=== PATIENT | female | born 1965 | race Caucasian/White ===

== ENCOUNTER 2019-06-16 12:48 | Emergency (ER) | payer OTHER ==
[2019-06-16 13:01] VITALS: BP 128/85; PULSE 94; RESP 18; TEMP 97.7
[2019-06-16] MEDS ORDERED: LIDOCAINE 5% PATCH TOPICAL STA (14:04)
[2019-06-16] MEDS ORDERED: CYCLOBENZAPRINE 10 MG TAB PO STA (14:05)
[2019-06-16] MEDS ORDERED: KETOROLAC 30 MG/ML 1 ML VIAL IM STA (14:05)
--- NOTE | 2019-06-16 14:07 | ED ---
Back Pain HPI - General Chief Complaint: Back Pain/Injury Stated Complaint: Back pain, neck pain Time Seen by Provider: 06/16/19 13:28 Source: patient Limitations: no limitations - History of Present Illness Initial Comments: Patient is a 53-year-old female with history of neck pain presenting to the emergency department with a chief complaint of back pain. Patient reports rec ently sleeping on the floor and is not complaining of left lower back pain that radiates along the posterior aspect of the left lower extremity to the foot. Patient reports pain is exacerbated with ambulation alleviated whenever she is laying on her right side. Patient denies urinary or bowel incontinence. Denies saddle anesthesia. No red flags. Denies taking any medication to alleviate his symptoms. The symptoms of initial been going on for about a week, on and off. Denies trauma to the region. Denied chest pain, shortness of breath, abdominal pain, extremity weakness or paresthesias. - Related Data Previous Rx's Medication Instructions Recorded Albuterol Inhaler [Ventolin Hfa 1 puff INHALATION RT-TID PRN #200 12/22/13 Inhaler] dose Citalopram Hydrobromide [CeleXA] 10 mg PO DAILY #15 tab 12/22/13 Sulfamethox-Tmp 800-160Mg [Bactrim 1 each PO BID #8 tab 12/22/13 DS 800-160 mg] carBAMazepine [Carbatrol] 100 mg PO BID #30 cpmp.12hr 12/22/13 chlordiazePOXIDE HCl [Librium] 5 mg PO BID #6 cap 12/22/13 Cyclobenzaprine [Flexeril] 5 mg PO TID PRN #15 tablet 06/16/19 Allergies Allergy/AdvReac Type Severity Reaction Status Date / Time Penicillins Allergy Rash/Hives Verified 06/16/19 12:57 sertraline HCl [From Zoloft] Allergy Rash/Hives Verified 06/16/19 12:57 Review of Systems ROS Statement: Those systems with pertinent positive or pertinent negative responses have been documented in the HPI. ROS Other: All systems not noted in ROS Statement are negative. Past Medical History Past Medical History: Asthma, Hypertension, Seizure Disorder History of Any Multi-Drug Resistant Organisms: None Reported Past Surgical History: Section, Tubal Ligation Additional Past Surgical History / Comment(s): ankle, exploratory lap Past Psychological History: Anxiety, Depression Smoking Status: Current every day smoker Past Alcohol Use History: Daily, Heavy Past Drug Use History: Marijuana General Exam Limitations: no limitations General appearance: alert, in no apparent distress Head exam: Present: atraumatic, normocephalic, normal inspection Eye exam: Present: normal appearance, PERRL, EOMI Pupils: Present: normal accommodation ENT exam: Present: normal exam, mucous membranes moist Neck exam: Present: normal inspection, full ROM Respiratory exam: Present: normal lung sounds bilaterally Cardiovascular Exam: Present: regular rate, normal rhythm, normal heart sounds GI/Abdominal exam: Present: soft. Absent: distended, tenderness, guarding Extremities exam: Present: normal inspection, full ROM Back exam: Present: normal inspection, full ROM, paraspinal tenderness (Left paraspinal tenderness). Absent: CVA tenderness (R), CVA tenderness (L), vertebral tenderness Neurological exam: Present: alert, oriented X3 Psychiatric exam: Present: normal affect, normal mood Skin exam: Present: warm, dry, intact, normal color Course Vital Signs 06/16/19 12:58 Temperature 97.7 F Pulse Rate 94 Respiratory 18 Rate Blood Pressure 128/85 O2 Sat by Pulse 97 Oximetry Medical Decision Making - Medical Decision Making Patient is a 53-year-old female with history of back pain presenting to the emergency department with chief complaint of back pain. On exam patient does have tenderness in the left lumbosacral region that appears to be radiating to the heel along the posterior aspect. Patient has a positive leg raise test left side. Suspect the patient to have sciatica type symptoms. This was a gradual onset. Patient given Tylenol, Lidoderm patch and Flexeril. Reevaluation mariluz ent reports improvement in her symptoms that she is able to ambulate to a certain extent. Patient will be discharged with low back exercises advised to follow-up with orthopedics if symptoms not improved. Patient also be given prescription of Flexeril. She was advised not to drive or operate heavy machinery when taking medication. Strict return parameters were thoroughly discussed with patient was understanding and agreeable. Patient advised to follow-up with orthopedics if symptoms not improved. Case discussed with physician. Disposition Clinical Impression: Mechanical back pain Disposition: HOME SELF-CARE Condition: Stable Instructions (If sedation given, give patient instructions): Acute Low Back Pain (ED), Lower Back Exercises (ED), Core Strengthening Exercises (ED) Additional Instructions: Please take prescribed medication as directed. Please follow up with orthopedics. Please return to emergency department if symptoms worsen. Prescriptions: Cyclobenzaprine [Flexeril] 5 mg PO TID PRN #15 tablet PRN Reason: Muscle Spasm Is patient prescribed a controlled substance at d/c from ED?: No Referrals: Theodore Arceo MD [Primary Care Provider] - 1-2 days Braydon Moreno MD [STAFF PHYSICIAN] - 1-2 days Time of Disposition: 14:06
== END 2019-06-16 16:10 | disposition home or self-care (01) ==
LOC: EC 12:48
DX: M54.5 Low back pain (principal); M79.672 Pain in left foot; M79.605 Pain in left leg; F17.200 Nicotine dependence, unspecified, uncomplicated; Z88.0 Allergy status to penicillin; Z88.8 Allergy status to other drugs, medicaments and biological substances
CPT/HCPCS: 99283; 96372; J1885

== ENCOUNTER 2019-07-28 13:29 | Inpatient (IN) | payer OTHER ==
[2019-07-28] MEDS ORDERED: SODIUM CHLORIDE 0.9% 1,000 ML IV STA (14:05)
[2019-07-28] MEDS ORDERED: MORPHINE SULFATE 2 MG/ML SYRINGE IVP STA (14:06)
[2019-07-28] MEDS ORDERED: KETOROLAC 30 MG/ML 1 ML VIAL IVP STA (14:16)
--- NOTE | 2019-07-28 14:19 | ED ---
Seizure HPI - General Chief Complaint: Seizure Stated Complaint: Seizure Time Seen by Provider: 07/28/19 13:59 Source: patient Mode of arrival: EMS Limitations: no limitations - History of Present Illness Initial Comments: 53-year-old female patient with past medical history significant for seizures and coronary artery disease presents to the emergency department today for evaluation after having a seizure. Family member who is present states that the seizure lasted for about a minute. States that she had generalized body shaking and was not responding to his questions. Patient was very tired after the episode. She did not lose bowel or bladder control. Patient states she did bite her tongue. Patient states that she hasn't had her medications in the last 6 months. States that she used to take Lamictal and saw Dr. Garnica for neurology. Patient is currently reporting headache. States that she usually gets a severe headache after having her seizures. Patient does admit to drinking alcohol today. States she drinks alcohol on a daily basis. Patient denies any recent rash, fever, chills, shortness breath, chest pain, abdominal pain, nausea, vomiting, diarrhea, constipation, back pain, numbness, tingling, dizziness, weakness, hematuria, dysuria, urinary urgency, urinary frequency, visual changes, or any other complaints. - Related Data Home Medications Medication Instructions Recorded Confirmed No Known Home Medications 07/28/19 07/28/19 Allergies Allergy/AdvReac Type Severity Reaction Status Date / Time Penicillins Allergy Rash/Hives/ Verified 07/28/19 17:37 Swelling sertraline HCl [From Zoloft] Allergy Rash/Hives/ Verified 07/28/19 17:37 Swelling Review of Systems ROS Statement: Those systems with pertinent positive or pertinent negative responses have been documented in the HPI. ROS Other: All systems not noted in ROS Statement are negative. Past Medical History Past Medical History: Asthma, Hypertension, Seizure Disorder History of Any Multi-Drug Resistant Organisms: None Reported Past Surgical History: Section, Tubal Ligation Additional Past Surgical History / Comment(s): ankle, exploratory lap Past Psychological History: Anxiety, Depression Smoking Status: Current every day smoker Past Alcohol Use History: Daily, Heavy Past Drug Use History: Marijuana General Exam Limitations: no limitations General appearance: alert, in no apparent distress, other (This is a well- developed, well-nourished, nontoxic-appearing adult female patient in no acute distress. Vital signs upon presentation are temperature 97.9F, pulse 85, respirations 16, blood pressure 160/102, pulse ox 97% on room air.) Eye exam: Present: normal appearance, PERRL, EOMI. Absent: scleral icterus, conjunctival injection, periorbital swelling ENT exam: Present: normal exam, normal oropharynx, mucous membranes moist Respiratory exam: Present: normal lung sounds bilaterally. Absent: respiratory distress, wheezes, rales, rhonchi, stridor Cardiovascular Exam: Present: regular rate, normal rhythm, normal heart sounds. Absent: systolic murmur, diastolic murmur, rubs, gallop, clicks GI/Abdominal exam: Present: soft, normal bowel sounds. Absent: distended, tende rness, guarding, rebound, rigid Neurological exam: Present: alert, oriented X3, CN II-XII intact, other (Strength in all 4 extremities is 5/5.) Psychiatric exam: Present: normal affect, normal mood Skin exam: Present: warm, dry, intact, normal color. Absent: rash Course Vital Signs 07/28/19 07/28/19 07/28/19 13:31 15:30 17:50 Temperature 97.9 F Pulse Rate 85 76 76 Respiratory 16 16 16 Rate Blood Pressure 160/102 187/89 128/84 O2 Sat by Pulse 97 99 100 Oximetry Medical Decision Making - Medical Decision Making 53-year-old female patient presented to the emergency department today for evaluation after having a seizure. Physical examination was unremarkable. She is neurologically intact with no focal deficits. Patient did smell strongly of alcohol, does admit to drinking alcohol today. Labs reviewed and did reveal decreased sodium, elevated liver enzymes, and elevated alcohol level. Case was discussed with neurology who recommended starting Vimpat 100 mg twice daily. She'll be admitted for further evaluation and monitoring. Alcohol withdrawal protocol has been initiated. - Lab Data Result diagrams: 07/28/19 14:07/28/19: Lab Results 07/28/19 07/28/19 07/28/19 Range/Units :: 14: WBC 6.2 (3.8-10.6) k/uL RBC 4.73 (3.80-5.40) m/uL Hgb 15.8 (11.4-16.0) gm/dL Hct 47.4 H (34.0-46.0) % MCV 100.4 H (80.0-100.0) fL MCH 33.5 (25.0-35.0) pg MCHC 33.4 (31.0-37.0) g/dL RDW 13.1 (11.5-15.5) % Plt Count 181 (150-450) k/uL Neutrophils % (Manual) 50 % Band Neutrophils % 4 % Lymphocytes % (Manual) 31 % Monocytes % (Manual) 13 % Eosinophils % (Manual) 2 % Metamyelocytes % 1 % Neutrophils # (Manual) 3.30 (1.3-7.7) k/uL Lymphocytes # (Manual) 1.92 (1.0-4.8) k/uL Monocytes # (Manual) 0.81 (0-1.0) k/uL Eosinophils # (Manual) 0.12 (0-0.7) k/uL Metamyelocytes # (Man) 0.06 H (0) k/uL Nucleated RBCs 0 (0-0) /100 WBC Manual Slide Review Performed Sodium 130 L (137-145) mmol/L Potassium 4.2 (3.5-5.1) mmol/L Chloride 92 L (98-107) mmol/L Carbon Dioxide 20 L (22-30) mmol/L Anion Gap 18 mmol/L BUN 4 L (7-17) mg/dL Creatinine 0.29 L (0.52-1.04) mg/dL Est GFR (CKD-EPI)AfAm >90 (>60 ml/min/1.73 sqM) Est GFR (CKD-EPI)NonAf >90 (>60 ml/min/1.73 sqM) Glucose 118 H (74-99) mg/dL Calcium 9.3 (8.4-10.2) mg/dL Total Bilirubin 0.8 (0.2-1.3) mg/dL AST 408 H (14-36) U/L ALT 341 H (4-34) U/L Alkaline Phosphatase 72 (38-126) U/L Total Protein 8.4 H (6.3-8.2) g/dL Albumin 5.4 H (3.5-5.0) g/dL Urine Color Light Yellow Urine Appearance Clear (Clear) Urine pH 6.0 (5.0-8.0) Ur Specific [place] 1.005 (1.001-1.035) Urine Protein Negative (Negative) Urine Glucose (UA) Negative (Negative) Urine Ketones Negative (Negative) Urine Blood Negative (Negative) Urine Nitrite Negative (Negative) Urine Bilirubin Negative (Negative) Urine Urobilinogen <2.0 (<2.0) mg/dL Ur Leukocyte Esterase Negative (Negative) Serum Alcohol 344 H* mg/dL Disposition Clinical Impression: Seizure Disposition: ADMITTED IP TO THIS HOSP Condition: Serious Referrals: Theodore Arceo MD [Primary Care Provider] - 1-2 days Decision to Admit Reason: Admit from EC Decision Date: 07/28/19 Decision Time: 17:57
[2019-07-28 15:08] LABS: Appearance,Urine Clear (Clear); Bilirubin,Urine Negative (Negative); Blood,Urine Negative (Negative); Color,Urine Light Yellow; Glucose,Urine (UA) Negative (Negative); Ketones,Urine Negative (Negative); Leukocyte Esterase,Urine Negative (Negative); Nitrite,Urine Negative (Negative); Protein,Urine Negative (Negative); Specific Gravity,Urine 1.005 (1.001-1.035); Urobilinogen,Urine <2.0 mg/dL (<2.0)
[2019-07-28 15:15] LABS: ALT 341 U/L (4-34); AST 408 U/L (14-36); African American GFR (CKD) >90 (>60 ml/min/1.73 sqM); Albumin 5.4 g/dL (3.5-5.0); Alkaline Phosphatase 72 U/L (38-126); Anion Gap 18 mmol/L; Blood Urea Nitrogen 4 mg/dL (7-17); Calcium 9.3 mg/dL (8.4-10.2); Carbon Dioxide 20 mmol/L (22-30); Chloride 92 mmol/L (98-107); Glucose 118 mg/dL (74-99); Non-African American GFR(CKD) >90 (>60 ml/min/1.73 sqM); Potassium 4.2 mmol/L (3.5-5.1); Sodium 130 mmol/L (137-145); Total Bilirubin 0.8 mg/dL (0.2-1.3); Total Protein 8.4 g/dL (6.3-8.2)
[2019-07-28 15:16] LABS: HCT 47.4 % (34.0-46.0); HGB 15.8 gm/dL (11.4-16.0); MCH 33.5 pg (25.0-35.0); MCHC 33.4 g/dL (31.0-37.0); MCV 100.4 fL (80.0-100.0); Mean Platelet Volume 7.8; Platelet Count 181 k/uL (150-450); RBC 4.73 m/uL (3.80-5.40); RDW 13.1 % (11.5-15.5); WBC 6.2 k/uL (3.8-10.6)
[2019-07-28 15:25] LABS: Alcohol 344 mg/dL
[2019-07-28 16:07] LABS: Band Neutrophils % 4 %; Eosinophils # (M) 0.12 k/uL (0-0.7); Lymphocytes # (M) 1.92 k/uL (1.0-4.8); Metamyelocytes # (M) 0.06 k/uL (0); Metamyelocytes % 1 %; Monocytes # (M) 0.81 k/uL (0-1.0); Neutrophils % (M) 50 %; Nucleated Red Blood Cells 0 /100 WBC (0-0); Total Cells Counted 200
[2019-07-28] MEDS ORDERED: ACETAMINOPHEN TAB 500 MG TAB PO STA (17:31)
[2019-07-28] MEDS ORDERED: NALOXONE 0.4 MG/ML 1 ML VIAL IV PRN (17:52)
[2019-07-28] MEDS ORDERED: ONDANSETRON 4 MG/2 ML VIAL IVP PRN (17:52)
[2019-07-28] MEDS ORDERED: SODIUM CHLORIDE 0.9% 1,000 ML with MVI, ADULT NO.4 WITH VIT K 10 ML, THIAMINE 100 MG, F... IV ONE ×4 (17:55)
[2019-07-28] MEDS ORDERED: THIAMINE 100 MG/ML 2 ML VIAL IM STA (17:55)
[2019-07-28] MEDS ORDERED: LORazepam 2 MG/ML INJ IV PRN ×2 (17:55)
[2019-07-28] MEDS ORDERED: LACOSAMIDE 50 MG TABLET PO STA (17:55)
[2019-07-28] MEDS: IBUPROFEN 800 MG TAB PO PRN (18:56)
--- NOTE | 2019-07-28 19:47 | P.CNNES ---
History of Present Illness Consult date: 07/28/19 Requesting physician: Master Davies Reason for Consult: Seizure disorder, alcoholism History of Present Illness: Patient is a 53-year-old female, who states that she has history of seizure disorder since 2006. Patient has been on Keppra 500 mg twice a day. Patient has not been getting refills of her Keppra for the past 3 months. Patient also has history of alcoholism since 89. Patient states that she drinks 3 beers a day. Patient came to the hospital because she was at home, sitting, tried to get up and woke up in the hospital. Patient probably had a seizure. Patient is edentulous, therefore did not bite her tongue. EKG showed normal sinus rhythm. Patient denies headache or any focal symptoms. Patient's blood test shows normal CBC with elevated MCV 100.4. Sodium 130 potassium 4.2, normal renal f unctions. AST is elevated 408, ALT 341. Her blood alcohol level is 344. Patient does use marijuana, but denies any cocaine and crack. Review of Systems Denies headache problem with the vision, sore throat or dysphagia. Denies any numbness tingling focal weakness. Past Medical History Past Medical History: Asthma, Hypertension, Seizure Disorder History of Any Multi-Drug Resistant Organisms: None Reported Past Surgical History: Section, Tubal Ligation Additional Past Surgical History / Comment(s): ankle, exploratory lap Past Psychological History: Anxiety, Depression Smoking Status: Current every day smoker Past Alcohol Use History: Daily, Heavy Past Drug Use History: Marijuana Medications and Allergies Home Medications Medication Instructions Recorded Confirmed Type No Known Home Medications 07/28/19 07/28/19 History Allergies Allergy/AdvReac Type Severity Reaction Status Date / Time Penicillins Allergy Rash/Hives/ Verified 07/28/19 17:37 Swelling sertraline HCl [From Zoloft] Allergy Rash/Hives/ Verified 07/28/19 17:37 Swelling Physical Examination - Vital Signs Vital Signs: Vital Signs Temp Pulse Pulse Resp BP BP Pulse Ox 07/28/19 18:58 97 F L 70 16 126/82 96 07/28/19 18:36 86 16 128/73 99 07/28/19 17:50 76 16 128/84 100 07/28/19 15:30 76 16 187/89 99 07/28/19 13:31 97.9 F 85 16 160/102 97 Intake and Output 07/28/19 07/28/19 07/28/19 06:59 14:59 22:59 Other: Weight 45.359 kg On examination patient is a middle aged female, who appears older than her stated age. Patient is alert and awake oriented times his and person. Speech and language functions are normal. Recent and remote memory normal attention and concentration fund of knowledge is adequate. On cranial nerves admission pupils are round and reactive to light, visual lund are full. Extraocular muscles are intact. Face is symmetric, tongue protrudes the midline. Palatal elevation and sensation normal. On muscle strength testing there is no pronator drift and the strength is normal in arms and legs reflexes are 1+ and plantars downgoing. Sensory to touch is equal. No ataxia for finger to nose testing. Tone and bulk of muscles normal. No carotid bruit or murmur. Peripheral pulses present. Results - Laboratory Findings CBC and BMP: 07/28/19 14:20 07/28/19 14:20 Abnormal Lab Findings: Abnormal Labs 07/28/19 07/28/19 14:20 14:20 Hct 47.4 H MCV 100.4 H Metamyelocytes # (Man) 0.06 H Sodium 130 L Chloride 92 L Carbon Dioxide 20 L BUN 4 L Creatinine 0.29 L Glucose 118 H AST 408 H ALT 341 H Total Protein 8.4 H Albumin 5.4 H Serum Alcohol 344 H* Assessment and Plan Assessment: * 53-year-old female with long-standing history of alcoholism since age 18 also has seizure disorder since 2006, came with breakthrough seizure. Patient has ran out of her seizure medication for the last 3 months. Patient was also intoxicated with alcohol level of 344. Plan: * Resume Keppra 500 mg twice a day. * Thiamine, folate, multivitamins. * Watch for alcohol withdrawal. * Patient was informed of [place] state law of no driving unless seizure free for 6 months, operating dangerous machinery, climbing ladders or unsupervised swimming.
[2019-07-28] MEDS: levETIRAcetam 500 MG TAB PO SCH (21:10)
--- NOTE | 2019-07-28 22:44 | P.HPIM ---
History of Present Illness H&P Date: 07/28/19 Chief Complaint: Seizures This is a 53-year-old female with history of seizure disorder patient has been on Keppra in the past, patient came into the hospital intoxicated on: Level was very high she consume multiple beers, her labs are significant for elevated liver enzymes, she is arousable and no obvious distress present, her Kwell level is 344 Review of Systems All systems: negative Past Medical History Past Medical History: Asthma, Hypertension, Seizure Disorder History of Any Multi-Drug Resistant Organisms: None Reported Past Surgical History: Section, Tubal Ligation Additional Past Surgical History / Comment(s): ankle, exploratory lap Past Psychological History: Anxiety, Depression Smoking Status: Current every day smoker Past Alcohol Use History: Daily, Heavy Past Drug Use History: Marijuana Medications and Allergies Home Medications Medication Instructions Recorded Confirmed Type No Known Home Medications 07/28/19 07/28/19 History Allergies Allergy/AdvReac Type Severity Reaction Status Date / Time Penicillins Allergy Rash/Hives/ Verified 07/28/19 21:21 Swelling sertraline HCl [From Zoloft] Allergy Rash/Hives/ Verified 07/28/19 21:22 Swelling Physical Exam Vitals: Vital Signs Temp Pulse Pulse Resp BP BP Pulse Ox 07/28/19 19:44 97.9 F 79 18 119/60 97 07/28/19 18:58 97 F L 70 16 126/82 96 07/28/19 18:36 86 16 128/73 99 07/28/19 17:50 76 16 128/84 100 07/28/19 15:30 76 16 187/89 99 07/28/19 13:31 97.9 F 85 16 160/102 97 Intake and Output 07/28/19 07/28/19 07/28/19 06:59 14:59 22:59 Other: Weight 45.359 kg - Constitutional General appearance: average body habitus, cooperative, disheveled, no acute distress - EENT Eyes: EOMI, PERRLA ENT: normal oropharynx Ears: bilateral: normal - Neck Neck: normal ROM Carotids: bilateral: upstroke normal Thyroid: bilateral: normal size - Respiratory Respiratory: bilateral: CTA - Cardiovascular Rhythm: regular Heart sounds: normal: S1, S2 - Gastrointestinal General gastrointestinal: normal bowel sounds, soft - Neurologic Neurologic: CNII-XII intact - Musculoskeletal Musculoskeletal: gait normal, generalized weakness - Psychiatric Psychiatric: A&O x's 3, appropriate affect, intact judgment & insight Results CBC & Chem 7: 07/28/19 14:20 07/28/19 14:20 Labs: Abnormal Lab Results - Last 24 Hours (Table) 07/28/19 07/28/19 Range/Units 14:20 14:20 Hct 47.4 H (34.0-46.0) % MCV 100.4 H (80.0-100.0) fL Metamyelocytes # (Man) 0.06 H (0) k/uL Sodium 130 L (137-145) mmol/L Chloride 92 L (98-107) mmol/L Carbon Dioxide 20 L (22-30) mmol/L BUN 4 L (7-17) mg/dL Creatinine 0.29 L (0.52-1.04) mg/dL Glucose 118 H (74-99) mg/dL AST 408 H (14-36) U/L ALT 341 H (4-34) U/L Total Protein 8.4 H (6.3-8.2) g/dL Albumin 5.4 H (3.5-5.0) g/dL Serum Alcohol 344 H* mg/dL Assessment and Plan Assessment: Acute seizure with baseline history of seizure disorder Alcohol intoxication Alcohol-induced liver injury/hepatitis Hyponatremia Plan: MVI and thiamine and folic acid Continue gentle hydration Repeat labs in the morning Resume Keppra for seizures Seizure precautions Monitor observe for alcohol withdrawal Further evaluation and recommendations pending plan of care as per clinical response of the patient Time with Patient: Greater than 30
[2019-07-29] MEDS: THIAMINE 100 MG TAB PO SCH ×3 (01:17→16:18)
[2019-07-29 06:35] LABS: Basophils % (A) 1 %; Eosinophils # (A) 0.1 k/uL (0-0.7); Eosinophils % (A) 2 %; HCT 41.5 % (34.0-46.0); HGB 14.2 gm/dL (11.4-16.0); Lymphocytes # (A) 1.3 k/uL (1.0-4.8); Lymphocytes % (A) 31 %; MCH 34.9 pg (25.0-35.0); MCHC 34.3 g/dL (31.0-37.0); MCV 101.7 fL (80.0-100.0); Macrocytosis Slight; Mean Platelet Volume 7.1; Monocytes # (A) 0.5 k/uL (0-1.0); Monocytes % (A) 11 %; Neutrophils # (A) 2.1 k/uL (1.3-7.7); Neutrophils % (A) 51 %; Platelet Count 166 k/uL (150-450); RBC 4.08 m/uL (3.80-5.40); RDW 13.2 % (11.5-15.5)
[2019-07-29 06:44] LABS: ALT 259 U/L (4-34); AST 296 U/L (14-36); African American GFR (CKD) >90 (>60 ml/min/1.73 sqM); Alkaline Phosphatase 53 U/L (38-126); Anion Gap 8 mmol/L; Blood Urea Nitrogen 5 mg/dL (7-17); Carbon Dioxide 24 mmol/L (22-30); Chloride 103 mmol/L (98-107); Glucose 81 mg/dL (74-99); Magnesium 1.9 mg/dL (1.6-2.3); Non-African American GFR(CKD) >90 (>60 ml/min/1.73 sqM); Sodium 135 mmol/L (137-145); Total Bilirubin 1.3 mg/dL (0.2-1.3); Total Protein 6.3 g/dL (6.3-8.2)
[2019-07-29] MEDS ORDERED: LACOSAMIDE 50 MG TABLET PO SCH (09:00)
[2019-07-29 09:21] VITALS: RESP 18
[2019-07-29] MEDS: levETIRAcetam 500 MG TAB PO SCH ×2 (09:27→19:53)
[2019-07-29] MEDS: IBUPROFEN 800 MG TAB PO PRN ×2 (09:27→16:18)
[2019-07-29] MEDS: LORazepam 2 MG/ML INJ IV PRN ×6 (09:29→22:50)
[2019-07-29 10:23] VITALS: BMI 19.8
--- NOTE | 2019-07-29 10:44 | P.PN ---
Subjective Progress Note Date: 07/29/19 Principal diagnosis: Acute seizure with baseline history of seizure disorder Alcohol intoxication Alcohol-induced liver injury/hepatitis Hyponatremia 07/29/2019, patient is awake and alert but slightly tremulous, denies any chest pain is feeling slightly anxious, patient has been placed on Cipro protocol, labs reviewed medications reviewed, hyponatremia as well as liver function continued to improve This is a 53-year-old female with history of seizure disorder patient has been on Keppra in the past, patient came into the hospital intoxicated on: Level was very high she consume multiple beers, her labs are significant for elevated liver enzymes, she is arousable and no obvious distress present, her Kwell level is 344 Objective - Vital Signs Vital signs: Vital Signs Temp 98.3 F 07/29/19 08:00 Pulse 79 07/29/19 08:00 Resp 18 07/29/19 08:00 BP 119/75 07/29/19 08:00 Pulse Ox 95 07/29/19 08:00 Intake & Output 07/28/19 07/29/19 07/29/19 18:59 06:59 18:59 Intake Total 240 Output Total 340 Balance -340 240 Weight 45.359 kg 46.2 kg 46.2 kg Intake: Oral 240 Output: Urine 340 Other: Voiding Method Toilet Toilet # Voids 1 - Exam - Constitutional General appearance: average body habitus, cooperative, disheveled, no acute distress - EENT Eyes: EOMI, PERRLA ENT: normal oropharynx Ears: bilateral: normal - Neck Neck: normal ROM Carotids: bilateral: upstroke normal Thyroid: bilateral: normal size - Respiratory Respiratory: bilateral: CTA - Cardiovascular Rhythm: regular Heart sounds: normal: S1, S2 - Gastrointestinal General gastrointestinal: normal bowel sounds, soft - Neurologic Neurologic: CNII-XII intact - Musculoskeletal Musculoskeletal: gait normal, generalized weakness - Psychiatric Psychiatric: A&O x's 3, appropriate affect, intact judgment & insight - Labs CBC & Chem 7: 07/29/19 06:18 07/29/19 06:18 Labs: Abnormal Lab Results - Last 24 Hours (Table) 07/28/19 07/28/19 07/29/19 Range/Units 14:20 14: 06:18 Hct 47.4 H (34.0-46.0) % MCV 100.4 H (80.0-100.0) fL Metamyelocytes # (Man) 0.06 H (0) k/uL Sodium 130 L 135 L (137-145) mmol/L Chloride 92 L (98-107) mmol/L Carbon Dioxide 20 L (22-30) mmol/L BUN 4 L 5 L (7-17) mg/dL Creatinine 0.29 L 0.39 L (0.52-1.04) mg/dL Glucose 118 H (74-99) mg/dL AST 408 H 296 H (14-36) U/L ALT 341 H 259 H (4-34) U/L Total Protein 8.4 H (6.3-8.2) g/dL Albumin 5.4 H (3.5-5.0) g/dL Serum Alcohol 344 H* mg/dL 07/29/19 Range/Units 06:18 Hct (34.0-46.0) % MCV 101.7 H (80.0-100.0) fL Metamyelocytes # (Man) (0) k/uL Sodium (137-145) mmol/L Chloride (98-107) mmol/L Carbon Dioxide (22-30) mmol/L BUN (7-17) mg/dL Creatinine (0.52-1.04) mg/dL Glucose (74-99) mg/dL AST (14-36) U/L ALT (4-34) U/L Total Protein (6.3-8.2) g/dL Albumin (3.5-5.0) g/dL Serum Alcohol mg/dL Assessment and Plan Assessment: Acute seizure with baseline history of seizure disorder Alcohol intoxication Alcohol-induced liver injury/hepatitis Hyponatremia Plan: MVI and thiamine and folic acid Continue gentle hydration Repeat labs in the morning Resume Keppra for seizures Seizure precautions Monitor observe for alcohol withdrawal Further evaluation and recommendations pending plan of care as per clinical response of the patient Time with Patient: Greater than 30
[2019-07-29] MEDS: NICOTINE 21MG/24HR PATCH TRANSDERM SCH (16:25)
[2019-07-30] MEDS: LORazepam 2 MG/ML INJ IV PRN ×4 (02:38→15:06)
[2019-07-30] MEDS: THIAMINE 100 MG TAB PO SCH ×2 (06:23→15:05)
[2019-07-30] MEDS: levETIRAcetam 500 MG TAB PO SCH (09:50)
[2019-07-30] MEDS: NICOTINE 21MG/24HR PATCH TRANSDERM SCH (09:50)
[2019-07-30 13:09] VITALS: BP 135/91; PULSE 83; TEMP 98.1
== END 2019-07-30 16:50 | disposition left against medical advice (07) | DRG 101 ==
LOC: EC 13:29 → 3SCARD 18:01
PROVIDERS: ADMIT Internal Medicine Sleep Medicine; ATTEND Internal Medicine Sleep Medicine
DX: G40.909 Epilepsy, unspecified, not intractable, without status epilepticus (principal); E87.1 Hypo-osmolality and hyponatremia; K70.10 Alcoholic hepatitis without ascites; F10.229 Alcohol dependence with intoxication, unspecified; F17.200 Nicotine dependence, unspecified, uncomplicated; F32.9 Major depressive disorder, single episode, unspecified; F41.9 Anxiety disorder, unspecified; I10 Essential (primary) hypertension; I25.10 Atherosclerotic heart disease of native coronary artery without angina pectoris; J45.909 Unspecified asthma, uncomplicated; Z79.899 Other long term (current) drug therapy; Z98.51 Tubal ligation status; Z88.0 Allergy status to penicillin; Z88.8 Allergy status to other drugs, medicaments and biological substances; Y90.8 Blood alcohol level of 240 mg/100 ml or more
CPT/HCPCS: 36415; 80053; 80320; 81003; 82140; 83735; 84100; 85025; 93005; 96361; 96374; 96375; 99285

== ENCOUNTER 2019-08-01 22:42 | Emergency (ER) | payer OTHER ==
[2019-08-01 23:00] VITALS: RESP 16
--- NOTE | 2019-08-01 23:14 | ED ---
General Adult HPI - General Chief complaint: Headache Stated complaint: SOB Dizzy/Numbness in arms Time Seen by Provider: 08/01/19 22:44 Source: patient, EMS Mode of arrival: EMS Limitations: no limitations - History of Present Illness Initial comments: This patient is a 53-year-old woman who presents with complaint of having severe headache. Patient had been admitted here last week after she had a seizure and had elevated alcohol level to prevent DTs. The patient states that she signed out AGAINST MEDICAL ADVICE. The patient states she was feeling worse today so she called EMS who brought her back here. Patient denies having any further seizures, though she does admit she is out of her Keppra and has not been taking this. She also does admit to daily drinking. -: days(s) Location: head Quality: aching Consistency: constant Improves with: none Worsens with: none Associated Symptoms: denies other symptoms Treatments Prior to Arrival: none - Related Data Previous Rx's Medication Instructions Recorded levETIRAcetam [Keppra] 500 mg PO Q12HR #30 tab 08/02/19 Allergies Allergy/AdvReac Type Severity Reaction Status Date / Time Penicillins Allergy Rash/Hives/ Verified 07/28/19 21:21 Swelling sertraline HCl [From Zoloft] Allergy Rash/Hives/ Verified 07/28/19 21:22 Swelling Review of Systems ROS Statement: Those systems with pertinent positive or pertinent negative responses have been documented in the HPI. ROS Other: All systems not noted in ROS Statement are negative. Constitutional: Denies: fever, chills, weakness Eyes: Denies: vision change ENT: Denies: ear pain, hearing loss, congestion Respiratory: Denies: cough, dyspnea Cardiovascular: Denies: chest pain, palpitations Gastrointestinal: Denies: abdominal pain, nausea, vomiting Genitourinary: Denies: dysuria Skin: Denies: rash Neurological: Reports: as per HPI, headache, paresthesias. Denies: weakness, numbness, confusion, abnormal gait Past Medical History Past Medical History: Asthma, Hypertension, Seizure Disorder History of Any Multi-Drug Resistant Organisms: None Reported Past Surgical History: Section, Tubal Ligation Additional Past Surgical History / Comment(s): ankle, exploratory lap Past Anesthesia/Blood Transfusion Reactions: No Reported Reaction Past Psychological History: Anxiety, Depression Smoking Status: Current every day smoker Past Alcohol Use History: Daily, Heavy Past Drug Use History: Marijuana - Past Family History Mother Family Medical History: Liver Disease Father Family Medical History: Cancer General Exam Limitations: no limitations General appearance: alert, appears intoxicated Head exam: Present: atraumatic, normocephalic Eye exam: Present: normal appearance, PERRL, EOMI, nystagmus. Absent: scleral icterus, conjunctival injection ENT exam: Present: mucous membranes dry Neck exam: Present: normal inspection, full ROM. Absent: tenderness, meningismus Respiratory exam: Present: normal lung sounds bilaterally. Absent: respiratory distress, wheezes, rales, rhonchi, stridor Cardiovascular Exam: Present: regular rate, normal rhythm, normal heart sounds. Absent: systolic murmur, diastolic murmur, rubs, gallop GI/Abdominal exam: Present: soft. Absent: distended, tenderness, guarding, rebound Extremities exam: Present: normal inspection, normal capillary refill. Absent: pedal edema, calf tenderness Back exam: Present: normal inspection Neurological exam: Present: alert, oriented X3, CN II-XII intact. Absent: motor sensory deficit Skin exam: Present: warm, dry, intact, normal color. Absent: rash Course Vital Signs 08/01/19 22:55 Temperature 97.9 F Pulse Rate 91 Respiratory 16 Rate Blood Pressure 120/68 O2 Sat by Pulse 98 Oximetry EKG Findings - EKG Comments: EKG Findings:: Possible incomplete right bundle branch block. - EKG Results: EKG: interpreted by ERMD, sinus rhythm, normal axis, normal ST/T Medical Decision Making - Lab Data Result diagrams: 08/01/19 23:55 08/01/19 23:55 Lab Results 08/01/19 08/01/19 Range/Units 23:55 23:55 WBC 7.6 (3.8-10.6) k/uL RBC 4.08 (3.80-5.40) m/uL Hgb 13.6 (11.4-16.0) gm/dL Hct 41.5 (34.0-46.0) % MCV 101.8 H (80.0-100.0) fL MCH 33.4 (25.0-35.0) pg MCHC 32.9 (31.0-37.0) g/dL RDW 13.0 (11.5-15.5) % Plt Count 215 (150-450) k/uL Neutrophils % 52 % Lymphocytes % 33 % Monocytes % 10 % Eosinophils % 1 % Basophils % 1 % Neutrophils # 4.0 (1.3-7.7) k/uL Lymphocytes # 2.5 (1.0-4.8) k/uL Monocytes # 0.8 (0-1.0) k/uL Eosinophils # 0.1 (0-0.7) k/uL Basophils # 0.0 (0-0.2) k/uL Macrocytosis Slight Sodium 138 (137-145) mmol/L Potassium 4.0 (3.5-5.1) mmol/L Chloride 103 (98-107) mmol/L Carbon Dioxide 22 (22-30) mmol/L Anion Gap 13 mmol/L BUN 7 (7-17) mg/dL Creatinine 0.37 L (0.52-1.04) mg/dL Est GFR (CKD-EPI)AfAm >90 (>60 ml/min/1.73 sqM) Est GFR (CKD-EPI)NonAf >90 (>60 ml/min/1.73 sqM) Glucose 95 (74-99) mg/dL Calcium 9.6 (8.4-10.2) mg/dL Magnesium 1.9 (1.6-2.3) mg/dL Total Bilirubin 0.3 (0.2-1.3) mg/dL AST 100 H (14-36) U/L ALT 143 H (4-34) U/L Alkaline Phosphatase 75 (38-126) U/L Total Protein 7.0 (6.3-8.2) g/dL Albumin 4.6 (3.5-5.0) g/dL Serum Alcohol 210 H* mg/dL Disposition Clinical Impression: Headache Disposition: HOME SELF-CARE Condition: Fair Instructions (If sedation given, give patient instructions): Acute Headache (ED) Prescriptions: levETIRAcetam [Keppra] 500 mg PO Q12HR #30 tab Is patient prescribed a controlled substance at d/c from ED?: No Referrals: Theodore Arceo MD [Primary Care Provider] - 1-2 days
[2019-08-01] MEDS ORDERED: SODIUM CHLORIDE 0.9% 1,000 ML IV ONE (23:40)
[2019-08-01] MEDS: METOCLOPRAMIDE 5 MG/ML 2 ML VIAL IVP STA (23:53)
[2019-08-02] MEDS: METOCLOPRAMIDE 5 MG/ML 2 ML VIAL IVP STA (00:01)
[2019-08-02] MEDS ORDERED: METOCLOPRAMIDE 5 MG/ML 2 ML VIAL IVP STA (00:03)
[2019-08-02 00:22] LABS: Basophils % (A) 1 %; Eosinophils # (A) 0.1 k/uL (0-0.7); Eosinophils % (A) 1 %; HCT 41.5 % (34.0-46.0); HGB 13.6 gm/dL (11.4-16.0); Lymphocytes # (A) 2.5 k/uL (1.0-4.8); Lymphocytes % (A) 33 %; MCH 33.4 pg (25.0-35.0); MCHC 32.9 g/dL (31.0-37.0); MCV 101.8 fL (80.0-100.0); Macrocytosis Slight; Mean Platelet Volume 7.3; Monocytes # (A) 0.8 k/uL (0-1.0); Monocytes % (A) 10 %; Neutrophils % (A) 52 %; Platelet Count 215 k/uL (150-450); RBC 4.08 m/uL (3.80-5.40); WBC 7.6 k/uL (3.8-10.6)
--- NOTE | 2019-08-02 00:40 | CT ---
EXAMINATION TYPE: CT brain wo con DATE OF EXAM: 08/02/2019 COMPARISON: 11/17/2014 HISTORY: SOB Dizzy CT DLP: 1084.4 mGycm Automated exposure control for dose reduction was used. Multiple axial sections were obtained of the brain without contrast. Ventricles have normal size. There is no mass effect nor midline shift. There is no sign of intracran ial hemorrhage. Calvarium is intact. There is no evidence of cerebral edema. IMPRESSION: No acute intracranial abnormality. No change.
[2019-08-02 00:55] LABS: ALT 143 U/L (4-34); AST 100 U/L (14-36); African American GFR (CKD) >90 (>60 ml/min/1.73 sqM); Albumin 4.6 g/dL (3.5-5.0); Alkaline Phosphatase 75 U/L (38-126); Anion Gap 13 mmol/L; Blood Urea Nitrogen 7 mg/dL (7-17); Calcium 9.6 mg/dL (8.4-10.2); Carbon Dioxide 22 mmol/L (22-30); Chloride 103 mmol/L (98-107); Glucose 95 mg/dL (74-99); Magnesium 1.9 mg/dL (1.6-2.3); Non-African American GFR(CKD) >90 (>60 ml/min/1.73 sqM); Sodium 138 mmol/L (137-145); Total Bilirubin 0.3 mg/dL (0.2-1.3)
[2019-08-02] MEDS ORDERED: KETOROLAC 30 MG/ML 1 ML VIAL IVP STA (01:01)
[2019-08-02] MEDS ORDERED: diphenhydrAMINE 50 MG/ML 1 ML VIAL IVP STA (01:01)
[2019-08-02 01:08] LABS: Alcohol 210 mg/dL
[2019-08-02] MEDS ORDERED: levETIRAcetam 500 MG TAB PO ONE (02:00)
[2019-08-02] MEDS ORDERED: THIAMINE 100 MG/ML 2 ML VIAL IM STA (02:52)
[2019-08-02 03:17] VITALS: BP 151/65; PULSE 80; TEMP 98.2
[2019-08-02] MEDS ORDERED: ACETAMINOPHEN TAB 325 MG TAB PO STA (03:27)
[2019-08-02 03:32] LABS: Amphetamine Screen,Urine Not Detected (NotDetected); Barbiturate Screen,Urine Not Detected (NotDetected); Benzodiazepines Screen,Urine Detected (NotDetected); Cocaine Screen,Urine Not Detected (NotDetected); Methadone Screen, Urine Not Detected (NotDetected); Opiate Screen,Urine Not Detected (NotDetected); Oxycodone Screen, Urine Not Detected (NotDetected); Phencyclidine Screen,Urine Not Detected (NotDetected); Tricyclic Antidepressant,Urine Not Detected (NotDetected); Urn Cannabinoid Scrn Detected (NotDetected)
[2019-08-02 03:34] LABS: Appearance,Urine Clear (Clear); Color,Urine Yellow; Protein,Urine Negative (Negative)
[2019-08-02 03:35] LABS: Bilirubin,Urine Negative (Negative); Blood,Urine Negative (Negative); Glucose,Urine (UA) Negative (Negative); Ketones,Urine Negative (Negative); Leukocyte Esterase,Urine Negative (Negative); Nitrite,Urine Negative (Negative); Urobilinogen,Urine <2.0 mg/dL (<2.0)
== END 2019-08-02 03:31 | disposition home or self-care (01) ==
LOC: EC 22:42
DX: R51 Headache (principal); R06.02 Shortness of breath; R42 Dizziness and giddiness; R20.0 Anesthesia of skin; I10 Essential (primary) hypertension; F17.200 Nicotine dependence, unspecified, uncomplicated; Z88.0 Allergy status to penicillin; Z88.8 Allergy status to other drugs, medicaments and biological substances
CPT/HCPCS: 36415; 93005; 80053; 83735; 85025; 81003; 80306; 70450; 99284; 96374; 96375 ×2; 96361 ×2; 96372; G0480; J1200; J2765; J3411; J1885; 80320

== ENCOUNTER 2019-08-26 11:41 | Emergency (ER) | payer OTHER ==
[2019-08-26 12:12] VITALS: BP 136/94; PULSE 80; RESP 18; TEMP 97.5
[2019-08-26] MEDS ORDERED: HYDROcodone/APAP 5-325MG 1 EACH TAB PO STA (12:23)
--- NOTE | 2019-08-26 12:26 | ED ---
Upper Extremity HPI - General Chief Complaint: Extremity Injury, Upper Stated Complaint: Left Hand Injury Time Seen by Provider: 08/26/19 12:13 Source: patient, RN notes reviewed, old records reviewed Mode of arrival: ambulatory Limitations: no limitations - History of Present Illness Initial Comments: Patient is a 33-year-old female presents emergency department today with left hand pain. Patient reports that she hurt her hand against a machine last night while at work. 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 Patient reports that throughout the night she's had increased swelling over the dorsum of her left hand. Patient is right-handed. Patient denies any other complaints. - Related Data Previous Rx's Medication Instructions Recorded levETIRAcetam [Keppra] 500 mg PO Q12HR #30 tab 08/02/19 Ibuprofen [Motrin] 600 mg PO Q8HR PRN #30 tab 08/26/19 Allergies Allergy/AdvReac Type Severity Reaction Status Date / Time Penicillins Allergy Rash/Hives/ Verified 08/26/19 12:13 Swelling sertraline HCl [From Zoloft] Allergy Rash/Hives/ Verified 08/26/19 12:13 Swelling Review of Systems ROS Statement: Those systems with pertinent positive or pertinent negative responses have been documented in the HPI. ROS Other: All systems not noted in ROS Statement are negative. Past Medical History Past Medical History: Asthma, Hypertension, Seizure Disorder History of Any Multi-Drug Resistant Organisms: None Reported Past Surgical History: Section, Tubal Ligation Additional Past Surgical History / Comment(s): ankle, exploratory lap Past Anesthesia/Blood Transfusion Reactions: No Reported Reaction Past Psychological History: Anxiety, Depression Smoking Status: Current every day smoker Past Alcohol Use History: Daily, Heavy Past Drug Use History: Marijuana - Past Family History Mother Family Medical History: Liver Disease Father Family Medical History: Cancer General Exam - General Exam Comments Initial Comments: Pleasant 53-year-old female. No distress. Limitations: no limitations General appearance: alert, in no apparent distress Head exam: Present: atraumatic, normocephalic, normal inspection Eye exam: Present: normal appearance, PERRL, EOMI. Absent: scleral icterus, conjunctival injection, periorbital swelling ENT exam: Present: normal exam, mucous membranes moist Neck exam: Present: normal inspection. Absent: tenderness, meningismus, lymphadenopathy Respiratory exam: Present: normal lung sounds bilaterally. Absent: respiratory distress, wheezes, rales, rhonchi, stridor Cardiovascular Exam: Present: regular rate, normal rhythm, normal heart sounds. Absent: systolic murmur, diastolic murmur, rubs, gallop, clicks GI/Abdominal exam: Present: soft, normal bowel sounds. Absent: distended, tenderness, guarding, rebound, rigid Extremities exam: Present: normal inspection, full ROM, normal capillary refill. Absent: tenderness, pedal edema, joint swelling, calf tenderness Left Elbow exam: Present: normal inspection, full ROM Forearm Wrist exam: Present: normal inspection, full ROM Hand Wrist exam: Present: normal inspection, tenderness, swelling (over dorsum of hand). Absent: full ROM (limited) Neuro motor exam: Present: wrist extension intact, thumb opposition intact, thumb IP flexion intact, thumb adduction intact, fingers 2-5 abduction intact Vascular: Present: normal capillary refill Back exam: Present: normal inspection Neurological exam: Present: alert, oriented X3, CN II-XII intact Psychiatric exam: Present: normal affect, normal mood Skin exam: Present: warm, dry, intact, normal color. 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 Patient reports that she was at work, and hit her dorsum aspect of her hand on a metal part while trying to pull apart and another piece of equipment. Patient reports that she noticed minor swelling left side but is significantly worsened through the past day. She reports pain with range of motion. She is neurovascularly intact. Patient's x-ray shows no evidence of fracture. Patient was placed in Cassius wrap and splint to help support the wrist and hand and minimize swelling. Discussed treatment with a temperature medication and ice. - Radiology Data Radiology results: report reviewed No acute fracture dislocation and left hand. Mild arthropathy and distribution loss or arthritis. Minimal dorsal soft tissue swelling. No foreign body. Disposition Clinical Impression: Hand contusion, Arthritis of hand Disposition: HOME SELF-CARE Condition: Good Instructions (If sedation given, give patient instructions): Contusion in Adults (ED), Hand Sprain (ED) Additional Instructions: Please use medication as discussed. Please follow up with family doctor if symptoms have not improved over the next two days. Please return to the emergency room if your symptoms increase or worsen or for any other concerns. Prescriptions: Ibuprofen [Motrin] 600 mg PO Q8HR PRN #30 tab PRN Reason: Pain Is patient prescribed a controlled substance at d/c from ED?: No Referrals: Theodore Arceo MD [Primary Care Provider] - 1-2 days Wagner Fatima PAC [PHYSICIAN SALES COUNSELOR] - 1-2 days Time of Disposition: 12:56
--- NOTE | 2019-08-26 12:50 | XR ---
EXAMINATION TYPE: XR hand complete LT DATE OF EXAM: 08/26/2019 CLINICAL HISTORY: Left hand machine injury. Left hand pain. TECHNIQUE: Frontal, lateral and oblique images of the left hand are obtained. COMPARISON: None. FINDINGS: There is no acute fracture/dislocation evident in the left hand. The joint spaces in the l eft hand appear aligned. Minimal degenerative changes are seen of the distal interphalangeal joints a nd first metacarpal phalangeal joint with osseous proliferative change and joint space narrowing The overlying soft tissues demonstrate minimal dorsal soft tissue swelling over the metacarpals on the la teral view with no radiopaque foreign body seen. Very mild negative ulnar variance incidentally noted . IMPRESSION: There is no acute fracture or dislocation in the left hand. Mild arthropathy in the dist ribution of osteoarthritis. Minimal dorsal soft tissue swelling. No radio opaque foreign body.
[2019-08-26] MEDS ORDERED: ACET/COD 300 MG/30 MG STARTER PACK 6 TAB BTL PO STA (13:06)
== END 2019-08-26 13:20 | disposition home or self-care (01) ==
LOC: EC 11:41
DX: M19.042 Primary osteoarthritis, left hand (principal); S60.222A Contusion of left hand, initial encounter; I10 Essential (primary) hypertension; F17.200 Nicotine dependence, unspecified, uncomplicated; Z88.0 Allergy status to penicillin; Z88.8 Allergy status to other drugs, medicaments and biological substances; W22.8XXA Striking against or struck by other objects, initial encounter; Y92.69 Other specified industrial and construction area as the place of occurrence of the external cause; Y99.0 Civilian activity done for income or pay
CPT/HCPCS: 29125; 99284

== ENCOUNTER 2020-04-10 17:08 | Inpatient (IN) | payer OTHER ==
[2020-04-10] MEDS ORDERED: LORazepam 2 MG/ML INJ IV STA ×2 (17:49→18:46)
[2020-04-10] MEDS ORDERED: SODIUM CHLORIDE 0.9% 1,000 ML with MVI, ADULT NO.4 WITH VIT K 10 ML, THIAMINE 100 MG, F... IV ONE ×4 (17:49)
--- NOTE | 2020-04-10 18:01 | ED ---
Psych HPI - General Chief Complaint: Psychiatric Symptoms Stated Complaint: Mental Health Time Seen by Provider: 04/10/20 17:24 Source: patient Mode of arrival: ambulatory - History of Present Illness Initial Comments: this a 54-year-old female history of alcohol abuse and depression who is here today for evaluation she states she just tired of drinking and smoking she feels very depressed she feels her angry like she might want to hurt someone.. She states her last drink was just before coming in today. She denies any fevers or chills she does have some shakes she has had alcohol withdrawal problems before. He states she's chilled especially bad last 3 days. She also states she's had some diarrhea she does feel like she is losing control of everything. She is tearful during the evaluation MD Complaint: feels depressed, other - Related Data Previous Rx's Medication Instructions Recorded levETIRAcetam [Keppra] 500 mg PO Q12HR #30 tab 08/02/19 Ibuprofen [Motrin] 600 mg PO Q8HR PRN #30 tab 08/26/19 Allergies Allergy/AdvReac Type Severity Reaction Status Date / Time Penicillins Allergy Rash/Hives/ Verified 04/10/20 17:30 Swelling sertraline HCl [From Zoloft] Allergy Rash/Hives/ Verified 04/10/20 17:30 Swelling Review of Systems ROS Statement: Those systems with pertinent positive or pertinent negative responses have been documented in the HPI. ROS Other: All systems not noted in ROS Statement are negative. Past Medical History Past Medical History: Asthma, Hypertension, Seizure Disorder History of Any Multi-Drug Resistant Organisms: None Reported Past Surgical History: Section, Tubal Ligation Additional Past Surgical History / Comment(s): ankle, exploratory lap Past Anesthesia/Blood Transfusion Reactions: No Reported Reaction Past Psychological History: Anxiety, Depression Smoking Status: Current every day smoker Past Alcohol Use History: Daily, Heavy Past Drug Use History: Marijuana - Past Family History Mother Family Medical History: Liver Disease Father Family Medical History: Cancer General Exam - General Exam Comments Initial Comments: his is a well-developed asthenic appearing female who is awake alert oriented 3patient is tearful during the evaluation Limitations: no limitations General appearance: alert, anxious, in distress Head exam: Present: atraumatic, normocephalic, normal inspection Eye exam: Present: normal appearance, PERRL, EOMI. Absent: scleral icterus, conjunctival injection, periorbital swelling ENT exam: Present: normal exam, mucous membranes moist Neck exam: Present: normal inspection. Absent: tenderness, meningismus, lymphadenopathy Respiratory exam: Present: normal lung sounds bilaterally. Absent: respiratory distress, wheezes, rales, rhonchi, stridor Cardiovascular Exam: Present: regular rate, normal rhythm, normal heart sounds. Absent: systolic murmur, diastolic murmur, rubs, gallop, clicks GI/Abdominal exam: Present: soft, normal bowel sounds. Absent: distended, tenderness, guarding, rebound, rigid Extremities exam: Present: normal inspection, full ROM, normal capillary refill. Absent: tenderness, pedal edema, joint swelling, calf tenderness Back exam: Present: normal inspection Neurological exam: Present: alert, oriented X3, CN II-XII intact Psychiatric exam: Present: normal affect, normal mood Skin exam: Present: warm, dry, intact, normal color. Absent: rash Course Vital Signs 04/10/20 04/10/20 17:30 19:04 Temperature 98.0 F 98.0 F Pulse Rate 95 84 Respiratory 18 14 Rate Blood Pressure 105/89 131/81 O2 Sat by Pulse 97 97 Oximetry Medical Decision Making - Medical Decision Making I did discuss findings with the patient as well as with Dr. Dao. Patient be admitted for impending DTs alcohol withdrawal - Lab Data Result diagrams: 04/10/20 17:57 04/10/20 17:57 Lab Results 04/10/20 04/10/20 04/10/20 Range/Units 17:57 17:57 17:57 WBC 6.1 (3.8-10.6) k/uL RBC 4.90 (3.80-5.40) m/uL Hgb 17.0 H (11.4-16.0) gm/dL Hct 51.4 H (34.0-46.0) % MCV 104.9 H (80.0-100.0) fL MCH 34.8 (25.0-35.0) pg MCHC 33.2 (31.0-37.0) g/dL RDW 13.2 (11.5-15.5) % Plt Count 207 (150-450) k/uL Neutrophils % 44 % Lymphocytes % 42 % Monocytes % 8 % Eosinophils % 1 % Basophils % 1 % Neutrophils # 2.7 (1.3-7.7) k/uL Lymphocytes # 2.6 (1.0-4.8) k/uL Monocytes # 0.5 (0-1.0) k/uL Eosinophils # 0.1 (0-0.7) k/uL Basophils # 0.1 (0-0.2) k/uL Macrocytosis Slight Sodium 139 (137-145) mmol/L Potassium 4.2 (3.5-5.1) mmol/L Chloride 103 (98-107) mmol/L Carbon Dioxide 25 (22-30) mmol/L Anion Gap 11 mmol/L BUN 4 L (7-17) mg/dL Creatinine 0.45 L (0.52-1.04) mg/dL Est GFR (CKD-EPI)AfAm >90 (>60 ml/min/1.73 sqM) Est GFR (CKD-EPI)NonAf >90 (>60 ml/min/1.73 sqM) Glucose 91 (74-99) mg/dL Calcium 9.4 (8.4-10.2) mg/dL Magnesium 1.9 (1.6-2.3) mg/dL Total Bilirubin 0.5 (0.2-1.3) mg/dL AST 91 H (14-36) U/L ALT 33 (4-34) U/L Alkaline Phosphatase 100 (38-126) U/L Creatine Kinase 110 (30-135) U/L Total Protein 8.0 (6.3-8.2) g/dL Albumin 4.9 (3.5-5.0) g/dL Lipase 268 (23-300) U/L Urine Opiates Screen Not Detected (NotDetected) Ur Oxycodone Screen Not Detected (NotDetected) Urine Methadone Screen Not Detected (NotDetected) Ur Propoxyphene Screen Not Detected (NotDetected) Ur Barbiturates Screen Not Detected (NotDetected) U Tricyclic Antidepress Not Detected (NotDetected) Ur Phencyclidine Scrn Not Detected (NotDetected) Ur Amphetamines Screen Not Detected (NotDetected) U Methamphetamines Scrn Not Detected (NotDetected) U Benzodiazepines Scrn Not Detected (NotDetected) Urine Cocaine Screen Not Detected (NotDetected) U Marijuana (THC) Screen Detected H (NotDetected) Serum Alcohol 344 H* mg/dL Disposition Clinical Impression: Alcohol intoxication, Alcohol withdrawal, Depression Disposition: ADMITTED IP TO THIS [facility] Condition: Fair Referrals: None,Stated [Primary Care Provider] - 1-2 days
[2020-04-10 18:13] LABS: Basophils # (A) 0.1 k/uL (0-0.2); Basophils % (A) 1 %; Eosinophils # (A) 0.1 k/uL (0-0.7); Eosinophils % (A) 1 %; HCT 51.4 % (34.0-46.0); Lymphocytes # (A) 2.6 k/uL (1.0-4.8); Lymphocytes % (A) 42 %; MCH 34.8 pg (25.0-35.0); MCHC 33.2 g/dL (31.0-37.0); MCV 104.9 fL (80.0-100.0); Macrocytosis Slight; Mean Platelet Volume 6.5; Monocytes # (A) 0.5 k/uL (0-1.0); Monocytes % (A) 8 %; Neutrophils # (A) 2.7 k/uL (1.3-7.7); Neutrophils % (A) 44 %; Platelet Count 207 k/uL (150-450); RDW 13.2 % (11.5-15.5); WBC 6.1 k/uL (3.8-10.6)
[2020-04-10 18:26] LABS: Amphetamine Screen,Urine Not Detected (NotDetected); Barbiturate Screen,Urine Not Detected (NotDetected); Benzodiazepines Screen,Urine Not Detected (NotDetected); Cocaine Screen,Urine Not Detected (NotDetected); Methadone Screen, Urine Not Detected (NotDetected); Opiate Screen,Urine Not Detected (NotDetected); Oxycodone Screen, Urine Not Detected (NotDetected); Phencyclidine Screen,Urine Not Detected (NotDetected); Tricyclic Antidepressant,Urine Not Detected (NotDetected); Urn Cannabinoid Scrn Detected (NotDetected)
[2020-04-10 18:31] LABS: ALT 33 U/L (4-34); AST 91 U/L (14-36); African American GFR (CKD) >90 (>60 ml/min/1.73 sqM); Albumin 4.9 g/dL (3.5-5.0); Alkaline Phosphatase 100 U/L (38-126); Anion Gap 11 mmol/L; Blood Urea Nitrogen 4 mg/dL (7-17); Calcium 9.4 mg/dL (8.4-10.2); Carbon Dioxide 25 mmol/L (22-30); Chloride 103 mmol/L (98-107); Creatine Kinase 110 U/L (30-135); Glucose 91 mg/dL (74-99); Lipase 268 U/L (23-300); Magnesium 1.9 mg/dL (1.6-2.3); Non-African American GFR(CKD) >90 (>60 ml/min/1.73 sqM); Potassium 4.2 mmol/L (3.5-5.1); Sodium 139 mmol/L (137-145); Total Bilirubin 0.5 mg/dL (0.2-1.3)
[2020-04-10 18:39] LABS: Alcohol 344 mg/dL
[2020-04-10] MEDS ORDERED: NALOXONE 0.4 MG/ML 1 ML VIAL IV PRN (19:25)
[2020-04-10] MEDS ORDERED: LORazepam 2 MG/ML INJ IV PRN (19:26)
[2020-04-10] MEDS ORDERED: NICOTINE 21MG/24HR PATCH TRANSDERM STA (19:26)
[2020-04-10] MEDS ORDERED: THIAMINE 100 MG/ML 2 ML VIAL IM STA (19:26)
[2020-04-10] MEDS ORDERED: SODIUM CHLORIDE 0.9% 1,000 ML IV SCH (19:30)
[2020-04-10] MEDS: IBUPROFEN 400 MG TAB PO PRN (19:35)
[2020-04-10] MEDS: LORazepam 2 MG/ML INJ IV PRN (19:36)
--- NOTE | 2020-04-10 23:15 | P.HPIM ---
History of Present Illness H&P Date: 04/10/20 The patient is a 54-year-old female with a PMH of alcohol abuse, asthma, hypertension, and seizure disorder who presented to the emergency room with alcohol intoxication along with depression and suicidal ideation. The patient reports that she is simply "tired of life" as she recently became homeless and has been living in a friend's trailer. The patient notes that she continues to drink alcohol, 6-12 large beers daily and that she has been struggling with trying to quit. Notes that she has been drinking for the past 3-4 decades. She also smokes 1 pack of cigarettes per day. She reports that her last drink was earlier today. She has been feeling down about her life and had planned to cut her wrists and "jump in the river". She denies chest pain, shortness of breath, fever, chills. Also denied nausea, vomiting, cough, abdominal pain, or diarrhea. Notes that her last seizure was several months ago and that she is not currently taking any medications. In the emergency room laboratory evaluation revealed an AST of 91, hemoglobin 17, MCV 104, with serum alcohol 344. Review of Systems Pertinent positives and negatives as discussed in HPI, a complete review of systems was performed and all other systems are negative. Past Medical History Past Medical History: Asthma, Hypertension, Seizure Disorder History of Any Multi-Drug Resistant Organisms: None Reported Past Surgical History: Section, Tubal Ligation Additional Past Surgical History / Comment(s): ankle, exploratory lap Past Anesthesia/Blood Transfusion Reactions: No Reported Reaction Past Psychological History: Anxiety, Depression Smoking Status: Current every day smoker Past Alcohol Use History: Daily, Heavy Past Drug Use History: Marijuana - Past Family History Mother Family Medical History: Liver Disease Father Family Medical History: Cancer Medications and Allergies Home Medications Medication Instructions Recorded Confirmed Type No Known Home Medications 04/10/20 04/10/20 History Allergies Allergy/AdvReac Type Severity Reaction Status Date / Time Penicillins Allergy Rash/Hives/ Verified 04/10/20 19:34 Swelling sertraline HCl [From Zoloft] AdvReac suicidal Verified 04/10/20 19:34 Physical Exam Vitals: Vital Signs Temp Pulse Resp BP Pulse Ox 04/10/20 19:04 98.0 F 84 14 131/81 97 04/10/20 17:30 98.0 F 95 18 105/89 97 Intake and Output 04/10/20 04/10/20 04/10/20 06:59 14:59 22:59 Other: Weight 40.823 kg General: Disheveled chronically ill female, no distress, appears older than stated age, normal weight Derm: no unusual rashes/lesions no unusual ecchymoses, warm, dry Head: atraumatic, normocephalic, symmetric Eyes: EOMI, no lid lag, anicteric sclera, pupils equal round reactive to light ENT: Nose and ears atraumatic, oral thrush noted, no pharyngeal erythema Neck: No thyromegaly, no cervical lymphadenopathy, trachea midline, supple Mouth: no lip lesion, mucus membranes dry Cardiovascular: S1S2 reg, no murmur, positive posterior tibial pulse bilateral, no edema, capillary refill less than 2 seconds Lungs: CTA bilateral, no rhonchi, no rales , no accessory muscle use Abdominal: soft, nontender to palpation, no guarding, no appreciable organomegaly, normal bowel sounds Ext: no gross muscle atrophy, muscle strength 5 out of 5 in all 4 extremities grossly, no contractures, mild outstretched hand tremor Neuro: CN II-XI grossly intact, light touch intact all 4 extremities, finger to nose within normal limits, Psych: Alert, oriented, appropriate affect Results CBC & Chem 7: 04/10/20 17:57 04/10/20 17:57 Labs: Abnormal Lab Results - Last 24 Hours (Table) 04/10/20 04/10/20 04/10/20 Range/Units 17:57 17:57 17:57 Hgb 17.0 H (11.4-16.0) gm/dL Hct 51.4 H (34.0-46.0) % MCV 104.9 H (80.0-100.0) fL BUN 4 L (7-17) mg/dL Creatinine 0.45 L (0.52-1.04) mg/dL AST 91 H (14-36) U/L U Marijuana (THC) Screen Detected H (NotDetected) Serum Alcohol 344 H* mg/dL Assessment and Plan Plan: Alcohol intoxication, impending withdrawal -[facility] protocol -Thiamine, folate, multivitamins -IV fluids -Monitor electrolytes daily and replace as needed -Aspiration, seizure, fall precautions Depression with suicidal ideation -Suicide precautions -Psychiatry consult Thrush -Nystatin solution Homeless -bench worker hollow handle 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 Monitor for now DVT prophylaxis -Heparin subq The patient is admitted with an anticipated greater than 2 midnight stay for evaluation of EtOH abuse CODE STATUS: Full Code Discussed with: Patient Anticipated discharge date: 2-[address]: [facility]f A total of 40 minutes was spent on the care of this complex patient more than 5 0% of the time was spent in counseling and care coordination.
[2020-04-10] MEDS ORDERED: IPRATROPIUM-ALBUTEROL 3 ML NEB INHALATION PRN (23:24)
[2020-04-11] MEDS: HEPARIN SODIUM,PORCINE 5,000 UNIT/ML 1 ML VIAL SQ SCH ×2 (00:25→07:55)
[2020-04-11] MEDS: LORazepam 2 MG/ML INJ IV PRN ×4 (01:29→12:25)
[2020-04-11] MEDS: NYSTATIN 100,000 UNIT/ML SUSP 500,000 UNIT/5 ML CUP PO SCH ×3 (01:35→15:17)
[2020-04-11] MEDS: IBUPROFEN 400 MG TAB PO PRN ×2 (01:53→12:40)
[2020-04-11] MEDS ORDERED: THIAMINE 100 MG TAB PO SCH (07:30)
[2020-04-11] MEDS ORDERED: PANTOPRAZOLE 40 MG/10 ML VIAL IV SCH (09:00)
[2020-04-11] MEDS ORDERED: FOLIC ACID 1 MG TAB PO SCH (09:00)
[2020-04-11] MEDS: chlordiazePOXIDE 25 MG CAP PO SCH ×2 (11:24→15:17)
[2020-04-11 11:53] VITALS: BP 185/99; PULSE 76; RESP 18; TEMP 97.7
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
[2020-04-11 13:35] VITALS: BMI 17.6
--- NOTE | 2020-04-11 15:48 | P.DS ---
Providers Date of admission: 04/10/20 19:27 Expected date of discharge: 04/11/20 Attending physician: Dylan Dao MD Consults: 04/10/20 23:14 Consult Physician Urgent Consulting Provider: Rajeev Cazares Consult Reason/Comments: Depression Do you want consulting provider notified?: Yes, Notify in am Primary care physician: Stated None Hospital Course: The patient is a 54-year-old female with a PMH of alcohol abuse, asthma, hypertension, and seizure disorder who presented to the emergency room with alcohol intoxication along with depression and suicidal ideation. The patient reports that she is simply "tired of life" as she recently became homeless and has been living in a friend's trailer. The patient notes that she continues to drink alcohol, 6-12 large beers daily and that she has been struggling with trying to quit. Notes that she has been drinking for the past 3-4 decades. She also smokes 1 pack of cigarettes per day. She reports that her last drink was earlier today. She has been feeling down about her life and had planned to cut her wrists and "jump in the river". She denies chest pain, shortness of breath, fever, chills. Also denied nausea, vomiting, cough, abdominal pain, or diarrhea. Notes that her last seizure was several months ago and that she is not currently taking any medications. In the emergency room laboratory evaluation revealed an AST of 91, hemoglobin 17, MCV 104, with serum alcohol 344. Patient was started on CIWA protocol and given Ativan as needed. She was started on Librium. She was given thiamine, folic acid and multivitamin. She was placed on aspiration, seizure and fall precautions. Patient was initially placed on one-to-one sitter for depression and suicidal ideation. Psychiatry evaluated the patient and discontinued this sitter, cleared the patient for discharge to follow-up with psychiatry in the outpatient setting. Patient was seen and examined. No acute events overnight. Patient has no co mplaints this afternoon. States that she was upset and intoxicated when she made suicidal comments. She denies any suicidal or homicidal ideation, visual or auditory hallucinations. States that she plans on continuing to drink and will wean herself off slowly. States that she is a place to go today after discharge. She denies any chest pain, shortness breath or palpitations. No nausea or vomiting. No fever or chills. General: [non toxic], [no distress], [appears at stated age] Derm: [warm], [dry] Head: [atraumatic], [normocephalic], [symmetric] Eyes: [EOMI], [no lid lag], [anicteric sclera] Mouth: [no lip lesion], [mucus membranes moist] Cardiovascular: [S1S2 reg], [no murmur], [positive posterior tibial pulse bilateral], Lungs: [CTA bilateral], [no rhonchi, no rales] , [no accessory muscle use] Abdominal: [soft], [ nontender to palpation], [no guarding], [no appreciable organomegaly] Ext: [no gross muscle atrophy], [no edema], [no contractures] Neuro: [no focal neuro deficits] Psych: [Alert], [oriented], [appropriate affect] Alcohol intoxication, impending withdrawal -[facility] protocol -Thiamine, folate, multivitamins -No Librium or Ativan on discharge as patient plans to continue drinking -Monitor electrolytes daily and replace as needed -Aspiration, seizure, fall precautions Depression with suicidal ideation -DC one-to-one sitter as per psychiatry recommendations -Psychiatry consult - recommends Effexor, prazosin and outpatient follow-up Thrush -Nystatin solution Homeless -harness worker 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 Monitor for now DVT prophylaxis -Heparin subq [Patient is alert and oriented 3. Appears sober. Denies any suicidal or homicidal ideations. Cleared by psychiatry for discharge. Plans on continued drinking. Plans on DC home today.] Patient Condition at Discharge: Stable Plan - Discharge Summary New Discharge Prescriptions: New Venlafaxine HCl ER [Effexor XR] 75 mg PO DAILY #30 cap.er.24h Folic Acid 1 mg PO DAILY tab Prazosin [Minipress] 2 mg PO HS #60 cap Ibuprofen [Motrin] 400 mg PO Q6HR PRN tab PRN Reason: Mild Pain Or Fever > 100.5 Thiamine [Vitamin B-1] 100 mg PO BID-W/MEALS #0 tab Discharge Medication List Folic Acid 1 mg PO DAILY tab 04/11/20 [Rx] Ibuprofen [Motrin] 400 mg PO Q6HR PRN tab 04/11/20 [Rx] Prazosin [Minipress] 2 mg PO HS #60 cap 04/11/20 [Rx] Thiamine [Vitamin B-1] 100 mg PO BID-W/MEALS #0 tab 04/11/20 [Rx] Venlafaxine HCl ER [Effexor XR] 75 mg PO DAILY #30 cap.er.24h 04/11/20 [Rx] Follow up Appointment(s)/Referral(s): [facility] [Outside] - As Needed (CALL FOR FOLLOW UP APPOINTMENT) [facility] [Outside] - 1 Week Bandar Omer MD [STAFF PHYSICIAN] - 04/15/20 2:45 pm Patient Instructions/Handouts: Prazosin (By mouth), Venlafaxine (By mouth), Abuse of Alcohol (DC), Alcohol Withdrawal (DC) Activity/Diet/Wound Care/Special Instructions: Diet: Regular Follow-up PCP within 3 days of discharge. Follow-up with psychiatry within 1 week of discharge. Take all medications as advised. Refrain from drinking alcohol. Discharge Disposition: HOME SELF-CARE
[2020-04-11] MEDS ORDERED: PRAZOSIN 1 MG CAP PO SCH (21:00)
[2020-04-12] MEDS ORDERED: PANTOPRAZOLE 40 MG TABLET PO SCH (07:30)
[2020-04-12] MEDS ORDERED: VENLAFAXINE HCL ER 75 MG CAP PO SCH (09:00)
== END 2020-04-11 16:10 | disposition home or self-care (01) | DRG 897 ==
LOC: EC 17:08 → 6NMEDSUR 19:27
PROVIDERS: ADMIT Family Medicine; ATTEND Family Medicine
DX: F10.229 Alcohol dependence with intoxication, unspecified (principal); B37.0 Candidal stomatitis; R45.851 Suicidal ideations; F10.239 Alcohol dependence with withdrawal, unspecified; Y90.8 Blood alcohol level of 240 mg/100 ml or more; F12.10 Cannabis abuse, uncomplicated; F17.210 Nicotine dependence, cigarettes, uncomplicated; F43.23 Adjustment disorder with mixed anxiety and depressed mood; G40.909 Epilepsy, unspecified, not intractable, without status epilepticus; I10 Essential (primary) hypertension; J44.9 Chronic obstructive pulmonary disease, unspecified; Z59.0 Homelessness; Z98.51 Tubal ligation status; Z88.0 Allergy status to penicillin; Z88.8 Allergy status to other drugs, medicaments and biological substances
CPT/HCPCS: 36415; 80053; 80306; 80320; 82075; 82550; 83690; 83735; 85025; 96374; 96376; 99285

== ENCOUNTER 2020-12-17 17:12 | Inpatient (IN) | payer OTHER ==
[2020-12-17] MEDS ORDERED: HYDROmorphone 1 MG/ML 1 ML SYRINGE IM STA (17:55)
[2020-12-17] MEDS ORDERED: DEXAMETHASONE SOD PHOSPHATE 10 MG/ML 1 ML VIAL IM STA (17:55)
[2020-12-17] MEDS ORDERED: ONDANSETRON 4 MG/2 ML VIAL IVP STA (18:13)
--- NOTE | 2020-12-17 18:53 | CT ---
EXAMINATION TYPE: CT lumbar spine wo con DATE OF EXAM: 12/17/2020 COMPARISON: None HISTORY: back pain, no injury CT DLP: 508.9 mGycm Automated exposure control for dose reduction was used. Lumbar vertebra have normal alignment. Posterior elements are intact. Disc spaces are normal. There i s no compression fracture. Posterior elements are intact. Facet joints are intact. There is no lumbar paraspinal mass. Sacroiliac joints are intact. There is a moderate posterior central and left side d isc herniation at L4-5 impinging on the neural foramen and lateral recess. There is also significant lateral component. IMPRESSION: Moderate-sized lateral disc herniation at L4-5 on the left side. No fracture seen.
[2020-12-17] MEDS ORDERED: HYDROmorphone 1 MG/ML 1 ML SYRINGE IVP STA (18:54)
[2020-12-17] MEDS ORDERED: KETOROLAC 15 MG/ML 1 ML VIAL IVP STA (19:10)
[2020-12-17] MEDS ORDERED: LIDOCAINE 5% PATCH TOPICAL STA (19:10)
--- NOTE | 2020-12-17 19:12 | ED ---
Back Pain HPI - General Chief Complaint: Back Pain/Injury Stated Complaint: Back Injury Time Seen by Provider: 12/17/20 17:36 Source: patient, EMS - History of Present Illness Initial Comments: 54-year-old female with history of chronic back pain presents to the emergency department with a chief complaint of back pain. Patient brought to the ED via EMS. Patient reports she was lifting something for her neighbor when she felt sudden onset of left-sided lumbosacral pain with radiation along the posterior aspect of the left lower extremity. Patient reports pain is worse with ambulation. She is not able to ambulate. She denies any saddle anesthesia, urinary retention with overflow bowel incontinence. Pain is better at rest and exacerbated with any movement. - Related Data Home Medications Medication Instructions Recorded Confirmed FLUoxetine HCL [PROzac] 20 mg PO DAILY 10/23/20 10/23/20 levETIRAcetam [Keppra] 500 mg PO BID 10/23/20 10/23/20 Allergies Allergy/AdvReac Type Severity Reaction Status Date / Time Penicillins Allergy Rash/Hives/ Verified 10/23/20 14:29 Swelling sertraline HCl [From Zoloft] AdvReac suicidal Verified 10/23/20 14:29 Review of Systems ROS Statement: Those systems with pertinent positive or pertinent negative responses have been documented in the HPI. ROS Other: All systems not noted in ROS Statement are negative. Past Medical History Past Medical History: Asthma, Hypertension, Seizure Disorder History of Any Multi-Drug Resistant Organisms: None Reported Past Surgical History: Section, Tubal Ligation Additional Past Surgical History / Comment(s): ankle, exploratory lap Past Anesthesia/Blood Transfusion Reactions: No Reported Reaction Past Psychological History: Anxiety, Depression Smoking Status: Current every day smoker Past Alcohol Use History: Daily, Heavy Additional Past Alcohol Use History / Comment(s): pt. states she drinks four beers daily Past Drug Use History: Marijuana Additional Drug Use History / Comment(s): pt reports mj use approx once a month. Pt reports that she recently used took some pain medication - Past Family History Mother Family Medical History: Liver Disease Father Family Medical History: Cancer General Exam Limitations: no limitations General appearance: alert, in no apparent distress Head exam: Present: atraumatic, normocephalic, normal inspection Eye exam: Present: normal appearance, PERRL, EOMI Pupils: Present: normal accommodation ENT exam: Present: normal exam, normal oropharynx, mucous membranes moist Neck exam: Present: normal inspection, full ROM. Absent: tenderness, lymphadenopathy Respiratory exam: Present: normal lung sounds bilaterally. Absent: respiratory distress Cardiovascular Exam: Present: regular rate, normal rhythm, normal heart sounds. Absent: systolic murmur GI/Abdominal exam: Present: soft. Absent: distended, tenderness, guarding, rebound Extremities exam: Present: normal inspection, full ROM, normal capillary refill, other (Palpable DP and PT bilaterally) Back exam: Present: normal inspection, full ROM, tenderness, paraspinal tenderness (Left paraspinal tenderness in the sacral region.), vertebral tenderness Neurological exam: Present: alert, oriented X3 Psychiatric exam: Present: normal affect, normal mood Skin exam: Present: warm, dry, intact, normal color Course Vital Signs 12/17/20 12/17/20 17:15 20:11 Temperature 98.2 F 98.7 F Pulse Rate 85 86 Respiratory 19 17 Rate Blood Pressure 169/106 161/121 O2 Sat by Pulse 98 97 Oximetry Medical Decision Making - Medical Decision Making 54-year-old female with history of chronic back pain presents to the emergency department with a chief complaint of back pain. On physical examination, left- sided lower lumbar, paraspinal tenderness. Lumbar radiculopathy to the left. No concern for cauda equina. No red flags. CT of the lumbar spine reveals a disc herniation L4-L5 to the left. Patient was given 2 mg of Dilaudid, Toradol, Decadron, Lidoderm patch. Patient did improve while only laying in bed. She still not able to ambulate whatsoever. I plan to keep the patient for observation with an orthopedic consult. Case discussed with who will admit. Case discussed with Dr. [facility] on consult. Disposition Clinical Impression: Intractable back pain Disposition: ADMITTED IP TO THIS [facility] Condition: Fair Instructions (If sedation given, give patient instructions): Acute Low Back Pain (ED) Additional Instructions: P Is patient prescribed a controlled substance at d/c from ED?: No Referrals: None,Stated [Primary Care Provider] - 1-2 days Time of Disposition: 20:29
[2020-12-17] MEDS ORDERED: NALOXONE 0.4 MG/ML 1 ML VIAL IV PRN (21:51)
[2020-12-17] MEDS ORDERED: LORazepam 2 MG/ML INJ IV PRN (21:51)
[2020-12-17] MEDS ORDERED: IBUPROFEN 400 MG TAB PO PRN (21:51)
[2020-12-17] MEDS ORDERED: KETOROLAC 15 MG/ML 1 ML VIAL IVP PRN (21:51)
[2020-12-17] MEDS ORDERED: ACETAMINOPHEN TAB 325 MG TAB PO PRN (21:51)
[2020-12-17] MEDS: MORPHINE SULFATE 4 MG/ML SYRINGE IV PRN (22:15)
[2020-12-17] MEDS: HYDROmorphone 0.5 MG/0.5 ML SYRINGE IVP PRN (23:55)
[2020-12-17] MEDS: SODIUM CHLORIDE 0.9% 1,000 ML IV SCH (23:55)
[2020-12-18] MEDS: levETIRAcetam 500 MG TAB PO SCH ×2 (00:46→08:47)
[2020-12-18] MEDS ORDERED: LORazepam 2 MG/ML INJ IV PRN ×2 (00:46)
--- NOTE | 2020-12-18 00:50 | P.HPIM ---
History of Present Illness H&P Date: 12/17/20 Chief Complaint: Back pain 54-year-old female with seizures and asthma Patient comes in with complaints of lower back pain started started suddenly after helping her neighbor moving some furniture she felt sharp pain left lower back radiating all the way down her left lower extremity due to the big toe it was getting worse with ambulation for which she decided to come to the hospital for pain control she denies any urinary retention or loss of bowel or bladder control she denies any saddle numbness or paresthesia. She denies any trauma to her back denies any fevers or chills denies any nausea vomiting or abdominal pain chest pain or trouble breathing In the ED imaging of the back showed L4 5 lateral disc herniation no acute fractures patient admitted for pain control she wasn't able to ambulate even after pain medications in the ED and for evaluation by orthopedics In the ED she was also found to have elevated blood pressure which is thought to be combination of poor pain control and possible early signs and symptoms of alcohol withdrawal patient admits to drinking 4 cans of large beers every day. And she only had one today Review of Systems Pertinent positives as noted in HPI. All other systems were reviewed and are n egative Past Medical History Past Medical History: Asthma, Hypertension, Seizure Disorder History of Any Multi-Drug Resistant Organisms: None Reported Past Surgical History: Section, Tubal Ligation Additional Past Surgical History / Comment(s): ankle, exploratory lap Past Anesthesia/Blood Transfusion Reactions: No Reported Reaction Past Psychological History: Anxiety, Depression Smoking Status: Former smoker Past Alcohol Use History: Daily, Heavy Additional Past Alcohol Use History / Comment(s): pt. states she drinks four beers daily Past Drug Use History: Marijuana Additional Drug Use History / Comment(s): pt reports mj use daily. Pt reports that she recently used took some pain medication - Past Family History Mother Family Medical History: Liver Disease Father Family Medical History: Cancer Medications and Allergies Home Medications Medication Instructions Recorded Confirmed Type levETIRAcetam [Keppra] 500 mg PO BID 10/23/20 12/17/20 History Allergies Allergy/AdvReac Type Severity Reaction Status Date / Time Penicillins Allergy Rash/Hives/ Verified 12/17/20 20:53 Swelling sertraline HCl [From Zoloft] AdvReac suicidal Verified 07/06/21 20:53 Physical Exam Vitals: Vital Signs Temp Pulse Resp BP Pulse Ox 12/17/20 22:45 73 17 166/95 98 12/17/20 20:11 98.7 F 86 17 161/121 97 12/17/20 17:15 98.2 F 85 19 169/106 98 Intake and Output 12/17/20 12/17/20 12/18/20 14:59 22:59 06:59 Other: # Voids 1 Weight 43.091 kg 43.091 kg Constitutional: No acute distress, conversant, pleasant Eyes: Anicteric sclerae, moist conjunctiva, Pupils equal round reactive to light ENMT: NC/AT Oropharynx clear, no erythema, or exudates Neck: Supple, FROM, no masses, or JVD No carotid bruits No thyromegaly Lungs: Clear to auscultation Clear to percussion Normal respiratory effort, no accessory muscle use Cardiovascular: Heart regular in rate and rhythm, No murmurs, gallops, or rubs No peripheral edema Abdominal: Tenderness to palpation of the left paraspinal muscles Soft Nontender, no guarding, rebound or rigidity Abdomen moving with respiration Normoactive bowel sounds No hepatomegaly, No splenomegaly No palpable mass No abdominal wall hernia noted Skin: Normal temperature, tone, texture, turgor No induration No subcutaneous nodules No rash, lesions No ulcers Extremities: No digital cyanosis No clubbing Pedal pulses intact and symmetrical Radial pulses intact and symmetrical No calf tenderness Psychiatric: Alert and oriented to person, place and time Appropriate affect fair judgement Neuro straight leg rising test positive on the left side Muscles Strength 4/5 in all 4 extremities with limitations over the left side due to pain Sensation to light touch grossly present throughout Cranial nerves II-XII grossly intact No focal sensory deficits Lymphatics: no palpable cervical or supraclavicular , or inguinal lymph nodes Thrombosis Risk Factor Assmnt - Choose All That Apply Any of the Below Risk Factors Present?: Yes Each Factor Represents 1 point: Age 41-60 years Other Risk Factors: No Other congenital or acquired thrombophilia - If yes, enter type in comment: No Thrombosis Risk Factor Assessment Total Risk Factor Score: 1 Thrombosis Risk Factor Assessment Level: Low Risk Assessment and Plan Assessment: Herniated lumbar disc with radiculopathy Pain control Orthopedic evaluation Computed tomography scan showed disc herniation L4L5 level No acute fractures Pain control with opiates and NSAIDs Hypertensive urgency Clonidine when necessary for systolic above 180 Resume home meds History of seizure disorder Resume Keppra Tobacco smoking Dictating replacement therapy Alcohol dependence Monitor for early signs of alcohol withdrawal syndrome Benzodiazepines per CIWA scale Thiamine by mouth Gentle IV fluid hydration Check blood work CBC and CMP DVT prophylaxis mechanical Anticipated length of stay less than 2 midnights Anticipated discharge to home
[2020-12-18] MEDS ORDERED: cloNIDine HCL 0.2 MG TAB PO PRN (01:00)
[2020-12-18] MEDS: NICOTINE 21MG/24HR PATCH TRANSDERM SCH ×2 (01:38→08:47)
[2020-12-18 02:26] VITALS: RESP 16
[2020-12-18 04:59] LABS: Basophils % (A) 0 %; Eosinophils % (A) 1 %; HCT 43.2 % (34.0-46.0); Lymphocytes # (A) 0.4 k/uL (1.0-4.8); Lymphocytes % (A) 10 %; MCH 34.8 pg (25.0-35.0); MCHC 34.7 g/dL (31.0-37.0); MCV 100.4 fL (80.0-100.0); Mean Platelet Volume 6.8; Monocytes # (A) 0.1 k/uL (0-1.0); Monocytes % (A) 3 %; Neutrophils # (A) 3.2 k/uL (1.3-7.7); Neutrophils % (A) 86 %; Platelet Count 180 k/uL (150-450); WBC 3.7 k/uL (3.8-10.6)
[2020-12-18 05:11] LABS: ALT 34 U/L (4-34); AST 65 U/L (14-36); African American GFR (CKD) >90 (>60 ml/min/1.73 sqM); Albumin 4.1 g/dL (3.5-5.0); Albumin/Globulin Ratio 1.8; Alkaline Phosphatase 93 U/L (38-126); Anion Gap 8 mmol/L; Blood Urea Nitrogen 5 mg/dL (7-17); Calcium 8.7 mg/dL (8.4-10.2); Carbon Dioxide 23 mmol/L (22-30); Chloride 98 mmol/L (98-107); Globulin 2.3 g/dL; Glucose 304 mg/dL (74-99); Non-African American GFR(CKD) >90 (>60 ml/min/1.73 sqM); Potassium 4.1 mmol/L (3.5-5.1); Sodium 129 mmol/L (137-145); Total Bilirubin 0.6 mg/dL (0.2-1.3); Total Protein 6.4 g/dL (6.3-8.2)
[2020-12-18] MEDS: HYDROmorphone 0.5 MG/0.5 ML SYRINGE IVP PRN ×2 (06:17→11:29)
[2020-12-18] MEDS ORDERED: DEXAMETHASONE SOD PHOSPHATE 4 MG/ML 1 ML VIAL IV PRN (07:26)
[2020-12-18] MEDS ORDERED: CYCLOBENZAPRINE 10 MG TAB PO PRN (07:27)
[2020-12-18] MEDS: IPRATROPIUM-ALBUTEROL 3 ML NEB INHALATION PRN ×2 (08:38→11:50)
[2020-12-18] MEDS: LORazepam 2 MG/ML INJ IV PRN ×2 (08:58→14:19)
[2020-12-18] MEDS: SODIUM CHLORIDE 0.9% 1,000 ML IV SCH (08:59)
--- NOTE | 2020-12-18 11:18 | P.CNOR ---
History of Present Illness - [facility] Consult date: 12/18/20 Consult reason: low back pain History of present illness: Patient is a 54-year-old female who presented to [facility] yesterday with regards to severe low back pain. Patient was apparently helping her neighbor lifts something when she felt the pain started in her low back that radiated down the left leg in the posterior aspect. She is brought to the hospital by EMS. Upon arrival to the hospital, imaging and lab tests were done. Her pain was inadequately controlled during her emergency room stay, she was then admitted under internal medicine and orthopedic team was consulted. Patient was evaluated today at bedside, she is resting in her hospital bed. She is quite anxious on exam. She is a chronic drinker, she normally drinks 3-412 beers a day. She is also a chronic smoker, both marijuana and tobacco. She has had a history of low back pain for many years. She's never been evaluated by an orthopedic surgeon. She's never had an MRI, she did have x-rays many years ago. She's never had injections or surgery. He states that the pain is normally is located in the center of the lower back with minimal radiation into the left leg. She has had this type of pain before but not severe. Patient denies any loss of bowel or bladder function. She denies any numbness or tingling of the bilateral lower extremities. She denies any perianal or genital numbness or tingling. She denies any pain, numbness or tingling, or ankit weakness of the bilateral upper extremities. He denies any headaches, lightheadedness, chest pain or shortness of breath. Patient does not use any assistive devices with ambulation. She does not drive, she has a history of seizures. He is unemployed. She does not have a primary care doctor at this time. Past Medical History Past Medical History: Asthma, Hypertension, Seizure Disorder History of Any Multi-Drug Resistant Organisms: None Reported Past Surgical History: Section, Tubal Ligation Additional Past Surgical History / Comment(s): ankle, exploratory lap Past Anesthesia/Blood Transfusion Reactions: No Reported Reaction Past Psychological History: Anxiety, Depression Smoking Status: Former smoker Past Alcohol Use History: Daily, Heavy Additional Past Alcohol Use History / Comment(s): pt. states she drinks four beers daily Past Drug Use History: Marijuana Additional Drug Use History / Comment(s): pt reports mj use daily. Pt reports that she recently used took some pain medication - Past Family History Mother Family Medical History: Liver Disease Father Family Medical History: Cancer Medications and Allergies Home Medications Medication Instructions Recorded Confirmed Type levETIRAcetam [Keppra] 500 mg PO BID 10/23/20 12/17/20 History Allergies Allergy/AdvReac Type Severity Reaction Status Date / Time Penicillins Allergy Rash/Hives/ Verified 12/17/20 20:53 Swelling sertraline HCl [From Zoloft] AdvReac suicidal Verified 12/17/20 20:53 Physical Examination Gen: AOx3, NAD VSS stable at this time Integument: No obvious open lesions or sores are present throughout the cervical, thoracic or lumbar spine. No obvious areas of erythema or soft tissue swelling present Palpation: Patient is nontender with palpation in the midline or paraspinal region of the cervical or thoracic spine. She is tender to palpation over the midline and paraspinal regions the lower lumbar spine ROM: Range of motion is intact in all major muscle groups of the bilateral upper extremities Range of motion is intact in all major muscle groups of the bilateral lower extremities, difficulty with straight leg raise on the left lower extremity Logroll maneuver reproduces no pain in the groin bilaterally Plantar flexion, dorsiflexion, EHL, FHL are intact bilaterally Sensory Exam: Senory exam to light touch is intact C5-T1 Senosry exam to light touch is intact L2-S1 Motor: 5 out of 5 strength is appreciated in the bilateral upper extremities with shoulder abduction, forward elevation, elbow flexion, elbow extension, wrist e xtension, wrist flexion 4/5 strength is appreciated in the left lower extremity with hip flexion, knee flexion, plantar flexion, FHL. 5/5 strength is appreciated in the left lower extremity with knee extension, dorsiflexion, EHL. 5 out of 5 strength is appreciated in the right lower extremity with hip flexion, knee flexion, knee extension, dorsiflexion, plantar flexion, EHL, FHL Special tests: Negative Latricia's bilaterally Negative Babinski bilaterally Negative clonus bilaterally Results - Labs Labs: Abnormal Lab Results - Last 24 Hours (Table) 12/18/20 12/18/20 Range/Units 04:26 04:26 WBC 3.7 L (3.8-10.6) k/uL MCV 100.4 H (80.0-100.0) fL Lymphocytes # 0.4 L (1.0-4.8) k/uL Sodium 129 L (137-145) mmol/L BUN 5 L (7-17) mg/dL Creatinine 0.33 L (0.52-1.04) mg/dL Glucose 304 H (74-99) mg/dL AST 65 H (14-36) U/L H & H 12/18/20 Range/Units 04:26 Hgb 15.0 (11.4-16.0) gm/dL Hct 43.2 (34.0-46.0) % Result Diagrams: 12/18/20 04:26 12/18/20 04:26 - Diagnostic results CT scan - lumbar myelogram: image reviewed Assessment and Plan Assessment: Low back pain Multilevel lumbar spine spondylosis Likely disc herniation L4-L5 Alcohol abuse Other medical comorbidities Plan: I was able to discuss the case, including with physical exam findings and imaging studies my attending Dr. White. An MRI of the lumbar spine will be ordered for further evaluation. Pain control, patient was started on Decadron 4 mg every 6 hours along with Flexeril 10 mg twice a day. Continue use of the Toradol as needed try to avoid narcotics at this time DVT prophylaxis per primary medical service Weight-bear as tolerated with walker We'll reassess and discuss further treatment after lumbar imaging We'll be available for any further questions regarding the patient Time with Patient: Less than 30
[2020-12-18 11:22] VITALS: BMI 19.6
--- NOTE | 2020-12-18 13:18 | P.PN ---
Subjective Progress Note Date: 12/18/20 Pt reports some improvement in pain, but still significant discomfort. Also with left LE weakness. Objective - Vital Signs Vital signs: Vital Signs Temp 97.6 F 12/18/20 07:00 Pulse 98 12/18/20 12:00 Resp 16 12/18/20 07:26 BP 175/95 12/18/20 07:00 Pulse Ox 95 12/18/20 07:00 Intake & Output 12/17/20 12/18/20 12/18/20 18:59 06:59 18:59 Weight 43.091 kg 43.091 kg 45.677 kg Other: Voiding Method Toilet Toilet # Voids 3 3 - Exam Gen: awake, alert HEENT: normocephalic, atraumatic, good hearing acuity, moist mucous membranes Resp: good air exchange, breathing comfortably with no accessory muscle use CVS: good distal perfusion x 4, GI: soft, NTTP, ND : no SPT, no CVAT, orellana catheter not present MSK: no pitting edema, no clubbing Neuro: non-focal, moving all extremities Psych: cooperative, euthymic mood - Labs CBC & Chem 7: 12/18/20 04:26 12/18/20 04:26 Labs: Abnormal Lab Results - Last 24 Hours (Table) 12/18/20 12/18/20 Range/Units 04:26 04:26 WBC 3.7 L (3.8-10.6) k/uL MCV 100.4 H (80.0-100.0) fL Lymphocytes # 0.4 L (1.0-4.8) k/uL Sodium 129 L (137-145) mmol/L BUN 5 L (7-17) mg/dL Creatinine 0.33 L (0.52-1.04) mg/dL Glucose 304 H (74-99) mg/dL AST 65 H (14-36) U/L Assessment and Plan Assessment: Herniated lumbar disc with radiculopathy Pain control Orthopedic evaluation Computed tomography scan showed disc herniation L4L5 level MRI L-spine, pending No acute fractures Pain control with opiates and NSAIDs Hypertensive urgency Clonidine when necessary for systolic above 180 Resume home meds History of seizure disorder Resume Keppra Tobacco smoking Dictating replacement therapy Alcohol dependence Monitor for early signs of alcohol withdrawal syndrome Benzodiazepines per CIWA scale Thiamine by mouth Gentle IV fluid hydration DVT prophylaxis mechanical Anticipated length of stay less than 2 midnights Anticipated discharge to home
[2020-12-18 14:57] VITALS: BP 173/91; PULSE 75; TEMP 98.2
[2020-12-18] MEDS ORDERED: DEXAMETHASONE SOD PHOSPHATE 4 MG/ML 1 ML VIAL IV SCH (15:00)
--- NOTE | 2020-12-18 15:09 | MR ---
EXAMINATION TYPE: MR lumbar spine wo con DATE OF EXAM: 12/18/2020 COMPARISON: None HISTORY: LBP, BLE weakness. TECHNIQUE: Multiplanar, multisequence images of the lumbar spine were acquired. L1-L2: Normal disc appearance without desiccation. No herniation, protrusion or disc bulging. No ca nal stenosis is present. Foramina are patent bilaterally. L2-L3: Normal disc appearance without desiccation. No herniation, protrusion or disc bulging. No ca nal stenosis is present. Foramina are patent bilaterally. L3-L4: Normal disc appearance without desiccation. No herniation, protrusion or disc bulging. No ca nal stenosis is present. Foramina are patent bilaterally. L4-L5: Mild decreased signal and loss of height compatible with degenerative disc disease. Left parac entral disc herniation resulting in left lateral recess stenosis and left foraminal encroachment. No evidence for central stenosis. L5-S1: Mild degenerative disc disease. Mild posterior disc bulge. No evidence for herniation protrusi on or central stenosis. Foramina are patent. Lumbar segments are intact. No paraspinal masses are identified. Conus medullaris has a normal appe arance. IMPRESSION: 1. Subligamentous disc herniation L4-5 left paracentral component and left lateral recess stenosis an d foraminal encroachment.
[2020-12-18] MEDS: MORPHINE SULFATE 4 MG/ML SYRINGE IV PRN (16:10)
[2020-12-18] MEDS ORDERED: THIAMINE 100 MG TAB PO SCH (17:30)
--- NOTE | 2020-12-19 09:53 | P.DS ---
Providers Date of admission: 12/18/20 14:12 Expected date of discharge: 12/18/20 Attending physician: Kelsey Segura MD Consults: 12/17/20 21:51 Consult Physician Routine Consulting Provider: Grzegorz White Consult Reason/Comments: Intractable back pain Do you want consulting provider notified?: Yes Primary care physician: Stated None Hospital Course: Patient left AMA overnight before my shift. Plan - Discharge Summary Discharge Rx Participant: No New Discharge Prescriptions: No Action levETIRAcetam [Keppra] 500 mg PO BID Discharge Medication List levETIRAcetam [Keppra] 500 mg PO BID 10/23/20 [History] Follow up Appointment(s)/Referral(s): None,Stated [Primary Care Provider] - 1-2 days Patient Instructions/Handouts: Acute Low Back Pain (ED) Activity/Diet/Wound Care/Special Instructions: P Discharge Disposition: Left Against Medical Advice
== END 2020-12-18 16:55 | disposition left against medical advice (07) | DRG 552 ==
LOC: EC 17:12 → 6NMEDSUR 20:11 → OBSVTOIN 12-18 14:12
PROVIDERS: ADMIT Internal Medicine; ATTEND Internal Medicine
DX: M51.16 Intervertebral disc disorders with radiculopathy, lumbar region (principal); G89.29 Other chronic pain; Z79.899 Other long term (current) drug therapy; M47.26 Other spondylosis with radiculopathy, lumbar region; J45.40 Moderate persistent asthma, uncomplicated; F17.200 Nicotine dependence, unspecified, uncomplicated; F12.90 Cannabis use, unspecified, uncomplicated; F10.20 Alcohol dependence, uncomplicated; F32.9 Major depressive disorder, single episode, unspecified; F41.9 Anxiety disorder, unspecified; G40.909 Epilepsy, unspecified, not intractable, without status epilepticus; I10 Essential (primary) hypertension; I16.0 Hypertensive urgency
CPT/HCPCS: 72131; 72148; 80053; 85025; 94640; 96372; 96374; 96375; 99285

== ENCOUNTER 2020-12-19 15:01 | Observation (INO) | payer OTHER ==
[2020-12-19] MEDS ORDERED: MORPHINE SULFATE 4 MG/ML SYRINGE IVP STA (15:20)
[2020-12-19] MEDS ORDERED: DIAZEPAM 5 MG/ML 2 ML INJ IVP STA (15:20)
[2020-12-19] MEDS ORDERED: KETOROLAC 15 MG/ML 1 ML VIAL IVP STA (15:22)
--- NOTE | 2020-12-19 15:30 | ED ---
General Adult HPI - General Chief complaint: Back Pain/Injury Stated complaint: back pain Time Seen by Provider: 12/19/20 15:12 Source: patient, RN notes reviewed, old records reviewed Mode of arrival: ambulatory Limitations: no limitations - History of Present Illness Initial comments: 54-year-old female presents for reevaluation of back pain. Patient was admitted to this institution, left yesterday prior to discharge. She states she had a in the family and needed to leave urgently. She stated that she would return for completion of her treatment. She's had low back pain. On the left side with shooting pain into the left leg. She has had some weakness in that leg. She had an MRI completed on her prior admission. She had no fever. No chest pain or abdominal pain. No bowel or bladder incontinence. - Related Data Home Medications Medication Instructions Recorded Confirmed levETIRAcetam [Keppra] 500 mg PO BID 10/23/20 12/17/20 Allergies Allergy/AdvReac Type Severity Reaction Status Date / Time Penicillins Allergy Rash/Hives/ Verified 12/19/20 16:42 Swelling sertraline HCl [From Zoloft] AdvReac Suicidal/Ag Verified 12/19/20 16:42 ression Review of Systems ROS Statement: Those systems with pertinent positive or pertinent negative responses have been documented in the HPI. ROS Other: All systems not noted in ROS Statement are negative. Past Medical History Past Medical History: Asthma, Hypertension, Seizure Disorder History of Any Multi-Drug Resistant Organisms: None Reported Past Surgical History: Section, Tubal Ligation Additional Past Surgical History / Comment(s): ankle, exploratory lap Past Anesthesia/Blood Transfusion Reactions: No Reported Reaction Past Psychological History: Anxiety, Depression Smoking Status: Current every day smoker Past Alcohol Use History: Daily, Heavy Past Drug Use History: Marijuana - Past Family History Mother Family Medical History: Liver Disease Father Family Medical History: Cancer General Exam Limitations: no limitations General appearance: alert, in no apparent distress Head exam: Present: atraumatic, normocephalic Eye exam: Present: normal appearance, PERRL ENT exam: Present: normal exam Neck exam: Present: normal inspection. Absent: tenderness, meningismus Respiratory exam: Present: normal lung sounds bilaterally. Absent: respiratory distress, wheezes Cardiovascular Exam: Present: regular rate, normal rhythm GI/Abdominal exam: Present: soft. Absent: distended, tenderness, guarding Extremities exam: Present: normal inspection, normal capillary refill Back exam: Present: normal inspection, paraspinal tenderness (Lumbar). Absent: vertebral tenderness Neurological exam: Present: alert, oriented X3, motor sensory deficit (5 out of 5 strength in upper extremities, 4/5 strength in the left lower extremity, 5 out of 5 right lower extremity.) Psychiatric exam: Present: normal affect, normal mood Skin exam: Present: warm, dry, intact. Absent: cyanosis, diaphoretic Course Vital Signs 12/19/20 15:08 Temperature 98.5 F Pulse Rate 85 Respiratory 16 Rate Blood Pressure 142/99 O2 Sat by Pulse 99 Oximetry Medical Decision Making - Medical Decision Making 54-year-old female presenting for reevaluation of low back pain. Patient states she had the AGAINST MEDICAL ADVICE secondary to a in the family. She has returned to complete her treatment course. I did discuss case both with the admitting physician Dr. Woodard and with Bentley mcgovern for advanced orthopedics. - Lab Data Result diagrams: 12/19/20 15:36 12/19/20 15:36 Lab Results 12/19/20 12/19/20 12/19/20 Range/Units 15:36 15:36 15:36 WBC 6.6 (3.8-10.6) k/uL RBC 4.25 (3.80-5.40) m/uL Hgb 15.2 (11.4-16.0) gm/dL Hct 42.2 (34.0-46.0) % MCV 99.1 (80.0-100.0) fL MCH 35.7 H (25.0-35.0) pg MCHC 36.1 (31.0-37.0) g/dL RDW 12.9 (11.5-15.5) % Plt Count 198 (150-450) k/uL MPV 7.1 Neutrophils % 66 % Lymphocytes % 19 % Monocytes % 12 % Eosinophils % 1 % Basophils % 0 % Neutrophils # 4.4 (1.3-7.7) k/uL Lymphocytes # 1.3 (1.0-4.8) k/uL Monocytes # 0.8 (0-1.0) k/uL Eosinophils # 0.1 (0-0.7) k/uL Basophils # 0.0 (0-0.2) k/uL PT 9.5 (9.0-12.0) sec INR 0.9 (<1.2) APTT 22.7 (22.0-30.0) sec Sodium 138 (137-145) mmol/L Potassium 3.2 L (3.5-5.1) mmol/L Chloride 100 (98-107) mmol/L Carbon Dioxide 25 (22-30) mmol/L Anion Gap 13 mmol/L BUN <2 L (7-17) mg/dL Creatinine 0.39 L (0.52-1.04) mg/dL Est GFR (CKD-EPI)AfAm >90 (>60 ml/min/1.73 sqM) Est GFR (CKD-EPI)NonAf >90 (>60 ml/min/1.73 sqM) Glucose 101 H (74-99) mg/dL Calcium 9.7 (8.4-10.2) mg/dL Total Bilirubin 0.5 (0.2-1.3) mg/dL AST 79 H (14-36) U/L ALT 36 H (4-34) U/L Alkaline Phosphatase 69 (38-126) U/L Total Protein 7.3 (6.3-8.2) g/dL Albumin 4.9 (3.5-5.0) g/dL Disposition Clinical Impression: Intractable back pain Disposition: ADMITTED IP TO THIS [facility] Condition: Stable Is patient prescribed a controlled substance at d/c from ED?: No Referrals: None,Stated [Primary Care Provider] - 1-2 days Decision to Admit Reason: Admit from EC Decision Date: 12/19/20 Decision Time: 16:46
[2020-12-19 15:42] LABS: Basophils % (A) 0 %; Eosinophils # (A) 0.1 k/uL (0-0.7); Eosinophils % (A) 1 %; HCT 42.2 % (34.0-46.0); HGB 15.2 gm/dL (11.4-16.0); Lymphocytes # (A) 1.3 k/uL (1.0-4.8); Lymphocytes % (A) 19 %; MCH 35.7 pg (25.0-35.0); MCHC 36.1 g/dL (31.0-37.0); MCV 99.1 fL (80.0-100.0); Mean Platelet Volume 7.1; Monocytes # (A) 0.8 k/uL (0-1.0); Monocytes % (A) 12 %; Neutrophils # (A) 4.4 k/uL (1.3-7.7); Neutrophils % (A) 66 %; Platelet Count 198 k/uL (150-450); RBC 4.25 m/uL (3.80-5.40); RDW 12.9 % (11.5-15.5); WBC 6.6 k/uL (3.8-10.6)
[2020-12-19 15:51] LABS: INR 0.9 (<1.2); Partial Thromboplastin Time 22.7 sec (22.0-30.0); Prothrombin Time 9.5 sec (9.0-12.0)
[2020-12-19 16:01] LABS: ALT 36 U/L (4-34); AST 79 U/L (14-36); African American GFR (CKD) >90 (>60 ml/min/1.73 sqM); Albumin 4.9 g/dL (3.5-5.0); Alkaline Phosphatase 69 U/L (38-126); Anion Gap 13 mmol/L; Blood Urea Nitrogen <2 mg/dL (7-17); Calcium 9.7 mg/dL (8.4-10.2); Carbon Dioxide 25 mmol/L (22-30); Chloride 100 mmol/L (98-107); Glucose 101 mg/dL (74-99); Non-African American GFR(CKD) >90 (>60 ml/min/1.73 sqM); Potassium 3.2 mmol/L (3.5-5.1); Sodium 138 mmol/L (137-145); Total Bilirubin 0.5 mg/dL (0.2-1.3); Total Protein 7.3 g/dL (6.3-8.2)
[2020-12-19] MEDS ORDERED: ACETAMINOPHEN TAB 325 MG TAB PO PRN (16:42)
[2020-12-19] MEDS ORDERED: NALOXONE 0.4 MG/ML 1 ML VIAL IV PRN ×2 (16:42→16:50)
[2020-12-19] MEDS ORDERED: SODIUM CHLORIDE 0.9% 1,000 ML IV SCH (16:45)
[2020-12-19] MEDS ORDERED: ALBUTEROL NEBULIZED 2.5 MG/3 ML INHALATION PRN (16:49)
[2020-12-19] MEDS ORDERED: DOCUSATE 100 MG CAP PO PRN (16:50)
[2020-12-19] MEDS ORDERED: bisacodyL 5 MG TABLET.DR PO PRN (16:50)
[2020-12-19] MEDS ORDERED: LORazepam 2 MG/ML INJ IV PRN ×3 (16:52)
[2020-12-19] MEDS ORDERED: THIAMINE 100 MG/ML 2 ML VIAL IM STA (16:52)
[2020-12-19] MEDS ORDERED: hydrALAZINE HCL 25 MG TAB PO PRN (17:23)
--- NOTE | 2020-12-19 17:26 | P.HPIM ---
History of Present Illness H&P Date: 12/19/20 Chief Complaint: Back pain 54 year old woman with history of seizures and asthma with suspected ETOH abuse disorder presented for back pain and falls. Patient was admitted from 12/17-12/18, but left AMA overnight due to concerns over a passed family member. Upon returning home, she had intended to go to [place] for the services, but couldn't tolerate the pain from her back and also had a couple falls due to left leg weakness resulting in her leg giving out. Because of this, she realized she was better served completing treatment for her back pain issues. On previous admis chava, she was seen by ortho surgery, who had ordered an MRI of the L-spine. Results of the imaging demonstrated subligamentous disc herniation from L4-5 of the left paracentral component and left lateral recess stenosis with foraminal encroachment. Pt denied f/c, n/v/c/d, abd pain, cp, palps, flushing, syncope, numbness of extremities. Reports LLE weakness. Review of Systems All Systems reviewed and pertinent positives and negatives noted in HPI, all other symptoms are negative Past Medical History Past Medical History: Asthma, Hypertension, Seizure Disorder History of Any Multi-Drug Resistant Organisms: None Reported Past Surgical History: Section, Tubal Ligation Additional Past Surgical History / Comment(s): ankle, exploratory lap Past Anesthesia/Blood Transfusion Reactions: No Reported Reaction Past Psychological History: Anxiety, Depression Smoking Status: Current every day smoker Past Alcohol Use History: Daily, Heavy Past Drug Use History: Marijuana - Past Family History Mother Family Medical History: Liver Disease Father Family Medical History: Cancer Medications and Allergies Home Medications Medication Instructions Recorded Confirmed Type levETIRAcetam [Keppra] 500 mg PO BID 10/23/20 12/19/20 History Albuterol Sulfate [Proair Hfa] 2 puff INHALATION RT-Q4H PRN 12/19/20 12/19/20 History Allergies Allergy/AdvReac Type Severity Reaction Status Date / Time Penicillins Allergy Rash/Hives/ Verified 12/19/20 16:42 Swelling sertraline HCl [From Zoloft] AdvReac Suicidal/Ag Verified 12/19/20 16:42 ression Physical Exam Osteopathic Statement: *. No significant issues noted on an osteopathic structural exam other than those noted in the History and Physical/Consult. Vitals: Vital Signs Temp Pulse Resp BP Pulse Ox 12/19/20 15:08 98.5 F 85 16 142/99 99 Intake and Output 12/19/20 12/19/20 12/19/20 06:59 14:59 22:59 Other: Weight 45.359 kg Gen: awake, alert HEENT: normocephalic, atraumatic, good hearing acuity, moist mucous membranes Resp: good air exchange, breathing comfortably with no accessory muscle use CVS: good distal perfusion x 4, GI: soft, NTTP, ND : no SPT, no CVAT, orellana catheter not present MSK: no pitting edema, no clubbing Neuro:, Mild left lower extremity weakness Psych: cooperative, euthymic mood Results CBC & Chem 7: 12/19/20 15:36 12/19/20 15:36 Labs: Abnormal Lab Results - Last 24 Hours (Table) 12/19/20 12/19/20 Range/Units 15:36 15:36 MCH 35.7 H (25.0-35.0) pg Potassium 3.2 L (3.5-5.1) mmol/L BUN <2 L (7-17) mg/dL Creatinine 0.39 L (0.52-1.04) mg/dL Glucose 101 H (74-99) mg/dL AST 79 H (14-36) U/L ALT 36 H (4-34) U/L Assessment and Plan Assessment: Herniated lumbar disc with radiculopathy Orthopedic evaluation Computed tomography scan showed disc herniation L4L5 level MRI L-spine, subligamentous disc herniation from L4-5 of the left paracentral component and left lateral recess stenosis with foraminal encroachment Pain control with opiates and NSAIDs; dexamethasone 4mg q6h + valium 5mg q8h PT/OT Hypertensive urgency Hydralazine when necessary for systolic above 160 or DBP > 100 Resume home meds History of seizure disorder Resume Keppra Tobacco smoking Dictating replacement therapy Alcohol dependence Monitor for early signs of alcohol withdrawal syndrome Valium TID as above for back pain and to reduce withdrawal symptoms Ativan PRN per CIWA for breakthrough Thiamine, folic acid, MVI by mouth DVT prophylaxis with enoxaparin Anticipated length of stay less than 2 midnights Anticipated discharge to home
[2020-12-19 18:08] LABS: Glucose,Whole Blood 200 mg/dL (75-99)
[2020-12-19] MEDS: MORPHINE SULFATE 4 MG/ML SYRINGE IV PRN ×2 (18:10→22:01)
[2020-12-19] MEDS: INSULIN ASPART (NovoLOG) 100 UNIT/ML VIAL SQ SCH (18:11)
[2020-12-19] MEDS: DEXAMETHASONE SOD PHOSPHATE 4 MG/ML 1 ML VIAL IV SCH ×2 (18:11→23:12)
[2020-12-19] MEDS: diazePAM 5 MG TAB PO SCH (18:11)
[2020-12-19] MEDS: levETIRAcetam 500 MG TAB PO SCH (20:17)
[2020-12-19] MEDS: HYDROcodone/APAP 5-325MG 1 EACH TAB PO PRN (20:17)
[2020-12-19] MEDS: KETOROLAC 15 MG/ML 1 ML VIAL IVP PRN (21:01)
[2020-12-20] MEDS: MORPHINE SULFATE 4 MG/ML SYRINGE IV PRN ×3 (03:18→11:59)
[2020-12-20] MEDS: diazePAM 5 MG TAB PO SCH ×2 (03:22→08:17)
[2020-12-20 05:04] LABS: Basophils % (A) 0 %; Eosinophils % (A) 1 %; HCT 40.9 % (34.0-46.0); HGB 14.2 gm/dL (11.4-16.0); Lymphocytes # (A) 0.3 k/uL (1.0-4.8); Lymphocytes % (A) 12 %; MCH 34.9 pg (25.0-35.0); MCHC 34.8 g/dL (31.0-37.0); MCV 100.5 fL (80.0-100.0); Mean Platelet Volume 6.9; Monocytes # (A) 0.2 k/uL (0-1.0); Monocytes % (A) 7 %; Neutrophils % (A) 79 %; Platelet Count 180 k/uL (150-450); RBC 4.07 m/uL (3.80-5.40); RDW 13.1 % (11.5-15.5); WBC 2.6 k/uL (3.8-10.6)
[2020-12-20] MEDS: DEXAMETHASONE SOD PHOSPHATE 4 MG/ML 1 ML VIAL IV SCH ×2 (05:49→11:53)
[2020-12-20] MEDS: KETOROLAC 15 MG/ML 1 ML VIAL IVP PRN (05:53)
[2020-12-20 07:58] LABS: Glucose,Whole Blood 143 mg/dL (75-99)
[2020-12-20] MEDS: INSULIN ASPART (NovoLOG) 100 UNIT/ML VIAL SQ SCH ×2 (08:17→11:49)
[2020-12-20] MEDS: levETIRAcetam 500 MG TAB PO SCH (08:17)
[2020-12-20] MEDS ORDERED: FOLIC ACID 1 MG TAB PO SCH (09:00)
[2020-12-20] MEDS ORDERED: THIAMINE 100 MG TAB PO SCH (09:00)
[2020-12-20] MEDS ORDERED: ENOXAPARIN 40 MG/0.4 ML SYRINGE SQ SCH (09:00)
[2020-12-20] MEDS ORDERED: MULTIVITAMINS, THERA 1 EACH TAB PO SCH (09:00)
[2020-12-20 10:56] LABS: African American GFR (CKD) 137.8 (60.0-200.0); Anion Gap 9.6 mmol/L (4.00-12.00); Calcium 8.8 mg/dL (8.7-10.3); Carbon Dioxide 22.4 mmol/L (21.6-31.8); Magnesium 1.8 mg/dL (1.5-2.4); Non-African American GFR(CKD) 118.9 (60.0-200.0); Potassium 3.7 mmol/L (3.5-5.5)
[2020-12-20] MEDS: HYDROcodone/APAP 5-325MG 1 EACH TAB PO PRN ×2 (11:02→15:09)
[2020-12-20 11:28] LABS: Glucose,Whole Blood 110 mg/dL (75-99)
[2020-12-20 13:03] VITALS: BP 169/95; PULSE 62; RESP 18; TEMP 97.6
--- NOTE | 2020-12-20 13:48 | P.PAINCN ---
History of Present Illness - Reason for Consult Consult date: 12/20/20 - History of Present Illness This is a 54-year-old patient referred by orthopedics team with primary co mplaint of low back and left leg pain. She was Helping her neighbor lift something when she felt pain in her low back and radiated to the posterior and anterior aspect of her left leg. She reports pain in the low back as well as left lower extremity described as numb and tingling. Of note she is a chronic drinker and drinks several beers a day as well as a chronic smoker smoking both marijuana and tobacco. Has had a history of low back pain for many years but has never been evaluated. Does not have an MRI until this hospital visit. Has never had any injections or surgery. Orthopedic team did evaluate her and thought that she would be a good candidate for injections, however she was given enoxaparin this morning. In addition to above, 13-point review of systems is also negative for chest pain, shortness of breath, changes in vision, changes in hearing, new onset weakness, abdominal pain, diarrhea, extreme fatigue, malaise, fever, skin changes, homicidal or suicidal ideation, or bowel or bladder incontinence. Physical exam: Vital Signs: Reviewed in EMR GENERAL: Well appearing, in no acute distress PSYCH: Mood and affect is appropriate. Awake, alert, and oriented SKIN: Skin color, texture, turgor normal, no rashes or lesions HEENT: Normocephalic, atraumatic. EOM intact CV: No pedal edema RESP: Respirations are unlabored, no audible wheezing GI: Abdomen non-distended MUSCULOSKELETAL: Bilateral upper and lower extremity strength is normal and symmetric. No atrophy or tone abnormalities are noted. Neck: No pain to palpation over the cervical paraspinous muscles. Spurling negative, Axial Loading Test negative, Chanel's sign negative. No pain with neck flexion, extension, or lateral flexion. No obvious deformity or signs of trauma. Normal cervical lordotic curve and normal cervical spine range of motion Lumbar spine: Straight leg raising in the sitting position is positive for pain on the left side. No pain to palpation over the lumbar spine and paraspinous muscles. Negative for pain with facet loading and back extension/rotation. Normal range of motion without pain reproduction Buttocks: No pain to palpation over the PSIS, Shanell test is negative Extremities: Peripheral joint ROM is full and pain free except in left lower extremity, difficulty with hip flexion.. No edema or skin discolorations noted. Gait: Gait is limited due to pain NEUR: Bilateral upper and lower extremity coordination and muscle stretch reflexes are physiologic and symmetric. Negative clonus. No loss of sensation is noted. Cranial nerves are grossly intact. Imaging: Lumbar MRI shows a left paracentral disc herniation at L4-L5 with lateral recess stenosis and left foraminal encroachment. Assessment: 1. Lumbar disc herniation Plan: - I do think this patient would be a good candidate for epidural steroid injection, specifically interlaminar at L4-L5. However given that she was given Lovenox this morning, according to the [place] [employer] we must wait at least 12 hours prior to doing an injection. Unfortunately at 8 pm or later there will be no one available to do any injections. She can schedule this with us as an outpatient - In the meantime can change her medications to tylenol 1000 mg Q12H scheduled (due to her alcohol history), toradol 15 mg IV Q6H scheduled, and gabapentin 300 mg TID for her neuropathic pain. I spent 50 minutes on patient care today. The time was used to review medical records including relevant urine studies and prescription history (MAPs), review of the available imaging, evaluation and examination the patient, coordination of care at the medical staff and if applicable referring physicians, as well as creation of the medical record. Past Medical History Past Medical History: Asthma, Hypertension, Seizure Disorder History of Any Multi-Drug Resistant Organisms: None Reported Past Surgical History: Section, Tubal Ligation Additional Past Surgical History / Comment(s): ankle, exploratory lap Past Anesthesia/Blood Transfusion Reactions: No Reported Reaction Past Psychological History: Anxiety, Depression Smoking Status: Current every day smoker Past Alcohol Use History: Daily, Heavy Additional Past Alcohol Use History / Comment(s): pt. states she drinks four beers daily Past Drug Use History: Marijuana Additional Drug Use History / Comment(s): pt reports mj use daily. Pt reports that she recently used took some pain medication - Past Family History Mother Family Medical History: Liver Disease Additional Family Medical History / Comment(s): Alcohol related Father Family Medical History: Cancer Additional Family Medical History / Comment(s): Lung Medications and Allergies Home Medications Medication Instructions Recorded Confirmed Type levETIRAcetam [Keppra] 500 mg PO BID 10/23/20 12/19/20 History Albuterol Sulfate [Proair Hfa] 2 puff INHALATION RT-Q4H PRN 12/19/20 12/19/20 History Allergies Allergy/AdvReac Type Severity Reaction Status Date / Time Penicillins Allergy Rash/Hives/ Verified 12/19/20 16:42 Swelling sertraline HCl [From Zoloft] AdvReac Suicidal/Ag Verified 12/19/20 16:42 ression Physical Exam Vitals: Vital Signs Temp Pulse Pulse Resp BP BP Pulse Ox 12/20/20 13:02 97.6 F 62 18 169/95 98 12/20/20 11:41 74 12/20/20 11:29 68 12/20/20 04:55 98.5 F 54 L 16 173/98 98 12/19/20 20:30 97.4 F L 78 16 156/83 99 12/19/20 18:15 86 16 139/82 100 12/19/20 15:08 98.5 F 85 16 142/99 99 Intake and Output 12/19/20 12/20/20 12/20/20 22:59 06:59 14:59 Intake Total 600 Balance 600 Intake: Intake, IV Titration 200 Amount Sodium Chloride 0.9% 1, 200 000 ml @ 20 mls/hr IV . Q24H [facility] Rx#:[id number] Oral 400 Other: Voiding Method Bedside Commode Bedside Commode # Voids 4 Weight 45.359 kg Results CBC & Chem 7: 12/20/20 04:42 12/20/20 04:42 Labs: Abnormal Lab Results - Last 24 Hours (Table) 12/19/20 12/19/20 12/19/20 Range/Units 15:36 15:36 18:01 WBC (3.8-10.6) k/uL MCV (80.0-100.0) fL MCH 35.7 H (25.0-35.0) pg Lymphocytes # (1.0-4.8) k/uL Potassium 3.2 L (3.5-5.1) mmol/L BUN <2 L (7-17) mg/dL Creatinine 0.39 L (0.52-1.04) mg/dL Glucose 101 H (74-99) mg/dL POC Glucose (mg/dL) 200 H (75-99) mg/dL AST 79 H (14-36) U/L ALT 36 H (4-34) U/L 12/20/20 12/20/20 12/20/20 Range/Units 04:42 04:42 07:56 WBC 2.6 L (3.8-10.6) k/uL MCV 100.5 H (80.0-100.0) fL MCH (25.0-35.0) pg Lymphocytes # 0.3 L (1.0-4.8) k/uL Potassium (3.5-5.1) mmol/L BUN 6.0 L (7-17) mg/dL Creatinine 0.4 L (0.52-1.04) mg/dL Glucose 146 H (74-99) mg/dL POC Glucose (mg/dL) 143 H (75-99) mg/dL AST (14-36) U/L ALT (4-34) U/L 12/20/20 Range/Units 11:27 WBC (3.8-10.6) k/uL MCV (80.0-100.0) fL MCH (25.0-35.0) pg Lymphocytes # (1.0-4.8) k/uL Potassium (3.5-5.1) mmol/L BUN (7-17) mg/dL Creatinine (0.52-1.04) mg/dL Glucose (74-99) mg/dL POC Glucose (mg/dL) 110 H (75-99) mg/dL AST (14-36) U/L ALT (4-34) U/L PQRS Measure Charge Sheet PQRS Narrative: Smoking Status Current every day smoker Blood Pressure [Right Arm] 169/95 Blood Pressure 139/82 Pain Intensity [Lower Back] 8 Pain Intensity 8 Pain Scale Used Numeric (1 - 10) Scale Used Numeric (1 - 10) Home Medications: Ambulatory Orders levETIRAcetam [Keppra] 500 mg PO BID 10/23/20 Albuterol Sulfate [Proair Hfa] 2 puff INHALATION RT-Q4H PRN 12/19/20
--- NOTE | 2020-12-20 14:13 | P.CNOR ---
History of Present Illness - [facility] Consult date: 12/20/20 Consult reason: low back pain History of present illness: Patient is a 54-year-old female who was initially evaluated on 12/18/2020 with regards to low back pain with radicular symptoms in her left lower extremity. Patient initially had a CAT scan while she was here, an MRI was also ordered with high suspicion of her herniated disc. The MRI was done while the patient was in the hospital, shortly after the patient did leave [place]. We were unable to discuss the findings with the patient at bedside prior to her leaving the hospital. Patient reported back to the hospital on 12/19/2020 with regards to the same symptoms with no improvement. She states that there was a in her family which caused her to leave [place]. Patient was started on a muscle relaxer along with IV steroids, she received only a few doses of those. She states that the symptoms are about the same. She notes discomfort in the lower lumbar region more on the left-hand side, this does trend down the back or leg past her knee down to her foot. She denies any symptoms of the right lower extremity, this to include numbness and tingling or pain. She denies any pain/numbness or tingling/weakness in the bilateral upper extremities. She denies any loss of bowel and bladder function, she denies any perianal or general numbness or tingling. Patient is a chronic drinker, she also has a chronic tobacco user and occasional marijuana user. Review of Systems Constitutional: Reports as per [facility] Past Medical History Past Medical History: Asthma, Hypertension, Seizure Disorder History of Any Multi-Drug Resistant Organisms: None Reported Past Surgical History: Section, Tubal Ligation Additional Past Surgical History / Comment(s): ankle, exploratory lap Past Anesthesia/Blood Transfusion Reactions: No Reported Reaction Past Psychological History: Anxiety, Depression Smoking Status: Current every day smoker Past Alcohol Use History: Daily, Heavy Additional Past Alcohol Use History / Comment(s): pt. states she drinks four beers daily Past Drug Use History: Marijuana Additional Drug Use History / Comment(s): pt reports mj use daily. Pt reports that she recently used took some pain medication - Past Family History Mother Family Medical History: Liver Disease Additional Family Medical History / Comment(s): Alcohol related Father Family Medical History: Cancer Additional Family Medical History / Comment(s): Lung Medications and Allergies Home Medications Medication Instructions Recorded Confirmed Type levETIRAcetam [Keppra] 500 mg PO BID 10/23/20 12/19/20 History Albuterol Sulfate [Proair Hfa] 2 puff INHALATION RT-Q4H PRN 12/19/20 12/19/20 History Allergies Allergy/AdvReac Type Severity Reaction Status Date / Time Penicillins Allergy Rash/Hives/ Verified 12/19/20 16:42 Swelling sertraline HCl [From Zoloft] AdvReac Suicidal/Ag Verified 12/19/20 16:42 ression Physical Examination Gen: AOx3, NAD VSS stable at this time Integument: No obvious open lesions or sores are present throughout the cervical, thoracic or lumbar spine. No obvious areas of erythema or soft tissue swelling present Palpation: Patient is nontender with palpation in the midline or paraspinal region of the cervical or thoracic spine. She is tender to palpation over the midline and paraspinal regions the lower lumbar spine ROM: Range of motion is intact in all major muscle groups of the bilateral upper extremities Range of motion is intact in all major muscle groups of the bilateral lower extremities, difficulty with straight leg raise on the left lower extremity Logroll maneuver reproduces no pain in the groin bilaterally Plantar flexion, dorsiflexion, EHL, FHL are intact bilaterally Sensory Exam: Senory exam to light touch is intact C5-T1 Senosry exam to light touch is intact L2-S1 Motor: 5 out of 5 strength is appreciated in the bilateral upper extremities with shoulder abduction, forward elevation, elbow flexion, elbow extension, wrist extension, wrist flexion 4/5 strength is appreciated in the left lower extremity with hip flexion, knee flexion, plantar flexion, FHL. 5/5 strength is appreciated in the left lower extremity with knee extension, dorsiflexion, EHL. 5 out of 5 strength is appreciated in the right lower extremity with hip flexion, knee flexion, knee extension, dorsiflexion, plantar flexion, EHL, FHL Special tests: Negative Latricia's bilaterally Negative Babinski bilaterally Negative clonus bilaterally Results - Labs Labs: Abnormal Lab Results - Last 24 Hours (Table) 12/19/20 12/19/20 12/19/20 Range/Units 15:36 15:36 18:01 WBC (3.8-10.6) k/uL MCV (80.0-100.0) fL MCH 35.7 H (25.0-35.0) pg Lymphocytes # (1.0-4.8) k/uL Potassium 3.2 L (3.5-5.1) mmol/L BUN <2 L (7-17) mg/dL Creatinine 0.39 L (0.52-1.04) mg/dL Glucose 101 H (74-99) mg/dL POC Glucose (mg/dL) 200 H (75-99) mg/dL AST 79 H (14-36) U/L ALT 36 H (4-34) U/L 12/20/20 12/20/20 12/20/20 Range/Units 04:42 04:42 07:56 WBC 2.6 L (3.8-10.6) k/uL MCV 100.5 H (80.0-100.0) fL MCH (25.0-35.0) pg Lymphocytes # 0.3 L (1.0-4.8) k/uL Potassium (3.5-5.1) mmol/L BUN 6.0 L (7-17) mg/dL Creatinine 0.4 L (0.52-1.04) mg/dL Glucose 146 H (74-99) mg/dL POC Glucose (mg/dL) 143 H (75-99) mg/dL AST (14-36) U/L ALT (4-34) U/L 12/20/20 Range/Units 11:27 WBC (3.8-10.6) k/uL MCV (80.0-100.0) fL MCH (25.0-35.0) pg Lymphocytes # (1.0-4.8) k/uL Potassium (3.5-5.1) mmol/L BUN (7-17) mg/dL Creatinine (0.52-1.04) mg/dL Glucose (74-99) mg/dL POC Glucose (mg/dL) 110 H (75-99) mg/dL AST (14-36) U/L ALT (4-34) U/L H & H 12/19/20 12/20/20 Range/Units 15:36 04:42 Hgb 15.2 14.2 (11.4-16.0) gm/dL Hct 42.2 40.9 (34.0-46.0) % Coagulation 12/19/20 Range/Units 15:36 INR 0.9 (<1.2) Result Diagrams: 12/20/20 04:42 12/20/20 04:42 Assessment and Plan Assessment: Low back pain with left lower extremity radicular symptoms L4-L5 HNP Alcohol abuse Other medical comorbidities Plan: I was able to discuss the case, including with physical exam findings and imaging studies my attending Dr. White. No emergent orthopedic spine surgery recommended at this time. We'll restart the Decadron 4 mg IV every 6 hours, we'll also begin Flexeril 10 mg twice a day Pain management has evaluated the patient, she is a good candidate for a epidural steroid injection. Patient did receive Lovenox early this morning, and they recommended 12 hours prior to any injection. Anesthesia services will not be available for injection this weekend, they are recommending follow-up in the outpatient setting. They did begin her on Tylenol 1000 mg every 12 hours, IV Toradol and gabapentin for pain control. Other medical specialty recommendations Weight-bear as tolerated, recommend use of walker Discharge planning: An orthopedic standpoint patient is stable for discharge and follow-up in the outpatient setting after epidural steroid injection Time with Patient: Less than 30
[2020-12-20] MEDS ORDERED: CYCLOBENZAPRINE 10 MG TAB PO PRN (14:19)
[2020-12-20 14:39] VITALS: BMI 19.5
[2020-12-20] MEDS ORDERED: GABAPENTIN 300 MG CAP PO SCH (16:00)
--- NOTE | 2020-12-20 16:15 | P.DS ---
Providers Date of admission: 12/19/20 16:53 Expected date of discharge: 12/20/20 Attending physician: Carlotta Woodard MD Consults: 12/19/20 16:44 Consult Physician Routine Consulting Provider: Grzegorz White Consult Reason/Comments: Herniated disc, intractable back pain Do you want consulting provider notified?: Already Contacted 12/19/20 16:57 Consult Physician Routine Consulting Provider: Mattie Choi Consult Reason/Comments: Lumbar disk herniation, possible lumbar JED Do you want consulting provider notified?: Yes Primary care physician: Stated None Hospital Course: 54 year old woman with history of seizures and asthma with suspected ETOH abuse disorder presented for back pain and falls. Patient was admitted from 12/17-12/18, but left AMA overnight due to concerns over a passed family member. Upon returning home, she had intended to go to [place] for the services, but couldn't tolerate the pain from her back and also had a couple falls due to left leg weakness resulting in her leg giving out. Because of this, she realized she was better served completing treatment for her back pain issues. On previous admission, she was seen by ortho surgery, who had ordered an MRI of the L-spine. Results of the imaging demonstrated subligamentous disc herniation from L4-5 of the left paracentral component and left lateral recess stenosis with foraminal encroachment. Pt denied f/c, n/v/c/d, abd pain, cp, palps, flushing, syncope, numbness of extremities. Reports LLE weakness. Herniated lumbar disc with radiculopathy Patient seen and evaluated by ortho, who recommended MRI. The results of the imaging demonstrated subligamentous disc herniation from L4-5 of the left paracentral component and left lateral recess stenosis with foraminal encroachment. No surgical intervention was warranted, however, pain management was consulted for pain control. They recommended outpatient steroid injection. Also started KRISTEN, tylenol, norco, valium PRN. Patient had been receiving dexamethasone for pain control while in house, which was d/c'd as outpatient. Pt to f/u in pain clinic and with ortho/spine surgery. Hypertensive urgency Hydralazine when necessary for systolic above 160 or DBP > 100 On discharge, she was started on amlodipine 10mg daily. History of seizure disorder Resumed Keppra Tobacco smoking NRT while in house, smoking cessation counseling given. Alcohol dependence Thiamine, folic acid, MVI by mouth given for 14 days on discharge. Assessment: Gen: awake, alert HEENT: normocephalic, atraumatic, good hearing acuity, moist mucous membranes Resp: good air exchange, breathing comfortably with no accessory muscle use CVS: good distal perfusion x 4, GI: soft, NTTP, ND : no SPT, no CVAT, orellana catheter not present MSK: no pitting edema, no clubbing Neuro:, Mild left lower extremity weakness Psych: cooperative, euthymic mood Patient Condition at Discharge: Good Plan - Discharge Summary New Discharge Prescriptions: New Folic Acid 1 mg PO DAILY #14 tab Multivitamins, Thera [Multivitamin (formulary)] 1 each PO DAILY #14 tab Gabapentin [Neurontin] 300 mg PO TID #9 cap Sennosides/Docusate Sodium [Senna Plus 8.6-50 mg Tablet] 1 each PO BID #28 tablet Thiamine [Vitamin B-1] 100 mg PO DAILY #14 tab HYDROcodone/APAP 5-325MG [[place] 5-325] 1 each PO Q4HR PRN #18 tab PRN Reason: Moderate Pain diazePAM [Valium] 5 mg PO Q8H PRN #9 tab PRN Reason: Pain Continue levETIRAcetam [Keppra] 500 mg PO BID Albuterol Sulfate [Proair Hfa] 2 puff INHALATION RT-Q4H PRN PRN Reason: Shortness Of Breath Discharge Medication List levETIRAcetam [Keppra] 500 mg PO BID 10/23/20 [History] Albuterol Sulfate [Proair Hfa] 2 puff INHALATION RT-Q4H PRN 12/19/20 [History] Folic Acid 1 mg PO DAILY #14 tab 12/20/20 [Rx] Gabapentin [Neurontin] 300 mg PO TID #9 cap 12/20/20 [Rx] HYDROcodone/APAP 5-325MG [[place] 5-325] 1 each PO Q4HR PRN #18 tab 12/20/20 [Rx] Multivitamins, Thera [Multivitamin (formulary)] 1 each PO DAILY #14 tab 12/20/20 [Rx] Sennosides/Docusate Sodium [Senna Plus 8.6-50 mg Tablet] 1 each PO BID #28 tablet 12/20/20 [Rx] Thiamine [Vitamin B-1] 100 mg PO DAILY #14 tab 12/20/20 [Rx] diazePAM [Valium] 5 mg PO Q8H PRN #9 tab 12/20/20 [Rx] Follow up Appointment(s)/Referral(s): [facility]-STA[facility]] - 1 Week (Pain clinic will contact patient with appointment date and time once they recieve physician order and authorization from patient's insurance company.) None,Stated [Primary Care Provider] - 1-2 days Grzegorz White DO [Doctor of Osteopathic Medicine] - 2 Weeks (Patient is to call [facility] and schedule appointment with Dr. White when she has the date for her last epidural injection.) Patient Instructions/Handouts: Low Back Strain (DC), Lumbar Radiculopathy (GEN) Discharge Disposition: HOME WITH HOME HEALTH SERVICES
[2020-12-20] MEDS ORDERED: KETOROLAC 15 MG/ML 1 ML VIAL IVP SCH (18:00)
[2020-12-20] MEDS ORDERED: ACETAMINOPHEN TAB 325 MG TAB PO SCH (21:00)
== END 2020-12-20 16:29 | disposition home health service (06) ==
LOC: EC 15:01 → 5NMEDONC 16:53
PROVIDERS: ADMIT Internal Medicine; ATTEND Internal Medicine
DX: M51.16 Intervertebral disc disorders with radiculopathy, lumbar region (principal); M48.061 Spinal stenosis, lumbar region without neurogenic claudication; I16.0 Hypertensive urgency; F10.20 Alcohol dependence, uncomplicated; G40.909 Epilepsy, unspecified, not intractable, without status epilepticus; I10 Essential (primary) hypertension; J45.909 Unspecified asthma, uncomplicated; F32.9 Major depressive disorder, single episode, unspecified; F41.9 Anxiety disorder, unspecified; F17.200 Nicotine dependence, unspecified, uncomplicated; R29.6 Repeated falls; Z79.899 Other long term (current) drug therapy; Z88.0 Allergy status to penicillin; Z88.8 Allergy status to other drugs, medicaments and biological substances; Z91.81 History of falling; Z83.79 Family history of other diseases of the digestive system; Z80.1 Family history of malignant neoplasm of trachea, bronchus and lung
CPT/HCPCS: 96376 ×3; 96372 ×2; 96375 ×2; 96374; 99284; 36415; 94640; 97162; 80053; 80048; 83735; 85025 ×2; 85610; 85730; G0378 ×2; J2060; J2270 ×2; J1100 ×2; J3411; J3360; J1650; J1885 ×2

== ENCOUNTER 2021-01-06 19:38 | Emergency (ER) | payer OTHER ==
--- NOTE | 2021-01-06 20:14 | ED ---
General Adult HPI - General Source: police, RN notes reviewed Mode of arrival: wheelchair Limitations: no limitations <Tray Alfred - Last Filed: 01/06/21 20:12> <Mateo Stewart - Last Filed: 01/07/21 06:49> - General Chief complaint: Psychiatric Symptoms Stated complaint: ETOH Time Seen by Provider: 01/06/21 20:03 - History of Present Illness Initial comments: Patient is a pleasant 55-year-old female presenting to the emergency department with depression and suicidal thoughts. Patient does drink alcohol and was drinking today. Patient has been upset lately. Patient does have thoughts of self-harm. No specific plan. Patient was brought in by police. Patient has chronic lower back problem that is part of the reason she has depression. No acute worsening of symptoms of back problems (Tray Alfred) - Related Data Home Medications Medication Instructions Recorded Confirmed levETIRAcetam [Keppra] 500 mg PO BID 10/23/20 01/06/21 Albuterol Sulfate [Proair Hfa] 2 puff INHALATION RT-Q4H PRN 12/19/20 01/06/21 Multivitamins, Thera [Multivitamin 1 tab PO DAILY 01/06/21 01/06/21 (formulary)] Sennosides/Docusate Sodium [Senna 1 tab PO BID 01/06/21 01/06/21 Plus 8.6-50 mg Tablet] Previous Rx's Medication Instructions Recorded Folic Acid 1 mg PO DAILY #14 tab 12/20/20 Thiamine [Vitamin B-1] 100 mg PO DAILY #14 tab 12/20/20 amLODIPine [Norvasc] 10 mg PO DAILY #30 tablet 12/20/20 Allergies Allergy/AdvReac Type Severity Reaction Status Date / Time Penicillins Allergy Rash/Hives/ Verified 01/06/21 21:55 Swelling sertraline HCl [From Zoloft] AdvReac Suicidal/Ag Verified 01/06/21 21:55 ression Review of Systems ROS Other: All systems not noted in ROS Statement are negative. Constitutional: Denies: fever Eyes: Denies: eye pain ENT: Denies: ear pain Respiratory: Denies: cough Cardiovascular: Denies: chest pain Endocrine: Denies: fatigue Gastrointestinal: Denies: abdominal pain Genitourinary: Denies: dysuria Musculoskeletal: Reports: as per HPI Skin: Denies: rash Psychiatric: Reports: anxiety, depression <Tray Alfred - Last Filed: 01/06/21 20:12> ROS Other: All systems not noted in ROS Statement are negative. <Mateo Stewart - Last Filed: 01/07/21 06:49> ROS Statement: Those systems with pertinent positive or pertinent negative responses have been documented in the HPI. Past Medical History Past Medical History: Asthma, Hypertension, Seizure Disorder History of Any Multi-Drug Resistant Organisms: None Reported Past Surgical History: Section, Tubal Ligation Additional Past Surgical History / Comment(s): ankle, exploratory lap Past Anesthesia/Blood Transfusion Reactions: No Reported Reaction Past Psychological History: Anxiety, Depression Smoking Status: Current every day smoker Past Alcohol Use History: Daily, Heavy Past Drug Use History: Marijuana - Past Family History Mother Family Medical History: Liver Disease Additional Family Medical History / Comment(s): Alcohol related Father Family Medical History: Cancer Additional Family Medical History / Comment(s): Lung <Tray Alfred - Last Filed: 01/06/21 20:12> General Exam Limitations: no limitations General appearance: alert, appears intoxicated Head exam: Present: normocephalic Eye exam: Present: normal appearance Neck exam: Present: normal inspection Respiratory exam: Present: normal lung sounds bilaterally Cardiovascular Exam: Present: regular rate, normal rhythm GI/Abdominal exam: Present: soft. Absent: tenderness Extremities exam: Present: normal inspection Neurological exam: Present: alert Psychiatric exam: Present: depressed, anxious Skin exam: Present: normal color <Tray Alfred - Last Filed: 01/06/21 20:12> Course <Mateo Stewart - Last Filed: 01/07/21 06:49> Vital Signs 01/06/21 01/06/21 19:40 21:00 Temperature 98.8 F Pulse Rate 102 H 123 H Respiratory 18 18 Rate Blood Pressure 179/104 118/85 O2 Sat by Pulse 98 98 Oximetry - Reevaluation(s) Reevaluation #1: 01/07/21 06:48 Medical record is reviewed (Mateo Stewart) Reevaluation #2: 01/07/21 06:48 Medical clear for psychiatric evaluation (Mateo Stewart) Medical Decision Making <Mateo Stewart - Last Filed: 01/07/21 06:49> - Medical Decision Making 55 female to the ER for evaluation patient seen in however psychiatry, no longer intoxicated not homicidal or suicidal patient can be discharged home (Mateo Stewart) - Lab Data Lab Results 01/06/21 Range/Units 20:18 Urine Opiates Screen Not Detected (NotDetected) Ur Oxycodone Screen Not Detected (NotDetected) Urine Methadone Screen Not Detected (NotDetected) Ur Propoxyphene Screen Not Detected (NotDetected) Ur Barbiturates Screen Not Detected (NotDetected) U Tricyclic Antidepress Not Detected (NotDetected) Ur Phencyclidine Scrn Not Detected (NotDetected) Ur Amphetamines Screen Not Detected (NotDetected) U Methamphetamines Scrn Not Detected (NotDetected) U Benzodiazepines Scrn Detected H (NotDetected) Urine Cocaine Screen Not Detected (NotDetected) U Marijuana (THC) Screen Detected H (NotDetected) Disposition <Tray Alfred - Last Filed: 01/06/21 20:12> Is patient prescribed a controlled substance at d/c from ED?: No <Mateo Stewart - Last Filed: 01/07/21 06:49> Clinical Impression: Alcohol intoxication, Depression Disposition: HOME SELF-CARE Condition: Fair Instructions (If sedation given, give patient instructions): Abuse of Alcohol (ED) Referrals: None,Stated [Primary Care Provider] - 1-2 days
[2021-01-06] MEDS ORDERED: LORazepam 1 MG TAB PO STA (20:40)
[2021-01-06 20:57] LABS: Amphetamine Screen,Urine Not Detected (NotDetected); Barbiturate Screen,Urine Not Detected (NotDetected); Benzodiazepines Screen,Urine Detected (NotDetected); Cocaine Screen,Urine Not Detected (NotDetected); Methadone Screen, Urine Not Detected (NotDetected); Opiate Screen,Urine Not Detected (NotDetected); Oxycodone Screen, Urine Not Detected (NotDetected); Phencyclidine Screen,Urine Not Detected (NotDetected); Tricyclic Antidepressant,Urine Not Detected (NotDetected); Urn Cannabinoid Scrn Detected (NotDetected)
[2021-01-06] MEDS: levETIRAcetam 500 MG TAB PO SCH (22:01)
[2021-01-07] MEDS ORDERED: HYDROcodone/APAP 5-325MG 1 EACH TAB PO STA (02:19)
[2021-01-07] MEDS ORDERED: LORazepam 1 MG TAB PO STA ×2 (02:19→08:06)
[2021-01-07] MEDS: levETIRAcetam 500 MG TAB PO SCH (08:10)
[2021-01-07 08:12] VITALS: BP 139/78; PULSE 109; RESP 16; TEMP 98
== END 2021-01-07 08:13 | disposition home or self-care (01) ==
LOC: EC 19:38
DX: F10.129 Alcohol abuse with intoxication, unspecified (principal); F32.9 Major depressive disorder, single episode, unspecified; R45.851 Suicidal ideations; J45.909 Unspecified asthma, uncomplicated; I10 Essential (primary) hypertension; G40.909 Epilepsy, unspecified, not intractable, without status epilepticus; F41.9 Anxiety disorder, unspecified; F12.90 Cannabis use, unspecified, uncomplicated; F17.200 Nicotine dependence, unspecified, uncomplicated; Z79.51 Long term (current) use of inhaled steroids; Z88.0 Allergy status to penicillin; Y90.9 Presence of alcohol in blood, level not specified
CPT/HCPCS: 80306; 82075; 99285

== ENCOUNTER 2021-01-21 08:01 | Day surgery (SDC) | payer OTHER ==
[2021-01-17 15:05] VITALS: BMI 19.5
[2021-01-21 08:45] VITALS: TEMP 98
[2021-01-21] MEDS ORDERED: LACTATED RINGERS 1,000 ML IV ONE (08:52)
[2021-01-21] MEDS ORDERED: fentaNYL (PF) 50 MCG/ML 2 ML AMP ONE (09:00)
[2021-01-21] MEDS ORDERED: methylPREDNISolone ACETATE 40 MG/ML 1 ML VIAL ONE (09:00)
[2021-01-21] MEDS ORDERED: MIDAZOLAM 2 MG/2 ML VIAL ONE (09:00)
[2021-01-21] MEDS ORDERED: IOPAMIDOL M200 10 ML VIAL ONE (09:00)
--- NOTE | 2021-01-21 09:09 | P.PCN ---
Date of Procedure: 01/21/21 Procedure(s) Performed: PREOPERATIVE DIAGNOSIS: 1- Lumbar herniated Disc Diseases POSTOPERATIVE DIAGNOSIS: Same as preop diagnosis. PROCEDURE 1. Lumbar epidural steroid injection under fluoroscopic guidance at the L4-5 level. (Fluoroscopy imaging was available in radiology department) 2. Lumbar epidurogram. ANESTHESIA: Local with 1% lidocaine 3 ml and , moderate sedation with intravenous Versed 2 mg ,and fentanyle 100 Mcg EBL: Minimal PROCEDURE INDICATION: The patient with low back pain and radiculitis symptoms unresponsive to conservative treatment. Fluoroscopy was used to optimize visualization of the needle placement and to maximize safety. PROCEDURE DESCRIPTION / TECHNIQUE: The patient was seen and identified in the preoperative area. Risks, benefits, complications including but not limited to infections ,bleeding ,allergic reaction to the medications ,nerve damage and not complete pain releife , and alternatives were discussed with the patient. The patient agreed to proceed with the procedure and signed the consent. IV was started, and vital signs were stable. Patient was taken to the OR and time out was completed. The patient was placed in the prone position on procedure table and a pillow was placed under the abdomen to reduce lumbar lordosis. The lumbosacral area was prepped and draped in the usual sterile fashion.ere closely monitored during the procedure. Conscious sedation was used during the procedure to decrease patients anxiety. Vital signs was monitered during the entire procedure. Using anterior-posterior fluoroscopy, the L4-5interlaminar space was identified and the skin over this site was marked and then infiltrated with 1% lidocaine subcutaneously. Subsequently, a 20-gauge Tuohy epidural needle was inserted and advanced toward the epidural space using the ``Loss of resistance technique and guided by AP and lateral fluoroscopy. The correct needle position in the epidural space was verified with the injection of 2 mL of the water soluble contrast dye Isovue 200 contrast and observing an excellent epidurogram with the epidural spread of the dye, after negative aspiration for blood and CSF and in the absence of paresthesias. Again after negative aspiration, a 6 ml mixture containing 80 mg of Depo-medrol , and 2 ml of preservative free Normal Saline, and 2 ml of preservative free lidocaine 1% solution was injected and a washout of epidurogram was seen. Needle was withdrawn intact, skin was cleansed, and bandages were applied. COMPLICATIONS: None DISPOSITION / PLANS: The patient was placed in a supine position and transferred to the recovery area in a stable condition for observation. There was no evidence of lower extremity motor or sensory deficit after the procedure. Patient was discharged from the recovery room after meeting discharge criteria. Home discharge instructions were given to the patient by the staff. The patient was reexamined prior to discharge. The patient will schedule a follow up in the clinic in 2-4 weeks.
--- NOTE | 2021-01-21 09:16 | FL ---
EXAMINATION TYPE: FL guided pain mgmt statistic DATE OF EXAM: 01/21/2021 HISTORY: Fluoroscopy time 1 seconds of fluoroscopy provided. IMPRESSION: 1. Fluoroscopy time.
[2021-01-21 09:17] VITALS: RESP 16
[2021-01-21 09:31] VITALS: BP 155/92; PULSE 69
[2021-01-21] MEDS ORDERED: IV FLUID CONTINUATION 1,000 ML IV ONE (09:31)
== END 2021-01-21 09:48 | disposition home or self-care (01) ==
LOC: ORPAIN 08:01
PROVIDERS: ATTEND Specialist
DX: M51.26 Other intervertebral disc displacement, lumbar region (principal)
CPT/HCPCS: 62323; J2250; J1030; J3010; Q9966

== ENCOUNTER 2021-04-08 06:54 | Day surgery (SDC) | payer OTHER ==
[2021-04-04 16:20] VITALS: BMI 18.5
[~2021-04-08 06:54] MED LIST: LIDOCAINE 1% (10MG/ML) FOR IV START INTRADERMA PRN
[2021-04-08 07:34] VITALS: TEMP 97.6
[2021-04-08] MEDS: LACTATED RINGERS 1,000 ML IV SCH ×2 (07:48→08:01)
[2021-04-08] MEDS ORDERED: methylPREDNISolone ACETATE 40 MG/ML 1 ML VIAL ONE (08:02)
[2021-04-08] MEDS ORDERED: IOPAMIDOL M200 10 ML VIAL ONE (08:02)
[2021-04-08] MEDS ORDERED: fentaNYL (PF) 50 MCG/ML 2 ML AMP ONE (08:02)
[2021-04-08] MEDS ORDERED: MIDAZOLAM 2 MG/2 ML VIAL ONE (08:02)
--- NOTE | 2021-04-08 08:18 | P.PCN ---
Date of Procedure: 04/08/21 Procedure(s) Performed: PREOPERATIVE DIAGNOSIS: 1- Lumbar herniated Disc Diseases. POSTOPERATIVE DIAGNOSIS: Same as preop diagnosis. PROCEDURE 1. Lumbar epidural steroid injection under fluoroscopic guidance at the L4-5 level. (Fluoroscopy imaging was available in radiology department) 2. Lumbar epidurogram. ANESTHESIA: Local with 1% lidocaine 3 ml and , moderate sedation with intravenous Versed 2 mg ,and fentanyle 100 Mcg EBL: Minimal PROCEDURE INDICATION: The patient with low back pain and radiculitis symptoms unresponsive to conservative treatment. Fluoroscopy was used to optimize visualization of the needle placement and to maximize safety. PROCEDURE DESCRIPTION / TECHNIQUE: The patient was seen and identified in the preoperative area. Risks, benefits, complications including but not limited to infections ,bleeding ,allergic reaction to the medications ,nerve damage and not complete pain releife , and alternatives were discussed with the patient. The patient agreed to proceed with the procedure and signed the consent. IV was started, and vital signs were stable. Patient was taken to the OR and time out was completed. The patient was placed in the prone position on procedure table and a pillow was placed under the abdomen to reduce lumbar lordosis. The lumbosacral area was prepped and draped in the usual sterile fashion.ere closely monitored during the procedure. Conscious sedation was used during the procedure to decrease patients anxiety. Vital signs was monitered during the entire procedure. Using anterior-posterior fluoroscopy, the L4-5interlaminar space was identified and the skin over this site was marked and then infiltrated with 1% lidocaine subcutaneously. Subsequently, a 20-gauge Tuohy epidural needle was inserted and advanced toward the epidural space using the ``Loss of resistance technique and guided by AP and lateral fluoroscopy. The correct needle position in the epidural space was verified with the injection of 2 mL of the water soluble contrast dye Isovue 200 contrast and observing an excellent epidurogram with the epidural spread of the dye, after negative aspiration for blood and CSF and in the absence of paresthesias. Again after negative aspiration, a 6 ml mixture containing 80 mg of Depo-medrol , and 2 ml of preservative free Normal Saline, and 2 ml of preservative free lidocaine 1% solution was injected and a washout of epidurogram was seen. Needle was withdrawn intact, skin was cleansed, and bandages were applied. COMPLICATIONS: None DISPOSITION / PLANS: The patient was placed in a supine position and transferred to the recovery area in a stable condition for observation. There was no evidence of lower extremity motor or sensory deficit after the procedure. Patient was discharged from the recovery room after meeting discharge criteria. Home discharge instructions were given to the patient by the staff. The patient was reexamined prior to discharge. The patient will schedule a follow up in the clinic in 2-4 weeks.
[2021-04-08] MEDS ORDERED: IV FLUID CONTINUATION 1,000 ML IV ONE ×2 (08:20)
[2021-04-08 08:26] VITALS: RESP 18
[2021-04-08 09:00] VITALS: BP 162/92; PULSE 81
--- NOTE | 2021-04-08 09:00 | FL ---
EXAMINATION TYPE: FL guided pain mgmt statistic DATE OF EXAM: 04/08/2021 CLINICAL HISTORY: Low back pain. TECHNIQUE: Fluoroscopy. COMPARISON: None. FINDINGS: Fluoroscopic guidance was provided during pain relief procedure performed by Dr. Choi . A total of 12 seconds of fluoroscopic time was utilized during the procedure and 1 spot images are acquired. Single image acquired shows needle localization with contrast injection at roughly L5 lev el. IMPRESSION: As Above.
== END 2021-04-08 09:02 | disposition home or self-care (01) ==
LOC: ORPAIN 06:54
PROVIDERS: ATTEND Specialist
DX: M51.26 Other intervertebral disc displacement, lumbar region (principal)
CPT/HCPCS: 62323; J2250; J1030; J3010; Q9966; 99152

== ENCOUNTER → 2021-05-26 | Outpatient (CLI) | payer OTHER ==
--- NOTE | 2021-05-26 11:56 | P.PAINPG ---
Subjective Progress Note Date: 05/26/21 Principal diagnosis: Lumbar back pain is a 55-year-old pleasant female came to the [facility] pain clinic for postprocedure evaluation. Patient had L4-L5 lumbar epidural steroid injection 2 with minimal pain relief.. Patient has ongoing pain for many years. Patient is actively participating physical exercises at home with minimal pain relief. Patient describes pain is aching, throbbing, constant type of pain. Pain is radiating to left lower extremity sometimes causing numbness and tingling sensation. Patient rated pain levels are 8 out of 10 in severity. With the help of medications pain levels are 6 out of 10 in severity. Activities making pain worse. Medications, resting, physical therapy exercises helping in relieving patient's pain. Patient pain some days better than others. Overall activities decreased secondary to pain. Because of the pain sometimes patient is feeling lack of sleep, interest, and energy. Denied any side effects with the medications. Denied any bowel or bladder problems at this time. Patient is using walker for walking support. Patient denies any suicidal or homicidal ideations intent or plan. Patient denies any auditory or visual hallucinations. Patient denied any red flag symptoms related to pain. 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 Sensation grossly intact Lower extremity: Normal strength, and decreased range of motion secondary to pain Lumbar spine: Paravertebral tenderness: positive Lumbar facet load test : positive Sacroiliac joint tenderness: Positive Thigh thrust test: Positive SI joint compression test: Positive Fabere test: Positive Multiple trigger points positive lower lumbar area - Constitutional Constitutional Comment(s): 13 point review of symptoms negative except as mentioned in the history of present illness Assessment and Plan Assessment: Lumbar spondylosis without myelopathy Lumbar radiculopathy Myofascial pain syndrome, and chronic pain syndrome Secondary to joint dysfunction Plan: #1 Diagnoses, prognosis, and multiple treatment options including but not limited to physical therapy, interventional therapy, adjunct medication therapy, narcotic medication, and surgical options were discussed with the patient. And all questions were answered to the patient's satisfaction. #2 treatment plan agreement : Patient was thoroughly discussed regarding the treatment options, alternatives, and importance of exercises as tolerated. Patient clearly understood. #3 Patient was counseled on importance of regular exercise. Including rina chi, aerobic exercises as tolerated. Which helps for chronic pain, and overall well- being. Patient also counseled regarding importance of weight control rolling chronic pain, and overall other health issues. By altering diet habits, minimizing sugar intake, and processed foods helps in minimizing Inflammation. Also discussed with the patient regarding intermittent fasting. Patient counseled regarding smoking associated with chronic pain, worsening inflammation, and smoking effects on liver, and medication metabolism. And encouraged to stop smoking. #4 investigations: MAPS- reviewed , urine drug test- reviewed #5 diagnostic tests: None #6 consultation : None # 7 interventional procedures: Bilateral lumbar L4-L5, and L5-S1 medial branch block #1 . Procedure, complications, alternatives discussed with the patient. #8 medications #1 Tylenol 500 mg by mouth every 8 hours as needed total dose not more than 5 mg Medication side effects, complications, long-term consequences discussed with the patient. Patient recommended to contact the pain clinic if noticed any issues with given medications. #9 morphine milligrams equivalents dose ( MME) per day: 0 from the pain clinic. # 10 TENS unit's, and percussion massage device #11 disposition: scheduled to follow up with pain clinic in 4 weeks duration. Time with Patient: Less than 30 PQRS Measure Charge Sheet Measure #130: Documentation of Current Meds in Medical Chart: Patient's medications documented in chart Measure #226: Tobacco Use: Screen & Cessation Intervention: Pt screened for tob acco use AND intervention given Measure #111: Pneumonia Vaccination: Pneumococcal vaccine NOT administered or previously given Measure #47: Advance Care Plan: Advance care planning discussed & documented, pt chose/unable to give Measure #412: Opioid Treatment Agreement: No documentation of signed opioid treatment agreement Measure #408: Opioid Therapy Follow-up Evaluation: Patient had NO f/u eval minimum every 3 months during opioid therapy Measure #317: Preventitive Care & Scrn High Bld Press & F/U: Pre-hypertensive or hypertensive BP documented, pt will f/u with PCP Measure #128: Body Mass Index (BMI) Screening & Follow-up: BMI documented within normal parameters Measure #131: Pain Assessment & Follow-up: Pain positive & plan documented Measure #431: Unhealthy Alcohol Use Preventative Care & Scrn: Patient not identified as an unhealthy alcohol user PQRS Narrative: Smoking Status Current every day smoker Pain Intensity [Lower Back] 8 Scale Used Numeric (1 - 10) Hx Alcohol Use (MH) Yes Home Medications: Ambulatory Orders levETIRAcetam [Keppra] 500 mg PO BID 10/23/20 Albuterol Sulfate [Proair Hfa] 2 puff INHALATION Q6H PRN 12/19/20 Prazosin [Minipress] 1 mg PO HS 05/22/21 Controlled Substance Measures - Controlled Substance Measures Is patient prescribed a controlled substance at discharge?: No
[2021-05-26 12:00] VITALS: BP 171/106; PULSE 91; RESP 18; TEMP 98.8
== END ==
LOC: PNWHC3 11:21
DX: M47.26 Other spondylosis with radiculopathy, lumbar region (principal); M79.18 Myalgia, other site; G89.4 Chronic pain syndrome; F17.200 Nicotine dependence, unspecified, uncomplicated; Z88.0 Allergy status to penicillin; Z88.6 Allergy status to analgesic agent; Z88.8 Allergy status to other drugs, medicaments and biological substances
CPT/HCPCS: 99211

== ENCOUNTER 2021-08-08 18:26 | Emergency (ER) | payer OTHER ==
--- NOTE | 2021-08-08 19:48 | ED ---
General Adult HPI - General Chief complaint: Skin/Abscess/Foreign Body Stated complaint: tick on hip Time Seen by Provider: 08/08/21 19:40 Source: patient, EMS, RN notes reviewed, old records reviewed Mode of arrival: ambulatory - History of Present Illness Initial comments: 55-year-old female presents to the emergency room with complaints of chronic left leg pain. She is scheduled to have another spinal injection for this pain on August 12. She states that she also has a bump on her left thigh which she thought could be a tick bite. She has seen her doctor who told her to use warm compresses to site but no antibiotics prescribed. Patient is a pack-a-day smoker. She drinks 3 beers daily and did drink today. -: year(s) Location: left, lower extremity (leg) Severity scale (1-10): 8 Consistency: constant Associated Symptoms: other (possible insect bite left thigh) Treatments Prior to Arrival: none - Related Data Home Medications Medication Instructions Recorded Confirmed levETIRAcetam [Keppra] 500 mg PO BID 10/23/20 07/22/21 Albuterol Sulfate [Proair Hfa] 2 puff INHALATION Q6H PRN 12/19/20 07/22/21 Prazosin [Minipress] 1 mg PO HS 05/22/21 07/22/21 Previous Rx's Medication Instructions Recorded Clindamycin HCl 300 mg PO Q6HR 5 Days #20 cap 08/08/21 Allergies Allergy/AdvReac Type Severity Reaction Status Date / Time Penicillins Allergy Rash/Hives/ Verified 07/22/21 15:38 Swelling NSAIDS (Non-Steroidal AdvReac Unknown upset Verified 07/22/21 15:38 Anti-Inflamma stomach sertraline HCl [From Zoloft] AdvReac Suicidal/Ag Verified 07/22/21 15:38 ression Review of Systems ROS Statement: Those systems with pertinent positive or pertinent negative responses have been documented in the HPI. ROS Other: All systems not noted in ROS Statement are negative. Past Medical History Past Medical History: Asthma, Cancer, COPD, Hypertension, Seizure Disorder Additional Past Medical History / Comment(s): LAST SEIZURE - JANUARY 2021, "broken heart syndrome"., elevated liver enzymes, "dislocated disks", hx cervical cancer, "eating disorder"-not sure what History of Any Multi-Drug Resistant Organisms: None Reported Past Surgical History: Section, Heart Catheterization, Tubal Ligation Additional Past Surgical History / Comment(s): ORIF rt ankle/hardware later removed, exploratory lap, PAIN CLINIC PROCEDURE, BILAT CATARACTS REMOVED WITH LENS IMPLANTS, procedure to open a vein in left leg, partial amputation rt hand middle finger, "procedure to remove cervical cancer" Past Anesthesia/Blood Transfusion Reactions: No Reported Reaction Past Psychological History: Anxiety, Bipolar, Depression, PTSD Smoking Status: Current every day smoker Past Alcohol Use History: Abuse Past Drug Use History: Marijuana - Past Family History Father Family Medical History: Cancer, Prostate Disorder, Pulmonary Embolus Additional Family Medical History / Comment(s): Lung Sister(s) Family Medical History: Cancer Brother(s) Family Medical History: Cancer General Exam Limitations: no limitations General appearance: alert, in no apparent distress Respiratory exam: Present: normal lung sounds bilaterally. Absent: chest wall tenderness, accessory muscle use, decreased breath sounds Cardiovascular Exam: Present: regular rate Neurological exam: Present: alert, oriented X3 Psychiatric exam: Present: normal affect, normal mood Skin exam: Present: warm, dry, intact, normal color, other (Left hip 0.5 cm area of induration no erythema or fluctuance). Absent: cyanosis, diaphoretic Course Vital Signs 08/08/21 08/08/21 18:33 20:33 Temperature 98.3 F 98.0 F Pulse Rate 71 70 Respiratory 18 16 Rate Blood Pressure 147/88 140/80 O2 Sat by Pulse 98 97 Oximetry Medical Decision Making - Medical Decision Making Patient presents with 1 week of a possible tick bite to her left hip. States that she seen her doctor who told her that did not appear to be infectious. She has no erythema no drainage. There is no evidence of an insect. There is a 0.5 cm area of induration with minimal erythema from patient picking at it. Patient will be treated with clindamycin for an abscess. She also complains of left leg pain stemming from low back pain and was given [place]. She is scheduled for an injection in her back on August 12. Patient states that she has had these injections in the past for similar pain. Patient instructed to follow-up with the primary care doctor next week and return to the emergency room if any new or concerning symptoms. Case discussed with Dr. Clifton Disposition Clinical Impression: Abscess, Leg pain, left Disposition: HOME SELF-CARE Condition: Good Instructions (If sedation given, give patient instructions): Abscess (ED), Leg Pain (ED) Additional Instructions: Take antibiotics as prescribed and use warm moist compresses to the site of pain and swelling. Keep your appointment on August 12 for your scheduled injection for chronic pain. Prescriptions: Clindamycin HCl 300 mg PO Q6HR 5 Days #20 cap Is patient prescribed a controlled substance at d/c from ED?: No Referrals: [facility] [Primary Care Provider] - 1-2 days Time of Disposition: 20:10
[2021-08-08] MEDS ORDERED: HYDROcodone/APAP 5-325MG 1 EACH TAB PO STA (20:09)
[2021-08-08 20:33] VITALS: BP 140/80; PULSE 70; RESP 16; TEMP 98
== END 2021-08-08 20:33 | disposition home or self-care (01) ==
LOC: EC 18:26
DX: L02.91 Cutaneous abscess, unspecified (principal); M79.605 Pain in left leg; J44.9 Chronic obstructive pulmonary disease, unspecified; I10 Essential (primary) hypertension; G40.909 Epilepsy, unspecified, not intractable, without status epilepticus; F41.9 Anxiety disorder, unspecified; F31.9 Bipolar disorder, unspecified; F43.10 Post-traumatic stress disorder, unspecified; F17.200 Nicotine dependence, unspecified, uncomplicated; F12.90 Cannabis use, unspecified, uncomplicated
CPT/HCPCS: 99283

== ENCOUNTER → 2021-09-05 | Outpatient (CLI) | payer OTHER ==
[2021-09-05 14:38] LABS: Basophils # (A) 0.11 X 10*3/uL (0.00-0.10); Basophils % (A) 1.5 %; Eosinophils # (A) 0.06 X 10*3/uL (0.04-0.35); Eosinophils % (A) 0.8 %; HCT 43.8 % (37.2-46.3); HGB 14.7 g/dL (12.0-15.0); Immature Grans, Automated 0.4 %; Lymphocytes # (A) 1.69 X 10*3/uL (0.90-5.00); Lymphocytes % (A) 22.7 %; MCH 34.3 pg (27.0-32.0); MCHC 33.6 g/dL (32.0-37.0); MCV 102.1 fL (80.0-97.0); Mean Platelet Volume 9.8 fL (9.5-12.2); Monocytes # (A) 0.92 X 10*3/uL (0.20-1.00); Monocytes % (A) 12.4 %; NRBC Per 100 WBC 0 /100 WBCS (0.0-0.0); Neutrophils # (A) 4.62 X 10*3/uL (1.80-7.70); Neutrophils % (A) 62.2 %; Platelet Count 544 X 10*3/uL (140-440); RBC 4.29 X 10*6/uL (4.10-5.20); RDW 13.7 % (11.5-14.5); WBC 7.43 X 10*3/uL (4.50-10.00)
[2021-09-05 14:43] LABS: ALT 19 U/L (8-44); AST 29 U/L (13-35); African American GFR (CKD) 128.3 (60.0-200.0); Albumin 4.8 g/dL (3.8-4.9); Albumin/Globulin Ratio 1.88 (1.60-3.17); Alkaline Phosphatase 90 U/L (41-126); BUN/Creat Ratio 12.16 Ratio (12.00-20.00); Blood Urea Nitrogen 5.9 mg/dL (9.0-27.0); Calcium 10.1 mg/dL (8.7-10.3); Carbon Dioxide 24.8 mmol/L (20.0-27.5); Chloride 104 mmol/L (96-109); Globulin 2.5 g/dL (1.6-3.3); Glucose 71 mg/dL (70-110); Non-African American GFR(CKD) 110.7 (60.0-200.0); Potassium 4.6 mmol/L (3.5-5.5); Sodium 141 mmol/L (135-145); Total Protein 7.3 g/dL (6.2-8.2)
== END | disposition home or self-care (01) ==
LOC: LABWHC1 10:17
PROVIDERS: ATTEND Nurse Practitioner Family
DX: M25.552 Pain in left hip (principal); L02.91 Cutaneous abscess, unspecified; F10.10 Alcohol abuse, uncomplicated
CPT/HCPCS: 36415; 80053; 84443; 85025

== ENCOUNTER 2021-09-26 12:33 | Day surgery (SDC) | payer OTHER ==
[2021-09-03 11:44] VITALS: BMI 19.8
[~2021-09-26 12:33] MED LIST changes: +LACTATED RINGERS 1,000 ML IV SCH; -LIDOCAINE 1% (10MG/ML) FOR IV START INTRADERMA PRN
[2021-09-26 12:56] VITALS: RESP 16; TEMP 98.7
[2021-09-26] MEDS ORDERED: LACTATED RINGERS 1,000 ML IV ONE (13:05)
[2021-09-26] MEDS ORDERED: LIDOCAINE 1% (10MG/ML) FOR IV START INTRADERMA ONE (13:05)
[2021-09-26] MEDS ORDERED: fentaNYL (PF) 50 MCG/ML 2 ML AMP ONE (13:51)
[2021-09-26] MEDS ORDERED: MIDAZOLAM 2 MG/2 ML VIAL ONE (13:51)
[2021-09-26] MEDS ORDERED: ROPIVACAINE 5MG/ML 20ML VIAL ONE (13:51)
[2021-09-26] MEDS ORDERED: methylPREDNISolone ACETATE 40 MG/ML 1 ML VIAL ONE (13:51)
--- NOTE | 2021-09-26 14:08 | P.PCN ---
Date of Procedure: 09/26/21 Procedure(s) Performed: PREOPERATIVE DIAGNOSIS : 1- Lumbar spondylosis with Facet Arthropathy without myelopathy . 2- Lumber degenerative disc disease POSTOPERATIVE DIAGNOSIS: 1- Lumbar spondylosis with Facet Arthropathy without myelopathy . 2- Lumber degenerative disc disease PROCEDURE: Diagnostic bilateral L3 , L4 , and L5 medial branch block under fluoroscopy guidance(fluoroscopy images available in the radiology Department ) ( To target the facet joint between Bilateral L4-5 , and L5-S1 )# 1 St ANESTHESIA:, Monitored anesthesia care as per anesthesia department. EBL: Minimal COMPLICATION: None PROCEDURE INDICATION: Chronic low back pain secondary to Facet arthropathy unresponsive to conservative treatment. PROCEDURE DESCRIPTION: the patient was seen and identified in the preop holding area , risks and benefits and possible complications of the procedure and alternative were discussed with the patient, and the patient agreed to proceed with the procedure and signed the consent and vital signs monitored during the procedure and fluoroscopy was used to maximize the benefit and accuracy of the needle placement, and sedation was given to decrease patient a nxiety, patient was taken to the procedure room and placed in prone position vital signs monitored in the back prepped with chlorhexidine X3 then under strict sterile technique using a right oblique fluoroscopy ,the junction of the transverse process and the superior articulating process of the right L3 , L4 , and L5 vertebra which corresponding to the fluoroscopy image of the eye of the [place] dog on the block side for the medial branches and subsequently , after local infiltration of skin and subcu tissuies with Ropivacaine 0.5 % , one mL at each level ,then 25-gauge Quincke-type needles , 3 needle was used , each one of them placed at the junction of the base of the transverse process and the superior articular process at the appropriate level, and the needle was advanced until the periosteum contacted, needle placement confirmed with AP oblique and lateral view and after appropriate needle placement confirmed, and after negative aspiration for heme and CSF and there was no paresthesia 1-1/2 mL of Ropivacaine 0.5% mixed with 20 mg Depo-Medrol , then half mL injected at each level after negative aspiration the needle subsequently removed and the same procedure repeated for the left side at left side at L3 , L4 and L5 levels. At the end of the procedure and the needles removed and a bandage applied after the skin was cleaned the cleaning solution patient taken to recovery room in stable condition and monitors in the recovery room for 20-30 minutes and discharged home in stable condition after discharge criteria met and patient will follow up with the pain clinic in 2-4 weeks
[2021-09-26] MEDS ORDERED: IV FLUID CONTINUATION 600 ML IV ONE (14:13)
--- NOTE | 2021-09-26 14:24 | FL ---
EXAMINATION TYPE: FL guided pain mgmt statistic DATE OF EXAM: 09/26/2021 CLINICAL HISTORY: Low back pain. TECHNIQUE: Fluoroscopy. COMPARISON: None. FINDINGS: Fluoroscopic guidance was provided during pain relief procedure performed by Dr. Choi . A total of 10 seconds of fluoroscopic time was utilized during the procedure and 4 spot images are acquired. Images acquired shows needle localization at several levels in the lower lumbar spine. IMPRESSION: As Above.
[2021-09-26 14:27] VITALS: BP 125/79; PULSE 69
== END 2021-09-26 14:42 | disposition home or self-care (01) ==
LOC: ORPAIN 12:33
PROVIDERS: ATTEND Specialist
DX: M47.816 Spondylosis without myelopathy or radiculopathy, lumbar region (principal); M51.36 Other intervertebral disc degeneration, lumbar region
CPT/HCPCS: 64493; 64494; J2250; J1030; J3010; J2795

== ENCOUNTER 2021-10-25 21:01 | Observation (INO) | payer OTHER ==
[~2021-10-25 21:01] MED LIST changes: -LACTATED RINGERS 1,000 ML IV SCH; +THIAMINE 100 MG TAB PO SCH
--- NOTE | 2021-10-25 21:30 | ED ---
Chest Pain HPI - General Chief Complaint: Chest Pain Stated Complaint: SOB, Chest Pain Time Seen by Provider: 10/25/21 21:17 Source: patient, EMS Mode of arrival: EMS - History of Present Illness Initial Comments: This patient is a 55-year-old woman who presents to have evaluation of chest pain that is been going on for approximately 3 days now. She states that initially it was intermittent and over the past 24 hours it is been more or less constant and that is why she comes to have evaluation. MD Complaint: chest pain Onset/Timin -: days(s) Onset: during rest Pain Location: substernal Pain Radiation: back Severity: severe Quality: aching Consistency: constant Improves With: nothing Worsens With: nothing Anginal Symptoms: dyspnea Other Symptoms: cough (Chronic) Treatments Prior to Arrival: none - Related Data Home Medications Medication Instructions Recorded Confirmed levETIRAcetam [Keppra] 500 mg PO BID 10/23/20 10/25/21 Prazosin [Minipress] 1 mg PO HS 05/22/21 10/25/21 cloNIDine HCL 0.1 mg PO BID 09/03/21 10/25/21 Ergocalciferol [Vitamin D2 (1250 1,250 mcg PO TU 10/25/21 10/25/21 Mcg = 10322 Iu)] Previous Rx's Medication Instructions Recorded Aspirin 81 mg PO DAILY #30 tab 10/26/21 Atorvastatin [Lipitor] 20 mg PO HS #30 tab 10/26/21 Allergies Allergy/AdvReac Type Severity Reaction Status Date / Time Penicillins Allergy Rash/Hives/ Verified 10/25/21 22:10 Swelling NSAIDS (Non-Steroidal AdvReac Unknown upset Verified 10/25/21 22:10 Anti-Inflamma stomach sertraline HCl [From Zoloft] AdvReac Suicidal/Ag Verified 10/25/21 22:10 ression Review of Systems ROS Statement: Those systems with pertinent positive or pertinent negative responses have been documented in the HPI. ROS Other: All systems not noted in ROS Statement are negative. Constitutional: Denies: fever, chills Respiratory: Reports: cough (Chronic), dyspnea. Denies: hemoptysis Cardiovascular: Reports: chest pain. Denies: palpitations, orthopnea, edema, syncope Gastrointestinal: Denies: abdominal pain, nausea, vomiting, melena, hematochezia Genitourinary: Denies: dysuria, hematuria Musculoskeletal: Denies: back pain Skin: Denies: rash Neurological: Denies: headache, weakness, numbness EKG Findings - EKG Results: EKG: interpreted by SUZY TSE, sinus rhythm (Rate 75 bpm), normal axis, normal QRS, normal ST/T Past Medical History Past Medical History: COPD, Liver Disease, [place] Infarction ([place]), Seizure Disorder Additional Past Medical History / Comment(s): LAST SEIZURE - JANUARY 2021, "broken heart syndrome"., elevated liver enzymes, "dislocated disks", hx cervical cancer, "eating disorder"-not sure what History of Any Multi-Drug Resistant Organisms: None Reported Past Surgical History: Section, Heart Catheterization, Tubal Ligation Additional Past Surgical History / Comment(s): ORIF rt ankle/hardware later removed, exploratory lap, PAIN CLINIC PROCEDURE, BILAT CATARACTS REMOVED WITH LENS IMPLANTS, procedure to open a vein in left leg, partial amputation rt hand middle finger, "procedure to remove cervical cancer" Past Anesthesia/Blood Transfusion Reactions: No Reported Reaction Past Psychological History: Anxiety, Bipolar, Depression, PTSD Smoking Status: Current every day smoker Past Alcohol Use History: Abuse, Heavy Past Drug Use History: None Reported - Past Family History Mother Additional Family Medical History / Comment(s): Alcohol related Father Family Medical History: Cancer, Prostate Disorder, Pulmonary Embolus Additional Family Medical History / Comment(s): Lung cancer. Sister(s) Family Medical History: Cancer Brother(s) Family Medical History: Cancer General Exam General appearance: alert, in no apparent distress Head exam: Present: atraumatic, normocephalic Eye exam: Present: normal appearance. Absent: scleral icterus, conjunctival injection ENT exam: Present: normal oropharynx Neck exam: Present: normal inspection Respiratory exam: Present: wheezes. Absent: respiratory distress, rales, rhon chi, stridor, chest wall tenderness, accessory muscle use, decreased breath sounds Cardiovascular Exam: Present: regular rate, normal rhythm, normal heart sounds. Absent: systolic murmur, diastolic murmur, rubs, gallop GI/Abdominal exam: Present: soft. Absent: distended, tenderness, guarding, rebound, rigid, mass Extremities exam: Present: normal inspection, normal capillary refill. Absent: pedal edema, calf tenderness Back exam: Present: normal inspection. Absent: CVA tenderness (R), CVA te nderness (L) Neurological exam: Present: alert Skin exam: Present: warm, dry, intact, normal color. Absent: rash Course Vital Signs 10/25/21 10/25/21 10/25/21 21:10 22:53 23:53 Temperature 98.2 F 97.8 F Pulse Rate 79 65 61 Respiratory 16 16 16 Rate Blood Pressure 112/78 110/74 111/68 O2 Sat by Pulse 94 L 96 97 Oximetry Disposition Clinical Impression: Chest pain Disposition: ADMITTED IP TO THIS HOSP Condition: Good Is patient prescribed a controlled substance at d/c from ED?: No
--- NOTE | 2021-10-25 21:31 | XR ---
EXAMINATION TYPE: XR chest 2V DATE OF EXAM: 10/25/2021 COMPARISON: NONE HISTORY: Chest pain TECHNIQUE: FINDINGS: Heart and mediastinum are normal. Lungs are clear. Diaphragm is normal. The thorax appears normal. There are chest leads. IMPRESSION: Normal chest.
[2021-10-25 21:57] LABS: Basophils # (A) 0.1 k/uL (0-0.2); Basophils % (A) 1 %; Eosinophils # (A) 0.1 k/uL (0-0.7); Eosinophils % (A) 2 %; HCT 42.2 % (34.0-46.0); HGB 14.3 gm/dL (11.4-16.0); Lymphocytes # (A) 3.2 k/uL (1.0-4.8); Lymphocytes % (A) 51 %; MCH 34.6 pg (25.0-35.0); MCHC 33.8 g/dL (31.0-37.0); MCV 102.4 fL (80.0-100.0); Macrocytosis Slight; Mean Platelet Volume 7.1; Monocytes # (A) 0.6 k/uL (0-1.0); Monocytes % (A) 9 %; Neutrophils # (A) 2.1 k/uL (1.3-7.7); Neutrophils % (A) 34 %; Platelet Count 141 k/uL (150-450); RBC 4.12 m/uL (3.80-5.40); RDW 13.3 % (11.5-15.5); WBC 6.3 k/uL (3.8-10.6)
[2021-10-25 22:11] LABS: Partial Thromboplastin Time 27.4 sec (22.0-30.0); Prothrombin Time 10.5 sec (9.0-12.0)
[2021-10-25] MEDS ORDERED: MORPHINE SULFATE 4 MG/ML SYRINGE IV STA (22:15)
[2021-10-25] MEDS ORDERED: NITROGLYCERIN SL TABS 0.4 MG TAB SUBLINGUAL STA (22:15)
[2021-10-25 22:16] LABS: ALT 25 U/L (4-34); AST 67 U/L (14-36); African American GFR (CKD) >90 (>60 ml/min/1.73 sqM); Albumin 4.6 g/dL (3.5-5.0); Alkaline Phosphatase 78 U/L (38-126); Anion Gap 15 mmol/L; Blood Urea Nitrogen <2 mg/dL (7-17); Calcium 8.7 mg/dL (8.4-10.2); Carbon Dioxide 19 mmol/L (22-30); Chloride 94 mmol/L (98-107); Glucose 95 mg/dL (74-99); Magnesium 1.6 mg/dL (1.6-2.3); Non-African American GFR(CKD) >90 (>60 ml/min/1.73 sqM); Potassium 3.4 mmol/L (3.5-5.1); Sodium 128 mmol/L (137-145); Total Bilirubin 0.6 mg/dL (0.2-1.3)
[2021-10-25] MEDS ORDERED: ASPIRIN 81 MG PO STA (22:16)
[2021-10-25] MEDS ORDERED: NITROGLYCERIN SL TABS 0.4 MG TAB SUBLINGUAL PRN (23:06)
[2021-10-25] MEDS ORDERED: LORazepam 2 MG/ML INJ IV PRN ×3 (23:21)
[2021-10-26] MEDS ORDERED: POTASSIUM CHLORIDE ER 20 MEQ TAB.ER PO STA
[2021-10-26] MEDS: THIAMINE 100 MG TAB PO SCH ×2 (00:24→08:37)
[2021-10-26] MEDS: MORPHINE SULFATE 4 MG/ML SYRINGE IVP STA ×2 (02:30→03:07)
--- NOTE | 2021-10-26 02:47 | P.HPIM ---
History of Present Illness H&P Date: 10/26/21 Chief Complaint: chest pain 55 year old female with alcohol dependance, h/o CAD patient comes in with complaint of chest pain , left sided 8/10 in severity radiating to the left shoulder and back , worse with activity, intermittent for the past 2-3 days, associated with SOB, and profuse sweating, feeling nausea , and has vomited couple times today, she admits to smoking and daily alcohol consumption , and reports similar episode inthe past where she was told that she has "broken heart syndrome" denies any fever , chills, injury , fall, cough, or other URI symptoms , denies any GI bleeding bowel or urinary habit changes. initial workup inthe ED, trops negative , EKG NSR , no acute ST changes, CXR no acute pathology blood work showed hyponatremia Review of Systems Pertinent positives as noted in HPI. All other systems were reviewed and are negative Past Medical History Past Medical History: COPD, Liver Disease, [place]ocardial Infarction ([place]), Seizure Disorder Additional Past Medical History / Comment(s): LAST SEIZURE - JANUARY 2021, "broken heart syndrome"., elevated liver enzymes, "dislocated disks", hx cervical cancer, "eating disorder"-not sure what Last Myocardial Infarction Date:: 2019 History of Any Multi-Drug Resistant Organisms: None Reported Past Surgical History: Section, Heart Catheterization, Tubal Ligation Additional Past Surgical History / Comment(s): ORIF rt ankle/hardware later removed, exploratory lap, PAIN CLINIC PROCEDURE, BILAT CATARACTS REMOVED WITH LENS IMPLANTS, procedure to open a vein in left leg, partial amputation rt hand middle finger, "procedure to remove cervical cancer" Past Anesthesia/Blood Transfusion Reactions: No Reported Reaction Past Psychological History: Anxiety, Bipolar, Depression, PTSD Smoking Status: Current every day smoker Past Alcohol Use History: Abuse, Heavy Additional Past Alcohol Use History / Comment(s): SMOKES 1 1/2 PPD SINCE AGE 16. pt. states she drinks four beers daily Past Drug Use History: Marijuana Additional Drug Use History / Comment(s): pt reports marijuana use occasional; - Past Family History Mother Additional Family Medical History / Comment(s): Alcohol related Father Family Medical History: Cancer, Prostate Disorder, Pulmonary Embolus Additional Family Medical History / Comment(s): Lung cancer. Sister(s) Family Medical History: Cancer Brother(s) Family Medical History: Cancer Medications and Allergies Home Medications Medication Instructions Recorded Confirmed Type levETIRAcetam [Keppra] 500 mg PO BID 10/23/20 10/25/21 History Prazosin [Minipress] 1 mg PO HS 05/22/21 10/25/21 History cloNIDine HCL 0.1 mg PO BID 09/03/21 10/25/21 History Ergocalciferol [Vitamin D2 (1250 1,250 mcg PO TU 10/25/21 10/25/21 History Mcg = 59329 Iu)] Allergies Allergy/AdvReac Type Severity Reaction Status Date / Time Penicillins Allergy Rash/Hives/ Verified 10/25/21 22:10 Swelling NSAIDS (Non-Steroidal AdvReac Unknown upset Verified 10/25/21 22:10 Anti-Inflamma stomach sertraline HCl [From Zoloft] AdvReac Suicidal/Ag Verified 10/25/21 22:10 ression Physical Exam Vitals: Vital Signs Temp Pulse Pulse Resp BP BP Pulse Ox 10/26/21 00:54 97.6 F 55 L 16 114/71 97 10/25/21 23:53 97.8 F 61 16 111/68 97 10/25/21 22:53 65 16 110/74 96 10/25/21 21:10 98.2 F 79 16 112/78 94 L Intake and Output 10/25/21 10/25/21 10/26/21 14:59 22:59 06:59 Other: Weight 43.998 kg 43.998 kg Constitutional: No acute distress, conversant, pleasant Eyes: Anicteric sclerae, moist conjunctiva, Pupils equal round reactive to light ENMT: NC/AT Oropharynx clear, no erythema, or exudates Neck: Supple, FROM, no masses, or JVD No carotid bruits No thyromegaly Lungs: Clear to auscultation Clear to percussion Normal respiratory effort, no accessory muscle use Cardiovascular: Heart regular in rate and rhythm, No murmurs, gallops, or rubs No peripheral edema Abdominal: Soft Nontender, no guarding, rebound or rigidity Abdomen moving with respiration Normoactive bowel sounds No hepatomegaly, No splenomegaly No palpable mass No abdominal wall hernia noted Skin: Normal temperature, tone, texture, turgor No induration No subcutaneous nodules No rash, lesions No ulcers Extremities: No digital cyanosis No clubbing Pedal pulses intact and symmetrical Radial pulses intact and symmetrical No calf tenderness Psychiatric: Alert and oriented to person, place and time Appropriate affect fair judgement Neuro Muscles Strength 5/5 in all 4 extremities Sensation to light touch grossly present throughout Cranial nerves II-XII grossly intact No focal sensory deficits Lymphatics: no palpable cervical or supraclavicular , or inguinal lymph nodes Results CBC & Chem 7: 10/25/21 21:21 10/25/21 21:21 Labs: Abnormal Lab Results - Last 24 Hours (Table) 10/25/21 10/25/21 Range/Units 21:21 21:21 MCV 102.4 H (80.0-100.0) fL Plt Count 141 L (150-450) k/uL Sodium 128 L (137-145) mmol/L Potassium 3.4 L (3.5-5.1) mmol/L Chloride 94 L (98-107) mmol/L Carbon Dioxide 19 L (22-30) mmol/L BUN <2 L (7-17) mg/dL Creatinine 0.42 L (0.52-1.04) mg/dL AST 67 H (14-36) U/L Thrombosis Risk Factor Assmnt - Choose All That Apply Each Factor Represents 1 point: Abnormal pulmonary function (COPD), Age 41-60 years Thrombosis Risk Factor Assessment Total Risk Factor Score: 2 Thrombosis Risk Factor Assessment Level: Low Risk Assessment and Plan Assessment: chest pain , atypical rule out ACS ASA statin cardiology consult classroom monitor trend trops monitor vital signs pain control nitro, opiates alcohol dependence monitor for alcohol withdrawal benzo per CIWA thiamine daily hyponatremia gentle IVF hydration follow up Na level full code DVT PPX heparin sc tid anticipated length of stay < 2 midnights
[2021-10-26] MEDS ORDERED: SODIUM CHLORIDE 0.9% 1,000 ML IV SCH (03:00)
[2021-10-26] MEDS ORDERED: MORPHINE SULFATE 4 MG/ML SYRINGE IVP ONE (03:38)
[2021-10-26] MEDS ORDERED: HEPARIN SODIUM,PORCINE/PF 5,000 UNIT/0.5 ML SYRINGE SQ SCH (08:00)
[2021-10-26 08:50] VITALS: BP 126/76; PULSE 87; RESP 18; TEMP 97.7
[2021-10-26] MEDS ORDERED: cloNIDine HCL 0.1 MG TAB PO SCH (09:00)
[2021-10-26] MEDS ORDERED: levETIRAcetam 500 MG TAB PO SCH (09:00)
[2021-10-26] MEDS ORDERED: ATORVASTATIN 20 MG TAB PO SCH (09:00)
[2021-10-26] MEDS ORDERED: ASPIRIN 325 MG TAB PO SCH (09:00)
[2021-10-26 09:12] LABS: Chol/HDL Ratio 1.67 Ratio; LDL Cholesterol,Calculated 83.7 mg/dL (0.0-131.0)
[2021-10-26] MEDS ORDERED: ACETAMINOPHEN TAB 325 MG TAB PO PRN (10:14)
--- NOTE | 2021-10-26 11:20 | P.CRDCN ---
History of Present Illness History of present illness: HISTORY OF PRESENTING ILLNESS TThis pleasant 55-year-old female with history of "Broken heart syndrome" 2001, tobacco abuse, alcohol abuse with previous DT's, hypertension, anxiety who prese nts secondary episode of chest pain. She states she is not doing anything in particular and started feeling chest pain and associated shortness breath, nausea and mild diaphoresis. She believes it felt similar to her prior "broken heart syndrome" in 2001 and therefore came to the emergency department. She also felt like she was having palpitations like her heart was beating very fast and hard. She was noted to be normal sinus on EKG and was given Ativan with improvement in most of her symptoms. Troponins normal 3, EKG normal sinus without significant ST or T wave abnormalities. ProBNP noted to be normal. She smokes every day, drinks every day approximately 8 beers and smokes marijuana. She does undergo DTs. At this point she is not interested in stopping drinking. She was noted to be hyponatremic which appears to be related to beer photomania with poor appetite. REVIEW OF SYSTEMS At the time of my exam: CONSTITUTIONAL: Denies fever or chills. CARDIOVASCULAR: +chest pain, +shortness of breath, no orthopnea, PND or palpitations. RESPIRATORY: Denies cough. GASTROINTESTINAL: Denies abdominal pain, diarrhea, constipation, +nausea no vomiting. MUSCULOSKELETAL: Denies myalgias. NEUROLOGIC: Denies numbness, tingling or weakness. ENDOCRINE: Denies fatigue, weight change, polydipsia or polyurina. GENITOURINARY: Denies burning, hematuria or urgency with micturation. HEMATOLOGIC: Denies history of anemia or bleeding. PHYSICAL EXAMINATION Vital signs reviewed. CONSTITUTIONAL: No apparent distress, appears older than stated age HEENT: Head is normocephalic. Pupils are equal, round. Sclerae anicteric. Mucous membranes of the mouth are moist. No JVD. No carotid bruit. CHEST EXAMINATION: +mild wheeze HEART EXAMINATION: Regular rate and rhythm. S1, S2 heard. No murmurs, gallops or rub. ABDOMEN: Soft, nontender. Positive bowel sounds. EXTREMITIES: 2+ peripheral pulses, no lower extremity edema and no calf tenderness. NEUROLOGIC EXAMINATION: Patient is awake, alert and oriented x3. ASSESSMENT 1. Chest pain associated shortness breath, nausea, mild diaphoresis. Troponin 3 and acute coronary syndrome ruled out. May be related to anxiety. 2. Prior history of Takotsubo's cardiomyopathy 2001 with reportedly normal heart cath 3. Tobacco abuse 4. Heavy alcohol abuse with DTs 5. Hyponatremia related to beer pot remaining 6. Hypertension PLAN Patient's chest pain does have some typical features however workup unrevealing with normal EKG, no significant arrhythmias, normal troponins 3. We discussed given concern of patient undergoing DTs patient may have workup as an outpatient. Patient is not interested in stopping drinking. Some of symptoms may be related to anxiety. ProBNP normal and no heart failure symptoms, do not suspect Takotsubo's cardiomyopathy currently. She is stable for discharge home on baby aspirin with outpatient follow-up. May consider event monitor if has more palpitation episodes. Past Medical History Past Medical History: COPD, Liver Disease, [place]ction ([place]), Seizure Disorder Additional Past Medical History / Comment(s): LAST SEIZURE - JANUARY 2021, "broken heart syndrome"., elevated liver enzymes, "dislocated disks", hx cervical cancer, "eating disorder"-not sure what Last Myocardial Infarction Date:: 2019 History of Any Multi-Drug Resistant Organisms: None Reported Past Surgical History: Section, Heart Catheterization, Tubal Ligation Additional Past Surgical History / Comment(s): ORIF rt ankle/hardware later removed, exploratory lap, PAIN CLINIC PROCEDURE, BILAT CATARACTS REMOVED WITH LENS IMPLANTS, procedure to open a vein in left leg, partial amputation rt hand middle finger, "procedure to remove cervical cancer" Past Anesthesia/Blood Transfusion Reactions: No Reported Reaction Past Psychological History: Anxiety, Bipolar, Depression, PTSD Smoking Status: Current every day smoker Past Alcohol Use History: Abuse, Heavy Additional Past Alcohol Use History / Comment(s): SMOKES 1 1/2 PPD SINCE AGE 16. pt. states she drinks four beers daily Past Drug Use History: Marijuana Additional Drug Use History / Comment(s): pt reports marijuana use occasional; - Past Family History Mother Additional Family Medical History / Comment(s): Alcohol related Father Family Medical History: Cancer, Prostate Disorder, Pulmonary Embolus Additional Family Medical History / Comment(s): Lung cancer. Sister(s) Family Medical History: Cancer Brother(s) Family Medical History: Cancer Medications and Allergies Home Medications Medication Instructions Recorded Confirmed Type levETIRAcetam [Keppra] 500 mg PO BID 10/23/20 10/25/21 History Prazosin [Minipress] 1 mg PO HS 05/22/21 10/25/21 History cloNIDine HCL 0.1 mg PO BID 09/03/21 10/25/21 History Ergocalciferol [Vitamin D2 (1250 1,250 mcg PO TU 10/25/21 10/25/21 History Mcg = 06784 Iu)] Allergies Allergy/AdvReac Type Severity Reaction Status Date / Time Penicillins Allergy Rash/Hives/ Verified 10/25/21 22:10 Swelling NSAIDS (Non-Steroidal AdvReac Unknown upset Verified 10/25/21 22:10 Anti-Inflamma stomach sertraline HCl [From Zoloft] AdvReac Suicidal/Ag Verified 10/25/21 22:10 ression Physical Exam Vitals: Vital Signs Temp Pulse Pulse Resp BP BP Pulse Ox 10/26/21 07:00 97.7 F 87 18 126/76 98 10/26/21 00:54 97.6 F 55 L 16 114/71 97 10/25/21 23:53 97.8 F 61 16 111/68 97 10/25/21 22:53 65 16 110/74 96 10/25/21 21:10 98.2 F 79 16 112/78 94 L Intake and Output 10/25/21 10/26/21 10/26/21 22:59 06:59 14:59 Other: # Voids 2 Weight 43.998 kg 43.998 kg Results 10/25/21 21:21 10/25/21 21:21 Cardiac Enzymes 10/25/21 10/25/21 10/25/21 Range/Units 21:21 21:21 23:31 AST 67 H (14-36) U/L Troponin I <0.012 <0.012 (0.000-0.034) ng/mL 10/26/21 Range/Units 02:54 AST (14-36) U/L Troponin I <0.012 (0.000-0.034) ng/mL Coagulation 10/25/21 Range/Units 21:21 PT 10.5 (9.0-12.0) sec APTT 27.4 (22.0-30.0) sec Lipids 10/26/21 Range/Units 02:54 Triglycerides 66.50 (0.00-149.00) mg/dL Cholesterol 241.00 H (0.00-200.00) mg/dL HDL Cholesterol 144.00 H (40.00-60.00) mg/dL Cholesterol/HDL Ratio 1.67 Ratio CBC 10/25/21 Range/Units 21:21 WBC 6.3 (3.8-10.6) k/uL RBC 4.12 (3.80-5.40) m/uL Hgb 14.3 (11.4-16.0) gm/dL Hct 42.2 (34.0-46.0) % Plt Count 141 L (150-450) k/uL Comprehensive Metabolic Panel 10/25/21 Range/Units 21:21 Sodium 128 L (137-145) mmol/L Potassium 3.4 L (3.5-5.1) mmol/L Chloride 94 L (98-107) mmol/L Carbon Dioxide 19 L (22-30) mmol/L BUN <2 L (7-17) mg/dL Creatinine 0.42 L (0.52-1.04) mg/dL Glucose 95 (74-99) mg/dL Calcium 8.7 (8.4-10.2) mg/dL AST 67 H (14-36) U/L ALT 25 (4-34) U/L Alkaline Phosphatase 78 (38-126) U/L Total Protein 7.0 (6.3-8.2) g/dL Albumin 4.6 (3.5-5.0) g/dL Current Medications Generic Name Dose Route Start Last Admin Trade Name Freq PRN Reason Stop Dose Admin Acetaminophen 650 mg 10/26/21 10:14 10/26/21 11:05 Acetaminophen Tab 325 Mg Tab PO 650 mg Q4HR PRN Administration Fever and/ or Pain Aspirin 325 mg 10/26/21 09:00 10/26/21 08:37 Aspirin 325 Mg Tab PO 325 mg DAILY EDGARDO Administration Atorvastatin Calcium 20 mg 10/26/21 09:00 10/26/21 08:37 Atorvastatin 20 Mg Tab PO 20 mg DAILY EDGARDO Administration Clonidine 0.1 mg 10/26/21 09:00 10/26/21 08:37 Clonidine Hcl 0.1 Mg Tab PO 0.1 mg BID EDGARDO Administration Heparin Sodium (Porcine) 5,000 unit 10/26/21 08:00 10/26/21 08:37 Heparin Sodium,Porcine/Pf 5,000 Unit/0.5 Ml Syringe SQ 5,000 unit Q8HR EDGARDO Administration Sodium Chloride 1,000 mls @ 75 mls/hr 10/26/21 03:00 10/26/21 06:25 Saline 0.9% IV 75 mls/hr .[id number] EDGARDO Administration Levetiracetam 500 mg 10/26/21 09:00 10/26/21 08:37 Levetiracetam 500 Mg Tab PO 500 mg BID EDGARDO Administration Lorazepam 1 mg 10/25/21 23:21 Lorazepam 2 Mg/Ml Inj IV Q2HR PRN CIWA 8 or 9 Lorazepam 1 mg 10/25/21 23:21 Lorazepam 2 Mg/Ml Inj IV Q1HR PRN CIWA 10 to 15 Lorazepam 2 mg 10/25/21 23:21 Lorazepam 2 Mg/Ml Inj IV 10/27/21 23:21 Q10M PRN CIWA 16 or higher Nitroglycerin 0.4 mg 10/25/21 23:06 Nitroglycerin Sl Tabs 0.4 Mg Tab SUBLINGUAL Q5M PRN Chest Pain Prazosin HCl 1 mg 10/26/21 21:00 Prazosin 1 Mg Cap PO HS EDGARDO Thiamine HCl 100 mg 10/26/21 00:00 10/26/21 08:37 Thiamine 100 Mg Tab PO 100 mg BID-W/MEALS EDGARDO Administration Intake and Output 10/25/21 10/26/21 10/26/21 22:59 06:59 14:59 Other: # Voids 2 Weight 43.998 kg 43.998 kg 10/25/21 21:21 10/25/21 21:21
--- NOTE | 2021-10-26 14:10 | P.DS ---
Providers Date of admission: 10/25/21 23:06 Expected date of discharge: 10/26/21 Attending physician: Kelsey Segura MD Consults: 10/25/21 23:06 Consult Physician Routine Consulting Provider: Yandel Falk Consult Reason/Comments: chest pain Do you want consulting provider notified?: Yes Primary care physician: [facility] Course: Chest Pain, atypical ETOH dependence Hyponatremia 55 year old female with alcohol dependance, h/o CAD presented with complaint of chest pain , left sided 8/10 in severity radiating to the left shoulder and back , worse with activity, intermittent for the past 2-3 days, associated with SOB, and profuse sweating, feeling nausea. Initial workup inthe ED, trops negative , EKG NSR , no acute ST changes, CXR no acute pathology. Blood work showed hyponatremia. Pt seen and evaluated by cardiology who cleared the patient for discharge with routine f/u. Gen: awake, alert HEENT: normocephalic, atraumatic, good hearing acuity, moist mucous membranes Resp: good air exchange, breathing comfortably with no accessory muscle use CVS: good distal perfusion x 4, GI: soft, NTTP, ND : no SPT, no CVAT, orellana catheter not present MSK: no pitting edema, no clubbing Neuro: non-focal, moving all extremities Psych: cooperative, euthymic mood Patient Condition at Discharge: Good Plan - Discharge Summary New Discharge Prescriptions: New Aspirin 81 mg PO DAILY #30 tab Atorvastatin [Lipitor] 20 mg PO HS #30 tab Continue levETIRAcetam [Keppra] 500 mg PO BID Prazosin [Minipress] 1 mg PO HS cloNIDine HCL 0.1 mg PO BID Ergocalciferol [Vitamin D2 (1250 Mcg = 21480 Iu)] 1,250 mcg PO TU Discharge Medication List levETIRAcetam [Keppra] 500 mg PO BID 10/23/20 [History] Prazosin [Minipress] 1 mg PO HS 05/22/21 [History] cloNIDine HCL 0.1 mg PO BID 09/03/21 [History] Ergocalciferol [Vitamin D2 (1250 Mcg = 97761 Iu)] 1,250 mcg PO TU 10/25/21 [History] Aspirin 81 mg PO DAILY #30 tab 10/26/21 [Rx] Atorvastatin [Lipitor] 20 mg PO HS #30 tab 10/26/21 [Rx] Follow up Appointment(s)/Referral(s): Henny Angel MD [Primary Care Provider] - 1-2 days Discharge Disposition: HOME SELF-CARE
[2021-10-26] MEDS ORDERED: PRAZOSIN 1 MG CAP PO SCH (21:00)
== END 2021-10-26 14:32 | disposition home or self-care (01) ==
LOC: EC 21:01 → 6NMEDSUR 23:06
PROVIDERS: ADMIT Internal Medicine; ATTEND Internal Medicine
DX: R07.2 Precordial pain (principal); F17.210 Nicotine dependence, cigarettes, uncomplicated; E87.1 Hypo-osmolality and hyponatremia; F10.20 Alcohol dependence, uncomplicated; Z71.41 Alcohol abuse counseling and surveillance of alcoholic; F12.90 Cannabis use, unspecified, uncomplicated; I10 Essential (primary) hypertension; I25.10 Atherosclerotic heart disease of native coronary artery without angina pectoris; I25.2 Old myocardial infarction; J44.9 Chronic obstructive pulmonary disease, unspecified; K76.9 Liver disease, unspecified; R11.2 Nausea with vomiting, unspecified; R61 Generalized hyperhidrosis; G40.909 Epilepsy, unspecified, not intractable, without status epilepticus; F31.9 Bipolar disorder, unspecified; F43.10 Post-traumatic stress disorder, unspecified; Z79.82 Long term (current) use of aspirin; Z88.6 Allergy status to analgesic agent; Z88.0 Allergy status to penicillin; Z88.8 Allergy status to other drugs, medicaments and biological substances; Z98.41 Cataract extraction status, right eye; Z79.899 Other long term (current) drug therapy; Z98.42 Cataract extraction status, left eye; Z85.41 Personal history of malignant neoplasm of cervix uteri; Z98.891 History of uterine scar from previous surgery; Z86.59 Personal history of other mental and behavioral disorders; Z96.1 Presence of intraocular lens; Z80.1 Family history of malignant neoplasm of trachea, bronchus and lung; Z82.49 Family history of ischemic heart disease and other diseases of the circulatory system; Z80.9 Family history of malignant neoplasm, unspecified
CPT/HCPCS: 99285; 96372; 96374; 36415; 93005; 85379; 83880; 80061; 80053; 83735; 84484 ×2; 85025; 85610; 85730; 71046; G0378 ×2; J2270; J1644

== ENCOUNTER → 2022-01-19 | Outpatient (CLI) | payer OTHER ==
[2022-01-19 14:39] VITALS: BP 126/69; PULSE 95; RESP 16; TEMP 98
--- NOTE | 2022-01-19 15:07 | P.PAINPG ---
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 Pt states she experienced 30% pain relief x 2 weeks s/p procedure. Pain level is currently at 9/10 in intensity, constant, localized in the lower aspect of the lumbar spine w radiation of sharp pain & spasms towards the BLEs and feet. Pain is provoked by weight bearing activity. Pain is alleviated with home stretching regimen, pillow between the knees at bedtime, walker for ambulation, repositioning and rest. Pt admitted to daily ETOH consumption. Interventional pain procedures completed include BL MBB L4-L5, L5-S1 x 1 Patient denies any side effects of the medication(s), denies excessive drowsiness or sleepiness, denies suicidal ideation and reports that the current pain medication is helping to control the pain and improve activities of daily living. Patient denies any motor or sensory deficits. Patient denies any fever or night sweats, denies any change in the bowel movements or urination. Physical Examination: -Constitutional: Cooperative. Not in acute distress . - Neurologic: Cranial nerve II to XII intact. No focal neurological deficits. - Psychatric: Alert & oriented x 3. Matching mood & appropriate affect. Judgment and insight intact. - Musculoskeletal: Cervical spine: Muscle bulk/ tone/ strength in the bilateral upper extremities normal Vertebral body tenderness to palpation over Spurling test positive Distraction test positive Facet loading test positive Thoracic spine Muscle bulk / tone/ strength in the bilateral paraspinal muscles normal Vertebral body tender to palpation over Facet loading test positive Lumbar spine: Motor bulk/ tone/ strength lower extremities , thigh and legs : 5/5 Deep tendon reflexes : Normal Knee Jerk. Normal Ankle Jerk . Vertebral body tenderness to palpation over L4 Lumbar Facet Loading Test positive Straight Leg Raise: positive at 30 degrees right side/ left side Gaenslen's Test positive Sacral spine : Severe tenderness over the Sacroiliac joint: right side / left side Range of motion: Flexion of the lumbar spine <60 degrees Range of motion: Extension of the lumbar spine <20 degrees Gaenslen's Test positive Burt's Test positive Shanell test: positive right side / left side Thigh Thrust Test Sacral Thrust Test Assessment and plan: Chronic low back pain secondary to lumbar degenerative disc disease , lumbar spondylosis with facet arthropathy without myelopathy All patient questions answered MAPS reviewed and it was appropriate. Prescription for Zanaflex 4mg #90 w 1 refill. Use, side effects and adverse reaction discussed add pt verbalized understanding. I have spent less than 30 minutes on patient care today. Dr Choi was available by phone for the evaluation of this patient. The time was used to review the medical records including relevant urine studies and Prescription history (MAPs), review of the available imaging, evaluation and examination of the patient, coordination of care with the medical staff and if applicable referring physicians, as well as creation of the medical record PQRS Narrative: Smoking Status Current every day smoker Hx Alcohol Use (MH) Yes Home Medications: Ambulatory Orders levETIRAcetam [Keppra] 500 mg PO BID 10/23/20 Prazosin [Minipress] 1 mg PO HS 05/22/21 cloNIDine HCL 0.1 mg PO BID 09/03/21 Ergocalciferol [Vitamin D2 (1250 Mcg = 49975 Iu)] 1,250 mcg PO TU 10/25/21 Aspirin 81 mg PO DAILY #30 tab 10/26/21 Atorvastatin [Lipitor] 20 mg PO HS #30 tab 10/26/21 tiZANidine HCL [Zanaflex] 4 mg PO Q8H PRN 30 Days #90 capsule 01/19/22 Controlled Substance Measures - Controlled Substance Measures Is patient prescribed a controlled substance at discharge?: No
== END ==
LOC: PNWHC3 14:11
PROVIDERS: ATTEND Specialist
DX: M51.36 Other intervertebral disc degeneration, lumbar region (principal); M47.816 Spondylosis without myelopathy or radiculopathy, lumbar region; G89.29 Other chronic pain; F17.200 Nicotine dependence, unspecified, uncomplicated; Z88.0 Allergy status to penicillin; Z88.6 Allergy status to analgesic agent
CPT/HCPCS: 99211

== ENCOUNTER 2022-03-28 15:29 | Observation (INO) | payer OTHER ==
[2022-03-28] MEDS ORDERED: ONDANSETRON 4 MG/2 ML VIAL IVP STA (16:20)
[2022-03-28] MEDS ORDERED: SODIUM CHLORIDE 0.9% 1,000 ML IV STA (16:20)
[2022-03-28] MEDS ORDERED: BUTALB/APAP/CAFF 50-325-40MG TAB PO STA (16:21)
[2022-03-28 16:51] LABS: INR 0.9 (<1.2); Partial Thromboplastin Time 22.7 sec (22.0-30.0); Prothrombin Time 9.9 sec (9.0-12.0)
[2022-03-28 16:54] LABS: ALT 30 U/L (4-34); AST 93 U/L (14-36); African American GFR (CKD) >90 (>60 ml/min/1.73 sqM); Albumin 4.6 g/dL (3.5-5.0); Alkaline Phosphatase 82 U/L (38-126); Anion Gap 15 mmol/L; Blood Urea Nitrogen <2 mg/dL (7-17); Calcium 8.8 mg/dL (8.4-10.2); Carbon Dioxide 22 mmol/L (22-30); Chloride 99 mmol/L (98-107); Glucose 62 mg/dL (74-99); Magnesium 1.6 mg/dL (1.6-2.3); Non-African American GFR(CKD) >90 (>60 ml/min/1.73 sqM); Potassium 3.8 mmol/L (3.5-5.1); Sodium 136 mmol/L (137-145); Total Bilirubin 0.8 mg/dL (0.2-1.3); Total Protein 6.9 g/dL (6.3-8.2)
[2022-03-28 16:57] LABS: Appearance,Urine Clear (Clear); Bilirubin,Urine Negative (Negative); Blood,Urine Negative (Negative); Color,Urine Colorless; Glucose,Urine (UA) Negative (Negative); Ketones,Urine Negative (Negative); Leukocyte Esterase,Urine Negative (Negative); Nitrite,Urine Negative (Negative); Protein,Urine Negative (Negative); Specific Gravity,Urine 1.002 (1.001-1.035); Urobilinogen,Urine <2.0 mg/dL (<2.0)
--- NOTE | 2022-03-28 17:06 | CT ---
EXAMINATION TYPE: CT brain wo con CT DLP: 1092.4 mGycm, Automated exposure control for dose reduction was used. DATE OF EXAM: 03/28/2022 4:38 PM COMPARISON: CT brain 08/02/2019. CLINICAL INDICATION:Female, 56 years old with history of weakness, Pt had a fall TECHNIQUE: Brain: Axial CT images of the brain were obtained with coronal and sagittal reformats created and rev iewed. Contrast used: None. Oral contrast used: None. FINDINGS: Due to patient positioning axial portions of the skull base and vertex were not visualized. Brain: Extra-axial spaces: No abnormal extra-axial fluid collections. Ventricular system: Within normal limits Cerebral parenchyma: No acute intraparenchymal hemorrhage or mass effect. The ladd-white junction is well differentiated. Cerebellum: Unremarkable. Mass effect: No evidence of midline shift. Intracranial vasculature: unremarkable Soft tissues: Normal. Calvarium/osseous structures: No depressed skull fracture. Paranasal sinuses and mastoid air cells: Suboptimally assessed due to patient angulation. Visualized orbits: Orbital contents are intact. IMPRESSION: No acute intracranial process as visualized.
[2022-03-28 17:24] LABS: Basophils # (A) 0.1 k/uL (0-0.2); Basophils % (A) 1 %; Eosinophils # (A) 0.1 k/uL (0-0.7); Eosinophils % (A) 1 %; HCT 46.4 % (34.0-46.0); HGB 16.4 gm/dL (11.4-16.0); Lymphocytes # (A) 3.4 k/uL (1.0-4.8); Lymphocytes % (A) 55 %; MCH 36.3 pg (25.0-35.0); MCHC 35.4 g/dL (31.0-37.0); MCV 102.7 fL (80.0-100.0); Macrocytosis Slight; Monocytes # (A) 0.6 k/uL (0-1.0); Monocytes % (A) 10 %; Neutrophils # (A) 1.8 k/uL (1.3-7.7); Neutrophils % (A) 30 %; Platelet Count 206 k/uL (150-450); RBC 4.51 m/uL (3.80-5.40); RDW 13.7 % (11.5-15.5); WBC 6.1 k/uL (3.8-10.6)
--- NOTE | 2022-03-28 17:53 | XR ---
EXAMINATION TYPE: XR chest 2V DATE OF EXAM: 03/28/2022 5:20 PM COMPARISON: Chest x-ray 10/25/2021 TECHNIQUE: XR chest 2V . CLINICAL INDICATION:Female, 56 years old with history of Weakness; FINDINGS: Lungs/Pleura: There is no evidence of pleural effusion, focal consolidation, or pneumothorax. Pulmonary vascularity: Unremarkable. Heart/mediastinum: Cardiomediastinal silhouette is unremarkable. Musculoskeletal: No acute osseous pathology. IMPRESSION: No acute cardiopulmonary disease/process.
[2022-03-28] MEDS ORDERED: DEXTROSE 50% SYRINGE 50 ML IVP STA (18:25)
[2022-03-28] MEDS ORDERED: ALBUTEROL NEBULIZED 2.5 MG/3 ML INHALATION STA (18:26)
[2022-03-28] MEDS ORDERED: methylPREDNISolone SOD SUCCI 125 MG/2 ML VIAL IV STA (18:26)
--- NOTE | 2022-03-28 19:59 | ED ---
General Adult HPI - General Chief complaint: Dizziness Stated complaint: dizziness Time Seen by Provider: 03/28/22 15:50 Source: patient, EMS Mode of arrival: EMS Limitations: no limitations - History of Present Illness Initial comments: 56-year-old female with past history of seizure disorder, COPD, alcohol abuse presents to the emergency department with several complaints. Patient reports to feeling lightheadedness as if she is going to pass out. States that she has been sleeping more over the past 2 days. Got up from a nap today and ambulated t o go speak with her . She felt like she was going to pass out. She has had a decreased appetite with vomiting. Significant weight loss. Patient also reporting to substernal chest pain without radiation. Has associated shortness of breath especially with exertion. Admits to history of "broken heart syndrome". States she had a cardiac cath with normal coronaries. She has not been following with a physician as of recently. Patient admits to daily alcohol use. Smokes a pack a day. Patient also reporting to a headache that has been constant. Denies any head trauma. No fevers. Admits to chronic neck pain which is not worse than what it normally is. No sick contacts. No other alleviating, precipitating or modifying factors - Related Data Home Medications Medication Instructions Recorded Confirmed levETIRAcetam [Keppra] 500 mg PO BID 10/23/20 03/28/22 Prazosin [Minipress] 1 mg PO HS 05/22/21 03/28/22 cloNIDine HCL 0.1 mg PO BID 09/03/21 03/28/22 Ergocalciferol [Vitamin D2 (1250 1,250 mcg PO WE 10/25/21 03/28/22 Mcg = 17257 Iu)] Albuterol Sulfate [Proair Hfa] 2 puff INHALATION RT-Q6H PRN 03/28/22 03/28/22 Lidocaine 5% Oint [Xylocaine 5% 1 applic TOPICAL TID PRN 03/28/22 03/28/22 Oint] Previous Rx's Medication Instructions Recorded Aspirin 81 mg PO DAILY #30 tab 10/26/21 Atorvastatin [Lipitor] 20 mg PO HS #30 tab 10/26/21 tiZANidine HCL [Zanaflex] 4 mg PO Q8H PRN 30 Days #90 capsule 01/19/22 Thiamine [Vitamin B-1] 100 mg PO DAILY #30 tab 03/29/22 Allergies Allergy/AdvReac Type Severity Reaction Status Date / Time Penicillins Allergy Rash/Hives/ Verified 03/28/22 19:46 Swelling NSAIDS (Non-Steroidal AdvReac Unknown upset Verified 03/28/22 19:46 Anti-Inflamma stomach sertraline HCl [From Zoloft] AdvReac Suicidal/Ag Verified 03/28/22 19:46 ression Review of Systems ROS Statement: Those systems with pertinent positive or pertinent negative responses have been documented in the HPI. ROS Other: All systems not noted in ROS Statement are negative. Past Medical History Past Medical History: COPD, Liver Disease, Myocardial Infarction ([place]), Seizure Disorder Additional Past Medical History / Comment(s): LAST SEIZURE - JANUARY 2021, "broken heart syndrome"., elevated liver enzymes, "dislocated disks", hx cervical cancer, "eating disorder"-not sure what, Last Myocardial Infarction Date:: 2019 History of Any Multi-Drug Resistant Organisms: None Reported Past Surgical History: Section, Heart Catheterization, Tubal Ligation Additional Past Surgical History / Comment(s): ORIF rt ankle/hardware later removed, exploratory lap, PAIN CLINIC PROCEDURE, BILAT CATARACTS REMOVED WITH LENS IMPLANTS, procedure to open a vein in left leg, partial amputation rt hand middle finger, "procedure to remove cervical cancer" Past Anesthesia/Blood Transfusion Reactions: No Reported Reaction Past Psychological History: Anxiety, Bipolar, Depression, PTSD Smoking Status: Current every day smoker Past Alcohol Use History: Abuse, Heavy Past Drug Use History: None Reported - Past Family History Father Family Medical History: Cancer, Prostate Disorder, Pulmonary Embolus Additional Family Medical History / Comment(s): Lung cancer. Sister(s) Family Medical History: Cancer Brother(s) Family Medical History: Cancer General Exam Limitations: no limitations General appearance: alert, in no apparent distress, cachectic Head exam: Present: atraumatic, normocephalic, normal inspection Eye exam: Present: normal appearance, PERRL, EOMI. Absent: scleral icterus, conjunctival injection, periorbital swelling ENT exam: Present: normal exam, mucous membranes moist Neck exam: Present: normal inspection. Absent: tenderness, meningismus, lymphadenopathy Respiratory exam: Present: normal lung sounds bilaterally. Absent: respiratory distress, wheezes, rales, rhonchi, stridor Cardiovascular Exam: Present: normal rhythm, tachycardia, normal heart sounds. Absent: systolic murmur, diastolic murmur, rubs, gallop, clicks GI/Abdominal exam: Present: soft, tenderness (Generalized), normal bowel sounds. Absent: distended, guarding, rebound, rigid Extremities exam: Present: normal inspection, full ROM, normal capillary refill. Absent: tenderness, pedal edema, joint swelling, calf tenderness Back exam: Present: normal inspection Neurological exam: Present: alert, oriented X3, CN II-XII intact Psychiatric exam: Present: normal affect, normal mood Skin exam: Present: warm, dry, intact, normal color. Absent: rash Course Vital Signs 03/28/22 03/28/22 03/28/22 15:33 16:45 18:56 Temperature 98.2 F Pulse Rate 105 H 111 H 88 Pulse Rate [ Pulse Oximetery ] Respiratory 18 18 18 Rate Blood Pressure 141/102 150/95 136/88 Blood Pressure [Left Arm] O2 Sat by Pulse 98 92 L 95 Oximetry 03/28/22 03/28/22 03/29/22 19:10 19:20 00:51 Temperature 98.4 F Pulse Rate 80 82 Pulse Rate [ 84 Pulse Oximetery ] Respiratory 16 Rate Blood Pressure Blood Pressure 145/73 [Left Arm] O2 Sat by Pulse 93 L Oximetry 03/29/22 03/29/22 03/29/22 03:34 04:59 07:47 Temperature 97.7 F Pulse Rate 98 Pulse Rate [ 81 75 Pulse Oximetery ] Respiratory 16 16 16 Rate Blood Pressure 167/105 Blood Pressure 146/83 146/83 [Left Arm] O2 Sat by Pulse 98 96 98 Oximetry 03/29/22 12:33 Temperature Pulse Rate 72 Pulse Rate [ Pulse Oximetery ] Respiratory 16 Rate Blood Pressure 146/92 Blood Pressure [Left Arm] O2 Sat by Pulse 100 Oximetry EKG Findings - EKG Comments: EKG Findings:: EKG demonstrates sinus rhythm with a rate of 74. OH interval 161. QRS 100. QTC of 441. No acute ST segment elevations or depressions. Some baseline artifact in leads 1 and 2 Medical Decision Making - Medical Decision Making Upon arrival patient was placed into room 22. A thorough history and physical exam was performed. IV access is established. Fioricet is ordered. Laboratory studies are conducted and reviewed. Patient does have a glucose of 62. She was given an amp of dextrose as she does not eat much by mouth. Laboratory studies are reviewed and demonstrates a lactic of 2.7. Troponin 0.014. Chest x-ray demonstrates no acute process. CT of the brain is performed which demonstrates no evidence for acute ischemia or abnormal postcontrast enhancement. Mild increase in ventricular dilation compared to exam from July 2019. CT the abdomen and pelvis is performed due to the hypoglycemia with weight loss. This demonstrates no evidence for acute intra-abdominal or intrapelvic process. I did recommend admission for the hypoglycemia in chest pain. Spoke with Dr. Segura who agreed to admit the patient. - Lab Data Result diagrams: 03/29/22 04:15 03/29/22 04:15 Lab Results 03/28/22 03/28/22 03/28/22 Range/Units 16:23 16:23 16:23 WBC 6.1 (3.8-10.6) k/uL RBC 4.51 (3.80-5.40) m/uL Hgb 16.4 H (11.4-16.0) gm/dL Hct 46.4 H (34.0-46.0) % MCV 102.7 H (80.0-100.0) fL MCH 36.3 H (25.0-35.0) pg MCHC 35.4 (31.0-37.0) g/dL RDW 13.7 (11.5-15.5) % Plt Count 206 (150-450) k/uL MPV 9.0 Neutrophils % 30 % Lymphocytes % 55 % Monocytes % 10 % Eosinophils % 1 % Basophils % 1 % Neutrophils # 1.8 (1.3-7.7) k/uL Lymphocytes # 3.4 (1.0-4.8) k/uL Monocytes # 0.6 (0-1.0) k/uL Eosinophils # 0.1 (0-0.7) k/uL Basophils # 0.1 (0-0.2) k/uL Macrocytosis Slight PT 9.9 (9.0-12.0) sec INR 0.9 (<1.2) APTT 22.7 (22.0-30.0) sec Sodium 136 L (137-145) mmol/L Potassium 3.8 (3.5-5.1) mmol/L Chloride 99 (98-107) mmol/L Carbon Dioxide 22 (22-30) mmol/L Anion Gap 15 mmol/L BUN <2 L (7-17) mg/dL Creatinine 0.34 L (0.52-1.04) mg/dL Est GFR (CKD-EPI)AfAm >90 (>60 ml/min/1.73 sqM) Est GFR (CKD-EPI)NonAf >90 (>60 ml/min/1.73 sqM) Glucose 62 L (74-99) mg/dL Lactic Ac Sepsis Rflx Plasma Lactic Acid Anthony (0.7-2.0) mmol/L Calcium 8.8 (8.4-10.2) mg/dL Magnesium 1.6 (1.6-2.3) mg/dL Total Bilirubin 0.8 (0.2-1.3) mg/dL AST 93 H (14-36) U/L ALT 30 (4-34) U/L Alkaline Phosphatase 82 (38-126) U/L Troponin I (0.000-0.034) ng/mL Total Protein 6.9 (6.3-8.2) g/dL Albumin 4.6 (3.5-5.0) g/dL Urine Color Urine Appearance (Clear) Urine pH (5.0-8.0) Ur Specific [place] (1.001-1.035) Urine Protein (Negative) Urine Glucose (UA) (Negative) Urine Ketones (Negative) Urine Blood (Negative) Urine Nitrite (Negative) Urine Bilirubin (Negative) Urine Urobilinogen (<2.0) mg/dL Ur Leukocyte Esterase (Negative) Coronavirus (PCR) (Not Detectd) Influenza Type A RNA (Not Detectd) Influenza Type B (PCR) (Not Detectd) 03/28/22 03/28/22 03/28/22 Range/Units 16:23 16:34 16:34 WBC (3.8-10.6) k/uL RBC (3.80-5.40) m/uL Hgb (11.4-16.0) gm/dL Hct (34.0-46.0) % MCV (80.0-100.0) fL MCH (25.0-35.0) pg MCHC (31.0-37.0) g/dL RDW (11.5-15.5) % Plt Count (150-450) k/uL MPV Neutrophils % % Lymphocytes % % Monocytes % % Eosinophils % % Basophils % % Neutrophils # (1.3-7.7) k/uL Lymphocytes # (1.0-4.8) k/uL Monocytes # (0-1.0) k/uL Eosinophils # (0-0.7) k/uL Basophils # (0-0.2) k/uL Macrocytosis PT (9.0-12.0) sec INR (<1.2) APTT (22.0-30.0) sec Sodium (137-145) mmol/L Potassium (3.5-5.1) mmol/L Chloride (98-107) mmol/L Carbon Dioxide (22-30) mmol/L Anion Gap mmol/L BUN (7-17) mg/dL Creatinine (0.52-1.04) mg/dL Est GFR (CKD-EPI)AfAm (>60 ml/min/1.73 sqM) Est GFR (CKD-EPI)NonAf (>60 ml/min/1.73 sqM) Glucose (74-99) mg/dL Lactic Ac Sepsis Rflx Plasma Lactic Acid Anthony 2.7 H* (0.7-2.0) mmol/L Calcium (8.4-10.2) mg/dL Magnesium (1.6-2.3) mg/dL Total Bilirubin (0.2-1.3) mg/dL AST (14-36) U/L ALT (4-34) U/L Alkaline Phosphatase (38-126) U/L Troponin I 0.014 (0.000-0.034) ng/mL Total Protein (6.3-8.2) g/dL Albumin (3.5-5.0) g/dL Urine Color Urine Appearance (Clear) Urine pH (5.0-8.0) Ur Specific [place] (1.001-1.035) Urine Protein (Negative) Urine Glucose (UA) (Negative) Urine Ketones (Negative) Urine Blood (Negative) Urine Nitrite (Negative) Urine Bilirubin (Negative) Urine Urobilinogen (<2.0) mg/dL Ur Leukocyte Esterase (Negative) Coronavirus (PCR) Not Detected (Not Detectd) Influenza Type A RNA (Not Detectd) Influenza Type B (PCR) (Not Detectd) 10/15/22 10/15/22 10/15/22 Range/Units 16:34 16:43 17:02 WBC (3.8-10.6) k/uL RBC (3.80-5.40) m/uL Hgb (11.4-16.0) gm/dL Hct (34.0-46.0) % MCV (80.0-100.0) fL MCH (25.0-35.0) pg MCHC (31.0-37.0) g/dL RDW (11.5-15.5) % Plt Count (150-450) k/uL MPV Neutrophils % % Lymphocytes % % Monocytes % % Eosinophils % % Basophils % % Neutrophils # (1.3-7.7) k/uL Lymphocytes # (1.0-4.8) k/uL Monocytes # (0-1.0) k/uL Eosinophils # (0-0.7) k/uL Basophils # (0-0.2) k/uL Macrocytosis PT (9.0-12.0) sec INR (<1.2) APTT (22.0-30.0) sec Sodium (137-145) mmol/L Potassium (3.5-5.1) mmol/L Chloride (98-107) mmol/L Carbon Dioxide (22-30) mmol/L Anion Gap mmol/L BUN (7-17) mg/dL Creatinine (0.52-1.04) mg/dL Est GFR (CKD-EPI)AfAm (>60 ml/min/1.73 sqM) Est GFR (CKD-EPI)NonAf (>60 ml/min/1.73 sqM) Glucose (74-99) mg/dL Lactic Ac Sepsis Rflx Y Plasma Lactic Acid Anthony (0.7-2.0) mmol/L Calcium (8.4-10.2) mg/dL Magnesium (1.6-2.3) mg/dL Total Bilirubin (0.2-1.3) mg/dL AST (14-36) U/L ALT (4-34) U/L Alkaline Phosphatase (38-126) U/L Troponin I (0.000-0.034) ng/mL Total Protein (6.3-8.2) g/dL Albumin (3.5-5.0) g/dL Urine Color Colorless Urine Appearance Clear (Clear) Urine pH 6.0 (5.0-8.0) Ur Specific [place] 1.002 (1.001-1.035) Urine Protein Negative (Negative) Urine Glucose (UA) Negative (Negative) Urine Ketones Negative (Negative) Urine Blood Negative (Negative) Urine Nitrite Negative (Negative) Urine Bilirubin Negative (Negative) Urine Urobilinogen <2.0 (<2.0) mg/dL Ur Leukocyte Esterase Negative (Negative) Coronavirus (PCR) (Not Detectd) Influenza Type A RNA Not Detected (Not Detectd) Influenza Type B (PCR) Not Detected (Not Detectd) Disposition Clinical Impression: Chest pain, Hypoglycemia Disposition: ADMITTED IP TO THIS HOSP Condition: Stable Is patient prescribed a controlled substance at d/c from ED?: No Time of Disposition: 20:18 Decision to Admit Reason: Admit from EC Decision Date: 03/28/22 Decision Time: 20:18
[2022-03-28] MEDS ORDERED: METOCLOPRAMIDE 5 MG/ML 2 ML VIAL IVP STA (20:14)
[2022-03-28] MEDS ORDERED: diphenhydrAMINE 50 MG/ML 1 ML VIAL IVP STA (20:14)
[2022-03-28] MEDS ORDERED: MAGNESIUM SULFATE-D5W PMX 1 GM in DEXTROSE/WATER 1 100ML.BAG IVPB ONE (20:14)
[2022-03-28] MEDS ORDERED: NALOXONE 0.4 MG/ML 1 ML VIAL IV PRN (20:18)
--- NOTE | 2022-03-28 20:59 | CT ---
EXAMINATION TYPE: CT brain w con CT DLP: 1142.4 mGycm, Automated exposure control for dose reduction was used. DATE OF EXAM: 03/28/2022 8:41 PM COMPARISON: CT brain 08/02/20192019. CLINICAL INDICATION:Female, 56 years old with history of Headache; PHH, headache TECHNIQUE: Axial CT images of the brain were obtained with coronal and sagittal reformats created and reviewed. Contrast used:100 mL of Isovue 300 with IV Contrast, Oral contrast used: none. FINDINGS: Extra-axial spaces: No abnormal extra-axial fluid collections. Ventricular system: Mildly increased dilatation of the posterior horn the lateral ventricles when com pared to prior CT examination dated 08/02/2019. Additionally, the fourth ventricle is also intervally increased when compared to prior (series 222, image 13) Cerebral parenchyma: No acute intraparenchymal hemorrhage or mass effect. The ladd-white junction is well differentiated. No abnormal enhancement is seen after the administration of intravenous contras t. Cerebellum: Unremarkable. Mass effect: No evidence of midline shift. Intracranial vasculature: Atherosclerotic calcifications of the intracranial vessels. Soft tissues: Normal. Calvarium/osseous structures: No depressed skull fracture. Paranasal sinuses and mastoid air cells: Clear. Visualized orbits: Bilateral aphakia IMPRESSION: 1. No evidence for acute ischemia or abnormal post-contrast enhancement. 2. Mild increase in ventricular dilatation of uncertain clinical significance when compared to prior exam from 08/02/2019. Consider non-emergent evaluation with an MRI.
--- NOTE | 2022-03-28 21:04 | CT ---
EXAMINATION TYPE: CT abdomen pelvis w con CT DLP: 464 mGycm, Automated exposure control for dose reduction was used. DATE OF EXAM: 03/28/2022 8:27 PM COMPARISON: CT lumbar spine 12/17/2020. CLINICAL INDICATION:Female, 56 years old with history of abd pain; c/o abdominal pain and nausea TECHNIQUE: Axial CT of the abdomen and pelvis. Sagittal and coronal reformats were created on a [employer] workstation. Contrast used:100 mL of Isovue 300 with IV Contrast, Oral contrast used: without Oral Contrast FINDINGS: LOWER CHEST: Unremarkable ABDOMEN LIVER: Diffusely hypoattenuating parenchyma. GALLBLADDER AND BILE DUCTS: Unremarkable. PANCREAS: Unremarkable. SPLEEN: Unremarkable. ADRENAL GLANDS: Unremarkable. KIDNEYS AND URETERS: No evidence of hydronephrosis or renal calculus. The ureters are unremarkable. PELVIS BLADDER: Unremarkable REPRODUCTIVE: Unremarkable. ABDOMEN & PELVIS STOMACH AND BOWEL: Stomach is unremarkable. Small duodenal diverticulum. No evidence of bowel obstruc tion. PERITONEUM: No evidence of pneumoperitoneum or free fluid. VASCULATURE: Mild atherosclerotic calcifications are present throughout the abdominal aorta and its b ranches. No evidence of aortic aneurysm. MUSCULOSKELETAL: No acute osseous abnormalities LYMPH NODES: No gross evidence for lymphadenopathy. SOFT TISSUE/ABDOMINAL WALL: Surgical clips are seen in the right inguinal region. Soft tissues are ot herwise within normal limits. IMPRESSION: 1. No CT evidence for acute intra-abdominal or intrapelvic process. 2. Hepatic steatosis. Additional incidental findings as detailed above.
[2022-03-28 21:17] LABS: Glucose,Whole Blood 177 mg/dL (70-110)
[2022-03-28] MEDS: SODIUM CHLORIDE 0.9% 1,000 ML IV SCH (21:50)
[2022-03-28] MEDS ORDERED: HYDROmorphone 1 MG/ML 1 ML SYRINGE IVP STA (22:44)
[2022-03-28] MEDS ORDERED: tiZANidine 4 MG TAB PO PRN (22:55)
[2022-03-28] MEDS ORDERED: ALBUTEROL NEBULIZED 2.5 MG/3 ML INHALATION PRN (22:55)
[2022-03-28] MEDS ORDERED: SODIUM CHLORIDE 0.9% 1,000 ML IV ONE (22:56)
[2022-03-28] MEDS ORDERED: PRAZOSIN 1 MG CAP PO SCH (23:00)
[2022-03-28] MEDS ORDERED: ATORVASTATIN 20 MG TAB PO SCH (23:00)
[2022-03-28] MEDS ORDERED: THIAMINE 100 MG/ML 2 ML VIAL IM STA (23:09)
[2022-03-28] MEDS ORDERED: LORazepam 1 MG TAB PO PRN ×3 (23:09)
[2022-03-28] MEDS ORDERED: LORazepam 0.5 MG TAB PO PRN (23:09)
[2022-03-28] MEDS: cloNIDine HCL 0.1 MG TAB PO SCH (23:21)
[2022-03-28] MEDS: levETIRAcetam 500 MG TAB PO SCH (23:21)
[2022-03-29 00:53] VITALS: RESP 16
[2022-03-29] MEDS ORDERED: SODIUM CHLORIDE 0.9% 1,000 ML IV ONE (02:21)
[2022-03-29 03:35] VITALS: TEMP 97.7
--- NOTE | 2022-03-29 03:46 | P.HPIM ---
History of Present Illness H&P Date: 03/28/22 Chief Complaint: presycope, chest pain 56 year old female with alcohol dependance , h/o takatsubo She comes in complaining of sudden onset substernal chest pain 8/10 in severity described as painful discomfort. this happened after 2 days of palpitations, she reports palpitations worse with movement associated with feeling nauseated, profused sweating, and SOB. she starts feeling dizzy and about to pass out. she denies any LOC, denies any URI symptoms , fever, chills, abd pain , or changes in bowel or urinary habits. she also reports headache, starts in the frontal area and radiates to the occipital region. no associated focal neuro deficits. she had a similar presentation earlier this year, she was evaluated by cardiology , who recommended OP follow , she has history of Takatsubo syndrome with clean cath at that time. she follow up with cardiology in the summer of this year, and she had a site monitor for some time , but did not show any arrhythmias. workup in the ED showed lactic acidosis CT abd pelvis no acute pathology CT head no acute pathology trops negative , EKG NSR during my interview, patient started having palpitations, and site monitor showed sinus tachycardia around 115-120 denies any changes in her meds, admits to cig smoking, and heavy alcohol consumption, denies illicit drugs, last alcoholic drink this morning Review of Systems Pertinent positives as noted in HPI. All other systems were reviewed and are negative Past Medical History Past Medical History: COPD, Liver Disease, Myocardial Infarction ([place]), Seizure Disorder Additional Past Medical History / Comment(s): LAST SEIZURE - JANUARY 2021, "broken heart syndrome"., elevated liver enzymes, "dislocated disks", hx cervical cancer, "eating disorder"-not sure what, Last Myocardial Infarction Date:: 2019 History of Any Multi-Drug Resistant Organisms: None Reported Past Surgical History: Section, Heart Catheterization, Tubal Ligation Additional Past Surgical History / Comment(s): ORIF rt ankle/hardware later removed, exploratory lap, PAIN CLINIC PROCEDURE, BILAT CATARACTS REMOVED WITH LENS IMPLANTS, procedure to open a vein in left leg, partial amputation rt hand middle finger, "procedure to remove cervical cancer" Past Anesthesia/Blood Transfusion Reactions: No Reported Reaction Past Psychological History: Anxiety, Bipolar, Depression, PTSD Smoking Status: Current every day smoker Past Alcohol Use History: Abuse, Heavy Past Drug Use History: None Reported - Past Family History Father Family Medical History: Cancer, Prostate Disorder, Pulmonary Embolus Additional Family Medical History / Comment(s): Lung cancer. Sister(s) Family Medical History: Cancer Brother(s) Family Medical History: Cancer Medications and Allergies Home Medications Medication Instructions Recorded Confirmed Type levETIRAcetam [Keppra] 500 mg PO BID 10/23/20 03/28/22 History Prazosin [Minipress] 1 mg PO HS 05/22/21 03/28/22 History cloNIDine HCL 0.1 mg PO BID 09/03/21 03/28/22 History Ergocalciferol [Vitamin D2 (1250 1,250 mcg PO WE 10/25/21 03/28/22 History Mcg = 32249 Iu)] Aspirin 81 mg PO DAILY #30 tab 10/26/21 03/28/22 Rx Atorvastatin [Lipitor] 20 mg PO HS #30 tab 10/26/21 03/28/22 Rx tiZANidine HCL [Zanaflex] 4 mg PO Q8H PRN 30 Days #90 capsule 01/19/22 03/28/22 Rx Albuterol Sulfate [Proair Hfa] 2 puff INHALATION RT-Q6H PRN 03/28/22 03/28/22 History Lidocaine 5% Oint [Xylocaine 5% 1 applic TOPICAL TID PRN 03/28/22 03/28/22 History Oint] Allergies Allergy/AdvReac Type Severity Reaction Status Date / Time Penicillins Allergy Rash/Hives/ Verified 03/28/22 19:46 Swelling NSAIDS (Non-Steroidal AdvReac Unknown upset Verified 03/28/22 19:46 Anti-Inflamma stomach sertraline HCl [From Zoloft] AdvReac Suicidal/Ag Verified 03/28/22 19:46 ression Physical Exam Vitals: Vital Signs Temp Pulse Resp BP Pulse Ox 03/28/22 19:20 82 03/28/22 19:10 80 03/28/22 18:56 88 18 136/88 95 03/28/22 16:45 111 H 18 150/95 92 L 03/28/22 15:33 98.2 F 105 H 18 141/102 98 Intake and Output 10/15/22 10/15/22 10/15/22 06:59 14:59 22:59 Other: Weight 40.823 kg Constitutional: No acute distress, conversant, pleasant Eyes: Anicteric sclerae, moist conjunctiva, Pupils equal round reactive to light ENMT: NC/AT Oropharynx clear, no erythema, or exudates Neck: Supple, no masses, or JVD No carotid bruits No thyromegaly Lungs: Clear to auscultation Clear to percussion Normal respiratory effort, no accessory muscle use Cardiovascular: Heart regular in rate and rhythm, No murmurs, gallops, or rubs No peripheral edema Abdominal: Soft Nontender, no guarding, rebound or rigidity Abdomen moving with respiration Normoactive bowel sounds No hepatomegaly, No splenomegaly No palpable mass No abdominal wall hernia noted Skin: Normal temperature, tone, texture, turgor No induration No subcutaneous nodules No rash, lesions No ulcers Extremities: No digital cyanosis No clubbing Pedal pulses intact and symmetrical Radial pulses intact and symmetrical No calf tenderness Psychiatric: Alert and oriented to person, place and time Appropriate affect fair judgement Neuro Muscles Strength 5/5 in all 4 extremities Sensation to light touch grossly present throughout Cranial nerves II-XII grossly intact No focal sensory deficits Lymphatics: no palpable cervical or supraclavicular , or inguinal lymph nodes Results CBC & Chem 7: 03/28/22 16:23 03/28/22 16:23 Labs: Abnormal Lab Results - Last 24 Hours (Table) 03/28/22 03/28/22 03/28/22 Range/Units 16:23 16:23 16:34 Hgb 16.4 H (11.4-16.0) gm/dL Hct 46.4 H (34.0-46.0) % MCV 102.7 H (80.0-100.0) fL MCH 36.3 H (25.0-35.0) pg Sodium 136 L (137-145) mmol/L BUN <2 L (7-17) mg/dL Creatinine 0.34 L (0.52-1.04) mg/dL Glucose 62 L (74-99) mg/dL Plasma Lactic Acid Anthony 2.7 H* (0.7-2.0) mmol/L AST 93 H (14-36) U/L Assessment and Plan Assessment: atypical chest pain rule out ACS EKG no acute changes CXR no acute pathology trops negative X2 site monitor monitor vital signs ASA, statin cardiology consult lipid panel , TSH pain control sinus tachycardia presyncope lactic acidosis site monitor trend lactic acid IVF hydration with normal saline Brain CT no acute pathology CT abd/pelvis no acute pathology alcohol dependance counseled to quit alcohol monitor for alcohol withdrawal syndrome Benzo per ANGEL full code DVT PPX heparin sc tid
[2022-03-29] MEDS ORDERED: ACETAMINOPHEN TAB 325 MG TAB PO PRN (03:47)
[2022-03-29] MEDS ORDERED: HEPARIN SODIUM,PORCINE/PF 5,000 UNIT/0.5 ML SYRINGE SQ SCH (08:00)
[2022-03-29] MEDS: cloNIDine HCL 0.1 MG TAB PO SCH (08:25)
[2022-03-29] MEDS: levETIRAcetam 500 MG TAB PO SCH (08:25)
[2022-03-29] MEDS: SODIUM CHLORIDE 0.9% 1,000 ML IV SCH (08:58)
[2022-03-29 08:59] LABS: Basophils # (A) 0.01 X 10*3/uL (0.00-0.10); Basophils % (A) 0.3 %; Eosinophils # (A) 0 X 10*3/uL (0.04-0.35); Eosinophils % (A) 0 %; HCT 36.3 % (37.2-46.3); HGB 12.7 g/dL (12.0-15.0); Immature Grans, Automated 0.3 %; Lymphocytes # (A) 0.36 X 10*3/uL (0.90-5.00); Lymphocytes % (A) 9.5 %; MCH 36.1 pg (27.0-32.0); MCV 103.1 fL (80.0-97.0); Mean Platelet Volume 9.6 fL (9.5-12.2); Monocytes # (A) 0.08 X 10*3/uL (0.20-1.00); Monocytes % (A) 2.1 %; NRBC Per 100 WBC 0 /100 WBCS (0.0-0.0); Neutrophils # (A) 3.34 X 10*3/uL (1.80-7.70); Neutrophils % (A) 87.8 %; Platelet Count 162 X 10*3/uL (140-440); RBC 3.52 X 10*6/uL (4.10-5.20); RDW 13.5 % (11.5-14.5)
[2022-03-29] MEDS ORDERED: ASPIRIN 81 MG PO SCH (09:00)
[2022-03-29] MEDS ORDERED: THIAMINE 100 MG TAB PO SCH (09:00)
[2022-03-29] MEDS ORDERED: KETOROLAC 15 MG/ML 1 ML VIAL IVP STA (09:28)
[2022-03-29 09:37] LABS: Chol/HDL Ratio 1.57 Ratio; LDL Cholesterol,Calculated 94.2 mg/dL (0.0-131.0)
[2022-03-29 09:40] LABS: African American GFR (CKD) 144.6 (60.0-200.0); Blood Urea Nitrogen <1.4 mg/dL (9.0-27.0); Calcium 7.5 mg/dL (8.7-10.3); Carbon Dioxide 19.7 mmol/L (20.0-27.5); Chloride 103 mmol/L (96-109); Glucose 137 mg/dL (70-110); Non-African American GFR(CKD) 124.8 (60.0-200.0); Potassium 3.8 mmol/L (3.5-5.5); Sodium 137 mmol/L (135-145)
--- NOTE | 2022-03-29 11:59 | P.DS ---
Providers Date of admission: 03/28/22 20:18 Expected date of discharge: 03/29/22 Attending physician: Hiren Banerjee MD Consults: 03/28/22 20:18 Consult Physician Urgent Consulting Provider: [facility] Consult Reason/Comments: acute chest pain Do you want consulting provider notified?: Yes Primary care physician: [facility] Course: Discharge Diagnosis: Atypical chest pain Sinus tachycardia Presyncope Lactic acidosis Alcohol dependence Headache Hospital Course: 56-year-old female with history of alcohol dependence and takatsubo presented with sudden onset chest pain, and presyncope. She was also complaining of on and off palpitations for the last 2 days. Patient was hemodynamically stable. EKG showed normal sinus rhythm, troponins were negative. Patient was evaluated by cardiology, no further workup required for chest pain. Unlikely to be ACS. Lab workup also showed lactic acidosis, which improved with IV fluids. Patient has a significant history of alcohol use, was monitor for alcohol withdrawal and received one-time oral Ativan. Patient seen and examined at bedside. Vital signs reviewed and stable. General: nontoxic, no distress, appears at stated age Derm: warm, dry Head: atraumatic, normocephalic, symmetric Eyes: EOMI, no lid lag, anicteric sclera Mouth: no lip lesion, mucus membranes moist Cardiovascular: S1S2 reg, no murmur Lungs: CTA bilateral, no rhonchi, no rales , no accessory muscle use Abdominal: soft, nontender to palpation, no guarding, no appreciable organomegaly Ext: no gross muscle atrophy, no edema, no contractures Neuro: CN II-XI grossly intact, no focal neuro deficits Psych: Alert, oriented, appropriate affect A total of 36 minutes of time were spent preparing this complex discharge summary. Patient was discharged on 03/29/22 at 11:50. Patient Condition at Discharge: Stable Plan - Discharge Summary New Discharge Prescriptions: New Thiamine [Vitamin B-1] 100 mg PO DAILY #30 tab Continue levETIRAcetam [Keppra] 500 mg PO BID Aspirin 81 mg PO DAILY #30 tab Atorvastatin [Lipitor] 20 mg PO HS #30 tab tiZANidine HCL [Zanaflex] 4 mg PO Q8H PRN 30 Days #90 capsule PRN Reason: Muscle Spasm Prazosin [Minipress] 1 mg PO HS cloNIDine HCL 0.1 mg PO BID Ergocalciferol [Vitamin D2 (1250 Mcg = 39654 Iu)] 1,250 mcg PO WE Lidocaine 5% Oint [Xylocaine 5% Oint] 1 applic TOPICAL TID PRN PRN Reason: hip pain Albuterol Sulfate [Proair Hfa] 2 puff INHALATION RT-Q6H PRN PRN Reason: Shortness Of Breath Discharge Medication List levETIRAcetam [Keppra] 500 mg PO BID 10/23/20 [History] Prazosin [Minipress] 1 mg PO HS 05/22/21 [History] cloNIDine HCL 0.1 mg PO BID 09/03/21 [History] Ergocalciferol [Vitamin D2 (1250 Mcg = 10994 Iu)] 1,250 mcg PO WE 10/25/21 [History] Aspirin 81 mg PO DAILY #30 tab 10/26/21 [Rx] Atorvastatin [Lipitor] 20 mg PO HS #30 tab 10/26/21 [Rx] tiZANidine HCL [Zanaflex] 4 mg PO Q8H PRN 30 Days #90 capsule 01/19/22 [Rx] Albuterol Sulfate [Proair Hfa] 2 puff INHALATION RT-Q6H PRN 03/28/22 [History] Lidocaine 5% Oint [Xylocaine 5% Oint] 1 applic TOPICAL TID PRN 03/28/22 [History] Thiamine [Vitamin B-1] 100 mg PO DAILY #30 tab 03/29/22 [Rx] Follow up Appointment(s)/Referral(s): Henny Angel MD [Primary Care Provider] - 1-2 days Patient Instructions/Handouts: Alcohol Dependence (DC), Chest Pain (DC) Activity/Diet/Wound Care/Special Instructions: Please see PCP in 1-2 days Discharge Disposition: HOME SELF-CARE
[2022-03-29 12:34] VITALS: BP 146/92; PULSE 72
--- NOTE | 2022-03-29 13:25 | P.CRDCN ---
History of Present Illness Consult date: 03/29/22 Consult reason: chest pain History of present illness: The patient is a 56-year-old female with past medical history of EtOH and drug abuse. She presented to the emergency room with chest discomfort and palpitations. She states this has gotten worse over the last 2 days, but it is not worsened by exertion or activity. She also reports having chronic nausea and headache. ACS workup has been unremarkable. DIAGNOSTICS: EKG shows sinus rhythm without ST or T-wave abnormalities Chest x-ray shows no acute cardiopulmonary disease CT of the brain shows no evidence for acute ischemia, however there was mild increase in ventricular dilation of unclear significance CT of the abdomen and pelvis shows no acute intra-abdominal or intrapelvic pro cess. Hepatics steatosis noted. WBC 3.8, hemoglobin 12.7, hematocrit 36.3, platelet 162, sodium 137, potassium 3.8, BUN less than 1.4, creatinine 0.3, troponins negative 3, triglycerides 38, LDL 113, HDL 180, TSH 0.4 PAST MEDICAL HISTORY: Stress cardiomyopathy with normal coronary angiogram, EtOH abuse, drug abuse REVIEW OF SYSTEMS: No fever or chills. No cough or expectoration. No diaphoresi s. Patient denies headache, dizziness, blurred vision, double vision. Patient denies any stomach discomfort. No nausea, vomiting. No hematochezia. No hematemesis. Denies any black stools or blood in his stools. Denies dysuria or hematuria. No muscle weakness or numbness. PHYSICAL EXAMINATION: This is a 56-year-old female in no apparent distress at the time of my examination. HEENT: Mucous membranes of the mouth are moist. Neck is supple. There is no jugular venous distention. No carotid bruit is heard. CHEST EXAMINATION: Lungs are diminished to auscultation. No chest wall tenderness is noted on palpation or with deep breathing. HEART EXAMINATION: Heart regular rate and rhythm. S1, S2 heard. No murmurs, gallops or rub. ABDOMEN: Soft, nontender. Bowel sounds are heard. No organomegaly noted. EXTREMITIES: 2+ peripheral pulses with no evidence of peripheral edema and no calf tenderness noted. NEUROLOGIC EXAMINATION: Patient is awake, alert and oriented x3. FINAL ASSESSMENT AND PLAN: Chest discomfort, not indicative acute coronary syndrome History of stress cardiomyopathy with reported normal heart cath Malnourished History of COPD History of alcohol abuse History of drug abuse History of tobacco use PLAN: Recommend resuming home medication regimen Patient may be discharged from the cardiac standpoint I am dictating on behalf of Dr Dimitrios Ford's history/physical and ass essment/plan. Past Medical History Past Medical History: COPD, Liver Disease, Myocardial Infarction ([place]), Seizure Disorder Additional Past Medical History / Comment(s): LAST SEIZURE - JANUARY 2021, "broken heart syndrome"., elevated liver enzymes, "dislocated disks", hx cervical cancer, "eating disorder"-not sure what, Last Myocardial Infarction Date:: 2019 History of Any Multi-Drug Resistant Organisms: None Reported Past Surgical History: Section, Heart Catheterization, Tubal Ligation Additional Past Surgical History / Comment(s): ORIF rt ankle/hardware later removed, exploratory lap, PAIN CLINIC PROCEDURE, BILAT CATARACTS REMOVED WITH LENS IMPLANTS, procedure to open a vein in left leg, partial amputation rt hand middle finger, "procedure to remove cervical cancer" Past Anesthesia/Blood Transfusion Reactions: No Reported Reaction Past Psychological History: Anxiety, Bipolar, Depression, PTSD Smoking Status: Current every day smoker Past Alcohol Use History: Abuse, Heavy Past Drug Use History: None Reported - Past Family History Father Family Medical History: Cancer, Prostate Disorder, Pulmonary Embolus Additional Family Medical History / Comment(s): Lung cancer. Sister(s) Family Medical History: Cancer Brother(s) Family Medical History: Cancer Medications and Allergies Home Medications Medication Instructions Recorded Confirmed Type levETIRAcetam [Keppra] 500 mg PO BID 10/23/20 03/28/22 History Prazosin [Minipress] 1 mg PO HS 05/22/21 03/28/22 History cloNIDine HCL 0.1 mg PO BID 09/03/21 03/28/22 History Ergocalciferol [Vitamin D2 (1250 1,250 mcg PO WE 10/25/21 03/28/22 History Mcg = 05946 Iu)] Aspirin 81 mg PO DAILY #30 tab 10/26/21 03/28/22 Rx Atorvastatin [Lipitor] 20 mg PO HS #30 tab 10/26/21 03/28/22 Rx tiZANidine HCL [Zanaflex] 4 mg PO Q8H PRN 30 Days #90 capsule 01/19/22 03/28/22 Rx Albuterol Sulfate [Proair Hfa] 2 puff INHALATION RT-Q6H PRN 03/28/22 03/28/22 History Lidocaine 5% Oint [Xylocaine 5% 1 applic TOPICAL TID PRN 03/28/22 03/28/22 History Oint] Thiamine [Vitamin B-1] 100 mg PO DAILY #30 tab 03/29/22 Rx Allergies Allergy/AdvReac Type Severity Reaction Status Date / Time Penicillins Allergy Rash/Hives/ Verified 03/28/22 19:46 Swelling NSAIDS (Non-Steroidal AdvReac Unknown upset Verified 03/28/22 19:46 Anti-Inflamma stomach sertraline HCl [From Zoloft] AdvReac Suicidal/Ag Verified 03/28/22 19:46 ression Physical Exam Vitals: Vital Signs Temp Pulse Pulse Resp BP BP Pulse Ox 03/29/22 07:47 98 16 167/105 98 03/29/22 04:59 75 16 146/83 96 03/29/22 03:34 97.7 F 81 16 146/83 98 03/29/22 00:51 98.4 F 84 16 145/73 93 L 03/28/22 19:20 82 03/28/22 19:10 80 03/28/22 18:56 88 18 136/88 95 03/28/22 16:45 111 H 18 150/95 92 L 03/28/22 15:33 98.2 F 105 H 18 141/102 98 Intake and Output 03/28/22 03/29/22 03/29/22 22:59 06:59 14:59 Intake Total 1999 2700 Balance 19990 Intake: Intake, IV Titration 1250 2700 Amount Magnesium Sulfate-D5w Pmx 100 100 1 gm In Dextrose/Water 1 100ml.bag @ 100 mls/hr IVPB ONCE ONE Rx#: [id number] Sodium Chloride 0.9% 1, 150 600 000 ml @ 75 mls/hr IV . [id number] EDGARDO Rx#:[id number] Sodium Chloride 0.9% 1, 1000 000 ml @ 999 mls/hr IV . Q1H1M ONE Rx#:[id number] Sodium Chloride 0.9% 1, 1000 1000 000 ml @ 999 mls/hr IV . Q1H1M STA Rx#:[id number] Oral 750 Other: # Voids 5 6 # Bowel Movements 3 Weight 40.823 kg Results 03/29/22 04:15 03/29/22 04:15 Cardiac Enzymes 03/28/22 03/28/22 03/28/22 Range/Units 16:23 16:23 21:51 AST 93 H (14-36) U/L Troponin I 0.014 0.013 (0.000-0.034) ng/mL 03/29/22 Range/Units 00:49 AST (14-36) U/L Troponin I 0.017 (0.000-0.034) ng/mL Coagulation 03/28/22 Range/Units 16:23 PT 9.9 (9.0-12.0) sec APTT 22.7 (22.0-30.0) sec CBC 03/28/22 03/29/22 Range/Units 16:23 04:15 WBC 6.1 3.80 L (3.8-10.6) k/uL RBC 4.51 3.52 L (3.80-5.40) m/uL Hgb 16.4 H 12.7 (11.4-16.0) gm/dL Hct 46.4 H 36.3 L (34.0-46.0) % Plt Count 206 162 (150-450) k/uL Comprehensive Metabolic Panel 03/28/22 Range/Units 16:23 Sodium 136 L (137-145) mmol/L Potassium 3.8 (3.5-5.1) mmol/L Chloride 99 (98-107) mmol/L Carbon Dioxide 22 (22-30) mmol/L BUN <2 L (7-17) mg/dL Creatinine 0.34 L (0.52-1.04) mg/dL Glucose 62 L (74-99) mg/dL Calcium 8.8 (8.4-10.2) mg/dL AST 93 H (14-36) U/L ALT 30 (4-34) U/L Alkaline Phosphatase 82 (38-126) U/L Total Protein 6.9 (6.3-8.2) g/dL Albumin 4.6 (3.5-5.0) g/dL Current Medications Generic Name Dose Route Start Last Admin Trade Name Freq PRN Reason Stop Dose Admin Acetaminophen 650 mg 03/29/22 03:47 Acetaminophen Tab 325 Mg Tab PO Q4HR PRN Fever and/ or Pain Albuterol Sulfate 2.5 mg 03/28/22 22:55 Albuterol Nebulized 2.5 Mg/3 Ml INHALATION RT-Q6H PRN Shortness Of Breath Aspirin 81 mg 03/29/22 09:00 03/29/22 08:25 Aspirin 81 Mg PO 81 mg DAILY EDGARDO Administration Atorvastatin Calcium 20 mg 03/28/22 23:00 03/28/22 23:21 Atorvastatin 20 Mg Tab PO 20 mg HS EDGARDO Administration Clonidine 0.1 mg 03/28/22 23:00 03/29/22 08:25 Clonidine Hcl 0.1 Mg Tab PO 0.1 mg BID EDGARDO Administration Heparin Sodium (Porcine) 5,000 unit 03/29/22 08:00 03/29/22 08:25 Heparin Sodium,Porcine/Pf 5,000 Unit/0.5 Ml Syringe SQ 5,000 unit Q8HR EDGARDO Administration Sodium Chloride 1,000 mls @ 75 mls/hr 03/28/22 20:30 03/29/22 08:58 Saline 0.9% IV 75 mls/hr .[id number] EDGARDO Administration Levetiracetam 500 mg 03/28/22 23:00 03/29/22 08:25 Levetiracetam 500 Mg Tab PO 500 mg BID EDGARDO Administration Lorazepam 0.5 mg 03/28/22 23:09 Lorazepam 0.5 Mg Tab PO Q4HR PRN Ciwa 4 To 5 Lorazepam 1 mg 03/28/22 23:09 03/29/22 08:48 Lorazepam 1 Mg Tab PO 1 mg Q4HR PRN Administration Ci[place] 6 To 7 Lorazepam 2 mg 03/28/22 23:09 Lorazepam 1 Mg Tab PO Q2HR PRN [place] 10 or greater Lorazepam 2 mg 03/28/22 23:09 Lorazepam 1 Mg Tab PO Q3HR PRN Ci[place] 8 To 9 Naloxone HCl 0.2 mg 03/28/22 20:18 Naloxone 0.4 Mg/Ml 1 Ml Vial IV Q2M PRN Opioid Reversal Prazosin HCl 1 mg 03/28/22 23:00 03/28/22 23:21 Prazosin 1 Mg Cap PO 1 mg HS EDGARDO Administration Thiamine HCl 100 mg 03/29/22 09:00 03/29/22 08:25 Thiamine 100 Mg Tab PO 100 mg DAILY EDGARDO Administration Tizanidine HCl 4 mg 03/28/22 22:55 Tizanidine 4 Mg Tab PO Q8H PRN Muscle Spasm Intake and Output 03/28/22 03/29/22 03/29/22 22:59 06:59 14:59 Intake Total 1999 2700 Balance 19990 Intake: Intake, IV Titration 1249 2700 Amount Magnesium Sulfate-D5w Pmx 100 100 1 gm In Dextrose/Water 1 100ml.bag @ 100 mls/hr IVPB ONCE ONE Rx#: [id number] Sodium Chloride 0.9% 1, 150 600 000 ml @ 75 mls/hr IV . [id number] EDGARDO Rx#:[id number] Sodium Chloride 0.9% 1, 1000 000 ml @ 999 mls/hr IV . Q1H1M ONE Rx#:[id number] Sodium Chloride 0.9% 1, 1000 1000 000 ml @ 999 mls/hr IV . Q1H1M STA Rx#:[id number] Oral 750 Other: # Voids 5 6 # Bowel Movements 3 Weight 40.823 kg 03/29/22 04:15 03/28/22 16:23
== END 2022-03-29 12:36 | disposition home or self-care (01) ==
LOC: EC 15:29 → 6NMEDSUR 20:18
PROVIDERS: ADMIT Student in an Organized Health Care Education/Training Program; ATTEND Student in an Organized Health Care Education/Training Program
DX: R07.89 Other chest pain (principal); E87.20 Acidosis, unspecified; F10.20 Alcohol dependence, uncomplicated; E46 Unspecified protein-calorie malnutrition; R55 Syncope and collapse; E16.2 Hypoglycemia, unspecified; J44.9 Chronic obstructive pulmonary disease, unspecified; G40.909 Epilepsy, unspecified, not intractable, without status epilepticus; K76.0 Fatty (change of) liver, not elsewhere classified; R63.4 Abnormal weight loss; Z68.1 Body mass index [BMI] 19.9 or less, adult; F17.210 Nicotine dependence, cigarettes, uncomplicated; G89.29 Other chronic pain; M54.2 Cervicalgia; I25.2 Old myocardial infarction; F41.9 Anxiety disorder, unspecified; F31.9 Bipolar disorder, unspecified; F43.10 Post-traumatic stress disorder, unspecified; Z20.822 Contact with and (suspected) exposure to COVID-19; Z71.41 Alcohol abuse counseling and surveillance of alcoholic; Z79.82 Long term (current) use of aspirin; Z79.899 Other long term (current) drug therapy; Z88.0 Allergy status to penicillin; Z88.6 Allergy status to analgesic agent; Z88.8 Allergy status to other drugs, medicaments and biological substances; Z85.41 Personal history of malignant neoplasm of cervix uteri; Z86.59 Personal history of other mental and behavioral disorders; Z87.898 Personal history of other specified conditions; Z86.79 Personal history of other diseases of the circulatory system; Z98.51 Tubal ligation status; Z98.891 History of uterine scar from previous surgery; Z98.42 Cataract extraction status, left eye; Z98.41 Cataract extraction status, right eye; Z96.1 Presence of intraocular lens; Z89.021 Acquired absence of right finger(s); Z98.890 Other specified postprocedural states; Z80.1 Family history of malignant neoplasm of trachea, bronchus and lung; Z82.49 Family history of ischemic heart disease and other diseases of the circulatory system
CPT/HCPCS: 96361; 96365; 96372 ×2; 96375 ×2; 99285; 36415; 94640; 93005; 80061; 80053; 80048; 84443; 83605 ×2; 83735; 84484 ×2; 85025 ×2; 85610; 85730; 81003; 83721; 87502; 87635; 71046; 70460; 74177; G0378 ×2; J1200; J2765; J2930; J3411; J2405; J1170; J3475; J1885; Q9967; J1644; 70450

== ENCOUNTER 2022-06-17 04:08 | Emergency (ER) | payer OTHER ==
[2022-06-17 04:13] VITALS: BP 160/110; PULSE 90; RESP 16; TEMP 97.9
--- NOTE | 2022-06-17 04:17 | ED ---
Alcohol HPI - General Chief Complaint: Fall Stated Complaint: Fall, ETOH Time Seen by Provider: 06/17/22 04:11 Source: patient, EMS, RN notes reviewed, old records reviewed, Caregiver Mode of arrival: EMS Limitations: no limitations - History of Present Illness Initial Comments: This is a 56-year-old female to the emergency department for evaluation. P srini presents today for evaluation regards to fall today. Patient does admit to drinking alcohol today., Unsure of events surrounding fall. Patient had EMS called by friend who was present at the time. 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) Previous Visits for Alcohol Intoxication?: Yes Recent Trauma: Yes Associated Symptoms: denies other symptoms Treatments Prior to Arrival: none Chronic Alcohol Use: Yes - Related Data Home Medications Medication Instructions Recorded Confirmed levETIRAcetam [Keppra] 500 mg PO BID 10/23/20 03/28/22 Prazosin [Minipress] 1 mg PO HS 05/22/21 03/28/22 cloNIDine HCL 0.1 mg PO BID 09/03/21 03/28/22 Ergocalciferol [Vitamin D2 (1250 1,250 mcg PO WE 10/25/21 03/28/22 Mcg = [id number] Iu)] Albuterol Sulfate [Proair Hfa] 2 puff INHALATION RT-Q6H PRN 03/28/22 03/28/22 Lidocaine 5% Oint [Xylocaine 5% 1 applic TOPICAL TID PRN 03/28/22 03/28/22 Oint] Previous Rx's Medication Instructions Recorded Aspirin 81 mg PO DAILY #30 tab 10/26/21 Atorvastatin [Lipitor] 20 mg PO HS #30 tab 10/26/21 tiZANidine HCL [Zanaflex] 4 mg PO Q8H PRN 30 Days #90 capsule 01/19/22 Thiamine [Vitamin B-1] 100 mg PO DAILY #30 tab 03/29/22 Allergies Allergy/AdvReac Type Severity Reaction Status Date / Time Penicillins Allergy Rash/Hives/ Verified 03/28/22 19:46 Swelling NSAIDS (Non-Steroidal AdvReac Unknown upset Verified 03/28/22 19:46 Anti-Inflamma stomach sertraline HCl [From Zoloft] AdvReac Suicidal/Ag Verified 03/28/22 19:46 ression Review of Systems ROS Statement: Those systems with pertinent positive or pertinent negative responses have been documented in the HPI. ROS Other: All systems not noted in ROS Statement are negative. Past Medical History Past Medical History: COPD, Liver Disease, Myocardial Infarction (CT), Seizure Disorder Additional Past Medical History / Comment(s): LAST SEIZURE - JANUARY 2021, "broken heart syndrome"., elevated liver enzymes, "dislocated disks", hx cervical cancer, "eating disorder"-not sure what, Last Myocardial Infarction Date:: 2019 History of Any Multi-Drug Resistant Organisms: None Reported Past Surgical History: Section, Heart Catheterization, Tubal Ligation Additional Past Surgical History / Comment(s): ORIF rt ankle/hardware later removed, exploratory lap, PAIN CLINIC PROCEDURE, BILAT CATARACTS REMOVED WITH LENS IMPLANTS, procedure to open a vein in left leg, partial amputation rt hand middle finger, "procedure to remove cervical cancer" Past Anesthesia/Blood Transfusion Reactions: No Reported Reaction Past Psychological History: Anxiety, Bipolar, Depression, PTSD Smoking Status: Current every day smoker Past Alcohol Use History: Abuse, Heavy Past Drug Use History: None Reported - Past Family History Father Family Medical History: Cancer, Prostate Disorder, Pulmonary Embolus Additional Family Medical History / Comment(s): Lung cancer. Sister(s) Family Medical History: Cancer Brother(s) Family Medical History: Cancer General Exam Limitations: no limitations General appearance: alert, in no apparent distress Head exam: Present: atraumatic, normocephalic, normal inspection Eye exam: Present: normal appearance, PERRL, EOMI. Absent: scleral icterus, conjunctival injection, periorbital swelling ENT exam: Present: normal exam, mucous membranes moist Neck exam: Present: normal inspection. Absent: tenderness, meningismus, lymphadenopathy Respiratory exam: Present: normal lung sounds bilaterally. Absent: respiratory distress, wheezes, rales, rhonchi, stridor Cardiovascular Exam: Present: regular rate, normal rhythm, normal heart sounds. Absent: systolic murmur, diastolic murmur, rubs, gallop, clicks GI/Abdominal exam: Present: soft, normal bowel sounds. Absent: distended, tenderness, guarding, rebound, rigid Extremities exam: Present: normal inspection, full ROM, normal capillary refill. Absent: tenderness, pedal edema, joint swelling, calf tenderness Back exam: Present: normal inspection Neurological exam: Present: alert, oriented X3, CN II-XII intact Psychiatric exam: Present: normal affect, normal mood Skin exam: Present: warm, dry, intact, normal color. Absent: rash Course Vital Signs 06/17/22 04:08 Temperature 97.9 F Pulse Rate 90 Respiratory 16 Rate Blood Pressure 160/110 O2 Sat by Pulse 98 Oximetry - Reevaluation(s) Reevaluation #1: 06/17/22 04:39 medical records reviewed Reevaluation #2: 06/17/22 04:40 Patient informed results and questions answered Reevaluation #3: 06/17/22 04:40 Patient has no change in symptoms Reevaluation #4: 06/17/22 04:40 Differential Altered Mental Status: Hypoglycemia, DKA, hypercapnia, ETOH, overdose, CO poisoning, trauma, myxedema coma, HTN encephalopathy, infection, encephalitis, psychosis, intercranial hemorrhage, hepatic encephalopathy, meningitis, CVA, this is not meant to be an all-inclusive list Reevaluation #5: 06/17/22 04:40 Was pt. sent in by a medical professional or institution? @ -no Did you speak to anyone other than the patient for history? @ -ems Did you review nursing and triage notes? @ -agree Were old charts reviewed? @ -no Differential Diagnosis? @ -no EKG interpreted by me (3pts min.)? @ -[none] X-rays interpreted by me (1pt min.)? @ -yes CT interpreted by me (1pt min.)? @ -[none] U/S interpreted by me (1pt. min.)? @ -[none] What testing was considered but not performed? (CT, X-rays, U/S, labs)? Why? @ no What meds were considered but not given? Why? @ -[none] Did you discuss the management of the patient with other professionals? @ -no Did you reconcile home meds? @ -[none] Was smoking cessation discussed for >3mins.? @ -[none] Was critical care preformed (if so, how long)? @ -[none] Were there social determinants of health that impacted care today? How? (Yun elessness, low income, unemployed, alcoholism, drug addiction, transportation, low edu. Level, literacy, decrease access to med. care, correction, rehab)? @ -etoh Was there de-escalation of care discussed even if they declined? (Discuss DNR or withdrawal of care, Hospice)? @ -no What co-morbidities impacted this encounter? (DM, HTN, Smoking, COPD, CAD, Cancer, CVA, Hep., AIDS, mental health diagnosis, sleep apnea, morbid obesity)? @ -no Was patient admitted / discharged? @ -dc Undiagnosed new problem with uncertain prognosis? @ -[none] Drug Therapy requiring intensive monitoring for toxicity (Heparin, Nitro, Insulin, Cardizem)? @ -[none] Were any procedures done? @ -[none] Diagnosis/symptom? @ -fall,etoh Acute, or Chronic, or Acute on Chronic? @ -acute Uncomplicated (without systemic symptoms) or Complicated (systemic symptoms)? @ -uncomplicated Side effects of treatment? @ -[none] Exacerbation, Progression, or Severe Exacerbation] @ -[no] Poses a threat to life or bodily function? @ -[no] 06/17/22 04:41 Medical Decision Making - Medical Decision Making 56 female to the emergency department status post fall positive EtOH no dramatic injuries noted. Patient can be discharged home Disposition Clinical Impression: Fall, Alcohol intoxication Disposition: HOME SELF-CARE Condition: Fair Instructions (If sedation given, give patient instructions): Fall Prevention for Older Adults (ED) Is patient prescribed a controlled substance at d/c from ED?: No Referrals: Henny Angel MD [Primary Care Provider] - 1-2 days Time of Disposition: 05:00
--- NOTE | 2022-06-17 04:42 | XR ---
EXAMINATION TYPE: XR pelvis AP view DATE OF EXAM: 06/17/2022 COMPARISON: NONE HISTORY: Fall. Pain TECHNIQUE: Single view FINDINGS: Pelvic ring is intact. Proximal femurs and hip joints appear normal. Sacroiliac joints are normal. There are clips over the right inguinal region. IMPRESSION: Negative pelvis xray exam. No fracture.
--- NOTE | 2022-06-17 04:44 | XR ---
EXAMINATION TYPE: XR chest 1V DATE OF EXAM: 06/17/2022 COMPARISON: NONE HISTORY: Fall. Pain TECHNIQUE: FINDINGS: Heart is normal. Lungs are clear. Diaphragm is normal. Bony thorax is intact. No pleural ef fusion or pneumothorax. Pulmonary vascularity is normal. IMPRESSION: Normal chest. No change.
--- NOTE | 2022-06-17 04:49 | CT ---
EXAMINATION TYPE: CT brain [place] wo con DATE OF EXAM: 06/17/2022 COMPARISON: CT brain 03/28/2022 HISTORY: FALL, ETOH CT DLP: 1256.3 mGycm Automated exposure control for dose reduction was used. Images of the brain and cervical spine obtained with no contrast. There is cerebral cortical atrophy. There is no mass effect or midline shift. No sign of intracranial hemorrhage. The calvarium is intact. The cervical vertebra have fairly normal alignment. There is minimal subluxation at C4-5. There is mi ld disc space narrowing at C5-6 and C6-7 with spurring of the endplates. The facet joints are intact. There is mild multilevel cervical facet arthropathy. There is normal aeration of the mastoid sinuses . Occipital bone is intact. IMPRESSION: Cerebral atrophy. No acute intracranial abnormality. No adverse change. Minor degenerative hypertrophic disc changes in the cervical spine. No fracture.
[2022-06-17] MEDS ORDERED: ACETAMINOPHEN TAB 500 MG TAB PO STA (04:57)
== END 2022-06-17 05:17 | disposition home or self-care (01) ==
LOC: EC 04:08
DX: F10.129 Alcohol abuse with intoxication, unspecified (principal); J44.9 Chronic obstructive pulmonary disease, unspecified; I25.2 Old myocardial infarction; G40.909 Epilepsy, unspecified, not intractable, without status epilepticus; F41.9 Anxiety disorder, unspecified; F31.9 Bipolar disorder, unspecified; F17.200 Nicotine dependence, unspecified, uncomplicated; Z88.0 Allergy status to penicillin; Z88.2 Allergy status to sulfonamides; Z88.6 Allergy status to analgesic agent; Z79.899 Other long term (current) drug therapy; W19.XXXA Unspecified fall, initial encounter; Y90.9 Presence of alcohol in blood, level not specified
CPT/HCPCS: 70450; 71045; 72125; 72170; 99285

== ENCOUNTER → 2022-09-01 | Outpatient (CLI) | payer OTHER ==
--- NOTE | 2022-09-01 14:46 | US ---
EXAMINATION TYPE: US venous doppler duplex LE DATE OF EXAM: 09/01/2022 2:27 PM COMPARISON: NONE CLINICAL HISTORY: M79.89. Leg swelling SIDE PERFORMED: Bilateral TECHNIQUE: The lower extremity deep venous system is examined utilizing real time linear array sonog dimas with graded compression, doppler sonography and color-flow sonography. VESSELS IMAGED: Common Femoral Vein Deep Femoral Vein Greater Saphenous Vein * Femoral Vein Popliteal Vein Small Saphenous Vein * Proximal Calf Veins (* superficial vessels) Right Leg: Negative for DVT Left Leg: Negative for DVT results called to Dr. Inman at time of exam IMPRESSION: 1. Bilateral lower extremity ultrasound negative for deep venous thrombosis.
== END | disposition home or self-care (01) ==
LOC: RADUSWWP 13:29
PROVIDERS: ATTEND Family Medicine
DX: M79.89 Other specified soft tissue disorders (principal)
CPT/HCPCS: 93970

== ENCOUNTER 2022-10-28 14:43 | Emergency (ER) | payer OTHER ==
[2022-10-28 14:51] VITALS: PULSE 77; RESP 18; TEMP 97.4
--- NOTE | 2022-10-28 15:35 | ED ---
General Adult HPI - General Chief complaint: Seizure Stated complaint: Seizure Time Seen by Provider: 10/28/22 15:05 Source: patient, EMS Mode of arrival: EMS Limitations: no limitations - History of Present Illness Initial comments: Dictation was produced using [employer] dictation software. please excuse any grammatical, word or spelling errors. Chief Complaint: 56-year-old female with past medical history of seizure disorder presents to the ER after seizure History of Present Illness: 56-year-old female she resides history of present illness she is at her friend's house when allegedly she had a seizure. Patient has history of seizure disorder. She is a daily alcohol consumer. Denies any alcohol withdrawal symptoms. Has not had alcohol withdrawal seizures in the past. Patient is prescribed seizure medications that she is not taking like she is supposed to. Patient denies any complaints at the bedside. The ROS documented in this emergency department record has been reviewed and confirmed by me. Those systems with pertinent positive or negative responses have been documented in the HPI. All other systems are other negative and/or noncontributory. - Related Data Home Medications Medication Instructions Recorded Confirmed levETIRAcetam [Keppra] 500 mg PO BID 10/23/20 10/28/22 cloNIDine HCL 0.1 mg PO BID 09/03/21 10/28/22 Fluorometholone 0.1% Ophth Sharmin 1 drops BOTH EYES BID 10/28/22 10/28/22 [Fml] Allergies Allergy/AdvReac Type Severity Reaction Status Date / Time Penicillins Allergy Rash/Hives/ Verified 10/28/22 16:41 Swelling NSAIDS (Non-Steroidal AdvReac Unknown upset Verified 10/28/22 16:41 Anti-Inflamma stomach sertraline HCl [From Zoloft] AdvReac Suicidal/Ag Verified 10/28/22 16:41 ression Review of Systems ROS Statement: Those systems with pertinent positive or pertinent negative responses have been documented in the HPI. ROS Other: All systems not noted in ROS Statement are negative. Past Medical History Past Medical History: COPD, Liver Disease, Myocardial Infarction (CO), Seizure Disorder Additional Past Medical History / Comment(s): LAST SEIZURE - JANUARY 2021, "broken heart syndrome"., elevated liver enzymes, "dislocated disks", hx cervical cancer, "eating disorder"-not sure what, Last Myocardial Infarction Date:: 2019 History of Any Multi-Drug Resistant Organisms: None Reported Past Surgical History: Section, Heart Catheterization, Tubal Ligation Additional Past Surgical History / Comment(s): ORIF rt ankle/hardware later removed, exploratory lap, PAIN CLINIC PROCEDURE, BILAT CATARACTS REMOVED WITH LENS IMPLANTS, procedure to open a vein in left leg, partial amputation rt hand middle finger, "procedure to remove cervical cancer" Past Anesthesia/Blood Transfusion Reactions: No Reported Reaction Past Psychological History: Anxiety, Bipolar, Depression, PTSD Smoking Status: Current every day smoker Past Alcohol Use History: Abuse, Heavy Past Drug Use History: Marijuana - Past Family History Father Family Medical History: Cancer, Prostate Disorder, Pulmonary Embolus Additional Family Medical History / Comment(s): Lung cancer. Sister(s) Family Medical History: Cancer Brother(s) Family Medical History: Cancer General Exam - General Exam Comments Initial Comments: PHYSICAL EXAM: General Impression: Alert and oriented x3, not in acute distress HEENT: Normocephalic atraumatic, extra-ocular movements intact, pupils equal and reactive to light bilaterally, mucous membranes moist. Cardiovascular: Heart regular rate and rhythm Chest: Able to complete full sentences, no retractions, no tachypnea Abdomen: abdomen soft, non-tender, non-distended, no organomegaly Musculoskeletal: Pulses present and equal in all extremities, no peripheral edema Motor: no focal deficits noted Neurological: CN II-XII grossly intact, no focal motor or sensory deficits noted Skin: Intact with no visualized rashes Psych: Normal affect and mood Limitations: no limitations Course Vital Signs 10/28/22 14:46 Temperature 97.4 F L Pulse Rate 77 Respiratory 18 Rate Blood Pressure 155/107 O2 Sat by Pulse 98 Oximetry Medical Decision Making - Medical Decision Making Was pt. sent in by a medical professional or institution (, PA, SCIENTIFIC RESEARCH ASSOCIATE, urgent care, hospital, or assisted...) When possible be specific @ -No Did you speak to anyone other than the patient for history (EMS, parent, family, police, friend...)? What history was obtained from this source @ -EMS states patient had seizure Did you review nursing and triage notes (agree or disagree)? Why? @ -I reviewed and agree with nursing and triage notes Were old charts reviewed (outside hosp., previous admission, EMS record, old EKG, old radiological studies, urgent care reports/EKG's, assisted records)? Report findings @ -No old charts were reviewed Differential Diagnosis (chest pain, altered mental status, abdominal pain women, abdominal pain men, vaginal bleeding, musculoskeletal, weakness, fever, dyspnea, syncope, headache, dizziness, GI bleed, back pain, seizure, CVA, palpatations, mental health)? @ -Differential Seizure: Recurrent seizure disorder, febrile seizure, alcohol withdrawal, stimulants, meningitis, encephalitis, intercranial hemorrhage, intracranial tumor, stroke, eclampsia, thyrotoxicosis, hypocalcemia, hyponatremia, hypernatremia, hypomagnesemia, psychogenic, this is not meant to be an all-inclusive list. EKG interpreted by me (3pts min.). @ -My EKG interpretation: Ventricular rate 71, sinus rhythm,. 179, QRS 87, QTc 437. No DE prolongation, no QTC prolongation, no ST or T-wave changes noted. Overall, this EKG is unremarkable X-rays interpreted by me (1pt min.). @ -None done CT interpreted by me (1pt min.). @ -None done U/S interpreted by me (1pt. min.). @ -None done What testing was considered but not performed or refused? (CT, X-rays, U/S, labs)? Why? @ -None What meds were considered but not given or refused? Why? @ -None Did you discuss the management of the patient with other professionals (professionals i.e. , PA, SCIENTIFIC RESEARCH ASSOCIATE, lab, RT, psych nurse, social media marketer, scheduler maintenance, teacher, chief financial officer, case sealer)? Give summary @ -No Was smoking cessation discussed for >3mins.? @ -No Was critical care preformed (if so, how long)? @ -No Were there social determinants of health that impacted care today? How? (Homelessness, low income, unemployed, alcoholism, drug addiction, transportation, low edu. Level, literacy, decrease access to med. care, alf, rehab)? @ -History of seizure disorder noncompliant with seizure medications Was there de-escalation of care discussed even if they declined (Discuss DNR or withdrawal of care, Hospice)? DNR status @ -No What co-morbidities impacted this encounter? (DM, HTN, Smoking, COPD, CAD, Cancer, CVA, ARF, Chemo, Hep., AIDS, mental health diagnosis, sleep apnea, morbid obesity)? @ -None Was patient admitted / discharged? Hospital course, mention meds given and route, prescriptions, significant lab abnormalities, going to OR and other pertinent info. @ -56-year-old female had seizure prior to arrival. Patient does not have any obvious clinical exam signs that she did have a seizure. She did not have any incontinence. She does not have any lateral tongue avulsion. Patient reports having a history of seizure disorder she takes Keppra. She noncompliant with her medications. Vital signs stable. Physical examination is benign. No lab abnormalities. Patient observed in emergency department for 2 hours and 10 minutes. No further seizures. Patient discharged. She is strongly urged to take medications as prescribed. Patient given keppra Loading dose prior to discharge. Undiagnosed new problem with uncertain prognosis? @ -No Drug Therapy requiring intensive monitoring for toxicity (Heparin, Nitro, Insulin, Cardizem)? @ -No Were any procedures done? @ -No Diagnosis/symptom? Acute, or Chronic, or Acute on Chronic? Uncomplicated (without systemic symptoms) or Complicated (systemic symptoms)? @ -Seizure Side effects of treatment? @ -No Exacerbation, Progression, or Severe Exacerbation? @ -No Poses a threat to life or bodily function? How? (Chest pain, [place], CO, pneumonia, PE, COPD, DKA, ARF, appy, cholecystitis, CVA, Diverticulitis, Homicidal, Suicidal, threat to staff... and all critical care pts) @ -Yes - Lab Data Result diagrams: 10/28/22 16:10 10/28/22 16:10 Lab Results 10/28/22 10/28/22 Range/Units 16:10 16:10 WBC 3.9 (3.8-10.6) k/uL RBC 4.13 (3.80-5.40) m/uL Hgb 14.7 (11.4-16.0) gm/dL Hct 42.1 (34.0-46.0) % MCV 102.0 H (80.0-100.0) fL MCH 35.5 H (25.0-35.0) pg MCHC 34.8 (31.0-37.0) g/dL RDW 13.1 (11.5-15.5) % Plt Count 218 (150-450) k/uL MPV 6.9 Neutrophils % 46 % Lymphocytes % 40 % Monocytes % 9 % Eosinophils % 1 % Basophils % 1 % Neutrophils # 1.8 (1.3-7.7) k/uL Lymphocytes # 1.5 (1.0-4.8) k/uL Monocytes # 0.4 (0-1.0) k/uL Eosinophils # 0.0 (0-0.7) k/uL Basophils # 0.0 (0-0.2) k/uL Macrocytosis Slight Sodium 133 L (137-145) mmol/L Potassium 4.1 (3.5-5.1) mmol/L Chloride 97 L (98-107) mmol/L Carbon Dioxide 23 (22-30) mmol/L Anion Gap 13 mmol/L BUN <2 L (7-17) mg/dL Creatinine 0.32 L (0.52-1.04) mg/dL Est GFR (CKD-EPI)AfAm >90 (>60 ml/min/1.73 sqM) Est GFR (CKD-EPI)NonAf >90 (>60 ml/min/1.73 sqM) Glucose 78 (74-99) mg/dL Calcium 8.8 (8.4-10.2) mg/dL Magnesium 1.9 (1.6-2.3) mg/dL Disposition Clinical Impression: Seizure Disposition: HOME SELF-CARE Condition: Good Instructions (If sedation given, give patient instructions): Recurrent Seizures in Adults (ED) Is patient prescribed a controlled substance at d/c from ED?: No Referrals: None,Stated [REFERRING] - 1-2 days Time of Disposition: 16:55
[2022-10-28 16:31] LABS: Basophils % (A) 1 %; Eosinophils % (A) 1 %; HCT 42.1 % (34.0-46.0); HGB 14.7 gm/dL (11.4-16.0); Lymphocytes # (A) 1.5 k/uL (1.0-4.8); Lymphocytes % (A) 40 %; MCH 35.5 pg (25.0-35.0); MCHC 34.8 g/dL (31.0-37.0); Macrocytosis Slight; Mean Platelet Volume 6.9; Monocytes # (A) 0.4 k/uL (0-1.0); Monocytes % (A) 9 %; Neutrophils # (A) 1.8 k/uL (1.3-7.7); Neutrophils % (A) 46 %; Platelet Count 218 k/uL (150-450); RBC 4.13 m/uL (3.80-5.40); RDW 13.1 % (11.5-15.5); WBC 3.9 k/uL (3.8-10.6)
[2022-10-28 16:44] LABS: African American GFR (CKD) >90 (>60 ml/min/1.73 sqM); Anion Gap 13 mmol/L; Blood Urea Nitrogen <2 mg/dL (7-17); Calcium 8.8 mg/dL (8.4-10.2); Carbon Dioxide 23 mmol/L (22-30); Chloride 97 mmol/L (98-107); Glucose 78 mg/dL (74-99); Magnesium 1.9 mg/dL (1.6-2.3); Non-African American GFR(CKD) >90 (>60 ml/min/1.73 sqM); Potassium 4.1 mmol/L (3.5-5.1); Sodium 133 mmol/L (137-145)
[2022-10-28] MEDS ORDERED: levETIRAcetam IV 500 MG/5 ML VIAL IVP STA (16:54)
[2022-10-28 17:29] VITALS: BP 135/84
== END 2022-10-28 17:28 | disposition home or self-care (01) ==
LOC: EC 14:43
DX: R56.9 Unspecified convulsions (principal); J44.9 Chronic obstructive pulmonary disease, unspecified; I25.2 Old myocardial infarction; F41.9 Anxiety disorder, unspecified; F31.9 Bipolar disorder, unspecified; F17.200 Nicotine dependence, unspecified, uncomplicated; F12.90 Cannabis use, unspecified, uncomplicated; Z88.0 Allergy status to penicillin; Z88.6 Allergy status to analgesic agent; Z88.8 Allergy status to other drugs, medicaments and biological substances; Z79.899 Other long term (current) drug therapy
CPT/HCPCS: 36415; 93005; 80048; 83735; 85025; 99284; 96374; J1953

== ENCOUNTER 2022-11-07 06:05 | Emergency (ER) | payer OTHER ==
[2022-11-07 06:12] VITALS: TEMP 97.8
[2022-11-07] MEDS ORDERED: SODIUM CHLORIDE 0.9% 1,000 ML IV STA (06:44)
[2022-11-07] MEDS ORDERED: ONDANSETRON 4 MG/2 ML VIAL IVP STA (06:44)
[2022-11-07] MEDS ORDERED: MORPHINE SULFATE 4 MG/ML SYRINGE IV STA (06:44)
[2022-11-07] MEDS ORDERED: PANTOPRAZOLE 40 MG/10 ML VIAL IVP STA (06:46)
--- NOTE | 2022-11-07 06:53 | ED ---
General Adult HPI - General Chief complaint: Nausea/Vomiting/Diarrhea Stated complaint: Fall Time Seen by Provider: 11/07/22 06:33 Source: patient, EMS, RN notes reviewed, old records reviewed Mode of arrival: EMS - History of Present Illness Initial comments: 56-year-old female presents to the emergency room with complaints of black coffee ground emesis multiple times over the past 2 days and black tarry stools. States that she has had increasing weakness and fell 3 times yesterday due to weakness. Is complaining of bilateral knee and hip pain. Patient states she has never had this happen before. She does have a history of HTN and seizure disorder takes Keppra. Did have a exploratory lap surgery when she was 18 years old but does not remember why. No other abdominal surgeries. She is a pack-a-day smoker. She does drink 4 beers a day. Denies any drug abuse. -: days(s) (2) Location: left, right, lower extremity (hips and knees) Radiation: non-radiation Severity scale (1-10): 9 Quality: aching Consistency: constant Improves with: none Associated Symptoms: nausea/vomiting, weakness (fall x3 since yesterday), other (Coffee ground Emesis, Black Stools) - Related Data Home Medications Medication Instructions Recorded Confirmed levETIRAcetam [Keppra] 500 mg PO BID 10/23/20 10/28/22 cloNIDine HCL 0.1 mg PO BID 09/03/21 10/28/22 Fluorometholone 0.1% Ophth Sharmin 1 drops BOTH EYES BID 10/28/22 10/28/22 [Fml] Allergies Allergy/AdvReac Type Severity Reaction Status Date / Time Penicillins Allergy Rash/Hives/ Verified 10/28/22 16:41 Swelling NSAIDS (Non-Steroidal AdvReac Unknown upset Verified 10/28/22 16:41 Anti-Inflamma stomach sertraline HCl [From Zoloft] AdvReac Suicidal/Ag Verified 10/28/22 16:41 ression Review of Systems ROS Statement: Those systems with pertinent positive or pertinent negative responses have been documented in the HPI. ROS Other: All systems not noted in ROS Statement are negative. Past Medical History Past Medical History: COPD, Liver Disease, Myocardial Infarction ([place]), Seizure Disorder Additional Past Medical History / Comment(s): LAST SEIZURE - JANUARY 2021, "broken heart syndrome"., elevated liver enzymes, "dislocated disks", hx cervical cancer, "eating disorder"-not sure what, Last Myocardial Infarction Date:: 2019 History of Any Multi-Drug Resistant Organisms: None Reported Past Surgical History: Section, Heart Catheterization, Tubal Ligation Additional Past Surgical History / Comment(s): ORIF rt ankle/hardware later removed, exploratory lap, PAIN CLINIC PROCEDURE, BILAT CATARACTS REMOVED WITH LENS IMPLANTS, procedure to open a vein in left leg, partial amputation rt hand middle finger, "procedure to remove cervical cancer" Past Anesthesia/Blood Transfusion Reactions: No Reported Reaction Past Psychological History: Anxiety, Bipolar, Depression, PTSD Smoking Status: Current every day smoker Past Alcohol Use History: Abuse, Heavy Past Drug Use History: Marijuana - Past Family History Father Family Medical History: Cancer, Prostate Disorder, Pulmonary Embolus Additional Family Medical History / Comment(s): Lung cancer. Sister(s) Family Medical History: Cancer Brother(s) Family Medical History: Cancer General Exam General appearance: alert, in no apparent distress Head exam: Present: atraumatic Eye exam: Present: normal appearance. Absent: scleral icterus, conjunctival injection, periorbital swelling ENT exam: Present: mucous membranes moist Neck exam: Present: full ROM. Absent: tenderness, meningismus Respiratory exam: Present: normal lung sounds bilaterally. Absent: respiratory distress, accessory muscle use Cardiovascular Exam: Present: regular rate GI/Abdominal exam: Present: soft. Absent: distended, tenderness, guarding, rebound, rigid Extremities exam: Present: full ROM, tenderness (Bilateral knees, hips), normal capillary refill. Absent: pedal edema, joint swelling, calf tenderness Left Knee exam: Present: full ROM, tenderness, abrasion, full knee extension. Absent: swelling, ecchymosis, deformity, erythema, effusion, pain w/ pronation/supination, pain/laxity with valgus, pain/laxity with varus Lower Leg exam: Present: full ROM. Absent: tenderness, swelling Neurovascular tendon exam: Present: no vascular compromise. Absent: abnormal cap refill, extremity cold to touch, pallor, foot drop Right Knee exam: Present: full ROM, tenderness, full knee extension. Absent: swelling, abrasion, laceration, ecchymosis, deformity, erythema, effusion, pain/laxity with valgus, pain/laxity with varus Lower Leg exam: Present: full ROM. Absent: tenderness Ankle exam: Present: full ROM. Absent: tenderness Foot/Toe exam: Present: full ROM. Absent: tenderness Neurovascular tendon exam: Present: no vascular compromise. Absent: abnormal cap refill, extremity cold to touch, pallor, foot drop Back exam: Present: full ROM. Absent: tenderness, CVA tenderness (R), CVA tenderness (L), paraspinal tenderness, vertebral tenderness, rash noted Neurological exam: Present: alert, oriented X3 Psychiatric exam: Present: normal affect, normal mood Skin exam: Present: warm, dry, normal color. Absent: cyanosis, diaphoretic, petechiae, pallor Course Vital Signs 11/07/22 11/07/22 06:07 08:00 Temperature 97.8 F Pulse Rate 113 H 94 Respiratory 24 20 Rate Blood Pressure 96/86 114/93 O2 Sat by Pulse 100 99 Oximetry EKG Findings - EKG Results: EKG: interpreted by DEDRICK, sinus rhythm (EKG interpreted by me shows sinus rhythm with a ventricular rate of 89, ID interval 0.172, QRS 0.73, QTC 0.457. ST depression in aVF with ST elevation in V1 and V2. EKG reviewed with Dr Davies) Medical Decision Making - Medical Decision Making Was pt. sent in by a medical professional or institution (, PA, DOCUMENT PREPARATION SPECIALIST, urgent care, hospital, or alf...) When possible be specific @ -[No] Did you speak to anyone other than the patient for history (EMS, parent, family, police, friend...)? What history was obtained from this source @ -[No] Did you review nursing and triage notes (agree or disagree)? Why? @ -[I reviewed and agree with nursing and triage notes] Were old charts reviewed (outside hosp., previous admission, EMS record, old EKG, old radiological studies, urgent care reports/EKG's, alf records)? Report findings @ -Previous labs and EKG. Differential Diagnosis (chest pain, altered mental status, abdominal pain women, abdominal pain men, vaginal bleeding, weakness, fever, dyspnea, syncope, headache, dizziness, GI bleed, back pain, seizure, CVA, palpatations, mental health, musculoskeletal)? @ -Differential GI Bleed: Esophageal varices, aortoenteric fistula, [place], gastritis, peptic ulcer disease, diverticulosis, inflammatory bowel disease, hemorrhoids, fissure, colitis, malignancy, Meckels diverticulum, this is not meant to be an all- inclusive list. EKG interpreted by me (3pts min.). @ -yes as above, EKG interpreted by me shows sinus rhythm with a ventricular rate of 89, ID interval 0.172, QRS 0.73, QTC 0.457. ST depression in aVF with ST elevation in V1 and V2. EKG reviewed with Dr Davies X-rays interpreted by me (1pt min.). @ -Chest x-ray interpreted by me shows no evidence of focal consolidation, cardiac silhouette within normal size, trachea is midline. CT interpreted by me (1pt min.). @ -[None done] U/S interpreted by me (1pt. min.). @ -[None done] What testing was considered but not performed or refused? (CT, X-rays, U/S, labs)? Why? @ -[None] What meds were considered but not given or refused? Why? @ -Heparin was considered but held due to occult blood positive,GI bleed Did you discuss the management of the patient with other professionals (professionals i.e. , PA, DOCUMENT PREPARATION SPECIALIST, lab, RT, psych nurse, social service assistant, fire investigation manager, teacher, code enforcement officer, behavioral health case manager)? Give summary @ -[No] Was smoking cessation discussed for >3mins.? @ -[No] Was critical care preformed (if so, how long)? @ -[No] Were there social determinants of health that impacted care today? How? (Homelessness, low income, unemployed, alcoholism, drug addiction, transportation, low edu. Level, literacy, decrease access to med. care, [facility], rehab)? @ -[No] Was there de-escalation of care discussed even if they declined (Discuss DNR or withdrawal of care, Hospice)? DNR status @ -[No] What co-morbidities impacted this encounter? (DM, HTN, Smoking, COPD, CAD, Cancer, CVA, ARF, Chemo, Hep., AIDS, mental health diagnosis, sleep apnea, morbid obesity)? @ -COPD, liver disease, seizure disorder, depression, EtOH, smoker, [place] Was patient admitted / discharged? Hospital course, mention meds given and route, prescriptions, significant lab abnormalities, going to OR and other pertinent info. @ -Admitted transfer to [facility] accepted by Dr Stanford. 56-year-old female presents with complaints of black coffee ground emesis multiple times over the past 2 days and black tarry stools. States that she has had increasing weakness and fell 3 times yesterday due to weakness. No previous GIB. States has a history of liver disease and is a daily drinker 4 beers a day. Also pack-a-day smoker. Patient was given pain medication for her bilateral knee pain and abdominal pain along with Protonix. Zofran and reglan for nausea. The patient is guaiac positive. Patient's labs show a hemoglobin of 11 and hematocrit of 32. Potassium is 2.4 she was given supplementation. Sodium 123 with lactic acid 3.3. Patient was given IV fluids. Total bili 1.7, AST 54, ALT 44, most recent comparison 03/28/22 T bili 0.8, AST 93, ALT 30. Patient does have a known history of liver disease. Troponin is positive at 0.052 consistent with a NSTEMI. This case and EKG was discussed with Dr. Davies who recomm ended oral aspirin, due to the GI bleed we will hold heparin. EKG interpreted by me shows sinus rhythm with a ventricular rate of 89, ID interval 0.172, QRS 0.73, QTC 0.457. ST depression in aVF with ST elevation in V1 and V2. EKG reviewed with Dr Davies Patient denies any chest pain or shortness of breath. Hemodynamically stable. Chest x-ray interpreted by me shows no evidence of focal consolidation, cardiac silhouette within normal size, trachea is midline. Radiologist interpretation no acute pulmonary process. No significant change compared to 06/17/2022. Patient was notified of the results. Will be transferred as we do not have GI coverage for her GI bleed. Undiagnosed new problem with uncertain prognosis? @ -[No] Drug Therapy requiring intensive monitoring for toxicity (Heparin, Nitro, Insulin, Cardizem)? @ -[No] Were any procedures done? @ -[No] Diagnosis/symptom? @ -GI bleed, and STEMI, hyponatremia, hypokalemia, weakness, lactic acidosis, multiple falls Acute, or Chronic, or Acute on Chronic? @ -Acute Uncomplicated (without systemic symptoms) or Complicated (systemic symptoms)? @ -Complicated Side effects of treatment? @ -[No] Exacerbation, Progression, or Severe Exacerbation? @ -[No] Poses a threat to life or bodily function? How? (Chest pain, [place], [place], pneumonia, PE, COPD, DKA, ARF, appy, cholecystitis, CVA, Diverticulitis, Homicidal, [place]ison icidal, threat to staff... and all critical care pts) @ -Yes NSTEMI with GI bleed and multiple electrolyte abnormalities - Lab Data Result diagrams: 11/07/22 06:48 11/07/22 06:48 Lab Results 11/07/22 11/07/22 11/07/22 Range/Units 06:48 06:48 06:48 WBC 12.1 H (3.8-10.6) k/uL RBC 3.30 L (3.80-5.40) m/uL Hgb 11.9 (11.4-16.0) gm/dL Hct 32.3 L (34.0-46.0) % MCV 98.1 (80.0-100.0) fL MCH 36.2 H (25.0-35.0) pg MCHC 36.9 (31.0-37.0) g/dL RDW 12.6 (11.5-15.5) % Plt Count 175 (150-450) k/uL MPV 7.6 Neutrophils % 77 % Lymphocytes % 8 % Monocytes % 12 % Eosinophils % 1 % Basophils % 0 % Neutrophils # 9.4 H (1.3-7.7) k/uL Lymphocytes # 1.0 (1.0-4.8) k/uL Monocytes # 1.5 H (0-1.0) k/uL Eosinophils # 0.1 (0-0.7) k/uL Basophils # 0.0 (0-0.2) k/uL Hyperchromasia Slight PT 10.6 (9.0-12.0) sec INR 1.0 (<1.2) APTT 22.0 (22.0-30.0) sec Sodium 123 L (137-145) mmol/L Potassium 2.4 L* (3.5-5.1) mmol/L Chloride 80 L (98-107) mmol/L Carbon Dioxide 22 (22-30) mmol/L Anion Gap 21 mmol/L BUN 20 H (7-17) mg/dL Creatinine 0.48 L (0.52-1.04) mg/dL Est GFR (CKD-EPI)AfAm >90 (>60 ml/min/1.73 sqM) Est GFR (CKD-EPI)NonAf >90 (>60 ml/min/1.73 sqM) Glucose 177 H (74-99) mg/dL Plasma Lactic Acid Anthony (0.7-2.0) mmol/L Calcium 9.3 (8.4-10.2) mg/dL Phosphorus 2.5 (2.5-4.5) mg/dL Magnesium 1.9 (1.6-2.3) mg/dL Total Bilirubin 1.7 H (0.2-1.3) mg/dL AST 57 H (14-36) U/L ALT 44 H (4-34) U/L Alkaline Phosphatase 57 (38-126) U/L Troponin I (0.000-0.034) ng/mL Total Protein 6.3 (6.3-8.2) g/dL Albumin 4.3 (3.5-5.0) g/dL Stool Occult Blood (Negative) 11/07/22 11/07/22 11/07/22 Range/Units 06:48 07:08 07:55 WBC (3.8-10.6) k/uL RBC (3.80-5.40) m/uL Hgb (11.4-16.0) gm/dL Hct (34.0-46.0) % MCV (80.0-100.0) fL MCH (25.0-35.0) pg MCHC (31.0-37.0) g/dL RDW (11.5-15.5) % Plt Count (150-450) k/uL MPV Neutrophils % % Lymphocytes % % Monocytes % % Eosinophils % % Basophils % % Neutrophils # (1.3-7.7) k/uL Lymphocytes # (1.0-4.8) k/uL Monocytes # (0-1.0) k/uL Eosinophils # (0-0.7) k/uL Basophils # (0-0.2) k/uL Hyperchromasia PT (9.0-12.0) sec INR (<1.2) APTT (22.0-30.0) sec Sodium (137-145) mmol/L Potassium (3.5-5.1) mmol/L Chloride (98-107) mmol/L Carbon Dioxide (22-30) mmol/L Anion Gap mmol/L BUN (7-17) mg/dL Creatinine (0.52-1.04) mg/dL Est GFR (CKD-EPI)AfAm (>60 ml/min/1.73 sqM) Est GFR (CKD-EPI)NonAf (>60 ml/min/1.73 sqM) Glucose (74-99) mg/dL Plasma Lactic Acid Nathony 3.3 H* (0.7-2.0) mmol/L Calcium (8.4-10.2) mg/dL Phosphorus (2.5-4.5) mg/dL Magnesium (1.6-2.3) mg/dL Total Bilirubin (0.2-1.3) mg/dL AST (14-36) U/L ALT (4-34) U/L Alkaline Phosphatase (38-126) U/L Troponin I 0.052 H* (0.000-0.034) ng/mL Total Protein (6.3-8.2) g/dL Albumin (3.5-5.0) g/dL Stool Occult Blood Positive H (Negative) Disposition Clinical Impression: GIB (gastrointestinal bleeding), NSTEMI (non-ST elevated myocardial infarctio n), Hypokalemia, Hyponatremia, Lactic acidosis, Weakness, Multiple falls Disposition: OTHER INSTITUTION NOT DEFINED Condition: Good Referrals: Henny Anegl MD [Primary Care Provider] - 1-2 days Decision Date: 11/07/22 Decision Time: 08:33 - Out of Hospital Transfer - Req. Specs Out of Hospital Transfer - Requested Specifics: Other Emergency Center ([facility])
[2022-11-07 06:55] LABS: Basophils % (A) 0 %; Eosinophils # (A) 0.1 k/uL (0-0.7); Eosinophils % (A) 1 %; HCT 32.3 % (34.0-46.0); HGB 11.9 gm/dL (11.4-16.0); Hyperchromasia Slight; Lymphocytes % (A) 8 %; MCH 36.2 pg (25.0-35.0); MCHC 36.9 g/dL (31.0-37.0); MCV 98.1 fL (80.0-100.0); Mean Platelet Volume 7.6; Monocytes # (A) 1.5 k/uL (0-1.0); Monocytes % (A) 12 %; Neutrophils # (A) 9.4 k/uL (1.3-7.7); Neutrophils % (A) 77 %; Platelet Count 175 k/uL (150-450); RDW 12.6 % (11.5-15.5); WBC 12.1 k/uL (3.8-10.6)
[2022-11-07 07:13] LABS: ALT 44 U/L (4-34); AST 57 U/L (14-36); African American GFR (CKD) >90 (>60 ml/min/1.73 sqM); Albumin 4.3 g/dL (3.5-5.0); Alkaline Phosphatase 57 U/L (38-126); Anion Gap 21 mmol/L; Blood Urea Nitrogen 20 mg/dL (7-17); Calcium 9.3 mg/dL (8.4-10.2); Carbon Dioxide 22 mmol/L (22-30); Chloride 80 mmol/L (98-107); Glucose 177 mg/dL (74-99); Magnesium 1.9 mg/dL (1.6-2.3); Non-African American GFR(CKD) >90 (>60 ml/min/1.73 sqM); Phosphorus 2.5 mg/dL (2.5-4.5); Sodium 123 mmol/L (137-145); Total Bilirubin 1.7 mg/dL (0.2-1.3); Total Protein 6.3 g/dL (6.3-8.2)
[2022-11-07 07:16] LABS: Prothrombin Time 10.6 sec (9.0-12.0)
[2022-11-07 07:36] LABS: Potassium 2.4 mmol/L (3.5-5.1)
[2022-11-07] MEDS ORDERED: Potassium Replacement Protocol 1 EACH MISC MISCELLANE PRN (07:38)
--- NOTE | 2022-11-07 07:38 | XR ---
EXAMINATION TYPE: XR chest 2V DATE OF EXAM: 11/07/2022 COMPARISON: Chest x-ray June 17, 2022 HISTORY: Cough and weakness. TECHNIQUE: Frontal and lateral views of the chest are obtained. FINDINGS: There is no suspicious new focal air space opacity, pleural effusion, or pneumothorax seen . The cardiac silhouette size is stable and within normal limits. The osseous structures are intac t. IMPRESSION: No acute pulmonary process. No significant change from prior.
[2022-11-07] MEDS: POTASSIUM CHLORIDE ER 20 MEQ TAB.ER PO ONE ×2 (07:43→07:46)
[2022-11-07] MEDS ORDERED: POTASSIUM BICARBONATE/CIT AC 20 MEQ TABLET.EFF PO ONE (07:47)
[2022-11-07] MEDS ORDERED: ASPIRIN 81 MG PO STA (07:51)
[2022-11-07] MEDS ORDERED: SODIUM CHLORIDE 0.9% 500 ML 500 ML IV ONE (07:59)
[2022-11-07] MEDS: POTASSIUM CHLORIDE 10 MEQ in WATER FOR INJECTION 1 100ML.BAG IVPB SCH ×2 (08:08→09:16)
[2022-11-07] MEDS ORDERED: METOCLOPRAMIDE 5 MG/ML 2 ML VIAL IVP STA (08:17)
[2022-11-07] MEDS ORDERED: fentaNYL (PF) 50 MCG/ML 2 ML AMP IVP STA (08:17)
[2022-11-07] MEDS ORDERED: SODIUM CHLORIDE 0.9% 1,000 ML IV SCH (08:30)
[2022-11-07 09:21] VITALS: BP 142/92; PULSE 97; RESP 16
== END 2022-11-07 09:47 | disposition other institution (70) ==
LOC: EC 06:05
DX: S81.012A Laceration without foreign body, left knee, initial encounter (principal); S81.011A Laceration without foreign body, right knee, initial encounter; K92.2 Gastrointestinal hemorrhage, unspecified; I21.4 Non-ST elevation (NSTEMI) myocardial infarction; E87.6 Hypokalemia; E87.1 Hypo-osmolality and hyponatremia; J44.9 Chronic obstructive pulmonary disease, unspecified; I25.2 Old myocardial infarction; F41.9 Anxiety disorder, unspecified; F31.9 Bipolar disorder, unspecified; F12.90 Cannabis use, unspecified, uncomplicated; F17.200 Nicotine dependence, unspecified, uncomplicated; Z79.899 Other long term (current) drug therapy; Z88.0 Allergy status to penicillin; Z88.8 Allergy status to other drugs, medicaments and biological substances
CPT/HCPCS: 36415; 93005; 80053; 83605; 83735; 84100; 84484; 85025; 85610; 85730; 82272; 71046; 99285; 96365; 96375 ×5; 96361 ×3; J2270; J2765; J2405; J3010; J3480; C9113

== ENCOUNTER 2022-11-16 21:47 | Emergency (ER) | payer OTHER ==
[2022-11-16 22:00] VITALS: TEMP 97.7
[2022-11-16] MEDS ORDERED: KETOROLAC 15 MG/ML 1 ML VIAL IVP STA (22:13)
--- NOTE | 2022-11-16 22:27 | ED ---
General Adult HPI - General Chief complaint: Extremity Problem,Nontraumatic Stated complaint: ETOH Time Seen by Provider: 11/16/22 21:54 Source: patient, EMS, RN notes reviewed, old records reviewed Mode of arrival: EMS - History of Present Illness Initial comments: Patient is a 56-year-old female with past medical history remarkable for chronic alcohol abuse, liver disease, history of COPD who presents emergency Department with multiple complaints. States she has acutely intoxicated with alcohol. States she has chronic chest pain but currently has no chest pain. Has not had chest pain for a few days. Does have a history of peptic ulcer disease. She is concerned today of her alcohol intoxication as well as her lower extremities being swollen. States her feet are swollen. States "I could stick a needle and popped them." Denies any shortness breath or chest pain. Denies any abdominal pain. Denies any other acute complaints at this time. Denies any history of blood clots or congestive heart failure. Denies any coughing. Presents for further evaluation. States the leg swelling started suddenly today.Denies injury. Denies significant pain. Denies trauma. - Related Data Home Medications Medication Instructions Recorded Confirmed levETIRAcetam [Keppra] 500 mg PO BID 10/23/20 10/28/22 cloNIDine HCL 0.1 mg PO BID 09/03/21 10/28/22 Fluorometholone 0.1% Ophth Sharmin 1 drops BOTH EYES BID 10/28/22 10/28/22 [Fml] Allergies Allergy/AdvReac Type Severity Reaction Status Date / Time Penicillins Allergy Rash/Hives/ Verified 10/28/22 16:41 Swelling NSAIDS (Non-Steroidal AdvReac Unknown upset Verified 10/28/22 16:41 Anti-Inflamma stomach sertraline HCl [From Zoloft] AdvReac Suicidal/Ag Verified 10/28/22 16:41 ression Review of Systems ROS Statement: Those systems with pertinent positive or pertinent negative responses have been documented in the HPI. Review of Systems: CONST: Denies fever EYES: Denies blurry vision ENT: Denies nasal congestion C/V: Denies Chest pain RESP: Denies shortness of breath GI: Denies abdominal pain : Denies dysuria SKIN: Denies rash. MSK: Endorses leg swelling NEURO: Denies headache ROS Other: All systems not noted in ROS Statement are negative. Past Medical History Past Medical History: COPD, Liver Disease, Myocardial Infarction (MS), Seizure Disorder Additional Past Medical History / Comment(s): LAST SEIZURE - JANUARY 2021, "broken heart syndrome"., elevated liver enzymes, "dislocated disks", hx cervical cancer, "eating disorder"-not sure what, Last Myocardial Infarction Date:: 2019 History of Any Multi-Drug Resistant Organisms: None Reported Past Surgical History: Section, Heart Catheterization, Tubal Ligation Additional Past Surgical History / Comment(s): ORIF rt ankle/hardware later removed, exploratory lap, PAIN CLINIC PROCEDURE, BILAT CATARACTS REMOVED WITH LENS IMPLANTS, procedure to open a vein in left leg, partial amputation rt hand middle finger, "procedure to remove cervical cancer" Past Anesthesia/Blood Transfusion Reactions: No Reported Reaction Past Psychological History: Anxiety, Bipolar, Depression, PTSD Smoking Status: Current every day smoker Past Alcohol Use History: Abuse, Heavy Past Drug Use History: Marijuana - Past Family History Father Family Medical History: Cancer, Prostate Disorder, Pulmonary Embolus Additional Family Medical History / Comment(s): Lung cancer. Sister(s) Family Medical History: Cancer Brother(s) Family Medical History: Cancer General Exam - General Exam Comments Initial Comments: General: Appears acutely intoxicated with alcohol. HEAD: Normal with no signs of head trauma. EYES: PERRLA, EOMI, conjunctiva normal, no discharge. ENT: Hearing grossly intact, normal oropharynx. RESPIRATORY: Clear breath sounds bilaterally. No wheezes, rales, or rhonchi. C/V: Regular rate and rhythm. S1 and S2 auscultated, no significant pitting e swathi., peripheral pulses 2+ and intact throughout. Edema of the bilateral lower extremities is isolated to the feet alone and is extremely mild. Overall unimpressive. ABD: Abd is soft, nontender, nondistended EXT: Normal range of motion, no obvious deformity SKIN: No rashes or lesions observed on exposed skin. NEURO: Alert and oriented 4. Course Vital Signs 11/16/22 11/16/22 11/16/22 21:54 22:00 22:30 Temperature 97.7 F Pulse Rate 65 Respiratory 17 Rate Blood Pressure 120/82 104/74 107/77 O2 Sat by Pulse 100 100 99 Oximetry 11/16/22 11/17/22 11/17/22 23:00 00:30 03:57 Temperature Pulse Rate 70 73 73 Respiratory 17 16 18 Rate Blood Pressure 115/86 95/66 110/67 O2 Sat by Pulse 100 97 96 Oximetry Medical Decision Making - Medical Decision Making Was pt. sent in by a medical professional or institution (, PA, HYDROGEN PLANT OPERATOR, urgent care, hospital, or [facility]...) When possible be specific @ -No Did you speak to anyone other than the patient for history (EMS, parent, family, police, friend...)? What history was obtained from this source @ -No Did you review nursing and triage notes (agree or disagree)? Why? @ -I reviewed and agree with nursing and triage notes, except patient has not had any recent chest pain. Is a chronic history of chest pain but states she has not had any today. She is not here for chest pain. Were old charts reviewed (outside hosp., previous admission, EMS record, old EKG, old radiological studies, urgent care reports/EKG's, [facility] records)? Report findings @ -Old chart reviewed from October 2022 when she was transferred for GI bleed. Differential Diagnosis (chest pain, altered mental status, abdominal pain women, abdominal pain men, vaginal bleeding, weakness, fever, dyspnea, syncope, headache, dizziness, GI bleed, back pain, seizure, CVA, palpatations, mental health, musculoskeletal)? @ -Differential Musculoskeletal Muscular strain, contusion, ligament sprain, fracture, arthritis, septic arthritis, bursitis, cellulitis, muscle spasm, nerve compression, DVT, arterial occlusion, herpes zoster, electrolyte abnormality, tumor.... This is not meant to be in all inclusive list EKG interpreted by me (3pts min.). @ -As above X-rays interpreted by me (1pt min.). @ -Chest x-ray reveals no evidence of obvious acute cardio pulmonary process. CT interpreted by me (1pt min.). @ -None done U/S interpreted by me (1pt. min.). @ -Venous duplex ultrasound negative for any evidence of DVT per radiology. What testing was considered but not performed or refused? (CT, X-rays, U/S, labs)? Why? @ -None What meds were considered but not given or refused? Why? @ -None Did you discuss the management of the patient with other professionals (vandana pandya i.eRenetta Dill, PA, HY[employer]OG[employer] PLANT OPERATOR, lab, RT, psych nurse, social worker aide, rounder hand, teacher, search and rescue officer, disease case manager)? Give summary @ -No Was smoking cessation discussed for >3mins.? @ -No Was critical care preformed (if so, how long)? @ -No Were there social determinants of health that impacted care today? How? (Homelessness, low income, unemployed, alcoholism, drug addiction, transportati on, low edu. Level, literacy, decrease access to med. care, retirement, rehab)? @ -No Was there de-escalation of care discussed even if they declined (Discuss DNR or withdrawal of care, Hospice)? DNR status @ -No What co-morbidities impacted this encounter? (DM, HTN, Smoking, COPD, CAD, Cancer, CVA, ARF, Chemo, Hep., AIDS, mental health diagnosis, sleep apnea, morbid obesity)? @ -None Was patient admitted / discharged? Hospital course, mention meds given and route, prescriptions, significant lab abnormalities, going to OR and other pertinent info. @ -Based on the patient's presentation and physical exam, I'm concerned for alcohol intoxication. The patient. Patient has very mild if any bilateral foot edema which is symmetrical and unremarkable. We'll obtain screening BMP, EKG as well as venous duplexes at the patient's request. She will be symptomatically t reated with IV Toradol. Vital signs within acceptable limits. Patient at minimum requires observation until clinically sober. She was in agreement with the plan. Labs are remarkable for chronic anemia with hemoglobin 9.3, alcohol intoxication at 252. BNP within normal limits. On reevaluation, patient is still intoxicated. We discussed her workup. She is ambulatory however still unsteady on her feet. We'll observe until clinically sober. She was in agreement with this plan. After a period of observation, patient would like to leave. She is ambulatory without issue. She is not a danger to herself or others. She is clinically sober at this time. She'll be discharged home at this time strict return precautions. I instructed the patient to follow up with their PCP in the next 1-3 days. I explained that the patient should return to the emergency department if they experience any worsening symptoms. Strict return precautions were discussed with the patient. The patient expressed understanding of these instructions. I answered all questions that the patient had. The patient was discharged home in good condition with their prescriptions and follow up information. Undiagnosed new problem with uncertain prognosis? @ -No Drug Therapy requiring intensive monitoring for toxicity (Heparin, Nitro, Insulin, Cardizem)? @ -No Were any procedures done? @ -No Diagnosis/symptom? @ -Alcohol intoxication Acute, or Chronic, or Acute on Chronic? @ -Acute on chronic Uncomplicated (without systemic symptoms) or Complicated (systemic symptoms)? @ -Complicated Side effects of treatment? @ -none Exacerbation, Progression, or Severe Exacerbation] @ -no Poses a threat to life or bodily function? @ -no - Lab Data Result diagrams: 11/16/22 22:26 11/16/22 22: Lab Results 11/16/22 11/16/22 11/16/22 Range/Units 22:26 22: 22: WBC 6.0 (3.8-10.6) k/uL RBC 2.34 L (3.80-5.40) m/uL Hgb 9.3 L D (11.4-16.0) gm/dL Hct 24.3 L (34.0-46.0) % MCV 103.8 H D (80.0-100.0) fL MCH 39.5 H (25.0-35.0) pg MCHC 38.1 H (31.0-37.0) g/dL RDW 14.0 (11.5-15.5) % Plt Count 532 H D (150-450) k/uL MPV 7.0 Neutrophils % 54 % Lymphocytes % 33 % Monocytes % 10 % Eosinophils % 1 % Basophils % 0 % Neutrophils # 3.2 (1.3-7.7) k/uL Lymphocytes # 2.0 (1.0-4.8) k/uL Monocytes # 0.6 (0-1.0) k/uL Eosinophils # 0.1 (0-0.7) k/uL Basophils # 0.0 (0-0.2) k/uL Poikilocytosis Slight Macrocytosis Slight Sodium 137 (137-145) mmol/L Potassium 3.9 (3.5-5.1) mmol/L Chloride 106 (98-107) mmol/L Carbon Dioxide 19 L (22-30) mmol/L Anion Gap 12 mmol/L BUN 5 L (7-17) mg/dL Creatinine 0.46 L (0.52-1.04) mg/dL Est GFR (CKD-EPI)AfAm >90 (>60 ml/min/1.73 sqM) Est GFR (CKD-EPI)NonAf >90 (>60 ml/min/1.73 sqM) Glucose 82 (74-99) mg/dL Calcium 8.2 L (8.4-10.2) mg/dL Total Bilirubin 0.1 L (0.2-1.3) mg/dL AST 31 (14-36) U/L ALT 20 (4-34) U/L Alkaline Phosphatase 65 (38-126) U/L NT-Pro-B Natriuret Pep 331 pg/mL Total Protein 5.0 L (6.3-8.2) g/dL Albumin 3.0 L (3.5-5.0) g/dL Serum Alcohol 252 H* mg/dL - EKG Data -: EKG Interpreted by Me EKG Comments: 12-lead Electrocardiogram Interpretation Note EKG was reviewed and interpreted by myself. 12-lead ECG performed at 2241 is interpreted by me as revealing normal sinus rhythm at a rate of 60 beats per minute. [place] is normal. [place] interval is 185 ms, QRS duration is 82 ms, QTc is 427 ms.. There were no ST or T wave abnormalities to suggest myocardial ischemia or injury. R wave progression across the precordium was satisfactory. By my interpretation this EKG is non-diagnostic for acute ischemia. Disposition Clinical Impression: Alcohol intoxication Disposition: HOME SELF-CARE Condition: Stable Instructions (If sedation given, give patient instructions): Alcohol Intoxication (ED) Is patient prescribed a controlled substance at d/c from ED?: No Referrals: Henny Angel MD [Primary Care Provider] - 1-2 days Time of Disposition: 03:52
[2022-11-16 22:50] LABS: Basophils % (A) 0 %; Eosinophils # (A) 0.1 k/uL (0-0.7); Eosinophils % (A) 1 %; HCT 24.3 % (34.0-46.0); Lymphocytes % (A) 33 %; MCH 39.5 pg (25.0-35.0); Macrocytosis Slight; Monocytes # (A) 0.6 k/uL (0-1.0); Monocytes % (A) 10 %; Neutrophils # (A) 3.2 k/uL (1.3-7.7); Neutrophils % (A) 54 %; Poikilocytosis Slight; RBC 2.34 m/uL (3.80-5.40)
[2022-11-16 22:52] LABS: ALT 20 U/L (4-34); AST 31 U/L (14-36); African American GFR (CKD) >90 (>60 ml/min/1.73 sqM); Alkaline Phosphatase 65 U/L (38-126); Anion Gap 12 mmol/L; Blood Urea Nitrogen 5 mg/dL (7-17); Calcium 8.2 mg/dL (8.4-10.2); Carbon Dioxide 19 mmol/L (22-30); Chloride 106 mmol/L (98-107); Glucose 82 mg/dL (74-99); Non-African American GFR(CKD) >90 (>60 ml/min/1.73 sqM); Potassium 3.9 mmol/L (3.5-5.1); Sodium 137 mmol/L (137-145); Total Bilirubin 0.1 mg/dL (0.2-1.3)
[2022-11-16 22:59] LABS: Alcohol 252 mg/dL; MCHC 38.1 g/dL (31.0-37.0)
[2022-11-16 23:02] LABS: HGB 9.3 gm/dL (11.4-16.0); MCV 103.8 fL (80.0-100.0)
[2022-11-16 23:03] LABS: Platelet Count 532 k/uL (150-450)
--- NOTE | 2022-11-16 23:08 | XR ---
EXAMINATION TYPE: XR chest 2V DATE OF EXAM: 11/16/2022 10:57 PM COMPARISON: Chest radiographs from 12/08/2022 TECHNIQUE: XR chest 2V Frontal and lateral views of the chest. CLINICAL INDICATION:Female, 56 years old with history of abdominal pain; FINDINGS: Lungs/Pleura: There is no evidence of pleural effusion, focal consolidation, or pneumothorax. Pulmonary vascularity: Unremarkable. Heart/mediastinum: Cardiomediastinal silhouette is unremarkable. Musculoskeletal: No acute osseous pathology. IMPRESSION: No acute cardiopulmonary disease/process.
--- NOTE | 2022-11-16 23:57 | US ---
EXAMINATION TYPE: US venous doppler duplex LE DATE OF EXAM: 11/16/2022 10:15 PM COMPARISON: 09/01/22 CLINICAL INDICATION: Female, 56 years old with history of BL feet swelling; Bilateral leg swelling SIDE PERFORMED: Bilateral TECHNIQUE: The lower extremity deep venous system is examined utilizing real time linear array sonog dimas with graded compression, doppler sonography and color-flow sonography. VESSELS IMAGED: Common Femoral Vein Deep Femoral Vein Greater Saphenous Vein * Femoral Vein Popliteal Vein Small Saphenous Vein * Proximal Calf Veins (* superficial vessels) Right Leg: Negative for DVT Left Leg: Negative for DVT IMPRESSION: Grayscale, color doppler, spectral doppler imaging performed of the deep veins of the lo wer extremities. There is normal flow, compressibility, vascular waveforms.
[2022-11-17 01:05] VITALS: PULSE 73
[2022-11-17 03:58] VITALS: BP 110/67; RESP 18
== END 2022-11-17 04:01 | disposition home or self-care (01) ==
LOC: EC 21:47
DX: F10.129 Alcohol abuse with intoxication, unspecified (principal); J44.9 Chronic obstructive pulmonary disease, unspecified; I25.2 Old myocardial infarction; F41.9 Anxiety disorder, unspecified; F31.9 Bipolar disorder, unspecified; F17.200 Nicotine dependence, unspecified, uncomplicated; Z79.899 Other long term (current) drug therapy; Z88.0 Allergy status to penicillin; Z88.6 Allergy status to analgesic agent; Z20.822 Contact with and (suspected) exposure to COVID-19; Y90.8 Blood alcohol level of 240 mg/100 ml or more
CPT/HCPCS: 36415; 93005; 83880; 80053; 85025; 71046; 93970; 99285; 96374; G0480; J1885; 80320

== ENCOUNTER 2022-12-27 17:51 | Emergency (ER) | payer OTHER ==
[2022-12-27] MEDS ORDERED: SODIUM CHLORIDE 0.9% 1,000 ML IV STA (18:28)
[2022-12-27] MEDS ORDERED: MECLIZINE 12.5 MG TAB PO STA (18:28)
--- NOTE | 2022-12-27 18:34 | ED ---
Dizziness HPI - General Chief Complaint: Dizziness Stated Complaint: Dizziness Time Seen by Provider: 12/27/22 18:20 Source: patient, EMS Mode of arrival: EMS Limitations: no limitations - History of Present Illness Initial Comments: 56-year-old female presenting with chief complaint of dizziness. She states that the symptoms started yesterday. Symptoms are worse with head movement. Patient suffers from alcoholism, she has 4 tallboy today, the last records 4 hours ago. She tells me that 2 days ago she slipped and fell out of bed, she denies head injury. She admits to diffuse abdominal discomfort. She has history of gastric ulcer and states that she has not had a bowel movement in several days. No chest pain or difficulty breathing. No nausea or vomiting. No headache. - Related Data Home Medications Medication Instructions Recorded Confirmed levETIRAcetam [Keppra] 500 mg PO BID 10/23/20 10/28/22 cloNIDine HCL 0.1 mg PO BID 09/03/21 10/28/22 Fluorometholone 0.1% Ophth Sharmin 1 drops BOTH EYES BID 10/28/22 10/28/22 [Fml] Allergies Allergy/AdvReac Type Severity Reaction Status Date / Time Penicillins Allergy Rash/Hives/ Verified 10/28/22 16:41 Swelling NSAIDS (Non-Steroidal AdvReac Unknown upset Verified 10/28/22 16:41 Anti-Inflamma stomach sertraline HCl [From Zoloft] AdvReac Suicidal/Ag Verified 10/28/22 16:41 ression Review of Systems ROS Statement: Those systems with pertinent positive or pertinent negative responses have been documented in the HPI. ROS Other: All systems not noted in ROS Statement are negative. Past Medical History Past Medical History: COPD, Liver Disease, Myocardial Infarction ([place]), Seizure Disorder Additional Past Medical History / Comment(s): LAST SEIZURE - JANUARY 2021, "broken heart syndrome"., elevated liver enzymes, "dislocated disks", hx cervical cancer, "eating disorder"-not sure what, Last Myocardial Infarction Date:: 2019 History of Any Multi-Drug Resistant Organisms: None Reported Past Surgical History: Section, Heart Catheterization, Tubal Ligation Additional Past Surgical History / Comment(s): ORIF rt ankle/hardware later removed, exploratory lap, PAIN CLINIC PROCEDURE, BILAT CATARACTS REMOVED WITH LENS IMPLANTS, procedure to open a vein in left leg, partial amputation rt hand middle finger, "procedure to remove cervical cancer" Past Anesthesia/Blood Transfusion Reactions: No Reported Reaction Past Psychological History: Anxiety, Bipolar, Depression, PTSD Smoking Status: Current every day smoker Past Alcohol Use History: Abuse, Heavy Past Drug Use History: Marijuana - Past Family History Father Family Medical History: Cancer, Prostate Disorder, Pulmonary Embolus Additional Family Medical History / Comment(s): Lung cancer. Sister(s) Family Medical History: Cancer Brother(s) Family Medical History: Cancer General Exam Limitations: no limitations General appearance: alert, in no apparent distress Head exam: Present: atraumatic, normocephalic, normal inspection Eye exam: Present: normal appearance, PERRL, EOMI. Absent: scleral icterus, conjunctival injection, periorbital swelling Pupils: Present: normal accommodation Neck exam: Present: normal inspection, full ROM Respiratory exam: Present: normal lung sounds bilaterally. Absent: respiratory distress, wheezes, rales, rhonchi, stridor Cardiovascular Exam: Present: regular rate, normal rhythm, normal heart sounds. Absent: systolic murmur, diastolic murmur, rubs, gallop, clicks GI/Abdominal exam: Present: soft, tenderness. Absent: distended, guarding, rebound, rigid Extremities exam: Present: normal inspection, full ROM Neurological exam: Present: alert, oriented X3, CN II-XII intact Expanded Speech: Present: fluid speech Cranial nerves: EOM's Intact: Normal, Nystagmus: Abnormal Left Cerebellar function: Finger to Nose: Abnormal Right, Abnormal Left Motor strength exam: RUE: 5, LUE: 5, RLE: 5, LLE: 5 Eye Response: (4) open spontaneously Motor Response: (6) obeys commands Verbal Response: (5) oriented Donald Total: 15 Psychiatric exam: Present: normal affect, normal mood Skin exam: Present: warm, dry, intact, normal color. 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 sent in by a medical professional or institution (, PA, JAVA DEVELOPER ANALYST, urgent care, hospital, or [facility]...) When possible be specific @ -No Did you speak to anyone other than the patient for history (EMS, parent, family, police, friend...)? What history was obtained from this source @ -No Did you review nursing and triage notes (agree or disagree)? Why? @ -I reviewed and agree with nursing and triage notes Were old charts reviewed (outside hosp., previous admission, EMS record, old EKG, old radiological studies, urgent care reports/EKG's, [facility] records)? Report findings @ -No old charts were reviewed Differential Diagnosis (chest pain, altered mental status, abdominal pain women, abdominal pain men, vaginal bleeding, weakness, fever, dyspnea, syncope, headache, dizziness, GI bleed, back pain, seizure, CVA, palpatations, mental health, musculoskeletal)? @ -MDM Differential Dizziness: Benign paroxysmal positional Vertigo, Menieres disease, otitis media, acoustic neuroma, vertebrobasilar insufficiency, cerebellar stroke, encephalitis, hypovolemic, arrhythmia, coronary artery syndrome, anemia this is not meant to be an all-inclusive list EKG interpreted by me (3pts min.). @ -Sinus rhythm ventricular rate 72. DC interval 186. QRS 84. QTC 410. QTC 435. No ischemic changes. X-rays interpreted by me (1pt min.). @ -X-ray shows no acute process. KUB x-ray shows gaseous dilation of the small bowel otherwise no acute process CT interpreted by me (1pt min.). @ -Negative CT of the brain U/S interpreted by me (1pt. min.). @ -None done What testing was considered but not performed or refused? (CT, X-rays, U/S, labs)? Why? @ -None What meds were considered but not given or refused? Why? @ -None Did you discuss the management of the patient with other professionals (professionals i.e. , PA, JAVA DEVELOPER ANALYST, lab, RT, psych nurse, social group worker, cook pie, teacher, chief digital officer, community case manager)? Give summary @ -No Was smoking cessation discussed for >3mins.? @ -No Was critical care preformed (if so, how long)? @ -No Were there social determinants of health that impacted care today? How? (Homelessness, low income, unemployed, alcoholism, drug addiction, transportation, low edu. Level, literacy, decrease access to med. care, fci, rehab)? @ -No Was there de-escalation of care discussed even if they declined (Discuss DNR or withdrawal of care, Hospice)? DNR status @ -No What co-morbidities impacted this encounter? (DM, HTN, Smoking, COPD, CAD, Cancer, CVA, ARF, Chemo, Hep., AIDS, mental health diagnosis, sleep apnea, morbid obesity)? @ -None Was patient admitted / discharged? Hospital course, mention meds given and route, prescriptions, significant lab abnormalities, going to OR and other pertinent info. @ -54-year-old female with history of alcoholism presents with chief complaint of dizziness. It is worse with head movement. Physical examination is unremarkable. Lab work shows no leukocytosis or anemia. Sodium 136. Negative troponin. EKG shows no acute findings. Negative urine. Serum alcohol is 201, her last drink was [address] of the brain and chest x-ray. Negative orthostatics. Patient was offered admission, however she declined stating she would rather go home and come back if symptoms worsen. She has a ride home with her boyfriend. Follow-up with PCP. Report back to ER with any new or worsening symptoms. Discussed return parameters and answered all questions. Patient conveyed verbal understanding and agreed to the plan. I discussed this case in detail with my attending Dr. Hoffmann Undiagnosed new problem with uncertain prognosis? @ -No Drug Therapy requiring intensive monitoring for toxicity (Heparin, Nitro, Insulin, Cardizem)? @ -No Were any procedures done? @ -No Diagnosis/symptom? @ -Dizziness Acute, or Chronic, or Acute on Chronic? @ -Acute Uncomplicated (without systemic symptoms) or Complicated (systemic symptoms)? @ -Uncomplicated Side effects of treatment? @ -No Exacerbation, Progression, or Severe Exacerbation? @ -No Poses a threat to life or bodily function? How? (Chest pain, [place], [place], pneumonia, PE, COPD, DKA, ARF, appy, cholecystitis, CVA, Diverticulitis, Homicidal, Suicidal, threat to staff... and all critical care pts) @ -Low likelihood - Lab Data Result diagrams: 12/27/22 18:45 12/27/22 18:45 Lab Results 12/27/22 12/27/22 12/27/22 Range/Units 18:44 18:45 18:45 WBC 4.9 (3.8-10.6) k/uL RBC 4.08 (3.80-5.40) m/uL Hgb 13.7 D (11.4-16.0) gm/dL Hct 40.8 (34.0-46.0) % MCV 100.0 (80.0-100.0) fL MCH 33.7 (25.0-35.0) pg MCHC 33.7 (31.0-37.0) g/dL RDW 14.1 (11.5-15.5) % Plt Count 221 (150-450) k/uL MPV 7.5 Neutrophils % 45 % Lymphocytes % 37 % Monocytes % 12 % Eosinophils % 2 % Basophils % 1 % Neutrophils # 2.2 (1.3-7.7) k/uL Lymphocytes # 1.8 (1.0-4.8) k/uL Monocytes # 0.6 (0-1.0) k/uL Eosinophils # 0.1 (0-0.7) k/uL Basophils # 0.0 (0-0.2) k/uL PT (9.0-12.0) sec INR (<1.2) Sodium 136 L (137-145) mmol/L Potassium 3.7 (3.5-5.1) mmol/L Chloride 105 (98-107) mmol/L Carbon Dioxide 20 L (22-30) mmol/L Anion Gap 11 mmol/L BUN 4 L (7-17) mg/dL Creatinine 0.34 L (0.52-1.04) mg/dL Est GFR (CKD-EPI)AfAm >90 (>60 ml/min/1.73 sqM) Est GFR (CKD-EPI)NonAf >90 (>60 ml/min/1.73 sqM) Glucose 76 (74-99) mg/dL Plasma Lactic Acid Anthony (0.7-2.0) mmol/L Calcium 9.0 (8.4-10.2) mg/dL Total Bilirubin 0.3 (0.2-1.3) mg/dL AST 39 H (14-36) U/L ALT 14 (4-34) U/L Alkaline Phosphatase 77 (38-126) U/L Troponin I (0.000-0.034) ng/mL Total Protein 6.8 (6.3-8.2) g/dL Albumin 4.1 (3.5-5.0) g/dL Urine Color Colorless Urine Appearance Clear (Clear) Urine pH 5.5 (5.0-8.0) Ur Specific Temple 1.001 (1.001-1.035) Urine Protein Negative (Negative) Urine Glucose (UA) Negative (Negative) Urine Ketones Negative (Negative) Urine Blood Negative (Negative) Urine Nitrite Negative (Negative) Urine Bilirubin Negative (Negative) Urine Urobilinogen <2.0 (<2.0) mg/dL Ur Leukocyte Esterase Negative (Negative) Urine Opiates Screen Not Detected (NotDetected) Ur Oxycodone Screen Not Detected (NotDetected) Urine Methadone Screen Not Detected (NotDetected) Ur Propoxyphene Screen Not Detected (NotDetected) Ur Barbiturates Screen Not Detected (NotDetected) U Tricyclic Antidepress Not Detected (NotDetected) Ur Phencyclidine Scrn Not Detected (NotDetected) Ur Amphetamines Screen Not Detected (NotDetected) U Methamphetamines Scrn Not Detected (NotDetected) U Benzodiazepines Scrn Not Detected (NotDetected) Urine Cocaine Screen Not Detected (NotDetected) U Marijuana (THC) Screen Detected H (NotDetected) Serum Alcohol 201 H* mg/dL 12/27/22 12/27/22 12/27/22 Range/Units 18:45 18:45 18:45 WBC (3.8-10.6) k/uL RBC (3.80-5.40) m/uL Hgb (11.4-16.0) gm/dL Hct (34.0-46.0) % MCV (80.0-100.0) fL MCH (25.0-35.0) pg MCHC (31.0-37.0) g/dL RDW (11.5-15.5) % Plt Count (150-450) k/uL MPV Neutrophils % % Lymphocytes % % Monocytes % % Eosinophils % % Basophils % % Neutrophils # (1.3-7.7) k/uL Lymphocytes # (1.0-4.8) k/uL Monocytes # (0-1.0) k/uL Eosinophils # (0-0.7) k/uL Basophils # (0-0.2) k/uL PT 9.5 (9.0-12.0) sec INR 0.9 (<1.2) Sodium (137-145) mmol/L Potassium (3.5-5.1) mmol/L Chloride (98-107) mmol/L Carbon Dioxide (22-30) mmol/L Anion Gap mmol/L BUN (7-17) mg/dL Creatinine (0.52-1.04) mg/dL Est GFR (CKD-EPI)AfAm (>60 ml/min/1.73 sqM) Est GFR (CKD-EPI)NonAf (>60 ml/min/1.73 sqM) Glucose (74-99) mg/dL Plasma Lactic Acid Anthony 1.9 (0.7-2.0) mmol/L Calcium (8.4-10.2) mg/dL Total Bilirubin (0.2-1.3) mg/dL AST (14-36) U/L ALT (4-34) U/L Alkaline Phosphatase (38-126) U/L Troponin I <0.012 (0.000-0.034) ng/mL Total Protein (6.3-8.2) g/dL Albumin (3.5-5.0) g/dL Urine Color Urine Appearance (Clear) Urine pH (5.0-8.0) Ur Specific Temple (1.001-1.035) Urine Protein (Negative) Urine Glucose (UA) (Negative) Urine Ketones (Negative) Urine Blood (Negative) Urine Nitrite (Negative) Urine Bilirubin (Negative) Urine Urobilinogen (<2.0) mg/dL Ur Leukocyte Esterase (Negative) Urine Opiates Screen (NotDetected) Ur Oxycodone Screen (NotDetected) Urine Methadone Screen (NotDetected) Ur Propoxyphene Screen (NotDetected) Ur Barbiturates Screen (NotDetected) U Tricyclic Antidepress (NotDetected) Ur Phencyclidine Scrn (NotDetected) Ur Amphetamines Screen (NotDetected) U Methamphetamines Scrn (NotDetected) U Benzodiazepines Scrn (NotDetected) Urine Cocaine Screen (NotDetected) U Marijuana (THC) Screen (NotDetected) Serum Alcohol mg/dL Disposition Clinical Impression: Vertigo, Alcohol intoxication Disposition: HOME SELF-CARE Condition: Fair Instructions (If sedation given, give patient instructions): Dizziness (ED) Additional Instructions: Follow-up with PCP. Report back to ER with any new or worsening symptoms. Is patient prescribed a controlled substance at d/c from ED?: No Referrals: Henny Angel MD [Primary Care Provider] - 1-2 days Time of Disposition: 20:53
[2022-12-27 18:52] LABS: Appearance,Urine Clear (Clear); Bilirubin,Urine Negative (Negative); Blood,Urine Negative (Negative); Color,Urine Colorless; Glucose,Urine (UA) Negative (Negative); Ketones,Urine Negative (Negative); Leukocyte Esterase,Urine Negative (Negative); Nitrite,Urine Negative (Negative); PH, Urine 5.5 (5.0-8.0); Protein,Urine Negative (Negative); Specific Gravity,Urine 1.001 (1.001-1.035); Urobilinogen,Urine <2.0 mg/dL (<2.0)
[2022-12-27 19:12] LABS: Amphetamine Screen,Urine Not Detected (NotDetected); Barbiturate Screen,Urine Not Detected (NotDetected); Benzodiazepines Screen,Urine Not Detected (NotDetected); Cocaine Screen,Urine Not Detected (NotDetected); Methadone Screen, Urine Not Detected (NotDetected); Opiate Screen,Urine Not Detected (NotDetected); Oxycodone Screen, Urine Not Detected (NotDetected); Phencyclidine Screen,Urine Not Detected (NotDetected); Tricyclic Antidepressant,Urine Not Detected (NotDetected); Urn Cannabinoid Scrn Detected (NotDetected)
[2022-12-27 19:16] LABS: ALT 14 U/L (4-34); AST 39 U/L (14-36); African American GFR (CKD) >90 (>60 ml/min/1.73 sqM); Albumin 4.1 g/dL (3.5-5.0); Alkaline Phosphatase 77 U/L (38-126); Anion Gap 11 mmol/L; Blood Urea Nitrogen 4 mg/dL (7-17); Carbon Dioxide 20 mmol/L (22-30); Chloride 105 mmol/L (98-107); Glucose 76 mg/dL (74-99); Non-African American GFR(CKD) >90 (>60 ml/min/1.73 sqM); Potassium 3.7 mmol/L (3.5-5.1); Sodium 136 mmol/L (137-145); Total Bilirubin 0.3 mg/dL (0.2-1.3); Total Protein 6.8 g/dL (6.3-8.2)
--- NOTE | 2022-12-27 19:23 | XR ---
EXAMINATION TYPE: XR chest 2V DATE OF EXAM: 12/27/2022 7:09 PM COMPARISON: Chest radiographs from 11/16/2022 TECHNIQUE: XR chest 2V Frontal and lateral views of the chest. CLINICAL INDICATION:Female, 56 years old with history of dizziness; FINDINGS: Lungs/Pleura: There is no evidence of pleural effusion, focal consolidation, or pneumothorax. Pulmonary vascularity: Unremarkable. Heart/mediastinum: Cardiomediastinal silhouette is unremarkable. Musculoskeletal: No acute osseous pathology. IMPRESSION: No acute cardiopulmonary disease/process.
[2022-12-27 19:24] LABS: Alcohol 201 mg/dL
[2022-12-27 19:31] LABS: INR 0.9 (<1.2); Prothrombin Time 9.5 sec (9.0-12.0)
[2022-12-27 19:41] LABS: Basophils % (A) 1 %; Eosinophils # (A) 0.1 k/uL (0-0.7); Eosinophils % (A) 2 %; HCT 40.8 % (34.0-46.0); Lymphocytes # (A) 1.8 k/uL (1.0-4.8); Lymphocytes % (A) 37 %; MCH 33.7 pg (25.0-35.0); MCHC 33.7 g/dL (31.0-37.0); Mean Platelet Volume 7.5; Monocytes # (A) 0.6 k/uL (0-1.0); Monocytes % (A) 12 %; Neutrophils # (A) 2.2 k/uL (1.3-7.7); Neutrophils % (A) 45 %; Platelet Count 221 k/uL (150-450); RBC 4.08 m/uL (3.80-5.40); RDW 14.1 % (11.5-15.5); WBC 4.9 k/uL (3.8-10.6)
--- NOTE | 2022-12-27 19:50 | XR ---
EXAMINATION TYPE: XR KUB DATE OF EXAM: 12/27/2022 7:11 PM INDICATION: Patient age:Female; 56 years old; Reason for study: constipation; COMPARISON: None. TECHNIQUE: One radiographic view of the abdomen was obtained. FINDINGS: Gaseous small bowel dilation up to 3.2 cm. The bowel gas pattern is nonspecific without dil ated loops of small or large bowel. There is no evidence for organomegaly or pneumoperitoneum. The o sseous structures are intact. No abnormal calcifications are present. Fecal material and gas are dem onstrated throughout the colon and rectum. Surgical clips project over the right hip. Mild degeneration changes present bilaterally of the hips. IMPRESSION: Gaseous dilation of small bowel. Otherwise Nonspecific bowel gas pattern without radiographic evidenc e for acute process.
--- NOTE | 2022-12-27 19:52 | CT ---
EXAMINATION TYPE: CT brain wo con CT DLP: 1088.4 mGycm, Automated exposure control for dose reduction was used. DATE OF EXAM: 12/27/2022 7:17 PM COMPARISON: 06/17/2022. CLINICAL INDICATION:Female, 56 years old with history of dizziness, weakness TECHNIQUE: Brain: Axial CT images of the brain were obtained with coronal and sagittal reformats created and rev iewed. Contrast used: None. Oral contrast used: None. FINDINGS: Brain: Extra-axial spaces: No abnormal extra-axial fluid collections. Ventricular system: Dilatation in proportion to cerebral atrophy. Cerebral parenchyma: Cerebral atrophy. No acute intraparenchymal hemorrhage or mass effect. The ladd -white junction is well differentiated. Scattered hypoattenuating areas are seen within the white mat ter. Cerebellum: Unremarkable. Mass effect: No evidence of midline shift. Intracranial vasculature: unremarkable Soft tissues: Normal. Calvarium/osseous structures: No depressed skull fracture. Paranasal sinuses and mastoid air cells: Mild scattered paranasal sinus disease. Visualized orbits: Orbital contents are intact. IMPRESSION: 1. No acute intracranial process. 2. Nonspecific white matter changes, likely secondary to chronic small vessel ischemic disease.
[2022-12-27 19:59] LABS: HGB 13.7 gm/dL (11.4-16.0)
[2022-12-27] MEDS ORDERED: KETOROLAC 15 MG/ML 1 ML VIAL IVP STA ×2 (20:09→20:20)
[2022-12-27] MEDS ORDERED: FAMOTIDINE 20 MG/2 ML VIAL IV STA (20:20)
[2022-12-27 20:31] VITALS: RESP 18
[2022-12-27 20:36] VITALS: BP 165/96; PULSE 75
[2022-12-27 21:28] VITALS: TEMP 97.6
== END 2022-12-27 21:09 | disposition home or self-care (01) ==
LOC: EC 17:51
DX: F10.129 Alcohol abuse with intoxication, unspecified (principal); R42 Dizziness and giddiness; J44.9 Chronic obstructive pulmonary disease, unspecified; I25.2 Old myocardial infarction; F17.200 Nicotine dependence, unspecified, uncomplicated; F12.90 Cannabis use, unspecified, uncomplicated; Z79.899 Other long term (current) drug therapy; Z88.0 Allergy status to penicillin; Z88.6 Allergy status to analgesic agent; Z88.2 Allergy status to sulfonamides
CPT/HCPCS: 36415; 93005; 80053; 83605; 84484; 85025; 85610; 81003; 80306; 71046; 74018; 70450; 99285; 96374; 96375; 96361; G0480; J1885; 80320

== ENCOUNTER 2023-02-09 13:34 | Emergency (ER) | payer OTHER ==
[2023-02-09 13:41] VITALS: RESP 18; TEMP 98.1
[2023-02-09] MEDS ORDERED: SODIUM CHLORIDE 0.9% 1,000 ML IV STA (14:11)
[2023-02-09] MEDS ORDERED: ONDANSETRON 4 MG/2 ML VIAL IVP STA (14:11)
[2023-02-09] MEDS ORDERED: MORPHINE SULFATE 4 MG/ML SYRINGE IVP STA ×2 (14:11→15:48)
--- NOTE | 2023-02-09 14:21 | ED ---
Abdominal Pain HPI - General Chief Complaint: Abdominal Pain Stated Complaint: Abd Pain Time Seen by Provider: 02/09/23 13:46 Source: patient, EMS, RN notes reviewed, old records reviewed Mode of arrival: EMS Limitations: no limitations - History of Present Illness Initial Comments: This 57-year-old female to the emergency department for evaluation today. Patient presents today for evaluation of severe abdominal pain. Positive nausea no vomiting of travel show sick contacts no fevers. Patient has no travel history no sick contacts. Patient symptoms are persistent. MD Complaint: abdominal pain -: days(s) Location: periumbilical, epigastric, suprapubic Radiation: epigastric, suprapubic Migration to: epigastric, suprapubic Severity: moderate Severity scale (1-10): 7 Consistency: constant Improves With: nothing Worsens With: nothing Associated Symptoms: nausea Treatments Prior to Arrival: other (0) - Related Data Home Medications Medication Instructions Recorded Confirmed levETIRAcetam [Keppra] 500 mg PO BID 10/23/20 02/11/23 cloNIDine HCL 0.1 mg PO BID 09/03/21 02/11/23 Fluorometholone 0.1% Ophth Sharmin 1 drops BOTH EYES BID 10/28/22 02/12/23 [Fml] Allergies Allergy/AdvReac Type Severity Reaction Status Date / Time Penicillins Allergy Rash/Hives/ Verified 02/12/23 12:57 Swelling NSAIDS (Non-Steroidal AdvReac Unknown upset Verified 02/12/23 12:57 Anti-Inflamma stomach sertraline HCl [From Zoloft] AdvReac Suicidal/Ag Verified 02/12/23 12:57 ression Review of Systems ROS Statement: Those systems with pertinent positive or pertinent negative responses have been documented in the HPI. ROS Other: All systems not noted in ROS Statement are negative. Past Medical History Past Medical History: COPD, Liver Disease, Myocardial Infarction ([place]), Seizure Disorder Additional Past Medical History / Comment(s): LAST SEIZURE - JANUARY 2021, "broken heart syndrome"., elevated liver enzymes, "dislocated disks", hx cervical cancer, "eating disorder"-not sure what, Last Myocardial Infarction Date:: 2019 History of Any Multi-Drug Resistant Organisms: None Reported Past Surgical History: Section, Heart Catheterization, Tubal Ligation Additional Past Surgical History / Comment(s): ORIF rt ankle/hardware later removed, exploratory lap, PAIN CLINIC PROCEDURE, BILAT CATARACTS REMOVED WITH LENS IMPLANTS, procedure to open a vein in left leg, partial amputation rt hand middle finger, "procedure to remove cervical cancer" Past Anesthesia/Blood Transfusion Reactions: No Reported Reaction Past Psychological History: Anxiety, Bipolar, Depression, PTSD Smoking Status: Current every day smoker Past Alcohol Use History: Abuse, Heavy Past Drug Use History: Marijuana - Past Family History Father Family Medical History: Cancer, Prostate Disorder, Pulmonary Embolus Additional Family Medical History / Comment(s): Lung cancer. Sister(s) Family Medical History: Cancer Brother(s) Family Medical History: Cancer General Exam General appearance: alert, in no apparent distress Head exam: Present: atraumatic, normocephalic, normal inspection Eye exam: Present: normal appearance, PERRL, EOMI. Absent: scleral icterus, conjunctival injection, periorbital swelling ENT exam: Present: normal exam, mucous membranes moist Neck exam: Present: normal inspection. Absent: tenderness, meningismus, lymphad enopathy Respiratory exam: Present: normal lung sounds bilaterally. Absent: respiratory distress, wheezes, rales, rhonchi, stridor Cardiovascular Exam: Present: regular rate, normal rhythm, normal heart sounds. Absent: systolic murmur, diastolic murmur, rubs, gallop, clicks GI/Abdominal exam: Present: soft, tenderness, guarding, normal bowel sounds. Absent: distended, rebound, rigid Extremities exam: Present: normal inspection, full ROM, normal capillary refill. Absent: tenderness, pedal edema, joint swelling, calf tenderness Back exam: Present: normal inspection Neurological exam: Present: alert, oriented X3, CN II-XII intact Psychiatric exam: Present: normal affect, normal mood Skin exam: Present: warm, dry, intact, normal color. Absent: rash Course Vital Signs 02/09/23 02/09/23 13:39 16:45 Temperature 98.1 F 98.1 F Pulse Rate 83 80 Respiratory 18 18 Rate Blood Pressure 167/103 150/98 O2 Sat by Pulse 99 99 Oximetry - Reevaluation(s) Reevaluation #1: 02/09/23 15:22 Medical record is reviewed Reevaluation #2: 02/09/23 15:22 Patient symptoms are improved Reevaluation #3: 02/09/23 15:22 Patient informed results questions answered Reevaluation #4: 02/09/23 15:23 Was pt. sent in by a medical professional or institution (BENI Dill, HOTEL DIRECTOR, urgent care, hospital, or [facility]...) When possible be specific @ -no Did you speak to anyone other than the patient for history (EMS, parent, family, police, friend...)? What history was obtained from this source @ -no Did you review nursing and triage notes (agree or disagree)? Why? @ -agree Are old charts reviewed (outside hosp., previous admission, EMS record, old EKG, old radiological studies, urgent care reports/EKG's, [facility] records)? Report findings @ -yes Differential Diagnosis (chest pain, altered mental status, abdominal pain women, abdominal pain men, vaginal bleeding, weakness, fever, dyspnea, syncope, headache, dizziness, GI bleed, back pain, seizure, CVA, palpatations, mental health, musculoskeletal)? @ -prior EKG interpreted by me (3pts min.). @ -no X-rays interpreted by me (1pt min.). @ -no CT interpreted by me (1pt min.). @ -yes U/S interpreted by me (1pt. min.). @ -no What testing was considered but not performed or refused? (CT, X-rays, U/S, labs)? Why? @ -none What meds were considered but not given or refused? Why? @ -none Did you discuss the management of the patient with other professionals (professionals i.e. BENI Dill, HOTEL DIRECTOR, lab, RT, psych nurse, oncology social work, black top machine operator, teacher, court security officer, case investigator)? Give summary @ -no Was smoking cessation discussed for >3mins.? @ -no Was critical care preformed (if so, how long)? @ -no Were there social determinants of health that impacted care today? How? (Homelessness, low income, unemployed, alcoholism, drug addiction, transportation, low edu. Level, literacy, decrease access to med. care, longterm, rehab)? @ -none Was there de-escalation of care discussed even if they declined (Discuss DNR or withdrawal of care, Hospice)? DNR status @ -no What co-morbidities impacted this encounter? (DM, HTN, Smoking, COPD, CAD, Cancer, CVA, ARF, Chemo, Hep., AIDS, mental health diagnosis, sleep apnea, morbid obesity)? @ -none Was patient admitted / discharged? Hospital course, mention meds given and route, prescriptions, significant lab abnormalities, going to OR and other pertinent info. @ - 57 female to the emergency department for evaluation of abdominal pain, no acute cause for abdominal pain found here in the ER patient can be discharged home follow-up with GI as instructed Discharged Undiagnosed new problem with uncertain prognosis? @ -no Drug Therapy requiring intensive monitoring for toxicity (Heparin, Nitro, Insulin, Cardizem)? @ -no Were any procedures done? @ -no Diagnosis/symptom? @ -Abdominal pain NOS Acute, or Chronic, or Acute on Chronic? @ -Acute Uncomplicated (without systemic symptoms) or Complicated (systemic symptoms)? @ -Complicated Side effects of treatment? @ -no Exacerbation, Progression, or Severe Exacerbation? @ -exacerbation Poses a threat to life or bodily function? How? (Chest pain, USA, ME, pneumonia, PE, COPD, DKA, ARF, appy, cholecystitis, CVA, Diverticulitis, Homicidal, Suicidal, threat to staff... and all critical care pts) @ -no Reevaluation #5: 02/09/23 15:23 Differential Abdominal Pain Women: Appendicitis, Cholecystitis, diverticulosis, ischemic bowel, pancreatitis, hepatitis, UTI, gastroenteritis, AAA, incarcerated hernia, bowel obstruction, constipation, inflammatory bowel, hepatitis, peptic ulcer disease, splenic infarction, perforated viscus, vulvitis, ovarian torsion, PID, kidney stone, placenta abruption, this is not meant to be an all-inclusive list Medical Decision Making - Medical Decision Making 57 female to the emergency department for evaluation of abdominal pain, no acute cause for abdominal pain found here in the ER patient can be discharged home follow-up with GI as instructed - Lab Data Result diagrams: 02/09/23 14:33 02/09/23 14:33 Lab Results 02/09/23 02/09/23 02/09/23 Range/Units 14:33 14:33 14:33 WBC 9.3 (3.8-10.6) k/uL RBC 4.55 (3.80-5.40) m/uL Hgb 15.1 (11.4-16.0) gm/dL Hct 45.5 (34.0-46.0) % MCV 100.0 (80.0-100.0) fL MCH 33.1 (25.0-35.0) pg MCHC 33.1 (31.0-37.0) g/dL RDW 14.2 (11.5-15.5) % Plt Count 250 (150-450) k/uL MPV 7.7 Neutrophils % 58 % Lymphocytes % 28 % Monocytes % 10 % Eosinophils % 1 % Basophils % 0 % Neutrophils # 5.4 (1.3-7.7) k/uL Lymphocytes # 2.6 (1.0-4.8) k/uL Monocytes # 1.0 (0-1.0) k/uL Eosinophils # 0.1 (0-0.7) k/uL Basophils # 0.0 (0-0.2) k/uL Macrocytosis Slight Sodium 138 (137-145) mmol/L Potassium 4.1 (3.5-5.1) mmol/L Chloride 108 H (98-107) mmol/L Carbon Dioxide 18 L (22-30) mmol/L Anion Gap 12 mmol/L BUN 4 L (7-17) mg/dL Creatinine 0.33 L (0.52-1.04) mg/dL Est GFR (CKD-EPI)AfAm >90 (>60 ml/min/1.73 sqM) Est GFR (CKD-EPI)NonAf >90 (>60 ml/min/1.73 sqM) Glucose 89 (74-99) mg/dL Calcium 9.1 (8.4-10.2) mg/dL Phosphorus 4.2 (2.5-4.5) mg/dL Magnesium 1.9 (1.6-2.3) mg/dL Total Bilirubin 0.4 (0.2-1.3) mg/dL AST 29 (14-36) U/L ALT 11 (4-34) U/L Alkaline Phosphatase 85 (38-126) U/L Total Protein 7.2 (6.3-8.2) g/dL Albumin 4.3 (3.5-5.0) g/dL Amylase 59 (30-110) U/L Lipase 126 (23-300) U/L Urine Color Colorless Urine Appearance Clear (Clear) Urine pH 5.5 (5.0-8.0) Ur Specific [place] 1.001 (1.001-1.035) Urine Protein Negative (Negative) Urine Glucose (UA) Negative (Negative) Urine Ketones Negative (Negative) Urine Blood Negative (Negative) Urine Nitrite Negative (Negative) Urine Bilirubin Negative (Negative) Urine Urobilinogen <2.0 (<2.0) mg/dL Ur Leukocyte Esterase Negative (Negative) - Radiology Data Radiology results: report reviewed (CT of the abdomen and pelvis negative for acute disease), image reviewed Disposition Clinical Impression: Intractable back pain, Abdominal pain Disposition: HOME SELF-CARE Condition: Good Instructions (If sedation given, give patient instructions): Abdominal Pain (ED) Is patient prescribed a controlled substance at d/c from ED?: No Referrals: Henny Angel MD [Primary Care Provider] - 1-2 days Time of Disposition: 15:50
[2023-02-09 14:42] LABS: Appearance,Urine Clear (Clear); Basophils % (A) 0 %; Bilirubin,Urine Negative (Negative); Blood,Urine Negative (Negative); Color,Urine Colorless; Eosinophils # (A) 0.1 k/uL (0-0.7); Eosinophils % (A) 1 %; Glucose,Urine (UA) Negative (Negative); HCT 45.5 % (34.0-46.0); HGB 15.1 gm/dL (11.4-16.0); Ketones,Urine Negative (Negative); Leukocyte Esterase,Urine Negative (Negative); Lymphocytes # (A) 2.6 k/uL (1.0-4.8); Lymphocytes % (A) 28 %; MCH 33.1 pg (25.0-35.0); MCHC 33.1 g/dL (31.0-37.0); Macrocytosis Slight; Mean Platelet Volume 7.7; Monocytes % (A) 10 %; Neutrophils # (A) 5.4 k/uL (1.3-7.7); Neutrophils % (A) 58 %; Nitrite,Urine Negative (Negative); PH, Urine 5.5 (5.0-8.0); Platelet Count 250 k/uL (150-450); Protein,Urine Negative (Negative); RBC 4.55 m/uL (3.80-5.40); RDW 14.2 % (11.5-15.5); Specific Gravity,Urine 1.001 (1.001-1.035); Urobilinogen,Urine <2.0 mg/dL (<2.0); WBC 9.3 k/uL (3.8-10.6)
[2023-02-09 14:57] LABS: ALT 11 U/L (4-34); AST 29 U/L (14-36); African American GFR (CKD) >90 (>60 ml/min/1.73 sqM); Albumin 4.3 g/dL (3.5-5.0); Alkaline Phosphatase 85 U/L (38-126); Amylase 59 U/L (30-110); Anion Gap 12 mmol/L; Blood Urea Nitrogen 4 mg/dL (7-17); Calcium 9.1 mg/dL (8.4-10.2); Carbon Dioxide 18 mmol/L (22-30); Chloride 108 mmol/L (98-107); Glucose 89 mg/dL (74-99); Lipase 126 U/L (23-300); Magnesium 1.9 mg/dL (1.6-2.3); Non-African American GFR(CKD) >90 (>60 ml/min/1.73 sqM); Phosphorus 4.2 mg/dL (2.5-4.5); Sodium 138 mmol/L (137-145); Total Bilirubin 0.4 mg/dL (0.2-1.3); Total Protein 7.2 g/dL (6.3-8.2)
[2023-02-09 15:19] LABS: Potassium 4.1 mmol/L (3.5-5.1)
--- NOTE | 2023-02-09 15:41 | CT ---
EXAMINATION TYPE: CT abdomen pelvis wo con CT DLP: 313.4 mGycm, Automated exposure control for dose reduction was used. DATE OF EXAM: 02/09/2023 3:19 PM COMPARISON: CT abdomen pelvis most recent from 03/28/2022 . CLINICAL INDICATION:Female, 57 years old with history of abdominal pain; abdominal pain, possible ulc er TECHNIQUE: Standard CT of the abdomen and pelvis without IV or oral contrast. Lack of IV or oral co ntrast limits evaluation of solid and hollow organ viscera. Coronal and sagittal reformats were perfo rmed. FINDINGS: LOWER CHEST: Unremarkable ABDOMEN LIVER: Unremarkable noncontrast appearance GALLBLADDER AND BILE DUCTS: Unremarkable noncontrast appearance PANCREAS: Unremarkable noncontrast appearance SPLEEN: Unremarkable noncontrast appearance ADRENAL GLANDS: Unremarkable noncontrast appearance. KIDNEYS AND URETERS: No evidence of hydronephrosis or renal calculus. The ureters are unremarkable. PELVIS BLADDER: Incompletely distended but grossly unremarkable. REPRODUCTIVE: Unremarkable noncontrast appearance ABDOMEN & PELVIS STOMACH AND BOWEL: Stomach is unremarkable. Small periampullary duodenal diverticulum. No evidence of bowel obstruction. PERITONEUM: No evidence of pneumoperitoneum or free fluid. VASCULATURE: Mild atherosclerotic calcifications are present throughout the abdominal aorta and its b ranches. No evidence of aortic aneurysm. Few pelvic phleboliths. MUSCULOSKELETAL: No acute osseous abnormalities LYMPH NODES: No gross evidence for lymphadenopathy. SOFT TISSUE/ABDOMINAL WALL: Surgical clips in the right inguinal region. IMPRESSION: No acute abdominal/pelvic process within limitations of a noncontrast exam.
[2023-02-09 16:47] VITALS: BP 150/98; PULSE 80
== END 2023-02-09 16:47 | disposition home or self-care (01) ==
LOC: EC 13:34
DX: R10.13 Epigastric pain (principal); M54.9 Dorsalgia, unspecified; J44.9 Chronic obstructive pulmonary disease, unspecified; I25.2 Old myocardial infarction; F41.9 Anxiety disorder, unspecified; F32.A Depression, unspecified; F17.200 Nicotine dependence, unspecified, uncomplicated; F12.90 Cannabis use, unspecified, uncomplicated; Z88.0 Allergy status to penicillin; Z88.6 Allergy status to analgesic agent; Z88.8 Allergy status to other drugs, medicaments and biological substances; Z79.899 Other long term (current) drug therapy
CPT/HCPCS: 36415; 80053; 82150; 83690; 83735; 84100; 85025; 81003; 74176; 99285; 96374; 96376; 96375; 96361; J2270; J2405

== ENCOUNTER 2023-02-12 12:32 | Day surgery (SDC) | payer OTHER ==
[2023-02-11 11:06] VITALS: BMI 18.5
[~2023-02-12 12:32] MED LIST changes: +LACTATED RINGERS 1,000 ML IV SCH; +LIDOCAINE 1% (10MG/ML) FOR IV START INTRADERMA PRN; +ONDANSETRON 4 MG/2 ML VIAL IVP PRN; -THIAMINE 100 MG TAB PO SCH
[2023-02-12 13:04] VITALS: TEMP 97.1
[2023-02-12] MEDS ORDERED: PROPOFOL 10 MG/ML 20 ML VIAL IV ONE (14:47)
--- NOTE | 2023-02-12 15:03 | P.PCN ---
Date of Procedure: 02/12/23 Procedure(s) Performed: BRIEF HISTORY: Patient is a 57-year-old pleasant white female scheduled for an elective colonoscopy as a part of screening for colon cancer/progressive weight loss PROCEDURE PERFORMED: Colonoscopy. PREOPERATIVE DIAGNOSIS: Screening for colon cancer/progressive weight loss. IV sedation per Anesthesia. PROCEDURE: After informed consent was obtained, the patient, was brought into the endoscopy unit. IV sedation was administered by Anesthesia under continuous monitoring. Digital rectal examination was normal. Initially the Olympus CF-160 flexible video colonoscope was then inserted in the rectum, gradually advanced into the cecum without any difficulty. Careful examination was performed as the scope was gradually being withdrawn. Ileocecal valve and the appendiceal orifice were visualized and appeared normal. Prep was excellent. Mucosa of the cecum, ascending colon, transverse colon, descending colon, sigmoid colon, and rectum appeared normal. Retroflexion was performed in the rectum and no lesions were seen. The patient tolerated the procedure well. IMPRESSION: Normal-appearing colon from rectum to cecum with no evidence of colorectal neoplasia. RECOMMENDATIONS: Findings of this examination were discussed with the patient as well as her family.. She was advised to have a repeat screening colonoscopy in 10 years.
[2023-02-12 15:49] VITALS: BP 138/88; PULSE 65; RESP 20
== END 2023-02-12 15:57 ==
LOC: ORWHC2ENDO 12:32
PROVIDERS: ATTEND Internal Medicine Gastroenterology
DX: Z12.11 Encounter for screening for malignant neoplasm of colon (principal); R63.4 Abnormal weight loss; Z79.1 Long term (current) use of non-steroidal anti-inflammatories (NSAID); Z88.0 Allergy status to penicillin; G40.89 Other seizures; F17.210 Nicotine dependence, cigarettes, uncomplicated; Z79.899 Other long term (current) drug therapy
CPT/HCPCS: 45378; J2704; G0121

== ENCOUNTER 2023-02-27 10:29 | Emergency (ER) | payer OTHER ==
[2023-02-27 10:48] VITALS: BP 146/92; PULSE 82; RESP 20; TEMP 98.2
[2023-02-27] MEDS ORDERED: HYDROcodone/APAP 7.5-325MG 1 EACH TAB PO ONE (11:14)
[2023-02-27] MEDS ORDERED: CIPROFLOXACIN-DEXAMETH 0.3-0.1% DROPS 7.5 ML BTL BOTH EARS STA (11:14)
[2023-02-27] MEDS ORDERED: LIDOCAINE 5% PATCH TOPICAL SCH (11:15)
--- NOTE | 2023-02-27 11:57 | XR ---
EXAMINATION TYPE: XR ribs RT w pa chest xray DATE OF EXAM: 02/27/2023 COMPARISON: NONE HISTORY: Pain TECHNIQUE: Single view of the chest 2 views of the ribs are submitted. FINDINGS: The lungs are clear. No Evidence for pneumothorax. No evidence for focal contusion. Medi astinal structures are midline. Evaluation of the ribs fails to demonstrate evidence for displaced r ib fracture or secondary sign of rib fracture. IMPRESSION: Negative study
--- NOTE | 2023-02-27 11:57 | XR ---
EXAMINATION TYPE: XR thoracic spine complete DATE OF EXAM: 02/27/2023 CLINICAL HISTORY: pain TECHNIQUE: Frontal, lateral, and swimmer's view of thoracic spine are obtained. COMPARISON: None. FINDINGS: Thoracic spine show satisfactory alignment without evidence of acute fracture or dislocatio n. Vertebral body heights are preserved. Mild degenerative disc space narrowing. Visualized ribs a re unremarkable. IMPRESSION: No acute fracture or dislocation is seen in the thoracic spine. ICD 10 NO FRACTURE, INIT IAL EVALUATION
--- NOTE | 2023-02-27 12:13 | ED ---
ENT HPI - General Chief complaint: ENT Stated complaint: Rib pain-Ear pain Time Seen by Provider: 02/27/23 11:00 Source: patient, RN notes reviewed Mode of arrival: ambulatory Limitations: no limitations - History of Present Illness Initial comments: This is a 57-year-old female who presents to the emergency department for ear pain and right-sided rib pain. States that over the last 2 days she's developed increasing pain to both ears, however the pain is much worse on the left. Denies any difficulty hearing. She's not had any drainage from the ears. Also denies any fevers or upper respiratory symptoms. Additionally, states that she had a seizure a few days ago and fell, landing on her right side. Currently having pain over the right rib cage. She does have a history of seizures and is on medication for this. Denies hitting her head or sustaining any other injuries. She is taking Tylenol with no relief in symptoms. Denies any fevers, chills, sore throat, cough, dyspnea, palpitations, abdominal pain, nausea, vomiting, diarrhea, or headaches. - Related Data Home Medications Medication Instructions Recorded Confirmed levETIRAcetam [Keppra] 500 mg PO BID 10/23/20 02/11/23 cloNIDine HCL 0.1 mg PO BID 09/03/21 02/11/23 Fluorometholone 0.1% Ophth Sharmin 1 drops BOTH EYES BID 10/28/22 02/12/23 [Fml] Previous Rx's Medication Instructions Recorded Cefdinir 300 mg PO Q12HR 7 Days #14 cap 02/27/23 HYDROcodone/APAP 5-325MG [G[place] 1 tab PO Q6HR PRN 3 Days #12 tab 02/27/23 5-325] Allergies Allergy/AdvReac Type Severity Reaction Status Date / Time Penicillins Allergy Rash/Hives/ Verified 02/12/23 12:57 Swelling NSAIDS (Non-Steroidal AdvReac Unknown upset Verified 02/12/23 12:57 Anti-Inflamma stomach sertraline HCl [From Zoloft] AdvReac Suicidal/Ag Verified 02/12/23 12:57 ression Review of Systems ROS Statement: Those systems with pertinent positive or pertinent negative responses have been documented in the HPI. ROS Other: All systems not noted in ROS Statement are negative. Past Medical History Past Medical History: COPD, Liver Disease, Myocardial Infarction ([place]), Seizure Disorder, Vascular Disorder Additional Past Medical History / Comment(s): constpation, last bowel movement 4 days ago, feeling bloated,feeling of fullness, and abdominal pain, feels hungry then over eats then vomits to feel better, LAST SEIZURE - JANUARY 2021, "broken heart syndrome"., elevated liver enzymes, "dislocated disks", hx cervical cancer Last Myocardial Infarction Date:: 2019 History of Any Multi-Drug Resistant Organisms: None Reported Past Surgical History: Section, Heart Catheterization, Tubal Ligation Additional Past Surgical History / Comment(s): ORIF rt ankle/hardware later removed, exploratory lap, PAIN CLINIC PROCEDURE, BILAT CATARACTS REMOVED WITH LENS IMPLANTS, procedure to open a vein in left leg-couldn't confirm which leg, partial amputation rt hand middle finger, "procedure to remove cervical cancer" Past Anesthesia/Blood Transfusion Reactions: No Reported Reaction Past Psychological History: Anxiety, Bipolar, Depression, PTSD Smoking Status: Current every day smoker Past Alcohol Use History: Abuse, Heavy Past Drug Use History: Marijuana - Past Family History Father Family Medical History: Cancer, Prostate Disorder, Pulmonary Embolus Sister(s) Family Medical History: Cancer Brother(s) Family Medical History: Cancer Additional Family Medical History / Comment(s): colon and bladder General Exam Limitations: no limitations General appearance: alert, in no apparent distress Head exam: Present: atraumatic, normocephalic, normal inspection ENT exam: Present: other (Erythema to the left TM and canal. Tenderness to palpation of the tragus. Minor erythema in the right canal without right TM erythema.) Respiratory exam: Present: normal lung sounds bilaterally. Absent: respiratory distress, wheezes, rales, rhonchi, stridor Cardiovascular Exam: Present: regular rate, normal rhythm, normal heart sounds. Absent: systolic murmur, diastolic murmur, rubs, gallop, clicks GI/Abdominal exam: Present: other (Ecchymosis and tenderness over the right rib cage) Neurological exam: Present: alert, oriented X3, CN II-XII intact Psychiatric exam: Present: normal affect, normal mood Course Vital Signs 02/27/23 10:46 Temperature 98.2 F Pulse Rate 82 Respiratory 20 Rate Blood Pressure 146/92 O2 Sat by Pulse 94 L Oximetry Medical Decision Making - Medical Decision Making This is a 57-year-old female who presents to the emergency department for ear pain and pain over the right rib cage. Was pt. sent in by a medical professional or institution? @ -No Did you speak to anyone other than the patient for history? @ -No Did you review nursing and triage notes? @ -Yes, and I agree, it is accurate with regards to the patient's symptoms. Were old charts reviewed? @ -No Differential Diagnosis? @ -Differential Ear Pain: Otitis media, otitis externa, eustachian tube dysfunction, allergic rhinitis, barotrauma, bullous myringitis, this is not meant to be an all-inclusive list. EKG interpreted by me (3pts min.)? @ -Not obtained X-rays interpreted by me (1pt min.)? @ -X-ray of the right rib cage, chest, and thoracic spine obtained. My interpretation identifies no acute fractures. CT interpreted by me (1pt min.)? @ -Not obtained U/S interpreted by me (1pt. min.)? @ -Not obtained What testing was considered but not performed? (CT, X-rays, U/S, labs)? Why? @ -None What meds were considered but not given? Why? @ -None Did you discuss the management of the patient with other professionals? @ -No Did you reconcile home meds? @ -No Was smoking cessation discussed for >3mins.? @ -No Was critical care preformed (if so, how long)? @ -No Were there social determinants of health that impacted care today? How? (Homelessness, low income, unemployed, alcoholism, drug addiction, transportation, low edu. Level, literacy, decrease access to med. care, custodial, rehab)? @ -No Was there de-escalation of care discussed even if they declined? (Discuss DNR or withdrawal of care, Hospice)? @ -No What co-morbidities impacted this encounter? (DM, HTN, Smoking, COPD, CAD, Cancer, CVA, Hep., AIDS, mental health diagnosis, sleep apnea, morbid obesity)? @ -Seizure disorder Was patient admitted / discharged? @ -Discharged. X-ray of the right rib cage, chest, and thoracic spine obtained revealing no acute process. Physical exam does reveal a bilateral otitis externa and left otitis media. Her pain was controlled in the emergency department and she was given a bottle of Ciprodex drops. Advised that she likely sustained a contusion over the right rib cage, however a hairline fracture cannot necessarily be ruled out. She is advised that she needs to take several deep breaths an hour to reduce the risk of developing a secondary pneumonia. Given that she cannot take NSAIDs, I gave her a prescription for a 3 day supply of [place]. She is advised to take this sparingly and to otherwise take Tylenol. Also discussed [id number] lidocaine cream/patches. Pre scription for Cefdinir provided with dosing instructions reviewed for the otitis media. She is also advised to continue using the Ciprodex drops provided as 4 drops to both ears twice daily for 7 days. Otherwise advised follow-up with her primary care provider. Undiagnosed new problem with uncertain prognosis? @ -None Drug Therapy requiring intensive monitoring for toxicity (Heparin, Nitro, Insulin, Cardizem)? @ -None Were any procedures done? @ -None Diagnosis/symptom? @ -Otitis media, otitis externa, right rib cage contusion Acute, or Chronic, or Acute on Chronic? @ -Acute Uncomplicated (without systemic symptoms) or Complicated (systemic symptoms)? @ -Uncomplicated Side effects of treatment? @ -None Exacerbation, Progression, or Severe Exacerbation] @ -Not applicable Poses a threat to life or bodily function? @ -No Return precautions reviewed in depth, the patient is instructed to return to the emergency department with any new, worsening, or concerning symptoms. Patient verbalized understanding. This case was discussed in detail with the attending ED physician, Dr. Ibrahim. Presentation, findings, and treatment plan discussed in detail as well. - Radiology Data Radiology results: report reviewed, image reviewed Disposition Clinical Impression: Otitis externa, Otitis media, Contusion of rib on right side Disposition: HOME SELF-CARE Instructions (If sedation given, give patient instructions): Swimmer's Ear (ED), Ear Infection (ED), Rib Contusion (ED) Additional Instructions: Return to the emergency department with any new, worsening, or concerning symptoms. Take the antibiotic as prescribed for 7 days. Use the eardrops provided as 4 drops to both ears twice daily for 7 days. Take the [place] sparingly when your pain is the most severe. You can also use over the counter lidocaine cream or patches. Follow up with your primary care provider in 1-2 days. Prescriptions: Cefdinir 300 mg PO Q12HR 7 Days #14 cap HYDROcodone/APAP 5-325MG [[place] 5-325] 1 tab PO Q6HR PRN 3 Days #12 tab PRN Reason: Pain Is patient prescribed a controlled substance at d/c from ED?: Yes When asked, does pt state using other controlled substances?: No If prescribed controlled substance>3 days was MAPS reviewed?: Prescribed <3 Days Referrals: Henny Angel MD [Primary Care Provider] - 1-2 days
== END 2023-02-27 12:21 | disposition home or self-care (01) ==
LOC: EC 10:29
DX: S20.211A Contusion of right front wall of thorax, initial encounter (principal); H66.92 Otitis media, unspecified, left ear; H60.92 Unspecified otitis externa, left ear; J44.9 Chronic obstructive pulmonary disease, unspecified; I25.2 Old myocardial infarction; F41.9 Anxiety disorder, unspecified; F31.9 Bipolar disorder, unspecified; F17.200 Nicotine dependence, unspecified, uncomplicated; F12.90 Cannabis use, unspecified, uncomplicated; Z88.0 Allergy status to penicillin; Z88.6 Allergy status to analgesic agent; Z79.899 Other long term (current) drug therapy; W18.30XA Fall on same level, unspecified, initial encounter
CPT/HCPCS: 72072; 99283

== ENCOUNTER 2023-05-18 21:38 | Observation (INO) | payer OTHER ==
--- NOTE | 2023-05-18 22:03 | XR ---
EXAMINATION TYPE: XR chest 1V portable DATE OF EXAM: 05/18/2023 9:57 PM CLINICAL INDICATION:Female, 57 years old with history of chest pain; COMPARISON: Chest radiographs from 02/27/2023. TECHNIQUE: XR chest 1V portable Frontal view of the chest. FINDINGS: Lungs/Pleura: There is no evidence of pleural effusion, focal consolidation, or pneumothorax. Pulmonary vascularity: Unremarkable. Heart/mediastinum: Cardiomediastinal silhouette is unremarkable. Musculoskeletal: No acute osseous pathology. IMPRESSION: No acute cardiopulmonary disease/process.
[2023-05-18] MEDS ORDERED: MORPHINE SULFATE 4 MG/ML SYRINGE IVP STA (22:05)
[2023-05-18] MEDS ORDERED: SODIUM CHLORIDE 0.9% 1,000 ML IV STA (22:05)
--- NOTE | 2023-05-18 22:06 | ED ---
Weakness HPI - General Chief complaint: Chest Pain Stated complaint: Chest pain Time Seen by Provider: 05/18/23 21:41 Source: patient, RN notes reviewed, old records reviewed Mode of arrival: EMS Limitations: no limitations - History of Present Illness Initial comments: This is a 57-year-old female to the emergency department for evaluation of chest pain chest pain back pain shortness of breath weakness nausea or vomiting. Increasing weakness. states she has seizure a few days ago and she states his symptoms have worsened she had a seizure. Patient has history of seizures. Currently having chest pain and generalized body aches. MD Complaint: generalized weakness -: days(s) Location: generalized Severity: severe Severity scale (1-10): 9 Consistency: constant Improves with: none Worsens with: none Context: recent illness, history of similar Associated Symptoms: chest pain, loss of appetite, nausea/vomiting, shortness of breath - Related Data Home Medications Medication Instructions Recorded Confirmed levETIRAcetam [Keppra] 500 mg PO BID 10/23/20 05/19/23 cloNIDine HCL 0.1 mg PO BID 09/03/21 05/19/23 Previous Rx's Medication Instructions Recorded Pantoprazole [Protonix] 40 mg PO DAILY #30 tab 05/20/23 chlordiazePOXIDE HCl [Librium] 20 mg PO TID #6 cap 05/20/23 HYDROcodone/APAP 5-325MG [[place] 1 tab PO Q4HR PRN 3 Days #18 tab 05/23/23 5-325] Allergies Allergy/AdvReac Type Severity Reaction Status Date / Time Penicillins Allergy Rash/Hives/Swelling Verified 05/23/23 02:18 all over body NSAIDS (Non-Steroidal AdvReac Unknown upset Verified 05/23/23 02:18 Anti-Inflamma stomach sertraline HCl [From Zoloft] AdvReac Suicidal/Ag Verified 05/23/23 02:18 ression Review of Systems ROS Statement: Those systems with pertinent positive or pertinent negative responses have been documented in the HPI. ROS Other: All systems not noted in ROS Statement are negative. Past Medical History Past Medical History: COPD, Liver Disease, Myocardial Infarction ([place]), Seizure Disorder, Vascular Disorder Additional Past Medical History / Comment(s): constpation, last bowel movement 4 days ago, feeling bloated,feeling of fullness, and abdominal pain, feels hungry then over eats then vomits to feel better, LAST SEIZURE - JANUARY 2021, "broken heart syndrome"., elevated liver enzymes, "dislocated disks", hx cervical cancer Last Myocardial Infarction Date:: 2019 History of Any Multi-Drug Resistant Organisms: None Reported Past Surgical History: Section, Heart Catheterization, Tubal Ligation Additional Past Surgical History / Comment(s): ORIF rt ankle/hardware later removed, exploratory lap, PAIN CLINIC PROCEDURE, BILAT CATARACTS REMOVED WITH LENS IMPLANTS, procedure to open a vein in left leg-couldn't confirm which leg, partial amputation rt hand middle finger, "procedure to remove cervical cancer" Past Anesthesia/Blood Transfusion Reactions: No Reported Reaction Past Psychological History: Anxiety, Bipolar, Depression, PTSD Smoking Status: Current every day smoker Past Alcohol Use History: Abuse, Heavy Past Drug Use History: Marijuana - Past Family History Father Family Medical History: Cancer, Prostate Disorder, Pulmonary Embolus Sister(s) Family Medical History: Cancer Brother(s) Family Medical History: Cancer Additional Family Medical History / Comment(s): colon and bladder General Exam Limitations: no limitations General appearance: alert, in no apparent distress, anxious Head exam: Present: atraumatic, normocephalic, normal inspection Eye exam: Present: normal appearance, PERRL, EOMI. Absent: scleral icterus, conjunctival injection, periorbital swelling ENT exam: Present: normal exam, mucous membranes moist Neck exam: Present: normal inspection. Absent: tenderness, meningismus, lymphadenopathy Respiratory exam: Present: normal lung sounds bilaterally. Absent: respiratory distress, wheezes, rales, rhonchi, stridor Cardiovascular Exam: Present: regular rate, normal rhythm, normal heart sounds. Absent: systolic murmur, diastolic murmur, rubs, gallop, clicks GI/Abdominal exam: Present: soft, normal bowel sounds. Absent: distended, tenderness, guarding, rebound, rigid Extremities exam: Present: normal inspection, full ROM, normal capillary refill. Absent: tenderness, pedal edema, joint swelling, calf tenderness Back exam: Present: normal inspection Neurological exam: Present: alert, oriented X3, CN II-XII intact Psychiatric exam: Present: normal affect, normal mood Skin exam: Present: warm, dry, intact, normal color. Absent: rash Course Vital Signs 1205/18/23 05/18/23 21:39 22:30 23:30 Temperature 97.8 F 98.2 F Pulse Rate 94 64 62 Respiratory 18 16 18 Rate Blood Pressure 128/91 115/85 122/79 O2 Sat by Pulse 98 94 L 95 Oximetry 05/19/23 05/19/23 05/19/23 00:30 01:09 01:18 Temperature 97.9 F Pulse Rate 71 73 77 Respiratory 22 Rate Blood Pressure 136/96 O2 Sat by Pulse 94 L Oximetry 05/19/23 05/19/23 05/19/23 01:41 03:00 03:58 Temperature Pulse Rate 68 68 67 Respiratory 18 18 18 Rate Blood Pressure 138/91 115/64 127/75 O2 Sat by Pulse 95 95 95 Oximetry 05/19/23 05/19/23 05/19/23 05:00 06:13 08:00 Temperature 98.2 F 97.7 F Pulse Rate 67 78 115 H Respiratory 18 18 20 Rate Blood Pressure 129/80 129/80 156/86 O2 Sat by Pulse 96 97 96 Oximetry 05/19/23 05/19/23 05/19/23 08:15 10:58 11:29 Temperature Pulse Rate 86 84 114 H Respiratory 18 Rate Blood Pressure 172/112 O2 Sat by Pulse 96 98 Oximetry 05/19/23 13:00 Temperature Pulse Rate 85 Respiratory 18 Rate Blood Pressure 147/93 O2 Sat by Pulse Oximetry - Reevaluation(s) Reevaluation #1: 05/18/23 23:00 Medical records reviewed Reevaluation #2: 05/19/23 01:55 Patient has no improvement in symptoms here in the ER Reevaluation #3: 05/19/23 01:55 Patient informed results and questions answered Reevaluation #4: 05/18/23 22:07 Was pt. sent in by a medical professional or institution (, PA, RUBBER GOODS REPAIRER, urgent care, hospital, or half-way...) When possible be specific @ -no Did you speak to anyone other than the patient for history (EMS, parent, family, police, friend...)? What history was obtained from this source @ -no Did you review nursing and triage notes (agree or disagree)? Why? @ -agree Are old charts reviewed (outside hosp., previous admission, EMS record, old EKG, old radiological studies, urgent care reports/EKG's, half-way records)? Report findings @ -yes Differential Diagnosis (chest pain, altered mental status, abdominal pain women, abdominal pain men, vaginal bleeding, weakness, fever, dyspnea, syncope, headache, dizziness, GI bleed, back pain, seizure, CVA, palpatations, mental health, musculoskeletal)? @ -prior EKG interpreted by me (3pts min.). @ -yes X-rays interpreted by me (1pt min.). @ -yes CT interpreted by me (1pt min.). @ -no U/S interpreted by me (1pt. min.). @ -no What testing was considered but not performed or refused? (CT, X-rays, U/S, labs)? Why? @ -none What meds were considered but not given or refused? Why? @ -none Did you discuss the management of the patient with other professionals (professionals i.e. , PA, RU[employer]ER GOODS REPAIRER, lab, RT, psych nurse, nephrology social worker, kitchenwhere maker, teacher, disbursing officer, immigration case worker)? Give summary @ -no Was smoking cessation discussed for >3mins.? @ -no Was critical care preformed (if so, how long)? @ -no Were there social determinants of health that impacted care today? How? (Homelessness, low income, unemployed, alcoholism, drug addiction, transportation, low edu. Level, literacy, decrease access to med. care, detention, rehab)? @ -none Was there de-escalation of care discussed even if they declined (Discuss DNR or withdrawal of care, Hospice)? DNR status @ -no What co-morbidities impacted this encounter? (DM, HTN, Smoking, COPD, CAD, Cancer, CVA, ARF, Chemo, Hep., AIDS, mental health diagnosis, sleep apnea, morbid obesity)? @ -none Was patient admitted / discharged? Hospital course, mention meds given and route, prescriptions, significant lab abnormalities, going to OR and other pertinent info. @ - 57 female to the emergency department for evaluation severe and significant weakness back pain chest pain not feeling well nausea vomiting. Patient will be admitted for chest pain back pain and weakness Admitted Undiagnosed new problem with uncertain prognosis? @ -no Drug Therapy requiring intensive monitoring for toxicity (Heparin, Nitro, Insulin, Cardizem)? @ -no Were any procedures done? @ -no Diagnosis/symptom? @ -Chest pain, back pain, weakness Acute, or Chronic, or Acute on Chronic? @ -Acute Uncomplicated (without systemic symptoms) or Complicated (systemic symptoms)? @ -Complicated Side effects of treatment? @ -no Exacerbation, Progression, or Severe Exacerbation? @ -exacerbation Poses a threat to life or bodily function? How? (Chest pain, [place], [place], pneumonia, PE, COPD, DKA, ARF, appy, cholecystitis, CVA, Diverticulitis, Homicidal, Suicidal, threat to staff... and all critical care pts) @ -yes with persistent chest pain possible ACS Reevaluation #5: 05/18/23 22:07 Differential Chest Pain: Stable Angina, Unstable Angina, STEMI, NSTEMI Aortic Dissection, Pneumothorax, Musculoskeletal, Esophageal Spasm GERD, Cholecystitis, Pancreatitis, Zoster, this is not meant to be an all-inclusive list. Differential Weakness: Hypoglycemia, shock, sepsis, hyponatremia, anemia, infection, [place], ETOH, adverse medicine reaction, overdose, stroke, this is not meant to be an all-inclusive list. - Consultations Consultation #1: Spoke with [facility] were agrees to admit the patient EKG Findings - EKG Comments: EKG Findings:: EKG is sinus 70. The ER 159 QRS 85 QTc 416 Medical Decision Making - Medical Decision Making 57 female to the emergency department for evaluation severe and significant weakness back pain chest pain not feeling well nausea vomiting. Patient will be admitted for chest pain back pain and weakness - Lab Data Result diagrams: 05/20/23 06:05 05/20/23 06:05 Lab Results 05/18/23 05/18/23 05/18/23 Range/Units 21:43 21:43 21:43 WBC 5.6 (3.8-10.6) k/uL RBC 4.33 (3.80-5.40) m/uL Hgb 15.2 (11.4-16.0) gm/dL Hct 43.4 (34.0-46.0) % MCV 100.3 H (80.0-100.0) fL MCH 35.1 H (25.0-35.0) pg MCHC 35.0 (31.0-37.0) g/dL RDW 13.4 (11.5-15.5) % Plt Count 171 (150-450) k/uL MPV 7.3 Neutrophils % 31 % Lymphocytes % 52 % Monocytes % 11 % Eosinophils % 1 % Basophils % 1 % Neutrophils # 1.7 (1.3-7.7) k/uL Lymphocytes # 2.9 (1.0-4.8) k/uL Monocytes # 0.6 (0-1.0) k/uL Eosinophils # 0.1 (0-0.7) k/uL Basophils # 0.1 (0-0.2) k/uL PT 10.3 (10.0-12.5) sec INR 0.9 (<1.2) APTT 27.2 (22.0-30.0) sec D-Dimer 0.51 (<0.60) mg/L FEU Sodium 137 (137-145) mmol/L Potassium 4.8 (3.5-5.1) mmol/L Chloride 103 (98-107) mmol/L Carbon Dioxide 19 L (22-30) mmol/L Anion Gap 15 mmol/L BUN 2 L (7-17) mg/dL Creatinine 0.31 L (0.52-1.04) mg/dL Est GFR (CKD-EPI)AfAm >90 (>60 ml/min/1.73 sqM) Est GFR (CKD-EPI)NonAf >90 (>60 ml/min/1.73 sqM) Glucose 88 (74-99) mg/dL Calcium 9.0 (8.4-10.2) mg/dL Magnesium 1.8 (1.6-2.3) mg/dL Total Bilirubin 0.7 (0.2-1.3) mg/dL AST 85 H (14-36) U/L ALT 34 (4-34) U/L Alkaline Phosphatase 76 (38-126) U/L Troponin I (0.000-0.034) ng/mL NT-Pro-B Natriuret Pep 28 pg/mL Total Protein 7.4 (6.3-8.2) g/dL Albumin 4.8 (3.5-5.0) g/dL Lipase 167 (23-300) U/L 05/18/23 Range/Units 21:43 WBC (3.8-10.6) k/uL RBC (3.80-5.40) m/uL Hgb (11.4-16.0) gm/dL Hct (34.0-46.0) % MCV (80.0-100.0) fL MCH (25.0-35.0) pg MCHC (31.0-37.0) g/dL RDW (11.5-15.5) % Plt Count (150-450) k/uL MPV Neutrophils % % Lymphocytes % % Monocytes % % Eosinophils % % Basophils % % Neutrophils # (1.3-7.7) k/uL Lymphocytes # (1.0-4.8) k/uL Monocytes # (0-1.0) k/uL Eosinophils # (0-0.7) k/uL Basophils # (0-0.2) k/uL PT (10.0-12.5) sec INR (<1.2) APTT (22.0-30.0) sec D-Dimer (<0.60) mg/L FEU Sodium (137-145) mmol/L Potassium (3.5-5.1) mmol/L Chloride (98-107) mmol/L Carbon Dioxide (22-30) mmol/L Anion Gap mmol/L BUN (7-17) mg/dL Creatinine (0.52-1.04) mg/dL Est GFR (CKD-EPI)AfAm (>60 ml/min/1.73 sqM) Est GFR (CKD-EPI)NonAf (>60 ml/min/1.73 sqM) Glucose (74-99) mg/dL Calcium (8.4-10.2) mg/dL Magnesium (1.6-2.3) mg/dL Total Bilirubin (0.2-1.3) mg/dL AST (14-36) U/L ALT (4-34) U/L Alkaline Phosphatase (38-126) U/L Troponin I 0.021 (0.000-0.034) ng/mL NT-Pro-B Natriuret Pep pg/mL Total Protein (6.3-8.2) g/dL Albumin (3.5-5.0) g/dL Lipase (23-300) U/L - Radiology Data Radiology results: report reviewed (Chest x-rays negative for acute disease CT head and pelvis), image reviewed Disposition Clinical Impression: Atypical chest pain, Chest pain, Intractable back pain, Weakness Disposition: ADMITTED IP TO THIS [facility] Condition: Fair Is patient prescribed a controlled substance at d/c from ED?: No Time of Disposition: 02:00
[2023-05-18 22:30] LABS: Basophils # (A) 0.1 k/uL (0-0.2); Basophils % (A) 1 %; Eosinophils # (A) 0.1 k/uL (0-0.7); Eosinophils % (A) 1 %; HCT 43.4 % (34.0-46.0); HGB 15.2 gm/dL (11.4-16.0); Lymphocytes # (A) 2.9 k/uL (1.0-4.8); Lymphocytes % (A) 52 %; MCH 35.1 pg (25.0-35.0); MCV 100.3 fL (80.0-100.0); Mean Platelet Volume 7.3; Monocytes # (A) 0.6 k/uL (0-1.0); Monocytes % (A) 11 %; Neutrophils # (A) 1.7 k/uL (1.3-7.7); Neutrophils % (A) 31 %; Platelet Count 171 k/uL (150-450); RBC 4.33 m/uL (3.80-5.40); RDW 13.4 % (11.5-15.5); WBC 5.6 k/uL (3.8-10.6)
[2023-05-18 22:43] LABS: ALT 34 U/L (4-34); AST 85 U/L (14-36); African American GFR (CKD) >90 (>60 ml/min/1.73 sqM); Albumin 4.8 g/dL (3.5-5.0); Alkaline Phosphatase 76 U/L (38-126); Anion Gap 15 mmol/L; Blood Urea Nitrogen 2 mg/dL (7-17); Carbon Dioxide 19 mmol/L (22-30); Chloride 103 mmol/L (98-107); Glucose 88 mg/dL (74-99); Lipase 167 U/L (23-300); Magnesium 1.8 mg/dL (1.6-2.3); Non-African American GFR(CKD) >90 (>60 ml/min/1.73 sqM); Sodium 137 mmol/L (137-145); Total Bilirubin 0.7 mg/dL (0.2-1.3); Total Protein 7.4 g/dL (6.3-8.2)
[2023-05-18 22:46] LABS: Potassium 4.8 mmol/L (3.5-5.1)
[2023-05-18 22:51] LABS: NT-Pro-B-Type Natriuretic Pept 28 pg/mL
[2023-05-18 22:59] LABS: INR 0.9 (<1.2); Partial Thromboplastin Time 27.2 sec (22.0-30.0); Prothrombin Time 10.3 sec (10.0-12.5)
[2023-05-18] MEDS ORDERED: HYDROmorphone 0.5 MG/0.5 ML SYRINGE IVP STA (23:42)
[2023-05-19] MEDS ORDERED: ONDANSETRON 4 MG/2 ML VIAL IVP STA (00:19)
[2023-05-19] MEDS ORDERED: IPRATROPIUM-ALBUTEROL 3 ML NEB INHALATION STA (00:28)
[2023-05-19] MEDS ORDERED: ACETAMINOPHEN TAB 325 MG TAB PO STA (00:28)
[2023-05-19] MEDS ORDERED: NALOXONE 0.4 MG/ML 1 ML VIAL IV PRN (01:53)
[2023-05-19] MEDS: HYDROmorphone 0.5 MG/0.5 ML SYRINGE IVP PRN ×7 (03:05→22:27)
--- NOTE | 2023-05-19 05:10 | CT ---
EXAM: CT Abdomen and Pelvis With Intravenous Contrast CLINICAL HISTORY: ITS.REASON CT Reason: pain TECHNIQUE: Axial computed tomography images of the abdomen and pelvis with intravenous contrast. CTDI is 12.1 mGy and DLP is 481.3 mGy-cm. This CT exam was performed using one or more of the following dose reduction techniques: automated exposure control, adjustment of the mA and/or kV according to patient size, and/or use of iterative reconstruction technique. COMPARISON: CT Abdomen Pelvis dated february 09 2023 FINDINGS: Lung bases: Unremarkable. No mass. No consolidation. Mediastinum: Small esophageal hiatal hernia. ABDOMEN: Liver: Decreased hepatic attenuation index. Findings can be seen with hepatic steatosis. Gallbladder and bile ducts: Dilated common duct measuring up to 1.1 cm, enlarged for the patient's age. This is similar compared to prior study February 09, 2023. Consider MRCP if there is further concern. No calcified stones. Pancreas: Unremarkable. No mass. No ductal dilation. Spleen: Unremarkable. No splenomegaly. Adrenals: Unremarkable. No mass. Kidneys and ureters: Unremarkable. No solid mass. No hydronephrosis. Stomach and bowel: Unremarkable. No obstruction. No mucosal thickening. PELVIS: Appendix: No findings to suggest acute appendicitis. Bladder: Unremarkable. No mass. Reproductive: Unremarkable as visualized. ABDOMEN and PELVIS: Intraperitoneal space: Unremarkable. No free air. No significant fluid collection. Bones/joints: Chronic right rib fractures. Degenerative changes in the spine. No dislocation. Soft tissues: Right inguinal surgical clips. Umbilical hernia containing fat. Vasculature: Atherosclerotic disease. No abdominal aortic aneurysm. Lymph nodes: Unremarkable. No enlarged lymph nodes. IMPRESSION: 1. Dilated common duct measuring up to 1.1 cm, enlarged for the patient's age. This is similar compared to prior study February 09, 2023. Consider MRCP if there is further concern. 2. No other acute findings. 3. Incidental findings as described.
[2023-05-19] MEDS: ONDANSETRON 4 MG/2 ML VIAL IVP PRN ×2 (08:13→15:38)
[2023-05-19] MEDS: PANTOPRAZOLE 40 MG/10 ML VIAL IV SCH (08:14)
[2023-05-19] MEDS ORDERED: DOBUTamine DRIP for NUC MED 500 MG in DEXTROSE/WATER 1 250ML.BAG IV PRN (09:08)
--- NOTE | 2023-05-19 10:54 | P.CRDCN ---
History of Present Illness History of present illness: HISTORY OF PRESENT ILLNESS: This is a 57-year-old female with a past medical history significant for Takotsubo cardiomyopathy with normal coronary arteries per cardiac catheterization in 2017, nicotine dependence, alcohol abuse, hypertension, and anxiety. Patient follows in the office with Dr. Olivas. We have been asked to see the patient in consultation for chest pain. Patient examined at the bedside in the emergency room. Patient states yesterday she felt this chest pain. She states she was at home watching TV when she began to have sharp pain in the mid dle of her chest that radiated down her left arm. She also reports feeling dizzy when standing. At the time of examination, she denies chest pain or pressure. She denies shortness of breath. She is a current cigarette smoker and states she smokes 1 pack per day. Vital signs are stable. * EKG reveals sinus mechanism with no signs of acute ischemia * Chest xray negative for acute process * Laboratory data: Troponin negative 2 * Current home cardiac medications include clonidine 0.1 mg twice a day * Patient underwent nuclear stress test in November 2021 which was negative for inducible ischemia with an ejection fraction of 60% REVIEW OF SYSTEMS: At the time of my exam: CONSTITUTIONAL: Denies fever or chills. HEENT: Denies blurred vision, vision changes, or eye pain. Denies hemoptysis CARDIOVASCULAR: Denies chest pain. Denies orthopnea. Denies PND. Denies pal pitations RESPIRATORY: Denies shortness of breath. GASTROINTESTINAL: Denies abdominal pain. Denies nausea or vomiting. HEMATOLOGIC: Denies bleeding disorders. GENITOURINARY: Denies any blood in urine. SKIN: Denies pruitis. Denies rash. PHYSICAL EXAM: VITAL SIGNS: Reviewed. GENERAL: Well-developed in no acute distress. HEENT: Head is normocephalic. Pupils are equal, round. Sclerae anicteric. Mucous membranes of the mouth are moist. Neck supple. No JVD or thyromegaly LUNGS: Respirations even and unlabored. Lungs essentially clear to auscultation bilaterally. HEART: Regular rate and rhythm. S1 and S2 heard. ABDOMEN: Soft. Nondistended. Nontender. EXTREMITIES: Normal range of motion. No clubbing or cyanosis. Peripheral pulses intact. No lower extremity edema NEUROLOGIC: Awake and alert. Oriented x 3. ASSESSMENT: Chest pain, troponins negative 2 History of Takotsubo cardiomyopathy Normal coronary arteries, per cardiac catheterization in 2017 History of alcohol abuse Hypertension Nicotine dependence Anxiety PLAN: An acute coronary event has been ruled out Resume home cardiac medications Smoking cessation recommended Patient will undergo dobutamine stress test today If negative, the patient may be discharged home from a cardiac standpoint Nurse practitioner note has been reviewed by physician. Signing provider agrees with the documented findings, assessment, and plan of care. Past Medical History Past Medical History: COPD, Liver Disease, Myocardial Infarction ([place]), Seizure Disorder, Vascular Disorder Additional Past Medical History / Comment(s): constpation, last bowel movement 4 days ago, feeling bloated,feeling of fullness, and abdominal pain, feels hungry then over eats then vomits to feel better, LAST SEIZURE - JANUARY 2021, "broken heart syndrome"., elevated liver enzymes, "dislocated disks", hx cervical cancer Last Myocardial Infarction Date:: 2019 History of Any Multi-Drug Resistant Organisms: None Reported Past Surgical History: Section, Heart Catheterization, Tubal Ligation Additional Past Surgical History / Comment(s): ORIF rt ankle/hardware later removed, exploratory lap, PAIN CLINIC PROCEDURE, BILAT CATARACTS REMOVED WITH LENS IMPLANTS, procedure to open a vein in left leg-couldn't confirm which leg, partial amputation rt hand middle finger, "procedure to remove cervical cancer" Past Anesthesia/Blood Transfusion Reactions: No Reported Reaction Past Psychological History: Anxiety, Bipolar, Depression, PTSD Smoking Status: Current every day smoker Past Alcohol Use History: Abuse, Heavy Past Drug Use History: Marijuana - Past Family History Father Family Medical History: Cancer, Prostate Disorder, Pulmonary Embolus Sister(s) Family Medical History: Cancer Brother(s) Family Medical History: Cancer Additional Family Medical History / Comment(s): colon and bladder Medications and Allergies Home Medications Medication Instructions Recorded Confirmed Type levETIRAcetam [Keppra] 500 mg PO BID 10/23/20 05/19/23 History cloNIDine HCL 0.1 mg PO BID 09/03/21 05/19/23 History Allergies Allergy/AdvReac Type Severity Reaction Status Date / Time Penicillins Allergy Rash/Hives/Swelling Verified 05/19/23 07:17 all over body NSAIDS (Non-Steroidal AdvReac Unknown upset Verified 05/19/23 07:17 Anti-Inflamma stomach sertraline HCl [From Zoloft] AdvReac Suicidal/Ag Verified 05/19/23 07:17 ression Physical Exam Vitals: Vital Signs Temp Pulse Resp BP Pulse Ox 05/19/23 08:15 86 05/19/23 08:00 97.7 F 115 H 20 156/86 96 05/19/23 06:13 98.2 F 78 18 129/80 97 05/19/23 05:00 67 18 129/80 96 05/19/23 03:58 67 18 127/75 95 05/19/23 03:00 68 18 115/64 95 05/19/23 01:41 68 18 138/91 95 05/19/23 01:18 77 05/19/23 01:09 73 05/19/23 00:30 97.9 F 71 22 136/96 94 L 05/18/23 23:30 98.2 F 62 18 122/79 95 05/18/23 22:30 64 16 115/85 94 L 05/18/23 21:39 97.8 F 94 18 128/91 98 Intake and Output 05/18/23 05/19/23 05/19/23 22:59 06:59 14:59 Other: Weight 40.823 kg Results 05/18/23 21:43 05/18/23 21:43 Cardiac Enzymes 05/18/23 05/18/23 05/19/23 Range/Units 21:43 21:43 05:27 AST 85 H (14-36) U/L Troponin I 0.021 <0.012 (0.000-0.034) ng/mL Coagulation 05/18/23 Range/Units 21:43 PT 10.3 (10.0-12.5) sec APTT 27.2 (22.0-30.0) sec CBC 05/18/23 Range/Units 21:43 WBC 5.6 (3.8-10.6) k/uL RBC 4.33 (3.80-5.40) m/uL Hgb 15.2 (11.4-16.0) gm/dL Hct 43.4 (34.0-46.0) % Plt Count 171 (150-450) k/uL Comprehensive Metabolic Panel 05/18/23 Range/Units 21:43 Sodium 137 (137-145) mmol/L Potassium 4.8 (3.5-5.1) mmol/L Chloride 103 (98-107) mmol/L Carbon Dioxide 19 L (22-30) mmol/L BUN 2 L (7-17) mg/dL Creatinine 0.31 L (0.52-1.04) mg/dL Glucose 88 (74-99) mg/dL Calcium 9.0 (8.4-10.2) mg/dL AST 85 H (14-36) U/L ALT 34 (4-34) U/L Alkaline Phosphatase 76 (38-126) U/L Total Protein 7.4 (6.3-8.2) g/dL Albumin 4.8 (3.5-5.0) g/dL Current Medications Generic Name Dose Route Start Last Admin Trade Name Freq PRN Reason Stop Dose Admin Hydromorphone HCl 0.5 mg 05/19/23 01:53 05/19/23 09:19 Hydromorphone 0.5 Mg/0.5 Ml Syringe IVP 0.5 mg Q3HR PRN Administration Moderate Pain (Scale 4 to 6) Dobutamine HCl/Dextrose 500 mg 250 mls @ 12.247 mls/hr 05/19/23 09:08 / IV Solution IV 05/19/23 13:08 .[id number] PRN Per Protocol Protocol 10 MCG/KG/MIN Naloxone HCl 0.2 mg 05/19/23 01:53 Naloxone 0.4 Mg/Ml 1 Ml Vial IV Q2M PRN Opioid Reversal Ondansetron HCl 4 mg 05/19/23 01:53 05/19/23 08:13 Ondansetron 4 Mg/2 Ml Vial IVP 4 mg Q8HR PRN Administration Nausea And Vomiting Pantoprazole Sodium 40 mg 05/19/23 09:00 05/19/23 08:14 Pantoprazole 40 Mg/10 Ml Vial IV 40 mg DAILY EDGARDO Administration Intake and Output 05/18/23 05/19/23 05/19/23 22:59 06:59 14:59 Other: Weight 40.823 kg 05/18/23 21:43 05/18/23 21:43
[2023-05-19] MEDS: cloNIDine HCL 0.1 MG TAB PO SCH ×2 (11:28→21:08)
[2023-05-19] MEDS: levETIRAcetam 500 MG TAB PO SCH ×2 (11:28→21:08)
[2023-05-19] MEDS ORDERED: LORazepam 0.5 MG TAB PO PRN (12:24)
[2023-05-19] MEDS ORDERED: LORazepam 2 MG/ML INJ IV PRN ×3 (12:24)
[2023-05-19] MEDS ORDERED: cloNIDine HCL 0.1 MG TAB PO PRN (12:31)
[2023-05-19 13:06] LABS: Basophils % (A) 0 %; Eosinophils % (A) 0 %; HCT 38.6 % (34.0-46.0); HGB 13.5 gm/dL (11.4-16.0); Lymphocytes # (A) 0.9 k/uL (1.0-4.8); Lymphocytes % (A) 11 %; MCH 35.2 pg (25.0-35.0); MCHC 35.1 g/dL (31.0-37.0); MCV 100.4 fL (80.0-100.0); Mean Platelet Volume 7.1; Monocytes # (A) 0.6 k/uL (0-1.0); Monocytes % (A) 8 %; Neutrophils # (A) 6.2 k/uL (1.3-7.7); Neutrophils % (A) 79 %; Platelet Count 159 k/uL (150-450); RBC 3.84 m/uL (3.80-5.40); RDW 13.6 % (11.5-15.5); WBC 7.8 k/uL (3.8-10.6)
[2023-05-19 13:11] LABS: ALT 28 U/L (4-34); AST 51 U/L (14-36); African American GFR (CKD) >90 (>60 ml/min/1.73 sqM); Albumin 3.9 g/dL (3.5-5.0); Albumin/Globulin Ratio 1.7; Alcohol <10 mg/dL; Alkaline Phosphatase 78 U/L (38-126); Amylase 46 U/L (30-110); Anion Gap 10 mmol/L; Blood Urea Nitrogen <2 mg/dL (7-17); Calcium 8.8 mg/dL (8.4-10.2); Carbon Dioxide 22 mmol/L (22-30); Chloride 101 mmol/L (98-107); Globulin 2.3 g/dL; Glucose 92 mg/dL (74-99); Lipase 78 U/L (23-300); Non-African American GFR(CKD) >90 (>60 ml/min/1.73 sqM); Potassium 3.4 mmol/L (3.5-5.1); Sodium 133 mmol/L (137-145); Total Protein 6.2 g/dL (6.3-8.2)
--- NOTE | 2023-05-19 13:14 | HP ---
HISTORY AND PHYSICAL CHIEF COMPLAINT: Lower chest and upper abdominal pain. HISTORY OF PRESENT ILLNESS: This is a 57-year-old woman with a past medical history of hypertension, was admitted with abdominal and chest pain. The patient apparently was also drinking up to 4 beers. The patient also had withdrawal symptoms. CT scan of the abdomen pelvis showed dilated CBD 1.1 cm. Cardiology evaluation in progress. There is no history of any fever, rigors, or chills. PAST MEDICAL HISTORY: Hypertension, rest of the history and rest of chart is also reviewed, COPD, liver disease, seizure disorder. HOME MEDICATIONS: Reviewed include Keppra, dose and rest of medications reviewed. ALLERGIES: Penicillin, rest of allergies reviewed. FAMILY HISTORY: History of prostate disorder, pulmonary embolism. SOCIAL HISTORY: History of alcohol abuse, nicotine dependence. REVIEW OF SYSTEMS: A 14-point review is negative except as mentioned. PHYSICAL EXAMINATION: VITAL SIGNS: Pulse is 114, blood pressure 172/112, respirations 18. CHEST: Few scattered rhonchi. No crackles. CARDIOVASCULAR: S1, S2. ABDOMEN: Soft, mild diffuse discomfort in the epigastrium present. LEGS: No edema, no swelling. NERVOUS SYSTEM: No focal deficit. SKIN: No ulcer, rash, bleeding. JOINTS: No active deforming arthropathy. LABORATORY DATA: Reviewed. ASSESSMENT: 1. Chest pain, possible unstable angina. 2. Upper abdominal pain, rule out gallstones and CBD dilatation in the CT scan, 1.1 cm. 3. ETOH and acute delirium tremens. 4. History of COPD. 5. History of seizure disorder. 6. History of chronic liver disorder. 7. History of anxiety, bipolar, depression, PTSD. RECOMMENDATIONS AND DISCUSSION: This 57-year-old woman presented with multiple complex medical issues, we will monitor the patient closely. CIWA protocol. Symptomatic treatment. Cardiology consultation. I would also recommend GI evaluation also for the liver problems and associated CBD dilatation to consider the possibility of choledocholithiasis. Otherwise, continue to monitor, clonidine has been initiated. Guarded prognosis. Further recommendations to follow. MMODL / IJN: [id number] /
--- NOTE | 2023-05-19 16:13 | P.CONS ---
History of Present Illness - Reason for Consult Consult date: 05/19/23 Dilated CBD Requesting physician: Mary Mejia - Chief Complaint Shortness of breath, chest pain, cough - History of Present Illness This is a pleasant 57-year-old female with a past medical history significant for alcohol abuse, COPD, liver disease, seizure disorder, current every day smoker, history of marijuana use, and vascular disorder who presented to the emergency department for complaints of shortness of breath, chest pain and cough. Patient underwent chest x-ray showed no acute cardiopulmonary disease/process. She had a mildly elevated AST. CT abdomen and pelvis was ordered with IV contrast and reported dilated common bile duct measuring up to 1.1 cm, enlarged for the patient's age. Similar compared to prior study 02/09/2023. Consider MRCP if further concern. No other acute findings. Gastroenterology was consulted for dilated CBD. Patient states she has no abdominal pain, she has no nausea or vomiting. Patient is going through. Withdrawal and is very shaky. States she feels very anxious. She was going to undergo a dobutamine stress test today however patient was coughing significantly to the point that it was making her gag and cough clear phlegm, so testing was deferred. Patient was tested for influenza and cCOVID-19 which were negative. Patient states that she drinks at least 4 beers daily for many years. States last drink was right before she came into the emergency department yesterday. Labs WBC 7.8, hemoglobin 13.5 hematocrit 38 platelet count 159,000 INR 0.9 sodium 133 potassium 3.4 BUN 1.0 AST 51 ALT 28 alkaline phosphatase 78 lipase 78 Review of Systems REVIEW OF SYSTEMS: CARDIOPULMONARY: Patient reports chest pain, shortness of breath and productive cough. Gastrointestinal: No abdominal pain. No nausea or vomiting. No hematemesis, coffee-ground emesis. No rectal bleeding, or melena. GENITOURINARY: No dysuria or hematuria. MUSCULOSKELETAL: Reports normal range of motion., Joint pain. SKIN: No rashes. No jaundice. ENDOCRINE: No chills, fevers. No excessive weight gain or loss. No polydipsia or polyuria. PSYCHIATRIC: Unremarkable. NEUROLOGY: No change in mental status. Denies dizziness, headache. ENT: Vision unremarkable. CONSTITUTIONAL: No recent weight loss. No fever, chills, night sweats. Past Medical History Past Medical History: COPD, Liver Disease, Myocardial Infarction (SD), Seizure Disorder, Vascular Disorder Additional Past Medical History / Comment(s): constpation, last bowel movement 4 days ago, feeling bloated,feeling of fullness, and abdominal pain, feels hungry then over eats then vomits to feel better, LAST SEIZURE - JANUARY 2021, "broken heart syndrome"., elevated liver enzymes, "dislocated disks", hx cervical cancer Last Myocardial Infarction Date:: 2019 History of Any Multi-Drug Resistant Organisms: None Reported Past Surgical History: Section, Heart Catheterization, Tubal Ligation Additional Past Surgical History / Comment(s): ORIF rt ankle/hardware later r emoved, exploratory lap, PAIN CLINIC PROCEDURE, BILAT CATARACTS REMOVED WITH LENS IMPLANTS, procedure to open a vein in left leg-couldn't confirm which leg, partial amputation rt hand middle finger, "procedure to remove cervical cancer" Past Anesthesia/Blood Transfusion Reactions: No Reported Reaction Past Psychological History: Anxiety, Bipolar, Depression, PTSD Smoking Status: Current every day smoker Past Alcohol Use History: Abuse, Heavy Past Drug Use History: Marijuana - Past Family History Father Family Medical History: Cancer, Prostate Disorder, Pulmonary Embolus Sister(s) Family Medical History: Cancer Brother(s) Family Medical History: Cancer Additional Family Medical History / Comment(s): colon and bladder Medications and Allergies Home Medications Medication Instructions Recorded Confirmed Type levETIRAcetam [Keppra] 500 mg PO BID 10/23/20 05/19/23 History cloNIDine HCL 0.1 mg PO BID 09/03/21 05/19/23 History Allergies Allergy/AdvReac Type Severity Reaction Status Date / Time Penicillins Allergy Rash/Hives/Swelling Verified 05/19/23 07:17 all over body NSAIDS (Non-Steroidal AdvReac Unknown upset Verified 05/19/23 07:17 Anti-Inflamma stomach sertraline HCl [From Zoloft] AdvReac Suicidal/Ag Verified 05/19/23 07:17 ression Physical Exam Vitals: Vital Signs Temp Pulse Resp BP BP Pulse Ox 05/19/23 14:30 97.8 F 17 165/91 99 05/19/23 13:00 85 18 147/93 05/19/23 11:29 114 H 18 172/112 98 05/19/23 10:58 84 96 05/19/23 08:15 86 05/19/23 08:00 97.7 F 115 H 20 156/86 96 05/19/23 06:13 98.2 F 78 18 129/80 97 05/19/23 05:00 67 18 129/80 96 05/19/23 03:58 67 18 127/75 95 05/19/23 03:00 68 18 115/64 95 05/19/23 01:41 68 18 138/91 95 05/19/23 01:18 77 05/19/23 01:09 73 05/19/23 00:30 97.9 F 71 22 136/96 94 L 05/18/23 23:30 98.2 F 62 18 122/79 95 05/18/23 22:30 64 16 115/85 94 L 05/18/23 21:39 97.8 F 94 18 128/91 98 General appearance: The patient is alert, oriented, appears in no acute distress. HET: Head is normocephalic and atraumatic. Conjunctiva pink. Sclera anicteric. Neck: Supple without lymphadenopathy. Trachea midline. Heart: Regular. Lungs: Equal expansion, normal respiratory effort. Abdomen: Soft, nontender, nondistended with bowel sounds. No guarding or rigidity. Skin: No rashes. No jaundice. Extremities: Normal skin color and turgor. No pedal edema. Neurological: No focal deficits. Alert and oriented x3. Patient is very shaky and jittery. Appears anxious Results CBC & Chem 7: 05/19/23 12:48 05/19/23 12:48 Labs: Abnormal Lab Results - Last 24 Hours (Table) 05/18/23 05/18/23 05/19/23 Range/Units 21:43 21:43 12:48 MCV 100.3 H 100.4 H (80.0-100.0) fL MCH 35.1 H 35.2 H (25.0-35.0) pg Lymphocytes # 0.9 L (1.0-4.8) k/uL Sodium (137-145) mmol/L Potassium (3.5-5.1) mmol/L Carbon Dioxide 19 L (22-30) mmol/L BUN 2 L (7-17) mg/dL Creatinine 0.31 L (0.52-1.04) mg/dL AST 85 H (14-36) U/L Total Protein (6.3-8.2) g/dL 05/19/23 Range/Units 12:48 MCV (80.0-100.0) fL MCH (25.0-35.0) pg Lymphocytes # (1.0-4.8) k/uL Sodium 133 L (137-145) mmol/L Potassium 3.4 L (3.5-5.1) mmol/L Carbon Dioxide (22-30) mmol/L BUN <2 L (7-17) mg/dL Creatinine 0.31 L (0.52-1.04) mg/dL AST 51 H (14-36) U/L Total Protein 6.2 L (6.3-8.2) g/dL Assessment and Plan (1) Common bile duct dilation Narrative/Plan: 27-year-old female who presented to the emergency department with complaints of shortness of breath cough and chest pain. Patient had mildly elevated AST and underwent CT of the abdomen and pelvis with contrast that reported dilated common bile duct measuring 1.1 cm which is enlarged for patient's age however also reports that prior CT in January of this year also showed dilated common bile duct. Patient denies any abdominal pain, no nausea or vomiting. Patient's AST is elevated consistent with alcoholic liver disease. No elevation in total bilirubin or alkaline phosphatase. Unclear etiology of the common bile duct dilation however no concerns at this time for biliary stricture. No further w orkup indicated at this time. Discussed with patient importance of alcohol abstinence. Continue with medical management. Current Visit: Yes Status: Acute Code(s): K83.8 - OTHER SPECIFIED DISEASES OF BILIARY TRACT SNOMED Code(s): 802771969 (2) Alcohol abuse Current Visit: Yes Status: Acute Code(s): F10.10 - ALCOHOL ABUSE, UNCOMPLICATED SNOMED Code(s): 21220568 (3) Shortness of breath Current Visit: Yes Status: Acute Code(s): R06.02 - SHORTNESS OF BREATH SNOMED Code(s): 476486835 (4) Cough Current Visit: Yes Status: Acute Code(s): R05.9 - COUGH, UNSPECIFIED SNOMED Code(s): 79052813 (5) Chest pain Current Visit: Yes Status: Acute Code(s): R07.9 - CHEST PAIN, UNSPECIFIED SNOMED Code(s): 66559200 (6) Alcohol withdrawal Current Visit: No Status: Acute Code(s): F10.239 - ALCOHOL DEPENDENCE WITH WITHDRAWAL, UNSPECIFIED SNOMED Code(s): 303014538 Plan: 1. Continue symptomatic and supportive care 2. Recommend alcohol abstinence 3. Monitor for alcohol withdrawals, CIWA protocol 4. CT abdomen and pelvis report reviewed, prior dilation on previous report patient without any symptoms of CBD obstruction or biliary stricture. No furthe r workup indicated. Thank you for this consultation, we will sign off at this time. Dr. Mary Varela I agree with the dictator's note, documented as a scribe by Halley Villegas.
[2023-05-19 20:41] LABS: Hepatitis A Antibody IgM Nonreactive; Hepatitis B Core IgM Nonreactive; Hepatitis B Surface Antigen Nonreactive; Hepatitis C IgG Antibody Nonreactive
[2023-05-19] MEDS ORDERED: CALAMINE/ZINC OXIDE LOTION 177 ML BTL TOPICAL PRN (22:45)
[2023-05-20] MEDS: HYDROmorphone 0.5 MG/0.5 ML SYRINGE IVP PRN ×3 (01:50→13:08)
--- NOTE | 2023-05-20 07:57 | XR ---
EXAMINATION TYPE: XR chest 1V DATE OF EXAM: 05/20/2023 HISTORY: Shortness of breath. COMPARISON: 05/18/2023 TECHNIQUE: Single view of the chest is submitted. FINDINGS: Demonstrated are scattered senescent parenchymal change. There is no evidence for focal infiltrate. The heart is stable. Hilar and mediastinal structures are within normal limits. Degenerative changes are seen of the dorsal spine. IMPRESSION: 1. Chronic changes without evidence for acute pulmonary disease.
[2023-05-20] MEDS ORDERED: DOBUTamine DRIP for NUC MED 500 MG in DEXTROSE/WATER 1 250ML.BAG IV PRN (08:23)
[2023-05-20] MEDS: PANTOPRAZOLE 40 MG/10 ML VIAL IV SCH (08:46)
[2023-05-20] MEDS: cloNIDine HCL 0.1 MG TAB PO SCH (08:46)
[2023-05-20] MEDS: levETIRAcetam 500 MG TAB PO SCH (08:46)
[2023-05-20 09:00] LABS: ALT 24 U/L (8-44); AST 38 U/L (13-35); Albumin 4.1 g/dL (3.8-4.9); Albumin/Globulin Ratio 2.16 Ratio (1.60-3.17); Alkaline Phosphatase 79 U/L (41-126); BUN/Creat Ratio <8.75 Ratio (12.00-20.00); Blood Urea Nitrogen <3.5 mg/dL (9.0-27.0); Calcium 9.8 mg/dL (8.7-10.3); Carbon Dioxide 23.7 mmol/L (21.6-31.8); Chloride 92 mmol/L (96-109); Globulin 1.9 g/dL (1.6-3.3); Glucose 67 mg/dL (70-110); Lipase 29 U/L (14-63); Magnesium 1.5 mg/dL (1.5-2.4); Phosphorus 3.3 mg/dL (2.4-5.1); Potassium 3.7 mmol/L (3.5-5.5); Sodium 131 mmol/L (135-145)
[2023-05-20 09:10] LABS: Basophils # (A) 0.04 X 10*3/uL (0.00-0.10); Basophils % (A) 0.7 %; Eosinophils # (A) 0.04 X 10*3/uL (0.04-0.35); Eosinophils % (A) 0.7 %; HCT 35.7 % (37.2-46.3); HGB 12.8 g/dL (12.0-15.0); Lymphocytes # (A) 1.31 X 10*3/uL (0.90-5.00); Lymphocytes % (A) 22.9 %; MCH 34.4 pg (27.0-32.0); MCHC 35.9 g/dL (32.0-37.0); Mean Platelet Volume 9.7 FL (9.5-12.2); Monocytes # (A) 0.92 X 10*3/uL (0.20-1.00); Monocytes % (A) 16.1 %; NRBC Per 100 WBC 0 X 10*3/uL (0.00-0.01); Neutrophils # (A) 3.39 X 10*3/uL (1.80-7.70); Neutrophils % (A) 59.1 %; Platelet Count 143 X 10*3/uL (140-440); RBC 3.72 X 10*6/uL (4.10-5.20); RDW 13.2 % (11.5-14.5); WBC 5.73 X 10*3/uL (4.50-10.00)
--- NOTE | 2023-05-20 09:27 | CA ---
Transthoracic Echo Report Name: Zuri Santo Age: 57 Gender: F : 1965 Exam Date: 05/19/2023 14:03 Exam Location: [facility] Ht (in): 60 Wt (lb): 90 Ordering Physician: Anna Henning Attending/Referring Phys: [id number], Milady Accounting Manager Assistant Controller Aamir Swift Procedure CPT: Indications: LV function, CP Cardiac Hx: Technical Quality: Fair Contrast 1: Total Dose (mL): Contrast 2: Total Dose (mL): MEASUREMENTS (Male / Female) Normal Values 2D ECHO LV Diastolic Diameter PLAX 3.9 cm 4.2 - 5.9 / 3.9 - 5.3 cm LV Systolic Diameter PLAX 2.3 cm IVS Diastolic Thickness 0.9 cm 0.6 - 1.0 / 0.6 - 0.9 cm LVPW Diastolic Thickness 0.8 cm 0.6 - 1.0 / 0.6 - 0.9 cm LV Relative Wall Thickness 0.4 RV Internal Dim ED PLAX 2.1 cm LVOT Diameter 2.2 cm Aortic Root Diameter 2.7 cm LA Systolic Diameter LX 2.0 cm 3.0 - 4.0 / 2.7 - 3.8 cm LV Diastolic Volume MOD BP 31.8 cm??? 67 - 155 / 56 - 104 cm??? LV Systolic Volume MOD BP 9.8 cm??? 22 - 58 / 19 - 49 cm??? LV Ejection Fraction MOD BP 69.2 % >= 55 % LV Cardiac Index MOD BP 1312.5 cm???/min???m??? LV Diastolic Volume MOD 4C 40.8 cm??? LV Systolic Volume MOD 4C 9.8 cm??? LV Ejection Fraction MOD 4C 76.0 % LV Cardiac Index MOD 4C 1849.4 cm???/min???m??? LV Diastolic Length 4C 7.3 cm LV Systolic Length 4C 6.2 cm LV Diastolic Volume MOD 2C 23.1 cm??? LV Systolic Volume MOD 2C 9.8 cm??? LV Ejection Fraction MOD 2C 57.8 % LV Cardiac Index MOD 2C 797.9 cm???/min???m??? LV Diastolic Length 2C 6.8 cm LV Systolic Length 2C 6.3 cm LA Volume 30.7 cm??? 18 - 58 / 22 - 52 cm??? LA Volume Index 23.5 cm???/m??? 16 - 28 cm???/m??? DOPPLER AV Peak Velocity 155.6 cm/s AV Peak Gradient 9.7 mmHg LVOT Peak Velocity 124.4 cm/s LVOT Peak Gradient 6.2 mmHg LVOT Velocity Time Integral 25.2 cm LVOT Stroke Volume 92.1 cm??? LVOT Stroke Volume Index 69.3 ml/m??? LVOT Cardiac Index 5492.6 cm???/min???m??? AV Area Cont Eq pk 2.9 cm??? MV Peak Velocity 95.0 cm/s MV Peak Gradient 3.6 mmHg MV Mean Velocity 46.9 cm/s MV Mean Gradient 1.1 mmHg MV Velocity Time Integral 25.2 cm Mitral E Point Velocity 95.8 cm/s Mitral A Point Velocity 60.5 cm/s Mitral E to A Ratio 1.6 MV Deceleration Time 151.9 ms MV E' Velocity 9.9 cm/s Mitral E to MV E' Ratio 9.7 TR Peak Velocity 136.1 cm/s TR Peak Gradient 7.4 mmHg Right Ventricular Systolic Press 12.7 mmHg PV Peak Velocity 85.3 cm/s PV Peak Gradient 2.9 mmHg FINDINGS Left Ventricle Normal LV size and wall thickness. Left ventricular ejection fraction is estimated at 55-60 %. Right Ventricle Normal right ventricular size. Right Atrium Normal right atrial size. Left Atrium Normal left atrial size. Mitral Valve Structurally normal mitral valve. Aortic Valve Aortic valve not well visualized. No aortic regurgitation. No aortic stenosis. Tricuspid Valve Tricuspid valve not well visualized. Trace TR. Pulmonic Valve Pulmonic valve not well visualized. Trace PI. Pericardium Normal pericardium. Aorta Normal size aortic root . CONCLUSIONS Technically difficult study for interpretation was poor acoustic windows Normal LV systolic function Previewed by: Dr. Yandel Falk MD (Electronically Signed) Final Date: 20 May 2023 09:27
--- NOTE | 2023-05-20 11:08 | P.PN ---
Subjective HISTORY OF PRESENT ILLNESS: This is a 57-year-old female with a past medical history significant for Takotsubo cardiomyopathy with normal coronary arteries per cardiac catheterization in 2017, nicotine dependence, alcohol abuse, hypertension, and anxiety. Patient follows in the office with Dr. Olivas. We have been asked to see the patient in consultation for chest pain. Patient examined at the bedside in the emergency room. Patient states yesterday she felt this chest pain. She states she was at home watching TV when she began to have sharp pain in the middle of her chest that radiated down her left arm. She also reports feeling dizzy when standing. At the time of examination, she denies chest pain or pressure. She denies shortness of breath. She is a current cigarette smoker and states she smokes 1 pack per day. Vital signs are stable. * EKG reveals sinus mechanism with no signs of acute ischemia * Chest xray negative for acute process * Laboratory data: Troponin negative 2 * Current home cardiac medications include clonidine 0.1 mg twice a day * Patient underwent nuclear stress test in November 2021 which was negative for inducible ischemia with an ejection fraction of 60% Addendum entered and electronically signed by Anna Henning NP-C 05/19/23 10:54: Patient was brought up to stress testing area for dobutamine stress test. Upon arrival to the unit, patient was nauseated with a bucket in her lap. She states she has been nauseous and vomiting for the past 2 days. She also reports a hacking cough and feels congested. The patient states that she was exposed to Covid within the last week as her friends spouse is covid positive. Dobutamine stress test was canceled and the patient was sent back to the emergency room wearing a mask. We'll test patient for covid, flu, and RSV. 05/20/2023 Patient examined this morning at the bedside. Patient currently denies chest pain or pressure. She denies shortness of breath. Echocardiogram completed revealing ejection fraction 55-60%, and trace TR. Patient was tested for Covid, RSV, and flu yesterday which were all negative. She reports improvement in her nausea. Vital signs are stable. PHYSICAL EXAM: VITAL SIGNS: Reviewed. GENERAL: Well-developed in no acute distress. HEENT: Head is normocephalic. Pupils are equal, round. Sclerae anicteric. Mucous membranes of the mouth are moist. Neck supple. No JVD or thyromegaly LUNGS: Respirations even and unlabored. Lungs essentially clear to auscultation bilaterally. HEART: Regular rate and rhythm. S1 and S2 heard. ABDOMEN: Soft. Nondistended. Nontender. EXTREMITIES: Normal range of motion. No clubbing or cyanosis. Peripheral pulses intact. No lower extremity edema NEUROLOGIC: Awake and alert. Oriented x 3. ASSESSMENT: Chest pain, troponins negative 2 History of Takotsubo cardiomyopathy Normal coronary arteries, per cardiac catheterization in 2017 History of alcohol abuse Hypertension Nicotine dependence Anxiety PLAN: An acute coronary event has been ruled out Resume home cardiac medications Smoking cessation recommended Patient will undergo dobutamine stress test today If negative, the patient may be discharged home from a cardiac standpoint Nurse practitioner note has been reviewed by physician. Signing provider agrees with the documented findings, assessment, and plan of care. Objective - Vital Signs Vital signs: Vital Signs Temp 97.8 F 05/20/23 07:00 Pulse 66 05/20/23 08:00 Resp 16 05/20/23 08:00 BP 147/79 05/20/23 07:00 Pulse Ox 99 05/20/23 07:00 FiO2 Intake & Output 05/19/23 05/20/23 05/20/23 18:59 06:59 18:59 Weight 40.823 kg Other: Voiding Method Bedside Commode Bedside Commode # Voids 1 - Labs CBC & Chem 7: 05/20/23 06:05 05/20/23 06:05 Labs: Abnormal Lab Results - Last 24 Hours (Table) 05/19/23 05/19/23 05/20/23 Range/Units 12:48 12:48 06:05 RBC 3.72 L (4.10-5.20) X 10*6/uL Hct 35.7 L (37.2-46.3) % MCV 100.4 H (80.0-100.0) fL MCH 35.2 H 34.4 H (25.0-35.0) pg Lymphocytes # 0.9 L (1.0-4.8) k/uL Sodium 133 L (137-145) mmol/L Potassium 3.4 L (3.5-5.1) mmol/L Chloride (96-109) mmol/L Anion Gap (4.00-12.00) mmol/L BUN <2 L (7-17) mg/dL Creatinine 0.31 L (0.52-1.04) mg/dL BUN/Creatinine Ratio (12.00-20.00) Ratio Glucose (70-110) mg/dL AST 51 H (14-36) U/L Total Protein 6.2 L (6.3-8.2) g/dL 05/20/23 Range/Units 06:05 RBC (4.10-5.20) X 10*6/uL Hct (37.2-46.3) % MCV (80.0-100.0) fL MCH (25.0-35.0) pg Lymphocytes # (1.0-4.8) k/uL Sodium 131 L (137-145) mmol/L Potassium (3.5-5.1) mmol/L Chloride 92 L (96-109) mmol/L Anion Gap 15.30 H (4.00-12.00) mmol/L BUN <3.5 L (7-17) mg/dL Creatinine 0.4 L (0.52-1.04) mg/dL BUN/Creatinine Ratio <8.75 L (12.00-20.00) Ratio Glucose 67 L (70-110) mg/dL AST 38 H (14-36) U/L Total Protein 6.0 L (6.3-8.2) g/dL
[2023-05-20 11:27] VITALS: BMI 17.6
--- NOTE | 2023-05-20 12:47 | CA ---
Dobutamine Stress Echocardiogram Report Zuri Santo Age: 57 Gender: F : 1965 Exam Date: 05/20/2023 12:00 Exam Location: [facility] Ordering Physician: Anna Henning Referring Physician: [id number] Paediatric Surgeon: Ashley Tripp RDCS Technologist: Ht (in): 60 Wt (lb): 90 Procedure CPT: Indication: CP ICD-9 Codes: Rhythm: Patient History: CP, PALP, HTN, TOB, NE, CATH , ASTHMA Cardiac Medications: SEE CHART Medications in past 24 hours: Contrast: Total Dose (mL): Stress Results Protocol: Dobutamine Peak Dose (???g/kg/min): Duration (min:sec): Atropine:(mg) Target HR: 139 Double Product: [id number] Resting HR: 56 Resting BP: 138 / 99 Peak HR: 146 Peak BP: 152 / 76 Max Predicted HR: 164 89 % Max Predicted HR Stress Summary: BP Response: Reason for Termination: MAX HR ACHIEVED Cardiac Symptoms: ASYMPTOMATIC ECG Analysis Resting EKG: Stress EKG: Arrhythmia: Echo Analysis Base Echo Analysis: Low Echo Anaylsis: Peak Echo Analysis: Recovery Echo: MEASUREMENTS (Male/Female) Normal Values CONCLUSIONS Normal electrocardiogram and echocardiogram in response to dobutamine Dr. Yandel Falk MD (Electronically Signed) Final Date: 20 May 2023 12:46
[2023-05-20 13:02] VITALS: BP 120/87; PULSE 62; RESP 15; TEMP 97.6
--- NOTE | 2023-05-24 06:08 | P.DS ---
Providers Date of admission: 05/19/23 01:55 Expected date of discharge: 05/20/23 Attending physician: Mary Mejia Consults: 05/19/23 11:00 Consult Physician Urgent Consulting Provider: Bekah Varela Consult Reason/Comments: dilated cbd Do you want consulting provider notified?: Yes Primary care physician: Henny Angel [facility] Course: Final diagnosis Chest pain, possible unstable angina Upper abdominal pain ruled out gallstones, CBD dilation on the CT 1.1 cm EtOH and early acute delirium tremens [place] history of COPD, not an exacerbation neck line history of seizure disorder and history of chronic liver disorder [place] history of anxiety, bipolar depression PTSD Mild protein calorie malnutrition with a BMI of 17.6 Continued ongoing nicotine dependence GI prophylaxis DVT prophylaxis Full code Discharge disposition Patient is being discharged in a stable condition with guarded prognosis to home. Patient will follow-up with Dr. Clay Mejia in the outpatient setting upon discharge. Patient is to continue with Librium taper on discharge. Patient to follow-up with cardiology outpatient as scheduled. Total time taken is greater than 35 minutes. Hospital course This is a 57-year-old female who was recently admitted with chest pain being closely monitored. Patient also is a daily drinker and will be placed on CIWA protocol. Patient initially attempted stress test although became nauseous and vomiting and was canceled and scheduled for next day. Patient underwent stress testing today which was negative and has been cleared by cardiology. Patient seen and evaluated by GI for dilated CBD which appears to be chronic with no plans for intervention at this time. Complete alcohol cessation along with tobacco use and exposure was extensively counseled. Patient continued on Librium taper and will continue short course on discharge. Please refer to other consultation notes for further HPI. Patient reports to feeling better and asking when she can go home. Currently no reports of chest pain, shortness of breath, or palpitations. Patient is afebrile. No reports of nausea or vomiting and patient is tolerating diet. Patient will be discharged home with guarded prognosis today. High risk for readmissions given patient's continued alcohol use. Physical exam: Gen: This is a 57 old female who is awake, alert and oriented 3, appears older than stated age, well-developed HEENT: Head is atraumatic, normocephalic. Pupils equal, round. Sclerae is anicteric. NECK: Supple. No JVD. No lymphadenopathy. No thyromegaly. LUNGS: Clear to auscultation. No wheezes or rhonchi. No intercostal retractions. HEART: Regular rate and rhythm. No murmur. ABDOMEN: Soft. Bowel sounds are present. No masses. No tenderness. EXTREMITIES: No pedal edema. No calf tenderness. NEUROLOGICAL: Patient is awake, alert and oriented x3. Cranial nerves 2 through 12 are grossly intact. Please refer to medication reconciliation sheet for a list of medications. The impression and plan of care has been dictated by Haleigh Vergara, Nurse Practitioner as directed. Dr. Samir MD I have performed a history and examination and MDM of this patient, discussed the same with the dictator, and agree with the dictator's assessment and plan as written ,documented as a scribe. Based on total visit time, I have performed more than 50% of the visit. Patient Condition at Discharge: Fair Plan - Discharge Summary Discharge Rx Participant: Yes New Discharge Prescriptions: New Pantoprazole [Protonix] 40 mg PO DAILY #30 tab chlordiazePOXIDE HCl [Librium] 20 mg PO TID #6 cap Continue levETIRAcetam [Keppra] 500 mg PO BID cloNIDine HCL 0.1 mg PO BID No Action HYDROcodone/APAP 5-325MG [[place] 5-325] 1 tab PO Q4HR PRN 3 Days #18 tab PRN Reason: Pain Discharge Medication List levETIRAcetam [Keppra] 500 mg PO BID 10/23/20 [History] cloNIDine HCL 0.1 mg PO BID 09/03/21 [History] Pantoprazole [Protonix] 40 mg PO DAILY #30 tab 05/20/23 [Rx] chlordiazePOXIDE HCl [Librium] 20 mg PO TID #6 cap 05/20/23 [Rx] HYDROcodone/APAP 5-325MG [[place] 5-325] 1 tab PO Q4HR PRN 3 Days #18 tab 05/23/23 [Rx] Follow up Appointment(s)/Referral(s): Adam Olivas DO [STAFF PHYSICIAN] - 05/28/23 3:00 pm Henny Angel MD [Primary Care Provider] - 1-2 days Patient Instructions/Handouts: Chest Pain (GEN), Weakness (GEN) Activity/Diet/Wound Care/Special Instructions: Activity Limited until follow-up Follow-up with primary care provider on discharge Follow-up cardiology outpatient Follow-up GI outpatient as needed Recommend complete alcohol and tobacco cessation Continue taking medications as prescribed Discharge Disposition: HOME SELF-CARE
== END 2023-05-20 16:41 | disposition home or self-care (01) ==
LOC: EC 21:38 → 6NMEDSUR 05-19 01:55
PROVIDERS: ADMIT Hospitalist; ATTEND Hospitalist
DX: R07.89 Other chest pain (principal); F10.139 Alcohol abuse with withdrawal, unspecified; J44.9 Chronic obstructive pulmonary disease, unspecified; K83.8 Other specified diseases of biliary tract; G40.909 Epilepsy, unspecified, not intractable, without status epilepticus; I10 Essential (primary) hypertension; E44.1 Mild protein-calorie malnutrition; Z68.1 Body mass index [BMI] 19.9 or less, adult; I51.81 Takotsubo syndrome; K76.9 Liver disease, unspecified; I25.2 Old myocardial infarction; R53.1 Weakness; R42 Dizziness and giddiness; M54.9 Dorsalgia, unspecified; F41.9 Anxiety disorder, unspecified; F43.10 Post-traumatic stress disorder, unspecified; F31.9 Bipolar disorder, unspecified; F17.210 Nicotine dependence, cigarettes, uncomplicated; Z20.822 Contact with and (suspected) exposure to COVID-19; Z79.899 Other long term (current) drug therapy; Z88.0 Allergy status to penicillin; Z88.6 Allergy status to analgesic agent; Z88.8 Allergy status to other drugs, medicaments and biological substances; Z71.41 Alcohol abuse counseling and surveillance of alcoholic; Z86.79 Personal history of other diseases of the circulatory system; Z85.41 Personal history of malignant neoplasm of cervix uteri; Z98.51 Tubal ligation status; Z98.891 History of uterine scar from previous surgery; Z98.42 Cataract extraction status, left eye; Z71.6 Tobacco abuse counseling; Z98.41 Cataract extraction status, right eye; Z96.1 Presence of intraocular lens; Z89.021 Acquired absence of right finger(s); Z82.49 Family history of ischemic heart disease and other diseases of the circulatory system; Z80.0 Family history of malignant neoplasm of digestive organs; Z80.52 Family history of malignant neoplasm of bladder; Z84.2 Family history of other diseases of the genitourinary system
CPT/HCPCS: 96376 ×3; 96361 ×2; 96374; 96375 ×2; 99285; 36415; 94640; 93005 ×2; 93306; 93351; 85379; 83880; 80053 ×3; 80074; 82150; 83690 ×3; 83735 ×2; 84100; 84484 ×2; 85025 ×3; 85610; 85730; 87636; 71045 ×2; 74177; G0378 ×2; G0480; J2270; J2405; C9113 ×2; J1170 ×3; Q9967; 80320

== ENCOUNTER 2023-05-23 02:10 | Emergency (ER) | payer OTHER ==
[2023-05-23 04:28] LABS: Basophils % (A) 1 %; Eosinophils # (A) 0.1 k/uL (0-0.7); Eosinophils % (A) 1 %; HCT 41.5 % (34.0-46.0); HGB 14.2 gm/dL (11.4-16.0); Lymphocytes # (A) 1.9 k/uL (1.0-4.8); Lymphocytes % (A) 28 %; MCH 34.3 pg (25.0-35.0); MCHC 34.1 g/dL (31.0-37.0); MCV 100.4 fL (80.0-100.0); Mean Platelet Volume 7.5; Monocytes # (A) 0.7 k/uL (0-1.0); Monocytes % (A) 10 %; Neutrophils # (A) 3.8 k/uL (1.3-7.7); Neutrophils % (A) 57 %; Platelet Count 174 k/uL (150-450); RBC 4.13 m/uL (3.80-5.40); RDW 13.4 % (11.5-15.5); WBC 6.6 k/uL (3.8-10.6)
[2023-05-23] MEDS ORDERED: IBUPROFEN 400 MG TAB PO STA (04:36)
[2023-05-23] MEDS ORDERED: HYDROcodone/APAP 5-325MG 1 EACH TAB PO STA (04:36)
[2023-05-23 04:41] LABS: ALT 30 U/L (4-34); AST 66 U/L (14-36); African American GFR (CKD) >90 (>60 ml/min/1.73 sqM); Albumin 4.9 g/dL (3.5-5.0); Alkaline Phosphatase 72 U/L (38-126); Anion Gap 15 mmol/L; Blood Urea Nitrogen 4 mg/dL (7-17); Carbon Dioxide 20 mmol/L (22-30); Chloride 105 mmol/L (98-107); Glucose 95 mg/dL (74-99); Non-African American GFR(CKD) >90 (>60 ml/min/1.73 sqM); Sodium 140 mmol/L (137-145); Total Protein 7.8 g/dL (6.3-8.2)
[2023-05-23 04:46] LABS: Appearance,Urine Clear (Clear); Bilirubin,Urine Negative (Negative); Blood,Urine Negative (Negative); Color,Urine Yellow; Glucose,Urine (UA) Negative (Negative); Ketones,Urine Negative (Negative); Leukocyte Esterase,Urine Negative (Negative); Nitrite,Urine Negative (Negative); Protein,Urine Negative (Negative); Specific Gravity,Urine 1.005 (1.001-1.035); Urobilinogen,Urine <2.0 mg/dL (<2.0)
[2023-05-23 05:17] LABS: INR 0.9 (<1.2); Partial Thromboplastin Time 23.6 sec (22.0-30.0); Prothrombin Time 10.2 sec (10.0-12.5)
[2023-05-23 06:13] VITALS: TEMP 98.2
--- NOTE | 2023-05-23 06:44 | XR ---
EXAM: XR Right Ribs and AP Chest, 3 or More Views CLINICAL HISTORY: ITS.REASON XR Reason: rib pain TECHNIQUE: Frontal and oblique views of the right ribs and frontal view of the chest. COMPARISON: Correlation is made with CT abdomen and pelvis dated 05/23/2023. FINDINGS: Lungs: Unremarkable. No consolidation. Pleural space: Unremarkable. No pneumothorax. Heart: Unremarkable. No cardiomegaly. Mediastinum: Unremarkable. Normal mediastinal contour. Bones/joints: Minimally displaced right lateral seventh and eighth rib fractures. No acute fracture. IMPRESSION: Minimally displaced right lateral seventh and eighth rib fractures. No pneumothorax.
--- NOTE | 2023-05-23 06:45 | XR ---
EXAM: XR Chest, 2 Views CLINICAL HISTORY: ITS.REASON XR Reason: rib pain TECHNIQUE: Frontal and lateral views of the chest. COMPARISON: CT abdomen and pelvis dated 05/23/2023, right rib series dated 05/23/2023 FINDINGS: Lungs: Unremarkable. No consolidation. Pleural space: Unremarkable. No pneumothorax. Heart: Unremarkable. No cardiomegaly. Mediastinum: Unremarkable. Normal mediastinal contour. Bones/joints: Minimally displaced right lateral seventh and eighth rib fractures. IMPRESSION: 1. Minimally displaced right lateral seventh and eighth rib fractures are better visualized on CT abdomen and pelvis performed on same date. 2. No acute pulmonary process.
--- NOTE | 2023-05-23 06:50 | CT ---
EXAM: CT Abdomen and Pelvis With Intravenous Contrast CLINICAL HISTORY: ITS.REASON CT Reason: trauma, RUQ tenderness TECHNIQUE: Axial computed tomography images of the abdomen and pelvis with intravenous contrast. CTDI is 10.5 mGy and DLP is 482.3 mGy-cm. This CT exam was performed using one or more of the following dose reduction techniques: automated exposure control, adjustment of the mA and/or kV according to patient size, and/or use of iterative reconstruction technique. COMPARISON: 05/19/2023. FINDINGS: Lung bases: Minimally displaced right lateral seventh rib fractures. Subacute healing right lateral ninth and 10th rib fractures, unchanged from 05/19/2023. No mass. No consolidation. ABDOMEN: Liver: Unremarkable. No mass. Gallbladder and bile ducts: Unremarkable. No calcified stones. No ductal dilation. Pancreas: Unremarkable. No mass. No ductal dilation. Spleen: Unremarkable. No splenomegaly. Adrenals: Unremarkable. No mass. Kidneys and ureters: Unremarkable. No solid mass. No hydronephrosis. Stomach and bowel: Unremarkable. No obstruction. No mucosal thickening. PELVIS: Appendix: No findings to suggest acute appendicitis. Bladder: Unremarkable. No mass. Reproductive: Unremarkable as visualized. ABDOMEN and PELVIS: Intraperitoneal space: Unremarkable. No free air. No significant fluid collection. Bones/joints: No acute fracture. No dislocation. Soft tissues: Surgical clips in the right groin consistent with prior lymph node resection.. Vasculature: Unremarkable. No abdominal aortic aneurysm. Lymph nodes: Unremarkable. No enlarged lymph nodes. IMPRESSION: Acute minimally displaced right lateral seventh rib fractures. No pneumothorax.
--- NOTE | 2023-05-23 07:15 | ED ---
Fall HPI - General Chief Complaint: Fall Stated Complaint: Fall Time Seen by Provider: 05/23/23 03:15 Source: EMS Mode of arrival: EMS - History of Present Illness Initial Comments: This patient is a 57-year-old woman who presents 7 evaluation for left sided chest wall pain that developed after she had fallen. The patient states that she had been drinking tonight and was dancing. She states she tripped and fell to the side landing on a chair. She states that when the pain continued she felt she should be seen here. She denies head, neck, back or abdomen pain. No extremity injury. The patient states the pain is moderate but becomes severe when she takes a deep breath or touches her side. She denies dyspnea. No hemoptysis. 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 Fall Witnessed: yes, by family Place Fall Occurred: other Loss of Consciousness: none Prolonged Down Time?: no Symptoms Prior to Fall: none Location: chest Severity: moderate Quality: sharp Context: tripped/slipped, alcohol use Associated Symptoms: chest paint - Related Data Home Medications Medication Instructions Recorded Confirmed levETIRAcetam [Keppra] 500 mg PO BID 10/23/20 05/19/23 cloNIDine HCL 0.1 mg PO BID 09/03/21 05/19/23 Previous Rx's Medication Instructions Recorded Pantoprazole [Protonix] 40 mg PO DAILY #30 tab 05/20/23 chlordiazePOXIDE HCl [Librium] 20 mg PO TID #6 cap 05/20/23 HYDROcodone/APAP 5-325MG [[place] 1 tab PO Q4HR PRN 3 Days #18 tab 05/23/23 5-325] Allergies Allergy/AdvReac Type Severity Reaction Status Date / Time Penicillins Allergy Rash/Hives/Swelling Verified 05/23/23 02:18 all over body NSAIDS (Non-Steroidal AdvReac Unknown upset Verified 05/23/23 02:18 Anti-Inflamma stomach sertraline HCl [From Zoloft] AdvReac Suicidal/Ag Verified 05/23/23 02:18 ression Review of Systems ROS Statement: Those systems with pertinent positive or pertinent negative responses have been documented in the HPI. ROS Other: All systems not noted in ROS Statement are negative. Constitutional: Denies: fever, weakness Respiratory: Denies: cough, dyspnea, hemoptysis Cardiovascular: Reports: chest pain. Denies: palpitations, syncope Gastrointestinal: Denies: abdominal pain, vomiting, hematemesis Genitourinary: Denies: dysuria Musculoskeletal: Denies: back pain, arthralgia Skin: Denies: rash Neurological: Denies: headache, weakness Hematological/Lymphatic: Denies: easy bleeding Past Medical History Past Medical History: COPD, Liver Disease, Myocardial Infarction ([place]), Seizure Disorder, Vascular Disorder Additional Past Medical History / Comment(s): constpation, last bowel movement 4 days ago, feeling bloated,feeling of fullness, and abdominal pain, feels hungry then over eats then vomits to feel better, LAST SEIZURE - JANUARY 2021, "broken heart syndrome"., elevated liver enzymes, "dislocated disks", hx cervical cancer Last Myocardial Infarction Date:: 2019 History of Any Multi-Drug Resistant Organisms: None Reported Past Surgical History: Section, Heart Catheterization, Tubal Ligation Additional Past Surgical History / Comment(s): ORIF rt ankle/hardware later removed, exploratory lap, PAIN CLINIC PROCEDURE, BILAT CATARACTS REMOVED WITH LENS IMPLANTS, procedure to open a vein in left leg-couldn't confirm which leg, partial amputation rt hand middle finger, "procedure to remove cervical cancer" Past Anesthesia/Blood Transfusion Reactions: No Reported Reaction Past Psychological History: Anxiety, Bipolar, Depression, PTSD Smoking Status: Current every day smoker Past Alcohol Use History: Abuse, Heavy Past Drug Use History: Marijuana - Past Family History Father Family Medical History: Cancer, Prostate Disorder, Pulmonary Embolus Sister(s) Family Medical History: Cancer Brother(s) Family Medical History: Cancer Additional Family Medical History / Comment(s): colon and bladder General Exam Limitations: no limitations General appearance: alert, in no apparent distress, appears intoxicated Head exam: Present: atraumatic, normocephalic Eye exam: Present: normal appearance. Absent: scleral icterus, conjunctival injection Neck exam: Present: normal inspection, full ROM. Absent: tenderness Respiratory exam: Present: normal lung sounds bilaterally, chest wall tenderness. Absent: respiratory distress, wheezes, rales, rhonchi, stridor, accessory muscle use, decreased breath sounds Cardiovascular Exam: Present: regular rate, normal rhythm, normal heart sounds. Absent: systolic murmur, diastolic murmur, rubs, gallop GI/Abdominal exam: Present: soft, tenderness (There is moderate left upper abdominal tenderness, no rebound or guarding). Absent: distended, guarding, rebound, rigid, organomegaly, mass, pulsatile mass, hernia Extremities exam: Present: normal inspection, normal capillary refill. Absent: pedal edema, calf tenderness Back exam: Present: normal inspection. Absent: CVA tenderness (R), CVA tenderness (L), paraspinal tenderness, vertebral tenderness Neurological exam: Present: alert, oriented X3. Absent: motor sensory deficit Skin exam: Present: warm, dry, intact, normal color. Absent: rash Course Vital Signs 05/23/23 05/23/23 05/23/23 02:16 02:17 05:47 Temperature 98 F 98.4 F 98.2 F Pulse Rate 80 82 107 H Respiratory 18 18 22 Rate Blood Pressure 135/91 135/91 117/68 O2 Sat by Pulse 98 97 98 Oximetry 05/23/23 05/23/23 07:39 08:38 Temperature 98.2 F Pulse Rate 77 82 Respiratory 16 18 Rate Blood Pressure 97/55 90/58 O2 Sat by Pulse 99 98 Oximetry Medical Decision Making - Medical Decision Making The patient had chest and rib x-rays which do appear to show a nondisplaced rib fracture on the left side. The patient had moderate left upper abdominal tenderness and had CT of the abdomen to rule out splenic injury. I interpreted this as not showing liver or spleen injury. No hemoperitoneum. Was pt. sent in by a medical professional or institution (, PA, PICKING TECH, urgent care, hospital, or penitentiary...) When possible be specific @ -[No] Did you speak to anyone other than the patient for history (EMS, parent, family, police, friend...)? What history was obtained from this source @ -[No] Did you review nursing and triage notes (agree or disagree)? Why? @ -[I reviewed and agree with nursing and triage notes] Were old charts reviewed (outside hosp., previous admission, EMS record, old EKG, old radiological studies, urgent care reports/EKG's, penitentiary records)? Report findings @ -[No old charts were reviewed] Differential Diagnosis (chest pain, altered mental status, abdominal pain women, abdominal pain men, vaginal bleeding, weakness, fever, dyspnea, syncope, headache, dizziness, GI bleed, back pain, seizure, CVA, palpatations, mental health, musculoskeletal)? @ -[Differential Musculoskeletal Muscular strain, contusion, ligament sprain, fracture, arthritis, septic arthritis, bursitis, cellulitis, muscle spasm, nerve compression, DVT, arterial occlusion, herpes zoster, electrolyte abnormality, tumor.... This is not meant to be in all inclusive list EKG interpreted by me (3pts min.). @ -[As above] X-rays interpreted by me (1pt min.). @ -[I interpreted as above CT interpreted by me (1pt min.). @ -[I interpreted as above U/S interpreted by me (1pt. min.). @ -[None done] What testing was considered but not performed or refused? (CT, X-rays, U/S, labs)? Why? @ -[None] What meds were considered but not given or refused? Why? @ -[None] Did you discuss the management of the patient with other professionals (professionals i.e. , PA, PICKING TECH, lab, RT, psych nurse, psychosocial rehabilitation counselor, reconditioner, teacher, uniform patrol police officer, window caser)? Give summary @ -[No] Was smoking cessation discussed for >3mins.? @ -[No] Was critical care preformed (if so, how long)? @ -[No] Were there social determinants of health that impacted care today? How? (Homelessness, low income, unemployed, alcoholism, drug addiction, transportation, low edu. Level, literacy, decrease access to med. care, prison, rehab)? @ -[No] Was there de-escalation of care discussed even if they declined (Discuss DNR or withdrawal of care, Hospice)? DNR status @ -[No] What co-morbidities impacted this encounter? (DM, HTN, Smoking, COPD, CAD, Cancer, CVA, ARF, Chemo, Hep., AIDS, mental health diagnosis, sleep apnea, morbid obesity)? @ -[None] Was patient admitted / discharged? Hospital course, mention meds given and route, prescriptions, significant lab abnormalities, going to OR and other pertinent info. @ -[Patient is a 57-year-old woman who had fall with rib fracture. The patient at this point appears stable for outpatient treatment. She is counseled about rib fracture and possibility of developing pneumonia. She does have incentive spirometer from previous rib injury. We reviewed the use. Discussed further care and follow-up as well as return parameters. Undiagnosed new problem with uncertain prognosis? @ -[No] Drug Therapy requiring intensive monitoring for toxicity (Heparin, Nitro, Insulin, Cardizem)? @ -[No] Were any procedures done? @ -[No] Diagnosis/symptom? @ -[Acute rib fracture Acute, or Chronic, or Acute on Chronic? @ -[Acute Uncomplicated (without systemic symptoms) or Complicated (systemic symptoms)? @ -[Uncomplicated Side effects of treatment? @ -[No] Exacerbation, Progression, or Severe Exacerbation? @ -[No] Poses a threat to life or bodily function? How? (Chest pain, [place], [place], pneumonia, PE, COPD, DKA, ARF, appy, cholecystitis, CVA, Diverticulitis, Homicidal, Suicidal, threat to staff... and all critical care pts) @ -[No] - Lab Data Result diagrams: 05/23/23 04:10 05/23/23 04:10 Lab Results 05/23/23 05/23/23 05/23/23 Range/Units 04:10 04:10 04:10 WBC 6.6 (3.8-10.6) k/uL RBC 4.13 (3.80-5.40) m/uL Hgb 14.2 (11.4-16.0) gm/dL Hct 41.5 (34.0-46.0) % MCV 100.4 H (80.0-100.0) fL MCH 34.3 (25.0-35.0) pg MCHC 34.1 (31.0-37.0) g/dL RDW 13.4 (11.5-15.5) % Plt Count 174 (150-450) k/uL MPV 7.5 Neutrophils % 57 % Lymphocytes % 28 % Monocytes % 10 % Eosinophils % 1 % Basophils % 1 % Neutrophils # 3.8 (1.3-7.7) k/uL Lymphocytes # 1.9 (1.0-4.8) k/uL Monocytes # 0.7 (0-1.0) k/uL Eosinophils # 0.1 (0-0.7) k/uL Basophils # 0.0 (0-0.2) k/uL PT (10.0-12.5) sec INR (<1.2) APTT (22.0-30.0) sec Sodium 140 (137-145) mmol/L Potassium 6.0 H (3.5-5.1) mmol/L Chloride 105 (98-107) mmol/L Carbon Dioxide 20 L (22-30) mmol/L Anion Gap 15 mmol/L BUN 4 L (7-17) mg/dL Creatinine 0.33 L (0.52-1.04) mg/dL Est GFR (CKD-EPI)AfAm >90 (>60 ml/min/1.73 sqM) Est GFR (CKD-EPI)NonAf >90 (>60 ml/min/1.73 sqM) Glucose 95 (74-99) mg/dL Calcium 9.0 (8.4-10.2) mg/dL Total Bilirubin 1.0 (0.2-1.3) mg/dL AST 66 H (14-36) U/L ALT 30 (4-34) U/L Alkaline Phosphatase 72 (38-126) U/L Total Protein 7.8 (6.3-8.2) g/dL Albumin 4.9 (3.5-5.0) g/dL Urine Color Yellow Urine Appearance Clear (Clear) Urine pH 6.0 (5.0-8.0) Ur Specific [place] 1.005 (1.001-1.035) Urine Protein Negative (Negative) Urine Glucose (UA) Negative (Negative) Urine Ketones Negative (Negative) Urine Blood Negative (Negative) Urine Nitrite Negative (Negative) Urine Bilirubin Negative (Negative) Urine Urobilinogen <2.0 (<2.0) mg/dL Ur Leukocyte Esterase Negative (Negative) 05/23/23 Range/Units 04:45 WBC (3.8-10.6) k/uL RBC (3.80-5.40) m/uL Hgb (11.4-16.0) gm/dL Hct (34.0-46.0) % MCV (80.0-100.0) fL MCH (25.0-35.0) pg MCHC (31.0-37.0) g/dL RDW (11.5-15.5) % Plt Count (150-450) k/uL MPV Neutrophils % % Lymphocytes % % Monocytes % % Eosinophils % % Basophils % % Neutrophils # (1.3-7.7) k/uL Lymphocytes # (1.0-4.8) k/uL Monocytes # (0-1.0) k/uL Eosinophils # (0-0.7) k/uL Basophils # (0-0.2) k/uL PT 10.2 (10.0-12.5) sec INR 0.9 (<1.2) APTT 23.6 (22.0-30.0) sec Sodium (137-145) mmol/L Potassium (3.5-5.1) mmol/L Chloride (98-107) mmol/L Carbon Dioxide (22-30) mmol/L Anion Gap mmol/L BUN (7-17) mg/dL Creatinine (0.52-1.04) mg/dL Est GFR (CKD-EPI)AfAm (>60 ml/min/1.73 sqM) Est GFR (CKD-EPI)NonAf (>60 ml/min/1.73 sqM) Glucose (74-99) mg/dL Calcium (8.4-10.2) mg/dL Total Bilirubin (0.2-1.3) mg/dL AST (14-36) U/L ALT (4-34) U/L Alkaline Phosphatase (38-126) U/L Total Protein (6.3-8.2) g/dL Albumin (3.5-5.0) g/dL Urine Color Urine Appearance (Clear) Urine pH (5.0-8.0) Ur Specific [place] (1.001-1.035) Urine Protein (Negative) Urine Glucose (UA) (Negative) Urine Ketones (Negative) Urine Blood (Negative) Urine Nitrite (Negative) Urine Bilirubin (Negative) Urine Urobilinogen (<2.0) mg/dL Ur Leukocyte Esterase (Negative) Disposition Clinical Impression: Fall, Ribs, multiple fractures Disposition: HOME SELF-CARE Condition: Good Instructions (If sedation given, give patient instructions): Rib Fracture (ED), Fall Prevention for Older Adults (ED) Prescriptions: HYDROcodone/APAP 5-325MG [[place] 5-325] 1 tab PO Q4HR PRN 3 Days #18 tab PRN Reason: Pain Is patient prescribed a controlled substance at d/c from ED?: Yes When asked, does pt state using other controlled substances?: No If prescribed controlled substance>3 days was MAPS reviewed?: Prescribed <3 Days If opioid is for acute pain is fill amount 7 days or less?: Yes If Rx opioid, was Start Talking consent form obtained?: Yes Referrals: Henny Angel MD [Primary Care Provider] - 1-2 days
[2023-05-23] MEDS ORDERED: MORPHINE SULFATE 4 MG/ML SYRINGE IV STA (08:00)
[2023-05-23 09:00] VITALS: BP 90/58; PULSE 82; RESP 18
== END 2023-05-23 08:39 | disposition home or self-care (01) ==
LOC: EC 02:10
DX: S22.41XA Multiple fractures of ribs, right side, initial encounter for closed fracture (principal); J44.9 Chronic obstructive pulmonary disease, unspecified; I25.2 Old myocardial infarction; G40.909 Epilepsy, unspecified, not intractable, without status epilepticus; F17.200 Nicotine dependence, unspecified, uncomplicated; F12.90 Cannabis use, unspecified, uncomplicated; Z79.899 Other long term (current) drug therapy; Z88.0 Allergy status to penicillin; Z88.6 Allergy status to analgesic agent; Z88.8 Allergy status to other drugs, medicaments and biological substances; W01.0XXA Fall on same level from slipping, tripping and stumbling without subsequent striking against object, initial encounter; Y93.41 Activity, dancing; Y92.89 Other specified places as the place of occurrence of the external cause
CPT/HCPCS: 36415; 80053; 85025; 85610; 85730; 81003; 71100; 71046; 74177; 99285; 96374; J2270; Q9967

== ENCOUNTER 2023-06-21 21:56 | Emergency (ER) | payer OTHER ==
[2023-06-21 22:08] VITALS: BP 135/94; PULSE 53; RESP 20; TEMP 97.4
--- NOTE | 2023-06-21 22:37 | XR ---
EXAM: XR Chest, 2 Views CLINICAL HISTORY: ITS.REASON XR Reason: shortness of breath TECHNIQUE: Frontal and lateral views of the chest. COMPARISON: 05/23/2023 FINDINGS: Lungs: No consolidation. No overt edema. Pleural space: No pleural effusion. No pneumothorax. Heart: Unremarkable. No cardiomegaly. Bones/joints: Unremarkable. No fracture or malalignment. IMPRESSION: No acute cardiopulmonary abnormality.
[2023-06-21] MEDS: HYDROcodone/APAP 5-325MG 1 EACH TAB PO STA (23:35)
--- NOTE | 2023-08-09 08:46 | ED ---
General Adult HPI - General Chief complaint: Shortness of Breath Stated complaint: SOB Time Seen by Provider: 06/21/23 22:55 Source: patient Mode of arrival: EMS Limitations: no limitations - History of Present Illness Initial comments: This patient is a 57-year-old woman who presents to have evaluation for shortness of breath and for chest pain that has been going on for couple of weeks. The patient states she had fallen while dancing and had broken ribs. She does take Tenstrike but did not have any more that medication. Patient denies fever or chills. No purulent sputum or change in cough. -: week(s) Location: chest Radiation: non-radiation Quality: sharp Consistency: intermittent Improves with: immobilization Worsens with: movement Associated Symptoms: denies other symptoms Treatments Prior to Arrival: none - Related Data Home Medications Medication Instructions Recorded Confirmed levETIRAcetam [Keppra] 500 mg PO BID 10/23/20 08/02/23 cloNIDine HCL 0.1 mg PO BID 09/03/21 08/02/23 Diclofenac Sodium [Solaraze 3% Gel] 1 applic TOPICAL DAILY 08/02/23 08/02/23 Fluorometholone 0.1% Ophth Sharmin 1 drops BOTH EYES BID 08/02/23 08/02/23 [Fml] Loteprednol Etabonate [Alrex] 1 drop BOTH EYES BID 08/02/23 08/02/23 Multivitamins, Thera [Multivitamin 1 tab PO DAILY 08/02/23 08/02/23 (formulary)] Previous Rx's Medication Instructions Recorded Thiamine [Vitamin B-1] 100 mg PO DAILY #30 tablet 07/12/23 Enoxaparin [Lovenox] 40 mg SQ DAILY each 08/05/23 HYDROcodone/APAP 5-325MG [Tenstrike 0.5 each PO Q6HR PRN #4 tab 08/05/23 5-325] Magnesium Oxide [Mag-Ox] 400 mg PO DAILY #30 tablet 08/05/23 Nicotine 14Mg/24Hr Patch [Habitrol] 1 patch TRANSDERM DAILY patch 08/05/23 Potassium Chloride ER [K-Dur 20] 20 meq PO DAILY #30 tab 08/05/23 Allergies Allergy/AdvReac Type Severity Reaction Status Date / Time Penicillins Allergy Rash/Hives/Swelling Verified 02/19/24 17:20 all over body NSAIDS (Non-Steroidal AdvReac Unknown upset Verified 08/02/23 17:20 Anti-Inflamma stomach sertraline HCl [From Zoloft] AdvReac Suicidal/Ag Verified 08/02/23 17:20 ression Review of Systems ROS Statement: Those systems with pertinent positive or pertinent negative responses have been documented in the HPI. ROS Other: All systems not noted in ROS Statement are negative. Constitutional: Denies: fever, chills, weakness Respiratory: Reports: dyspnea. Denies: cough, wheezes, hemoptysis Cardiovascular: Reports: chest pain. Denies: palpitations, orthopnea, edema, syncope Gastrointestinal: Denies: abdominal pain, vomiting, diarrhea Genitourinary: Denies: dysuria, hematuria Musculoskeletal: Denies: back pain Skin: Denies: rash Neurological: Denies: headache, weakness, numbness Past Medical History Past Medical History: COPD, Liver Disease, [place]ocardial Infarction ([place]), Seizure Disorder, Vascular Disorder Additional Past Medical History / Comment(s): constpation, last bowel movement 4 days ago, feeling bloated,feeling of fullness, and abdominal pain, feels hungry then over eats then vomits to feel better, LAST SEIZURE - JANUARY 2021, "broken heart syndrome"., elevated liver enzymes, "dislocated disks", hx cervical cancer Last Myocardial Infarction Date:: 2019 History of Any Multi-Drug Resistant Organisms: None Reported Past Surgical History: Section, Heart Catheterization, Tubal Ligation Additional Past Surgical History / Comment(s): ORIF rt ankle/hardware later removed, exploratory lap, PAIN CLINIC PROCEDURE, BILAT CATARACTS REMOVED WITH LENS IMPLANTS, procedure to open a vein in left leg-couldn't confirm which leg, partial amputation rt hand middle finger, "procedure to remove cervical cancer" Past Anesthesia/Blood Transfusion Reactions: No Reported Reaction Past Psychological History: Anxiety, Bipolar, Depression, PTSD Smoking Status: Current every day smoker Past Alcohol Use History: Abuse, Heavy Past Drug Use History: Marijuana - Past Family History Father Family Medical History: Cancer, Prostate Disorder, Pulmonary Embolus Sister(s) Family Medical History: Cancer Brother(s) Family Medical History: Cancer Additional Family Medical History / Comment(s): colon and bladder General Exam Limitations: no limitations General appearance: alert, in no apparent distress Head exam: Present: atraumatic, normocephalic Eye exam: Present: normal appearance. Absent: scleral icterus, conjunctival injection Neck exam: Present: normal inspection, full ROM. Absent: tenderness Respiratory exam: Present: normal lung sounds bilaterally, chest wall tenderness. Absent: respiratory distress, wheezes, rales, rhonchi, stridor, accessory muscle use Cardiovascular Exam: Present: normal rhythm, bradycardia, normal heart sounds. Absent: systolic murmur, diastolic murmur, rubs, gallop GI/Abdominal exam: Present: soft. Absent: distended, tenderness, guarding, rebound, rigid, mass Extremities exam: Present: normal inspection, normal capillary refill. Absent: pedal edema, calf tenderness Back exam: Present: normal inspection. Absent: CVA tenderness (R), CVA tenderness (L), vertebral tenderness Neurological exam: Present: alert Skin exam: Present: warm, dry, intact, normal color. Absent: rash Course Vital Signs 06/21/23 21:58 Temperature 97.4 F L Pulse Rate 53 L Respiratory 20 Rate Blood Pressure 135/94 O2 Sat by Pulse 99 Oximetry Medical Decision Making - Medical Decision Making The patient had chest x-ray which I interpreted as negative for acute infiltrate, pneumothorax, congestive heart failure. Was pt. sent in by a medical professional or institution (, PA, HEBREW PROFESSOR, urgent care, hospital, or snf...) When possible be specific @ -[No] Did you speak to anyone other than the patient for history (EMS, parent, family, police, friend...)? What history was obtained from this source @ -[No] Did you review nursing and triage notes (agree or disagree)? Why? @ -[I reviewed and agree with nursing and triage notes] Were old charts reviewed (outside hosp., previous admission, EMS record, old EKG, old radiological studies, urgent care reports/EKG's, snf records)? Report findings @ -[No old charts were reviewed] Differential Diagnosis (chest pain, altered mental status, abdominal pain women, abdominal pain men, vaginal bleeding, weakness, fever, dyspnea, syncope, headache, dizziness, GI bleed, back pain, seizure, CVA, palpatations, mental health, musculoskeletal)? @ -[Differential Chest Pain: Stable Angina, Unstable Angina, STEMI, NSTEMI Aortic Dissection, Pneumothorax, Musculoskeletal, Esophageal Spasm GERD, Cholecystitis, Pancreatitis, Zoster, this is not meant to be an all-inclusive list. EKG interpreted by me (3pts min.). @ -[ X-rays interpreted by me (1pt min.). @ -[I interpreted as above CT interpreted by me (1pt min.). @ -[None done] U/S interpreted by me (1pt. min.). @ -[None done] What testing was considered but not performed or refused? (CT, X-rays, U/S, labs)? Why? @ -[None] What meds were considered but not given or refused? Why? @ -[None] Did you discuss the management of the patient with other professionals (professionals i.e. , PA, HEBREW PROFESSOR, lab, RT, psych nurse, social research assistant, director of religious activities, teacher, tactical intelligence officer, case finisher)? Give summary @ -[No] Was smoking cessation discussed for >3mins.? @ -[No] Was critical care preformed (if so, how long)? @ -[No] Were there social determinants of health that impacted care today? How? (Homelessness, low income, unemployed, alcoholism, drug addiction, transportation, low edu. Level, literacy, decrease access to med. care, nursing home, rehab)? @ -[No] Was there de-escalation of care discussed even if they declined (Discuss DNR or withdrawal of care, Hospice)? DNR status @ -[No] What co-morbidities impacted this encounter? (DM, HTN, Smoking, COPD, CAD, Cancer, CVA, ARF, Chemo, Hep., AIDS, mental health diagnosis, sleep apnea, morbid obesity)? @ -[None] Was patient admitted / discharged? Hospital course, mention meds given and route, prescriptions, significant lab abnormalities, going to OR and other pertinent info. @ -[Patient is a 57-year-old woman to have reevaluation following suspected rib fracture. The patient did receive Tenstrike. She is requesting injection pain medication but no current indication. Undiagnosed new problem with uncertain prognosis? @ -[No] Drug Therapy requiring intensive monitoring for toxicity (Heparin, Nitro, Insulin, Cardizem)? @ -[No] Were any procedures done? @ -[No] Diagnosis/symptom? @ -[Acute chest wall pain Acute, or Chronic, or Acute on Chronic? @ -[Acute Uncomplicated (without systemic symptoms) or Complicated (systemic symptoms)? @ -[Uncomplicated Side effects of treatment? @ -[No] Exacerbation, Progression, or Severe Exacerbation? @ -[No] Poses a threat to life or bodily function? How? (Chest pain, [place], [place], pneumonia, PE, COPD, DKA, ARF, appy, cholecystitis, CVA, Diverticulitis, Homicidal, Suicidal, threat to staff... and all critical care pts) @ -[No] Disposition Clinical Impression: Chest wall pain Disposition: LEFT AGAINST MEDICAL ADVICE Condition: Fair Is patient prescribed a controlled substance at d/c from ED?: No Referrals: Henny Angel MD [Primary Care Provider] - 1-2 days
== END 2023-06-21 23:46 | disposition left against medical advice (07) ==
LOC: EC 21:56
DX: R07.89 Other chest pain (principal); J44.9 Chronic obstructive pulmonary disease, unspecified; I25.2 Old myocardial infarction; F12.90 Cannabis use, unspecified, uncomplicated; F17.200 Nicotine dependence, unspecified, uncomplicated; Z86.59 Personal history of other mental and behavioral disorders; Z88.0 Allergy status to penicillin; Z88.8 Allergy status to other drugs, medicaments and biological substances; Z88.6 Allergy status to analgesic agent; Z53.29 Procedure and treatment not carried out because of patient's decision for other reasons
CPT/HCPCS: 71046; 99285

== ENCOUNTER 2023-07-11 23:44 | Emergency (ER) | payer OTHER ==
[2023-07-12 00:40] VITALS: RESP 18
--- NOTE | 2023-07-12 05:32 | ED ---
General Adult HPI - General Chief complaint: Recheck/Abnormal Lab/Rx Stated complaint: Numbness tingling Time Seen by Provider: 07/12/23 04:58 Source: EMS Mode of arrival: EMS Limitations: no limitations - History of Present Illness Initial comments: Zuri is a 57-year-old female with history of chronic alcohol abuse she had a fall in May resulting in some rib fractures. Patient states that since that time she's developed what she describes as numbness is started in her legs that now she feels like she is numb from her chest down. Patient cannot describe what she means by numbness she states that if she is not rubbing her skin she can't feel it but she can feel it if she rubs her scan or touches it. She has continued pain in her ribs from the fractures and needs pain medications. She states that she is ALLERGIC to NSAIDs she can't swallow pills well and then [email or web address] did not work for her - Related Data Home Medications Medication Instructions Recorded Confirmed levETIRAcetam [Keppra] 500 mg PO BID 10/23/20 05/19/23 cloNIDine HCL 0.1 mg PO BID 09/03/21 05/19/23 Previous Rx's Medication Instructions Recorded Pantoprazole [Protonix] 40 mg PO DAILY #30 tab 05/20/23 chlordiazePOXIDE HCl [Librium] 20 mg PO TID #6 cap 05/20/23 HYDROcodone/APAP 5-325MG [[place] 1 tab PO Q4HR PRN 3 Days #18 tab 05/23/23 5-325] Lidocaine 5% Patch [Lidoderm] 1 each TP DAILY #15 patch 07/12/23 Multivitamin [Multivitamins Adult 1 each PO DAILY #30 tablet 07/12/23 Gummies] Thiamine [Vitamin B-1] 100 mg PO DAILY #30 tablet 07/12/23 Allergies Allergy/AdvReac Type Severity Reaction Status Date / Time Penicillins Allergy Rash/Hives/Swelling Verified 07/12/23 00:34 all over body NSAIDS (Non-Steroidal AdvReac Unknown upset Verified 07/12/23 00:34 Anti-Inflamma stomach sertraline HCl [From Zoloft] AdvReac Suicidal/Ag Verified 07/12/23 00:34 ression Review of Systems ROS Statement: Those systems with pertinent positive or pertinent negative responses have been documented in the HPI. ROS Other: All systems not noted in ROS Statement are negative. Past Medical History Past Medical History: COPD, Liver Disease, Myocardial Infarction ([place]), Seizure Disorder, Vascular Disorder Additional Past Medical History / Comment(s): constpation, last bowel movement 4 days ago, feeling bloated,feeling of fullness, and abdominal pain, feels hungry then over eats then vomits to feel better, LAST SEIZURE - JANUARY 2021, "broken heart syndrome"., elevated liver enzymes, "dislocated disks", hx cervical cancer Last Myocardial Infarction Date:: 2019 History of Any Multi-Drug Resistant Organisms: None Reported Past Surgical History: Section, Heart Catheterization, Tubal Ligation Additional Past Surgical History / Comment(s): ORIF rt ankle/hardware later removed, exploratory lap, PAIN CLINIC PROCEDURE, BILAT CATARACTS REMOVED WITH LENS IMPLANTS, procedure to open a vein in left leg-couldn't confirm which leg, partial amputation rt hand middle finger, "procedure to remove cervical cancer" Past Anesthesia/Blood Transfusion Reactions: No Reported Reaction Past Psychological History: Anxiety, Bipolar, Depression, PTSD Smoking Status: Current every day smoker Past Alcohol Use History: Abuse, Heavy Past Drug Use History: Marijuana - Past Family History Father Family Medical History: Cancer, Prostate Disorder, Pulmonary Embolus Sister(s) Family Medical History: Cancer Brother(s) Family Medical History: Cancer Additional Family Medical History / Comment(s): colon and bladder General Exam Limitations: no limitations General appearance: alert, other (chronically ill appearing, underweight) Head exam: Present: atraumatic Eye exam: Present: PERRL ENT exam: Present: normal exam Respiratory exam: Present: normal lung sounds bilaterally, chest wall tenderness Cardiovascular Exam: Present: regular rate GI/Abdominal exam: Present: soft. Absent: distended Rectal exam: Present: deferred Neurological exam: Present: alert, oriented X3 Skin exam: Present: warm, dry Course Vital Signs 07/12/23 07/12/23 07/12/23 00:32 06:13 07:29 Temperature 97.9 F 98.2 F 98.4 F Pulse Rate 94 74 89 Respiratory 18 18 18 Rate Blood Pressure 165/102 151/96 141/91 O2 Sat by Pulse 98 98 98 Oximetry Medical Decision Making - Medical Decision Making Was pt. sent in by a medical professional or institution (Dr., PA, MINING ANALYST, urgent care, hospital, or care home...) When possible be specific @ -No Did you speak to anyone other than the patient for history (EMS, parent, family, police, friend...)? What history was obtained from this source @ -No Did you review nursing and triage notes (agree or disagree)? Why? @ -I reviewed and agree with nursing and triage notes Were old charts reviewed (outside hosp., previous admission, EMS record, old EKG, old radiological studies, urgent care reports/EKG's, care home records)? Report findings @ -Previous ER visits and hospitalizations were reviewed and Differential Diagnosis (chest pain, altered mental status, abdominal pain women, abdominal pain men, vaginal bleeding, weakness, fever, dyspnea, syncope, headache, dizziness, GI bleed, back pain, seizure, CVA, palpatations, mental health)? @ -Differential includes neuropathy, vitamin deficiency, spinal cord injury EKG interpreted by me (3pts min.). @ -As above X-rays interpreted by me (1pt min.). @ -None done CT interpreted by me (1pt min.). @ -None done U/S interpreted by me (1pt. min.). @ -None done What testing was considered but not performed or refused? (CT, X-rays, U/S, labs)? Why? @ -None What meds were considered but not given or refused? Why? @ -None Did you discuss the management of the patient with other professionals (professionals i.e. BENI Dill, MINING ANALYST, lab, RT, psych nurse, high school social studies tutor, hand profiler, teacher, antisubmarine weapons officer, case operator)? Give summary @ -No Was smoking cessation discussed for >3mins.? @ -No Was critical care preformed (if so, how long)? @ -No Were there social determinants of health that impacted care today? How? (Homelessness, low income, unemployed, alcoholism, drug addiction, transportation, low edu. Level, literacy, decrease access to med. care, prison, rehab)? @ -Alcoholism Was there de-escalation of care discussed even if they declined (Discuss DNR or withdrawal of care, Hospice)? DNR status @ -No What co-morbidities impacted this encounter? (DM, HTN, Smoking, COPD, CAD, Cancer, CVA, ARF, Chemo, Hep., AIDS, mental health diagnosis, sleep apnea, morbid obesity)? @ -None Was patient admitted / discharged? Hospital course, mention meds given and route, prescriptions, significant lab abnormalities, going to OR and other pertinent info. @ -Discharged The patient was seen and evaluated. Patient reports numbness from her chest down though she reports normal sensation when she is touch just numbness when she is not being touched. Patient appears chronically ill and malnourished, she is underweight, she has normal sensation to touch. I did discuss with the patient the possibility of vitamin deficiency resulting in a her numbness. I recommended supplementing thiamine and follow-up with her primary care for reevaluation of blood work with macrocytosis. These instructions are provided upon discharge Undiagnosed new problem with uncertain prognosis? @ -No Drug Therapy requiring intensive monitoring for toxicity (Heparin, Nitro, Insulin, Cardizem)? @ -No Were any procedures done? @ -No Diagnosis/symptom? @ Macrocytosis without anemia Acute, or Chronic, or Acute on Chronic? @ -default Uncomplicated (without systemic symptoms) or Complicated (systemic symptoms)? @ -default Side effects of treatment? @ -No Exacerbation, Progression, or Severe Exacerbation? @ -No Poses a threat to life or bodily function? How? (Chest pain, [place], [place], pneumonia, PE, COPD, DKA, ARF, appy, cholecystitis, CVA, Diverticulitis, Homicidal, Suicidal, threat to staff... and all critical care pts) @ -No Diagnosis/symptom? @ Alcoholism Acute, or Chronic, or Acute on Chronic? @ Chronic Uncomplicated (without systemic symptoms) or Complicated (systemic symptoms)? @ Complicated Side effects of treatment? @ -none Exacerbation, Progression, or Severe Exacerbation] @ -no Poses a threat to life or bodily function? @ Is associated with higher mortality - Lab Data Result diagrams: 07/12/23 05:55 07/12/23 05:55 Lab Results 07/12/23 07/12/23 Range/Units 05:55 05:55 WBC 4.8 (3.8-10.6) k/uL RBC 4.30 (3.80-5.40) m/uL Hgb 15.6 (11.4-16.0) gm/dL Hct 44.0 (34.0-46.0) % MCV 102.3 H (80.0-100.0) fL MCH 36.2 H (25.0-35.0) pg MCHC 35.4 (31.0-37.0) g/dL RDW 13.5 (11.5-15.5) % Plt Count 205 (150-450) k/uL MPV 7.0 Neutrophils % 45 % Lymphocytes % 36 % Monocytes % 14 % Eosinophils % 1 % Basophils % 1 % Neutrophils # 2.2 (1.3-7.7) k/uL Lymphocytes # 1.8 (1.0-4.8) k/uL Monocytes # 0.7 (0-1.0) k/uL Eosinophils # 0.0 (0-0.7) k/uL Basophils # 0.0 (0-0.2) k/uL Macrocytosis Slight Sodium 138 (137-145) mmol/L Potassium 3.5 (3.5-5.1) mmol/L Chloride 104 (98-107) mmol/L Carbon Dioxide 22 (22-30) mmol/L Anion Gap 12 mmol/L BUN 3 L (7-17) mg/dL Creatinine 0.31 L (0.52-1.04) mg/dL Est GFR (CKD-EPI)AfAm >90 (>60 ml/min/1.73 sqM) Est GFR (CKD-EPI)NonAf >90 (>60 ml/min/1.73 sqM) Glucose 94 (74-99) mg/dL Calcium 8.6 (8.4-10.2) mg/dL Total Bilirubin 0.4 (0.2-1.3) mg/dL AST 50 H (14-36) U/L ALT 26 (4-34) U/L Alkaline Phosphatase 80 (38-126) U/L Total Protein 6.6 (6.3-8.2) g/dL Albumin 4.0 (3.5-5.0) g/dL Disposition Clinical Impression: Alcohol abuse, Macrocytosis without anemia Disposition: HOME SELF-CARE Condition: Stable Additional Instructions: I suspect your numbness is due to vitamin B1 deficiency, I recommend supplementation and decreasing alcohol intake Follow up with your regular doctor after taking supplement for 1 month to have repeat bloodwork and assess if macrocytosis is improving Prescriptions: Lidocaine 5% Patch [Lidoderm] 1 each TP DAILY #15 patch Multivitamin [Multivitamins Adult Gummies] 1 each PO DAILY #30 tablet Thiamine [Vitamin B-1] 100 mg PO DAILY #30 tablet Is patient prescribed a controlled substance at d/c from ED?: No Referrals: Henny Angel MD [Primary Care Provider] - 1-2 days
[2023-07-12] MEDS ORDERED: KETOROLAC 15 MG/ML 1 ML VIAL IVP STA (05:35)
[2023-07-12] MEDS ORDERED: ACETAMINOPHEN IV (For NPO) 600 MG in EMPTY BAG 1 BAG IVPB STA (05:36)
[2023-07-12 06:19] LABS: Basophils % (A) 1 %; Eosinophils % (A) 1 %; HGB 15.6 gm/dL (11.4-16.0); Lymphocytes # (A) 1.8 k/uL (1.0-4.8); Lymphocytes % (A) 36 %; MCH 36.2 pg (25.0-35.0); MCHC 35.4 g/dL (31.0-37.0); MCV 102.3 fL (80.0-100.0); Macrocytosis Slight; Monocytes # (A) 0.7 k/uL (0-1.0); Monocytes % (A) 14 %; Neutrophils # (A) 2.2 k/uL (1.3-7.7); Neutrophils % (A) 45 %; Platelet Count 205 k/uL (150-450); RDW 13.5 % (11.5-15.5); WBC 4.8 k/uL (3.8-10.6)
[2023-07-12 06:30] LABS: Potassium 3.5 mmol/L (3.5-5.1)
[2023-07-12 06:31] LABS: ALT 26 U/L (4-34); AST 50 U/L (14-36); African American GFR (CKD) >90 (>60 ml/min/1.73 sqM); Alkaline Phosphatase 80 U/L (38-126); Anion Gap 12 mmol/L; Blood Urea Nitrogen 3 mg/dL (7-17); Calcium 8.6 mg/dL (8.4-10.2); Carbon Dioxide 22 mmol/L (22-30); Chloride 104 mmol/L (98-107); Glucose 94 mg/dL (74-99); Non-African American GFR(CKD) >90 (>60 ml/min/1.73 sqM); Sodium 138 mmol/L (137-145); Total Bilirubin 0.4 mg/dL (0.2-1.3); Total Protein 6.6 g/dL (6.3-8.2)
[2023-07-12] MEDS ORDERED: THIAMINE 100 MG/ML 2 ML VIAL IM STA (06:37)
[2023-07-12 07:45] VITALS: BP 141/91; PULSE 89; TEMP 98.4
== END 2023-07-12 07:30 | disposition home or self-care (01) ==
LOC: EC 23:44
DX: F10.10 Alcohol abuse, uncomplicated (principal); D75.89 Other specified diseases of blood and blood-forming organs; J44.9 Chronic obstructive pulmonary disease, unspecified; I25.2 Old myocardial infarction; F17.200 Nicotine dependence, unspecified, uncomplicated; F12.90 Cannabis use, unspecified, uncomplicated; Z86.59 Personal history of other mental and behavioral disorders; Z88.0 Allergy status to penicillin; Z88.6 Allergy status to analgesic agent; Z88.8 Allergy status to other drugs, medicaments and biological substances; Y90.0 Blood alcohol level of less than 20 mg/100 ml
CPT/HCPCS: 36415; 80053; 85025; 99284; 96374; 96375; 96372; J3411; J0131; J1885

== ENCOUNTER 2023-08-02 13:39 | Inpatient (IN) | payer OTHER ==
--- NOTE | 2023-08-02 13:58 | ED ---
Fall HPI - General Source: patient, RN notes reviewed Mode of arrival: EMS Limitations: no limitations - History of Present Illness MD Complaint: fall <Nereyda Black - Last Filed: 08/02/23 15:36> <Qing Salmon - Last Filed: 08/02/23 18:26> - General Chief Complaint: Fall Stated Complaint: FALL Time Seen by Provider: 08/02/23 13:43 - History of Present Illness Initial Comments: This is a 57-year-old female who presents to the emergency department for a fall. Patient's friend is at bedside, and states that his apartment is next to hers. He heard a thud and went to check on her. He found her face down on the ground after a fall. Believes that she may have had a temporary loss of consciousness as she was slow to respond afterwards. Patient is not taking any blood thinners. She is unsure what may have triggered the fall. States that she may have had a seizure, which she has a history of. Currently taking Keppra for management of the seizures, which she states she is compliant with. She does admit to drinking 4 beers today, which is what she typically drinks daily. Currently complaining of pain to the left shoulder and left side of the neck. Also states that her body from the chest down feels "numb". (Nereyda Black) - Related Data Home Medications Medication Instructions Recorded Confirmed levETIRAcetam [Keppra] 500 mg PO BID 10/23/20 08/02/23 cloNIDine HCL 0.1 mg PO BID 09/03/21 08/02/23 Diclofenac Sodium [Solaraze 3% Gel] 1 applic TOPICAL DAILY 08/02/23 08/02/23 Fluorometholone 0.1% Ophth Sharmin 1 drops BOTH EYES BID 08/02/23 08/02/23 [Fml] Loteprednol Etabonate [Alrex] 1 drop BOTH EYES BID 08/02/23 08/02/23 Multivitamins, Thera [Multivitamin 1 tab PO DAILY 08/02/23 08/02/23 (formulary)] Previous Rx's Medication Instructions Recorded Thiamine [Vitamin B-1] 100 mg PO DAILY #30 tablet 07/12/23 Allergies Allergy/AdvReac Type Severity Reaction Status Date / Time Penicillins Allergy Rash/Hives/Swelling Verified 08/02/23 17:20 all over body NSAIDS (Non-Steroidal AdvReac Unknown upset Verified 08/02/23 17:20 Anti-Inflamma stomach sertraline HCl [From Zoloft] AdvReac Suicidal/Ag Verified 08/02/23 17:20 ression Review of Systems ROS Other: All systems not noted in ROS Statement are negative. <Nereyda Black - Last Filed: 08/02/23 15:36> ROS Other: All systems not noted in ROS Statement are negative. <Qing Salmon - Last Filed: 08/02/23 18:26> ROS Statement: Those systems with pertinent positive or pertinent negative responses have been documented in the HPI. Past Medical History Past Medical History: COPD, Liver Disease, Myocardial Infarction ([place]), Seizure Disorder, Vascular Disorder Additional Past Medical History / Comment(s): constpation, last bowel movement 4 days ago, feeling bloated,feeling of fullness, and abdominal pain, feels hungry then over eats then vomits to feel better, LAST SEIZURE - JANUARY 2021, "broken heart syndrome"., elevated liver enzymes, "dislocated disks", hx cervical cancer Last Myocardial Infarction Date:: 2019 History of Any Multi-Drug Resistant Organisms: None Reported Past Surgical History: Section, Heart Catheterization, Tubal Ligation Additional Past Surgical History / Comment(s): ORIF rt ankle/hardware later removed, exploratory lap, PAIN CLINIC PROCEDURE, BILAT CATARACTS REMOVED WITH LENS IMPLANTS, procedure to open a vein in left leg-couldn't confirm which leg, partial amputation rt hand middle finger, "procedure to remove cervical cancer" Past Anesthesia/Blood Transfusion Reactions: No Reported Reaction Past Psychological History: Anxiety, Bipolar, Depression, PTSD Smoking Status: Current every day smoker Past Alcohol Use History: Abuse, Daily, Heavy Past Drug Use History: Marijuana - Past Family History Father Family Medical History: Cancer, Prostate Disorder, Pulmonary Embolus Sister(s) Family Medical History: Cancer Brother(s) Family Medical History: Cancer Additional Family Medical History / Comment(s): colon and bladder <Nereyda Black - Last Filed: 08/02/23 15:36> General Exam Limitations: no limitations General appearance: alert, appears intoxicated Head exam: Present: atraumatic, normocephalic, normal inspection Respiratory exam: Present: normal lung sounds bilaterally. Absent: respiratory distress, wheezes, rales, rhonchi, stridor Cardiovascular Exam: Present: regular rate, normal rhythm, normal heart sounds. Absent: systolic murmur, diastolic murmur, rubs, gallop, clicks GI/Abdominal exam: Present: soft, normal bowel sounds. Absent: distended, tenderness, guarding, rebound, rigid Extremities exam: Present: other (Tenderness to palpation over the left shoulder with deformity. ROM limited by pain. 2+ radial pulses.) Neurological exam: Present: alert, oriented X3, CN II-XII intact Psychiatric exam: Present: normal affect, normal mood Skin exam: Present: warm, dry, intact, normal color. Absent: rash <Nereyda Black - Last Filed: 08/02/23 15:36> Course Vital Signs 08/02/23 13:42 Temperature 98.0 F Pulse Rate 83 Respiratory 18 Rate Blood Pressure 171/87 O2 Sat by Pulse 98 Oximetry Medical Decision Making - Lab Data Result diagrams: 08/02/23 13:58 08/02/23 13:58 - Radiology Data Radiology results: report reviewed, image reviewed <Nereyda Black - Last Filed: 08/02/23 15:36> - Lab Data Result diagrams: 08/02/23 13:58 08/02/23 13:58 <Qing Salmon - Last Filed: 08/02/23 18:26> - Medical Decision Making This is a 57-year-old female who presents to the emergency department for a fall. Was pt. sent in by a medical professional or institution? @ -No Did you speak to anyone other than the patient for history? @ -EMS and friend at bedside provide the majority of the history. Did you review nursing and triage notes? @ -Yes, and I agree, it is accurate with regards to the patient's symptoms. Were old charts reviewed? @ -No Differential Diagnosis? @ -Differential Musculoskeletal: Muscular strain, contusion, ligament sprain, fracture, arthritis, septic arthritis, bursitis, cellulitis, muscle spasm, nerve compression, DVT, arterial occlusion, herpes zoster, electrolyte abnormality, tumor.... This is not meant to be in all inclusive list EKG interpreted by me (3pts min.)? @ -EKG interpreted by me demonstrating the following: Sinus rhythm. Ventricular rate 82 BPM, TN interval 146 ms, QRS duration 85 ms, QTc 434 ms. X-rays interpreted by me (1pt min.)? @ -Pending at case sign out CT interpreted by me (1pt min.)? @ -Pending at case sign out U/S interpreted by me (1pt. min.)? @ -Not obtained What testing was considered but not performed? (CT, X-rays, U/S, labs)? Why? @ -None What meds were considered but not given? Why? @ -None Did you discuss the management of the patient with other professionals? @ -No Did you reconcile home meds? @ -No Was smoking cessation discussed for >3mins.? @ -No Was critical care preformed (if so, how long)? @ -No Were there social determinants of health that impacted care today? How? (Homelessness, low income, unemployed, alcoholism, drug addiction, transportation, low edu. Level, literacy, decrease access to med. care, usp, rehab)? @ -Alcoholism, contributing to the patient's frequent falls. Was there de-escalation of care discussed even if they declined? (Discuss DNR or withdrawal of care, Hospice)? @ -No What co-morbidities impacted this encounter? (DM, HTN, Smoking, COPD, CAD, Cancer, CVA, Hep., AIDS, mental health diagnosis, sleep apnea, morbid obesity)? @ -Seizure disorder, alcohol abuse Was patient admitted / discharged? @ -Admitted. Alcohol level critically elevated at 474. UDS positive for marij uana. CT scan of the brain and c-spine and x-ray of the left shoulder ordered. Case signed out to Qing Salmon PA-C at shift completion pending imaging results. Undiagnosed new problem with uncertain prognosis? @ -None Drug Therapy requiring intensive monitoring for toxicity (Heparin, Nitro, Insulin, Cardizem)? @ -None Were any procedures done? @ -None (Nereyda Black) Case was signed out to me at shift change. Alcohol elevated at 474. Patient is a daily drinker. She does have history of DTs. CT brain and C-spine show no acute intracranial hemorrhage, mass effect or C-spine fracture. X-ray of the left shoulder and chest x-ray showed no acute fractures or cardiopulmonary process. Patient will be admitted for significant alcohol intoxication. Case discussed with [facility] who is accepting of the admission. CIWA scale implemented. (Qing Salmon) - Lab Data Lab Results 08/02/23 08/02/23 08/02/23 Range/Units 13:58 13:58 13:58 WBC 4.6 (3.8-10.6) k/uL RBC 4.54 (3.80-5.40) m/uL Hgb 16.1 H (11.4-16.0) gm/dL Hct 47.7 H (34.0-46.0) % MCV 105.2 H (80.0-100.0) fL MCH 35.5 H (25.0-35.0) pg MCHC 33.7 (31.0-37.0) g/dL RDW 13.2 (11.5-15.5) % Plt Count 132 L (150-450) k/uL MPV 7.5 Neutrophils % 30 % Lymphocytes % 54 % Monocytes % 10 % Eosinophils % 1 % Basophils % 1 % Neutrophils # 1.4 (1.3-7.7) k/uL Lymphocytes # 2.5 (1.0-4.8) k/uL Monocytes # 0.5 (0-1.0) k/uL Eosinophils # 0.1 (0-0.7) k/uL Basophils # 0.0 (0-0.2) k/uL Macrocytosis Slight Sodium 140 (137-145) mmol/L Potassium 3.9 (3.5-5.1) mmol/L Chloride 109 H (98-107) mmol/L Carbon Dioxide 20 L (22-30) mmol/L Anion Gap 11 mmol/L BUN 2 L (7-17) mg/dL Creatinine 0.32 L (0.52-1.04) mg/dL Est GFR (CKD-EPI)AfAm >90 (>60 ml/min/1.73 sqM) Est GFR (CKD-EPI)NonAf >90 (>60 ml/min/1.73 sqM) Glucose 109 H (74-99) mg/dL Plasma Lactic Acid Anthony (0.7-2.0) mmol/L Calcium 8.6 (8.4-10.2) mg/dL Magnesium 1.7 (1.6-2.3) mg/dL Total Bilirubin 0.5 (0.2-1.3) mg/dL AST 94 H (14-36) U/L ALT 37 H (4-34) U/L Alkaline Phosphatase 90 (38-126) U/L Troponin I (0.000-0.034) ng/mL Total Protein 6.8 (6.3-8.2) g/dL Albumin 4.1 (3.5-5.0) g/dL Urine Color Urine Appearance (Clear) Urine pH (5.0-8.0) Ur Specific [place] (1.001-1.035) Urine Protein (Negative) Urine Glucose (UA) (Negative) Urine Ketones (Negative) Urine Blood (Negative) Urine Nitrite (Negative) Urine Bilirubin (Negative) Urine Urobilinogen (<2.0) mg/dL Ur Leukocyte Esterase (Negative) Urine Opiates Screen Not Detected (NotDetected) Ur Oxycodone Screen Not Detected (NotDetected) Urine Methadone Screen Not Detected (NotDetected) Ur Barbiturates Screen Not Detected (NotDetected) U Tricyclic Antidepress Not Detected (NotDetected) Ur Phencyclidine Scrn Not Detected (NotDetected) Ur Amphetamines Screen Not Detected (NotDetected) U Methamphetamines Scrn Not Detected (NotDetected) U Benzodiazepines Scrn Not Detected (NotDetected) Urine Cocaine Screen Not Detected (NotDetected) U Marijuana (THC) Screen Detected H (NotDetected) Serum Alcohol 474 H* mg/dL 08/02/23 08/02/23 08/02/23 Range/Units 13:58 13:58 13:58 WBC (3.8-10.6) k/uL RBC (3.80-5.40) m/uL Hgb (11.4-16.0) gm/dL Hct (34.0-46.0) % MCV (80.0-100.0) fL MCH (25.0-35.0) pg MCHC (31.0-37.0) g/dL RDW (11.5-15.5) % Plt Count (150-450) k/uL MPV Neutrophils % % Lymphocytes % % Monocytes % % Eosinophils % % Basophils % % Neutrophils # (1.3-7.7) k/uL Lymphocytes # (1.0-4.8) k/uL Monocytes # (0-1.0) k/uL Eosinophils # (0-0.7) k/uL Basophils # (0-0.2) k/uL Macrocytosis Sodium (137-145) mmol/L Potassium (3.5-5.1) mmol/L Chloride (98-107) mmol/L Carbon Dioxide (22-30) mmol/L Anion Gap mmol/L BUN (7-17) mg/dL Creatinine (0.52-1.04) mg/dL Est GFR (CKD-EPI)AfAm (>60 ml/min/1.73 sqM) Est GFR (CKD-EPI)NonAf (>60 ml/min/1.73 sqM) Glucose (74-99) mg/dL Plasma Lactic Acid Anthony 2.0 (0.7-2.0) mmol/L Calcium (8.4-10.2) mg/dL Magnesium (1.6-2.3) mg/dL Total Bilirubin (0.2-1.3) mg/dL AST (14-36) U/L ALT (4-34) U/L Alkaline Phosphatase (38-126) U/L Troponin I 0.017 (0.000-0.034) ng/mL Total Protein (6.3-8.2) g/dL Albumin (3.5-5.0) g/dL Urine Color Colorless Urine Appearance Clear (Clear) Urine pH 5.5 (5.0-8.0) Ur Specific [place] 1.004 (1.001-1.035) Urine Protein Negative (Negative) Urine Glucose (UA) Negative (Negative) Urine Ketones Negative (Negative) Urine Blood Negative (Negative) Urine Nitrite Negative (Negative) Urine Bilirubin Negative (Negative) Urine Urobilinogen <2.0 (<2.0) mg/dL Ur Leukocyte Esterase Negative (Negative) Urine Opiates Screen (NotDetected) Ur Oxycodone Screen (NotDetected) Urine Methadone Screen (NotDetected) Ur Barbiturates Screen (NotDetected) U Tricyclic Antidepress (NotDetected) Ur Phencyclidine Scrn (NotDetected) Ur Amphetamines Screen (NotDetected) U Methamphetamines Scrn (NotDetected) U Benzodiazepines Scrn (NotDetected) Urine Cocaine Screen (NotDetected) U Marijuana (THC) Screen (NotDetected) Serum Alcohol mg/dL Disposition <Nereyda Black - Last Filed: 08/02/23 15:36> Is patient prescribed a controlled substance at d/c from ED?: No <Qing Salmon - Last Filed: 08/02/23 18:26> Clinical Impression: Fall, Alcohol intoxication, Alcohol abuse Disposition: ADMITTED IP TO THIS HOSP Condition: Stable Referrals: Henny Angel MD [Primary Care Provider] - 1-2 days
[2023-08-02 14:04] LABS: Basophils % (A) 1 %; Eosinophils # (A) 0.1 k/uL (0-0.7); Eosinophils % (A) 1 %; HCT 47.7 % (34.0-46.0); HGB 16.1 gm/dL (11.4-16.0); Lymphocytes # (A) 2.5 k/uL (1.0-4.8); Lymphocytes % (A) 54 %; MCH 35.5 pg (25.0-35.0); MCHC 33.7 g/dL (31.0-37.0); MCV 105.2 fL (80.0-100.0); Macrocytosis Slight; Mean Platelet Volume 7.5; Monocytes # (A) 0.5 k/uL (0-1.0); Monocytes % (A) 10 %; Neutrophils # (A) 1.4 k/uL (1.3-7.7); Neutrophils % (A) 30 %; Platelet Count 132 k/uL (150-450); RBC 4.54 m/uL (3.80-5.40); RDW 13.2 % (11.5-15.5); WBC 4.6 k/uL (3.8-10.6)
[2023-08-02] MEDS: SODIUM CHLORIDE 0.9% 1,000 ML IV STA (14:07)
[2023-08-02] MEDS: KETOROLAC 15 MG/ML 1 ML VIAL IVP STA ×2 (14:08→17:00)
[2023-08-02] MEDS: ACETAMINOPHEN TAB 500 MG TAB PO STA (14:11)
[2023-08-02] MEDS: PANTOPRAZOLE 40 MG/10 ML VIAL IVP STA (14:11)
[2023-08-02 14:21] LABS: ALT 37 U/L (4-34); AST 94 U/L (14-36); African American GFR (CKD) >90 (>60 ml/min/1.73 sqM); Albumin 4.1 g/dL (3.5-5.0); Alkaline Phosphatase 90 U/L (38-126); Anion Gap 11 mmol/L; Blood Urea Nitrogen 2 mg/dL (7-17); Calcium 8.6 mg/dL (8.4-10.2); Carbon Dioxide 20 mmol/L (22-30); Chloride 109 mmol/L (98-107); Glucose 109 mg/dL (74-99); Magnesium 1.7 mg/dL (1.6-2.3); Non-African American GFR(CKD) >90 (>60 ml/min/1.73 sqM); Potassium 3.9 mmol/L (3.5-5.1); Sodium 140 mmol/L (137-145); Total Bilirubin 0.5 mg/dL (0.2-1.3); Total Protein 6.8 g/dL (6.3-8.2)
[2023-08-02 14:35] LABS: Alcohol 474 mg/dL
[2023-08-02 14:59] LABS: Appearance,Urine Clear (Clear); Bilirubin,Urine Negative (Negative); Blood,Urine Negative (Negative); Color,Urine Colorless; Glucose,Urine (UA) Negative (Negative); Ketones,Urine Negative (Negative); Leukocyte Esterase,Urine Negative (Negative); Nitrite,Urine Negative (Negative); PH, Urine 5.5 (5.0-8.0); Protein,Urine Negative (Negative); Specific Gravity,Urine 1.004 (1.001-1.035); Urobilinogen,Urine <2.0 mg/dL (<2.0)
[2023-08-02 15:07] LABS: Amphetamine Screen,Urine Not Detected (NotDetected); Barbiturate Screen,Urine Not Detected (NotDetected); Benzodiazepines Screen,Urine Not Detected (NotDetected); Cocaine Screen,Urine Not Detected (NotDetected); Methadone Screen, Urine Not Detected (NotDetected); Opiate Screen,Urine Not Detected (NotDetected); Oxycodone Screen, Urine Not Detected (NotDetected); Phencyclidine Screen,Urine Not Detected (NotDetected); Tricyclic Antidepressant,Urine Not Detected (NotDetected); Urn Cannabinoid Scrn Detected (NotDetected)
--- NOTE | 2023-08-02 15:42 | CT ---
EXAMINATION TYPE: CT brain [place] wo con DATE OF EXAM: 08/02/2023 COMPARISON: 06/17/2022 HISTORY: fall, h/o seizures CT DLP: 1353.2 mGycm Automated exposure control for dose reduction was used. TECHNIQUE: CT scan of the head and cervical spine are performed without contrast. Findings: Head CT: Ventricles, basal cisterns and sulci over convexities are mildly dilated consistent with mild general ized atrophy. There is no mass, mass effect or shift of midline structures. No abnormal density is seen throughout the brain parenchyma and there is no acute intra or extra-axia l hemorrhage. Posterior fossa including the brainstem, fourth ventricle and cerebellar pontine angles are grossly n ormal. The intraorbital contents appear normal and symmetric. Visualized paranasal sinuses are well aerated. CT cervical spine: Craniovertebral junction relationships and prevertebral soft tissues are normal. The cervical vertebral segments are normal in height. There is a slight 2 mm anterolisthesis of C4 on C5. There is moderate degenerative disease at C5-6 and C6-7 where there is moderate disc space narrowing and spondylosis.. There is moderate facet arthropathy from C2-3 through C6-7 on the right. There is mild degeneration o f the uncovertebral joints at C4-5 on the right and at C5-6 and C6-7 bilaterally. There is no signifi cant bony neural foraminal encroachment. The bony cervical canal is widely patent and there is no bony encroachment of the spinal canal. The paraspinal soft tissues unremarkable. IMPRESSION: 1. Head CT: No acute bleed or mass effect. 2. CT cervical spine: No acute trauma. Degenerative changes as described above.
--- NOTE | 2023-08-02 16:53 | XR ---
EXAMINATION: XR chest 2V: 08/02/2023 4:34 PM CLINICAL INDICATION: Pain after fall TECHNIQUE: Departmental protocol COMPARISON: 06/21/2023 FINDINGS/IMPRESSION: There is no displaced rib fracture. No pneumothorax or pleural effusion. The lungs are clear. The cardiac silhouette is not enlarged. The remainder of the mediastinal silhouette is unremarkable. The soft tissues are negative for acute findings.
--- NOTE | 2023-08-02 16:54 | XR ---
PROCEDURE: XR shoulder complete LT - 3V DATE AND TIME: 08/02/2023 4:34 PM CLINICAL INDICATION: PHH; Pain after fall TECHNIQUE: Department protocol COMPARISON: None FINDINGS: There is no fracture or malalignment. The soft tissues are unremarkable. IMPRESSION: NO ACUTE PROCESS.
[2023-08-02] MEDS ORDERED: LORazepam 1 MG TAB PO PRN ×2 (17:30)
[2023-08-02] MEDS ORDERED: NALOXONE 0.4 MG/ML 1 ML VIAL IV PRN (18:23)
[2023-08-02] MEDS: NICOTINE 14MG/24HR PATCH TRANSDERM STA (18:33)
[2023-08-02] MEDS: THIAMINE 100 MG/ML 2 ML VIAL IM STA (18:33)
[2023-08-02] MEDS: KETOROLAC 15 MG/ML 1 ML VIAL IVP PRN (18:34)
[2023-08-02] MEDS: LORazepam 1 MG TAB PO PRN (22:16)
[2023-08-03 11:07] VITALS: BMI 17.6
[2023-08-03] MEDS: PANTOPRAZOLE 40 MG/10 ML VIAL IV SCH (11:15)
[2023-08-03] MEDS: THIAMINE 100 MG TAB PO SCH (11:15)
--- NOTE | 2023-08-03 12:29 | P.HPIM ---
History of Present Illness Patient is 57-year-old female found at home, had a fall found to have hide elevated alcohol levels patient does drink alcohol on daily basis patient initially does not want to quit alcohol but wanted me to help with her alcohol withdrawals. Patient is quite weak and unstable patient is on Keppra for seizures unsure whether patient had alcohol withdrawal seizure or had seizure history in the past patient admits to drinking multiple beers a day, was complaining of left shoulder pain because of which shoulder x-ray chest x-ray an d CT scan of the cervical spine) were ordered all of which were negative for any fractures. REVIEW OF SYSTEMS: CONSTITUTIONAL: No fever, no malaise, no fatigue. HEENT: No recent visual problems or hearing problems. Denied any sore throat. CARDIOVASCULAR: No chest pain, orthopnea, PND, no palpitations, no syncope. PULMONARY: No shortness of breath, no cough, no hemoptysis. GASTROINTESTINAL: No diarrhea, no nausea, no vomiting, no abdominal pain. NEUROLOGICAL: No headaches, no weakness, no numbness. HEMATOLOGICAL: Denies any bleeding or petechiae. GENITOURINARY: Denies any burning micturition, frequency, or urgency. MUSCULOSKELETAL/RHEUMATOLOGICAL: Denies any joint pain, swelling, or any muscle pain. ENDOCRINE: Denies any polyuria or polydipsia. The rest of the 14-point review of systems is negative. PHYSICAL EXAMINATION: GENERAL: The patient is alert and oriented x3, not in any acute distress. Well developed, well nourished. Has tremors HEENT: Pupils are round and equally reacting to light. EOMI. No scleral icterus. No conjunctival pallor. Normocephalic, atraumatic. No pharyngeal erythema. No thyromegaly. CARDIOVASCULAR: S1 and S2 present. No murmurs, rubs, or gallops. PULMONARY: Chest is clear to auscultation, no wheezing or crackles. ABDOMEN: Soft, nontender, nondistended, normoactive bowel sounds. No palpable organomegaly. MUSCULOSKELETAL: No joint swelling or deformity. EXTREMITIES: No cyanosis, clubbing, or pedal edema. NEUROLOGICAL: Gross neurological examination did not reveal any focal deficits. SKIN: No rashes. Assessment and plan -Alcohol withdrawal: Patient was started on Librium and as needed Ativan. -Alcohol intoxication Alcohol dependence: Counseling was provided after extensive counseling patient is willing to quit alcohol -History of seizures in the past unknown whether patient has primary use disorder or had alcohol withdrawal seizures with conservative resuming her Keppra -Elevated blood pressure secondary to alcohol withdrawal DVT prophylaxis: Lovenox GI prophylaxis: Pepcid Protonix transfer note Past Medical History Past Medical History: COPD, Liver Disease, Myocardial Infarction ([place]), Seizure Disorder, Vascular Disorder Additional Past Medical History / Comment(s): constpation, last bowel movement 4 days ago, feeling bloated,feeling of fullness, and abdominal pain, feels hungry then over eats then vomits to feel better, LAST SEIZURE - JANUARY 2021, "broken heart syndrome"., elevated liver enzymes, "dislocated disks", hx cervical cancer Last Myocardial Infarction Date:: 2019 History of Any Multi-Drug Resistant Organisms: None Reported Past Surgical History: Section, Heart Catheterization, Tubal Ligation Additional Past Surgical History / Comment(s): ORIF rt ankle/hardware later removed, exploratory lap, PAIN CLINIC PROCEDURE, BILAT CATARACTS REMOVED WITH LENS IMPLANTS, procedure to open a vein in left leg-couldn't confirm which leg, partial amputation rt hand middle finger, "procedure to remove cervical cancer" Past Anesthesia/Blood Transfusion Reactions: No Reported Reaction Past Psychological History: Anxiety, Bipolar, Depression, PTSD Smoking Status: Current every day smoker Past Alcohol Use History: Abuse, Daily, Heavy Additional Past Alcohol Use History / Comment(s): SMOKES 1 1/2 PPD SINCE AGE 16. pt. states she drinks four beers daily Past Drug Use History: Marijuana Additional Drug Use History / Comment(s): pt reports marijuana use occasional- once a month; - Past Family History Father Family Medical History: Cancer, Prostate Disorder, Pulmonary Embolus Sister(s) Family Medical History: Cancer Brother(s) Family Medical History: Cancer Additional Family Medical History / Comment(s): colon and bladder Medications and Allergies Home Medications Medication Instructions Recorded Confirmed Type levETIRAcetam [Keppra] 500 mg PO BID 10/23/20 08/02/23 History cloNIDine HCL 0.1 mg PO BID 09/03/21 08/02/23 History Thiamine [Vitamin B-1] 100 mg PO DAILY #30 tablet 07/12/23 08/02/23 Rx Diclofenac Sodium [Solaraze 3% Gel] 1 applic TOPICAL DAILY 08/02/23 08/02/23 History Fluorometholone 0.1% Ophth Sharmin 1 drops BOTH EYES BID 08/02/23 08/02/23 History [Fml] Loteprednol Etabonate [Alrex] 1 drop BOTH EYES BID 08/02/23 08/02/23 History Multivitamins, Thera [Multivitamin 1 tab PO DAILY 08/02/23 08/02/23 History (formulary)] Allergies Allergy/AdvReac Type Severity Reaction Status Date / Time Penicillins Allergy Rash/Hives/Swelling Verified 08/02/23 17:20 all over body NSAIDS (Non-Steroidal AdvReac Unknown upset Verified 08/02/23 17:20 Anti-Inflamma stomach sertraline HCl [From Zoloft] AdvReac Suicidal/Ag Verified 08/02/23 17:20 ression Physical Exam Vitals: Vital Signs Temp Pulse Pulse Resp BP BP Pulse Ox 08/03/23 08:00 98.2 F 94 18 180/105 97 08/03/23 02:00 98.7 F 83 16 130/76 98 08/02/23 22:02 16 08/02/23 21:57 98.5 F 80 16 147/83 96 08/02/23 21:25 80 17 154/100 95 08/02/23 18:46 97.8 F 82 18 121/86 95 08/02/23 18:29 83 18 121/86 96 08/02/23 17:00 81 18 158/104 97 08/02/23 16:00 81 18 140/88 96 08/02/23 13:42 98.0 F 83 18 171/87 98 Intake and Output 08/02/23 08/03/23 08/03/23 22:59 06:59 14:59 Intake Total 240 Balance 240 Intake: Oral 240 Other: Voiding Method Toilet # Voids 2 2 Weight 40.823 kg 40.823 kg Results CBC & Chem 7: 08/02/23 13:58 08/02/23 13:58 Labs: Abnormal Lab Results - Last 24 Hours (Table) 08/02/23 08/02/23 08/02/23 Range/Units 13:58 13:58 13:58 Hgb 16.1 H (11.4-16.0) gm/dL Hct 47.7 H (34.0-46.0) % MCV 105.2 H (80.0-100.0) fL MCH 35.5 H (25.0-35.0) pg Plt Count 132 L (150-450) k/uL Chloride 109 H (98-107) mmol/L Carbon Dioxide 20 L (22-30) mmol/L BUN 2 L (7-17) mg/dL Creatinine 0.32 L (0.52-1.04) mg/dL Glucose 109 H (74-99) mg/dL AST 94 H (14-36) U/L ALT 37 H (4-34) U/L U Marijuana (THC) Screen Detected H (NotDetected) Serum Alcohol 474 H* mg/dL Thrombosis Risk Factor Assmnt - Choose All That Apply Any of the Below Risk Factors Present?: Yes Each Factor Represents 1 point: Age 41-60 years Other Risk Factors: No Other congenital or acquired thrombophilia - If yes, enter type in comment: No Thrombosis Risk Factor Assessment Total Risk Factor Score: 1 Thrombosis Risk Factor Assessment Level: Low Risk
[2023-08-03] MEDS: ENOXAPARIN 40 MG/0.4 ML SYRINGE SQ SCH (12:37)
[2023-08-03] MEDS: levETIRAcetam 500 MG TAB PO SCH (12:37)
[2023-08-03] MEDS: cloNIDine HCL 0.1 MG TAB PO SCH (12:43)
[2023-08-03] MEDS: NICOTINE 14MG/24HR PATCH TRANSDERM SCH (17:41)
[2023-08-03] MEDS: HYDROcodone/APAP 5-325MG 1 EACH TAB PO PRN (17:41)
[2023-08-03] MEDS: LORazepam 0.5 MG TAB PO PRN (20:11)
[2023-08-03] MEDS: chlordiazePOXIDE 25 MG CAP PO SCH (20:11)
[2023-08-03] MEDS: FLUOROMETHOLONE 0.1% OPHTH DROPS 5 ML BTL BOTH EYES SCH (20:35)
[2023-08-03] MEDS ORDERED: cloNIDine HCL 0.1 MG TAB PO SCH (21:00)
[2023-08-04] MEDS: LORazepam 1 MG TAB PO PRN (06:45)
[2023-08-04] MEDS: MULTIVITAMINS, THERA 1 EACH TAB PO SCH (09:22)
--- NOTE | 2023-08-04 10:33 | CDI ---
Documentation Clarification Form Date: 08/04/2023 10:12:11 AM From: Brittni Estrella RN CCDS Phone: [phone] Admit Date: 08/02/2023 05:38:00 PM Patient Name: Zuri Santo Visit Number: [id number] Discharge Date: ATTENTION: The Clinical Documentation Specialists (CDI) and [facility] Coding Staff appreciate your assistance in clarifying documentation. Please respond to the clarification below the line at the bottom and electronically sign. The CDI & [facility] Coding staff will review the response and follow-up if needed. Please note: Queries are made part of the Legal Health Record. If you have any questions, please contact the author of this message via ITS. Dr. Ana Rai The Registered Dietitian assessment on 08/03 indicates this patient has had weight loss of 11.3kg unspecified length of time HP, 08/03. Based on this information and the findings below, is there an additional diagnosis that is clinically appropriate for this patient? History/Risk Factors: 57-year-old male presents to the ED after a fall with alcohol intoxication. Medical History: Alcohol use, abuse, daily heavy. Current every day smoker 1.5 PPD since age 16 and marijuana use, COPD, Liver disease, HI and seizure disorder. 08/03,H&P. Clinical Indicators: RD Consult Assessment: Current BMI: 17.6kg; Hgt 5ft; Wgt 11.3kg; Wgt 40.823 kg; 11.3kg Weight change unspecified length of time. Estimated Nutritional Needs: Kcals: Energy needs 1400kcals Protein range: 1.2g/kg related to liver disease Protein needs: 55grams/day Fluid needs: Fluid formula 1ml/Kcal, Fluid needs 1400mls/day Nutritional diagnostic statement: Related to: diminished appetite w/ alcoholism. Evidenced by: Patient report of one small meal daily, 11.3kg 20% weight loss. Patient wears dentures. UBW is 125# noticed decreasing weight. Unsure when last weighed 125#. Patient consumes one meal daily, doesnt feel hungry. Consumes 4-5 12oz beers daily. Nutritional Goals: Increased knowledge related to diet and disease state. Increased PO intake from 50% - 75% Treatment: General healthful diet, Texture modified diet. Regular diet, RD added soft mechanical diet modification. Regular diet with protein focused foods at each meal. Monitor PO intake. Supplements: Ensure compact ordered BID., Monitor supplement intake. Is there an additional diagnosis that is clinically appropriate for this patient? [ x ] Moderate Protein-Calorie Malnutrition [ ] Severe Protein-Calorie Malnutrition [ ] No additional diagnosis/Not clinically significant [ ] Other condition, please specify [ ] Unable to Determine (Template Last Revised: December 2022) MTDD
[2023-08-04] MEDS ORDERED: Magnesium Replacement Protocol 1 EACH MISC MISCELLANE PRN (13:19)
[2023-08-04] MEDS: MAGNESIUM SULFATE-D5W PMX 1 GM in DEXTROSE/WATER 1 100ML.BAG IVPB SCH (13:45)
--- NOTE | 2023-08-05 06:42 | P.PN ---
Subjective Progress Note Date: 08/04/23 Patient is 57-year-old female found at home, had a fall found to have hide elevated alcohol levels patient does drink alcohol on daily basis patient initially does not want to quit alcohol but wanted me to help with her alcohol withdrawals. Patient is quite weak and unstable patient is on Keppra for seizu res unsure whether patient had alcohol withdrawal seizure or had seizure history in the past patient admits to drinking multiple beers a day, was complaining of left shoulder pain because of which shoulder x-ray chest x-ray and CT scan of the cervical spine) were ordered all of which were negative for any fractures. 08/05/2023 Patient is evaluated today sitting in bed. She continues to report pain to the left shoulder with limited range of motion. Xrays of the left shoulder did not show any acute abnormalities. Requiring IV ativan. Review of Systems Constitutional: Denied any fatigue denied any fever. Cardio vascular: denied any chest pain, palpitations Gastrointestinal: denied any nausea, vomiting, diarrhea Pulmonary: Denied any shortness of breath cough Neurologic denied any new focal deficits All inpatient medications were reviewed and appropriate changes in these medications as dictated in the interval history and assessment and plan. PHYSICAL EXAMINATION: GENERAL: The patient is alert and oriented x3, not in any acute distress. Well developed, well nourished. Has tremors HEENT: Pupils are round and equally reacting to light. EOMI. No scleral icterus. No conjunctival pallor. Normocephalic, atraumatic. No pharyngeal erythema. No thyromegaly. CARDIOVASCULAR: S1 and S2 present. No murmurs, rubs, or gallops. PULMONARY: Chest is clear to auscultation, no wheezing or crackles. ABDOMEN: Soft, nontender, nondistended, normoactive bowel sounds. No palpable organomegaly. MUSCULOSKELETAL: No joint swelling or deformity. EXTREMITIES: No cyanosis, clubbing, or pedal edema. NEUROLOGICAL: Gross neurological examination did not reveal any focal deficits. SKIN: No rashes. Assessment and plan -Alcohol withdrawal: Patient was started on Librium and as needed Ativan. Continue with [facility] protocol -Alcohol intoxication -Alcohol dependence: Counseling was provided after extensive counseling patient is willing to quit alcohol -History of seizures in the past unknown whether patient has primary use disorder or had alcohol withdrawal seizures with conservative resuming her Keppra -Elevated blood pressure secondary to alcohol withdrawal, improving -Generalized weakness due to alcoholism and patient will require subacute rehab on discharge, PT has evaluated the patient social work on board for discharge planning -Hypomagnesemia supplemented and will repeat labs in the AM DVT prophylaxis: Lovenox GI prophylaxis: Protonix Full Code The impression and plan of care has been dictated by Morena Mcdonald Nurse Practitioner as directed. Dr. Cecelia MD I have performed a history and physical examination and medical decision making of this patient, discussed the same with the dictator, and agree with the dictators assessment and plan as written, documented as a scribe. Based on total visit time, I have performed more than 50% of this visit. Objective - Vital Signs Vital signs: Vital Signs Temp 97.7 F 08/04/23 19:35 Pulse 52 L 08/04/23 19:35 Resp 16 08/04/23 19:35 BP 136/85 08/04/23 19:35 Pulse Ox 97 08/04/23 19:35 FiO2 Intake & Output 08/04/23 08/04/23 08/05/23 06:59 18:59 06:59 Other: Voiding Method Toilet Toilet # Voids 1 1 # Bowel Movements 1 - Labs CBC & Chem 7: 08/02/23 13:58 08/02/23 13:58 Labs: Abnormal Lab Results - Last 24 Hours (Table) 08/04/23 Range/Units 07:03 Magnesium 1.4 L (1.5-2.4) mg/dL Assessment and Plan Time with Patient: Less than 30
[2023-08-05 12:31] LABS: BUN/Creat Ratio <8.75 Ratio (12.00-20.00); Blood Urea Nitrogen <3.5 mg/dL (9.0-27.0); Calcium 9.2 mg/dL (8.7-10.3); Carbon Dioxide 25.2 mmol/L (21.6-31.8); Chloride 95 mmol/L (96-109); Glucose 129 mg/dL (70-110); Magnesium 1.9 mg/dL (1.5-2.4); Potassium 3.1 mmol/L (3.5-5.5); Sodium 134 mmol/L (135-145)
[2023-08-05 13:15] VITALS: RESP 16
[2023-08-05] MEDS: POTASSIUM CHLORIDE ER 20 MEQ TAB.ER PO SCH (13:55)
--- NOTE | 2023-08-05 22:14 | P.PN ---
Subjective Progress Note Date: 08/05/23 Patient is 57-year-old female found at home, had a fall found to have hide elevated alcohol levels patient does drink alcohol on daily basis patient initially does not want to quit alcohol but wanted me to help with her alcohol withdrawals. Patient is quite weak and unstable patient is on Keppra for seizu res unsure whether patient had alcohol withdrawal seizure or had seizure history in the past patient admits to drinking multiple beers a day, was complaining of left shoulder pain because of which shoulder x-ray chest x-ray and CT scan of the cervical spine) were ordered all of which were negative for any fractures. 08/04/2023 Patient is evaluated today sitting in bed. She continues to report pain to the left shoulder with limited range of motion. Xrays of the left shoulder did not show any acute abnormalities. Requiring IV ativan. 08/05/2023 Patient is evaluated today resting in bed. Left shoulder mobility has improved. Patient is required decreased amount of IV Ativan last given around 1:00 this morning. Patient is pending authorization for discharge to rehab. Her mentation is improved today. Sodium improved. Potassium 3.1 today. Review of Systems Constitutional: Denied any fatigue denied any fever. Cardio vascular: denied any chest pain, palpitations Gastrointestinal: denied any nausea, vomiting, diarrhea Pulmonary: Denied any shortness of breath cough Neurologic denied any new focal deficits All inpatient medications were reviewed and appropriate changes in these me dications as dictated in the interval history and assessment and plan. PHYSICAL EXAMINATION: GENERAL: The patient is alert and oriented x3, not in any acute distress. Well developed, well nourished. Has tremors HEENT: Pupils are round and equally reacting to light. EOMI. No scleral icterus. No conjunctival pallor. Normocephalic, atraumatic. No pharyngeal erythema. No thyromegaly. CARDIOVASCULAR: S1 and S2 present. No murmurs, rubs, or gallops. PULMONARY: Chest is clear to auscultation, no wheezing or crackles. ABDOMEN: Soft, nontender, nondistended, normoactive bowel sounds. No palpable organomegaly. MUSCULOSKELETAL: No joint swelling or deformity. EXTREMITIES: No cyanosis, clubbing, or pedal edema. NEUROLOGICAL: Gross neurological examination did not reveal any focal deficits. SKIN: No rashes. Assessment and plan -Alcohol withdrawal: Patient was started on Librium and as needed Ativan. Continue with [facility] protocol -Alcohol intoxication -Alcohol dependence: Counseling was provided after extensive counseling patient is willing to quit alcohol -History of seizures in the past unknown whether patient has primary use disorder or had alcohol withdrawal seizures with conservative resuming her Keppra -Elevated blood pressure secondary to alcohol withdrawal, improving -Generalized weakness due to alcoholism and patient will require subacute rehab on discharge, PT has evaluated the patient social work on board for discharge planning. pending insurance authorization for DC to subacute rehab. -Hypomagnesemia supplemented and will repeat labs in the AM DVT prophylaxis: Lovenox GI prophylaxis: Protonix Full Code The impression and plan of care has been dictated by Morena Mcdonald, Nurse Practitioner as directed. Dr. Cecelia MD I have performed a history and physical examination and medical decision making of this patient, discussed the same with the dictator, and agree with the dictators assessment and plan as written, documented as a scribe. Based on total visit time, I have performed more than 50% of this visit. Objective - Vital Signs Vital signs: Vital Signs Temp 97.8 F 08/05/23 13:01 Pulse 65 08/05/23 21:23 Resp 16 08/05/23 13:01 BP 114/77 08/05/23 21:23 Pulse Ox 100 08/05/23 13:01 FiO2 Intake & Output 08/05/23 08/05/23 08/06/23 06:59 18:59 06:59 Intake Total 1080 Balance 1080 Weight 40.823 kg Intake: Oral 1080 Other: Voiding Method Toilet Toilet # Voids 1 3 - Labs CBC & Chem 7: 08/02/23 13:58 08/05/23 06:25 Labs: Abnormal Lab Results - Last 24 Hours (Table) 08/05/23 Range/Units 06:25 Sodium 134 L (135-145) mmol/L Potassium 3.1 L (3.5-5.5) mmol/L Chloride 95 L (96-109) mmol/L Anion Gap 13.80 H (4.00-12.00) mmol/L BUN <3.5 L (9.0-27.0) mg/dL Creatinine 0.4 L (0.6-1.5) mg/dL BUN/Creatinine Ratio <8.75 L (12.00-20.00) Ratio Glucose 129 H (70-110) mg/dL Assessment and Plan Time with Patient: Less than 30
[2023-08-06 11:56] LABS: BUN/Creat Ratio <8.75 Ratio (12.00-20.00); Blood Urea Nitrogen <3.5 mg/dL (9.0-27.0); Calcium 9.6 mg/dL (8.7-10.3); Carbon Dioxide 20.4 mmol/L (21.6-31.8); Chloride 98 mmol/L (96-109); Glucose 103 mg/dL (70-110); Potassium 4.4 mmol/L (3.5-5.5); Sodium 132 mmol/L (135-145)
[2023-08-06] MEDS: traMADol 50 MG TAB PO SCH (12:45)
--- NOTE | 2023-08-06 14:37 | P.DS ---
Providers Date of admission: 08/02/23 17:38 Attending physician: Mary Mejia Consults: 08/06/23 10:18 Consult Physician Routine Consulting Provider: Grzegorz White Consult Reason/Comments: left shoulder pain s/p fall limited ROM Do you want consulting provider notified?: Yes Primary care physician: [facility] Course: Final Diagnosis -Alcohol withdrawal treated with ativan and librium -Left shoulder pain after fall xray showing no acute fractures follow up with orthopedics in the office. Continue with NSAIDs. -Alcohol intoxication -Alcohol dependence: Counseling was provided after extensive counseling patient is willing to quit alcohol -History of seizures in the past continue on keppra. -Elevated blood pressure secondary to alcohol withdrawal, improving -Generalized weakness due to alcoholism and patient will require subacute rehab on discharge -Hypomagnesemia supplemented and will repeat labs in the AM Discharge Disposition Patient is stable for discharge to subacute rehab. Patient will continue with NSAID therapy and diclofenac gel to the left shoulder for pain and discomfort. Recommend to follow-up with orthopedics outpatient if pain continues. X-ray showing no acute fracture. Patient recommended to quit alcohol and quit smoking. We will continue with the nicotine patch on discharge. Continue on oral potassium and oral magnesium daily. Repeat labs in 2 to 3 days. Hospital course Patient is 57-year-old female found at home, had a fall found to have elevated alcohol levels. Patient reports daily alcohol use, does want to quit alcohol. Patient also smokes about 1/2 pack of cigarettes per day. She comes in with elevated alcohol level of 474. Patient wants to stay for alcohol withdrawal. Patient is quite weak and unstable. Patient is on Keppra for seizures unsure whether patient had alcohol withdrawal seizure or had seizure history in the past patient admits to drinking multiple beers a day, was complaining of left shoulder pain because of which shoulder x-ray chest x-ray and CT scan of the cervical spine were ordered all of which were negative for any fractures. Patient was monitored for acute alcohol withdrawal, treated with CIWA scale and Librium. Clinically she improved she is more awake alert and oriented. She is receiving Marble for pain management to the left shoulder. She does have limited range of motion x-rays were negative for any acute fracture and we are recommending that she follow-up with orthopedics outpatient. Will repeat x-rays prior to discharge. Her renal function has remained stable. A sodium of 134, magnesium 1.9. Urinalysis was negative. Hemodynamically she is stable. She is not having any chest pain or shortness of breath no nausea vomiting or diarrhea. Physical therapy did see the patient and recommended subacute rehab. Discharged with above mentioned recommendations and recommending total alcohol cessation. Please see medication reconciliation for a list of current medications. Thank jc hunter for allowing us to participate in the care of this patient. The impression and plan of care has been dictated by Morena Mcdonald, Nurse Practitioner as directed. Dr. Cecelia MD I have performed a history and physical examination and medical decision making of this patient, discussed the same with the dictator, and agree with the dictators assessment and plan as written, documented as a scribe. Based on total visit time, I have performed more than 50% of this visit. Patient Condition at Discharge: Fair Plan - Discharge Summary Discharge Rx Participant: No New Discharge Prescriptions: New Nicotine 14Mg/24Hr Patch [Habitrol] 1 patch TRANSDERM DAILY patch Enoxaparin [Lovenox] 40 mg SQ DAILY each Potassium Chloride ER [K-Dur 20] 20 meq PO DAILY #30 tab HYDROcodone/APAP 5-325MG [Marble 5-325] 0.5 each PO Q6HR PRN #4 tab PRN Reason: Pain Magnesium Oxide [Mag-Ox] 400 mg PO DAILY #30 tablet Continue levETIRAcetam [Keppra] 500 mg PO BID Thiamine [Vitamin B-1] 100 mg PO DAILY #30 tablet Loteprednol Etabonate [Alrex] 1 drop BOTH EYES BID cloNIDine HCL 0.1 mg PO BID Multivitamins, Thera [Multivitamin (formulary)] 1 tab PO DAILY Fluorometholone 0.1% Ophth Sharmin [Fml] 1 drops BOTH EYES BID Diclofenac Sodium [Solaraze 3% Gel] 1 applic TOPICAL DAILY Discharge Medication List levETIRAcetam [Keppra] 500 mg PO BID 10/23/20 [History] cloNIDine HCL 0.1 mg PO BID 09/03/21 [History] Thiamine [Vitamin B-1] 100 mg PO DAILY #30 tablet 07/12/23 [Rx] Diclofenac Sodium [Solaraze 3% Gel] 1 applic TOPICAL DAILY 08/02/23 [History] Fluorometholone 0.1% Ophth Sharmin [Fml] 1 drops BOTH EYES BID 08/02/23 [History] Loteprednol Etabonate [Alrex] 1 drop BOTH EYES BID 08/02/23 [History] Multivitamins, Thera [Multivitamin (formulary)] 1 tab PO DAILY 08/02/23 [History] Enoxaparin [Lovenox] 40 mg SQ DAILY each 08/05/23 [Rx] HYDROcodone/APAP 5-325MG [Marble 5-325] 0.5 each PO Q6HR PRN #4 tab 08/05/23 [Rx] Magnesium Oxide [Mag-Ox] 400 mg PO DAILY #30 tablet 08/05/23 [Rx] Nicotine 14Mg/24Hr Patch [Habitrol] 1 patch TRANSDERM DAILY patch 08/05/23 [Rx] Potassium Chloride ER [K-Dur 20] 20 meq PO DAILY #30 tab 08/05/23 [Rx] Follow up Appointment(s)/Referral(s): Henny Angel MD [Primary Care Provider] - 1-2 days Ambulatory/Diagnostic Orders: Basic Metabolic Panel [LAB.AMB] Time Frame: 3 Days, Location: None Selected Discharge/Stand Alone Forms: AA Meetings [place], Outpatient Counseling, In Substance Abuse Facilities Discharge Disposition: TRANSFER TO SNF/ECF
[2023-08-06 15:14] VITALS: BP 89/57; PULSE 54; TEMP 98
--- NOTE | 2023-08-06 16:54 | XR ---
EXAMINATION TYPE: XR shoulder complete LT DATE OF EXAM: 08/06/2023 4:02 PM CLINICAL INDICATION:Female, 57 years old with history of Continued Pain and limited ROM.; [facility] COMPARISON: 08/02/2023 TECHNIQUE: XR shoulder complete LT; examined in AP, internally rotated and scapular Y projections. FINDINGS: No evidence of acute osseous pathology, joint dislocation, or soft tissue swelling. The remaining po rtions of the visualized chest are unremarkable. IMPRESSION: No acute osseous pathology.
--- NOTE | 2023-08-06 17:32 | P.CNOR ---
History of Present Illness - [facility] Consult date: 08/06/23 Requesting physician: Morena Mcdonald Consult reason: other (left shoulder pain s/p fall limited ROM) History of present illness: Patient is a 57-year-old female who presents to the emergency department on 08/02/2023 status post fall. Patient says she was in her room at home she went to get in bed she tripped and fell. Patient is unsure/cannot recollect what caused the fall and if she hit her head/loss consciousness. Patient does have past medical history significant for seizures. Patient is unsure if she has seizure. Patient did have elevated alcohol levels she came to the ER. Orthopedics was consulted earlier today due to patient having a fall last night. Orthopedics consulted due to loss of range of motion in the left shoulder and pain in the left shoulder. Patient was seen at bedside this afternoon in her room and states that she has been having pain to the left shoulder and loss in range of motion. Patient says there is some rotation of pain in the left arm but this is minimal. Patient says medication has helped minimally with pain. Patient says she has been walking around the room using walker since she was admitted to the hospital, however, patient says she has felt a bit unsteady when she is up and about and she thinks as well as to her fall. Patient denies any previous shoulder surgery. Patient denies chest pain, fever, chest breath, nausea, vomiting, change in vision, loss of bowel/bladder control. Past Medical History Past Medical History: COPD, Liver Disease, Myocardial Infarction ([place]), Seizure Disorder, Vascular Disorder Additional Past Medical History / Comment(s): constpation, last bowel movement 4 days ago, feeling bloated,feeling of fullness, and abdominal pain, feels hungry then over eats then vomits to feel better, LAST SEIZURE - JANUARY 2021, "broken heart syndrome"., elevated liver enzymes, "dislocated disks", hx cervical cancer Last Myocardial Infarction Date:: 2019 History of Any Multi-Drug Resistant Organisms: None Reported Past Surgical History: Section, Heart Catheterization, Tubal Ligation Additional Past Surgical History / Comment(s): ORIF rt ankle/hardware later removed, exploratory lap, PAIN CLINIC PROCEDURE, BILAT CATARACTS REMOVED WITH LENS IMPLANTS, procedure to open a vein in left leg-couldn't confirm which leg, partial amputation rt hand middle finger, "procedure to remove cervical cancer" Past Anesthesia/Blood Transfusion Reactions: No Reported Reaction Past Psychological History: Anxiety, Bipolar, Depression, PTSD Smoking Status: Current every day smoker Past Alcohol Use History: Abuse, Daily, Heavy Additional Past Alcohol Use History / Comment(s): SMOKES 1 1/2 PPD SINCE AGE 16. pt. states she drinks four beers daily Past Drug Use History: Marijuana Additional Drug Use History / Comment(s): pt reports marijuana use occasional- once a month; - Past Family History Father Family Medical History: Cancer, Prostate Disorder, Pulmonary Embolus Sister(s) Family Medical History: Cancer Brother(s) Family Medical History: Cancer Additional Family Medical History / Comment(s): colon and bladder Medications and Allergies Home Medications Medication Instructions Recorded Confirmed Type levETIRAcetam [Keppra] 500 mg PO BID 10/23/20 08/02/23 History cloNIDine HCL 0.1 mg PO BID 09/03/21 08/02/23 History Thiamine [Vitamin B-1] 100 mg PO DAILY #30 tablet 07/12/23 08/02/23 Rx Diclofenac Sodium [Solaraze 3% Gel] 1 applic TOPICAL DAILY 08/02/23 08/02/23 History Fluorometholone 0.1% Ophth Sharmin 1 drops BOTH EYES BID 08/02/23 08/02/23 History [Fml] Loteprednol Etabonate [Alrex] 1 drop BOTH EYES BID 08/02/23 08/02/23 History Multivitamins, Thera [Multivitamin 1 tab PO DAILY 08/02/23 08/02/23 History (formulary)] Enoxaparin [Lovenox] 40 mg SQ DAILY each 08/05/23 Rx HYDROcodone/APAP 5-325MG [Hensel 0.5 each PO Q6HR PRN #4 tab 08/05/23 Rx 5-325] Magnesium Oxide [Mag-Ox] 400 mg PO DAILY #30 tablet 08/05/23 Rx Nicotine 14Mg/24Hr Patch [Habitrol] 1 patch TRANSDERM DAILY patch 08/05/23 Rx Potassium Chloride ER [K-Dur 20] 20 meq PO DAILY #30 tab 08/05/23 Rx Allergies Allergy/AdvReac Type Severity Reaction Status Date / Time Penicillins Allergy Rash/Hives/Swelling Verified 08/02/23 17:20 all over body NSAIDS (Non-Steroidal AdvReac Unknown upset Verified 08/02/23 17:20 Anti-Inflamma stomach sertraline HCl [From Zoloft] AdvReac Suicidal/Ag Verified 08/02/23 17:20 ression Physical Examination Inspection: Positive for significant ecchymosis diffusely throughout the left shoulder. Negative for any open fractures, significant wound/erythema. Sensation: Equal, symmetric, bilaterally intact breath the upper and lower extremities. Palpation: Moderatesignificant tenderness to palpation diffusely throughout the left shoulder. There is some moderate tenderness of the patient along the clavicle on the left and in the scapula on the left. Some minimal tenderness patient diffusely surrounding the left elbow. Nontender to palpation throughout rest exam. Range of motion: Limited range of motion throughout the shoulder in forward elevation, external/internal rotation secondary to stiffness and pain in the le ft shoulder. Patient is able to flex the left elbow to about 105. Patient lacks about 15 full extension of the left elbow secondary to pain. Full range of motion throughout right upper extremity and bilateral lower extremities on exam. Motor: 3+/5 throughout left upper extremity exam. 4/5 in all major motor groups in bilateral lower extremities and right upper extremity. Special tests: Negative Homans bilaterally. Positive drop arm test. Positive cross body adduction test. Results - Labs Labs: Abnormal Lab Results - Last 24 Hours (Table) 08/06/23 Range/Units 07:30 Sodium 132 L (135-145) mmol/L Carbon Dioxide 20.4 L (21.6-31.8) mmol/L Anion Gap 13.60 H (4.00-12.00) mmol/L BUN <3.5 L (9.0-27.0) mg/dL Creatinine 0.4 L (0.6-1.5) mg/dL BUN/Creatinine Ratio <8.75 L (12.00-20.00) Ratio H & H 08/02/23 Range/Units 13:58 Hgb 16.1 H (11.4-16.0) gm/dL Hct 47.7 H (34.0-46.0) % Result Diagrams: 08/02/23 13:58 08/06/23 07:30 - Diagnostic results Shoulder x-ray: report reviewed, image reviewed (Shoulder x-rays negative for any fractures. There is some loss in the glenohumeral joint space. No evidence of shoulder dislocation.) Assessment and Plan Assessment: 1. Left shoulder pain; rotator cuff tendinitis Plan: 1. Left shoulder pain; rotator cuff tendinitis - left shoulder x-rays negative for any fractures. Negative for dislocation. Negative for swelling. There is some loss of the glenohumeral joint space. Patient likely has rotator cuff tendinitis due to the fall. I did discuss the findings of the imaging/exam with my attending, Dr. Lee. At this time we're not recommending any emergent or urgent orthopedic surgical intervention we are recommending conservative measures with use of ice, rest and pain medication as well as a sling to the left upper extremity. Patient may return to gentle range of motion exercises as tolerated. Patient is stable from an orthopedic standpoint for discharge. At this time orthopedics is signing off. Please do not hesitate to contact us for any further questions. 2. Appreciate medical management 3. Pain management - Hensel; tramadol 4. DVT prophylaxis - Lovenox 5. GI prophylaxis - Protonix 6. PT/OT - nonweightbearing left upper extremity. Maintain left upper extremity in sling 7. Encourage incentive spirometer use 8. Appreciate consult Time with Patient: Less than 30
== END 2023-08-06 18:21 | DRG 775 ==
LOC: EC 13:39 → 5NMEDONC 17:38
PROVIDERS: ADMIT Hospitalist; ATTEND Hospitalist
PROC: HZ2ZZZZ Detoxification Services for Substance Abuse Treatment (ICD-10-PCS; principal; 2023-08-02)
DX: F10.231 Alcohol dependence with withdrawal delirium (principal); F10.229 Alcohol dependence with intoxication, unspecified; G40.909 Epilepsy, unspecified, not intractable, without status epilepticus; J44.9 Chronic obstructive pulmonary disease, unspecified; I25.2 Old myocardial infarction; K76.9 Liver disease, unspecified; F31.9 Bipolar disorder, unspecified; F43.10 Post-traumatic stress disorder, unspecified; E44.0 Moderate protein-calorie malnutrition; Z68.1 Body mass index [BMI] 19.9 or less, adult; Z88.0 Allergy status to penicillin; Z88.6 Allergy status to analgesic agent; Y90.8 Blood alcohol level of 240 mg/100 ml or more; E83.42 Hypomagnesemia; Z71.41 Alcohol abuse counseling and surveillance of alcoholic; M75.102 Unspecified rotator cuff tear or rupture of left shoulder, not specified as traumatic; M19.90 Unspecified osteoarthritis, unspecified site; R29.6 Repeated falls; Z79.899 Other long term (current) drug therapy; Z85.41 Personal history of malignant neoplasm of cervix uteri; Z96.1 Presence of intraocular lens; Z98.42 Cataract extraction status, left eye; Z98.41 Cataract extraction status, right eye; Z98.1 Arthrodesis status; Z89.111 Acquired absence of right hand; W01.0XXA Fall on same level from slipping, tripping and stumbling without subsequent striking against object, initial encounter; Z59.00 Homelessness unspecified
CPT/HCPCS: 36415; 70450; 71046; 72125; 80048; 80053; 80306; 80320; 81003; 83605; 83735; 84484; 85025; 93005; 96361; 96372; 96374; 96375; 96376; 99285

== ENCOUNTER 2023-08-15 11:21 | Emergency (ER) | payer OTHER ==
[2023-08-15 11:37] VITALS: RESP 20
--- NOTE | 2023-08-15 11:42 | ED ---
General Adult HPI - General Chief complaint: Alcohol Stated complaint: etoh Time Seen by Provider: 08/15/23 11:22 Source: patient, EMS, RN notes reviewed, old records reviewed Mode of arrival: EMS Limitations: no limitations - History of Present Illness Initial comments: Patient is a pleasant 57-year-old female presenting to the emergency department by EMS. Patient is not quite clear why she is here. Patient does admit to drinking alcohol this morning however states she always does that. Patient states she was a little bit dizzy this morning however this was chronic as well. Patient states there is some swelling of her legs. Patient denies dyspnea. - Related Data Home Medications Medication Instructions Recorded Confirmed levETIRAcetam [Keppra] 500 mg PO BID 10/23/20 08/02/23 cloNIDine HCL 0.1 mg PO BID 09/03/21 08/02/23 Diclofenac Sodium [Solaraze 3% Gel] 1 applic TOPICAL DAILY 08/02/23 08/02/23 Fluorometholone 0.1% Ophth Sharmin 1 drops BOTH EYES BID 08/02/23 08/02/23 [Fml] Loteprednol Etabonate [Alrex] 1 drop BOTH EYES BID 08/02/23 08/02/23 Multivitamins, Thera [Multivitamin 1 tab PO DAILY 08/02/23 08/02/23 (formulary)] Previous Rx's Medication Instructions Recorded Thiamine [Vitamin B-1] 100 mg PO DAILY #30 tablet 07/12/23 Enoxaparin [Lovenox] 40 mg SQ DAILY each 08/05/23 HYDROcodone/APAP 5-325MG [[place] 0.5 each PO Q6HR PRN #4 tab 08/05/23 5-325] Magnesium Oxide [Mag-Ox] 400 mg PO DAILY #30 tablet 08/05/23 Nicotine 14Mg/24Hr Patch [Habitrol] 1 patch TRANSDERM DAILY patch 08/05/23 Potassium Chloride ER [K-Dur 20] 20 meq PO DAILY #30 tab 08/05/23 Allergies Allergy/AdvReac Type Severity Reaction Status Date / Time Penicillins Allergy Rash/Hives/Swelling Verified 08/15/23 11:37 all over body NSAIDS (Non-Steroidal AdvReac Unknown upset Verified 08/15/23 11:37 Anti-Inflamma stomach sertraline HCl [From Zoloft] AdvReac Suicidal/Ag Verified 08/15/23 11:37 ression Review of Systems ROS Statement: Those systems with pertinent positive or pertinent negative responses have been documented in the HPI. ROS Other: All systems not noted in ROS Statement are negative. Constitutional: Denies: fever Eyes: Denies: eye pain ENT: Denies: ear pain Respiratory: Denies: cough, dyspnea Cardiovascular: Denies: chest pain Past Medical History Past Medical History: COPD, Liver Disease, Myocardial Infarction ([place]), Seizure Disorder, Vascular Disorder Additional Past Medical History / Comment(s): constpation, last bowel movement 4 days ago, feeling bloated,feeling of fullness, and abdominal pain, feels hungry then over eats then vomits to feel better, LAST SEIZURE - JANUARY 2021, "broken heart syndrome"., elevated liver enzymes, "dislocated disks", hx cervical cancer Last Myocardial Infarction Date:: 2019 History of Any Multi-Drug Resistant Organisms: None Reported Past Surgical History: Section, Heart Catheterization, Tubal Ligation Additional Past Surgical History / Comment(s): ORIF rt ankle/hardware later removed, exploratory lap, PAIN CLINIC PROCEDURE, BILAT CATARACTS REMOVED WITH LENS IMPLANTS, procedure to open a vein in left leg-couldn't confirm which leg, partial amputation rt hand middle finger, "procedure to remove cervical cancer" Past Anesthesia/Blood Transfusion Reactions: No Reported Reaction Past Psychological History: Anxiety, Bipolar, Depression, PTSD Past Alcohol Use History: Abuse, Daily, Heavy - Past Family History Father Family Medical History: Cancer, Prostate Disorder, Pulmonary Embolus Sister(s) Family Medical History: Cancer Brother(s) Family Medical History: Cancer Additional Family Medical History / Comment(s): colon and bladder General Exam Limitations: no limitations General appearance: alert, in no apparent distress, appears intoxicated Head exam: Present: atraumatic, normocephalic Eye exam: Present: normal appearance, PERRL, EOMI, nystagmus ENT exam: Present: normal oropharynx Neck exam: Present: normal inspection. Absent: tenderness Respiratory exam: Present: normal lung sounds bilaterally Cardiovascular Exam: Present: tachycardia GI/Abdominal exam: Present: soft. Absent: tenderness Extremities exam: Present: pedal edema (Trace bilateral). Absent: calf tenderness Neurological exam: Present: alert, CN II-XII intact. Absent: motor sensory deficit Expanded Neurological exam: Present: protecting the airway Cranial nerves: EOM's Intact: Normal Motor strength exam: RUE: 5, LUE: 5, RLE: 5, LLE: 5 Eye Response: (4) open spontaneously Motor Response: (6) obeys commands Verbal Response: (5) oriented Psychiatric exam: Present: normal affect, normal mood Skin exam: Present: normal color Course Vital Signs 08/15/23 11:32 Temperature 97.1 F L Pulse Rate 109 H Respiratory 20 Rate Blood Pressure 126/80 O2 Sat by Pulse 97 Oximetry EKG Findings - EKG Results: EKG: interpreted by ERMD (Right axis. Septal Q waves.), sinus rhythm, normal ST/T Medical Decision Making - Medical Decision Making Was pt. sent in by a medical professional or institution (, PA, COLLECTIONS AND ARCHIVES DIRECTOR, urgent care, hospital, or residential...) When possible be specific @ -No Did you speak to anyone other than the patient for history (EMS, parent, family, police, friend...)? What history was obtained from this source @ -No Did you review nursing and triage notes (agree or disagree)? Why? @ -I reviewed and agree with nursing and triage notes Were old charts reviewed (outside hosp., previous admission, EMS record, old EKG, old radiological studies, urgent care reports/EKG's, residential records)? Report findings @ -Previous labs reviewed Differential Diagnosis (chest pain, altered mental status, abdominal pain women, abdominal pain men, vaginal bleeding, weakness, fever, dyspnea, syncope, headache, dizziness, GI bleed, back pain, seizure, CVA, palpatations, mental health, musculoskeletal)? @ -Differential Mental Health Depression, anxiety, bipolar, psychosis, schizophrenia, borderline personality, situational depression, adjustment disorder, behavioral disorder, brain tumor, malingering, substance abuse, encephalopathy, medication reaction, dementia, hypothyroidism, degenerative neurologic disorder, lupus.... This is not meant to be all-inclusive list EKG interpreted by me (3pts min.). @ -As above X-rays interpreted by me (1pt min.). @ -Chest x-ray shows no acute process CT interpreted by me (1pt min.). @ -None done U/S interpreted by me (1pt. min.). @ -None done What testing was considered but not performed or refused? (CT, X-rays, U/S, labs)? Why? @ -None What meds were considered but not given or refused? Why? @ -None Did you discuss the management of the patient with other professionals (professionals i.e. , PA, COLLECTIONS AND ARCHIVES DIRECTOR, lab, RT, psych nurse, addiction social worker, medical translator, teacher, deportation officer, onsite case manager)? Give summary @ -No Was smoking cessation discussed for >3mins.? @ -No Was critical care preformed (if so, how long)? @ -No Were there social determinants of health that impacted care today? How? (Homelessness, low income, unemployed, alcoholism, drug addiction, transportation, low edu. Level, literacy, decrease access to med. care, longterm, rehab)? @ -No Was there de-escalation of care discussed even if they declined (Discuss DNR or withdrawal of care, Hospice)? DNR status @ -No What co-morbidities impacted this encounter? (DM, HTN, Smoking, COPD, CAD, Cancer, CVA, ARF, Chemo, Hep., AIDS, mental health diagnosis, sleep apnea, morbid obesity)? @ -None Was patient admitted / discharged? Hospital course, mention meds given and route, prescriptions, significant lab abnormalities, going to OR and other pertinent info. @ -Patient reevaluated and feeling much better. Patient is requesting discharge home. Patient states she does have a ride here. Patient is updated on results and need for follow-up. Undiagnosed new problem with uncertain prognosis? @ -No Drug Therapy requiring intensive monitoring for toxicity (Heparin, Nitro, Insulin, Cardizem)? @ -No Were any procedures done? @ -No Diagnosis/symptom? @ -Alcohol intoxication Acute, or Chronic, or Acute on Chronic? @ -Acute Uncomplicated (without systemic symptoms) or Complicated (systemic symptoms)? @ -Default Side effects of treatment? @ -No Exacerbation, Progression, or Severe Exacerbation? @ -No Poses a threat to life or bodily function? How? (Chest pain, [place], [place], pneumonia, PE, COPD, DKA, ARF, appy, cholecystitis, CVA, Diverticulitis, Homicidal, Suicidal, threat to staff... and all critical care pts) @ -No - Lab Data Result diagrams: 08/15/23 13:14 08/15/23 13:14 Lab Results 08/15/23 08/15/23 Range/Units 13:14 13:14 WBC 5.3 (3.8-10.6) k/uL RBC 3.82 (3.80-5.40) m/uL Hgb 13.4 (11.4-16.0) gm/dL Hct 40.3 (34.0-46.0) % MCV 105.4 H (80.0-100.0) fL MCH 35.1 H (25.0-35.0) pg MCHC 33.3 (31.0-37.0) g/dL RDW 13.3 (11.5-15.5) % Plt Count 400 D (150-450) k/uL MPV 7.3 Neutrophils % 62 % Lymphocytes % 27 % Monocytes % 7 % Eosinophils % 1 % Basophils % 1 % Neutrophils # 3.3 (1.3-7.7) k/uL Lymphocytes # 1.4 (1.0-4.8) k/uL Monocytes # 0.4 (0-1.0) k/uL Eosinophils # 0.0 (0-0.7) k/uL Basophils # 0.0 (0-0.2) k/uL Macrocytosis Slight Sodium 142 (137-145) mmol/L Potassium 4.0 (3.5-5.1) mmol/L Chloride 109 H (98-107) mmol/L Carbon Dioxide 23 (22-30) mmol/L Anion Gap 10 mmol/L BUN 6 L (7-17) mg/dL Creatinine 0.37 L (0.52-1.04) mg/dL Est GFR (CKD-EPI)AfAm >90 (>60 ml/min/1.73 sqM) Est GFR (CKD-EPI)NonAf >90 (>60 ml/min/1.73 sqM) Glucose 88 (74-99) mg/dL Calcium 8.7 (8.4-10.2) mg/dL Magnesium 1.7 (1.6-2.3) mg/dL Total Bilirubin 0.2 (0.2-1.3) mg/dL AST 49 H (14-36) U/L ALT 25 (4-34) U/L Alkaline Phosphatase 85 (38-126) U/L Total Protein 6.0 L (6.3-8.2) g/dL Albumin 3.6 (3.5-5.0) g/dL Serum Alcohol 192 mg/dL Disposition Clinical Impression: Alcohol intoxication Disposition: HOME SELF-CARE Condition: Stable Instructions (If sedation given, give patient instructions): Alcohol Intoxication (ED) Additional Instructions: Gradually discontinue alcohol use. Return for dizziness or difficulty walking, swelling or difficulty breathing, worsening symptoms or other concerns. Is patient prescribed a controlled substance at d/c from ED?: No Referrals: Henny Angel MD [Primary Care Provider] - 1-2 days Time of Disposition: 14:26
[2023-08-15 13:29] LABS: Basophils % (A) 1 %; Eosinophils % (A) 1 %; HCT 40.3 % (34.0-46.0); HGB 13.4 gm/dL (11.4-16.0); Lymphocytes # (A) 1.4 k/uL (1.0-4.8); Lymphocytes % (A) 27 %; MCH 35.1 pg (25.0-35.0); MCHC 33.3 g/dL (31.0-37.0); MCV 105.4 fL (80.0-100.0); Macrocytosis Slight; Mean Platelet Volume 7.3; Monocytes # (A) 0.4 k/uL (0-1.0); Monocytes % (A) 7 %; Neutrophils # (A) 3.3 k/uL (1.3-7.7); Neutrophils % (A) 62 %; RBC 3.82 m/uL (3.80-5.40); RDW 13.3 % (11.5-15.5); WBC 5.3 k/uL (3.8-10.6)
--- NOTE | 2023-08-15 13:29 | XR ---
EXAMINATION TYPE: XR chest 2V DATE OF EXAM: 08/15/2023 1:19 PM CLINICAL INDICATION:Female, 57 years old with history of edema; [facility] COMPARISON: Chest radiographs from 08/02/2023 TECHNIQUE: XR chest 2V Frontal and lateral views of the chest. FINDINGS: Lungs/Pleura: There is flattening of the diaphragm with increased lucency of the lungs. No evidence o f pneumothorax, pleural effusion or focal consolidation. Pulmonary vascularity: Unremarkable. Heart/mediastinum: Cardiomediastinal silhouette is unremarkable. Musculoskeletal: No acute osseous pathology. IMPRESSION: 1. No acute cardiopulmonary disease process. 2. COPD changes.
[2023-08-15] MEDS: THIAMINE 100 MG/ML 2 ML VIAL IM STA (13:30)
[2023-08-15 13:43] LABS: ALT 25 U/L (4-34); AST 49 U/L (14-36); African American GFR (CKD) >90 (>60 ml/min/1.73 sqM); Albumin 3.6 g/dL (3.5-5.0); Alkaline Phosphatase 85 U/L (38-126); Anion Gap 10 mmol/L; Blood Urea Nitrogen 6 mg/dL (7-17); Calcium 8.7 mg/dL (8.4-10.2); Carbon Dioxide 23 mmol/L (22-30); Chloride 109 mmol/L (98-107); Glucose 88 mg/dL (74-99); Magnesium 1.7 mg/dL (1.6-2.3); Non-African American GFR(CKD) >90 (>60 ml/min/1.73 sqM); Sodium 142 mmol/L (137-145); Total Bilirubin 0.2 mg/dL (0.2-1.3)
[2023-08-15 13:45] LABS: Alcohol 192 mg/dL
[2023-08-15 13:48] LABS: Platelet Count 400 k/uL (150-450)
[2023-08-15 14:47] VITALS: BP 131/88; PULSE 97; TEMP 98.4
== END 2023-08-15 14:37 | disposition home or self-care (01) ==
LOC: EC 11:21
DX: F10.129 Alcohol abuse with intoxication, unspecified (principal); J44.9 Chronic obstructive pulmonary disease, unspecified; I25.2 Old myocardial infarction; Z86.59 Personal history of other mental and behavioral disorders; Y90.6 Blood alcohol level of 120-199 mg/100 ml; Z88.0 Allergy status to penicillin; Z88.1 Allergy status to other antibiotic agents; Z88.8 Allergy status to other drugs, medicaments and biological substances
CPT/HCPCS: 36415; 93005; 80053; 83735; 85025; 71046; 99285; 96372; G0480; J3411; 80320

== ENCOUNTER 2023-08-17 19:21 | Emergency (ER) | payer OTHER ==
--- NOTE | 2023-08-17 19:36 | ED ---
Psych HPI - General Source: patient, EMS, RN notes reviewed, old records reviewed Mode of arrival: EMS - History of Present Illness MD Complaint: suicidal ideation, feels depressed -: days(s) Associated Psychiatric Symptoms: depression, suicidal ideation History of same: Yes Quality: constant Improves With: none Worsens With: none Associated Symptoms: denies other symptoms If Self Harm: admits thoughts of self harm <Mateo Stewart - Last Filed: 08/17/23 20:15> <Nehemias Clifton - Last Filed: 08/18/23 09:26> - General Chief Complaint: Psychiatric Symptoms Stated Complaint: ETOH Time Seen by Provider: 08/17/23 19:32 - History of Present Illness Initial Comments: This is a 57-year-old female to the ER for evaluation of psychiatric illness severely intoxicated which makes history totally difficult. Patient is psychiatric and suicidal (Mateo Stewart) - Related Data Home Medications Medication Instructions Recorded Confirmed levETIRAcetam [Keppra] 500 mg PO BID 10/23/20 08/02/23 cloNIDine HCL 0.1 mg PO BID 09/03/21 08/02/23 Diclofenac Sodium [Solaraze 3% Gel] 1 applic TOPICAL DAILY 08/02/23 08/02/23 Fluorometholone 0.1% Ophth Sharmin 1 drops BOTH EYES BID 08/02/23 08/02/23 [Fml] Loteprednol Etabonate [Alrex] 1 drop BOTH EYES BID 08/02/23 08/02/23 Multivitamins, Thera [Multivitamin 1 tab PO DAILY 08/02/23 08/02/23 (formulary)] Previous Rx's Medication Instructions Recorded Thiamine [Vitamin B-1] 100 mg PO DAILY #30 tablet 07/12/23 Enoxaparin [Lovenox] 40 mg SQ DAILY each 08/05/23 HYDROcodone/APAP 5-325MG [[place] 0.5 each PO Q6HR PRN #4 tab 08/05/23 5-325] Magnesium Oxide [Mag-Ox] 400 mg PO DAILY #30 tablet 08/05/23 Nicotine 14Mg/24Hr Patch [Habitrol] 1 patch TRANSDERM DAILY patch 08/05/23 Potassium Chloride ER [K-Dur 20] 20 meq PO DAILY #30 tab 08/05/23 Allergies Allergy/AdvReac Type Severity Reaction Status Date / Time Penicillins Allergy Rash/Hives/Swelling Verified 08/15/23 11:37 all over body NSAIDS (Non-Steroidal AdvReac Unknown upset Verified 08/15/23 11:37 Anti-Inflamma stomach sertraline HCl [From Zoloft] AdvReac Suicidal/Ag Verified 08/15/23 11:37 ression Review of Systems ROS Other: All systems not noted in ROS Statement are negative. <Mateo Stewart - Last Filed: 08/17/23 20:15> ROS Other: All systems not noted in ROS Statement are negative. <RikkiNehemias whitney - Last Filed: 08/18/23 09:26> ROS Statement: Those systems with pertinent positive or pertinent negative responses have been documented in the HPI. Past Medical History Past Medical History: COPD, Liver Disease, Myocardial Infarction ([place]), Seizure Disorder, Vascular Disorder Additional Past Medical History / Comment(s): constpation, last bowel movement 4 days ago, feeling bloated,feeling of fullness, and abdominal pain, feels hungry then over eats then vomits to feel better, LAST SEIZURE - JANUARY 2021, "broken heart syndrome"., elevated liver enzymes, "dislocated disks", hx cervical cancer Last Myocardial Infarction Date:: 2019 History of Any Multi-Drug Resistant Organisms: None Reported Past Surgical History: Section, Heart Catheterization, Tubal Ligation Additional Past Surgical History / Comment(s): ORIF rt ankle/hardware later removed, exploratory lap, PAIN CLINIC PROCEDURE, BILAT CATARACTS REMOVED WITH LENS IMPLANTS, procedure to open a vein in left leg-couldn't confirm which leg, partial amputation rt hand middle finger, "procedure to remove cervical cancer" Past Anesthesia/Blood Transfusion Reactions: No Reported Reaction Past Psychological History: Anxiety, Bipolar, Depression, PTSD Smoking Status: Current every day smoker Past Alcohol Use History: Abuse, Daily, Heavy Past Drug Use History: Marijuana - Past Family History Father Family Medical History: Cancer, Prostate Disorder, Pulmonary Embolus Sister(s) Family Medical History: Cancer Brother(s) Family Medical History: Cancer Additional Family Medical History / Comment(s): colon and bladder <Mateo Stewart - Last Filed: 08/17/23 20:15> General Exam Limitations: altered mental status General appearance: alert, in no apparent distress Head exam: Present: atraumatic, normocephalic, normal inspection Eye exam: Present: normal appearance, PERRL, EOMI. Absent: scleral icterus, conjunctival injection, periorbital swelling ENT exam: Present: normal exam, mucous membranes moist Neck exam: Present: normal inspection. Absent: tenderness, meningismus, lymphadenopathy Respiratory exam: Present: normal lung sounds bilaterally. Absent: respiratory distress, wheezes, rales, rhonchi, stridor Cardiovascular Exam: Present: regular rate, normal rhythm, normal heart sounds. Absent: systolic murmur, diastolic murmur, rubs, gallop, clicks GI/Abdominal exam: Present: soft, normal bowel sounds. Absent: distended, tenderness, guarding, rebound, rigid Extremities exam: Present: normal inspection, full ROM, normal capillary refill. Absent: tenderness, pedal edema, joint swelling, calf tenderness Back exam: Present: normal inspection Neurological exam: Present: alert, oriented X3, CN II-XII intact Psychiatric exam: Present: normal affect, normal mood Skin exam: Present: warm, dry, intact, normal color. Absent: rash <Mateo Stewart - Last Filed: 08/17/23 20:15> Course <Mateo Stewart - Last Filed: 08/17/23 20:15> Vital Signs 08/17/23 08/18/23 08/18/23 19:23 09:14 09:18 Temperature 97.7 F 98.6 F Pulse Rate 82 81 Respiratory 18 18 Rate Blood Pressure 145/99 188/114 172/103 O2 Sat by Pulse 98 98 Oximetry - Reevaluation(s) Reevaluation #1: 08/17/23 20:15 Medical record is reviewed (Mateo Stewart) Medical Decision Making <Nehemias Clifton - Last Filed: 08/18/23 09:26> - Medical Decision Making Was pt. sent in by a medical professional or institution (, PA, RECORDS ANALYST, urgent care, hospital, or prison...) When possible be specific @ -No Did you speak to anyone other than the patient for history (EMS, parent, family, police, friend...)? What history was obtained from this source @ -No Did you review nursing and triage notes (agree or disagree)? Why? @ -I reviewed and agree with nursing and triage notes Were old charts reviewed (outside hosp., previous admission, EMS record, old EKG, old radiological studies, urgent care reports/EKG's, prison records)? Report findings @ -No old charts were reviewed Differential Diagnosis (chest pain, altered mental status, abdominal pain women, abdominal pain men, vaginal bleeding, weakness, fever, dyspnea, syncope, headache, dizziness, GI bleed, back pain, seizure, CVA, palpatations, mental health, musculoskeletal)? @Differential Mental Health Depression, anxiety, bipolar, psychosis, schizophrenia, borderline personality, situational depression, adjustment disorder, behavioral disorder, brain tumor, malingering, substance abuse, encephalopathy, medication reaction, dementia, hypothyroidism, degenerative neurologic disorder, lupus.... This is not meant to be all-inclusive list EKG interpreted by me (3pts min.). @ -As above X-rays interpreted by me (1pt min.). @ -None done CT interpreted by me (1pt min.). @ -None done U/S interpreted by me (1pt. min.). @ -None done What testing was considered but not performed or refused? (CT, X-rays, U/S, labs)? Why? @ -None What meds were considered but not given or refused? Why? @ -None Did you discuss the management of the patient with other professionals (professionals i.e. , PA, RECORDS ANALYST, lab, RT, psych nurse, health and social care teacher, taxi driver supervisor, teacher, ship's electronic warfare officer, upper caser)? Give summary @ -No Was smoking cessation discussed for >3mins.? @ -No Was critical care preformed (if so, how long)? @ -No Were there social determinants of health that impacted care today? How? (Homelessness, low income, unemployed, alcoholism, drug addiction, transportation, low edu. Level, literacy, decrease access to med. care, senior living, rehab)? @ -No Was there de-escalation of care discussed even if they declined (Discuss DNR or withdrawal of care, Hospice)? DNR status @ -No What co-morbidities impacted this encounter? (DM, HTN, Smoking, COPD, CAD, Cancer, CVA, ARF, Chemo, Hep., AIDS, mental health diagnosis, sleep apnea, morbid obesity)? @ -[ Was patient admitted / discharged? Hospital course, mention meds given and route, prescriptions, significant lab abnormalities, going to OR and other pertinent info. @ -Patient was medically cleared by previous physician and evaluated by EPS. EPS was able to safety plan with the patient and recommending discharge with outpatient follow-up at this time. Undiagnosed new problem with uncertain prognosis? @ -No Drug Therapy requiring intensive monitoring for toxicity (Heparin, Nitro, Insulin, Cardizem)? @ -No Were any procedures done? @ -No Diagnosis/symptom? @ -Alcohol intoxication, depression Acute, or Chronic, or Acute on Chronic? @ -[Acute Uncomplicated (without systemic symptoms) or Complicated (systemic symptoms)? @ -Default Side effects of treatment? @ -No Exacerbation, Progression, or Severe Exacerbation? @ -No Poses a threat to life or bodily function? How? (Chest pain, [place], [place], pneumonia, PE, COPD, DKA, ARF, appy, cholecystitis, CVA, Diverticulitis, Homicidal, Addison icidal, threat to staff... and all critical care pts) @ -[Low risk at this time (Nehemias Clifton) - Lab Data Lab Results 08/17/23 Range/Units 20:06 Urine Opiates Screen Not Detected (NotDetected) Ur Oxycodone Screen Not Detected (NotDetected) Urine Methadone Screen Not Detected (NotDetected) Ur Barbiturates Screen Not Detected (NotDetected) U Tricyclic Antidepress Not Detected (NotDetected) Ur Phencyclidine Scrn Not Detected (NotDetected) Ur Amphetamines Screen Not Detected (NotDetected) U Methamphetamines Scrn Not Detected (NotDetected) U Benzodiazepines Scrn Detected H (NotDetected) Urine Cocaine Screen Not Detected (NotDetected) U Marijuana (THC) Screen Detected H (NotDetected) Disposition <Mateo Stewart - Last Filed: 08/17/23 20:15> Is patient prescribed a controlled substance at d/c from ED?: No Time of Disposition: 09:26 <Nehemias Clifton - Last Filed: 08/18/23 09:26> Clinical Impression: Alcohol intoxication, Depression Disposition: HOME SELF-CARE Condition: Fair Instructions (If sedation given, give patient instructions): Alcohol Intoxication (ED), Depression (ED) Referrals: Henny Angel MD [Primary Care Provider] - 1-2 days
[2023-08-17 19:37] VITALS: RESP 18
[2023-08-17 20:31] LABS: Amphetamine Screen,Urine Not Detected (NotDetected); Barbiturate Screen,Urine Not Detected (NotDetected); Benzodiazepines Screen,Urine Detected (NotDetected); Cocaine Screen,Urine Not Detected (NotDetected); Methadone Screen, Urine Not Detected (NotDetected); Opiate Screen,Urine Not Detected (NotDetected); Oxycodone Screen, Urine Not Detected (NotDetected); Phencyclidine Screen,Urine Not Detected (NotDetected); Tricyclic Antidepressant,Urine Not Detected (NotDetected); Urn Cannabinoid Scrn Detected (NotDetected)
[2023-08-18 09:18] VITALS: BP 172/103; PULSE 81; TEMP 98.6
== END 2023-08-18 09:44 | disposition home or self-care (01) ==
LOC: EC 19:21
DX: F32.A Depression, unspecified (principal); F10.129 Alcohol abuse with intoxication, unspecified; J44.9 Chronic obstructive pulmonary disease, unspecified; I25.2 Old myocardial infarction; G40.909 Epilepsy, unspecified, not intractable, without status epilepticus; F17.200 Nicotine dependence, unspecified, uncomplicated; F12.90 Cannabis use, unspecified, uncomplicated; Z79.899 Other long term (current) drug therapy; Z88.0 Allergy status to penicillin; Z88.6 Allergy status to analgesic agent; Z88.8 Allergy status to other drugs, medicaments and biological substances
CPT/HCPCS: 80306; 82075; 99285

== ENCOUNTER 2023-08-22 22:34 | Observation (INO) | payer OTHER ==
--- NOTE | 2023-08-22 23:13 | ED ---
General Adult HPI - General Chief complaint: Chest Pain Stated complaint: Chest pain Time Seen by Provider: 08/22/23 22:37 Source: EMS Mode of arrival: EMS - History of Present Illness Initial comments: Dictation was produced using [employer] dictation software. please excuse any gramma tical, word or spelling errors. Chief Complaint: 57-year-old alcoholic female presents to the emergency department for complaints History of Present Illness: Patient is a 57-year-old female presents emergency department for multiple complaints. She was brought in from home by EMS. Patient allegedly has a history of alcohol dependence. According to EMS she was brought here for chest pressure. She has a history of myocardial infarction states that her chest pain feels like previous heart attacks. Upon my initial evaluation she states she is here for swollen feet, headache and generalized weakness. Denies any fever, chills or night sweats. The ROS documented in this emergency department record has been reviewed and confirmed by me. Those systems with pertinent positive or negative responses have been documented in the HPI. All other systems are other negative and/or noncontributory. - Related Data Home Medications Medication Instructions Recorded Confirmed levETIRAcetam [Keppra] 500 mg PO BID 10/23/20 08/02/23 cloNIDine HCL 0.1 mg PO BID 09/03/21 08/02/23 Diclofenac Sodium [Solaraze 3% Gel] 1 applic TOPICAL DAILY 08/02/23 08/02/23 Fluorometholone 0.1% Ophth Sharmin 1 drops BOTH EYES BID 08/02/23 08/02/23 [Fml] Loteprednol Etabonate [Alrex] 1 drop BOTH EYES BID 08/02/23 08/02/23 Multivitamins, Thera [Multivitamin 1 tab PO DAILY 08/02/23 08/02/23 (formulary)] Previous Rx's Medication Instructions Recorded Thiamine [Vitamin B-1] 100 mg PO DAILY #30 tablet 07/12/23 Enoxaparin [Lovenox] 40 mg SQ DAILY each 08/05/23 HYDROcodone/APAP 5-325MG [[place] 0.5 each PO Q6HR PRN #4 tab 08/05/23 5-325] Magnesium Oxide [Mag-Ox] 400 mg PO DAILY #30 tablet 08/05/23 Nicotine 14Mg/24Hr Patch [Habitrol] 1 patch TRANSDERM DAILY patch 08/05/23 Potassium Chloride ER [K-Dur 20] 20 meq PO DAILY #30 tab 08/05/23 Allergies Allergy/AdvReac Type Severity Reaction Status Date / Time Penicillins Allergy Rash/Hives/Swelling Verified 08/22/23 22:41 all over body NSAIDS (Non-Steroidal AdvReac Unknown upset Verified 08/22/23 22:41 Anti-Inflamma stomach sertraline HCl [From Zoloft] AdvReac Suicidal/Ag Verified 08/22/23 22:41 ression Review of Systems ROS Statement: Those systems with pertinent positive or pertinent negative responses have been documented in the HPI. ROS Other: All systems not noted in ROS Statement are negative. Past Medical History Past Medical History: COPD, Liver Disease, Myocardial Infarction ([place]), Seizure Disorder, Vascular Disorder Additional Past Medical History / Comment(s): constpation, last bowel movement 4 days ago, feeling bloated,feeling of fullness, and abdominal pain, feels hungry then over eats then vomits to feel better, LAST SEIZURE - JANUARY 2021, "broken heart syndrome"., elevated liver enzymes, "dislocated disks", hx cervical cancer Last Myocardial Infarction Date:: 2019 History of Any Multi-Drug Resistant Organisms: None Reported Past Surgical History: Section, Heart Catheterization, Tubal Ligation Additional Past Surgical History / Comment(s): ORIF rt ankle/hardware later removed, exploratory lap, PAIN CLINIC PROCEDURE, BILAT CATARACTS REMOVED WITH LENS IMPLANTS, procedure to open a vein in left leg-couldn't confirm which leg, partial amputation rt hand middle finger, "procedure to remove cervical cancer" Past Anesthesia/Blood Transfusion Reactions: No Reported Reaction Past Psychological History: Anxiety, Bipolar, Depression, PTSD Smoking Status: Current every day smoker Past Alcohol Use History: Abuse, Daily, Heavy Past Drug Use History: Marijuana - Past Family History Father Family Medical History: Cancer, Prostate Disorder, Pulmonary Embolus Sister(s) Family Medical History: Cancer Brother(s) Family Medical History: Cancer Additional Family Medical History / Comment(s): colon and bladder General Exam - General Exam Comments Initial Comments: PHYSICAL EXAM: General Impression: Alert and oriented x3, not in acute distress HEENT: Normocephalic atraumatic, extra-ocular movements intact, pupils equal and reactive to light bilaterally, mucous membranes moist. Cardiovascular: Heart regular rate and rhythm Chest: Able to complete full sentences, no retractions, no tachypnea Abdomen: abdomen soft, non-tender, non-distended, no organomegaly Musculoskeletal: Pulses present and equal in all extremities, n 1+ pedal edema, no tibial edema Motor: no focal deficits noted Neurological: CN II-XII grossly intact, no focal motor or sensory deficits noted Skin: Intact with no visualized rashes Psych: Normal affect and mood Course Vital Signs 08/22/23 22:35 Temperature 97.9 F Pulse Rate 80 Respiratory 18 Rate Blood Pressure 159/111 O2 Sat by Pulse 99 Oximetry EKG Findings - EKG Comments: EKG Findings:: My EKG interpretation: Ventricular rate 81, sinus rhythm,. 175, QRS 89, QTc 443. No MI prolongation, no QTC prolongation, no ST or T-wave changes noted. Overall, this EKG is unremarkable Medical Decision Making - Medical Decision Making Was pt. sent in by a medical professional or institution (, PA, SENIOR SQL SERVER DBA, urgent care, hospital, or prison...) When possible be specific @ -No Did you speak to anyone other than the patient for history (EMS, parent, family, police, friend...)? What history was obtained from this source @ -No Did you review nursing and triage notes (agree or disagree)? Why? @ -I reviewed and agree with nursing and triage notes Were old charts reviewed (outside hosp., previous admission, EMS record, old EKG, old radiological studies, urgent care reports/EKG's, prison records)? Report findings @ -No old charts were reviewed Differential Diagnosis (chest pain, altered mental status, abdominal pain women, abdominal pain men, vaginal bleeding, musculoskeletal, weakness, fever, dyspnea, syncope, headache, dizziness, GI bleed, back pain, seizure, CVA, palpatations, mental health)? @ -Differential Chest Pain: Stable Angina, Unstable Angina, STEMI, NSTEMI Aortic Dissection, Pneumothorax, Musculoskeletal, Esophageal Spasm GERD, Cholecystitis, Pancreatitis, Zoster, this is not meant to be an all-inclusive list. EKG interpreted by me (3pts min.). @ -See above X-rays interpreted by me (1pt min.). @ -Chest x-ray is nonacute CT interpreted by me (1pt min.). @ -None done U/S interpreted by me (1pt. min.). @ -None done What testing was considered but not performed or refused? (CT, X-rays, U/S, labs)? Why? @ -None What meds were considered but not given or refused? Why? @ -None Did you discuss the management of the patient with other professionals (professionals i.e. DrRenetta, PA, SENIOR SQL SERVER DBA, lab, RT, psych nurse, rn social services, generating plant superintendent, teacher, employee service officer, corrections caseworker)? Give summary @ -Case discussed with hospitalist for admission Was smoking cessation discussed for >3mins.? @ -No Was critical care preformed (if so, how long)? @ -No Were there social determinants of health that impacted care today? How? (Yun elessness, low income, unemployed, alcoholism, drug addiction, transportation, low edu. Level, literacy, decrease access to med. care, residential, rehab)? @ -No Was there de-escalation of care discussed even if they declined (Discuss DNR or withdrawal of care, Hospice)? DNR status @ -No What co-morbidities impacted this encounter? (DM, HTN, Smoking, COPD, CAD, Cancer, CVA, ARF, Chemo, Hep., AIDS, mental health diagnosis, sleep apnea, morbid obesity)? @ -None Was patient admitted / discharged? Hospital course, mention meds given and route, prescriptions, significant lab abnormalities, going to OR and other pertinent info. @ -57-year-old alcoholic female presents to the ER for atypical chest pain typical features. She does have a history of myocardial infarction she does state that her symptoms feel like a previous heart attack she was diagnosed with. Vital signs are stable. Initial EKG is unremarkable. Patient did report relief of her symptoms with nitro given to her by prehospital providers along with aspirin. Laboratory evaluation is obtained. Troponin is negative. Serum alcohol is 327. Patient will be admitted to observation with for cardiac monitoring, serial troponins and cardiology consultation. Undiagnosed new problem with uncertain prognosis? @ -No Drug Therapy requiring intensive monitoring for toxicity (Heparin, Nitro, Insulin, Cardizem)? @ -No Were any procedures done? @ -No Diagnosis/symptom? Acute, or Chronic, or Acute on Chronic? Uncomplicated (without systemic symptoms) or Complicated (systemic symptoms)? @ -Chest pain Side effects of treatment? @ -No Exacerbation, Progression, or Severe Exacerbation? @ -No Poses a threat to life or bodily function? How? (Chest pain, [place], ID, pneumonia, PE, COPD, DKA, ARF, appy, cholecystitis, CVA, Diverticulitis, Homicidal, Suicidal, threat to staff... and all critical care pts) @ -Yes - Lab Data Result diagrams: 08/22/23 22:50 08/22/23 22:50 Lab Results 08/22/23 08/22/23 08/22/23 Range/Units 22:50 22:50 22:50 WBC 6.5 (3.8-10.6) k/uL RBC 3.88 (3.80-5.40) m/uL Hgb 13.8 (11.4-16.0) gm/dL Hct 39.2 (34.0-46.0) % MCV 101.2 H (80.0-100.0) fL MCH 35.5 H (25.0-35.0) pg MCHC 35.1 (31.0-37.0) g/dL RDW 13.6 (11.5-15.5) % Plt Count 334 (150-450) k/uL MPV 7.5 Neutrophils % 51 % Lymphocytes % 36 % Monocytes % 9 % Eosinophils % 1 % Basophils % 1 % Neutrophils # 3.3 (1.3-7.7) k/uL Lymphocytes # 2.4 (1.0-4.8) k/uL Monocytes # 0.6 (0-1.0) k/uL Eosinophils # 0.1 (0-0.7) k/uL Basophils # 0.1 (0-0.2) k/uL Macrocytosis Slight PT 9.9 L (10.0-12.5) sec INR 0.9 (<1.2) APTT 25.5 (22.0-30.0) sec Sodium 140 (137-145) mmol/L Potassium 3.6 (3.5-5.1) mmol/L Chloride 107 (98-107) mmol/L Carbon Dioxide 25 (22-30) mmol/L Anion Gap 8 mmol/L BUN 8 (7-17) mg/dL Creatinine 0.34 L (0.52-1.04) mg/dL Est GFR (CKD-EPI)AfAm >90 (>60 ml/min/1.73 sqM) Est GFR (CKD-EPI)NonAf >90 (>60 ml/min/1.73 sqM) Glucose 88 (74-99) mg/dL Calcium 8.6 (8.4-10.2) mg/dL Magnesium 2.1 (1.6-2.3) mg/dL Total Bilirubin 0.4 (0.2-1.3) mg/dL AST 57 H (14-36) U/L ALT 23 (4-34) U/L Alkaline Phosphatase 100 (38-126) U/L Troponin I (0.000-0.034) ng/mL Total Protein 6.6 (6.3-8.2) g/dL Albumin 3.9 (3.5-5.0) g/dL Serum Alcohol 327 H* mg/dL 08/22/23 Range/Units 22:50 WBC (3.8-10.6) k/uL RBC (3.80-5.40) m/uL Hgb (11.4-16.0) gm/dL Hct (34.0-46.0) % MCV (80.0-100.0) fL MCH (25.0-35.0) pg MCHC (31.0-37.0) g/dL RDW (11.5-15.5) % Plt Count (150-450) k/uL MPV Neutrophils % % Lymphocytes % % Monocytes % % Eosinophils % % Basophils % % Neutrophils # (1.3-7.7) k/uL Lymphocytes # (1.0-4.8) k/uL Monocytes # (0-1.0) k/uL Eosinophils # (0-0.7) k/uL Basophils # (0-0.2) k/uL Macrocytosis PT (10.0-12.5) sec INR (<1.2) APTT (22.0-30.0) sec Sodium (137-145) mmol/L Potassium (3.5-5.1) mmol/L Chloride (98-107) mmol/L Carbon Dioxide (22-30) mmol/L Anion Gap mmol/L BUN (7-17) mg/dL Creatinine (0.52-1.04) mg/dL Est GFR (CKD-EPI)AfAm (>60 ml/min/1.73 sqM) Est GFR (CKD-EPI)NonAf (>60 ml/min/1.73 sqM) Glucose (74-99) mg/dL Calcium (8.4-10.2) mg/dL Magnesium (1.6-2.3) mg/dL Total Bilirubin (0.2-1.3) mg/dL AST (14-36) U/L ALT (4-34) U/L Alkaline Phosphatase (38-126) U/L Troponin I <0.012 (0.000-0.034) ng/mL Total Protein (6.3-8.2) g/dL Albumin (3.5-5.0) g/dL Serum Alcohol mg/dL Disposition Clinical Impression: Chest pain Disposition: ADMITTED IP TO THIS HOSP Condition: Fair Referrals: Henny Angel MD [Primary Care Provider] - 1-2 days Decision Time: 01:18
[2023-08-22 23:32] LABS: Basophils # (A) 0.1 k/uL (0-0.2); Basophils % (A) 1 %; Eosinophils # (A) 0.1 k/uL (0-0.7); Eosinophils % (A) 1 %; HCT 39.2 % (34.0-46.0); HGB 13.8 gm/dL (11.4-16.0); Lymphocytes # (A) 2.4 k/uL (1.0-4.8); Lymphocytes % (A) 36 %; MCH 35.5 pg (25.0-35.0); MCHC 35.1 g/dL (31.0-37.0); MCV 101.2 fL (80.0-100.0); Macrocytosis Slight; Mean Platelet Volume 7.5; Monocytes # (A) 0.6 k/uL (0-1.0); Monocytes % (A) 9 %; Neutrophils # (A) 3.3 k/uL (1.3-7.7); Neutrophils % (A) 51 %; Platelet Count 334 k/uL (150-450); RBC 3.88 m/uL (3.80-5.40); RDW 13.6 % (11.5-15.5); WBC 6.5 k/uL (3.8-10.6)
[2023-08-22 23:44] LABS: INR 0.9 (<1.2); Partial Thromboplastin Time 25.5 sec (22.0-30.0); Prothrombin Time 9.9 sec (10.0-12.5)
[2023-08-22 23:55] LABS: ALT 23 U/L (4-34); AST 57 U/L (14-36); African American GFR (CKD) >90 (>60 ml/min/1.73 sqM); Albumin 3.9 g/dL (3.5-5.0); Alkaline Phosphatase 100 U/L (38-126); Anion Gap 8 mmol/L; Blood Urea Nitrogen 8 mg/dL (7-17); Calcium 8.6 mg/dL (8.4-10.2); Carbon Dioxide 25 mmol/L (22-30); Chloride 107 mmol/L (98-107); Glucose 88 mg/dL (74-99); Magnesium 2.1 mg/dL (1.6-2.3); Non-African American GFR(CKD) >90 (>60 ml/min/1.73 sqM); Potassium 3.6 mmol/L (3.5-5.1); Sodium 140 mmol/L (137-145); Total Bilirubin 0.4 mg/dL (0.2-1.3); Total Protein 6.6 g/dL (6.3-8.2)
[2023-08-23 00:05] LABS: Alcohol 327 mg/dL
--- NOTE | 2023-08-23 00:43 | XR ---
EXAM: XR Chest, 2 Views CLINICAL HISTORY: ITS.REASON XR Reason: Chest Pain TECHNIQUE: Frontal and lateral views of the chest. COMPARISON: 08/15/2023. FINDINGS: Lungs: Unremarkable. No consolidative changes. Pleural space: Unremarkable. No pneumothorax. No pleural effusions. Heart: Unremarkable. No cardiomegaly. Mediastinum: Cardiomediastinal silhouette unremarkable. Bones/joints: The osseous structures and soft tissues are unremarkable. No acute fracture. IMPRESSION: No active disease, unchanged.
[2023-08-23] MEDS ORDERED: NITROGLYCERIN SL TABS 0.4 MG TAB SUBLINGUAL PRN (01:14)
[2023-08-23] MEDS ORDERED: LORazepam 2 MG/ML INJ IV PRN (01:18)
[2023-08-23] MEDS: THIAMINE 100 MG/ML 2 ML VIAL IM STA (01:25)
[2023-08-23] MEDS: MORPHINE SULFATE 4 MG/ML SYRINGE IVP STA (01:26)
[2023-08-23] MEDS: LORazepam 2 MG/ML INJ IV PRN ×2 (03:39→06:52)
--- NOTE | 2023-08-23 09:39 | P.CRDCN ---
History of Present Illness Consult date: 08/23/23 Chief complaint: Chest pain History of present illness: This is a 57-year-old female patient who is known to our service from before with a past medical history significant for history of stress-induced cardiomyopathy as well as excessive alcohol use and hypertension and dyslipidemia and smoking. The patient somewhat is a poor historian and she presented to the emergency department with multiple complaints including chest discomfort. She described the discomfort as a dull feeling in the middle of the chest with no radiation into the arms or neck or shoulders or back and no associated symptoms of any shortness of breath or dizziness or lightheadedness or any feeling of heart racing or fluttering or any presyncope or syncope. Further investigation performed including an EKG and that showed sinus mechanism with no ischemic ST or T wave abnormalities. Troponin came in to be unremarkable. Please note that alcohol level was severely elevated and the patient admitted that she continues to drink alcohol excessively with at least 4 beers every day and also she continues to smoke. Her pressure has been elevated and consistent with hypertension crisis and likely secondary to alcohol withdrawal. She stated that she has been compliant with her medications including the current dose of losartan. The physical examination showed regular rhythm with a systolic murmur at the right upper sternal border with clear breathing sounds bilaterally and no carotid bruit and no lower extremities edema noted Assessment Alcohol withdrawal Hypertension secondary likely to be alcohol withdrawal Chest discomfort, atypical, could be related to hypertension History of smoking and the patient continues to smoke History of stress-induced cardiomyopathy Plan Acute coronary event was ruled out Restart the patient on her home medication including losartan/hydrochlorothiazide Continue monitoring the patient and adjust the blood pressure medications Obtain an echocardiogram with Doppler Follow-up with the patient Past Medical History Past Medical History: COPD, Liver Disease, Myocardial Infarction ([place]), Seizure Disorder, Vascular Disorder Additional Past Medical History / Comment(s): constpation, last bowel movement 4 days ago, feeling bloated,feeling of fullness, and abdominal pain, feels hungry then over eats then vomits to feel better, LAST SEIZURE - JANUARY 2021, "broken heart syndrome"., elevated liver enzymes, "dislocated disks", hx cervical cancer Last Myocardial Infarction Date:: 2019 History of Any Multi-Drug Resistant Organisms: None Reported Past Surgical History: Section, Heart Catheterization, Tubal Ligation Additional Past Surgical History / Comment(s): ORIF rt ankle/hardware later removed, exploratory lap, PAIN CLINIC PROCEDURE, BILAT CATARACTS REMOVED WITH LENS IMPLANTS, procedure to open a vein in left leg-couldn't confirm which leg, partial amputation rt hand middle finger, "procedure to remove cervical cancer" Past Anesthesia/Blood Transfusion Reactions: No Reported Reaction Past Psychological History: Anxiety, Bipolar, Depression, PTSD Smoking Status: Current every day smoker Past Alcohol Use History: Abuse, Daily, Heavy Past Drug Use History: Marijuana - Past Family History Father Family Medical History: Cancer, Prostate Disorder, Pulmonary Embolus Sister(s) Family Medical History: Cancer Brother(s) Family Medical History: Cancer Additional Family Medical History / Comment(s): colon and bladder Medications and Allergies Home Medications Medication Instructions Recorded Confirmed Type levETIRAcetam [Keppra] 500 mg PO BID 10/23/20 08/23/23 History cloNIDine HCL 0.1 mg PO BID 09/03/21 08/23/23 History Fluorometholone 0.1% Ophth Sharmin 1 drops BOTH EYES BID 08/02/23 08/23/23 History [Fml] Loteprednol Etabonate [Alrex] 1 drop BOTH EYES BID 08/02/23 08/23/23 History Ketorolac [Toradol] 10 mg PO DIRECTED PRN 08/23/23 08/23/23 History Losartan-Hctz 50-12.5 mg [Hyzaar 1 tab PO DIRECTED 08/23/23 08/23/23 History 50-12.5] Allergies Allergy/AdvReac Type Severity Reaction Status Date / Time Penicillins Allergy Rash/Hives/Swelling Verified 08/23/23 07:00 all over body NSAIDS (Non-Steroidal AdvReac Unknown upset Verified 08/23/23 07:00 Anti-Inflamma stomach sertraline HCl [From Zoloft] AdvReac Suicidal/Ag Verified 08/23/23 07:00 ression Physical Exam Vitals: Vital Signs Temp Pulse Resp BP Pulse Ox 08/23/23 06:35 84 18 172/92 98 08/23/23 04:30 78 18 140/85 99 08/23/23 01:15 81 18 153/83 98 08/22/23 23:30 80 18 143/95 98 08/22/23 22:35 97.9 F 80 18 159/111 99 Intake and Output 08/22/23 08/23/23 08/23/23 22:59 06:59 14:59 Other: Weight 43.545 kg Results 08/22/23 22:50 08/22/23 22:50 Cardiac Enzymes 08/22/23 08/22/23 08/23/23 Range/Units 22:50 22:50 01:53 AST 57 H (14-36) U/L Troponin I <0.012 <0.012 (0.000-0.034) ng/mL 08/23/23 Range/Units 06:50 AST (14-36) U/L Troponin I <0.012 (0.000-0.034) ng/mL Coagulation 08/22/23 Range/Units 22:50 PT 9.9 L (10.0-12.5) sec APTT 25.5 (22.0-30.0) sec CBC 08/22/23 Range/Units 22:50 WBC 6.5 (3.8-10.6) k/uL RBC 3.88 (3.80-5.40) m/uL Hgb 13.8 (11.4-16.0) gm/dL Hct 39.2 (34.0-46.0) % Plt Count 334 (150-450) k/uL Comprehensive Metabolic Panel 08/22/23 Range/Units 22:50 Sodium 140 (137-145) mmol/L Potassium 3.6 (3.5-5.1) mmol/L Chloride 107 (98-107) mmol/L Carbon Dioxide 25 (22-30) mmol/L BUN 8 (7-17) mg/dL Creatinine 0.34 L (0.52-1.04) mg/dL Glucose 88 (74-99) mg/dL Calcium 8.6 (8.4-10.2) mg/dL AST 57 H (14-36) U/L ALT 23 (4-34) U/L Alkaline Phosphatase 100 (38-126) U/L Total Protein 6.6 (6.3-8.2) g/dL Albumin 3.9 (3.5-5.0) g/dL Current Medications Generic Name Dose Route Start Last Admin Trade Name Freq PRN Reason Stop Dose Admin Aspirin 325 mg 08/24/23 09:00 Aspirin 325 Mg Tab PO DAILY EDGARDO Clonidine 0.1 mg 08/23/23 09:30 Clonidine Hcl 0.1 Mg Tab PO BID EDGARDO HCTZ/Losartan Potassium 1 each 08/23/23 09:30 Losartan-Hctz 50-12.5 Mg 1 Each Tab PO DIRECTED EDGARDO Lorazepam 1 mg 08/23/23 01:18 08/23/23 06:52 Lorazepam 2 Mg/Ml Inj IV 1 mg Q1HR PRN Administration CIWA 10 to 15 Lorazepam 1 mg 08/23/23 01:18 08/23/23 03:39 Lorazepam 2 Mg/Ml Inj IV 1 mg Q2HR PRN Administration CIWA 8 or 9 Lorazepam 2 mg 08/23/23 01:18 Lorazepam 2 Mg/Ml Inj IV 08/25/23 01:18 Q10M PRN CIWA 16 or higher Nitroglycerin 0.4 mg 08/23/23 01:14 Nitroglycerin Sl Tabs 0.4 Mg Tab SUBLINGUAL Q5M PRN Chest Pain Thiamine HCl 100 mg 08/24/23 09:00 Thiamine 100 Mg Tab PO DAILY EDGARDO Intake and Output 08/22/23 08/23/23 08/23/23 22:59 06:59 14:59 Other: Weight 43.545 kg 08/22/23 22:50 08/22/23 22:50
[2023-08-23] MEDS: levETIRAcetam 500 MG TAB PO SCH (09:44)
[2023-08-23] MEDS: cloNIDine HCL 0.1 MG TAB PO SCH (09:44)
[2023-08-23] MEDS: LOSARTAN-HCTZ 50-12.5 MG 1 EACH TAB PO SCH (09:50)
[2023-08-23 10:01] VITALS: RESP 16
[2023-08-23] MEDS: HEPARIN SODIUM,PORCINE 5,000 UNIT/ML 1 ML VIAL SQ SCH (17:12)
[2023-08-23] MEDS: HYDROcodone/APAP 5-325MG 1 EACH TAB PO PRN (17:13)
[2023-08-23] MEDS: FLUOROMETHOLONE 0.1% OPHTH DROPS 5 ML BTL BOTH EYES SCH (20:37)
[2023-08-23] MEDS: LOTEPREDNOL ETABONATE BOTH EYES SCH (20:41)
[2023-08-23] MEDS ORDERED: IPRATROPIUM-ALBUTEROL 3 ML NEB INHALATION PRN (23:17)
--- NOTE | 2023-08-23 23:18 | P.HPIM ---
History of Present Illness H&P Date: 08/23/23 Chief Complaint: Chest pain Patient is a 57-year-old female with a past medical history of COPD, daily alcohol use, marijuana use and smoking and history of cervical cancer status postsurgery, history of Takotsubo and prior history of cardiac catheterization with no PCI presents to ER with complaints of chest pain. Patient states that she has been having left upper retrosternal chest pain. She has been having pain for the past few days dull aching worsens with movement. Patient states that she fell on her left side and thought to have a rib fracture. Otherwise denies any complaints of dizziness or lightheadedness. No nausea or vomiting. No history of shortness of breath. No leg swelling. Denies any palpitations. On admission chest x-ray showed no active disease. EKG showed sinus rhythm. Blood pressure was elevated with SBP in the 170s this morning. Currently on room air. Laboratory data showed WBC 6.5 hemoglobin 13.8 and platelets 334 Sodium 140 potassium 3.6 and chloride 107 bicarb is 25 BUN 18 creatinine 0.34 AST 57 ALT 23 and alk phos 100 and troponin x 3 negative Serum alcohol level is 327 on admission Review of Systems Constitutional: Patient denies any fever or chills . No generalized weakness or weight loss. Abdomen: Patient denied nausea vomiting and diarrhea and abdominal pain. Cardiovascular: Patient complains of chest pain. No short of breath no palpitations. No leg swelling. Respiratory: patient denied any cough is from production. No shortness of breath Neurologic: Patient denied any numbness or tingling headache. Musculoskeletal: Patient denies any complaints of joint swelling or deformity. Skin: Negative Psychiatric: Negative Endocrine: No heat or cold intolerance. No recent weight gain. Genitourinary: No dysuria or hematuria. All other 14 point ROS negative except the above Past Medical History Past Medical History: COPD, Liver Disease, Myocardial Infarction ([place]), Seizure Disorder, Vascular Disorder Additional Past Medical History / Comment(s): constpation, last bowel movement 4 days ago, feeling bloated,feeling of fullness, and abdominal pain, feels hungry then over eats then vomits to feel better, LAST SEIZURE - JANUARY 2021, "broken heart syndrome"., elevated liver enzymes, "dislocated disks", hx cervical cancer Last Myocardial Infarction Date:: 2019 History of Any Multi-Drug Resistant Organisms: None Reported Past Surgical History: Section, Heart Catheterization, Tubal Ligation Additional Past Surgical History / Comment(s): ORIF rt ankle/hardware later removed, exploratory lap, PAIN CLINIC PROCEDURE, BILAT CATARACTS REMOVED WITH LENS IMPLANTS, procedure to open a vein in left leg-couldn't confirm which leg, partial amputation rt hand middle finger, "procedure to remove cervical cancer" Past Anesthesia/Blood Transfusion Reactions: No Reported Reaction Past Psychological History: Anxiety, Bipolar, Depression, PTSD Smoking Status: Current every day smoker Past Alcohol Use History: Abuse, Daily, Heavy Past Drug Use History: Marijuana - Past Family History Father Family Medical History: Cancer, Prostate Disorder, Pulmonary Embolus Sister(s) Family Medical History: Cancer Brother(s) Family Medical History: Cancer Additional Family Medical History / Comment(s): colon and bladder Medications and Allergies Home Medications Medication Instructions Recorded Confirmed Type levETIRAcetam [Keppra] 500 mg PO BID 10/23/20 08/23/23 History cloNIDine HCL 0.1 mg PO BID 09/03/21 08/23/23 History Fluorometholone 0.1% Ophth Sharmin 1 drops BOTH EYES BID 08/02/23 08/23/23 History [Fml] Loteprednol Etabonate [Alrex] 1 drop BOTH EYES BID 08/02/23 08/23/23 History Ketorolac [Toradol] 10 mg PO DIRECTED PRN 08/23/23 08/23/23 History Losartan-Hctz 50-12.5 mg [Hyzaar 1 tab PO DIRECTED 08/23/23 08/23/23 History 50-12.5] Allergies Allergy/AdvReac Type Severity Reaction Status Date / Time Penicillins Allergy Rash/Hives/Swelling Verified 08/23/23 07:00 all over body NSAIDS (Non-Steroidal AdvReac Unknown upset Verified 08/23/23 07:00 Anti-Inflamma stomach sertraline HCl [From Zoloft] AdvReac Suicidal/Ag Verified 08/23/23 07:00 ression Physical Exam Vitals: Vital Signs Temp Pulse Resp BP Pulse Ox 08/23/23 06:35 84 18 172/92 98 08/23/23 04:30 78 18 140/85 99 08/23/23 01:15 81 18 153/83 98 08/22/23 23:30 80 18 143/95 98 08/22/23 22:35 97.9 F 80 18 159/111 99 Intake and Output 08/22/23 08/23/23 08/23/23 22:59 06:59 14:59 Other: Weight 43.545 kg PHYSICAL EXAMINATION: Patient is lying in the bed comfortably, no acute distress, awake alert and oriented.. HEENT: Normocephalic. Neck is supple. Pupils reactive. Nostrils clear. Oral cavity is moist. Neck reveals no JVD, carotid bruits, or thyromegaly. CHEST EXAMINATION: Trachea is central. Symmetrical expansion. Left upper lobe chest wall tenderness. Lung lund clear to auscultation and percussion. CARDIAC: Normal S1, S2 with no gallops. No murmurs. ABDOMEN: Soft. Bowel sounds normal. No organomegaly. No abdominal bruits. Extremities: reveal no edema. No clubbing or cyanosis Neurologically awake, alert, oriented x3 with well-coordinated movements. No focal deficits noted Skin: No rash or skin lesions. Psychiatric: Coperative. Nonsuicidal Musculoskeletal: No joint swelling or deformity. Normal range of motion. Results CBC & Chem 7: 08/22/23 22:50 08/22/23 22:50 Labs: Abnormal Lab Results - Last 24 Hours (Table) 08/22/23 08/22/23 08/22/23 Range/Units 22:50 22:50 22:50 MCV 101.2 H (80.0-100.0) fL MCH 35.5 H (25.0-35.0) pg PT 9.9 L (10.0-12.5) sec Creatinine 0.34 L (0.52-1.04) mg/dL AST 57 H (14-36) U/L Serum Alcohol 327 H* mg/dL Thrombosis Risk Factor Assmnt - DVT/VTE Prophylaxis DVT/VTE Prophylaxis: Pharmacologic Prophylaxis ordered Assessment and Plan Assessment: Chest pain likely musculoskeletal. Ruled out ACS. Acute alcohol intoxication on admission Uncontrolled hypertension likely due to alcohol withdrawals Ongoing nicotine addiction and marijuana use Prior history of stress-induced cardiomyopathy and cardiac catheterization no PCI Alcohol use disorder COPD not in exacerbation DVT prophylaxis with heparin subcu Plan: Patient will be continued on telemetry. EKG x 3 negative. 2D echocardiogram was ordered to assess left ventricular systolic function. Cardiology is on board. Continued pain management with Agra 5 as needed every 6 hourly. Patient was started back on home blood pressure medications. Continue to monitor for alcohol withdrawal symptoms Continue thiamine and multivitamins. Follow-up lipid panel and continue with aspirin. Patient has been counseled extensively for smoking cessation and alcohol abstinence as well as marijuana use. Time with Patient: Greater than 30
--- NOTE | 2023-08-24 07:18 | P.PN ---
Subjective Progress Note Date: 08/24/23 Principal diagnosis: cp This is a 57-year-old female patient who is known to our service from before with a past medical history significant for history of stress-induced cardiomy opathy as well as excessive alcohol use and hypertension and dyslipidemia and smoking. The patient somewhat is a poor historian and she presented to the emergency department with multiple complaints including chest discomfort. She described the discomfort as a dull feeling in the middle of the chest with no radiation into the arms or neck or shoulders or back and no associated symptoms of any shortness of breath or dizziness or lightheadedness or any feeling of heart racing or fluttering or any presyncope or syncope. Further investigation performed including an EKG and that showed sinus mechanism with no ischemic ST or T wave abnormalities. Troponin came in to be unremarkable. Please note that alcohol level was severely elevated and the patient admitted that she continues to drink alcohol excessively with at least 4 beers every day and also she continues to smoke. Her pressure has been elevated and consistent with hypertension crisis and likely secondary to alcohol withdrawal. She stated that she has been compliant with her medications including the current dose of losartan. The physical examination showed regular rhythm with a systolic murmur at the right upper sternal border with clear breathing sounds bilaterally and no carotid bruit and no lower extremities edema noted August 24, 2023 The patient was seen and evaluated this morning. Currently she is chest pain-free. She has no shortness of breath. The blood pressure has been under excellent control on the current medical regimen. The echo is still pending. The physical examination reveals a regular rhythm with a systolic murmur at the right upper sternal border with clear breathing sounds bilaterally and no carotid bruit and no edema was noted Assessment Alcohol withdrawal Hypertension secondary likely to be alcohol withdrawal Chest discomfort, atypical, could be related to hypertension History of smoking and the patient continues to smoke History of stress-induced cardiomyopathy Plan Acute coronary event was ruled out Follow-up on the echocardiogram Follow-up with the patient Objective - Vital Signs Vital signs: Vital Signs Temp 98.5 F 08/24/23 02:14 Pulse 79 08/24/23 02:14 Resp 16 08/24/23 02:14 BP 133/79 08/24/23 02:14 Pulse Ox 98 08/24/23 02:14 FiO2 Intake & Output 08/23/23 08/24/23 08/24/23 18:59 06:59 18:59 Other: # Voids 2 - Labs CBC & Chem 7: 08/22/23 22:50 08/22/23 22:50
[2023-08-24 08:40] LABS: Basophils # (A) 0.04 X 10*3/uL (0.00-0.10); Basophils % (A) 0.9 %; Eosinophils # (A) 0.05 X 10*3/uL (0.04-0.35); Eosinophils % (A) 1.1 %; HCT 35.9 % (37.2-46.3); HGB 12.7 g/dL (12.0-15.0); Lymphocytes # (A) 1.39 X 10*3/uL (0.90-5.00); Lymphocytes % (A) 30.5 %; MCH 35.2 pg (27.0-32.0); MCHC 35.4 g/dL (32.0-37.0); MCV 99.4 FL (80.0-97.0); Mean Platelet Volume 9.8 FL (9.5-12.2); Monocytes # (A) 0.51 X 10*3/uL (0.20-1.00); Monocytes % (A) 11.2 %; NRBC Per 100 WBC 0 X 10*3/uL (0.00-0.01); Neutrophils # (A) 2.55 X 10*3/uL (1.80-7.70); Neutrophils % (A) 55.9 %; Platelet Count 283 X 10*3/uL (140-440); RBC 3.61 X 10*6/uL (4.10-5.20); WBC 4.56 X 10*3/uL (4.50-10.00)
[2023-08-24 08:42] LABS: ALT 16 U/L (8-44); AST 32 U/L (13-35); Albumin 3.7 g/dL (3.8-4.9); Albumin/Globulin Ratio 1.95 Ratio (1.60-3.17); Alkaline Phosphatase 93 U/L (41-126); BUN/Creat Ratio 11.67 Ratio (12.00-20.00); Blood Urea Nitrogen 3.5 mg/dL (9.0-27.0); Calcium 9.5 mg/dL (8.7-10.3); Chloride 104 mmol/L (96-109); Chol/HDL Ratio 3.21 Ratio; Globulin 1.9 g/dL (1.6-3.3); Glucose 84 mg/dL (70-110); LDL Cholesterol,Calculated 134.9 mg/dL (0.0-131.0); Potassium 3.6 mmol/L (3.5-5.5); Sodium 139 mmol/L (135-145); Total Bilirubin 0.6 mg/dL (0.3-1.2); Total Protein 5.6 g/dL (6.2-8.2)
[2023-08-24 08:46] VITALS: BP 150/90; PULSE 65; TEMP 98.4
[2023-08-24] MEDS: LORazepam 1 MG TAB PO STA (08:47)
[2023-08-24] MEDS: ASPIRIN 325 MG TAB PO SCH (08:47)
[2023-08-24] MEDS: THIAMINE 100 MG TAB PO SCH (08:47)
--- NOTE | 2023-08-24 10:01 | CA ---
Transthoracic Echo Report Name: Zuri Santo Age: 57 Gender: F : 1965 Exam Date: 08/23/2023 15:17 Exam Location: [facility] Ht (in): 60 Wt (lb): 96 Ordering Physician: Yandel Falk MD ([id number]) Attending/Referring Phys: Lipstick Molder Deanne Gross RCS Procedure CPT: Indications: CP Cardiac Hx: Technical Quality: Poor Contrast 1: Total Dose (mL): Contrast 2: Total Dose (mL): MEASUREMENTS (Male / Female) Normal Values 2D ECHO LV Diastolic Diameter PLAX 3.9 cm 4.2 - 5.9 / 3.9 - 5.3 cm LV Systolic Diameter PLAX 2.9 cm IVS Diastolic Thickness 1.0 cm 0.6 - 1.0 / 0.6 - 0.9 cm LVPW Diastolic Thickness 0.7 cm 0.6 - 1.0 / 0.6 - 0.9 cm LV Relative Wall Thickness 0.4 LVOT Diameter 1.9 cm LA Volume 25.3 cm??? 18 - 58 / 22 - 52 cm??? LA Volume Index 18.7 cm???/m??? 16 - 28 cm???/m??? DOPPLER AV Peak Velocity 144.8 cm/s AV Peak Gradient 8.4 mmHg AV Mean Velocity 93.9 cm/s AV Mean Gradient 3.9 mmHg AV Velocity Time Integral 29.0 cm LVOT Peak Velocity 98.6 cm/s LVOT Peak Gradient 3.9 mmHg LVOT Velocity Time Integral 19.8 cm LVOT Stroke Volume 55.2 cm??? LVOT Stroke Volume Index 40.4 ml/m??? LVOT Cardiac Index 2731.0 cm???/min???m??? AV Area Cont Eq vti 1.9 cm??? AV Area Cont Eq pk 1.9 cm??? Mitral E Point Velocity 72.5 cm/s Mitral A Point Velocity 50.2 cm/s Mitral E to A Ratio 1.4 MV Deceleration Time 168.4 ms MV E' Velocity 5.9 cm/s Mitral E to MV E' Ratio 12.3 FINDINGS Left Ventricle Left ventricular ejection fraction is estimated at 55-60 %. Left ventricular cavity size normal. Left ventricular wall thickness normal. No obvious regional wall motion abnormalities. Right Ventricle Normal right ventricular size and function. Unable to estimate right ventricular systolic pressure. Right Atrium Normal right atrial size. Left Atrium Normal left atrial size. Mitral Valve Structurally normal mitral valve. No evidence for mitral valve prolapse. No mitral stenosis. Trace mitral regurgitation. Aortic Valve Trileaflet aortic valve. No aortic stenosis. No aortic regurgitation. Tricuspid Valve Structurally normal tricuspid valve. No tricuspid stenosis. No tricuspid regurgitation. Pulmonic Valve Pulmonic valve not well visualized. No pulmonic stenosis. No pulmonic regurgitation. Pericardium No pericardial effusion. Aorta Aortic annulus normal. Ascending aorta not well visualized. CONCLUSIONS Technically difficult study for interpretation Normal LV systolic function Previewed by: Dr. Yandel Falk MD (Electronically Signed) Final Date: 24 August 2023 10:00
== END 2023-08-24 12:04 | disposition home or self-care (01) ==
LOC: EC 22:34 → 6NMEDSUR 08-23 01:16
PROVIDERS: ADMIT Hospitalist; ATTEND Hospitalist
DX: R07.89 Other chest pain (principal); F10.239 Alcohol dependence with withdrawal, unspecified; F10.229 Alcohol dependence with intoxication, unspecified; J44.9 Chronic obstructive pulmonary disease, unspecified; F31.9 Bipolar disorder, unspecified; F43.10 Post-traumatic stress disorder, unspecified; I10 Essential (primary) hypertension; E78.5 Hyperlipidemia, unspecified; I25.2 Old myocardial infarction; I51.81 Takotsubo syndrome; F12.90 Cannabis use, unspecified, uncomplicated; F17.200 Nicotine dependence, unspecified, uncomplicated; Z85.41 Personal history of malignant neoplasm of cervix uteri; Z79.899 Other long term (current) drug therapy; Z88.0 Allergy status to penicillin; Z88.6 Allergy status to analgesic agent; Y90.8 Blood alcohol level of 240 mg/100 ml or more
CPT/HCPCS: 96376 ×2; 96372 ×3; 96374; 96375; 99285; 36415; 93005; 93306; 80061; 80053 ×2; 83735; 84484 ×2; 85025 ×2; 85610; 85730; 71046; G0378 ×2; G0480; J2060; J2270; J1644 ×2; J3411; 80320

== ENCOUNTER 2023-08-25 23:58 | Emergency (ER) | payer OTHER ==
[2023-08-26 00:16] VITALS: RESP 16; TEMP 97.5
--- NOTE | 2023-08-26 01:12 | ED ---
General Adult HPI - General Chief complaint: Recheck/Abnormal Lab/Rx Stated complaint: ETOH Time Seen by Provider: 08/26/23 00:05 Source: patient, EMS Mode of arrival: EMS Limitations: no limitations - History of Present Illness Initial comments: Dictation was produced using [employer] dictation software. please excuse any grammatical, word or spelling errors. Chief Complaint: 57-year-old female presents with hypertension History of Present Illness: 57-year-old alcoholic female presents to the emergency department hypertension. EMS was called by patient's significant other. Patient was recently admitted to the hospital for 3 days. Denies any pain. She does report a history of hypertension. She drinks daily. She states that she had some alcohol intake today. The ROS documented in this emergency department record has been reviewed and confirmed by me. Those systems with pertinent positive or negative responses have been documented in the HPI. All other systems are other negative and/or noncontributory. - Related Data Home Medications Medication Instructions Recorded Confirmed levETIRAcetam [Keppra] 500 mg PO BID 10/23/20 08/23/23 cloNIDine HCL 0.1 mg PO BID 09/03/21 08/23/23 Fluorometholone 0.1% Ophth Sharmin 1 drops BOTH EYES BID 08/02/23 08/23/23 [Fml] Loteprednol Etabonate [Alrex] 1 drop BOTH EYES BID 08/02/23 08/23/23 Ketorolac [Toradol] 10 mg PO DIRECTED PRN 08/23/23 08/23/23 Losartan-Hctz 50-12.5 mg [Hyzaar 1 tab PO DIRECTED 08/23/23 08/23/23 50-12.5] Previous Rx's Medication Instructions Recorded Aspirin 81 mg PO DAILY #30 tab 08/24/23 Nitroglycerin Sl Tabs [Nitrostat] 0.4 mg SUBLINGUAL Q5M PRN #15 tab 08/24/23 Thiamine [Vitamin B-1] 100 mg PO DAILY #30 tab 08/24/23 Allergies Allergy/AdvReac Type Severity Reaction Status Date / Time Penicillins Allergy Rash/Hives/Swelling Verified 08/23/23 07:00 all over body NSAIDS (Non-Steroidal AdvReac Unknown upset Verified 08/23/23 07:00 Anti-Inflamma stomach sertraline HCl [From Zoloft] AdvReac Suicidal/Ag Verified 08/23/23 07:00 ression Review of Systems ROS Statement: Those systems with pertinent positive or pertinent negative responses have been documented in the HPI. ROS Other: All systems not noted in ROS Statement are negative. Past Medical History Past Medical History: COPD, Liver Disease, Myocardial Infarction ([place]), Seizure Disorder, Vascular Disorder Additional Past Medical History / Comment(s): constpation, last bowel movement 4 days ago, feeling bloated,feeling of fullness, and abdominal pain, feels hungry then over eats then vomits to feel better, LAST SEIZURE - JANUARY 2021, "broken heart syndrome"., elevated liver enzymes, "dislocated disks", hx cervical cancer Last Myocardial Infarction Date:: 2019 History of Any Multi-Drug Resistant Organisms: None Reported Past Surgical History: Section, Heart Catheterization, Tubal Ligation Additional Past Surgical History / Comment(s): ORIF rt ankle/hardware later removed, exploratory lap, PAIN CLINIC PROCEDURE, BILAT CATARACTS REMOVED WITH LENS IMPLANTS, procedure to open a vein in left leg-couldn't confirm which leg, partial amputation rt hand middle finger, "procedure to remove cervical cancer" Past Anesthesia/Blood Transfusion Reactions: No Reported Reaction Past Psychological History: Anxiety, Bipolar, Depression, PTSD Smoking Status: Current every day smoker Past Alcohol Use History: Abuse, Daily, Heavy Past Drug Use History: Marijuana - Past Family History Father Family Medical History: Cancer, Prostate Disorder, Pulmonary Embolus Sister(s) Family Medical History: Cancer Brother(s) Family Medical History: Cancer Additional Family Medical History / Comment(s): colon and bladder General Exam - General Exam Comments Initial Comments: PHYSICAL EXAM: General Impression: Alert and oriented x3, not in acute distress HEENT: Normocephalic atraumatic, extra-ocular movements intact, pupils equal and reactive to light bilaterally, mucous membranes moist. Cardiovascular: Heart regular rate and rhythm Chest: Able to complete full sentences, no retractions, no tachypnea Abdomen: abdomen soft, non-tender, non-distended, no organomegaly Musculoskeletal: Pulses present and equal in all extremities, no peripheral edema Motor: no focal deficits noted Neurological: CN II-XII grossly intact, no focal motor or sensory deficits noted Skin: Intact with no visualized rashes Psych: Normal affect and mood Limitations: no limitations Course Vital Signs 08/26/23 08/26/23 08/26/23 00:00 00:55 03:09 Temperature 97.5 F L Pulse Rate 88 88 75 Respiratory 16 16 16 Rate Blood Pressure 149/92 133/85 106/77 O2 Sat by Pulse 100 98 97 Oximetry EKG Findings - EKG Comments: EKG Findings:: My EKG interpretation: Ventricular rate 83, sinus rhythm,. 170, QRS 84, QTc 420. No ND prolongation, no QTC prolongation, no ST or T-wave changes noted. . Overall, this EKG is unremarkable Medical Decision Making - Medical Decision Making Was pt. sent in by a medical professional or institution (, [facility], [facility], urgent care, hospital, or snf...) When possible be specific @ -No Did you speak to anyone other than the patient for history (EMS, parent, family, police, friend...)? What history was obtained from this source @ -Some history obtained from EMS as described above Did you review nursing and triage notes (agree or disagree)? Why? @ -I reviewed and agree with nursing and triage notes Were old charts reviewed (outside hosp., previous admission, EMS record, old EKG, old radiological studies, urgent care reports/EKG's, snf records)? Report findings @ -No old charts were reviewed Differential Diagnosis (chest pain, altered mental status, abdominal pain women, abdominal pain men, vaginal bleeding, musculoskeletal, weakness, fever, dyspnea, syncope, headache, dizziness, GI bleed, back pain, seizure, CVA, palpatations, mental health)? @ -Not applicable EKG interpreted by me (3pts min.). @ -None done X-rays interpreted by me (1pt min.). @ -None done CT interpreted by me (1pt min.). @ -None done U/S interpreted by me (1pt. min.). @ -None done What testing was considered but not performed or refused? (CT, X-rays, U/S, labs)? Why? @ -None What meds were considered but not given or refused? Why? @ -None Did you discuss the management of the patient with other professionals (professionals i.e. , [facility], [facility], lab, RT, psych nurse, licensed clinical social worker, breast surgeon, teacher, property and supply officer, watch caser)? Give summary @ -No Was smoking cessation discussed for >3mins.? @ -No Was critical care preformed (if so, how long)? @ -No Were there social determinants of health that impacted care today? How? (Homelessness, low income, unemployed, alcoholism, drug addiction, transportation, low edu. Level, literacy, decrease access to med. care, retirement, rehab)? @ -No Was there de-escalation of care discussed even if they declined (Discuss DNR or withdrawal of care, Hospice)? DNR status @ -No What co-morbidities impacted this encounter? (DM, HTN, Smoking, COPD, CAD, Cancer, CVA, ARF, Chemo, Hep., AIDS, mental health diagnosis, sleep apnea, morbid obesity)? @ -Alcoholism Was patient admitted / discharged? Hospital course, mention meds given and route, prescriptions, significant lab abnormalities, going to OR and other pertinent info. @ -57-year-old female well-known to emergency department for multiple visitations for alcohol. She is brought in from home by EMS for concerns of hypertension. Vital signs are stable. Blood pressure is 149/92. Patient denies any symptoms of hypertensive emergency. EKG labs are unremarkable. Patient did however have an alcohol level of 381. Patient is an alcoholic. She expresses no desire to try to quit. Patient clinically coherent and functional. at the bedside will take patient home. Undiagnosed new problem with uncertain prognosis? @ -No Drug Therapy requiring intensive monitoring for toxicity (Heparin, Nitro, Insulin, Cardizem)? @ -No Were any procedures done? @ -No Diagnosis/symptom? Acute, or Chronic, or Acute on Chronic? Uncomplicated (without systemic symptoms) or Complicated (systemic symptoms)? @ -Asymptomatic hypertension, alcohol intoxication Side effects of treatment? @ -No Exacerbation, Progression, or Severe Exacerbation? @ -No Poses a threat to life or bodily function? How? (Chest pain, USA, CT, pneumonia, PE, COPD, DKA, ARF, appy, cholecystitis, CVA, Diverticulitis, Homicidal, Suicidal, threat to staff... and all critical care pts) @ -No - Lab Data Result diagrams: 08/26/23 00:40 08/26/23 00:40 Lab Results 08/26/23 08/26/23 Range/Units 00:40 00:40 WBC 7.0 (3.8-10.6) k/uL RBC 4.09 (3.80-5.40) m/uL Hgb 14.3 (11.4-16.0) gm/dL Hct 42.4 (34.0-46.0) % MCV 103.5 H (80.0-100.0) fL MCH 34.9 (25.0-35.0) pg MCHC 33.8 (31.0-37.0) g/dL RDW 13.2 (11.5-15.5) % Plt Count 305 (150-450) k/uL MPV 7.3 Neutrophils % 52 % Lymphocytes % 36 % Monocytes % 8 % Eosinophils % 1 % Basophils % 1 % Neutrophils # 3.6 (1.3-7.7) k/uL Lymphocytes # 2.5 (1.0-4.8) k/uL Monocytes # 0.6 (0-1.0) k/uL Eosinophils # 0.1 (0-0.7) k/uL Basophils # 0.1 (0-0.2) k/uL Macrocytosis Slight Sodium 141 (137-145) mmol/L Potassium 3.9 (3.5-5.1) mmol/L Chloride 109 H (98-107) mmol/L Carbon Dioxide 21 L (22-30) mmol/L Anion Gap 11 mmol/L BUN 5 L (7-17) mg/dL Creatinine 0.41 L (0.52-1.04) mg/dL Est GFR (CKD-EPI)AfAm >90 (>60 ml/min/1.73 sqM) Est GFR (CKD-EPI)NonAf >90 (>60 ml/min/1.73 sqM) Glucose 80 (74-99) mg/dL Calcium 8.7 (8.4-10.2) mg/dL Total Bilirubin 0.3 (0.2-1.3) mg/dL AST 43 H (14-36) U/L ALT 17 (4-34) U/L Alkaline Phosphatase 114 (38-126) U/L Total Protein 6.9 (6.3-8.2) g/dL Albumin 4.1 (3.5-5.0) g/dL Serum Alcohol 381 H* mg/dL Disposition Clinical Impression: Hypertension Disposition: HOME SELF-CARE Condition: Good Instructions (If sedation given, give patient instructions): Alcohol Intoxication (ED) Is patient prescribed a controlled substance at d/c from ED?: No Referrals: Henny Angel MD [Primary Care Provider] - 1-2 days Time of Disposition: 03:53
[2023-08-26 01:13] LABS: Basophils # (A) 0.1 k/uL (0-0.2); Basophils % (A) 1 %; Eosinophils # (A) 0.1 k/uL (0-0.7); Eosinophils % (A) 1 %; HCT 42.4 % (34.0-46.0); HGB 14.3 gm/dL (11.4-16.0); Lymphocytes # (A) 2.5 k/uL (1.0-4.8); Lymphocytes % (A) 36 %; MCH 34.9 pg (25.0-35.0); MCHC 33.8 g/dL (31.0-37.0); MCV 103.5 fL (80.0-100.0); Macrocytosis Slight; Mean Platelet Volume 7.3; Monocytes # (A) 0.6 k/uL (0-1.0); Monocytes % (A) 8 %; Neutrophils # (A) 3.6 k/uL (1.3-7.7); Neutrophils % (A) 52 %; Platelet Count 305 k/uL (150-450); RBC 4.09 m/uL (3.80-5.40); RDW 13.2 % (11.5-15.5)
[2023-08-26 01:36] LABS: ALT 17 U/L (4-34); AST 43 U/L (14-36); African American GFR (CKD) >90 (>60 ml/min/1.73 sqM); Albumin 4.1 g/dL (3.5-5.0); Alkaline Phosphatase 114 U/L (38-126); Anion Gap 11 mmol/L; Blood Urea Nitrogen 5 mg/dL (7-17); Calcium 8.7 mg/dL (8.4-10.2); Carbon Dioxide 21 mmol/L (22-30); Chloride 109 mmol/L (98-107); Glucose 80 mg/dL (74-99); Non-African American GFR(CKD) >90 (>60 ml/min/1.73 sqM); Potassium 3.9 mmol/L (3.5-5.1); Sodium 141 mmol/L (137-145); Total Bilirubin 0.3 mg/dL (0.2-1.3); Total Protein 6.9 g/dL (6.3-8.2)
[2023-08-26 01:50] LABS: Alcohol 381 mg/dL
[2023-08-26] MEDS: MORPHINE SULFATE 4 MG/ML SYRINGE IV STA (01:57)
[2023-08-26 03:14] VITALS: BP 106/77; PULSE 75
== END 2023-08-26 04:11 | disposition home or self-care (01) ==
LOC: EC 23:58
DX: I10 Essential (primary) hypertension (principal); I45.9 Conduction disorder, unspecified; J44.9 Chronic obstructive pulmonary disease, unspecified; I25.2 Old myocardial infarction; F41.9 Anxiety disorder, unspecified; F31.9 Bipolar disorder, unspecified; F17.200 Nicotine dependence, unspecified, uncomplicated; F12.90 Cannabis use, unspecified, uncomplicated; Z88.0 Allergy status to penicillin; Z88.6 Allergy status to analgesic agent; Z88.8 Allergy status to other drugs, medicaments and biological substances; Z79.899 Other long term (current) drug therapy
CPT/HCPCS: 36415; 93005; 80053; 85025; 99284; 96374; G0480; J2270; 80320

== ENCOUNTER 2023-09-05 19:13 | Observation (INO) | payer OTHER ==
--- NOTE | 2023-09-05 19:52 | ED ---
Extremity Problem HPI - General Source: EMS Mode of arrival: EMS Limitations: no limitations <Gabino Nichole - Last Filed: 09/05/23 19:52> - General Source: EMS, RN notes reviewed, old records reviewed Mode of arrival: EMS Limitations: no limitations - History of Present Illness MD Complaint: extremity pain, extremity swelling -: days(s) Location: left, right, upper extremity History of Same: Yes Radiation: proximal Severity scale (1-10): 7 Quality: sharp Consistency: constant Improves with: nothing Worsens with: nothing Associated Symptoms: chest pain, shortness of breath, myalgias <Mateo Stewart - Last Filed: 09/14/23 22:41> - General Chief complaint: Extremity Problem,Nontraumatic Stated complaint: left arm pain chest pain SOB Time Seen by Provider: 09/05/23 19:51 - History of Present Illness Initial comments: 57-year-old female presenting to the ED with a chief complaint of paresthesias. Patient states has had some ongoing paresthesias of her left arm and bilateral lower extremities. Denies any chest pain. (Gbaino Nichole) This is a 57-year-old female to the ER for evaluation of paresthesias lightheadedness dizziness weakness shaking chest pain shortness of breath. Patient has worsening shortness of breath and chest pain is improved. Patient has persistent shaking and nausea vomiting which is intractable. Patient with alcohol use history of alcohol abuse history of COPD and smoking (Mateo Stewart) - Related Data Home Medications Medication Instructions Recorded Confirmed levETIRAcetam [Keppra] 500 mg PO BID 10/23/20 09/06/23 cloNIDine HCL 0.1 mg PO BID 09/03/21 09/06/23 Fluorometholone 0.1% Ophth Sharmin 1 drops BOTH EYES BID 08/02/23 09/06/23 [Fml] Loteprednol Etabonate [Alrex] 1 drop BOTH EYES BID 08/02/23 09/06/23 Ketorolac [Toradol] 10 mg PO Q6H PRN 08/23/23 09/06/23 Losartan-Hctz 50-12.5 mg [Hyzaar 1 tab PO DAILY 08/23/23 09/06/23 50-12.5] Atorvastatin [Lipitor] 20 mg PO HS 09/06/23 09/06/23 Mirtazapine [Remeron] 15 mg PO HS 09/06/23 09/06/23 Previous Rx's Medication Instructions Recorded Aspirin 81 mg PO DAILY #30 tab 08/24/23 Nitroglycerin Sl Tabs [Nitrostat] 0.4 mg SUBLINGUAL Q5M PRN #15 tab 08/24/23 Thiamine [Vitamin B-1] 100 mg PO DAILY #30 tab 08/24/23 Acetaminophen Tab [Tylenol] 650 mg PO Q6HR PRN tab 09/07/23 Albuterol Inhaler [Ventolin Hfa 2 puff INHALATION Q6H PRN #1 each 09/07/23 Inhaler] Budesonide-Formot 160-4.5 Mcg 2 puff INHALATION BID #10.2 gm 09/07/23 [Symbicort 160-4.5 Mcg Inhaler] Potassium Chloride 20 meq PO DAILY #60 cap 09/07/23 chlordiazePOXIDE HCl [Librium] 20 mg PO TID #6 cap 09/07/23 predniSONE 10 mg PO DIRECTED #30 tab 09/07/23 Allergies Allergy/AdvReac Type Severity Reaction Status Date / Time Penicillins Allergy Rash/Hives/Swelling Verified 09/06/23 07:10 all over body NSAIDS (Non-Steroidal AdvReac Unknown upset Verified 09/06/23 07:10 Anti-Inflamma stomach sertraline HCl [From Zoloft] AdvReac Suicidal/Ag Verified 09/06/23 07:10 ression Review of Systems ROS Other: All systems not noted in ROS Statement are negative. <Gabino Nichole - Last Filed: 09/05/23 19:52> ROS Other: All systems not noted in ROS Statement are negative. <Mateo Stewart - Last Filed: 09/14/23 22:41> ROS Statement: Those systems with pertinent positive or pertinent negative responses have been documented in the HPI. Past Medical History Past Medical History: COPD, Liver Disease, Myocardial Infarction ([place]), Seizure Disorder, Vascular Disorder Additional Past Medical History / Comment(s): constpation, last bowel movement 4 days ago, feeling bloated,feeling of fullness, and abdominal pain, feels hungry then over eats then vomits to feel better, LAST SEIZURE - JANUARY 2021, "broken heart syndrome"., elevated liver enzymes, "dislocated disks", hx cervical cancer Last Myocardial Infarction Date:: 2019 History of Any Multi-Drug Resistant Organisms: None Reported Past Surgical History: Section, Heart Catheterization, Tubal Ligation Additional Past Surgical History / Comment(s): ORIF rt ankle/hardware later removed, exploratory lap, PAIN CLINIC PROCEDURE, BILAT CATARACTS REMOVED WITH LENS IMPLANTS, procedure to open a vein in left leg-couldn't confirm which leg, partial amputation rt hand middle finger, "procedure to remove cervical cancer" Past Anesthesia/Blood Transfusion Reactions: No Reported Reaction Past Psychological History: Anxiety, Bipolar, Depression, PTSD Smoking Status: Current every day smoker Past Alcohol Use History: Abuse, Daily, Heavy Past Drug Use History: Marijuana - Past Family History Father Family Medical History: Cancer, Prostate Disorder, Pulmonary Embolus Sister(s) Family Medical History: Cancer Brother(s) Family Medical History: Cancer Additional Family Medical History / Comment(s): colon and bladder <Gabino Nichole - Last Filed: 09/05/23 19:52> General Exam Limitations: no limitations <Gabino Nichole - Last Filed: 09/05/23 19:52> Limitations: no limitations General appearance: alert, in no apparent distress, anxious, in distress Head exam: Present: atraumatic, normocephalic, normal inspection Eye exam: Present: normal appearance, PERRL, EOMI. Absent: scleral icterus, conjunctival injection, periorbital swelling ENT exam: Present: normal exam, mucous membranes moist Neck exam: Present: normal inspection. Absent: tenderness, meningismus, lymphadenopathy Respiratory exam: Present: normal lung sounds bilaterally. Absent: respiratory distress, wheezes, rales, rhonchi, stridor Cardiovascular Exam: Present: regular rate, normal rhythm, normal heart sounds. Absent: systolic murmur, diastolic murmur, rubs, gallop, clicks GI/Abdominal exam: Present: soft, normal bowel sounds. Absent: distended, tenderness, guarding, rebound, rigid Extremities exam: Present: normal inspection, full ROM, normal capillary refill. Absent: tenderness, pedal edema, joint swelling, calf tenderness Back exam: Present: normal inspection Neurological exam: Present: alert, oriented X3, CN II-XII intact Psychiatric exam: Present: normal affect, normal mood Skin exam: Present: warm, dry, intact, normal color. Absent: rash <Mateo Stewart - Last Filed: 09/14/23 22:41> - General Exam Comments Initial Comments: Visual Physical Exam Vital signs reviewed General: Well-appearing, nontoxic, no acute distress. Head: Normocephalic, atraumatic Eyes: PERRLA, EOMI ENT: Airway patent Chest: Nonlabored breathing Skin: No visual rash, normal skin tone Neuro: Alert and oriented 3 Musculoskeletal: No gross abnormalities (Gabino Nichole) Course <Mateo Stewart - Last Filed: 09/14/23 22:41> Vital Signs 09/05/23 09/05/23 09/05/23 19:20 22:40 23:22 Temperature 98.2 F Pulse Rate 85 93 75 Pulse Rate [ Pulse Oximetery ] Respiratory 16 14 24 Rate Blood Pressure 146/97 132/108 132/108 Blood Pressure [Left Arm] O2 Sat by Pulse 98 95 97 Oximetry 09/06/23 09/06/23 09/06/23 00:11 00:24 00:46 Temperature Pulse Rate 97 76 94 Pulse Rate [ Pulse Oximetery ] Respiratory 20 Rate Blood Pressure 175/89 Blood Pressure [Left Arm] O2 Sat by Pulse 98 Oximetry 09/06/23 09/06/23 09/06/23 01:15 03:45 06:13 Temperature 97.9 F 98.4 F Pulse Rate 85 106 H 100 Pulse Rate [ Pulse Oximetery ] Respiratory 19 22 20 Rate Blood Pressure 119/67 141/88 156/103 Blood Pressure [Left Arm] O2 Sat by Pulse 96 96 96 Oximetry 09/06/23 09/06/23 09/06/23 07:00 08:00 09:13 Temperature 97.8 F 98.5 F Pulse Rate 97 105 H Pulse Rate [ 101 H Pulse Oximetery ] Respiratory 18 18 18 Rate Blood Pressure 186/112 165/96 Blood Pressure 127/81 [Left Arm] O2 Sat by Pulse 96 97 96 Oximetry - Reevaluation(s) Reevaluation #1: 09/06/23 00:38 Medical records reviewed (Mateo Stewart) Reevaluation #2: 09/06/23 00:38 Patient has persistent vomiting here in the ER Patient symptoms are tough to control (Mateo Stewart) Reevaluation #3: 09/06/23 00:38 Patient informed of results and questions answered (Mateo Stewart) Reevaluation #4: Was pt. sent in by a medical professional or institution (BENI Dill, BLOW MOLDING MACHINE OPERATOR, urgent care, hospital, or jail...) When possible be specific @ -no Did you speak to anyone other than the patient for history (EMS, parent, family, police, friend...)? What history was obtained from this source @ -no Did you review nursing and triage notes (agree or disagree)? Why? @ -agree Are old charts reviewed (outside hosp., previous admission, EMS record, old EKG, old radiological studies, urgent care reports/EKG's, jail records)? Rep ort findings @ -yes Differential Diagnosis (chest pain, altered mental status, abdominal pain women, abdominal pain men, vaginal bleeding, weakness, fever, dyspnea, syncope, headache, dizziness, GI bleed, back pain, seizure, CVA, palpatations, mental health, musculoskeletal)? @ -prior EKG interpreted by me (3pts min.). @ -yes X-rays interpreted by me (1pt min.). @ -yes negative for acute disease CT interpreted by me (1pt min.). @ -no U/S interpreted by me (1pt. min.). @ -no What testing was considered but not performed or refused? (CT, X-rays, U/S, labs)? Why? @ -none What meds were considered but not given or refused? Why? @ -none Did you discuss the management of the patient with other professionals (professionals i.e. BENI Dill, BLOW MOLDING MACHINE OPERATOR, lab, RT, psych nurse, mental health social worker, senior financial consultant, t eacher, ammunition officer, housing case manager)? Give summary @ -no Was smoking cessation discussed for >3mins.? @ -no Was critical care preformed (if so, how long)? @ -no Were there social determinants of health that impacted care today? How? (Homelessness, low income, unemployed, alcoholism, drug addiction, transportation, low edu. Level, literacy, decrease access to med. care, custodial, rehab)? @ -none Was there de-escalation of care discussed even if they declined (Discuss DNR or withdrawal of care, Hospice)? DNR status @ -no What co-morbidities impacted this encounter? (DM, HTN, Smoking, COPD, CAD, Cancer, CVA, ARF, Chemo, Hep., AIDS, mental health diagnosis, sleep apnea, morbid obesity)? @ -none Was patient admitted / discharged? Hospital course, mention meds given and route, prescriptions, significant lab abnormalities, going to OR and other pertinent info. @ - 57 female here for evaluation of shortness of breath persistent nausea vomiting diarrhea weakness and tremors. Patient will be admitted for supportive care Admitted Undiagnosed new problem with uncertain prognosis? @ -no Drug Therapy requiring intensive monitoring for toxicity (Heparin, Nitro, Insulin, Cardizem)? @ -no Were any procedures done? @ -no Diagnosis/symptom? @ -Shortness of breath, weakness, nausea vomiting diarrhea Acute, or Chronic, or Acute on Chronic? @ -Acute Uncomplicated (without systemic symptoms) or Complicated (systemic symptoms)? @ -Complicated Side effects of treatment? @ -no Exacerbation, Progression, or Severe Exacerbation? @ -exacerbation Poses a threat to life or bodily function? How? (Chest pain, [place], [place], pneumonia, PE, COPD, DKA, ARF, appy, cholecystitis, CVA, Diverticulitis, Homicidal, Suicidal, threat to staff... and all critical care pts) @ -yes weakness (Mateo Stewart) Reevaluation #5: Differential Dyspnea: Coronary syndrome, arrhythmia, tamponade, asthma, COPD, pulmonary embolism, pneumonia, pneumothorax, pulmonary effusion, anaphylaxis, diabetic ketoacidosis, flailed chest, pulmonary contusion, diaphragmatic rupture, anemia, neuromuscular, this is not meant to be an all-inclusive list. Differential Chest Pain: Stable Angina, Unstable Angina, STEMI, NSTEMI Aortic Dissection, Pneumothorax, Musculoskeletal, Esophageal Spasm GERD, Cholecystitis, Pancreatitis, Zoster, this is not meant to be an all-inclusive list. (Mateo Stewart) Medical Decision Making <Gabino Nichole - Last Filed: 09/05/23 19:52> - Lab Data Result diagrams: 09/07/23 07:42 09/07/23 07:42 - EKG Data -: EKG Interpreted by Me (EKG is sinus 78 LA 174 QRS 86 QTc 429) - Radiology Data Radiology results: report reviewed (Chest x-ray is negative for acute disease), image reviewed <Mateo Stewart - Last Filed: 09/14/23 22:41> - Medical Decision Making Quicknote portion performed. Signed Gabino Nichole PA-C (Gabino Nichole) 57 female here for evaluation of shortness of breath persistent nausea vomiting diarrhea weakness and tremors. Patient will be admitted for supportive care (Mateo Stewart) - Lab Data Lab Results 09/05/23 09/05/23 09/05/23 Range/Units 21:11 21:11 21:11 WBC 5.2 (3.8-10.6) k/uL RBC 4.23 (3.80-5.40) m/uL Hgb 14.7 (11.4-16.0) gm/dL Hct 43.3 (34.0-46.0) % MCV 102.3 H (80.0-100.0) fL MCH 34.8 (25.0-35.0) pg MCHC 34.0 (31.0-37.0) g/dL RDW 13.2 (11.5-15.5) % Plt Count 200 (150-450) k/uL MPV 7.0 Neutrophils % 57 % Lymphocytes % 31 % Monocytes % 9 % Eosinophils % 1 % Basophils % 1 % Neutrophils # 3.0 (1.3-7.7) k/uL Lymphocytes # 1.6 (1.0-4.8) k/uL Monocytes # 0.5 (0-1.0) k/uL Eosinophils # 0.0 (0-0.7) k/uL Basophils # 0.1 (0-0.2) k/uL Macrocytosis Slight PT 9.8 L (10.0-12.5) sec INR 0.9 (<1.2) APTT 24.9 (22.0-30.0) sec Sodium 139 (137-145) mmol/L Potassium 4.1 (3.5-5.1) mmol/L Chloride 107 (98-107) mmol/L Carbon Dioxide 20 L (22-30) mmol/L Anion Gap 12 mmol/L BUN 7 (7-17) mg/dL Creatinine 0.34 L (0.52-1.04) mg/dL Est GFR (CKD-EPI)AfAm >90 (>60 ml/min/1.73 sqM) Est GFR (CKD-EPI)NonAf >90 (>60 ml/min/1.73 sqM) Glucose 97 (74-99) mg/dL Calcium 8.8 (8.4-10.2) mg/dL Magnesium 1.8 (1.6-2.3) mg/dL Total Bilirubin 0.5 (0.2-1.3) mg/dL AST 84 H (14-36) U/L ALT 19 (4-34) U/L Alkaline Phosphatase 109 (38-126) U/L Troponin I (0.000-0.034) ng/mL Total Protein 7.4 (6.3-8.2) g/dL Albumin 4.4 (3.5-5.0) g/dL Lipase (23-300) U/L Urine Color Urine Appearance (Clear) Urine pH (5.0-8.0) Ur Specific [place] (1.001-1.035) Urine Protein (Negative) Urine Glucose (UA) (Negative) Urine Ketones (Negative) Urine Blood (Negative) Urine Nitrite (Negative) Urine Bilirubin (Negative) Urine Urobilinogen (<2.0) mg/dL Ur Leukocyte Esterase (Negative) 09/05/23 09/05/23 09/05/23 Range/Units 21:11 22:10 22:28 WBC (3.8-10.6) k/uL RBC (3.80-5.40) m/uL Hgb (11.4-16.0) gm/dL Hct (34.0-46.0) % MCV (80.0-100.0) fL MCH (25.0-35.0) pg MCHC (31.0-37.0) g/dL RDW (11.5-15.5) % Plt Count (150-450) k/uL MPV Neutrophils % % Lymphocytes % % Monocytes % % Eosinophils % % Basophils % % Neutrophils # (1.3-7.7) k/uL Lymphocytes # (1.0-4.8) k/uL Monocytes # (0-1.0) k/uL Eosinophils # (0-0.7) k/uL Basophils # (0-0.2) k/uL Macrocytosis PT (10.0-12.5) sec INR (<1.2) APTT (22.0-30.0) sec Sodium (137-145) mmol/L Potassium (3.5-5.1) mmol/L Chloride (98-107) mmol/L Carbon Dioxide (22-30) mmol/L Anion Gap mmol/L BUN (7-17) mg/dL Creatinine (0.52-1.04) mg/dL Est GFR (CKD-EPI)AfAm (>60 ml/min/1.73 sqM) Est GFR (CKD-EPI)NonAf (>60 ml/min/1.73 sqM) Glucose (74-99) mg/dL Calcium (8.4-10.2) mg/dL Magnesium (1.6-2.3) mg/dL Total Bilirubin (0.2-1.3) mg/dL AST (14-36) U/L ALT (4-34) U/L Alkaline Phosphatase (38-126) U/L Troponin I <0.012 (0.000-0.034) ng/mL Total Protein (6.3-8.2) g/dL Albumin (3.5-5.0) g/dL Lipase 170 (23-300) U/L Urine Color Light Yellow Urine Appearance Clear (Clear) Urine pH 5.5 (5.0-8.0) Ur Specific [place] 1.013 (1.001-1.035) Urine Protein Negative (Negative) Urine Glucose (UA) Negative (Negative) Urine Ketones Negative (Negative) Urine Blood Negative (Negative) Urine Nitrite Negative (Negative) Urine Bilirubin Negative (Negative) Urine Urobilinogen <2.0 (<2.0) mg/dL Ur Leukocyte Esterase Negative (Negative) Disposition <Gabino Nichole - Last Filed: 09/05/23 19:52> Is patient prescribed a controlled substance at d/c from ED?: No Time of Disposition: 00:05 <Mateo Stewart - Last Filed: 09/14/23 22:41> Clinical Impression: Chest pain, Shortness of breath, Cough, Alcohol withdrawal, Weakness, Atypical chest pain Disposition: ADMITTED IP TO THIS HOSP Condition: Fair
[2023-09-05 21:36] LABS: ALT 19 U/L (4-34); AST 84 U/L (14-36); African American GFR (CKD) >90 (>60 ml/min/1.73 sqM); Albumin 4.4 g/dL (3.5-5.0); Alkaline Phosphatase 109 U/L (38-126); Anion Gap 12 mmol/L; Blood Urea Nitrogen 7 mg/dL (7-17); Calcium 8.8 mg/dL (8.4-10.2); Carbon Dioxide 20 mmol/L (22-30); Chloride 107 mmol/L (98-107); Glucose 97 mg/dL (74-99); Magnesium 1.8 mg/dL (1.6-2.3); Non-African American GFR(CKD) >90 (>60 ml/min/1.73 sqM); Potassium 4.1 mmol/L (3.5-5.1); Sodium 139 mmol/L (137-145); Total Bilirubin 0.5 mg/dL (0.2-1.3); Total Protein 7.4 g/dL (6.3-8.2)
[2023-09-05 21:43] LABS: INR 0.9 (<1.2); Partial Thromboplastin Time 24.9 sec (22.0-30.0); Prothrombin Time 9.8 sec (10.0-12.5)
[2023-09-05 21:47] LABS: Basophils # (A) 0.1 k/uL (0-0.2); Basophils % (A) 1 %; Eosinophils % (A) 1 %; HCT 43.3 % (34.0-46.0); HGB 14.7 gm/dL (11.4-16.0); Lymphocytes # (A) 1.6 k/uL (1.0-4.8); Lymphocytes % (A) 31 %; MCH 34.8 pg (25.0-35.0); MCV 102.3 fL (80.0-100.0); Macrocytosis Slight; Monocytes # (A) 0.5 k/uL (0-1.0); Monocytes % (A) 9 %; Neutrophils % (A) 57 %; Platelet Count 200 k/uL (150-450); RBC 4.23 m/uL (3.80-5.40); RDW 13.2 % (11.5-15.5); WBC 5.2 k/uL (3.8-10.6)
[2023-09-05 22:30] LABS: Appearance,Urine Clear (Clear); Bilirubin,Urine Negative (Negative); Blood,Urine Negative (Negative); Color,Urine Light Yellow; Glucose,Urine (UA) Negative (Negative); Ketones,Urine Negative (Negative); Leukocyte Esterase,Urine Negative (Negative); Nitrite,Urine Negative (Negative); PH, Urine 5.5 (5.0-8.0); Protein,Urine Negative (Negative); Specific Gravity,Urine 1.013 (1.001-1.035); Urobilinogen,Urine <2.0 mg/dL (<2.0)
--- NOTE | 2023-09-05 23:38 | XR ---
EXAMINATION TYPE: XR chest 2V DATE OF EXAM: 09/05/2023 8:03 PM CLINICAL INDICATION:Female, 57 years old with history of Chest Pain; [facility] COMPARISON: 08/22/2023 TECHNIQUE: XR chest 2V. Frontal and lateral views of the chest.. FINDINGS: Lines/Tubes/Devices: No indwelling lines are seen. EKG electrodes over the bilateral chest superiorly. Heart/mediastinum: Heart size is normal. Mediastinum appears normal. Pulmonary vascularity: Not increased, Lungs/Pleura: Lungs appear stable. There is no evidence of pleural effusion, focal consolidation, or pneumothorax. Musculoskeletal: No acute osseous abnormality demonstrated in the limits of the exam. Other findings: None. IMPRESSION: No acute cardiopulmonary abnormality.
[2023-09-05] MEDS: methylPREDNISolone SOD SUCCI 125 MG/2 ML VIAL IV STA (23:57)
[2023-09-05] MEDS: PROCHLORPERAZINE INJ 10 MG/2 ML VIAL IVP STA (23:57)
[2023-09-05] MEDS: SODIUM CHLORIDE 0.9% 1,000 ML IV STA ×2 (23:58→23:59)
[2023-09-05] MEDS: LORazepam 2 MG/ML INJ IV STA (23:58)
[2023-09-05] MEDS: HYDROmorphone 1 MG/ML 1 ML SYRINGE IVP STA (23:58)
[2023-09-05] MEDS: SODIUM CHLORIDE 0.9% 500 ML 500 ML IV STA (23:59)
[2023-09-06] MEDS: IPRATROPIUM-ALBUTEROL 3 ML NEB INHALATION STA (00:23)
[2023-09-06] MEDS ORDERED: NALOXONE 0.4 MG/ML 1 ML VIAL IV PRN (00:35)
[2023-09-06] MEDS ORDERED: ONDANSETRON 4 MG/2 ML VIAL IVP PRN (00:35)
[2023-09-06] MEDS ORDERED: LORazepam 2 MG/ML INJ IV PRN ×2 (00:39)
[2023-09-06] MEDS ORDERED: LORazepam 1 MG TAB PO PRN ×3 (00:39)
[2023-09-06] MEDS ORDERED: LORazepam 0.5 MG TAB PO PRN (00:39)
[2023-09-06] MEDS: THIAMINE 100 MG/ML 2 ML VIAL IM STA (00:51)
[2023-09-06] MEDS: HYDROmorphone 1 MG/ML 1 ML SYRINGE IVP PRN (03:49)
[2023-09-06] MEDS: LORazepam 2 MG/ML INJ IV PRN (03:50)
[2023-09-06] MEDS: methylPREDNISolone SOD SUCCI 125 MG/2 ML VIAL IV SCH (06:16)
[2023-09-06] MEDS: cloNIDine HCL 0.1 MG TAB PO SCH (08:26)
[2023-09-06] MEDS ORDERED: NITROGLYCERIN SL TABS 0.4 MG TAB SUBLINGUAL PRN (08:26)
[2023-09-06] MEDS: LOSARTAN-HCTZ 50-12.5 MG 1 EACH TAB PO SCH (08:36)
[2023-09-06] MEDS: LORazepam 1 MG TAB PO PRN (08:36)
[2023-09-06] MEDS: levETIRAcetam 500 MG TAB PO SCH (09:16)
[2023-09-06] MEDS: HEPARIN SODIUM,PORCINE 5,000 UNIT/ML 1 ML VIAL SQ SCH (09:16)
[2023-09-06] MEDS: FAMOTIDINE 20 MG/2 ML VIAL IV SCH (09:16)
[2023-09-06] MEDS: ASPIRIN 81 MG PO SCH (09:16)
[2023-09-06] MEDS ORDERED: IPRATROPIUM-ALBUTEROL 3 ML NEB INHALATION PRN (09:58)
[2023-09-06] MEDS: FLUOROMETHOLONE 0.1% OPHTH DROPS 5 ML BTL BOTH EYES SCH (10:04)
[2023-09-06] MEDS: prednisoLONE ACETATE 1% OPHTH DROPS 5 ML BTL BOTH EYES SCH (10:05)
[2023-09-06] MEDS ORDERED: ETODOLAC 400 MG TAB PO PRN (11:07)
[2023-09-06] MEDS: IPRATROPIUM-ALBUTEROL 3 ML NEB INHALATION SCH (12:00)
--- NOTE | 2023-09-06 12:12 | P.CRDCN ---
History of Present Illness History of present illness: HISTORY OF PRESENT ILLNESS: This is a 57-year-old female with a past medical history significant for Takotsubo cardiomyopathy with normal coronary arteries per cardiac catheterization in 2017, nicotine dependence, alcohol abuse, hypertension, and anxiety. Patient follows in the office with Dr. Olivas. We have been asked to see the patient in consultation for chest pain. Patient examined at the bedside. Patient presented to the hospital with a chief complaint of left arm pain. Haim gold was also having nausea and vomiting. The patient does report having some right-sided chest pain as well. The patient states her discomfort is worse with deep inspiration. She also reports increased movement of her pain with her left arm. She also has pain with palpation of her left chest wall and arm. She is a current cigarette smoker and smokes 1 pack/day. She also reports daily alcohol use and drinks at least 4 beers daily. DIAGNOSTICS: - EKG reveals sinus mechanism with no signs of acute ischemia. - Chest xray negative for acute process. - Laboratory data: WBC 5.2. Hemoglobin 14.7. Platelet count 200. Sodium 139. Potassium 4.1. BUN 7. Creatinine 0.37. Troponin negative x 1. - Current home cardiac medications include Lipitor 20 mg at night, clonidine 0.1 mg twice a day, losartanhydrochlorothiazide 50-12.5 mg daily, and aspirin 81 mg daily. - Most recent echocardiogram obtained on 08/23/2023 revealed ejection fraction 55 to 60%, trace MR - Patient underwent dobutamine stress test in May 2023 which was negative for ischemia REVIEW OF SYSTEMS: At the time of my exam: CONSTITUTIONAL: Denies fever or chills. HEENT: Denies blurred vision, vision changes, or eye pain. Denies hemoptysis CARDIOVASCULAR: Denies chest pain. Denies orthopnea. Denies PND. Denies palpitations RESPIRATORY: Denies shortness of breath. GASTROINTESTINAL: Denies abdominal pain. Denies nausea or vomiting. HEMATOLOGIC: Denies bleeding disorders. GENITOURINARY: Denies any blood in urine. SKIN: Denies pruitis. Denies rash. PHYSICAL EXAM: VITAL SIGNS: Reviewed. GENERAL: Well-developed in no acute distress. HEENT: Head is normocephalic. Pupils are equal, round. Sclerae anicteric. Mucous membranes of the mouth are moist. Neck supple. No JVD or thyromegaly LUNGS: Respirations even and unlabored. Lungs with decreased air exchange in the right lower lobe HEART: Regular rate and rhythm. S1 and S2 heard. ABDOMEN: Soft. Nondistended. Nontender. EXTREMITIES: Normal range of motion. No clubbing or cyanosis. Peripheral pulses intact. No lower extremity edema NEUROLOGIC: Awake and alert. Oriented x 3. ASSESSMENT: Left arm pain/chest pain, noncardiac Nausea and vomiting History of Takotsubo cardiomyopathy Normal coronary arteries, per cardiac catheterization 2017 History of alcohol abuse Hypertension Hyperlipidemia Nicotine dependence Anxiety History of seizures PLAN: An acute coronary and has been ruled out. Patient's pain appears to be musculoskeletal in nature, noncardiac No need to repeat echocardiogram as this was performed on 08/23/2023 Continue current cardiac medications Smoking cessation recommended Abstinence from alcohol encouraged No further inpatient recommendations from a cardiac standpoint We will sign off. Please reconsult if needed. Nurse practitioner note has been reviewed by physician. Signing provider agrees with the documented findings, assessment, and plan of care documented by OUT OF [employer]OWN COLLECTION CLERK as a scribe. Past Medical History Past Medical History: COPD, Liver Disease, Myocardial Infarction ([place]), Seizure Disorder, Vascular Disorder Additional Past Medical History / Comment(s): constpation, last bowel movement 4 days ago, feeling bloated,feeling of fullness, and abdominal pain, feels hungry then over eats then vomits to feel better, LAST SEIZURE - JANUARY 2021, "broken heart syndrome"., elevated liver enzymes, "dislocated disks", hx cervical cancer Last Myocardial Infarction Date:: 2019 History of Any Multi-Drug Resistant Organisms: None Reported Past Surgical History: Section, Heart Catheterization, Tubal Ligation Additional Past Surgical History / Comment(s): ORIF rt ankle/hardware later removed, exploratory lap, PAIN CLINIC PROCEDURE, BILAT CATARACTS REMOVED WITH LENS IMPLANTS, procedure to open a vein in left leg-couldn't confirm which leg, partial amputation rt hand middle finger, "procedure to remove cervical cancer" Past Anesthesia/Blood Transfusion Reactions: No Reported Reaction Past Psychological History: Anxiety, Bipolar, Depression, PTSD Smoking Status: Current every day smoker Past Alcohol Use History: Abuse, Daily, Heavy Additional Past Alcohol Use History / Comment(s): SMOKES 1 1/2 PPD SINCE AGE 16. pt. states she drinks four beers daily Past Drug Use History: Marijuana Additional Drug Use History / Comment(s): pt reports marijuana use occasional- once a month; - Past Family History Father Family Medical History: Cancer, Prostate Disorder, Pulmonary Embolus Sister(s) Family Medical History: Cancer Brother(s) Family Medical History: Cancer Additional Family Medical History / Comment(s): colon and bladder Medications and Allergies Home Medications Medication Instructions Recorded Confirmed Type levETIRAcetam [Keppra] 500 mg PO BID 10/23/20 09/06/23 History cloNIDine HCL 0.1 mg PO BID 09/03/21 09/06/23 History Fluorometholone 0.1% Ophth Sharmin 1 drops BOTH EYES BID 08/02/23 09/06/23 History [Fml] Loteprednol Etabonate [Alrex] 1 drop BOTH EYES BID 08/02/23 09/06/23 History Ketorolac [Toradol] 10 mg PO Q6H PRN 08/23/23 09/06/23 History Losartan-Hctz 50-12.5 mg [Hyzaar 1 tab PO DAILY 08/23/23 09/06/23 History 50-12.5] Aspirin 81 mg PO DAILY #30 tab 08/24/23 09/06/23 Rx Nitroglycerin Sl Tabs [Nitrostat] 0.4 mg SUBLINGUAL Q5M PRN #15 tab 08/24/23 09/06/23 Rx Thiamine [Vitamin B-1] 100 mg PO DAILY #30 tab 08/24/23 09/06/23 Rx Atorvastatin [Lipitor] 20 mg PO HS 09/06/23 09/06/23 History Mirtazapine [Remeron] 15 mg PO HS 09/06/23 09/06/23 History Allergies Allergy/AdvReac Type Severity Reaction Status Date / Time Penicillins Allergy Rash/Hives/Swelling Verified 09/06/23 07:10 all over body NSAIDS (Non-Steroidal AdvReac Unknown upset Verified 09/06/23 07:10 Anti-Inflamma stomach sertraline HCl [From Zoloft] AdvReac Suicidal/Ag Verified 09/06/23 07:10 ression Physical Exam Vitals: Vital Signs Temp Pulse Pulse Resp BP BP Pulse Ox 09/06/23 09:13 105 H 18 165/96 96 09/06/23 08:00 98.5 F 97 18 186/112 97 09/06/23 07:00 97.8 F 101 H 18 127/81 96 09/06/23 06:13 98.4 F 100 20 156/103 96 09/06/23 03:45 97.9 F 106 H 22 141/88 96 09/06/23 01:15 85 19 119/67 96 09/06/23 00:46 94 09/06/23 00:24 76 09/06/23 00:11 97 20 175/89 98 09/05/23 23:22 75 24 132/108 97 09/05/23 22:40 93 14 132/108 95 09/05/23 19:20 98.2 F 85 16 146/97 98 Intake and Output 09/05/23 09/06/23 09/06/23 22:59 06:59 14:59 Other: Weight 43.545 kg 43.545 kg Results 09/05/23 21:11 09/05/23 21:11 Cardiac Enzymes 09/05/23 09/05/23 Range/Units 21:11 21:11 AST 84 H (14-36) U/L Troponin I <0.012 (0.000-0.034) ng/mL Coagulation 09/05/23 Range/Units 21:11 PT 9.8 L (10.0-12.5) sec APTT 24.9 (22.0-30.0) sec CBC 09/05/23 Range/Units 21:11 WBC 5.2 (3.8-10.6) k/uL RBC 4.23 (3.80-5.40) m/uL Hgb 14.7 (11.4-16.0) gm/dL Hct 43.3 (34.0-46.0) % Plt Count 200 (150-450) k/uL Comprehensive Metabolic Panel 09/05/23 Range/Units 21:11 Sodium 139 (137-145) mmol/L Potassium 4.1 (3.5-5.1) mmol/L Chloride 107 (98-107) mmol/L Carbon Dioxide 20 L (22-30) mmol/L BUN 7 (7-17) mg/dL Creatinine 0.34 L (0.52-1.04) mg/dL Glucose 97 (74-99) mg/dL Calcium 8.8 (8.4-10.2) mg/dL AST 84 H (14-36) U/L ALT 19 (4-34) U/L Alkaline Phosphatase 109 (38-126) U/L Total Protein 7.4 (6.3-8.2) g/dL Albumin 4.4 (3.5-5.0) g/dL Current Medications Generic Name Dose Route Start Last Admin Trade Name Freq PRN Reason Stop Dose Admin Acetaminophen 650 mg 09/06/23 00:35 Acetaminophen Tab 325 Mg Tab PO Q6HR PRN Mild Pain or Fever > 100.5 Hydrocodone Bitart/Acetaminophen 1 each 09/06/23 11:07 Hydrocodone/Apap 5-325mg 1 Each Tab PO Q6HR PRN Pain Albuterol/Ipratropium 3 ml 09/06/23 09:59 Ipratropium-Albuterol 3 Ml Neb INHALATION RT-TID EDGARDO Albuterol/Ipratropium 3 ml 09/06/23 09:58 Ipratropium-Albuterol 3 Ml Neb INHALATION RT-TID PRN Shortness Of Breath Or Wheezing Aspirin 81 mg 09/06/23 09:00 09/06/23 09:16 Aspirin 81 Mg PO 81 mg DAILY EDGARDO Administration Atorvastatin Calcium 20 mg 09/06/23 21:00 Atorvastatin 20 Mg Tab PO HS EDGARDO Clonidine 0.1 mg 09/06/23 09:00 09/06/23 08:26 Clonidine Hcl 0.1 Mg Tab PO 09/13/23 09:01 0.1 mg BID EDGARDO Administration Etodolac 400 mg 09/06/23 11:07 Etodolac 400 Mg Tab PO TID PRN Pain Famotidine 20 mg 09/06/23 21:00 Famotidine 20 Mg Tab PO BID EDGARDO Fluorometholone 1 drops 09/06/23 09:00 09/06/23 10:04 Fluorometholone 0.1% Ophth Drops 5 Ml Btl BOTH EYES Not Given BID EDGARDO HCTZ/Losartan Potassium 1 each 09/06/23 09:00 09/06/23 08:36 Losartan-Hctz 50-12.5 Mg 1 Each Tab PO 1 each DAILY EDGARDO Administration Heparin Sodium (Porcine) 5,000 unit 09/06/23 09:00 09/06/23 09:16 Heparin Sodium,Porcine 5,000 Unit/Ml 1 Ml Vial SQ 5,000 unit Q12HR EDGARDO Administration Hydromorphone HCl 1 mg 09/05/23 23:39 09/06/23 10:00 Hydromorphone 1 Mg/Ml 1 Ml Syringe IVP 1 mg Q4HR PRN Administration Pain Sodium Chloride 1,000 mls @ 75 mls/hr 09/05/23 23:39 09/05/23 23:59 Saline 0.9% IV 09/06/23 12:58 75 mls/hr .[id number] STA Administration Levetiracetam 500 mg 09/06/23 09:00 09/06/23 09:16 Levetiracetam 500 Mg Tab PO 500 mg BID EDGARDO Administration Lorazepam 2 mg 09/06/23 00:39 Lorazepam 1 Mg Tab PO Q3HR PRN Ciwa 8 To 9 Lorazepam 2 mg 09/06/23 00:39 Lorazepam 1 Mg Tab PO Q2HR PRN Ciwa 10 or greater Lorazepam 1 mg 09/06/23 00:39 09/06/23 08:36 Lorazepam 1 Mg Tab PO 1 mg Q4HR PRN Administration Ciwa 6 To 7 Lorazepam 0.5 mg 09/06/23 00:39 Lorazepam 0.5 Mg Tab PO Q4HR PRN Ciwa 4 To 5 Lorazepam 2 mg 09/06/23 00:39 Lorazepam 2 Mg/Ml Inj IV 09/08/23 00:40 Q10M PRN CIWA 16 or higher Lorazepam 1 mg 09/06/23 00:39 09/06/23 03:50 Lorazepam 2 Mg/Ml Inj IV 1 mg Q2HR PRN Administration CIWA 8 or 9 Lorazepam 1 mg 09/06/23 00:39 Lorazepam 2 Mg/Ml Inj IV Q1HR PRN CIWA 10 to 15 Lorazepam 1 mg 09/06/23 00:39 Lorazepam 1 Mg Tab PO Q1HR PRN Alcohol Withdrawal Methylprednisolone Sodium Succinate 60 mg 09/06/23 06:00 09/06/23 06:16 Methylprednisolone Sod Succi 125 Mg/2 Ml Vial IV 60 mg Q6HR EDGARDO Administration Mirtazapine 15 mg 09/06/23 21:00 Mirtazapine 15 Mg Tab PO HS EDGARDO Naloxone HCl 0.2 mg 09/06/23 00:35 Naloxone 0.4 Mg/Ml 1 Ml Vial IV Q2M PRN Opioid Reversal Nitroglycerin 0.4 mg 09/06/23 08:26 Nitroglycerin Sl Tabs 0.4 Mg Tab SUBLINGUAL Q5M PRN Chest Pain Ondansetron HCl 4 mg 09/06/23 00:35 Ondansetron 4 Mg/2 Ml Vial IVP Q8HR PRN Nausea And Vomiting Prednisolone Acetate 1 drops 09/06/23 09:00 09/06/23 10:05 Prednisolone Acetate 1% Ophth Drops 5 Ml Btl BOTH EYES Not Given BID EDGARDO Thiamine HCl 100 mg 09/07/23 09:00 Thiamine 100 Mg Tab PO DAILY EDGARDO Intake and Output 09/05/23 09/06/23 09/06/23 22:59 06:59 14:59 Other: Weight 43.545 kg 43.545 kg Patient Weight 09/07/23 06:59 Weight 43.545 kg 09/05/23 21:11 09/05/23 21:11
[2023-09-06] MEDS: HYDROcodone/APAP 5-325MG 1 EACH TAB PO PRN (12:32)
--- NOTE | 2023-09-06 12:33 | HP ---
HISTORY AND PHYSICAL CHIEF COMPLAINTS: Chest pain, shortness of breath, alcohol withdrawal. HISTORY OF PRESENT ILLNESS: This is a 57-year-old woman with a past medical history of multiple medical problems including alcoholism, chronic liver disease, was admitted to [facility] with complaints of chest pain, shortness of breath as well as alcohol withdrawal. The patient apparently WAS drinking and the patient has diffuse tremors and alcohol withdrawal syndrome also. There is no history of any fever, rigors, chills. The patient had _ disease before. PAST MEDICAL HISTORY: Reviewed includes seizure disorder, liver disease, chronic alcoholism, anxiety, bipolar, depression. Rest of the history and chart is also reviewed. HOME MEDICATIONS: Reviewed the rest of the medications reviewed. ALLERGIES: Penicillin, rest of the allergies reviewed. FAMILY HISTORY: History of cancer, prostate disorder, pulmonary embolism. SOCIAL HISTORY: History of alcohol abuse, smoking, THC. REVIEW OF SYSTEMS: Fourteen-point review is negative except as mentioned PHYSICAL EXAMINATION: VITAL SIGNS: Pulse 105, blood pressure 160/90, respirations 18. HEENT: Conjunctivae normal. NECK: No JVD. CARDIOVASCULAR: S1, S2. No murmur. RESPIRATIONS: Breath sounds diminished at the bases. Few scattered rhonchi and crackles. ABDOMEN: Soft, nontender. LEGS: No edema. No swelling. NERVOUS SYSTEM: No focal deficit. JOINTS: No active deforming arthropathy. LABORATORY DATA: Reviewed. Troponins are negative. ASSESSMENT: 1. Acute alcohol withdrawal and delirium tremens. 2. Chest pain, possible unstable angina. 3. Chronic obstructive pulmonary disease. 4. History of chronic liver disease. 5. History of chronic alcoholism. 6. History of anxiety, bipolar, depression, posttraumatic stress disorder. 7. Multiple complex medical issues. RECOMMENDATIONS AND DISCUSSION: Recommend to continue current management and CIWA protocol, bronchodilators. Cardiology consultation for evaluation of chest pain and possible workup. Otherwise prognosis guarded because of multiple complex medical issues and further recommendations to follow. The EKG shows some UAs pattern. MMODL / IJN: [id number] / MTDD
[2023-09-06 15:10] VITALS: RESP 16
[2023-09-06 17:58] VITALS: BMI 18.7
[2023-09-06] MEDS: FAMOTIDINE 20 MG TAB PO SCH (20:06)
[2023-09-06] MEDS: MIRTAZAPINE 15 MG TAB PO SCH (20:06)
[2023-09-06] MEDS: ATORVASTATIN 20 MG TAB PO SCH (20:06)
[2023-09-07] MEDS: THIAMINE 100 MG TAB PO SCH (08:13)
[2023-09-07 09:23] VITALS: BP 170/89; PULSE 59; TEMP 97.9
[2023-09-07] MEDS: ACETAMINOPHEN TAB 325 MG TAB PO PRN (11:45)
[2023-09-07 11:48] LABS: Magnesium 1.7 mg/dL (1.5-2.4); Phosphorus 2.4 mg/dL (2.4-5.1)
[2023-09-07 12:05] LABS: ALT 14 U/L (8-44); AST 32 U/L (13-35); Albumin 4.2 g/dL (3.8-4.9); Albumin/Globulin Ratio 1.91 Ratio (1.60-3.17); Alkaline Phosphatase 101 U/L (41-126); BUN/Creat Ratio 13.67 Ratio (12.00-20.00); Blood Urea Nitrogen 4.1 mg/dL (9.0-27.0); Calcium 9.5 mg/dL (8.7-10.3); Carbon Dioxide 29.1 mmol/L (21.6-31.8); Chloride 98 mmol/L (96-109); Globulin 2.2 g/dL (1.6-3.3); Glucose 130 mg/dL (70-110); Potassium 2.8 mmol/L (3.5-5.5); Sodium 141 mmol/L (135-145); Total Bilirubin 0.9 mg/dL (0.3-1.2); Total Protein 6.4 g/dL (6.2-8.2)
[2023-09-07 12:17] LABS: Basophils # (A) 0 X 10*3/uL (0.00-0.10); Basophils % (A) 0 %; Eosinophils # (A) 0 X 10*3/uL (0.04-0.35); Eosinophils % (A) 0 %; HCT 36.5 % (37.2-46.3); HGB 13.1 g/dL (12.0-15.0); Lymphocytes # (A) 0.36 X 10*3/uL (0.90-5.00); Lymphocytes % (A) 6.4 %; MCH 34.7 pg (27.0-32.0); MCHC 35.9 g/dL (32.0-37.0); MCV 96.8 FL (80.0-97.0); Mean Platelet Volume 9.7 FL (9.5-12.2); Monocytes # (A) 0.58 X 10*3/uL (0.20-1.00); Monocytes % (A) 10.3 %; NRBC Per 100 WBC 0 X 10*3/uL (0.00-0.01); Neutrophils # (A) 4.63 X 10*3/uL (1.80-7.70); Neutrophils % (A) 82.6 %; Platelet Count 166 X 10*3/uL (140-440); RBC 3.77 X 10*6/uL (4.10-5.20); RDW 13.1 % (11.5-14.5); WBC 5.61 X 10*3/uL (4.50-10.00)
--- NOTE | 2023-09-08 15:03 | P.DS ---
Providers Date of admission: 09/06/23 00:36 Expected date of discharge: 09/08/23 Attending physician: Mary Mejia Primary care physician: Henny Angel Hospital Course: Final diagnosis Acute alcohol withdrawal and delirium tremens Chest pain, possible unstable angina, ACS ruled out Chronic obstructive pulmonary disease, acute exacerbation History of chronic liver disease History of chronic alcoholism History of anxiety/bipolar depression/PTSD History of previous myocardial infarction History of seizure disorder Continued ongoing nicotine dependence Moderate protein calorie malnutrition with a BMI of 18.7 GI prophylaxis DVT prophylaxis Full code Discharge disposition Patient is being discharged in a stable condition with guarded prognosis to home. Patient will follow-up with Dr. Clay Mejia in the outpatient setting upon discharge. Patient is to continue with complete alcohol abstinence and close outpatient follow-up with cardiology as scheduled. Repeat labs to monitor kidney functions and electrolytes in 2 to 3 days. Total time taken is greater than 35 minutes. Hospital course This is a 57-year-old female who was recently admitted with reports of chest pain, shortness of breath and concerns of alcohol withdrawal. Patient was started on CIWA protocol and also breathing treatments and evaluated by cardiology. Patient underwent an extensive cardiology workup recently and has been cleared by cardiology for continued outpatient follow-up and medication as prescribed. Patient with electrolyte abnormalities including low magnesium and potassium which she reports is chronic and discussed with the patient about oral intake along with supplements and repeat labs in the next few days. Patient extensively counseled on alcohol use and recommend complete alcohol abstinence. Discussed with patient about inpatient rehab for continued alcohol use although patient reports has been there before and can quit on her own. Patient will be continued on a Librium taper on discharge and instructed to follow-up with primary care provider as well as cardiology. Please refer to cardiology notes for further HPI. Currently no reports of chest pain, shortness of breath, or palpitations. Patient is afebrile. No reports of nausea or vomiting and patient is tolerating diet. Patient will be discharged home today. Guarded prognosis given patient's significant comorbidities and continued noncompliance to alcohol and tobacco use. Physical exam: Gen: This is a 57-year-old female who is awake, alert and oriented x 3, thin built, elderly appearing, cachectic HEENT: Head is atraumatic, normocephalic. Pupils equal, round. Sclerae is anicteric. NECK: Supple. No JVD. No lymphadenopathy. No thyromegaly. LUNGS: Diminished breath sounds bilaterally with some scattered rhonchi. No intercostal retractions. HEART: S1, S2 are muffled ABDOMEN: Soft. Thin bowel sounds are present. No masses. No tenderness. EXTREMITIES: No pedal edema. No calf tenderness. NEUROLOGICAL: Patient is awake, alert and oriented x3. Cranial nerves 2 through 12 are grossly intact. Please refer to medication reconciliation sheet for a list of medications. The impression and plan of care has been dictated by Haleigh Vergara, Nurse Practitioner as directed. Dr. Roberto MD I have performed a history and examination and MDM of this patient, discussed the same with the dictator, and agree with the dictator's assessment and plan as written ,documented as a scribe. Based on total visit time, I have performed more than 50% of the visit. Patient Condition at Discharge: Fair Plan - Discharge Summary Discharge Rx Participant: Yes New Discharge Prescriptions: New predniSONE 10 mg PO DIRECTED #30 tab Potassium Chloride 20 meq PO DAILY #60 cap chlordiazePOXIDE HCl [Librium] 20 mg PO TID #6 cap Budesonide-Formot 160-4.5 Mcg [Symbicort 160-4.5 Mcg Inhaler] 2 puff INHALATION BID #10.2 gm Acetaminophen Tab [Tylenol] 650 mg PO Q6HR PRN tab PRN Reason: Mild Pain Or Fever > 100.5 Albuterol Inhaler [Ventolin Hfa Inhaler] 2 puff INHALATION Q6H PRN #1 each PRN Reason: Cough Continue levETIRAcetam [Keppra] 500 mg PO BID Loteprednol Etabonate [Alrex] 1 drop BOTH EYES BID Losartan-Hctz 50-12.5 mg [Hyzaar 50-12.5] 1 tab PO DAILY Ketorolac [Toradol] 10 mg PO Q6H PRN PRN Reason: Pain Nitroglycerin Sl Tabs [Nitrostat] 0.4 mg SUBLINGUAL Q5M PRN #15 tab PRN Reason: Chest Pain Mirtazapine [Remeron] 15 mg PO HS Atorvastatin [Lipitor] 20 mg PO HS cloNIDine HCL 0.1 mg PO BID Fluorometholone 0.1% Ophth Sharmin [Fml] 1 drops BOTH EYES BID Aspirin 81 mg PO DAILY #30 tab Thiamine [Vitamin B-1] 100 mg PO DAILY #30 tab Discharge Medication List levETIRAcetam [Keppra] 500 mg PO BID 10/23/20 [History] cloNIDine HCL 0.1 mg PO BID 09/03/21 [History] Fluorometholone 0.1% Ophth Sharmin [Fml] 1 drops BOTH EYES BID 08/02/23 [History] Loteprednol Etabonate [Alrex] 1 drop BOTH EYES BID 08/02/23 [History] Ketorolac [Toradol] 10 mg PO Q6H PRN 08/23/23 [History] Losartan-Hctz 50-12.5 mg [Hyzaar 50-12.5] 1 tab PO DAILY 08/23/23 [History] Aspirin 81 mg PO DAILY #30 tab 08/24/23 [Rx] Nitroglycerin Sl Tabs [Nitrostat] 0.4 mg SUBLINGUAL Q5M PRN #15 tab 08/24/23 [Rx] Thiamine [Vitamin B-1] 100 mg PO DAILY #30 tab 08/24/23 [Rx] Atorvastatin [Lipitor] 20 mg PO HS 09/06/23 [History] Mirtazapine [Remeron] 15 mg PO HS 09/06/23 [History] Acetaminophen Tab [Tylenol] 650 mg PO Q6HR PRN tab 09/07/23 [Rx] Albuterol Inhaler [Ventolin Hfa Inhaler] 2 puff INHALATION Q6H PRN #1 each 09/07/23 [Rx] Budesonide-Formot 160-4.5 Mcg [Symbicort 160-4.5 Mcg Inhaler] 2 puff INHALATION BID #10.2 gm 09/07/23 [Rx] Potassium Chloride 20 meq PO DAILY #60 cap 09/07/23 [Rx] chlordiazePOXIDE HCl [Librium] 20 mg PO TID #6 cap 09/07/23 [Rx] predniSONE 10 mg PO DIRECTED #30 tab 09/07/23 [Rx] Follow up Appointment(s)/Referral(s): Yandel Falk MD [STAFF PHYSICIAN] - 09/14/23 1:30 pm Henny Angel MD [Primary Care Provider] - 1-2 days Ambulatory/Diagnostic Orders: Basic Metabolic Panel [LAB.AMB] Time Frame: 3 Days, Location: None Selected Activity/Diet/Wound Care/Special Instructions: Activity limited until follow-up Follow-up with primary care provider on discharge Follow-up cardiology outpatient Continue with prednisone taper until finished Continue with inhalers Continue Librium taper and avoid all alcohol with this medication Avoid all alcohol use and exposure Continue taking potassium supplement and follow-up with repeat labs Discharge Disposition: HOME SELF-CARE
== END 2023-09-07 12:40 | disposition home or self-care (01) ==
LOC: EC 19:13 → 6NMEDSUR 09-06 00:35 → INTOOBSV 09-06 00:36 → OBSVTOIN 09-06 00:36 → 6NMEDSUR 09-06 05:49 → UNDODISIN 09-07 12:40
PROVIDERS: ADMIT Hospitalist; ATTEND Hospitalist
DX: F10.231 Alcohol dependence with withdrawal delirium (principal); F17.200 Nicotine dependence, unspecified, uncomplicated; F41.9 Anxiety disorder, unspecified; F31.9 Bipolar disorder, unspecified; F43.10 Post-traumatic stress disorder, unspecified; I25.2 Old myocardial infarction; J44.1 Chronic obstructive pulmonary disease with (acute) exacerbation; K76.9 Liver disease, unspecified; G40.909 Epilepsy, unspecified, not intractable, without status epilepticus; E44.0 Moderate protein-calorie malnutrition; Z79.899 Other long term (current) drug therapy; Z79.82 Long term (current) use of aspirin; Z80.0 Family history of malignant neoplasm of digestive organs; Z68.1 Body mass index [BMI] 19.9 or less, adult; Z91.199 Patient's noncompliance with other medical treatment and regimen due to unspecified reason; Z79.51 Long term (current) use of inhaled steroids
CPT/HCPCS: 96365; 96366; 96375 ×2; 96372 ×2; 99285; 36415; 94640 ×3; 94760; 93005; 80053 ×2; 83690; 83735 ×2; 84100; 84484; 85025 ×2; 85610; 85730; 81003; 71046; G0378 ×2; J2060 ×2; J0780; J1644 ×2; J2930 ×3; J3490; J1170 ×2

== ENCOUNTER 2023-11-17 21:43 | Inpatient (IN) | payer OTHER ==
[2023-11-17] MEDS: SODIUM CHLORIDE 0.9% 1,000 ML BAG IV STA (22:55)
--- NOTE | 2023-11-17 23:10 | ED ---
General Adult HPI - General Chief complaint: Psychiatric Symptoms Stated complaint: AMS Time Seen by Provider: 11/17/23 21:48 Source: patient, police Mode of arrival: wheelchair Limitations: no limitations - History of Present Illness Initial comments: Patient is a 57yo F with history of seziure disorder who is brought to the ER today for a well check. Family is concerned that the patient has not been eating, drinking or taking home medications. Upon arrival patient admits that she has not been eating or drinking well, she doesnt know what medications she is on or if she has been taking them. - Related Data Home Medications Medication Instructions Recorded Confirmed levETIRAcetam [Keppra] 500 mg PO BID 10/23/20 09/06/23 cloNIDine HCL 0.1 mg PO BID 09/03/21 09/06/23 Fluorometholone 0.1% Ophth Sharmin 1 drops BOTH EYES BID 08/02/23 09/06/23 [Fml] Loteprednol Etabonate [Alrex] 1 drop BOTH EYES BID 08/02/23 09/06/23 Ketorolac [Toradol] 10 mg PO Q6H PRN 08/23/23 09/06/23 Losartan-Hctz 50-12.5 mg [Hyzaar 1 tab PO DAILY 08/23/23 09/06/23 50-12.5] Atorvastatin [Lipitor] 20 mg PO HS 09/06/23 09/06/23 Mirtazapine [Remeron] 15 mg PO HS 09/06/23 09/06/23 Previous Rx's Medication Instructions Recorded Aspirin 81 mg PO DAILY #30 tab 08/24/23 Nitroglycerin Sl Tabs [Nitrostat] 0.4 mg SUBLINGUAL Q5M PRN #15 tab 08/24/23 Thiamine [Vitamin B-1] 100 mg PO DAILY #30 tab 08/24/23 Acetaminophen Tab [Tylenol] 650 mg PO Q6HR PRN tab 09/07/23 Albuterol Inhaler [Ventolin Hfa 2 puff INHALATION Q6H PRN #1 each 09/07/23 Inhaler] Budesonide-Formot 160-4.5 Mcg 2 puff INHALATION BID #10.2 gm 09/07/23 [Symbicort 160-4.5 Mcg Inhaler] Potassium Chloride 20 meq PO DAILY #60 cap 09/07/23 chlordiazePOXIDE HCl [Librium] 20 mg PO TID #6 cap 09/07/23 predniSONE 10 mg PO DIRECTED #30 tab 09/07/23 Allergies Allergy/AdvReac Type Severity Reaction Status Date / Time Penicillins Allergy Rash/Hives/Swelling Verified 09/06/23 07:10 all over body NSAIDS (Non-Steroidal AdvReac Unknown upset Verified 09/06/23 07:10 Anti-Inflamma stomach sertraline HCl [From Zoloft] AdvReac Suicidal/Ag Verified 09/06/23 07:10 ression Review of Systems ROS Statement: Those systems with pertinent positive or pertinent negative responses have been documented in the HPI. ROS Other: All systems not noted in ROS Statement are negative. Past Medical History Past Medical History: COPD, Liver Disease, Myocardial Infarction ([place]), Seizure Disorder, Vascular Disorder Additional Past Medical History / Comment(s): constpation, last bowel movement 4 days ago, feeling bloated,feeling of fullness, and abdominal pain, feels hungry then over eats then vomits to feel better, LAST SEIZURE - JANUARY 2021, "broken heart syndrome"., elevated liver enzymes, "dislocated disks", hx cervical cancer Last Myocardial Infarction Date:: 2019 History of Any Multi-Drug Resistant Organisms: None Reported Past Surgical History: Section, Heart Catheterization, Tubal Ligation Additional Past Surgical History / Comment(s): ORIF rt ankle/hardware later removed, exploratory lap, PAIN CLINIC PROCEDURE, BILAT CATARACTS REMOVED WITH LENS IMPLANTS, procedure to open a vein in left leg-couldn't confirm which leg, partial amputation rt hand middle finger, "procedure to remove cervical cancer" Past Anesthesia/Blood Transfusion Reactions: No Reported Reaction Past Psychological History: Anxiety, Bipolar, Depression, PTSD Smoking Status: Current every day smoker Past Alcohol Use History: Abuse, Daily, Heavy Past Drug Use History: Marijuana - Past Family History Father Family Medical History: Cancer, Prostate Disorder, Pulmonary Embolus Sister(s) Family Medical History: Cancer Brother(s) Family Medical History: Cancer Additional Family Medical History / Comment(s): colon and bladder General Exam - General Exam Comments Initial Comments: Physical Exam GENERAL: Dehydrated Chronically ill appearing, appears older than stated age HENT: Normocephalic, Atraumatic EYES: PERRL, EOMI PULMONARY: Unlabored respirations CARDIOVASCULAR: RRR Warm and well perfused extremities ABDOMEN: Non-distended SKIN: No rashes or bruising : Deferred NEUROLOGIC: Alert and oriented to self, able to identify she is in a hospital in 2023, otherwise poor historian Normal speech MUSCULOSKELETAL: Moving all extremities with no apparent injury PSYCHIATRIC: No SI/HI Limitations: no limitations Course Vital Signs 11/17/23 11/17/23 11/18/23 21:44 22:47 02:23 Temperature 98.3 F Pulse Rate 104 H 83 85 Respiratory 18 16 18 Rate Blood Pressure 181/109 156/93 156/89 O2 Sat by Pulse 100 96 99 Oximetry Medical Decision Making - Medical Decision Making Was pt. sent in by a medical professional or institution (, [facility], ELECTRONICS TEACHER, urgent care, hospital, or skilled nursing...) When possible be specific @ -No Did you speak to anyone other than the patient for history (EMS, parent, family, police, friend...)? What history was obtained from this source @ -No Did you review nursing and triage notes (agree or disagree)? Why? @ -I reviewed and agree with nursing and triage notes Were old charts reviewed (outside hosp., previous admission, EMS record, old EKG, old radiological studies, urgent care reports/EKG's, skilled nursing records)? Report findings @ -Previous labs were reviewed patient does not have a history of hyponatremia Differential Diagnosis (chest pain, altered mental status, abdominal pain women, abdominal pain men, vaginal bleeding, weakness, fever, dyspnea, syncope, headache, dizziness, GI bleed, back pain, seizure, CVA, palpatations, mental health)? @ -Differential includes underlying mental health disorder, memory impairment due to seizure disorder, early onset dementia EKG interpreted by me (3pts min.). @ -As above X-rays interpreted by me (1pt min.). @ -None done CT interpreted by me (1pt min.). @ -None done U/S interpreted by me (1pt. min.). @ -None done What testing was considered but not performed or refused? (CT, X-rays, U/S, labs)? Why? @ -None What meds were considered but not given or refused? Why? @ -None Did you discuss the management of the patient with other professionals (professionals i.e. , PA, ELECTRONICS TEACHER, lab, RT, psych nurse, social service technician, wellness manager, teacher, adult parole officer, field nurse case manager)? Give summary @ -Discussed with admitting team Was smoking cessation discussed for >3mins.? @ -No Was critical care preformed (if so, how long)? @ -No Were there social determinants of health that impacted care today? How? (Homelessness, low income, unemployed, alcoholism, drug addiction, transportation, low edu. Level, literacy, decrease access to med. care, intermediate, rehab)? @ -No Was there de-escalation of care discussed even if they declined (Discuss DNR or withdrawal of care, Hospice)? DNR status @ -No What co-morbidities impacted this encounter? (DM, HTN, Smoking, COPD, CAD, Cancer, CVA, ARF, Chemo, Hep., AIDS, mental health diagnosis, sleep apnea, morb id obesity)? @ -Smoking, seizure disorder, memory impairment Was patient admitted / discharged? Hospital course, mention meds given and route, prescriptions, significant lab abnormalities, going to OR and other pertinent info. @ -Admitted The patient was seen and evaluated history was obtained from the patient. Patient has memory loss believes she has not been eating or drinking does not know if she has been taking her medications does not know what medication she takes. Patient appears dehydrated labs were obtained and patient is hyponatremic. Patient was treated with IV fluids she was also given a dose of IV Keppra as she has a record of being on Keppra and is uncertain if she has be en taking it. At this time I do not feel it is safe to discharge the patient I do feel the patient requires admission the hospital for treatment of her hyponatremia and dehydration in addition to consult to social work to ensure the patient has a safe living condition and access to her medications. Undiagnosed new problem with uncertain prognosis? @ -No Drug Therapy requiring intensive monitoring for toxicity (Heparin, Nitro, Insulin, Cardizem)? @ -No Were any procedures done? @ -No Diagnosis/symptom? @ -Acute hyponatremia Acute, or Chronic, or Acute on Chronic? @ -Acute Uncomplicated (without systemic symptoms) or Complicated (systemic symptoms)? @ -Default Side effects of treatment? @ -No Exacerbation, Progression, or Severe Exacerbation? @ -No Poses a threat to life or bodily function? How? (Chest pain, [place], [place], pneumonia, PE, COPD, DKA, ARF, appy, cholecystitis, CVA, Diverticulitis, Homicidal, Suicidal, threat to staff... and all critical care pts) @ -Potentially - Lab Data Result diagrams: 11/17/23 22:59 11/17/23 22:59 Lab Results 11/17/23 11/17/23 11/18/23 Range/Units 22:59 22:59 00:05 WBC 8.2 (3.8-10.6) k/uL RBC 3.81 (3.80-5.40) m/uL Hgb 13.3 (11.4-16.0) gm/dL Hct 38.4 (34.0-46.0) % MCV 100.7 H (80.0-100.0) fL MCH 34.9 (25.0-35.0) pg MCHC 34.7 (31.0-37.0) g/dL RDW 13.6 (11.5-15.5) % Plt Count 263 (150-450) k/uL MPV 8.0 Neutrophils % 71 % Lymphocytes % 14 % Monocytes % 12 % Eosinophils % 0 % Basophils % 1 % Neutrophils # 5.8 (1.3-7.7) k/uL Lymphocytes # 1.2 (1.0-4.8) k/uL Monocytes # 0.9 (0-1.0) k/uL Eosinophils # 0.0 (0-0.7) k/uL Basophils # 0.1 (0-0.2) k/uL Macrocytosis Slight Sodium 129 L (137-145) mmol/L Potassium 3.7 (3.5-5.1) mmol/L Chloride 102 (98-107) mmol/L Carbon Dioxide 16 L (22-30) mmol/L Anion Gap 11 mmol/L BUN 8 (7-17) mg/dL Creatinine 0.39 L (0.52-1.04) mg/dL Est GFR (CKD-EPI)AfAm >90 (>60 ml/min/1.73 sqM) Est GFR (CKD-EPI)NonAf >90 (>60 ml/min/1.73 sqM) Glucose 95 (74-99) mg/dL Calcium 9.4 (8.4-10.2) mg/dL Total Bilirubin 1.2 (0.2-1.3) mg/dL AST 91 H (14-36) U/L ALT 86 H (4-34) U/L Alkaline Phosphatase 104 (38-126) U/L Total Protein 6.2 L (6.3-8.2) g/dL Albumin 4.0 (3.5-5.0) g/dL TSH 1.730 (0.465-4.680) mIU/L Urine Color Yellow Urine Appearance Cloudy H (Clear) Urine pH 7.0 (5.0-8.0) Ur Specific [place] 1.012 (1.001-1.035) Urine Protein Negative (Negative) Urine Glucose (UA) Negative (Negative) Urine Ketones Negative (Negative) Urine Blood Negative (Negative) Urine Nitrite Negative (Negative) Urine Bilirubin Negative (Negative) Urine Urobilinogen 4.0 (<2.0) mg/dL Ur Leukocyte Esterase Trace H (Negative) Urine RBC 1 (0-5) /hpf Urine WBC 1 (0-5) /hpf Ur Squamous Epith Cells 9 H (0-4) /hpf Urine Bacteria Rare H (None) /hpf Urine Mucus Occasional H (None) /hpf Salicylates <1.0 mg/dL Urine Opiates Screen Not Detected (NotDetected) Ur Oxycodone Screen Not Detected (NotDetected) Urine Methadone Screen Not Detected (NotDetected) Acetaminophen <10.0 ug/mL Ur Barbiturates Screen Not Detected (NotDetected) U Tricyclic Antidepress Not Detected (NotDetected) Ur Phencyclidine Scrn Not Detected (NotDetected) Ur Amphetamines Screen Not Detected (NotDetected) U Methamphetamines Scrn Not Detected (NotDetected) U Benzodiazepines Scrn Not Detected (NotDetected) Urine Cocaine Screen Not Detected (NotDetected) U Marijuana (THC) Screen Detected H (NotDetected) Serum Alcohol <10 mg/dL Disposition Clinical Impression: Hyponatremia, Medication noncompliance due to cognitive impairment, Dehydration Disposition: ADMITTED IP TO THIS [facility] Condition: Serious Is patient prescribed a controlled substance at d/c from ED?: No
[2023-11-17 23:22] LABS: Basophils # (A) 0.1 k/uL (0-0.2); Basophils % (A) 1 %; Eosinophils % (A) 0 %; HCT 38.4 % (34.0-46.0); HGB 13.3 gm/dL (11.4-16.0); Lymphocytes # (A) 1.2 k/uL (1.0-4.8); Lymphocytes % (A) 14 %; MCH 34.9 pg (25.0-35.0); MCHC 34.7 g/dL (31.0-37.0); MCV 100.7 fL (80.0-100.0); Macrocytosis Slight; Monocytes # (A) 0.9 k/uL (0-1.0); Monocytes % (A) 12 %; Neutrophils # (A) 5.8 k/uL (1.3-7.7); Neutrophils % (A) 71 %; Platelet Count 263 k/uL (150-450); RBC 3.81 m/uL (3.80-5.40); RDW 13.6 % (11.5-15.5); WBC 8.2 k/uL (3.8-10.6)
[2023-11-17 23:56] LABS: ALT 86 U/L (4-34); AST 91 U/L (14-36); Acetaminophen <10.0 ug/mL; African American GFR (CKD) >90 (>60 ml/min/1.73 sqM); Alcohol <10 mg/dL; Alkaline Phosphatase 104 U/L (38-126); Anion Gap 11 mmol/L; Blood Urea Nitrogen 8 mg/dL (7-17); Calcium 9.4 mg/dL (8.4-10.2); Carbon Dioxide 16 mmol/L (22-30); Chloride 102 mmol/L (98-107); Glucose 95 mg/dL (74-99); Non-African American GFR(CKD) >90 (>60 ml/min/1.73 sqM); Potassium 3.7 mmol/L (3.5-5.1); Salicylate <1.0 mg/dL; Sodium 129 mmol/L (137-145); Total Bilirubin 1.2 mg/dL (0.2-1.3); Total Protein 6.2 g/dL (6.3-8.2)
[2023-11-18 00:15] LABS: Appearance,Urine Cloudy (Clear); Bacteria,Urine Rare /hpf; Bilirubin,Urine Negative (Negative); Blood,Urine Negative (Negative); Color,Urine Yellow; Glucose,Urine (UA) Negative (Negative); Ketones,Urine Negative (Negative); Leukocyte Esterase,Urine Trace (Negative); Mucus,Urine Occasional /hpf; Nitrite,Urine Negative (Negative); Protein,Urine Negative (Negative); RBC,Urine 1 /hpf (0-5); Specific Gravity,Urine 1.012 (1.001-1.035); Squamous Epithelial Cell,Urine 9 /hpf (0-4); WBC,Urine 1 /hpf (0-5)
[2023-11-18 00:25] LABS: Amphetamine Screen,Urine Not Detected (NotDetected); Barbiturate Screen,Urine Not Detected (NotDetected); Benzodiazepines Screen,Urine Not Detected (NotDetected); Cocaine Screen,Urine Not Detected (NotDetected); Methadone Screen, Urine Not Detected (NotDetected); Opiate Screen,Urine Not Detected (NotDetected); Oxycodone Screen, Urine Not Detected (NotDetected); Phencyclidine Screen,Urine Not Detected (NotDetected); Tricyclic Antidepressant,Urine Not Detected (NotDetected); Urn Cannabinoid Scrn Detected (NotDetected)
[2023-11-18] MEDS: NICOTINE 21MG/24HR PATCH TRANSDERM STA (02:14)
[2023-11-18] MEDS: levETIRAcetam IV 2,000 MG in SODIUM CHLORIDE 0.9% 250 ML IVPB ONE (02:16)
[2023-11-18] MEDS: SODIUM CHLORIDE 0.9% 1,000 ML IV SCH (02:16)
[2023-11-18] MEDS ORDERED: NITROGLYCERIN SL TABS 0.4 MG TAB SUBLINGUAL PRN (12:45)
[2023-11-18] MEDS ORDERED: ALBUTEROL NEBULIZED 2.5 MG/3 ML INHALATION PRN (12:45)
[2023-11-18] MEDS ORDERED: ETODOLAC 400 MG TAB PO PRN (12:45)
[2023-11-18 13:09] VITALS: BMI 23.0
[2023-11-18 13:55] LABS: ALT 57 U/L (4-34); AST 63 U/L (14-36); African American GFR (CKD) >90 (>60 ml/min/1.73 sqM); Albumin 3.2 g/dL (3.5-5.0); Albumin/Globulin Ratio 1.5; Alkaline Phosphatase 95 U/L (38-126); Anion Gap 8 mmol/L; Blood Urea Nitrogen 4 mg/dL (7-17); Calcium 8.3 mg/dL (8.4-10.2); Carbon Dioxide 18 mmol/L (22-30); Chloride 104 mmol/L (98-107); Globulin 2.1 g/dL; Glucose 146 mg/dL (74-99); Magnesium 1.4 mg/dL (1.6-2.3); Non-African American GFR(CKD) >90 (>60 ml/min/1.73 sqM); Sodium 130 mmol/L (137-145); Total Bilirubin 0.9 mg/dL (0.2-1.3); Total Protein 5.3 g/dL (6.3-8.2)
[2023-11-18 14:01] LABS: Potassium 2.7 mmol/L (3.5-5.1)
[2023-11-18] MEDS: MULTIVITAMINS, THERA 1 EACH TAB PO SCH (14:16)
[2023-11-18] MEDS: chlordiazePOXIDE 25 MG CAP PO SCH (14:16)
[2023-11-18] MEDS: ALREX BOTH EYES SCH (14:16)
[2023-11-18] MEDS: THIAMINE 100 MG TAB PO SCH (14:16)
[2023-11-18] MEDS ORDERED: Magnesium Replacement Protocol 1 EACH MISC MISCELLANE PRN (15:09)
[2023-11-18] MEDS ORDERED: Potassium Replacement Protocol 1 EACH MISC MISCELLANE PRN (15:09)
[2023-11-18] MEDS: POTASSIUM CHLORIDE ER 20 MEQ TAB.ER PO SCH (15:29)
[2023-11-18] MEDS: MAGNESIUM SULFATE-D5W PMX 1 GM in DEXTROSE/WATER 1 100ML.BAG IVPB SCH (15:29)
[2023-11-18] MEDS: 0.9% NACL WITH KCL 20 MEQ/L 1,000 ML IV SCH (20:50)
[2023-11-18] MEDS: levETIRAcetam 500 MG TAB PO SCH (20:50)
[2023-11-18] MEDS: MIRTAZAPINE 15 MG TAB PO SCH (20:51)
[2023-11-18] MEDS: ATORVASTATIN 20 MG TAB PO SCH (20:51)
[2023-11-18] MEDS: FLUOROMETHOLONE 0.1% OPHTH DROPS 5 ML BTL BOTH EYES SCH (22:01)
[2023-11-18] MEDS: SODIUM CHLORIDE 0.9% 1,000 ML with POTASSIUM CHLORIDE 20 MEQ IV SCH (22:31)
--- NOTE | 2023-11-19 05:44 | P.HPIM ---
History of Present Illness H&P Date: 11/18/23 This is a very pleasant 57-year-old female who presented to the emergency department with increased weakness and lethargy and family reports patient has not been eating or drinking very well. Patient was found to be hyponatremic with a sodium of 129 with electrolyte abnormalities with significant history of alcohol use with concerns of acute withdrawal. Family was concerned patient has not been eating or drinking very well over the last 2 days and has been more lethargic. Patient has a significant past medical history of daily alcohol use at least 4 large beers daily, continued nicotine and marijuana use along with COPD, liver disease, seizure history, previous myocardial infarction, vascular disorder. Patient is on seizure medications and reports she has been compliant with taking her medications, unsure how reliable. Patient was admitted for hyponatremia with dehydration. Follow-up labs revealed mildly improved sodium of 130 after hydration also noted to have low potassium of 2.7 and magnesium was low. Will replace per protocol will be aggressive and also initiate Librium taper as well as as needed Ativan with concerns of possible acute withdrawal. Initially patient reported she is not able to quit drinking she has tried many times and has been unsuccessful. Patient does not want to go to alcohol rehab but reports she does want to try to quit as she has family and needs to continue supporting them. REVIEW OF SYSTEMS: CONSTITUTIONAL: No fever, no malaise, no fatigue. HEENT: No recent visual problems or hearing problems. Denied any sore throat. CARDIOVASCULAR: No chest pain, orthopnea, PND, no palpitations, no syncope. PULMONARY: No shortness of breath, no cough, no hemoptysis. GASTROINTESTINAL: No diarrhea, no nausea, no vomiting, no abdominal pain. Reports not much of an appetite and has not been eating very much NEUROLOGICAL: No headaches, no weakness, no numbness. HEMATOLOGICAL: Denies any bleeding or petechiae. GENITOURINARY: Denies any burning micturition, frequency, or urgency. MUSCULOSKELETAL/RHEUMATOLOGICAL: Denies any joint pain, swelling, or any muscle pain. ENDOCRINE: Denies any polyuria or polydipsia. The rest of the 14-point review of systems is negative. PHYSICAL EXAMINATION: GENERAL: The patient is alert and oriented x3, not in any acute distress. Well developed, thin built, elderly appearing HEENT: Pupils are round and equally reacting to light. EOMI. No scleral icterus. No conjunctival pallor. Normocephalic, atraumatic. No pharyngeal erythema. No thyromegaly. CARDIOVASCULAR: S1 and S2 present. No murmurs, rubs, or gallops. PULMONARY: Chest is clear to auscultation, no wheezing or crackles. ABDOMEN: Soft, thin, scaphoid nontender, nondistended, normoactive bowel sounds. No palpable organomegaly. MUSCULOSKELETAL: No joint swelling or deformity. EXTREMITIES: No cyanosis, clubbing, or pedal edema. NEUROLOGICAL: Gross neurological examination did not reveal any focal deficits. SKIN: No rashes. Assessment: Hyponatremia, sodium 129 likely secondary to beer Potomania as well as poor oral intake Daily alcohol use with concerns of acute alcohol withdrawal Hypomagnesemia Hypokalemia Mild calorie malnutrition with a BMI of 23 History of seizures COPD history, not in exacerbation Continued ongoing tobacco use THC use Previous history of myocardial infarction's History of vascular disorder GI prophylaxis DVT prophylaxis Full code Plan: Patient will be continued on gentle IV hydration and repeat sodium slightly improved at 130 although noted to have significant drop in potassium as well as magnesium. Potassium 2.7 and will replace per protocol with aggressive replacement as well as magnesium being 1.4. Encouraged oral intake and will use antinausea medications as needed Encouraged to increase activity as tolerated with possible PT/OT therapy Will initiate Librium and as needed Ativan with concerns of possible acute early alcohol withdrawal Counseled extensively on alcohol and tobacco and THC cessation patient initially reported she is unable to quit as she has tried multiple times and unsuccessful. Patient reports she does want to quit as she wants to continue to live as she h as family that she supports. Will monitor overnight for any acute alcohol withdrawal and provide resources for AA meetings and outpatient community health resources. Patient reports she does not want to go to alcohol rehab Follow-up on repeat labs Possible discharge planning in the next 24 hours The impression and plan of care has been dictated by Haleigh Vergara, Nurse Practitioner as directed. Dr. Cecelia MD I have performed a history and examination and MDM of this patient, discussed the same with the dictator, and agree with the dictator's assessment and plan as written ,documented as a scribe. Based on total visit time, I have performed more than 50% of the visit. Past Medical History Past Medical History: COPD, Liver Disease, Myocardial Infarction ([place]), Seizure Disorder, Vascular Disorder Additional Past Medical History / Comment(s): constpation, last bowel movement 4 days ago, feeling bloated,feeling of fullness, and abdominal pain, feels hungry then over eats then vomits to feel better, LAST SEIZURE - JANUARY 2021, "broken heart syndrome"., elevated liver enzymes, "dislocated disks", hx cervical cancer Last Myocardial Infarction Date:: 2019 History of Any Multi-Drug Resistant Organisms: None Reported Past Surgical History: Section, Heart Catheterization, Tubal Ligation Additional Past Surgical History / Comment(s): ORIF rt ankle/hardware later removed, exploratory lap, PAIN CLINIC PROCEDURE, BILAT CATARACTS REMOVED WITH LENS IMPLANTS, procedure to open a vein in left leg-couldn't confirm which leg, partial amputation rt hand middle finger, "procedure to remove cervical cancer" Past Anesthesia/Blood Transfusion Reactions: No Reported Reaction Past Psychological History: Anxiety, Bipolar, Depression, PTSD Smoking Status: Current every day smoker Past Alcohol Use History: Abuse, Daily, Heavy Past Drug Use History: Marijuana - Past Family History Father Family Medical History: Cancer, Prostate Disorder, Pulmonary Embolus Sister(s) Family Medical History: Cancer Brother(s) Family Medical History: Cancer Additional Family Medical History / Comment(s): colon and bladder Medications and Allergies Home Medications Medication Instructions Recorded Confirmed Type levETIRAcetam [Keppra] 500 mg PO BID 10/23/20 11/18/23 History cloNIDine HCL 0.1 mg PO BID 09/03/21 11/18/23 History Fluorometholone 0.1% Ophth Sharmin 1 drops BOTH EYES BID 08/02/23 11/18/23 History [Fml] Loteprednol Etabonate [Alrex] 1 drop BOTH EYES BID 08/02/23 11/18/23 History Ketorolac [Toradol] 10 mg PO Q6H PRN 08/23/23 11/18/23 History Losartan-Hctz 50-12.5 mg [Hyzaar 1 tab PO DAILY 08/23/23 11/18/23 History 50-12.5] Atorvastatin [Lipitor] 20 mg PO HS 09/06/23 11/18/23 History Mirtazapine [Remeron] 15 mg PO HS 09/06/23 11/18/23 History Potassium Chloride 20 meq PO DAILY #60 cap 09/07/23 11/18/23 Rx Albuterol Inhaler [Ventolin Hfa 2 puff INHALATION RT-Q6H PRN 11/18/23 11/18/23 History Inhaler] Multivitamins, Thera [Multivitamin 1 tab PO DAILY 11/18/23 11/18/23 History (formulary)] Nitroglycerin Sl Tabs [Nitrostat] 0.4 mg SL Q5M PRN 11/18/23 11/18/23 History Allergies Allergy/AdvReac Type Severity Reaction Status Date / Time Penicillins Allergy Rash/Hives/Swelling Verified 11/18/23 10:05 all over body NSAIDS (Non-Steroidal AdvReac Unknown upset Verified 11/18/23 10:05 Anti-Inflamma stomach sertraline HCl [From Zoloft] AdvReac Suicidal/Ag Verified 11/18/23 10:05 ression Physical Exam Vitals: Vital Signs Temp Pulse Pulse Resp BP BP Pulse Ox 11/18/23 07:13 97.9 F 67 18 119/72 99 11/18/23 04:04 98.1 F 84 18 151/95 100 11/18/23 03:00 98.1 F 84 18 151/95 100 11/18/23 02:23 85 18 156/89 99 11/17/23 22:47 83 16 156/93 96 11/17/23 21:44 98.3 F 104 H 18 181/109 100 Intake and Output 11/17/23 11/18/23 11/18/23 22:59 06:59 14:59 Other: # Voids 2 Weight 53.524 kg 53.524 kg Results CBC & Chem 7: 11/17/23 22:59 11/18/23 13:18 Labs: Abnormal Lab Results - Last 24 Hours (Table) 11/17/23 11/17/23 11/18/23 Range/Units 22:59 22:59 00:05 MCV 100.7 H (80.0-100.0) fL Sodium 129 L (137-145) mmol/L Carbon Dioxide 16 L (22-30) mmol/L Creatinine 0.39 L (0.52-1.04) mg/dL AST 91 H (14-36) U/L ALT 86 H (4-34) U/L Total Protein 6.2 L (6.3-8.2) g/dL Urine Appearance Cloudy H (Clear) Ur Leukocyte Esterase Trace H (Negative) Ur Squamous Epith Cells 9 H (0-4) /hpf Urine Bacteria Rare H (None) /hpf Urine Mucus Occasional H (None) /hpf U Marijuana (THC) Screen Detected H (NotDetected) Thrombosis Risk Factor Assmnt - Choose All That Apply Any of the Below Risk Factors Present?: Yes Each Factor Represents 1 point: Age 41-60 years Thrombosis Risk Factor Assessment Total Risk Factor Score: 1 Thrombosis Risk Factor Assessment Level: Low Risk
[2023-11-19] MEDS: NALOXONE 0.4 MG/ML 1 ML VIAL IV PRN (08:48)
[2023-11-19 08:55] LABS: Glucose,Whole Blood 124 mg/dL (70-110)
[2023-11-19] MEDS: levETIRAcetam IV 500 MG/5 ML VIAL IVP STA (11:28)
[2023-11-19 11:36] LABS: ALT 55 U/L (8-44); AST 51 U/L (13-35); Albumin 3.4 g/dL (3.8-4.9); Albumin/Globulin Ratio 2.27 Ratio (1.60-3.17); Alkaline Phosphatase 79 U/L (41-126); BUN/Creat Ratio <8.75 Ratio (12.00-20.00); Blood Urea Nitrogen <3.5 mg/dL (9.0-27.0); Calcium 8.3 mg/dL (8.7-10.3); Carbon Dioxide 18.8 mmol/L (21.6-31.8); Chloride 109 mmol/L (96-109); Globulin 1.5 g/dL (1.6-3.3); Glucose 83 mg/dL (70-110); Magnesium 2.2 mg/dL (1.5-2.4); Phosphorus 3.5 mg/dL (2.4-5.1); Potassium 3.9 mmol/L (3.5-5.5); Sodium 140 mmol/L (135-145); Total Bilirubin 0.5 mg/dL (0.3-1.2); Total Protein 4.9 g/dL (6.2-8.2)
[2023-11-19 12:22] LABS: Amphetamine Screen,Urine Not Detected (NotDetected); Barbiturate Screen,Urine Not Detected (NotDetected); Benzodiazepines Screen,Urine Detected (NotDetected); Cocaine Screen,Urine Not Detected (NotDetected); Methadone Screen, Urine Not Detected (NotDetected); Opiate Screen,Urine Not Detected (NotDetected); Oxycodone Screen, Urine Not Detected (NotDetected); Phencyclidine Screen,Urine Not Detected (NotDetected); Tricyclic Antidepressant,Urine Not Detected (NotDetected); Urn Cannabinoid Scrn Detected (NotDetected)
[2023-11-19] MEDS: NICOTINE 21MG/24HR PATCH TRANSDERM SCH (14:19)
--- NOTE | 2023-11-19 16:00 | P.CNNES ---
History of Present Illness Consult date: 11/19/23 Requesting physician: Lizzette Mcmahon Reason for Consult: ams History of Present Illness: This is a 57-year-old woman with history of seizure, alcohol use, tobacco use, medication noncompliance presented emergency department for a well check. It seems that the family was concerned since the patient was not eating drinking or taking her home medication. Neurology is consulted for altered mental status. Per the patient nurse it seems that the patient was having full consideration of mentation. Patient states that she has a history of seizure and she supposed to be on Keppra 500 mg twice daily and has not been taking the medication for the last 2 days. She follows up with Dr. Griffith as outpatient for her neurological care stated that she saw her neurologist last about 6-month ago but she stated she had a seizure about 3 months ago in which basically she does not response and blacks out. But she stated that during that time also she was not compliant taking her medication. She had a history of seizures since at least 2008. She states that she is drinks about 4-5 beers daily and she stated that she is an alcoholic and her own words. She smokes about a pack a day. Currently she feels back to baseline. In ED the patient was given IV Keppra 2 g. Some of the workup during this hospital visit consisted of: MCV of 100.7 Potassium is 2.7 Sodium is 129 and the most recent 1 is 140 Calcium is 9.4 on presentation AST is 91 and ALT is 86 on presentation is trending down TSH is 1.730 Proctoring is positive for marijuana Otherwise the rest is nondetected. Then repeated 1 was positive for benzos and marijuana. Review of Systems The positive and negative as per HPI. Past Medical History Past Medical History: COPD, Liver Disease, Myocardial Infarction ([place]), Seizure Disorder, Vascular Disorder Additional Past Medical History / Comment(s): constpation, last bowel movement 4 days ago, feeling bloated,feeling of fullness, and abdominal pain, feels hungry then over eats then vomits to feel better, LAST SEIZURE - JANUARY 2021, "broken heart syndrome"., elevated liver enzymes, "dislocated disks", hx cervical cancer Last Myocardial Infarction Date:: 2019 History of Any Multi-Drug Resistant Organisms: None Reported Past Surgical History: Section, Heart Catheterization, Tubal Ligation Additional Past Surgical History / Comment(s): ORIF rt ankle/hardware later removed, exploratory lap, PAIN CLINIC PROCEDURE, BILAT CATARACTS REMOVED WITH LENS IMPLANTS, procedure to open a vein in left leg-couldn't confirm which leg, partial amputation rt hand middle finger, "procedure to remove cervical cancer" Past Anesthesia/Blood Transfusion Reactions: No Reported Reaction Past Psychological History: Anxiety, Bipolar, Depression, PTSD Smoking Status: Current every day smoker Past Alcohol Use History: Abuse, Daily, Heavy Past Drug Use History: Marijuana - Past Family History Father Family Medical History: Cancer, Prostate Disorder, Pulmonary Embolus Sister(s) Family Medical History: Cancer Brother(s) Family Medical History: Cancer Additional Family Medical History / Comment(s): colon and bladder Medications and Allergies Home Medications Medication Instructions Recorded Confirmed Type levETIRAcetam [Keppra] 500 mg PO BID 10/23/20 11/18/23 History cloNIDine HCL 0.1 mg PO BID 09/03/21 11/18/23 History Fluorometholone 0.1% Ophth Sharmin 1 drops BOTH EYES BID 08/02/23 11/18/23 History [Fml] Loteprednol Etabonate [Alrex] 1 drop BOTH EYES BID 08/02/23 11/18/23 History Ketorolac [Toradol] 10 mg PO Q6H PRN 08/23/23 11/18/23 History Losartan-Hctz 50-12.5 mg [Hyzaar 1 tab PO DAILY 08/23/23 11/18/23 History 50-12.5] Atorvastatin [Lipitor] 20 mg PO HS 09/06/23 11/18/23 History Mirtazapine [Remeron] 15 mg PO HS 09/06/23 11/18/23 History Potassium Chloride 20 meq PO DAILY #60 cap 09/07/23 11/18/23 Rx Albuterol Inhaler [Ventolin Hfa 2 puff INHALATION RT-Q6H PRN 11/18/23 11/18/23 History Inhaler] Multivitamins, Thera [Multivitamin 1 tab PO DAILY 11/18/23 11/18/23 History (formulary)] Nitroglycerin Sl Tabs [Nitrostat] 0.4 mg SL Q5M PRN 11/18/23 11/18/23 History Allergies Allergy/AdvReac Type Severity Reaction Status Date / Time Penicillins Allergy Rash/Hives/Swelling Verified 11/18/23 10:05 all over body NSAIDS (Non-Steroidal AdvReac Unknown upset Verified 11/18/23 10:05 Anti-Inflamma stomach sertraline HCl [From Zoloft] AdvReac Suicidal/Ag Verified 11/18/23 10:05 ression Physical Examination - Vital Signs Vital Signs: Vital Signs Temp Pulse Resp BP Pulse Ox 11/19/23 08:48 12 11/19/23 07:13 69 16 138/88 98 11/19/23 01:57 98.0 F 87 16 116/76 100 11/18/23 20:00 98.1 F 70 16 117/82 100 Intake and Output 11/19/23 11/19/23 11/19/23 06:59 14:59 22:59 Intake Total 590 Balance 590 Intake: Oral 590 Other: # Voids 1 GENERAL: The patient is lying in bed and is not in acute distress. NEUROLOGICAL: Higher mental function: The patient is awake, alert, oriented to self, place and time. Patient is following commands. No aphasia and no neglect. Cranial nerves: The pupils are round, equal and reactive to light and accommodation. Visual lund are full to confrontation throughout. Extraocular movement is intact no nystagmus is noted. Facial sensation is normal to touch throughout. The facial strength is normal throughout. Hearing is normal bilaterally to hand rub. Tongue is midline and moved [id number] without any difficulty. No dysarthria is noted. Shoulder shrug is normal bilaterally. Motor: The strength is 5 over 5 throughout. Normal tone and bulk. Cerebellum: Normal finger to nose bilaterally. Has tremors with extending her arms out. Sensation: Sensation is normal to touch throughout. Reflexes (right/left): 2+ throughout. Plantars are downgoing bilaterally. Results - Laboratory Findings CBC and BMP: 11/17/23 22:59 11/19/23 06:31 Abnormal Lab Findings: Abnormal Labs 11/17/23 11/17/23 11/18/23 22:59 22:59 00:05 MCV 100.7 H Sodium 129 L Potassium Carbon Dioxide 16 L Anion Gap BUN Creatinine 0.39 L BUN/Creatinine Ratio Glucose POC Glucose (mg/dL) Calcium Magnesium AST 91 H ALT 86 H Total Protein 6.2 L Albumin Globulin Urine Appearance Cloudy H Ur Leukocyte Esterase Trace H Ur Squamous Epith Cells 9 H Urine Bacteria Rare H Urine Mucus Occasional H U Benzodiazepines Scrn U Marijuana (THC) Screen Detected H 11/18/23 11/19/23 11/19/23 13:18 06:31 08:54 MCV Sodium 130 L Potassium 2.7 L* Carbon Dioxide 18 L 18.8 L Anion Gap 12.20 H BUN 4 L <3.5 L Creatinine 0.32 L 0.4 L BUN/Creatinine Ratio <8.75 L Glucose 146 H POC Glucose (mg/dL) 124 H Calcium 8.3 L 8.3 L Magnesium 1.4 L AST 63 H 51 H ALT 57 H 55 H Total Protein 5.3 L 4.9 L Albumin 3.2 L 3.4 L Globulin 1.5 L Urine Appearance Ur Leukocyte Esterase Ur Squamous Epith Cells Urine Bacteria Urine Mucus U Benzodiazepines Scrn U Marijuana (THC) Screen 11/19/23 10:58 MCV Sodium Potassium Carbon Dioxide Anion Gap BUN Creatinine BUN/Creatinine Ratio Glucose POC Glucose (mg/dL) Calcium Magnesium AST ALT Total Protein Albumin Globulin Urine Appearance Ur Leukocyte Esterase Ur Squamous Epith Cells Urine Bacteria Urine Mucus U Benzodiazepines Scrn Detected H U Marijuana (THC) Screen Detected H Assessment and Plan Assessment: This is a 57-year-old woman with history of seizure since at least 2008, alcohol use, tobacco use, medication noncompliance who presents to the emergency department for a well check. Family is concerned that the patient is not eating drinking and taking her medication. Today the patient had repeat episode of confusion in which she was not responding but no jerking per the nurse. She is currently back to baseline. Patient states that she has not been taking her seizure medication for the past couple days and the past she also misses medication. Drinks about 4-5 beers daily. Episode of unresponsiveness with confusion earlier today is likely due to breakthrough seizure due to her medication noncompliance as well as provoked due to metabolic derangement. Possible the patient is going through alcohol withdrawal (alcohol level <10). Mild hyponatremia ---resolved Mildly transaminitis ---that is trending down Macrocytosis probable due to alcohol use Alcohol use and patient states she is an alcoholic History of seizure since 2008 and she is supposed to be on Keppra 500 mg twice daily but has not the medication for at least 2 days and has missed her medication in the past Medication noncompliance Tobacco use Plan: CT of the head is ordered and is pending I gave the patient Valium 5 mg once and loaded the patient with Keppra 1 g once. She was given 2 g yesterday in the ED. I increased her home dose of Keppra from 500mg to 1000 mg twice daily. Seizure precautions seizure pads Keppra level is ordered by the primary team is pending but if the level is norm al it is due to her Keppra loading during this hospital visit. Per the [place] DMV because of the seizure, to avoid driving for 6 months, avoid heights, avoid swimming unassisted or using heavy machinery and this was notified to the patient. I ordered vitamin B12 and folate level. Continue thiamine 100 mg daily I will defer use of CIWA protocol to primary team. She is on Librium Patient was counseled on tobacco cessation and alcohol cessation. Patient states she does not need any help for the alcohol cessation but does acknowledge that she is an alcoholic. Will defer the rest of the medical management to primary and other specialist Upon discharge the patient needs to follow-up with her neurologist Dr. Griffith as an outpatient within 1 to 2 weeks I discussed with the patient and her nurses at bedside Thank for the consultation. Dr. Medley will resume neurology service tomorrow A.M. Time with Patient: Greater than 30
--- NOTE | 2023-11-19 18:29 | CT ---
EXAMINATION TYPE: CT brain wo con DATE OF EXAM: 11/19/2023 COMPARISON: 08/02/2023 HISTORY: 57-year-old female confusion, altered mental status TECHNIQUE: Examination was done in axial plane without intravenous contrast. Coronal and sagittal r econstructions performed. CT DLP: 1095.4 mGycm Automated exposure control for dose reduction was used. FINDINGS: There is extra-axial hyperdensity superior right parasagittal frontoparietal convexity measuring 2 to 3 mm thick. No associated mass effect. No midline shift or other acute intracranial hemorrhage seen. The patient is brought back to be rescanned in the event that this corresponds to motion artifact. On the rescan images, the finding does not persist. Findings compatible with calvarial motion artifact. There is no evidence for acute intracranial hemorrhage, acute ischemic changes, or mass. There is no effacement of cerebral sulci or basal subarachnoid cisterns. Mild ventriculomegaly is unchanged, Sy's ratio calculated at 0.33. Mild patchy white matter hypoden sities in both cerebral hemispheres. Paranasal sinuses and mastoid air cells well pneumatized. Orbits and globes are intact. IMPRESSION: 1. Initial scan showed possible extra-axial abnormality superior right parasagittal frontoparietal co nvexity. Repeat scan shows this to be motion artifact of the skull. No acute intracranial abnormality seen. 2. Stable mild ventriculomegaly probably due to central cerebral atrophy. Mild patchy burden of chron ic small vessel ischemic disease.
[2023-11-19] MEDS: levETIRAcetam 500 MG TAB PO SCH (20:25)
[2023-11-20] MEDS: LORazepam 1 MG TAB PO PRN (03:20)
--- NOTE | 2023-11-20 06:48 | P.PN ---
Subjective Progress Note Date: 11/19/23 This is a very pleasant 57-year-old female who presented to the emergency department with increased weakness and lethargy and family reports patient has not been eating or drinking very well. Patient was found to be hyponatremic with a sodium of 129 with electrolyte abnormalities with significant history of alcohol use with concerns of acute withdrawal. Family was concerned patient has not been eating or drinking very well over the last 2 days and has been more lethargic. Patient has a significant past medical history of daily alcohol use at least 4 large beers daily, continued nicotine and marijuana use along with COPD, liver disease, seizure history, previous myocardial infarction, vascular disorder. Patient is on seizure medications and reports she has been compliant with taking her medications, unsure how reliable. Patient was admitted for hyponatremia with dehydration. Follow-up labs revealed mildly improved sodium of 130 after hydration also noted to have low potassium of 2.7 and magnesium was low. Will replace per protocol will be aggressive and also initiate Librium taper as well as as needed Ativan with concerns of possible acute withdrawal. Initially patient reported she is not able to quit drinking she has tried many times and has been unsuccessful. Patient does not want to go to alcohol rehab but reports she does want to try to quit as she has family and needs to continue supporting them. 11/19/2023 Patient is seen and evaluated in follow-up this morning currently awake, alert and oriented x 3 at her baseline. Apparently per nursing staff and a team was oswald franco as patient was found to be unresponsive and not talking. Patient's boyfriend had recently been there with concerns of possible ingestion of some form of medication or drug. Patient refused taking any medications and reports he chronically takes pain medications but has to go to his doctors daily and they administer his medications. Patient admits to smoking marijuana, drinking beer, and continued tobacco use otherwise denies any other illicit drug use. Will repeat a drug screen. Patient has been taking Librium since admission. Initial drug screen was positive for marijuana. Patient is currently afebrile with no reports of chest pain or shortness of breath. Potassium and magnesium were replaced and improved and patient is eating and drinking with no reported nausea or vomiting. Patient is asking when she can go home on exam. Patient also requesting to go outside to smoke 1 cigarette. Neurology was consulted and pending along with CT of the brain. Review of systems: Constitutional: No reports of fatigue, fever, or chills Cardiovascular: No reports of chest pain or palpitations Respiratory: No reports of shortness of breath or cough GI: No reports of nausea, vomiting, or diarrhea : No reports of dysuria or retention Neurovascular: reports of generalized weakness All medications have been reviewed The rest of the 14-point review of systems is negative. PHYSICAL EXAMINATION: GENERAL: The patient is alert and oriented x3, not in any acute distress. Well developed, thin built, elderly appearing HEENT: Pupils are round and equally reacting to light. EOMI. No scleral icterus. No conjunctival pallor. Normocephalic, atraumatic. No pharyngeal erythema. No th yromegaly. CARDIOVASCULAR: S1 and S2 present. No murmurs, rubs, or gallops. PULMONARY: Chest is clear to auscultation, no wheezing or crackles. Coarse rhonchi noted ABDOMEN: Soft, thin, scaphoid nontender, nondistended, normoactive bowel sounds. No palpable organomegaly. MUSCULOSKELETAL: No joint swelling or deformity. EXTREMITIES: No cyanosis, clubbing, or pedal edema. NEUROLOGICAL: Gross neurological examination did not reveal any focal deficits. SKIN: No rashes. Assessment: Hyponatremia, sodium 129 likely secondary to beer potomania as well as poor oral intake Daily alcohol use with concerns of acute alcohol withdrawal Episode of unresponsiveness with confusion, likely a breakthrough seizure as patient reports has been noncompliant and has not been taking her medications for at least 2 days. Neurology consulted and will undergo EEG, CT brain. Keppra level was ordered and pending as well Hypomagnesemia, replaced and improved Hypokalemia, replaced and improved Mild calorie malnutrition with a BMI of 23 History of seizures, noncompliant with medications COPD history, not in exacerbation Continued ongoing tobacco use THC use Previous history of myocardial infarction's History of vascular disorder GI prophylaxis DVT prophylaxis Full code Plan: Patient will be continued on gentle IV hydration and repeat sodium improved. Potassium and magnesium have been replaced and within normal limits Encouraged oral intake and will use antinausea medications as needed Patient had an episode this morning of unresponsiveness and boyfriend was visiting with concerns of possible drug ingestion. Boyfriend and patient deny taking any medications. Patient reports her boyfriend does take medications which is controlled and has to go to his doctors daily and they administer it. Patient does admit to smoking marijuana, drinking alcohol, and continued cigarette smoking. Patient denies any other illicit drug use. Repeat UDS is positive for marijuana which was initially and benzos although patient has taken a couple of Librium during this hospitalization Neurology was consulted and EEG along with CT brain being done. CT brain was negative for acute findings is the initial CT with concerns of possible hemorrhage. Repeat imaging confirms this was artifact. Mentation is back to baseline and patient is alert and oriented x 3. Patient is forgetful and somewhat of a poor historian although this is baseline. Encouraged to increase activity as tolerated with possible reevaluation with PT/OT therapy as patient had an episode of unresponsiveness and appears generally weak Will continue Librium and as needed Ativan with concerns of possible acute early alcohol withdrawal. Patient reports she drinks 4-5 beers daily Counseled extensively on alcohol and tobacco and THC cessation patient initially reported she is unable to quit as she has tried multiple times and unsuccessful. Patient reports she does want to quit as she wants to continue to live as she has family that she supports. Will monitor overnight for any acute alcohol withdrawal and provide resources for AA meetings and outpatient community health resources. Patient reports she does not want to go to alcohol rehab Follow-up on repeat labs Monitor overnight and complete the neurological workup. Patient was reinitiated on Keppra and Keppra level ordered and pending. Neurology increasing dosing as patient likely had breakthrough seizure. Patient reports she has been noncompliant with her medications and follows with Dr. Nahun jack in the outpatient setting. Patient will need follow-up on discharge Patient is asking when she can go home. Consider possible discharge in the next 24 hours once cleared by neurology The impression and plan of care has been dictated by Haleigh Vergara, Nurse Practitioner as directed. Dr. Cecelia MD I have performed a history and examination and MDM of this patient, discussed the same with the dictator, and agree with the dictator's assessment and plan as written ,documented as a scribe. Based on total visit time, I have performed more than 50% of the visit. Objective - Vital Signs Vital signs: Vital Signs Temp 98.0 F 11/19/23 01:57 Pulse 69 11/19/23 07:13 Resp 12 11/19/23 08:48 BP 138/88 11/19/23 07:13 Pulse Ox 98 11/19/23 07:13 FiO2 Intake & Output 11/18/23 11/19/23 11/19/23 18:59 06:59 18:59 Intake Total 1250 590 Balance 1250 590 Weight 53.524 kg Intake: Intake, IV Titration 700 Amount Magnesium Sulfate-D5w Pmx 200 1 gm In Dextrose/Water 1 100ml.bag @ 100 mls/hr IVPB Q1H [facility] Rx#: [id number] Sodium Chloride 0.9% 1, 500 000 ml @ 75 mls/hr IV . [id number] [facility] Rx#:[id number] Oral 550 590 Other: Voiding Method Toilet # Voids 1 - Labs CBC & Chem 7: 11/17/23 22:59 11/19/23 06:31 Labs: Abnormal Lab Results - Last 24 Hours (Table) 11/18/23 11/19/23 11/19/23 Range/Units 13:18 06:31 08:54 Sodium 130 L (137-145) mmol/L Potassium 2.7 L* (3.5-5.1) mmol/L Carbon Dioxide 18 L 18.8 L (22-30) mmol/L Anion Gap 12.20 H (4.00-12.00) mmol/L BUN 4 L <3.5 L (7-17) mg/dL Creatinine 0.32 L 0.4 L (0.52-1.04) mg/dL BUN/Creatinine Ratio <8.75 L (12.00-20.00) Ratio Glucose 146 H (74-99) mg/dL POC Glucose (mg/dL) 124 H (70-110) mg/dL Calcium 8.3 L 8.3 L (8.4-10.2) mg/dL Magnesium 1.4 L (1.6-2.3) mg/dL AST 63 H 51 H (14-36) U/L ALT 57 H 55 H (4-34) U/L Total Protein 5.3 L 4.9 L (6.3-8.2) g/dL Albumin 3.2 L 3.4 L (3.5-5.0) g/dL Globulin 1.5 L (1.6-3.3) g/dL U Benzodiazepines Scrn (NotDetected) U Marijuana (THC) Screen (NotDetected) 11/19/23 Range/Units 10:58 Sodium (137-145) mmol/L Potassium (3.5-5.1) mmol/L Carbon Dioxide (22-30) mmol/L Anion Gap (4.00-12.00) mmol/L BUN (7-17) mg/dL Creatinine (0.52-1.04) mg/dL BUN/Creatinine Ratio (12.00-20.00) Ratio Glucose (74-99) mg/dL POC Glucose (mg/dL) (70-110) mg/dL Calcium (8.4-10.2) mg/dL Magnesium (1.6-2.3) mg/dL AST (14-36) U/L ALT (4-34) U/L Total Protein (6.3-8.2) g/dL Albumin (3.5-5.0) g/dL Globulin (1.6-3.3) g/dL U Benzodiazepines Scrn Detected H (NotDetected) U Marijuana (THC) Screen Detected H (NotDetected)
[2023-11-20 07:41] VITALS: BP 128/83; PULSE 76; RESP 17; TEMP 98.2
[2023-11-20 07:51] LABS: African American GFR (CKD) >90 (>60 ml/min/1.73 sqM); Anion Gap 4 mmol/L; Blood Urea Nitrogen 4 mg/dL (7-17); Calcium 8.4 mg/dL (8.4-10.2); Carbon Dioxide 21 mmol/L (22-30); Chloride 111 mmol/L (98-107); Glucose 113 mg/dL (74-99); Magnesium 1.6 mg/dL (1.6-2.3); Non-African American GFR(CKD) >90 (>60 ml/min/1.73 sqM); Potassium 3.7 mmol/L (3.5-5.1); Sodium 136 mmol/L (137-145)
[2023-11-20] MEDS: MAGNESIUM SULFATE-D5W PMX 1 GM in DEXTROSE/WATER 1 100ML.BAG IVPB SCH (11:27)
--- NOTE | 2023-11-23 08:46 | P.DS ---
Providers Date of admission: 11/18/23 01:37 Attending physician: Mary Mejia Consults: 11/19/23 08:59 Consult Physician Urgent Consulting Provider: Jona Deal Consult Reason/Comments: AMS Do you want consulting provider notified?: Yes Primary care physician: Henny Angel Hospital Course: Final Diagnosis Hyponatremia, sodium 129 likely secondary to beer potomania as well as poor oral intake Daily alcohol use with concerns of acute alcohol withdrawal Episode of unresponsiveness with confusion, likely a breakthrough seizure as patient reports has been noncompliant and has not been taking her medications for at least 2 days. Hypomagnesemia, replaced and improved Hypokalemia, replaced and improved Mild calorie malnutrition with a BMI of 23 History of seizures, noncompliant with medications COPD history, not in exacerbation Continued ongoing tobacco use THC use Previous history of myocardial infarction's History of vascular disorder Discharge Disposition Patient is stable for discharge home with overall guarded prognosis. Patient advised to quit alcohol. Keppra dose has been increased. Patient is given a short librium taper. Per the [facility] because of the seizure, to avoid driving for 6 months, avoid heights, avoid swimming unassisted or using heavy machinery and this was notified to the patient. Patient to see her neurologist Dr. Garnica in 1 week and to see her PCP Dr Angel in 1 to 2 days. Repeat blood work 2 to 3 days. Hospital Course This is a very pleasant 57-year-old female who presented to the emergency department with increased weakness and lethargy and family reports patient has not been eating or drinking very well. Patient was found to be hyponatremic with a sodium of 129 with electrolyte abnormalities with significant history of alcohol use with concerns of acute withdrawal. Family was concerned patient has not been eating or drinking very well over the last 2 days and has been more lethargic. Patient has a significant past medical history of daily alcohol use at least 4 large beers daily, continued nicotine and marijuana use along with COPD, liver disease, seizure history, previous myocardial infarction, vascular disorder. Patient is on seizure medications and reports she has been compliant with taking her medications, unsure how reliable. Patient was admitted for hyponatremia with dehydration. Follow-up labs revealed mildly improved sodium of 130 after hydration also noted to have low potassium of 2.7 and magnesium was low. Will replace per protocol will be aggressive and also initiate Librium taper as well as as needed Ativan with concerns of possible acute withdrawal. Initially patient reported she is not able to quit drinking she has tried many times and has been unsuccessful. Patient does not want to go to alcohol rehab but reports she does want to try to quit as she has family and needs to continue supporting them. 11/19/2023 Patient is seen and evaluated in follow-up this morning currently awake, alert and oriented x 3 at her baseline. Apparently per nursing staff and a team was called as patient was found to be unresponsive and not talking. Patient's boyfriend had recently been there with concerns of possible ingestion of some form of medication or drug. Patient refused taking any medications and reports he chronically takes pain medications but has to go to his doctors daily and they administer his medications. Patient admits to smoking marijuana, drinking beer, and continued tobacco use otherwise denies any other illicit drug use. Will repeat a drug screen. Patient has been taking Librium since admission. Initial drug screen was positive for marijuana. Patient is currently afebrile with no reports of chest pain or shortness of breath. Potassium and magnesium were replaced and improved and patient is eating and drinking with no reported nausea or vomiting. Patient is asking when she can go home on exam. Patient also requesting to go outside to smoke 1 cigarette. Neurology was consulted and pending along with CT of the brain. 11/20/2023 Patient is evaluated in follow up today. Sitting up on the edge of bed. Neurology has evaluated the patient and felt the altered mentation and possible seizure like activity was due to patient not taking her medications. Patient had a brain CT done which reveals no acute intracranial abnormality. There is stable mild ventriculomegaly probably due to central cerebral atrophy, mild patchy burden of chronic small vessel ischemic disease. Patient was also given a loading dose of IV keppra and is recommended to discharge on an increased dose of keppra up to 1000 mg BID. Patient does not appear to be going through alcohol withdrawal at this time. Her most recent blood work reveals a sodium level of 136, BUN 4, creatinine 0.36. She is not having any chest pain, shortness of breath, no dizziness or lightheadedness. She is alert x 3. She would like to return home. PT evaluation recommends home with homecare. Patient is counseled on alcohol cessation. Please see medication reconciliation for a list of current medications. Thank you for allowing us to participate in the care of this patient. The impression and plan of care has been dictated by Morena Mcdonald, Nurse Practitioner as directed. Dr. Cecelia MD I have performed a history and physical examination and medical decision making of this patient, discussed the same with the dictator, and agree with the dictators assessment and plan as written, documented as a scribe. Based on total visit time, I have performed more than 50% of this visit. Patient Condition at Discharge: Fair Plan - Discharge Summary New Discharge Prescriptions: New chlordiazePOXIDE HCl [Librium] 25 mg PO DIRECTED 4 Days #6 cap Thiamine [Vitamin B-1] 100 mg PO DAILY@1200 #30 tab levETIRAcetam [Keppra] 1,000 mg PO BID #60 tab Continue Loteprednol Etabonate [Alrex] 1 drop BOTH EYES BID Ketorolac [Toradol] 10 mg PO Q6H PRN PRN Reason: Pain Mirtazapine [Remeron] 15 mg PO HS Atorvastatin [Lipitor] 20 mg PO HS Potassium Chloride 20 meq PO DAILY #60 cap Multivitamins, Thera [Multivitamin (formulary)] 1 tab PO DAILY Fluorometholone 0.1% Ophth Sharmin [Fml] 1 drops BOTH EYES BID Albuterol Inhaler [Ventolin Hfa Inhaler] 2 puff INHALATION RT-Q6H PRN PRN Reason: Cough Nitroglycerin Sl Tabs [Nitrostat] 0.4 mg SL Q5M PRN PRN Reason: Chest Pain Discontinued levETIRAcetam [Keppra] 500 mg PO BID Losartan-Hctz 50-12.5 mg [Hyzaar 50-12.5] 1 tab PO DAILY cloNIDine HCL 0.1 mg PO BID Discharge Medication List Fluorometholone 0.1% Ophth Sharmin [Fml] 1 drops BOTH EYES BID 08/02/23 [History] Loteprednol Etabonate [Alrex] 1 drop BOTH EYES BID 08/02/23 [History] Ketorolac [Toradol] 10 mg PO Q6H PRN 08/23/23 [History] Atorvastatin [Lipitor] 20 mg PO HS 09/06/23 [History] Mirtazapine [Remeron] 15 mg PO HS 09/06/23 [History] Potassium Chloride 20 meq PO DAILY #60 cap 09/07/23 [Rx] Albuterol Inhaler [Ventolin Hfa Inhaler] 2 puff INHALATION RT-Q6H PRN 11/18/23 [History] Multivitamins, Thera [Multivitamin (formulary)] 1 tab PO DAILY 11/18/23 [History] Nitroglycerin Sl Tabs [Nitrostat] 0.4 mg SL Q5M PRN 11/18/23 [History] Thiamine [Vitamin B-1] 100 mg PO DAILY@1200 #30 tab 11/20/23 [Rx] chlordiazePOXIDE HCl [Librium] 25 mg PO DIRECTED 4 Days #6 cap 11/20/23 [Rx] levETIRAcetam [Keppra] 1,000 mg PO BID #60 tab 11/20/23 [Rx] Follow up Appointment(s)/Referral(s): [facility], [NON-STAFF] - 1-2 Days Henny Angel MD [Primary Care Provider] - 1-2 days Javy Garnica MD [REFERRING] - 1 Week Ambulatory/Diagnostic Orders: Basic Metabolic Panel [LAB.AMB] Time Frame: 3 Days, Location: None Selected Patient Instructions/Handouts: Seizure/Epilepsy Discharge Instructions & Follow-Up Activity/Diet/Wound Care/Special Instructions: Take librium 25 mg twice a day for 2 days, than 25 mg daily for 2 days than stop. Do not drink alcohol while taking this medication. This medication is intended to help with alcohol withdrawal symptoms. Recommend to avoid all alcohol. Per the [place] DMV because of the seizure, to avoid driving for 6 months, avoid heights, avoid swimming unassisted or using heavy machinery and this was notified to the patient. Discharge/Stand Alone Forms: AA Meetings [facility], Outpatient Counseling, Who Do I Call?, Help In The Home Discharge Disposition: HOME WITH HOME HEALTH SERVICES
== END 2023-11-20 14:45 | disposition home health service (06) | DRG 426 ==
LOC: EC 21:43 → 4SSUR 11-18 01:37
PROVIDERS: ADMIT Hospitalist; ATTEND Hospitalist
DX: E87.1 Hypo-osmolality and hyponatremia (principal); E44.1 Mild protein-calorie malnutrition; G40.89 Other seizures; J44.9 Chronic obstructive pulmonary disease, unspecified; F10.239 Alcohol dependence with withdrawal, unspecified; E83.42 Hypomagnesemia; E87.6 Hypokalemia; E86.0 Dehydration; R41.3 Other amnesia; D75.89 Other specified diseases of blood and blood-forming organs; T42.6X6A Underdosing of other antiepileptic and sedative-hypnotic drugs, initial encounter; I99.9 Unspecified disorder of circulatory system; F17.210 Nicotine dependence, cigarettes, uncomplicated; R74.01 Elevation of levels of liver transaminase levels; R40.4 Transient alteration of awareness; Y90.0 Blood alcohol level of less than 20 mg/100 ml; Z91.148 Patient's other noncompliance with medication regimen for other reason; Z68.23 Body mass index [BMI] 23.0-23.9, adult; I25.2 Old myocardial infarction; Z85.41 Personal history of malignant neoplasm of cervix uteri; Z89.021 Acquired absence of right finger(s); Z79.82 Long term (current) use of aspirin; Z79.51 Long term (current) use of inhaled steroids; Z79.899 Other long term (current) drug therapy; Z88.0 Allergy status to penicillin; Z88.6 Allergy status to analgesic agent; Z88.8 Allergy status to other drugs, medicaments and biological substances
CPT/HCPCS: 36415; 70450; 80048; 80053; 80143; 80177; 80179; 80306; 80320; 81001; 82607; 82746; 83735; 84100; 84443; 85025; 96361; 96365; 99285

== ENCOUNTER 2023-11-30 06:25 | Emergency (ER) | payer OTHER ==
[2023-11-30 06:32] VITALS: BP 156/107; PULSE 95; TEMP 98
--- NOTE | 2023-11-30 07:03 | ED ---
General Adult HPI - General Chief complaint: Shortness of Breath Stated complaint: Swelling Time Seen by Provider: 11/30/23 06:32 Source: patient, RN notes reviewed Mode of arrival: EMS Limitations: no limitations - History of Present Illness Initial comments: 57-year-old female presents emergency department via EMS for complaint of shortness of breath, leg swelling. Patient states she had swelling in her feet. She states it was there a few days ago went away but came back. She does admit that she is a very heavy smoker, history of COPD denies any prior CHF. Patient denies fevers or chills. Patient has no prior DVT she states she has been rece ntly admitted for hyponatremia. - Related Data Home Medications Medication Instructions Recorded Confirmed Fluorometholone 0.1% Ophth Sharmin 1 drops BOTH EYES BID 08/02/23 11/18/23 [Fml] Loteprednol Etabonate [Alrex] 1 drop BOTH EYES BID 08/02/23 11/18/23 Ketorolac [Toradol] 10 mg PO Q6H PRN 08/23/23 11/18/23 Atorvastatin [Lipitor] 20 mg PO HS 09/06/23 11/18/23 Mirtazapine [Remeron] 15 mg PO HS 09/06/23 11/18/23 Albuterol Inhaler [Ventolin Hfa 2 puff INHALATION RT-Q6H PRN 11/18/23 11/18/23 Inhaler] Multivitamins, Thera [Multivitamin 1 tab PO DAILY 11/18/23 11/18/23 (formulary)] Nitroglycerin Sl Tabs [Nitrostat] 0.4 mg SL Q5M PRN 11/18/23 11/18/23 Previous Rx's Medication Instructions Recorded Potassium Chloride 20 meq PO DAILY #60 cap 09/07/23 Thiamine [Vitamin B-1] 100 mg PO DAILY@1200 #30 tab 11/20/23 chlordiazePOXIDE HCl [Librium] 25 mg PO DIRECTED 4 Days #6 cap 11/20/23 levETIRAcetam [Keppra] 1,000 mg PO BID #60 tab 11/20/23 Allergies Allergy/AdvReac Type Severity Reaction Status Date / Time Penicillins Allergy Rash/Hives/Swelling Verified 11/30/23 06:32 all over body NSAIDS (Non-Steroidal AdvReac Unknown upset Verified 11/30/23 06:32 Anti-Inflamma stomach sertraline HCl [From Zoloft] AdvReac Suicidal/Ag Verified 11/30/23 06:32 ression Review of Systems ROS Statement: Those systems with pertinent positive or pertinent negative responses have been documented in the HPI. ROS Other: All systems not noted in ROS Statement are negative. Past Medical History Past Medical History: COPD, Liver Disease, Myocardial Infarction ([place]), Seizure Disorder, Vascular Disorder Additional Past Medical History / Comment(s): constpation, last bowel movement 4 days ago, feeling bloated,feeling of fullness, and abdominal pain, feels hungry then over eats then vomits to feel better, LAST SEIZURE - JANUARY 2021, "broken heart syndrome"., elevated liver enzymes, "dislocated disks", hx cervical cancer Last Myocardial Infarction Date:: 2019 History of Any Multi-Drug Resistant Organisms: None Reported Past Surgical History: Section, Heart Catheterization, Tubal Ligation Additional Past Surgical History / Comment(s): ORIF rt ankle/hardware later removed, exploratory lap, PAIN CLINIC PROCEDURE, BILAT CATARACTS REMOVED WITH LENS IMPLANTS, procedure to open a vein in left leg-couldn't confirm which leg, partial amputation rt hand middle finger, "procedure to remove cervical cancer" Past Anesthesia/Blood Transfusion Reactions: No Reported Reaction Past Psychological History: Anxiety, Bipolar, Depression, PTSD Smoking Status: Current every day smoker Past Alcohol Use History: Abuse, Daily, Heavy Past Drug Use History: Marijuana - Past Family History Father Family Medical History: Cancer, Prostate Disorder, Pulmonary Embolus Sister(s) Family Medical History: Cancer Brother(s) Family Medical History: Cancer Additional Family Medical History / Comment(s): colon and bladder General Exam Limitations: no limitations General appearance: alert, in no apparent distress Head exam: Present: atraumatic, normocephalic, normal inspection Neck exam: Present: normal inspection. Absent: tenderness, meningismus, lymphadenopathy Respiratory exam: Present: wheezes. Absent: normal lung sounds bilaterally, respiratory distress, rales, rhonchi, stridor Cardiovascular Exam: Present: regular rate, normal rhythm, normal heart sounds. Absent: systolic murmur, diastolic murmur, rubs, gallop, clicks GI/Abdominal exam: Present: soft, normal bowel sounds. Absent: distended, tenderness, guarding, rebound, rigid Extremities exam: Present: pedal edema Neurological exam: Present: alert, oriented X3 Course Vital Signs 11/30/23 06:29 Temperature 98 F Pulse Rate 95 Respiratory 24 Rate Blood Pressure 156/107 O2 Sat by Pulse 99 Oximetry Medical Decision Making - Medical Decision Making Was pt. sent in by a medical professional or institution (, PA, MOLDER MACHINE TENDER, urgent care, hospital, or skilled nursing...) When possible be specific @ -No Did you speak to anyone other than the patient for history (EMS, parent, family, police, friend...)? What history was obtained from this source @ -No Did you review nursing and triage notes (agree or disagree)? Why? @ -I reviewed and agree with nursing and triage notes Were old charts reviewed (outside hosp., previous admission, EMS record, old EKG, old radiological studies, urgent care reports/EKG's, skilled nursing records)? Report findings @ -No old charts were reviewed Differential Diagnosis (chest pain, altered mental status, abdominal pain women, abdominal pain men, vaginal bleeding, weakness, fever, dyspnea, syncope, headache, dizziness, GI bleed, back pain, seizure, CVA, palpatations, mental health, musculoskeletal)? @ -Differential Dyspnea: Coronary syndrome, arrhythmia, tamponade, asthma, COPD, pulmonary embolism, pneumonia, pneumothorax, pulmonary effusion, anaphylaxis, diabetic ketoacidosis, flailed chest, pulmonary contusion, diaphragmatic rupture, anemia, neuromuscular, this is not meant to be an all-inclusive list. EKG interpreted by me (3pts min.). @ -As above X-rays interpreted by me (1pt min.). @ -[Chest ray shows COPD changes CT interpreted by me (1pt min.). @ -None done U/S interpreted by me (1pt. min.). @ -None done What testing was considered but not performed or refused? (CT, X-rays, U/S, labs)? Why? @ -None What meds were considered but not given or refused? Why? @ -None Did you discuss the management of the patient with other professionals (professionals i.e. , PA, MOLDER MACHINE TENDER, lab, RT, psych nurse, director social, florist, teacher, privacy officer, correctional casework specialist)? Give summary @ -No Was smoking cessation discussed for >3mins.? @ -I discussed smoking cessation for greater than 3 minutes. The risk of smoking were discussed with the patient including but not limited to risks of ca ncer, stroke, coronary artery disease and COPD. Also discussed with patient were multiple methods of quitting smoking. Lastly we discussed the financial cost of smoking. Was critical care preformed (if so, how long)? @ -No Were there social determinants of health that impacted care today? How? (Ho melessness, low income, unemployed, alcoholism, drug addiction, transportation, low edu. Level, literacy, decrease access to med. care, penitentiary, rehab)? @ -No Was there de-escalation of care discussed even if they declined (Discuss DNR or withdrawal of care, Hospice)? DNR status @ -No What co-morbidities impacted this encounter? (DM, HTN, Smoking, COPD, CAD, Cancer, CVA, ARF, Chemo, Hep., AIDS, mental health diagnosis, sleep apnea, morbid obesity)? @ -COPD, alcohol abuse, liver disease Was patient admitted / discharged? Hospital course, mention meds given and route, prescriptions, significant lab abnormalities, going to OR and other pertinent info. @ -Discharge patient presented for bilateral foot swelling. Patient's BNP is less than 300, chest x-ray shows no acute changes other than chronic COPD changes. This more likely related to her COPD, liver disease. Patient will follow-up with PCP as laboratory studies are unremarkable and she has no signs distress. Undiagnosed new problem with uncertain prognosis? @ -No Drug Therapy requiring intensive monitoring for toxicity (Heparin, Nitro, Insulin, Cardizem)? @ -No Were any procedures done? @ -No Diagnosis/symptom? @ -Foot edema Acute, or Chronic, or Acute on Chronic? @ -Acute Uncomplicated (without systemic symptoms) or Complicated (systemic symptoms)? @ -Uncomplicated Side effects of treatment? @ -No Exacerbation, Progression, or Severe Exacerbation? @ -No Poses a threat to life or bodily function? How? (Chest pain, [place], [place], pneumonia, PE, COPD, DKA, ARF, appy, cholecystitis, CVA, Diverticulitis, Homicidal, Suicidal, threat to staff... and all critical care pts) @ -No - Lab Data Result diagrams: 11/30/23 06:42 11/30/23 06:42 Lab Results 11/30/23 11/30/23 11/30/23 Range/Units 06:42 06:42 06:42 WBC 8.0 (3.8-10.6) k/uL RBC 3.44 L (3.80-5.40) m/uL Hgb 11.8 (11.4-16.0) gm/dL Hct 36.1 (34.0-46.0) % MCV 104.8 H (80.0-100.0) fL MCH 34.4 (25.0-35.0) pg MCHC 32.8 (31.0-37.0) g/dL RDW 14.8 (11.5-15.5) % Plt Count 381 (150-450) k/uL MPV 8.7 Neutrophils % 66 % Lymphocytes % 22 % Monocytes % 8 % Eosinophils % 1 % Basophils % 0 % Neutrophils # 5.3 (1.3-7.7) k/uL Lymphocytes # 1.7 (1.0-4.8) k/uL Monocytes # 0.7 (0-1.0) k/uL Eosinophils # 0.1 (0-0.7) k/uL Basophils # 0.0 (0-0.2) k/uL Macrocytosis Moderate PT 9.3 L (10.0-12.5) sec INR 0.8 (<1.2) APTT 23.3 (22.0-30.0) sec Sodium 139 (137-145) mmol/L Potassium 4.2 (3.5-5.1) mmol/L Chloride 110 H (98-107) mmol/L Carbon Dioxide 23 (22-30) mmol/L Anion Gap 6 mmol/L BUN 7 (7-17) mg/dL Creatinine 0.36 L (0.52-1.04) mg/dL Est GFR (CKD-EPI)AfAm >90 (>60 ml/min/1.73 sqM) Est GFR (CKD-EPI)NonAf >90 (>60 ml/min/1.73 sqM) Glucose 94 (74-99) mg/dL Calcium 9.5 (8.4-10.2) mg/dL Magnesium 1.7 (1.6-2.3) mg/dL Total Bilirubin 0.3 (0.2-1.3) mg/dL AST 39 H (14-36) U/L ALT 25 (4-34) U/L Alkaline Phosphatase 90 (38-126) U/L Troponin I (0.000-0.034) ng/mL NT-Pro-B Natriuret Pep 259 pg/mL Total Protein 6.5 (6.3-8.2) g/dL Albumin 4.0 (3.5-5.0) g/dL 11/30/23 Range/Units 06:42 WBC (3.8-10.6) k/uL RBC (3.80-5.40) m/uL Hgb (11.4-16.0) gm/dL Hct (34.0-46.0) % MCV (80.0-100.0) fL MCH (25.0-35.0) pg MCHC (31.0-37.0) g/dL RDW (11.5-15.5) % Plt Count (150-450) k/uL MPV Neutrophils % % Lymphocytes % % Monocytes % % Eosinophils % % Basophils % % Neutrophils # (1.3-7.7) k/uL Lymphocytes # (1.0-4.8) k/uL Monocytes # (0-1.0) k/uL Eosinophils # (0-0.7) k/uL Basophils # (0-0.2) k/uL Macrocytosis PT (10.0-12.5) sec INR (<1.2) APTT (22.0-30.0) sec Sodium (137-145) mmol/L Potassium (3.5-5.1) mmol/L Chloride (98-107) mmol/L Carbon Dioxide (22-30) mmol/L Anion Gap mmol/L BUN (7-17) mg/dL Creatinine (0.52-1.04) mg/dL Est GFR (CKD-EPI)AfAm (>60 ml/min/1.73 sqM) Est GFR (CKD-EPI)NonAf (>60 ml/min/1.73 sqM) Glucose (74-99) mg/dL Calcium (8.4-10.2) mg/dL Magnesium (1.6-2.3) mg/dL Total Bilirubin (0.2-1.3) mg/dL AST (14-36) U/L ALT (4-34) U/L Alkaline Phosphatase (38-126) U/L Troponin I <0.012 (0.000-0.034) ng/mL NT-Pro-B Natriuret Pep pg/mL Total Protein (6.3-8.2) g/dL Albumin (3.5-5.0) g/dL Disposition Clinical Impression: Edema of foot, COPD (chronic obstructive pulmonary disease) Disposition: HOME SELF-CARE Condition: Stable Instructions (If sedation given, give patient instructions): Edema (ED) Additional Instructions: Please return to the Emergency Department if symptoms worsen or any other concerns. Is patient prescribed a controlled substance at d/c from ED?: No Referrals: Henny Angel MD [Primary Care Provider] - 1-2 days
[2023-11-30 07:32] LABS: ALT 25 U/L (4-34); AST 39 U/L (14-36); African American GFR (CKD) >90 (>60 ml/min/1.73 sqM); Alkaline Phosphatase 90 U/L (38-126); Anion Gap 6 mmol/L; Basophils % (A) 0 %; Blood Urea Nitrogen 7 mg/dL (7-17); Calcium 9.5 mg/dL (8.4-10.2); Carbon Dioxide 23 mmol/L (22-30); Chloride 110 mmol/L (98-107); Eosinophils # (A) 0.1 k/uL (0-0.7); Eosinophils % (A) 1 %; Glucose 94 mg/dL (74-99); HCT 36.1 % (34.0-46.0); HGB 11.8 gm/dL (11.4-16.0); Lymphocytes # (A) 1.7 k/uL (1.0-4.8); Lymphocytes % (A) 22 %; MCH 34.4 pg (25.0-35.0); MCHC 32.8 g/dL (31.0-37.0); MCV 104.8 fL (80.0-100.0); Macrocytosis Moderate; Magnesium 1.7 mg/dL (1.6-2.3); Mean Platelet Volume 8.7; Monocytes # (A) 0.7 k/uL (0-1.0); Monocytes % (A) 8 %; Neutrophils # (A) 5.3 k/uL (1.3-7.7); Neutrophils % (A) 66 %; Non-African American GFR(CKD) >90 (>60 ml/min/1.73 sqM); Platelet Count 381 k/uL (150-450); Potassium 4.2 mmol/L (3.5-5.1); RBC 3.44 m/uL (3.80-5.40); RDW 14.8 % (11.5-15.5); Sodium 139 mmol/L (137-145); Total Bilirubin 0.3 mg/dL (0.2-1.3); Total Protein 6.5 g/dL (6.3-8.2)
[2023-11-30 07:36] LABS: INR 0.8 (<1.2); Partial Thromboplastin Time 23.3 sec (22.0-30.0); Prothrombin Time 9.3 sec (10.0-12.5)
[2023-11-30 07:40] LABS: NT-Pro-B-Type Natriuretic Pept 259 pg/mL
[2023-11-30 08:33] VITALS: RESP 20
--- NOTE | 2023-11-30 08:33 | XR ---
EXAMINATION TYPE: XR chest 2V DATE OF EXAM: 11/30/2023 COMPARISON: 09/05/2023 INDICATION: Chest pain TECHNIQUE: Frontal and lateral views of the chest are obtained. FINDINGS: The heart size is normal. The pulmonary vasculature is normal. The lungs are clear. IMPRESSION: 1. No acute pulmonary process.
== END 2023-11-30 08:35 | disposition home or self-care (01) ==
LOC: EC 06:25
DX: R60.0 Localized edema (principal); J44.9 Chronic obstructive pulmonary disease, unspecified; K76.9 Liver disease, unspecified; F10.10 Alcohol abuse, uncomplicated; F17.200 Nicotine dependence, unspecified, uncomplicated; Z79.899 Other long term (current) drug therapy; Z88.0 Allergy status to penicillin; Z88.6 Allergy status to analgesic agent; Z88.8 Allergy status to other drugs, medicaments and biological substances
CPT/HCPCS: 36415; 71046; 80053; 83735; 83880; 84484; 85025; 85610; 85730; 93005; 99285

== ENCOUNTER 2023-12-01 22:42 | Emergency (ER) | payer OTHER ==
[2023-12-01 23:30] VITALS: RESP 16; TEMP 97.8
[2023-12-02 00:20] LABS: Basophils # (A) 0.1 k/uL (0-0.2); Basophils % (A) 1 %; Eosinophils # (A) 0.1 k/uL (0-0.7); Eosinophils % (A) 1 %; HGB 11.7 gm/dL (11.4-16.0); Lymphocytes # (A) 1.8 k/uL (1.0-4.8); Lymphocytes % (A) 23 %; MCH 35.9 pg (25.0-35.0); MCHC 33.4 g/dL (31.0-37.0); MCV 107.4 fL (80.0-100.0); Macrocytosis Moderate; Monocytes # (A) 0.6 k/uL (0-1.0); Monocytes % (A) 8 %; Neutrophils # (A) 4.9 k/uL (1.3-7.7); Neutrophils % (A) 65 %; Platelet Count 371 k/uL (150-450); RBC 3.25 m/uL (3.80-5.40); RDW 14.8 % (11.5-15.5); WBC 7.7 k/uL (3.8-10.6)
[2023-12-02 00:35] LABS: INR 0.8 (<1.2); Partial Thromboplastin Time 22.2 sec (22.0-30.0); Prothrombin Time 9.5 sec (10.0-12.5)
--- NOTE | 2023-12-02 00:36 | ED ---
General Adult HPI - General Chief complaint: Extremity Problem,Nontraumatic Stated complaint: Leg swelling Time Seen by Provider: 12/01/23 23:58 Source: patient, EMS Mode of arrival: EMS Limitations: no limitations - History of Present Illness Initial comments: Dictation was produced using [employer] dictation software. please excuse any grammatical, word or spelling errors. Chief Complaint: 57-year-old homeless female presents to the ER for chest pain, abdominal pain History of Present Illness: Patient is a 57-year-old female presents to the emergency department from snf. Patient complaining of bilateral lower extremity edema. Patient was here for this recently. States that she was hospitalized for several days. Patient also complaining of some sharp chest pain that feels like a pinching sensation to her lower chest. She also complains of abdominal pain. Denies any nausea vomiting. She is tolerating oral intake. The ROS documented in this emergency department record has been reviewed and confirmed by me. Those systems with pertinent positive or negative responses have been documented in the HPI. All other systems are other negative and/or noncontributory. - Related Data Home Medications Medication Instructions Recorded Confirmed Fluorometholone 0.1% Ophth Sharmin 1 drops BOTH EYES BID 08/02/23 11/18/23 [Fml] Loteprednol Etabonate [Alrex] 1 drop BOTH EYES BID 08/02/23 11/18/23 Ketorolac [Toradol] 10 mg PO Q6H PRN 08/23/23 11/18/23 Atorvastatin [Lipitor] 20 mg PO HS 09/06/23 11/18/23 Mirtazapine [Remeron] 15 mg PO HS 09/06/23 11/18/23 Albuterol Inhaler [Ventolin Hfa 2 puff INHALATION RT-Q6H PRN 11/18/23 11/18/23 Inhaler] Multivitamins, Thera [Multivitamin 1 tab PO DAILY 11/18/23 11/18/23 (formulary)] Nitroglycerin Sl Tabs [Nitrostat] 0.4 mg SL Q5M PRN 11/18/23 11/18/23 Previous Rx's Medication Instructions Recorded Potassium Chloride 20 meq PO DAILY #60 cap 09/07/23 Thiamine [Vitamin B-1] 100 mg PO DAILY@1200 #30 tab 11/20/23 chlordiazePOXIDE HCl [Librium] 25 mg PO DIRECTED 4 Days #6 cap 11/20/23 levETIRAcetam [Keppra] 1,000 mg PO BID #60 tab 11/20/23 Allergies Allergy/AdvReac Type Severity Reaction Status Date / Time Penicillins Allergy Rash/Hives/Swelling Verified 12/01/23 23:27 all over body NSAIDS (Non-Steroidal AdvReac Unknown upset Verified 12/01/23 23:27 Anti-Inflamma stomach sertraline HCl [From Zoloft] AdvReac Suicidal/Ag Verified 12/01/23 23:27 ression Review of Systems ROS Statement: Those systems with pertinent positive or pertinent negative responses have been documented in the HPI. ROS Other: All systems not noted in ROS Statement are negative. Past Medical History Past Medical History: COPD, Liver Disease, Myocardial Infarction (LA), Seizure Disorder, Vascular Disorder Additional Past Medical History / Comment(s): constpation, last bowel movement 4 days ago, feeling bloated,feeling of fullness, and abdominal pain, feels hungry then over eats then vomits to feel better, LAST SEIZURE - JANUARY 2021, "broken heart syndrome"., elevated liver enzymes, "dislocated disks", hx cervical cancer Last Myocardial Infarction Date:: 2019 History of Any Multi-Drug Resistant Organisms: None Reported Past Surgical History: Section, Heart Catheterization, Tubal Ligation Additional Past Surgical History / Comment(s): ORIF rt ankle/hardware later removed, exploratory lap, PAIN CLINIC PROCEDURE, BILAT CATARACTS REMOVED WITH LENS IMPLANTS, procedure to open a vein in left leg-couldn't confirm which leg, partial amputation rt hand middle finger, "procedure to remove cervical cancer" Past Anesthesia/Blood Transfusion Reactions: No Reported Reaction Past Psychological History: Anxiety, Bipolar, Depression, PTSD Smoking Status: Current every day smoker Past Alcohol Use History: Abuse, Daily, Heavy Past Drug Use History: Marijuana - Past Family History Father Family Medical History: Cancer, Prostate Disorder, Pulmonary Embolus Sister(s) Family Medical History: Cancer Brother(s) Family Medical History: Cancer Additional Family Medical History / Comment(s): colon and bladder General Exam - General Exam Comments Initial Comments: PHYSICAL EXAM: General Impression: Alert and oriented x3, not in acute distress HEENT: Normocephalic atraumatic, extra-ocular movements intact, pupils equal and reactive to light bilaterally, mucous membranes moist. Cardiovascular: Heart regular rate and rhythm Chest: Able to complete full sentences, no retractions, no tachypnea Abdomen: abdomen soft, non-tender, non-distended, no organomegaly Musculoskeletal: Pulses present and equal in all extremities, no peripheral edema Motor: no focal deficits noted Neurological: CN II-XII grossly intact, no focal motor or sensory deficits noted Skin: Intact with no visualized rashes Psych: Normal affect and mood Limitations: no limitations Course Vital Signs 12/01/23 12/02/23 12/02/23 23:27 00:00 01:00 Temperature 97.8 F Pulse Rate 86 98 90 Respiratory 16 16 16 Rate Blood Pressure 131/79 112/80 100/64 O2 Sat by Pulse 98 98 98 Oximetry EKG Findings - EKG Comments: EKG Findings:: My EKG interpretation: Ventricular rate 85, sinus rhythm,. 179, cures 77, QTc 420. No WA prolongation, no QTC prolongation, no ST or T-wave changes noted. Overall, this EKG is unremarkable Medical Decision Making - Medical Decision Making Was pt. sent in by a medical professional or institution (, PA, ROOM SERVICE SUPERVISOR, urgent care, hospital, or prison...) When possible be specific @ -No Did you speak to anyone other than the patient for history (EMS, parent, family, police, friend...)? What history was obtained from this source @ -No Did you review nursing and triage notes (agree or disagree)? Why? @ -I reviewed and agree with nursing and triage notes Were old charts reviewed (outside hosp., previous admission, EMS record, old EKG, old radiological studies, urgent care reports/EKG's, prison records)? Report findings @ -No old charts were reviewed Differential Diagnosis (chest pain, altered mental status, abdominal pain women, abdominal pain men, vaginal bleeding, musculoskeletal, weakness, fever, dyspnea, syncope, headache, dizziness, GI bleed, back pain, seizure, CVA, palpatations, mental health)? @ -Differential Dyspnea: Coronary syndrome, arrhythmia, tamponade, asthma, COPD, pulmonary embolism, pneumonia, pneumothorax, pulmonary effusion, anaphylaxis, diabetic ketoacidosis, flailed chest, pulmonary contusion, diaphragmatic rupture, anemia, neuromuscular, this is not meant to be an all-inclusive list. EKG interpreted by me (3pts min.). @ -As above X-rays interpreted by me (1pt min.). @ -Chest x-ray shows no acute processes CT interpreted by me (1pt min.). @ -None done U/S interpreted by me (1pt. min.). @ -None done What testing was considered but not performed or refused? (CT, X-rays, U/S, labs)? Why? @ -None What meds were considered but not given or refused? Why? @ -None Did you discuss the management of the patient with other professionals (professionals i.e. DrRenetta, PA, ROOM SERVICE SUPERVISOR, lab, RT, psych nurse, social media editor, fabrication lead, teacher, fare enforcement officer, bilingual case manager)? Give summary @ -No Was smoking cessation discussed for >3mins.? @ -No Was critical care preformed (if so, how long)? @ -No Were there social determinants of health that impacted care today? How? (Homelessness, low income, unemployed, alcoholism, drug addiction, transportation, low edu. Level, literacy, decrease access to med. care, fdc, rehab)? @ -No Was there de-escalation of care discussed even if they declined (Discuss DNR or withdrawal of care, Hospice)? DNR status @ -No What co-morbidities impacted this encounter? (DM, HTN, Smoking, COPD, CAD, Cancer, CVA, ARF, Chemo, Hep., AIDS, mental health diagnosis, sleep apnea, morbid obesity)? @ -None Was patient admitted / discharged? Hospital course, mention meds given and route, prescriptions, significant lab abnormalities, going to OR and other pertinent info. @ -57-year-old homeless female presents to the ER for leg edema, chest pain shortness of breath. Her chest pain is atypical. She is well-appearing with stable vital signs. Patient has pitting edema. Labs are unremarkable. BNP and troponin are negative. Patient discharged. Undiagnosed new problem with uncertain prognosis? @ -No Drug Therapy requiring intensive monitoring for toxicity (Heparin, Nitro, Insulin, Cardizem)? @ -No Were any procedures done? @ -No Diagnosis/symptom? Acute, or Chronic, or Acute on Chronic? Uncomplicated (without systemic symptoms) or Complicated (systemic symptoms)? @ -Leg edema Side effects of treatment? @ -No Exacerbation, Progression, or Severe Exacerbation? @ -No Poses a threat to life or bodily function? How? (Chest pain, USA, LA, pneumonia, PE, COPD, DKA, ARF, appy, cholecystitis, CVA, Diverticulitis, Homicidal, Suicidal, threat to staff... and all critical care pts) @ -No - Lab Data Result diagrams: 12/02/23 00:11 12/02/23 00:11 Lab Results 12/02/23 12/02/23 12/02/23 Range/Units 00:11 00:11 00:11 WBC 7.7 (3.8-10.6) k/uL RBC 3.25 L (3.80-5.40) m/uL Hgb 11.7 (11.4-16.0) gm/dL Hct 35.0 (34.0-46.0) % MCV 107.4 H (80.0-100.0) fL MCH 35.9 H (25.0-35.0) pg MCHC 33.4 (31.0-37.0) g/dL RDW 14.8 (11.5-15.5) % Plt Count 371 (150-450) k/uL MPV 8.0 Neutrophils % 65 % Lymphocytes % 23 % Monocytes % 8 % Eosinophils % 1 % Basophils % 1 % Neutrophils # 4.9 (1.3-7.7) k/uL Lymphocytes # 1.8 (1.0-4.8) k/uL Monocytes # 0.6 (0-1.0) k/uL Eosinophils # 0.1 (0-0.7) k/uL Basophils # 0.1 (0-0.2) k/uL Macrocytosis Moderate PT 9.5 L (10.0-12.5) sec INR 0.8 (<1.2) APTT 22.2 (22.0-30.0) sec Sodium 138 (137-145) mmol/L Potassium 3.6 (3.5-5.1) mmol/L Chloride 109 H (98-107) mmol/L Carbon Dioxide 20 L (22-30) mmol/L Anion Gap 9 mmol/L BUN 8 (7-17) mg/dL Creatinine 0.38 L (0.52-1.04) mg/dL Est GFR (CKD-EPI)AfAm >90 (>60 ml/min/1.73 sqM) Est GFR (CKD-EPI)NonAf >90 (>60 ml/min/1.73 sqM) Glucose 79 (74-99) mg/dL Calcium 8.7 (8.4-10.2) mg/dL Magnesium 1.9 (1.6-2.3) mg/dL Total Bilirubin 0.3 (0.2-1.3) mg/dL AST 32 (14-36) U/L ALT 22 (4-34) U/L Alkaline Phosphatase 88 (38-126) U/L Troponin I (0.000-0.034) ng/mL NT-Pro-B Natriuret Pep 425 pg/mL Total Protein 6.3 (6.3-8.2) g/dL Albumin 3.9 (3.5-5.0) g/dL 12/02/23 Range/Units 00:11 WBC (3.8-10.6) k/uL RBC (3.80-5.40) m/uL Hgb (11.4-16.0) gm/dL Hct (34.0-46.0) % MCV (80.0-100.0) fL MCH (25.0-35.0) pg MCHC (31.0-37.0) g/dL RDW (11.5-15.5) % Plt Count (150-450) k/uL MPV Neutrophils % % Lymphocytes % % Monocytes % % Eosinophils % % Basophils % % Neutrophils # (1.3-7.7) k/uL Lymphocytes # (1.0-4.8) k/uL Monocytes # (0-1.0) k/uL Eosinophils # (0-0.7) k/uL Basophils # (0-0.2) k/uL Macrocytosis PT (10.0-12.5) sec INR (<1.2) APTT (22.0-30.0) sec Sodium (137-145) mmol/L Potassium (3.5-5.1) mmol/L Chloride (98-107) mmol/L Carbon Dioxide (22-30) mmol/L Anion Gap mmol/L BUN (7-17) mg/dL Creatinine (0.52-1.04) mg/dL Est GFR (CKD-EPI)AfAm (>60 ml/min/1.73 sqM) Est GFR (CKD-EPI)NonAf (>60 ml/min/1.73 sqM) Glucose (74-99) mg/dL Calcium (8.4-10.2) mg/dL Magnesium (1.6-2.3) mg/dL Total Bilirubin (0.2-1.3) mg/dL AST (14-36) U/L ALT (4-34) U/L Alkaline Phosphatase (38-126) U/L Troponin I <0.012 (0.000-0.034) ng/mL NT-Pro-B Natriuret Pep pg/mL Total Protein (6.3-8.2) g/dL Albumin (3.5-5.0) g/dL Disposition Clinical Impression: Leg edema Disposition: HOME SELF-CARE Condition: Good Instructions (If sedation given, give patient instructions): Leg Edema (ED) Is patient prescribed a controlled substance at d/c from ED?: No Referrals: Henny Angel MD [Primary Care Provider] - 1-2 days Time of Disposition: 02:51
[2023-12-02 00:49] LABS: ALT 22 U/L (4-34); AST 32 U/L (14-36); African American GFR (CKD) >90 (>60 ml/min/1.73 sqM); Albumin 3.9 g/dL (3.5-5.0); Alkaline Phosphatase 88 U/L (38-126); Anion Gap 9 mmol/L; Blood Urea Nitrogen 8 mg/dL (7-17); Calcium 8.7 mg/dL (8.4-10.2); Carbon Dioxide 20 mmol/L (22-30); Chloride 109 mmol/L (98-107); Glucose 79 mg/dL (74-99); Magnesium 1.9 mg/dL (1.6-2.3); Non-African American GFR(CKD) >90 (>60 ml/min/1.73 sqM); Potassium 3.6 mmol/L (3.5-5.1); Sodium 138 mmol/L (137-145); Total Bilirubin 0.3 mg/dL (0.2-1.3); Total Protein 6.3 g/dL (6.3-8.2)
[2023-12-02 00:56] LABS: NT-Pro-B-Type Natriuretic Pept 425 pg/mL
[2023-12-02 02:30] VITALS: BP 100/64; PULSE 90
--- NOTE | 2023-12-02 02:47 | XR ---
EXAM: XR Chest, 2 Views CLINICAL HISTORY: ITS.REASON XR Reason: Chest Pain TECHNIQUE: Frontal and lateral views of the chest. COMPARISON: No relevant prior studies available. FINDINGS: Lungs: Unremarkable. No consolidation. Pleural space: Unremarkable. No pneumothorax. Heart: Unremarkable. No cardiomegaly. Mediastinum: Unremarkable. Normal mediastinal contour. Bones/joints: Unremarkable. No acute fracture. IMPRESSION: No consolidation.
== END 2023-12-02 03:02 | disposition home or self-care (01) ==
LOC: EC 22:42 → SUPCPDRO 22:42 → EC 12-02 03:02
DX: R60.0 Localized edema (principal); F17.200 Nicotine dependence, unspecified, uncomplicated; F12.90 Cannabis use, unspecified, uncomplicated; Z88.0 Allergy status to penicillin; Z88.6 Allergy status to analgesic agent; Z88.8 Allergy status to other drugs, medicaments and biological substances
CPT/HCPCS: 36415; 71046; 80053; 83735; 83880; 84484; 85025; 85610; 85730; 93005; 99284

== ENCOUNTER 2023-12-03 22:51 | Inpatient (IN) | payer OTHER ==
--- NOTE | 2023-12-03 23:04 | ED ---
SOB HPI - General Chief Complaint: Shortness of Breath Stated Complaint: SOB Time Seen by Provider: 12/03/23 23:02 Source: patient, EMS, RN notes reviewed, old records reviewed Mode of arrival: EMS Limitations: no limitations - History of Present Illness Initial Comments: This is a 57-year-old female to the ER today. This patient presents today for evaluation of a not feeling well. No significant current chest pain but had persistent and episodic chest pain here in the ER. No fevers no travel history no sick contacts also mainly complaining of left lower extremity pain swelling edema and redness of the left lower extremity which is worse than baseline. Patient states she is generally not feeling well MD Complaint: shortness of breath, cough, chest pain, anxiety -: days(s) Severity: moderate Severity scale (1-10): 6 Quality: sharp Consistency: constant Improves With: nothing Worsens With: nothing Known History Of: COPD, congestive heart failure Context: recent URI, anxiety, recent illness Associated Symptoms: denies other symptoms - Related Data Home Medications Medication Instructions Recorded Confirmed Fluorometholone 0.1% Ophth Sharmin 1 drops BOTH EYES BID 08/02/23 12/04/23 [Fml] Loteprednol Etabonate [Alrex] 1 drop BOTH EYES BID 08/02/23 12/04/23 Ketorolac [Toradol] 10 mg PO Q6H PRN 08/23/23 12/04/23 Atorvastatin [Lipitor] 20 mg PO HS 09/06/23 12/04/23 Mirtazapine [Remeron] 15 mg PO HS 09/06/23 12/04/23 Albuterol Inhaler [Ventolin Hfa 2 puff INHALATION RT-Q6H PRN 11/18/23 12/04/23 Inhaler] Multivitamins, Thera [Multivitamin 1 tab PO DAILY 11/18/23 12/04/23 (formulary)] Nitroglycerin Sl Tabs [Nitrostat] 0.4 mg SL Q5M PRN 11/18/23 12/04/23 Previous Rx's Medication Instructions Recorded Potassium Chloride 20 meq PO DAILY #60 cap 09/07/23 Thiamine [Vitamin B-1] 100 mg PO DAILY@1200 #30 tab 11/20/23 levETIRAcetam [Keppra] 1,000 mg PO BID #60 tab 11/20/23 Allergies Allergy/AdvReac Type Severity Reaction Status Date / Time Penicillins Allergy Rash/Hives/Swelling Verified 12/04/23 12:27 all over body NSAIDS (Non-Steroidal AdvReac Unknown upset Verified 12/04/23 12:27 Anti-Inflamma stomach sertraline HCl [From Zoloft] AdvReac Suicidal/Ag Verified 12/04/23 12:27 ression Review of Systems ROS Statement: Those systems with pertinent positive or pertinent negative responses have been documented in the HPI. ROS Other: All systems not noted in ROS Statement are negative. Past Medical History Past Medical History: COPD, Liver Disease, Myocardial Infarction ([place]), Seizure Disorder, Vascular Disorder Additional Past Medical History / Comment(s): constpation, last bowel movement 4 days ago, feeling bloated,feeling of fullness, and abdominal pain, feels hungry then over eats then vomits to feel better, LAST SEIZURE - JANUARY 2021, "broken heart syndrome"., elevated liver enzymes, "dislocated disks", hx cervical cancer Last Myocardial Infarction Date:: 2019 History of Any Multi-Drug Resistant Organisms: None Reported Past Surgical History: Section, Heart Catheterization, Tubal Ligation Additional Past Surgical History / Comment(s): ORIF rt ankle/hardware later removed, exploratory lap, PAIN CLINIC PROCEDURE, BILAT CATARACTS REMOVED WITH LENS IMPLANTS, procedure to open a vein in left leg-couldn't confirm which leg, partial amputation rt hand middle finger, "procedure to remove cervical cancer" Past Anesthesia/Blood Transfusion Reactions: No Reported Reaction Past Psychological History: Anxiety, Bipolar, Depression, PTSD Smoking Status: Current every day smoker Past Alcohol Use History: Abuse, Daily, Heavy Past Drug Use History: Marijuana - Past Family History Father Family Medical History: Cancer, Prostate Disorder, Pulmonary Embolus Sister(s) Family Medical History: Cancer Brother(s) Family Medical History: Cancer Additional Family Medical History / Comment(s): colon and bladder General Exam General appearance: alert, in no apparent distress Head exam: Present: atraumatic, normocephalic, normal inspection Eye exam: Present: normal appearance, PERRL, EOMI. Absent: scleral icterus, conjunctival injection, periorbital swelling ENT exam: Present: normal exam, mucous membranes moist Neck exam: Present: normal inspection. Absent: tenderness, meningismus, lymphadenopathy Respiratory exam: Present: normal lung sounds bilaterally. Absent: respiratory distress, wheezes, rales, rhonchi, stridor Cardiovascular Exam: Present: regular rate, normal rhythm, normal heart sounds. Absent: systolic murmur, diastolic murmur, rubs, gallop, clicks GI/Abdominal exam: Present: soft, normal bowel sounds. Absent: distended, tenderness, guarding, rebound, rigid Extremities exam: Present: normal inspection, full ROM, normal capillary refill. Absent: tenderness, pedal edema, joint swelling, calf tenderness Back exam: Present: normal inspection Neurological exam: Present: alert, oriented X3, CN II-XII intact Psychiatric exam: Present: normal affect, normal mood Skin exam: Present: warm, dry, intact, normal color. Absent: rash Course Vital Signs 12/03/23 12/03/23 12/03/23 22:53 23:30 23:49 Temperature 98.3 F Pulse Rate 99 87 85 Pulse Rate [ Pulse Oximetery ] Respiratory 18 18 Rate Blood Pressure 106/75 Blood Pressure [Left Arm] Blood Pressure [Right Arm] O2 Sat by Pulse 97 Oximetry 12/04/23 12/04/23 12/04/23 00:08 01:00 03:23 Temperature Pulse Rate 112 H 108 H 104 H Pulse Rate [ Pulse Oximetery ] Respiratory 19 18 Rate Blood Pressure 130/85 110/69 Blood Pressure [Left Arm] Blood Pressure [Right Arm] O2 Sat by Pulse 96 95 Oximetry 12/04/23 12/04/23 12/04/23 03:33 04:14 06:00 Temperature Pulse Rate 105 H 105 H 94 Pulse Rate [ Pulse Oximetery ] Respiratory 18 17 Rate Blood Pressure 129/77 117/69 Blood Pressure [Left Arm] Blood Pressure [Right Arm] O2 Sat by Pulse 96 97 Oximetry 12/04/23 12/04/23 12/04/23 07:40 07:56 08:02 Temperature Pulse Rate 89 90 Pulse Rate [ Pulse Oximetery ] Respiratory 18 Rate Blood Pressure 126/80 Blood Pressure [Left Arm] Blood Pressure [Right Arm] O2 Sat by Pulse 96 97 Oximetry 12/04/23 12/04/23 12/04/23 08:07 08:26 10:40 Temperature Pulse Rate 89 104 H 89 Pulse Rate [ Pulse Oximetery ] Respiratory 18 20 Rate Blood Pressure 149/95 157/102 Blood Pressure [Left Arm] Blood Pressure [Right Arm] O2 Sat by Pulse 97 98 Oximetry 12/04/23 12/04/23 12/04/23 11:50 13:37 15:12 Temperature Pulse Rate 81 74 96 Pulse Rate [ Pulse Oximetery ] Respiratory 18 16 20 Rate Blood Pressure 154/106 160/90 Blood Pressure [Left Arm] Blood Pressure [Right Arm] O2 Sat by Pulse 98 97 Oximetry 12/04/23 12/04/23 12/05/23 19:54 21:44 00:06 Temperature Pulse Rate 85 88 95 Pulse Rate [ Pulse Oximetery ] Respiratory 18 18 18 Rate Blood Pressure 162/103 144/90 144/90 Blood Pressure [Left Arm] Blood Pressure [Right Arm] O2 Sat by Pulse 98 98 96 Oximetry 12/05/23 12/05/23 12/05/23 03:44 06:46 11:09 Temperature Pulse Rate 88 78 84 Pulse Rate [ Pulse Oximetery ] Respiratory 18 20 18 Rate Blood Pressure 131/84 158/90 130/101 Blood Pressure [Left Arm] Blood Pressure [Right Arm] O2 Sat by Pulse 97 98 97 Oximetry 12/05/23 12/05/23 12/05/23 15:10 16:43 20:46 Temperature Pulse Rate 68 84 86 Pulse Rate [ Pulse Oximetery ] Respiratory 16 18 18 Rate Blood Pressure 146/100 138/99 Blood Pressure [Left Arm] Blood Pressure [Right Arm] O2 Sat by Pulse 99 98 Oximetry 12/05/23 12/06/23 12/06/23 22:01 04:15 07:35 Temperature 98.7 F Pulse Rate 78 73 77 Pulse Rate [ Pulse Oximetery ] Respiratory 18 17 16 Rate Blood Pressure 145/95 131/94 143/92 Blood Pressure [Left Arm] Blood Pressure [Right Arm] O2 Sat by Pulse 95 97 97 Oximetry 12/06/23 12/06/23 12/06/23 10:25 12:16 19:00 Temperature 97.6 F Pulse Rate 77 68 98 Pulse Rate [ Pulse Oximetery ] Respiratory 16 16 16 Rate Blood Pressure 146/79 104/62 121/77 Blood Pressure [Left Arm] Blood Pressure [Right Arm] O2 Sat by Pulse 98 97 100 Oximetry 12/06/23 12/06/23 12/06/23 22:22 22:50 23:31 Temperature 97.4 F L Pulse Rate 74 Pulse Rate [ 84 84 Pulse Oximetery ] Respiratory 18 18 18 Rate Blood Pressure 121/77 Blood Pressure [Left Arm] Blood Pressure 138/88 [Right Arm] O2 Sat by Pulse 98 100 Oximetry 12/07/23 12/07/23 12/07/23 01:54 02:49 08:00 Temperature Pulse Rate Pulse Rate [ 84 73 81 Pulse Oximetery ] Respiratory 18 18 Rate Blood Pressure Blood Pressure [Left Arm] Blood Pressure 115/72 [Right Arm] O2 Sat by Pulse Oximetry 12/07/23 12/07/23 12/07/23 08:43 14:00 14:58 Temperature 97.3 F L 98.4 F Pulse Rate Pulse Rate [ 81 80 80 Pulse Oximetery ] Respiratory 18 15 15 Rate Blood Pressure Blood Pressure [Left Arm] Blood Pressure 143/91 122/72 [Right Arm] O2 Sat by Pulse 97 95 Oximetry 12/07/23 12/07/23 12/08/23 19:00 19:30 00:32 Temperature 98.3 F 97.5 F L Pulse Rate Pulse Rate [ 87 87 86 Pulse Oximetery ] Respiratory 18 18 18 Rate Blood Pressure Blood Pressure [Left Arm] Blood Pressure 149/97 130/80 [Right Arm] O2 Sat by Pulse 100 98 Oximetry 12/08/23 12/08/23 12/08/23 02:00 12:43 19:06 Temperature 97.0 F L 98.8 F Pulse Rate Pulse Rate [ 86 86 87 Pulse Oximetery ] Respiratory 18 19 16 Rate Blood Pressure Blood Pressure [Left Arm] Blood Pressure 127/84 125/81 [Right Arm] O2 Sat by Pulse 99 100 Oximetry 12/09/23 12/09/23 12/09/23 02:58 07:55 13:45 Temperature 96.9 F L 97.3 F L 98.6 F Pulse Rate Pulse Rate [ 74 90 81 Pulse Oximetery ] Respiratory 20 18 18 Rate Blood Pressure Blood Pressure 158/80 129/86 [Left Arm] Blood Pressure 126/71 [Right Arm] O2 Sat by Pulse 97 98 99 Oximetry 12/09/23 12/10/23 12/10/23 19:15 00:26 07:17 Temperature 97.8 F 98.2 F 97.5 F L Pulse Rate Pulse Rate [ 80 78 65 Pulse Oximetery ] Respiratory 16 16 16 Rate Blood Pressure Blood Pressure 166/90 127/79 126/78 [Left Arm] Blood Pressure [Right Arm] O2 Sat by Pulse 96 97 99 Oximetry 12/10/23 12/10/23 12/11/23 14:07 20:46 02:30 Temperature 98.2 F 98.2 F 98.5 F Pulse Rate Pulse Rate [ 84 85 83 Pulse Oximetery ] Respiratory 16 18 16 Rate Blood Pressure Blood Pressure 99/65 115/78 113/72 [Left Arm] Blood Pressure [Right Arm] O2 Sat by Pulse 97 98 96 Oximetry - Reevaluation(s) Reevaluation #1: 12/04/23 01:02 Records reviewed Reevaluation #2: 12/04/23 01:02 Patient symptoms mildly improved here in the ER Reevaluation #3: 12/04/23 01:02 Patient informed of results and questions answered Reevaluation #4: Was pt. sent in by a medical professional or institution (, PA, [employer], urgent care, hospital, or fpc...) When possible be specific @ -no Did you speak to anyone other than the patient for history (EMS, parent, family, police, friend...)? What history was obtained from this source @ -no Did you review nursing and triage notes (agree or disagree)? Why? @ -agree Are old charts reviewed (outside hosp., previous admission, EMS record, old EKG, old radiological studies, urgent care reports/EKG's, fpc records)? Report findings @ -yes Differential Diagnosis (chest pain, altered mental status, abdominal pain women, abdominal pain men, vaginal bleeding, weakness, fever, dyspnea, syncope, headache, dizziness, GI bleed, back pain, seizure, CVA, palpatations, mental health, musculoskeletal)? @ -prior EKG interpreted by me (3pts min.). @ -yes X-rays interpreted by me (1pt min.). @ -yes negative for acute disease CT interpreted by me (1pt min.). @ -no U/S interpreted by me (1pt. min.). @ -no What testing was considered but not performed or refused? (CT, X-rays, U/S, labs)? Why? @ -none What meds were considered but not given or refused? Why? @ -none Did you discuss the management of the patient with other professionals (professionals i.e. , PA, [employer], lab, RT, psych nurse, social worker clinical, frankfurter inspector, teacher, parking control officer, skilled nursing case manager)? Give summary @ -no Was smoking cessation discussed for >3mins.? @ -no Was critical care preformed (if so, how long)? @ -no Were there social determinants of health that impacted care today? How? (Homelessness, low income, unemployed, alcoholism, drug addiction, transportation, low edu. Level, literacy, decrease access to med. care, [facility], rehab)? @ -none Was there de-escalation of care discussed even if they declined (Discuss DNR or withdrawal of care, Hospice)? DNR status @ -no What co-morbidities impacted this encounter? (DM, HTN, Smoking, COPD, CAD, Cancer, CVA, ARF, Chemo, Hep., AIDS, mental health diagnosis, sleep apnea, morbid obesity)? @ -none Was patient admitted / discharged? Hospital course, mention meds given and route, prescriptions, significant lab abnormalities, going to OR and other pert inent info. @ - 57 female known to this emergency department for chest pain shortness of breath lower extremity edema left lower extremity cellulitis. Patient admitted for IV antibiotics Admitted Undiagnosed new problem with uncertain prognosis? @ -no Drug Therapy requiring intensive monitoring for toxicity (Heparin, Nitro, Insulin, Cardizem)? @ -no Were any procedures done? @ -no Diagnosis/symptom? @ -Left leg cellulitis chest pain or shortness of breath Acute, or Chronic, or Acute on Chronic? @ -Acute Uncomplicated (without systemic symptoms) or Complicated (systemic symptoms)? @ -Complicated Side effects of treatment? @ -no Exacerbation, Progression, or Severe Exacerbation? @ -exacerbation Poses a threat to life or bodily function? How? (Chest pain, [place], [place], pneumonia, PE, COPD, DKA, ARF, appy, cholecystitis, CVA, Diverticulitis, Homicidal, Suicidal, threat to staff... and all critical care pts) @ -yes yes with significant infection Reevaluation #5: Differential Dyspnea: Coronary syndrome, arrhythmia, tamponade, asthma, COPD, pulmonary embolism, pneumonia, pneumothorax, pulmonary effusion, anaphylaxis, diabetic ketoacidosis, flailed chest, pulmonary contusion, diaphragmatic rupture, anemia, neuromuscular, this is not meant to be an all-inclusive list. - Consultations Consultation #1: With [facility] who agreed to admit this patient Medical Decision Making - Medical Decision Making 57 female known to this emergency department for chest pain shortness of breath lower extremity edema left lower extremity cellulitis. Patient admitted for IV antibiotics - Lab Data Result diagrams: 12/11/23 09:40 12/11/23 09:40 Lab Results 12/03/23 12/03/23 12/03/23 Range/Units 23:21 23:21 23:21 WBC 7.8 (3.8-10.6) k/uL RBC 3.46 L (3.80-5.40) m/uL Hgb 11.9 (11.4-16.0) gm/dL Hct 36.7 (34.0-46.0) % MCV 105.9 H (80.0-100.0) fL MCH 34.4 (25.0-35.0) pg MCHC 32.5 (31.0-37.0) g/dL RDW 14.8 (11.5-15.5) % Plt Count 376 (150-450) k/uL MPV 7.8 Neutrophils % 66 % Lymphocytes % 23 % Monocytes % 7 % Eosinophils % 1 % Basophils % 1 % Neutrophils # 5.1 (1.3-7.7) k/uL Lymphocytes # 1.8 (1.0-4.8) k/uL Monocytes # 0.5 (0-1.0) k/uL Eosinophils # 0.1 (0-0.7) k/uL Basophils # 0.1 (0-0.2) k/uL Macrocytosis Moderate PT 10.1 (10.0-12.5) sec INR 0.9 (<1.2) APTT 23.4 (22.0-30.0) sec Sodium 137 (137-145) mmol/L Potassium 3.8 (3.5-5.1) mmol/L Chloride 109 H (98-107) mmol/L Carbon Dioxide 19 L (22-30) mmol/L Anion Gap 9 mmol/L BUN 7 (7-17) mg/dL Creatinine 0.46 L (0.52-1.04) mg/dL Est GFR (CKD-EPI)AfAm >90 (>60 ml/min/1.73 sqM) Est GFR (CKD-EPI)NonAf >90 (>60 ml/min/1.73 sqM) Glucose 115 H (74-99) mg/dL Calcium 8.9 (8.4-10.2) mg/dL Magnesium 1.8 (1.6-2.3) mg/dL Total Bilirubin 0.5 (0.2-1.3) mg/dL AST 36 (14-36) U/L ALT 20 (4-34) U/L Alkaline Phosphatase 85 (38-126) U/L Troponin I (0.000-0.034) ng/mL NT-Pro-B Natriuret Pep 545 pg/mL Total Protein 6.0 L (6.3-8.2) g/dL Albumin 3.7 (3.5-5.0) g/dL 12/03/23 Range/Units 23:21 WBC (3.8-10.6) k/uL RBC (3.80-5.40) m/uL Hgb (11.4-16.0) gm/dL Hct (34.0-46.0) % MCV (80.0-100.0) fL MCH (25.0-35.0) pg MCHC (31.0-37.0) g/dL RDW (11.5-15.5) % Plt Count (150-450) k/uL MPV Neutrophils % % Lymphocytes % % Monocytes % % Eosinophils % % Basophils % % Neutrophils # (1.3-7.7) k/uL Lymphocytes # (1.0-4.8) k/uL Monocytes # (0-1.0) k/uL Eosinophils # (0-0.7) k/uL Basophils # (0-0.2) k/uL Macrocytosis PT (10.0-12.5) sec INR (<1.2) APTT (22.0-30.0) sec Sodium (137-145) mmol/L Potassium (3.5-5.1) mmol/L Chloride (98-107) mmol/L Carbon Dioxide (22-30) mmol/L Anion Gap mmol/L BUN (7-17) mg/dL Creatinine (0.52-1.04) mg/dL Est GFR (CKD-EPI)AfAm (>60 ml/min/1.73 sqM) Est GFR (CKD-EPI)NonAf (>60 ml/min/1.73 sqM) Glucose (74-99) mg/dL Calcium (8.4-10.2) mg/dL Magnesium (1.6-2.3) mg/dL Total Bilirubin (0.2-1.3) mg/dL AST (14-36) U/L ALT (4-34) U/L Alkaline Phosphatase (38-126) U/L Troponin I <0.012 (0.000-0.034) ng/mL NT-Pro-B Natriuret Pep pg/mL Total Protein (6.3-8.2) g/dL Albumin (3.5-5.0) g/dL - EKG Data -: EKG Interpreted by Me (EKG is sinus 93 OK 155 QRS 94 QTc 423) - Radiology Data Radiology results: report reviewed (Chest x-ray is negative for acute disease), image reviewed Disposition Clinical Impression: Weakness, Alcohol abuse, Hyponatremia, Shortness of breath, COPD (chronic obstructive pulmonary disease), Dehydration, Acute exacerbation of chronic obstructive pulmonary disease, Left leg cellulitis Disposition: ADMITTED IP TO THIS HOSP Condition: Fair Is patient prescribed a controlled substance at d/c from ED?: No Time of Disposition: 01:00
[2023-12-03 23:29] LABS: Basophils # (A) 0.1 k/uL (0-0.2); Basophils % (A) 1 %; Eosinophils # (A) 0.1 k/uL (0-0.7); Eosinophils % (A) 1 %; HCT 36.7 % (34.0-46.0); HGB 11.9 gm/dL (11.4-16.0); Lymphocytes # (A) 1.8 k/uL (1.0-4.8); Lymphocytes % (A) 23 %; MCH 34.4 pg (25.0-35.0); MCHC 32.5 g/dL (31.0-37.0); MCV 105.9 fL (80.0-100.0); Macrocytosis Moderate; Mean Platelet Volume 7.8; Monocytes # (A) 0.5 k/uL (0-1.0); Monocytes % (A) 7 %; Neutrophils # (A) 5.1 k/uL (1.3-7.7); Neutrophils % (A) 66 %; Platelet Count 376 k/uL (150-450); RBC 3.46 m/uL (3.80-5.40); RDW 14.8 % (11.5-15.5); WBC 7.8 k/uL (3.8-10.6)
[2023-12-03] MEDS: IPRATROPIUM-ALBUTEROL 3 ML NEB INHALATION STA (23:30)
[2023-12-03 23:38] LABS: INR 0.9 (<1.2); Partial Thromboplastin Time 23.4 sec (22.0-30.0); Prothrombin Time 10.1 sec (10.0-12.5)
[2023-12-04] MEDS: methylPREDNISolone SOD SUCCI 125 MG/2 ML VIAL IV STA (00:03)
[2023-12-04] MEDS: MORPHINE SULFATE 2 MG/ML SYRINGE IVP STA (00:09)
[2023-12-04 00:14] LABS: ALT 20 U/L (4-34); AST 36 U/L (14-36); African American GFR (CKD) >90 (>60 ml/min/1.73 sqM); Albumin 3.7 g/dL (3.5-5.0); Alkaline Phosphatase 85 U/L (38-126); Anion Gap 9 mmol/L; Blood Urea Nitrogen 7 mg/dL (7-17); Calcium 8.9 mg/dL (8.4-10.2); Carbon Dioxide 19 mmol/L (22-30); Chloride 109 mmol/L (98-107); Glucose 115 mg/dL (74-99); Magnesium 1.8 mg/dL (1.6-2.3); Non-African American GFR(CKD) >90 (>60 ml/min/1.73 sqM); Potassium 3.8 mmol/L (3.5-5.1); Sodium 137 mmol/L (137-145); Total Bilirubin 0.5 mg/dL (0.2-1.3)
[2023-12-04 00:22] LABS: NT-Pro-B-Type Natriuretic Pept 545 pg/mL
--- NOTE | 2023-12-04 00:46 | XR ---
EXAM: XR Chest, 1 View CLINICAL HISTORY: ITS.REASON XR Reason: sob TECHNIQUE: Frontal view of the chest. COMPARISON: 12/02/2023. FINDINGS: Lungs: Unremarkable. No consolidative changes. Pleural space: Unremarkable. No pneumothorax. No pleural effusions. Heart: Heart is normal in size. No cardiomegaly. Mediastinum: Unremarkable. Normal mediastinal contour. Bones/joints: Osseous structures and soft tissues are unremarkable. No acute fracture. Vasculature: Atherosclerotic disease of the aortic knob. IMPRESSION: 1. Atherosclerotic disease. 2. No consolidative changes. 3. No pleural effusions.
[2023-12-04] MEDS ORDERED: NALOXONE 0.4 MG/ML 1 ML VIAL IVP PRN (00:57)
[2023-12-04] MEDS ORDERED: ONDANSETRON 4 MG/2 ML VIAL IVP PRN (00:57)
[2023-12-04] MEDS ORDERED: NALOXONE 0.4 MG/ML 1 ML VIAL IV PRN (00:57)
[2023-12-04] MEDS: SODIUM CHLORIDE 0.9% 1,000 ML IV SCH (01:18)
[2023-12-04] MEDS: IPRATROPIUM-ALBUTEROL 3 ML NEB INHALATION STA (03:23)
[2023-12-04] MEDS: MORPHINE SULFATE 4 MG/ML SYRINGE IV PRN (04:14)
[2023-12-04] MEDS: LORazepam 2 MG/ML INJ IV PRN ×3 (04:18→19:49)
[2023-12-04] MEDS: methylPREDNISolone SOD SUCCI 125 MG/2 ML VIAL IV SCH (06:03)
[2023-12-04] MEDS: ALBUTEROL NEBULIZED 2.5 MG/3 ML INHALATION PRN (07:56)
--- NOTE | 2023-12-04 10:24 | US ---
EXAMINATION TYPE: US venous doppler duplex LE DATE OF EXAM: 12/04/2023 10:11 AM COMPARISON: NONE CLINICAL INDICATION: Female, 57 years old with history of swelling, elevated d-dimer; elevated D-Dime r SIDE PERFORMED: Bilateral TECHNIQUE: The lower extremity deep venous system is examined utilizing real time linear array sonog dimas with graded compression, doppler sonography and color-flow sonography. VESSELS IMAGED: Common Femoral Vein Deep Femoral Vein Greater Saphenous Vein * Femoral Vein Popliteal Vein Small Saphenous Vein * Proximal Calf Veins (* superficial vessels) Right Leg: No evidence of DVT as visualized Left Leg: No evidence of DVT as visualized IMPRESSION: 1. Bilateral lower extremity ultrasound negative for deep venous thrombosis.
--- NOTE | 2023-12-04 10:32 | P.HPIM ---
History of Present Illness H&P Date: 12/04/23 History of present illness; patient 57-year-old lady with past medical history significant for hyperlipidemia, alcohol abuse, seizure disorder, COPD presented to ER for complaint of not feeling well for the last few days. Patient has history of heavy alcohol abuse. Patient stated that for the last few days she has not been feeling well. Patient has been complaining of left lower extremity swelling and pain. Patient stated that the left lower extremity felt very warm. Patient also complains of shortness of breath on exertion. When patient went to the ER she started complaining of intermittent chest pain. There was no complaint of palpitation. There was no clear orthopnea or PND. Initial lab work done in the ER showed WBC 7.8, hemoglobin 11.9, platelet count 376, sodium 137, potassium 3.8, BUN 7, creatinine 0.46, glucose 115, troponin 0.012 EKG done in the ER showed heart rate of 93, no ST segment elevation or depression seen, no T-wave inversions seen. Chest x-ray done in the ER no consolidations, no pleural effusions. Patient admitted to internal medicine service REVIEW OF SYSTEMS: CONSTITUTIONAL: No fever, no malaise, no fatigue. HEENT: No recent visual problems or hearing problems. Denied any sore throat. CARDIOVASCULAR: As mentioned above PULMONARY: As mentioned above GASTROINTESTINAL: No diarrhea, no nausea, no vomiting, no abdominal pain. NEUROLOGICAL: No headaches, no weakness, no numbness. HEMATOLOGICAL: Denies any bleeding or petechiae. GENITOURINARY: Denies any burning micturition, frequency, or urgency. MUSCULOSKELETAL/RHEUMATOLOGICAL: As mentioned above ENDOCRINE: Denies any polyuria or polydipsia. The rest of the 14-point review of systems is negative. PHYSICAL EXAMINATION: GENERAL: The patient is alert, chronically ill looking HEENT: Pupils are round and equally reacting to light. EOMI. No scleral icterus. No conjunctival pallor. Normocephalic, atraumatic. No pharyngeal erythema. No thyromegaly. CARDIOVASCULAR: S1 and S2 present. No murmurs, rubs, or gallops. PULMONARY: Chest is clear to auscultation, no wheezing or crackles. ABDOMEN: Soft, nontender, nondistended, normoactive bowel sounds. No palpable organomegaly. MUSCULOSKELETAL: No joint swelling or deformity. EXTREMITIES: No cyanosis, . 2+ pitting edema lower extremity left. Left lower extremity erythema seen the calf area NEUROLOGICAL: Gross neurological examination did not reveal any focal deficits. SKIN: No rashes. Assessment and plan Left lower extremity swelling Alcohol abuse Chest pain Hyperlipidemia History of COPD History of seizures Monitor vital signs Monitor CBC Monitor CMP Continue telemetry monitoring Trend troponins. Ordered ultrasound left lower extremity Continue IV Rocephin Continue CIWA protocol Continue high-dose thiamine and folic acid Consult cardiology Consult ID Labs and medication were reviewed.. Continue same treatment. Continue with symptomatic treatment. Resume home medication. Monitor labs and vitals. DVT and GI prophylaxis. Further recommendations as per clinical course of the patient Dictation was produced using [employer] dictation software. please excuse any grammatical, word or spelling errors. Past Medical History Past Medical History: COPD, Liver Disease, Myocardial Infarction ([place]), Seizure Disorder, Vascular Disorder Additional Past Medical History / Comment(s): constpation, last bowel movement 4 days ago, feeling bloated,feeling of fullness, and abdominal pain, feels hungry then over eats then vomits to feel better, LAST SEIZURE - JANUARY 2021, "broken heart syndrome"., elevated liver enzymes, "dislocated disks", hx cervical cancer Last Myocardial Infarction Date:: 2019 History of Any Multi-Drug Resistant Organisms: None Reported Past Surgical History: Section, Heart Catheterization, Tubal Ligation Additional Past Surgical History / Comment(s): ORIF rt ankle/hardware later removed, exploratory lap, PAIN CLINIC PROCEDURE, BILAT CATARACTS REMOVED WITH LENS IMPLANTS, procedure to open a vein in left leg-couldn't confirm which leg, partial amputation rt hand middle finger, "procedure to remove cervical cancer" Past Anesthesia/Blood Transfusion Reactions: No Reported Reaction Past Psychological History: Anxiety, Bipolar, Depression, PTSD Smoking Status: Current every day smoker Past Alcohol Use History: Abuse, Daily, Heavy Past Drug Use History: Marijuana - Past Family History Father Family Medical History: Cancer, Prostate Disorder, Pulmonary Embolus Sister(s) Family Medical History: Cancer Brother(s) Family Medical History: Cancer Additional Family Medical History / Comment(s): colon and bladder Medications and Allergies Home Medications Medication Instructions Recorded Confirmed Type Fluorometholone 0.1% Ophth Sharmin 1 drops BOTH EYES BID 08/02/23 11/18/23 History [Fml] Loteprednol Etabonate [Alrex] 1 drop BOTH EYES BID 08/02/23 11/18/23 History Ketorolac [Toradol] 10 mg PO Q6H PRN 08/23/23 11/18/23 History Atorvastatin [Lipitor] 20 mg PO HS 09/06/23 11/18/23 History Mirtazapine [Remeron] 15 mg PO HS 09/06/23 11/18/23 History Potassium Chloride 20 meq PO DAILY #60 cap 09/07/23 11/18/23 Rx Albuterol Inhaler [Ventolin Hfa 2 puff INHALATION RT-Q6H PRN 11/18/23 11/18/23 History Inhaler] Multivitamins, Thera [Multivitamin 1 tab PO DAILY 11/18/23 11/18/23 History (formulary)] Nitroglycerin Sl Tabs [Nitrostat] 0.4 mg SL Q5M PRN 11/18/23 11/18/23 History Thiamine [Vitamin B-1] 100 mg PO DAILY@1200 #30 tab 11/20/23 Rx chlordiazePOXIDE HCl [Librium] 25 mg PO DIRECTED 4 Days #6 cap 11/20/23 Rx levETIRAcetam [Keppra] 1,000 mg PO BID #60 tab 11/20/23 Rx Allergies Allergy/AdvReac Type Severity Reaction Status Date / Time Penicillins Allergy Rash/Hives/Swelling Verified 12/01/23 23:27 all over body NSAIDS (Non-Steroidal AdvReac Unknown upset Verified 12/01/23 23:27 Anti-Inflamma stomach sertraline HCl [From Zoloft] AdvReac Suicidal/Ag Verified 12/01/23 23:27 ression Physical Exam Vitals: Vital Signs Temp Pulse Resp BP Pulse Ox 12/04/23 08:26 104 H 18 149/95 97 12/04/23 08:07 89 12/04/23 08:02 97 12/04/23 07:56 90 12/04/23 07:40 89 18 126/80 96 12/04/23 06:00 94 17 117/69 97 12/04/23 04:14 105 H 18 129/77 96 12/04/23 03:33 105 H 12/04/23 03:23 104 H 12/04/23 01:00 108 H 18 110/69 95 12/04/23 00:08 112 H 19 130/85 96 12/03/23 23:49 85 12/03/23 23:30 87 18 12/03/23 22:53 98.3 F 99 18 106/75 97 Intake and Output 12/03/23 12/04/23 12/04/23 22:59 06:59 14:59 Other: Weight 52.163 kg Results CBC & Chem 7: 12/03/23 23:21 12/03/23 23:21 Labs: Abnormal Lab Results - Last 24 Hours (Table) 12/03/23 12/03/23 Range/Units 23:21 23:21 RBC 3.46 L (3.80-5.40) m/uL MCV 105.9 H (80.0-100.0) fL Chloride 109 H (98-107) mmol/L Carbon Dioxide 19 L (22-30) mmol/L Creatinine 0.46 L (0.52-1.04) mg/dL Glucose 115 H (74-99) mg/dL Total Protein 6.0 L (6.3-8.2) g/dL
[2023-12-04] MEDS: PANTOPRAZOLE 40 MG/10 ML VIAL IV SCH (10:39)
--- NOTE | 2023-12-04 13:58 | P.CRDCN ---
History of Present Illness Consult date: 12/04/23 History of present illness: History of Present Illness: The patient is a 57-year-old female with known history of chronic alcoholism, prior Takotsubo cardiomyopathy with normal coronary angiography in 2016, chronic tobacco use who has been followed by Dr. Olivas. She came into the emergency room not feeling well, anxious and complaining of edema and chest discomfort. At the time of my evaluation she is confused having symptoms of withdrawal. She is in sinus mechanism. Her troponin is normal. She was in the hospital in August of this year with chest discomfort that was noncardiac. Her low ventricle systolic function in the past was normal and she had a dobutamine stress test in May 2023 that showed no evidence of inducible ischemia. She has a history of hypertension and hyperlipidemia, she is nondiabetic. No accurate history could be obtained from the patient. Medications: As an outpatient she is on thiamine, Lipitor 20 mg daily, Ventolin, Remeron, Toradol Review of Systems: Could not be obtained, patient awake but confused having withdrawal symptoms Physical Examination: 57-year-old female alert but confused agitated,Blood pressure 154/106, Heart rate 81 Head: Normocephalic. Eyes: Sclerae nonicteric. Neck: Good carotid upstroke, no bruit, no jugular venous distention. Lungs: Clear to auscultation. Heart: Regular rate and rhythm, S1-S2, no S3, no rub. Systolic ejection murmur. Abdomen: Soft nontender, positive bowel sounds no organomegaly. Extremities: Trace edema, intact distal pulses. Labs: Hemoglobin 11.9, BUN 7, creatinine 0.46, potassium 3.8. Troponin less than 0.012. NT proBNP 545. Duplex scan of lower extremities with no evidence of DVT. Chest x-ray with no acute infiltrate EKG: Sinus mechanism with no acute changes Impression: 1. Chronic alcohol abuse with associated agitation 2. Noncardiac chest pain 3. History of Takotsubo syndrome in the past, stable with normal LV systolic function in August 4. History of hyperlipidemia Plan: 1. Treatment of alcoholism 2. No indication for any further cardiac workup at this time 3. Will see her on as-needed basis, please feel free to call us for any question 4. Thank you for this consult Past Medical History Past Medical History: COPD, Liver Disease, Myocardial Infarction ([place]), Seizure Disorder, Vascular Disorder Additional Past Medical History / Comment(s): constpation, last bowel movement 4 days ago, feeling bloated,feeling of fullness, and abdominal pain, feels hungry then over eats then vomits to feel better, LAST SEIZURE - JANUARY 2021, "broken heart syndrome"., elevated liver enzymes, "dislocated disks", hx cervical cancer Last Myocardial Infarction Date:: 2019 History of Any Multi-Drug Resistant Organisms: None Reported Past Surgical History: Section, Heart Catheterization, Tubal Ligation Additional Past Surgical History / Comment(s): ORIF rt ankle/hardware later removed, exploratory lap, PAIN CLINIC PROCEDURE, BILAT CATARACTS REMOVED WITH LENS IMPLANTS, procedure to open a vein in left leg-couldn't confirm which leg, partial amputation rt hand middle finger, "procedure to remove cervical cancer" Past Anesthesia/Blood Transfusion Reactions: No Reported Reaction Past Psychological History: Anxiety, Bipolar, Depression, PTSD Smoking Status: Current every day smoker Past Alcohol Use History: Abuse, Daily, Heavy Past Drug Use History: Marijuana - Past Family History Father Family Medical History: Cancer, Prostate Disorder, Pulmonary Embolus Sister(s) Family Medical History: Cancer Brother(s) Family Medical History: Cancer Additional Family Medical History / Comment(s): colon and bladder Medications and Allergies Home Medications Medication Instructions Recorded Confirmed Type Fluorometholone 0.1% Ophth Sharmin 1 drops BOTH EYES BID 08/02/23 12/04/23 History [Fml] Loteprednol Etabonate [Alrex] 1 drop BOTH EYES BID 08/02/23 12/04/23 History Ketorolac [Toradol] 10 mg PO Q6H PRN 08/23/23 12/04/23 History Atorvastatin [Lipitor] 20 mg PO HS 09/06/23 12/04/23 History Mirtazapine [Remeron] 15 mg PO HS 09/06/23 12/04/23 History Potassium Chloride 20 meq PO DAILY #60 cap 09/07/23 12/04/23 Rx Albuterol Inhaler [Ventolin Hfa 2 puff INHALATION RT-Q6H PRN 11/18/23 12/04/23 History Inhaler] Multivitamins, Thera [Multivitamin 1 tab PO DAILY 11/18/23 12/04/23 History (formulary)] Nitroglycerin Sl Tabs [Nitrostat] 0.4 mg SL Q5M PRN 11/18/23 12/04/23 History Thiamine [Vitamin B-1] 100 mg PO DAILY@1200 #30 tab 11/20/23 12/04/23 Rx levETIRAcetam [Keppra] 1,000 mg PO BID #60 tab 11/20/23 12/04/23 Rx Allergies Allergy/AdvReac Type Severity Reaction Status Date / Time Penicillins Allergy Rash/Hives/Swelling Verified 12/04/23 12:27 all over body NSAIDS (Non-Steroidal AdvReac Unknown upset Verified 12/04/23 12:27 Anti-Inflamma stomach sertraline HCl [From Zoloft] AdvReac Suicidal/Ag Verified 12/04/23 12:27 ression Physical Exam Vitals: Vital Signs Temp Pulse Resp BP Pulse Ox 12/04/23 13:37 74 16 12/04/23 11:50 81 18 154/106 98 12/04/23 10:40 89 20 157/102 98 12/04/23 08:26 104 H 18 149/95 97 12/04/23 08:07 89 12/04/23 08:02 97 12/04/23 07:56 90 12/04/23 07:40 89 18 126/80 96 12/04/23 06:00 94 17 117/69 97 12/04/23 04:14 105 H 18 129/77 96 12/04/23 03:33 105 H 12/04/23 03:23 104 H 12/04/23 01:00 108 H 18 110/69 95 12/04/23 00:08 112 H 19 130/85 96 12/03/23 23:49 85 12/03/23 23:30 87 18 12/03/23 22:53 98.3 F 99 18 106/75 97 Intake and Output 12/03/23 12/04/23 12/04/23 22:59 06:59 14:59 Other: Weight 52.163 kg Results 12/03/23 23:21 12/03/23 23:21 Cardiac Enzymes 12/03/23 12/03/23 12/04/23 Range/Units 23:21 23:21 04:38 AST 36 (14-36) U/L Troponin I <0.012 <0.012 (0.000-0.034) ng/mL 12/04/23 Range/Units 07:56 AST (14-36) U/L Troponin I <0.012 (0.000-0.034) ng/mL Coagulation 12/03/23 Range/Units 23:21 PT 10.1 (10.0-12.5) sec APTT 23.4 (22.0-30.0) sec CBC 12/03/23 Range/Units 23:21 WBC 7.8 (3.8-10.6) k/uL RBC 3.46 L (3.80-5.40) m/uL Hgb 11.9 (11.4-16.0) gm/dL Hct 36.7 (34.0-46.0) % Plt Count 376 (150-450) k/uL Comprehensive Metabolic Panel 12/03/23 Range/Units 23:21 Sodium 137 (137-145) mmol/L Potassium 3.8 (3.5-5.1) mmol/L Chloride 109 H (98-107) mmol/L Carbon Dioxide 19 L (22-30) mmol/L BUN 7 (7-17) mg/dL Creatinine 0.46 L (0.52-1.04) mg/dL Glucose 115 H (74-99) mg/dL Calcium 8.9 (8.4-10.2) mg/dL AST 36 (14-36) U/L ALT 20 (4-34) U/L Alkaline Phosphatase 85 (38-126) U/L Total Protein 6.0 L (6.3-8.2) g/dL Albumin 3.7 (3.5-5.0) g/dL Current Medications Generic Name Dose Route Start Last Admin Trade Name Freq PRN Reason Stop Dose Admin Albuterol Sulfate 2.5 mg 12/04/23 01:00 12/04/23 07:56 Albuterol Nebulized 2.5 Mg/3 Ml INHALATION 2.5 mg RT-QID PRN Administration Shortness Of Breath Or Wheezing Sodium Chloride 1,000 mls @ 75 mls/hr 12/04/23 01:00 12/04/23 13:52 Saline 0.9% IV 75 mls/hr .[id number] EDGARDO Administration Ceftriaxone Sodium 2 gm/ 50 mls @ 100 mls/hr 06/22/24 23:00 Sodium Chloride IVPB Q24H EDGARDO Protocol Lorazepam 2 mg 12/04/23 00:57 Lorazepam 1 Mg Tab PO Q3HR PRN Ciwa 8 To 9 Lorazepam 2 mg 12/04/23 00:57 Lorazepam 1 Mg Tab PO Q2HR PRN Ciwa 10 or greater Lorazepam 1 mg 12/04/23 00:57 Lorazepam 1 Mg Tab PO Q4HR PRN Ciwa 6 To 7 Lorazepam 0.5 mg 12/04/23 00:57 Lorazepam 0.5 Mg Tab PO Q4HR PRN Ciwa 4 To 5 Lorazepam 2 mg 12/04/23 00:57 Lorazepam 2 Mg/Ml Inj IV 12/06/23 00:59 Q10M PRN CIWA 16 or higher Lorazepam 1 mg 12/04/23 00:57 12/04/23 08:29 Lorazepam 2 Mg/Ml Inj IV 1 mg Q2HR PRN Administration CIWA 8 or 9 Lorazepam 1 mg 12/04/23 00:57 12/04/23 11:56 Lorazepam 2 Mg/Ml Inj IV 1 mg Q1HR PRN Administration CIWA 10 to 15 Morphine Sulfate 2 mg 12/03/23 23:46 Morphine Sulfate 2 Mg/Ml Syringe IVP Q4HR PRN Pain/Discomfort Morphine Sulfate 4 mg 12/04/23 00:57 12/04/23 04:14 Morphine Sulfate 4 Mg/Ml Syringe IV 4 mg Q4HR PRN Administration Severe Pain (Scale 7 to 10) Naloxone HCl 0.2 mg 12/04/23 00:57 Naloxone 0.4 Mg/Ml 1 Ml Vial IV Q2M PRN Opioid Reversal Naloxone HCl 0.2 mg 12/04/23 00:57 Naloxone 0.4 Mg/Ml 1 Ml Vial IVP Q2M PRN Opioid Reversal Ondansetron HCl 4 mg 12/04/23 00:57 Ondansetron 4 Mg/2 Ml Vial IVP Q8HR PRN Nausea And Vomiting Pantoprazole Sodium 40 mg 12/04/23 09:00 12/04/23 10:39 Pantoprazole 40 Mg/10 Ml Vial IV 40 mg DAILY EDGARDO Administration Intake and Output 12/03/23 12/04/23 12/04/23 22:59 06:59 14:59 Other: Weight 52.163 kg 12/03/23 23:21 12/03/23 23:21
[2023-12-04] MEDS: NICOTINE 21MG/24HR PATCH TRANSDERM STA (23:59)
[2023-12-05] MEDS: chlordiazePOXIDE 25 MG CAP PO SCH (00:31)
[2023-12-05 06:37] LABS: ALT 21 U/L (4-34); AST 37 U/L (14-36); African American GFR (CKD) >90 (>60 ml/min/1.73 sqM); Albumin 3.9 g/dL (3.5-5.0); Albumin/Globulin Ratio 1.6; Alkaline Phosphatase 92 U/L (38-126); Anion Gap 9 mmol/L; Basophils # (A) 0.1 k/uL (0-0.2); Basophils % (A) 1 %; Blood Urea Nitrogen 5 mg/dL (7-17); Calcium 9.3 mg/dL (8.4-10.2); Carbon Dioxide 18 mmol/L (22-30); Chloride 113 mmol/L (98-107); Eosinophils # (A) 0.1 k/uL (0-0.7); Eosinophils % (A) 1 %; Globulin 2.5 g/dL; Glucose 78 mg/dL (74-99); HCT 38.6 % (34.0-46.0); HGB 12.3 gm/dL (11.4-16.0); Lymphocytes # (A) 1.9 k/uL (1.0-4.8); Lymphocytes % (A) 12 %; MCH 33.8 pg (25.0-35.0); MCHC 31.9 g/dL (31.0-37.0); MCV 106.1 fL (80.0-100.0); Macrocytosis Moderate; Magnesium 1.8 mg/dL (1.6-2.3); Mean Platelet Volume 8.9; Monocytes # (A) 1.1 k/uL (0-1.0); Monocytes % (A) 7 %; Neutrophils # (A) 12.2 k/uL (1.3-7.7); Neutrophils % (A) 78 %; Non-African American GFR(CKD) >90 (>60 ml/min/1.73 sqM); Phosphorus 3.2 mg/dL (2.5-4.5); Platelet Count 414 k/uL (150-450); RBC 3.64 m/uL (3.80-5.40); Sodium 140 mmol/L (137-145); Total Bilirubin 0.5 mg/dL (0.2-1.3); Total Protein 6.4 g/dL (6.3-8.2); WBC 15.5 k/uL (3.8-10.6)
--- NOTE | 2023-12-05 10:24 | P.CONS ---
History of Present Illness - Reason for Consult Consult date: 12/04/23 Cellulitis Requesting physician: Temo Storey - Chief Complaint Not feeling well left leg pain x few days - History of Present Illness Patient is 57-year-old female past medical history significant for COPD seizure disorder [place] cervical cancer, anxiety bipolar depression current everyday smoker and alcoholism, patient was brought into the hospital for evaluation of not feeling well has been complaining of left lower extremity pain and swelling edema and redness with the patient reported to the ER physician to be more than baseline with concern for cellulitis patient was started on ceftriaxone infectious disease was consulted for further management of antibiot ic therapy, patient presented to the hospital was afebrile and no fever has been recorded subsequently patient not tachycardic hypotensive or hypoxic did have a white count of 7.8 creatinine 0.46 liver enzymes are normal patient did have a chest x-ray that was no consolidation or effusion patient did have a lower extremity Doppler no evidence of DVT patient at time my evaluation is pleasantly confused and is unable to provide any history but specifically denies any headache or chest pain no vomiting or diarrhea was reported by the nursing staff Review of Systems Positive points has been mentioned in HPI complete review could not be obtained because of his underlying mental status Past Medical History Past Medical History: COPD, Liver Disease, Myocardial Infarction ([place]), Seizure Disorder, Vascular Disorder Additional Past Medical History / Comment(s): constpation, last bowel movement 4 days ago, feeling bloated,feeling of fullness, and abdominal pain, feels hungry then over eats then vomits to feel better, LAST SEIZURE - JANUARY 2021, "broken heart syndrome"., elevated liver enzymes, "dislocated disks", hx cervical cancer Last Myocardial Infarction Date:: 2019 History of Any Multi-Drug Resistant Organisms: None Reported Past Surgical History: Section, Heart Catheterization, Tubal Ligation Additional Past Surgical History / Comment(s): ORIF rt ankle/hardware later removed, exploratory lap, PAIN CLINIC PROCEDURE, BILAT CATARACTS REMOVED WITH LENS IMPLANTS, procedure to open a vein in left leg-couldn't confirm which leg, partial amputation rt hand middle finger, "procedure to remove cervical cancer" Past Anesthesia/Blood Transfusion Reactions: No Reported Reaction Past Psychological History: Anxiety, Bipolar, Depression, PTSD Smoking Status: Current every day smoker Past Alcohol Use History: Abuse, Daily, Heavy Past Drug Use History: Marijuana - Past Family History Father Family Medical History: Cancer, Prostate Disorder, Pulmonary Embolus Sister(s) Family Medical History: Cancer Brother(s) Family Medical History: Cancer Additional Family Medical History / Comment(s): colon and bladder Medications and Allergies Home Medications Medication Instructions Recorded Confirmed Type Fluorometholone 0.1% Ophth Sharmin 1 drops BOTH EYES BID 08/02/23 12/04/23 History [Fml] Loteprednol Etabonate [Alrex] 1 drop BOTH EYES BID 08/02/23 12/04/23 History Ketorolac [Toradol] 10 mg PO Q6H PRN 08/23/23 12/04/23 History Atorvastatin [Lipitor] 20 mg PO HS 09/06/23 12/04/23 History Mirtazapine [Remeron] 15 mg PO HS 09/06/23 12/04/23 History Potassium Chloride 20 meq PO DAILY #60 cap 09/07/23 12/04/23 Rx Albuterol Inhaler [Ventolin Hfa 2 puff INHALATION RT-Q6H PRN 11/18/23 12/04/23 History Inhaler] Multivitamins, Thera [Multivitamin 1 tab PO DAILY 11/18/23 12/04/23 History (formulary)] Nitroglycerin Sl Tabs [Nitrostat] 0.4 mg SL Q5M PRN 11/18/23 12/04/23 History Thiamine [Vitamin B-1] 100 mg PO DAILY@1200 #30 tab 11/20/23 12/04/23 Rx levETIRAcetam [Keppra] 1,000 mg PO BID #60 tab 11/20/23 12/04/23 Rx Allergies Allergy/AdvReac Type Severity Reaction Status Date / Time Penicillins Allergy Rash/Hives/Swelling Verified 12/04/23 12:27 all over body NSAIDS (Non-Steroidal AdvReac Unknown upset Verified 12/04/23 12:27 Anti-Inflamma stomach sertraline HCl [From Zoloft] AdvReac Suicidal/Ag Verified 12/04/23 12:27 ression Physical Exam Vitals: Vital Signs Temp Pulse Resp BP Pulse Ox 12/04/23 11:50 81 18 154/106 98 12/04/23 10:40 89 20 157/102 98 12/04/23 08:26 104 H 18 149/95 97 12/04/23 08:07 89 12/04/23 08:02 97 12/04/23 07:56 90 12/04/23 07:40 89 18 126/80 96 12/04/23 06:00 94 17 117/69 97 12/04/23 04:14 105 H 18 129/77 96 12/04/23 03:33 105 H 12/04/23 03:23 104 H 12/04/23 01:00 108 H 18 110/69 95 12/04/23 00:08 112 H 19 130/85 96 12/03/23 23:49 85 12/03/23 23:30 87 18 12/03/23 22:53 98.3 F 99 18 106/75 97 Intake and Output 12/03/23 12/04/23 12/04/23 22:59 06:59 14:59 Other: Weight 52.163 kg GENERAL DESCRIPTION: Middle-aged female lying in bed, no distress. No tachypnea or accessory muscle of respiration use. HEENT: Shows Pallor , no scleral icterus. Oral mucous membrane is dry. No pharyngeal erythema or thrush NECK: Trachea central, no thyromegaly. LUNGS: Unlabored breathing. Clear to auscultation anteriorly. No wheeze or crackle. HEART: S1, S2, regular rate and rhythm. No loud murmur ABDOMEN: Soft, no tenderness , guarding or rigidity, no organomegaly EXTREMITIES: Left leg with minimal swelling and very minimal redness no open wound or any drainage SKIN: No rash, no masses palpable. NEUROLOGICAL: The patient is pleasantly confused orientation could not be determined Results CBC & Chem 7: 12/05/23 05:56 12/05/23 05:56 Labs: Abnormal Lab Results - Last 24 Hours (Table) 12/03/23 12/03/23 Range/Units 23:21 23:21 RBC 3.46 L (3.80-5.40) m/uL MCV 105.9 H (80.0-100.0) fL Chloride 109 H (98-107) mmol/L Carbon Dioxide 19 L (22-30) mmol/L Creatinine 0.46 L (0.52-1.04) mg/dL Glucose 115 H (74-99) mg/dL Total Protein 6.0 L (6.3-8.2) g/dL Assessment and Plan (1) Penicillin allergy Current Visit: Yes Status: Acute Code(s): Z88.0 - ALLERGY STATUS TO PENICILLIN SNOMED Code(s): 05050261 (2) Left leg cellulitis Current Visit: Yes Status: Acute Code(s): L03.116 - CELLULITIS OF LEFT LOWER LIMB SNOMED Code(s): 11920543105129303 Plan: 1patient with multiple comorbidities presenting to the hospital concerning for not feeling well also complaining of some left lower extremity swelling with concern for possible cellulitis Doppler ultrasound was negative for any DVT possibly mild cellulitis likely from gram-positive skin jael 2-penicillin allergy 3-Rocephin 2 g daily to continue We will follow on clinical condition and cultures to further adjust medication if needed Thank you for this consultation we will follow the patient along with you Dictation was produced using [employer] dictation software. please excuse any grammatical, word or spelling errors. Time with Patient: Greater than 30
[2023-12-05] MEDS: NICOTINE 21MG/24HR PATCH TRANSDERM SCH (11:54)
[2023-12-05] MEDS: LORazepam 0.5 MG TAB PO PRN (12:35)
--- NOTE | 2023-12-05 13:47 | P.PN ---
Subjective Progress Note Date: 12/05/23 patient 57-year-old lady with past medical history significant for hyperlipidemia, alcohol abuse, seizure disorder, COPD presented to ER for complaint of not feeling well for the last few days. Patient has history of heavy alcohol abuse. Patient stated that for the last few days she has not been feeling well. Patient has been complaining of left lower extremity swelling and pain. Patient stated that the left lower extremity felt very warm. Patient also complains of shortness of breath on exertion. When patient went to the ER she started complaining of intermittent chest pain. There was no complaint of palpitation. There was no clear orthopnea or PND. Initial lab work done in the ER showed WBC 7.8, hemoglobin 11.9, platelet count 376, sodium 137, potassium 3.8, BUN 7, creatinine 0.46, glucose 115, troponin 0.012 EKG done in the ER showed heart rate of 93, no ST segment elevation or dep ression seen, no T-wave inversions seen. Chest x-ray done in the ER no consolidations, no pleural effusions. Patient admitted to internal medicine service 12/04. Patient seen and examined. Blood work done this morning showed WBC 15.5, hemoglobin 12.3, sodium 140, potassium 4, BUN 5, creatinine 0.40 CIWA scale was 13. continues to be agitated and confused. REVIEW OF SYSTEMS: CONSTITUTIONAL: No fever, no malaise,. CARDIOVASCULAR: No chest pain, no palpitations, no syncope. PULMONARY: No shortness of breath, no cough, GASTROINTESTINAL: No diarrhea, no nausea, no vomiting, no abdominal pain. NEUROLOGICAL: No headaches, no weakness, PHYSICAL EXAMINATION: GENERAL: The patient is confused, agitated HEENT: Pupils are round and equally reacting to light. EOMI. No scleral icterus. No conjunctival pallor. Normocephalic, atraumatic. No pharyngeal erythema. No thyromegaly. CARDIOVASCULAR: S1 and S2 present. No murmurs, rubs, or gallops. PULMONARY: Chest is clear to auscultation, no wheezing or crackles. ABDOMEN: Soft, nontender, nondistended, normoactive bowel sounds. No palpable organomegaly. MUSCULOSKELETAL: No joint swelling or deformity. EXTREMITIES: No cyanosis, clubbing, or pedal edema. NEUROLOGICAL: Gross neurological examination did not reveal any focal deficits. SKIN: No rashes. Assessment and plan Left lower extremity swelling Alcohol abuse impending alcohol detox Acute metabolic encephalopathy Chest pain Hyperlipidemia History of COPD History of seizures Monitor vital signs Monitor CBC Monitor CMP Continue telemetry monitoring Trend troponins. Duplex ultrasound bilateral negative for DVT Continue IV Rocephin Continue CIWA protocol Continue high-dose thiamine and folic acid Cardiology evaluated, recommended no ischemic workup ID following Labs and medication were reviewed.. Continue same treatment. Continue with symptomatic treatment. Resume home medication. Monitor labs and vitals. DVT and GI prophylaxis. Further recommendations as per clinical course of the patient Dictation was produced using [employer] dictation software. please excuse any grammatical, word or spelling errors. Objective - Vital Signs Vital signs: Vital Signs Temp 98.3 F 12/03/23 22:53 Pulse 78 12/05/23 06:46 Resp 20 12/05/23 06:46 BP 158/90 12/05/23 06:46 Pulse Ox 98 12/05/23 06:46 FiO2 - Labs CBC & Chem 7: 12/05/23 05:56 12/05/23 05:56 Labs: Abnormal Lab Results - Last 24 Hours (Table) 12/05/23 12/05/23 Range/Units 05:56 05:56 WBC 15.5 H (3.8-10.6) k/uL RBC 3.64 L (3.80-5.40) m/uL MCV 106.1 H (80.0-100.0) fL Neutrophils # 12.2 H (1.3-7.7) k/uL Monocytes # 1.1 H (0-1.0) k/uL Chloride 113 H (98-107) mmol/L Carbon Dioxide 18 L (22-30) mmol/L BUN 5 L (7-17) mg/dL Creatinine 0.40 L (0.52-1.04) mg/dL AST 37 H (14-36) U/L
[2023-12-05] MEDS: LORazepam 1 MG TAB PO PRN ×2 (16:43→21:57)
[2023-12-06] MEDS ORDERED: ALBUTEROL NEBULIZED 2.5 MG/3 ML INHALATION PRN (08:54)
--- NOTE | 2023-12-06 08:56 | P.PN ---
Subjective patient 57-year-old lady with past medical history significant for hyperlipidemia, alcohol abuse, seizure disorder, COPD presented to ER for compla int of not feeling well for the last few days. Patient has history of heavy alcohol abuse. Patient stated that for the last few days she has not been feeling well. Patient has been complaining of left lower extremity swelling and pain. Patient stated that the left lower extremity felt very warm. Patient also complains of shortness of breath on exertion. When patient went to the ER she started complaining of intermittent chest pain. There was no complaint of palpitation. There was no clear orthopnea or PND. Initial lab work done in the ER showed WBC 7.8, hemoglobin 11.9, platelet count 376, sodium 137, potassium 3.8, BUN 7, creatinine 0.46, glucose 115, troponin 0.012 EKG done in the ER showed heart rate of 93, no ST segment elevation or depression seen, no T-wave inversions seen. Chest x-ray done in the ER no consolidations, no pleural effusions. Patient admitted to internal medicine service 12/04. Patient seen and examined. Blood work done this morning showed WBC 15.5, hemoglobin 12.3, sodium 140, potassium 4, BUN 5, creatinine 0.40 CIWA scale was 13. continues to be agitated and confused. 12/06/23 I am resuming the care of the patient today. Patient seen and examined at bedside in the emergency room 8. Patient looks confused to time place and person, speech she could not tell she is in the hospital, the date or the name of the president. She does not look to have insight into her illness. She may follow simple commands. She complains from pain in her left knee however there is no deformity or discoloration. Also left thigh but no leg swelling or pain or tenderness. She denies chest pain or dyspnea. She denies headache or dizziness. Meningeal signs are absent. Abdomen looks soft also with no abdominal pain. Patient was confused and combative, sitter at bedside for safety. She still has high CIWA score about 8-12, slightly better since admission. She is currently on CIWA protocol as well as Librium 50 mg 4 times daily. Yesterday she developed significant leukocytosis 7.8 up to 15.5 Chest x-ray on admission was negative, we will going to repeat chest x-ray as she is confused and alcoholic should be at risk of aspiration. We will check urine analysis and urine culture since it was not sent Check pro- Calcitonin and CRP also will check VBG Her bicarb is chronically low at time and has been about 17-18 during this admission [employer] evaluated the patient for atypical chest pain and sign of Currently patient on ceftriaxone 2 g, she is getting CIWA and Librium also she is on normal saline 75 mL/h Objective - Vital Signs Vital signs: Vital Signs Temp 98.7 F 12/06/23 04:15 Pulse 77 12/06/23 07:35 Resp 16 12/06/23 07:35 BP 143/92 12/06/23 07:35 Pulse Ox 97 12/06/23 07:35 FiO2 - Exam -GENERAL: The patient is alert and oriented x0, not in any acute distress. Well developed, well nourished. HEENT: Pupils are round and equally reacting to light. EOMI. No scleral icterus. No conjunctival pallor. Normocephalic, atraumatic. No pharyngeal erythema. No thyromegaly. CARDIOVASCULAR: S1 and S2 present. No murmurs, rubs, or gallops. PULMONARY: Chest is clear to auscultation, no wheezing , no crackles. ABDOMEN: Soft, nontender, nondistended, normoactive bowel sounds. No palpable organomegaly. MUSCULOSKELETAL: No joint swelling or deformity. EXTREMITIES: No cyanosis, clubbing, or pedal edema. NEUROLOGICAL: Gross neurological examination did not reveal any focal deficits. SKIN: No rashes. no petechiae. - Labs CBC & Chem 7: 12/05/23 05:56 12/05/23 05:56 Labs: Microbiology - Last 24 Hours (Table) 12/04/23 01:27 Blood Culture - Preliminary Blood 12/04/23 01:12 Blood Culture - Preliminary Blood Assessment and Plan Assessment: Alcohol withdrawal with delirium tremens Metabolic/toxic encephalopathy secondary to above. Rule out intracranial lesion. Atypical chest pain, improved Left knee and thigh pain Alcohol use disorder Leukocytosis Hyperlipidemia History of COPD History of seizure, currently on seizure medication Keppra 1000 twice daily which is resumed Plan: Continue with CIWA protocol and thiamine Patient also on Librium Continue gentle hydration Patient is on a blood culture with leukocytosis, no going to repeat sepsis wo rkup Check CT of the brain Continue with sitter at bedside DVT prophylaxis, mechanical till CT of the brain is negative GI prophylaxis Pepcid Prognosis is guarded
[2023-12-06] MEDS ORDERED: levETIRAcetam IV 1,000 MG in SODIUM CHLORIDE 0.9% 250 ML IVPB SCH (09:00)
--- NOTE | 2023-12-06 09:07 | XR ---
EXAMINATION TYPE: XR knee limited LT DATE OF EXAM: 12/06/2023 CLINICAL HISTORY: pain TECHNIQUE: 2 views of the left knee are obtained. COMPARISON: None. FINDINGS: There is no acute fracture/dislocation. The tri-compartment joint spaces appear within no rmal limits. The overlying soft tissue appears unremarkable. IMPRESSION: There is no acute fracture or dislocation ICD 10 NO FRACTURE, INITIAL EVALUATION
--- NOTE | 2023-12-06 09:10 | XR ---
EXAMINATION TYPE: XR chest 1V DATE OF EXAM: 12/06/2023 HISTORY: Shortness of breath. COMPARISON: 12/03/2023 TECHNIQUE: Single view of the chest is submitted. FINDINGS: Demonstrated are scattered senescent parenchymal change. There is no evidence for focal infiltrate. The heart is stable. Hilar and mediastinal structures are within normal limits. Degenerative changes are seen of the dorsal spine. IMPRESSION: 1. Chronic changes without evidence for acute pulmonary disease.
[2023-12-06] MEDS: MULTIVITAMINS, THERA 1 EACH TAB PO SCH (09:12)
[2023-12-06] MEDS: levETIRAcetam IV 500 MG/5 ML VIAL IVP SCH (09:13)
--- NOTE | 2023-12-06 09:21 | XR ---
EXAMINATION TYPE: XR Hip Limited LT DATE OF EXAM: 12/06/2023 CLINICAL HISTORY: Pain TECHNIQUE: Single view left hip COMPARISON: None. FINDINGS: Limited single view reveals no evidence for displaced left hip fracture. Left hip joint spa ce is within normal limits. IMPRESSION: There is no acute fracture or dislocation in the left hip.
[2023-12-06] MEDS: LOTEPREDNOL ETABONATE BOTH EYES SCH (09:47)
[2023-12-06] MEDS: FLUOROMETHOLONE 0.1% OPHTH DROPS 5 ML BTL BOTH EYES SCH (10:20)
--- NOTE | 2023-12-06 10:20 | CT ---
EXAMINATION TYPE: CT brain wo con DATE OF EXAM: 12/06/2023 COMPARISON: 11/19/2023 HISTORY: 57-year-old female confusion, AMS TECHNIQUE: Examination was done in axial plane without intravenous contrast. Coronal and sagittal r econstructions performed. CT DLP: 1184.4 mGycm Automated exposure control for dose reduction was used. FINDINGS: Mild motion artifact at the skull base. There is no evidence of acute intracranial hemorrhage, acute ischemic changes, mass, mass-effect, or extra-axial fluid collection. There is no effacement of cerebral sulci or basal subarachnoid cister ns. There is no midline shift. Tierney-white matter distinction is preserved. Similar mild generalized volume loss. Mild ventriculomegaly is also similar, Desai ratio calculated a t 0.5. Moderate patchy white matter hypodensities in both cerebral hemispheres. Paranasal sinuses and mastoid air cells well pneumatized. Orbits and globes are intact. IMPRESSION: Mild ventriculomegaly likely due to central cerebral atrophy, unchanged from recent prior. No acute i ntracranial abnormality seen. Moderate patchy burden of chronic small vessel ischemic disease.
[2023-12-06 10:37] LABS: VBG PH 7.44 (7.31-7.41)
[2023-12-06 10:38] LABS: Basophils % (A) 0 %; Eosinophils # (A) 0.1 k/uL (0-0.7); Eosinophils % (A) 1 %; HCT 39.8 % (34.0-46.0); HGB 12.6 gm/dL (11.4-16.0); Lymphocytes # (A) 1.4 k/uL (1.0-4.8); Lymphocytes % (A) 15 %; MCH 33.9 pg (25.0-35.0); MCHC 31.6 g/dL (31.0-37.0); MCV 107.3 fL (80.0-100.0); Macrocytosis Moderate; Mean Platelet Volume 8.3; Monocytes # (A) 0.6 k/uL (0-1.0); Monocytes % (A) 7 %; Neutrophils # (A) 6.6 k/uL (1.3-7.7); Neutrophils % (A) 76 %; Platelet Count 442 k/uL (150-450); RBC 3.71 m/uL (3.80-5.40); RDW 14.5 % (11.5-15.5); WBC 8.7 k/uL (3.8-10.6)
[2023-12-06 11:00] LABS: Sodium 139 mmol/L (137-145)
[2023-12-06 11:04] LABS: African American GFR (CKD) >90 (>60 ml/min/1.73 sqM); Anion Gap 5 mmol/L; Blood Urea Nitrogen 7 mg/dL (7-17); C Reactive Protein 0.9 mg/dL (<1.0); Carbon Dioxide 25 mmol/L (22-30); Chloride 109 mmol/L (98-107); Glucose 96 mg/dL (74-99); Non-African American GFR(CKD) >90 (>60 ml/min/1.73 sqM); Potassium 3.6 mmol/L (3.5-5.1)
[2023-12-06 14:04] LABS: Appearance,Urine Clear (Clear); Bilirubin,Urine Negative (Negative); Blood,Urine Negative (Negative); Color,Urine Colorless; Glucose,Urine (UA) Negative (Negative); Ketones,Urine Negative (Negative); Leukocyte Esterase,Urine Negative (Negative); Nitrite,Urine Negative (Negative); PH, Urine 7.5 (5.0-8.0); Protein,Urine Negative (Negative); Urobilinogen,Urine <2.0 mg/dL (<2.0)
--- NOTE | 2023-12-06 18:17 | P.PN ---
Subjective Progress Note Date: 12/05/23 Principal diagnosis: Reason for follow-up is left lower extremity cellulitis and leukocytosis Patient is 57-year-old female past medical history significant for COPD seizure disorder [place] cervical cancer, anxiety bipolar depression current everyday smoker and alcoholism, patient was brought into the hospital for evaluation of not feeling well has been complaining of left lower extremity pain and swelling , There was concern for some cellulitis for the patient was started on ceftriaxone. On today's evaluation that is 12/05/2023, the patient continues to be afebrile, the patient is on room air and breathing comfortably, the Pt remains to be sleepy lethargic did not answer any question no vomiting or diarrhea reported by the nursing staff. Patient white count is slightly up to 15.5 today, creatinine 0.40 Objective - Vital Signs Vital signs: Vital Signs Temp 98.3 F 12/03/23 22:53 Pulse 84 12/05/23 11:09 Resp 18 12/05/23 11:09 BP 130/101 12/05/23 11:09 Pulse Ox 97 12/05/23 11:09 FiO2 - Exam GENERAL DESCRIPTION: Middle-aged female lying in bed in no distress RESPIRATORY SYSTEM: Unlabored breathing , decreased breath sounds at bases HEART: S1 S2 regular rate and rhythm , ABDOMEN: Soft , no tenderness EXTREMITIES: Left lower extremity minimal swelling open wound no drainage - Labs CBC & Chem 7: 12/06/23 10:04 12/06/23 10:04 Labs: Abnormal Lab Results - Last 24 Hours (Table) 12/05/23 12/05/23 Range/Units 05:56 05:56 WBC 15.5 H (3.8-10.6) k/uL RBC 3.64 L (3.80-5.40) m/uL MCV 106.1 H (80.0-100.0) fL Neutrophils # 12.2 H (1.3-7.7) k/uL Monocytes # 1.1 H (0-1.0) k/uL Chloride 113 H (98-107) mmol/L Carbon Dioxide 18 L (22-30) mmol/L BUN 5 L (7-17) mg/dL Creatinine 0.40 L (0.52-1.04) mg/dL AST 37 H (14-36) U/L Assessment and Plan (1) Penicillin allergy Current Visit: Yes Status: Acute Code(s): Z88.0 - ALLERGY STATUS TO PENICILLIN SNOMED Code(s): 63580381 (2) Left leg cellulitis Current Visit: Yes Status: Acute Code(s): L03.116 - CELLULITIS OF LEFT LOWER LIMB SNOMED Code(s): 10162091454211083 (3) Leukocytosis Current Visit: Yes Status: Acute Code(s): D72.829 - ELEVATED WHITE BLOOD CELL COUNT, UNSPECIFIED SNOMED Code(s): 593950846 Plan: 1patient with multiple comorbidities presenting to the hospital concerning for not feeling well also complaining of some left lower extremity swelling with concern for possible cellulitis Doppler ultrasound was negative for any DVT possibly mild cellulitis likely from gram-positive skin jael 2-penicillin allergy 3-patient did have slight worsening of the white count and moderate close with for now continue with Rocephin 2 g daily Dictation was produced using [employer] dictation software. please excuse any grammatical, word or spelling errors. Time with Patient: Less than 30
--- NOTE | 2023-12-06 18:18 | P.PN ---
Subjective Progress Note Date: 12/06/23 Principal diagnosis: Reason for follow-up is left lower extremity cellulitis and leukocytosis Patient is 57-year-old female past medical history significant for COPD seizure disorder [place] cervical cancer, anxiety bipolar depression current everyday smoker and alcoholism, patient was brought into the hospital for evaluation of not feeling well has been complaining of left lower extremity pain and swelling , There was concern for some cellulitis for the patient was started on ceftriaxone. On today's evaluation that is 12/06/2023, Patient is afebrile patient is curre ntly on room air and in no distress the patient is pleasantly confused not a very good historian no vomiting diarrhea or any other changes reported by the nursing staff. Patient white normalized to 8.7, creatinine 0.44 UA negative blood culture so far negative Objective - Vital Signs Vital signs: Vital Signs Temp 97.6 F 12/06/23 10:25 Pulse 77 12/06/23 10:25 Resp 16 12/06/23 10:25 BP 146/79 12/06/23 10:25 Pulse Ox 98 12/06/23 10:25 FiO2 - Exam GENERAL DESCRIPTION: Middle-aged female lying in bed in no distress RESPIRATORY SYSTEM: Unlabored breathing , decreased breath sounds at bases HEART: S1 S2 regular rate and rhythm , ABDOMEN: Soft , no tenderness EXTREMITIES: Left lower extremity minimal swelling open wound no drainage - Labs CBC & Chem 7: 12/06/23 10:04 12/06/23 10:04 Labs: Abnormal Lab Results - Last 24 Hours (Table) 12/06/23 12/06/23 12/06/23 Range/Units 10:04 10:04 10:04 RBC 3.71 L (3.80-5.40) m/uL MCV 107.3 H (80.0-100.0) fL VBG pH 7.44 H (7.31-7.41) Chloride 109 H (98-107) mmol/L Creatinine 0.44 L (0.52-1.04) mg/dL Microbiology - Last 24 Hours (Table) 12/04/23 01:27 Blood Culture - Preliminary Blood 12/04/23 01:12 Blood Culture - Preliminary Blood Assessment and Plan (1) Penicillin allergy Current Visit: Yes Status: Acute Code(s): Z88.0 - ALLERGY STATUS TO PENICILLIN SNOMED Code(s): 60761508 (2) Left leg cellulitis Current Visit: Yes Status: Acute Code(s): L03.116 - CELLULITIS OF LEFT LOWER LIMB SNOMED Code(s): 00459750648194535 Plan: 1patient with multiple comorbidities presenting to the hospital concerning for not feeling well also complaining of some left lower extremity swelling with concern for possible cellulitis Doppler ultrasound was negative for any DVT possibly mild cellulitis likely from gram-positive skin jael 2-penicillin allergy 3-patient white count has normalized blood cultures were pending continue Rocephin and monitor clinical course closely Dictation was produced using [employer] dictation software. please excuse any grammatical, word or spelling errors. Time with Patient: Less than 30
[2023-12-06] MEDS: MIRTAZAPINE 15 MG TAB PO SCH (23:04)
[2023-12-06] MEDS: HEPARIN SODIUM,PORCINE 5,000 UNIT/ML 1 ML VIAL SQ SCH (23:04)
[2023-12-06] MEDS: ATORVASTATIN 20 MG TAB PO SCH (23:24)
[2023-12-07 08:29] LABS: Basophils # (A) 0.07 X 10*3/uL (0.00-0.10); Basophils % (A) 0.7 %; Eosinophils # (A) 0.09 X 10*3/uL (0.04-0.35); Eosinophils % (A) 0.9 %; HCT 33.5 % (37.2-46.3); HGB 11.1 g/dL (12.0-15.0); Lymphocytes # (A) 2.11 X 10*3/uL (0.90-5.00); Lymphocytes % (A) 21.1 %; MCH 34.6 pg (27.0-32.0); MCHC 33.1 g/dL (32.0-37.0); MCV 104.4 FL (80.0-97.0); Mean Platelet Volume 10.6 FL (9.5-12.2); Monocytes # (A) 0.94 X 10*3/uL (0.20-1.00); Monocytes % (A) 9.4 %; NRBC Per 100 WBC 0 X 10*3/uL (0.00-0.01); Neutrophils # (A) 6.62 X 10*3/uL (1.80-7.70); Neutrophils % (A) 66.1 %; Platelet Count 427 X 10*3/uL (140-440); RBC 3.21 X 10*6/uL (4.10-5.20); RDW 14.1 % (11.5-14.5); WBC 10.01 X 10*3/uL (4.50-10.00)
[2023-12-07 08:33] LABS: BUN/Creat Ratio 24.25 Ratio (12.00-20.00); Blood Urea Nitrogen 9.7 mg/dL (9.0-27.0); Carbon Dioxide 24.9 mmol/L (21.6-31.8); Chloride 109 mmol/L (96-109); Glucose 102 mg/dL (70-110); Potassium 3.3 mmol/L (3.5-5.5); Sodium 142 mmol/L (135-145)
--- NOTE | 2023-12-07 10:18 | CDI ---
Documentation Clarification Form Date: 12/07/2023 09:53:05 AM From: Brittni Estrella RN CCDS Phone: [phone] Admit Date: 12/04/2023 12:58:00 AM Patient Name: Zuri Santo Visit Number: [id number] Discharge Date: ATTENTION: The Clinical Documentation Specialists (CDI) and [facility] Coding Staff appreciate your assistance in clarifying documentation. Please respond to the clarification below the line at the bottom and electronically sign. The CDI & [facility] Coding staff will review the response and follow-up if needed. Please note: Queries are made part of the Legal Health Record. If you have any questions, please contact the author of this message via ITS. Dr. Rivera E Sheet The patients principal diagnosis the diagnosis that was chiefly responsible for the admission - has not been clearly identified and clarification is requested. The patient presented with the following not feeling well for a few days with shortness of breath on exertion and left leg pain. History/Risk factors: 57 year old female with a medical history of Alcohol abuse, HLD, COPD and Seizures. 12/03 Clinical Indicators: Lab findings, 12/02: Wbc 7.8, Hgb 11.9, Chl 109, Carbon dioxide 19, Bun 7, Cr 0.46, glucose 115, Total protein 6.0, BNP 545, Troponin <0.012 . 12/05 CRP 0.9 Bilateral lower extremity US, 12/03: Negative for DVT. Left knee XRAY & Left Hip Xray, 12/05: Negative for acute fracture or dislocation CXR, 12/03: Atherosclerotic disease, No consolidative changes, no pleural effusions Vital Signs, 12/02: B/P 106/75, HR 99, Temp 98.3 F Oral, RR 18, SpO2 97% ra ID note, 12/05: patient with multiple comorbidities presenting to the hospital concerning for not feeling well also complaining of some left lower extremity swelling with concern for possible cellulitis Doppler ultrasound was negative for any DVT possibly mild cellulitis likely from gram-positive skin jael. Treatment: 12/02 Duoneb Inhalation x 1; 12/02 Solumedrol iv x 1; 12/02 Valium iv x 1; 12/02 Morphine iv x 1; 12/03 Duoneb x 1 Inhalation; 12/03 Ativan iv prn ciwa protocol, 12/03 Ventolin Inhalation PRN, 12/03 0.9NS 75cc/hr; 12/03 Ceftriaxone IVPB x 1; 12/03 Ceftriaxone IVPB Q24H; 12/03 Solumedrol iv x1; 12/03 Valium IV x 1; 12/04 Librium po qid ad;12/05 Keppra ivp bid,12/05 Remeron po hs. Consults: ID consult note above In your professional opinion, can you please clarify which diagnosis, after study, was the reason chiefly responsible for the admission? [ x ] Left leg cellulitis [ ] Other, please specify [ ] Unable to determine (Template Last Revised: August 2020) MTDD
[2023-12-07] MEDS ORDERED: Magnesium Replacement Protocol 1 EACH MISC MISCELLANE PRN (11:49)
[2023-12-07] MEDS ORDERED: Potassium Replacement Protocol 1 EACH MISC MISCELLANE PRN (11:49)
--- NOTE | 2023-12-07 11:55 | P.PN ---
Subjective patient 57-year-old lady with past medical history significant for hyperlipidemia, alcohol abuse, seizure disorder, COPD presented to ER for compla int of not feeling well for the last few days. Patient has history of heavy alcohol abuse. Patient stated that for the last few days she has not been feeling well. Patient has been complaining of left lower extremity swelling and pain. Patient stated that the left lower extremity felt very warm. Patient also complains of shortness of breath on exertion. When patient went to the ER she started complaining of intermittent chest pain. There was no complaint of palpitation. There was no clear orthopnea or PND. Initial lab work done in the ER showed WBC 7.8, hemoglobin 11.9, platelet count 376, sodium 137, potassium 3.8, BUN 7, creatinine 0.46, glucose 115, troponin 0.012 EKG done in the ER showed heart rate of 93, no ST segment elevation or depression seen, no T-wave inversions seen. Chest x-ray done in the ER no consolidations, no pleural effusions. Patient admitted to internal medicine service 12/04. Patient seen and examined. Blood work done this morning showed WBC 15.5, hemoglobin 12.3, sodium 140, potassium 4, BUN 5, creatinine 0.40 CIWA scale was 13. continues to be agitated and confused. 12/06/23 I am resuming the care of the patient today. Patient seen and examined at bedside in the emergency room 8. Patient looks confused to time place and person, speech she could not tell she is in the hospital, the date or the name of the president. She does not look to have insight into her illness. She may follow simple commands. She complains from pain in her left knee however there is no deformity or discoloration. Also left thigh but no leg swelling or pain or tenderness. She denies chest pain or dyspnea. She denies headache or dizziness. Meningeal signs are absent. Abdomen looks soft also with no abdominal pain. Patient was confused and combative, sitter at bedside for safety. She still has high CIWA score about 8-12, slightly better since admission. She is currently on CIWA protocol as well as Librium 50 mg 4 times daily. Yesterday she developed significant leukocytosis 7.8 up to 15.5 Chest x-ray on admission was negative, we will going to repeat chest x-ray as she is confused and alcoholic should be at risk of aspiration. We will check urine analysis and urine culture since it was not sent Check pro- Calcitonin and CRP also will check VBG Her bicarb is chronically low at time and has been about 17-[address] Referee evaluated the patient for atypical chest pain and sign of Currently patient on ceftriaxone 2 g, she is getting CIWA and Librium also she is on normal saline 75 mL/h 12/07/2023 Patient admitted initially for left lower extremity cellulitis and alcohol withdrawal Her left lower extremity cellulitis is improving, however patient today is very confused and since yesterday when I saw her, today there is a sitter at bedside Patient herself was very sleepy hard to wake up however earlier as per staff she woke up in the morning and she took a shower and had breakfast but she was somewhat confused Patient is currently on Librium 50 mg 4 times daily which might be contributing to her drowsiness and confusion therefore we are going to lower the dose to 25 mg 3 times daily as her CIWA score is improving. Meningeal signs absent no headache no leukocytosis no hyponatremia. WBC is mildly elevated today but was normal yesterday. Patient is afebrile CT of the brain is negative for acute process, chest x-ray is negative for acute process, urine analysis is normal, procalcitonin and CRP are both within the reference range pH is slightly elevated 7.4 but pCO2 is normal Discussed with staff Objective - Vital Signs Vital signs: Vital Signs Temp 97.3 F L 12/07/23 08:43 Pulse 81 12/07/23 08:43 Resp 18 12/07/23 08:43 BP 143/91 12/07/23 08:43 Pulse Ox 97 12/07/23 08:43 FiO2 Intake & Output 12/06/23 12/07/23 12/07/23 18:59 06:59 18:59 Other: # Voids 1 # Bowel Movements 1 - Exam -GENERAL: The patient is alert and oriented x0, not in any acute distress. Well developed, well nourished. HEENT: Pupils are round and equally reacting to light. EOMI. No scleral icterus. No conjunctival pallor. Normocephalic, atraumatic. No pharyngeal erythema. No th yromegaly. CARDIOVASCULAR: S1 and S2 present. No murmurs, rubs, or gallops. PULMONARY: Chest is clear to auscultation, no wheezing , no crackles. ABDOMEN: Soft, nontender, nondistended, normoactive bowel sounds. No palpable organomegaly. MUSCULOSKELETAL: No joint swelling or deformity. EXTREMITIES: No cyanosis, clubbing, or pedal edema. NEUROLOGICAL: Gross neurological examination did not reveal any focal deficits. SKIN: No rashes. no petechiae. - Labs CBC & Chem 7: 12/07/23 05:06 12/07/23 05:06 Labs: Abnormal Lab Results - Last 24 Hours (Table) 12/07/23 12/07/23 Range/Units 05:06 05:06 WBC 10.01 H (4.50-10.00) X 10*3/uL RBC 3.21 L (4.10-5.20) X 10*6/uL Hgb 11.1 L (12.0-15.0) g/dL Hct 33.5 L (37.2-46.3) % MCV 104.4 H (80.0-97.0) FL MCH 34.6 H (27.0-32.0) pg Immature Gran # 0.18 H (0.00-0.04) X 10*3/uL Potassium 3.3 L (3.5-5.5) mmol/L Creatinine 0.4 L (0.6-1.5) mg/dL BUN/Creatinine Ratio 24.25 H (12.00-20.00) Ratio Calcium 8.0 L (8.7-10.3) mg/dL Microbiology - Last 24 Hours (Table) 12/04/23 01:12 Blood Culture - Preliminary Blood 12/04/23 01:27 Blood Culture - Preliminary Blood Assessment and Plan Assessment: Alcohol withdrawal with delirium tremens Metabolic/toxic encephalopathy secondary to above. Most likely secondary to medication effect, we lowered the Librium Left lower extremity cellulitis improving Atypical chest pain, improved Left knee and thigh pain Alcohol use disorder Leukocytosis Hyperlipidemia History of COPD History of seizure, currently on seizure medication Keppra 1000 twice daily which is resumed Plan: Continue with CIWA protocol and thiamine Patient also on Librium, start tapering off Continue gentle hydration Patient is on a blood culture with leukocytosis, improving with CRP and p rocalcitonin are negative ID team consult on the case Continue with sitter at bedside DVT prophylaxis, mechanical till CT of the brain is negative GI prophylaxis Pepcid Prognosis is guarded
--- NOTE | 2023-12-07 16:47 | P.PN ---
Subjective Progress Note Date: 12/07/23 Principal diagnosis: Reason for follow-up is left lower extremity cellulitis and leukocytosis Patient is 57-year-old female past medical history significant for COPD seizure disorder [place] cervical cancer, anxiety bipolar depression current everyday smoker and alcoholism, patient was brought into the hospital for evaluation of not feeling well has been complaining of left lower extremity pain and swelling , There was concern for some cellulitis for the patient was started on ceftriaxone. On today's evaluation that is 12/07/2023, patient has been afebrile, patient is breathing comfortably and is currently on room air, patient remains to be lethargic sleepy and did not provide any history no changes reported by the sitter at the bedside. Patient white count is 10.01, creatinine 0.4 Objective - Vital Signs Vital signs: Vital Signs Temp 98.4 F 12/07/23 14:58 Pulse 80 12/07/23 14:58 Resp 15 12/07/23 14:58 BP 122/72 12/07/23 14:58 Pulse Ox 95 12/07/23 14:58 FiO2 Intake & Output 12/06/23 12/07/23 12/07/23 18:59 06:59 18:59 Other: # Voids 1 2 # Bowel Movements 1 - Exam GENERAL DESCRIPTION: Middle-aged female lying in bed in no distress RESPIRATORY SYSTEM: Unlabored breathing , decreased breath sounds at bases HEART: S1 S2 regular rate and rhythm , ABDOMEN: Soft , no tenderness EXTREMITIES: Left lower extremity minimal swelling open wound no drainage - Labs CBC & Chem 7: 12/07/23 05:06 12/07/23 05:06 Labs: Abnormal Lab Results - Last 24 Hours (Table) 12/07/23 12/07/23 Range/Units 05:06 05:06 WBC 10.01 H (4.50-10.00) X 10*3/uL RBC 3.21 L (4.10-5.20) X 10*6/uL Hgb 11.1 L (12.0-15.0) g/dL Hct 33.5 L (37.2-46.3) % MCV 104.4 H (80.0-97.0) FL MCH 34.6 H (27.0-32.0) pg Immature Gran # 0.18 H (0.00-0.04) X 10*3/uL Potassium 3.3 L (3.5-5.5) mmol/L Creatinine 0.4 L (0.6-1.5) mg/dL BUN/Creatinine Ratio 24.25 H (12.00-20.00) Ratio Calcium 8.0 L (8.7-10.3) mg/dL Microbiology - Last 24 Hours (Table) 12/04/23 01:27 Blood Culture - Preliminary Blood 12/04/23 01:12 Blood Culture - Preliminary Blood Assessment and Plan (1) Penicillin allergy Current Visit: Yes Status: Acute Code(s): Z88.0 - ALLERGY STATUS TO PENICILLIN SNOMED Code(s): 75900758 (2) Left leg cellulitis Current Visit: Yes Status: Acute Code(s): L03.116 - CELLULITIS OF LEFT LOWER LIMB SNOMED Code(s): 32470732577993272 Plan: 1patient with multiple comorbidities presenting to the hospital concerning for not feeling well also complaining of some left lower extremity swelling with concern for possible cellulitis Doppler ultrasound was negative for any DVT possibly mild cellulitis likely from gram-positive skin jael 2-penicillin allergy 3-patient white count has normalized blood cultures has been negative so far mentation remains to be sure he may benefit from a neurology evaluation continue with Elliot Dictation was produced using [employer] dictation software. please excuse any grammatical, word or spelling errors. Time with Patient: Less than 30
[2023-12-07] MEDS: chlordiazePOXIDE 25 MG CAP PO SCH (17:06)
[2023-12-08] MEDS: OLANZapine 10 MG VIAL IM PRN
[2023-12-08] MEDS: HALOPERIDOL LACTATE 5 MG/ML 1 ML VIAL IM PRN (01:12)
--- NOTE | 2023-12-08 12:45 | P.PN ---
Subjective patient 57-year-old lady with past medical history significant for hyperlipidemia, alcohol abuse, seizure disorder, COPD presented to ER for compla int of not feeling well for the last few days. Patient has history of heavy alcohol abuse. Patient stated that for the last few days she has not been feeling well. Patient has been complaining of left lower extremity swelling and pain. Patient stated that the left lower extremity felt very warm. Patient also complains of shortness of breath on exertion. When patient went to the ER she started complaining of intermittent chest pain. There was no complaint of palpitation. There was no clear orthopnea or PND. Initial lab work done in the ER showed WBC 7.8, hemoglobin 11.9, platelet count 376, sodium 137, potassium 3.8, BUN 7, creatinine 0.46, glucose 115, troponin 0.012 EKG done in the ER showed heart rate of 93, no ST segment elevation or depression seen, no T-wave inversions seen. Chest x-ray done in the ER no consolidations, no pleural effusions. Patient admitted to internal medicine service 12/04. Patient seen and examined. Blood work done this morning showed WBC 15.5, hemoglobin 12.3, sodium 140, potassium 4, BUN 5, creatinine 0.40 CIWA scale was 13. continues to be agitated and confused. 12/06/23 I am resuming the care of the patient today. Patient seen and examined at bedside in the emergency room 8. Patient looks confused to time place and person, speech she could not tell she is in the hospital, the date or the name of the president. She does not look to have insight into her illness. She may follow simple commands. She complains from pain in her left knee however there is no deformity or discoloration. Also left thigh but no leg swelling or pain or tenderness. She denies chest pain or dyspnea. She denies headache or dizziness. Meningeal signs are absent. Abdomen looks soft also with no abdominal pain. Patient was confused and combative, sitter at bedside for safety. She still has high CIWA score about 8-12, slightly better since admission. She is currently on CIWA protocol as well as Librium 50 mg 4 times daily. Yesterday she developed significant leukocytosis 7.8 up to 15.5 Chest x-ray on admission was negative, we will going to repeat chest x-ray as she is confused and alcoholic should be at risk of aspiration. We will check urine analysis and urine culture since it was not sent Check pro- Calcitonin and CRP also will check VBG Her bicarb is chronically low at time and has been about 17-18 during this admission Piano Tuner evaluated the patient for atypical chest pain and sign of Currently patient on ceftriaxone 2 g, she is getting CIWA and Librium also she is on normal saline 75 mL/h 12/07/2023 Patient admitted initially for left lower extremity cellulitis and alcohol withdrawal Her left lower extremity cellulitis is improving, however patient today is very confused and since yesterday when I saw her, today there is a sitter at bedside Patient herself was very sleepy hard to wake up however earlier as per staff she woke up in the morning and she took a shower and had breakfast but she was somewhat confused Patient is currently on Librium 50 mg 4 times daily which might be contributing to her drowsiness and confusion therefore we are going to lower the dose to 25 mg 3 times daily as her CIWA score is improving. Meningeal signs absent no headache no leukocytosis no hyponatremia. WBC is mildly elevated today but was normal yesterday. Patient is afebrile CT of the brain is negative for acute process, chest x-ray is negative for acute process, urine analysis is normal, procalcitonin and CRP are both within the reference range pH is slightly elevated 7.4 but pCO2 is normal Discussed with staff Objective - Vital Signs Vital signs: Vital Signs Temp 97.5 F L 12/08/23 00:32 Pulse 86 12/08/23 02:00 Resp 18 12/08/23 02:00 BP 130/80 12/08/23 00:32 Pulse Ox 98 12/08/23 00:32 FiO2 Intake & Output 12/07/23 12/08/23 12/08/23 18:59 06:59 18:59 Other: Voiding Method Toilet Toilet # Voids 2 4 # Bowel Movements 1 - Exam -GENERAL: The patient is alert and oriented x0, not in any acute distress. Well developed, well nourished. HEENT: Pupils are round and equally reacting to light. EOMI. No scleral icterus. No conjunctival pallor. Normocephalic, atraumatic. No pharyngeal erythema. No thyromegaly. CARDIOVASCULAR: S1 and S2 present. No murmurs, rubs, or gallops. PULMONARY: Chest is clear to auscultation, no wheezing , no crackles. ABDOMEN: Soft, nontender, nondistended, normoactive bowel sounds. No palpable organomegaly. MUSCULOSKELETAL: No joint swelling or deformity. EXTREMITIES: No cyanosis, clubbing, or pedal edema. NEUROLOGICAL: Gross neurological examination did not reveal any focal deficits. SKIN: No rashes. no petechiae. - Labs CBC & Chem 7: 12/07/23 05:06 12/07/23 05:06 Labs: Microbiology - Last 24 Hours (Table) 12/04/23 01:27 Blood Culture - Preliminary Blood 12/04/23 01:12 Blood Culture - Preliminary Blood Assessment and Plan Assessment: Alcohol withdrawal with delirium tremens Metabolic/toxic encephalopathy secondary to above. Most likely secondary to medication effect, we lowered the Librium Left lower extremity cellulitis improving Atypical chest pain, improved Left knee and thigh pain Alcohol use disorder Leukocytosis Hyperlipidemia History of COPD History of seizure, currently on seizure medication Keppra 1000 twice daily which is resumed Plan: Continue with CIWA protocol and thiamine Patient also on Librium, at 25 mg tid Continue gentle hydration Patient is on a blood culture with leukocytosis, improving with CRP and procalcitonin are negative ID team consult on the case , on ceftriaxone Continue with sitter at bedside DVT prophylaxis, mechanical till CT of the brain is negative GI prophylaxis Pepcid Prognosis is guarded
--- NOTE | 2023-12-09 13:22 | P.PN ---
Subjective patient 57-year-old lady with past medical history significant for hyperlipidemia, alcohol abuse, seizure disorder, COPD presented to ER for compla int of not feeling well for the last few days. Patient has history of heavy alcohol abuse. Patient stated that for the last few days she has not been feeling well. Patient has been complaining of left lower extremity swelling and pain. Patient stated that the left lower extremity felt very warm. Patient also complains of shortness of breath on exertion. When patient went to the ER she started complaining of intermittent chest pain. There was no complaint of palpitation. There was no clear orthopnea or PND. Initial lab work done in the ER showed WBC 7.8, hemoglobin 11.9, platelet count 376, sodium 137, potassium 3.8, BUN 7, creatinine 0.46, glucose 115, troponin 0.012 EKG done in the ER showed heart rate of 93, no ST segment elevation or depression seen, no T-wave inversions seen. Chest x-ray done in the ER no consolidations, no pleural effusions. Patient admitted to internal medicine service 12/04. Patient seen and examined. Blood work done this morning showed WBC 15.5, hemoglobin 12.3, sodium 140, potassium 4, BUN 5, creatinine 0.40 CIWA scale was 13. continues to be agitated and confused. 12/06/23 I am resuming the care of the patient today. Patient seen and examined at bedside in the emergency room 8. Patient looks confused to time place and person, speech she could not tell she is in the hospital, the date or the name of the president. She does not look to have insight into her illness. She may follow simple commands. She complains from pain in her left knee however there is no deformity or discoloration. Also left thigh but no leg swelling or pain or tenderness. She denies chest pain or dyspnea. She denies headache or dizziness. Meningeal signs are absent. Abdomen looks soft also with no abdominal pain. Patient was confused and combative, sitter at bedside for safety. She still has high CIWA score about 8-12, slightly better since admission. She is currently on CIWA protocol as well as Librium 50 mg 4 times daily. Yesterday she developed significant leukocytosis 7.8 up to 15.5 Chest x-ray on admission was negative, we will going to repeat chest x-ray as she is confused and alcoholic should be at risk of aspiration. We will check urine analysis and urine culture since it was not sent Check pro- Calcitonin and CRP also will check VBG Her bicarb is chronically low at time and has been about 17-18 during this admission Property Economist evaluated the patient for atypical chest pain and sign of Currently patient on ceftriaxone 2 g, she is getting CIWA and Librium also she is on normal saline 75 mL/h 12/07/2023 Patient admitted initially for left lower extremity cellulitis and alcohol withdrawal Her left lower extremity cellulitis is improving, however patient today is very confused and since yesterday when I saw her, today there is a sitter at bedside Patient herself was very sleepy hard to wake up however earlier as per staff she woke up in the morning and she took a shower and had breakfast but she was somewhat confused Patient is currently on Librium 50 mg 4 times daily which might be contributing to her drowsiness and confusion therefore we are going to lower the dose to 25 mg 3 times daily as her CIWA score is improving. Meningeal signs absent no headache no leukocytosis no hyponatremia. WBC is mildly elevated today but was normal yesterday. Patient is afebrile CT of the brain is negative for acute process, chest x-ray is negative for acute process, urine analysis is normal, procalcitonin and CRP are both within the reference range pH is slightly elevated 7.4 but pCO2 is normal Discussed with staff 12/07/26 Patient started waking up today, she is sitting up in bed, awake eating her lunch by herself, still mildly confused, patient has poor dentition. She denies specific complaint We will lower her Librium 25 mg down to 20 mg 3 times daily. Vital stable Will check labs tomorrow Remains on cellulitis with ID team on the case Objective - Vital Signs Vital signs: Vital Signs Temp 97.3 F L 12/09/23 07:55 Pulse 90 12/09/23 07:55 Resp 18 12/09/23 07:55 BP 158/80 12/09/23 07:55 Pulse Ox 98 12/09/23 07:55 FiO2 Intake & Output 12/08/23 12/09/23 12/09/23 18:59 06:59 18:59 Intake Total 118 Balance 118 Intake: Oral 118 Other: Voiding Method Bedside Commode Bedside Commode Diaper Diaper # Voids 5 2 # Bowel Movements 1 - Exam -GENERAL: The patient is alert and oriented x0, not in any acute distress. Well developed, well nourished. HEENT: Pupils are round and equally reacting to light. EOMI. No scleral icterus. No conjunctival pallor. Normocephalic, atraumatic. No pharyngeal erythema. No thyromegaly. CARDIOVASCULAR: S1 and S2 present. No murmurs, rubs, or gallops. PULMONARY: Chest is clear to auscultation, no wheezing , no crackles. ABDOMEN: Soft, nontender, nondistended, normoactive bowel sounds. No palpable organomegaly. MUSCULOSKELETAL: No joint swelling or deformity. EXTREMITIES: No cyanosis, clubbing, or pedal edema. NEUROLOGICAL: Gross neurological examination did not reveal any focal deficits. SKIN: No rashes. no petechiae. - Labs CBC & Chem 7: 12/07/23 05:06 12/07/23 05:06 Labs: Microbiology - Last 24 Hours (Table) 12/04/23 01:27 Blood Culture - Final Blood 12/04/23 01:12 Blood Culture - Final Blood Assessment and Plan Assessment: Alcohol withdrawal with delirium tremens Metabolic/toxic encephalopathy secondary to above. Most likely secondary to medication effect, we lowered the Librium Left lower extremity cellulitis improving Atypical chest pain, improved Left knee and thigh pain Alcohol use disorder Leukocytosis Hyperlipidemia History of COPD History of seizure, currently on seizure medication Keppra 1000 twice daily which is resumed Plan: Continue with CIWA protocol and thiamine Patient also on Librium, at 25 mg tid Continue gentle hydration Patient is on a blood culture with leukocytosis, improving with CRP and procalc itonin are negative ID team consult on the case , on ceftriaxone Continue with sitter at bedside DVT prophylaxis, mechanical till CT of the brain is negative GI prophylaxis Pepcid Prognosis is guarded
--- NOTE | 2023-12-09 16:26 | P.PN ---
Subjective Progress Note Date: 12/08/23 Principal diagnosis: Reason for follow-up is left lower extremity cellulitis and leukocytosis Patient is 57-year-old female past medical history significant for COPD seizure disorder [place] cervical cancer, anxiety bipolar depression current everyday smoker and alcoholism, patient was brought into the hospital for evaluation of not feeling well has been complaining of left lower extremity pain and swelling , There was concern for some cellulitis for the patient was started on ceftriaxone. On today's evaluation that is 12/08/2023, Patient continues to be afebrile pat ient is breathing comfortably on room air and no agitation has been noticed as reported by sitter at the bedside no vomiting or diarrhea reported. No new lab has been repeated today blood culture negative Objective - Vital Signs Vital signs: Vital Signs Temp 97.5 F L 12/08/23 00:32 Pulse 86 12/08/23 02:00 Resp 18 12/08/23 02:00 BP 130/80 12/08/23 00:32 Pulse Ox 98 12/08/23 00:32 FiO2 Intake & Output 12/07/23 12/08/23 12/08/23 18:59 06:59 18:59 Other: Voiding Method Toilet Toilet # Voids 2 4 # Bowel Movements 1 - Exam GENERAL DESCRIPTION: Middle-aged female lying in bed in no distress RESPIRATORY SYSTEM: Unlabored breathing , decreased breath sounds at bases HEART: S1 S2 regular rate and rhythm , ABDOMEN: Soft , no tenderness EXTREMITIES: Left lower extremity minimal swelling open wound no drainage - Labs CBC & Chem 7: 12/07/23 05:06 12/07/23 05:06 Labs: Microbiology - Last 24 Hours (Table) 12/04/23 01:27 Blood Culture - Preliminary Blood 12/04/23 01:12 Blood Culture - Preliminary Blood Assessment and Plan (1) Penicillin allergy Current Visit: Yes Status: Acute Code(s): Z88.0 - ALLERGY STATUS TO PENICILLIN SNOMED Code(s): 87740049 (2) Left leg cellulitis Current Visit: Yes Status: Acute Code(s): L03.116 - CELLULITIS OF LEFT LOWER LIMB SNOMED Code(s): 74638953805719519 Plan: 1patient with multiple comorbidities presenting to the hospital concerning for not feeling well also complaining of some left lower extremity swelling with concern for possible cellulitis Doppler ultrasound was negative for any DVT possibly mild cellulitis likely from gram-positive skin jael 2-penicillin allergy 3-patient white count has normalized blood cultures has been negative patient is Covered with Rocephin for possible cellulitis to continue Dictation was produced using [employer] dictation software. please excuse any grammatical, word or spelling errors. Time with Patient: Less than 30
--- NOTE | 2023-12-09 16:27 | P.PN ---
Subjective Progress Note Date: 12/09/23 Principal diagnosis: Reason for follow-up is left lower extremity cellulitis and leukocytosis Patient is 57-year-old female past medical history significant for COPD seizure disorder [place] cervical cancer, anxiety bipolar depression current everyday smoker and alcoholism, patient was brought into the hospital for evaluation of not feeling well has been complaining of left lower extremity pain and swelling , There was concern for some cellulitis for the patient was started on ceftriaxone. On today's evaluation that is 12/09/2023,the patient remains to be afebrile, p atient is breathing comfortably on room air, the patient is slightly more awake today however remains to be pleasantly confused mentation has been noticed no vomiting or diarrhea. Noted to have has been repeated today Objective - Vital Signs Vital signs: Vital Signs Temp 98.6 F 12/09/23 13:45 Pulse 81 12/09/23 13:45 Resp 18 12/09/23 13:45 BP 129/86 12/09/23 13:45 Pulse Ox 99 12/09/23 13:45 FiO2 Intake & Output 12/08/23 12/09/23 12/09/23 18:59 06:59 18:59 Intake Total 236 Balance 236 Intake: Oral 236 Other: Voiding Method Bedside Commode Bedside Commode Diaper Diaper # Voids 5 2 2 # Bowel Movements 1 - Exam GENERAL DESCRIPTION: Middle-aged female lying in bed in no distress RESPIRATORY SYSTEM: Unlabored breathing , decreased breath sounds at bases HEART: S1 S2 regular rate and rhythm , ABDOMEN: Soft , no tenderness EXTREMITIES: Left lower extremity minimal swelling open wound no drainage - Labs CBC & Chem 7: 12/07/23 05:06 12/07/23 05:06 Labs: Microbiology - Last 24 Hours (Table) 12/04/23 01:27 Blood Culture - Final Blood 12/04/23 01:12 Blood Culture - Final Blood Assessment and Plan (1) Penicillin allergy Current Visit: Yes Status: Acute Code(s): Z88.0 - ALLERGY STATUS TO PENICILLIN SNOMED Code(s): 68698966 (2) Left leg cellulitis Current Visit: Yes Status: Acute Code(s): L03.116 - CELLULITIS OF LEFT LOWER LIMB SNOMED Code(s): 89715174150243690 Plan: 1patient with multiple comorbidities presenting to the hospital concerning for not feeling well also complaining of some left lower extremity swelling with concern for possible cellulitis Doppler ultrasound was negative for any DVT possibly mild cellulitis likely from gram-positive skin jael 2-penicillin allergy 3-patient white count has normalized blood cultures has been negative 3-patient did have some improvement in mentation to continue with Rocephin for possible cellulitis and monitor clinical course closely Dictation was produced using [email or web address] dictation software. please excuse any grammatical, word or spelling errors. Time with Patient: Less than 30
[2023-12-10 10:41] LABS: Blood Urea Nitrogen 5.8 mg/dL (9.0-27.0); Calcium 9.3 mg/dL (8.7-10.3); Carbon Dioxide 23.1 mmol/L (21.6-31.8); Chloride 109 mmol/L (96-109); Glucose 87 mg/dL (70-110); Magnesium 1.7 mg/dL (1.5-2.4); Potassium 3.8 mmol/L (3.5-5.5); Sodium 144 mmol/L (135-145)
[2023-12-10 13:57] VITALS: BMI 22.4
--- NOTE | 2023-12-10 16:25 | P.PN ---
Subjective Progress Note Date: 12/10/23 Principal diagnosis: Reason for follow-up is left lower extremity cellulitis and leukocytosis Patient is 57-year-old female past medical history significant for COPD seizure disorder [place] cervical cancer, anxiety bipolar depression current everyday smoker and alcoholism, patient was brought into the hospital for evaluation of not feeling well has been complaining of left lower extremity pain and swelling , There was concern for some cellulitis for the patient was started on ceftriaxone. On today's evaluation that is 12/10/2023,the patient remains to be afebrile, p atient is on room air not requiring supplemental oxygen patient has received sedation and currently sleepy did not provide any history no vomiting or diarrhea reported by the sitter at the bedside. Patient did have a creatinine 0.4 blood culture negative Objective - Vital Signs Vital signs: Vital Signs Temp 97.5 F L 12/10/23 07:17 Pulse 65 12/10/23 07:17 Resp 16 12/10/23 07:17 BP 126/78 12/10/23 07:17 Pulse Ox 99 12/10/23 07:17 FiO2 Intake & Output 12/09/23 12/10/23 12/10/23 18:59 06:59 18:59 Intake Total 986 Balance 986 Intake: Oral 986 Other: Voiding Method Bedside Commode Bedside Commode Diaper Diaper # Voids 2 3 # Bowel Movements 0 - Exam GENERAL DESCRIPTION: Middle-aged female lying in bed in no distress RESPIRATORY SYSTEM: Unlabored breathing , decreased breath sounds at bases HEART: S1 S2 regular rate and rhythm , ABDOMEN: Soft , no tenderness EXTREMITIES: Left lower extremity minimal swelling open wound no drainage - Labs CBC & Chem 7: 12/07/23 05:06 12/10/23 06:28 Labs: Abnormal Lab Results - Last 24 Hours (Table) 12/10/23 Range/Units 06:28 BUN 5.8 L (9.0-27.0) mg/dL Creatinine 0.4 L (0.6-1.5) mg/dL Microbiology - Last 24 Hours (Table) 12/04/23 01:27 Blood Culture - Final Blood 12/04/23 01:12 Blood Culture - Final Blood Assessment and Plan (1) Penicillin allergy Current Visit: Yes Status: Acute Code(s): Z88.0 - ALLERGY STATUS TO PENICILLIN SNOMED Code(s): 43561864 (2) Left leg cellulitis Current Visit: Yes Status: Acute Code(s): L03.116 - CELLULITIS OF LEFT LOWER LIMB SNOMED Code(s): 24749910528828417 Plan: 1patient with multiple comorbidities presenting to the hospital concerning for not feeling well also complaining of some left lower extremity swelling with concern for possible cellulitis Doppler ultrasound was negative for any DVT possibly mild cellulitis likely from gram-positive skin jael 2-penicillin allergy 3-patient white count has normalized blood cultures has been negative 3-patient did have persistent mental status changes may benefit from neurology evaluation currently on Rocephin to continue Dictation was produced using [employer] dictation software. please excuse any grammatical, word or spelling errors. Time with Patient: Less than 30
[2023-12-10] MEDS ORDERED: QUEtiapine 25 MG TAB PO PRN (17:58)
--- NOTE | 2023-12-10 18:03 | P.PN ---
Subjective patient 57-year-old lady with past medical history significant for hyperlipidemia, alcohol abuse, seizure disorder, COPD presented to ER for compla int of not feeling well for the last few days. Patient has history of heavy alcohol abuse. Patient stated that for the last few days she has not been feeling well. Patient has been complaining of left lower extremity swelling and pain. Patient stated that the left lower extremity felt very warm. Patient also complains of shortness of breath on exertion. When patient went to the ER she started complaining of intermittent chest pain. There was no complaint of palpitation. There was no clear orthopnea or PND. Initial lab work done in the ER showed WBC 7.8, hemoglobin 11.9, platelet count 376, sodium 137, potassium 3.8, BUN 7, creatinine 0.46, glucose 115, troponin 0.012 EKG done in the ER showed heart rate of 93, no ST segment elevation or depression seen, no T-wave inversions seen. Chest x-ray done in the ER no consolidations, no pleural effusions. Patient admitted to internal medicine service 12/04. Patient seen and examined. Blood work done this morning showed WBC 15.5, hemoglobin 12.3, sodium 140, potassium 4, BUN 5, creatinine 0.40 CIWA scale was 13. continues to be agitated and confused. 12/06/23 I am resuming the care of the patient today. Patient seen and examined at bedside in the emergency room 8. Patient looks confused to time place and person, speech she could not tell she is in the hospital, the date or the name of the president. She does not look to have insight into her illness. She may follow simple commands. She complains from pain in her left knee however there is no deformity or discoloration. Also left thigh but no leg swelling or pain or tenderness. She denies chest pain or dyspnea. She denies headache or dizziness. Meningeal signs are absent. Abdomen looks soft also with no abdominal pain. Patient was confused and combative, sitter at bedside for safety. She still has high CIWA score about 8-12, slightly better since admission. She is currently on CIWA protocol as well as Librium 50 mg 4 times daily. Yesterday she developed significant leukocytosis 7.8 up to 15.5 Chest x-ray on admission was negative, we will going to repeat chest x-ray as she is confused and alcoholic should be at risk of aspiration. We will check urine analysis and urine culture since it was not sent Check pro- Calcitonin and CRP also will check VBG Her bicarb is chronically low at time and has been about 17-18 during this admission Staffing Associate evaluated the patient for atypical chest pain and sign of Currently patient on ceftriaxone 2 g, she is getting CIWA and Librium also she is on normal saline 75 mL/h 12/07/2023 Patient admitted initially for left lower extremity cellulitis and alcohol withdrawal Her left lower extremity cellulitis is improving, however patient today is very confused and since yesterday when I saw her, today there is a sitter at bedside Patient herself was very sleepy hard to wake up however earlier as per staff she woke up in the morning and she took a shower and had breakfast but she was somewhat confused Patient is currently on Librium 50 mg 4 times daily which might be contributing to her drowsiness and confusion therefore we are going to lower the dose to 25 mg 3 times daily as her CIWA score is improving. Meningeal signs absent no headache no leukocytosis no hyponatremia. WBC is mildly elevated today but was normal yesterday. Patient is afebrile CT of the brain is negative for acute process, chest x-ray is negative for acute process, urine analysis is normal, procalcitonin and CRP are both within the reference range pH is slightly elevated 7.4 but pCO2 is normal Discussed with staff 12/07/26 Patient started waking up today, she is sitting up in bed, awake eating her lunch by herself, still mildly confused, patient has poor dentition. She denies specific complaint We will lower her Librium 25 mg down to 20 mg 3 times daily. 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 Earlier she was awake and able to eat She is still on Librium 20 mg 3 times daily we are going to lowered to twice daily as part of the taper At the same time we added Seroquel 25 mg nightly as and 25 mg twice daily as needed She is on ceftriaxone Objective - Vital Signs Vital signs: Vital Signs Temp 97.5 F L 12/10/23 07:17 Pulse 65 12/10/23 07:17 Resp 16 12/10/23 07:17 BP 126/78 12/10/23 07:17 Pulse Ox 99 12/10/23 07:17 FiO2 Intake & Output 12/09/23 12/10/23 12/10/23 18:59 06:59 18:59 Intake Total 986 Balance 986 Weight 52.163 kg Intake: Oral 986 Other: Voiding Method Bedside Commode Bedside Commode Diaper Diaper # Voids 2 3 # Bowel Movements 0 - Exam -GENERAL: The patient is alert and oriented x0, not in any acute distress. Well developed, well nourished. HEENT: Pupils are round and equally reacting to light. EOMI. No scleral icterus. No conjunctival pallor. Normocephalic, atraumatic. No pharyngeal erythema. No thyromegaly. CARDIOVASCULAR: S1 and S2 present. No murmurs, rubs, or gallops. PULMONARY: Chest is clear to auscultation, no wheezing , no crackles. ABDOMEN: Soft, nontender, nondistended, normoactive bowel sounds. No palpable organomegaly. MUSCULOSKELETAL: No joint swelling or deformity. EXTREMITIES: No cyanosis, clubbing, or pedal edema. NEUROLOGICAL: Gross neurological examination did not reveal any focal deficits. SKIN: No rashes. no petechiae. - Labs CBC & Chem 7: 12/07/23 05:06 12/10/23 06:28 Labs: Abnormal Lab Results - Last 24 Hours (Table) 12/10/23 Range/Units 06:28 BUN 5.8 L (9.0-27.0) mg/dL Creatinine 0.4 L (0.6-1.5) mg/dL Microbiology - Last 24 Hours (Table) 12/04/23 01:27 Blood Culture - Final Blood 12/04/23 01:12 Blood Culture - Final Blood Assessment and Plan Assessment: Alcohol withdrawal with delirium tremens Metabolic/toxic encephalopathy secondary to above. Most likely secondary to medication effect, we lowered the Librium Left lower extremity cellulitis improving Atypical chest pain, improved Left knee and thigh pain Alcohol use disorder Leukocytosis Hyperlipidemia History of COPD History of seizure, currently on seizure medication Keppra 1000 twice daily which is resumed Plan: Continue with CIWA protocol and thiamine Patient also on Librium, at 25 mg tid Continue gentle hydration Patient is on a blood culture with leukocytosis, improving with CRP and procalcitonin are negative ID team consult on the case , on ceftriaxone Continue with sitter at bedside DVT prophylaxis, mechanical till CT of the brain is negative GI prophylaxis Pepcid Prognosis is guarded
[2023-12-10] MEDS: QUEtiapine 25 MG TAB PO SCH (20:56)
[2023-12-11] MEDS: LORazepam 1 MG TAB PO PRN (03:12)
[2023-12-11] MEDS ORDERED: QUEtiapine 50 MG TAB PO PRN (12:24)
[2023-12-11 12:40] LABS: Basophils # (A) 0.04 X 10*3/uL (0.00-0.10); Basophils % (A) 0.5 %; Eosinophils # (A) 0.11 X 10*3/uL (0.04-0.35); Eosinophils % (A) 1.5 %; HCT 34.7 % (37.2-46.3); HGB 11.3 g/dL (12.0-15.0); Lymphocytes # (A) 1.69 X 10*3/uL (0.90-5.00); Lymphocytes % (A) 22.3 %; MCH 33.6 pg (27.0-32.0); MCHC 32.6 g/dL (32.0-37.0); MCV 103.3 FL (80.0-97.0); Mean Platelet Volume 10.5 FL (9.5-12.2); Monocytes # (A) 1.16 X 10*3/uL (0.20-1.00); Monocytes % (A) 15.3 %; NRBC Per 100 WBC 0 X 10*3/uL (0.00-0.01); Neutrophils # (A) 4.52 X 10*3/uL (1.80-7.70); Neutrophils % (A) 59.6 %; Platelet Count 403 X 10*3/uL (140-440); RBC 3.36 X 10*6/uL (4.10-5.20); RDW 13.9 % (11.5-14.5); WBC 7.58 X 10*3/uL (4.50-10.00)
[2023-12-11 12:48] LABS: ALT 15 U/L (8-44); AST 22 U/L (13-35); Albumin 3.4 g/dL (3.8-4.9); Albumin/Globulin Ratio 1.89 Ratio (1.60-3.17); Alkaline Phosphatase 78 U/L (41-126); BUN/Creat Ratio 12.25 Ratio (12.00-20.00); Bilirubin, Conjugated <0.20 mg/dL (0.20-0.40); Blood Urea Nitrogen 4.9 mg/dL (9.0-27.0); Calcium 9.2 mg/dL (8.7-10.3); Carbon Dioxide 24.1 mmol/L (21.6-31.8); Chloride 112 mmol/L (96-109); Globulin 1.8 g/dL (1.6-3.3); Glucose 91 mg/dL (70-110); Potassium 4.3 mmol/L (3.5-5.5); Sodium 146 mmol/L (135-145); Total Bilirubin <0.2 mg/dL (0.3-1.2); Total Protein 5.2 g/dL (6.2-8.2)
[2023-12-11] MEDS: QUEtiapine 25 MG TAB PO PRN (13:12)
[2023-12-11] MEDS: QUEtiapine 25 MG TAB PO STA (15:17)
--- NOTE | 2023-12-11 15:20 | P.PN ---
Subjective Progress Note Date: 12/11/23 Principal diagnosis: Reason for follow-up is left lower extremity cellulitis and leukocytosis Patient is 57-year-old female past medical history significant for COPD seizure disorder [place] cervical cancer, anxiety bipolar depression current everyday smoker and alcoholism, patient was brought into the hospital for evaluation of not feeling well has been complaining of left lower extremity pain and swelling , There was concern for some cellulitis for the patient was started on ceftriaxone. On today's evaluation that is 12/11/2023, the patient continues to be afebrile, the patient is on room air and breathing comfortably, the Pt seems to be slightly more awake alert and asking for a cigarette no vomiting or diarrhea reported by the sitter at the bedside. Patient white count 7.58, creatinine 0.4 culture has been negative Objective - Vital Signs Vital signs: Vital Signs Temp 98.5 F 12/11/23 02:30 Pulse 83 12/11/23 02:30 Resp 16 12/11/23 02:30 BP 113/72 12/11/23 02:30 Pulse Ox 96 12/11/23 02:30 FiO2 Intake & Output 12/10/23 12/11/23 12/11/23 18:59 06:59 18:59 Intake Total 960 Balance 960 Weight 52.163 kg Intake: Oral 960 Other: Voiding Method Bedside Commode Diaper # Voids 1 3 # Bowel Movements 1 - Exam GENERAL DESCRIPTION: Middle-aged female lying in bed in no distress RESPIRATORY SYSTEM: Unlabored breathing , decreased breath sounds at bases HEART: S1 S2 regular rate and rhythm , ABDOMEN: Soft , no tenderness EXTREMITIES: Left lower extremity minimal swelling open wound no drainage - Labs CBC & Chem 7: 12/11/23 09:40 12/11/23 09:40 Labs: Abnormal Lab Results - Last 24 Hours (Table) 12/11/23 12/11/23 Range/Units 09:40 09:40 RBC 3.36 L (4.10-5.20) X 10*6/uL Hgb 11.3 L (12.0-15.0) g/dL Hct 34.7 L (37.2-46.3) % MCV 103.3 H (80.0-97.0) FL MCH 33.6 H (27.0-32.0) pg Immature Gran # 0.06 H (0.00-0.04) X 10*3/uL Monocytes # 1.16 H (0.20-1.00) X 10*3/uL Sodium 146 H (135-145) mmol/L Chloride 112 H (96-109) mmol/L BUN 4.9 L (9.0-27.0) mg/dL Creatinine 0.4 L (0.6-1.5) mg/dL Total Bilirubin <0.2 L (0.3-1.2) mg/dL Total Protein 5.2 L (6.2-8.2) g/dL Albumin 3.4 L (3.8-4.9) g/dL Assessment and Plan (1) Penicillin allergy Current Visit: Yes Status: Acute Code(s): Z88.0 - ALLERGY STATUS TO PENICILLIN SNOMED Code(s): 55580461 (2) Left leg cellulitis Current Visit: Yes Status: Acute Code(s): L03.116 - CELLULITIS OF LEFT LOWER LIMB SNOMED Code(s): 13354568187550420 Plan: 1patient with multiple comorbidities presenting to the hospital concerning for not feeling well also complaining of some left lower extremity swelling with concern for possible cellulitis Doppler ultrasound was negative for any DVT possibly mild cellulitis likely from gram-positive skin jael 2-penicillin allergy 3-patient white count has normalized blood cultures has been negative 3-patient seem to have shown some improvement as far as mentation is concerned and continue with supportive care Dictation was produced using [employer] dictation software. please excuse any grammatical, word or spelling errors. Time with Patient: Less than 30
[2023-12-11] MEDS: ALPRAZolam 0.5 MG TAB PO STA (17:42)
[2023-12-11] MEDS: LORazepam 2 MG/ML INJ IV STA ×2 (17:46→19:33)
[2023-12-11] MEDS: QUEtiapine 50 MG TAB PO SCH (20:17)
--- NOTE | 2023-12-11 21:54 | P.PN ---
Subjective patient 57-year-old lady with past medical history significant for hyperlipidemia, alcohol abuse, seizure disorder, COPD presented to ER for compla int of not feeling well for the last few days. Patient has history of heavy alcohol abuse. Patient stated that for the last few days she has not been feeling well. Patient has been complaining of left lower extremity swelling and pain. Patient stated that the left lower extremity felt very warm. Patient also complains of shortness of breath on exertion. When patient went to the ER she started complaining of intermittent chest pain. There was no complaint of palpitation. There was no clear orthopnea or PND. Initial lab work done in the ER showed WBC 7.8, hemoglobin 11.9, platelet count 376, sodium 137, potassium 3.8, BUN 7, creatinine 0.46, glucose 115, troponin 0.012 EKG done in the ER showed heart rate of 93, no ST segment elevation or depression seen, no T-wave inversions seen. Chest x-ray done in the ER no consolidations, no pleural effusions. Patient admitted to internal medicine service 12/04. Patient seen and examined. Blood work done this morning showed WBC 15.5, hemoglobin 12.3, sodium 140, potassium 4, BUN 5, creatinine 0.40 CIWA scale was 13. continues to be agitated and confused. 12/06/23 I am resuming the care of the patient today. Patient seen and examined at bedside in the emergency room 8. Patient looks confused to time place and person, speech she could not tell she is in the hospital, the date or the name of the president. She does not look to have insight into her illness. She may follow simple commands. She complains from pain in her left knee however there is no deformity or discoloration. Also left thigh but no leg swelling or pain or tenderness. She denies chest pain or dyspnea. She denies headache or dizziness. Meningeal signs are absent. Abdomen looks soft also with no abdominal pain. Patient was confused and combative, sitter at bedside for safety. She still has high CIWA score about 8-12, slightly better since admission. She is currently on CIWA protocol as well as Librium 50 mg 4 times daily. Yesterday she developed significant leukocytosis 7.8 up to 15.5 Chest x-ray on admission was negative, we will going to repeat chest x-ray as she is confused and alcoholic should be at risk of aspiration. We will check urine analysis and urine culture since it was not sent Check pro- Calcitonin and CRP also will check VBG Her bicarb is chronically low at time and has been about 17-18 during this admission Lithographic Proofer evaluated the patient for atypical chest pain and sign of Currently patient on ceftriaxone 2 g, she is getting CIWA and Librium also she is on normal saline 75 mL/h 12/07/2023 Patient admitted initially for left lower extremity cellulitis and alcohol withdrawal Her left lower extremity cellulitis is improving, however patient today is very confused and since yesterday when I saw her, today there is a sitter at bedside Patient herself was very sleepy hard to wake up however earlier as per staff she woke up in the morning and she took a shower and had breakfast but she was somewhat confused Patient is currently on Librium 50 mg 4 times daily which might be contributing to her drowsiness and confusion therefore we are going to lower the dose to 25 mg 3 times daily as her CIWA score is improving. Meningeal signs absent no headache no leukocytosis no hyponatremia. WBC is mildly elevated today but was normal yesterday. Patient is afebrile CT of the brain is negative for acute process, chest x-ray is negative for acute process, urine analysis is normal, procalcitonin and CRP are both within the reference range pH is slightly elevated 7.4 but pCO2 is normal Discussed with staff 12/07/26 Patient started waking up today, she is sitting up in bed, awake eating her lunch by herself, still mildly confused, patient has poor dentition. She denies specific complaint We will lower her Librium 25 mg down to 20 mg 3 times daily. 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 Currently she is on Librium 20 mg 3 times a day taper down to twice daily. She was agitated despite Seroquel. We have to give her small dose of Ativan once or twice at the dose of 0.5 mg each time. We will check EKG for further monitoring Discussed with staff Objective - Vital Signs Vital signs: Vital Signs Temp 98.5 F 12/11/23 02:30 Pulse 83 12/11/23 02:30 Resp 16 12/11/23 02:30 BP 113/72 12/11/23 02:30 Pulse Ox 96 12/11/23 02:30 FiO2 Intake & Output 12/11/23 12/11/23 12/12/23 06:59 18:59 06:59 Intake Total 960 Balance 960 Intake: Oral 960 Other: # Voids 3 1 # Bowel Movements 1 1 - Exam -GENERAL: The patient is alert and oriented x0, not in any acute distress. Well developed, well nourished. HEENT: Pupils are round and equally reacting to light. EOMI. No scleral icterus. No conjunctival pallor. Normocephalic, atraumatic. No pharyngeal erythema. No thyromegaly. CARDIOVASCULAR: S1 and S2 present. No murmurs, rubs, or gallops. PULMONARY: Chest is clear to auscultation, no wheezing , no crackles. ABDOMEN: Soft, nontender, nondistended, normoactive bowel sounds. No palpable organomegaly. MUSCULOSKELETAL: No joint swelling or deformity. EXTREMITIES: No cyanosis, clubbing, or pedal edema. NEUROLOGICAL: Gross neurological examination did not reveal any focal deficits. SKIN: No rashes. no petechiae. - Labs CBC & Chem 7: 12/11/23 09:40 12/11/23 09:40 Labs: Abnormal Lab Results - Last 24 Hours (Table) 12/11/23 12/11/23 Range/Units 09:40 09:40 RBC 3.36 L (4.10-5.20) X 10*6/uL Hgb 11.3 L (12.0-15.0) g/dL Hct 34.7 L (37.2-46.3) % MCV 103.3 H (80.0-97.0) FL MCH 33.6 H (27.0-32.0) pg Immature Gran # 0.06 H (0.00-0.04) X 10*3/uL Monocytes # 1.16 H (0.20-1.00) X 10*3/uL Sodium 146 H (135-145) mmol/L Chloride 112 H (96-109) mmol/L BUN 4.9 L (9.0-27.0) mg/dL Creatinine 0.4 L (0.6-1.5) mg/dL Total Bilirubin <0.2 L (0.3-1.2) mg/dL Total Protein 5.2 L (6.2-8.2) g/dL Albumin 3.4 L (3.8-4.9) g/dL Assessment and Plan Assessment: Alcohol withdrawal with delirium tremens Metabolic/toxic encephalopathy secondary to above. Most likely secondary to medication effect, we lowered the Librium Left lower extremity cellulitis improving Atypical chest pain, improved Left knee and thigh pain Alcohol use disorder Leukocytosis Hyperlipidemia History of COPD History of seizure, currently on seizure medication Keppra 1000 twice daily which is resumed Plan: Continue with CIWA protocol and thiamine Patient also on Librium, at 20 mg BID Add Seroquel Patient is on a blood culture with leukocytosis, improving ID team consult on the case , on ceftriaxone Continue with sitter at bedside DVT prophylaxis, mechanical till CT of the brain is negative GI prophylaxis Pepcid Prognosis is guarded
[2023-12-11] MEDS: traZODone HCL 50 MG TAB PO SCH (22:23)
[2023-12-12 09:26] LABS: HCT 38.6 % (37.2-46.3); HGB 12.6 g/dL (12.0-15.0); MCH 34.3 pg (27.0-32.0); MCHC 32.6 g/dL (32.0-37.0); MCV 105.2 FL (80.0-97.0); Mean Platelet Volume 11.2 FL (9.5-12.2); NRBC Per 100 WBC 0 X 10*3/uL (0.00-0.01); Platelet Count 383 X 10*3/uL (140-440); RBC 3.67 X 10*6/uL (4.10-5.20); RDW 13.6 % (11.5-14.5); WBC 10.17 X 10*3/uL (4.50-10.00)
[2023-12-12 10:19] LABS: BUN/Creat Ratio 11.25 Ratio (12.00-20.00); Blood Urea Nitrogen 4.5 mg/dL (9.0-27.0); Calcium 9.9 mg/dL (8.7-10.3); Carbon Dioxide 20.6 mmol/L (21.6-31.8); Chloride 111 mmol/L (96-109); Glucose 97 mg/dL (70-110); Potassium 3.9 mmol/L (3.5-5.5); Sodium 148 mmol/L (135-145)
[2023-12-12 10:38] LABS: Basophils # (A) 0.06 X 10*3/uL (0.00-0.10); Basophils % (A) 0.6 %; Lymphocytes # (A) 2.18 X 10*3/uL (0.90-5.00); Lymphocytes % (A) 21.4 %; Monocytes # (A) 1.63 X 10*3/uL (0.20-1.00); Neutrophils # (A) 6.13 X 10*3/uL (1.80-7.70); Neutrophils % (A) 60.3 %; RBC Morphology Normal (Normal)
--- NOTE | 2023-12-12 16:13 | P.PN ---
Subjective Progress Note Date: 12/12/23 Principal diagnosis: Reason for follow-up is left lower extremity cellulitis and leukocytosis Patient is 57-year-old female past medical history significant for COPD seizure disorder [place] cervical cancer, anxiety bipolar depression current everyday smoker and alcoholism, patient was brought into the hospital for evaluation of not feeling well has been complaining of left lower extremity pain and swelling , There was concern for some cellulitis for the patient was started on ceftriaxone. On today's evaluation that is 12/12/2023, Patient is afebrile patient is curre ntly on room air and breathing comfortably patient has received Seroquel for agitation and is currently sleepy no vomiting diarrhea no change reported by nursing staff. Patient white count is 10.17, creatinine 0.4 cultures has been negative Objective - Vital Signs Vital signs: Vital Signs Temp 98.2 F 12/12/23 12:56 Pulse 72 12/12/23 12:56 Resp 16 12/12/23 12:56 BP 126/80 12/12/23 12:56 Pulse Ox 98 12/12/23 12:56 FiO2 Intake & Output 12/11/23 12/12/23 12/12/23 18:59 06:59 18:59 Other: # Voids 1 # Bowel Movements 1 - Exam GENERAL DESCRIPTION: Middle-aged female lying in bed in no distress RESPIRATORY SYSTEM: Unlabored breathing , decreased breath sounds at bases HEART: S1 S2 regular rate and rhythm , ABDOMEN: Soft , no tenderness EXTREMITIES: Left lower extremity minimal swelling open wound no drainage - Labs CBC & Chem 7: 12/12/23 04:21 12/12/23 04:21 Labs: Abnormal Lab Results - Last 24 Hours (Table) 12/12/23 12/12/23 Range/Units 04:21 04:21 WBC 10.17 H (4.50-10.00) X 10*3/uL RBC 3.67 L (4.10-5.20) X 10*6/uL MCV 105.2 H (80.0-97.0) FL MCH 34.3 H (27.0-32.0) pg Immature Gran # 0.07 H (0.00-0.04) X 10*3/uL Monocytes # 1.63 H (0.20-1.00) X 10*3/uL Sodium 148 H (135-145) mmol/L Chloride 111 H (96-109) mmol/L Carbon Dioxide 20.6 L (21.6-31.8) mmol/L Anion Gap 16.40 H (4.00-12.00) mmol/L BUN 4.5 L (9.0-27.0) mg/dL Creatinine 0.4 L (0.6-1.5) mg/dL BUN/Creatinine Ratio 11.25 L (12.00-20.00) Ratio Assessment and Plan (1) Penicillin allergy Current Visit: Yes Status: Acute Code(s): Z88.0 - ALLERGY STATUS TO PENICILLIN SNOMED Code(s): 57656053 (2) Left leg cellulitis Current Visit: Yes Status: Acute Code(s): L03.116 - CELLULITIS OF LEFT LOWER LIMB SNOMED Code(s): 60574445821625897 Plan: 1patient with multiple comorbidities presenting to the hospital concerning for not feeling well also complaining of some left lower extremity swelling with concern for possible cellulitis Doppler ultrasound was negative for any DVT possibly mild cellulitis likely from gram-positive skin jael 2-penicillin allergy 3-patient white count has normalized blood cultures has been negative 3-patient has received adequate antibiotic before left lower extremity cellulitis antibiotics has been completed we will monitor closely off antibiotics Dictation was produced using [employer] dictation software. please excuse any grammatical, word or spelling errors. Time with Patient: Less than 30
--- NOTE | 2023-12-12 20:23 | P.PN ---
Subjective patient 57-year-old lady with past medical history significant for hyperlipidemia, alcohol abuse, seizure disorder, COPD presented to ER for compla int of not feeling well for the last few days. Patient has history of heavy alcohol abuse. Patient stated that for the last few days she has not been feeling well. Patient has been complaining of left lower extremity swelling and pain. Patient stated that the left lower extremity felt very warm. Patient also complains of shortness of breath on exertion. When patient went to the ER she started complaining of intermittent chest pain. There was no complaint of palpitation. There was no clear orthopnea or PND. Initial lab work done in the ER showed WBC 7.8, hemoglobin 11.9, platelet count 376, sodium 137, potassium 3.8, BUN 7, creatinine 0.46, glucose 115, troponin 0.012 EKG done in the ER showed heart rate of 93, no ST segment elevation or depression seen, no T-wave inversions seen. Chest x-ray done in the ER no consolidations, no pleural effusions. Patient admitted to internal medicine service 12/04. Patient seen and examined. Blood work done this morning showed WBC 15.5, hemoglobin 12.3, sodium 140, potassium 4, BUN 5, creatinine 0.40 CIWA scale was 13. continues to be agitated and confused. 12/06/23 I am resuming the care of the patient today. Patient seen and examined at bedside in the emergency room 8. Patient looks confused to time place and person, speech she could not tell she is in the hospital, the date or the name of the president. She does not look to have insight into her illness. She may follow simple commands. She complains from pain in her left knee however there is no deformity or discoloration. Also left thigh but no leg swelling or pain or tenderness. She denies chest pain or dyspnea. She denies headache or dizziness. Meningeal signs are absent. Abdomen looks soft also with no abdominal pain. Patient was confused and combative, sitter at bedside for safety. She still has high CIWA score about 8-12, slightly better since admission. She is currently on CIWA protocol as well as Librium 50 mg 4 times daily. Yesterday she developed significant leukocytosis 7.8 up to 15.5 Chest x-ray on admission was negative, we will going to repeat chest x-ray as she is confused and alcoholic should be at risk of aspiration. We will check urine analysis and urine culture since it was not sent Check pro- Calcitonin and CRP also will check VBG Her bicarb is chronically low at time and has been about 17-18 during this admission Relations Specialist evaluated the patient for atypical chest pain and sign of Currently patient on ceftriaxone 2 g, she is getting CIWA and Librium also she is on normal saline 75 mL/h 12/07/2023 Patient admitted initially for left lower extremity cellulitis and alcohol withdrawal Her left lower extremity cellulitis is improving, however patient today is very confused and since yesterday when I saw her, today there is a sitter at bedside Patient herself was very sleepy hard to wake up however earlier as per staff she woke up in the morning and she took a shower and had breakfast but she was somewhat confused Patient is currently on Librium 50 mg 4 times daily which might be contributing to her drowsiness and confusion therefore we are going to lower the dose to 25 mg 3 times daily as her CIWA score is improving. Meningeal signs absent no headache no leukocytosis no hyponatremia. WBC is mildly elevated today but was normal yesterday. Patient is afebrile CT of the brain is negative for acute process, chest x-ray is negative for acute process, urine analysis is normal, procalcitonin and CRP are both within the reference range pH is slightly elevated 7.4 but pCO2 is normal Discussed with staff 12/07/26 Patient started waking up today, she is sitting up in bed, awake eating her lunch by herself, still mildly confused, patient has poor dentition. She denies specific complaint We will lower her Librium 25 mg down to 20 mg 3 times daily. 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 Currently she is on Librium 20 mg 3 times a day taper down to twice daily. She was agitated despite Seroquel. We have to give her small dose of Ativan once or twice at the dose of 0.5 mg each time. We will check EKG for further monitoring Discussed with staff 12/12/2023 Patient is sleeping the whole day, she did not get her Librium dose this morning so it was discontinued She is getting Seroquel 50 mg at bedtime plus trazodone 50 methadone 50 mg started yesterday. Sitter remains at bedside To taper her off benzodiazepine to improve her mentation On reviewing home medication she was not on benzodiazepine Objective - Vital Signs Vital signs: Vital Signs Temp 98.2 F 12/12/23 12:56 Pulse 72 12/12/23 12:56 Resp 16 12/12/23 12:56 BP 126/80 12/12/23 12:56 Pulse Ox 98 12/12/23 12:56 FiO2 Intake & Output 12/11/23 12/12/23 12/12/23 18:59 06:59 18:59 Other: # Voids 1 4 # Bowel Movements 1 1 - Exam -GENERAL: The patient is alert and oriented x0, not in any acute distress. Well developed, well nourished. HEENT: Pupils are round and equally reacting to light. EOMI. No scleral icterus. No conjunctival pallor. Normocephalic, atraumatic. No pharyngeal erythema. No thyromegaly. CARDIOVASCULAR: S1 and S2 present. No murmurs, rubs, or gallops. PULMONARY: Chest is clear to auscultation, no wheezing , no crackles. ABDOMEN: Soft, nontender, nondistended, normoactive bowel sounds. No palpable organomegaly. MUSCULOSKELETAL: No joint swelling or deformity. EXTREMITIES: No cyanosis, clubbing, or pedal edema. NEUROLOGICAL: Gross neurological examination did not reveal any focal deficits. SKIN: No rashes. no petechiae. - Labs CBC & Chem 7: 12/12/23 04:21 12/12/23 04:21 Labs: Abnormal Lab Results - Last 24 Hours (Table) 12/12/23 12/12/23 Range/Units 04:21 04:21 WBC 10.17 H (4.50-10.00) X 10*3/uL RBC 3.67 L (4.10-5.20) X 10*6/uL MCV 105.2 H (80.0-97.0) FL MCH 34.3 H (27.0-32.0) pg Immature Gran # 0.07 H (0.00-0.04) X 10*3/uL Monocytes # 1.63 H (0.20-1.00) X 10*3/uL Sodium 148 H (135-145) mmol/L Chloride 111 H (96-109) mmol/L Carbon Dioxide 20.6 L (21.6-31.8) mmol/L Anion Gap 16.40 H (4.00-12.00) mmol/L BUN 4.5 L (9.0-27.0) mg/dL Creatinine 0.4 L (0.6-1.5) mg/dL BUN/Creatinine Ratio 11.25 L (12.00-20.00) Ratio Assessment and Plan Assessment: Alcohol withdrawal with delirium tremens Metabolic/toxic encephalopathy secondary to above. Most likely secondary to medication effect, we lowered the Librium Left lower extremity cellulitis improving Atypical chest pain, improved Left knee and thigh pain Alcohol use disorder Leukocytosis Hyperlipidemia History of COPD History of seizure, currently on seizure medication Keppra 1000 twice daily which is resumed Plan: disContinue with CIWA protocol Continue with thiamine Discontinue Librium, at 20 mg BID Add Seroquel 25 mg at bedtime and trazodone 50 mg at bedtime Patient is on a blood culture with leukocytosis, improving ID team consult on the case , on ceftriaxone Continue with sitter at bedside DVT prophylaxis, mechanical till CT of the brain is negative GI prophylaxis Pepcid Prognosis is guarded
[2023-12-12] MEDS: QUEtiapine 25 MG TAB PO SCH (20:49)
[2023-12-13 16:31] LABS: Glucose,Whole Blood 109 mg/dL (70-110)
[2023-12-13] MEDS: LORazepam 2 MG/ML INJ IV STA (16:44)
--- NOTE | 2023-12-13 17:25 | CT ---
EXAMINATION TYPE: CT brain wo con DATE OF EXAM: 12/13/2023 COMPARISON: 12/06/2023 HISTORY: pt hit her head CT DLP: 1213.4 mGycm Automated exposure control for dose reduction was used. FINDINGS: The ventricles, basal cisterns and sulci of the convexities are within normal limits and there is no mass effect or shift of the midline structures. There is no acute intra or extra-axial hemorrhage. There is mild decreased density in the periventricular white matter consistent with mild chronic isch emic white matter demyelination. The posterior fossa is grossly unremarkable. The intraorbital contents appear normal and symmetrical. Visualized paranasal sinuses and mastoid air cells are well aerated. The calvarium is intact. IMPRESSION: 1. No acute bleed or mass effect. 2. No evidence of acute trauma. IMPRESSION:
[2023-12-13] MEDS: MORPHINE SULFATE 2 MG/ML SYRINGE IVP PRN (18:29)
--- NOTE | 2023-12-14 07:10 | P.PN ---
Subjective patient 57-year-old lady with past medical history significant for hyperlipidemia, alcohol abuse, seizure disorder, COPD presented to ER for compla int of not feeling well for the last few days. Patient has history of heavy alcohol abuse. Patient stated that for the last few days she has not been feeling well. Patient has been complaining of left lower extremity swelling and pain. Patient stated that the left lower extremity felt very warm. Patient also complains of shortness of breath on exertion. When patient went to the ER she started complaining of intermittent chest pain. There was no complaint of palpitation. There was no clear orthopnea or PND. Initial lab work done in the ER showed WBC 7.8, hemoglobin 11.9, platelet count 376, sodium 137, potassium 3.8, BUN 7, creatinine 0.46, glucose 115, troponin 0.012 EKG done in the ER showed heart rate of 93, no ST segment elevation or depression seen, no T-wave inversions seen. Chest x-ray done in the ER no consolidations, no pleural effusions. Patient admitted to internal medicine service 12/04. Patient seen and examined. Blood work done this morning showed WBC 15.5, hemoglobin 12.3, sodium 140, potassium 4, BUN 5, creatinine 0.40 CIWA scale was 13. continues to be agitated and confused. 12/06/23 I am resuming the care of the patient today. Patient seen and examined at bedside in the emergency room 8. Patient looks confused to time place and person, speech she could not tell she is in the hospital, the date or the name of the president. She does not look to have insight into her illness. She may follow simple commands. She complains from pain in her left knee however there is no deformity or discoloration. Also left thigh but no leg swelling or pain or tenderness. She denies chest pain or dyspnea. She denies headache or dizziness. Meningeal signs are absent. Abdomen looks soft also with no abdominal pain. Patient was confused and combative, sitter at bedside for safety. She still has high CIWA score about 8-12, slightly better since admission. She is currently on CIWA protocol as well as Librium 50 mg 4 times daily. Yesterday she developed significant leukocytosis 7.8 up to 15.5 Chest x-ray on admission was negative, we will going to repeat chest x-ray as she is confused and alcoholic should be at risk of aspiration. We will check urine analysis and urine culture since it was not sent Check pro- Calcitonin and CRP also will check VBG Her bicarb is chronically low at time and has been about 17-18 during this admission Filters Assembler evaluated the patient for atypical chest pain and sign of Currently patient on ceftriaxone 2 g, she is getting CIWA and Librium also she is on normal saline 75 mL/h 12/07/2023 Patient admitted initially for left lower extremity cellulitis and alcohol withdrawal Her left lower extremity cellulitis is improving, however patient today is very confused and since yesterday when I saw her, today there is a sitter at bedside Patient herself was very sleepy hard to wake up however earlier as per staff she woke up in the morning and she took a shower and had breakfast but she was somewhat confused Patient is currently on Librium 50 mg 4 times daily which might be contributing to her drowsiness and confusion therefore we are going to lower the dose to 25 mg 3 times daily as her CIWA score is improving. Meningeal signs absent no headache no leukocytosis no hyponatremia. WBC is mildly elevated today but was normal yesterday. Patient is afebrile CT of the brain is negative for acute process, chest x-ray is negative for acute process, urine analysis is normal, procalcitonin and CRP are both within the reference range pH is slightly elevated 7.4 but pCO2 is normal Discussed with staff 12/07/26 Patient started waking up today, she is sitting up in bed, awake eating her lunch by herself, still mildly confused, patient has poor dentition. She denies specific complaint We will lower her Librium 25 mg down to 20 mg 3 times daily. 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 Currently she is on Librium 20 mg 3 times a day taper down to twice daily. She was agitated despite Seroquel. We have to give her small dose of Ativan once or twice at the dose of 0.5 mg each time. We will check EKG for further monitoring Discussed with staff 12/12/2023 Patient is sleeping the whole day, she did not get her Librium dose this morning so it was discontinued She is getting Seroquel 50 mg at bedtime plus trazodone 50 methadone 50 mg started yesterday. Sitter remains at bedside To taper her off benzodiazepine to improve her mentation On reviewing home medication she was not on benzodiazepine 12/13/2023 pt was doing well in the morning, she was calm and bedside sitter was discontinued in preparation for discharge The afternoon patient become more agitated and violent with the staff and as per nurse patient was lying in bed after that for 4 minutes with her eyes rolled up which what looks like a seizure to the bedside nurse Also is there is some reports of hitting her head during this time. We obtained CT of the brain which was negative for acute process 1 mg of IV Ativan is given Patient is already on Keppra At nighttime she is getting Seroquel and trazodone Objective - Vital Signs Vital signs: Vital Signs Temp 98.1 F 12/13/23 13:41 Pulse 87 12/13/23 13:41 Resp 20 12/13/23 13:41 BP 117/76 12/13/23 13:41 Pulse Ox 98 12/13/23 13:41 FiO2 Intake & Output 12/12/23 12/13/23 12/13/23 18:59 06:59 18:59 Other: # Voids 4 1 # Bowel Movements 1 - Exam -GENERAL: The patient is alert and oriented x0, not in any acute distress. Well developed, well nourished. HEENT: Pupils are round and equally reacting to light. EOMI. No scleral icterus. No conjunctival pallor. Normocephalic, atraumatic. No pharyngeal erythema. No thyromegaly. CARDIOVASCULAR: S1 and S2 present. No murmurs, rubs, or gallops. PULMONARY: Chest is clear to auscultation, no wheezing , no crackles. ABDOMEN: Soft, nontender, nondistended, normoactive bowel sounds. No palpable organomegaly. MUSCULOSKELETAL: No joint swelling or deformity. EXTREMITIES: No cyanosis, clubbing, or pedal edema. NEUROLOGICAL: Gross neurological examination did not reveal any focal deficits. SKIN: No rashes. no petechiae. - Labs CBC & Chem 7: 12/12/23 04:21 12/12/23 04:21 Assessment and Plan Assessment: Alcohol withdrawal with delirium tremens Metabolic/toxic encephalopathy secondary to above. Most likely secondary to medication effect, we lowered the Librium Left lower extremity cellulitis improving Atypical chest pain, improved Left knee and thigh pain Alcohol use disorder Leukocytosis Hyperlipidemia History of COPD History of seizure, currently on seizure medication Keppra 1000 twice daily which is resumed Plan: pt got one dose of iv ativan ct of brain is negative consult neuro team for possible seizure , pt has h/o seizure disease on treatment , keppra Continue with thiamine on Seroquel 25 mg at bedtime and trazodone 50 mg at bedtime ID team consult on the case , on ceftriaxone Continue with sitter at bedside DVT prophylaxis, mechanical till CT of the brain is negative GI prophylaxis Pepcid Prognosis is guarded
[2023-12-14] MEDS: THIAMINE 100 MG TAB PO SCH (11:54)
--- NOTE | 2023-12-14 16:03 | P.PN ---
Subjective Progress Note Date: 12/13/23 Principal diagnosis: Reason for follow-up is left lower extremity cellulitis and leukocytosis Patient is 57-year-old female past medical history significant for COPD seizure disorder [place] cervical cancer, anxiety bipolar depression current everyday smoker and alcoholism, patient was brought into the hospital for evaluation of not feeling well has been complaining of left lower extremity pain and swelling , There was concern for some cellulitis for the patient was started on ceftriaxone. On today's evaluation that is 12/13/2023, patient has been afebrile, patient is breathing comfortably and is currently on room air, patient seemed more awake and alert today no agitation has been reported as been asking for a cigarette. No new lab has been repeated today Objective - Vital Signs Vital signs: Vital Signs Temp 98.1 F 12/13/23 13:41 Pulse 87 12/13/23 13:41 Resp 20 12/13/23 13:41 BP 117/76 12/13/23 13:41 Pulse Ox 98 12/13/23 13:41 FiO2 Intake & Output 12/12/23 12/13/23 12/13/23 18:59 06:59 18:59 Other: # Voids 4 1 3 # Bowel Movements 1 1 - Exam GENERAL DESCRIPTION: Middle-aged female lying in bed in no distress RESPIRATORY SYSTEM: Unlabored breathing , decreased breath sounds at bases HEART: S1 S2 regular rate and rhythm , ABDOMEN: Soft , no tenderness EXTREMITIES: Left lower extremity minimal swelling open wound no drainage - Labs CBC & Chem 7: 12/12/23 04:21 12/12/23 04:21 Assessment and Plan (1) Penicillin allergy Current Visit: Yes Status: Acute Code(s): Z88.0 - ALLERGY STATUS TO PENICILLIN SNOMED Code(s): 09173554 (2) Left leg cellulitis Current Visit: Yes Status: Acute Code(s): L03.116 - CELLULITIS OF LEFT LOWER LIMB SNOMED Code(s): 41090410815162854 Plan: 1patient with multiple comorbidities presenting to the hospital concerning for not feeling well also complaining of some left lower extremity swelling with concern for possible cellulitis Doppler ultrasound was negative for any DVT possibly mild cellulitis likely from gram-positive skin jael 2-penicillin allergy 3-patient white count has normalized blood cultures has been negative 3-patient has received adequate antibiotic therapy for the left lower extremity cellulitis currently being monitored closely off antibiotic Dictation was produced using [employer] dictation software. please excuse any grammatical, word or spelling errors. Time with Patient: Less than 30
--- NOTE | 2023-12-14 16:03 | P.PN ---
Subjective Progress Note Date: 12/14/23 Principal diagnosis: Reason for follow-up is left lower extremity cellulitis and leukocytosis Patient is 57-year-old female past medical history significant for COPD seizure disorder [place] cervical cancer, anxiety bipolar depression current everyday smoker and alcoholism, patient was brought into the hospital for evaluation of not feeling well has been complaining of left lower extremity pain and swelling , There was concern for some cellulitis for the patient was started on ceftriaxone. On today's evaluation that is 12/14/2023, Patient continues to be afebrile pat ient is more awake alert and is up in the chair she is breathing comfortably room air denies any chest pain no cough no vomiting or diarrhea has been reported. No new lab has been repeated today Objective - Vital Signs Vital signs: Vital Signs Temp 98.0 F 12/14/23 13:48 Pulse 102 H 12/14/23 13:48 Resp 17 12/14/23 13:48 BP 115/79 12/14/23 13:48 Pulse Ox 96 12/14/23 07:10 FiO2 Intake & Output 12/13/23 12/14/23 12/14/23 18:59 06:59 18:59 Other: # Voids 3 1 # Bowel Movements 1 - Exam GENERAL DESCRIPTION: Middle-aged female lying in bed in no distress RESPIRATORY SYSTEM: Unlabored breathing , decreased breath sounds at bases HEART: S1 S2 regular rate and rhythm , ABDOMEN: Soft , no tenderness EXTREMITIES: Left lower extremity minimal swelling open wound no drainage - Labs CBC & Chem 7: 12/12/23 04:21 12/12/23 04:21 Assessment and Plan (1) Penicillin allergy Current Visit: Yes Status: Acute Code(s): Z88.0 - ALLERGY STATUS TO PENICILLIN SNOMED Code(s): 87582743 (2) Left leg cellulitis Current Visit: Yes Status: Acute Code(s): L03.116 - CELLULITIS OF LEFT LOWER LIMB SNOMED Code(s): 45045636809559291 Plan: 1patient with multiple comorbidities presenting to the hospital concerning for not feeling well also complaining of some left lower extremity swelling with concern for possible cellulitis Doppler ultrasound was negative for any DVT possibly mild cellulitis likely from gram-positive skin jael 2-penicillin allergy 3-patient white count has normalized blood cultures has been negative 3-patient has received adequate antibiotic therapy for the left lower extremity cellulitis currently doing well off antibiotic therapy and be monitored closely family bedside questions answered Dictation was produced using [employer] dictation software. please excuse any grammatical, word or spelling errors. Time with Patient: Less than 30
--- NOTE | 2023-12-14 16:09 | P.CNNES ---
History of Present Illness Consult date: 12/14/23 Requesting physician: Miguel E Sheet Reason for Consult: possible seizure History of Present Illness: This is a 57-year-old woman with history of seizure, alcohol use, tobacco use,, COPD medication noncompliance presented emergency department on 12/04/2023 because of not feeling well and having lfet lower extremity swelling and pain. Which is consulted for possible seizure-like activity. I spoke with the patient's nurse who had her yesterday and it seems yesterday she was unresponsive and had gaze deviation upward into the right and then when the nurse sternal rub to her she immediately responded and was shouting at them. No jerking of any extremity or foaming around the mouth. I spoke with the patient and her who is at bedside. It seems that the patient is missing her medication and she continues to drink alcohol. Initially she states she does not miss her medication then after further questioning she did acknowledge that she misses her medication and she does continue to drink alcohol. She smokes a pack and a half a day daily. She has not followed up with a neurologist as an outpatient and neither does she follow-up with her primary care doctor. Her friend is at bedside and resides with her feels she is improving but is not back to baseline is close. Patient denies of any headache, focal weakness. Current the primary team she was on benzodiazepine during this admission for her alcohol withdrawal and she has been being tapered down and was eventually tapered down and stopped a couple days ago. In this hospital visit it seems that the patient has left leg cellulitis. Of note I personally saw the patient in the past and I have seen her on 11/19/2023 for breakthrough seizure. During the episode I increased her Keppra from 500 mg to 1000 mg twice a day. Refer to my note for further details. Some of the work-up during this hospital visit consisted of: Most recent sodium is 148 Serum glucose is 97 Calcium is 9.9 Last magnesium was 1.7 Ammonia is less than 9 CT head on 12/13/2023 is reported as no acute bleed or mass effect. No evidence of acute trauma. I personally reviewed the CT and I agree there is no acute or subacute ischemia or acute process appreciated. Review of Systems The positive and negative as per HPI. Past Medical History Past Medical History: COPD, Liver Disease, Myocardial Infarction (HI), Seizure Disorder, Vascular Disorder Additional Past Medical History / Comment(s): constpation, last bowel movement 4 days ago, feeling bloated,feeling of fullness, and abdominal pain, feels hungry then over eats then vomits to feel better, LAST SEIZURE - JANUARY 2021, "broken heart syndrome"., elevated liver enzymes, "dislocated disks", hx cervical cancer Last Myocardial Infarction Date:: 2019 History of Any Multi-Drug Resistant Organisms: None Reported Past Surgical History: Section, Heart Catheterization, Tubal Ligation Additional Past Surgical History / Comment(s): ORIF rt ankle/hardware later removed, exploratory lap, PAIN CLINIC PROCEDURE, BILAT CATARACTS REMOVED WITH LENS IMPLANTS, procedure to open a vein in left leg-couldn't confirm which leg, partial amputation rt hand middle finger, "procedure to remove cervical cancer" Past Anesthesia/Blood Transfusion Reactions: No Reported Reaction Past Psychological History: Anxiety, Bipolar, Depression, PTSD Smoking Status: Current every day smoker Past Alcohol Use History: Abuse, Daily, Heavy Past Drug Use History: Marijuana - Past Family History Father Family Medical History: Cancer, Prostate Disorder, Pulmonary Embolus Sister(s) Family Medical History: Cancer Brother(s) Family Medical History: Cancer Additional Family Medical History / Comment(s): colon and bladder Medications and Allergies Home Medications Medication Instructions Recorded Confirmed Type Fluorometholone 0.1% Ophth Sharmin 1 drops BOTH EYES BID 08/02/23 12/04/23 History [Fml] Loteprednol Etabonate [Alrex] 1 drop BOTH EYES BID 08/02/23 12/04/23 History Ketorolac [Toradol] 10 mg PO Q6H PRN 08/23/23 12/04/23 History Atorvastatin [Lipitor] 20 mg PO HS 09/06/23 12/04/23 History Mirtazapine [Remeron] 15 mg PO HS 09/06/23 12/04/23 History Potassium Chloride 20 meq PO DAILY #60 cap 09/07/23 12/04/23 Rx Albuterol Inhaler [Ventolin Hfa 2 puff INHALATION RT-Q6H PRN 11/18/23 12/04/23 History Inhaler] Multivitamins, Thera [Multivitamin 1 tab PO DAILY 11/18/23 12/04/23 History (formulary)] Nitroglycerin Sl Tabs [Nitrostat] 0.4 mg SL Q5M PRN 11/18/23 12/04/23 History Thiamine [Vitamin B-1] 100 mg PO DAILY@1200 #30 tab 11/20/23 12/04/23 Rx levETIRAcetam [Keppra] 1,000 mg PO BID #60 tab 11/20/23 12/04/23 Rx Allergies Allergy/AdvReac Type Severity Reaction Status Date / Time Penicillins Allergy Rash/Hives/Swelling Verified 12/04/23 12:27 all over body NSAIDS (Non-Steroidal AdvReac Unknown upset Verified 12/04/23 12:27 Anti-Inflamma stomach sertraline HCl [From Zoloft] AdvReac Suicidal/Ag Verified 12/04/23 12:27 ression Physical Examination - Vital Signs Vital Signs: Vital Signs Temp Pulse Resp BP Pulse Ox 12/14/23 13:48 98.0 F 102 H 17 115/79 12/14/23 08:58 97.7 F 83 16 139/81 12/14/23 07:10 74 18 123/78 96 12/13/23 19:43 98.1 F 84 17 144/99 100 12/13/23 16:28 86 168/100 98 Intake and Output 12/14/23 12/14/23 12/14/23 06:59 14:59 22:59 Other: # Voids 1 GENERAL: The patient is sitting in a recliner chair and is not in acute distr ess. NEUROLOGICAL: Higher mental function: The patient is midly drowsy but is awakeable to voice. I s oriented to self and place only. Is able to name his friend's name who is at bedside. Is following simple commands. No aphasia and no neglect. Cranial nerves: The pupils are round, equal and reactive to light. Visual lund are full to confrontation throughout. Extraocular movement is intact no nystagmus is noted. Facial sensation is normal to touch throughout. The facial strength is normal throughout. Hearing is normal bilaterally to hand rub. Tongue is midline and moved [id number] without any difficulty. No dysarthria is noted. Shoulder shrug is normal bilaterally. Motor: The strength is strength is 5/5 uppers and lowers lifting symmetrically above gravity. Normal tone and bulk. Cerebellum: Normal finger to nose bilaterally. Sensation: Sensation is normal to touch throughout. Reflexes (right/left): 2+ throughout and 1+ ankles. Plantars are mute bilaterally. Results - Laboratory Findings CBC and BMP: 12/12/23 04:21 12/12/23 04:21 Abnormal Lab Findings: Abnormal Labs 12/03/23 12/03/23 12/05/23 23:21 23:21 05:56 WBC 15.5 H RBC 3.46 L 3.64 L Hgb Hct MCV 105.9 H 106.1 H MCH Immature Gran # Neutrophils # 12.2 H Monocytes # 1.1 H VBG pH Sodium Potassium Chloride 109 H Carbon Dioxide 19 L Anion Gap BUN Creatinine 0.46 L BUN/Creatinine Ratio Glucose 115 H Calcium Total Bilirubin AST Total Protein 6.0 L Albumin 12/05/23 12/06/23 12/06/23 05:56 10:04 10:04 WBC RBC 3.71 L Hgb Hct MCV 107.3 H MCH Immature Gran # Neutrophils # Monocytes # VBG pH Sodium Potassium Chloride 113 H 109 H Carbon Dioxide 18 L Anion Gap BUN 5 L Creatinine 0.40 L 0.44 L BUN/Creatinine Ratio Glucose Calcium Total Bilirubin AST 37 H Total Protein Albumin 12/06/23 12/07/23 12/07/23 10:04 05:06 05:06 WBC 10.01 H RBC 3.21 L Hgb 11.1 L Hct 33.5 L MCV 104.4 H MCH 34.6 H Immature Gran # 0.18 H Neutrophils # Monocytes # VBG pH 7.44 H Sodium Potassium 3.3 L Chloride Carbon Dioxide Anion Gap BUN Creatinine 0.4 L BUN/Creatinine Ratio 24.25 H Glucose Calcium 8.0 L Total Bilirubin AST Total Protein Albumin 12/10/23 12/11/23 12/11/23 06:28 09:40 09:40 WBC RBC 3.36 L Hgb 11.3 L Hct 34.7 L MCV 103.3 H MCH 33.6 H Immature Gran # 0.06 H Neutrophils # Monocytes # 1.16 H VBG pH Sodium 146 H Potassium Chloride 112 H Carbon Dioxide Anion Gap BUN 5.8 L 4.9 L Creatinine 0.4 L 0.4 L BUN/Creatinine Ratio Glucose Calcium Total Bilirubin <0.2 L AST Total Protein 5.2 L Albumin 3.4 L 12/12/23 12/12/23 04:21 04:21 WBC 10.17 H RBC 3.67 L Hgb Hct MCV 105.2 H MCH 34.3 H Immature Gran # 0.07 H Neutrophils # Monocytes # 1.63 H VBG pH Sodium 148 H Potassium Chloride 111 H Carbon Dioxide 20.6 L Anion Gap 16.40 H BUN 4.5 L Creatinine 0.4 L BUN/Creatinine Ratio 11.25 L Glucose Calcium Total Bilirubin AST Total Protein Albumin Assessment and Plan Assessment: This is a 57-year-old woman with history of seizure, alcohol use, tobacco use, medication noncompliance who presents because of left lower extremity cellulitis on 12/03/2023. Yesterday in the late afternoon and a team was called since the patient was unresponsive and had gaze deviation upwards into the right but responded after sternal rub immediately concerning for ?seizure was on Ativan 1 mg. Benzodiazepine was weaned down eventually stopped stopped a couple days ago Questionable breakthrough seizure yesterday. Unsure if due to the cessation of benzo. Had repeat CT head and was negative for acute process. On examination has nystagmus looking to right and left of unknown etiology. History of seizure and patient does acknowledge she is noncompliant with medication and continues to use alcohol Left lower extremity cellulitis Hyponatremia Alcohol use daily Tobacco use (smokes 1.5 PPD) Medication noncompliance Plan: Ordered routine EEG Or I ordered MRI of the brain. Increased the patient Keppra from 1000 mg twice a day to 1500 mg twice a day Seizure precautions seizure pads Please avoid Will defer the rest of the medical management the primary team and other specialist Was counseled on medication compliance as well as cessation of alcohol and tobacco use Will discharge recommend the patient to follow-up with a neurologist as an outpatient within 1 to 2 weeks. Plan discussed with the patient her) was at bedside and her nurse as well as pr imary team. Thank for the consultation Time with Patient: Greater than 30
[2023-12-14] MEDS: HALOPERIDOL LACTATE 5 MG/ML 1 ML VIAL IM STA (18:13)
[2023-12-14] MEDS: levETIRAcetam IV 500 MG/5 ML VIAL IVP SCH (22:35)
--- NOTE | 2023-12-15 01:07 | P.PN ---
Subjective patient 57-year-old lady with past medical history significant for hyperlipidemia, alcohol abuse, seizure disorder, COPD presented to ER for compla int of not feeling well for the last few days. Patient has history of heavy alcohol abuse. Patient stated that for the last few days she has not been feeling well. Patient has been complaining of left lower extremity swelling and pain. Patient stated that the left lower extremity felt very warm. Patient also complains of shortness of breath on exertion. When patient went to the ER she started complaining of intermittent chest pain. There was no complaint of palpitation. There was no clear orthopnea or PND. Initial lab work done in the ER showed WBC 7.8, hemoglobin 11.9, platelet count 376, sodium 137, potassium 3.8, BUN 7, creatinine 0.46, glucose 115, troponin 0.012 EKG done in the ER showed heart rate of 93, no ST segment elevation or depression seen, no T-wave inversions seen. Chest x-ray done in the ER no consolidations, no pleural effusions. Patient admitted to internal medicine service 12/04. Patient seen and examined. Blood work done this morning showed WBC 15.5, hemoglobin 12.3, sodium 140, potassium 4, BUN 5, creatinine 0.40 CIWA scale was 13. continues to be agitated and confused. 12/06/23 I am resuming the care of the patient today. Patient seen and examined at bedside in the emergency room 8. Patient looks confused to time place and person, speech she could not tell she is in the hospital, the date or the name of the president. She does not look to have insight into her illness. She may follow simple commands. She complains from pain in her left knee however there is no deformity or discoloration. Also left thigh but no leg swelling or pain or tenderness. She denies chest pain or dyspnea. She denies headache or dizziness. Meningeal signs are absent. Abdomen looks soft also with no abdominal pain. Patient was confused and combative, sitter at bedside for safety. She still has high CIWA score about 8-12, slightly better since admission. She is currently on CIWA protocol as well as Librium 50 mg 4 times daily. Yesterday she developed significant leukocytosis 7.8 up to 15.5 Chest x-ray on admission was negative, we will going to repeat chest x-ray as she is confused and alcoholic should be at risk of aspiration. We will check urine analysis and urine culture since it was not sent Check pro- Calcitonin and CRP also will check VBG Her bicarb is chronically low at time and has been about 17-18 during this admission Card Reader evaluated the patient for atypical chest pain and sign of Currently patient on ceftriaxone 2 g, she is getting CIWA and Librium also she is on normal saline 75 mL/h 12/07/2023 Patient admitted initially for left lower extremity cellulitis and alcohol withdrawal Her left lower extremity cellulitis is improving, however patient today is very confused and since yesterday when I saw her, today there is a sitter at bedside Patient herself was very sleepy hard to wake up however earlier as per staff she woke up in the morning and she took a shower and had breakfast but she was somewhat confused Patient is currently on Librium 50 mg 4 times daily which might be contributing to her drowsiness and confusion therefore we are going to lower the dose to 25 mg 3 times daily as her CIWA score is improving. Meningeal signs absent no headache no leukocytosis no hyponatremia. WBC is mildly elevated today but was normal yesterday. Patient is afebrile CT of the brain is negative for acute process, chest x-ray is negative for acute process, urine analysis is normal, procalcitonin and CRP are both within the reference range pH is slightly elevated 7.4 but pCO2 is normal Discussed with staff 12/07/26 Patient started waking up today, she is sitting up in bed, awake eating her lunch by herself, still mildly confused, patient has poor dentition. She denies specific complaint We will lower her Librium 25 mg down to 20 mg 3 times daily. Vital stable Will check labs tomorrow Remains on cellulitis with ID team on the case 12/10/2023 Patient was agitated overnight She received Ativan acid maker and currently she is sleepy Earlier she was awake and able to eat She is still on Librium 20 mg 3 times daily we are going to lowered to twice daily as part of the taper At the same time we added Seroquel 25 mg nightly as and 25 mg twice daily as needed She is on ceftriaxone 12/10/2023 Will try to taper the patient off benzodiazepines. Currently she is on Librium 20 mg 3 times a day taper down to twice daily. She was agitated despite Seroquel. We have to give her small dose of Ativan once or twice at the dose of 0.5 mg each time. We will check EKG for further monitoring Discussed with staff 12/12/2023 Patient is sleeping the whole day, she did not get her Librium dose this morning so it was discontinued She is getting Seroquel 50 mg at bedtime plus trazodone 50 methadone 50 mg started yesterday. Sitter remains at bedside To taper her off benzodiazepine to improve her mentation On reviewing home medication she was not on benzodiazepine 12/13/2023 pt was doing well in the morning, she was calm and bedside sitter was discontinued in preparation for discharge The afternoon patient become more agitated and violent with the staff and as per nurse patient was lying in bed after that for 4 minutes with her eyes rolled up which what looks like a seizure to the bedside nurse Also is there is some reports of hitting her head during this time. We obtained CT of the brain which was negative for acute process 1 mg of IV Ativan is given Patient is already on Keppra At nighttime she is getting Seroquel and trazodone 12/14/2023 Patient awake and calm when I saw the patient this morning However she still getting periods of agitation especially in the afternoon after rounding. Yesterday the bedside nurse suspected patient had a seizure). She was unresponsive for about 4 minutes. As such neurology team was consulted and discussed the case with the neurologist, their input is appreciated, currently MRI of the brain and EEG are pending, also Keppra dose was increased to 1000 into 1500 twice daily. Also we will consult psychiatry team for further Evaluation and recommendations. Patient kept off antibiotics Objective - Vital Signs Vital signs: Vital Signs Temp 97.6 F 12/14/23 20:00 Pulse 86 12/14/23 20:00 Resp 16 12/14/23 20:00 BP 104/73 12/14/23 20:00 Pulse Ox 95 12/14/23 20:00 FiO2 Intake & Output 12/14/23 12/14/23 12/15/23 06:59 18:59 06:59 Other: # Voids 1 - Exam -GENERAL: The patient is alert and oriented x0, not in any acute distress. Well developed, well nourished. HEENT: Pupils are round and equally reacting to light. EOMI. No scleral icterus. No conjunctival pallor. Normocephalic, atraumatic. No pharyngeal erythema. No thyromegaly. CARDIOVASCULAR: S1 and S2 present. No murmurs, rubs, or gallops. PULMONARY: Chest is clear to auscultation, no wheezing , no crackles. ABDOMEN: Soft, nontender, nondistended, normoactive bowel sounds. No palpable organomegaly. MUSCULOSKELETAL: No joint swelling or deformity. EXTREMITIES: No cyanosis, clubbing, or pedal edema. NEUROLOGICAL: Gross neurological examination did not reveal any focal deficits. SKIN: No rashes. no petechiae. - Labs CBC & Chem 7: 12/12/23 04:21 12/12/23 04:21 Assessment and Plan Assessment: Alcohol withdrawal with delirium tremens Metabolic/toxic encephalopathy secondary to above. Most likely secondary to medication effect, we lowered the Librium Left lower extremity cellulitis improving Atypical chest pain, improved Left knee and thigh pain Alcohol use disorder Leukocytosis Hyperlipidemia History of COPD History of seizure, currently on seizure medication Keppra 1000 twice daily which is resumed Plan: Patient currently off benzodiazepines Neurology consult on the case MRI of brain and EEG are pending Keppra dose increased to 1500 mg Psychiatric team consult Continue with thiamine on Seroquel 25 mg at bedtime and trazodone 50 mg at bedtime ID team consult on the case , currently off antibiotic Continue with sitter at bedside DVT prophylaxis, mechanical till CT of the brain is negative GI prophylaxis Pepcid Prognosis is guarded
--- NOTE | 2023-12-15 02:10 | EEG ---
ELECTROENCEPHALOGRAM REPORT CLINICAL HISTORY: This is a 57-year-old woman with history of seizure, alcohol use, who had seizure-like activity on 12/13/2023. The video EEG is obtained to evaluate for seizure epileptiform activity. RELEVANT MEDICATIONS: 1. Keppra. 2. Ativan. EEG TYPE: A routine 21-channel EEG with video using the 10/20 electrode placement system. DESCRIPTION: Wakefulness and drowsiness are obtained. During awake state, the background consists of [id number] voltage of 8.5 hertz activity. There is no physiological stage 2 sleep architecture. There is no focal slowing. Interictal and ictal is, there appears to be rare to moderate amount of sharp and slow waves more on stemming over the right frontal and there seems to be a field effect over the left frontal as well. No seizures noted during the study. ACTIVATION PROCEDURE: Photic stimulation did not evoke a posterior driving response. There is no abnormality during the photic stimulation. Hyperventilation is not performed. CLINICAL INTERPRETATION: This is an abnormal routine EEG. There is epileptiform discharge stemming over the right frontal, which can increase risk for seizure. There are no seizures noted during the study. The background is normal and there is no focal slowing. Clinical correlation is recommended. MMODL / IJN: [id number] / MTDD
[2023-12-15 09:08] LABS: Blood Urea Nitrogen 8.6 mg/dL (9.0-27.0); Calcium 9.4 mg/dL (8.7-10.3); Carbon Dioxide 24.4 mmol/L (21.6-31.8); Chloride 109 mmol/L (96-109); Glucose 93 mg/dL (70-110); Potassium 4.2 mmol/L (3.5-5.5); Sodium 144 mmol/L (135-145)
[2023-12-15 09:10] LABS: Basophils # (A) 0.04 X 10*3/uL (0.00-0.10); Basophils % (A) 0.4 %; Eosinophils # (A) 0.06 X 10*3/uL (0.04-0.35); Eosinophils % (A) 0.7 %; HCT 34.2 % (37.2-46.3); HGB 11.2 g/dL (12.0-15.0); Lymphocytes # (A) 1.81 X 10*3/uL (0.90-5.00); Lymphocytes % (A) 19.9 %; MCH 33.8 pg (27.0-32.0); MCHC 32.7 g/dL (32.0-37.0); MCV 103.3 FL (80.0-97.0); Mean Platelet Volume 10.7 FL (9.5-12.2); Monocytes % (A) 14.3 %; NRBC Per 100 WBC 0 X 10*3/uL (0.00-0.01); Neutrophils # (A) 5.84 X 10*3/uL (1.80-7.70); Platelet Count 365 X 10*3/uL (140-440); RBC 3.31 X 10*6/uL (4.10-5.20); RDW 13.7 % (11.5-14.5); WBC 9.11 X 10*3/uL (4.50-10.00)
--- NOTE | 2023-12-15 16:36 | P.PN ---
Subjective Progress Note Date: 12/15/23 Principal diagnosis: Reason for follow-up is left lower extremity cellulitis and leukocytosis Patient is 57-year-old female past medical history significant for COPD seizure disorder [place] cervical cancer, anxiety bipolar depression current everyday smoker and alcoholism, patient was brought into the hospital for evaluation of not feeling well has been complaining of left lower extremity pain and swelling , There was concern for some cellulitis for the patient was started on ceftriaxone. On today's evaluation that is 12/15/2023,the patient is more awake and alert t miguel sitting up in the bed she is breathing comfortable room air denies any chest pain or cough no vomiting today reported by the sitter at the bedside. Patient white count is 9.11, creatinine 0.5 blood culture has been negative Objective - Vital Signs Vital signs: Vital Signs Temp 97.7 F 12/15/23 07:50 Pulse 77 12/15/23 07:50 Resp 17 12/15/23 07:50 BP 100/64 12/15/23 07:50 Pulse Ox 97 12/15/23 07:50 FiO2 Intake & Output 12/14/23 12/15/23 12/15/23 18:59 06:59 18:59 Other: # Voids 1 - Exam GENERAL DESCRIPTION: Middle-aged female lying in bed in no distress RESPIRATORY SYSTEM: Unlabored breathing , decreased breath sounds at bases HEART: S1 S2 regular rate and rhythm , ABDOMEN: Soft , no tenderness EXTREMITIES: Left lower extremity minimal swelling open wound no drainage - Labs CBC & Chem 7: 12/15/23 05:36 12/15/23 05:36 Labs: Abnormal Lab Results - Last 24 Hours (Table) 12/15/23 12/15/23 Range/Units 05:36 05:36 RBC 3.31 L (4.10-5.20) X 10*6/uL Hgb 11.2 L (12.0-15.0) g/dL Hct 34.2 L (37.2-46.3) % MCV 103.3 H (80.0-97.0) FL MCH 33.8 H (27.0-32.0) pg Immature Gran # 0.06 H (0.00-0.04) X 10*3/uL Monocytes # 1.30 H (0.20-1.00) X 10*3/uL BUN 8.6 L (9.0-27.0) mg/dL Creatinine 0.5 L (0.6-1.5) mg/dL Assessment and Plan (1) Penicillin allergy Current Visit: Yes Status: Acute Code(s): Z88.0 - ALLERGY STATUS TO PENICILLIN SNOMED Code(s): 30748508 (2) Left leg cellulitis Current Visit: Yes Status: Acute Code(s): L03.116 - CELLULITIS OF LEFT LOWER LIMB SNOMED Code(s): 15992191380319328 Plan: 1patient with multiple comorbidities presenting to the hospital concerning for not feeling well also complaining of some left lower extremity swelling with concern for possible cellulitis Doppler ultrasound was negative for any DVT possibly mild cellulitis likely from gram-positive skin jael 2-penicillin allergy 3-patient white count has normalized blood cultures has been negative, has received adequate antibiotic for the leg cellulitis will continue monitor closely off antibiotic therapy white count remains to be normal Dictation was produced using [employer] dictation software. please excuse any grammatical, word or spelling errors. Time with Patient: Less than 30
--- NOTE | 2023-12-15 17:20 | P.CN ---
Psychiatric Consult - . Consult date: 12/15/23 Consult:: 12/15/23 17:20 CONSULTATION Reason for consult: Behavioral changes Identifying Data: The patient is 58-year-old, , white female, who lives in [place], [place]. Reason for admission: Weakness, lower extremity pain, redness, and swelling. History of present illness: The patient was brought to the emergency department with weakness, left lower extremity pain, redness, and swelling. After initial examination and other work-up, the patient was transferred to medical floor for further management. During this evaluation, the patient reported unable to give any meaningful history. She was incoherent. Seeing a little girl on her bed. She was talking to her trying to pull her out of the sheet. She also saw a black man in the room. According to the sitter, the patient has been talking to herself and seeing thi ngs. She was oriented time one. The patient that she arrived here from [place] 2days ago but also stated that she here for three days. She was unaware of her surroundings. Her daughter Julia stated that her mother has called and sent her messages saying things which did not make any sense. She would call at odd hours of night and talk about her other relatives and believe that she is in [place]. She noted that this started about month and half ago. She indicated that first her mother became unsteady of feet and then after being discharged from the hospital, she started having the memory issues. She came to visit her mother last Wednesday and stayed here for 4-5 days. She noted that the patient was unable to hold meaningful conversation. She noted that in 1990 she was diagnosed with Bipolar illness. She stated that she never psychiatric help but was getting medications from her PCP. She was never hospitalized to psychiatric hospital. She has no h/o suicidal or homicidal ideations or behavior. She was never treated as an out-pt in a psychiatric setting. Her boyfriend, Steven, who has know patient for 10 years indicated that the patient does not take any psychiatric medications or sees any psychiatrist or therapist. Current psychiatric medications: Seroquel Out-pt follow-up: No psychiatric out-pt treatment, as per daughter and boyfriend. History of past psychiatric illness: No other than stated in HPI. No history of suicidal or homicidal ideations or behavior. Past medical history: Dyslipidemia, Seizure disorder, COPD, PR, Substance abuse history: Alcohol dependence. Family history of psychiatric disorder: Not known. MSE: Alert but inattentive. Orientation X1. Pleasant and cooperative. Psychomotor activity: Mildly increased. Speech: Normal tone, quality, and hyperverbal. Mood: Could not be assessed. Affect: Inappropriate SI or HI: None noted. Thought content: No delusion theme was noticed. Thought process: rambling and incoherent. Perceptual disturbance: seeing things, talking to people not there. Cognition: Significantly compromised. Judgement and Insight: Poor. Diagnosis: Delirium- multifactorial, H/O Bipolar Disorder, Alcohol dependence. Plan: Continue Seroquel. Continue rest of the treatment as per your direction. Continue medical safety director. Reevaluate patient again after delirium subsided and patient is able to participate in evaluation.
--- NOTE | 2023-12-15 19:01 | P.PN ---
Subjective Progress Note Date: 12/15/23 I am following-up with patient and no further seizure. Patient feels she is doing better. Still pending MRI Brain. Objective - Vital Signs Vital signs: Vital Signs Temp 98.2 F 12/15/23 14:00 Pulse 91 12/15/23 14:00 Resp 17 12/15/23 14:00 BP 113/76 12/15/23 14:00 Pulse Ox 98 12/15/23 14:00 FiO2 Intake & Output 12/14/23 12/15/23 12/15/23 18:59 06:59 18:59 Output Total 300 Balance -300 Weight 52.163 kg Output: Urine 300 Other: # Voids 1 - Exam GENERAL: The patient is lying in bed and is not in acute distress. NEUROLOGICAL: Higher mental function: The patient is awake, alert, oriented to self and place only. Is following simple commands. No aphasia and no neglect. Cranial nerves: The pupils are round, equal and reactive to light. Visual lund are full to confrontation throughout. Extraocular movement is rotatory nystagmus looking to right and left. Facial sensation is normal to touch throughout. The facial strength is normal throughout. Hearing is normal bilaterally to hand rub. Tongue is midline and moved [id number] without any difficulty. No dysarthria is noted. Shoulder shrug is normal bilaterally. Motor: The strength is strength is 5/5 uppers and lowers lifting symmetrically above gravity. Normal tone and bulk. Cerebellum: Normal finger to nose bilaterally. Sensation: Sensation is normal to touch throughout. Reflexes (right/left): 2+ throughout and 1+ ankles. Plantars are mute bilaterally. Some of the work-up during this hospital visit consisted of: Most recent sodium is 148 Serum glucose is 97 Calcium is 9.9 Last magnesium was 1.7 Keppra level is 40.7 (normal is 3-60). Ammonia is less than 9 CT head on 12/13/2023 is reported as no acute bleed or mass effect. No evidence of acute trauma. I personally reviewed the CT and I agree there is no acute or subacute ischemia or acute process appreciated. Routine EEG: Is abnormal study. The is epileptiform discharge over stemming over the right frontal which can increase risk for seizure. There is no seizure during this study. No focal slowing and background is normal. - Labs CBC & Chem 7: 12/15/23 05:36 12/15/23 05:36 Labs: Abnormal Lab Results - Last 24 Hours (Table) 12/15/23 12/15/23 Range/Units 05:36 05:36 RBC 3.31 L (4.10-5.20) X 10*6/uL Hgb 11.2 L (12.0-15.0) g/dL Hct 34.2 L (37.2-46.3) % MCV 103.3 H (80.0-97.0) FL MCH 33.8 H (27.0-32.0) pg Immature Gran # 0.06 H (0.00-0.04) X 10*3/uL Monocytes # 1.30 H (0.20-1.00) X 10*3/uL BUN 8.6 L (9.0-27.0) mg/dL Creatinine 0.5 L (0.6-1.5) mg/dL Assessment and Plan Assessment: This is a 57-year-old woman with history of seizure, alcohol use, tobacco use, medication noncompliance who presents because of left lower extremity cellulitis on 12/03/2023. Yesterday in the late afternoon and a team was called since the patient was unresponsive and had gaze deviation upwards into the right but responded after sternal rub immediately concerning for ?seizure was on Ativan 1 mg. Benzodiazepine was weaned down eventually stopped stopped a couple days ago Questionable breakthrough seizure on Had repeat CT head and was negative for acute process. EEG showed epileptiform discharge over the right frontal but no seizure. On examination has nystagmus looking to right and left of unknown etiology. History of seizure and patient does acknowledge she is noncompliant with medication and continues to use alcohol Left lower extremity cellulitis Hyponatremia Alcohol use daily Tobacco use (smokes 1.5 PPD) Medication noncompliance Plan: Pending MRI of the brain since patient has nystagmus to rule out any central process. Continue Keppra 1500 mg twice a day (I have increased it on 12/14/2023 from 1gm bid to 1.5mg because of breakthrough seizure). Seizure precautions seizure pads Please [place] DM[place] because of seizure, to avoid driving for 6 months until seizure free, avoid heights, swim unassisted or using heavy machinery. Will defer the rest of the medical management the primary team and other specialist Was counseled on medication compliance as well as cessation of alcohol and tobacco use Will discharge recommend the patient to follow-up with a neurologist as an outpatient within 1 to 2 weeks. Plan discussed with the patient as well as primary team. Time with Patient: Less than 30
--- NOTE | 2023-12-15 22:20 | P.PN ---
Subjective patient 57-year-old lady with past medical history significant for hyperlipidemia, alcohol abuse, seizure disorder, COPD presented to ER for compla int of not feeling well for the last few days. Patient has history of heavy alcohol abuse. Patient stated that for the last few days she has not been feeling well. Patient has been complaining of left lower extremity swelling and pain. Patient stated that the left lower extremity felt very warm. Patient also complains of shortness of breath on exertion. When patient went to the ER she started complaining of intermittent chest pain. There was no complaint of palpitation. There was no clear orthopnea or PND. Initial lab work done in the ER showed WBC 7.8, hemoglobin 11.9, platelet count 376, sodium 137, potassium 3.8, BUN 7, creatinine 0.46, glucose 115, troponin 0.012 EKG done in the ER showed heart rate of 93, no ST segment elevation or depression seen, no T-wave inversions seen. Chest x-ray done in the ER no consolidations, no pleural effusions. Patient admitted to internal medicine service 12/04. Patient seen and examined. Blood work done this morning showed WBC 15.5, hemoglobin 12.3, sodium 140, potassium 4, BUN 5, creatinine 0.40 CIWA scale was 13. continues to be agitated and confused. 12/06/23 I am resuming the care of the patient today. Patient seen and examined at bedside in the emergency room 8. Patient looks confused to time place and person, speech she could not tell she is in the hospital, the date or the name of the president. She does not look to have insight into her illness. She may follow simple commands. She complains from pain in her left knee however there is no deformity or discoloration. Also left thigh but no leg swelling or pain or tenderness. She denies chest pain or dyspnea. She denies headache or dizziness. Meningeal signs are absent. Abdomen looks soft also with no abdominal pain. Patient was confused and combative, sitter at bedside for safety. She still has high CIWA score about 8-12, slightly better since admission. She is currently on CIWA protocol as well as Librium 50 mg 4 times daily. Yesterday she developed significant leukocytosis 7.8 up to 15.5 Chest x-ray on admission was negative, we will going to repeat chest x-ray as she is confused and alcoholic should be at risk of aspiration. We will check urine analysis and urine culture since it was not sent Check pro- Calcitonin and CRP also will check VBG Her bicarb is chronically low at time and has been about 17-18 during this admission Flight Control Specialist evaluated the patient for atypical chest pain and sign of Currently patient on ceftriaxone 2 g, she is getting CIWA and Librium also she is on normal saline 75 mL/h 12/07/2023 Patient admitted initially for left lower extremity cellulitis and alcohol withdrawal Her left lower extremity cellulitis is improving, however patient today is very confused and since yesterday when I saw her, today there is a sitter at bedside Patient herself was very sleepy hard to wake up however earlier as per staff she woke up in the morning and she took a shower and had breakfast but she was somewhat confused Patient is currently on Librium 50 mg 4 times daily which might be contributing to her drowsiness and confusion therefore we are going to lower the dose to 25 mg 3 times daily as her CIWA score is improving. Meningeal signs absent no headache no leukocytosis no hyponatremia. WBC is mildly elevated today but was normal yesterday. Patient is afebrile CT of the brain is negative for acute process, chest x-ray is negative for acute process, urine analysis is normal, procalcitonin and CRP are both within the reference range pH is slightly elevated 7.4 but pCO2 is normal Discussed with staff 12/07/26 Patient started waking up today, she is sitting up in bed, awake eating her lunch by herself, still mildly confused, patient has poor dentition. She denies specific complaint We will lower her Librium 25 mg down to 20 mg 3 times daily. 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 Currently she is on Librium 20 mg 3 times a day taper down to twice daily. She was agitated despite Seroquel. We have to give her small dose of Ativan once or twice at the dose of 0.5 mg each time. We will check EKG for further monitoring Discussed with staff 12/12/2023 Patient is sleeping the whole day, she did not get her Librium dose this morning so it was discontinued She is getting Seroquel 50 mg at bedtime plus trazodone 50 methadone 50 mg started yesterday. Sitter remains at bedside To taper her off benzodiazepine to improve her mentation On reviewing home medication she was not on benzodiazepine 12/13/2023 pt was doing well in the morning, she was calm and bedside sitter was discontinued in preparation for discharge The afternoon patient become more agitated and violent with the staff and as per nurse patient was lying in bed after that for 4 minutes with her eyes rolled up which what looks like a seizure to the bedside nurse Also is there is some reports of hitting her head during this time. We obtained CT of the brain which was negative for acute process 1 mg of IV Ativan is given Patient is already on Keppra At nighttime she is getting Seroquel and trazodone 12/14/2023 Patient awake and calm when I saw the patient this morning However she still getting periods of agitation especially in the afternoon after rounding. Yesterday the bedside nurse suspected patient had a seizure). She was unresponsive for about 4 minutes. As such neurology team was consulted and discussed the case with the neurologist, their input is appreciated, currently MRI of the brain and EEG are pending, also Keppra dose was increased to 1000 into 1500 twice daily. Also we will consult psychiatry team for further Evaluation and recommendations. Patient kept off antibiotics 12/15/2023 Patient was agitated overnight requiring 1 dose of Haldol last evening This morning was very sleepy and could not answer questions sail repairer still at bedside no family at bedside Objective - Vital Signs Vital signs: Vital Signs Temp 97.7 F 12/15/23 07:50 Pulse 77 12/15/23 07:50 Resp 17 12/15/23 07:50 BP 100/64 12/15/23 07:50 Pulse Ox 97 12/15/23 07:50 FiO2 Intake & Output 12/14/23 12/15/23 12/15/23 18:59 06:59 18:59 Other: # Voids 1 - Exam -GENERAL: The patient is alert and oriented x0, not in any acute distress. Well developed, well nourished. HEENT: Pupils are round and equally reacting to light. EOMI. No scleral icterus. No conjunctival pallor. Normocephalic, atraumatic. No pharyngeal erythema. No thyromegaly. CARDIOVASCULAR: S1 and S2 present. No murmurs, rubs, or gallops. PULMONARY: Chest is clear to auscultation, no wheezing , no crackles. ABDOMEN: Soft, nontender, nondistended, normoactive bowel sounds. No palpable organomegaly. MUSCULOSKELETAL: No joint swelling or deformity. EXTREMITIES: No cyanosis, clubbing, or pedal edema. NEUROLOGICAL: Gross neurological examination did not reveal any focal deficits. SKIN: No rashes. no petechiae. - Labs CBC & Chem 7: 12/15/23 05:36 12/15/23 05:36 Labs: Abnormal Lab Results - Last 24 Hours (Table) 12/15/23 12/15/23 Range/Units 05:36 05:36 RBC 3.31 L (4.10-5.20) X 10*6/uL Hgb 11.2 L (12.0-15.0) g/dL Hct 34.2 L (37.2-46.3) % MCV 103.3 H (80.0-97.0) FL MCH 33.8 H (27.0-32.0) pg Immature Gran # 0.06 H (0.00-0.04) X 10*3/uL Monocytes # 1.30 H (0.20-1.00) X 10*3/uL BUN 8.6 L (9.0-27.0) mg/dL Creatinine 0.5 L (0.6-1.5) mg/dL Assessment and Plan Assessment: Alcohol withdrawal with delirium tremens Metabolic/toxic encephalopathy secondary to above. Most likely secondary to medication effect, we lowered the Librium Left lower extremity cellulitis improving Atypical chest pain, improved Left knee and thigh pain Alcohol use disorder Leukocytosis Hyperlipidemia History of COPD History of seizure, currently on seizure medication Keppra 1000 twice daily which is resumed Plan: Patient currently off benzodiazepines Neurology consult on the case MRI of brain and EEG are pending Keppra dose increased to 1500 mg Psychiatric team consult Continue with thiamine on Seroquel 25 mg at bedtime and trazodone 50 mg at bedtime ID team consult on the case , currently off antibiotic Continue with sitter at bedside DVT prophylaxis, mechanical till CT of the brain is negative GI prophylaxis Pepcid Prognosis is guarded
[2023-12-16 10:13] LABS: Urine Alcohol Negative (Negative); Urine Barbiturate Negative (Negative); Urine Cocaine Negative (Negative); Urine Methadone Negative (Negative); Urine Opiates Negative (Negative); Urine Phencyclidine Negative (Negative)
--- NOTE | 2023-12-16 16:22 | P.PN ---
Subjective Progress Note Date: 12/16/23 Principal diagnosis: Reason for follow-up is left lower extremity cellulitis and leukocytosis Patient is 57-year-old female past medical history significant for COPD seizure disorder [place] cervical cancer, anxiety bipolar depression current everyday smoker and alcoholism, patient was brought into the hospital for evaluation of not feeling well has been complaining of left lower extremity pain and swelling , There was concern for some cellulitis for the patient was started on ceftriaxone. On today's evaluation that is 12/16/2023,the patient remains to be afebrile, p atient is on room air not requiring supplemental oxygen patient is more awake and alert breathing comfortably no chest pain no abdominal pain no diarrhea has been reported. . Normal white count of 9.11 yesterday no CBC has been done today urine is positive for benzo blood culture negative Objective - Vital Signs Vital signs: Vital Signs Temp 98.5 F 12/16/23 13:01 Pulse 85 12/16/23 13:01 Resp 14 12/16/23 13:01 BP 128/82 12/16/23 13:01 Pulse Ox 98 12/16/23 13:01 FiO2 Intake & Output 12/15/23 12/16/23 12/16/23 18:59 06:59 18:59 Output Total 300 Balance -300 Weight 52.163 kg Output: Urine 300 Other: Voiding Method Toilet Bedside Commode # Voids 4 2 - Exam GENERAL DESCRIPTION: Middle-aged female lying in bed in no distress RESPIRATORY SYSTEM: Unlabored breathing , decreased breath sounds at bases HEART: S1 S2 regular rate and rhythm , ABDOMEN: Soft , no tenderness EXTREMITIES: Left lower extremity minimal swelling open wound no drainage - Labs CBC & Chem 7: 12/15/23 05:36 12/15/23 05:36 Labs: Abnormal Lab Results - Last 24 Hours (Table) 12/15/23 Range/Units 23:55 U Benzodiazepines Scrn Positive A (Negative) U Creatinine Drug Scrn 10.0 L (>=20.0) mg/dL Assessment and Plan (1) Penicillin allergy Current Visit: Yes Status: Acute Code(s): Z88.0 - ALLERGY STATUS TO PENICILLIN SNOMED Code(s): 34936236 (2) Left leg cellulitis Current Visit: Yes Status: Acute Code(s): L03.116 - CELLULITIS OF LEFT LOWER LIMB SNOMED Code(s): 07448085560415674 Plan: 1patient with multiple comorbidities presenting to the hospital concerning for not feeling well also complaining of some left lower extremity swelling with concern for possible cellulitis Doppler ultrasound was negative for any DVT possibly mild cellulitis likely from gram-positive skin jael 2-penicillin allergy 3-patient white count has normalized blood cultures has been negative, has received adequate antibiotic for the leg cellulitis currently being monitored cl osely off antibiotic therapy seems to be doing well off antibiotics Dictation was produced using [employer] dictation software. please excuse any grammatical, word or spelling errors. Time with Patient: Less than 30
[2023-12-16] MEDS: NITROGLYCERIN SL TABS 0.4 MG TAB SUBLINGUAL PRN (23:04)
[2023-12-16] MEDS: NITROGLYCERIN SL TABS 0.4 MG TAB SUBLINGUAL ONE (23:48)
--- NOTE | 2023-12-17 05:50 | P.PN ---
Subjective patient 57-year-old lady with past medical history significant for hyperlipidemia, alcohol abuse, seizure disorder, COPD presented to ER for compla int of not feeling well for the last few days. Patient has history of heavy alcohol abuse. Patient stated that for the last few days she has not been feeling well. Patient has been complaining of left lower extremity swelling and pain. Patient stated that the left lower extremity felt very warm. Patient also complains of shortness of breath on exertion. When patient went to the ER she started complaining of intermittent chest pain. There was no complaint of palpitation. There was no clear orthopnea or PND. Initial lab work done in the ER showed WBC 7.8, hemoglobin 11.9, platelet count 376, sodium 137, potassium 3.8, BUN 7, creatinine 0.46, glucose 115, troponin 0.012 EKG done in the ER showed heart rate of 93, no ST segment elevation or depression seen, no T-wave inversions seen. Chest x-ray done in the ER no consolidations, no pleural effusions. Patient admitted to internal medicine service 12/04. Patient seen and examined. Blood work done this morning showed WBC 15.5, hemoglobin 12.3, sodium 140, potassium 4, BUN 5, creatinine 0.40 CIWA scale was 13. continues to be agitated and confused. 12/06/23 I am resuming the care of the patient today. Patient seen and examined at bedside in the emergency room 8. Patient looks confused to time place and person, speech she could not tell she is in the hospital, the date or the name of the president. She does not look to have insight into her illness. She may follow simple commands. She complains from pain in her left knee however there is no deformity or discoloration. Also left thigh but no leg swelling or pain or tenderness. She denies chest pain or dyspnea. She denies headache or dizziness. Meningeal signs are absent. Abdomen looks soft also with no abdominal pain. Patient was confused and combative, sitter at bedside for safety. She still has high CIWA score about 8-12, slightly better since admission. She is currently on CIWA protocol as well as Librium 50 mg 4 times daily. Yesterday she developed significant leukocytosis 7.8 up to 15.5 Chest x-ray on admission was negative, we will going to repeat chest x-ray as she is confused and alcoholic should be at risk of aspiration. We will check urine analysis and urine culture since it was not sent Check pro- Calcitonin and CRP also will check VBG Her bicarb is chronically low at time and has been about 17-18 during this admission [employer] Specialist evaluated the patient for atypical chest pain and sign of Currently patient on ceftriaxone 2 g, she is getting CIWA and Librium also she is on normal saline 75 mL/h 12/07/2023 Patient admitted initially for left lower extremity cellulitis and alcohol withdrawal Her left lower extremity cellulitis is improving, however patient today is very confused and since yesterday when I saw her, today there is a sitter at bedside Patient herself was very sleepy hard to wake up however earlier as per staff she woke up in the morning and she took a shower and had breakfast but she was somewhat confused Patient is currently on Librium 50 mg 4 times daily which might be contributing to her drowsiness and confusion therefore we are going to lower the dose to 25 mg 3 times daily as her CIWA score is improving. Meningeal signs absent no headache no leukocytosis no hyponatremia. WBC is mildly elevated today but was normal yesterday. Patient is afebrile CT of the brain is negative for acute process, chest x-ray is negative for acute process, urine analysis is normal, procalcitonin and CRP are both within the reference range pH is slightly elevated 7.4 but pCO2 is normal Discussed with staff 12/07/26 Patient started waking up today, she is sitting up in bed, awake eating her lunch by herself, still mildly confused, patient has poor dentition. She denies specific complaint We will lower her Librium 25 mg down to 20 mg 3 times daily. Vital stable Will check labs tomorrow Remains on cellulitis with ID team on the case 12/10/2023 Patient was agitated overnight She received Ativan review nurse and currently she is sleepy Earlier she was awake and able to eat She is still on Librium 20 mg 3 times daily we are going to lowered to twice daily as part of the taper At the same time we added Seroquel 25 mg nightly as and 25 mg twice daily as needed She is on ceftriaxone 12/10/2023 Will try to taper the patient off benzodiazepines. Currently she is on Librium 20 mg 3 times a day taper down to twice daily. She was agitated despite Seroquel. We have to give her small dose of Ativan once or twice at the dose of 0.5 mg each time. We will check EKG for further monitoring Discussed with staff 12/12/2023 Patient is sleeping the whole day, she did not get her Librium dose this morning so it was discontinued She is getting Seroquel 50 mg at bedtime plus trazodone 50 methadone 50 mg started yesterday. Sitter remains at bedside To taper her off benzodiazepine to improve her mentation On reviewing home medication she was not on benzodiazepine 12/13/2023 pt was doing well in the morning, she was calm and bedside sitter was discontinued in preparation for discharge The afternoon patient become more agitated and violent with the staff and as per nurse patient was lying in bed after that for 4 minutes with her eyes rolled up which what looks like a seizure to the bedside nurse Also is there is some reports of hitting her head during this time. We obtained CT of the brain which was negative for acute process 1 mg of IV Ativan is given Patient is already on Keppra At nighttime she is getting Seroquel and trazodone 12/14/2023 Patient awake and calm when I saw the patient this morning However she still getting periods of agitation especially in the afternoon after rounding. Yesterday the bedside nurse suspected patient had a seizure). She was unresponsive for about 4 minutes. As such neurology team was consulted and discussed the case with the neurologist, their input is appreciated, currently MRI of the brain and EEG are pending, also Keppra dose was increased to 1000 into 1500 twice daily. Also we will consult psychiatry team for further Evaluation and recommendations. Patient kept off antibiotics 12/15/2023 Patient was agitated overnight requiring 1 dose of Haldol last evening This morning was very sleepy and could not answer questions day care director still at bedside no family at bedside 12/16/2023 pt is still sleepy during the days and can not participate in activity , she got agitated over night and ending up receiving sedatives earlier she was awake and ate her meal with no problems vitals are stable and labs obtained today which were basically unremarkable neurology and psychiatry consults were obtained for further evaluation and management Objective - Vital Signs Vital signs: Vital Signs Temp 98.2 F 12/16/23 06:52 Pulse 81 12/16/23 06:52 Resp 15 12/16/23 06:52 BP 117/76 12/16/23 06:52 Pulse Ox 97 12/16/23 06:52 FiO2 Intake & Output 12/15/23 12/16/23 12/16/23 18:59 06:59 18:59 Output Total 300 Balance -300 Weight 52.163 kg Output: Urine 300 Other: Voiding Method Toilet Bedside Commode # Voids 4 - Exam -GENERAL: The patient is alert and oriented x0, not in any acute distress. Well developed, well nourished. HEENT: Pupils are round and equally reacting to light. EOMI. No scleral icterus. No conjunctival pallor. Normocephalic, atraumatic. No pharyngeal erythema. No thyromegaly. CARDIOVASCULAR: S1 and S2 present. No murmurs, rubs, or gallops. PULMONARY: Chest is clear to auscultation, no wheezing , no crackles. ABDOMEN: Soft, nontender, nondistended, normoactive bowel sounds. No palpable organomegaly. MUSCULOSKELETAL: No joint swelling or deformity. EXTREMITIES: No cyanosis, clubbing, or pedal edema. NEUROLOGICAL: Gross neurological examination did not reveal any focal deficits. SKIN: No rashes. no petechiae. - Labs CBC & Chem 7: 12/15/23 05:36 12/15/23 05:36 Labs: Abnormal Lab Results - Last 24 Hours (Table) 12/15/23 Range/Units 23:55 U Benzodiazepines Scrn Positive A (Negative) U Creatinine Drug Scrn 10.0 L (>=20.0) mg/dL Assessment and Plan Assessment: Alcohol withdrawal with delirium tremens Metabolic/toxic encephalopathy secondary to above. Most likely secondary to medication effect, we lowered the Librium Left lower extremity cellulitis improving Atypical chest pain, improved Left knee and thigh pain Alcohol use disorder Leukocytosis Hyperlipidemia History of COPD History of seizure, currently on seizure medication Keppra 1000 twice daily which is resumed Plan: Patient currently off benzodiazepines Neurology consult on the case MRI of brain and EEG are pending Keppra dose increased to 1500 mg Psychiatric team consult Continue with thiamine on Seroquel 25 mg at bedtime and trazodone 50 mg at bedtime ID team consult on the case , currently off antibiotic Continue with sitter at bedside DVT prophylaxis, mechanical till CT of the brain is negative GI prophylaxis Pepcid Prognosis is guarded
--- NOTE | 2023-12-17 13:33 | P.PN ---
Subjective Progress Note Date: 12/17/23 I am following-up with patient and she feels is doing well. Still pending MRI Brain. Objective - Vital Signs Vital signs: Vital Signs Temp 97.8 F 12/17/23 07:46 Pulse 90 12/17/23 07:46 Resp 14 12/17/23 07:46 BP 128/83 12/17/23 07:46 Pulse Ox 97 12/17/23 07:46 FiO2 Intake & Output 12/16/23 12/17/23 12/17/23 18:59 06:59 18:59 Intake Total 200 Balance 200 Intake: Oral 200 Other: Voiding Method Toilet Bedside Commode # Voids 2 2 - Exam GENERAL: The patient is lying in bed and is not in acute distress. NEUROLOGICAL: Higher mental function: The patient is awake, alert, oriented to self. She states she was over cousin's house. She stated the year is 2001 then later 2003 and last 2007. Is following simple commands. No aphasia and no neglect. Cranial nerves: The pupils are round, equal and reactive to light. Visual fi elds are full to confrontation throughout. Extraocular movement is rotatory nystagmus looking to right and left. Facial sensation is normal to touch throughout. The facial strength is normal throughout. Hearing is normal bilaterally to hand rub. Tongue is midline and moved [id number] without any difficulty. No dysarthria is noted. Shoulder shrug is normal bilaterally. Motor: The strength is strength is 5/5 uppers and lowers lifting symmetrically above gravity. Normal tone and bulk. Cerebellum: Normal finger to nose bilaterally. Sensation: Sensation is normal to touch throughout. Reflexes (right/left): 2+ throughout and 1+ ankles. Plantars are mute bilaterally. Some of the work-up during this hospital visit consisted of: Most recent sodium is 148 Serum glucose is 97 Calcium is 9.9 Last magnesium was 1.7 Keppra level is 40.7 (normal is 3-60). Ammonia is less than 9 CT head on 12/13/2023 is reported as no acute bleed or mass effect. No evidence of acute trauma. I personally reviewed the CT and I agree there is no acute or subacute ischemia or acute process appreciated. Routine EEG: Is abnormal study. The is epileptiform discharge over stemming over the right frontal which can increase risk for seizure. There is no seizure during this study. No focal slowing and background is normal. - Labs CBC & Chem 7: 12/15/23 05:36 12/15/23 05:36 Assessment and Plan Assessment: This is a 57-year-old woman with history of seizure, alcohol use, tobacco use, medication noncompliance who presents because of left lower extremity cellulitis on 12/03/2023. Yesterday in the late afternoon and a team was called since the patient was unresponsive and had gaze deviation upwards into the right but responded after sternal rub immediately concerning for ?seizure was on Ativan 1 mg. Benzodiazepine was weaned down eventually stopped stopped a couple days ago Questionable breakthrough seizure on Had repeat CT head and was negative for acute process. EEG showed epileptiform discharge over the right frontal but no seizure. On examination has nystagmus looking to right and left of unknown etiology. History of seizure and patient does acknowledge she is noncompliant with medicat ion and continues to use alcohol Left lower extremity cellulitis Hyponatremia Alcohol use daily Tobacco use (smokes 1.5 PPD) Medication noncompliance Plan: Pending MRI of the brain since patient has nystagmus to rule out any central process. Continue Keppra 1500 mg twice a day (I have increased it on 12/14/2023 from 1gm bid to 1.5mg because of breakthrough seizure). Seizure precautions seizure pads Please [place] DM[place] because of seizure, to avoid driving for 6 months until seizure free, avoid heights, swim unassisted or using heavy machinery. Will defer the rest of the medical management the primary team and other specialist Was counseled on medication compliance as well as cessation of alcohol and tobacco use Will discharge recommend the patient to follow-up with a neurologist as an outpatient within 1 to 2 weeks. Time with Patient: Less than 30
--- NOTE | 2023-12-17 14:57 | P.PN ---
Subjective Progress Note Date: 12/17/23 Principal diagnosis: Reason for follow-up is left lower extremity cellulitis and leukocytosis Patient is 57-year-old female past medical history significant for COPD seizure disorder [place] cervical cancer, anxiety bipolar depression current everyday smoker and alcoholism, patient was brought into the hospital for evaluation of not feeling well has been complaining of left lower extremity pain and swelling , There was concern for some cellulitis for the patient was started on ceftriaxone. On today's evaluation that is 12/17/2023, the patient continues to be afebrile, the patient is on room air and breathing comfortably, the Pt seen tomorrow awake alert denies any chest pain or cough no abdominal pain no diarrhea reported. Patient white count is 9.11 as of 12/15/2023 no new lab has been repeated today Objective - Vital Signs Vital signs: Vital Signs Temp 97.8 F 12/17/23 07:46 Pulse 90 12/17/23 07:46 Resp 14 12/17/23 07:46 BP 128/83 12/17/23 07:46 Pulse Ox 97 12/17/23 07:46 FiO2 Intake & Output 12/16/23 12/17/23 12/17/23 18:59 06:59 18:59 Intake Total 200 Balance 200 Intake: Oral 200 Other: Voiding Method Toilet Bedside Commode # Voids 2 2 - Exam GENERAL DESCRIPTION: Middle-aged female lying in bed in no distress RESPIRATORY SYSTEM: Unlabored breathing , decreased breath sounds at bases HEART: S1 S2 regular rate and rhythm , ABDOMEN: Soft , no tenderness EXTREMITIES: Left lower extremity minimal swelling open wound no drainage - Labs CBC & Chem 7: 12/15/23 05:36 12/15/23 05:36 Assessment and Plan (1) Penicillin allergy Current Visit: Yes Status: Acute Code(s): Z88.0 - ALLERGY STATUS TO PENICILLIN SNOMED Code(s): 04082799 (2) Left leg cellulitis Current Visit: Yes Status: Acute Code(s): L03.116 - CELLULITIS OF LEFT LOWER LIMB SNOMED Code(s): 88235431624867977 Plan: 1patient with multiple comorbidities presenting to the hospital concerning for not feeling well also complaining of some left lower extremity swelling with concern for possible cellulitis Doppler ultrasound was negative for any DVT possibly mild cellulitis likely from gram-positive skin jael 2-penicillin allergy 3-patient white count has normalized blood cultures has been negative, 4the patient has received adequate antibiotic for the leg cellulitis currently being monitored closely off antibiotic therapy Dictation was produced using [employer] dictation software. please excuse any grammatical, word or spelling errors. Time with Patient: Less than 30
--- NOTE | 2023-12-17 20:40 | P.PN ---
Subjective patient 57-year-old lady with past medical history significant for hyperlipidemia, alcohol abuse, seizure disorder, COPD presented to ER for compla int of not feeling well for the last few days. Patient has history of heavy alcohol abuse. Patient stated that for the last few days she has not been feeling well. Patient has been complaining of left lower extremity swelling and pain. Patient stated that the left lower extremity felt very warm. Patient also complains of shortness of breath on exertion. When patient went to the ER she started complaining of intermittent chest pain. There was no complaint of palpitation. There was no clear orthopnea or PND. Initial lab work done in the ER showed WBC 7.8, hemoglobin 11.9, platelet count 376, sodium 137, potassium 3.8, BUN 7, creatinine 0.46, glucose 115, troponin 0.012 EKG done in the ER showed heart rate of 93, no ST segment elevation or depression seen, no T-wave inversions seen. Chest x-ray done in the ER no consolidations, no pleural effusions. Patient admitted to internal medicine service 12/04. Patient seen and examined. Blood work done this morning showed WBC 15.5, hemoglobin 12.3, sodium 140, potassium 4, BUN 5, creatinine 0.40 CIWA scale was 13. continues to be agitated and confused. 12/06/23 I am resuming the care of the patient today. Patient seen and examined at bedside in the emergency room 8. Patient looks confused to time place and person, speech she could not tell she is in the hospital, the date or the name of the president. She does not look to have insight into her illness. She may follow simple commands. She complains from pain in her left knee however there is no deformity or discoloration. Also left thigh but no leg swelling or pain or tenderness. She denies chest pain or dyspnea. She denies headache or dizziness. Meningeal signs are absent. Abdomen looks soft also with no abdominal pain. Patient was confused and combative, sitter at bedside for safety. She still has high CIWA score about 8-12, slightly better since admission. She is currently on CIWA protocol as well as Librium 50 mg 4 times daily. Yesterday she developed significant leukocytosis 7.8 up to 15.5 Chest x-ray on admission was negative, we will going to repeat chest x-ray as she is confused and alcoholic should be at risk of aspiration. We will check urine analysis and urine culture since it was not sent Check pro- Calcitonin and CRP also will check VBG Her bicarb is chronically low at time and has been about 17-18 during this admission Hand Hardener evaluated the patient for atypical chest pain and sign of Currently patient on ceftriaxone 2 g, she is getting CIWA and Librium also she is on normal saline 75 mL/h 12/07/2023 Patient admitted initially for left lower extremity cellulitis and alcohol withdrawal Her left lower extremity cellulitis is improving, however patient today is very confused and since yesterday when I saw her, today there is a sitter at bedside Patient herself was very sleepy hard to wake up however earlier as per staff she woke up in the morning and she took a shower and had breakfast but she was somewhat confused Patient is currently on Librium 50 mg 4 times daily which might be contributing to her drowsiness and confusion therefore we are going to lower the dose to 25 mg 3 times daily as her CIWA score is improving. Meningeal signs absent no headache no leukocytosis no hyponatremia. WBC is mildly elevated today but was normal yesterday. Patient is afebrile CT of the brain is negative for acute process, chest x-ray is negative for acute process, urine analysis is normal, procalcitonin and CRP are both within the reference range pH is slightly elevated 7.4 but pCO2 is normal Discussed with staff 12/07/26 Patient started waking up today, she is sitting up in bed, awake eating her lunch by herself, still mildly confused, patient has poor dentition. She denies specific complaint We will lower her Librium 25 mg down to 20 mg 3 times daily. Vital stable Will check labs tomorrow Remains on cellulitis with ID team on the case 12/10/2023 Patient was agitated overnight She received Ativan job coach and currently she is sleepy Earlier she was awake and able to eat She is still on Librium 20 mg 3 times daily we are going to lowered to twice daily as part of the taper At the same time we added Seroquel 25 mg nightly as and 25 mg twice daily as needed She is on ceftriaxone 12/10/2023 Will try to taper the patient off benzodiazepines. Currently she is on Librium 20 mg 3 times a day taper down to twice daily. She was agitated despite Seroquel. We have to give her small dose of Ativan once or twice at the dose of 0.5 mg each time. We will check EKG for further monitoring Discussed with staff 12/12/2023 Patient is sleeping the whole day, she did not get her Librium dose this morning so it was discontinued She is getting Seroquel 50 mg at bedtime plus trazodone 50 methadone 50 mg started yesterday. Sitter remains at bedside To taper her off benzodiazepine to improve her mentation On reviewing home medication she was not on benzodiazepine 12/13/2023 pt was doing well in the morning, she was calm and bedside sitter was discontinued in preparation for discharge The afternoon patient become more agitated and violent with the staff and as per nurse patient was lying in bed after that for 4 minutes with her eyes rolled up which what looks like a seizure to the bedside nurse Also is there is some reports of hitting her head during this time. We obtained CT of the brain which was negative for acute process 1 mg of IV Ativan is given Patient is already on Keppra At nighttime she is getting Seroquel and trazodone 12/14/2023 Patient awake and calm when I saw the patient this morning However she still getting periods of agitation especially in the afternoon after rounding. Yesterday the bedside nurse suspected patient had a seizure). She was unresponsive for about 4 minutes. As such neurology team was consulted and discussed the case with the neurologist, their input is appreciated, currently MRI of the brain and EEG are pending, also Keppra dose was increased to 1000 into 1500 twice daily. Also we will consult psychiatry team for further Evaluation and recommendations. Patient kept off antibiotics 12/15/2023 Patient was agitated overnight requiring 1 dose of Haldol last evening This morning was very sleepy and could not answer questions in home baby sitter still at bedside no family at bedside 12/16/2023 pt is still sleepy during the days and can not participate in activity , she got agitated over night and ending up receiving sedatives earlier she was awake and ate her meal with no problems vitals are stable and labs obtained today which were basically unremarkable neurology and psychiatry consults were obtained for further evaluation and management 12/17/2023 pt is awake and relaxed , family at bed side no chest pain , no dyspnea pt still gets agitated at times , still has sitter at bed side pt is been workup and follow up by neurology and psychiatry service pt will benefits from rehab upon discharge Objective - Vital Signs Vital signs: Vital Signs Temp 97.3 F L 12/17/23 14:09 Pulse 106 H 12/17/23 14:09 Resp 16 12/17/23 14:09 BP 120/79 12/17/23 14:09 Pulse Ox 98 12/17/23 14:09 FiO2 Intake & Output 12/17/23 12/17/23 12/18/23 06:59 18:59 06:59 Intake Total 200 Balance 200 Intake: Oral 200 Other: Voiding Method Toilet Bedside Commode # Voids 2 2 - Exam -GENERAL: The patient is alert and oriented x0, not in any acute distress. Well developed, well nourished. HEENT: Pupils are round and equally reacting to light. EOMI. No scleral icterus. No conjunctival pallor. Normocephalic, atraumatic. No pharyngeal erythema. No thyromegaly. CARDIOVASCULAR: S1 and S2 present. No murmurs, rubs, or gallops. PULMONARY: Chest is clear to auscultation, no wheezing , no crackles. ABDOMEN: Soft, nontender, nondistended, normoactive bowel sounds. No palpable organomegaly. MUSCULOSKELETAL: No joint swelling or deformity. EXTREMITIES: No cyanosis, clubbing, or pedal edema. NEUROLOGICAL: Gross neurological examination did not reveal any focal deficits. SKIN: No rashes. no petechiae. - Labs CBC & Chem 7: 12/15/23 05:36 12/15/23 05:36 Assessment and Plan Assessment: Alcohol withdrawal with delirium tremens Metabolic/toxic encephalopathy secondary to above. Most likely secondary to medication effect, we lowered the Librium Left lower extremity cellulitis improving Atypical chest pain, improved Left knee and thigh pain Alcohol use disorder Leukocytosis Hyperlipidemia History of COPD History of seizure, currently on seizure medication Keppra 1000 twice daily which is resumed Plan: Patient currently off benzodiazepines Neurology consult on the case MRI of brain pending and EEG is reviewed Keppra dose increased to 1500 mg Psychiatric team consult Continue with thiamine on Seroquel 25 mg at bedtime and trazodone 50 mg at bedtime ID team consult on the case , currently off antibiotic Continue with sitter at bedside DVT prophylaxis, mechanical till CT of the brain is negative GI prophylaxis Pepcid Prognosis is guarded
--- NOTE | 2023-12-18 12:26 | P.PN ---
Subjective patient 57-year-old lady with past medical history significant for hyperlipidemia, alcohol abuse, seizure disorder, COPD presented to ER for compla int of not feeling well for the last few days. Patient has history of heavy alcohol abuse. Patient stated that for the last few days she has not been feeling well. Patient has been complaining of left lower extremity swelling and pain. Patient stated that the left lower extremity felt very warm. Patient also complains of shortness of breath on exertion. When patient went to the ER she started complaining of intermittent chest pain. There was no complaint of palpitation. There was no clear orthopnea or PND. Initial lab work done in the ER showed WBC 7.8, hemoglobin 11.9, platelet count 376, sodium 137, potassium 3.8, BUN 7, creatinine 0.46, glucose 115, troponin 0.012 EKG done in the ER showed heart rate of 93, no ST segment elevation or depression seen, no T-wave inversions seen. Chest x-ray done in the ER no consolidations, no pleural effusions. Patient admitted to internal medicine service 12/04. Patient seen and examined. Blood work done this morning showed WBC 15.5, hemoglobin 12.3, sodium 140, potassium 4, BUN 5, creatinine 0.40 CIWA scale was 13. continues to be agitated and confused. 12/06/23 I am resuming the care of the patient today. Patient seen and examined at bedside in the emergency room 8. Patient looks confused to time place and person, speech she could not tell she is in the hospital, the date or the name of the president. She does not look to have insight into her illness. She may follow simple commands. She complains from pain in her left knee however there is no deformity or discoloration. Also left thigh but no leg swelling or pain or tenderness. She denies chest pain or dyspnea. She denies headache or dizziness. Meningeal signs are absent. Abdomen looks soft also with no abdominal pain. Patient was confused and combative, sitter at bedside for safety. She still has high CIWA score about 8-12, slightly better since admission. She is currently on CIWA protocol as well as Librium 50 mg 4 times daily. Yesterday she developed significant leukocytosis 7.8 up to 15.5 Chest x-ray on admission was negative, we will going to repeat chest x-ray as she is confused and alcoholic should be at risk of aspiration. We will check urine analysis and urine culture since it was not sent Check pro- Calcitonin and CRP also will check VBG Her bicarb is chronically low at time and has been about 17-18 during this admission [employer] evaluated the patient for atypical chest pain and sign of Currently patient on ceftriaxone 2 g, she is getting CIWA and Librium also she is on normal saline 75 mL/h 12/07/2023 Patient admitted initially for left lower extremity cellulitis and alcohol withdrawal Her left lower extremity cellulitis is improving, however patient today is very confused and since yesterday when I saw her, today there is a sitter at bedside Patient herself was very sleepy hard to wake up however earlier as per staff she woke up in the morning and she took a shower and had breakfast but she was somewhat confused Patient is currently on Librium 50 mg 4 times daily which might be contributing to her drowsiness and confusion therefore we are going to lower the dose to 25 mg 3 times daily as her CIWA score is improving. Meningeal signs absent no headache no leukocytosis no hyponatremia. WBC is mildly elevated today but was normal yesterday. Patient is afebrile CT of the brain is negative for acute process, chest x-ray is negative for acute process, urine analysis is normal, procalcitonin and CRP are both within the reference range pH is slightly elevated 7.4 but pCO2 is normal Discussed with staff 12/07/26 Patient started waking up today, she is sitting up in bed, awake eating her lunch by herself, still mildly confused, patient has poor dentition. She denies specific complaint We will lower her Librium 25 mg down to 20 mg 3 times daily. Vital stable Will check labs tomorrow Remains on cellulitis with ID team on the case 12/10/2023 Patient was agitated overnight She received Ativan motor coach driver and currently she is sleepy Earlier she was awake and able to eat She is still on Librium 20 mg 3 times daily we are going to lowered to twice daily as part of the taper At the same time we added Seroquel 25 mg nightly as and 25 mg twice daily as needed She is on ceftriaxone 12/10/2023 Will try to taper the patient off benzodiazepines. Currently she is on Librium 20 mg 3 times a day taper down to twice daily. She was agitated despite Seroquel. We have to give her small dose of Ativan once or twice at the dose of 0.5 mg each time. We will check EKG for further monitoring Discussed with staff 12/12/2023 Patient is sleeping the whole day, she did not get her Librium dose this morning so it was discontinued She is getting Seroquel 50 mg at bedtime plus trazodone 50 methadone 50 mg started yesterday. Sitter remains at bedside To taper her off benzodiazepine to improve her mentation On reviewing home medication she was not on benzodiazepine 12/13/2023 pt was doing well in the morning, she was calm and bedside sitter was discontinued in preparation for discharge The afternoon patient become more agitated and violent with the staff and as per nurse patient was lying in bed after that for 4 minutes with her eyes rolled up which what looks like a seizure to the bedside nurse Also is there is some reports of hitting her head during this time. We obtained CT of the brain which was negative for acute process 1 mg of IV Ativan is given Patient is already on Keppra At nighttime she is getting Seroquel and trazodone 12/14/2023 Patient awake and calm when I saw the patient this morning However she still getting periods of agitation especially in the afternoon after rounding. Yesterday the bedside nurse suspected patient had a seizure). She was unresponsive for about 4 minutes. As such neurology team was consulted and discussed the case with the neurologist, their input is appreciated, currently MRI of the brain and EEG are pending, also Keppra dose was increased to 1000 into 1500 twice daily. Also we will consult psychiatry team for further Evaluation and recommendations. Patient kept off antibiotics 12/15/2023 Patient was agitated overnight requiring 1 dose of Haldol last evening This morning was very sleepy and could not answer questions dowel pin worker still at bedside no family at bedside 12/16/2023 pt is still sleepy during the days and can not participate in activity , she got agitated over night and ending up receiving sedatives earlier she was awake and ate her meal with no problems vitals are stable and labs obtained today which were basically unremarkable neurology and psychiatry consults were obtained for further evaluation and management 12/17/2023 pt is awake and relaxed , family at bed side no chest pain , no dyspnea pt still gets agitated at times , still has sitter at bed side pt is been workup and follow up by neurology and psychiatry service pt will benefits from rehab upon discharge 12/18/23 Patient has been calm. She feels better. This improvement was noticed gradually after Keppra dose was increased to 1500 mg twice daily MRI of the brain still pending I discussed with bedside nurse to discontinue sitter if patient remains calm la ter on in the afternoon or evening Patient hemodynamically stable Labs and images were reviewed Patient is not getting any benzodiazepine now she is on Seroquel 25 mg and trazodone 50 mg If patient remains calm by Wednesday she may be considered for discharge to rehab if medically stable Objective - Vital Signs Vital signs: Vital Signs Temp 98.0 F 12/18/23 07:03 Pulse 85 12/18/23 07:03 Resp 16 12/18/23 07:03 BP 144/92 12/18/23 07:03 Pulse Ox 99 12/18/23 07:03 FiO2 Intake & Output 12/17/23 12/18/23 12/18/23 18:59 06:59 18:59 Other: Voiding Method Bedside Commode # Voids 2 - Exam -GENERAL: The patient is alert and oriented x0, not in any acute distress. Well developed, well nourished. HEENT: Pupils are round and equally reacting to light. EOMI. No scleral icterus. No conjunctival pallor. Normocephalic, atraumatic. No pharyngeal erythema. No thyromegaly. CARDIOVASCULAR: S1 and S2 present. No murmurs, rubs, or gallops. PULMONARY: Chest is clear to auscultation, no wheezing , no crackles. ABDOMEN: Soft, nontender, nondistended, normoactive bowel sounds. No palpable organomegaly. MUSCULOSKELETAL: No joint swelling or deformity. EXTREMITIES: No cyanosis, clubbing, or pedal edema. NEUROLOGICAL: Gross neurological examination did not reveal any focal deficits. SKIN: No rashes. no petechiae. - Labs CBC & Chem 7: 12/15/23 05:36 12/15/23 05:36 Assessment and Plan Assessment: Alcohol withdrawal with delirium tremens Metabolic/toxic encephalopathy secondary to above. Most likely secondary to medication effect, we lowered the Librium Left lower extremity cellulitis improving Atypical chest pain, improved Left knee and thigh pain Alcohol use disorder Leukocytosis Hyperlipidemia History of COPD History of seizure, currently on seizure medication Keppra 1000 twice daily which is resumed Plan: Patient currently on Keppra 1500 mg per neurologist Consider discontinuing the sitter with close monitoring Patient currently off benzodiazepines Neurology consult on the case MRI of brain pending Results for EEG is reviewed Keppra dose increased to 1500 mg Psychiatric team consult Continue with thiamine on Seroquel 25 mg at bedtime and trazodone 50 mg at bedtime ID team consult on the case , currently off antibiotic Continue with sitter at bedside DVT prophylaxis, mechanical till CT of the brain is negative GI prophylaxis Pepcid Prognosis is guarded
--- NOTE | 2023-12-18 15:23 | P.PN ---
Subjective Progress Note Date: 12/18/23 I am following-up with patient and she states is doing better. Per the primary team, feels she is doing better after increase of Keppra. still pending MRI Brain. Objective - Vital Signs Vital signs: Vital Signs Temp 98.2 F 12/18/23 14:31 Pulse 101 H 12/18/23 14:31 Resp 16 12/18/23 14:31 BP 133/81 12/18/23 14:31 Pulse Ox 99 12/18/23 14:31 FiO2 Intake & Output 12/17/23 12/18/23 12/18/23 18:59 06:59 18:59 Other: Voiding Method Bedside Commode # Voids 2 - Exam GENERAL: The patient is not in acute distress. NEUROLOGICAL: Higher mental function: The patient is awake, alert, oriented to self. She states she was over cousin's house. She stated the year is 2001 then later 2003 and last 2007. Is following simple commands. No aphasia and no neglect. Cranial nerves: The pupils are round, equal and reactive to light. Visual lund are full to confrontation throughout. Extraocular movement is rotatory nystagmus looking to right and left. Facial sensation is normal to touch throughout. The facial strength is normal throughout. Hearing is normal bilaterally to hand rub. Tongue is midline and moved [id number] without any difficulty. No dysarthria is noted. Shoulder shrug is normal bilaterally. Motor: Using a walker from bathroom to bed without any issues. The strength is strength is 5/5 uppers and lowers lifting symmetrically above gravity. Normal tone and bulk. Cerebellum: Normal finger to nose bilaterally. Sensation: Sensation is normal to touch throughout. Some of the work-up during this hospital visit consisted of: Most recent sodium is 148 Serum glucose is 97 Calcium is 9.9 Last magnesium was 1.7 Keppra level is 40.7 (normal is 3-60). Ammonia is less than 9 CT head on 12/13/2023 is reported as no acute bleed or mass effect. No evidence of acute trauma. I personally reviewed the CT and I agree there is no acute or subacute ischemia or acute process appreciated. Routine EEG: Is abnormal study. The is epileptiform discharge over stemming over the right frontal which can increase risk for seizure. There is no seizure during this study. No focal slowing and background is normal. - Labs CBC & Chem 7: 12/15/23 05:36 12/15/23 05:36 Assessment and Plan Assessment: This is a 57-year-old woman with history of seizure, alcohol use, tobacco use, medication noncompliance who presents because of left lower extremity cellulitis on 12/03/2023. Yesterday in the late afternoon and a team was called since the patient was unresponsive and had gaze deviation upwards into the right but responded after sternal rub immediately concerning for ?seizure was on Ativan 1 mg. Benzodiazepine was weaned down eventually stopped stopped a couple days ago Questionable breakthrough seizure on Had repeat CT head and was nega tive for acute process. EEG showed epileptiform discharge over the right frontal but no seizure. On examination has nystagmus looking to right and left of unknown etiology. History of seizure and patient does acknowledge she is noncompliant with medication and continues to use alcohol Left lower extremity cellulitis Hyponatremia Alcohol use daily Tobacco use (smokes 1.5 PPD) Medication noncompliance Plan: Pending MRI of the brain since patient has nystagmus to rule out any central process. Continue Keppra 1500 mg twice a day (I have increased it on 12/14/2023 from 1gm bid to 1.5mg because of breakthrough seizure). Seizure precautions seizure pads Please [place] DMV because of seizure, to avoid driving for 6 months until seizure free, avoid heights, swim unassisted or using heavy machinery. Will defer the rest of the medical management the primary team and other spe cialist Was counseled on medication compliance as well as cessation of alcohol and tobacco use Will discharge recommend the patient to follow-up with a neurologist as an outpatient within 1 to 2 weeks. The plan is discussed with patient and primary attending. Dr. Medley will resume neurology service on 12/20/2023 A.M. Time with Patient: Less than 30
[2023-12-18] MEDS: QUEtiapine 25 MG TAB PO STA (17:46)
[2023-12-19 20:11] VITALS: RESP 19
[2023-12-20 03:06] VITALS: BP 104/68; PULSE 78; TEMP 97.8
--- NOTE | 2023-12-20 03:54 | P.PN ---
Subjective patient 57-year-old lady with past medical history significant for hyperlipidemia, alcohol abuse, seizure disorder, COPD presented to ER for compla int of not feeling well for the last few days. Patient has history of heavy alcohol abuse. Patient stated that for the last few days she has not been feeling well. Patient has been complaining of left lower extremity swelling and pain. Patient stated that the left lower extremity felt very warm. Patient also complains of shortness of breath on exertion. When patient went to the ER she started complaining of intermittent chest pain. There was no complaint of palpitation. There was no clear orthopnea or PND. Initial lab work done in the ER showed WBC 7.8, hemoglobin 11.9, platelet count 376, sodium 137, potassium 3.8, BUN 7, creatinine 0.46, glucose 115, troponin 0.012 EKG done in the ER showed heart rate of 93, no ST segment elevation or depression seen, no T-wave inversions seen. Chest x-ray done in the ER no consolidations, no pleural effusions. Patient admitted to internal medicine service 12/04. Patient seen and examined. Blood work done this morning showed WBC 15.5, hemoglobin 12.3, sodium 140, potassium 4, BUN 5, creatinine 0.40 CIWA scale was 13. continues to be agitated and confused. 12/06/23 I am resuming the care of the patient today. Patient seen and examined at bedside in the emergency room 8. Patient looks confused to time place and person, speech she could not tell she is in the hospital, the date or the name of the president. She does not look to have insight into her illness. She may follow simple commands. She complains from pain in her left knee however there is no deformity or discoloration. Also left thigh but no leg swelling or pain or tenderness. She denies chest pain or dyspnea. She denies headache or dizziness. Meningeal signs are absent. Abdomen looks soft also with no abdominal pain. Patient was confused and combative, sitter at bedside for safety. She still has high CIWA score about 8-12, slightly better since admission. She is currently on CIWA protocol as well as Librium 50 mg 4 times daily. Yesterday she developed significant leukocytosis 7.8 up to 15.5 Chest x-ray on admission was negative, we will going to repeat chest x-ray as she is confused and alcoholic should be at risk of aspiration. We will check urine analysis and urine culture since it was not sent Check pro- Calcitonin and CRP also will check VBG Her bicarb is chronically low at time and has been about 17-18 during this admission Move Coordinator evaluated the patient for atypical chest pain and sign of Currently patient on ceftriaxone 2 g, she is getting CIWA and Librium also she is on normal saline 75 mL/h 12/07/2023 Patient admitted initially for left lower extremity cellulitis and alcohol withdrawal Her left lower extremity cellulitis is improving, however patient today is very confused and since yesterday when I saw her, today there is a sitter at bedside Patient herself was very sleepy hard to wake up however earlier as per staff she woke up in the morning and she took a shower and had breakfast but she was somewhat confused Patient is currently on Librium 50 mg 4 times daily which might be contributing to her drowsiness and confusion therefore we are going to lower the dose to 25 mg 3 times daily as her CIWA score is improving. Meningeal signs absent no headache no leukocytosis no hyponatremia. WBC is mildly elevated today but was normal yesterday. Patient is afebrile CT of the brain is negative for acute process, chest x-ray is negative for acute process, urine analysis is normal, procalcitonin and CRP are both within the reference range pH is slightly elevated 7.4 but pCO2 is normal Discussed with staff 12/07/26 Patient started waking up today, she is sitting up in bed, awake eating her lunch by herself, still mildly confused, patient has poor dentition. She denies specific complaint We will lower her Librium 25 mg down to 20 mg 3 times daily. 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 Currently she is on Librium 20 mg 3 times a day taper down to twice daily. She was agitated despite Seroquel. We have to give her small dose of Ativan once or twice at the dose of 0.5 mg each time. We will check EKG for further monitoring Discussed with staff 12/12/2023 Patient is sleeping the whole day, she did not get her Librium dose this morning so it was discontinued She is getting Seroquel 50 mg at bedtime plus trazodone 50 methadone 50 mg started yesterday. Sitter remains at bedside To taper her off benzodiazepine to improve her mentation On reviewing home medication she was not on benzodiazepine 12/13/2023 pt was doing well in the morning, she was calm and bedside sitter was discontinued in preparation for discharge The afternoon patient become more agitated and violent with the staff and as per nurse patient was lying in bed after that for 4 minutes with her eyes rolled up which what looks like a seizure to the bedside nurse Also is there is some reports of hitting her head during this time. We obtained CT of the brain which was negative for acute process 1 mg of IV Ativan is given Patient is already on Keppra At nighttime she is getting Seroquel and trazodone 12/14/2023 Patient awake and calm when I saw the patient this morning However she still getting periods of agitation especially in the afternoon after rounding. Yesterday the bedside nurse suspected patient had a seizure). She was unresponsive for about 4 minutes. As such neurology team was consulted and discussed the case with the neurologist, their input is appreciated, currently MRI of the brain and EEG are pending, also Keppra dose was increased to 1000 into 1500 twice daily. Also we will consult psychiatry team for further Evaluation and recommendations. 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 no family at bedside 12/16/2023 pt is still sleepy during the days and can not participate in activity , she got agitated over night and ending up receiving sedatives earlier she was awake and ate her meal with no problems vitals are stable and labs obtained today which were basically unremarkable neurology and psychiatry consults were obtained for further evaluation and management 12/17/2023 pt is awake and relaxed , family at bed side no chest pain , no dyspnea pt still gets agitated at times , still has sitter at bed side pt is been workup and follow up by neurology and psychiatry service pt will benefits from rehab upon discharge 12/18/23 Patient has been calm. She feels better. This improvement was noticed gradually after Keppra dose was increased to 1500 mg twice daily MRI of the brain still pending I discussed with bedside nurse to discontinue sitter if patient remains calm la ter on in the afternoon or evening Patient hemodynamically stable Labs and images were reviewed Patient is not getting any benzodiazepine now she is on Seroquel 25 mg and trazodone 50 mg If patient remains calm by Wednesday she may be considered for discharge to rehab if medically stable 12/19/23 Patient still declined education at times especially in the afternoon or early evening where she becomes combative, difficult with the staff, difficult to reorient. Yesterday we gave her 1 dose of Seroquel 25 mg in the afternoon and this helped her calm down therefore we are going to increase the dose of Seroquel from 25 mg at bedtime to twice daily starting tomorrow. With close monitoring of QTc. Will order EKG in the morning to check QTc. Previously was not prolonged. Neurology service already on the case and Keppra increased to 1500 mg. Patient pending MRI of the brain Psychiatric team is consulted as well but Patient was sleeping when they evaluated the patient. She is also on trazodone 50 mg at bedtime this can be considered to be increased to 100 mg tomorrow Seroquel twice daily was not enough Once we controlling her agitation, we can discontinue the sitter so patient can be discharged to rehab Objective - Vital Signs Vital signs: Vital Signs Temp 97.8 F 12/19/23 13:54 Pulse 94 12/19/23 13:54 Resp 16 12/19/23 13:54 BP 131/85 12/19/23 13:54 Pulse Ox 97 12/19/23 13:54 FiO2 Intake & Output 12/18/23 12/19/23 12/19/23 18:59 06:59 18:59 Other: Voiding Method Bedside Commode Bedside Commode # Voids 3 2 - Exam -GENERAL: The patient is alert and oriented x0, not in any acute distress. Well developed, well nourished. HEENT: Pupils are round and equally reacting to light. EOMI. No scleral icterus. No conjunctival pallor. Normocephalic, atraumatic. No pharyngeal erythema. No thyromegaly. CARDIOVASCULAR: S1 and S2 present. No murmurs, rubs, or gallops. PULMONARY: Chest is clear to auscultation, no wheezing , no crackles. ABDOMEN: Soft, nontender, nondistended, normoactive bowel sounds. No palpable organomegaly. MUSCULOSKELETAL: No joint swelling or deformity. EXTREMITIES: No cyanosis, clubbing, or pedal edema. NEUROLOGICAL: Gross neurological examination did not reveal any focal deficits. SKIN: No rashes. no petechiae. - Labs CBC & Chem 7: 12/15/23 05:36 12/15/23 05:36 Assessment and Plan Assessment: Alcohol withdrawal with delirium tremens Metabolic/toxic encephalopathy secondary to above. Most likely secondary to med ication effect, we lowered the Librium Left lower extremity cellulitis improving Atypical chest pain, improved Left knee and thigh pain Alcohol use disorder Leukocytosis Hyperlipidemia History of COPD History of seizure, currently on seizure medication Keppra 1000 twice daily which is resumed Plan: Patient currently on Keppra 1500 mg per neurologist Consider discontinuing the sitter with close monitoring Patient currently off benzodiazepines Neurology consult on the case MRI of brain pending Results for EEG is reviewed Keppra dose increased to 1500 mg Psychiatric team consult Continue with thiamine on Seroquel 25 mg at bedtime increased to twice daily and trazodone 50 mg at bedtime ID team consult on the case , currently off antibiotic Continue with sitter at bedside DVT prophylaxis, mechanical till CT of the brain is negative GI prophylaxis Pepcid Prognosis is guarded
[2023-12-20] MEDS: QUEtiapine 25 MG TAB PO SCH (08:18)
[2023-12-20 08:35] LABS: Basophils # (A) 0.05 X 10*3/uL (0.00-0.10); Basophils % (A) 0.6 %; Eosinophils % (A) 1.2 %; HCT 38.4 % (37.2-46.3); HGB 12.6 g/dL (12.0-15.0); Lymphocytes % (A) 27.1 %; MCH 33.5 pg (27.0-32.0); MCHC 32.8 g/dL (32.0-37.0); MCV 102.1 FL (80.0-97.0); Mean Platelet Volume 10.7 FL (9.5-12.2); Monocytes # (A) 1.02 X 10*3/uL (0.20-1.00); Monocytes % (A) 12.5 %; NRBC Per 100 WBC 0 X 10*3/uL (0.00-0.01); Neutrophils # (A) 4.71 X 10*3/uL (1.80-7.70); Platelet Count 349 X 10*3/uL (140-440); RBC 3.76 X 10*6/uL (4.10-5.20); RDW 13.4 % (11.5-14.5); WBC 8.13 X 10*3/uL (4.50-10.00)
[2023-12-20 08:45] LABS: BUN/Creat Ratio 18.33 Ratio (12.00-20.00); Carbon Dioxide 27.2 mmol/L (21.6-31.8); Chloride 106 mmol/L (96-109); Glucose 83 mg/dL (70-110); Potassium 4.2 mmol/L (3.5-5.5); Sodium 144 mmol/L (135-145)
== END 2023-12-20 15:25 | disposition home health service (06) | DRG 383 ==
LOC: EC 22:51 → 6NMEDSUR 12-04 00:57 → OBSVTOIN 12-04 00:58 → 6NMEDSUR 12-04 14:30 → 4SSUR 12-05 05:50
PROVIDERS: ADMIT Hospitalist; ATTEND Hospitalist
DX: L03.116 Cellulitis of left lower limb (principal); E86.0 Dehydration; E87.1 Hypo-osmolality and hyponatremia; G92.8 Other toxic encephalopathy; E78.5 Hyperlipidemia, unspecified; F10.231 Alcohol dependence with withdrawal delirium; F17.210 Nicotine dependence, cigarettes, uncomplicated; F43.10 Post-traumatic stress disorder, unspecified; F41.9 Anxiety disorder, unspecified; R45.1 Restlessness and agitation; D72.829 Elevated white blood cell count, unspecified; R07.9 Chest pain, unspecified; G40.909 Epilepsy, unspecified, not intractable, without status epilepticus; K59.00 Constipation, unspecified; H55.00 Unspecified nystagmus; I11.0 Hypertensive heart disease with heart failure; I50.9 Heart failure, unspecified; I25.2 Old myocardial infarction; J44.1 Chronic obstructive pulmonary disease with (acute) exacerbation; Z79.899 Other long term (current) drug therapy; Z88.0 Allergy status to penicillin; Z91.148 Patient's other noncompliance with medication regimen for other reason; Z89.021 Acquired absence of right finger(s); Z28.310 Unvaccinated for COVID-19; Z71.41 Alcohol abuse counseling and surveillance of alcoholic; Z88.6 Allergy status to analgesic agent; Z88.8 Allergy status to other drugs, medicaments and biological substances
CPT/HCPCS: 36415; 70450; 71045; 73501; 80048; 80053; 80076; 80177; 80306; 81003; 82140; 82803; 83735; 83880; 84100; 84145; 84484; 85025; 85610; 85730; 86140; 87040; 93005; 93970; 94640; 94760; 95819; 96374; 96375; 96376; 99285

== ENCOUNTER 2024-01-01 09:56 | Emergency (ER) | payer OTHER ==
--- NOTE | 2024-01-01 10:40 | ED ---
General Adult HPI - General Chief complaint: Back Pain/Injury Stated complaint: Back pain Time Seen by Provider: 01/01/24 09:57 Source: patient, EMS, RN notes reviewed, old records reviewed Mode of arrival: EMS Limitations: no limitations - History of Present Illness Initial comments: 58-year-old female presenting with variety of complaints. Patient complains of chronic back pain which is unchanged. No recent fall. She states that she had some mild dyspnea this morning and left shoulder pain which was again atraumatic. Patient states that she has a previous history of Takotsubo's. She denies current chest pain. Denies current dyspnea. Patient also admits to alcohol consumption. - Related Data Home Medications Medication Instructions Recorded Confirmed Fluorometholone 0.1% Ophth Sharmin 1 drops BOTH EYES BID 08/02/23 12/04/23 [Fml] Loteprednol Etabonate [Alrex] 1 drop BOTH EYES BID 08/02/23 12/04/23 Ketorolac [Toradol] 10 mg PO Q6H PRN 08/23/23 12/04/23 Atorvastatin [Lipitor] 20 mg PO HS 09/06/23 12/04/23 Mirtazapine [Remeron] 15 mg PO HS 09/06/23 12/04/23 Albuterol Inhaler [Ventolin Hfa 2 puff INHALATION RT-Q6H PRN 11/18/23 12/04/23 Inhaler] Multivitamins, Thera [Multivitamin 1 tab PO DAILY 11/18/23 12/04/23 (formulary)] Nitroglycerin Sl Tabs [Nitrostat] 0.4 mg SL Q5M PRN 11/18/23 12/04/23 Previous Rx's Medication Instructions Recorded Potassium Chloride 20 meq PO DAILY #60 cap 09/07/23 Thiamine [Vitamin B-1] 100 mg PO DAILY@1200 #30 tab 11/20/23 Nicotine 21Mg/24Hr Patch [Habitrol] 1 patch TRANSDERM DAILY patch 12/20/23 QUEtiapine [SEROquel] 25 mg PO BID #60 tab 12/20/23 QUEtiapine [SEROquel] 25 mg PO BID PRN tab 12/20/23 levETIRAcetam [Keppra] 1,500 mg PO BID 30 Days #180 tab 12/20/23 traZODone HCL [Desyrel] 50 mg PO HS #30 tab 12/20/23 Allergies Allergy/AdvReac Type Severity Reaction Status Date / Time Penicillins Allergy Rash/Hives/Swelling Verified 01/01/24 10:03 all over body NSAIDS (Non-Steroidal AdvReac Unknown upset Verified 01/01/24 10:03 Anti-Inflamma stomach sertraline HCl [From Zoloft] AdvReac Suicidal/Ag Verified 01/01/24 10:03 ression Review of Systems ROS Statement: Those systems with pertinent positive or pertinent negative responses have been documented in the HPI. ROS Other: All systems not noted in ROS Statement are negative. Past Medical History Past Medical History: COPD, Liver Disease, Myocardial Infarction ([place]), Seizure Disorder, Vascular Disorder Additional Past Medical History / Comment(s): constpation, last bowel movement 4 days ago, feeling bloated,feeling of fullness, and abdominal pain, feels hungry then over eats then vomits to feel better, LAST SEIZURE - JANUARY 2021, "broken heart syndrome"., elevated liver enzymes, "dislocated disks", hx cervical cancer Last Myocardial Infarction Date:: 2019 History of Any Multi-Drug Resistant Organisms: None Reported Past Surgical History: Section, Heart Catheterization, Tubal Ligation Additional Past Surgical History / Comment(s): ORIF rt ankle/hardware later removed, exploratory lap, PAIN CLINIC PROCEDURE, BILAT CATARACTS REMOVED WITH LENS IMPLANTS, procedure to open a vein in left leg-couldn't confirm which leg, partial amputation rt hand middle finger, "procedure to remove cervical cancer" Past Anesthesia/Blood Transfusion Reactions: No Reported Reaction Past Psychological History: Anxiety, Bipolar, Depression, PTSD Smoking Status: Current every day smoker Past Alcohol Use History: Abuse, Daily, Heavy Past Drug Use History: Marijuana - Past Family History Father Family Medical History: Cancer, Prostate Disorder, Pulmonary Embolus Sister(s) Family Medical History: Cancer Brother(s) Family Medical History: Cancer Additional Family Medical History / Comment(s): colon and bladder General Exam Limitations: no limitations General appearance: alert, in no apparent distress Head exam: Present: atraumatic, normocephalic Eye exam: Present: normal appearance, PERRL ENT exam: Present: normal exam Neck exam: Present: normal inspection. Absent: tenderness, meningismus Respiratory exam: Present: normal lung sounds bilaterally. Absent: respiratory distress, wheezes Cardiovascular Exam: Present: regular rate, normal rhythm GI/Abdominal exam: Present: soft. Absent: distended, tenderness, guarding Extremities exam: Present: pedal edema Neurological exam: Present: alert, oriented X3 Psychiatric exam: Present: normal affect, normal mood Skin exam: Present: warm, intact Course Vital Signs 01/01/24 01/01/24 10:00 11:37 Temperature 97.9 F Pulse Rate 78 Respiratory 20 16 Rate Blood Pressure 156/92 154/99 O2 Sat by Pulse 99 Oximetry Medical Decision Making - Medical Decision Making Was pt. sent in by a medical professional or institution (, PA, [employer], urgent care, hospital, or residential...) When possible be specific @ -No Did you speak to anyone other than the patient for history (EMS, parent, family, police, friend...)? What history was obtained from this source @ -No Did you review nursing and triage notes (agree or disagree)? Why? @ -I reviewed and agree with nursing and triage notes Were old charts reviewed (outside hosp., previous admission, EMS record, old EKG, old radiological studies, urgent care reports/EKG's, residential records)? Report findings @ -No old charts were reviewed Differential Dyspnea: Coronary syndrome, arrhythmia, tamponade, asthma, COPD, pulmonary embolism, pneumonia, pneumothorax, pulmonary effusion, anaphylaxis, diabetic ketoacidosis, flailed chest, pulmonary contusion, diaphragmatic rupture, anemia, neuromusc ular, this is not meant to be an all-inclusive list. EKG interpreted by me (3pts min.). @ -EKG: Sinus rhythm rate of 77, VT interval 175, QRS duration 77, QTc [address] segment elevation. Artifact limiting assessment. X-rays interpreted by me (1pt min.). @Chest x-ray negative for acute cardiopulmonary disease. CT interpreted by me (1pt min.). @ -None done U/S interpreted by me (1pt. min.). @ -None done What testing was considered but not performed or refused? (CT, X-rays, U/S, labs)? Why? @ -None What meds were considered but not given or refused? Why? @ -None Did you discuss the management of the patient with other professionals (professionals i.e. , PA, [employer], lab, RT, psych nurse, psychologist social, steam flattener, teacher, amphibious operations officer, foster care case manager)? Give summary @ -No Was smoking cessation discussed for >3mins.? @ -No Was critical care preformed (if so, how long)? @ -No Were there social determinants of health that impacted care today? How? (Homelessness, low income, unemployed, alcoholism, drug addiction, transportation, low edu. Level, literacy, decrease access to med. care, custodial, rehab)? @ -No Was there de-escalation of care discussed even if they declined (Discuss DNR or withdrawal of care, Hospice)? DNR status @ -No What co-morbidities impacted this encounter? (DM, HTN, Smoking, COPD, CAD, Cancer, CVA, ARF, Chemo, Hep., AIDS, mental health diagnosis, sleep apnea, morbid obesity)? @COPD, chronic pain. Was patient admitted / discharged? Hospital course, mention meds given and route, prescriptions, significant lab abnormalities, going to OR and other pertinent info. @ -58-year-old female with multiple complaints, chronic back pain, dyspnea and left arm pain. Patient denies substernal chest pain. EKG is negative for ST segment changes. Chest x-ray is unremarkable. Patient has normal CBC, normal CMP, negative troponin. I do feel this patient is stable for discharge at this time. She should follow-up with her primary care provider. Undiagnosed new problem with uncertain prognosis? @ -No Drug Therapy requiring intensive monitoring for toxicity (Heparin, Nitro, Insulin, Cardizem)? @ -No Were any procedures done? @ -No Diagnosis/symptom? @ -Pain Acute, or Chronic, or Acute on Chronic? @Chronic Uncomplicated (without systemic symptoms) or Complicated (systemic symptoms)? @ -Default Side effects of treatment? @ -No Exacerbation, Progression, or Severe Exacerbation? @ -No Poses a threat to life or bodily function? How? (Chest pain, [place], [place], pneumonia, PE, COPD, DKA, ARF, appy, cholecystitis, CVA, Diverticulitis, Homicidal, Suicidal, threat to staff... and all critical care pts) @ -No - Lab Data Result diagrams: 01/01/24 10:39 01/01/24 11:50 Lab Results 07/01/01/24 01/01/24 Range/Units 10:39 10:39 11:50 WBC 10.2 (3.8-10.6) k/uL RBC 4.03 (3.80-5.40) m/uL Hgb 13.3 (11.4-16.0) gm/dL Hct 40.3 (34.0-46.0) % MCV 99.9 D (80.0-100.0) fL MCH 33.0 (25.0-35.0) pg MCHC 33.0 (31.0-37.0) g/dL RDW 13.8 (11.5-15.5) % Plt Count 376 (150-450) k/uL MPV 8.6 Neutrophils % 61 % Lymphocytes % 27 % Monocytes % 7 % Eosinophils % 2 % Basophils % 0 % Neutrophils # 6.3 (1.3-7.7) k/uL Lymphocytes # 2.8 (1.0-4.8) k/uL Monocytes # 0.7 (0-1.0) k/uL Eosinophils # 0.2 (0-0.7) k/uL Basophils # 0.0 (0-0.2) k/uL Sodium 139 (137-145) mmol/L Potassium 4.2 (3.5-5.1) mmol/L Chloride 111 H (98-107) mmol/L Carbon Dioxide 23 (22-30) mmol/L Anion Gap 5 mmol/L BUN 15 (7-17) mg/dL Creatinine 0.41 L (0.52-1.04) mg/dL Est GFR (CKD-EPI)AfAm >90 (>60 ml/min/1.73 sqM) Est GFR (CKD-EPI)NonAf >90 (>60 ml/min/1.73 sqM) Glucose 86 (74-99) mg/dL Calcium 9.4 (8.4-10.2) mg/dL Total Bilirubin 0.5 (0.2-1.3) mg/dL AST 25 (14-36) U/L ALT 10 (4-34) U/L Alkaline Phosphatase 72 (38-126) U/L Troponin I <0.012 (0.000-0.034) ng/mL Total Protein 6.1 L (6.3-8.2) g/dL Albumin 3.6 (3.5-5.0) g/dL Serum Alcohol <10 mg/dL Disposition Clinical Impression: Chronic low back pain Disposition: HOME SELF-CARE Condition: Fair Instructions (If sedation given, give patient instructions): Acute Low Back Pain (ED) Is patient prescribed a controlled substance at d/c from ED?: No Referrals: Henny Angel MD [Primary Care Provider] - 1-2 days Time of Disposition: 13:06
[2024-01-01 10:54] LABS: Basophils % (A) 0 %; Eosinophils # (A) 0.2 k/uL (0-0.7); Eosinophils % (A) 2 %; HCT 40.3 % (34.0-46.0); HGB 13.3 gm/dL (11.4-16.0); Lymphocytes # (A) 2.8 k/uL (1.0-4.8); Lymphocytes % (A) 27 %; Mean Platelet Volume 8.6; Monocytes # (A) 0.7 k/uL (0-1.0); Monocytes % (A) 7 %; Neutrophils # (A) 6.3 k/uL (1.3-7.7); Neutrophils % (A) 61 %; Platelet Count 376 k/uL (150-450); RBC 4.03 m/uL (3.80-5.40); RDW 13.8 % (11.5-15.5); WBC 10.2 k/uL (3.8-10.6)
[2024-01-01 11:19] LABS: MCV 99.9 fL (80.0-100.0)
--- NOTE | 2024-01-01 11:36 | XR ---
EXAMINATION TYPE: XR chest 2V DATE OF EXAM: 01/01/2024 10:55 AM CLINICAL INDICATION:Female, 58 years old with history of Chest Pain; [facility] COMPARISON: Chest radiographs from 12/06/2023 TECHNIQUE: XR chest 2V Frontal view of the chest. FINDINGS: Lungs/Pleura: There is no evidence of pleural effusion, focal consolidation, or pneumothorax. Pulmonary vascularity: Unremarkable. Heart/mediastinum: Cardiomediastinal silhouette is unremarkable. Musculoskeletal: No acute osseous pathology. IMPRESSION: No acute cardiopulmonary disease/process.
[2024-01-01 11:38] VITALS: RESP 16
[2024-01-01] MEDS: HYDROmorphone 0.5 MG/0.5 ML SYRINGE IVP STA (11:38)
[2024-01-01 12:22] LABS: ALT 10 U/L (4-34); AST 25 U/L (14-36); African American GFR (CKD) >90 (>60 ml/min/1.73 sqM); Albumin 3.6 g/dL (3.5-5.0); Alcohol <10 mg/dL; Alkaline Phosphatase 72 U/L (38-126); Anion Gap 5 mmol/L; Blood Urea Nitrogen 15 mg/dL (7-17); Calcium 9.4 mg/dL (8.4-10.2); Carbon Dioxide 23 mmol/L (22-30); Chloride 111 mmol/L (98-107); Glucose 86 mg/dL (74-99); Non-African American GFR(CKD) >90 (>60 ml/min/1.73 sqM); Potassium 4.2 mmol/L (3.5-5.1); Sodium 139 mmol/L (137-145); Total Bilirubin 0.5 mg/dL (0.2-1.3); Total Protein 6.1 g/dL (6.3-8.2)
[2024-01-01] MEDS: diphenhydrAMINE 25 MG CAP PO STA (13:15)
[2024-01-01 13:21] LABS: Magnesium 1.6 mg/dL (1.6-2.3)
[2024-01-01 13:28] VITALS: BP 126/98; PULSE 75; TEMP 98
== END 2024-01-01 13:40 | disposition home or self-care (01) ==
LOC: EC 09:56
DX: G89.29 Other chronic pain (principal); M54.50 Low back pain, unspecified; F17.200 Nicotine dependence, unspecified, uncomplicated; F12.90 Cannabis use, unspecified, uncomplicated; Z88.0 Allergy status to penicillin; Z88.6 Allergy status to analgesic agent; Z88.8 Allergy status to other drugs, medicaments and biological substances
CPT/HCPCS: 36415; 93005; 80053; 83735; 84484; 85025; 71046; 99284; 96374; G0480; J1170; 80320

== ENCOUNTER 2024-01-18 19:43 | Emergency (ER) | payer OTHER | END 2024-01-18 23:15 | disposition home or self-care (01) | LOC: EC 19:43 | CPT/HCPCS: 99283 ==

== ENCOUNTER 2024-02-15 16:09 | Emergency (ER) | payer OTHER ==
[2024-02-15 16:15] VITALS: RESP 18; TEMP 97.9
--- NOTE | 2024-02-15 16:40 | ED ---
General Adult HPI - General Chief complaint: Chest Pain Stated complaint: chest pain Time Seen by Provider: 02/15/24 16:10 Source: patient, EMS Mode of arrival: EMS Limitations: altered mental status - History of Present Illness Initial comments: Dictation was produced using itembase dictation software. please excuse any grammatical, word or spelling errors. Chief Complaint: 58-year-old female presents with chest pain History of Present Illness: Patient is a 58-year-old female she is a poor historian. She has multiple comorbidities states that she is here for chest pain. States that she was at her friend's house when all of a sudden she started to have some chest pain states that it sharp and its painful left that it causes some symptoms in her left arm. Patient is a daily drinker. Denies any associated nausea or diaphoresis. Patient does report history of cardiac disease. The ROS documented in this emergency department record has been reviewed and confirmed by me. Those systems with pertinent positive or negative responses have been documented in the HPI. All other systems are other negative and/or noncontributory. - Related Data Home Medications Medication Instructions Recorded Confirmed Atorvastatin [Lipitor] 20 mg PO HS 09/06/23 02/15/24 Mirtazapine [Remeron] 15 mg PO HS 09/06/23 02/15/24 Albuterol Inhaler [Ventolin Hfa 2 puff INHALATION RT-Q6H PRN 11/18/23 02/15/24 Inhaler] levETIRAcetam [Keppra] 500 mg PO BID 02/15/24 02/15/24 Previous Rx's Medication Instructions Recorded Thiamine [Vitamin B-1] 100 mg PO DAILY@1200 #30 tab 11/20/23 QUEtiapine [SEROquel] 25 mg PO BID #60 tab 12/20/23 traZODone HCL [Desyrel] 50 mg PO HS #30 tab 12/20/23 Allergies Allergy/AdvReac Type Severity Reaction Status Date / Time Penicillins Allergy Rash/Hives/Swelling Verified 02/15/24 18:20 all over body NSAIDS (Non-Steroidal AdvReac Unknown upset Verified 02/15/24 18:20 Anti-Inflamma stomach sertraline HCl [From Zoloft] AdvReac Suicidal/Ag Verified 02/15/24 18:20 ression Review of Systems ROS Statement: Those systems with pertinent positive or pertinent negative responses have been documented in the HPI. ROS Other: All systems not noted in ROS Statement are negative. Past Medical History Past Medical History: COPD, Liver Disease, Myocardial Infarction ([place]), Seizure Disorder, Vascular Disorder Additional Past Medical History / Comment(s): constpation, last bowel movement 4 days ago, feeling bloated,feeling of fullness, and abdominal pain, feels hungry then over eats then vomits to feel better, LAST SEIZURE - JANUARY 2021, "broken heart syndrome"., elevated liver enzymes, "dislocated disks", hx cervical cancer Last Myocardial Infarction Date:: 2019 History of Any Multi-Drug Resistant Organisms: None Reported Past Surgical History: Section, Heart Catheterization, Tubal Ligation Additional Past Surgical History / Comment(s): ORIF rt ankle/hardware later removed, exploratory lap, PAIN CLINIC PROCEDURE, BILAT CATARACTS REMOVED WITH LENS IMPLANTS, procedure to open a vein in left leg-couldn't confirm which leg, partial amputation rt hand middle finger, "procedure to remove cervical cancer" Past Anesthesia/Blood Transfusion Reactions: No Reported Reaction Past Psychological History: Anxiety, Bipolar, Depression, PTSD Smoking Status: Current every day smoker Past Alcohol Use History: Abuse, Daily, Heavy Past Drug Use History: Marijuana - Past Family History Father Family Medical History: Cancer, Prostate Disorder, Pulmonary Embolus Sister(s) Family Medical History: Cancer Brother(s) Family Medical History: Cancer Additional Family Medical History / Comment(s): colon and bladder General Exam - General Exam Comments Initial Comments: PHYSICAL EXAM: General Impression: Alert and oriented x3, not in acute distress HEENT: Normocephalic atraumatic, extra-ocular movements intact, pupils equal and reactive to light bilaterally, mucous membranes moist. Cardiovascular: Heart regular rate and rhythm Chest: Able to complete full sentences, no retractions, no tachypnea Abdomen: abdomen soft, non-tender, non-distended, no organomegaly Musculoskeletal: Pulses present and equal in all extremities, no peripheral edema Motor: no focal deficits noted Neurological: CN II-XII grossly intact, no focal motor or sensory deficits noted Skin: Intact with no visualized rashes Psych: Normal affect and mood Limitations: altered mental status Course Vital Signs 02/15/24 02/15/24 16:10 18:03 Temperature 97.9 F Pulse Rate 86 74 Respiratory 18 18 Rate Blood Pressure 160/123 135/86 O2 Sat by Pulse 98 95 Oximetry EKG Findings - EKG Comments: EKG Findings:: My EKG interpretation: Ventricular rate 75, sinus rhythm,. 165, QRS 90, QTc 420. No AR prolongation, no QTC prolongation, no ST or T-wave changes noted. Overall, this EKG is unremarkable Medical Decision Making - Medical Decision Making Was pt. sent in by a medical professional or institution (, PA, WOOD CARVER HAND, urgent care, hospital, or residential...) When possible be specific @ -No Did you speak to anyone other than the patient for history (EMS, parent, family, police, friend...)? What history was obtained from this source @ -EMS Did you review nursing and triage notes (agree or disagree)? Why? @ -I reviewed and agree with nursing and triage notes Were old charts reviewed (outside hosp., previous admission, EMS record, old EKG, old radiological studies, urgent care reports/EKG's, residential records)? Report findings @ -Cardiology note dated 16 November 2019 first 2023 shows that patient has history of Takotsubo cardiomyopathy and normal coronary angiogram 2017 Differential Diagnosis (chest pain, altered mental status, abdominal pain women, abdominal pain men, vaginal bleeding, musculoskeletal, weakness, fever, dyspnea, syncope, headache, dizziness, GI bleed, back pain, seizure, CVA, palpatations, mental health)? @ -Differential Chest Pain: Stable Angina, Unstable Angina, STEMI, NSTEMI Aortic Dissection, Pneumothorax, Musculoskeletal, Esophageal Spasm GERD, Cholecystitis, Pancreatitis, Zoster, this is not meant to be an all-inclusive list. EKG interpreted by me (3pts min.). @ -See above X-rays interpreted by me (1pt min.). @ -Chest x-ray is nonacute CT interpreted by me (1pt min.). @ -None done U/S interpreted by me (1pt. min.). @ -None done What testing was considered but not performed or refused? (CT, X-rays, U/S, labs)? Why? @ -None What meds were considered but not given or refused? Why? @ -None Was smoking cessation discussed for >3mins.? @ -No Were there social determinants of health that impacted care today? How? (Homelessness, low income, unemployed, alcoholism, drug addiction, transportation, low edu. Level, literacy, decrease access to med. care, correction, rehab)? @ -Alcoholism Was there de-escalation of care discussed even if they declined (Discuss DNR or withdrawal of care, Hospice)? DNR status @ -No What co-morbidities impacted this encounter? (DM, HTN, Smoking, COPD, CAD, Cancer, CVA, ARF, Chemo, Hep., AIDS, mental health diagnosis, sleep apnea, morbid obesity)? @ -None Was patient admitted / discharged? Hospital course, mention meds given and route, prescriptions, significant lab abnormalities, going to OR and other pertinent info. @ -58-year-old female presents emergency department with atypical chest pain typical features. Vital signs upon arrival are within acceptable limits. EKG is unremarkable. Laboratory evaluation obtained is negative. Patient has 2 negative troponins by 3 hours. Patient observed in the emergency department for approximately 3 hours and 47 minutes. Reevaluated bedside 8:00 PM found to be stable medical condition. Patient with aspirin discharged advised follow-up with primary care doctor. Did you discuss the management of the patient with other professionals (professionals i.e. , PA, WOOD CARVER HAND, lab, RT, psych nurse, vp digital marketing social media and crm, equipment application specialist, teacher, home school liaison officer, case management social worker)? Give summary @ -No Was critical care preformed (if so, how long)? @ -No Undiagnosed new problem with uncertain prognosis? @ -No Drug Therapy requiring intensive monitoring for toxicity (Heparin, Nitro, Insulin, Cardizem)? @ -No Were any procedures done? @ -No Diagnosis/symptom? Acute, or Chronic, or Acute on Chronic? Uncomplicated (without systemic symptoms) or Complicated (systemic symptoms)? @ -Atypical chest pain typical features, acute alcohol intoxication Side effects of treatment? @ -No Exacerbation, Progression, or Severe Exacerbation? @ -No Poses a threat to life or bodily function? How? (Chest pain, [place], [place], pneumonia, PE, COPD, DKA, ARF, appy, cholecystitis, CVA, Diverticulitis, Homicidal, Suicidal, threat to staff... and all critical care pts) @ -yes - Lab Data Result diagrams: 02/15/24 16:30 02/15/24 16:30 Lab Results 09/09/0402/15/24 02/15/24 Range/Units 16:30 16:30 16:30 WBC 9.8 (3.8-10.6) k/uL RBC 4.60 (3.80-5.40) m/uL Hgb 14.7 (11.4-16.0) gm/dL Hct 44.1 (34.0-46.0) % MCV 95.8 (80.0-100.0) fL MCH 31.9 (25.0-35.0) pg MCHC 33.3 (31.0-37.0) g/dL RDW 13.4 (11.5-15.5) % Plt Count 315 (150-450) k/uL MPV 7.5 Neutrophils % 56 % Lymphocytes % 33 % Monocytes % 8 % Eosinophils % 1 % Basophils % 1 % Neutrophils # 5.5 (1.3-7.7) k/uL Lymphocytes # 3.2 (1.0-4.8) k/uL Monocytes # 0.7 (0-1.0) k/uL Eosinophils # 0.1 (0-0.7) k/uL Basophils # 0.1 (0-0.2) k/uL PT 10.3 (10.0-12.5) sec INR 0.9 (<1.2) APTT 25.0 (22.0-30.0) sec Sodium 138 (137-145) mmol/L Potassium 4.9 (3.5-5.1) mmol/L Chloride 105 (98-107) mmol/L Carbon Dioxide 23 (22-30) mmol/L Anion Gap 10 mmol/L BUN 7 (7-17) mg/dL Creatinine 0.44 L (0.52-1.04) mg/dL Est GFR (CKD-EPI)AfAm >90 (>60 ml/min/1.73 sqM) Est GFR (CKD-EPI)NonAf >90 (>60 ml/min/1.73 sqM) Glucose 97 (74-99) mg/dL Calcium 10.1 (8.4-10.2) mg/dL Magnesium 1.6 (1.6-2.3) mg/dL Total Bilirubin 0.8 (0.2-1.3) mg/dL AST 36 (14-36) U/L ALT 11 (4-34) U/L Alkaline Phosphatase 99 (38-126) U/L Troponin I (0.000-0.034) ng/mL Total Protein 8.3 H (6.3-8.2) g/dL Albumin 5.3 H (3.5-5.0) g/dL Serum Alcohol mg/dL 02/15/24 02/15/24 02/15/24 Range/Units 16:30 18:03 19:11 WBC (3.8-10.6) k/uL RBC (3.80-5.40) m/uL Hgb (11.4-16.0) gm/dL Hct (34.0-46.0) % MCV (80.0-100.0) fL MCH (25.0-35.0) pg MCHC (31.0-37.0) g/dL RDW (11.5-15.5) % Plt Count (150-450) k/uL MPV Neutrophils % % Lymphocytes % % Monocytes % % Eosinophils % % Basophils % % Neutrophils # (1.3-7.7) k/uL Lymphocytes # (1.0-4.8) k/uL Monocytes # (0-1.0) k/uL Eosinophils # (0-0.7) k/uL Basophils # (0-0.2) k/uL PT (10.0-12.5) sec INR (<1.2) APTT (22.0-30.0) sec Sodium (137-145) mmol/L Potassium (3.5-5.1) mmol/L Chloride (98-107) mmol/L Carbon Dioxide (22-30) mmol/L Anion Gap mmol/L BUN (7-17) mg/dL Creatinine (0.52-1.04) mg/dL Est GFR (CKD-EPI)AfAm (>60 ml/min/1.73 sqM) Est GFR (CKD-EPI)NonAf (>60 ml/min/1.73 sqM) Glucose (74-99) mg/dL Calcium (8.4-10.2) mg/dL Magnesium (1.6-2.3) mg/dL Total Bilirubin (0.2-1.3) mg/dL AST (14-36) U/L ALT (4-34) U/L Alkaline Phosphatase (38-126) U/L Troponin I <0.012 <0.012 (0.000-0.034) ng/mL Total Protein (6.3-8.2) g/dL Albumin (3.5-5.0) g/dL Serum Alcohol 127 mg/dL Disposition Clinical Impression: Chest pain Disposition: HOME SELF-CARE Condition: Good Instructions (If sedation given, give patient instructions): Chest Pain (ED), Alcohol Intoxication (ED) Is patient prescribed a controlled substance at d/c from ED?: No Referrals: None,Stated [Primary Care Provider] - 1-2 days Time of Disposition: 19:58
[2024-02-15 16:42] LABS: Basophils # (A) 0.1 k/uL (0-0.2); Basophils % (A) 1 %; Eosinophils # (A) 0.1 k/uL (0-0.7); Eosinophils % (A) 1 %; HCT 44.1 % (34.0-46.0); HGB 14.7 gm/dL (11.4-16.0); Lymphocytes # (A) 3.2 k/uL (1.0-4.8); Lymphocytes % (A) 33 %; MCH 31.9 pg (25.0-35.0); MCHC 33.3 g/dL (31.0-37.0); MCV 95.8 fL (80.0-100.0); Mean Platelet Volume 7.5; Monocytes # (A) 0.7 k/uL (0-1.0); Monocytes % (A) 8 %; Neutrophils # (A) 5.5 k/uL (1.3-7.7); Neutrophils % (A) 56 %; Platelet Count 315 k/uL (150-450); RDW 13.4 % (11.5-15.5); WBC 9.8 k/uL (3.8-10.6)
[2024-02-15 16:49] LABS: INR 0.9 (<1.2); Prothrombin Time 10.3 sec (10.0-12.5)
[2024-02-15 17:02] LABS: ALT 11 U/L (4-34); African American GFR (CKD) >90 (>60 ml/min/1.73 sqM); Albumin 5.3 g/dL (3.5-5.0); Anion Gap 10 mmol/L; Blood Urea Nitrogen 7 mg/dL (7-17); Calcium 10.1 mg/dL (8.4-10.2); Carbon Dioxide 23 mmol/L (22-30); Chloride 105 mmol/L (98-107); Glucose 97 mg/dL (74-99); Magnesium 1.6 mg/dL (1.6-2.3); Non-African American GFR(CKD) >90 (>60 ml/min/1.73 sqM); Sodium 138 mmol/L (137-145); Total Bilirubin 0.8 mg/dL (0.2-1.3)
[2024-02-15 17:09] LABS: AST 36 U/L (14-36); Alkaline Phosphatase 99 U/L (38-126); Potassium 4.9 mmol/L (3.5-5.1); Total Protein 8.3 g/dL (6.3-8.2)
--- NOTE | 2024-02-15 18:03 | XR ---
EXAMINATION TYPE: XR chest 2V DATE OF EXAM: 02/15/2024 5:40 PM CLINICAL INDICATION: Female, 58 years old with history of chest pain; [facility] COMPARISON: 01/01/2024. TECHNIQUE: XR chest 2V Frontal view of the chest. FINDINGS: Lungs/Pleura: There is no evidence of pleural effusion, focal consolidation, or pneumothorax. Pulmonary vascularity: Unremarkable. Heart/mediastinum: Cardiomediastinal silhouette is unremarkable. Musculoskeletal: No acute osseous pathology. IMPRESSION: No acute cardiopulmonary disease/process.
[2024-02-15] MEDS: ASPIRIN 81 MG PO STA (20:02)
[2024-02-15 20:08] VITALS: BP 143/97; PULSE 69
== END 2024-02-15 20:22 | disposition home or self-care (01) ==
LOC: EC 16:09
DX: R07.9 Chest pain, unspecified
CPT/HCPCS: 36415; 71046; 80053; 80320; 83735; 84484; 85025; 85610; 85730; 93005; 99285

== ENCOUNTER 2024-02-26 00:14 | Emergency (ER) | payer OTHER ==
[2024-02-26 00:23] VITALS: TEMP 96.8
[2024-02-26 01:18] LABS: Appearance,Urine Clear (Clear); Bilirubin,Urine Negative (Negative); Blood,Urine Negative (Negative); Color,Urine Colorless; Glucose,Urine (UA) Negative (Negative); Ketones,Urine Negative (Negative); Leukocyte Esterase,Urine Negative (Negative); Nitrite,Urine Negative (Negative); PH, Urine 5.5 (5.0-8.0); Protein,Urine Negative (Negative); Specific Gravity,Urine 1.002 (1.001-1.035); Urobilinogen,Urine <2.0 mg/dL (<2.0)
[2024-02-26 01:29] LABS: Amphetamine Screen,Urine Not Detected (NotDetected); Barbiturate Screen,Urine Not Detected (NotDetected); Benzodiazepines Screen,Urine Not Detected (NotDetected); Cocaine Screen,Urine Not Detected (NotDetected); Methadone Screen, Urine Not Detected (NotDetected); Opiate Screen,Urine Not Detected (NotDetected); Oxycodone Screen, Urine Not Detected (NotDetected); Phencyclidine Screen,Urine Not Detected (NotDetected); Tricyclic Antidepressant,Urine Not Detected (NotDetected); Urn Cannabinoid Scrn Detected (NotDetected)
[2024-02-26] MEDS: ACETAMINOPHEN TAB 325 MG TAB PO STA ×2 (01:42→10:33)
[2024-02-26] MEDS: LORazepam 1 MG TAB PO STA (01:42)
--- NOTE | 2024-02-26 03:06 | ED ---
Psych HPI <Raciel Maldonado - Last Filed: 02/26/24 13:29> - General Source: EMS Mode of arrival: EMS <Sarah Vega - Last Filed: 03/08/24 22:52> - General Chief Complaint: Psychiatric Symptoms Stated Complaint: mental health Time Seen by Provider: 02/26/24 00:32 - History of Present Illness Initial Comments: 58-year-old female who presents to the emergency department reporting that she sees people inside her house. Patient admits that she had been drinking tonight. She thought that 2 people were inside her house that truly were not there. She is concerned that they are going to kill her. She reports that she sees ghosts as well and hears voices. Denies suicidal or homicidal ideations. Patient is complaining of back pain but states this is chronic for her. Denies any saddle anesthesia. No bowel or bladder incontinence. (Sarah Vega) - Related Data Home Medications Medication Instructions Recorded Confirmed Atorvastatin [Lipitor] 20 mg PO HS 09/06/23 02/15/24 Mirtazapine [Remeron] 15 mg PO HS 09/06/23 02/15/24 Albuterol Inhaler [Ventolin Hfa 2 puff INHALATION RT-Q6H PRN 11/18/23 02/15/24 Inhaler] levETIRAcetam [Keppra] 500 mg PO BID 02/15/24 02/15/24 Previous Rx's Medication Instructions Recorded Thiamine [Vitamin B-1] 100 mg PO DAILY@1200 #30 tab 11/20/23 QUEtiapine [SEROquel] 25 mg PO BID #60 tab 12/20/23 traZODone HCL [Desyrel] 50 mg PO HS #30 tab 12/20/23 Allergies Allergy/AdvReac Type Severity Reaction Status Date / Time Penicillins Allergy Rash/Hives/Swelling Verified 02/15/24 18:20 all over body NSAIDS (Non-Steroidal AdvReac Unknown upset Verified 02/15/24 18:20 Anti-Inflamma stomach sertraline HCl [From Zoloft] AdvReac Suicidal/Ag Verified 02/15/24 18:20 ression Review of Systems ROS Other: All systems not noted in ROS Statement are negative. <Raciel Maldonado - Last Filed: 02/26/24 13:29> ROS Other: All systems not noted in ROS Statement are negative. <Sarah Vega - Last Filed: 03/08/24 22:52> ROS Statement: Those systems with pertinent positive or pertinent negative responses have been documented in the HPI. Past Medical History Past Medical History: COPD, Liver Disease, Myocardial Infarction ([place]), Seizure Disorder, Vascular Disorder Additional Past Medical History / Comment(s): constpation, last bowel movement 4 days ago, feeling bloated,feeling of fullness, and abdominal pain, feels hungry then over eats then vomits to feel better, LAST SEIZURE - JANUARY 2021, "broken heart syndrome"., elevated liver enzymes, "dislocated disks", hx cervical cancer Last Myocardial Infarction Date:: 2019 History of Any Multi-Drug Resistant Organisms: None Reported Past Surgical History: Section, Heart Catheterization, Tubal Ligation Additional Past Surgical History / Comment(s): ORIF rt ankle/hardware later removed, exploratory lap, PAIN CLINIC PROCEDURE, BILAT CATARACTS REMOVED WITH LENS IMPLANTS, procedure to open a vein in left leg-couldn't confirm which leg, partial amputation rt hand middle finger, "procedure to remove cervical cancer" Past Anesthesia/Blood Transfusion Reactions: No Reported Reaction Past Psychological History: Anxiety, Bipolar, Depression, PTSD Smoking Status: Current every day smoker Past Alcohol Use History: Abuse, Daily, Heavy Past Drug Use History: Marijuana - Past Family History Father Family Medical History: Cancer, Prostate Disorder, Pulmonary Embolus Sister(s) Family Medical History: Cancer Brother(s) Family Medical History: Cancer Additional Family Medical History / Comment(s): colon and bladder <Sarah Vega - Last Filed: 03/08/24 22:52> General Exam General appearance: alert, appears intoxicated, anxious Head exam: Present: atraumatic, normocephalic, normal inspection Eye exam: Present: normal appearance, PERRL, EOMI. Absent: scleral icterus, conjunctival injection, periorbital swelling ENT exam: Present: normal exam, mucous membranes moist Neck exam: Present: normal inspection. Absent: tenderness, meningismus, lymphadenopathy Respiratory exam: Present: normal lung sounds bilaterally. Absent: respiratory distress, wheezes, rales, rhonchi, stridor Cardiovascular Exam: Present: regular rate, normal rhythm, normal heart sounds. Absent: systolic murmur, diastolic murmur, rubs, gallop, clicks GI/Abdominal exam: Present: soft, normal bowel sounds. Absent: distended, tenderness, guarding, rebound, rigid Extremities exam: Present: normal inspection, full ROM, normal capillary refill. Absent: tenderness, pedal edema, joint swelling, calf tenderness Back exam: Present: normal inspection Neurological exam: Present: alert, oriented X3, CN II-XII intact Psychiatric exam: Present: agitated, anxious, manic Skin exam: Present: warm, dry, intact, normal color. Absent: rash <Sarah Vega - Last Filed: 03/08/24 22:52> Course Vital Signs 02/26/24 02/26/24 02/26/24 00:16 07:25 08:32 Temperature 96.8 F L Pulse Rate 79 84 84 Respiratory 18 16 16 Rate Blood Pressure 160/116 104/69 125/90 O2 Sat by Pulse 97 96 97 Oximetry 02/26/24 13:44 Temperature Pulse Rate Respiratory 18 Rate Blood Pressure O2 Sat by Pulse Oximetry Medical Decision Making <Raciel Maldonado - Last Filed: 02/26/24 13:29> <Sarah Vega - Last Filed: 03/08/24 22:52> - Medical Decision Making Briefly, patient was medically cleared by the previous provider. Presents acutely intoxicated with alcohol with hallucinations. Was pending EPS evaluation after being medically cleared by the previous provider. EPS Verenice evaluated the patient determined after discussion with psychiatry that she does not meet inpatient criteria. Patient given resources and will be discharged home at this time. Diagnosis/symptom? @ -Encounter for psychiatric evaluation, alcohol intoxication Acute, or Chronic, or Acute on Chronic? @ -Acute Uncomplicated (without systemic symptoms) or Complicated (systemic symptoms)? @ -Uncomplicated Side effects of treatment? @ -None Exacerbation, Progression, or Severe Exacerbation] @ -No Poses a threat to life or bodily function? @ -Unlikely (Raciel Maldonado) Was pt. sent in by a medical professional or institution (, PA, APPRENTICE PATTERN MAKER, urgent care, hospital, or half-way...) When possible be specific @ -No Did you speak to anyone other than the patient for history (EMS, parent, family, police, friend...)? What history was obtained from this source @ -Spoke with EMS and boyfriend for history Did you review nursing and triage notes (agree or disagree)? Why? @ -I reviewed and agree with nursing and triage notes Were old charts reviewed (outside hosp., previous admission, EMS record, old EKG, old radiological studies, urgent care reports/EKG's, half-way records)? Report findings @ -No old charts were reviewed Differential Diagnosis (chest pain, altered mental status, abdominal pain women, abdominal pain men, vaginal bleeding, weakness, fever, dyspnea, syncope, headache, dizziness, GI bleed, back pain, seizure, CVA, palpatations, mental health, musculoskeletal)? @ -Differential Mental Health Depression, anxiety, bipolar, psychosis, schizophrenia, borderline personality, situational depression, adjustment disorder, behavioral disorder, brain tumor, malingering, substance abuse, encephalopathy, medication reaction, dementia, hypothyroidism, degenerative neurologic disorder, lupus.... This is not meant to be all-inclusive list EKG interpreted by me (3pts min.). @ -Not done X-rays interpreted by me (1pt min.). @ -None done CT interpreted by me (1pt min.). @ -None done U/S interpreted by me (1pt. min.). @ -None done What testing was considered but not performed or refused? (CT, X-rays, U/S, labs)? Why? @ -None What meds were considered but not given or refused? Why? @ -None Did you discuss the management of the patient with other professionals (professionals i.e. , PA, APPRENTICE PATTERN MAKER, lab, RT, psych nurse, social problems specialist, department helper, teacher, financial services officer, catalytic case operator)? Give summary @ -Spoke with the EPS who asked to evaluate the patient Was smoking cessation discussed for >3mins.? @ -No Was critical care preformed (if so, how long)? @ -No Were there social determinants of health that impacted care today? How? (Homelessness, low income, unemployed, alcoholism, drug addiction, transportation, low edu. Level, literacy, decrease access to med. care, skilled nursing, rehab)? @ -No Was there de-escalation of care discussed even if they declined (Discuss DNR or withdrawal of care, Hospice)? DNR status @ -No What co-morbidities impacted this encounter? (DM, HTN, Smoking, COPD, CAD, Cancer, CVA, ARF, Chemo, Hep., AIDS, mental health diagnosis, sleep apnea, morbid obesity)? @ -None Was patient admitted / discharged? Hospital course, mention meds given and route, prescriptions, significant lab abnormalities, going to OR and other pertinent info. @ -Upon arrival patient seen and evaluated in room 9. Thorough history and physical exam was performed. Patient is acutely intoxicated. She is awaiting sobriety to see EPS. Patient will be signed out to Dr. Maldonado (Sarah Vega) - Lab Data Lab Results 02/26/24 Range/Units 01:12 Urine Color Colorless Urine Appearance Clear (Clear) Urine pH 5.5 (5.0-8.0) Ur Specific Fred 1.002 (1.001-1.035) Urine Protein Negative (Negative) Urine Glucose (UA) Negative (Negative) Urine Ketones Negative (Negative) Urine Blood Negative (Negative) Urine Nitrite Negative (Negative) Urine Bilirubin Negative (Negative) Urine Urobilinogen <2.0 (<2.0) mg/dL Ur Leukocyte Esterase Negative (Negative) Urine Opiates Screen Not Detected (NotDetected) Ur Oxycodone Screen Not Detected (NotDetected) Urine Methadone Screen Not Detected (NotDetected) Ur Barbiturates Screen Not Detected (NotDetected) U Tricyclic Antidepress Not Detected (NotDetected) Ur Phencyclidine Scrn Not Detected (NotDetected) Ur Amphetamines Screen Not Detected (NotDetected) U Methamphetamines Scrn Not Detected (NotDetected) U Benzodiazepines Scrn Not Detected (NotDetected) Urine Cocaine Screen Not Detected (NotDetected) U Marijuana (THC) Screen Detected H (NotDetected) Disposition Is patient prescribed a controlled substance at d/c from ED?: No Time of Disposition: 13:20 <Raciel Maldonado - Last Filed: 02/26/24 13:29> <Sarah Vega - Last Filed: 03/08/24 22:52> Clinical Impression: Encounter for psychiatric assessment, Alcohol intoxication Disposition: HOME SELF-CARE Condition: Good Instructions (If sedation given, give patient instructions): Alcohol Intoxication (ED) Additional Instructions: follow resources Referrals: None,Stated [Primary Care Provider] - 1-2 days
[2024-02-26 07:26] VITALS: PULSE 84
[2024-02-26 08:32] VITALS: BP 125/90
[2024-02-26 13:45] VITALS: RESP 18
== END 2024-02-26 13:45 | disposition home or self-care (01) ==
LOC: EC 00:14
DX: F99 Mental disorder, not otherwise specified
CPT/HCPCS: 80306; 81003; 82075; 99284

== ENCOUNTER 2024-03-21 22:11 | Observation (INO) | payer OTHER ==
[2024-03-21 22:33] LABS: Basophils # (A) 0.1 k/uL (0-0.2); Basophils % (A) 1 %; Eosinophils # (A) 0.1 k/uL (0-0.7); Eosinophils % (A) 1 %; HCT 46.9 % (34.0-46.0); HGB 15.3 gm/dL (11.4-16.0); Lymphocytes # (A) 4.3 k/uL (1.0-4.8); Lymphocytes % (A) 53 %; MCH 30.4 pg (25.0-35.0); MCHC 32.5 g/dL (31.0-37.0); MCV 93.3 fL (80.0-100.0); Mean Platelet Volume 6.7; Monocytes # (A) 0.6 k/uL (0-1.0); Monocytes % (A) 8 %; Neutrophils # (A) 2.7 k/uL (1.3-7.7); Neutrophils % (A) 33 %; Platelet Count 271 k/uL (150-450); RBC 5.02 m/uL (3.80-5.40); RDW 14.1 % (11.5-15.5)
--- NOTE | 2024-03-21 22:37 | ED ---
General Adult HPI - General Chief complaint: Alcohol Stated complaint: ETOH, Altered Mental Time Seen by Provider: 03/21/24 22:12 Source: patient, EMS Mode of arrival: EMS Limitations: no limitations - History of Present Illness Initial comments: Dictation was produced using [employer] dictation software. please excuse any grammatical, word or spelling errors. Chief Complaint: 58-year-old female presents with alcohol intoxication History of Present Illness: Patient 58-year-old female she is a daily alcohol user. She is here today for alcohol intoxication. She is brought in by EMS. EMS was called by patient's boyfriend. Patient allegedly had a episode of altered mentation. There is concern that perhaps maybe he may have had a seizure. Patient had large amounts of alcohol today. She states that she drinks a lot because of chronic back pain. The ROS documented in this emergency department record has been reviewed and confirmed by me. Those systems with pertinent positive or negative responses have been documented in the HPI. All other systems are other negative and/or noncontributory. - Related Data Home Medications Medication Instructions Recorded Confirmed Atorvastatin [Lipitor] 20 mg PO HS 09/06/23 02/15/24 Mirtazapine [Remeron] 15 mg PO HS 09/06/23 02/15/24 Albuterol Inhaler [Ventolin Hfa 2 puff INHALATION RT-Q6H PRN 11/18/23 02/15/24 Inhaler] levETIRAcetam [Keppra] 500 mg PO BID 02/15/24 02/15/24 Previous Rx's Medication Instructions Recorded Thiamine [Vitamin B-1] 100 mg PO DAILY@1200 #30 tab 11/20/23 QUEtiapine [SEROquel] 25 mg PO BID #60 tab 12/20/23 traZODone HCL [Desyrel] 50 mg PO HS #30 tab 12/20/23 Allergies Allergy/AdvReac Type Severity Reaction Status Date / Time Penicillins Allergy Rash/Hives/Swelling Verified 03/21/24 22:17 all over body NSAIDS (Non-Steroidal AdvReac Unknown upset Verified 03/21/24 22:17 Anti-Inflamma stomach sertraline HCl [From Zoloft] AdvReac Suicidal/Ag Verified 03/21/24 22:17 ression Review of Systems ROS Statement: Those systems with pertinent positive or pertinent negative responses have been documented in the HPI. ROS Other: All systems not noted in ROS Statement are negative. Past Medical History Past Medical History: COPD, Liver Disease, Myocardial Infarction ([place]), Seizure Disorder, Vascular Disorder Additional Past Medical History / Comment(s): constpation, last bowel movement 4 days ago, feeling bloated,feeling of fullness, and abdominal pain, feels hungry then over eats then vomits to feel better, LAST SEIZURE - JANUARY 2021, "broken heart syndrome"., elevated liver enzymes, "dislocated disks", hx cervical cancer Last Myocardial Infarction Date:: 2019 History of Any Multi-Drug Resistant Organisms: None Reported Past Surgical History: Section, Heart Catheterization, Tubal Ligation Additional Past Surgical History / Comment(s): ORIF rt ankle/hardware later removed, exploratory lap, PAIN CLINIC PROCEDURE, BILAT CATARACTS REMOVED WITH LENS IMPLANTS, procedure to open a vein in left leg-couldn't confirm which leg, partial amputation rt hand middle finger, "procedure to remove cervical cancer" Past Anesthesia/Blood Transfusion Reactions: No Reported Reaction Past Psychological History: Anxiety, Bipolar, Depression, PTSD Smoking Status: Current every day smoker Past Alcohol Use History: Abuse, Daily, Heavy Past Drug Use History: Marijuana - Past Family History Father Family Medical History: Cancer, Prostate Disorder, Pulmonary Embolus Sister(s) Family Medical History: Cancer Brother(s) Family Medical History: Cancer Additional Family Medical History / Comment(s): colon and bladder General Exam - General Exam Comments Initial Comments: PHYSICAL EXAM: General Impression: Alert and oriented x3, not in acute distress, inebriated, smells of EtOH HEENT: Normocephalic atraumatic, extra-ocular movements intact, pupils equal and reactive to light bilaterally, mucous membranes moist. Cardiovascular: Heart regular rate and rhythm Chest: Able to complete full sentences, no retractions, no tachypnea Abdomen: abdomen soft, non-tender, non-distended, no organomegaly Musculoskeletal: Pulses present and equal in all extremities, no peripheral edema Motor: no focal deficits noted Neurological: CN II-XII grossly intact, no focal motor or sensory deficits noted Skin: Intact with no visualized rashes Psych: Normal affect and mood Limitations: no limitations Course Vital Signs 03/21/24 03/21/24 22:12 23:25 Temperature 97.3 F L Pulse Rate 85 68 Respiratory 16 18 Rate Blood Pressure 152/93 113/71 O2 Sat by Pulse 99 98 Oximetry EKG Findings - EKG Comments: EKG Findings:: My EKG interpretation: Ventricular rate 76, sinus rhythm, DC 173, QRS 96, QTc 428. No DC prolongation, no QTC prolongation, no ST or T-wave changes noted. Overall, this EKG is unremarkable Medical Decision Making - Medical Decision Making Was pt. sent in by a medical professional or institution (, PA, SHEARING MACHINE FEEDER, urgent care, hospital, or residential...) When possible be specific @ -No Did you speak to anyone other than the patient for history (EMS, parent, family, police, friend...)? What history was obtained from this source @ -EMS as described above Did you review nursing and triage notes (agree or disagree)? Why? @ -I reviewed and agree with nursing and triage notes Were old charts reviewed (outside hosp., previous admission, EMS record, old EKG, old radiological studies, urgent care reports/EKG's, residential records)? Report findings @ -No old charts were reviewed Differential Diagnosis (chest pain, altered mental status, abdominal pain women, abdominal pain men, vaginal bleeding, musculoskeletal, weakness, fever, dyspnea, syncope, headache, dizziness, GI bleed, back pain, seizure, CVA, palpatations, mental health)? @ -Differential Altered Mental Status: Hypoglycemia, DKA, hypercapnia, ETOH, overdose, CO poisoning, trauma, myxedema coma, HTN encephalopathy, infection, encephalitis, psychosis, intercranial hemorrhage, hepatic encephalopathy, meningitis, CVA, this is not meant to be an all-inclusive list EKG interpreted by me (3pts min.). @ -See above X-rays interpreted by me (1pt min.). @ -None done CT interpreted by me (1pt min.). @ -CT scan of the head and C-spine shows no acute processes U/S interpreted by me (1pt. min.). @ -None done What testing was considered but not performed or refused? (CT, X-rays, U/S, labs)? Why? @ -None What meds were considered but not given or refused? Why? @ -None Was smoking cessation discussed for >3mins.? @ -No Were there social determinants of health that impacted care today? How? (Homelessness, low income, unemployed, alcoholism, drug addiction, transportation, low edu. Level, literacy, decrease access to med. care, group home, r ehab)? @ -Alcoholism, chronic back pain Was there de-escalation of care discussed even if they declined (Discuss DNR or withdrawal of care, Hospice)? DNR status @ -No What co-morbidities impacted this encounter? (DM, HTN, Smoking, COPD, CAD, Cancer, CVA, ARF, Chemo, Hep., AIDS, mental health diagnosis, sleep apnea, morbid obesity)? @ -None Was patient admitted / discharged? Hospital course, mention meds given and route, prescriptions, significant lab abnormalities, going to OR and other perti nent info. @ -58-year-old alcohol intoxicated female presents emergency department allegedly after of unresponsiveness. Vital signs upon arrival are within acceptable limits. Unclear if there was any tonic-clonic activity or postictal state. Patient complaining of back pain. She has no other complaints. She drinks daily. Laboratory evaluation obtained. Labs unremarkable. Serum alcohol is 288. CT brain is negative. Patient admitted for alcohol intoxication Did you discuss the management of the patient with other professionals (professionals i.e. , PA, SHEARING MACHINE FEEDER, lab, RT, psych nurse, social media editor, chemical treatment plant technician, teacher, toxics program officer, caseworker)? Give summary @ -Case discussed with hospitalist for admission Was critical care preformed (if so, how long)? @ -No Undiagnosed new problem with uncertain prognosis? @ -No Drug Therapy requiring intensive monitoring for toxicity (Heparin, Nitro, Insulin, Cardizem)? @ -No Were any procedures done? @ -No Diagnosis/symptom? Acute, or Chronic, or Acute on Chronic? Uncomplicated (without systemic symptoms) or Complicated (systemic symptoms)? @ -Alcohol intoxication Side effects of treatment? @ -No Exacerbation, Progression, or Severe Exacerbation? @ -No Poses a threat to life or bodily function? How? (Chest pain, [place], [place], pneumonia, PE, COPD, DKA, ARF, appy, cholecystitis, CVA, Diverticulitis, Homicidal, Suicidal, threat to staff... and all critical care pts) @ -yes - Lab Data Result diagrams: 03/21/24 22:25 03/21/24 22:25 Lab Results 03/21/24 03/21/24 Range/Units 22:25 22:25 WBC 8.0 (3.8-10.6) k/uL RBC 5.02 (3.80-5.40) m/uL Hgb 15.3 (11.4-16.0) gm/dL Hct 46.9 H (34.0-46.0) % MCV 93.3 (80.0-100.0) fL MCH 30.4 (25.0-35.0) pg MCHC 32.5 (31.0-37.0) g/dL RDW 14.1 (11.5-15.5) % Plt Count 271 (150-450) k/uL MPV 6.7 Neutrophils % 33 % Lymphocytes % 53 % Monocytes % 8 % Eosinophils % 1 % Basophils % 1 % Neutrophils # 2.7 (1.3-7.7) k/uL Lymphocytes # 4.3 (1.0-4.8) k/uL Monocytes # 0.6 (0-1.0) k/uL Eosinophils # 0.1 (0-0.7) k/uL Basophils # 0.1 (0-0.2) k/uL Sodium 139 (137-145) mmol/L Potassium 5.1 (3.5-5.1) mmol/L Chloride 107 (98-107) mmol/L Carbon Dioxide 21 L (22-30) mmol/L Anion Gap 11 mmol/L BUN 4 L (7-17) mg/dL Creatinine 0.36 L (0.52-1.04) mg/dL Est GFR (CKD-EPI)AfAm >90 (>60 ml/min/1.73 sqM) Est GFR (CKD-EPI)NonAf >90 (>60 ml/min/1.73 sqM) Glucose 90 (74-99) mg/dL Calcium 9.5 (8.4-10.2) mg/dL Magnesium 1.8 (1.6-2.3) mg/dL Total Bilirubin 0.7 (0.2-1.3) mg/dL AST 37 H (14-36) U/L ALT 13 (4-34) U/L Alkaline Phosphatase 114 (38-126) U/L Total Protein 7.8 (6.3-8.2) g/dL Albumin 5.0 (3.5-5.0) g/dL Serum Alcohol 288 H* mg/dL Disposition Clinical Impression: Alcohol intoxication Disposition: ADMITTED IP TO THIS HOSP Condition: Fair Referrals: None,Stated [Primary Care Provider] - 1-2 days Decision Time: 00:12
[2024-03-21 22:44] LABS: ALT 13 U/L (4-34); AST 37 U/L (14-36); African American GFR (CKD) >90 (>60 ml/min/1.73 sqM); Alkaline Phosphatase 114 U/L (38-126); Anion Gap 11 mmol/L; Blood Urea Nitrogen 4 mg/dL (7-17); Calcium 9.5 mg/dL (8.4-10.2); Carbon Dioxide 21 mmol/L (22-30); Chloride 107 mmol/L (98-107); Glucose 90 mg/dL (74-99); Magnesium 1.8 mg/dL (1.6-2.3); Non-African American GFR(CKD) >90 (>60 ml/min/1.73 sqM); Potassium 5.1 mmol/L (3.5-5.1); Sodium 139 mmol/L (137-145); Total Bilirubin 0.7 mg/dL (0.2-1.3); Total Protein 7.8 g/dL (6.3-8.2)
[2024-03-21 22:49] LABS: Alcohol 288 mg/dL
--- NOTE | 2024-03-21 23:12 | CT ---
EXAMINATION TYPE: CT brain cspine wo con DATE OF EXAM: 03/21/2024 COMPARISON: CT brain December 13, 2023 HISTORY: ams CT DLP: 1233.4 mGycm. Automated Exposure Control for Dose Reduction was Utilized. TECHNIQUE: CT scan of the head and cervical spine are performed without contrast. FINDINGS: There is no acute intracranial hemorrhage or midline shift identified. Mild to moderate v entricular and sulcal prominence is redemonstrated. Mild low attenuation the periventricular white m atter is redemonstrated. Bilateral aphakia. The visualized sinuses are clear. Calvarium is intact. Cervical spine is visualized in its entirety from C1 through upper thoracic levels and demonstrates m ultilevel spondylolisthesis without evidence of acute fracture or dislocation. Prevertebral soft tis anne-marie appears within normal limits. The C1-C2 articulation is within normal limits on the coronal imag es. Slight scoliotic curvature is present. Vertebral body heights are maintained. Mild to moderate d isc space narrowing and spurring at C5-C6 and C6-C7 levels is present. Upper lungs are clear without pneumothorax. IMPRESSION: 1. There is no acute fracture or dislocation evident in the cervical spine. 2. No acute intracranial hemorrhage or midline shift is seen. [facility], , 03/21/2024 11:10 PM
[2024-03-21] MEDS ORDERED: LORazepam 2 MG/ML INJ IV PRN ×3 (23:33)
[2024-03-22] MEDS ORDERED: NALOXONE 0.4 MG/ML 1 ML VIAL IV PRN (00:07)
[2024-03-22] MEDS: HYDROcodone/APAP 5-325MG 1 EACH TAB PO STA ×2 (00:08→04:07)
[2024-03-22] MEDS: SODIUM CHLORIDE 0.9% 1,000 ML IV SCH (00:39)
[2024-03-22 06:27] VITALS: TEMP 97.6
[2024-03-22] MEDS ORDERED: ALBUTEROL NEBULIZED 2.5 MG/3 ML INHALATION PRN (10:11)
[2024-03-22] MEDS: levETIRAcetam 500 MG TAB PO SCH (11:27)
[2024-03-22] MEDS: ACETAMINOPHEN TAB 325 MG TAB PO PRN (11:31)
[2024-03-22] MEDS: cloNIDine HCL 0.2 MG TAB PO STA (11:44)
[2024-03-22 11:48] VITALS: BP 165/90; PULSE 69; RESP 20
[2024-03-22] MEDS ORDERED: THIAMINE 100 MG TAB PO SCH (12:00)
--- NOTE | 2024-03-22 16:03 | P.HPIM ---
History of Present Illness History of present illness; 58-year-old female with a past medical history of hyperlipidemia, asthma, seizure disorder, and depression presents with EtOH intoxication. Patient was brought in by EMS who were called by the patient's boyfriend. Patient's boyfriend reports he got up from bed last night and noticed the light was still on, when he went to the living room he found the patient laying on the couch, he tried to arouse her but found her not responding to any of his stimuli. At this point the boyfriend was concerned and called 911. Patient reports she normally drinks 4 24 ounce beers per day. Patient reports she is trying to cut back, but is not ready to completely quit drinking yet. Patient's boyfriend is insistent that she stops drinking, but to no avail. Patient admits to back pain and mild nausea but denies all other symptoms. Initial lab work from the ER was significant for WBC 8.2, hemoglobin 15.3, MCV 93.3, sodium 139, potassium 5.1, AST 37, ALT 13, total bili 0.7, alkaline phosphatase 114, glucose 90, and serum alcohol 288. EKG done in the ER showed heart rate of 76 bpm, no ST segment elevation or depression seen, no T-wave inversions seen. Sinus rhythm ER CT Head: No acute intracranial process or midline shift, and no acute fracture or dislocation in the cervical spine Patient admitted to internal medicine service PHYSICAL EXAMINATION: GENERAL: The patient is alert and oriented x3, not in any acute distress. Well developed, well nourished. HEENT: Pupils are round and equally reacting to light. EOMI. No scleral icterus. No conjunctival pallor. Normocephalic, atraumatic. No pharyngeal erythema. No thyromegaly. CARDIOVASCULAR: S1 and S2 present. No murmurs, rubs, or gallops. PULMONARY: Chest is clear to auscultation b/l, no wheezing or crackles. ABDOMEN: Soft, nontender, nondistended, normoactive bowel sounds. No palpable organomegaly. MUSCULOSKELETAL: No joint swelling or deformity. EXTREMITIES: No cyanosis, clubbing, or pedal edema. NEUROLOGICAL: Gross neurological examination did not reveal any focal deficits. SKIN: No rashes. Assessment:[] Plan: #EtOH intoxication: Continue CIWA scale every 4 hours, if patient has CIWA greater than 20 or receives greater than 20 mg of Ativan over 6 hours admit to ICU Patient can be discharged once last drink is greater than 4 days ago or CIWA less than 6. Lorazepam 1 mg and 2 mg IV as needed for CIWA protocol Continue NS 20 cc/h #Hypertension: Patient does not normally take blood pressure medication at home, found to have systolic 196 Gave 1 dose clonidine 0.2 mg p.o. Continue to monitor #Seizure disorder Continue home medication #Hyperlipidemia Continue home medication F: NS 20 cc/h E: None N: Heart healthy diet A: Normally ambulates at home unassisted CODE STATUS: Full code Dispo: Pending clinical course Pedro Lisa MD PGY-1 FM Attestation I have seen and examined this patient with my resident , discussed the same with the resident/ÓSCAR, and agree with the dictator's assessment and plan as written Dr. Temo cuevas Dictation was produced using [employer] dictation software. please excuse any grammatical, word or spelling errors. Past Medical History Past Medical History: COPD, Liver Disease, Myocardial Infarction ([place]), Seizure Disorder, Vascular Disorder Additional Past Medical History / Comment(s): constpation, last bowel movement 4 days ago, feeling bloated,feeling of fullness, and abdominal pain, feels hungry then over eats then vomits to feel better, LAST SEIZURE - JANUARY 2021, "broken heart syndrome"., elevated liver enzymes, "dislocated disks", hx cervical cancer Last Myocardial Infarction Date:: 2019 History of Any Multi-Drug Resistant Organisms: None Reported Past Surgical History: Section, Heart Catheterization, Tubal Ligation Additional Past Surgical History / Comment(s): ORIF rt ankle/hardware later removed, exploratory lap, PAIN CLINIC PROCEDURE, BILAT CATARACTS REMOVED WITH LENS IMPLANTS, procedure to open a vein in left leg-couldn't confirm which leg, partial amputation rt hand middle finger, "procedure to remove cervical cancer" Past Anesthesia/Blood Transfusion Reactions: No Reported Reaction Past Psychological History: Anxiety, Bipolar, Depression, PTSD Smoking Status: Current every day smoker Past Alcohol Use History: Abuse, Daily, Heavy Past Drug Use History: Marijuana - Past Family History Father Family Medical History: Cancer, Prostate Disorder, Pulmonary Embolus Sister(s) Family Medical History: Cancer Brother(s) Family Medical History: Cancer Additional Family Medical History / Comment(s): colon and bladder Medications and Allergies Home Medications Medication Instructions Recorded Confirmed Type Atorvastatin [Lipitor] 20 mg PO HS 09/06/23 03/22/24 History Mirtazapine [Remeron] 15 mg PO HS 09/06/23 03/22/24 History Albuterol Inhaler [Ventolin Hfa 2 puff INHALATION RT-Q6H PRN 11/18/23 03/22/24 History Inhaler] Thiamine [Vitamin B-1] 100 mg PO DAILY@1200 #30 tab 11/20/23 03/22/24 Rx QUEtiapine [SEROquel] 25 mg PO BID #60 tab 12/20/23 03/22/24 Rx traZODone HCL [Desyrel] 50 mg PO HS #30 tab 12/20/23 03/22/24 Rx levETIRAcetam [Keppra] 500 mg PO BID 02/15/24 03/22/24 History Allergies Allergy/AdvReac Type Severity Reaction Status Date / Time Penicillins Allergy Rash/Hives/Swelling Verified 03/22/24 08:08 all over body NSAIDS (Non-Steroidal AdvReac Unknown upset Verified 03/22/24 08:08 Anti-Inflamma stomach sertraline HCl [From Zoloft] AdvReac Suicidal/Ag Verified 03/22/24 08:08 ression Physical Exam Vitals: Vital Signs Temp Pulse Resp BP Pulse Ox 03/22/24 08:02 73 20 196/97 97 03/22/24 07:17 68 18 94 L 03/22/24 06:26 97.6 F 71 16 130/71 96 03/22/24 03:46 97.7 F 74 16 112/89 95 03/21/24 23:25 68 18 113/71 98 03/21/24 22:12 97.3 F L 85 16 152/93 99 Intake and Output 03/21/24 03/22/24 03/22/24 22:59 06:59 14:59 Other: Weight 47.627 kg Results CBC & Chem 7: 03/21/24 22:25 03/21/24 22:25 Labs: Abnormal Lab Results - Last 24 Hours (Table) 03/21/24 03/21/24 Range/Units 22:25 22:25 Hct 46.9 H (34.0-46.0) % Carbon Dioxide 21 L (22-30) mmol/L BUN 4 L (7-17) mg/dL Creatinine 0.36 L (0.52-1.04) mg/dL AST 37 H (14-36) U/L Serum Alcohol 288 H* mg/dL
[2024-03-22] MEDS ORDERED: MIRTAZAPINE 15 MG TAB PO SCH (21:00)
[2024-03-22] MEDS ORDERED: ATORVASTATIN 20 MG TAB PO SCH (21:00)
[2024-03-22] MEDS ORDERED: QUEtiapine 25 MG TAB PO SCH (21:00)
[2024-03-22] MEDS ORDERED: traZODone HCL 50 MG TAB PO SCH (21:00)
--- NOTE | 2024-04-02 13:09 | P.DS ---
Providers Date of admission: 03/22/24 00:08 Expected date of discharge: 03/22/24 Attending physician: Mary Mejia Primary care physician: Stated None Hospital Course: Discharge diagnoses; EtOH intoxication: #Hypertension: #Seizure disorder #Hyperlipidemia Hospital course; 58-year-old female with a past medical history of hyperlipidemia, asthma, seizure disorder, and depression presents with EtOH intoxication. Patient was brought in by EMS who were called by the patient's boyfriend. Patient's boyfriend reports he got up from bed last night and noticed the light was still on, when he went to the living room he found the patient laying on the couch, he tried to arouse her but found her not responding to any of his stimuli. At this point the boyfriend was concerned and called 911. Patient reports she normally drinks 4 24 ounce beers per day. Patient reports she is trying to cut back, but is not ready to completely quit drinking yet. Patient's boyfriend is insistent that she stops drinking, but to no avail. Patient admits to back pain and mild nausea but denies all other symptoms. Initial lab work from the ER was significant for WBC 8.2, hemoglobin 15.3, MCV 93.3, sodium 139, potassium 5.1, AST 37, ALT 13, total bili 0.7, alkaline phosphatase 114, glucose 90, and serum alcohol 288. EKG done in the ER showed heart rate of 76 bpm, no ST segment elevation or depression seen, no T-wave inversions seen. Sinus rhythm ER CT Head: No acute intracranial process or midline shift, and no acute fracture or dislocation in the cervical spine Patient admitted to internal medicine service under [facility] protocol. While in the hospital, patient stated that she does not want to stay in the hospital or participate in alcohol detox, patient left AGAINST MEDICAL ADVICE Dictation was produced using [employer] dictation software. please excuse any grammatical, word or spelling errors. Patient Condition at Discharge: Undetermined Plan - Discharge Summary New Discharge Prescriptions: No Action Mirtazapine [Remeron] 15 mg PO HS Atorvastatin [Lipitor] 20 mg PO HS Thiamine [Vitamin B-1] 100 mg PO DAILY@1200 #30 tab QUEtiapine [SEROquel] 25 mg PO BID #60 tab levETIRAcetam [Keppra] 500 mg PO BID Albuterol Inhaler [Ventolin Hfa Inhaler] 2 puff INHALATION RT-Q6H PRN PRN Reason: Cough traZODone HCL [Desyrel] 50 mg PO HS #30 tab Discharge Medication List Atorvastatin [Lipitor] 20 mg PO HS 09/06/23 [History] Mirtazapine [Remeron] 15 mg PO HS 09/06/23 [History] Albuterol Inhaler [Ventolin Hfa Inhaler] 2 puff INHALATION RT-Q6H PRN 11/18/23 [History] Thiamine [Vitamin B-1] 100 mg PO DAILY@1200 #30 tab 11/20/23 [Rx] QUEtiapine [SEROquel] 25 mg PO BID #60 tab 12/20/23 [Rx] traZODone HCL [Desyrel] 50 mg PO HS #30 tab 12/20/23 [Rx] levETIRAcetam [Keppra] 500 mg PO BID 02/15/24 [History] Follow up Appointment(s)/Referral(s): None,Stated [Primary Care Provider] - 1-2 days Discharge/Stand Alone Forms: Area PCPs Discharge Disposition: LEFT AGAINST MEDICAL ADVICE
== END 2024-03-22 11:55 | disposition left against medical advice (07) ==
LOC: EC 22:11 → 6NMEDSUR 03-22 00:08
PROVIDERS: ADMIT Hospitalist; ATTEND Hospitalist
DX: F10.129 Alcohol abuse with intoxication, unspecified (principal); M54.9 Dorsalgia, unspecified; E78.5 Hyperlipidemia, unspecified; F17.200 Nicotine dependence, unspecified, uncomplicated; F31.9 Bipolar disorder, unspecified; F41.9 Anxiety disorder, unspecified; F43.10 Post-traumatic stress disorder, unspecified; G40.909 Epilepsy, unspecified, not intractable, without status epilepticus; G89.29 Other chronic pain; I10 Essential (primary) hypertension; I25.2 Old myocardial infarction; J44.89 Other specified chronic obstructive pulmonary disease; Z79.899 Other long term (current) drug therapy; Z85.41 Personal history of malignant neoplasm of cervix uteri; Z96.1 Presence of intraocular lens; Z53.29 Procedure and treatment not carried out because of patient's decision for other reasons
CPT/HCPCS: 99285; 36415; 93005; 80053; 83735; 85025; 72125; 70450; G0378; G0480; 80320

== ENCOUNTER 2024-03-29 00:59 | Emergency (ER) | payer OTHER ==
--- NOTE | 2024-03-29 01:09 | ED ---
General Adult HPI - General Stated complaint: Seizure Time Seen by Provider: 03/29/24 01:02 Source: patient, RN notes reviewed, old records reviewed - History of Present Illness Initial comments: 58 yo female enters with an unresponsive episode. Patient admits to alcohol consumption. She is alert but clinically intoxicated upon arrival. Paramedics had a hard time waking the patient up uncertain if she had seizure activity. She does report history of seizure activity. Patient has no complaints at time my evaluation and wishes to be discharged. - Related Data Home Medications Medication Instructions Recorded Confirmed Atorvastatin [Lipitor] 20 mg PO HS 09/06/23 03/22/24 Mirtazapine [Remeron] 15 mg PO HS 09/06/23 03/22/24 Albuterol Inhaler [Ventolin Hfa 2 puff INHALATION RT-Q6H PRN 11/18/23 03/22/24 Inhaler] levETIRAcetam [Keppra] 500 mg PO BID 02/15/24 03/22/24 Previous Rx's Medication Instructions Recorded Thiamine [Vitamin B-1] 100 mg PO DAILY@1200 #30 tab 11/20/23 QUEtiapine [SEROquel] 25 mg PO BID #60 tab 12/20/23 traZODone HCL [Desyrel] 50 mg PO HS #30 tab 12/20/23 Allergies Allergy/AdvReac Type Severity Reaction Status Date / Time Penicillins Allergy Rash/Hives/Swelling Verified 03/29/24 01:29 all over body NSAIDS (Non-Steroidal AdvReac Unknown upset Verified 03/29/24 01:29 Anti-Inflamma stomach sertraline HCl [From Zoloft] AdvReac Suicidal/Ag Verified 03/29/24 01:29 ression Review of Systems ROS Statement: Those systems with pertinent positive or pertinent negative responses have been documented in the HPI. ROS Other: All systems not noted in ROS Statement are negative. Past Medical History Past Medical History: COPD, Liver Disease, Myocardial Infarction ([place]), Seizure Disorder, Vascular Disorder Additional Past Medical History / Comment(s): constpation, last bowel movement 4 days ago, feeling bloated,feeling of fullness, and abdominal pain, feels hungry then over eats then vomits to feel better, LAST SEIZURE - JANUARY 2021, "broken heart syndrome"., elevated liver enzymes, "dislocated disks", hx cervical cancer Last Myocardial Infarction Date:: 2019 History of Any Multi-Drug Resistant Organisms: None Reported Past Surgical History: Section, Heart Catheterization, Tubal Ligation Additional Past Surgical History / Comment(s): ORIF rt ankle/hardware later removed, exploratory lap, PAIN CLINIC PROCEDURE, BILAT CATARACTS REMOVED WITH LENS IMPLANTS, procedure to open a vein in left leg-couldn't confirm which leg, partial amputation rt hand middle finger, "procedure to remove cervical cancer" Past Anesthesia/Blood Transfusion Reactions: No Reported Reaction Past Psychological History: Anxiety, Bipolar, Depression, PTSD Smoking Status: Current every day smoker Past Alcohol Use History: Abuse, Daily, Heavy Past Drug Use History: Marijuana - Past Family History Father Family Medical History: Cancer, Prostate Disorder, Pulmonary Embolus Sister(s) Family Medical History: Cancer Brother(s) Family Medical History: Cancer Additional Family Medical History / Comment(s): colon and bladder General Exam General appearance: appears intoxicated, lethargic Head exam: Present: atraumatic, normocephalic Eye exam: Present: normal appearance, PERRL Neck exam: Present: normal inspection Respiratory exam: Present: normal lung sounds bilaterally. Absent: respiratory distress, wheezes Cardiovascular Exam: Present: regular rate, normal rhythm GI/Abdominal exam: Present: soft. Absent: distended, tenderness, guarding Extremities exam: Present: normal inspection, normal capillary refill Neurological exam: Present: alert, oriented X3. Absent: motor sensory deficit Skin exam: Present: warm, dry, intact. Absent: cyanosis, diaphoretic Course Vital Signs 03/29/24 01:30 Temperature 97.3 F L Pulse Rate 64 Respiratory 14 Rate Blood Pressure 159/111 O2 Sat by Pulse 96 Oximetry - Reevaluation(s) Reevaluation #1: 03/29/24 01:54 Patient awake and alert, clinically intoxicated. She is eager for discharge and does have a ride home. Medical Decision Making - Medical Decision Making Was pt. sent in by a medical professional or institution (, PA, ELECTRO MECHANICAL SOLAR TECHNICIAN, urgent care, hospital, or assisted...) When possible be specific @ -No Did you speak to anyone other than the patient for history (EMS, parent, family, police, friend...)? What history was obtained from this source @ -No Did you review nursing and triage notes (agree or disagree)? Why? @ -I reviewed and agree with nursing and triage notes Were old charts reviewed (outside hosp., previous admission, EMS record, old EKG, old radiological studies, urgent care reports/EKG's, assisted records)? Report findings @ -No old charts were reviewed Differential Altered Mental Status: Hypoglycemia, DKA, hypercapnia, ETOH, overdose, CO poisoning, trauma, myxedema coma, HTN encephalopathy, infection, encephalitis, psychosis, intercranial he morrhage, hepatic encephalopathy, meningitis, CVA, this is not meant to be an all-inclusive list EKG interpreted by me (3pts min.). @ -Sinus rhythm rate of 77, GA interval 180, QRS duration 103, QTc [address] segment elevation. X-rays interpreted by me (1pt min.). @ -None done CT interpreted by me (1pt min.). @ -None done U/S interpreted by me (1pt. min.). @ -None done What testing was considered but not performed or refused? (CT, X-rays, U/S, labs)? Why? @ -None What meds were considered but not given or refused? Why? @ -None Did you discuss the management of the patient with other professionals (professionals i.e. , PA, ELECTRO MECHANICAL SOLAR TECHNICIAN, lab, RT, psych nurse, clinical social work aide, resident care manager, teacher, branch officer, case hardener)? Give summary @ -No Was smoking cessation discussed for >3mins.? @ -No Was critical care preformed (if so, how long)? @ -No Were there social determinants of health that impacted care today? How? (Homelessness, low income, unemployed, alcoholism, drug addiction, transp ortation, low edu. Level, literacy, decrease access to med. care, prison, rehab)? @ -No Was there de-escalation of care discussed even if they declined (Discuss DNR or withdrawal of care, Hospice)? DNR status @ -No What co-morbidities impacted this encounter? (DM, HTN, Smoking, COPD, CAD, Cancer, CVA, ARF, Chemo, Hep., AIDS, mental health diagnosis, sleep apnea, morbid obesity)? @ -Alcohol Was patient admitted / discharged? Hospital course, mention meds given and route, prescriptions, significant lab abnormalities, going to OR and other pertinent info. @ -58-year-old female presenting with alcohol intoxication, reduced level of consciousness patient transported by paramedics. Upon arrival she is intoxicated but able to answer questions. Vital signs are stable. Breath alcohol is 225. Patient is observed in the emergency department without need for respiratory support or supplemental oxygen. She is awake, clinically intoxicated. She is able to be discharged home with family. Undiagnosed new problem with uncertain prognosis? @ -No Drug Therapy requiring intensive monitoring for toxicity (Heparin, Nitro, Insulin, Cardizem)? @ -No Were any procedures done? @ -No Diagnosis/symptom? @Alcohol intoxication Acute, or Chronic, or Acute on Chronic? @ -Acute on chronic Uncomplicated (without systemic symptoms) or Complicated (systemic symptoms)? @ -Default Side effects of treatment? @ -No Exacerbation, Progression, or Severe Exacerbation? @ -No Poses a threat to life or bodily function? How? (Chest pain, [place], [place], pneumonia, PE, COPD, DKA, ARF, appy, cholecystitis, CVA, Diverticulitis, Homicidal, Suicidal, threat to staff... and all critical care pts) @ -Moderate risk, daily alcohol abuse - Lab Data Result diagrams: 03/29/24 01:20 Lab Results 03/29/24 03/29/24 03/29/24 Range/Units 01:20 01:20 01:38 WBC 6.7 (3.8-10.6) k/uL RBC 4.53 (3.80-5.40) m/uL Hgb 14.3 (11.4-16.0) gm/dL Hct 41.5 (34.0-46.0) % MCV 91.7 (80.0-100.0) fL MCH 31.5 (25.0-35.0) pg MCHC 34.3 (31.0-37.0) g/dL RDW 15.0 (11.5-15.5) % Plt Count 218 (150-450) k/uL MPV 7.0 PT 10.4 (10.0-12.5) sec INR 0.9 (<1.2) APTT 25.0 (22.0-30.0) sec Urine Color Colorless Urine Appearance Clear (Clear) Urine pH 5.0 (5.0-8.0) Ur Specific [place] 1.003 (1.001-1.035) Urine Protein Negative (Negative) Urine Glucose (UA) Negative (Negative) Urine Ketones Negative (Negative) Urine Blood Negative (Negative) Urine Nitrite Negative (Negative) Urine Bilirubin Negative (Negative) Urine Urobilinogen <2.0 (<2.0) mg/dL Ur Leukocyte Esterase Negative (Negative) Disposition Clinical Impression: Alcohol intoxication Disposition: HOME SELF-CARE Condition: Fair Instructions (If sedation given, give patient instructions): Alcohol Intoxicati on (ED) Is patient prescribed a controlled substance at d/c from ED?: No Referrals: None,Stated [Primary Care Provider] - 1-2 days Time of Disposition: 01:56
[2024-03-29 01:42] LABS: ALT 11 U/L (4-34); AST 28 U/L (14-36); African American GFR (CKD) >90 (>60 ml/min/1.73 sqM); Albumin 4.4 g/dL (3.5-5.0); Alkaline Phosphatase 104 U/L (38-126); Anion Gap 11 mmol/L; Blood Urea Nitrogen 8 mg/dL (7-17); Calcium 8.6 mg/dL (8.4-10.2); Carbon Dioxide 22 mmol/L (22-30); Chloride 110 mmol/L (98-107); Glucose 86 mg/dL (74-99); INR 0.9 (<1.2); Non-African American GFR(CKD) >90 (>60 ml/min/1.73 sqM); Potassium 3.8 mmol/L (3.5-5.1); Prothrombin Time 10.4 sec (10.0-12.5); Sodium 143 mmol/L (137-145); Total Bilirubin 0.3 mg/dL (0.2-1.3); Total Protein 6.9 g/dL (6.3-8.2)
[2024-03-29 01:43] LABS: HCT 41.5 % (34.0-46.0); HGB 14.3 gm/dL (11.4-16.0); MCH 31.5 pg (25.0-35.0); MCHC 34.3 g/dL (31.0-37.0); MCV 91.7 fL (80.0-100.0); Platelet Count 218 k/uL (150-450); RBC 4.53 m/uL (3.80-5.40); WBC 6.7 k/uL (3.8-10.6)
[2024-03-29 01:49] LABS: Appearance,Urine Clear (Clear); Bilirubin,Urine Negative (Negative); Blood,Urine Negative (Negative); Color,Urine Colorless; Glucose,Urine (UA) Negative (Negative); Ketones,Urine Negative (Negative); Leukocyte Esterase,Urine Negative (Negative); Nitrite,Urine Negative (Negative); Protein,Urine Negative (Negative); Specific Gravity,Urine 1.003 (1.001-1.035); Urobilinogen,Urine <2.0 mg/dL (<2.0)
[2024-03-29 01:55] LABS: Alcohol 317 mg/dL
[2024-03-29 02:03] LABS: Amphetamine Screen,Urine Not Detected (NotDetected); Barbiturate Screen,Urine Not Detected (NotDetected); Benzodiazepines Screen,Urine Not Detected (NotDetected); Cocaine Screen,Urine Not Detected (NotDetected); Methadone Screen, Urine Not Detected (NotDetected); Opiate Screen,Urine Not Detected (NotDetected); Oxycodone Screen, Urine Not Detected (NotDetected); Phencyclidine Screen,Urine Not Detected (NotDetected); Tricyclic Antidepressant,Urine Not Detected (NotDetected); Urn Cannabinoid Scrn Detected (NotDetected)
[2024-03-29 02:07] VITALS: BP 149/101; PULSE 65; RESP 16; TEMP 97.6
[2024-03-29 02:36] LABS: Band Neutrophils % 1 %; Lymphocytes # (M) 4.29 k/uL (1.0-4.8); Neutrophils % (M) 26 %; Nucleated Red Blood Cells 0 /100 WBC (0-0); Total Cells Counted 100
[2024-03-29 02:38] LABS: RBC Morphology Normal
== END 2024-03-29 02:17 | disposition home or self-care (01) ==
LOC: EC 00:59
CPT/HCPCS: 36415; 80053; 80306; 80320; 81003; 85025; 85610; 85730; 93005; 99284

== ENCOUNTER 2024-04-03 17:43 | Emergency (ER) | payer OTHER ==
[2024-04-03 17:58] VITALS: RESP 16; TEMP 98.7
[2024-04-03 18:52] LABS: Basophils % (A) 1 %; Eosinophils # (A) 0.1 k/uL (0-0.7); Eosinophils % (A) 1 %; HCT 42.5 % (34.0-46.0); Lymphocytes # (A) 2.8 k/uL (1.0-4.8); Lymphocytes % (A) 43 %; MCH 30.9 pg (25.0-35.0); MCV 93.6 fL (80.0-100.0); Mean Platelet Volume 7.1; Monocytes # (A) 0.6 k/uL (0-1.0); Monocytes % (A) 10 %; Neutrophils # (A) 2.8 k/uL (1.3-7.7); Neutrophils % (A) 44 %; Platelet Count 253 k/uL (150-450); RBC 4.54 m/uL (3.80-5.40); RDW 14.5 % (11.5-15.5); WBC 6.5 k/uL (3.8-10.6)
[2024-04-03 19:11] LABS: ALT 11 U/L (4-34); African American GFR (CKD) >90 (>60 ml/min/1.73 sqM); Albumin 4.7 g/dL (3.5-5.0); Anion Gap 9 mmol/L; Blood Urea Nitrogen 8 mg/dL (7-17); Calcium 8.9 mg/dL (8.4-10.2); Carbon Dioxide 19 mmol/L (22-30); Chloride 108 mmol/L (98-107); Glucose 86 mg/dL (74-99); Non-African American GFR(CKD) >90 (>60 ml/min/1.73 sqM); Sodium 136 mmol/L (137-145); Total Bilirubin 0.6 mg/dL (0.2-1.3); Total Protein 7.1 g/dL (6.3-8.2)
[2024-04-03 19:21] LABS: AST 31 U/L (14-36); Alcohol 244 mg/dL; Alkaline Phosphatase 89 U/L (38-126); Magnesium 1.7 mg/dL (1.6-2.3); Potassium 4.3 mmol/L (3.5-5.1)
[2024-04-03 19:23] LABS: Appearance,Urine Clear (Clear); Bilirubin,Urine Negative (Negative); Blood,Urine Negative (Negative); Color,Urine Colorless; Glucose,Urine (UA) Negative (Negative); Ketones,Urine Negative (Negative); Leukocyte Esterase,Urine Negative (Negative); Nitrite,Urine Negative (Negative); PH, Urine 5.5 (5.0-8.0); Protein,Urine Negative (Negative); Specific Gravity,Urine 1.002 (1.001-1.035); Urobilinogen,Urine <2.0 mg/dL (<2.0)
[2024-04-03 19:36] LABS: Amphetamine Screen,Urine Not Detected (NotDetected); Barbiturate Screen,Urine Not Detected (NotDetected); Benzodiazepines Screen,Urine Not Detected (NotDetected); Cocaine Screen,Urine Not Detected (NotDetected); Methadone Screen, Urine Not Detected (NotDetected); Opiate Screen,Urine Not Detected (NotDetected); Oxycodone Screen, Urine Not Detected (NotDetected); Phencyclidine Screen,Urine Not Detected (NotDetected); Tricyclic Antidepressant,Urine Not Detected (NotDetected); Urn Cannabinoid Scrn Detected (NotDetected)
--- NOTE | 2024-04-03 21:10 | ED ---
Seizure HPI - General Chief Complaint: Seizure Stated Complaint: Seizure Time Seen by Provider: 04/03/24 18:10 Source: patient Mode of arrival: EMS Limitations: altered mental status - History of Present Illness Initial Comments: 58-year-old female with past medical history of seizure disorder and alcoholism who presents to the emergency department after a seizure. Seizure was reported by her significant other. He reports that she had 2 of them this morning. He is unsure if she is taking her medications however in the emergency department the patient is alert and oriented and capable of stating that she is taking her medications. She has never followed with a neurologist. She was started on Keppra and never followed up to adjust this medication. She has had multiple breakthrough seizures. No trauma reported patient denies any headache or visual changes. No fevers. She does not take blood thinners. She denies any neck or back pain. No other alleviating, precipitating or modifying factors - Related Data Home Medications Medication Instructions Recorded Confirmed Atorvastatin [Lipitor] 20 mg PO HS 09/06/23 04/03/24 Mirtazapine [Remeron] 15 mg PO HS 09/06/23 04/03/24 Albuterol Inhaler [Ventolin Hfa 2 puff INHALATION RT-Q6H PRN 11/18/23 04/03/24 Inhaler] levETIRAcetam [Keppra] 500 mg PO BID 02/15/24 04/03/24 Previous Rx's Medication Instructions Recorded Thiamine [Vitamin B-1] 100 mg PO DAILY@1200 #30 tab 11/20/23 QUEtiapine [SEROquel] 25 mg PO BID #60 tab 12/20/23 traZODone HCL [Desyrel] 50 mg PO HS #30 tab 12/20/23 Allergies Allergy/AdvReac Type Severity Reaction Status Date / Time Penicillins Allergy Rash/Hives/Swelling Verified 04/03/24 19:50 all over body NSAIDS (Non-Steroidal AdvReac Unknown upset Verified 04/03/24 19:50 Anti-Inflamma stomach sertraline HCl [From Zoloft] AdvReac Suicidal/Ag Verified 04/03/24 19:50 ression Review of Systems ROS Statement: Those systems with pertinent positive or pertinent negative responses have been documented in the HPI. ROS Other: All systems not noted in ROS Statement are negative. Past Medical History Past Medical History: COPD, Liver Disease, Myocardial Infarction (NH), Seizure Disorder, Vascular Disorder Additional Past Medical History / Comment(s): constpation, last bowel movement 4 days ago, feeling bloated,feeling of fullness, and abdominal pain, feels hungry then over eats then vomits to feel better, LAST SEIZURE - JANUARY 2021, "broken heart syndrome"., elevated liver enzymes, "dislocated disks", hx cervical cancer Last Myocardial Infarction Date:: 2019 History of Any Multi-Drug Resistant Organisms: None Reported Past Surgical History: Section, Heart Catheterization, Tubal Ligation Additional Past Surgical History / Comment(s): ORIF rt ankle/hardware later re moved, exploratory lap, PAIN CLINIC PROCEDURE, BILAT CATARACTS REMOVED WITH LENS IMPLANTS, procedure to open a vein in left leg-couldn't confirm which leg, partial amputation rt hand middle finger, "procedure to remove cervical cancer" Past Anesthesia/Blood Transfusion Reactions: No Reported Reaction Past Psychological History: Anxiety, Bipolar, Depression, PTSD Smoking Status: Current every day smoker Past Alcohol Use History: Abuse, Daily, Heavy Past Drug Use History: Marijuana - Past Family History Father Family Medical History: Cancer, Prostate Disorder, Pulmonary Embolus Sister(s) Family Medical History: Cancer Brother(s) Family Medical History: Cancer Additional Family Medical History / Comment(s): colon and bladder General Exam General appearance: alert, in no apparent distress, appears intoxicated Head exam: Present: atraumatic, normocephalic, normal inspection Eye exam: Present: normal appearance, PERRL, EOMI. Absent: scleral icterus, conjunctival injection, periorbital swelling ENT exam: Present: normal exam, mucous membranes moist Neck exam: Present: normal inspection. Absent: tenderness, meningismus, lymphadenopathy Respiratory exam: Present: normal lung sounds bilaterally. Absent: respiratory distress, wheezes, rales, rhonchi, stridor Cardiovascular Exam: Present: regular rate, normal rhythm, normal heart sounds. Absent: systolic murmur, diastolic murmur, rubs, gallop, clicks GI/Abdominal exam: Present: soft, normal bowel sounds. Absent: distended, tenderness, guarding, rebound, rigid Extremities exam: Present: normal inspection, full ROM, normal capillary refill. Absent: tenderness, pedal edema, joint swelling, calf tenderness Back exam: Present: normal inspection Neurological exam: Present: alert, oriented X3, CN II-XII intact Psychiatric exam: Present: normal affect, normal mood Skin exam: Present: warm, dry, intact, normal color. Absent: rash Course Vital Signs 04/03/24 04/03/24 17:50 21:12 Temperature 98.7 F 98.7 F Pulse Rate 80 74 Respiratory 16 16 Rate Blood Pressure 156/95 148/96 O2 Sat by Pulse 97 98 Oximetry Medical Decision Making - Medical Decision Making Was pt. sent in by a medical professional or institution (, PA, INTEGRATION ARCHITECT, urgent care, hospital, or correction...) When possible be specific @ -No Did you speak to anyone other than the patient for history (EMS, parent, family, police, friend...)? What history was obtained from this source @ -Spoke with EMS and significant other for history Did you review nursing and triage notes (agree or disagree)? Why? @ -I reviewed and agree with nursing and triage notes Were old charts reviewed (outside hosp., previous admission, EMS record, old EK G, old radiological studies, urgent care reports/EKG's, correction records)? Report findings @ -I reviewed previous ED visits as patient was recently in the ED for same complaint Differential Diagnosis (chest pain, altered mental status, abdominal pain women, abdominal pain men, vaginal bleeding, weakness, fever, dyspnea, syncope, headache, dizziness, GI bleed, back pain, seizure, CVA, palpatations, mental health, musculoskeletal)? @ -Differential Seizure: Recurrent seizure disorder, febrile seizure, alcohol withdrawal, stimulants, meningitis, encephalitis, intercranial hemorrhage, intracranial tumor, stroke, eclampsia, thyrotoxicosis, hypocalcemia, hyponatremia, hypernatremia, hypomag nesemia, psychogenic, this is not meant to be an all-inclusive list. EKG interpreted by me (3pts min.). @ -Yes and demonstrates sinus rhythm with rate of 73. IA interval 178. QRS 96. QTc of 425. No acute ST segment elevations or depressions X-rays interpreted by me (1pt min.). @ -Not done CT interpreted by me (1pt min.). @ -None done U/S interpreted by me (1pt. min.). @ -None done What testing was considered but not performed or refused? (CT, X-rays, U/S, labs)? Why? @ -EEG however patient does want to be hospitalized What meds were considered but not given or refused? Why? @ -Increased dose of Keppra however patient does not want to be increased Did you discuss the management of the patient with other professionals (professionals i.e. , PA, INTEGRATION ARCHITECT, lab, RT, psych nurse, social services coordinator, mottle lay up operator, teacher, real estate utilization officer, pillowcase turner)? Give summary @ -No Was smoking cessation discussed for >3mins.? @ -No Was critical care preformed (if so, how long)? @ -No Were there social determinants of health that impacted care today? How? (Homelessness, low income, unemployed, alcoholism, drug addiction, transportation, low edu. Level, literacy, decrease access to med. care, [place] [facility], [facility] ehab)? @ -No Was there de-escalation of care discussed even if they declined (Discuss DNR or withdrawal of care, Hospice)? DNR status @ -No What co-morbidities impacted this encounter? (DM, HTN, Smoking, COPD, CAD, Cancer, CVA, ARF, Chemo, Hep., AIDS, mental health diagnosis, sleep apnea, morbid obesity)? @ -Alcoholism, seizure disorder Was patient admitted / discharged? Hospital course, mention meds given and route, prescriptions, significant lab abnormalities, going to OR and other pertinent info. @ -Upon arrival patient seen and evaluated in hallway 10. Thorough history and physical exam was performed. She does smell of alcohol however is alert and oriented x 3 and able to answer questions appropriately. She was agreeable to laboratory studies. Upon return I did discuss results with the patient. Due to breakthrough seizures I did recommend increasing the patient's Keppra however she wants to follow-up with her primary care doctor to have this adjustment made. I did request to keep the patient in the hospital to see neurology however she refused. Her significant other is at bedside. States that breakthrough seizures are frequent for her and he was okay taking her home. I strongly suggested that the patient follow-up with neurology as she may need medication adjustments. I also informed her that alcohol lowers her threshold and I recommend that she quit drinking. Patient understood this. Discharged in stable condition Undiagnosed new problem with uncertain prognosis? @ -No Drug Therapy requiring intensive monitoring for toxicity (Heparin, Nitro, Insulin, Cardizem)? @ -No Were any procedures done? @ -No Diagnosis/symptom? @ -Acute seizure, history of seizure disorder, chronic alcohol abuse, alcohol intoxication Acute, or Chronic, or Acute on Chronic? @ -[Acute on chronic Uncomplicated (without systemic symptoms) or Complicated (systemic symptoms)? @ -Complicated Side effects of treatment? @ -No Exacerbation, Progression, or Severe Exacerbation? @ -No Poses a threat to life or bodily function? How? (Chest pain, [place], NH, pneumonia, PE, COPD, DKA, ARF, appy, cholecystitis, CVA, Diverticulitis, Homicidal, Suicidal, threat to staff... and all critical care pts) @ -No - Lab Data Result diagrams: 04/03/24 18:39 04/03/24 18:39 Lab Results 04/03/24 04/03/24 04/03/24 Range/Units 18:39 18:39 18:46 WBC 6.5 (3.8-10.6) k/uL RBC 4.54 (3.80-5.40) m/uL Hgb 14.0 (11.4-16.0) gm/dL Hct 42.5 (34.0-46.0) % MCV 93.6 (80.0-100.0) fL MCH 30.9 (25.0-35.0) pg MCHC 33.0 (31.0-37.0) g/dL RDW 14.5 (11.5-15.5) % Plt Count 253 (150-450) k/uL MPV 7.1 Neutrophils % 44 % Lymphocytes % 43 % Monocytes % 10 % Eosinophils % 1 % Basophils % 1 % Neutrophils # 2.8 (1.3-7.7) k/uL Lymphocytes # 2.8 (1.0-4.8) k/uL Monocytes # 0.6 (0-1.0) k/uL Eosinophils # 0.1 (0-0.7) k/uL Basophils # 0.0 (0-0.2) k/uL Sodium 136 L (137-145) mmol/L Potassium 4.3 (3.5-5.1) mmol/L Chloride 108 H (98-107) mmol/L Carbon Dioxide 19 L (22-30) mmol/L Anion Gap 9 mmol/L BUN 8 (7-17) mg/dL Creatinine 0.44 L (0.52-1.04) mg/dL Est GFR (CKD-EPI)AfAm >90 (>60 ml/min/1.73 sqM) Est GFR (CKD-EPI)NonAf >90 (>60 ml/min/1.73 sqM) Glucose 86 (74-99) mg/dL Plasma Lactic Acid Anthony 1.5 (0.7-2.0) mmol/L Calcium 8.9 (8.4-10.2) mg/dL Magnesium 1.7 (1.6-2.3) mg/dL Total Bilirubin 0.6 (0.2-1.3) mg/dL AST 31 (14-36) U/L ALT 11 (4-34) U/L Alkaline Phosphatase 89 (38-126) U/L Total Protein 7.1 (6.3-8.2) g/dL Albumin 4.7 (3.5-5.0) g/dL Urine Color Urine Appearance (Clear) Urine pH (5.0-8.0) Ur Specific [place] (1.001-1.035) Urine Protein (Negative) Urine Glucose (UA) (Negative) Urine Ketones (Negative) Urine Blood (Negative) Urine Nitrite (Negative) Urine Bilirubin (Negative) Urine Urobilinogen (<2.0) mg/dL Ur Leukocyte Esterase (Negative) Urine Opiates Screen (NotDetected) Ur Oxycodone Screen (NotDetected) Urine Methadone Screen (NotDetected) Ur Barbiturates Screen (NotDetected) U Tricyclic Antidepress (NotDetected) Ur Phencyclidine Scrn (NotDetected) Ur Amphetamines Screen (NotDetected) U Methamphetamines Scrn (NotDetected) U Benzodiazepines Scrn (NotDetected) Urine Cocaine Screen (NotDetected) U Marijuana (THC) Screen (NotDetected) Serum Alcohol 244 H* mg/dL 04/03/24 Range/Units 19:03 WBC (3.8-10.6) k/uL RBC (3.80-5.40) m/uL Hgb (11.4-16.0) gm/dL Hct (34.0-46.0) % MCV (80.0-100.0) fL MCH (25.0-35.0) pg MCHC (31.0-37.0) g/dL RDW (11.5-15.5) % Plt Count (150-450) k/uL MPV Neutrophils % % Lymphocytes % % Monocytes % % Eosinophils % % Basophils % % Neutrophils # (1.3-7.7) k/uL Lymphocytes # (1.0-4.8) k/uL Monocytes # (0-1.0) k/uL Eosinophils # (0-0.7) k/uL Basophils # (0-0.2) k/uL Sodium (137-145) mmol/L Potassium (3.5-5.1) mmol/L Chloride (98-107) mmol/L Carbon Dioxide (22-30) mmol/L Anion Gap mmol/L BUN (7-17) mg/dL Creatinine (0.52-1.04) mg/dL Est GFR (CKD-EPI)AfAm (>60 ml/min/1.73 sqM) Est GFR (CKD-EPI)NonAf (>60 ml/min/1.73 sqM) Glucose (74-99) mg/dL Plasma Lactic Acid Anthony (0.7-2.0) mmol/L Calcium (8.4-10.2) mg/dL Magnesium (1.6-2.3) mg/dL Total Bilirubin (0.2-1.3) mg/dL AST (14-36) U/L ALT (4-34) U/L Alkaline Phosphatase (38-126) U/L Total Protein (6.3-8.2) g/dL Albumin (3.5-5.0) g/dL Urine Color Colorless Urine Appearance Clear (Clear) Urine pH 5.5 (5.0-8.0) Ur Specific [place] 1.002 (1.001-1.035) Urine Protein Negative (Negative) Urine Glucose (UA) Negative (Negative) Urine Ketones Negative (Negative) Urine Blood Negative (Negative) Urine Nitrite Negative (Negative) Urine Bilirubin Negative (Negative) Urine Urobilinogen <2.0 (<2.0) mg/dL Ur Leukocyte Esterase Negative (Negative) Urine Opiates Screen Not Detected (NotDetected) Ur Oxycodone Screen Not Detected (NotDetected) Urine Methadone Screen Not Detected (NotDetected) Ur Barbiturates Screen Not Detected (NotDetected) U Tricyclic Antidepress Not Detected (NotDetected) Ur Phencyclidine Scrn Not Detected (NotDetected) Ur Amphetamines Screen Not Detected (NotDetected) U Methamphetamines Scrn Not Detected (NotDetected) U Benzodiazepines Scrn Not Detected (NotDetected) Urine Cocaine Screen Not Detected (NotDetected) U Marijuana (THC) Screen Detected H (NotDetected) Serum Alcohol mg/dL Disposition Clinical Impression: Alcohol abuse, Breakthrough seizure Disposition: HOME SELF-CARE Condition: Stable Instructions (If sedation given, give patient instructions): Seizure/Epilepsy Discharge Instructions & Follow-Up Additional Instructions: Please follow-up with your primary care doctor in regards to your breakthrough seizures. Continue taking your Keppra as it is prescribed. I recommend that you quit drinking. Return for any new or worsening symptoms Is patient prescribed a controlled substance at d/c from ED?: No Referrals: None,Stated [Primary Care Provider] - 1-2 days Time of Disposition: 21:10
[2024-04-03 21:12] VITALS: BP 148/96; PULSE 74
== END 2024-04-03 21:16 | disposition home or self-care (01) ==
LOC: EC 17:43
CPT/HCPCS: 36415; 80053; 80306; 80320; 81003; 83605; 83735; 85025; 93005; 99285

== ENCOUNTER 2024-04-06 17:12 | Emergency (ER) | payer OTHER ==
[2024-04-06 17:20] VITALS: RESP 18
--- NOTE | 2024-04-06 17:33 | ED ---
Altered Mental Status HPI - General Chief Complaint: Altered Mental Status Stated Complaint: unresponsive Time Seen by Provider: 04/06/24 17:17 Source: EMS, RN notes reviewed, old records reviewed Mode of arrival: EMS Limitations: no limitations - History of Present Illness Initial Comments: This is a 58-year-old female to the ER for evaluation patient presents today for evaluation in regards to altered mental status with known history of seizures and alcohol abuse, patient unable to give history currently MD Complaint: altered mental status, confusion, decreased responsiveness, intoxication -: unknown Severity: severe Consistency of Symptoms: getting worse Context: alcohol abuse, seizure disorder Associated Symptoms: denies other symptoms Treatments Prior to Arrival: IV fluid, oxygen - Related Data Home Medications Medication Instructions Recorded Confirmed Atorvastatin [Lipitor] 20 mg PO HS 09/06/23 04/11/24 Mirtazapine [Remeron] 15 mg PO HS 09/06/23 04/11/24 Albuterol Inhaler [Ventolin Hfa 2 puff INHALATION RT-Q6H PRN 11/18/23 04/11/24 Inhaler] levETIRAcetam [Keppra] 500 mg PO BID 02/15/24 04/11/24 Previous Rx's Medication Instructions Recorded Thiamine [Vitamin B-1] 100 mg PO DAILY@1200 #30 tab 11/20/23 QUEtiapine [SEROquel] 25 mg PO BID #60 tab 12/20/23 traZODone HCL [Desyrel] 50 mg PO HS #30 tab 12/20/23 Ondansetron Odt [Zofran Odt] 4 mg PO Q8HR PRN #10 tab 04/12/24 Allergies Allergy/AdvReac Type Severity Reaction Status Date / Time Penicillins Allergy Rash/Hives/Swelling Verified 04/11/24 08:40 all over body NSAIDS (Non-Steroidal AdvReac Unknown upset Verified 04/11/24 08:40 Anti-Inflamma stomach sertraline HCl [From Zoloft] AdvReac Suicidal/Ag Verified 04/11/24 08:40 ression Review of Systems ROS Statement: Those systems with pertinent positive or pertinent negative responses have been documented in the HPI. ROS Other: All systems not noted in ROS Statement are negative. Past Medical History Past Medical History: COPD, Liver Disease, Myocardial Infarction ([place]), Seizure Disorder, Vascular Disorder Additional Past Medical History / Comment(s): constpation, last bowel movement 4 days ago, feeling bloated,feeling of fullness, and abdominal pain, feels hungry then over eats then vomits to feel better, LAST SEIZURE - JANUARY 2021, "broken heart syndrome"., elevated liver enzymes, "dislocated disks", hx cervical cancer Last Myocardial Infarction Date:: 2019 History of Any Multi-Drug Resistant Organisms: None Reported Past Surgical History: Section, Heart Catheterization, Tubal Ligation Additional Past Surgical History / Comment(s): ORIF rt ankle/hardware later removed, exploratory lap, PAIN CLINIC PROCEDURE, BILAT CATARACTS REMOVED WITH LENS IMPLANTS, procedure to open a vein in left leg-couldn't confirm which leg, partial amputation rt hand middle finger, "procedure to remove cervical cancer" Past Anesthesia/Blood Transfusion Reactions: No Reported Reaction Past Psychological History: Anxiety, Bipolar, Depression, PTSD Smoking Status: Current every day smoker Past Alcohol Use History: Abuse, Daily, Heavy Past Drug Use History: Marijuana - Past Family History Father Family Medical History: Cancer, Prostate Disorder, Pulmonary Embolus Sister(s) Family Medical History: Cancer Brother(s) Family Medical History: Cancer Additional Family Medical History / Comment(s): colon and bladder General Exam Limitations: no limitations, altered mental status, physical limitation General appearance: alert, lethargic, in distress Head exam: Present: atraumatic, normocephalic, normal inspection Eye exam: Present: normal appearance, PERRL, EOMI. Absent: scleral icterus, conjunctival injection, periorbital swelling ENT exam: Present: normal exam, mucous membranes moist Neck exam: Present: normal inspection. Absent: tenderness, meningismus, lymphadenopathy Respiratory exam: Present: normal lung sounds bilaterally. Absent: respiratory distress, wheezes, rales, rhonchi, stridor Cardiovascular Exam: Present: regular rate, normal rhythm, normal heart sounds. Absent: systolic murmur, diastolic murmur, rubs, gallop, clicks GI/Abdominal exam: Present: soft, normal bowel sounds. Absent: distended, tenderness, guarding, rebound, rigid Extremities exam: Present: normal inspection, full ROM, normal capillary refill. Absent: tenderness, pedal edema, joint swelling, calf tenderness Back exam: Present: normal inspection Neurological exam: Present: alert, oriented X3, CN II-XII intact Psychiatric exam: Present: normal affect, normal mood Skin exam: Present: warm, dry, intact, normal color. Absent: rash Course Vital Signs 04/06/24 04/06/24 17:15 19:22 Temperature 98.7 F 98.2 F Pulse Rate 70 79 Respiratory 18 18 Rate Blood Pressure 164/109 122/77 O2 Sat by Pulse 99 97 Oximetry - Reevaluation(s) Reevaluation #1: 04/06/24 17:32 Medical records reviewed Reevaluation #2: 04/06/24 18:58 Patient waking up alert and awake feels good wants discharge Reevaluation #3: 04/06/24 18:58 Patient informed of results and questions answered Reevaluation #4: Was pt. sent in by a medical professional or institution (BENI Dill, [employer] GENERATOR, urgent care, hospital, or halfway...) When possible be specific @ -no Did you speak to anyone other than the patient for history (EMS, parent, family, police, friend...)? What history was obtained from this source @ -no Did you review nursing and triage notes (agree or disagree)? Why? @ -agree Are old charts reviewed (outside hosp., previous admission, EMS record, old EKG, old radiological studies, urgent care reports/EKG's, halfway records)? Report findings @ -yes Differential Diagnosis (chest pain, altered mental status, abdominal pain women, abdominal pain men, vaginal bleeding, weakness, fever, dyspnea, syncope, headache, dizziness, GI bleed, back pain, seizure, CVA, palpatations, mental health, musculoskeletal)? @ -prior EKG interpreted by me (3pts min.). @ -no X-rays interpreted by me (1pt min.). @ -no CT interpreted by me (1pt min.). @ -no U/S interpreted by me (1pt. min.). @ -no What testing was considered but not performed or refused? (CT, X-rays, U/S, labs)? Why? @ -none What meds were considered but not given or refused? Why? @ -none Did you discuss the management of the patient with other professionals (professionals i.e. BENI Dill, [employer]AR GENERATOR, lab, RT, psych nurse, drug abuse social worker, family lawyer, teacher, stream control officer, upper caser)? Give summary @ -no Was smoking cessation discussed for >3mins.? @ -no Was critical care preformed (if so, how long)? @ -no Were there social determinants of health that impacted care today? How? (Homelessness, low income, unemployed, alcoholism, drug addiction, transportation, low edu. Level, literacy, decrease access to med. care, assisted, rehab)? @ -none Was there de-escalation of care discussed even if they declined (Discuss DNR or withdrawal of care, Hospice)? DNR status @ -no What co-morbidities impacted this encounter? (DM, HTN, Smoking, COPD, CAD, Cancer, CVA, ARF, Chemo, Hep., AIDS, mental health diagnosis, sleep apnea, morbid obesity)? @ -none Was patient admitted / discharged? Hospital course, mention meds given and route, prescriptions, significant lab abnormalities, going to OR and other pertinent info. @ - 58 female to the ER for evaluation of alcohol intoxication and unresponsiveness. No evidence of seizure activity, patient can be discharged home to care of Discharge Undiagnosed new problem with uncertain prognosis? @ -no Drug Therapy requiring intensive monitoring for toxicity (Heparin, Nitro, Insulin, Cardizem)? @ -no Were any procedures done? @ -no Diagnosis/symptom? @ -Alcohol intoxication withdrawal Acute, or Chronic, or Acute on Chronic? @ -Acute Uncomplicated (without systemic symptoms) or Complicated (systemic symptoms)? @ -Complicated Side effects of treatment? @ -no Exacerbation, Progression, or Severe Exacerbation? @ -exacerbation Poses a threat to life or bodily function? How? (Chest pain, [place], [place], pneumonia, PE, COPD, DKA, ARF, appy, cholecystitis, CVA, Diverticulitis, Homicidal, Suicidal, threat to staff... and all critical care pts) @ -yes Reevaluation #5: Differential Altered Mental Status: Hypoglycemia, DKA, hypercapnia, ETOH, overdose, CO poisoning, trauma, myxedema coma, HTN encephalopathy, infection, encephalitis, psychosis, intercranial hemorrhage, hepatic encephalopathy, meningitis, CVA, this is not meant to be an all-inclusive list Medical Decision Making - Medical Decision Making 58 female to the ER for evaluation of alcohol intoxication and unresponsiveness. No evidence of seizure activity, patient can be discharged home to care of - Lab Data Result diagrams: 04/06/24 17:24 04/06/24 17:24 Lab Results 04/06/24 04/06/24 04/06/24 Range/Units 17:24 17:24 17:24 WBC 6.8 (3.8-10.6) k/uL RBC 4.84 (3.80-5.40) m/uL Hgb 15.4 (11.4-16.0) gm/dL Hct 45.1 (34.0-46.0) % MCV 93.1 (80.0-100.0) fL MCH 31.8 (25.0-35.0) pg MCHC 34.1 (31.0-37.0) g/dL RDW 15.3 (11.5-15.5) % Plt Count 268 (150-450) k/uL MPV 7.3 Neutrophils % 32 % Lymphocytes % 55 % Monocytes % 9 % Eosinophils % 1 % Basophils % 1 % Neutrophils # 2.2 (1.3-7.7) k/uL Lymphocytes # 3.7 (1.0-4.8) k/uL Monocytes # 0.6 (0-1.0) k/uL Eosinophils # 0.1 (0-0.7) k/uL Basophils # 0.0 (0-0.2) k/uL Sodium 140 (137-145) mmol/L Potassium 4.8 (3.5-5.1) mmol/L Chloride 111 H (98-107) mmol/L Carbon Dioxide 19 L (22-30) mmol/L Anion Gap 10 mmol/L BUN 5 L (7-17) mg/dL Creatinine 0.39 L (0.52-1.04) mg/dL Est GFR (CKD-EPI)AfAm >90 (>60 ml/min/1.73 sqM) Est GFR (CKD-EPI)NonAf >90 (>60 ml/min/1.73 sqM) Glucose 86 (74-99) mg/dL Calcium 9.2 (8.4-10.2) mg/dL Phosphorus 4.4 (2.5-4.5) mg/dL Magnesium 1.8 (1.6-2.3) mg/dL Total Bilirubin 0.9 (0.2-1.3) mg/dL AST 39 H (14-36) U/L ALT 13 (4-34) U/L Alkaline Phosphatase 98 (38-126) U/L Total Protein 8.0 (6.3-8.2) g/dL Albumin 5.0 (3.5-5.0) g/dL Lipase 128 (23-300) U/L Urine Color Colorless Urine Appearance Clear (Clear) Urine pH 5.0 (5.0-8.0) Ur Specific [place] 1.003 (1.001-1.035) Urine Protein Negative (Negative) Urine Glucose (UA) Negative (Negative) Urine Ketones Negative (Negative) Urine Blood Negative (Negative) Urine Nitrite Negative (Negative) Urine Bilirubin Negative (Negative) Urine Urobilinogen <2.0 (<2.0) mg/dL Ur Leukocyte Esterase Negative (Negative) Salicylates <1.0 mg/dL Urine Opiates Screen Not Detected (NotDetected) Ur Oxycodone Screen Not Detected (NotDetected) Urine Methadone Screen Not Detected (NotDetected) Acetaminophen <10.0 ug/mL Ur Barbiturates Screen Not Detected (NotDetected) U Tricyclic Antidepress Not Detected (NotDetected) Ur Phencyclidine Scrn Not Detected (NotDetected) Ur Amphetamines Screen Not Detected (NotDetected) U Methamphetamines Scrn Not Detected (NotDetected) U Benzodiazepines Scrn Not Detected (NotDetected) Urine Cocaine Screen Not Detected (NotDetected) U Marijuana (THC) Screen Detected H (NotDetected) Serum Alcohol 275 H* mg/dL Disposition Clinical Impression: Alcohol intoxication Disposition: HOME SELF-CARE Condition: Fair Instructions (If sedation given, give patient instructions): Alcohol Intoxic ation (ED) Is patient prescribed a controlled substance at d/c from ED?: No Referrals: [facility] [NON-STAFF] - 1-2 days [facility] [NON-STAFF] - 1-2 days None,Stated [Primary Care Provider] - 1-2 days Forms: AA Meetings Dist 22 [address] 24 - [facility], Outpatient Counseling, Inp Substance Abu se Facilities, Area PCPs Time of Disposition: 19:00
[2024-04-06] MEDS: SODIUM CHLORIDE 0.9% 1,000 ML IV STA ×2 (17:40→17:56)
[2024-04-06 17:57] LABS: Basophils % (A) 1 %; Eosinophils # (A) 0.1 k/uL (0-0.7); Eosinophils % (A) 1 %; HCT 45.1 % (34.0-46.0); HGB 15.4 gm/dL (11.4-16.0); Lymphocytes # (A) 3.7 k/uL (1.0-4.8); Lymphocytes % (A) 55 %; MCH 31.8 pg (25.0-35.0); MCHC 34.1 g/dL (31.0-37.0); MCV 93.1 fL (80.0-100.0); Mean Platelet Volume 7.3; Monocytes # (A) 0.6 k/uL (0-1.0); Monocytes % (A) 9 %; Neutrophils # (A) 2.2 k/uL (1.3-7.7); Neutrophils % (A) 32 %; Platelet Count 268 k/uL (150-450); RBC 4.84 m/uL (3.80-5.40); RDW 15.3 % (11.5-15.5); WBC 6.8 k/uL (3.8-10.6)
[2024-04-06 18:20] LABS: ALT 13 U/L (4-34); Acetaminophen <10.0 ug/mL; African American GFR (CKD) >90 (>60 ml/min/1.73 sqM); Anion Gap 10 mmol/L; Blood Urea Nitrogen 5 mg/dL (7-17); Calcium 9.2 mg/dL (8.4-10.2); Carbon Dioxide 19 mmol/L (22-30); Chloride 111 mmol/L (98-107); Glucose 86 mg/dL (74-99); Lipase 128 U/L (23-300); Non-African American GFR(CKD) >90 (>60 ml/min/1.73 sqM); Salicylate <1.0 mg/dL; Sodium 140 mmol/L (137-145); Total Bilirubin 0.9 mg/dL (0.2-1.3)
[2024-04-06 18:25] LABS: Alcohol 275 mg/dL
[2024-04-06 18:27] LABS: Potassium 4.8 mmol/L (3.5-5.1)
[2024-04-06 18:28] LABS: AST 39 U/L (14-36); Alkaline Phosphatase 98 U/L (38-126); Magnesium 1.8 mg/dL (1.6-2.3); Phosphorus 4.4 mg/dL (2.5-4.5)
[2024-04-06] MEDS: SODIUM CHLORIDE 0.9% 500 ML 500 ML IV STA (19:21)
[2024-04-06 19:24] VITALS: BP 122/77; PULSE 79; TEMP 98.2
[2024-04-06 19:27] LABS: Appearance,Urine Clear (Clear); Bilirubin,Urine Negative (Negative); Blood,Urine Negative (Negative); Color,Urine Colorless; Glucose,Urine (UA) Negative (Negative); Ketones,Urine Negative (Negative); Leukocyte Esterase,Urine Negative (Negative); Nitrite,Urine Negative (Negative); Protein,Urine Negative (Negative); Specific Gravity,Urine 1.003 (1.001-1.035); Urobilinogen,Urine <2.0 mg/dL (<2.0)
[2024-04-06 19:41] LABS: Amphetamine Screen,Urine Not Detected (NotDetected); Barbiturate Screen,Urine Not Detected (NotDetected); Benzodiazepines Screen,Urine Not Detected (NotDetected); Cocaine Screen,Urine Not Detected (NotDetected); Methadone Screen, Urine Not Detected (NotDetected); Opiate Screen,Urine Not Detected (NotDetected); Oxycodone Screen, Urine Not Detected (NotDetected); Phencyclidine Screen,Urine Not Detected (NotDetected); Tricyclic Antidepressant,Urine Not Detected (NotDetected); Urn Cannabinoid Scrn Detected (NotDetected)
== END 2024-04-06 19:24 | disposition home or self-care (01) ==
LOC: EC 17:12
DX: F10.129 Alcohol abuse with intoxication, unspecified (principal); F17.200 Nicotine dependence, unspecified, uncomplicated; Z88.8 Allergy status to other drugs, medicaments and biological substances; Z88.0 Allergy status to penicillin; Z88.6 Allergy status to analgesic agent; Y90.8 Blood alcohol level of 240 mg/100 ml or more
CPT/HCPCS: 36415; 80053; 83690; 83735; 84100; 85025; 81003; 80306; 80143; 80179; 99285; 96360; 96361; G0480; 80320

== ENCOUNTER 2024-04-10 22:17 | Observation (INO) | payer OTHER ==
--- NOTE | 2024-04-10 22:30 | ED ---
Altered Mental Status HPI - General Stated Complaint: Overdose Time Seen by Provider: 04/10/24 22:19 Source: EMS Mode of arrival: EMS Limitations: altered mental status - History of Present Illness Initial Comments: Patient is 58-year-old woman known to frequently drink, brought by EMS to have evaluation for altered mental status. Patient's roommate reportedly called EMS after she was not able to be awakened. No reported history of trauma. Patient not able to give any history. MD Complaint: altered mental status -: unknown Associated Symptoms: denies other symptoms - Related Data Home Medications Medication Instructions Recorded Confirmed levETIRAcetam [Keppra] 500 mg PO BID 02/15/24 04/24/24 Allergies Allergy/AdvReac Type Severity Reaction Status Date / Time Penicillins Allergy Rash/Hives/Swelling Verified 04/24/24 10:28 all over body NSAIDS (Non-Steroidal AdvReac Unknown upset Verified 04/24/24 10:28 Anti-Inflamma stomach sertraline HCl [From Zoloft] AdvReac Suicidal/Ag Verified 04/24/24 10:28 ression Review of Systems ROS Statement: Those systems with pertinent positive or pertinent negative responses have been documented in the HPI. ROS Other: All systems not noted in ROS Statement are negative. Limitations: ROS unobtainable due to patients medical condition Past Medical History Past Medical History: COPD, Liver Disease, Myocardial Infarction ([place]), Seizure Disorder, Vascular Disorder Additional Past Medical History / Comment(s): constpation, last bowel movement 4 days ago, feeling bloated,feeling of fullness, and abdominal pain, feels hungry then over eats then vomits to feel better, LAST SEIZURE - JANUARY 2021, "broken heart syndrome"., elevated liver enzymes, "dislocated disks", hx cervical cancer Last Myocardial Infarction Date:: 2019 History of Any Multi-Drug Resistant Organisms: None Reported Past Surgical History: Section, Heart Catheterization, Tubal Ligation Additional Past Surgical History / Comment(s): ORIF rt ankle/hardware later removed, exploratory lap, PAIN CLINIC PROCEDURE, BILAT CATARACTS REMOVED WITH LENS IMPLANTS, procedure to open a vein in left leg-couldn't confirm which leg, partial amputation rt hand middle finger, "procedure to remove cervical cancer" Past Anesthesia/Blood Transfusion Reactions: No Reported Reaction Past Psychological History: Anxiety, Bipolar, Depression, PTSD Smoking Status: Current every day smoker Past Alcohol Use History: Abuse, Daily, Heavy Past Drug Use History: Marijuana - Past Family History Father Family Medical History: Cancer, Prostate Disorder, Pulmonary Embolus Sister(s) Family Medical History: Cancer Brother(s) Family Medical History: Cancer Additional Family Medical History / Comment(s): colon and bladder General Exam General appearance: appears intoxicated Head exam: Present: atraumatic, normocephalic Eye exam: Present: nystagmus. Absent: scleral icterus, conjunctival injection Pupils: Present: miosis ENT exam: Present: mucous membranes dry Neck exam: Present: normal inspection. Absent: tenderness Respiratory exam: Present: normal lung sounds bilaterally. Absent: respiratory distress, wheezes, rales, rhonchi, stridor, chest wall tenderness, accessory muscle use, decreased breath sounds, prolonged expiratory Cardiovascular Exam: Present: regular rate, normal rhythm, normal heart sounds. Absent: systolic murmur, diastolic murmur, rubs, gallop GI/Abdominal exam: Present: soft. Absent: distended, tenderness, guarding, rebound, rigid, mass Extremities exam: Present: normal inspection, normal capillary refill. Absent: pedal edema, calf tenderness Back exam: Present: normal inspection. Absent: tenderness, CVA tenderness (R), CVA tenderness (L), vertebral tenderness Neurological exam: Present: altered, CN II-XII intact, reflexes normal Expanded Eye Response: (2) open to pain Motor Response: (5) localizes to pain Verbal Response: incomprehensible sounds Donald Total: 9 Skin exam: Present: warm, dry, intact, normal color. Absent: rash Course Vital Signs 04/10/24 04/11/24 04/11/24 22:18 02:00 03:24 Temperature 97.7 F Pulse Rate 70 84 79 Respiratory 12 18 18 Rate Blood Pressure 150/91 97/64 O2 Sat by Pulse 98 96 97 Oximetry 04/11/24 04/11/24 04/11/24 04:29 07:47 08:57 Temperature 98.6 F Pulse Rate 59 L 76 Respiratory 16 17 Rate Blood Pressure 124/75 139/86 O2 Sat by Pulse 94 L 94 L Oximetry 04/11/24 11:25 Temperature Pulse Rate 90 Respiratory 18 Rate Blood Pressure 146/96 O2 Sat by Pulse 96 Oximetry Medical Decision Making - Medical Decision Making Patient is a 58-year-old woman brought to have evaluation for altered mental status. Patient does arouse to tactile stimulus. She is not able to cooperate with the neurologic exam but does move all 4 extremities. As GCS is only 9, patient sent for CT scan. The patient had CT scan of the brain that I interpreted as negative for acute bony injury, negative for acute intracranial hemorrhage or mass effect. The patient had chest x-ray that I interpreted as negative for acute infiltrate, pneumothorax, congestive heart failure. Was pt. sent in by a medical professional or institution (, PA, SALES RESEARCH ANALYST, urgent care, hospital, or shelter...) When possible be specific @ -[No] Did you speak to anyone other than the patient for history (EMS, parent, family, police, friend...)? What history was obtained from this source @ -[EMS gave most of the initial history Did you review nursing and triage notes (agree or disagree)? Why? @ -[I reviewed and agree with nursing and triage notes] Were old charts reviewed (outside hosp., previous admission, EMS record, old EKG, old radiological studies, urgent care reports/EKG's, shelter records)? Report findings @ -[Yes, old charts were reviewed] Differential Diagnosis (chest pain, altered mental status, abdominal pain women, abdominal pain men, vaginal bleeding, weakness, fever, dyspnea, syncope, headache, dizziness, GI bleed, back pain, seizure, CVA, palpatations, mental health, musculoskeletal)? @ -[Differential Altered Mental Status: Hypoglycemia, DKA, hypercapnia, ETOH, overdose, CO poisoning, trauma, myxedema coma, HTN encephalopathy, infection, encephalitis, psychosis, intercranial hemorrhage, hepatic encephalopathy, meningitis, CVA, this is not meant to be an all-inclusive list EKG interpreted by me (3pts min.). @ -[Interpreted as above] X-rays interpreted by me (1pt min.). @ -[I interpreted as above CT interpreted by me (1pt min.). @ -[I interpreted as above U/S interpreted by me (1pt. min.). @ -[None done] What testing was considered but not performed or refused? (CT, X-rays, U/S, labs)? Why? @ -[None] What meds were considered but not given or refused? Why? @ -[None] Did you discuss the management of the patient with other professionals (professionals i.e. , PA, SALES RESEARCH ANALYST, lab, RT, psych nurse, social services analyst, safety and skill based pay manager, teacher, bomb squad officer, case briefer)? Give summary @ -[Was discussed with admitting physician and treatment recommendations are incorporated Was smoking cessation discussed for >3mins.? @ -[No] Was critical care preformed (if so, how long)? @ -[No] Were there social determinants of health that impacted care today? How? (Homelessness, low income, unemployed, alcoholism, drug addiction, transportation, low edu. Level, literacy, decrease access to med. care, longterm, rehab)? @ -[No] Was there de-escalation of care discussed even if they declined (Discuss DNR or withdrawal of care, Hospice)? DNR status @ -[No] What co-morbidities impacted this encounter? (DM, HTN, Smoking, COPD, CAD, Cancer, CVA, ARF, Chemo, Hep., AIDS, mental health diagnosis, sleep apnea, morbid obesity)? @ -[None] Was patient admitted / discharged? Hospital course, mention meds given and route, prescriptions, significant lab abnormalities, going to OR and other pertinent info. @ -[The patient is a 58-year-old woman brought for altered mental status and found to be intoxicated with high alcohol level. The patient is at risk for development of DTs. Therefore patient will be admitted to have further evaluation and treatment. Undiagnosed new problem with uncertain prognosis? @ -[No] Drug Therapy requiring intensive monitoring for toxicity (Heparin, Nitro, Insulin, Cardizem)? @ -[No] Were any procedures done? @ -[No] Diagnosis/symptom? @ -[Acute alcohol intoxication Acute altered mental status Acute, or Chronic, or Acute on Chronic? @ -[Acute Uncomplicated (without systemic symptoms) or Complicated (systemic symptoms)? @ -[Uncomplicated Side effects of treatment? @ -[No] Exacerbation, Progression, or Severe Exacerbation? @ -[No] Poses a threat to life or bodily function? How? (Chest pain, [place], [place], pneumonia, PE, COPD, DKA, ARF, appy, cholecystitis, CVA, Diverticulitis, Homicidal, Suicidal, threat to staff... and all critical care pts) @ -[Yes there is significant risk of morbidity and mortality associated with DTs - Lab Data Result diagrams: 04/10/24 22:24 04/12/24 04:27 Lab Results 04/10/24 04/10/24 04/10/24 Range/Units 22:24 22:24 22:24 WBC 8.0 (3.8-10.6) k/uL RBC 4.79 (3.80-5.40) m/uL Hgb 15.0 (11.4-16.0) gm/dL Hct 45.2 (34.0-46.0) % MCV 94.3 (80.0-100.0) fL MCH 31.2 (25.0-35.0) pg MCHC 33.1 (31.0-37.0) g/dL RDW 15.3 (11.5-15.5) % Plt Count 258 (150-450) k/uL MPV 6.6 Neutrophils % 31 % Lymphocytes % 57 % Monocytes % 8 % Eosinophils % 1 % Basophils % 1 % Neutrophils # 2.5 (1.3-7.7) k/uL Lymphocytes # 4.5 (1.0-4.8) k/uL Monocytes # 0.7 (0-1.0) k/uL Eosinophils # 0.1 (0-0.7) k/uL Basophils # 0.1 (0-0.2) k/uL PT 10.4 (10.0-12.5) sec INR 0.9 (<1.2) APTT 26.0 (22.0-30.0) sec Sodium (137-145) mmol/L Potassium (3.5-5.1) mmol/L Chloride (98-107) mmol/L Carbon Dioxide (22-30) mmol/L Anion Gap mmol/L BUN (7-17) mg/dL Creatinine (0.52-1.04) mg/dL Est GFR (CKD-EPI)AfAm (>60 ml/min/1.73 sqM) Est GFR (CKD-EPI)NonAf (>60 ml/min/1.73 sqM) Glucose (74-99) mg/dL POC Glucose (mg/dL) (70-110) mg/dL POC Glu [employer] ID Calcium (8.4-10.2) mg/dL Total Bilirubin (0.2-1.3) mg/dL AST (14-36) U/L ALT (4-34) U/L Alkaline Phosphatase (38-126) U/L Ammonia (<30) umol/L Troponin I (0.000-0.034) ng/mL Total Protein (6.3-8.2) g/dL Albumin (3.5-5.0) g/dL Urine Color Colorless Urine Appearance Clear (Clear) Urine pH 5.5 (5.0-8.0) Ur Specific [place] 1.002 (1.001-1.035) Urine Protein Negative (Negative) Urine Glucose (UA) Negative (Negative) Urine Ketones Negative (Negative) Urine Blood Negative (Negative) Urine Nitrite Negative (Negative) Urine Bilirubin Negative (Negative) Urine Urobilinogen <2.0 (<2.0) mg/dL Ur Leukocyte Esterase Negative (Negative) Urine Opiates Screen Not Detected (NotDetected) Ur Oxycodone Screen Not Detected (NotDetected) Urine Methadone Screen Not Detected (NotDetected) Ur Barbiturates Screen Not Detected (NotDetected) U Tricyclic Antidepress Not Detected (NotDetected) Ur Phencyclidine Scrn Not Detected (NotDetected) Ur Amphetamines Screen Not Detected (NotDetected) U Methamphetamines Scrn Not Detected (NotDetected) U Benzodiazepines Scrn Not Detected (NotDetected) Urine Cocaine Screen Not Detected (NotDetected) U Marijuana (THC) Screen Detected H (NotDetected) Serum Alcohol mg/dL 04/10/24 04/10/24 04/10/24 Range/Units 22:24 22:24 22:24 WBC (3.8-10.6) k/uL RBC (3.80-5.40) m/uL Hgb (11.4-16.0) gm/dL Hct (34.0-46.0) % MCV (80.0-100.0) fL MCH (25.0-35.0) pg MCHC (31.0-37.0) g/dL RDW (11.5-15.5) % Plt Count (150-450) k/uL MPV Neutrophils % % Lymphocytes % % Monocytes % % Eosinophils % % Basophils % % Neutrophils # (1.3-7.7) k/uL Lymphocytes # (1.0-4.8) k/uL Monocytes # (0-1.0) k/uL Eosinophils # (0-0.7) k/uL Basophils # (0-0.2) k/uL PT (10.0-12.5) sec INR (<1.2) APTT (22.0-30.0) sec Sodium 139 (137-145) mmol/L Potassium 3.9 (3.5-5.1) mmol/L Chloride 105 (98-107) mmol/L Carbon Dioxide 21 L (22-30) mmol/L Anion Gap 13 mmol/L BUN 4 L (7-17) mg/dL Creatinine 0.46 L (0.52-1.04) mg/dL Est GFR (CKD-EPI)AfAm >90 (>60 ml/min/1.73 sqM) Est GFR (CKD-EPI)NonAf >90 (>60 ml/min/1.73 sqM) Glucose 89 (74-99) mg/dL POC Glucose (mg/dL) (70-110) mg/dL POC Glu [employer] ID Calcium 8.9 (8.4-10.2) mg/dL Total Bilirubin 0.3 (0.2-1.3) mg/dL AST 30 (14-36) U/L ALT 12 (4-34) U/L Alkaline Phosphatase 92 (38-126) U/L Ammonia <9 (<30) umol/L Troponin I <0.012 (0.000-0.034) ng/mL Total Protein 7.4 (6.3-8.2) g/dL Albumin 4.7 (3.5-5.0) g/dL Urine Color Urine Appearance (Clear) Urine pH (5.0-8.0) Ur Specific [place] (1.001-1.035) Urine Protein (Negative) Urine Glucose (UA) (Negative) Urine Ketones (Negative) Urine Blood (Negative) Urine Nitrite (Negative) Urine Bilirubin (Negative) Urine Urobilinogen (<2.0) mg/dL Ur Leukocyte Esterase (Negative) Urine Opiates Screen (NotDetected) Ur Oxycodone Screen (NotDetected) Urine Methadone Screen (NotDetected) Ur Barbiturates Screen (NotDetected) U Tricyclic Antidepress (NotDetected) Ur Phencyclidine Scrn (NotDetected) Ur Amphetamines Screen (NotDetected) U Methamphetamines Scrn (NotDetected) U Benzodiazepines Scrn (NotDetected) Urine Cocaine Screen (NotDetected) U Marijuana (THC) Screen (NotDetected) Serum Alcohol 298 H* mg/dL 04/10/24 Range/Units 22:29 WBC (3.8-10.6) k/uL RBC (3.80-5.40) m/uL Hgb (11.4-16.0) gm/dL Hct (34.0-46.0) % MCV (80.0-100.0) fL MCH (25.0-35.0) pg MCHC (31.0-37.0) g/dL RDW (11.5-15.5) % Plt Count (150-450) k/uL MPV Neutrophils % % Lymphocytes % % Monocytes % % Eosinophils % % Basophils % % Neutrophils # (1.3-7.7) k/uL Lymphocytes # (1.0-4.8) k/uL Monocytes # (0-1.0) k/uL Eosinophils # (0-0.7) k/uL Basophils # (0-0.2) k/uL PT (10.0-12.5) sec INR (<1.2) APTT (22.0-30.0) sec Sodium (137-145) mmol/L Potassium (3.5-5.1) mmol/L Chloride (98-107) mmol/L Carbon Dioxide (22-30) mmol/L Anion Gap mmol/L BUN (7-17) mg/dL Creatinine (0.52-1.04) mg/dL Est GFR (CKD-EPI)AfAm (>60 ml/min/1.73 sqM) Est GFR (CKD-EPI)NonAf (>60 ml/min/1.73 sqM) Glucose (74-99) mg/dL POC Glucose (mg/dL) 98 (70-110) mg/dL POC Glu [employer] ID Shea Brown Calcium (8.4-10.2) mg/dL Total Bilirubin (0.2-1.3) mg/dL AST (14-36) U/L ALT (4-34) U/L Alkaline Phosphatase (38-126) U/L Ammonia (<30) umol/L Troponin I (0.000-0.034) ng/mL Total Protein (6.3-8.2) g/dL Albumin (3.5-5.0) g/dL Urine Color Urine Appearance (Clear) Urine pH (5.0-8.0) Ur Specific [place] (1.001-1.035) Urine Protein (Negative) Urine Glucose (UA) (Negative) Urine Ketones (Negative) Urine Blood (Negative) Urine Nitrite (Negative) Urine Bilirubin (Negative) Urine Urobilinogen (<2.0) mg/dL Ur Leukocyte Esterase (Negative) Urine Opiates Screen (NotDetected) Ur Oxycodone Screen (NotDetected) Urine Methadone Screen (NotDetected) Ur Barbiturates Screen (NotDetected) U Tricyclic Antidepress (NotDetected) Ur Phencyclidine Scrn (NotDetected) Ur Amphetamines Screen (NotDetected) U Methamphetamines Scrn (NotDetected) U Benzodiazepines Scrn (NotDetected) Urine Cocaine Screen (NotDetected) U Marijuana (THC) Screen (NotDetected) Serum Alcohol mg/dL - EKG Data -: EKG Interpreted by Me EKG shows normal: sinus rhythm, axis (Indeterminate axis), intervals (Normal), QRS complexes (Normal), ST-T waves (Normal) Rate: normal (Rate 68 bpm) Disposition Clinical Impression: Alcohol intoxication, Altered mental status Disposition: ADMITTED IP TO THIS [facility] Condition: Fair Is patient prescribed a controlled substance at d/c from ED?: No
[2024-04-10 22:32] LABS: Glucose,Whole Blood 98 mg/dL (70-110)
[2024-04-10 22:43] LABS: Basophils # (A) 0.1 k/uL (0-0.2); Basophils % (A) 1 %; Eosinophils # (A) 0.1 k/uL (0-0.7); Eosinophils % (A) 1 %; HCT 45.2 % (34.0-46.0); Lymphocytes # (A) 4.5 k/uL (1.0-4.8); Lymphocytes % (A) 57 %; MCH 31.2 pg (25.0-35.0); MCHC 33.1 g/dL (31.0-37.0); MCV 94.3 fL (80.0-100.0); Mean Platelet Volume 6.6; Monocytes # (A) 0.7 k/uL (0-1.0); Monocytes % (A) 8 %; Neutrophils # (A) 2.5 k/uL (1.3-7.7); Neutrophils % (A) 31 %; Platelet Count 258 k/uL (150-450); RBC 4.79 m/uL (3.80-5.40); RDW 15.3 % (11.5-15.5)
[2024-04-10 22:50] LABS: ALT 12 U/L (4-34); AST 30 U/L (14-36); African American GFR (CKD) >90 (>60 ml/min/1.73 sqM); Albumin 4.7 g/dL (3.5-5.0); Alkaline Phosphatase 92 U/L (38-126); Anion Gap 13 mmol/L; Blood Urea Nitrogen 4 mg/dL (7-17); Calcium 8.9 mg/dL (8.4-10.2); Carbon Dioxide 21 mmol/L (22-30); Chloride 105 mmol/L (98-107); Glucose 89 mg/dL (74-99); Non-African American GFR(CKD) >90 (>60 ml/min/1.73 sqM); Potassium 3.9 mmol/L (3.5-5.1); Sodium 139 mmol/L (137-145); Total Bilirubin 0.3 mg/dL (0.2-1.3); Total Protein 7.4 g/dL (6.3-8.2)
[2024-04-10 22:53] LABS: Alcohol 298 mg/dL; INR 0.9 (<1.2); Prothrombin Time 10.4 sec (10.0-12.5)
[2024-04-10] MEDS: SODIUM CHLORIDE 0.9% 500 ML 500 ML IV ONE (22:59)
[2024-04-10 23:18] LABS: Appearance,Urine Clear (Clear); Bilirubin,Urine Negative (Negative); Blood,Urine Negative (Negative); Color,Urine Colorless; Glucose,Urine (UA) Negative (Negative); Ketones,Urine Negative (Negative); Leukocyte Esterase,Urine Negative (Negative); Nitrite,Urine Negative (Negative); PH, Urine 5.5 (5.0-8.0); Protein,Urine Negative (Negative); Specific Gravity,Urine 1.002 (1.001-1.035); Urobilinogen,Urine <2.0 mg/dL (<2.0)
[2024-04-10 23:44] LABS: Amphetamine Screen,Urine Not Detected (NotDetected); Barbiturate Screen,Urine Not Detected (NotDetected); Benzodiazepines Screen,Urine Not Detected (NotDetected); Cocaine Screen,Urine Not Detected (NotDetected); Methadone Screen, Urine Not Detected (NotDetected); Opiate Screen,Urine Not Detected (NotDetected); Oxycodone Screen, Urine Not Detected (NotDetected); Phencyclidine Screen,Urine Not Detected (NotDetected); Tricyclic Antidepressant,Urine Not Detected (NotDetected); Urn Cannabinoid Scrn Detected (NotDetected)
--- NOTE | 2024-04-10 23:46 | XR ---
EXAM: XR Chest, 1 View CLINICAL HISTORY: ITS.REASON XR Reason: altered mental status TECHNIQUE: Frontal view of the chest. COMPARISON: No relevant prior studies available. FINDINGS: Lungs: Unremarkable. No consolidation. Pleural space: Unremarkable. No pneumothorax. Heart: Unremarkable. No cardiomegaly. Mediastinum: Unremarkable. Normal mediastinal contour. Bones/joints: Unremarkable. No acute fracture. IMPRESSION: No consolidation.
--- NOTE | 2024-04-10 23:46 | CT ---
EXAM: CT Head Without Intravenous Contrast CLINICAL HISTORY: ITS.REASON CT Reason: Altered mental status TECHNIQUE: Axial computed tomography images of the head/brain without intravenous contrast. This CT exam was performed using one or more of the following dose reduction techniques: automated exposure control, adjustment of the mA and/or kV according to patient size, and/or use of iterative reconstruction technique. COMPARISON: No relevant prior studies available. FINDINGS: Brain: The [place] ladd-white matter differentiation is maintained throughout. No acute intracranial hemorrhage. No midline shift or mass effect. Ventricles: The ventricles and sulci are commensurate with age. Bones/joints: Unremarkable. No acute fracture. Soft tissues: Unremarkable. Sinuses: Unremarkable as visualized. No acute sinusitis. Mastoid air cells: Unremarkable as visualized. No mastoid effusion. IMPRESSION: No acute intracranial hemorrhage. No midline shift or mass effect.
[2024-04-11] MEDS ORDERED: NALOXONE 0.4 MG/ML 1 ML VIAL IV PRN (04:51)
[2024-04-11] MEDS ORDERED: LORazepam 2 MG/ML INJ IV PRN ×3 (04:52)
[2024-04-11] MEDS: SODIUM CHLORIDE 0.9% 1,000 ML IV SCH (08:40)
--- NOTE | 2024-04-11 09:26 | P.HPIM ---
History of Present Illness 58-year-old female is admitted for alcohol intoxication patient is lethargic unable to answer much of questions with that she believes she had a seizure cannot get any further information. Patient is on Keppra at home. Patient alcohol levels was 298 on admission. Last drink was yesterday patient says he only drinks 4 beers a day she does not know when she was last sober. Patient is oriented x 3 but does lethargic unable to answer questions REVIEW OF SYSTEMS: All other systems are negative except those mentioned in the HPI PHYSICAL EXAMINATION: GENERAL: The patient is alert and oriented x3, not in any acute distress. Well developed, well nourished. Patient is lethargic HEENT: Pupils are round and equally reacting to light. EOMI. No scleral icterus. No conjunctival pallor. Normocephalic, atraumatic. No pharyngeal erythema. No thyromegaly. CARDIOVASCULAR: S1 and S2 present. No murmurs, rubs, or gallops. PULMONARY: Chest is clear to auscultation, no wheezing or crackles. ABDOMEN: Soft, nontender, nondistended, normoactive bowel sounds. No palpable organomegaly. MUSCULOSKELETAL: No joint swelling or deformity. EXTREMITIES: No cyanosis, clubbing, or pedal edema. NEUROLOGICAL: Gross neurological examination did not reveal any focal deficits. SKIN: No rashes. Assessment and plan -Alcohol intoxication counseling was provided patient is willing to quit again social work will be consulted -Alcohol withdrawal patient will be on Ativan CIWA protocol and thiamine multivitamin supplementation, IV fluids will be continued -seizure history with a breakthrough seizure patient is on Keppra will obtain Keppra levels patient will be started back on Keppra -Anxiety/depression/bipolar disorder patient resumed on home medications for this -Nicotine use and COPD history counseling was provided regarding this DVT prophylaxis: Lovenox Past Medical History Past Medical History: COPD, Liver Disease, Myocardial Infarction ([place]), Seizure Disorder, Vascular Disorder Additional Past Medical History / Comment(s): constpation, last bowel movement 4 days ago, feeling bloated,feeling of fullness, and abdominal pain, feels hungry then over eats then vomits to feel better, LAST SEIZURE - JANUARY 2021, "broken heart syndrome"., elevated liver enzymes, "dislocated disks", hx cervical cancer Last Myocardial Infarction Date:: 2019 History of Any Multi-Drug Resistant Organisms: None Reported Past Surgical History: Section, Heart Catheterization, Tubal Ligation Additional Past Surgical History / Comment(s): ORIF rt ankle/hardware later removed, exploratory lap, PAIN CLINIC PROCEDURE, BILAT CATARACTS REMOVED WITH LENS IMPLANTS, procedure to open a vein in left leg-couldn't confirm which leg, partial amputation rt hand middle finger, "procedure to remove cervical cancer" Past Anesthesia/Blood Transfusion Reactions: No Reported Reaction Past Psychological History: Anxiety, Bipolar, Depression, PTSD Smoking Status: Current every day smoker Past Alcohol Use History: Abuse, Daily, Heavy Past Drug Use History: Marijuana - Past Family History Father Family Medical History: Cancer, Prostate Disorder, Pulmonary Embolus Sister(s) Family Medical History: Cancer Brother(s) Family Medical History: Cancer Additional Family Medical History / Comment(s): colon and bladder Medications and Allergies Home Medications Medication Instructions Recorded Confirmed Type Atorvastatin [Lipitor] 20 mg PO HS 09/06/23 04/11/24 History Mirtazapine [Remeron] 15 mg PO HS 09/06/23 04/11/24 History Albuterol Inhaler [Ventolin Hfa 2 puff INHALATION RT-Q6H PRN 11/18/23 04/11/24 History Inhaler] Thiamine [Vitamin B-1] 100 mg PO DAILY@1200 #30 tab 11/20/23 04/11/24 Rx QUEtiapine [SEROquel] 25 mg PO BID #60 tab 12/20/23 04/11/24 Rx traZODone HCL [Desyrel] 50 mg PO HS #30 tab 12/20/23 04/11/24 Rx levETIRAcetam [Keppra] 500 mg PO BID 02/15/24 04/11/24 History Allergies Allergy/AdvReac Type Severity Reaction Status Date / Time Penicillins Allergy Rash/Hives/Swelling Verified 04/11/24 08:40 all over body NSAIDS (Non-Steroidal AdvReac Unknown upset Verified 04/11/24 08:40 Anti-Inflamma stomach sertraline HCl [From Zoloft] AdvReac Suicidal/Ag Verified 04/11/24 08:40 ression Physical Exam Vitals: Vital Signs Temp Pulse Resp BP Pulse Ox 04/11/24 08:57 98.6 F 04/11/24 07:47 76 17 139/86 94 L 04/11/24 04:29 59 L 16 124/75 94 L 04/11/24 03:24 79 18 97 04/11/24 02:00 84 18 97/64 96 04/10/24 22:18 97.7 F 70 12 150/91 98 Intake and Output 04/10/24 04/11/24 04/11/24 22:59 06:59 14:59 Other: Weight 68.039 kg Results CBC & Chem 7: 04/10/24 22:24 04/10/24 22:24 Labs: Abnormal Lab Results - Last 24 Hours (Table) 04/10/24 04/10/24 Range/Units 22:24 22:24 Carbon Dioxide 21 L (22-30) mmol/L BUN 4 L (7-17) mg/dL Creatinine 0.46 L (0.52-1.04) mg/dL U Marijuana (THC) Screen Detected H (NotDetected) Serum Alcohol 298 H* mg/dL
[2024-04-11] MEDS: levETIRAcetam 500 MG TAB PO SCH (10:27)
[2024-04-11] MEDS: KETOROLAC 15 MG/ML 1 ML VIAL IVP PRN (14:51)
[2024-04-11] MEDS: FAMOTIDINE 20 MG TAB PO SCH (14:51)
[2024-04-11] MEDS: chlordiazePOXIDE 25 MG CAP PO PRN (17:03)
[2024-04-11] MEDS: ALBUTEROL NEBULIZED 2.5 MG/3 ML INHALATION PRN (18:23)
[2024-04-11] MEDS: ATORVASTATIN 20 MG TAB PO SCH (20:49)
[2024-04-11] MEDS: MIRTAZAPINE 15 MG TAB PO SCH (20:49)
[2024-04-11] MEDS: QUEtiapine 25 MG TAB PO SCH (20:49)
[2024-04-12] MEDS: ONDANSETRON 4 MG/2 ML VIAL IVP PRN (01:19)
[2024-04-12 08:28] LABS: Blood Urea Nitrogen 6.4 mg/dL (9.0-27.0); Calcium 8.7 mg/dL (8.7-10.3); Carbon Dioxide 22.1 mmol/L (21.6-31.8); Chloride 110 mmol/L (96-109); Glucose 92 mg/dL (70-110); Potassium 3.5 mmol/L (3.5-5.5); Sodium 143 mmol/L (135-145)
[2024-04-12] MEDS: ENOXAPARIN 40 MG/0.4 ML SYRINGE SQ SCH (08:55)
[2024-04-12] MEDS: THIAMINE 100 MG TAB PO SCH (08:56)
[2024-04-12 11:41] VITALS: BP 107/71; PULSE 80; RESP 17; TEMP 98.3
--- NOTE | 2024-04-15 08:13 | P.DS ---
Providers Date of admission: 04/11/24 04:52 Expected date of discharge: 04/12/24 Attending physician: Mary Mejia Primary care physician: Stated None Hospital Course: Final diagnosis -Alcohol intoxication counseling was provided -Alcohol withdrawal patient will be on Ativan CIWA protocol -seizure history with a breakthrough seizure -Anxiety/depression/bipolar disorder patient resumed on home medications for this -Nicotine use and COPD history counseling was provided regarding this -GI prophylaxis -DVT prophylaxis: Lovenox -Full code Discharge disposition Patient is being discharged in a stable condition with guarded prognosis to home. Patient will follow-up with Dr. Clay Mejia in the outpatient setting upon discharge. Patient was provided with multiple resources regarding establishing a primary care provider. Patient is extremely noncompliant to follow-up and medication use. Patient continues to drink alcohol, smoke cigarettes, use marijuana and reports has no interest in quitting or going to rehab at this time Total time taken is greater than 35 minutes. Hospital course This is a 58-year-old female who was recently admitted with alcohol intoxication with concerns of alcohol withdrawal. Patient maintained on CIWA protocol although not requiring much Ativan. Patient with generalized weakness and also breakthrough seizures reports she had breakthrough seizures because of all the stress she is going through on moving and packing. Patient is extremely noncompliant with care, medical treatment, continued ongoing alcohol and nicotine and THC abuse, and noncompliance with follow-up. Patient reports she is not interested in going to rehab for physical therapy or alcohol rehab and would like to go home. Patient reports to feeling tired other than that does not feel like she is actively withdrawing. Patient will be discharged home. Instructed to follow-up with primary care provider and reestablish as patient has most likely been discharged from multiple practices due to noncompliance and no call no-shows. Currently no reports of chest pain, shortness of breath, or palpitations. Patient is afebrile. No reports of nausea or vomiting and patient is tolerating diet. Patient will be discharged home today. Again high risk for readmissions as patient has had multiple ER visits and hospitalizations regarding continued alcohol abuse and noncompliance. Patient reports she has no interest in going to alcohol rehab or physical therapy rehab at this time. Physical exam: Gen: This is a 58-year-old female who is awake, alert and oriented x 2-3, baseline, elderly appearing, ill-appearing, unkempt HEENT: Head is atraumatic, normocephalic. Pupils equal, round. Sclerae is anicteric. NECK: Supple. No JVD. No lymphadenopathy. No thyromegaly. LUNGS: Diminished breath sounds bilaterally otherwise clear to auscultation. No wheezes, a few scattered rhonchi. No intercostal retractions. HEART: S1, S2 are muffled ABDOMEN: Soft. Thin. Bowel sounds are present. No masses. No tenderness. EXTREMITIES: No pedal edema. No calf tenderness. NEUROLOGICAL: Patient is awake, alert and oriented x 2-3. Cranial nerves 2 through 12 are grossly intact. Diffusely weak Please refer to medication reconciliation sheet for a list of medications. The impression and plan of care has been dictated by Haleigh Vergara, Nurse Practitioner as directed. Dr. Cecelia MD I have performed a history and examination and MDM of this patient, discussed the same with the dictator, and agree with the dictator's assessment and plan as written ,documented as a scribe. Based on total visit time, I have performed more than 50% of the visit. Patient Condition at Discharge: Fair Plan - Discharge Summary Discharge Rx Participant: No New Discharge Prescriptions: New Ondansetron Odt [Zofran Odt] 4 mg PO Q8HR PRN #10 tab PRN Reason: Nausea Continue Mirtazapine [Remeron] 15 mg PO HS Atorvastatin [Lipitor] 20 mg PO HS Thiamine [Vitamin B-1] 100 mg PO DAILY@1200 #30 tab QUEtiapine [SEROquel] 25 mg PO BID #60 tab levETIRAcetam [Keppra] 500 mg PO BID Albuterol Inhaler [Ventolin Hfa Inhaler] 2 puff INHALATION RT-Q6H PRN PRN Reason: Cough traZODone HCL [Desyrel] 50 mg PO HS #30 tab Discharge Medication List Atorvastatin [Lipitor] 20 mg PO HS 09/06/23 [History] Mirtazapine [Remeron] 15 mg PO HS 09/06/23 [History] Albuterol Inhaler [Ventolin Hfa Inhaler] 2 puff INHALATION RT-Q6H PRN 11/18/23 [History] Thiamine [Vitamin B-1] 100 mg PO DAILY@1200 #30 tab 11/20/23 [Rx] QUEtiapine [SEROquel] 25 mg PO BID #60 tab 12/20/23 [Rx] traZODone HCL [Desyrel] 50 mg PO HS #30 tab 12/20/23 [Rx] levETIRAcetam [Keppra] 500 mg PO BID 02/15/24 [History] Ondansetron Odt [Zofran Odt] 4 mg PO Q8HR PRN #10 tab 04/12/24 [Rx] Follow up Appointment(s)/Referral(s): Henny Angel MD [STAFF PHYSICIAN] - 1 Week Alejandro Schneider MD [Medical Doctor] - 1 Week Activity/Diet/Wound Care/Special Instructions: Activity limited until follow-up Follow-up with primary care provider Continue taking medications as prescribed Follow-up with your primary neurologist outpatient Avoid alcohol use and exposure Discharge/Stand Alone Forms: AA Meetings [facility] 24 - [facility], AA Meetings [place], Who Do I Call?, Community Resources, Outpatient Counseling, Inp Substance Abuse Facilities, Area PCPs Discharge Disposition: HOME SELF-CARE
== END 2024-04-12 14:17 | disposition home or self-care (01) ==
LOC: EC 22:17 → 6NMEDSUR 04-11 04:52
PROVIDERS: ADMIT Hospitalist; ATTEND Hospitalist
DX: F10.129 Alcohol abuse with intoxication, unspecified (principal); F10.139 Alcohol abuse with withdrawal, unspecified; J44.9 Chronic obstructive pulmonary disease, unspecified; F31.9 Bipolar disorder, unspecified; F41.9 Anxiety disorder, unspecified; G40.909 Epilepsy, unspecified, not intractable, without status epilepticus; F17.200 Nicotine dependence, unspecified, uncomplicated; I25.2 Old myocardial infarction; Y90.8 Blood alcohol level of 240 mg/100 ml or more; Z79.899 Other long term (current) drug therapy; Z88.0 Allergy status to penicillin; Z88.6 Allergy status to analgesic agent
CPT/HCPCS: 96376 ×2; 96372; 96374; 96375; 99285; 36415; 94640 ×2; 93005; 97166; 80053; 80048; 80177; 82140; 83735; 84484; 85025; 85610; 85730; 81003; 80306; 71045; 70450; G0378 ×2; G0480; J2405; J1650; J1885 ×2; 80320

== ENCOUNTER 2024-04-23 14:58 | Emergency (ER) | payer OTHER ==
[2024-04-23 15:03] VITALS: TEMP 98
[2024-04-23 15:26] LABS: Glucose,Whole Blood 85 mg/dL (70-110)
[2024-04-23] MEDS ORDERED: NALOXONE 0.4 MG/ML 1 ML VIAL IVP STA (15:26)
[2024-04-23] MEDS ORDERED: levETIRAcetam IV 1,000 MG in SODIUM CHLORIDE 0.9% 250 ML IVPB ONE (15:26)
--- NOTE | 2024-04-23 15:26 | ED ---
General Adult HPI - General Chief complaint: Seizure Stated complaint: Seizure Time Seen by Provider: 04/23/24 15:11 Source: EMS Mode of arrival: EMS Limitations: no limitations - History of Present Illness Initial comments: Dictation was produced using [employer] dictation software. please excuse any grammatical, word or spelling errors. Chief Complaint: 58-year-old alcoholic female with history of seizures found down at home History of Present Illness: 58-year-old known alcoholic presents to the emergency department after she was found by the neighbor. Is unclear how long patient was on the ground for. Is a poor historian. Patient unable to provide history of present illness. Patient allegedly had her usual amounts of alcohol intake. She is alcohol dependent. Unable to obtain ROS secondary to mental status - Related Data Home Medications Medication Instructions Recorded Confirmed Atorvastatin [Lipitor] 20 mg PO HS 09/06/23 04/11/24 Mirtazapine [Remeron] 15 mg PO HS 09/06/23 04/11/24 Albuterol Inhaler [Ventolin Hfa 2 puff INHALATION RT-Q6H PRN 11/18/23 04/11/24 Inhaler] levETIRAcetam [Keppra] 500 mg PO BID 02/15/24 04/11/24 Previous Rx's Medication Instructions Recorded Thiamine [Vitamin B-1] 100 mg PO DAILY@1200 #30 tab 11/20/23 QUEtiapine [SEROquel] 25 mg PO BID #60 tab 12/20/23 traZODone HCL [Desyrel] 50 mg PO HS #30 tab 12/20/23 Ondansetron Odt [Zofran Odt] 4 mg PO Q8HR PRN #10 tab 04/12/24 Allergies Allergy/AdvReac Type Severity Reaction Status Date / Time Penicillins Allergy Rash/Hives/Swelling Verified 04/23/24 15:03 all over body NSAIDS (Non-Steroidal AdvReac Unknown upset Verified 04/23/24 15:03 Anti-Inflamma stomach sertraline HCl [From Zoloft] AdvReac Suicidal/Ag Verified 04/23/24 15:03 ression Review of Systems ROS Statement: Those systems with pertinent positive or pertinent negative responses have been documented in the HPI. ROS Other: All systems not noted in ROS Statement are negative. Past Medical History Past Medical History: COPD, Liver Disease, Myocardial Infarction (SD), Seizure Disorder, Vascular Disorder Additional Past Medical History / Comment(s): constpation, last bowel movement 4 days ago, feeling bloated,feeling of fullness, and abdominal pain, feels hungry then over eats then vomits to feel better, LAST SEIZURE - JANUARY 2021, "broken heart syndrome"., elevated liver enzymes, "dislocated disks", hx cervical cancer Last Myocardial Infarction Date:: 2019 History of Any Multi-Drug Resistant Organisms: None Reported Past Surgical History: Section, Heart Catheterization, Tubal Ligation Additional Past Surgical History / Comment(s): ORIF rt ankle/hardware later removed, exploratory lap, PAIN CLINIC PROCEDURE, BILAT CATARACTS REMOVED WITH LENS IMPLANTS, procedure to open a vein in left leg-couldn't confirm which leg, partial amputation rt hand middle finger, "procedure to remove cervical cancer" Past Anesthesia/Blood Transfusion Reactions: No Reported Reaction Past Psychological History: Anxiety, Bipolar, Depression, PTSD Smoking Status: Current every day smoker Past Alcohol Use History: Abuse, Daily, Heavy Past Drug Use History: Marijuana - Past Family History Father Family Medical History: Cancer, Prostate Disorder, Pulmonary Embolus Sister(s) Family Medical History: Cancer Brother(s) Family Medical History: Cancer Additional Family Medical History / Comment(s): colon and bladder General Exam - General Exam Comments Initial Comments: E PHYSICAL EXAM: General Impression: Lethargic, arousable HEENT: Normocephalic atraumatic, extra-ocular movements intact, pupils equal and reactive to light bilaterally, mucous membranes moist. Cardiovascular: Heart regular rate and rhythm Chest: Able to complete full sentences, no retractions, no tachypnea Abdomen: abdomen soft, non-tender, non-distended, no organomegaly Musculoskeletal: Pulses present and equal in all extremities, no peripheral edema Motor: no focal deficits noted Neurological: CN II-XII grossly intact, no focal motor or sensory deficits noted Skin: Intact with no visualized rashes Limitations: no limitations Course Vital Signs 04/23/24 04/23/24 04/23/24 15:00 15:03 16:41 Temperature 98 F Pulse Rate 76 71 65 Respiratory 20 20 20 Rate Blood Pressure 136/88 136/88 157/93 O2 Sat by Pulse 96 98 98 Oximetry Medical Decision Making - Medical Decision Making Was pt. sent in by a medical professional or institution (, PA, GLOBAL POSITION SYSTEM TECHNICIAN, urgent care, hospital, or assisted...) When possible be specific @ -No Did you speak to anyone other than the patient for history (EMS, parent, family, police, friend...)? What history was obtained from this source @ -No Did you review nursing and triage notes (agree or disagree)? Why? @ -I reviewed and agree with nursing and triage notes Were old charts reviewed (outside hosp., previous admission, EMS record, old EKG, old radiological studies, urgent care reports/EKG's, assisted records)? Report findings @ -No old charts were reviewed Differential Diagnosis (chest pain, altered mental status, abdominal pain women, abdominal pain men, vaginal bleeding, musculoskeletal, weakness, fever, dyspnea, syncope, headache, dizziness, GI bleed, back pain, seizure, CVA, palpatations, mental health)? @ -Differential Altered Mental Status: Hypoglycemia, DKA, hypercapnia, ETOH, overdose, CO poisoning, trauma, myxedema coma, HTN encephalopathy, infection, encephalitis, psychosis, intercranial hemorrhage, hepatic encephalopathy, meningitis, CVA, this is not meant to be an all-inclusive list EKG interpreted by me (3pts min.). @ -As above X-rays interpreted by me (1pt min.). @ -Chest x-ray pelvis x-ray shows no acute processes CT interpreted by me (1pt min.). @ -CT scan the head and C-spine shows no acute processes U/S interpreted by me (1pt. min.). @ -None done What testing was considered but not performed or refused? (CT, X-rays, U/S, labs)? Why? @ -None What meds were considered but not given or refused? Why? @ -None Was smoking cessation discussed for >3mins.? @ -No Were there social determinants of health that impacted care today? How? (Homelessness, low income, unemployed, alcoholism, drug addiction, transportation, low edu. Level, literacy, decrease access to med. care, half-way, rehab)? @ -No Was there de-escalation of care discussed even if they declined (Discuss DNR or withdrawal of care, Hospice)? DNR status @ -No What co-morbidities impacted this encounter? (DM, HTN, Smoking, COPD, CAD, Cancer, CVA, ARF, Chemo, Hep., AIDS, mental health diagnosis, sleep apnea, morbid obesity)? @ -Alcoholism Was patient admitted / discharged? Hospital course, mention meds given and route, prescriptions, significant lab abnormalities, going to OR and other pertinent info. @ -58-year-old female presents to the emergency department after being found altered. Patient is a known alcoholic. Vital signs are stable. Patient inebriated at the bedside. Laboratory evaluation obtained. CBC is unremarkable. Hemoglobin stable. Metabolic panel within acceptable limits. No gap acidosis. Alcohol is 227. Imaging studies are negative. Clinical presentation consistent with alcohol intoxication. Patient will be monitored in the emergency department for sobriety and will be reevaluated and discharged. Evaluated at 6:11 PM and appears to be clinically sober. She is ambulatory and tolerating oral intake. Patient of sound mind and judgment. Patient will be discharged. Did you discuss the management of the patient with other professionals (professionals i.e. , PA, GLOBAL POSITION SYSTEM TECHNICIAN, lab, RT, psych nurse, social insurance adviser, trencher driver, teacher, ground nuclear weapons assembly officer, embedded case manager)? Give summary @ -No Was critical care preformed (if so, how long)? @ -No Undiagnosed new problem with uncertain prognosis? @ -No Drug Therapy requiring intensive monitoring for toxicity (Heparin, Nitro, Insulin, Cardizem)? @ -No Were any procedures done? @ -No Diagnosis/symptom? Acute, or Chronic, or Acute on Chronic? Uncomplicated (without systemic symptoms) or Complicated (systemic symptoms)? @ -Alcohol intoxication Side effects of treatment? @ -No Exacerbation, Progression, or Severe Exacerbation? @ -No Poses a threat to life or bodily function? How? (Chest pain, USA, SD, pneumonia, PE, COPD, DKA, ARF, appy, cholecystitis, CVA, Diverticulitis, Homicidal, Suicidal, threat to staff... and all critical care pts) @ -yes - Lab Data Result diagrams: 04/23/24 15:22 04/23/24 15:22 Lab Results 04/23/24 04/23/24 04/23/24 Range/Units 15:22 15:22 15:23 WBC 8.3 (3.8-10.6) k/uL RBC 4.72 (3.80-5.40) m/uL Hgb 14.7 (11.4-16.0) gm/dL Hct 44.8 (34.0-46.0) % MCV 95.0 (80.0-100.0) fL MCH 31.2 (25.0-35.0) pg MCHC 32.9 (31.0-37.0) g/dL RDW 15.6 H (11.5-15.5) % Plt Count 305 (150-450) k/uL MPV 6.9 Neutrophils % 55 % Lymphocytes % 34 % Monocytes % 8 % Eosinophils % 1 % Basophils % 1 % Neutrophils # 4.5 (1.3-7.7) k/uL Lymphocytes # 2.8 (1.0-4.8) k/uL Monocytes # 0.7 (0-1.0) k/uL Eosinophils # 0.1 (0-0.7) k/uL Basophils # 0.1 (0-0.2) k/uL Sodium 140 (137-145) mmol/L Potassium 3.6 (3.5-5.1) mmol/L Chloride 109 H (98-107) mmol/L Carbon Dioxide 21 L (22-30) mmol/L Anion Gap 10 mmol/L BUN 6 L (7-17) mg/dL Creatinine 0.44 L (0.52-1.04) mg/dL Est GFR (CKD-EPI)AfAm >90 (>60 ml/min/1.73 sqM) Est GFR (CKD-EPI)NonAf >90 (>60 ml/min/1.73 sqM) Glucose 85 (74-99) mg/dL POC Glucose (mg/dL) (70-110) mg/dL POC Glu Food Trades Assistants ID Lactic Ac Sepsis Rflx Plasma Lactic Acid Anthony 2.3 H* (0.7-2.0) mmol/L Calcium 9.2 (8.4-10.2) mg/dL Magnesium 1.9 (1.6-2.3) mg/dL Total Bilirubin 0.4 (0.2-1.3) mg/dL AST 22 (14-36) U/L ALT 11 (4-34) U/L Alkaline Phosphatase 86 (38-126) U/L Creatine Kinase 70 (30-135) U/L Total Protein 7.2 (6.3-8.2) g/dL Albumin 4.6 (3.5-5.0) g/dL Serum Alcohol 227 H* mg/dL 04/23/24 04/23/24 Range/Units 15:24 15:57 WBC (3.8-10.6) k/uL RBC (3.80-5.40) m/uL Hgb (11.4-16.0) gm/dL Hct (34.0-46.0) % MCV (80.0-100.0) fL MCH (25.0-35.0) pg MCHC (31.0-37.0) g/dL RDW (11.5-15.5) % Plt Count (150-450) k/uL MPV Neutrophils % % Lymphocytes % % Monocytes % % Eosinophils % % Basophils % % Neutrophils # (1.3-7.7) k/uL Lymphocytes # (1.0-4.8) k/uL Monocytes # (0-1.0) k/uL Eosinophils # (0-0.7) k/uL Basophils # (0-0.2) k/uL Sodium (137-145) mmol/L Potassium (3.5-5.1) mmol/L Chloride (98-107) mmol/L Carbon Dioxide (22-30) mmol/L Anion Gap mmol/L BUN (7-17) mg/dL Creatinine (0.52-1.04) mg/dL Est GFR (CKD-EPI)AfAm (>60 ml/min/1.73 sqM) Est GFR (CKD-EPI)NonAf (>60 ml/min/1.73 sqM) Glucose (74-99) mg/dL POC Glucose (mg/dL) 85 (70-110) mg/dL POC Glu Food Trades Assistants ID Filiberto Portillo Lactic Ac Sepsis Rflx Y Plasma Lactic Acid Anthony (0.7-2.0) mmol/L Calcium (8.4-10.2) mg/dL Magnesium (1.6-2.3) mg/dL Total Bilirubin (0.2-1.3) mg/dL AST (14-36) U/L ALT (4-34) U/L Alkaline Phosphatase (38-126) U/L Creatine Kinase (30-135) U/L Total Protein (6.3-8.2) g/dL Albumin (3.5-5.0) g/dL Serum Alcohol mg/dL Disposition Clinical Impression: Alcohol intoxication Disposition: HOME SELF-CARE Condition: Fair Instructions (If sedation given, give patient instructions): Abuse of Alcohol (ED) Is patient prescribed a controlled substance at d/c from ED?: No Referrals: None,Stated [Primary Care Provider] - 1-2 days Time of Disposition: 16:51
[2024-04-23] MEDS: SODIUM CHLORIDE 0.9% 1,000 ML IV STA (15:34)
[2024-04-23] MEDS: levETIRAcetam IV 500 MG/5 ML VIAL IV STA (15:36)
[2024-04-23 15:42] LABS: Basophils # (A) 0.1 k/uL (0-0.2); Basophils % (A) 1 %; Eosinophils # (A) 0.1 k/uL (0-0.7); Eosinophils % (A) 1 %; HCT 44.8 % (34.0-46.0); HGB 14.7 gm/dL (11.4-16.0); Lymphocytes # (A) 2.8 k/uL (1.0-4.8); Lymphocytes % (A) 34 %; MCH 31.2 pg (25.0-35.0); MCHC 32.9 g/dL (31.0-37.0); Mean Platelet Volume 6.9; Monocytes # (A) 0.7 k/uL (0-1.0); Monocytes % (A) 8 %; Neutrophils # (A) 4.5 k/uL (1.3-7.7); Neutrophils % (A) 55 %; Platelet Count 305 k/uL (150-450); RBC 4.72 m/uL (3.80-5.40); RDW 15.6 % (11.5-15.5); WBC 8.3 k/uL (3.8-10.6)
[2024-04-23 15:53] LABS: ALT 11 U/L (4-34); AST 22 U/L (14-36); African American GFR (CKD) >90 (>60 ml/min/1.73 sqM); Albumin 4.6 g/dL (3.5-5.0); Alkaline Phosphatase 86 U/L (38-126); Anion Gap 10 mmol/L; Blood Urea Nitrogen 6 mg/dL (7-17); Calcium 9.2 mg/dL (8.4-10.2); Carbon Dioxide 21 mmol/L (22-30); Chloride 109 mmol/L (98-107); Glucose 85 mg/dL (74-99); Magnesium 1.9 mg/dL (1.6-2.3); Non-African American GFR(CKD) >90 (>60 ml/min/1.73 sqM); Potassium 3.6 mmol/L (3.5-5.1); Sodium 140 mmol/L (137-145); Total Bilirubin 0.4 mg/dL (0.2-1.3); Total Protein 7.2 g/dL (6.3-8.2)
[2024-04-23 15:58] LABS: Alcohol 227 mg/dL
[2024-04-23 16:05] LABS: Creatine Kinase 70 U/L (30-135)
[2024-04-23] MEDS: HYDROcodone/APAP 5-325MG 1 EACH TAB PO STA (16:07)
--- NOTE | 2024-04-23 16:20 | XR ---
EXAMINATION TYPE: XR pelvis AP view DATE OF EXAM: 04/23/2024 4:03 PM COMPARISON: None CLINICAL INDICATION: Female, 58 years old with history of found down, ams; , pain TECHNIQUE: XR pelvis AP view, examined in a single projection. FINDINGS: There is no evidence of fracture or dislocation. There is no soft tissue abnormality. Pelv ic phleboliths are present. Surgical clips project in the right femoral head. The spine appears intac t. The hips appear intact. No significant degeneration. IMPRESSION: No acute osseous pathology. [facility], , 04/23/2024 4:17 PM
--- NOTE | 2024-04-23 16:22 | XR ---
EXAMINATION TYPE: XR chest 1V portable DATE OF EXAM: 04/23/2024 4:02 PM COMPARISON: Chest radiographs from 04/02/2024 CLINICAL INDICATION: Female, 58 years old with history of found down, ams; [facility] TECHNIQUE: XR chest 1V portable Frontal view of the chest. FINDINGS: Lungs/Pleura: There is no evidence of pleural effusion, focal consolidation, or pneumothorax. Pulmonary vascularity: Unremarkable. Heart/mediastinum: Cardiomediastinal silhouette is unremarkable. Musculoskeletal: No acute osseous pathology. Other findings: None IMPRESSION: No acute cardiopulmonary disease/process. [facility], , 04/23/2024 4:20 PM
--- NOTE | 2024-04-23 16:33 | CT ---
EXAMINATION TYPE: CT brain cspine wo con DATE OF EXAM: 04/23/2024 4:18 PM COMPARISON: 04/02/2024. CLINICAL INDICATION: Female, 58 years old with history of found down, ams; seizure, AMS TECHNIQUE: Brain: Multiple axial CT images of the brain were obtained without IV contrast. Cspine: Axial CT images from the skull base to the inferior aspect of T2 we obtained without intraven ous contrast. Coronal and sagittal reformatted images were also reviewed. . CT DLP: 1270.7 mGycm, Automated exposure control for dose reduction was used. FINDINGS: Brain: Extra-axial spaces: No abnormal extra-axial fluid collections. Ventricular system: Within normal limits Cerebral parenchyma: No acute intraparenchymal hemorrhage or mass effect. The ladd-white junction is well differentiated. Cerebellum: Unremarkable. Mass effect: No evidence of midline shift. Intracranial vasculature: Atherosclerotic calcifications of the intracranial vessels. Soft tissues: Normal. Calvarium/osseous structures: No depressed skull fracture. Paranasal sinuses and mastoid air cells: Mild scattered mucosal thickening and or secretions. Visualized orbits: Orbital contents are intact. Cervical spine: Fracture: None. Osseous structures: Minimal osteophyte formation and facet and uncovertebral joint arthropathy worse at C5-C6 and C7. Vertebral alignment: Within normal limits. Spinal canal/Neural Foramina: No evidence of significant spinal canal narrowing. No evidence for sign ificant neural foraminal stenosis. Neck soft tissues: Prevertebral soft tissues are within normal limits. Other: The airway is patent. Mild paraseptal emphysema changes in the lungs. IMPRESSION: 1. No acute intracranial process. 2. No evidence of cervical spine fracture. 3. Mild multilevel degenerative disc disease. [facility], Workstation: [id number], 04/23/2024 4:31 PM
[2024-04-23 16:42] VITALS: PULSE 65
[2024-04-23] MEDS: ZIPRASIDONE 20 MG VIAL IM STA (18:05)
[2024-04-23 18:18] VITALS: BP 130/68; RESP 16
== END 2024-04-23 18:18 | disposition home or self-care (01) ==
LOC: EC 14:58
DX: F10.129 Alcohol abuse with intoxication, unspecified (principal); F17.200 Nicotine dependence, unspecified, uncomplicated; Z88.0 Allergy status to penicillin; Z88.6 Allergy status to analgesic agent; Y90.7 Blood alcohol level of 200-239 mg/100 ml
CPT/HCPCS: 36415; 93005; 80053; 82550; 83605; 83735; 85025; 72170; 71045; 72125; 70450; 99285; 96374; 96361; G0480; J1953; 80320

== ENCOUNTER 2024-04-24 08:36 | Inpatient (IN) | payer OTHER ==
[2024-04-24] MEDS: MORPHINE SULFATE 4 MG/ML SYRINGE IVP STA (10:07)
[2024-04-24 10:28] LABS: Basophils % (A) 0 %; Eosinophils % (A) 0 %; HCT 44.1 % (34.0-46.0); HGB 14.6 gm/dL (11.4-16.0); Lymphocytes # (A) 1.9 k/uL (1.0-4.8); Lymphocytes % (A) 20 %; MCH 31.5 pg (25.0-35.0); MCHC 33.2 g/dL (31.0-37.0); MCV 94.7 fL (80.0-100.0); Mean Platelet Volume 7.8; Monocytes # (A) 0.7 k/uL (0-1.0); Monocytes % (A) 7 %; Neutrophils % (A) 71 %; Platelet Count 279 k/uL (150-450); RBC 4.65 m/uL (3.80-5.40); RDW 15.5 % (11.5-15.5); WBC 9.8 k/uL (3.8-10.6)
--- NOTE | 2024-04-24 10:30 | XR ---
EXAMINATION TYPE: XR chest 2V DATE OF EXAM: 04/24/2024 10:21 AM COMPARISON: 04/23/2024 CLINICAL INDICATION: Female, 58 years old with history of Chest Pain, TECHNIQUE: XR chest 2V view(s) obtained. FINDINGS: The heart size is normal. The pulmonary vasculature is normal. The lungs are clear. IMPRESSION: 1. No acute pulmonary process. [facility], , 04/24/2024 10:27 AM
[2024-04-24 10:42] LABS: ALT 12 U/L (4-34); African American GFR (CKD) >90 (>60 ml/min/1.73 sqM); Albumin 5.1 g/dL (3.5-5.0); Alcohol <10 mg/dL; Anion Gap 13 mmol/L; Blood Urea Nitrogen 5 mg/dL (7-17); Calcium 9.9 mg/dL (8.4-10.2); Carbon Dioxide 17 mmol/L (22-30); Chloride 108 mmol/L (98-107); Glucose 116 mg/dL (74-99); Lipase 128 U/L (23-300); Non-African American GFR(CKD) >90 (>60 ml/min/1.73 sqM); Sodium 138 mmol/L (137-145); Total Bilirubin 0.8 mg/dL (0.2-1.3)
[2024-04-24 10:56] LABS: AST 30 U/L (14-36); Alkaline Phosphatase 97 U/L (38-126); Magnesium 1.5 mg/dL (1.6-2.3); Potassium 4.6 mmol/L (3.5-5.1)
--- NOTE | 2024-04-24 10:57 | ED ---
Chest Pain HPI - General Chief Complaint: Chest Pain Stated Complaint: chest pain Time Seen by Provider: 04/24/24 08:49 Source: patient, RN/MD Mode of arrival: EMS Limitations: no limitations - History of Present Illness Initial Comments: 58-year-old female with past medical history of alcohol abuse, Takotsubo syndrome who presents emergency department reporting chest pain. Patient states that she started having chest pain. She describes it as a sharp shooting sensation which radiates across to her chest. She does have a history of Tako tsubo syndrome. Denies a history of coronary disease. Has not had any type of cardiac workup in some time. Patient admits to being an alcoholic. Reports that she is supposed to be on Keppra for her seizures however according to her pharmacy list, the patient has not filled any prescriptions in the past several months. Patient denies being under the care of any doctor. Unsure if her seizures are related to alcohol withdrawal. States that she has not had anything to drink today. She has had multiple seizures over the past couple of weeks. She denies any fevers, headache, or neck pain. Does admit to chronic back pain. No nausea or vomiting. No lateralizing weakness or tingling. No other alleviating, precipitating modifying factors - Related Data Home Medications Medication Instructions Recorded Confirmed levETIRAcetam [Keppra] 500 mg PO BID 02/15/24 04/24/24 Allergies Allergy/AdvReac Type Severity Reaction Status Date / Time Penicillins Allergy Rash/Hives/Swelling Verified 04/24/24 10:28 all over body NSAIDS (Non-Steroidal AdvReac Unknown upset Verified 04/24/24 10:28 Anti-Inflamma stomach sertraline HCl [From Zoloft] AdvReac Suicidal/Ag Verified 04/24/24 10:28 ression Review of Systems ROS Statement: Those systems with pertinent positive or pertinent negative responses have been documented in the HPI. ROS Other: All systems not noted in ROS Statement are negative. Past Medical History Past Medical History: COPD, Liver Disease, Myocardial Infarction ([place]), Seizure Disorder, Vascular Disorder Additional Past Medical History / Comment(s): constpation, last bowel movement 4 days ago, feeling bloated,feeling of fullness, and abdominal pain, feels hungry then over eats then vomits to feel better, LAST SEIZURE - JANUARY 2021, "broken heart syndrome"., elevated liver enzymes, "dislocated disks", hx cervical cancer Last Myocardial Infarction Date:: 2019 History of Any Multi-Drug Resistant Organisms: None Reported Past Surgical History: Section, Heart Catheterization, Tubal Ligation Additional Past Surgical History / Comment(s): ORIF rt ankle/hardware later removed, exploratory lap, PAIN CLINIC PROCEDURE, BILAT CATARACTS REMOVED WITH LENS IMPLANTS, procedure to open a vein in left leg-couldn't confirm which leg, partial amputation rt hand middle finger, "procedure to remove cervical cancer" Past Anesthesia/Blood Transfusion Reactions: No Reported Reaction Past Psychological History: Anxiety, Bipolar, Depression, PTSD Smoking Status: Current every day smoker Past Alcohol Use History: Abuse, Daily, Heavy Past Drug Use History: Marijuana - Past Family History Father Family Medical History: Cancer, Prostate Disorder, Pulmonary Embolus Sister(s) Family Medical History: Cancer Brother(s) Family Medical History: Cancer Additional Family Medical History / Comment(s): colon and bladder General Exam Limitations: no limitations General appearance: alert, in no apparent distress Head exam: Present: atraumatic, normocephalic, normal inspection Eye exam: Present: normal appearance, PERRL, EOMI. Absent: scleral icterus, c onjunctival injection, periorbital swelling ENT exam: Present: normal exam, mucous membranes moist Neck exam: Present: normal inspection. Absent: tenderness, meningismus, lymphadenopathy Respiratory exam: Present: normal lung sounds bilaterally. Absent: respiratory distress, wheezes, rales, rhonchi, stridor Cardiovascular Exam: Present: regular rate, normal rhythm, normal heart sounds. Absent: systolic murmur, diastolic murmur, rubs, gallop, clicks GI/Abdominal exam: Present: soft, normal bowel sounds. Absent: distended, tenderness, guarding, rebound, rigid Extremities exam: Present: normal inspection, full ROM, normal capillary refill. Absent: tenderness, pedal edema, joint swelling, calf tenderness Back exam: Present: normal inspection Neurological exam: Present: alert, oriented X3, CN II-XII intact Psychiatric exam: Present: normal affect, normal mood Skin exam: Present: warm, dry, intact, normal color. Absent: rash Course Vital Signs 04/24/24 04/24/24 04/24/24 08:43 08:50 10:10 Temperature 98.2 F Pulse Rate 92 73 Respiratory 32 H 20 Rate Blood Pressure 155/102 164/104 O2 Sat by Pulse 97 95 Oximetry 04/24/24 12:19 Temperature Pulse Rate 84 Respiratory 16 Rate Blood Pressure 163/91 O2 Sat by Pulse 95 Oximetry Chest Pain MDM - MDM Was pt. sent in by a medical professional or institution (, [facility], [facility], urgent care, hospital, or fpc...) When possible be specific @ -[No] Did you speak to anyone other than the patient for history (EMS, parent, family, police, friend...)? What history was obtained from this source @ -[No] Did you review nursing and triage notes (agree or disagree)? Why? @ -[I reviewed and agree with nursing and triage notes] Were old charts reviewed (outside hosp., previous admission, EMS record, old EKG, old radiological studies, urgent care reports/EKG's, fpc records)? Report findings @ -[No old charts were reviewed] Differential Diagnosis (chest pain, altered mental status, abdominal pain women, abdominal pain men, vaginal bleeding, weakness, fever, dyspnea, syncope, headache, dizziness, GI bleed, back pain, seizure, CVA, palpatations, mental health, musculoskeletal)? @ -[not applicable] EKG interpreted by me (3pts min.). @ -Yes and demonstrates sinus rhythm with a rate of 81. IL interval 175. QRS 83. QTc of 407. No acute ST segment elevations or depressions X-rays interpreted by me (1pt min.). @ -[None done] CT interpreted by me (1pt min.). @ -[None done] U/S interpreted by me (1pt. min.). @ -[None done] What testing was considered but not performed or refused? (CT, X-rays, U/S, labs)? Why? @ -[None] What meds were considered but not given or refused? Why? @ -[None] Did you discuss the management of the patient with other professionals (professionals i.e. [facility] Dill, [employer], lab, RT, psych nurse, social insurance specialist, cuff turner machine operator, teacher, account officer, family independence case manager)? Give summary @ -[No] Was smoking cessation discussed for >3mins.? @ -[No] Was critical care preformed (if so, how long)? @ -[No] Were there social determinants of health that impacted care today? How? (Homelessness, low income, unemployed, alcoholism, drug addiction, transportation, low edu. Level, literacy, decrease access to med. care, snf, rehab)? @ -[No] Was there de-escalation of care discussed even if they declined (Discuss DNR or withdrawal of care, Hospice)? DNR status @ -[No] What co-morbidities impacted this encounter? (DM, HTN, Smoking, COPD, CAD, Cancer, CVA, ARF, Chemo, Hep., AIDS, mental health diagnosis, sleep apnea, morbid obesity)? @ -[None] Was patient admitted / discharged? Hospital course, mention meds given and route, prescriptions, significant lab abnormalities, going to OR and other pertinent info. @ -[hospital course] Undiagnosed new problem with uncertain prognosis? @ -[No] Drug Therapy requiring intensive monitoring for toxicity (Heparin, Nitro, Insulin, Cardizem)? @ -[No] Were any procedures done? @ -[No] Diagnosis/symptom? @ -[default] Acute, or Chronic, or Acute on Chronic? @ -[default] Uncomplicated (without systemic symptoms) or Complicated (systemic symptoms)? @ -[default] Side effects of treatment? @ -[No] Exacerbation, Progression, or Severe Exacerbation? @ -[No] Poses a threat to life or bodily function? How? (Chest pain, [place], [place], pneumonia, PE, COPD, DKA, ARF, appy, cholecystitis, CVA, Diverticulitis, Homicidal, Suicidal, threat to staff... and all critical care pts) @ -[No] Disposition Clinical Impression: Alcohol abuse, Atypical chest pain, Hypomagnesemia Disposition: ADMITTED IP TO THIS [facility] Condition: Stable Is patient prescribed a controlled substance at d/c from ED?: No Time of Disposition: 12:35 Decision to Admit Reason: Admit from EC Decision Date: 04/24/24 Decision Time: 12:35
[2024-04-24 11:11] LABS: INR 0.9 (<1.2); Prothrombin Time 10.2 sec (10.0-12.5)
[2024-04-24 11:13] LABS: Partial Thromboplastin Time 21.6 sec (22.0-30.0)
[2024-04-24] MEDS ORDERED: NALOXONE 0.4 MG/ML 1 ML VIAL IV PRN (12:35)
[2024-04-24] MEDS: MAGNESIUM SULFATE-D5W PMX 1 GM in DEXTROSE/WATER 1 100ML.BAG IVPB SCH (12:49)
[2024-04-24] MEDS: ASPIRIN 81 MG PO STA (12:50)
[2024-04-24] MEDS: HYDROcodone/APAP 5-325MG 1 EACH TAB PO PRN (12:50)
[2024-04-24] MEDS ORDERED: LORazepam 2 MG/ML INJ IV PRN (12:51)
--- NOTE | 2024-04-24 14:23 | P.CRDCN ---
History of Present Illness Consult date: 04/24/24 Consult reason: chest pain (History of Takotsubo) History of present illness: This is a 58-year-old female patient previously seen by Dr. Olivas last time in the office in November 2021 with history of Takotsubo cardiomyopathy with normal coronary arteries by cardiac catheterization in 2017, tobacco use, alcohol abuse with DTs, hypertension, anxiety. We have been asked to evaluate the patient for chest pain, history of Takotsubo. Patient complains of chest pain that was sharp and shooting sensation rating across her chest. She has also had multiple seizures over the past couple of weeks. Patient admits to drinking daily at least 3 beers on her last intake yesterday. She has had no cardiac stent placement. No chest pain at this time. Blood pressure 163/91, heart rate 84, pulse ox 95% on room air. Patient has been started on the CIWA protocol. She is requesting pain medications at this time which can be addressed by attending. Patient is seen today in the emergency center waiting for a bed on the observation unit. EKG: Sinus rhythm with no acute ST changes. Chest x-ray: No acute process Laboratory studies: CBC within normal limits. Sodium 138, potassium 4.6, creatinine 0.42. Troponin negative x 1. Serum alcohol less than 10. Will Home cardiac medications: None Echocardiogram performed 08/2023 revealed normal EF. Review Of Systems: At the time of my exam: CONSTITUTIONAL: Denies fever or chills. HEENT: Denies blurred vision, vision changes, or eye pain. Denies hemoptysis CARDIOVASCULAR: Denies chest pain. Denies orthopnea. Denies PND. Denies palpitations RESPIRATORY: Denies shortness of breath. GASTROINTESTINAL: Denies abdominal pain. Denies nausea or vomiting. HEMATOLOGIC: Denies bleeding disorders. GENITOURINARY: Denies any blood in urine. SKIN: Denies puritis. Denies rash. Physical examination: Gen: This is a thin cachectic 58-year-old female in no acute distress VS: reviewed HEENT: Head is atraumatic, normocephalic. Pupils equal, round. Sclerae is anicteric. NECK: Supple. No JVD. LUNGS: Clear to auscultation. No wheezes or rhonchi. No intercostal retractions. HEART: Regular rate and rhythm. No murmur. ABDOMEN: Soft No tenderness. EXTREMITIES: No pedal edema. No calf tenderness. NEUROLOGICAL: Patient is awake, alert and oriented x3. Assessment: Atypical chest pain, rule out ACS Hypertension History of Takotsubo cardiomyopathy in 2017 with normal coronary arteries on heart catheterization Tobacco use and dependence Alcohol abuse Noncompliance Plan: Start patient on Lopressor 25 mg twice daily Start patient on losartan 25 mg daily Obtain repeat troponins Obtain 2-D echocardiogram and Doppler study to assess cardiac structure and function Further recommendations to follow based upon clinical course Thank you kindly for this consultation. Nurse practitioner note has been reviewed, I agree with documented findings and plan of care. Patient was seen and examined. Past Medical History Past Medical History: COPD, Liver Disease, Myocardial Infarction ([place]), Seizure Disorder, Vascular Disorder Additional Past Medical History / Comment(s): constpation, last bowel movement 4 days ago, feeling bloated,feeling of fullness, and abdominal pain, feels hungry then over eats then vomits to feel better, LAST SEIZURE - JANUARY 2021, "broken heart syndrome"., elevated liver enzymes, "dislocated disks", hx cervical cancer Last Myocardial Infarction Date:: 2019 History of Any Multi-Drug Resistant Organisms: None Reported Past Surgical History: Section, Heart Catheterization, Tubal Ligation Additional Past Surgical History / Comment(s): ORIF rt ankle/hardware later removed, exploratory lap, PAIN CLINIC PROCEDURE, BILAT CATARACTS REMOVED WITH LENS IMPLANTS, procedure to open a vein in left leg-couldn't confirm which leg, partial amputation rt hand middle finger, "procedure to remove cervical cancer" Past Anesthesia/Blood Transfusion Reactions: No Reported Reaction Past Psychological History: Anxiety, Bipolar, Depression, PTSD Smoking Status: Current every day smoker Past Alcohol Use History: Abuse, Daily, Heavy Past Drug Use History: Marijuana - Past Family History Father Family Medical History: Cancer, Prostate Disorder, Pulmonary Embolus Sister(s) Family Medical History: Cancer Brother(s) Family Medical History: Cancer Additional Family Medical History / Comment(s): colon and bladder Medications and Allergies Home Medications Medication Instructions Recorded Confirmed Type levETIRAcetam [Keppra] 500 mg PO BID 02/15/24 04/24/24 History Allergies Allergy/AdvReac Type Severity Reaction Status Date / Time Penicillins Allergy Rash/Hives/Swelling Verified 04/24/24 10:28 all over body NSAIDS (Non-Steroidal AdvReac Unknown upset Verified 04/24/24 10:28 Anti-Inflamma stomach sertraline HCl [From Zoloft] AdvReac Suicidal/Ag Verified 04/24/24 10:28 ression Physical Exam Vitals: Vital Signs Temp Pulse Resp BP Pulse Ox 04/24/24 12:19 84 16 163/91 95 04/24/24 10:10 73 20 164/104 95 04/24/24 08:50 155/102 04/24/24 08:43 98.2 F 92 32 H 97 Intake and Output 04/23/24 04/24/24 04/24/24 22:59 06:59 14:59 Other: Weight 49.895 kg Results 04/24/24 10:10 04/24/24 10:10 Cardiac Enzymes 04/24/24 04/24/24 Range/Units 10:10 10:10 AST 30 (14-36) U/L Troponin I <0.012 (0.000-0.034) ng/mL Coagulation 04/24/24 Range/Units 10:10 PT 10.2 (10.0-12.5) sec APTT 21.6 L (22.0-30.0) sec CBC 04/24/24 Range/Units 10:10 WBC 9.8 (3.8-10.6) k/uL RBC 4.65 (3.80-5.40) m/uL Hgb 14.6 (11.4-16.0) gm/dL Hct 44.1 (34.0-46.0) % Plt Count 279 (150-450) k/uL Comprehensive Metabolic Panel 04/24/24 Range/Units 10:10 Sodium 138 (137-145) mmol/L Potassium 4.6 (3.5-5.1) mmol/L Chloride 108 H (98-107) mmol/L Carbon Dioxide 17 L (22-30) mmol/L BUN 5 L (7-17) mg/dL Creatinine 0.42 L (0.52-1.04) mg/dL Glucose 116 H (74-99) mg/dL Calcium 9.9 (8.4-10.2) mg/dL AST 30 (14-36) U/L ALT 12 (4-34) U/L Alkaline Phosphatase 97 (38-126) U/L Total Protein 8.0 (6.3-8.2) g/dL Albumin 5.1 H (3.5-5.0) g/dL Current Medications Generic Name Dose Route Start Last Admin Trade Name Freq PRN Reason Stop Dose Admin Hydrocodone Bitart/Acetaminophen 1 each 04/24/24 12:35 04/24/24 12:50 Hydrocodone/Apap 5-325mg 1 Each Tab PO 1 each Q4HR PRN Administration Moderate Pain (Scale 4 to 6) Magnesium Sulfate/Dextrose 1 100 mls @ 100 mls/hr 04/24/24 12:45 04/24/24 12:49 gm/ IV Solution IVPB 04/24/24 14:44 100 mls/hr Q1H EDGARDO Administration Lorazepam 1 mg 04/24/24 12:51 Lorazepam 2 Mg/Ml Inj IV Q1HR PRN CIWA 10 to 15 Lorazepam 2 mg 04/24/24 12:51 Lorazepam 2 Mg/Ml Inj IV 04/26/24 12:52 Q10M PRN CIWA 16 or higher Lorazepam 1 mg 04/24/24 12:51 Lorazepam 2 Mg/Ml Inj IV Q2HR PRN CIWA 8 or 9 Naloxone HCl 0.2 mg 04/24/24 12:35 Naloxone 0.4 Mg/Ml 1 Ml Vial IV Q2M PRN Opioid Reversal Intake and Output 04/23/24 04/24/24 04/24/24 22:59 06:59 14:59 Other: Weight 49.895 kg Patient Weight 04/25/24 06:59 Weight 49.895 kg 04/24/24 10:10 04/24/24 10:10
[2024-04-24] MEDS: METOPROLOL TARTRATE 25 MG TAB PO SCH (14:30)
[2024-04-24] MEDS: LOSARTAN 25 MG TAB PO SCH (14:33)
[2024-04-24] MEDS ORDERED: HYDROmorphone 0.5 MG/0.5 ML SYRINGE IVP PRN (15:43)
[2024-04-24] MEDS: LORazepam 2 MG/ML INJ IV PRN ×2 (16:19→22:14)
[2024-04-24] MEDS: THIAMINE 100 MG TAB PO SCH (18:19)
[2024-04-24] MEDS: levETIRAcetam 500 MG TAB PO SCH (22:14)
[2024-04-24] MEDS: HEPARIN SODIUM,PORCINE 5,000 UNIT/ML 1 ML VIAL SQ SCH (22:14)
--- NOTE | 2024-04-24 22:15 | HP ---
HISTORY AND PHYSICAL CHIEF COMPLAINT: Chest pain and back pain. HISTORY OF PRESENT ILLNESS: This is a 58-year-old woman with a past medical history of EtOH, Takotsubo syndrome, was complaining of chest pain which was felt in the anterior part of the chest. The patient is also complaining of low back pain. The patient is apparently scheduled for surgery. The initial troponins are negative. Cardiology evaluation in progress. The EKG showed no acute changes also. There is no history of any fever, rigors, or chills. PAST MEDICAL HISTORY: 1. History of EtOH. 2. History of takotsubo syndrome. 3. Hypertension. Rest of the history and rest of the chart is also reviewed. HOME MEDICATIONS: Reviewed include Keppra. ALLERGIES: Reviewed include penicillin. FAMILY HISTORY: History of pulmonary embolism and prostate disorder. SOCIAL HISTORY: History of alcohol, smoking. REVIEW OF SYSTEMS: A 14-point review of systems is negative except as mentioned earlier. PHYSICAL EXAMINATION: VITAL SIGNS: Pulse 73, blood pressure 160/104, respirations 20. HEENT: Conjunctivae normal. NECK: No JVD. CARDIOVASCULAR: S1, S2. RESPIRATIONS: Breath sounds diminished at the bases. A few scattered rhonchi. ABDOMEN: Soft. NERVOUS SYSTEM: Nonfocal. SKIN: No ulcer, rash, or bleeding. JOINTS: No active deforming arthropathy. LABORATORY DATA: Reviewed. ASSESSMENT: 1. Chest pain, possible unstable angina. 2. History of takotsubo syndrome. 3. History of low back pain and severe degenerative joint disease. 4. History of EtOH, rule out withdrawals. 5. Hypomagnesemia. 6. History of myocardial infarction. 7. History of liver disease. 8. Chronic obstructive pulmonary disease. 9. Multiple complex medical issues including anxiety, bipolar, depression. RECOMMENDATIONS AND DISCUSSION: This is a 58-year-old woman, who presented with multiple complex medical issues, we will monitor the patient closely. Continue the current management and continue symptomatic treatment. Resume the home medications and CIWA protocol. Cardiology consultation. Pain management. Guarded prognosis because of multiple complex medical issues and further recommendations to follow. See orders for further details. MMODL / IJN: [id number] /
[2024-04-25] MEDS: HALOPERIDOL LACTATE 5 MG/ML 1 ML VIAL IM STA (00:23)
--- NOTE | 2024-04-25 00:52 | P.MHFACE ---
Face to Face Restrain/Seclus - Evaluation Patient's Immediate Situation: Endangers self safety, Violent behavior Patient's Reaction to the Intervention: Anxious, Suspicious, Resistive to care Patient's Medical & Behavioral Condition: Awake, Alert, Confused, Anxious, Agit ated Need to Continue or Terminate Restraint or Seclusion: Continue Face to Face Eval of Restraint Date: 04/25/24 Face to Face Eval of Restraint Time: 00:45
[2024-04-25] MEDS: LOSARTAN 50 MG TAB PO SCH (08:57)
[2024-04-25] MEDS: PANTOPRAZOLE 40 MG TABLET PO SCH (08:57)
[2024-04-25 09:06] LABS: Blood Urea Nitrogen 5.2 mg/dL (9.0-27.0); Calcium 9.1 mg/dL (8.7-10.3); Carbon Dioxide 19.6 mmol/L (21.6-31.8); Chloride 105 mmol/L (96-109); Glucose 125 mg/dL (70-110); Potassium 3.8 mmol/L (3.5-5.5); Sodium 138 mmol/L (135-145)
[2024-04-25 09:26] LABS: Basophils # (A) 0.04 X 10*3/uL (0.00-0.10); Basophils % (A) 0.5 %; Eosinophils # (A) 0.05 X 10*3/uL (0.04-0.35); Eosinophils % (A) 0.6 %; HCT 38.3 % (37.2-46.3); Lymphocytes # (A) 1.84 X 10*3/uL (0.90-5.00); Lymphocytes % (A) 22.5 %; MCH 31.3 pg (27.0-32.0); MCHC 33.9 g/dL (32.0-37.0); MCV 92.1 FL (80.0-97.0); Mean Platelet Volume 9.8 FL (9.5-12.2); Monocytes % (A) 9.8 %; NRBC Per 100 WBC 0 X 10*3/uL (0.00-0.01); Neutrophils # (A) 5.35 X 10*3/uL (1.80-7.70); Neutrophils % (A) 65.6 %; Platelet Count 289 X 10*3/uL (140-440); RBC 4.16 X 10*6/uL (4.10-5.20); RDW 16.6 % (11.5-14.5); WBC 8.16 X 10*3/uL (4.50-10.00)
--- NOTE | 2024-04-25 10:54 | P.PN ---
Subjective Progress Note Date: 04/25/24 Consult reason: chest pain (History of Takotsubo) History of present illness: This is a 58-year-old female patient previously seen by Dr. Olivas last time in the office in November 2021 with history of Takotsubo cardiomyopathy with normal coronary arteries by cardiac catheterization in 2016, tobacco use, alcohol abuse with DTs, hypertension, anxiety. We have been asked to evaluate the patient for chest pain, history of Takotsubo. Patient complains of chest pain that was sharp and shooting sensation rating across her chest. She has also had multiple seizures over the past couple of weeks. Patient admits to drinking daily at least 3 beers on her last intake yesterday. She has had no cardiac stent placement. No chest pain at this time. Blood pressure 163/91, heart rate 84, pulse ox 95% on room air. Patient has been started on the CIWA protocol. She is requesting pain medications at this time which can be addressed by attending. Patient is seen today in the emergency center waiting for a bed on the observation unit. EKG: Sinus rhythm with no acute ST changes. Chest x-ray: No acute process Laboratory studies: CBC within normal limits. Sodium 138, potassium 4.6, creatinine 0.42. Troponin negative x 1. Serum alcohol less than 10. Will Home cardiac medications: None Echocardiogram performed 08/2023 revealed normal EF. 04/25/2024 Patient is seen and examined. Patient apparently became agitated during the night and required restraints for 2 hours. She now has a sitter at the bedside. Blood pressure elevated. Patient denies having any chest pain. No shortness of breath. Blood pressure 151/71, heart rate 62, pulse ox 98% on room air. Repeat blood work reveals hemoglobin 13. Sodium 138, potassium 3.8, BUN 5.2 creatinine 0.5. Troponin have been negative x 3. Echocardiogram pending. Physical examination: Gen: This is a thin cachectic 58-year-old female in no acute distress VS: reviewed HEENT: Head is atraumatic, normocephalic. Pupils equal, round. Sclerae is anicteric. NECK: Supple. No JVD. LUNGS: Clear to auscultation. No wheezes or rhonchi. No intercostal retractions. HEART: Regular rate and rhythm. No murmur. ABDOMEN: Soft No tenderness. EXTREMITIES: No pedal edema. No calf tenderness. NEUROLOGICAL: Patient is awake, alert and oriented x3. Assessment: Atypical chest pain, rule out ACS Hypertension History of Takotsubo cardiomyopathy in 2017 with normal coronary arteries on heart catheterization Tobacco use and dependence Alcohol abuse Noncompliance Plan: Continue patient on Lopressor 25 mg twice daily Continue patient on losartan and increase to 50 mg daily If echocardiogram is unremarkable, patient is cleared for discharge. Nurse practitioner note has been reviewed, I agree with documented findings and plan of care. Patient was seen and examined. Objective - Vital Signs Vital signs: Vital Signs Temp 97.7 F 04/25/24 06:55 Pulse 62 04/25/24 06:55 Resp 17 04/25/24 06:55 BP 151/71 04/25/24 06:55 Pulse Ox 98 04/25/24 06:55 FiO2 Intake & Output 04/24/24 04/25/24 04/25/24 18:59 06:59 18:59 Weight 49.895 kg Other: # Voids 2 - Labs CBC & Chem 7: 04/25/24 03:58 04/25/24 03:58 Labs: Abnormal Lab Results - Last 24 Hours (Table) 04/24/24 04/24/24 Range/Units 10:10 10:10 APTT 21.6 L (22.0-30.0) sec Chloride 108 H (98-107) mmol/L Carbon Dioxide 17 L (22-30) mmol/L BUN 5 L (7-17) mg/dL Creatinine 0.42 L (0.52-1.04) mg/dL Glucose 116 H (74-99) mg/dL Magnesium 1.5 L (1.6-2.3) mg/dL Albumin 5.1 H (3.5-5.0) g/dL
--- NOTE | 2024-04-25 12:33 | CA ---
Transthoracic Echo Report Name: Zuri Santo Age: 58 Gender: F : 1965 Exam Date: 04/25/2024 09:23 Exam Location: [facility] Ht (in): 65 Wt (lb): 110 Ordering Physician: Suzie Warner Attending/Referring Phys: [id number], Alana [employer] Operator Margarita Figueroa, SOILA Procedure CPT: Indications: LVF Cardiac Hx: Technical Quality: Good Contrast 1: Total Dose (mL): Contrast 2: Total Dose (mL): MEASUREMENTS (Male / Female) Normal Values 2D ECHO LV Diastolic Diameter PLAX 4.5 cm 4.2 - 5.9 / 3.9 - 5.3 cm LV Systolic Diameter PLAX 2.9 cm IVS Diastolic Thickness 1.1 cm 0.6 - 1.0 / 0.6 - 0.9 cm LVPW Diastolic Thickness 1.0 cm 0.6 - 1.0 / 0.6 - 0.9 cm LV Relative Wall Thickness 0.5 RV Internal Dim ED PLAX 2.9 cm LA Systolic Diameter LX 3.2 cm 3.0 - 4.0 / 2.7 - 3.8 cm LV Diastolic Volume MOD BP 66.0 cm??? 67 - 155 / 56 - 104 cm??? LV Systolic Volume MOD BP 17.5 cm??? 22 - 58 / 19 - 49 cm??? LV Ejection Fraction MOD BP 73.4 % >= 55 % LV Cardiac Index MOD BP 1995.6 cm???/min???m??? LV Diastolic Volume MOD 4C 56.8 cm??? LV Systolic Volume MOD 4C 16.7 cm??? LV Ejection Fraction MOD 4C 70.6 % LV Cardiac Index MOD 4C 1652.8 cm???/min???m??? LV Diastolic Length 4C 7.9 cm LV Systolic Length 4C 6.8 cm LV Diastolic Volume MOD 2C 76.1 cm??? LV Systolic Volume MOD 2C 18.7 cm??? LV Ejection Fraction MOD 2C 75.4 % LV Cardiac Index MOD 2C 2365.2 cm???/min???m??? LV Diastolic Length 2C 8.1 cm LV Systolic Length 2C 6.9 cm LA Volume 38.4 cm??? 18 - 58 / 22 - 52 cm??? LA Volume Index 25.6 cm???/m??? 16 - 28 cm???/m??? M-MODE Aortic Root Diameter MM 3.3 cm AV Cusp Separation MM 2.0 cm DOPPLER AV Peak Velocity 152.5 cm/s AV Peak Gradient 9.3 mmHg MV Area PHT 4.9 cm??? Mitral E Point Velocity 91.6 cm/s Mitral A Point Velocity 71.2 cm/s Mitral E to A Ratio 1.3 MV Deceleration Time 156.1 ms FINDINGS Left Ventricle Left ventricular ejection fraction is estimated at 60-65 %. Mildly increased septal wall thickness. Left ventricular cavity size normal. Normal left ventricular wall motion. Right Ventricle Normal right ventricular size and function. Unable to estimate the right ventricular systolic pressure. Right Atrium Normal right atrial size. No right atrial thrombus or mass seen. Left Atrium Normal left atrial size. No left atrial thrombus or mass present. Mitral Valve Structurally normal mitral valve. No mitral stenosis, regurgitation or prolapse. Aortic Valve Trileaflet aortic valve. No aortic valve stenosis or regurgitation. Tricuspid Valve Structurally normal tricuspid valve. No tricuspid stenosis, regurgitation or prolapse. Pulmonic Valve Structurally normal pulmonic valve. No pulmonic regurgitation. Pericardium No pericardial or pleural effusion. Aorta Normal size aortic root and proximal ascending aorta. CONCLUSIONS Normal biventricular systolic function Overall normal intracardiac valves No pericardial effusion Previewed by: Dr. Yandel Falk MD (Electronically Signed) Final Date: 25 April 2024 12:32
[2024-04-25] MEDS: FOLIC ACID 1 MG TAB PO SCH (13:36)
[2024-04-25] MEDS: MULTIVITAMINS, THERA 1 EACH TAB PO SCH (13:36)
[2024-04-25] MEDS ORDERED: LORazepam 1 MG TAB PO PRN (13:38)
[2024-04-25] MEDS: chlordiazePOXIDE 25 MG CAP PO SCH (13:42)
[2024-04-25 13:44] VITALS: BMI 18.3
[2024-04-26] MEDS: TEMAZEPAM 15 MG CAP PO PRN (00:50)
[2024-04-26 00:55] LABS: Amphetamine Screen,Urine Not Detected (NotDetected); Barbiturate Screen,Urine Not Detected (NotDetected); Benzodiazepines Screen,Urine Detected (NotDetected); Cocaine Screen,Urine Not Detected (NotDetected); Methadone Screen, Urine Not Detected (NotDetected); Opiate Screen,Urine Detected (NotDetected); Oxycodone Screen, Urine Not Detected (NotDetected); Phencyclidine Screen,Urine Not Detected (NotDetected); Tricyclic Antidepressant,Urine Not Detected (NotDetected); Urn Cannabinoid Scrn Detected (NotDetected)
--- NOTE | 2024-04-26 03:56 | PN ---
PROGRESS NOTE DATE OF SERVICE: 04/25/2024 SUBJECTIVE: This is a 58-year-old woman, who was admitted with chest pain and back pain, also had features of full-blown DTs at this time. The patient is to restrain. There is no history of any fever, rigors, or chills. The patient is unable to give a coherent history at this time. Multiple consultants are following the patient closely. A 2D echo with Doppler showed normal systolic function in the valves. PAST MEDICAL HISTORY: Reviewed. REVIEW OF SYSTEMS: Could not be taken. CURRENT MEDICATIONS: Reviewed. CIMI protocol. PHYSICAL EXAMINATION: VITAL SIGNS: Pulse is 62, blood pressure 151/70, respirations 17. HEENT: Conjunctivae normal. NECK: No JVD. CARDIOVASCULAR: S1, S2. RESPIRATIONS: Breath sounds diminished at the bases. ABDOMEN: Soft. LEGS: No edema. NERVOUS SYSTEM: Could not be examined completely. LABORATORY DATA: Reviewed. ASSESSMENT: 1. Acute delirium tremens. 2. Alcohol withdrawal. 3. Chest pain, possible unstable angina. 4. History of Takotsubo syndrome. 5. Low back pain, severe degenerative joint disease. 6. Hypomagnesemia. 7. History of myocardial infarction. 8. History of chronic liver disease. 9. Chronic obstructive pulmonary disease. 10.Multiple complex medical issues. RECOMMENDATIONS: Recommend to continue current management and continue symptomatic treatment. Otherwise, continue with CIWA protocol. Closely follow with Cardiology. Guarded prognosis because of multiple medical problems. This patient will require inpatient admission because of the above-mentioned multiple complex medical issues. MMODL / IJN: [id number] /
[2024-04-26 08:32] VITALS: BP 156/91; PULSE 62; RESP 16; TEMP 97.4
[2024-04-26 08:38] LABS: Basophils # (A) 0.03 X 10*3/uL (0.00-0.10); Basophils % (A) 0.4 %; Eosinophils # (A) 0.07 X 10*3/uL (0.04-0.35); HCT 38.8 % (37.2-46.3); HGB 13.1 g/dL (12.0-15.0); Lymphocytes # (A) 2.42 X 10*3/uL (0.90-5.00); MCH 31.2 pg (27.0-32.0); MCHC 33.8 g/dL (32.0-37.0); MCV 92.4 FL (80.0-97.0); Mean Platelet Volume 9.8 FL (9.5-12.2); Monocytes % (A) 12.7 %; NRBC Per 100 WBC 0 X 10*3/uL (0.00-0.01); Neutrophils # (A) 3.66 X 10*3/uL (1.80-7.70); Neutrophils % (A) 51.5 %; Platelet Count 318 X 10*3/uL (140-440); RDW 16.5 % (11.5-14.5); WBC 7.11 X 10*3/uL (4.50-10.00)
[2024-04-26 08:47] LABS: Blood Urea Nitrogen 10.5 mg/dL (9.0-27.0); Calcium 9.1 mg/dL (8.7-10.3); Carbon Dioxide 22.1 mmol/L (21.6-31.8); Chloride 106 mmol/L (96-109); Glucose 98 mg/dL (70-110); Potassium 4.2 mmol/L (3.5-5.5); Sodium 139 mmol/L (135-145)
--- NOTE | 2024-04-29 12:53 | P.DS ---
Providers Date of admission: 04/24/24 12:42 Expected date of discharge: 04/26/24 Attending physician: Mary Mejia Consults: 04/24/24 12:35 Consult Physician Urgent Consulting Provider: [facility] Consult Reason/Comments: acute chest pain, hx Takotsubo's Do you want consulting provider notified?: Yes Primary care physician: Stated None Hospital Course: Final diagnosis Acute delirium tremens with alcohol withdrawal Chest pain, possible unstable angina, ACS ruled out History of Takotsubo syndrome Low back pain, with severe degenerative joint disease Hypomagnesemia, replaced History of myocardial infarction History of chronic liver disease Chronic obstructive pulmonary disease no exacerbation Continued ongoing alcohol abuse THC use Nicotine dependence GI prophylaxis DVT prophylaxis Full code Discharge disposition Patient is being discharged in a stable condition with guarded prognosis to home. Patient will follow-up with in the outpatient setting upon discharge. Patient is to continue with medications including Keppra and outpatient follow-up with neurology as well as cardiology and her primary care provider as scheduled. Total time taken is greater than 35 minutes. Hospital course This is a 58-year-old female who was recently admitted with chest pain acute delirium tremens with alcohol withdrawal being closely monitored. Patient evaluated cardiology ACS ruled out recommending outpatient follow-up. Patient maintained on CIWA protocol along with Librium taper and monitored overnight showing improvements. Patient is awake and alert and oriented would like to go home. Currently no reports of chest pain, shortness of breath, or palpitations. Patient is afebrile. No reports of nausea or vomiting and patient is tolerating diet. Patient will be discharged home today. Guarded prognosis and high risk for readmissions given patient's extreme noncompliance, continued alcohol and THC use and noncompliance to follow-up. Physical exam: Gen: This is a 58-year-old female who is awake, alert and oriented x 3, well- developed, thin built, appears much older than stated age HEENT: Head is atraumatic, normocephalic. Pupils equal, round. Sclerae is anicteric. NECK: Supple. No JVD. No lymphadenopathy. No thyromegaly. LUNGS: Minich breath sounds bilaterally otherwise clear to auscultation. No wheezes or rhonchi. No intercostal retractions. HEART: Regular rate and rhythm. No murmur. ABDOMEN: Soft. Thin, bowel sounds are present. No masses. No tenderness. EXTREMITIES: No pedal edema. No calf tenderness. NEUROLOGICAL: Patient is awake, alert and oriented x3. Cranial nerves 2 through 12 are grossly intact. Please refer to medication reconciliation sheet for a list of medications. The impression and plan of care has been dictated by Haleigh Vergara, Nurse Practitioner as directed. Dr. Roberto MD I have performed a history and examination and MDM of this patient, discussed the same with the dictator, and agree with the dictator's assessment and plan as written ,documented as a scribe. Based on total visit time, I have performed more than 50% of the visit. Patient Condition at Discharge: Fair Plan - Discharge Summary New Discharge Prescriptions: Continue levETIRAcetam [Keppra] 500 mg PO BID Discharge Medication List levETIRAcetam [Keppra] 500 mg PO BID 02/15/24 [History] Follow up Appointment(s)/Referral(s): None,Stated [Primary Care Provider] - 1-2 days Discharge/Stand Alone Forms: AA Meetings [facility] - [facility], AA Meetings [facility], Who Do I Call?, Community Resources, Outpatient Counseling, Inp Substance Abuse Facilities, Area PCPs Discharge Disposition: HOME SELF-CARE
== END 2024-04-26 13:14 | disposition home or self-care (01) | DRG 775 ==
LOC: EC 08:36 → 6NMEDSUR 12:41 → OBSVTOIN 12:42 → 6NMEDSUR 14:12
PROVIDERS: ADMIT Hospitalist; ATTEND Hospitalist
DX: F10.231 Alcohol dependence with withdrawal delirium (principal); E83.42 Hypomagnesemia; F17.200 Nicotine dependence, unspecified, uncomplicated; F31.9 Bipolar disorder, unspecified; I51.81 Takotsubo syndrome; K76.9 Liver disease, unspecified; F41.9 Anxiety disorder, unspecified; R45.1 Restlessness and agitation; F43.10 Post-traumatic stress disorder, unspecified; G40.909 Epilepsy, unspecified, not intractable, without status epilepticus; G89.29 Other chronic pain; I10 Essential (primary) hypertension; I25.110 Atherosclerotic heart disease of native coronary artery with unstable angina pectoris; I25.2 Old myocardial infarction; J44.9 Chronic obstructive pulmonary disease, unspecified; M19.90 Unspecified osteoarthritis, unspecified site; Z79.899 Other long term (current) drug therapy; Z85.41 Personal history of malignant neoplasm of cervix uteri; Z91.199 Patient's noncompliance with other medical treatment and regimen due to unspecified reason; Z78.1 Physical restraint status; Z88.6 Allergy status to analgesic agent; Z88.0 Allergy status to penicillin
CPT/HCPCS: 36415; 71046; 80048; 80053; 80306; 80320; 83690; 83735; 84484; 85025; 85610; 85730; 93005; 93306; 96365; 96366; 96372; 96375; 96376; 99285

== ENCOUNTER 2024-04-27 19:05 | Emergency (ER) | payer OTHER ==
--- NOTE | 2024-04-27 19:59 | ED ---
General Adult HPI - General Chief complaint: Alcohol Stated complaint: ETOH Time Seen by Provider: 04/27/24 19:23 Source: EMS Mode of arrival: EMS - History of Present Illness Initial comments: Dictation was produced using [employer] dictation software. please excuse any grammatical, word or spelling errors. Chief Complaint: 58-year-old female presents to the ER for alcohol intoxication History of Present Illness: Patient is 58-year-old female well-known to emergency department for alcohol intoxication. Patient is brought in by EMS. Is unclear who called ambulance. Apparently she was minimally responsive on scene. Patient is an unreliable historian at this time due to inebriation Unable to obtain ROS secondary to mental status - Related Data Home Medications Medication Instructions Recorded Confirmed levETIRAcetam [Keppra] 500 mg PO BID 02/15/24 04/24/24 Allergies Allergy/AdvReac Type Severity Reaction Status Date / Time Penicillins Allergy Rash/Hives/Swelling Verified 04/24/24 10:28 all over body NSAIDS (Non-Steroidal AdvReac Unknown upset Verified 04/24/24 10:28 Anti-Inflamma stomach sertraline HCl [From Zoloft] AdvReac Suicidal/Ag Verified 04/24/24 10:28 ression Review of Systems ROS Statement: Those systems with pertinent positive or pertinent negative responses have been documented in the HPI. ROS Other: All systems not noted in ROS Statement are negative. Past Medical History Past Medical History: COPD, Liver Disease, Myocardial Infarction (MS), Seizure Disorder, Vascular Disorder Additional Past Medical History / Comment(s): constpation, last bowel movement 4 days ago, feeling bloated,feeling of fullness, and abdominal pain, feels hungry then over eats then vomits to feel better, LAST SEIZURE - JANUARY 2021, "broken heart syndrome"., elevated liver enzymes, "dislocated disks", hx cervical cancer Last Myocardial Infarction Date:: 2019 History of Any Multi-Drug Resistant Organisms: None Reported Past Surgical History: Section, Heart Catheterization, Tubal Ligation Additional Past Surgical History / Comment(s): ORIF rt ankle/hardware later removed, exploratory lap, PAIN CLINIC PROCEDURE, BILAT CATARACTS REMOVED WITH LENS IMPLANTS, procedure to open a vein in left leg-couldn't confirm which leg, partial amputation rt hand middle finger, "procedure to remove cervical cancer" Past Anesthesia/Blood Transfusion Reactions: No Reported Reaction Past Psychological History: Anxiety, Bipolar, Depression, PTSD Smoking Status: Current every day smoker Past Alcohol Use History: Abuse, Daily, Heavy Past Drug Use History: Marijuana - Past Family History Father Family Medical History: Cancer, Prostate Disorder, Pulmonary Embolus Sister(s) Family Medical History: Cancer Brother(s) Family Medical History: Cancer Additional Family Medical History / Comment(s): colon and bladder General Exam - General Exam Comments Initial Comments: PHYSICAL EXAM: General Impression: Inebriated, smells of EtOH HEENT: Normocephalic atraumatic, extra-ocular movements intact, pupils equal and reactive to light bilaterally, mucous membranes moist. Cardiovascular: Heart regular rate and rhythm Chest: Able to complete full sentences, no retractions, no tachypnea Abdomen: abdomen soft, non-tender, non-distended, no organomegaly Musculoskeletal: Pulses present and equal in all extremities, no peripheral edema Motor: no focal deficits noted Neurological: CN II-XII grossly intact, no focal motor or sensory deficits noted Skin: Intact with no visualized rashes Psych: Normal affect and mood EKG Findings - EKG Comments: EKG Findings:: My EKG interpretation: Ventricular rate 76, sinus rhythm,. 170, QRS 94, QTc 415. No CO prolongation, no QTC prolongation, no ST or T-wave changes noted. Overall, this EKG is unremarkable Medical Decision Making - Medical Decision Making Was pt. sent in by a medical professional or institution (, PA, HAT BRUSHER MACHINE, urgent care, hospital, or half-way...) When possible be specific @ -No Did you speak to anyone other than the patient for history (EMS, parent, family, police, friend...)? What history was obtained from this source @ -No Did you review nursing and triage notes (agree or disagree)? Why? @ -I reviewed and agree with nursing and triage notes Were old charts reviewed (outside hosp., previous admission, EMS record, old EKG, old radiological studies, urgent care reports/EKG's, half-way records)? Report findings @ -Previous charting reviewed showing that patient had been in the emergency department multiple occasions for alcohol intoxication Differential Diagnosis (chest pain, altered mental status, abdominal pain women, abdominal pain men, vaginal bleeding, musculoskeletal, weakness, fever, dyspnea, syncope, headache, dizziness, GI bleed, back pain, seizure, CVA, palpatations, mental health)? @ -Differential Altered Mental Status: Hypoglycemia, DKA, hypercapnia, ETOH, overdose, CO poisoning, trauma, myxedema coma, HTN encephalopathy, infection, encephalitis, psychosis, intercranial hemorrhage, hepatic encephalopathy, meningitis, CVA, this is not meant to be an all-inclusive list EKG interpreted by me (3pts min.). @ -None done X-rays interpreted by me (1pt min.). @ -None done CT interpreted by me (1pt min.). @ -None done U/S interpreted by me (1pt. min.). @ -None done What testing was considered but not performed or refused? (CT, X-rays, U/S, labs)? Why? @ -None What meds were considered but not given or refused? Why? @ -None Was smoking cessation discussed for >3mins.? @ -No Were there social determinants of health that impacted care today? How? (Homelessness, low income, unemployed, alcoholism, drug addiction, transportation, low edu. Level, literacy, decrease access to med. care, care home, rehab)? @ -EtOH dependence Was there de-escalation of care discussed even if they declined (Discuss DNR or withdrawal of care, Hospice)? DNR status @ -No What co-morbidities impacted this encounter? (DM, HTN, Smoking, COPD, CAD, Cancer, CVA, ARF, Chemo, Hep., AIDS, mental health diagnosis, sleep apnea, morbid obesity)? @ -None Was patient admitted / discharged? Hospital course, mention meds given and route, prescriptions, significant lab abnormalities, going to OR and other pertinent info. @ -58-year-old female presents yet again to the emergency department for acute alcohol intoxication. Vital signs stable. Evaluation obtained. CBC metabolic panel within acceptable limits. Serum alcohol is 202. Patient will be observed emergency department pending sobriety. She can be discharged when she sobered up. Reevaluated at 9:00 PM found to be clinically sober. She is tolerating oral intake drinking water and ambulatory with no complications. Patient will be discharged. Did you discuss the management of the patient with other professionals (professionals i.e. , PA, HAT BRUSHER MACHINE, lab, RT, psych nurse, social media content manager, security system installer, teacher, vice squad police officer, shelter case manager)? Give summary @ -No Was critical care preformed (if so, how long)? @ -No Undiagnosed new problem with uncertain prognosis? @ -No Drug Therapy requiring intensive monitoring for toxicity (Heparin, Nitro, Insulin, Cardizem)? @ -No Were any procedures done? @ -No Diagnosis/symptom? Acute, or Chronic, or Acute on Chronic? Uncomplicated (without systemic symptoms) or Complicated (systemic symptoms)? @ -Acute alcohol intoxication Side effects of treatment? @ -No Exacerbation, Progression, or Severe Exacerbation? @ -No Poses a threat to life or bodily function? How? (Chest pain, USA, MS, pneumonia, PE, COPD, DKA, ARF, appy, cholecystitis, CVA, Diverticulitis, Homicidal, Suicidal, threat to staff... and all critical care pts) @ -No - Lab Data Result diagrams: 04/27/24 19:38 04/27/24 19:38 Lab Results 04/27/24 04/27/24 Range/Units 19:38 19:38 WBC 8.1 (3.8-10.6) k/uL RBC 4.43 (3.80-5.40) m/uL Hgb 14.1 (11.4-16.0) gm/dL Hct 42.8 (34.0-46.0) % MCV 96.7 (80.0-100.0) fL MCH 31.9 (25.0-35.0) pg MCHC 33.0 (31.0-37.0) g/dL RDW 15.9 H (11.5-15.5) % Plt Count 310 (150-450) k/uL MPV 6.9 Neutrophils % 52 % Lymphocytes % 35 % Monocytes % 9 % Eosinophils % 1 % Basophils % 1 % Neutrophils # 4.2 (1.3-7.7) k/uL Lymphocytes # 2.9 (1.0-4.8) k/uL Monocytes # 0.7 (0-1.0) k/uL Eosinophils # 0.1 (0-0.7) k/uL Basophils # 0.0 (0-0.2) k/uL Sodium 142 (137-145) mmol/L Potassium 3.7 (3.5-5.1) mmol/L Chloride 110 H (98-107) mmol/L Carbon Dioxide 22 (22-30) mmol/L Anion Gap 10 mmol/L BUN 7 (7-17) mg/dL Creatinine 0.51 L (0.52-1.04) mg/dL Est GFR (CKD-EPI)AfAm >90 (>60 ml/min/1.73 sqM) Est GFR (CKD-EPI)NonAf >90 (>60 ml/min/1.73 sqM) Glucose 82 (74-99) mg/dL Calcium 9.2 (8.4-10.2) mg/dL Magnesium 1.8 (1.6-2.3) mg/dL Serum Alcohol 202 H* mg/dL Disposition Clinical Impression: Alcohol intoxication Disposition: HOME SELF-CARE Condition: Fair Instructions (If sedation given, give patient instructions): Alcohol Intoxication (ED) Is patient prescribed a controlled substance at d/c from ED?: No Referrals: None,Stated [Primary Care Provider] - 1-2 days Time of Disposition: 20:32
[2024-04-27 20:03] LABS: Basophils % (A) 1 %; Eosinophils # (A) 0.1 k/uL (0-0.7); Eosinophils % (A) 1 %; HCT 42.8 % (34.0-46.0); HGB 14.1 gm/dL (11.4-16.0); Lymphocytes # (A) 2.9 k/uL (1.0-4.8); Lymphocytes % (A) 35 %; MCH 31.9 pg (25.0-35.0); MCV 96.7 fL (80.0-100.0); Mean Platelet Volume 6.9; Monocytes # (A) 0.7 k/uL (0-1.0); Monocytes % (A) 9 %; Neutrophils # (A) 4.2 k/uL (1.3-7.7); Neutrophils % (A) 52 %; Platelet Count 310 k/uL (150-450); RBC 4.43 m/uL (3.80-5.40); RDW 15.9 % (11.5-15.5); WBC 8.1 k/uL (3.8-10.6)
[2024-04-27 20:15] LABS: African American GFR (CKD) >90 (>60 ml/min/1.73 sqM); Anion Gap 10 mmol/L; Blood Urea Nitrogen 7 mg/dL (7-17); Calcium 9.2 mg/dL (8.4-10.2); Carbon Dioxide 22 mmol/L (22-30); Chloride 110 mmol/L (98-107); Glucose 82 mg/dL (74-99); Magnesium 1.8 mg/dL (1.6-2.3); Non-African American GFR(CKD) >90 (>60 ml/min/1.73 sqM); Potassium 3.7 mmol/L (3.5-5.1); Sodium 142 mmol/L (137-145)
[2024-04-27 20:25] LABS: Alcohol 202 mg/dL
[2024-04-27 20:56] VITALS: BP 101/68; PULSE 83; RESP 18
== END 2024-04-27 21:08 | disposition home or self-care (01) ==
LOC: EC 19:05
DX: F10.129 Alcohol abuse with intoxication, unspecified (principal); F17.200 Nicotine dependence, unspecified, uncomplicated; Z88.0 Allergy status to penicillin; Z88.6 Allergy status to analgesic agent; Z88.8 Allergy status to other drugs, medicaments and biological substances; Y90.7 Blood alcohol level of 200-239 mg/100 ml
CPT/HCPCS: 36415; 93005; 80048; 83735; 85025; 99284; G0480; 80320

== ENCOUNTER 2024-05-06 11:57 | Emergency (ER) | payer OTHER ==
--- NOTE | 2024-05-06 12:54 | XR ---
EXAMINATION TYPE: XR chest 2V DATE OF EXAM: 05/06/2024 CLINICAL HISTORY: Chest pain TECHNIQUE: Frontal and lateral views of the chest are obtained. COMPARISON: 04/24/2024 FINDINGS: There is no focal air space opacity, pleural effusion, or pneumothorax seen. The cardiac silhouette size is within normal limits. The osseous structures are intact. IMPRESSION: No acute cardiopulmonary process. [facility], , 05/06/2024 12:51 PM
[2024-05-06] MEDS: KETOROLAC 15 MG/ML 1 ML VIAL IVP STA (13:08)
[2024-05-06] MEDS: SODIUM CHLORIDE 0.9% 1,000 ML IV STA (13:08)
[2024-05-06 13:22] LABS: Basophils % (A) 0 %; Eosinophils # (A) 0.1 k/uL (0-0.7); Eosinophils % (A) 2 %; HCT 45.3 % (34.0-46.0); Lymphocytes # (A) 2.2 k/uL (1.0-4.8); Lymphocytes % (A) 33 %; MCH 31.5 pg (25.0-35.0); MCHC 33.2 g/dL (31.0-37.0); Monocytes # (A) 0.6 k/uL (0-1.0); Monocytes % (A) 9 %; Neutrophils # (A) 3.7 k/uL (1.3-7.7); Neutrophils % (A) 54 %; Platelet Count 307 k/uL (150-450); RBC 4.77 m/uL (3.80-5.40); RDW 15.7 % (11.5-15.5); WBC 6.8 k/uL (3.8-10.6)
[2024-05-06 13:29] LABS: INR 0.9 (<1.2); Partial Thromboplastin Time 22.4 sec (22.0-30.0); Prothrombin Time 10.1 sec (10.0-12.5)
[2024-05-06 13:35] LABS: ALT 14 U/L (4-34); African American GFR (CKD) >90 (>60 ml/min/1.73 sqM); Albumin 4.9 g/dL (3.5-5.0); Anion Gap 10 mmol/L; Blood Urea Nitrogen 7 mg/dL (7-17); Calcium 9.8 mg/dL (8.4-10.2); Carbon Dioxide 17 mmol/L (22-30); Chloride 113 mmol/L (98-107); Glucose 90 mg/dL (74-99); Lipase 143 U/L (23-300); Non-African American GFR(CKD) >90 (>60 ml/min/1.73 sqM); Sodium 140 mmol/L (137-145); Total Bilirubin 0.6 mg/dL (0.2-1.3); Total Protein 8.1 g/dL (6.3-8.2)
[2024-05-06 14:12] LABS: AST 30 U/L (14-36); Alkaline Phosphatase 97 U/L (38-126); Magnesium 1.9 mg/dL (1.6-2.3); Potassium 4.7 mmol/L (3.5-5.1)
[2024-05-06 14:13] LABS: Alcohol 93 mg/dL
--- NOTE | 2024-05-06 15:22 | ED ---
Chest Pain HPI - General Chief Complaint: Chest Pain Stated Complaint: Chest Pain Time Seen by Provider: 05/06/24 12:03 Source: patient, EMS, RN notes reviewed, old records reviewed Mode of arrival: EMS Limitations: no limitations - History of Present Illness Initial Comments: 58-year-old female presents emerged from with multiple complaints. Patient is known alcoholic states she has been in the hospital recently. Patient states that she has been having intermittent chest discomfort for several days in which she was recently hospitalized for also. Patient states that restarted and states that has been constant for at least an hour. Patient denies any fever chills patient does have a cough. - Related Data Home Medications Medication Instructions Recorded Confirmed levETIRAcetam [Keppra] 500 mg PO BID 02/15/24 04/24/24 Allergies Allergy/AdvReac Type Severity Reaction Status Date / Time Penicillins Allergy Rash/Hives/Swelling Verified 05/06/24 12:08 all over body NSAIDS (Non-Steroidal AdvReac Unknown upset Verified 05/06/24 12:08 Anti-Inflamma stomach sertraline HCl [From Zoloft] AdvReac Suicidal/Ag Verified 05/06/24 12:08 ression Review of Systems ROS Statement: Those systems with pertinent positive or pertinent negative responses have been documented in the HPI. ROS Other: All systems not noted in ROS Statement are negative. EKG Findings - EKG Comments: EKG Findings:: EKG at 12: 09 sinus rhythm with a rate of 73 AK 152 QRS 90 QT/QTc 403/429 - EKG Results: EKG: interpreted by DEDRICK Past Medical History Past Medical History: COPD, Liver Disease, Myocardial Infarction ([place]), Seizure Disorder, Vascular Disorder Additional Past Medical History / Comment(s): constpation, last bowel movement 4 days ago, feeling bloated,feeling of fullness, and abdominal pain, feels hungry then over eats then vomits to feel better, LAST SEIZURE - JANUARY 2021, "broken heart syndrome"., elevated liver enzymes, "dislocated disks", hx cervical cancer Last Myocardial Infarction Date:: 2019 History of Any Multi-Drug Resistant Organisms: None Reported Past Surgical History: Section, Heart Catheterization, Tubal Ligation Additional Past Surgical History / Comment(s): ORIF rt ankle/hardware later removed, exploratory lap, PAIN CLINIC PROCEDURE, BILAT CATARACTS REMOVED WITH LENS IMPLANTS, procedure to open a vein in left leg-couldn't confirm which leg, partial amputation rt hand middle finger, "procedure to remove cervical cancer" Past Anesthesia/Blood Transfusion Reactions: No Reported Reaction Past Psychological History: Anxiety, Bipolar, Depression, PTSD Smoking Status: Current every day smoker Past Alcohol Use History: Abuse, Daily, Heavy Past Drug Use History: Marijuana - Past Family History Father Family Medical History: Cancer, Prostate Disorder, Pulmonary Embolus Sister(s) Family Medical History: Cancer Brother(s) Family Medical History: Cancer Additional Family Medical History / Comment(s): colon and bladder General Exam Limitations: no limitations General appearance: alert, in no apparent distress Head exam: Present: atraumatic, normocephalic, normal inspection Eye exam: Present: normal appearance, PERRL, EOMI. Absent: scleral icterus, conjunctival injection, periorbital swelling ENT exam: Present: normal exam, normal oropharynx, mucous membranes moist Neck exam: Present: normal inspection, full ROM. Absent: tenderness, meningismus, lymphadenopathy Respiratory exam: Present: normal lung sounds bilaterally. Absent: respiratory distress, wheezes, rales, rhonchi, stridor Cardiovascular Exam: Present: regular rate, normal rhythm, normal heart sounds. Absent: systolic murmur, diastolic murmur, rubs, gallop, clicks GI/Abdominal exam: Present: soft, normal bowel sounds. Absent: distended, tenderness, guarding, rebound, rigid Course Vital Signs 05/06/24 12:00 Temperature 97.7 F Pulse Rate 78 Respiratory 22 Rate Blood Pressure 180/101 O2 Sat by Pulse 97 Oximetry Chest Pain MDM - MDM Was pt. sent in by a medical professional or institution (, PA, SOLUTIONS ANALYST, urgent care, hospital, or long-term...) When possible be specific @ -No Did you speak to anyone other than the patient for history (EMS, parent, family, police, friend...)? What history was obtained from this source @ -No Did you review nursing and triage notes (agree or disagree)? Why? @ -I reviewed and agree with nursing and triage notes Were old charts reviewed (outside hosp., previous admission, EMS record, old EKG, old radiological studies, urgent care reports/EKG's, long-term records)? Report findings @ -No old charts were reviewed Differential Diagnosis (chest pain, altered mental status, abdominal pain women, abdominal pain men, vaginal bleeding, weakness, fever, dyspnea, syncope, headache, dizziness, GI bleed, back pain, seizure, CVA, palpatations, mental health, musculoskeletal)? @ -Differential Chest Pain: Stable Angina, Unstable Angina, STEMI, NSTEMI Aortic Dissection, Pneumothorax, Musculoskeletal, Esophageal Spasm GERD, Cholecystitis, Pancreatitis, Zoster, this is not meant to be an all-inclusive list. EKG interpreted by me (3pts min.). @ -As above X-rays interpreted by me (1pt min.). @ -Chest x-ray shows no acute cardiopulmonary process CT interpreted by me (1pt min.). @ -None done U/S interpreted by me (1pt. min.). @ -None done What testing was considered but not performed or refused? (CT, X-rays, U/S, labs)? Why? @ -None What meds were considered but not given or refused? Why? @ -None Did you discuss the management of the patient with other professionals (professionals i.e. , PA, SOLUTIONS ANALYST, lab, RT, psych nurse, manager social, snake charmer, teacher, youth corrections officer, casework specialist)? Give summary @ -No Was smoking cessation discussed for >3mins.? @ -No Was critical care preformed (if so, how long)? @ -No Were there social determinants of health that impacted care today? How? (Homelessness, low income, unemployed, alcoholism, drug addiction, transportation, low edu. Level, literacy, decrease access to med. care, intermediate, rehab)? @ -No Was there de-escalation of care discussed even if they declined (Discuss DNR or withdrawal of care, Hospice)? DNR status @ -No What co-morbidities impacted this encounter? (DM, HTN, Smoking, COPD, CAD, Cancer, CVA, ARF, Chemo, Hep., AIDS, mental health diagnosis, sleep apnea, morbid obesity)? @ -None Was patient admitted / discharged? Hospital course, mention meds given and route, prescriptions, significant lab abnormalities, going to OR and other pertinent info. @ -Discharged patient presented for atypical chest pain, alcohol use. Patient states she is asymptomatic patient's workup including labs EKG and chest x-ray unchanged. Patient has had multiple recent hospitalization but given respecters patient was offered admission patient declines patient discharged. Undiagnosed new problem with uncertain prognosis? @ -No Drug Therapy requiring intensive monitoring for toxicity (Heparin, Nitro, Insulin, Cardizem)? @ -No Were any procedures done? @ -No Diagnosis/symptom? @ -Atypical chest pain Acute, or Chronic, or Acute on Chronic? @ -acute Uncomplicated (without systemic symptoms) or Complicated (systemic symptoms)? @ -complicated Side effects of treatment? @ -No Exacerbation, Progression, or Severe Exacerbation? @ -No Poses a threat to life or bodily function? How? (Chest pain, [place], [place], pneumonia, PE, COPD, DKA, ARF, appy, cholecystitis, CVA, Diverticulitis, Homicidal, Suicidal, threat to staff... and all critical care pts) @ -No Disposition Clinical Impression: Alcohol intoxication, Atypical chest pain Disposition: HOME SELF-CARE Condition: Stable Instructions (If sedation given, give patient instructions): Chest Pain (ED) Additional Instructions: Please return to the Emergency Department if symptoms worsen or any other concerns. Is patient prescribed a controlled substance at d/c from ED?: No Referrals: None,Stated [Primary Care Provider] - 1-2 days Time of Disposition: 15:21
[2024-05-06 15:30] VITALS: BP 138/78; PULSE 76; RESP 18; TEMP 98.3
== END 2024-05-06 15:38 | disposition home or self-care (01) ==
LOC: EC 11:57
DX: F10.129 Alcohol abuse with intoxication, unspecified (principal); R07.89 Other chest pain; F17.200 Nicotine dependence, unspecified, uncomplicated; Z88.8 Allergy status to other drugs, medicaments and biological substances; Z88.6 Allergy status to analgesic agent; Z88.0 Allergy status to penicillin; Y90.4 Blood alcohol level of 80-99 mg/100 ml
CPT/HCPCS: 99285; 96374; 96361; 36415; 80053; 83690; 83735; 84484; 85025; 85610; 85730; 71046; G0480; J1885; 80320

== ENCOUNTER 2024-05-11 03:35 | Emergency (ER) | payer OTHER ==
[2024-05-11] MEDS: ALBUTEROL NEBULIZED 2.5 MG/3 ML INHALATION STA (03:44)
[2024-05-11 04:08] LABS: Basophils # (A) 0.1 k/uL (0-0.2); Basophils % (A) 1 %; Eosinophils # (A) 0.2 k/uL (0-0.7); Eosinophils % (A) 2 %; HCT 44.4 % (34.0-46.0); Lymphocytes # (A) 3.5 k/uL (1.0-4.8); Lymphocytes % (A) 42 %; MCH 32.7 pg (25.0-35.0); MCHC 33.8 g/dL (31.0-37.0); MCV 96.8 fL (80.0-100.0); Mean Platelet Volume 7.1; Monocytes # (A) 0.6 k/uL (0-1.0); Monocytes % (A) 7 %; Neutrophils # (A) 3.7 k/uL (1.3-7.7); Neutrophils % (A) 45 %; Platelet Count 330 k/uL (150-450); RBC 4.59 m/uL (3.80-5.40); WBC 8.2 k/uL (3.8-10.6)
[2024-05-11 04:18] LABS: ALT 15 U/L (4-34); AST 40 U/L (14-36); African American GFR (CKD) >90 (>60 ml/min/1.73 sqM); Albumin 5.1 g/dL (3.5-5.0); Alkaline Phosphatase 83 U/L (38-126); Anion Gap 12 mmol/L; Blood Urea Nitrogen 5 mg/dL (7-17); Carbon Dioxide 20 mmol/L (22-30); Chloride 110 mmol/L (98-107); Glucose 100 mg/dL (74-99); Non-African American GFR(CKD) >90 (>60 ml/min/1.73 sqM); Sodium 142 mmol/L (137-145); Total Bilirubin 0.9 mg/dL (0.2-1.3); Total Protein 8.5 g/dL (6.3-8.2)
[2024-05-11 04:19] LABS: INR 0.9 (<1.2); Partial Thromboplastin Time 24.6 sec (22.0-30.0); Prothrombin Time 10.4 sec (10.0-12.5)
[2024-05-11 04:26] LABS: NT-Pro-B-Type Natriuretic Pept <20 pg/mL
--- NOTE | 2024-05-11 04:34 | XR ---
EXAM: XR Chest, 2 Views CLINICAL HISTORY: ITS.REASON XR Reason: difficulty breathing TECHNIQUE: Frontal and lateral views of the chest. COMPARISON: May 06, 2024 FINDINGS: Lungs: Unremarkable. No consolidation. Pleural space: Unremarkable. No pneumothorax. Heart: Unremarkable. No cardiomegaly. Mediastinum: Unremarkable. Normal mediastinal contour. Bones/joints: Unremarkable. No acute fracture. IMPRESSION: Normal chest x-rays.
[2024-05-11 04:50] LABS: Potassium 5.1 mmol/L (3.5-5.1)
[2024-05-11] MEDS: Acetaminophen-Codeine 300-30mg TAB PO STA (05:16)
--- NOTE | 2024-05-11 05:20 | ED ---
SOB HPI - General Chief Complaint: Shortness of Breath Stated Complaint: Difficulty Breathing Time Seen by Provider: 05/11/24 03:41 Source: EMS Mode of arrival: EMS Limitations: no limitations - History of Present Illness Initial Comments: This patient is a 58-year-old woman with history of COPD and previous CHF who presents with complaint that she has worsening short of breath tonight. She also has a little bit of nonproductive cough. She states that she had been doing fairly well until this evening. The patient has not noted an associated fever. No change in her baseline cough. The patient denies change in urination. No leg pain or swelling. MD Complaint: shortness of breath, cough -: hour(s) Severity scale (1-10): 0 Consistency: constant Improves With: nothing Worsens With: nothing Known History Of: COPD, congestive heart failure Associated Symptoms: cough Treatments Prior to Arrival: none - Related Data Home Medications Medication Instructions Recorded Confirmed levETIRAcetam [Keppra] 500 mg PO BID 02/15/24 04/24/24 Previous Rx's Medication Instructions Recorded Albuterol Inhaler [Ventolin Hfa 2 puff INHALATION Q4HR PRN #8 gm 05/11/24 Inhaler] Allergies Allergy/AdvReac Type Severity Reaction Status Date / Time Penicillins Allergy Rash/Hives/Swelling Verified 05/23/24 16:12 all over body NSAIDS (Non-Steroidal AdvReac Unknown upset Verified 05/23/24 16:12 Anti-Inflamma stomach sertraline HCl [From Zoloft] AdvReac Suicidal/Ag Verified 05/23/24 16:12 ression Review of Systems ROS Statement: Those systems with pertinent positive or pertinent negative responses have been documented in the HPI. ROS Other: All systems not noted in ROS Statement are negative. Constitutional: Denies: fever, chills Respiratory: Reports: cough, dyspnea, wheezes. Denies: hemoptysis Cardiovascular: Denies: chest pain, palpitations, orthopnea, edema, syncope Gastrointestinal: Denies: abdominal pain, nausea, vomiting, diarrhea Genitourinary: Denies: dysuria, hematuria Musculoskeletal: Denies: back pain Skin: Denies: rash Neurological: Denies: headache, weakness, numbness Past Medical History Past Medical History: COPD, Liver Disease, Myocardial Infarction ([place]), Seizure Disorder, Vascular Disorder Additional Past Medical History / Comment(s): constpation, last bowel movement 4 days ago, feeling bloated,feeling of fullness, and abdominal pain, feels hungry then over eats then vomits to feel better, LAST SEIZURE - JANUARY 2021, "broken heart syndrome"., elevated liver enzymes, "dislocated disks", hx cervical cancer Last Myocardial Infarction Date:: 2019 History of Any Multi-Drug Resistant Organisms: None Reported Past Surgical History: Section, Heart Catheterization, Tubal Ligation Additional Past Surgical History / Comment(s): ORIF rt ankle/hardware later removed, exploratory lap, PAIN CLINIC PROCEDURE, BILAT CATARACTS REMOVED WITH LENS IMPLANTS, procedure to open a vein in left leg-couldn't confirm which leg, partial amputation rt hand middle finger, "procedure to remove cervical cancer" Past Anesthesia/Blood Transfusion Reactions: No Reported Reaction Past Psychological History: Anxiety, Bipolar, Depression, PTSD Smoking Status: Current every day smoker Past Alcohol Use History: Abuse, Daily, Heavy Past Drug Use History: Marijuana - Past Family History Father Family Medical History: Cancer, Prostate Disorder, Pulmonary Embolus Sister(s) Family Medical History: Cancer Brother(s) Family Medical History: Cancer Additional Family Medical History / Comment(s): colon and bladder General Exam Limitations: no limitations General appearance: alert, in no apparent distress Head exam: Present: atraumatic, normocephalic Eye exam: Present: normal appearance. Absent: scleral icterus, conjunctival injection Neck exam: Present: normal inspection Respiratory exam: Present: wheezes. Absent: respiratory distress, rales, rhonchi, stridor, accessory muscle use, decreased breath sounds, prolonged expiratory Cardiovascular Exam: Present: regular rate, normal rhythm, normal heart sounds. Absent: systolic murmur, diastolic murmur, rubs, gallop GI/Abdominal exam: Present: soft. Absent: distended, tenderness, guarding, rebound, rigid, mass Extremities exam: Present: normal inspection, normal capillary refill. Absent: pedal edema, calf tenderness Back exam: Present: normal inspection. Absent: CVA tenderness (R), CVA tenderness (L) Neurological exam: Present: alert Skin exam: Present: warm, dry, intact, normal color. Absent: rash Course Vital Signs 05/11/24 05/11/24 05/11/24 03:45 03:56 05:30 Temperature 98.6 F Pulse Rate 86 84 68 Respiratory 16 13 Rate Blood Pressure 137/79 128/71 O2 Sat by Pulse 100 100 Oximetry 05/11/24 07:01 Temperature 97.5 F L Pulse Rate 65 Respiratory 22 Rate Blood Pressure 126/74 O2 Sat by Pulse 97 Oximetry Procedures - [facility] Protocol (Time Out) Nurse: Saran Gallo Medical Decision Making - Medical Decision Making The patient had chest x-ray that I interpreted as negative for acute infiltrate, pneumothorax, congestive heart failure. Was pt. sent in by a medical professional or institution (, BENI, DATABASE ADMINISTRATOR, urgent care, hospital, or long term...) When possible be specific @ -[No] Did you speak to anyone other than the patient for history (EMS, parent, family, police, friend...)? What history was obtained from this source @ -[No] Did you review nursing and triage notes (agree or disagree)? Why? @ -[I reviewed and agree with nursing and triage notes] Were old charts reviewed (outside hosp., previous admission, EMS record, old EKG, old radiological studies, urgent care reports/EKG's, long term records)? Report findings @ -[No old charts were reviewed] Differential Diagnosis (chest pain, altered mental status, abdominal pain women, abdominal pain men, vaginal bleeding, weakness, fever, dyspnea, syncope, headache, dizziness, GI bleed, back pain, seizure, CVA, palpatations, mental health, musculoskeletal)? @ -[not applicable] EKG interpreted by me (3pts min.). @ -[As above] X-rays interpreted by me (1pt min.). @ -[I interpreted as above CT interpreted by me (1pt min.). @ -[None done] U/S interpreted by me (1pt. min.). @ -[None done] What testing was considered but not performed or refused? (CT, X-rays, U/S, labs)? Why? @ -[None] What meds were considered but not given or refused? Why? @ -[None] Did you discuss the management of the patient with other professionals (professionals i.e. , BENI, DATABASE ADMINISTRATOR, lab, RT, psych nurse, social media job titles, artillery meteorological man, teacher, community service patrol officer, transplant case manager)? Give summary @ -[No] Was smoking cessation discussed for >3mins.? @ -[Yes, smoking cessation discussed Was critical care preformed (if so, how long)? @ -[No] Were there social determinants of health that impacted care today? How? (Homelessness, low income, unemployed, alcoholism, drug addiction, transportation, low edu. Level, literacy, decrease access to med. care, correction, rehab)? @ -[No] Was there de-escalation of care discussed even if they declined (Discuss DNR or withdrawal of care, Hospice)? DNR status @ -[No] What co-morbidities impacted this encounter? (DM, HTN, Smoking, COPD, CAD, Cancer, CVA, ARF, Chemo, Hep., AIDS, mental health diagnosis, sleep apnea, morbid obesity)? @ -[COPD, CHF Was patient admitted / discharged? Hospital course, mention meds given and route, prescriptions, significant lab abnormalities, going to OR and other pertinent info. @ -[Patient is 58-year-old woman with underlying COPD who presents with history and physical consistent with exacerbation of COPD. The patient has had improvement with treatment here. She is feeling better and would like to go home. We discussed appropriate further care and follow-up as well as return parameters. Undiagnosed new problem with uncertain prognosis? @ -[No] Drug Therapy requiring intensive monitoring for toxicity (Heparin, Nitro, Insulin, Cardizem)? @ -[No] Were any procedures done? @ -[No] Diagnosis/symptom? @ -[Acute exacerbation of COPD Acute alcohol intoxication Acute, or Chronic, or Acute on Chronic? @ -[Acute on chronic Uncomplicated (without systemic symptoms) or Complicated (systemic symptoms)? @ -[Uncomplicated Side effects of treatment? @ -[No] Exacerbation, Progression, or Severe Exacerbation? @ -[Exacerbation Poses a threat to life or bodily function? How? (Chest pain, [place], [place], pneumonia, PE, COPD, DKA, ARF, appy, cholecystitis, CVA, Diverticulitis, Homicidal, Suicidal, threat to staff... and all critical care pts) @ -[No] - Lab Data Result diagrams: 05/11/24 03:40 05/11/24 03:40 Lab Results 05/11/24 05/11/24 05/11/24 Range/Units 03:40 03:40 03:40 WBC 8.2 (3.8-10.6) k/uL RBC 4.59 (3.80-5.40) m/uL Hgb 15.0 (11.4-16.0) gm/dL Hct 44.4 (34.0-46.0) % MCV 96.8 (80.0-100.0) fL MCH 32.7 (25.0-35.0) pg MCHC 33.8 (31.0-37.0) g/dL RDW 16.0 H (11.5-15.5) % Plt Count 330 (150-450) k/uL MPV 7.1 Neutrophils % 45 % Lymphocytes % 42 % Monocytes % 7 % Eosinophils % 2 % Basophils % 1 % Neutrophils # 3.7 (1.3-7.7) k/uL Lymphocytes # 3.5 (1.0-4.8) k/uL Monocytes # 0.6 (0-1.0) k/uL Eosinophils # 0.2 (0-0.7) k/uL Basophils # 0.1 (0-0.2) k/uL PT 10.4 (10.0-12.5) sec INR 0.9 (<1.2) APTT 24.6 (22.0-30.0) sec D-Dimer 0.20 (<0.60) mg/L FEU Sodium 142 (137-145) mmol/L Potassium 5.1 (3.5-5.1) mmol/L Chloride 110 H (98-107) mmol/L Carbon Dioxide 20 L (22-30) mmol/L Anion Gap 12 mmol/L BUN 5 L (7-17) mg/dL Creatinine 0.48 L (0.52-1.04) mg/dL Est GFR (CKD-EPI)AfAm >90 (>60 ml/min/1.73 sqM) Est GFR (CKD-EPI)NonAf >90 (>60 ml/min/1.73 sqM) Glucose 100 H (74-99) mg/dL Lactic Ac Sepsis Rflx Plasma Lactic Acid Anthony (0.7-2.0) mmol/L Calcium 9.0 (8.4-10.2) mg/dL Total Bilirubin 0.9 (0.2-1.3) mg/dL AST 40 H (14-36) U/L ALT 15 (4-34) U/L Alkaline Phosphatase 83 (38-126) U/L Troponin I (0.000-0.034) ng/mL NT-Pro-B Natriuret Pep <20 pg/mL Total Protein 8.5 H (6.3-8.2) g/dL Albumin 5.1 H (3.5-5.0) g/dL Serum Alcohol mg/dL Influenza Type A (PCR) (Not Detectd) Influenza Type B (PCR) (Not Detectd) RSV (PCR) (Not Detectd) SARS-CoV-2 (PCR) (Not Detectd) 05/11/24 05/11/24 05/11/24 Range/Units 03:40 03:40 03:40 WBC (3.8-10.6) k/uL RBC (3.80-5.40) m/uL Hgb (11.4-16.0) gm/dL Hct (34.0-46.0) % MCV (80.0-100.0) fL MCH (25.0-35.0) pg MCHC (31.0-37.0) g/dL RDW (11.5-15.5) % Plt Count (150-450) k/uL MPV Neutrophils % % Lymphocytes % % Monocytes % % Eosinophils % % Basophils % % Neutrophils # (1.3-7.7) k/uL Lymphocytes # (1.0-4.8) k/uL Monocytes # (0-1.0) k/uL Eosinophils # (0-0.7) k/uL Basophils # (0-0.2) k/uL PT (10.0-12.5) sec INR (<1.2) APTT (22.0-30.0) sec D-Dimer (<0.60) mg/L FEU Sodium (137-145) mmol/L Potassium (3.5-5.1) mmol/L Chloride (98-107) mmol/L Carbon Dioxide (22-30) mmol/L Anion Gap mmol/L BUN (7-17) mg/dL Creatinine (0.52-1.04) mg/dL Est GFR (CKD-EPI)AfAm (>60 ml/min/1.73 sqM) Est GFR (CKD-EPI)NonAf (>60 ml/min/1.73 sqM) Glucose (74-99) mg/dL Lactic Ac Sepsis Rflx Plasma Lactic Acid Atnhony 2.5 H* (0.7-2.0) mmol/L Calcium (8.4-10.2) mg/dL Total Bilirubin (0.2-1.3) mg/dL AST (14-36) U/L ALT (4-34) U/L Alkaline Phosphatase (38-126) U/L Troponin I 0.017 (0.000-0.034) ng/mL NT-Pro-B Natriuret Pep pg/mL Total Protein (6.3-8.2) g/dL Albumin (3.5-5.0) g/dL Serum Alcohol 132 mg/dL Influenza Type A (PCR) (Not Detectd) Influenza Type B (PCR) (Not Detectd) RSV (PCR) (Not Detectd) SARS-CoV-2 (PCR) (Not Detectd) 05/11/24 05/11/24 Range/Units 04:21 04:52 WBC (3.8-10.6) k/uL RBC (3.80-5.40) m/uL Hgb (11.4-16.0) gm/dL Hct (34.0-46.0) % MCV (80.0-100.0) fL MCH (25.0-35.0) pg MCHC (31.0-37.0) g/dL RDW (11.5-15.5) % Plt Count (150-450) k/uL MPV Neutrophils % % Lymphocytes % % Monocytes % % Eosinophils % % Basophils % % Neutrophils # (1.3-7.7) k/uL Lymphocytes # (1.0-4.8) k/uL Monocytes # (0-1.0) k/uL Eosinophils # (0-0.7) k/uL Basophils # (0-0.2) k/uL PT (10.0-12.5) sec INR (<1.2) APTT (22.0-30.0) sec D-Dimer (<0.60) mg/L FEU Sodium (137-145) mmol/L Potassium (3.5-5.1) mmol/L Chloride (98-107) mmol/L Carbon Dioxide (22-30) mmol/L Anion Gap mmol/L BUN (7-17) mg/dL Creatinine (0.52-1.04) mg/dL Est GFR (CKD-EPI)AfAm (>60 ml/min/1.73 sqM) Est GFR (CKD-EPI)NonAf (>60 ml/min/1.73 sqM) Glucose (74-99) mg/dL Lactic Ac Sepsis Rflx Y Plasma Lactic Acid Anthony (0.7-2.0) mmol/L Calcium (8.4-10.2) mg/dL Total Bilirubin (0.2-1.3) mg/dL AST (14-36) U/L ALT (4-34) U/L Alkaline Phosphatase (38-126) U/L Troponin I (0.000-0.034) ng/mL NT-Pro-B Natriuret Pep pg/mL Total Protein (6.3-8.2) g/dL Albumin (3.5-5.0) g/dL Serum Alcohol mg/dL Influenza Type A (PCR) Not Detected (Not Detectd) Influenza Type B (PCR) Not Detected (Not Detectd) RSV (PCR) Not Detected (Not Detectd) SARS-CoV-2 (PCR) Not Detected (Not Detectd) - EKG Data -: EKG Interpreted by Me EKG shows normal: sinus rhythm, axis (Normal), intervals (Normal), QRS complexes (Possible old septal infarct based on Q waves V1 tV2) Rate: normal (Rate 85 bpm) Disposition Clinical Impression: Alcohol abuse, Acute exacerbation of chronic obstructive pulmonary disease Disposition: HOME SELF-CARE Condition: Good Instructions (If sedation given, give patient instructions): COPD (Chronic Obstructive Pulmonary Disease) (ED) Prescriptions: Albuterol Inhaler [Ventolin Hfa Inhaler] 2 puff INHALATION Q4HR PRN #8 gm PRN Reason: Wheezing Is patient prescribed a controlled substance at d/c from ED?: No Referrals: None,Stated [Primary Care Provider] - 1-2 days
[2024-05-11 07:02] VITALS: BP 126/74; PULSE 65; RESP 22; TEMP 97.5
== END 2024-05-11 07:32 | disposition home or self-care (01) ==
LOC: EC 03:35
DX: J44.1 Chronic obstructive pulmonary disease with (acute) exacerbation (principal); F10.10 Alcohol abuse, uncomplicated; I50.9 Heart failure, unspecified; F17.200 Nicotine dependence, unspecified, uncomplicated; Z88.0 Allergy status to penicillin; Z88.6 Allergy status to analgesic agent; Z88.8 Allergy status to other drugs, medicaments and biological substances
CPT/HCPCS: 99285; 36415; 94640; 93005; 85379; 83880; 80053; 83605; 84484; 85025; 85610; 85730; 87636; 71046; 99406; G0480; 80320

== ENCOUNTER 2024-05-19 11:38 | Emergency (ER) | payer OTHER ==
[2024-05-19 11:54] VITALS: RESP 18
--- NOTE | 2024-05-19 12:23 | ED ---
Weakness HPI - General Source: patient, EMS, RN notes reviewed Mode of arrival: EMS Limitations: altered mental status <Louann Pryor - Last Filed: 05/19/24 12:21> - General Source: patient, EMS, RN notes reviewed Mode of arrival: EMS Limitations: no limitations <Kb Leal - Last Filed: 05/19/24 13:29> - General Chief complaint: Weakness Stated complaint: Weakness Time Seen by Provider: 05/19/24 11:50 - History of Present Illness Initial comments: Lee lerma is a 58-year-old female history of seizure disorder presenting to the emergency department via EMS for chief complaint of weakness. Patient states that her boyfriend is concerned that she was difficult to wake this morning. The patient states that she has a headache. Patient has a history of alcohol abuse and states shes has 2 beers this morning. (Louann Pryor) 58-year-old female presents emergency department via EMS chief complaint weakness, alcohol intoxication. Patient is well-known to the emergency department. She has no complaints at this time she is able to ambulate. Patient states that she had headache earlier but that has resolved she has no weakness denies chest pain or shortness of breath no nausea vomit diarrhea constipation. (Kb Leal) - Related Data Home Medications Medication Instructions Recorded Confirmed levETIRAcetam [Keppra] 500 mg PO BID 02/15/24 04/24/24 Previous Rx's Medication Instructions Recorded Albuterol Inhaler [Ventolin Hfa 2 puff INHALATION Q4HR PRN #8 gm 05/11/24 Inhaler] Allergies Allergy/AdvReac Type Severity Reaction Status Date / Time Penicillins Allergy Rash/Hives/Swelling Verified 05/19/24 11:50 all over body NSAIDS (Non-Steroidal AdvReac Unknown upset Verified 05/19/24 11:50 Anti-Inflamma stomach sertraline HCl [From Zoloft] AdvReac Suicidal/Ag Verified 05/19/24 11:50 ression Review of Systems ROS Other: All systems not noted in ROS Statement are negative. <Louann Pryor - Last Filed: 05/19/24 12:21> ROS Other: All systems not noted in ROS Statement are negative. <Kb Leal - Last Filed: 05/19/24 13:29> ROS Statement: Those systems with pertinent positive or pertinent negative responses have been documented in the HPI. Past Medical History Past Medical History: Cancer, COPD, Liver Disease, Myocardial Infarction ([place]), Seizure Disorder, Vascular Disorder Additional Past Medical History / Comment(s): constpation, last bowel movement 4 days ago, feeling bloated,feeling of fullness, and abdominal pain, feels hungry then over eats then vomits to feel better, LAST SEIZURE - JANUARY 2021, "broken heart syndrome"., elevated liver enzymes, "dislocated disks", hx cervical cancer Last Myocardial Infarction Date:: 2019 History of Any Multi-Drug Resistant Organisms: None Reported Past Surgical History: Section, Heart Catheterization, Tubal Ligation Additional Past Surgical History / Comment(s): ORIF rt ankle/hardware later removed, exploratory lap, PAIN CLINIC PROCEDURE, BILAT CATARACTS REMOVED WITH LENS IMPLANTS, procedure to open a vein in left leg-couldn't confirm which leg, partial amputation rt hand middle finger, "procedure to remove cervical cancer" Past Anesthesia/Blood Transfusion Reactions: No Reported Reaction Past Psychological History: Anxiety, Bipolar, Depression, PTSD Smoking Status: Current every day smoker Past Alcohol Use History: Abuse, Daily, Heavy Past Drug Use History: Marijuana - Past Family History Father Family Medical History: Cancer, Prostate Disorder, Pulmonary Embolus Sister(s) Family Medical History: Cancer Brother(s) Family Medical History: Cancer Additional Family Medical History / Comment(s): colon and bladder <Louann Pryor - Last Filed: 05/19/24 12:21> General Exam Limitations: altered mental status <Louann Pryor - Last Filed: 05/19/24 12:21> General appearance: alert, in no apparent distress Head exam: Present: atraumatic, normocephalic, normal inspection Eye exam: Present: normal appearance, PERRL, EOMI. Absent: scleral icterus, conjunctival injection, periorbital swelling ENT exam: Present: normal exam, normal oropharynx, mucous membranes moist Neck exam: Present: normal inspection, full ROM. Absent: tenderness, meningismus, lymphadenopathy Respiratory exam: Present: normal lung sounds bilaterally. Absent: respiratory distress, wheezes, rales, rhonchi, stridor Cardiovascular Exam: Present: regular rate, normal rhythm, normal heart sounds. Absent: systolic murmur, diastolic murmur, rubs, gallop, clicks <Kb Leal - Last Filed: 05/19/24 13:29> - General Exam Comments Initial Comments: Visual Physical Exam Vital signs reviewed General: Well-appearing, nontoxic, no acute distress. Head: Normocephalic, atraumatic Eyes: PERRLA, EOMI ENT: Airway patent Chest: Nonlabored breathing Skin: No visual rash, normal skin tone Neuro: Alert and oriented 3 Musculoskeletal: No gross abnormalities (Louann Pryor) Course Vital Signs 05/19/24 11:50 Temperature 98.5 F Pulse Rate 78 Respiratory 18 Rate Blood Pressure 131/82 O2 Sat by Pulse 93 L Oximetry Medical Decision Making <Louann Pryor - Last Filed: 05/19/24 12:21> - Lab Data Result diagrams: 05/19/24 12:43 05/19/24 12:43 <Kb Leal - Last Filed: 05/19/24 13:29> - Medical Decision Making I completed the quick note portion of this chart signed Louann Pryor PA-C (Louann Pryor) Was pt. sent in by a medical professional or institution ([facility] Dill, COMMUNITY DEVELOPMENT PLANNER, urgent care, hospital, or [place] health care facility...) When possible be specific @ -No Did you speak to anyone other than the patient for history (EMS, parent, family, police, friend...)? What history was obtained from this source @ -No Did you review nursing and triage notes (agree or disagree)? Why? @ -I reviewed and agree with nursing and triage notes Were old charts reviewed (outside hosp., previous admission, EMS record, old EKG , old radiological studies, urgent care reports/EKG's, [place] health [facility] facility records)? Report findings @ -No old charts were reviewed Differential Diagnosis (chest pain, altered mental status, abdominal pain women, abdominal pain men, vaginal bleeding, weakness, fever, dyspnea, syncope, headache, dizziness, GI bleed, back pain, seizure, CVA, palpatations, mental health, musculoskeletal)? @ -Differential Weakness: Hypoglycemia, shock, sepsis, hyponatremia, anemia, infection, [place], ETOH, adverse medicine reaction, overdose, stroke, this is not meant to be an all-inclusive list. EKG interpreted by me (3pts min.). @ -As above X-rays interpreted by me (1pt min.). @ -None done CT interpreted by me (1pt min.). @ -None done U/S interpreted by me (1pt. min.). @ -None done What testing was considered but not performed or refused? (CT, X-rays, U/S, labs)? Why? @ -None What meds were considered but not given or refused? Why? @ -None Did you discuss the management of the patient with other professionals (willian michael i.e. , PA, COMMUNITY DEVELOPMENT PLANNER, lab, RT, psych nurse, social science instructor, business services representative, teacher, dog license officer supervisor, keycase assembler)? Give summary @ -No Was smoking cessation discussed for >3mins.? @ -No Was critical care preformed (if so, how long)? @ -No Were there social determinants of health that impacted care today? How? (Homelessness, low income, unemployed, alcoholism, drug addiction, transportation, low edu. Level, literacy, decrease access to med. care, care home, rehab)? @ -No Was there de-escalation of care discussed even if they declined (Discuss DNR or withdrawal of care, Hospice)? DNR status @ -No What co-morbidities impacted this encounter? (DM, HTN, Smoking, COPD, CAD, Cancer, CVA, ARF, Chemo, Hep., AIDS, mental health diagnosis, sleep apnea, morbid obesity)? @ -Alcohol abuse Admitted / discharged? Hospital course, mention meds given and route, prescriptions, significant lab abnormalities, going to OR and other pertinent info. Discharged - Was found to be acutely intoxicated. Patient has no other complaints she is awake alert and orientated in no signs distress vitals are stable. She is requesting to be discharged. Patient be discharged in stable condition return transfer discussed. Undiagnosed new problem with uncertain prognosis? @ -No Drug Therapy requiring intensive monitoring for toxicity (Heparin, Nitro, Insulin, Cardizem)? @ -No Were any procedures done? @ -No Diagnosis/symptom? @ -Alcohol abuse Acute, or Chronic, or Acute on Chronic? @ -Acute Uncomplicated (without systemic symptoms) or Complicated (systemic symptoms)? @ -Uncomplicated Side effects of treatment? @ -No Exacerbation, Progression, or Severe Exacerbation? @ -No Poses a threat to life or bodily function? How? (Chest pain, [place], [place], pneumonia, PE, COPD, DKA, ARF, appy, cholecystitis, CVA, Diverticulitis, Homicidal, Suicidal, threat to staff... and all critical care pts) @ -No (MelKb) - Lab Data Lab Results 05/19/24 05/19/24 05/19/24 Range/Units 12:43 12:43 12:43 WBC 8.1 (3.8-10.6) k/uL RBC 4.63 (3.80-5.40) m/uL Hgb 14.9 (11.4-16.0) gm/dL Hct 44.4 (34.0-46.0) % MCV 95.9 (80.0-100.0) fL MCH 32.2 (25.0-35.0) pg MCHC 33.5 (31.0-37.0) g/dL RDW 15.4 (11.5-15.5) % Plt Count 258 (150-450) k/uL MPV 6.8 Neutrophils % 61 % Lymphocytes % 27 % Monocytes % 8 % Eosinophils % 1 % Basophils % 1 % Neutrophils # 5.0 (1.3-7.7) k/uL Lymphocytes # 2.2 (1.0-4.8) k/uL Monocytes # 0.7 (0-1.0) k/uL Eosinophils # 0.1 (0-0.7) k/uL Basophils # 0.1 (0-0.2) k/uL PT 10.6 (10.0-12.5) sec INR 1.0 (<1.2) APTT 26.3 (22.0-30.0) sec Sodium 137 (137-145) mmol/L Potassium 4.0 (3.5-5.1) mmol/L Chloride 105 (98-107) mmol/L Carbon Dioxide 20 L (22-30) mmol/L Anion Gap 12 mmol/L BUN 5 L (7-17) mg/dL Creatinine 0.47 L (0.52-1.04) mg/dL Est GFR (CKD-EPI)AfAm >90 (>60 ml/min/1.73 sqM) Est GFR (CKD-EPI)NonAf >90 (>60 ml/min/1.73 sqM) Glucose 90 (74-99) mg/dL Plasma Lactic Acid Anthony (0.7-2.0) mmol/L Calcium 9.5 (8.4-10.2) mg/dL Phosphorus 4.6 H (2.5-4.5) mg/dL Magnesium 1.8 (1.6-2.3) mg/dL Total Bilirubin 0.4 (0.2-1.3) mg/dL AST 26 (14-36) U/L ALT 12 (4-34) U/L Alkaline Phosphatase 108 (38-126) U/L Troponin I (0.000-0.034) ng/mL Total Protein 7.6 (6.3-8.2) g/dL Albumin 4.9 (3.5-5.0) g/dL Serum Alcohol 184 mg/dL 05/19/24 05/19/24 Range/Units 12:43 12:43 WBC (3.8-10.6) k/uL RBC (3.80-5.40) m/uL Hgb (11.4-16.0) gm/dL Hct (34.0-46.0) % MCV (80.0-100.0) fL MCH (25.0-35.0) pg MCHC (31.0-37.0) g/dL RDW (11.5-15.5) % Plt Count (150-450) k/uL MPV Neutrophils % % Lymphocytes % % Monocytes % % Eosinophils % % Basophils % % Neutrophils # (1.3-7.7) k/uL Lymphocytes # (1.0-4.8) k/uL Monocytes # (0-1.0) k/uL Eosinophils # (0-0.7) k/uL Basophils # (0-0.2) k/uL PT (10.0-12.5) sec INR (<1.2) APTT (22.0-30.0) sec Sodium (137-145) mmol/L Potassium (3.5-5.1) mmol/L Chloride (98-107) mmol/L Carbon Dioxide (22-30) mmol/L Anion Gap mmol/L BUN (7-17) mg/dL Creatinine (0.52-1.04) mg/dL Est GFR (CKD-EPI)AfAm (>60 ml/min/1.73 sqM) Est GFR (CKD-EPI)NonAf (>60 ml/min/1.73 sqM) Glucose (74-99) mg/dL Plasma Lactic Acid Anthony 2.8 H* (0.7-2.0) mmol/L Calcium (8.4-10.2) mg/dL Phosphorus (2.5-4.5) mg/dL Magnesium (1.6-2.3) mg/dL Total Bilirubin (0.2-1.3) mg/dL AST (14-36) U/L ALT (4-34) U/L Alkaline Phosphatase (38-126) U/L Troponin I <0.012 (0.000-0.034) ng/mL Total Protein (6.3-8.2) g/dL Albumin (3.5-5.0) g/dL Serum Alcohol mg/dL Disposition <Louann Pryor - Last Filed: 05/19/24 12:21> Is patient prescribed a controlled substance at d/c from ED?: No Time of Disposition: 13:29 <Kb Leal - Last Filed: 05/19/24 13:29> Clinical Impression: Alcohol intoxication Disposition: HOME SELF-CARE Condition: Stable Instructions (If sedation given, give patient instructions): Alcohol Intoxication (ED) Additional Instructions: Please return to the Emergency Department if symptoms worsen or any other concerns. Referrals: None,Stated [Primary Care Provider] - 1-2 days
[2024-05-19 12:58] LABS: Basophils # (A) 0.1 k/uL (0-0.2); Basophils % (A) 1 %; Eosinophils # (A) 0.1 k/uL (0-0.7); Eosinophils % (A) 1 %; HCT 44.4 % (34.0-46.0); HGB 14.9 gm/dL (11.4-16.0); Lymphocytes # (A) 2.2 k/uL (1.0-4.8); Lymphocytes % (A) 27 %; MCH 32.2 pg (25.0-35.0); MCHC 33.5 g/dL (31.0-37.0); MCV 95.9 fL (80.0-100.0); Mean Platelet Volume 6.8; Monocytes # (A) 0.7 k/uL (0-1.0); Monocytes % (A) 8 %; Neutrophils % (A) 61 %; Platelet Count 258 k/uL (150-450); RBC 4.63 m/uL (3.80-5.40); RDW 15.4 % (11.5-15.5); WBC 8.1 k/uL (3.8-10.6)
[2024-05-19 13:06] LABS: ALT 12 U/L (4-34); AST 26 U/L (14-36); African American GFR (CKD) >90 (>60 ml/min/1.73 sqM); Albumin 4.9 g/dL (3.5-5.0); Alkaline Phosphatase 108 U/L (38-126); Anion Gap 12 mmol/L; Blood Urea Nitrogen 5 mg/dL (7-17); Calcium 9.5 mg/dL (8.4-10.2); Carbon Dioxide 20 mmol/L (22-30); Chloride 105 mmol/L (98-107); Glucose 90 mg/dL (74-99); Magnesium 1.8 mg/dL (1.6-2.3); Non-African American GFR(CKD) >90 (>60 ml/min/1.73 sqM); Phosphorus 4.6 mg/dL (2.5-4.5); Sodium 137 mmol/L (137-145); Total Bilirubin 0.4 mg/dL (0.2-1.3); Total Protein 7.6 g/dL (6.3-8.2)
[2024-05-19 13:15] LABS: Alcohol 184 mg/dL
[2024-05-19 13:16] LABS: Partial Thromboplastin Time 26.3 sec (22.0-30.0); Prothrombin Time 10.6 sec (10.0-12.5)
[2024-05-19 14:06] VITALS: BP 123/80; PULSE 71; TEMP 98.2
== END 2024-05-19 13:39 | disposition home or self-care (01) ==
LOC: EC 11:38
DX: F10.129 Alcohol abuse with intoxication, unspecified (principal); F17.200 Nicotine dependence, unspecified, uncomplicated; Z88.0 Allergy status to penicillin; Z88.6 Allergy status to analgesic agent; Z88.8 Allergy status to other drugs, medicaments and biological substances
CPT/HCPCS: 36415; 93005; 80053; 83605; 83735; 84100; 84484; 85025; 85610; 85730; 99285; G0480; 80320

== ENCOUNTER 2024-05-23 15:49 | Emergency (ER) | payer OTHER ==
--- NOTE | 2024-05-23 16:09 | ED ---
Alcohol HPI - General Stated Complaint: Chest pain Time Seen by Provider: 05/23/24 15:54 Source: RN notes reviewed, old records reviewed Mode of arrival: EMS Limitations: altered mental status (Expect intoxication) - History of Present Illness Initial Comments: This is a 58-year-old female to the ER for evaluation of significant chest pain presenting by EMS and does admit to severe alcohol use today. 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 -: minute(s) Previous Visits for Alcohol Intoxication?: Yes Recent Trauma: Yes Associated Symptoms: denies other symptoms Treatments Prior to Arrival: none Chronic Alcohol Use: Yes - Related Data Home Medications Medication Instructions Recorded Confirmed levETIRAcetam [Keppra] 500 mg PO BID 02/15/24 04/24/24 Previous Rx's Medication Instructions Recorded Albuterol Inhaler [Ventolin Hfa 2 puff INHALATION Q4HR PRN #8 gm 05/11/24 Inhaler] Allergies Allergy/AdvReac Type Severity Reaction Status Date / Time Penicillins Allergy Rash/Hives/Swelling Verified 05/23/24 16:12 all over body NSAIDS (Non-Steroidal AdvReac Unknown upset Verified 05/23/24 16:12 Anti-Inflamma stomach sertraline HCl [From Zoloft] AdvReac Suicidal/Ag Verified 05/23/24 16:12 ression Review of Systems ROS Statement: Those systems with pertinent positive or pertinent negative responses have been documented in the HPI. ROS Other: All systems not noted in ROS Statement are negative. Past Medical History Past Medical History: Cancer, COPD, Liver Disease, Myocardial Infarction ([place]), Seizure Disorder, Vascular Disorder Additional Past Medical History / Comment(s): constpation, last bowel movement 4 days ago, feeling bloated,feeling of fullness, and abdominal pain, feels hungry then over eats then vomits to feel better, LAST SEIZURE - JANUARY 2021, "broken heart syndrome"., elevated liver enzymes, "dislocated disks", hx cervical cancer Last Myocardial Infarction Date:: 2019 History of Any Multi-Drug Resistant Organisms: None Reported Past Surgical History: Section, Heart Catheterization, Tubal Ligation Additional Past Surgical History / Comment(s): ORIF rt ankle/hardware later rem caden, exploratory lap, PAIN CLINIC PROCEDURE, BILAT CATARACTS REMOVED WITH LENS IMPLANTS, procedure to open a vein in left leg-couldn't confirm which leg, partial amputation rt hand middle finger, "procedure to remove cervical cancer" Past Anesthesia/Blood Transfusion Reactions: No Reported Reaction Past Psychological History: Anxiety, Bipolar, Depression, PTSD Smoking Status: Current every day smoker Past Alcohol Use History: Abuse, Daily, Heavy Past Drug Use History: Marijuana - Past Family History Father Family Medical History: Cancer, Prostate Disorder, Pulmonary Embolus Sister(s) Family Medical History: Cancer Brother(s) Family Medical History: Cancer Additional Family Medical History / Comment(s): colon and bladder General Exam General appearance: alert, in no apparent distress, appears intoxicated Head exam: Present: atraumatic, normocephalic, normal inspection Eye exam: Present: normal appearance, PERRL, EOMI. Absent: scleral icterus, conjunctival injection, periorbital swelling ENT exam: Present: normal exam, mucous membranes moist Neck exam: Present: normal inspection. Absent: tenderness, meningismus, lymphadenopathy Respiratory exam: Present: normal lung sounds bilaterally. Absent: respiratory distress, wheezes, rales, rhonchi, stridor Cardiovascular Exam: Present: regular rate, normal rhythm, normal heart sounds. Absent: systolic murmur, diastolic murmur, rubs, gallop, clicks GI/Abdominal exam: Present: soft, normal bowel sounds. Absent: distended, tenderness, guarding, rebound, rigid Extremities exam: Present: normal inspection, full ROM, normal capillary refill. Absent: tenderness, pedal edema, joint swelling, calf tenderness Back exam: Present: normal inspection Neurological exam: Present: alert, oriented X3, CN II-XII intact Psychiatric exam: Present: normal affect, normal mood Skin exam: Present: warm, dry, intact, normal color. Absent: rash Course Vital Signs 05/23/24 05/23/24 16:04 16:44 Temperature 98.2 F Pulse Rate 74 72 Respiratory 18 18 Rate Blood Pressure 127/82 120/79 O2 Sat by Pulse 96 96 Oximetry - Reevaluation(s) Reevaluation #1: 05/23/24 18:04 Records reviewed Reevaluation #2: 05/23/24 18:04 Patient symptoms unchanged Reevaluation #3: 05/23/24 18:04 Patient awake alert able to ambulate without difficulty Reevaluation #4: Was pt. sent in by a medical professional or institution (, [facility], MEDIEVAL ENGLISH LITERATURE PROFESSOR, urgent care, hospital, or [place] health [facility] facility...) When possible be specific @ -no Did you speak to anyone other than the patient for history (EMS, parent, family, police, friend...)? What history was obtained from this source @ -no Did you review nursing and triage notes (agree or disagree)? Why? @ -agree Are old charts reviewed (outside hosp., previous admission, EMS record, old EKG, old radiological studies, urgent care reports/EKG's, [place] [facility] records)? Report findings @ -yes Differential Diagnosis (chest pain, altered mental status, abdominal pain women, abdominal pain men, vaginal bleeding, weakness, fever, dyspnea, syncope, headache, dizziness, GI bleed, back pain, seizure, CVA, palpatations, mental health, musculoskeletal)? @ -prior EKG interpreted by me (3pts min.). @ -yes X-rays interpreted by me (1pt min.). @ -yes negative for acute disease CT interpreted by me (1pt min.). @ -no U/S interpreted by me (1pt. min.). @ -no What testing was considered but not performed or refused? (CT, X-rays, U/S, labs )? Why? @ -none What meds were considered but not given or refused? Why? @ -none Did you discuss the management of the patient with other professionals (professionals i.e. B[facility]I Dill, MEDIEVAL ENGLISH LITERATURE PROFESSOR, lab, RT, psych nurse, social services director, low emission automobile designer, teacher, retirement officer, transplant case manager)? Give summary @ -no Was smoking cessation discussed for >3mins.? @ -no Was critical care preformed (if so, how long)? @ -no Were there social determinants of health that impacted care today? How? (Homelessness, low income, unemployed, alcoholism, drug addiction, transportation, low edu. Level, literacy, decrease access to med. care, long-term, rehab)? @ -none Was there de-escalation of care discussed even if they declined (Discuss DNR or withdrawal of care, Hospice)? DNR status @ -no What co-morbidities impacted this encounter? (DM, HTN, Smoking, COPD, CAD, Cancer, CVA, ARF, Chemo, Hep., AIDS, mental health diagnosis, sleep apnea, morbid obesity)? @ -none Was patient admitted / discharged? Hospital course, mention meds given and route, prescriptions, significant lab abnormalities, going to OR and other pertinent info. @ - Undiagnosed new problem with uncertain prognosis? @ -no Drug Therapy requiring intensive monitoring for toxicity (Heparin, Nitro, Insulin, Cardizem)? @ -no Were any procedures done? @ -no Diagnosis/symptom? @ - Acute, or Chronic, or Acute on Chronic? @ -Acute Uncomplicated (without systemic symptoms) or Complicated (systemic symptoms)? @ -Complicated Side effects of treatment? @ -no Exacerbation, Progression, or Severe Exacerbation? @ -exacerbation Poses a threat to life or bodily function? How? (Chest pain, [place], [place], pneumonia, PE, COPD, DKA, ARF, appy, cholecystitis, CVA, Diverticulitis, Homicidal, Suicidal, threat to staff... and all critical care pts) @ -yes Reevaluation #5: Differential Chest Pain: Stable Angina, Unstable Angina, STEMI, NSTEMI Aortic Dissection, Pneumothorax, Musculoskeletal, Esophageal Spasm GERD, Cholecystitis, Pancreatitis, Zoster, this is not meant to be an all-inclusive list. Medical Decision Making - Medical Decision Making 58 female to ER for chest pain and alcohol intoxication. Patient is intoxicated here in the ER but normal EKG normal troponin normal x-ray. She can be discharged home - Lab Data Result diagrams: 05/23/24 16:36 05/23/24 16:36 Lab Results 05/23/24 05/23/24 05/23/24 Range/Units 16:36 16:36 16:36 WBC 8.2 (3.8-10.6) k/uL RBC 4.46 (3.80-5.40) m/uL Hgb 14.3 (11.4-16.0) gm/dL Hct 43.2 (34.0-46.0) % MCV 96.8 (80.0-100.0) fL MCH 32.1 (25.0-35.0) pg MCHC 33.2 (31.0-37.0) g/dL RDW 15.1 (11.5-15.5) % Plt Count 230 (150-450) k/uL MPV 6.8 Neutrophils % 60 % Lymphocytes % 29 % Monocytes % 7 % Eosinophils % 1 % Basophils % 1 % Neutrophils # 4.9 (1.3-7.7) k/uL Lymphocytes # 2.4 (1.0-4.8) k/uL Monocytes # 0.6 (0-1.0) k/uL Eosinophils # 0.1 (0-0.7) k/uL Basophils # 0.0 (0-0.2) k/uL PT 10.8 (10.0-12.5) sec INR 1.0 (<1.2) APTT 26.0 (22.0-30.0) sec Sodium 135 L (137-145) mmol/L Potassium 4.0 (3.5-5.1) mmol/L Chloride 102 (98-107) mmol/L Carbon Dioxide 22 (22-30) mmol/L Anion Gap 11 mmol/L BUN 3 L (7-17) mg/dL Creatinine 0.52 (0.52-1.04) mg/dL Est GFR (CKD-EPI)AfAm >90 (>60 ml/min/1.73 sqM) Est GFR (CKD-EPI)NonAf >90 (>60 ml/min/1.73 sqM) Glucose 81 (74-99) mg/dL Plasma Lactic Acid Anthony (0.7-2.0) mmol/L Calcium 9.2 (8.4-10.2) mg/dL Phosphorus 4.0 (2.5-4.5) mg/dL Magnesium 1.7 (1.6-2.3) mg/dL Total Bilirubin 0.4 (0.2-1.3) mg/dL AST 29 (14-36) U/L ALT 13 (4-34) U/L Alkaline Phosphatase 105 (38-126) U/L Troponin I (0.000-0.034) ng/mL Total Protein 6.9 (6.3-8.2) g/dL Albumin 4.7 (3.5-5.0) g/dL Lipase 109 (23-300) U/L TSH 0.942 (0.465-4.680) mIU/L Serum Alcohol 197 mg/dL 05/23/24 05/23/24 Range/Units 16:36 16:36 WBC (3.8-10.6) k/uL RBC (3.80-5.40) m/uL Hgb (11.4-16.0) gm/dL Hct (34.0-46.0) % MCV (80.0-100.0) fL MCH (25.0-35.0) pg MCHC (31.0-37.0) g/dL RDW (11.5-15.5) % Plt Count (150-450) k/uL MPV Neutrophils % % Lymphocytes % % Monocytes % % Eosinophils % % Basophils % % Neutrophils # (1.3-7.7) k/uL Lymphocytes # (1.0-4.8) k/uL Monocytes # (0-1.0) k/uL Eosinophils # (0-0.7) k/uL Basophils # (0-0.2) k/uL PT (10.0-12.5) sec INR (<1.2) APTT (22.0-30.0) sec Sodium (137-145) mmol/L Potassium (3.5-5.1) mmol/L Chloride (98-107) mmol/L Carbon Dioxide (22-30) mmol/L Anion Gap mmol/L BUN (7-17) mg/dL Creatinine (0.52-1.04) mg/dL Est GFR (CKD-EPI)AfAm (>60 ml/min/1.73 sqM) Est GFR (CKD-EPI)NonAf (>60 ml/min/1.73 sqM) Glucose (74-99) mg/dL Plasma Lactic Acid Anthony 2.5 H* (0.7-2.0) mmol/L Calcium (8.4-10.2) mg/dL Phosphorus (2.5-4.5) mg/dL Magnesium (1.6-2.3) mg/dL Total Bilirubin (0.2-1.3) mg/dL AST (14-36) U/L ALT (4-34) U/L Alkaline Phosphatase (38-126) U/L Troponin I <0.012 (0.000-0.034) ng/mL Total Protein (6.3-8.2) g/dL Albumin (3.5-5.0) g/dL Lipase (23-300) U/L TSH (0.465-4.680) mIU/L Serum Alcohol mg/dL - EKG Data -: EKG Interpreted by Me (EKG is sinus 69 CA 163 QRS 104 QTc 433) - Radiology Data Radiology results: report reviewed (X-rays negative for acute disease), image reviewed Disposition Clinical Impression: Alcohol intoxication, Atypical chest pain Disposition: HOME SELF-CARE Condition: Fair Instructions (If sedation given, give patient instructions): Alcohol Intoxication (ED) Is patient prescribed a controlled substance at d/c from ED?: No Referrals: None,Stated [Primary Care Provider] - 1-2 days Time of Disposition: 18:00
[2024-05-23 16:41] LABS: Basophils % (A) 1 %; Eosinophils # (A) 0.1 k/uL (0-0.7); Eosinophils % (A) 1 %; HCT 43.2 % (34.0-46.0); HGB 14.3 gm/dL (11.4-16.0); Lymphocytes # (A) 2.4 k/uL (1.0-4.8); Lymphocytes % (A) 29 %; MCH 32.1 pg (25.0-35.0); MCHC 33.2 g/dL (31.0-37.0); MCV 96.8 fL (80.0-100.0); Mean Platelet Volume 6.8; Monocytes # (A) 0.6 k/uL (0-1.0); Monocytes % (A) 7 %; Neutrophils # (A) 4.9 k/uL (1.3-7.7); Neutrophils % (A) 60 %; Platelet Count 230 k/uL (150-450); RBC 4.46 m/uL (3.80-5.40); RDW 15.1 % (11.5-15.5); WBC 8.2 k/uL (3.8-10.6)
[2024-05-23] MEDS: SODIUM CHLORIDE 0.9% 1,000 ML IV STA (16:45)
[2024-05-23 16:49] LABS: Prothrombin Time 10.8 sec (10.0-12.5)
[2024-05-23 16:54] LABS: ALT 13 U/L (4-34); AST 29 U/L (14-36); African American GFR (CKD) >90 (>60 ml/min/1.73 sqM); Albumin 4.7 g/dL (3.5-5.0); Alkaline Phosphatase 105 U/L (38-126); Anion Gap 11 mmol/L; Blood Urea Nitrogen 3 mg/dL (7-17); Calcium 9.2 mg/dL (8.4-10.2); Carbon Dioxide 22 mmol/L (22-30); Chloride 102 mmol/L (98-107); Glucose 81 mg/dL (74-99); Lipase 109 U/L (23-300); Magnesium 1.7 mg/dL (1.6-2.3); Non-African American GFR(CKD) >90 (>60 ml/min/1.73 sqM); Sodium 135 mmol/L (137-145); Total Bilirubin 0.4 mg/dL (0.2-1.3); Total Protein 6.9 g/dL (6.3-8.2)
[2024-05-23 17:35] LABS: Alcohol 197 mg/dL
--- NOTE | 2024-05-23 18:21 | XR ---
EXAMINATION TYPE: XR chest 2V DATE OF EXAM: 05/23/2024 6:13 PM COMPARISON: 05/03/2024 CLINICAL INDICATION: Female, 58 years old with history of Weakness, chest pain TECHNIQUE: XR chest 2V view(s) obtained. FINDINGS: The heart size is normal. The pulmonary vasculature is normal. The lungs are clear. IMPRESSION: 1. No acute pulmonary process. [facility], , 05/23/2024 6:19 PM
[2024-05-23 18:58] VITALS: BP 110/68; PULSE 79; RESP 16; TEMP 97.9
== END 2024-05-23 19:22 | disposition home or self-care (01) ==
LOC: EC 15:49
DX: R07.89 Other chest pain (principal); F10.129 Alcohol abuse with intoxication, unspecified; F17.200 Nicotine dependence, unspecified, uncomplicated; Z88.0 Allergy status to penicillin; Z88.6 Allergy status to analgesic agent; Z88.8 Allergy status to other drugs, medicaments and biological substances; Y90.6 Blood alcohol level of 120-199 mg/100 ml
CPT/HCPCS: 36415; 93005; 80053; 83605; 83690; 83735; 84100; 84443; 84484; 85025; 85610; 85730; 71046; 99285; 96360; G0480; 80320

== ENCOUNTER 2024-06-16 23:30 | Observation (INO) | payer OTHER ==
[2024-06-16 23:36] VITALS: TEMP 97.8
[2024-06-16] MEDS: ASPIRIN 81 MG PO STA (23:42)
[2024-06-16] MEDS: NITROGLYCERIN SL TABS 0.4 MG TAB SUBLINGUAL STA (23:43)
[2024-06-16] MEDS: ONDANSETRON 4 MG/2 ML VIAL IVP STA (23:44)
[2024-06-16] MEDS: SODIUM CHLORIDE 0.9% 1,000 ML IV STA (23:46)
[2024-06-16 23:55] LABS: Basophils # (A) 0.1 k/uL (0-0.2); Basophils % (A) 1 %; Eosinophils # (A) 0.1 k/uL (0-0.7); Eosinophils % (A) 2 %; HCT 48.3 % (34.0-46.0); HGB 16.2 gm/dL (11.4-16.0); Lymphocytes # (A) 3.4 k/uL (1.0-4.8); Lymphocytes % (A) 48 %; MCH 33.7 pg (25.0-35.0); MCHC 33.5 g/dL (31.0-37.0); MCV 100.6 fL (80.0-100.0); Macrocytosis Slight; Mean Platelet Volume 6.9; Monocytes # (A) 0.6 k/uL (0-1.0); Monocytes % (A) 9 %; Neutrophils # (A) 2.8 k/uL (1.3-7.7); Neutrophils % (A) 39 %; Platelet Count 273 k/uL (150-450); RDW 14.2 % (11.5-15.5); WBC 7.2 k/uL (3.8-10.6)
[2024-06-17 00:07] LABS: INR 0.9 (<1.2); Prothrombin Time 10.4 sec (10.0-12.5)
[2024-06-17 00:13] LABS: ALT 17 U/L (4-34); African American GFR (CKD) >90 (>60 ml/min/1.73 sqM); Albumin 5.3 g/dL (3.5-5.0); Amylase 55 U/L (30-110); Anion Gap 14 mmol/L; Blood Urea Nitrogen 5 mg/dL (7-17); Calcium 9.6 mg/dL (8.4-10.2); Carbon Dioxide 19 mmol/L (22-30); Chloride 104 mmol/L (98-107); Glucose 142 mg/dL (74-99); Lipase 117 U/L (23-300); Non-African American GFR(CKD) >90 (>60 ml/min/1.73 sqM); Sodium 137 mmol/L (137-145); Total Bilirubin 0.6 mg/dL (0.2-1.3); Total Protein 7.9 g/dL (6.3-8.2)
[2024-06-17] MEDS: IPRATROPIUM-ALBUTEROL 3 ML NEB INHALATION STA (00:13)
[2024-06-17 00:14] LABS: Potassium 4.7 mmol/L (3.5-5.1)
[2024-06-17 00:15] LABS: AST 37 U/L (14-36); Alkaline Phosphatase 74 U/L (38-126); Magnesium 1.8 mg/dL (1.6-2.3)
[2024-06-17 00:21] LABS: NT-Pro-B-Type Natriuretic Pept <20 pg/mL
--- NOTE | 2024-06-17 00:34 | ED ---
General Adult HPI - General Chief complaint: Chest Pain Stated complaint: CHEST PAIN Time Seen by Provider: 06/16/24 23:37 Source: patient, EMS Limitations: no limitations - History of Present Illness Initial comments: Patient is a 58-year-old female presenting today for chest pain. Patient states history is limited by patient's alcohol intoxication. She states that while laying in bed with her boyfriend this evening she rolled over and began experiencing sharp chest pain in the middle of her chest. Radiates to her left shoulder. Endorse associated shortness of breath. Denies hemoptysis cough or sputum production. Endorses feeling hot and cold but has not measured any fevers at home. Denies diaphoresis with onset of chest pain. No LE swelling. States she has a history of broken heart syndrome and her current chest pain feels like when she was diagnosed with broken heart syndrome. No medications prior to arrival. No medications given by EMS. States she drank 3beers this evening, is a daily drinker. No hx EtoH w/drawal, per pt. Pt is a current smoker. Endorses crampy abdominal pain. States she has been having 2 loose stools a day for the last 4 days. Has not looked at her stool to check for hematochezia or melena. - Related Data Home Medications Medication Instructions Recorded Confirmed levETIRAcetam [Keppra] 500 mg PO BID 02/15/24 06/17/24 Albuterol Inhaler [Ventolin Hfa 2 puff INHALATION RT-Q4H PRN 06/17/24 06/17/24 Inhaler] Previous Rx's Medication Instructions Recorded Acetaminophen Tab [Tylenol] 650 mg PO Q6HR PRN tab 06/17/24 Aspirin 81 mg PO DAILY #30 tab 06/17/24 Atorvastatin [Lipitor] 40 mg PO HS #30 tab 06/17/24 Calcium Carbonate [Tums] 1,000 mg PO Q4HR PRN tab 06/17/24 Famotidine [Pepcid] 20 mg PO BID #60 tab 06/17/24 Allergies Allergy/AdvReac Type Severity Reaction Status Date / Time Penicillins Allergy Rash/Hives/Swelling Verified 06/17/24 08:35 all over body NSAIDS (Non-Steroidal AdvReac Unknown upset Verified 06/17/24 08:35 Anti-Inflamma stomach sertraline HCl [From Zoloft] AdvReac Suicidal/Ag Verified 06/17/24 08:35 ression Review of Systems ROS Statement: Those systems with pertinent positive or pertinent negative responses have been documented in the HPI. ROS Other: All systems not noted in ROS Statement are negative. Past Medical History Past Medical History: Cancer, COPD, Liver Disease, Myocardial Infarction ([place]), Seizure Disorder, Vascular Disorder Additional Past Medical History / Comment(s): constpation, last bowel movement 4 days ago, feeling bloated,feeling of fullness, and abdominal pain, feels hungry then over eats then vomits to feel better, LAST SEIZURE - JANUARY 2021, "broken heart syndrome"., elevated liver enzymes, "dislocated disks", hx cervical cancer Last Myocardial Infarction Date:: 2019 History of Any Multi-Drug Resistant Organisms: None Reported Past Surgical History: Section, Heart Catheterization, Tubal Ligation Additional Past Surgical History / Comment(s): ORIF rt ankle/hardware later removed, exploratory lap, PAIN CLINIC PROCEDURE, BILAT CATARACTS REMOVED WITH LENS IMPLANTS, procedure to open a vein in left leg-couldn't confirm which leg, partial amputation rt hand middle finger, "procedure to remove cervical cancer" Past Anesthesia/Blood Transfusion Reactions: No Reported Reaction Past Psychological History: Anxiety, Bipolar, Depression, PTSD Smoking Status: Current every day smoker Past Alcohol Use History: Abuse, Daily, Heavy Past Drug Use History: Marijuana - Past Family History Father Family Medical History: Cancer, Prostate Disorder, Pulmonary Embolus Sister(s) Family Medical History: Cancer Brother(s) Family Medical History: Cancer Additional Family Medical History / Comment(s): colon and bladder General Exam - General Exam Comments Initial Comments: PE: CONSTITUTIONAL: [no apparent distress, disheveled appearing nontoxic, smells strongly of alcohol] SKIN: [warm, dry, no jaundice, hives or petechiae] EYES:[ pupils are equally round, extraocular movements intact without nystagmus, clear conjunctiva, non-icteric sclera] HENT: [normocephalic, atraumatic, moist mucus membranes, oropharynx clear without exudates] NECK: , [Full range of motion, normal appearance] PULMONARY: [Scant wheezes in the lower lung lund,without crackles, rhonchi, or rales, normal excursion, no accessory muscle use and no stridor] CARDIOVASCULAR:[ regular rate, rhythm, normal S1 and S2. No appreciated murmurs, rubs or gallops. Strong radial pulses with intact distal perfusion. No lower extremity edema] GASTROINTESTINAL: [soft, active bowel sounds throughout, non-tender, non- distended, no palpable masses, no rebound or guarding. No hepatosplenomegaly] GENITOURINARY: MUSCULOSKELETAL: [Extremities have no gross deformity, no edema, redness, or swelling. No calf swelling ] NEUROLOGIC: [_a/o x 3, GCS 15, normal mentation and slightly slurred speech speech. Moves all extremities x 4 without motor or sensory deficit] PSYCHIATRIC:[ _normal mood and affect, thought process is overall clear and linear though pt is visibly intoxicated] Limitations: no limitations Course Vital Signs 06/16/24 06/17/24 06/17/24 23:32 00:15 00:22 Temperature 97.8 F Pulse Rate 75 61 64 Respiratory 18 Rate Blood Pressure 176/119 O2 Sat by Pulse 97 Oximetry 06/17/24 06/17/24 06/17/24 01:29 06:10 07:59 Temperature Pulse Rate 79 65 75 Respiratory 18 18 16 Rate Blood Pressure 133/86 157/91 152/107 O2 Sat by Pulse 94 L 92 L 97 Oximetry 06/17/24 08:55 Temperature Pulse Rate 67 Respiratory 18 Rate Blood Pressure 134/84 O2 Sat by Pulse Oximetry EKG Findings - EKG Comments: EKG Findings:: EKG #1, performed at 2338, showed sinus rhythm significant artifact throughout limiting interpretation, rate 67 beats minute MO interval 162 ms QT/QTc 396/411 ms, normal axis, a repeat EKG was obtained due to artifact limiting interpretation of ST depressions/elevations though no clear STEMI present. EKG #2 was performed at 2344, sinus rhythm rate 68 bpm MO interval 162 ms QT/QTc 397/415 ms, normal axis, T wave inversion lead aVR and V1 , questionable half millimeter ST elevation V2 otherwise no significant ST elevations or depressions, Compared to EKG performed on 05/23/2024, questionable half millimeter ST elevation in lead V2 is new from prior, otherwise no significant changes from prior Medical Decision Making - Medical Decision Making Was pt. sent in by a medical professional or institution (, PA, SALES OFFICE ASSISTANT, urgent care, hospital, or residential...) When possible be specific @ -No Did you speak to anyone other than the patient for history (EMS, parent, family, police, friend...)? What history was obtained from this source @ -No Did you review nursing and triage notes (agree or disagree)? Why? @ -I reviewed nursing and triage notes Were old charts reviewed (outside hosp., previous admission, EMS record, old EKG, old radiological studies, urgent care reports/EKG's, residential records)? Report findings @Medical records reviewed reviewed discharge summary from when patient was admitted on 04/24/2024 when patient was admitted for delirium tremens with alcohol withdrawal, was advised by cardiology at that time and ACS was ruled out, echocardiogram at that time showed ejection fraction of 60 to 65% Differential Diagnosis (chest pain, altered mental status, abdominal pain women, abdominal pain men, vaginal bleeding, weakness, fever, dyspnea, syncope, heada thomas, dizziness, GI bleed, back pain, seizure, CVA, palpatations, mental health, musculoskeletal)? @Differential Chest Pain: Stable Angina, Unstable Angina, STEMI, NSTEMI pericarditis, pleurisy, chost ochondirits, Pneumothorax, Musculoskeletal, Esophageal Spasm GERD, Cholecystitis, Pancreatitis, Zoster, this is not meant to be an all-inclusive list. EKG interpreted by me (3pts min.). @ -As above X-rays interpreted by me (1pt min.). X-ray reviewed, shows hyperinflation of the lungs but no cardiomegaly, no consolidations or pleural effusions CT interpreted by me (1pt min.). @ -None done U/S interpreted by me (1pt. min.). @ -None done What testing was considered but not performed or refused? (CT, X-rays, U/S, labs)? Why? @ -None What meds were considered but not given or refused? Why? @ -None Did you discuss the management of the patient with other professionals (professionals i.e. , PA, SALES OFFICE ASSISTANT, lab, RT, psych nurse, social worker clinical, manager of housekeeping, teacher, aoc plans intelligence officer, case fitter)? Give summary @ -No Was smoking cessation discussed for >3mins.? @ -No Was critical care preformed (if so, how long)? @ -No Were there social determinants of health that impacted care today? How? (Homelessness, low income, unemployed, alcoholism, drug addiction, transportation, low edu. Level, literacy, decrease access to med. care, usp, rehab)? @ -History alcoholism Was there de-escalation of care discussed even if they declined (Discuss DNR or withdrawal of care, Hospice)? @ -No What co-morbidities impacted this encounter? (DM, HTN, Smoking, COPD, CAD, Cancer, CVA, ARF, Chemo, Hep., AIDS, mental health diagnosis, sleep apnea, morbid obesity)? @Takotsubo's cardiomyopathy Was patient admitted / discharged? Hospital course, mention meds given and route, prescriptions, significant lab abnormalities, going to OR and other pertinent info. @ Admission- Patient is a 58-year-old female past medical history of Takotsubo's cardiomyopathy, alcoholism presenting today for chest pain. Seen and assessed on arrival. Complete history and physical exam performed. Pt notably intoxicated so will limited medications that could cause respiratory depression such as morphine. At this point will begin with CXR, comprehensive labs, ASAand SL nitro. Pt agreeable with POC. On reassessment patient endorsed minimal improvement of pain with nitroglycerin. Labs and imaging reviewed. Grossly within normal limits. Abnormal values not concerning for acute pathology related to presenting complaint. Will give small dose of morphine as patient is intoxicated. Ordered 2 mg IV morphine, 4 mg Zofran. Plan for admission for observation for chest pain due to pt's significant PMH. Case discussed with Dr. Klein, who kindly accepts pt for admission. Undiagnosed new problem with uncertain prognosis? @ -No Drug Therapy requiring intensive monitoring for toxicity (Heparin, Nitro, Insulin, Cardizem)? @ -No Were any procedures done? @ -No Diagnosis/symptom? @Chest pain alcohol intoxication Acute, or Chronic, or Acute on Chronic? Acute Uncomplicated (without systemic symptoms) or Complicated (systemic symptoms)? Complicated Side effects of treatment? @ -No Exacerbation, Progression, or Severe Exacerbation? @ -No Poses a threat to life or bodily function? How? (Chest pain, [place], NM, pneumonia, PE, COPD, DKA, ARF, appy, cholecystitis, CVA, Diverticulitis, Homicidal, Suicidal, threat to staff... and all critical care pts) Yes - Lab Data Result diagrams: 06/17/24 06:14 06/17/24 06:14 Lab Results 06/16/24 06/16/24 06/16/24 Range/Units 23:41 23:41 23:41 WBC 7.2 (3.8-10.6) k/uL RBC 4.80 (3.80-5.40) m/uL Hgb 16.2 H (11.4-16.0) gm/dL Hct 48.3 H (34.0-46.0) % MCV 100.6 H (80.0-100.0) fL MCH 33.7 (25.0-35.0) pg MCHC 33.5 (31.0-37.0) g/dL RDW 14.2 (11.5-15.5) % Plt Count 273 (150-450) k/uL MPV 6.9 Neutrophils % 39 % Lymphocytes % 48 % Monocytes % 9 % Eosinophils % 2 % Basophils % 1 % Neutrophils # 2.8 (1.3-7.7) k/uL Lymphocytes # 3.4 (1.0-4.8) k/uL Monocytes # 0.6 (0-1.0) k/uL Eosinophils # 0.1 (0-0.7) k/uL Basophils # 0.1 (0-0.2) k/uL Macrocytosis Slight PT 10.4 (10.0-12.5) sec INR 0.9 (<1.2) APTT 25.0 (22.0-30.0) sec D-Dimer (<0.60) mg/L FEU Sodium 137 (137-145) mmol/L Potassium 4.7 (3.5-5.1) mmol/L Chloride 104 (98-107) mmol/L Carbon Dioxide 19 L (22-30) mmol/L Anion Gap 14 mmol/L BUN 5 L (7-17) mg/dL Creatinine 0.49 L (0.52-1.04) mg/dL Est GFR (CKD-EPI)AfAm >90 (>60 ml/min/1.73 sqM) Est GFR (CKD-EPI)NonAf >90 (>60 ml/min/1.73 sqM) Glucose 142 H (74-99) mg/dL Calcium 9.6 (8.4-10.2) mg/dL Magnesium 1.8 (1.6-2.3) mg/dL Total Bilirubin 0.6 (0.2-1.3) mg/dL AST 37 H (14-36) U/L ALT 17 (4-34) U/L Alkaline Phosphatase 74 (38-126) U/L Troponin I (0.000-0.034) ng/mL NT-Pro-B Natriuret Pep <20 pg/mL Total Protein 7.9 (6.3-8.2) g/dL Albumin 5.3 H (3.5-5.0) g/dL Amylase 55 (30-110) U/L Lipase 117 (23-300) U/L Urine Color Urine Appearance (Clear) Urine pH (5.0-8.0) Ur Specific [place] (1.001-1.035) Urine Protein (Negative) Urine Glucose (UA) (Negative) Urine Ketones (Negative) Urine Blood (Negative) Urine Nitrite (Negative) Urine Bilirubin (Negative) Urine Urobilinogen (<2.0) mg/dL Ur Leukocyte Esterase (Negative) Influenza Type A (PCR) (Not Detectd) Influenza Type B (PCR) (Not Detectd) RSV (PCR) (Not Detectd) SARS-CoV-2 (PCR) (Not Detectd) 06/16/24 06/17/24 06/17/24 Range/Units 23:41 01:15 01:17 WBC (3.8-10.6) k/uL RBC (3.80-5.40) m/uL Hgb (11.4-16.0) gm/dL Hct (34.0-46.0) % MCV (80.0-100.0) fL MCH (25.0-35.0) pg MCHC (31.0-37.0) g/dL RDW (11.5-15.5) % Plt Count (150-450) k/uL MPV Neutrophils % % Lymphocytes % % Monocytes % % Eosinophils % % Basophils % % Neutrophils # (1.3-7.7) k/uL Lymphocytes # (1.0-4.8) k/uL Monocytes # (0-1.0) k/uL Eosinophils # (0-0.7) k/uL Basophils # (0-0.2) k/uL Macrocytosis PT (10.0-12.5) sec INR (<1.2) APTT (22.0-30.0) sec D-Dimer (<0.60) mg/L FEU Sodium (137-145) mmol/L Potassium (3.5-5.1) mmol/L Chloride (98-107) mmol/L Carbon Dioxide (22-30) mmol/L Anion Gap mmol/L BUN (7-17) mg/dL Creatinine (0.52-1.04) mg/dL Est GFR (CKD-EPI)AfAm (>60 ml/min/1.73 sqM) Est GFR (CKD-EPI)NonAf (>60 ml/min/1.73 sqM) Glucose (74-99) mg/dL Calcium (8.4-10.2) mg/dL Magnesium (1.6-2.3) mg/dL Total Bilirubin (0.2-1.3) mg/dL AST (14-36) U/L ALT (4-34) U/L Alkaline Phosphatase (38-126) U/L Troponin I 0.017 (0.000-0.034) ng/mL NT-Pro-B Natriuret Pep pg/mL Total Protein (6.3-8.2) g/dL Albumin (3.5-5.0) g/dL Amylase (30-110) U/L Lipase (23-300) U/L Urine Color Colorless Urine Appearance Clear (Clear) Urine pH 5.0 (5.0-8.0) Ur Specific [place] 1.003 (1.001-1.035) Urine Protein Negative (Negative) Urine Glucose (UA) Negative (Negative) Urine Ketones Negative (Negative) Urine Blood Negative (Negative) Urine Nitrite Negative (Negative) Urine Bilirubin Negative (Negative) Urine Urobilinogen <2.0 (<2.0) mg/dL Ur Leukocyte Esterase Negative (Negative) Influenza Type A (PCR) Not Detected (Not Detectd) Influenza Type B (PCR) Not Detected (Not Detectd) RSV (PCR) Not Detected (Not Detectd) SARS-CoV-2 (PCR) Not Detected (Not Detectd) 06/17/24 Range/Units 01:17 WBC (3.8-10.6) k/uL RBC (3.80-5.40) m/uL Hgb (11.4-16.0) gm/dL Hct (34.0-46.0) % MCV (80.0-100.0) fL MCH (25.0-35.0) pg MCHC (31.0-37.0) g/dL RDW (11.5-15.5) % Plt Count (150-450) k/uL MPV Neutrophils % % Lymphocytes % % Monocytes % % Eosinophils % % Basophils % % Neutrophils # (1.3-7.7) k/uL Lymphocytes # (1.0-4.8) k/uL Monocytes # (0-1.0) k/uL Eosinophils # (0-0.7) k/uL Basophils # (0-0.2) k/uL Macrocytosis PT (10.0-12.5) sec INR (<1.2) APTT (22.0-30.0) sec D-Dimer 0.48 (<0.60) mg/L FEU Sodium (137-145) mmol/L Potassium (3.5-5.1) mmol/L Chloride (98-107) mmol/L Carbon Dioxide (22-30) mmol/L Anion Gap mmol/L BUN (7-17) mg/dL Creatinine (0.52-1.04) mg/dL Est GFR (CKD-EPI)AfAm (>60 ml/min/1.73 sqM) Est GFR (CKD-EPI)NonAf (>60 ml/min/1.73 sqM) Glucose (74-99) mg/dL Calcium (8.4-10.2) mg/dL Magnesium (1.6-2.3) mg/dL Total Bilirubin (0.2-1.3) mg/dL AST (14-36) U/L ALT (4-34) U/L Alkaline Phosphatase (38-126) U/L Troponin I (0.000-0.034) ng/mL NT-Pro-B Natriuret Pep pg/mL Total Protein (6.3-8.2) g/dL Albumin (3.5-5.0) g/dL Amylase (30-110) U/L Lipase (23-300) U/L Urine Color Urine Appearance (Clear) Urine pH (5.0-8.0) Ur Specific [place] (1.001-1.035) Urine Protein (Negative) Urine Glucose (UA) (Negative) Urine Ketones (Negative) Urine Blood (Negative) Urine Nitrite (Negative) Urine Bilirubin (Negative) Urine Urobilinogen (<2.0) mg/dL Ur Leukocyte Esterase (Negative) Influenza Type A (PCR) (Not Detectd) Influenza Type B (PCR) (Not Detectd) RSV (PCR) (Not Detectd) SARS-CoV-2 (PCR) (Not Detectd) Disposition Clinical Impression: Chest pain Disposition: ADMITTED IP TO THIS HOSP Condition: Stable
[2024-06-17] MEDS: ONDANSETRON 4 MG/2 ML VIAL IVP STA (00:49)
[2024-06-17] MEDS: MORPHINE SULFATE 2 MG/ML SYRINGE IVP STA (00:49)
[2024-06-17] MEDS: NICOTINE 21MG/24HR PATCH TRANSDERM STA (01:26)
[2024-06-17] MEDS: levETIRAcetam 500 MG TAB PO SCH (01:26)
[2024-06-17 01:51] LABS: Appearance,Urine Clear (Clear); Bilirubin,Urine Negative (Negative); Blood,Urine Negative (Negative); Color,Urine Colorless; Glucose,Urine (UA) Negative (Negative); Ketones,Urine Negative (Negative); Leukocyte Esterase,Urine Negative (Negative); Nitrite,Urine Negative (Negative); Protein,Urine Negative (Negative); Specific Gravity,Urine 1.003 (1.001-1.035); Urobilinogen,Urine <2.0 mg/dL (<2.0)
[2024-06-17] MEDS ORDERED: ONDANSETRON 4 MG/2 ML VIAL IVP PRN (02:04)
[2024-06-17] MEDS ORDERED: MORPHINE SULFATE 4 MG/ML SYRINGE IV PRN (02:04)
[2024-06-17] MEDS ORDERED: NALOXONE 0.4 MG/ML 1 ML VIAL IV PRN (02:04)
[2024-06-17] MEDS ORDERED: chlordiazePOXIDE 25 MG CAP PO PRN ×4 (02:06)
[2024-06-17] MEDS ORDERED: LORazepam 1 MG TAB PO PRN (02:06)
[2024-06-17] MEDS ORDERED: LORazepam 2 MG/ML INJ IV PRN (02:06)
[2024-06-17] MEDS: DEXTROSE 5%-0.45% NACL 1,000 ML IV SCH (02:24)
[2024-06-17] MEDS: THIAMINE 100 MG/ML 2 ML VIAL IM STA (02:24)
[2024-06-17] MEDS: HYDROcodone/APAP 5-325MG 1 EACH TAB PO PRN (02:34)
--- NOTE | 2024-06-17 02:52 | XR ---
EXAM: XR Chest, 2 Views CLINICAL HISTORY: ITS.REASON XR Reason: Chest Pain TECHNIQUE: Frontal and lateral views of the chest. COMPARISON: No relevant prior studies available. FINDINGS: Lungs: Unremarkable. No consolidation. Pleural space: Unremarkable. No pneumothorax. Heart: Unremarkable. No cardiomegaly. Mediastinum: Unremarkable. Normal mediastinal contour. Bones/joints: Unremarkable. No acute fracture. IMPRESSION: Normal chest x-rays.
[2024-06-17] MEDS ORDERED: CALCIUM CARBONATE 500 MG CHEWABLE PO PRN (04:00)
--- NOTE | 2024-06-17 04:09 | P.HPIM ---
History of Present Illness H&P Date: 06/17/24 Chief Complaint: Chest Pain Patient is a 58-year-old female with PMHx of of Takotsubo cardiomyopathy, hypertension, seizure disorder, anxiety, tobacco use, and alcohol abuse who presented to the ED with chief complaint of chest pain. History is limited due to current alcohol intoxication. Patient reports the chest pain is centralized and was radiating to the left arm. The chest pain began while she was laying down. She states the pain is similar to a previous episode from her "broken heart syndrome". She also endorses shortness of breath, nausea, and feeling hot and cold. Patient also states she has abdominal pain, but believes it to be from past tubal ligation and . She states she has high blood pressure, but ran out of her meds. Patient states she drinks 2-3 beers a day and had 3 beers this evening. She denies cough, hemoptysis, diaphoresis, vomiting, lower extremity swelling. ED documentation reviewed. Vitals on admission Temperature 97.9, heart rate 79 bpm, respiratory rate 16, BP 110/68, O2 saturation 99% on room air Initial EKG independently interpreted as sinus rhythm with ventricular rate of 67 bpm and QTc of 411 ms with RSR pattern in V1 and V2 suspected right bundle branch block Repeat EKG independently interpreted as sinus rhythm ventricular rate of 68 BPM and QTc of 415 ms CXR shows no acute cardiopulmonary process. Most recent echocardiogram in April showed ejection fraction of 60 to 65% with some mildly increased septal wall thickening. Labs on admission show WBC 7.2, hemoglobin 16.2, MCV 100.6, platelets 273. PT 10.4 INR 0.9 PTT 25 D-dimer 0.48. Sodium 137 potassium 4.7 chloride 104 bicarb 19 BUN 5 creatinine 0.49 glucose 142. UA was unremarkable. Viral serologies for influenza A/B, RSV, COVID were all negative Review of systems: Pertinent positives and negatives as discussed in HPI, a complete review of systems was performed and all other systems are negative. PMH: As stated above PSH: Tubal ligation, , ORIF, ex lap Allergies: Penicillin (hives) Social history: Tobacco: Current smoker, 10 handrolled cigarettes per day Alcohol: Daily drinker, 2-3 beers Recreational drugs: Marijuana daily 1 joint Travel: None Sick contacts: None Physical examination: Vital signs reviewed General: nontoxic, no distress, appears older than stated age, appears intoxicated Derm: warm, dry, intact Head: atraumatic, normocephalic, symmetric Eyes: anicteric sclera Mouth: no lip lesion, mucus membranes moist Cardiovascular: S1 S2 reg, no murmur Lungs: CTA bilateral, no rhonchi, no rales, no accessory muscle use Abdominal: soft, nondistended, mild tenderness to palpation noted in lower quadrants Extremities: No cyanosis, clubbing, or pedal edema. Partial amputation of R. middle finger Neuro: Alert, Oriented to person, time and place, Gross neurological examination did not reveal any focal deficits. Cranial nerves II to XII grossly intact. Bilateral upper and lower extremity muscle strength intact and sensation intact. Psych: well appearing, appropriate affect Assessment/Plan: Patient is a 58-year-old female past medical history of Takotsubo cardiomyopathy, hypertension, seizure disorder, anxiety tobacco use and alcohol abuse who presented with chief complaint of chest pain. Patient will be admitted to internal medicine service for further evaluation. Active: Atypical chest pain, rule out ACS Continue morphine 4 mg IV every 4 hours as needed for severe pain Trend troponin Consult cardiology No need for repeat echo at this time (previous Echo 05/07) Cardiac monitoring Nitroglycerin paste C/w Aspirin and statin Alcohol intoxication, impending withdrawal Continue CIWA protocol with Librium prn Fall and Seizure precautions Continue Zofran Continue folic acid Continue thiamine Continue multivitamin Continue D50.45% NS at 70 mL/h Macrocytosis, likely secondary to alcohol abuse Continue to monitor Check b12 and folate levels Chronic: Seizure disorder Continue Keppra 500 mg twice daily Hypertension Will resume once home meds are confirmed Anxiety Will resume once home meds are confirmed Nicotine dependence Nicotine patch daily F: D50.45% NS at 70 mL/h E: Replete as needed N: Heart healthy diet A: As tolerated DVT prophylaxis: Lovenox 40 mg subcu daily The patient is admitted with an anticipated more than 2 midnight stay for evaluation of atypical chest pain and alcohol intoxication CODE STATUS: Full code Discussed with: Patient Anticipated discharge place: Home Past Medical History Past Medical History: Cancer, COPD, Liver Disease, Myocardial Infarction ([place]), Seizure Disorder, Vascular Disorder Additional Past Medical History / Comment(s): constpation, last bowel movement 4 days ago, feeling bloated,feeling of fullness, and abdominal pain, feels hungry then over eats then vomits to feel better, LAST SEIZURE - JANUARY 2021, "broken heart syndrome"., elevated liver enzymes, "dislocated disks", hx cervical cancer Last Myocardial Infarction Date:: 2019 History of Any Multi-Drug Resistant Organisms: None Reported Past Surgical History: Section, Heart Catheterization, Tubal Ligation Additional Past Surgical History / Comment(s): ORIF rt ankle/hardware later removed, exploratory lap, PAIN CLINIC PROCEDURE, BILAT CATARACTS REMOVED WITH LENS IMPLANTS, procedure to open a vein in left leg-couldn't confirm which leg, partial amputation rt hand middle finger, "procedure to remove cervical cancer" Past Anesthesia/Blood Transfusion Reactions: No Reported Reaction Past Psychological History: Anxiety, Bipolar, Depression, PTSD Smoking Status: Current every day smoker Past Alcohol Use History: Abuse, Daily, Heavy Past Drug Use History: Marijuana - Past Family History Father Family Medical History: Cancer, Prostate Disorder, Pulmonary Embolus Sister(s) Family Medical History: Cancer Brother(s) Family Medical History: Cancer Additional Family Medical History / Comment(s): colon and bladder Medications and Allergies Home Medications Medication Instructions Recorded Confirmed Type levETIRAcetam [Keppra] 500 mg PO BID 02/15/24 04/24/24 History Albuterol Inhaler [Ventolin Hfa 2 puff INHALATION Q4HR PRN #8 gm 05/11/24 Rx Inhaler] Allergies Allergy/AdvReac Type Severity Reaction Status Date / Time Penicillins Allergy Rash/Hives/Swelling Verified 06/16/24 23:36 all over body NSAIDS (Non-Steroidal AdvReac Unknown upset Verified 06/16/24 23:36 Anti-Inflamma stomach sertraline HCl [From Zoloft] AdvReac Suicidal/Ag Verified 06/16/24 23:36 ression Physical Exam Vitals: Vital Signs Temp Pulse Resp BP Pulse Ox 06/17/24 01:29 79 18 133/86 94 L 06/17/24 00:22 64 06/17/24 00:15 61 06/16/24 23:32 97.8 F 75 18 176/119 97 Intake and Output 06/16/24 06/16/24 06/17/24 14:59 22:59 06:59 Other: Weight 56.699 kg Results CBC & Chem 7: 06/16/24 23:41 06/16/24 23:41 Labs: Abnormal Lab Results - Last 24 Hours (Table) 06/16/24 06/16/24 Range/Units 23:41 23:41 Hgb 16.2 H (11.4-16.0) gm/dL Hct 48.3 H (34.0-46.0) % MCV 100.6 H (80.0-100.0) fL Carbon Dioxide 19 L (22-30) mmol/L BUN 5 L (7-17) mg/dL Creatinine 0.49 L (0.52-1.04) mg/dL Glucose 142 H (74-99) mg/dL AST 37 H (14-36) U/L Albumin 5.3 H (3.5-5.0) g/dL
[2024-06-17] MEDS: ACETAMINOPHEN TAB 325 MG TAB PO PRN (05:18)
[2024-06-17] MEDS ORDERED: MAG HYDROX/AL HYDROX/SIMETH 30 ML CUP PO PRN (06:00)
[2024-06-17 07:07] LABS: Basophils % (A) 1 %; Eosinophils # (A) 0.1 k/uL (0-0.7); Eosinophils % (A) 2 %; HCT 41.8 % (34.0-46.0); HGB 13.5 gm/dL (11.4-16.0); Lymphocytes # (A) 1.9 k/uL (1.0-4.8); Lymphocytes % (A) 44 %; MCH 32.1 pg (25.0-35.0); MCHC 32.3 g/dL (31.0-37.0); MCV 99.1 fL (80.0-100.0); Mean Platelet Volume 7.7; Monocytes # (A) 0.5 k/uL (0-1.0); Monocytes % (A) 13 %; Neutrophils # (A) 1.7 k/uL (1.3-7.7); Neutrophils % (A) 39 %; Platelet Count 254 k/uL (150-450); RBC 4.21 m/uL (3.80-5.40); RDW 14.6 % (11.5-15.5); WBC 4.3 k/uL (3.8-10.6)
[2024-06-17 07:24] LABS: African American GFR (CKD) >90 (>60 ml/min/1.73 sqM); Anion Gap 8 mmol/L; Blood Urea Nitrogen 5 mg/dL (7-17); Calcium 9.1 mg/dL (8.4-10.2); Carbon Dioxide 22 mmol/L (22-30); Chloride 110 mmol/L (98-107); Glucose 103 mg/dL (74-99); Non-African American GFR(CKD) >90 (>60 ml/min/1.73 sqM); Potassium 3.9 mmol/L (3.5-5.1); Sodium 140 mmol/L (137-145)
[2024-06-17] MEDS: NITROGLYCERIN OINT 1 INCH/GM PACKET TOPICAL SCH (08:02)
[2024-06-17] MEDS: NICOTINE 14MG/24HR PATCH TRANSDERM SCH (08:06)
[2024-06-17] MEDS: ENOXAPARIN 40 MG/0.4 ML SYRINGE SQ SCH (08:16)
[2024-06-17] MEDS: ASPIRIN 81 MG PO SCH (08:16)
[2024-06-17] MEDS: FAMOTIDINE 20 MG TAB PO SCH (08:16)
[2024-06-17] MEDS: FOLIC ACID 1 MG TAB PO SCH (08:16)
[2024-06-17] MEDS: MULTIVITAMINS, THERA 1 EACH TAB PO SCH (08:18)
[2024-06-17 08:56] VITALS: BP 134/84; PULSE 67; RESP 18
[2024-06-17] MEDS ORDERED: MORPHINE SULFATE 2 MG/ML SYRINGE IV PRN (09:08)
--- NOTE | 2024-06-17 11:46 | P.CRDCN ---
History of Present Illness Consult date: 06/17/24 Requesting physician: Tennille Klein Reason for Consult (text): chest pain Chief complaint: seizure or chest pain History of present illness: This is a pleasant 58-year-old female patient who previously followed with Dr. Olivas but was last seen in the office in November 2021. With past medical his tory of Takotsubo cardiomyopathy with normal coronary arteries by cardiac catheterization in 2017, tobacco use, alcohol abuse with DTs, hypertension and anxiety.. The time of my examination patient appears to be somewhat intoxicated still. She is unsure why she actually came to the hospital but believes she may have had a seizure or was possibly having chest pain. At the time of my examination she is complaining of some shortness of breath. Troponins have been negative x 2 and EKG was unremarkable. Patient does smoke but is unsure how much she smokes as she rolls her own cigarettes. She admits to drinking 4 beers a day. She denies any dizziness or lightheadedness. She denies any orthopnea or PND. She denies any lower extremity edema.. Diagnostics -EKG: Normal sinus rhythm -Chest x-ray: Normal -Laboratory studies: White blood cell count 7.2, hemoglobin 16.2, normal D- dimer, BUN 5, creatinine 0.49, Elysium 1.8, troponin 0.017 and less than 0.012, NT proBNP less than 20. -Home cardiac medications: None listed -Prior stress test: 11/12/2021 no inducible ischemia with an EF of 60% -Echocardiogram: April 2024 showed normal LV systolic function with no significant valvular abnormalities -Cardiac catheterization: 2016 showing normal coronaries Review Of Systems: At the time of my exam: CONSTITUTIONAL: Denies fever or chills. HEENT: Denies blurred vision, vision changes. CARDIOVASCULAR: Denies chest pain. Denies orthopnea. Denies PND. Denies palpitations, dizziness, or syncope. RESPIRATORY: Shortness of breath. no wheezing, or cough. Denies hemoptysis. GASTROINTESTINAL: Denies abdominal pain. Denies nausea or vomiting. Denies bleeding. HEMATOLOGIC: Denies bleeding disorders. GENITOURINARY: Denies hematuria. SKIN: Denies puritis. Denies rash. PHYSICAL EXAMINATION: This is a 58-year-old female who appears somewhat intoxicated at the time of my examination. VITAL SIGNS: Reviewed. HEENT: Head is atraumatic, normocephalic. Pupils are equal, round. Sclerae anict katlyn. Conjunctivae are clear. Mucous membranes of the mouth are moist. Neck is supple. There is no elevated jugular venous pressure. No carotid bruit is heard. CHEST EXAMINATION: Lungs reveal diminished air entry bilaterally with faint expiratory wheezing throughout. No rales or rhonchi. Respirations even and nonlabored. HEART EXAMINATION: Heart regular, positive S1 and S2. No S3. No S4. No clicks, rubs or murmurs. ABDOMEN: Soft, nontender. Bowel sounds are heard. No organomegaly noted. EXTREMITIES: 2+ peripheral pulses with no evidence of peripheral edema and no calf tenderness noted. NEUROLOGIC EXAMINATION: Patient is drowsy, alert and oriented x3. Assessment: 1. Acute alcohol intoxication 2. Questionable episode of chest pain 3. Questionable seizure 4. Noncompliance 5. Continue dependence Plan: From cardiology's perspective and acute coronary event has been ruled out. No need for further cardiac workup as an inpatient at this time. Encouraged both nicotine and alcohol cessation. At this time we will follow the patient on an as-needed basis please do not hesitate to contact us with questions. Thank you kindly for this consultation. Nurse practitioner note has been reviewed, I agree with documented findings and plan of care. Patient was seen and examined. Past Medical History Past Medical History: Cancer, COPD, Liver Disease, Myocardial Infarction ([place]), Seizure Disorder, Vascular Disorder Additional Past Medical History / Comment(s): constpation, last bowel movement 4 days ago, feeling bloated,feeling of fullness, and abdominal pain, feels hungry then over eats then vomits to feel better, LAST SEIZURE - JANUARY 2021, "broken heart syndrome"., elevated liver enzymes, "dislocated disks", hx cervical cancer Last Myocardial Infarction Date:: 2019 History of Any Multi-Drug Resistant Organisms: None Reported Past Surgical History: Section, Heart Catheterization, Tubal Ligation Additional Past Surgical History / Comment(s): ORIF rt ankle/hardware later removed, exploratory lap, PAIN CLINIC PROCEDURE, BILAT CATARACTS REMOVED WITH LENS IMPLANTS, procedure to open a vein in left leg-couldn't confirm which leg, partial amputation rt hand middle finger, "procedure to remove cervical cancer" Past Anesthesia/Blood Transfusion Reactions: No Reported Reaction Past Psychological History: Anxiety, Bipolar, Depression, PTSD Smoking Status: Current every day smoker Past Alcohol Use History: Abuse, Daily, Heavy Past Drug Use History: Marijuana - Past Family History Father Family Medical History: Cancer, Prostate Disorder, Pulmonary Embolus Sister(s) Family Medical History: Cancer Brother(s) Family Medical History: Cancer Additional Family Medical History / Comment(s): colon and bladder Medications and Allergies Home Medications Medication Instructions Recorded Confirmed Type levETIRAcetam [Keppra] 500 mg PO BID 02/15/24 06/17/24 History Albuterol Inhaler [Ventolin Hfa 2 puff INHALATION RT-Q4H PRN 06/17/24 06/17/24 History Inhaler] Allergies Allergy/AdvReac Type Severity Reaction Status Date / Time Penicillins Allergy Rash/Hives/Swelling Verified 06/17/24 08:35 all over body NSAIDS (Non-Steroidal AdvReac Unknown upset Verified 06/17/24 08:35 Anti-Inflamma stomach sertraline HCl [From Zoloft] AdvReac Suicidal/Ag Verified 06/17/24 08:35 ression Physical Exam Vitals: Vital Signs Temp Pulse Resp BP Pulse Ox 06/17/24 08:55 67 18 134/84 06/17/24 07:59 75 16 152/107 97 06/17/24 06:10 65 18 157/91 92 L 06/17/24 01:29 79 18 133/86 94 L 06/17/24 00:22 64 06/17/24 00:15 61 06/16/24 23:32 97.8 F 75 18 176/119 97 Intake and Output 06/16/24 06/17/24 06/17/24 22:59 06:59 14:59 Other: Weight 56.699 kg Results 06/17/24 06:14 06/17/24 06:14 Cardiac Enzymes 06/16/24 06/16/24 06/17/24 Range/Units 23:41 23:41 06:05 AST 37 H (14-36) U/L Troponin I 0.017 <0.012 (0.000-0.034) ng/mL Coagulation 06/16/24 Range/Units 23:41 PT 10.4 (10.0-12.5) sec APTT 25.0 (22.0-30.0) sec CBC 06/16/24 06/17/24 Range/Units 23:41 06:14 WBC 7.2 4.3 (3.8-10.6) k/uL RBC 4.80 4.21 (3.80-5.40) m/uL Hgb 16.2 H 13.5 (11.4-16.0) gm/dL Hct 48.3 H 41.8 (34.0-46.0) % Plt Count 273 254 (150-450) k/uL Comprehensive Metabolic Panel 06/16/24 06/17/24 Range/Units 23:41 06:14 Sodium 137 140 (137-145) mmol/L Potassium 4.7 3.9 (3.5-5.1) mmol/L Chloride 104 110 H (98-107) mmol/L Carbon Dioxide 19 L 22 (22-30) mmol/L BUN 5 L 5 L (7-17) mg/dL Creatinine 0.49 L 0.56 (0.52-1.04) mg/dL Glucose 142 H 103 H (74-99) mg/dL Calcium 9.6 9.1 (8.4-10.2) mg/dL AST 37 H (14-36) U/L ALT 17 (4-34) U/L Alkaline Phosphatase 74 (38-126) U/L Total Protein 7.9 (6.3-8.2) g/dL Albumin 5.3 H (3.5-5.0) g/dL Current Medications Generic Name Dose Route Start Last Admin Trade Name Freq PRN Reason Stop Dose Admin Acetaminophen 650 mg 06/17/24 02:04 06/17/24 05:18 Acetaminophen Tab 325 Mg Tab PO 650 mg Q6HR PRN Administration Mild Pain or Fever > 100.5 Hydrocodone Bitart/Acetaminophen 1 each 06/17/24 02:04 06/17/24 09:31 Hydrocodone/Apap 5-325mg 1 Each Tab PO 1 each Q6HR PRN Administration Moderate Pain (Scale 4 to 6) Al Hydroxide/Mg Hydroxide 15 ml 06/17/24 06:00 Mag Hydrox/Al Hydrox/Simeth 30 Ml Cup PO Q6HR PRN Indigestion Aspirin 81 mg 06/17/24 09:00 06/17/24 08:16 Aspirin 81 Mg PO 81 mg DAILY EDGARDO Administration Atorvastatin Calcium 40 mg 06/17/24 21:00 Atorvastatin 40 Mg Tab PO HS EDGARDO Calcium Carbonate/Glycine 1,000 mg 06/17/24 04:00 Calcium Carbonate 500 Mg Chewable PO Q4HR PRN Dyspepsia Chlordiazepoxide HCl 25 mg 06/17/24 02:06 Chlordiazepoxide 25 Mg Cap PO Q4HR PRN Ciwa 4 To 5 Chlordiazepoxide HCl 50 mg 06/17/24 02:06 Chlordiazepoxide 25 Mg Cap PO Q4HR PRN Ciwa 6 To 7 Chlordiazepoxide HCl 75 mg 06/17/24 02:06 Chlordiazepoxide 25 Mg Cap PO Q4HR PRN Ciwa 8 To 9 Chlordiazepoxide HCl 100 mg 06/17/24 02:06 Chlordiazepoxide 25 Mg Cap PO Q4HR PRN Ciwa 10 or greater Enoxaparin Sodium 40 mg 06/17/24 09:00 06/17/24 08:16 Enoxaparin 40 Mg/0.4 Ml Syringe SQ 40 mg DAILY EDGARDO Administration Famotidine 20 mg 06/17/24 09:00 06/17/24 08:16 Famotidine 20 Mg Tab PO 20 mg BID EDGARDO Administration Folic Acid 1 mg 06/17/24 09:00 06/17/24 08:16 Folic Acid 1 Mg Tab PO 1 mg DAILY EDGARDO Administration Dextrose/Sodium Chloride 1,000 mls @ 70 mls/hr 06/17/24 02:15 06/17/24 02:24 Dextrose 5%-1/2ns Iv Soln IV 70 mls/hr .[id number] EDGARDO Administration Levetiracetam 500 mg 06/17/24 01:15 06/17/24 08:16 Levetiracetam 500 Mg Tab PO 500 mg BID EDGARDO Administration Lorazepam 1 mg 06/17/24 02:06 Lorazepam 1 Mg Tab PO Q1HR PRN Alcohol Withdrawal Lorazepam 2 mg 06/17/24 02:06 Lorazepam 2 Mg/Ml Inj IV Q6HR PRN Seizures Morphine Sulfate 2 mg 06/17/24 09:08 Morphine Sulfate 2 Mg/Ml Syringe IV Q4HR PRN Severe Pain (Scale 7 to 10) Multivitamins 1 each 06/17/24 09:00 06/17/24 08:18 Multivitamins, Thera 1 Each Tab PO 1 each DAILY EDGARDO Administration Naloxone HCl 0.2 mg 06/17/24 02:04 Naloxone 0.4 Mg/Ml 1 Ml Vial IV Q2M PRN Opioid Reversal Nicotine 1 patch 06/17/24 09:00 06/17/24 08:06 Nicotine 14mg/24hr Patch TRANSDERM Not Given DAILY EDGARDO Nitroglycerin 0.5 inch 06/17/24 08:00 06/17/24 08:02 Nitroglycerin Oint 1 Inch/Gm Packet TOPICAL 0.5 inch Q8HR EDGARDO Administration Ondansetron HCl 4 mg 06/17/24 02:04 Ondansetron 4 Mg/2 Ml Vial IVP Q8HR PRN Nausea And Vomiting Thiamine HCl 100 mg 06/18/24 09:00 Thiamine 100 Mg Tab PO DAILY EDGARDO Intake and Output 06/16/24 06/17/24 06/17/24 22:59 06:59 14:59 Other: Weight 56.699 kg 06/17/24 06:14 06/17/24 06:14
--- NOTE | 2024-06-17 13:02 | P.DS ---
Providers Date of admission: 06/17/24 02:06 Expected date of discharge: 06/17/24 Attending physician: Tennille Klein MD Consults: 06/17/24 02:04 Consult Physician Routine Consulting Provider: Hugo Brito Consult Reason/Comments: Chest pain Do you want consulting provider notified?: Yes, Notify in am 06/17/24 04:35 Consult Physician Routine Consulting Provider: Hugo Brito Consult Reason/Comments: Atypical chest pain Do you want consulting provider notified?: Yes, Notify in am Primary care physician: Stated None Hospital Course: 58-year-old female with PMHx of of Takotsubo cardiomyopathy, hypertension, seizure disorder, anxiety, tobacco use, and alcohol abuse who presented to the ED with chief complaint of chest pain. History is limited due to current alcohol intoxication. Patient reports the chest pain is centralized and was radiating to the left arm. In the ED she underwent extensive evaluation. BP 176/119, HR 75, T 97.8F, RR 18, 97% on RA. CBC, Coag panel, CMP significant for Hg 16.2, Hct 48.3, MCV 100.6, bicarb 19, BUN 5, Cr 0.49, glu 142, AST 37, alb 5.3. Trop 0.017, < 0.012. BNP < 20. Mag 1.8. Lipase 117. Amylase 55. UA neg. COVID, RSV, Flu neg. EKG sinus rhythm. CXR neg. Patient is admitted for Cardiology evaluation. Cardiology recommended no further workup. 06/17 Patient was seen and examined. She reports chest pain with radiation to the left arm. Requesting Morphine. CBC and BMP significant for Cl 110, BUN 5, glu 103. Hemodynamically stable. Cardiology consulted, recommending no further workup. Discharge Plan: Quit drinking alcohol. Follow up with your PCP within 1-2 days of discharge. Follow up with Cardiology within 1 week of discharge. General: non toxic, no distress, appears at stated age Derm: warm, dry Head: atraumatic, normocephalic, symmetric Eyes: EOMI, no lid lag, anicteric sclera Mouth: no lip lesion, mucus membranes moist Cardiovascular: S1S2 reg, no murmur Lungs: CTA bilateral, no rhonchi, no rales , no accessory muscle use Ext: no gross muscle atrophy, no edema, no contractures Neuro: no focal neuro deficits Psych: Alert, oriented, appropriate affect Discharge Diagnosis: Atypical chest pain, rule out ACS Alcohol intoxication, impending withdrawal Macrocytosis, likely secondary to alcohol abuse Seizure disorder Hypertension Anxiety Nicotine dependence This complex discharge took 35 minutes to complete. Patient Condition at Discharge: Stable Plan - Discharge Summary New Discharge Prescriptions: New Aspirin 81 mg PO DAILY #30 tab Atorvastatin [Lipitor] 40 mg PO HS #30 tab Acetaminophen Tab [Tylenol] 650 mg PO Q6HR PRN tab PRN Reason: Mild Pain Or Fever > 100.5 Famotidine [Pepcid] 20 mg PO BID #60 tab Calcium Carbonate [Tums] 1,000 mg PO Q4HR PRN tab PRN Reason: Dyspepsia Continue levETIRAcetam [Keppra] 500 mg PO BID Albuterol Inhaler [Ventolin Hfa Inhaler] 2 puff INHALATION RT-Q4H PRN PRN Reason: Shortness Of Breath Or Wheezing Discharge Medication List levETIRAcetam [Keppra] 500 mg PO BID 02/15/24 [History] Acetaminophen Tab [Tylenol] 650 mg PO Q6HR PRN tab 06/17/24 [Rx] Albuterol Inhaler [Ventolin Hfa Inhaler] 2 puff INHALATION RT-Q4H PRN 06/17/24 [History] Aspirin 81 mg PO DAILY #30 tab 06/17/24 [Rx] Atorvastatin [Lipitor] 40 mg PO HS #30 tab 06/17/24 [Rx] Calcium Carbonate [Tums] 1,000 mg PO Q4HR PRN tab 06/17/24 [Rx] Famotidine [Pepcid] 20 mg PO BID #60 tab 06/17/24 [Rx] Follow up Appointment(s)/Referral(s): Kenny Contreras MD [STAFF PHYSICIAN] - 1 Week [facility] [NON-STAFF] - 1 Week [facility] [NON-STAFF] - 1 Week None,Stated [Primary Care Provider] - 1-2 days Discharge/Stand Alone Forms: Area PCPs Discharge Disposition: HOME SELF-CARE
[2024-06-17] MEDS ORDERED: ATORVASTATIN 40 MG TAB PO SCH (21:00)
[2024-06-18] MEDS ORDERED: THIAMINE 100 MG TAB PO SCH (09:00)
== END 2024-06-17 14:45 | disposition home or self-care (01) ==
LOC: EC 23:30 → 6NMEDSUR 06-17 02:06
PROVIDERS: ADMIT Internal Medicine; ATTEND Internal Medicine
DX: R07.89 Other chest pain (principal); F10.229 Alcohol dependence with intoxication, unspecified; F10.239 Alcohol dependence with withdrawal, unspecified; G40.909 Epilepsy, unspecified, not intractable, without status epilepticus; I10 Essential (primary) hypertension; T46.5X6A Underdosing of other antihypertensive drugs, initial encounter; Z91.128 Patient's intentional underdosing of medication regimen for other reason; M25.512 Pain in left shoulder; R06.02 Shortness of breath; R10.9 Unspecified abdominal pain; M79.602 Pain in left arm; F17.210 Nicotine dependence, cigarettes, uncomplicated; F41.9 Anxiety disorder, unspecified; D75.89 Other specified diseases of blood and blood-forming organs; Z79.899 Other long term (current) drug therapy; Z88.0 Allergy status to penicillin; Z88.6 Allergy status to analgesic agent; Z88.8 Allergy status to other drugs, medicaments and biological substances; Z11.52 Encounter for screening for COVID-19; Z11.59 Encounter for screening for other viral diseases; Z86.79 Personal history of other diseases of the circulatory system
CPT/HCPCS: 96361 ×2; 96372; 96376; 96374; 96375; 99285; 36415; 94640; 93005; 85379; 83880; 80053; 80048; 82607; 82150; 82746; 83690; 83735; 84484 ×2; 85025 ×2; 85610; 85730; 81003; 87636; 71046; G0378; S4990; J3411; J2405 ×2; J1650; J2270

== ENCOUNTER 2024-06-20 01:40 | Emergency (ER) | payer OTHER ==
[2024-06-20 01:43] VITALS: TEMP 98.4
--- NOTE | 2024-06-20 01:54 | ED ---
General Adult HPI - General Chief complaint: Alcohol Stated complaint: ETOH Time Seen by Provider: 06/20/24 01:48 Source: patient Mode of arrival: EMS - History of Present Illness Initial comments: Dictation was produced using [employer] dictation software. please excuse any grammatical, word or spelling errors. Chief Complaint: 58-year-old female well-known to emergency department for alcohol intoxication presents to the ER for palpitations History of Present Illness: Patient is a 58-year-old alcohol dependent female presents emergency department with palpitations. Patient states that she has palpitations to her chest. Denies any chest pain or other pain complaints. Pat rashadnt had multiple alcoholic beverages and cigarettes today. Denies any associated shortness of breath. Denies any pain complaints whatsoever. The ROS documented in this emergency department record has been reviewed and confirmed by me. Those systems with pertinent positive or negative responses have been documented in the HPI. All other systems are other negative and/or noncontributory. - Related Data Home Medications Medication Instructions Recorded Confirmed levETIRAcetam [Keppra] 500 mg PO BID 02/15/24 06/17/24 Albuterol Inhaler [Ventolin Hfa 2 puff INHALATION RT-Q4H PRN 06/17/24 06/17/24 Inhaler] Previous Rx's Medication Instructions Recorded Acetaminophen Tab [Tylenol] 650 mg PO Q6HR PRN tab 06/17/24 Aspirin 81 mg PO DAILY #30 tab 06/17/24 Atorvastatin [Lipitor] 40 mg PO HS #30 tab 06/17/24 Calcium Carbonate [Tums] 1,000 mg PO Q4HR PRN tab 06/17/24 Famotidine [Pepcid] 20 mg PO BID #60 tab 06/17/24 Allergies Allergy/AdvReac Type Severity Reaction Status Date / Time Penicillins Allergy Rash/Hives/Swelling Verified 06/17/24 08:35 all over body NSAIDS (Non-Steroidal AdvReac Unknown upset Verified 06/17/24 08:35 Anti-Inflamma stomach sertraline HCl [From Zoloft] AdvReac Suicidal/Ag Verified 06/17/24 08:35 ression Review of Systems ROS Statement: Those systems with pertinent positive or pertinent negative responses have been documented in the HPI. ROS Other: All systems not noted in ROS Statement are negative. Past Medical History Past Medical History: Cancer, COPD, Liver Disease, Myocardial Infarction ([place]), Seizure Disorder, Vascular Disorder Additional Past Medical History / Comment(s): constpation, last bowel movement 4 days ago, feeling bloated,feeling of fullness, and abdominal pain, feels hungry then over eats then vomits to feel better, LAST SEIZURE - JANUARY 2021, "broken heart syndrome"., elevated liver enzymes, "dislocated disks", hx cervical cancer Last Myocardial Infarction Date:: 2019 History of Any Multi-Drug Resistant Organisms: None Reported Past Surgical History: Section, Heart Catheterization, Tubal Ligation Additional Past Surgical History / Comment(s): ORIF rt ankle/hardware later removed, exploratory lap, PAIN CLINIC PROCEDURE, BILAT CATARACTS REMOVED WITH LENS IMPLANTS, procedure to open a vein in left leg-couldn't confirm which leg, partial amputation rt hand middle finger, "procedure to remove cervical cancer" Past Anesthesia/Blood Transfusion Reactions: No Reported Reaction Past Psychological History: Anxiety, Bipolar, Depression, PTSD Smoking Status: Current every day smoker Past Alcohol Use History: Abuse, Daily, Heavy Past Drug Use History: Marijuana - Past Family History Father Family Medical History: Cancer, Prostate Disorder, Pulmonary Embolus Sister(s) Family Medical History: Cancer Brother(s) Family Medical History: Cancer Additional Family Medical History / Comment(s): colon and bladder General Exam - General Exam Comments Initial Comments: PHYSICAL EXAM: General Impression: Alert and oriented x3, not in acute distress HEENT: Normocephalic atraumatic, extra-ocular movements intact, pupils equal and reactive to light bilaterally, mucous membranes moist. Cardiovascular: Heart regular rate and rhythm Chest: Able to complete full sentences, no retractions, no tachypnea Abdomen: abdomen soft, non-tender, non-distended, no organomegaly Musculoskeletal: Pulses present and equal in all extremities, no peripheral edema Motor: no focal deficits noted Neurological: CN II-XII grossly intact, no focal motor or sensory deficits noted Skin: Intact with no visualized rashes Psych: Normal affect and mood Course Vital Signs 06/20/24 01:41 Temperature 98.4 F Pulse Rate 74 Respiratory 18 Rate Blood Pressure 142/95 O2 Sat by Pulse 96 Oximetry EKG Findings - EKG Comments: EKG Findings:: My EKG interpretation: Ventricular rate sinus rhythm,. 157, QRS 89, QTc 434. No WA prolongation, no QTC prolongation, no ST or T-wave changes noted. Overall, this EKG is unremarkable Medical Decision Making - Medical Decision Making Was pt. sent in by a medical professional or institution (BENI Dill, PROCESS CAMERA OPERATOR, urgent care, hospital, or alf...) When possible be specific @ -No Did you speak to anyone other than the patient for history (EMS, parent, family, police, friend...)? What history was obtained from this source @ -No Did you review nursing and triage notes (agree or disagree)? Why? @ -I reviewed and agree with nursing and triage notes Were old charts reviewed (outside hosp., previous admission, EMS record, old EKG, old radiological studies, urgent care reports/EKG's, alf records)? Report findings @ -No old charts were reviewed Differential Diagnosis (chest pain, altered mental status, abdominal pain women, abdominal pain men, vaginal bleeding, musculoskeletal, weakness, fever, dyspnea, syncope, headache, dizziness, GI bleed, back pain, seizure, CVA, palpatations, mental health)? @ - Differential Palpitations: Ventricular arrhythmias, atrial arrhythmias, myocardial infarction, anemia, thyrotoxicosis, electrolyte imbalance, hypokalemia, pulmonary embolism, pulmonary disease, drugs, alcohol, anxiety, stress.... This is not meant to be an all-inclusive list. EKG interpreted by me (3pts min.). @ -See above X-rays interpreted by me (1pt min.). @ -Chest x-ray shows no acute processes CT interpreted by me (1pt min.). @ -None done U/S interpreted by me (1pt. min.). @ -None done What testing was considered but not performed or refused? (CT, X-rays, U/S, labs)? Why? @ -None What meds were considered but not given or refused? Why? @ -None Was smoking cessation discussed for >3mins.? @ -No Were there social determinants of health that impacted care today? How? (Homelessness, low income, unemployed, alcoholism, drug addiction, transporta tion, low edu. Level, literacy, decrease access to med. care, senior living, rehab)? @ -Alcoholism Was there de-escalation of care discussed even if they declined (Discuss DNR or withdrawal of care, Hospice)? DNR status @ -No What co-morbidities impacted this encounter? (DM, HTN, Smoking, COPD, CAD, Cancer, CVA, ARF, Chemo, Hep., AIDS, mental health diagnosis, sleep apnea, morbid obesity)? @ -None Was patient admitted / discharged? Hospital course, mention meds given and route, prescriptions, significant lab abnormalities, going to OR and other pertinent info. @ -58-year-old female with palpitations. Vital signs stable. Physical examination is benign. Laboratory evaluation obtained found to be within acceptable limits. online tutor is unremarkable. Patient discharged advised follow-up with communications administrator. Did you discuss the management of the patient with other professionals (professionals i.e. , PA, PROCESS CAMERA OPERATOR, lab, RT, psych nurse, social services director, clinical research director, teacher, aircraft electronics technical officer, returned case inspector)? Give summary @ -No Was critical care preformed (if so, how long)? @ -No Undiagnosed new problem with uncertain prognosis? @ -No Drug Therapy requiring intensive monitoring for toxicity (Heparin, Nitro, Insulin, Cardizem)? @ -No Were any procedures done? @ -No Diagnosis/symptom? Acute, or Chronic, or Acute on Chronic? Uncomplicated (without systemic symptoms) or Complicated (systemic symptoms)? @ -Palpitations Side effects of treatment? @ -No Exacerbation, Progression, or Severe Exacerbation? @ -No Poses a threat to life or bodily function? How? (Chest pain, [place], [place], pneumonia, PE, COPD, DKA, ARF, appy, cholecystitis, CVA, Diverticulitis, Homicidal, Suicidal, threat to staff... and all critical care pts) @ -No - Lab Data Result diagrams: 06/20/24 01:55 06/20/24 01:55 Lab Results 06/20/24 06/20/24 06/20/24 Range/Units 01:55 01:55 01:55 WBC 6.9 (3.8-10.6) k/uL RBC 4.64 (3.80-5.40) m/uL Hgb 15.4 (11.4-16.0) gm/dL Hct 46.1 H (34.0-46.0) % MCV 99.4 (80.0-100.0) fL MCH 33.3 (25.0-35.0) pg MCHC 33.5 (31.0-37.0) g/dL RDW 14.1 (11.5-15.5) % Plt Count 265 (150-450) k/uL MPV 7.0 Neutrophils % 58 % Lymphocytes % 27 % Monocytes % 11 % Eosinophils % 1 % Basophils % 1 % Neutrophils # 4.0 (1.3-7.7) k/uL Lymphocytes # 1.9 (1.0-4.8) k/uL Monocytes # 0.8 (0-1.0) k/uL Eosinophils # 0.1 (0-0.7) k/uL Basophils # 0.1 (0-0.2) k/uL PT 10.0 (10.0-12.5) sec INR 0.9 (<1.2) APTT 24.1 (22.0-30.0) sec Sodium 138 (137-145) mmol/L Potassium 4.1 (3.5-5.1) mmol/L Chloride 104 (98-107) mmol/L Carbon Dioxide 18 L (22-30) mmol/L Anion Gap 16 mmol/L BUN 5 L (7-17) mg/dL Creatinine 0.47 L (0.52-1.04) mg/dL Est GFR (CKD-EPI)AfAm >90 (>60 ml/min/1.73 sqM) Est GFR (CKD-EPI)NonAf >90 (>60 ml/min/1.73 sqM) Glucose 83 (74-99) mg/dL Calcium 9.6 (8.4-10.2) mg/dL Magnesium 1.8 (1.6-2.3) mg/dL Total Bilirubin 0.3 (0.2-1.3) mg/dL AST 34 (14-36) U/L ALT 18 (4-34) U/L Alkaline Phosphatase 82 (38-126) U/L Troponin I (0.000-0.034) ng/mL Total Protein 7.4 (6.3-8.2) g/dL Albumin 5.0 (3.5-5.0) g/dL 06/20/24 Range/Units 01:55 WBC (3.8-10.6) k/uL RBC (3.80-5.40) m/uL Hgb (11.4-16.0) gm/dL Hct (34.0-46.0) % MCV (80.0-100.0) fL MCH (25.0-35.0) pg MCHC (31.0-37.0) g/dL RDW (11.5-15.5) % Plt Count (150-450) k/uL MPV Neutrophils % % Lymphocytes % % Monocytes % % Eosinophils % % Basophils % % Neutrophils # (1.3-7.7) k/uL Lymphocytes # (1.0-4.8) k/uL Monocytes # (0-1.0) k/uL Eosinophils # (0-0.7) k/uL Basophils # (0-0.2) k/uL PT (10.0-12.5) sec INR (<1.2) APTT (22.0-30.0) sec Sodium (137-145) mmol/L Potassium (3.5-5.1) mmol/L Chloride (98-107) mmol/L Carbon Dioxide (22-30) mmol/L Anion Gap mmol/L BUN (7-17) mg/dL Creatinine (0.52-1.04) mg/dL Est GFR (CKD-EPI)AfAm (>60 ml/min/1.73 sqM) Est GFR (CKD-EPI)NonAf (>60 ml/min/1.73 sqM) Glucose (74-99) mg/dL Calcium (8.4-10.2) mg/dL Magnesium (1.6-2.3) mg/dL Total Bilirubin (0.2-1.3) mg/dL AST (14-36) U/L ALT (4-34) U/L Alkaline Phosphatase (38-126) U/L Troponin I <0.012 (0.000-0.034) ng/mL Total Protein (6.3-8.2) g/dL Albumin (3.5-5.0) g/dL Disposition Clinical Impression: Heart palpitations Disposition: HOME SELF-CARE Condition: Good Instructions (If sedation given, give patient instructions): Alcohol Intoxication (ED) Is patient prescribed a controlled substance at d/c from ED?: No Referrals: Adam Olivas DO [STAFF PHYSICIAN] - 1-2 days Time of Disposition: 03:19
[2024-06-20 02:26] LABS: Basophils # (A) 0.1 k/uL (0-0.2); Basophils % (A) 1 %; Eosinophils # (A) 0.1 k/uL (0-0.7); Eosinophils % (A) 1 %; HCT 46.1 % (34.0-46.0); HGB 15.4 gm/dL (11.4-16.0); Lymphocytes # (A) 1.9 k/uL (1.0-4.8); Lymphocytes % (A) 27 %; MCH 33.3 pg (25.0-35.0); MCHC 33.5 g/dL (31.0-37.0); MCV 99.4 fL (80.0-100.0); Monocytes # (A) 0.8 k/uL (0-1.0); Monocytes % (A) 11 %; Neutrophils % (A) 58 %; Platelet Count 265 k/uL (150-450); RBC 4.64 m/uL (3.80-5.40); RDW 14.1 % (11.5-15.5); WBC 6.9 k/uL (3.8-10.6)
[2024-06-20 02:27] LABS: ALT 18 U/L (4-34); AST 34 U/L (14-36); African American GFR (CKD) >90 (>60 ml/min/1.73 sqM); Alkaline Phosphatase 82 U/L (38-126); Anion Gap 16 mmol/L; Blood Urea Nitrogen 5 mg/dL (7-17); Calcium 9.6 mg/dL (8.4-10.2); Carbon Dioxide 18 mmol/L (22-30); Chloride 104 mmol/L (98-107); Glucose 83 mg/dL (74-99); Magnesium 1.8 mg/dL (1.6-2.3); Non-African American GFR(CKD) >90 (>60 ml/min/1.73 sqM); Potassium 4.1 mmol/L (3.5-5.1); Sodium 138 mmol/L (137-145); Total Bilirubin 0.3 mg/dL (0.2-1.3); Total Protein 7.4 g/dL (6.3-8.2)
[2024-06-20 02:38] LABS: INR 0.9 (<1.2); Partial Thromboplastin Time 24.1 sec (22.0-30.0)
--- NOTE | 2024-06-20 03:03 | XR ---
EXAM: XR Chest, 2 Views CLINICAL HISTORY: ITS.REASON XR Reason: dysrhythmia TECHNIQUE: Frontal and lateral views of the chest. COMPARISON: No relevant prior studies available. FINDINGS: Lungs: Unremarkable. No consolidation. Pleural space: Unremarkable. No pneumothorax. Heart: Unremarkable. No cardiomegaly. Mediastinum: Unremarkable. Normal mediastinal contour. Bones/joints: Unremarkable. No acute fracture. IMPRESSION: Normal chest x-rays.
[2024-06-20 04:22] VITALS: BP 91/58; PULSE 65; RESP 17
== END 2024-06-20 04:36 | disposition home or self-care (01) ==
LOC: EC 01:40
DX: R00.2 Palpitations (principal); F17.210 Nicotine dependence, cigarettes, uncomplicated; Z88.0 Allergy status to penicillin; Z88.6 Allergy status to analgesic agent; Z88.8 Allergy status to other drugs, medicaments and biological substances
CPT/HCPCS: 36415; 71046; 80053; 83735; 84484; 85025; 85610; 85730; 93005; 99285

== ENCOUNTER 2024-06-21 06:20 | Emergency (ER) | payer OTHER ==
--- NOTE | 2024-06-21 06:23 | ED ---
General Adult HPI - General Stated complaint: SOB Time Seen by Provider: 06/21/24 06:23 - History of Present Illness Initial comments: Is a 58-year-old female with history of smoking who presents the ER today for reevaluation of persistent cough runny stuffy nose. Patient was seen 3 days ago had similar symptoms was negative for flu and COVID at that time. Patient does continue to smoke cigarettes. She is not taking any [id number] medications or prescription medications she is not on any breathing treatments or steroids. - Related Data Home Medications Medication Instructions Recorded Confirmed levETIRAcetam [Keppra] 500 mg PO BID 02/15/24 06/17/24 Albuterol Inhaler [Ventolin Hfa 2 puff INHALATION RT-Q4H PRN 06/17/24 06/17/24 Inhaler] Previous Rx's Medication Instructions Recorded Acetaminophen Tab [Tylenol] 650 mg PO Q6HR PRN tab 06/17/24 Aspirin 81 mg PO DAILY #30 tab 06/17/24 Atorvastatin [Lipitor] 40 mg PO HS #30 tab 06/17/24 Calcium Carbonate [Tums] 1,000 mg PO Q4HR PRN tab 06/17/24 Famotidine [Pepcid] 20 mg PO BID #60 tab 06/17/24 Benzonatate [Tessalon Perle] 200 mg PO TID #12 cap 06/21/24 Allergies Allergy/AdvReac Type Severity Reaction Status Date / Time Penicillins Allergy Rash/Hives/Swelling Verified 06/21/24 06:26 all over body NSAIDS (Non-Steroidal AdvReac Unknown upset Verified 06/21/24 06:26 Anti-Inflamma stomach sertraline HCl [From Zoloft] AdvReac Suicidal/Ag Verified 06/21/24 06:26 ression Review of Systems ROS Statement: Those systems with pertinent positive or pertinent negative responses have been documented in the HPI. ROS Other: All systems not noted in ROS Statement are negative. Past Medical History Past Medical History: Cancer, COPD, Liver Disease, Myocardial Infarction ([place]), Seizure Disorder, Vascular Disorder Additional Past Medical History / Comment(s): constpation, last bowel movement 4 days ago, feeling bloated,feeling of fullness, and abdominal pain, feels hungry then over eats then vomits to feel better, LAST SEIZURE - JANUARY 2021, "broken heart syndrome"., elevated liver enzymes, "dislocated disks", hx cervical cancer Last Myocardial Infarction Date:: 2019 History of Any Multi-Drug Resistant Organisms: None Reported Past Surgical History: Section, Heart Catheterization, Tubal Ligation Additional Past Surgical History / Comment(s): ORIF rt ankle/hardware later removed, exploratory lap, PAIN CLINIC PROCEDURE, BILAT CATARACTS REMOVED WITH LENS IMPLANTS, procedure to open a vein in left leg-couldn't confirm which leg, partial amputation rt hand middle finger, "procedure to remove cervical cancer" Past Anesthesia/Blood Transfusion Reactions: No Reported Reaction Past Psychological History: Anxiety, Bipolar, Depression, PTSD Smoking Status: Current every day smoker Past Alcohol Use History: Abuse, Daily, Heavy Past Drug Use History: Marijuana - Past Family History Father Family Medical History: Cancer, Prostate Disorder, Pulmonary Embolus Sister(s) Family Medical History: Cancer Brother(s) Family Medical History: Cancer Additional Family Medical History / Comment(s): colon and bladder General Exam - General Exam Comments Initial Comments: Physical Exam GENERAL: Chronically ill-appearing HENT: Normocephalic, Atraumatic. EYES: PERRL, EOMI PULMONARY: Tachypneic, wheezing CARDIOVASCULAR: RRR Warm and well perfused extremities ABDOMEN: Non-distended SKIN: No rashes or bruising : Deferred NEUROLOGIC: Alert and oriented Normal speech MUSCULOSKELETAL: Moving all extremities with no apparent injury PSYCHIATRIC: No SI/HI Course Vital Signs 06/21/24 06/21/24 06/21/24 06:23 06:40 06:46 Temperature 99 F Pulse Rate 87 80 82 Respiratory 18 Rate Blood Pressure 166/110 O2 Sat by Pulse 100 Oximetry 06/21/24 06:55 Temperature Pulse Rate 90 Respiratory 20 Rate Blood Pressure 174/100 O2 Sat by Pulse 99 Oximetry EKG Findings - EKG Comments: EKG Findings:: EG interpreted by me, EKG obtained due to complaint of shortness of breath EKG obtained at 6:27 AM, rate is 88 rhythm is sinus normal intervals [place] 149 QRS 90 QTc [address] elevations or depressions no evidence of ischemia infarction or pathologic arrhythmia. Medical Decision Making - Medical Decision Making Was pt. sent in by a medical professional or institution (, PA, TILTROTOR CREW CHIEF, urgent care, hospital, or [facility]...) When possible be specific @ -No Did you speak to anyone other than the patient for history (EMS, parent, family, police, friend...)? What history was obtained from this source @ -No Did you review nursing and triage notes (agree or disagree)? Why? @ -I reviewed and agree with nursing and triage notes Were old charts reviewed (outside hosp., previous admission, EMS record, old EKG, old radiological studies, urgent care reports/EKG's, [facility] records)? Report findings @ -Visit was reviewed Differential Diagnosis (chest pain, altered mental status, abdominal pain women, abdominal pain men, vaginal bleeding, weakness, fever, dyspnea, syncope, headache, dizziness, GI bleed, back pain, seizure, CVA, palpatations, mental health)? @ -Differential Dyspnea: Coronary syndrome, arrhythmia, tamponade, asthma, COPD, pulmonary embolism, pneumonia, pneumothorax, pulmonary effusion, anaphylaxis, diabetic ketoacidosis, flailed chest, pulmonary contusion, diaphragmatic rupture, anemia, neuromuscular, this is not meant to be an all-inclusive list. EKG interpreted by me (3pts min.). @ -As above X-rays interpreted by me (1pt min.). @ -No focal consolidations CT interpreted by me (1pt min.). @ -None done U/S interpreted by me (1pt. min.). @ -None done What testing was considered but not performed or refused? (CT, X-rays, U/S, labs)? Why? @ -None What meds were considered but not given or refused? Why? @ -Tamiflu was considered but patient has 4 days of symptoms and is outside of the window Did you discuss the management of the patient with other professionals (professionals i.e. , PA, TILTROTOR CREW CHIEF, lab, RT, psych nurse, social services specialist, internet media planner, teacher, accounting officer, case repairer)? Give summary @ -No Was smoking cessation discussed for >3mins.? @ -No Was critical care preformed (if so, how long)? @ -No Were there social determinants of health that impacted care today? How? (Homelessness, low income, unemployed, alcoholism, drug addiction, transportation, low edu. Level, literacy, decrease access to med. care, care home, rehab)? @ -Lack of transportation Was there de-escalation of care discussed even if they declined (Discuss DNR or withdrawal of care, Hospice)? DNR status @ -No What co-morbidities impacted this encounter? (DM, HTN, Smoking, COPD, CAD, Cancer, CVA, ARF, Chemo, Hep., AIDS, mental health diagnosis, sleep apnea, morbid obesity)? @ -None Was patient admitted / discharged? Hospital course, mention meds given and route, prescriptions, significant lab abnormalities, going to OR and other pertinent info. @ -Discharged Patient was seen and evaluated, history was obtained from the patient Physical Exam GENERAL: Patient is well-developed and well-nourished. Patient is nontoxic and well- hydrated and is in no distress. HENT: Normocephalic, Atraumatic. EYES: PERRL, EOMI PULMONARY: Unlabored respirations. No audible rales rhonchi or wheezing was noted. CARDIOVASCULAR: There is a regular rate and rhythm without any murmurs gallops or rubs. ABDOMEN: Soft and nontender with normal bowel sounds. SKIN: Skin is clear with no lesions or rashes and otherwise unremarkable. : Deferred NEUROLOGIC: Patient is alert and oriented x3. Moving all extremities spontaneously MUSCULOSKELETAL: Normal extremities with adequate strength and full range of motion. No lower extremity swelling or edema. No calf tenderness. PSYCHIATRIC: Normal psychiatric evaluation. Revealed the patient with some expiratory wheezing, vital signs stable not requiring any oxygen supplementation. Chest x- ray and viral swabs were obtained. Patient is positive for influenza A. Chest x-ray is unremarkable. Patient has had an symptoms for a number of days he is outside of the window of treatment with Tamiflu. She will be prescribed Tessalon Perles for symptomatic management. The importance of managing fever with antipyretics and staying hydrated using her breathing treatments was discussed. Patient was discharged home. Undiagnosed new problem with uncertain prognosis? @ -No Drug Therapy requiring intensive monitoring for toxicity (Heparin, Nitro, Insulin, Cardizem)? @ -No Were any procedures done? @ -No Diagnosis/symptom? @ -Influenza A Acute, or Chronic, or Acute on Chronic? @ -Default Uncomplicated (without systemic symptoms) or Complicated (systemic symptoms)? @ -Default Side effects of treatment? @ -No Exacerbation, Progression, or Severe Exacerbation? @ -No Poses a threat to life or bodily function? How? (Chest pain, [place], [place], pneumonia, PE, COPD, DKA, ARF, appy, cholecystitis, CVA, Diverticulitis, Homicidal, Suicidal, threat to staff... and all critical care pts) @ -No - Lab Data Lab Results 06/21/24 Range/Units 06:30 Influenza Type A (PCR) Detected A (Not Detectd) Influenza Type B (PCR) Not Detected (Not Detectd) RSV (PCR) Not Detected (Not Detectd) SARS-CoV-2 (PCR) Not Detected (Not Detectd) Disposition Clinical Impression: Influenza Disposition: HOME SELF-CARE Condition: Stable Instructions (If sedation given, give patient instructions): Influenza (DC) Prescriptions: Benzonatate [Tessalon Perle] 200 mg PO TID #12 cap Is patient prescribed a controlled substance at d/c from ED?: No Referrals: None,Stated [Primary Care Provider] - 1-2 days
[2024-06-21] MEDS: methylPREDNISolone SOD SUCCIN 125 MG in SODIUM CHLORIDE 0.9% 100 ML IVPB STA (06:33)
[2024-06-21] MEDS: methylPREDNISolone SOD SUCCI 125 MG/2 ML VIAL IV STA (06:35)
[2024-06-21] MEDS: KETOROLAC 15 MG/ML 1 ML VIAL IVP STA (06:35)
[2024-06-21 06:36] VITALS: TEMP 99
[2024-06-21] MEDS: IPRATROPIUM-ALBUTEROL 3 ML NEB INHALATION STA (06:39)
--- NOTE | 2024-06-21 07:10 | XR ---
EXAMINATION TYPE: XR chest 1V DATE OF EXAM: 06/21/2024 COMPARISON: 06/20/2024 CLINICAL INDICATION: Female, 58 years old with history of cough; TECHNIQUE: Single frontal view of the chest is obtained. FINDINGS: Heart is upper limits of normal in size. Rightward patient rotation ultrasound and normal cardiac and mediastinal contours. Aorta and pulmonary vasculature within normal limits. Mild intersti tial prominence without consolidation or pleural effusion. IMPRESSION: Correlate for bronchitis or asthma. Otherwise, no acute process seen. [facility], , 06/21/2024 7:08 AM
[2024-06-21 08:05] VITALS: BP 161/90; PULSE 80; RESP 18
== END 2024-06-21 08:06 | disposition home or self-care (01) ==
LOC: EC 06:20
DX: J11.1 Influenza due to unidentified influenza virus with other respiratory manifestations (principal); F17.200 Nicotine dependence, unspecified, uncomplicated; Z88.0 Allergy status to penicillin; Z88.6 Allergy status to analgesic agent; Z88.8 Allergy status to other drugs, medicaments and biological substances
CPT/HCPCS: 94640; 87636; 71045; 99285; 96374; 96375; J1885; J2919

== ENCOUNTER 2024-07-03 20:17 | Emergency (ER) | payer OTHER ==
[2024-07-03 21:39] LABS: Basophils % (A) 0 %; Eosinophils # (A) 0.1 k/uL (0-0.7); Eosinophils % (A) 0 %; HCT 46.2 % (34.0-46.0); HGB 15.7 gm/dL (11.4-16.0); Lymphocytes # (A) 1.6 k/uL (1.0-4.8); Lymphocytes % (A) 14 %; MCHC 34.1 g/dL (31.0-37.0); MCV 96.9 fL (80.0-100.0); Mean Platelet Volume 7.1; Monocytes # (A) 0.9 k/uL (0-1.0); Monocytes % (A) 7 %; Neutrophils % (A) 77 %; Platelet Count 241 k/uL (150-450); RBC 4.77 m/uL (3.80-5.40); RDW 13.8 % (11.5-15.5); WBC 11.7 k/uL (3.8-10.6)
[2024-07-03 21:49] LABS: INR 0.9 (<1.2); Prothrombin Time 10.3 sec (10.0-12.5)
--- NOTE | 2024-07-03 21:49 | XR ---
EXAMINATION TYPE: XR chest 2V DATE OF EXAM: 07/03/2024 9:42 PM CLINICAL INDICATION:Female, 58 years old with history of difficulty breathing; [facility] COMPARISON: Chest radiograph 06/21/2024 TECHNIQUE: XR chest 2V Frontal view of the chest. FINDINGS: Lungs/Pleura: There is no evidence of pleural effusion, focal consolidation, or pneumothorax. Pulmonary vascularity: Unremarkable. Heart/mediastinum: Cardiomediastinal silhouette is unremarkable. Musculoskeletal: No acute osseous pathology. Other findings: None IMPRESSION: No acute cardiopulmonary disease/process. [facility], , 07/03/2024 9:47 PM
[2024-07-03 22:14] LABS: ALT 58 U/L (4-34); AST 80 U/L (14-36); African American GFR (CKD) >90 (>60 ml/min/1.73 sqM); Alkaline Phosphatase 90 U/L (38-126); Anion Gap 18 mmol/L; Blood Urea Nitrogen 2 mg/dL (7-17); Calcium 10.1 mg/dL (8.4-10.2); Carbon Dioxide 17 mmol/L (22-30); Chloride 102 mmol/L (98-107); Glucose 109 mg/dL (74-99); Non-African American GFR(CKD) >90 (>60 ml/min/1.73 sqM); Potassium 3.8 mmol/L (3.5-5.1); Sodium 137 mmol/L (137-145); Total Bilirubin 0.7 mg/dL (0.2-1.3); Total Protein 7.7 g/dL (6.3-8.2)
--- NOTE | 2024-07-03 22:34 | ED ---
General Adult HPI - General Chief complaint: Shortness of Breath Stated complaint: LESA Time Seen by Provider: 07/03/24 22:34 Source: patient Mode of arrival: EMS - History of Present Illness Initial comments: 58-year-old female with history of COPD presenting with chief complaint of shortness of breath. States that this has been ongoing for few days. She admits to cough and congestion. She admits to some chest soreness with coughing. She admits to some nausea and vomiting and diarrhea as well. No abdominal pain. Admits to subjective fever, has not taken her temperature. No hematochezia or melena. She is a current smoker, she smokes cigarettes and marijuana daily. - Related Data Home Medications Medication Instructions Recorded Confirmed levETIRAcetam [Keppra] 500 mg PO BID 02/15/24 06/17/24 Albuterol Inhaler [Ventolin Hfa 2 puff INHALATION RT-Q4H PRN 06/17/24 06/17/24 Inhaler] Previous Rx's Medication Instructions Recorded Acetaminophen Tab [Tylenol] 650 mg PO Q6HR PRN tab 06/17/24 Aspirin 81 mg PO DAILY #30 tab 06/17/24 Atorvastatin [Lipitor] 40 mg PO HS #30 tab 06/17/24 Calcium Carbonate [Tums] 1,000 mg PO Q4HR PRN tab 06/17/24 Famotidine [Pepcid] 20 mg PO BID #60 tab 06/17/24 Benzonatate [Tessalon Perle] 200 mg PO TID #12 cap 06/21/24 Albuterol Sulfate [Albuterol 1 puff PO Q4-6H PRN #8.5 gm 07/04/24 Sulfate Hfa] methylPREDNISolone Dose Pack 4 mg PO DIRECTED #1 packet 07/04/24 [Medrol Dose Pack] Allergies Allergy/AdvReac Type Severity Reaction Status Date / Time Penicillins Allergy Rash/Hives/Swelling Verified 07/03/24 20:45 all over body NSAIDS (Non-Steroidal AdvReac Unknown upset Verified 07/03/24 20:45 Anti-Inflamma stomach sertraline HCl [From Zoloft] AdvReac Suicidal/Ag Verified 07/03/24 20:45 ression Review of Systems ROS Statement: Those systems with pertinent positive or pertinent negative responses have been documented in the HPI. ROS Other: All systems not noted in ROS Statement are negative. Past Medical History Past Medical History: Cancer, COPD, Liver Disease, Myocardial Infarction ([place]), Seizure Disorder, Vascular Disorder Additional Past Medical History / Comment(s): constpation, last bowel movement 4 days ago, feeling bloated,feeling of fullness, and abdominal pain, feels hungry then over eats then vomits to feel better, LAST SEIZURE - JANUARY 2021, "broken heart syndrome"., elevated liver enzymes, "dislocated disks", hx cervical cancer Last Myocardial Infarction Date:: 2019 History of Any Multi-Drug Resistant Organisms: None Reported Past Surgical History: Section, Heart Catheterization, Tubal Ligation Additional Past Surgical History / Comment(s): ORIF rt ankle/hardware later removed, exploratory lap, PAIN CLINIC PROCEDURE, BILAT CATARACTS REMOVED WITH LENS IMPLANTS, procedure to open a vein in left leg-couldn't confirm which leg, partial amputation rt hand middle finger, "procedure to remove cervical cancer" Past Anesthesia/Blood Transfusion Reactions: No Reported Reaction Past Psychological History: Anxiety, Bipolar, Depression, PTSD Smoking Status: Current every day smoker Past Alcohol Use History: Abuse, Daily, Heavy Past Drug Use History: Marijuana - Past Family History Father Family Medical History: Cancer, Prostate Disorder, Pulmonary Embolus Sister(s) Family Medical History: Cancer Brother(s) Family Medical History: Cancer Additional Family Medical History / Comment(s): colon and bladder General Exam - General Exam Comments Initial Comments: Visual Physical Exam Vital signs reviewed General: Well-appearing, nontoxic, no acute distress. Head: Normocephalic, atraumatic Eyes: PERRLA, EOMI ENT: Airway patent Chest: Nonlabored breathing Skin: No visual rash, normal skin tone Neuro: Alert and oriented 3 Musculoskeletal: No gross abnormalities Limitations: no limitations General appearance: alert, in no apparent distress Head exam: Present: atraumatic, normocephalic, normal inspection Eye exam: Present: normal appearance, EOMI Neck exam: Present: normal inspection. Absent: meningismus Respiratory exam: Present: wheezes. Absent: respiratory distress, rales, rhonchi, stridor Cardiovascular Exam: Present: regular rate, normal rhythm, normal heart sounds. Absent: systolic murmur, diastolic murmur, rubs, gallop, clicks Neurological exam: Present: alert, oriented X3 Psychiatric exam: Present: normal affect, normal mood Skin exam: Present: warm, dry Course Vital Signs 07/03/24 07/03/24 07/04/24 20:41 23:33 00:13 Temperature 99.1 F 99.0 F Pulse Rate 89 112 H 110 H Respiratory 18 22 Rate Blood Pressure 169/93 169/91 O2 Sat by Pulse 98 98 Oximetry 07/04/24 00:23 Temperature Pulse Rate 112 H Respiratory Rate Blood Pressure O2 Sat by Pulse Oximetry Medical Decision Making - Medical Decision Making I performed the quick note portion of this visit, electronically signed Adama Calvillo PA-C Was pt. sent in by a medical professional or institution (, [facility], [employer], urgent care, hospital, or assisted...) When possible be specific @ -No Did you speak to anyone other than the patient for history (EMS, parent, family, police, friend...)? What history was obtained from this source @ -No Did you review nursing and triage notes (agree or disagree)? Why? @ -I reviewed and agree with nursing and triage notes Were old charts reviewed (outside hosp., previous admission, EMS record, old EKG, old radiological studies, urgent care reports/EKG's, assisted records)? Report findings @ -No old charts were reviewed Differential Diagnosis (chest pain, altered mental status, abdominal pain women, abdominal pain men, vaginal bleeding, weakness, fever, dyspnea, syncope, headache, dizziness, GI bleed, back pain, seizure, CVA, palpatations, mental health, musculoskeletal)? @ -MDM Differential Dyspnea: Coronary syndrome, arrhythmia, tamponade, asthma, COPD, pulmonary embolism, pneumonia, pneumothorax, pulmonary effusion, anaphylaxis, diabetic ketoacidosis, flailed chest, pulmonary contusion, diaphragmatic rupture, anemia, neuromuscular this is not meant to be an all-inclusive list. EKG interpreted by me (3pts min.). @ -EKG shows sinus rhythm ventricular rate 83. OH interval 158. QRS 93. QT 363. QTc 403. X-rays interpreted by me (1pt min.). @ -Chest x-ray shows no acute process CT interpreted by me (1pt min.). @ -None done U/S interpreted by me (1pt. min.). @ -None done What testing was considered but not performed or refused? (CT, X-rays, U/S, labs)? Why? @ -None What meds were considered but not given or refused? Why? @ -None Did you discuss the management of the patient with other professionals (professionals i.e. , PA, DIAMOND EXPERT, lab, RT, psych nurse, social organization professor, rubber goods supervisor, teacher, deck officer, bilingual case manager)? Give summary @ -No Was smoking cessation discussed for >3mins.? @ -No Was critical care preformed (if so, how long)? @ -No Were there social determinants of health that impacted care today? How? (Homelessness, low income, unemployed, alcoholism, drug addiction, transportation, low edu. Level, literacy, decrease access to med. care, snf, rehab)? @ -No Was there de-escalation of care discussed even if they declined (Discuss DNR or withdrawal of care, Hospice)? DNR status @ -No What co-morbidities impacted this encounter? (DM, HTN, Smoking, COPD, CAD, Cancer, CVA, ARF, Chemo, Hep., AIDS, mental health diagnosis, sleep apnea, morbid obesity)? @ -COPD, smoker Was patient admitted / discharged? Hospital course, mention meds given and route, prescriptions, significant lab abnormalities, going to OR and other pertinent info. @ -58-year-old female presenting with chief complaint of breath. Patient has cough. History of coughing. Initiated by triage. WBC 11.7. Carbon dioxide 17 anion gap 18, patient is hyperventilating, seems more anxious. On exam there are very faint expiratory wheezes. 98% on room air, patient was placed on oxygen earlier for comfort. Solu-Medrol DuoNeb. Chest x-ray shows no acute process. Lactic acid 2.6, patient is receiving IV fluids. Mild transaminitis, patient is a daily drinker. She is alert and oriented x 3. On reassessment lung sounds have improved. She is resting comfortably showing no signs of d istress. Patient is educated on today's findings. She will be treated for COPD exacerbation with Medrol Dosepak and albuterol at home. Follow-up with PCP. Report back to ER with any new or worsening symptoms. Discussed return parameters and answered all questions. Patient conveyed verbal understanding and agreed to the plan. I discussed this case in detail with my attending Dr. Puga Undiagnosed new problem with uncertain prognosis? @ -No Drug Therapy requiring intensive monitoring for toxicity (Heparin, Nitro, Insulin, Cardizem)? @ -No Were any procedures done? @ -No Diagnosis/symptom? @ -COPD exacerbation Acute, or Chronic, or Acute on Chronic? @ -Acute Uncomplicated (without systemic symptoms) or Complicated (systemic symptoms)? @ -uncomplicated Side effects of treatment? @ -No Exacerbation, Progression, or Severe Exacerbation? @ -Exacerbation Poses a threat to life or bodily function? How? (Chest pain, [place], [place], pneumonia, PE, COPD, DKA, ARF, appy, cholecystitis, CVA, Diverticulitis, Homicidal, Suicidal, threat to staff... and all critical care pts) @ -Low likelihood - Lab Data Result diagrams: 07/03/24 21:07 07/03/24 21:07 Lab Results 07/03/24 07/03/24 07/03/24 Range/Units 21:07 21:07 21:07 WBC 11.7 H (3.8-10.6) k/uL RBC 4.77 (3.80-5.40) m/uL Hgb 15.7 (11.4-16.0) gm/dL Hct 46.2 H (34.0-46.0) % MCV 96.9 (80.0-100.0) fL MCH 33.0 (25.0-35.0) pg MCHC 34.1 (31.0-37.0) g/dL RDW 13.8 (11.5-15.5) % Plt Count 241 (150-450) k/uL MPV 7.1 Neutrophils % 77 % Lymphocytes % 14 % Monocytes % 7 % Eosinophils % 0 % Basophils % 0 % Neutrophils # 9.0 H (1.3-7.7) k/uL Lymphocytes # 1.6 (1.0-4.8) k/uL Monocytes # 0.9 (0-1.0) k/uL Eosinophils # 0.1 (0-0.7) k/uL Basophils # 0.0 (0-0.2) k/uL PT 10.3 (10.0-12.5) sec INR 0.9 (<1.2) APTT 23.0 (22.0-30.0) sec Sodium 137 (137-145) mmol/L Potassium 3.8 (3.5-5.1) mmol/L Chloride 102 (98-107) mmol/L Carbon Dioxide 17 L (22-30) mmol/L Anion Gap 18 mmol/L BUN 2 L (7-17) mg/dL Creatinine 0.47 L (0.52-1.04) mg/dL Est GFR (CKD-EPI)AfAm >90 (>60 ml/min/1.73 sqM) Est GFR (CKD-EPI)NonAf >90 (>60 ml/min/1.73 sqM) Glucose 109 H (74-99) mg/dL Plasma Lactic Acid Anthony (0.7-2.0) mmol/L Calcium 10.1 (8.4-10.2) mg/dL Total Bilirubin 0.7 (0.2-1.3) mg/dL AST 80 H (14-36) U/L ALT 58 H (4-34) U/L Alkaline Phosphatase 90 (38-126) U/L Troponin I (0.000-0.034) ng/mL Total Protein 7.7 (6.3-8.2) g/dL Albumin 5.0 (3.5-5.0) g/dL 07/03/24 07/03/24 Range/Units 21:07 21:07 WBC (3.8-10.6) k/uL RBC (3.80-5.40) m/uL Hgb (11.4-16.0) gm/dL Hct (34.0-46.0) % MCV (80.0-100.0) fL MCH (25.0-35.0) pg MCHC (31.0-37.0) g/dL RDW (11.5-15.5) % Plt Count (150-450) k/uL MPV Neutrophils % % Lymphocytes % % Monocytes % % Eosinophils % % Basophils % % Neutrophils # (1.3-7.7) k/uL Lymphocytes # (1.0-4.8) k/uL Monocytes # (0-1.0) k/uL Eosinophils # (0-0.7) k/uL Basophils # (0-0.2) k/uL PT (10.0-12.5) sec INR (<1.2) APTT (22.0-30.0) sec Sodium (137-145) mmol/L Potassium (3.5-5.1) mmol/L Chloride (98-107) mmol/L Carbon Dioxide (22-30) mmol/L Anion Gap mmol/L BUN (7-17) mg/dL Creatinine (0.52-1.04) mg/dL Est GFR (CKD-EPI)AfAm (>60 ml/min/1.73 sqM) Est GFR (CKD-EPI)NonAf (>60 ml/min/1.73 sqM) Glucose (74-99) mg/dL Plasma Lactic Acid Anthony 2.6 H* (0.7-2.0) mmol/L Calcium (8.4-10.2) mg/dL Total Bilirubin (0.2-1.3) mg/dL AST (14-36) U/L ALT (4-34) U/L Alkaline Phosphatase (38-126) U/L Troponin I <0.012 (0.000-0.034) ng/mL Total Protein (6.3-8.2) g/dL Albumin (3.5-5.0) g/dL Disposition Clinical Impression: COPD (chronic obstructive pulmonary disease) Disposition: HOME SELF-CARE Condition: Good Instructions (If sedation given, give patient instructions): COPD (Chronic Obstructive Pulmonary Disease) (ED) Additional Instructions: With your PCP. Report back to ER with any new or worsening symptoms. You need to stop smoking, this is making your COPD worse and can lead to long-term health consequences. Prescriptions: Albuterol Sulfate [Albuterol Sulfate Hfa] 1 puff PO Q4-6H PRN #8.5 gm PRN Reason: Shortness Of Breath methylPREDNISolone Dose Pack [Medrol Dose Pack] 4 mg PO DIRECTED #1 packet Is patient prescribed a controlled substance at d/c from ED?: No Referrals: None,Stated [Primary Care Provider] - 1-2 days Time of Disposition: 00:36
[2024-07-03 23:37] VITALS: TEMP 99
[2024-07-03] MEDS: ONDANSETRON 4 MG/2 ML VIAL IVP STA (23:56)
[2024-07-03] MEDS: SODIUM CHLORIDE 0.9% 1,000 ML IV ONE (23:56)
[2024-07-03] MEDS: DEXAMETHASONE SOD PHOSPHATE 10 MG/ML 1 ML VIAL IVP STA (23:57)
[2024-07-04] MEDS: IPRATROPIUM-ALBUTEROL 3 ML NEB INHALATION STA (00:14)
[2024-07-04] MEDS: ACETAMINOPHEN TAB 325 MG TAB PO STA (00:54)
[2024-07-04 00:55] VITALS: PULSE 100; RESP 18
[2024-07-04] MEDS: KETOROLAC 15 MG/ML 1 ML VIAL IVP STA (00:55)
[2024-07-04 00:58] VITALS: BP 179/89
== END 2024-07-04 01:09 | disposition home or self-care (01) ==
LOC: EC 20:17
DX: J44.1 Chronic obstructive pulmonary disease with (acute) exacerbation (principal); F17.200 Nicotine dependence, unspecified, uncomplicated; Z88.0 Allergy status to penicillin; Z88.6 Allergy status to analgesic agent; Z88.8 Allergy status to other drugs, medicaments and biological substances
CPT/HCPCS: 36415; 93005; 80053; 83605; 84484; 85025; 85610; 85730; 71046; 99285; 96374; 96375 ×2; 96361; J1100; J2405; 94640

== ENCOUNTER 2024-07-05 01:12 | Emergency (ER) | payer OTHER ==
[2024-07-05] MEDS ORDERED: NITROGLYCERIN SL TABS 0.4 MG TAB SUBLINGUAL PRN (02:08)
[2024-07-05] MEDS: ACETAMINOPHEN TAB 500 MG TAB PO STA (02:17)
[2024-07-05] MEDS: ASPIRIN 81 MG PO STA (02:17)
[2024-07-05] MEDS: predniSONE 20 MG TAB PO STA (02:18)
[2024-07-05] MEDS: SODIUM CHLORIDE 0.9% 500 ML 500 ML IV STA (02:20)
[2024-07-05] MEDS: IPRATROPIUM 0.5 MG/2.5 ML NEBU INHALATION STA (02:25)
[2024-07-05 02:26] LABS: Basophils % (A) 0 %; Eosinophils % (A) 0 %; HGB 15.2 gm/dL (11.4-16.0); Lymphocytes # (A) 1.6 k/uL (1.0-4.8); Lymphocytes % (A) 12 %; MCH 33.2 pg (25.0-35.0); MCHC 34.5 g/dL (31.0-37.0); MCV 96.3 fL (80.0-100.0); Mean Platelet Volume 8.7; Monocytes # (A) 1.5 k/uL (0-1.0); Monocytes % (A) 11 %; Neutrophils # (A) 10.1 k/uL (1.3-7.7); Neutrophils % (A) 75 %; Platelet Count 255 k/uL (150-450); RBC 4.57 m/uL (3.80-5.40); RDW 14.1 % (11.5-15.5); WBC 13.4 k/uL (3.8-10.6)
[2024-07-05] MEDS: ALBUTEROL NEBULIZED 2.5 MG/3 ML INHALATION STA (02:26)
[2024-07-05 02:29] LABS: ALT 46 U/L (4-34); AST 53 U/L (14-36); African American GFR (CKD) >90 (>60 ml/min/1.73 sqM); Albumin 5.2 g/dL (3.5-5.0); Alkaline Phosphatase 90 U/L (38-126); Anion Gap 15 mmol/L; Blood Urea Nitrogen 3 mg/dL (7-17); Calcium 10.2 mg/dL (8.4-10.2); Carbon Dioxide 18 mmol/L (22-30); Chloride 101 mmol/L (98-107); Glucose 134 mg/dL (74-99); Non-African American GFR(CKD) >90 (>60 ml/min/1.73 sqM); Potassium 3.8 mmol/L (3.5-5.1); Sodium 134 mmol/L (137-145); Total Bilirubin 1.3 mg/dL (0.2-1.3)
[2024-07-05 02:32] LABS: INR 0.9 (<1.2); Partial Thromboplastin Time 22.8 sec (22.0-30.0); Prothrombin Time 10.6 sec (10.0-12.5)
[2024-07-05 02:37] LABS: NT-Pro-B-Type Natriuretic Pept 215 pg/mL
--- NOTE | 2024-07-05 02:39 | ED ---
General Adult HPI - General Chief complaint: Shortness of Breath Stated complaint: LESA Time Seen by Provider: 07/05/24 01:36 Source: EMS Mode of arrival: EMS Limitations: no limitations - History of Present Illness Initial comments: Patient is a 58-year-old female past medical history Takotsubo cardiomyopathy, alcoholism, current smoker presenting today for shortness of breath. Patient states that she has felt short of breath and had substernal chest pain ever since discharge from the hospital earlier this month. Chest pain is the same as it has been since she was admitted previously.. She was seen here yesterday for similar and discharged home on steroids. 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 She is still currently smoking half pack to a pack of cigarettes a day as well as smoking marijuana daily. She states this helps her anxiety. She endorses a cough but is nonproductive of sputum or hemoptysis. Endorses intermittent headache over the last 3 to 4 days, denies any changes in vision, focal numbness, focal weakness slurred speech or strokelike symptoms. Endorses generalized weakness. She did drink 1 beer before coming in this evening. Also requests a refill of her Keppra. - Related Data Home Medications Medication Instructions Recorded Confirmed levETIRAcetam [Keppra] 500 mg PO BID 02/15/24 06/17/24 Albuterol Inhaler [Ventolin Hfa 2 puff INHALATION RT-Q4H PRN 06/17/24 06/17/24 Inhaler] Previous Rx's Medication Instructions Recorded Acetaminophen Tab [Tylenol] 650 mg PO Q6HR PRN tab 06/17/24 Aspirin 81 mg PO DAILY #30 tab 06/17/24 Atorvastatin [Lipitor] 40 mg PO HS #30 tab 06/17/24 Calcium Carbonate [Tums] 1,000 mg PO Q4HR PRN tab 06/17/24 Famotidine [Pepcid] 20 mg PO BID #60 tab 06/17/24 Benzonatate [Tessalon Perle] 200 mg PO TID #12 cap 06/21/24 Albuterol Sulfate [Albuterol 1 puff PO Q4-6H PRN #8.5 gm 07/04/24 Sulfate Hfa] methylPREDNISolone Dose Pack 4 mg PO DIRECTED #1 packet 07/04/24 [Medrol Dose Pack] levETIRAcetam [Keppra] 500 mg PO Q12HR #14 tab 07/05/24 Allergies Allergy/AdvReac Type Severity Reaction Status Date / Time Penicillins Allergy Rash/Hives/Swelling Verified 07/05/24 21:39 all over body NSAIDS (Non-Steroidal AdvReac Unknown upset Verified 07/05/24 21:39 Anti-Inflamma stomach sertraline HCl [From Zoloft] AdvReac Suicidal/Ag Verified 07/05/24 21:39 ression Review of Systems ROS Statement: Those systems with pertinent positive or pertinent negative responses have been documented in the HPI. ROS Other: All systems not noted in ROS Statement are negative. Past Medical History Past Medical History: Cancer, COPD, Liver Disease, Myocardial Infarction (ME), Seizure Disorder, Vascular Disorder Additional Past Medical History / Comment(s): constpation, last bowel movement 4 days ago, feeling bloated,feeling of fullness, and abdominal pain, feels hungry then over eats then vomits to feel better, LAST SEIZURE - JANUARY 2021, "broken heart syndrome"., elevated liver enzymes, "dislocated disks", hx cervical cancer Last Myocardial Infarction Date:: 2019 History of Any Multi-Drug Resistant Organisms: None Reported Past Surgical History: Section, Heart Catheterization, Tubal Ligation Additional Past Surgical History / Comment(s): ORIF rt ankle/hardware later removed, exploratory lap, PAIN CLINIC PROCEDURE, BILAT CATARACTS REMOVED WITH LENS IMPLANTS, procedure to open a vein in left leg-couldn't confirm which leg, partial amputation rt hand middle finger, "procedure to remove cervical cancer" Past Anesthesia/Blood Transfusion Reactions: No Reported Reaction Past Psychological History: Anxiety, Bipolar, Depression, PTSD Smoking Status: Current every day smoker Past Alcohol Use History: Abuse, Daily, Heavy Past Drug Use History: Marijuana - Past Family History Father Family Medical History: Cancer, Prostate Disorder, Pulmonary Embolus Sister(s) Family Medical History: Cancer Brother(s) Family Medical History: Cancer Additional Family Medical History / Comment(s): colon and bladder General Exam - General Exam Comments Initial Comments: PE: CONSTITUTIONAL: No apparent distress, well appearing SKIN: Warm, dry, no jaundice, hives or petechiae EYES: Pupils are equally round, extraocular movements intact without nystagmus, clear conjunctiva, non-icteric sclera HENT: Normocephalic, atraumatic, moist mucus membranes, oropharynx clear without exudates NECK: , Full range of motion, normal appearance PULMONARY: Scant wheezes in the bilateral lower lung bases, otherwise clear to auscultation without rhonchi, or rales, normal excursion, no accessory muscle use and no stridor CARDIOVASCULAR: Regular rate, rhythm, normal S1 and S2. No appreciated murmurs, rubs or gallops. Strong radial pulses with intact distal perfusion. No lower extremity edema GASTROINTESTINAL: Soft, active bowel sounds throughout, non-tender, non- distended, no palpable masses, no rebound or guarding. No hepatosplenomegaly MUSCULOSKELETAL: Extremities have no gross deformity, no edema, redness, or swelling. No calf swelling NEUROLOGIC:_a/o x 3, GCS 15, normal mentation and speech. Moves all extremities x 4 without motor or sensory deficit PSYCHIATRIC:_normal mood and affect, thought process is clear and linear Limitations: no limitations Course Vital Signs 07/05/24 07/05/24 07/05/24 01:18 02:00 02:25 Temperature 97.8 F Pulse Rate 98 75 77 Respiratory 24 20 Rate Blood Pressure 171/111 138/89 O2 Sat by Pulse 98 98 Oximetry 07/05/24 07/05/24 02:54 03:26 Temperature 97.9 F Pulse Rate 96 88 Respiratory 18 Rate Blood Pressure 131/78 O2 Sat by Pulse 98 Oximetry EKG Findings - EKG Comments: EKG Findings:: Sinus rhythm, rate 82 bpm, [place] interval 145 ms QT/QTc 374/413 ms, normal axis, no ST elevations or depressions, No STEMI or arrythmia Compared to EKG performed yesterday, performed on 07/03/2024, no new ST elevations or dep ressions when compared to prior, no new T wave inversions Medical Decision Making - Medical Decision Making Was pt. sent in by a medical professional or institution (, PA, PEOPLESOFT ADMINISTRATOR, urgent care, hospital, or fci...) When possible be specific @ -[No] Did you speak to anyone other than the patient for history (EMS, parent, family, police, friend...)? What history was obtained from this source @ -[No] Did you review nursing and triage notes (agree or disagree)? Why? @ -[I reviewed nursing and triage notes] Were old charts reviewed (outside hosp., previous admission, EMS record, old EKG, old radiological studies, urgent care reports/EKG's, fci records)? Report findings @ -[Medical records reviewed] patient was seen here in the emergency department 1 day ago for similar symptoms, last chest x-ray was on 07/03/2023, showed no acute process Differential Diagnosis (chest pain, altered mental status, abdominal pain women, abdominal pain men, vaginal bleeding, weakness, fever, dyspnea, syncope, headache, dizziness, GI bleed, back pain, seizure, CVA, palpatations, mental health, musculoskeletal)? @Differential Dyspnea: Coronary syndrome, arrhythmia, tamponade, asthma, COPD, pulmonary embolism, pneumonia, pneumothorax, pulmonary effusion, anaphylaxis, diabetic ketoacidosis, flailed chest, pulmonary contusion, diaphragmatic rupture, anemia, neuromuscular, this is not meant to be an all-inclusive list. EKG interpreted by me (3pts min.). @ -[As above] X-rays interpreted by me (1pt min.). No cardiomegaly, consolidations or pleural effusions CT interpreted by me (1pt min.). @ -[None done] U/S interpreted by me (1pt. min.). @ -[None done] What testing was considered but not performed or refused? (CT, X-rays, U/S, l abs)? Why? @ -[None] What meds were considered but not given or refused? Why? @ -[None] Did you discuss the management of the patient with other professionals (professionals i.e. , PA, PEOPLESOFT ADMINISTRATOR, lab, RT, psych nurse, marriage and family social worker, wet end tester, teacher, home school liaison officer, shoe parts caser)? Give summary @ -[No] Was smoking cessation discussed for >3mins.? @ -[No] Was critical care preformed (if so, how long)? @ -[No] Were there social determinants of health that impacted care today? How? (Homelessness, low income, unemployed, alcoholism, drug addiction, transportation, low edu. Level, literacy, decrease access to med. care, care home, rehab)? @ -[No] Was there de-escalation of care discussed even if they declined (Discuss DNR or withdrawal of care, Hospice)? @ -[No] What co-morbidities impacted this encounter? (DM, HTN, Smoking, COPD, CAD, Cancer, CVA, ARF, Chemo, Hep., AIDS, mental health diagnosis, sleep apnea, morbid obesity)? Current smoker, COPD, Takosubo's cardiomyopathy Was patient admitted / discharged? Hospital course, mention meds given and route, prescriptions, significant lab abnormalities, going to OR and other pertinent info. @Discharged -Patient is a 58 yo female hx COPD, Takotsubo's cardiomyopathy presenting today for shortness of breath. Patient with scant wheeze in bilateral lung bases, otherwise physical exam is benign.Blood pressure 171/111 on arrival however this did improve during my assessment when blood pressure was 123 systolic, mildly tachypneic, pulse ox and HR wnl. Of note after collecting initial HPI patient immediately request pain medications, I discussed with her that she would not be receiving morphine or narcotics today. She then immediately asked for medications to help with anxiety. We discussed she will be receiving aspirin, Tylenol and sublingual nitroglycerin for her chest pain and headache. I am very concerned patient is displaying drug seeking behavior. We will give a duoneb and obtain comprehensive labs. A single troponin will be obtained as patient states her chest pain has been ongoing since she was last here, would expect an increased troponin at this point if 2/2 cardiac etiology. Patient appears much are comfortable my assessment, is no longer tachypneic. Lungs are clear to auscultation bilaterally, she was requesting food and was able to tolerate p.o. intake. Request home dose of Keppra and states that she has not been able to fill her Keppra because she cannot get into see a PCP so we will give her 1 week of Keppra. Plan for discharge, patient discharged stable condition. Was able to ambulate with strong steady gait at time of discharge. Undiagnosed new problem with uncertain prognosis? @ -[No] Drug Therapy requiring intensive monitoring for toxicity (Heparin, Nitro, Insulin, Cardizem)? @ -[No] Were any procedures done? @ -[No] Diagnosis/symptom? @ -[default] Acute, or Chronic, or Acute on Chronic? @ -[default] Uncomplicated (without systemic symptoms) or Complicated (systemic symptoms)? @ -[default] Side effects of treatment? @ -[No] Exacerbation, Progression, or Severe Exacerbation? @ -[No] Poses a threat to life or bodily function? How? (Chest pain, USA, ME, pneumonia, PE, COPD, DKA, ARF, appy, cholecystitis, CVA, Diverticulitis, Homicidal, Suicidal, threat to staff... and all critical care pts) @ -[No] - Lab Data Result diagrams: 07/05/24 01:21 07/05/24 01:21 Lab Results 07/05/24 07/05/24 07/05/24 Range/Units 01:21 01: 01:21 WBC 13.4 H (3.8-10.6) k/uL RBC 4.57 (3.80-5.40) m/uL Hgb 15.2 (11.4-16.0) gm/dL Hct 44.0 (34.0-46.0) % MCV 96.3 (80.0-100.0) fL MCH 33.2 (25.0-35.0) pg MCHC 34.5 (31.0-37.0) g/dL RDW 14.1 (11.5-15.5) % Plt Count 255 (150-450) k/uL MPV 8.7 Neutrophils % 75 % Lymphocytes % 12 % Monocytes % 11 % Eosinophils % 0 % Basophils % 0 % Neutrophils # 10.1 H (1.3-7.7) k/uL Lymphocytes # 1.6 (1.0-4.8) k/uL Monocytes # 1.5 H (0-1.0) k/uL Eosinophils # 0.0 (0-0.7) k/uL Basophils # 0.0 (0-0.2) k/uL PT 10.6 (10.0-12.5) sec INR 0.9 (<1.2) APTT 22.8 (22.0-30.0) sec Sodium 134 L (137-145) mmol/L Potassium 3.8 (3.5-5.1) mmol/L Chloride 101 (98-107) mmol/L Carbon Dioxide 18 L (22-30) mmol/L Anion Gap 15 mmol/L BUN 3 L (7-17) mg/dL Creatinine 0.46 L (0.52-1.04) mg/dL Est GFR (CKD-EPI)AfAm >90 (>60 ml/min/1.73 sqM) Est GFR (CKD-EPI)NonAf >90 (>60 ml/min/1.73 sqM) Glucose 134 H (74-99) mg/dL Calcium 10.2 (8.4-10.2) mg/dL Total Bilirubin 1.3 (0.2-1.3) mg/dL AST 53 H (14-36) U/L ALT 46 H (4-34) U/L Alkaline Phosphatase 90 (38-126) U/L Troponin I (0.000-0.034) ng/mL NT-Pro-B Natriuret Pep 215 pg/mL Total Protein 8.0 (6.3-8.2) g/dL Albumin 5.2 H (3.5-5.0) g/dL 07/05/24 Range/Units 01:21 WBC (3.8-10.6) k/uL RBC (3.80-5.40) m/uL Hgb (11.4-16.0) gm/dL Hct (34.0-46.0) % MCV (80.0-100.0) fL MCH (25.0-35.0) pg MCHC (31.0-37.0) g/dL RDW (11.5-15.5) % Plt Count (150-450) k/uL MPV Neutrophils % % Lymphocytes % % Monocytes % % Eosinophils % % Basophils % % Neutrophils # (1.3-7.7) k/uL Lymphocytes # (1.0-4.8) k/uL Monocytes # (0-1.0) k/uL Eosinophils # (0-0.7) k/uL Basophils # (0-0.2) k/uL PT (10.0-12.5) sec INR (<1.2) APTT (22.0-30.0) sec Sodium (137-145) mmol/L Potassium (3.5-5.1) mmol/L Chloride (98-107) mmol/L Carbon Dioxide (22-30) mmol/L Anion Gap mmol/L BUN (7-17) mg/dL Creatinine (0.52-1.04) mg/dL Est GFR (CKD-EPI)AfAm (>60 ml/min/1.73 sqM) Est GFR (CKD-EPI)NonAf (>60 ml/min/1.73 sqM) Glucose (74-99) mg/dL Calcium (8.4-10.2) mg/dL Total Bilirubin (0.2-1.3) mg/dL AST (14-36) U/L ALT (4-34) U/L Alkaline Phosphatase (38-126) U/L Troponin I <0.012 (0.000-0.034) ng/mL NT-Pro-B Natriuret Pep pg/mL Total Protein (6.3-8.2) g/dL Albumin (3.5-5.0) g/dL Disposition Clinical Impression: COPD exacerbation Disposition: HOME SELF-CARE Condition: Stable Additional Instructions: Every disease is a spectrum and a small chance still exists that a serious condition could develop, for this reason, please monitor yourself closely for new, changing or worsening symptoms, symptoms that persist beyond another 72 hours, coughing up blood or thick sputum, fever, inability to tolerate/keep down fluids or your medications, inability to follow up with outpatient providers as instructed and should you experience these symptoms or should you have any further concerns for your wellbeing please return to the ED or call 911 immediately. PLEASE call your primary care physician as soon as possible to arrange / discuss plan for followup appointment. Appointment in the next 1-3 days is strongly encouraged if possible. You need to follow-up with your primary care provider within the next week for further refills of your Keppra. PLEASE let us know here before you leave if there is anything further we can do to be of any assistance. Take care and feel Better! Prescriptions: levETIRAcetam [Keppra] 500 mg PO Q12HR #14 tab Is patient prescribed a controlled substance at d/c from ED?: No Referrals: None,Stated [Primary Care Provider] - 1-2 days
--- NOTE | 2024-07-05 03:00 | XR ---
EXAM: XR Chest, 2 Views CLINICAL HISTORY: ITS.REASON XR Reason: difficulty breathing TECHNIQUE: Frontal and lateral views of the chest. COMPARISON: No relevant prior studies available. FINDINGS: Lungs: No consolidation or mass. Pleural space: No effusion. Heart: No cardiomegaly. Bones/joints: No acute findings. IMPRESSION: No acute cardiopulmonary process.
[2024-07-05 03:27] VITALS: BP 131/78; PULSE 88; RESP 18; TEMP 97.9
[2024-07-05] MEDS: levETIRAcetam 500 MG TAB PO STA (03:46)
== END 2024-07-05 03:52 | disposition home or self-care (01) ==
LOC: EC 01:12
DX: J44.1 Chronic obstructive pulmonary disease with (acute) exacerbation (principal); F17.210 Nicotine dependence, cigarettes, uncomplicated; Z88.0 Allergy status to penicillin; Z88.6 Allergy status to analgesic agent; Z88.8 Allergy status to other drugs, medicaments and biological substances; Z86.79 Personal history of other diseases of the circulatory system
CPT/HCPCS: 36415; 94640; 93005; 83880; 80053; 84484; 85025; 85610; 85730; 71046; 99285; 96360; J7512

== ENCOUNTER 2024-07-05 21:30 | Emergency (ER) | payer OTHER ==
[2024-07-05 21:39] VITALS: TEMP 97.8
--- NOTE | 2024-07-05 22:03 | ED ---
SOB HPI - General Chief Complaint: Shortness of Breath Stated Complaint: SOB Time Seen by Provider: 07/05/24 21:43 Source: EMS Mode of arrival: EMS - History of Present Illness Initial Comments: 58-year-old female presenting with chief complaint of shortness of breath. Patient has a history of COPD, Takotsubo cardiomyopathy, alcoholism, and she is a current everyday smoker of cigarettes and marijuana. Patient states "I do not feel well". She is immediately requesting pain medication, states that she hurts all over. She is tachypneic, no stridor or wheezes. States she is having chest pain, she has been having this chest pain ever since she was recently discharged, she was evaluated by cardiology and cleared for discharge home. Her last echo was back in April 2024 and her last cardiac catheterization was in 2016 showing normal coronary arteries. Patient has had 2 negative troponins over the last 48 hours during her 2 separate visits. She admits to cough. No l ower extremity swelling. No abdominal pain. - Related Data Home Medications Medication Instructions Recorded Confirmed levETIRAcetam [Keppra] 500 mg PO BID 02/15/24 06/17/24 Albuterol Inhaler [Ventolin Hfa 2 puff INHALATION RT-Q4H PRN 06/17/24 06/17/24 Inhaler] Previous Rx's Medication Instructions Recorded Acetaminophen Tab [Tylenol] 650 mg PO Q6HR PRN tab 06/17/24 Aspirin 81 mg PO DAILY #30 tab 06/17/24 Atorvastatin [Lipitor] 40 mg PO HS #30 tab 06/17/24 Calcium Carbonate [Tums] 1,000 mg PO Q4HR PRN tab 06/17/24 Famotidine [Pepcid] 20 mg PO BID #60 tab 06/17/24 Benzonatate [Tessalon Perle] 200 mg PO TID #12 cap 06/21/24 Albuterol Sulfate [Albuterol 1 puff PO Q4-6H PRN #8.5 gm 07/04/24 Sulfate Hfa] methylPREDNISolone Dose Pack 4 mg PO DIRECTED #1 packet 07/04/24 [Medrol Dose Pack] levETIRAcetam [Keppra] 500 mg PO Q12HR #14 tab 07/05/24 Allergies Allergy/AdvReac Type Severity Reaction Status Date / Time Penicillins Allergy Rash/Hives/Swelling Verified 07/05/24 21:39 all over body NSAIDS (Non-Steroidal AdvReac Unknown upset Verified 07/05/24 21:39 Anti-Inflamma stomach sertraline HCl [From Zoloft] AdvReac Suicidal/Ag Verified 07/05/24 21:39 ression Review of Systems ROS Statement: Those systems with pertinent positive or pertinent negative responses have been documented in the HPI. ROS Other: All systems not noted in ROS Statement are negative. Past Medical History Past Medical History: Cancer, COPD, Liver Disease, Myocardial Infarction (MT), Seizure Disorder, Vascular Disorder Additional Past Medical History / Comment(s): constpation, last bowel movement 4 days ago, feeling bloated,feeling of fullness, and abdominal pain, feels hungry then over eats then vomits to feel better, LAST SEIZURE - JANUARY 2021, "broken heart syndrome"., elevated liver enzymes, "dislocated disks", hx cervical cancer Last Myocardial Infarction Date:: 2019 History of Any Multi-Drug Resistant Organisms: None Reported Past Surgical History: Section, Heart Catheterization, Tubal Ligation Additional Past Surgical History / Comment(s): ORIF rt ankle/hardware later removed, exploratory lap, PAIN CLINIC PROCEDURE, BILAT CATARACTS REMOVED WITH LENS IMPLANTS, procedure to open a vein in left leg-couldn't confirm which leg, partial amputation rt hand middle finger, "procedure to remove cervical cancer" Past Anesthesia/Blood Transfusion Reactions: No Reported Reaction Past Psychological History: Anxiety, Bipolar, Depression, PTSD Smoking Status: Current every day smoker Past Alcohol Use History: Abuse, Daily, Heavy Past Drug Use History: Marijuana - Past Family History Father Family Medical History: Cancer, Prostate Disorder, Pulmonary Embolus Sister(s) Family Medical History: Cancer Brother(s) Family Medical History: Cancer Additional Family Medical History / Comment(s): colon and bladder General Exam Limitations: no limitations General appearance: alert, in no apparent distress Head exam: Present: atraumatic, normocephalic, normal inspection Eye exam: Present: normal appearance, EOMI Neck exam: Present: normal inspection. Absent: meningismus Respiratory exam: Present: normal lung sounds bilaterally. Absent: respiratory distress, wheezes, rales, rhonchi, stridor Cardiovascular Exam: Present: regular rate, normal rhythm, normal heart sounds. Absent: systolic murmur, diastolic murmur, rubs, gallop, clicks Extremities exam: Absent: pedal edema Neurological exam: Present: alert, oriented X3 Psychiatric exam: Present: normal affect, normal mood Skin exam: Present: warm, dry, normal color Course Vital Signs 07/05/24 07/05/24 07/06/24 21:32 23:01 02:29 Temperature 97.8 F Pulse Rate 93 66 74 Respiratory 24 15 16 Rate Blood Pressure 150/96 128/85 113/76 O2 Sat by Pulse 97 97 97 Oximetry Medical Decision Making - Medical Decision Making EKG shows sinus rhythm ventricular rate 73. PA interval 154. QRS is 96. QT 390. QTc 416. ST deviation. No acute changes from previous EKG Was pt. sent in by a medical professional or institution ([facility], [facility], urgent care, hospital, or senior care...) When possible be specific @ -No Did you speak to anyone other than the patient for history (EMS, parent, family, police, friend...)? What history was obtained from this source @ -No Did you review nursing and triage notes (agree or disagree)? Why? @ -I reviewed and agree with nursing and triage notes Were old charts reviewed (outside hosp., previous admission, EMS record, old EKG, old radiological studies, urgent care reports/EKG's, senior care records)? Report findings @ -Reviewed the patient's last 2 visits in the last 48 hours Differential Diagnosis (chest pain, altered mental status, abdominal pain women, abdominal pain men, vaginal bleeding, weakness, fever, dyspnea, syncope, headache, dizziness, GI bleed, back pain, seizure, CVA, palpatations, mental health, musculoskeletal)? @ -MDM Differential Dyspnea: Coronary syndrome, arrhythmia, tamponade, asthma, COPD, pulmonary embolism, pneumonia, pneumothorax, pulmonary effusion, anaphylaxis, diabetic ketoacidosis, flailed chest, pulmonary contusion, diaphragmatic rupture, anemia, neuromuscular this is not meant to be an all-inclusive list. EKG interpreted by me (3pts min.). @ -As above X-rays interpreted by me (1pt min.). @ -None done CT interpreted by me (1pt min.). @ -None done U/S interpreted by me (1pt. min.). @ -None done What testing was considered but not performed or refused? (CT, X-rays, U/S, labs)? Why? @ -None What meds were considered but not given or refused? Why? @ -None Did you discuss the management of the patient with other professionals (professionals i.e. , PA, [facility], lab, RT, psych nurse, social worker clinical, shearer operator, teacher, investigation officer, caser shoe parts)? Give summary @ -No Was smoking cessation discussed for >3mins.? @ -No Was critical care preformed (if so, how long)? @ -No Were there social determinants of health that impacted care today? How? (Ho melessness, low income, unemployed, alcoholism, drug addiction, transportation, low edu. Level, literacy, decrease access to med. care, alf, rehab)? @ -No Was there de-escalation of care discussed even if they declined (Discuss DNR or withdrawal of care, Hospice)? DNR status @ -No What co-morbidities impacted this encounter? (DM, HTN, Smoking, COPD, CAD, Cancer, CVA, ARF, Chemo, Hep., AIDS, mental health diagnosis, sleep apnea, morbid obesity)? @ -None Was patient admitted / discharged? Hospital course, mention meds given and route, prescriptions, significant lab abnormalities, going to OR and other pertinent info. @ -58-year-old female with history of COPD, current smoker presenting with chief complaint of dyspnea. Patient has been here 2 other times in the last 48 hours. History and physical examination are conducted. Heart and lungs are clear to auscultation. Patient is immediately asking for pain medication. She had normal chest x-ray less than 24 hours ago, we will not repeat a chest x-ray today. Patient has negative troponins x 2 here in the ER. Vital signs are stab le and she is showing no signs of distress. She is resting comfortably on reexamination. She is educated on today's findings. She is encouraged to follow-up with PCP and cardiology. Report back to ER with any new or worsening symptoms. Discussed return parameters and answered all questions. Patient conveyed verbal understanding and agreed to the plan. I discussed this case in detail with my attending . Undiagnosed new problem with uncertain prognosis? @ -No Drug Therapy requiring intensive monitoring for toxicity (Heparin, Nitro, Insulin, Cardizem)? @ -No Were any procedures done? @ -No Diagnosis/symptom? @ -Shortness of breath, anxiety Acute, or Chronic, or Acute on Chronic? @ -Acute Uncomplicated (without systemic symptoms) or Complicated (systemic symptoms)? @ -Uncomplicated Side effects of treatment? @ -No Exacerbation, Progression, or Severe Exacerbation? @ -No Poses a threat to life or bodily function? How? (Chest pain, USA, MT, pneumonia, PE, COPD, DKA, ARF, appy, cholecystitis, CVA, Diverticulitis, Homicidal, Suicidal, threat to staff... and all critical care pts) @ -Unlikely - Lab Data Result diagrams: 07/05/24 21:54 07/05/24 21:54 Lab Results 07/05/24 07/05/24 07/05/24 Range/Units 21:54 21:54 21:54 WBC 10.9 H (3.8-10.6) k/uL RBC 4.28 (3.80-5.40) m/uL Hgb 14.3 (11.4-16.0) gm/dL Hct 41.1 (34.0-46.0) % MCV 96.2 (80.0-100.0) fL MCH 33.4 (25.0-35.0) pg MCHC 34.7 (31.0-37.0) g/dL RDW 13.8 (11.5-15.5) % Plt Count 215 (150-450) k/uL MPV 7.7 Neutrophils % 67 % Lymphocytes % 18 % Monocytes % 13 % Eosinophils % 0 % Basophils % 0 % Neutrophils # 7.3 (1.3-7.7) k/uL Lymphocytes # 2.0 (1.0-4.8) k/uL Monocytes # 1.4 H (0-1.0) k/uL Eosinophils # 0.0 (0-0.7) k/uL Basophils # 0.0 (0-0.2) k/uL PT 10.9 (10.0-12.5) sec INR 1.0 (<1.2) APTT 21.7 L (22.0-30.0) sec Sodium 134 L (137-145) mmol/L Potassium 4.9 (3.5-5.1) mmol/L Chloride 104 (98-107) mmol/L Carbon Dioxide 19 L (22-30) mmol/L Anion Gap 11 mmol/L BUN 8 (7-17) mg/dL Creatinine 0.53 (0.52-1.04) mg/dL Est GFR (CKD-EPI)AfAm >90 (>60 ml/min/1.73 sqM) Est GFR (CKD-EPI)NonAf >90 (>60 ml/min/1.73 sqM) Glucose 85 (74-99) mg/dL Calcium 8.8 (8.4-10.2) mg/dL Total Bilirubin 1.3 (0.2-1.3) mg/dL AST 49 H (14-36) U/L ALT 38 H (4-34) U/L Alkaline Phosphatase 45 (38-126) U/L Troponin I (0.000-0.034) ng/mL Total Protein 7.0 (6.3-8.2) g/dL Albumin 4.5 (3.5-5.0) g/dL 07/05/24 07/06/24 Range/Units 21:54 00:59 WBC (3.8-10.6) k/uL RBC (3.80-5.40) m/uL Hgb (11.4-16.0) gm/dL Hct (34.0-46.0) % MCV (80.0-100.0) fL MCH (25.0-35.0) pg MCHC (31.0-37.0) g/dL RDW (11.5-15.5) % Plt Count (150-450) k/uL MPV Neutrophils % % Lymphocytes % % Monocytes % % Eosinophils % % Basophils % % Neutrophils # (1.3-7.7) k/uL Lymphocytes # (1.0-4.8) k/uL Monocytes # (0-1.0) k/uL Eosinophils # (0-0.7) k/uL Basophils # (0-0.2) k/uL PT (10.0-12.5) sec INR (<1.2) APTT (22.0-30.0) sec Sodium (137-145) mmol/L Potassium (3.5-5.1) mmol/L Chloride (98-107) mmol/L Carbon Dioxide (22-30) mmol/L Anion Gap mmol/L BUN (7-17) mg/dL Creatinine (0.52-1.04) mg/dL Est GFR (CKD-EPI)AfAm (>60 ml/min/1.73 sqM) Est GFR (CKD-EPI)NonAf (>60 ml/min/1.73 sqM) Glucose (74-99) mg/dL Calcium (8.4-10.2) mg/dL Total Bilirubin (0.2-1.3) mg/dL AST (14-36) U/L ALT (4-34) U/L Alkaline Phosphatase (38-126) U/L Troponin I 0.016 0.018 (0.000-0.034) ng/mL Total Protein (6.3-8.2) g/dL Albumin (3.5-5.0) g/dL Disposition Clinical Impression: Anxiety Disposition: HOME SELF-CARE Condition: Good Instructions (If sedation given, give patient instructions): Dyspnea (ED), Anxiety (ED) Additional Instructions: Follow-up with PCP and programming manager. Report back to ER with any new or wor sening symptoms. Is patient prescribed a controlled substance at d/c from ED?: No Referrals: None,Stated [Primary Care Provider] - 1-2 days Henny Angel MD [STAFF PHYSICIAN] - 1-2 days Yandel Falk MD [STAFF PHYSICIAN] - 1-2 days Time of Disposition: 02:11
[2024-07-05 22:13] LABS: Basophils % (A) 0 %; Eosinophils % (A) 0 %; HCT 41.1 % (34.0-46.0); HGB 14.3 gm/dL (11.4-16.0); Lymphocytes % (A) 18 %; MCH 33.4 pg (25.0-35.0); MCHC 34.7 g/dL (31.0-37.0); MCV 96.2 fL (80.0-100.0); Mean Platelet Volume 7.7; Monocytes # (A) 1.4 k/uL (0-1.0); Monocytes % (A) 13 %; Neutrophils # (A) 7.3 k/uL (1.3-7.7); Neutrophils % (A) 67 %; Platelet Count 215 k/uL (150-450); RBC 4.28 m/uL (3.80-5.40); RDW 13.8 % (11.5-15.5); WBC 10.9 k/uL (3.8-10.6)
[2024-07-05 22:24] LABS: ALT 38 U/L (4-34); AST 49 U/L (14-36); African American GFR (CKD) >90 (>60 ml/min/1.73 sqM); Albumin 4.5 g/dL (3.5-5.0); Anion Gap 11 mmol/L; Blood Urea Nitrogen 8 mg/dL (7-17); Calcium 8.8 mg/dL (8.4-10.2); Carbon Dioxide 19 mmol/L (22-30); Chloride 104 mmol/L (98-107); Glucose 85 mg/dL (74-99); Non-African American GFR(CKD) >90 (>60 ml/min/1.73 sqM); Sodium 134 mmol/L (137-145)
[2024-07-05 22:34] LABS: Partial Thromboplastin Time 21.7 sec (22.0-30.0); Prothrombin Time 10.9 sec (10.0-12.5)
[2024-07-05 22:35] LABS: Alkaline Phosphatase 45 U/L (38-126); Potassium 4.9 mmol/L (3.5-5.1); Total Bilirubin 1.3 mg/dL (0.2-1.3)
[2024-07-05] MEDS: ACETAMINOPHEN TAB 325 MG TAB PO STA (22:52)
[2024-07-05] MEDS: KETOROLAC 15 MG/ML 1 ML VIAL IVP STA (22:57)
[2024-07-06 02:32] VITALS: BP 113/76; PULSE 74; RESP 16
== END 2024-07-06 02:32 | disposition home or self-care (01) ==
LOC: EC 21:30
DX: F41.9 Anxiety disorder, unspecified (principal); J44.9 Chronic obstructive pulmonary disease, unspecified; I51.81 Takotsubo syndrome; F17.200 Nicotine dependence, unspecified, uncomplicated; Z88.0 Allergy status to penicillin; Z88.6 Allergy status to analgesic agent; Z88.8 Allergy status to other drugs, medicaments and biological substances
CPT/HCPCS: 36415; 93005; 80053; 84484; 85025; 85610; 85730; 99285; 96374; J1885

== ENCOUNTER 2024-07-16 07:09 | Emergency (ER) | payer OTHER ==
[2024-07-16 07:32] VITALS: TEMP 98.4
[2024-07-16] MEDS: methylPREDNISolone SOD SUCCI 125 MG/2 ML VIAL IV STA (08:04)
[2024-07-16] MEDS: levETIRAcetam IV 500 MG/5 ML VIAL IVP STA (08:04)
[2024-07-16] MEDS: HYDROmorphone 0.5 MG/0.5 ML SYRINGE IVP STA (08:04)
--- NOTE | 2024-07-16 08:04 | ED ---
General Adult HPI - General Chief complaint: Shortness of Breath Stated complaint: [place] Time Seen by Provider: 07/16/24 07:30 Source: patient, EMS, RN notes reviewed, old records reviewed Mode of arrival: EMS Limitations: no limitations - History of Present Illness Initial comments: This is a 58-year-old female with a past medical history significant for COPD and she continues to smoke. Patient states she comes in today because she started having difficulty breathing yesterday and got much worse this morning. Patient states she also ran out of her Keppra yesterday and she has not taken any today. Patient also has a mild headache. Patient denies any fever chills patient states she does have a cough. Patient denies any chest pain or palpitation. Patient has abdominal pain patient has nausea vomiting or diarrhea - Related Data Home Medications Medication Instructions Recorded Confirmed levETIRAcetam [Keppra] 500 mg PO BID 02/15/24 06/17/24 Albuterol Inhaler [Ventolin Hfa 2 puff INHALATION RT-Q4H PRN 06/17/24 06/17/24 Inhaler] Previous Rx's Medication Instructions Recorded Acetaminophen Tab [Tylenol] 650 mg PO Q6HR PRN tab 06/17/24 Aspirin 81 mg PO DAILY #30 tab 06/17/24 Atorvastatin [Lipitor] 40 mg PO HS #30 tab 06/17/24 Calcium Carbonate [Tums] 1,000 mg PO Q4HR PRN tab 06/17/24 Famotidine [Pepcid] 20 mg PO BID #60 tab 06/17/24 Benzonatate [Tessalon Perle] 200 mg PO TID #12 cap 06/21/24 Albuterol Sulfate [Albuterol 1 puff PO Q4-6H PRN #8.5 gm 07/04/24 Sulfate Hfa] methylPREDNISolone Dose Pack 4 mg PO DIRECTED #1 packet 07/04/24 [Medrol Dose Pack] levETIRAcetam [Keppra] 500 mg PO Q12HR #14 tab 07/05/24 levETIRAcetam [Keppra] 500 mg PO Q12HR 14 Days #28 tab 07/14/24 lisinopriL [Prinivil] 10 mg PO DAILY #30 tab 07/14/24 levETIRAcetam [Keppra] 500 mg PO Q12HR #20 tab 07/16/24 predniSONE [Deltasone] 40 mg PO DAILY #8 tab 07/16/24 Allergies Allergy/AdvReac Type Severity Reaction Status Date / Time Penicillins Allergy Rash/Hives/Swelling Verified 07/16/24 07:32 all over body NSAIDS (Non-Steroidal AdvReac Unknown upset Verified 07/16/24 07:32 Anti-Inflamma stomach sertraline HCl [From Zoloft] AdvReac Suicidal/Ag Verified 07/16/24 07:32 ression Review of Systems ROS Statement: Those systems with pertinent positive or pertinent negative responses have been documented in the HPI. ROS Other: All systems not noted in ROS Statement are negative. Past Medical History Past Medical History: Cancer, COPD, Liver Disease, Myocardial Infarction (VT), Seizure Disorder, Vascular Disorder Additional Past Medical History / Comment(s): constpation, last bowel movement 4 days ago, feeling bloated,feeling of fullness, and abdominal pain, feels hungry then over eats then vomits to feel better, LAST SEIZURE - JANUARY 2021, "broken heart syndrome"., elevated liver enzymes, "dislocated disks", hx cervical cancer Last Myocardial Infarction Date:: 2019 History of Any Multi-Drug Resistant Organisms: None Reported Past Surgical History: Section, Heart Catheterization, Tubal Ligation Additional Past Surgical History / Comment(s): ORIF rt ankle/hardware later removed, exploratory lap, PAIN CLINIC PROCEDURE, BILAT CATARACTS REMOVED WITH LENS IMPLANTS, procedure to open a vein in left leg-couldn't confirm which leg, partial amputation rt hand middle finger, "procedure to remove cervical cancer" Past Anesthesia/Blood Transfusion Reactions: No Reported Reaction Past Psychological History: Anxiety, Bipolar, Depression, PTSD Smoking Status: Current every day smoker Past Alcohol Use History: Abuse, Daily, Heavy Past Drug Use History: Marijuana - Past Family History Father Family Medical History: Cancer, Prostate Disorder, Pulmonary Embolus Sister(s) Family Medical History: Cancer Brother(s) Family Medical History: Cancer Additional Family Medical History / Comment(s): colon and bladder General Exam - General Exam Comments Initial Comments: GENERAL: Patient is well-developed and well-nourished. Patient is nontoxic and well- hydrated and is in mild distress. ENT: Neck is soft and supple. No significant lymphadenopathy is noted. Oropharynx is clear. Moist mucous membranes. Neck has full range of motion without eliciting any pain. EYES: The sclera were anicteric and conjunctiva were pink and moist. Extraocular movements were intact and pupils were equal round and reactive to light. Eyelids were unremarkable. PULMONARY: Moderate expiratory wheezing CARDIOVASCULAR: There is a regular rate and rhythm without any murmurs gallops or rubs. ABDOMEN: Soft and nontender with normal bowel sounds. SKIN: Skin is clear with no lesions or rashes and otherwise unremarkable. NEUROLOGIC: Patient is alert and oriented x3. Cranial nerves II through XII are grossly intact. Motor and sensory are also intact. Normal speech, volume and content. Symmetrical smile. MUSCULOSKELETAL: Normal extremities with adequate strength and full range of motion. LYMPHATICS: No significant lymphadenopathy is noted PSYCHIATRIC: Normal psychiatric evaluation. Limitations: no limitations Course Vital Signs 07/16/24 07/16/24 07/16/24 07:26 08:15 09:00 Temperature 98.4 F Pulse Rate 91 84 Respiratory 18 18 Rate Blood Pressure 180/115 152/92 158/90 O2 Sat by Pulse 98 96 Oximetry 07/16/24 07/16/24 07/16/24 09:06 09:14 09:22 Temperature Pulse Rate 86 80 78 Respiratory Rate Blood Pressure O2 Sat by Pulse Oximetry Medical Decision Making - Medical Decision Making EKG is interpreted by myself. EKG shows a sinus rhythm at 75 bpm [place] was 167 QRS is 85 QT interval 387 QTc is 415. Patient's EKG shows no ST segment ovation or depression Was pt. sent in by a medical professional or institution (, PA, TRAILER PARK MANAGER, urgent care, hospital, or [place] health care facility...) When possible be specific @ -No Did you speak to anyone other than the patient for history (EMS, parent, family, police, friend...)? What history was obtained from this source @ -No Did you review nursing and triage notes (agree or disagree)? Why? @ -I reviewed and agree with nursing and triage notes Were old charts reviewed (outside hosp., previous admission, EMS record, old EKG, old radiological studies, urgent care reports/EKG's, [place] health [facility] facility records)? Report findings @ -No old charts were reviewed Differential Diagnosis? @ -Differential Dyspnea: Coronary syndrome, arrhythmia, tamponade, asthma, COPD, pulmonary embolism, pneumonia, pneumothorax, pulmonary effusion, anaphylaxis, diabetic ketoacidosis, flailed chest, pulmonary contusion, diaphragmatic rupture, anemia, neuromuscular, this is not meant to be an all-inclusive list. EKG interpreted by me (3pts min.). @ -As above X-rays interpreted by me (1pt min.). @ -Chest x-ray shows no acute abnormality CT interpreted by me (1pt min.). @ -None done U/S interpreted by me (1pt. min.). @ -None done What testing was considered but not performed or refused? (CT, X-rays, U/S, labs)? Why? @ -None What meds were considered but not given or refused? Why? @ -None Did you discuss the management of the patient with other professionals (professionals i.e. , PA, TRAILER PARK MANAGER, lab, RT, psych nurse, social security specialist, coding machine operator, teacher, wildlife officer, caseworker)? Give summary @ -No Was smoking cessation discussed for >3mins.? @ -No Was critical care preformed (if so, how long)? @ -No Were there social determinants of health that impacted care today? How? (Homele ssness, low income, unemployed, alcoholism, drug addiction, transportation, low edu. Level, literacy, decrease access to med. care, detention, rehab)? @ -No Was there de-escalation of care discussed even if they declined (Discuss DNR or withdrawal of care, Hospice)? DNR status @ -No What co-morbidities impacted this encounter? (DM, HTN, Smoking, COPD, CAD, Cancer, CVA, ARF, Chemo, Hep., AIDS, mental health diagnosis, sleep apnea, morbid obesity)? @ -None Was patient admitted / discharged? Hospital course, mention meds given and route, prescriptions, significant lab abnormalities, going to OR and other pertinent info. @ -Patient received 2 breathing treatments steroids antibiotics in the emergency department. Patient also got 0.5 of Dilaudid for headache. Patient was feeling considerably better felt comfortable going home. Patient be sent home on steroid she states she has a nebulizer at home. Patient also was given Keppra for her seizures because she ran out of her medications. Patient be sent home with a Keppra prescription and she will follow-up with her primary medical care doctor Undiagnosed new problem with uncertain prognosis? @ -No Drug Therapy requiring intensive monitoring for toxicity (Heparin, Nitro, Insulin, Cardizem)? @ -No Were any procedures done? @ -No Diagnosis/symptom? @ -COPD exacerbation Acute, or Chronic, or Acute on Chronic? @ -Acute Uncomplicated (without systemic symptoms) or Complicated (systemic symptoms)? @ -Complicated Side effects of treatment? @ -No Exacerbation, Progression, or Severe Exacerbation? @ -No Poses a threat to life or bodily function? How? (Chest pain, USA, VT, pneumonia, PE, COPD, DKA, ARF, appy, cholecystitis, CVA, Diverticulitis, Homicidal, Suicidal, threat to staff... and all critical care pts) @ -No - Lab Data Result diagrams: 07/16/24 07:59 07/16/24 09:00 Lab Results 07/16/24 07/16/24 07/16/24 Range/Units 07:59 07:59 07:59 WBC 7.0 (3.8-10.6) k/uL RBC 4.57 (3.80-5.40) m/uL Hgb 14.8 (11.4-16.0) gm/dL Hct 44.6 (34.0-46.0) % MCV 97.8 (80.0-100.0) fL MCH 32.5 (25.0-35.0) pg MCHC 33.3 (31.0-37.0) g/dL RDW 13.7 (11.5-15.5) % Plt Count 319 (150-450) k/uL MPV 6.9 Neutrophils % 64 % Lymphocytes % 24 % Monocytes % 8 % Eosinophils % 1 % Basophils % 1 % Neutrophils # 4.5 (1.3-7.7) k/uL Lymphocytes # 1.7 (1.0-4.8) k/uL Monocytes # 0.6 (0-1.0) k/uL Eosinophils # 0.1 (0-0.7) k/uL Basophils # 0.0 (0-0.2) k/uL PT (10.0-12.5) sec INR (<1.2) APTT (22.0-30.0) sec Sodium (137-145) mmol/L Potassium (3.5-5.1) mmol/L Chloride (98-107) mmol/L Carbon Dioxide (22-30) mmol/L Anion Gap mmol/L BUN (7-17) mg/dL Creatinine (0.52-1.04) mg/dL Est GFR (CKD-EPI)AfAm (>60 ml/min/1.73 sqM) Est GFR (CKD-EPI)NonAf (>60 ml/min/1.73 sqM) Glucose (74-99) mg/dL Plasma Lactic Acid Anthony (0.7-2.0) mmol/L Calcium (8.4-10.2) mg/dL Magnesium (1.6-2.3) mg/dL Total Bilirubin (0.2-1.3) mg/dL AST (14-36) U/L ALT (4-34) U/L Alkaline Phosphatase (38-126) U/L Troponin I <0.012 (0.000-0.034) ng/mL NT-Pro-B Natriuret Pep pg/mL Total Protein (6.3-8.2) g/dL Albumin (3.5-5.0) g/dL Influenza Type A (PCR) Not Detected (Not Detectd) Influenza Type B (PCR) Not Detected (Not Detectd) RSV (PCR) Not Detected (Not Detectd) SARS-CoV-2 (PCR) Not Detected (Not Detectd) 07/16/24 07/16/24 07/16/24 Range/Units 09:00 09:00 09:00 WBC (3.8-10.6) k/uL RBC (3.80-5.40) m/uL Hgb (11.4-16.0) gm/dL Hct (34.0-46.0) % MCV (80.0-100.0) fL MCH (25.0-35.0) pg MCHC (31.0-37.0) g/dL RDW (11.5-15.5) % Plt Count (150-450) k/uL MPV Neutrophils % % Lymphocytes % % Monocytes % % Eosinophils % % Basophils % % Neutrophils # (1.3-7.7) k/uL Lymphocytes # (1.0-4.8) k/uL Monocytes # (0-1.0) k/uL Eosinophils # (0-0.7) k/uL Basophils # (0-0.2) k/uL PT 10.1 (10.0-12.5) sec INR 0.9 (<1.2) APTT 22.7 (22.0-30.0) sec Sodium 139 (137-145) mmol/L Potassium 4.2 (3.5-5.1) mmol/L Chloride 109 H (98-107) mmol/L Carbon Dioxide 22 (22-30) mmol/L Anion Gap 8 mmol/L BUN 11 (7-17) mg/dL Creatinine 0.46 L (0.52-1.04) mg/dL Est GFR (CKD-EPI)AfAm >90 (>60 ml/min/1.73 sqM) Est GFR (CKD-EPI)NonAf >90 (>60 ml/min/1.73 sqM) Glucose 100 H (74-99) mg/dL Plasma Lactic Acid Anthony 0.7 (0.7-2.0) mmol/L Calcium 8.9 (8.4-10.2) mg/dL Magnesium 1.7 (1.6-2.3) mg/dL Total Bilirubin 0.4 (0.2-1.3) mg/dL AST 26 (14-36) U/L ALT 20 (4-34) U/L Alkaline Phosphatase 80 (38-126) U/L Troponin I (0.000-0.034) ng/mL NT-Pro-B Natriuret Pep 48 pg/mL Total Protein 6.2 L (6.3-8.2) g/dL Albumin 3.9 (3.5-5.0) g/dL Influenza Type A (PCR) (Not Detectd) Influenza Type B (PCR) (Not Detectd) RSV (PCR) (Not Detectd) SARS-CoV-2 (PCR) (Not Detectd) Disposition Clinical Impression: COPD exacerbation Disposition: HOME SELF-CARE Instructions (If sedation given, give patient instructions): COPD (Chronic Obstructive Pulmonary Disease) (ED) Prescriptions: predniSONE [Deltasone] 40 mg PO DAILY #8 tab levETIRAcetam [Keppra] 500 mg PO Q12HR #20 tab Is patient prescribed a controlled substance at d/c from ED?: No Referrals: None,Stated [Primary Care Provider] - 1-2 days Time of Disposition: 10:00
[2024-07-16 08:14] LABS: Basophils % (A) 1 %; Eosinophils # (A) 0.1 k/uL (0-0.7); Eosinophils % (A) 1 %; HCT 44.6 % (34.0-46.0); HGB 14.8 gm/dL (11.4-16.0); Lymphocytes # (A) 1.7 k/uL (1.0-4.8); Lymphocytes % (A) 24 %; MCH 32.5 pg (25.0-35.0); MCHC 33.3 g/dL (31.0-37.0); MCV 97.8 fL (80.0-100.0); Mean Platelet Volume 6.9; Monocytes # (A) 0.6 k/uL (0-1.0); Monocytes % (A) 8 %; Neutrophils # (A) 4.5 k/uL (1.3-7.7); Neutrophils % (A) 64 %; Platelet Count 319 k/uL (150-450); RBC 4.57 m/uL (3.80-5.40); RDW 13.7 % (11.5-15.5)
[2024-07-16] MEDS: SODIUM CHLORIDE 0.9% 1,000 ML IV STA (08:17)
--- NOTE | 2024-07-16 08:44 | XR ---
EXAMINATION TYPE: XR chest 2V DATE OF EXAM: 07/16/2024 8:37 AM COMPARISON: Multiple radiographs, with the most recent on 07/14/2024 TECHNIQUE: XR chest 2V Frontal and lateral views of the chest. CLINICAL INDICATION:Female, 58 years old with history of difficulty breathing; FINDINGS: Lungs/Pleura: There is no evidence of pleural effusion, focal consolidation, or pneumothorax. Pulmonary vascularity: Unremarkable. Heart/mediastinum: Cardiomediastinal silhouette is unremarkable. Musculoskeletal: No acute osseous pathology. Calcifications adjacent to the lateral aspect of the hum eral head suggestive of calcific tendinitis. IMPRESSION: No acute cardiopulmonary disease/process. No significant change from prior exam. [facility], , 07/16/2024 8:42 AM
[2024-07-16 08:49] LABS: Influenza A Not Detected (Not Detectd); Influenza B Not Detected (Not Detectd); RSV Not Detected (Not Detectd)
[2024-07-16] MEDS: cefTRIAXone IN SWFI 1,000 MG/10 ML SYRINGE IVP STA (09:00)
[2024-07-16] MEDS: ALBUTEROL NEBULIZED 2.5 MG/3 ML INHALATION STA (09:06)
[2024-07-16] MEDS: IPRATROPIUM 0.5 MG/2.5 ML NEBU INHALATION STA (09:06)
[2024-07-16 09:21] LABS: INR 0.9 (<1.2); Partial Thromboplastin Time 22.7 sec (22.0-30.0); Prothrombin Time 10.1 sec (10.0-12.5)
[2024-07-16 09:39] LABS: ALT 20 U/L (4-34); AST 26 U/L (14-36); African American GFR (CKD) >90 (>60 ml/min/1.73 sqM); Albumin 3.9 g/dL (3.5-5.0); Alkaline Phosphatase 80 U/L (38-126); Anion Gap 8 mmol/L; Blood Urea Nitrogen 11 mg/dL (7-17); Calcium 8.9 mg/dL (8.4-10.2); Carbon Dioxide 22 mmol/L (22-30); Chloride 109 mmol/L (98-107); Glucose 100 mg/dL (74-99); Magnesium 1.7 mg/dL (1.6-2.3); Non-African American GFR(CKD) >90 (>60 ml/min/1.73 sqM); Potassium 4.2 mmol/L (3.5-5.1); Sodium 139 mmol/L (137-145); Total Bilirubin 0.4 mg/dL (0.2-1.3); Total Protein 6.2 g/dL (6.3-8.2)
[2024-07-16 09:47] LABS: NT-Pro-B-Type Natriuretic Pept 48 pg/mL
[2024-07-16 10:09] VITALS: BP 143/80; PULSE 82; RESP 17
== END 2024-07-16 10:12 | disposition home or self-care (01) ==
LOC: EC 07:09
DX: J44.1 Chronic obstructive pulmonary disease with (acute) exacerbation (principal); F17.200 Nicotine dependence, unspecified, uncomplicated; Z88.0 Allergy status to penicillin; Z88.6 Allergy status to analgesic agent; Z88.8 Allergy status to other drugs, medicaments and biological substances
CPT/HCPCS: 36415; 94640 ×2; 83880; 80053; 83605; 83735; 84484; 85025; 85610; 85730; 87636; 71046; 99285; 96374; 96375 ×3; 96361; J0696; J1953; J1171; J2919

== ENCOUNTER 2024-08-13 19:28 | Emergency (ER) | payer OTHER ==
[2024-08-13 20:02] VITALS: RESP 18
--- NOTE | 2024-08-13 20:54 | ED ---
General Adult HPI - General Chief complaint: Chest Pain Stated complaint: etoh Time Seen by Provider: 08/13/24 20:31 Source: patient, EMS, RN notes reviewed Mode of arrival: EMS Limitations: no limitations - History of Present Illness Initial comments: 58-year-old female presents to the emergency department for evaluation of chest discomfort. Patient states that she has chest discomfort frequently and has been evaluated multiple times for this. She states that her pain feels feels like her typical pain. She denies any recent fever, chills. She does admit to some cough. She has been taking all of her medications as prescribed. - Related Data Previous Rx's Medication Instructions Recorded Aspirin 81 mg PO DAILY 30 Days #30 tab 08/01/24 Atorvastatin [Lipitor] 40 mg PO DAILY 30 Days #30 tab 08/01/24 Losartan [Cozaar] 25 mg PO DAILY 30 Days #30 tab 08/01/24 Thiamine [Vitamin B-1] 100 mg PO DAILY 30 Days #30 tab 08/01/24 carvediloL [Coreg] 3.125 mg PO BID-W/MEALS 30 Days 08/01/24 #60 tab levETIRAcetam [Keppra] 500 mg PO Q12HR 90 Days #180 tab 08/01/24 Allergies Allergy/AdvReac Type Severity Reaction Status Date / Time Penicillins Allergy Rash/Hives/Swelling Verified 08/13/24 20:02 all over body NSAIDS (Non-Steroidal AdvReac Unknown upset Verified 08/13/24 20:02 Anti-Inflamma stomach sertraline HCl [From Zoloft] AdvReac Suicidal/Ag Verified 08/13/24 20:02 ression Review of Systems ROS Statement: Those systems with pertinent positive or pertinent negative responses have been documented in the HPI. ROS Other: All systems not noted in ROS Statement are negative. Past Medical History Past Medical History: Cancer, COPD, Liver Disease, Myocardial Infarction ([place]), Seizure Disorder, Vascular Disorder Additional Past Medical History / Comment(s): constpation, last bowel movement 4 days ago, feeling bloated,feeling of fullness, and abdominal pain, feels hungry then over eats then vomits to feel better, LAST SEIZURE - JANUARY 2021, "broken heart syndrome"., elevated liver enzymes, "dislocated disks", hx cervical cancer Last Myocardial Infarction Date:: 2019 History of Any Multi-Drug Resistant Organisms: None Reported Past Surgical History: Section, Heart Catheterization, Tubal Ligation Additional Past Surgical History / Comment(s): ORIF rt ankle/hardware later removed, exploratory lap, PAIN CLINIC PROCEDURE, BILAT CATARACTS REMOVED WITH LENS IMPLANTS, procedure to open a vein in left leg-couldn't confirm which leg, partial amputation rt hand middle finger, "procedure to remove cervical cancer" Past Anesthesia/Blood Transfusion Reactions: No Reported Reaction Past Psychological History: Anxiety, Bipolar, Depression, PTSD Smoking Status: Current every day smoker Past Alcohol Use History: Abuse, Daily, Heavy Past Drug Use History: Marijuana - Past Family History Father Family Medical History: Cancer, Prostate Disorder, Pulmonary Embolus Sister(s) Family Medical History: Cancer Brother(s) Family Medical History: Cancer Additional Family Medical History / Comment(s): colon and bladder General Exam Limitations: no limitations General appearance: alert, in no apparent distress, appears intoxicated Head exam: Present: atraumatic, normocephalic, normal inspection Eye exam: Present: normal appearance, PERRL, EOMI. Absent: scleral icterus, conjunctival injection, periorbital swelling ENT exam: Present: normal exam, mucous membranes moist Respiratory exam: Present: normal lung sounds bilaterally. Absent: respiratory distress, wheezes, rales, rhonchi, stridor Cardiovascular Exam: Present: regular rate, normal rhythm, normal heart sounds. Absent: systolic murmur, diastolic murmur, rubs, gallop, clicks GI/Abdominal exam: Present: soft. Absent: distended, tenderness, guarding, rebound, rigid Extremities exam: Present: normal inspection, full ROM, normal capillary refill. Absent: tenderness, pedal edema, joint swelling, calf tenderness Neurological exam: Present: alert, oriented X3 Psychiatric exam: Present: normal affect, normal mood Skin exam: Present: warm, dry, intact, normal color. Absent: rash Course Vital Signs 08/13/24 08/13/24 19:58 22:48 Temperature 98.4 F 97.8 F Pulse Rate 74 75 Respiratory 18 18 Rate Blood Pressure 111/77 111/73 O2 Sat by Pulse 96 96 Oximetry Medical Decision Making - Medical Decision Making Was pt. sent in by a medical professional or institution (, PA, TECHNICAL SPECIALIST, urgent care, hospital, or senior living...) When possible be specific @ -No Did you speak to anyone other than the patient for history (EMS, parent, family, police, friend...)? What history was obtained from this source @ -No Did you review nursing and triage notes (agree or disagree)? Why? @ -I reviewed and agree with nursing and triage notes Were old charts reviewed (outside hosp., previous admission, EMS record, old EKG, old radiological studies, urgent care reports/EKG's, senior living records)? Report findings @ -No old charts were reviewed Differential Diagnosis (chest pain, altered mental status, abdominal pain women, abdominal pain men, vaginal bleeding, weakness, fever, dyspnea, syncope, headache, dizziness, GI bleed, back pain, seizure, CVA, palpatations, mental health, musculoskeletal)? @ -Differential Chest Pain: Stable Angina, Unstable Angina, STEMI, NSTEMI Aortic Dissection, Pneumothorax, Musculoskeletal, Esophageal Spasm GERD, Cholecystitis, Pancreatitis, Zoster, this is not meant to be an all-inclusive list. EKG interpreted by me (3pts min.). @ -EKG at 2009 shows sinus rhythm rate 67, MA 177, QRS 73, QTQTc [id number] X-rays interpreted by me (1pt min.). @ -Chest x-ray shows no acute process CT interpreted by me (1pt min.). @ -None done U/S interpreted by me (1pt. min.). @ -None done What testing was considered but not performed or refused? (CT, X-rays, U/S, labs)? Why? @ -None What meds were considered but not given or refused? Why? @ -None Did you discuss the management of the patient with other professionals (professionals i.e. , PA, TECHNICAL SPECIALIST, lab, RT, psych nurse, sexual assault social worker, shell maker lockstitch, teacher, accounts officer, case management manager)? Give summary @ -No Was smoking cessation discussed for >3mins.? @ -No Was critical care preformed (if so, how long)? @ -No Were there social determinants of health that impacted care today? How? (Homelessness, low income, unemployed, alcoholism, drug addiction, transportation, low edu. Level, literacy, decrease access to med. care, penitentiary, rehab)? @ -No Was there de-escalation of care discussed even if they declined (Discuss DNR or withdrawal of care, Hospice)? DNR status @ -No What co-morbidities impacted this encounter? (DM, HTN, Smoking, COPD, CAD, Cancer, CVA, ARF, Chemo, Hep., AIDS, mental health diagnosis, sleep apnea, morbid obesity)? @ -None Was patient admitted / discharged? Hospital course, mention meds given and route, prescriptions, significant lab abnormalities, going to OR and other pertinent info. @ -Discharge.Patient presented emergency department for evaluation of chest discomfort. Laboratory studies obtained revealing no significant leukocytosis, hemoglobin 12.4; coagulation studies unremarkable; CMP shows mild hyponatremia. Patient has a negative troponin. Very mild transaminitis likely related to the patient's alcoholism. Patient has a serum alcohol of 262. She will be discharged home. She is not driving home. Patient understanding agreeable with plan. Patient stable at time of discharge. Case discussed with Dr. Stewart Undiagnosed new problem with uncertain prognosis? @ -No Drug Therapy requiring intensive monitoring for toxicity (Heparin, Nitro, Insulin, Cardizem)? @ -No Were any procedures done? @ -No Diagnosis/symptom? @ -Alcohol intoxication, chest discomfort Acute, or Chronic, or Acute on Chronic? @ -Acute Uncomplicated (without systemic symptoms) or Complicated (systemic symptoms)? @ -Uncomplicated Side effects of treatment? @ -No Exacerbation, Progression, or Severe Exacerbation? @ -No Poses a threat to life or bodily function? How? (Chest pain, [place], [place], pneumonia, PE, COPD, DKA, ARF, appy, cholecystitis, CVA, Diverticulitis, Homicidal, Suicidal, threat to staff... and all critical care pts) @ -No - Lab Data Result diagrams: 08/13/24 21:07 08/13/24 21:07 Lab Results 08/13/24 08/13/24 08/13/24 Range/Units 21:07 21:07 21:07 WBC 6.0 (3.8-10.6) k/uL RBC 3.90 (3.80-5.40) m/uL Hgb 12.4 (11.4-16.0) gm/dL Hct 38.0 (34.0-46.0) % MCV 97.4 (80.0-100.0) fL MCH 31.8 (25.0-35.0) pg MCHC 32.7 (31.0-37.0) g/dL RDW 14.4 (11.5-15.5) % Plt Count 295 (150-450) k/uL MPV 7.3 Neutrophils % 54 % Lymphocytes % 33 % Monocytes % 9 % Eosinophils % 1 % Basophils % 0 % Neutrophils # 3.2 (1.3-7.7) k/uL Lymphocytes # 2.0 (1.0-4.8) k/uL Monocytes # 0.5 (0-1.0) k/uL Eosinophils # 0.1 (0-0.7) k/uL Basophils # 0.0 (0-0.2) k/uL PT 9.9 L (10.0-12.5) sec INR 0.9 (<1.2) APTT 24.0 (22.0-30.0) sec Sodium 134 L (137-145) mmol/L Potassium 3.7 (3.5-5.1) mmol/L Chloride 100 (98-107) mmol/L Carbon Dioxide 23 (22-30) mmol/L Anion Gap 11 mmol/L BUN <2 L (7-17) mg/dL Creatinine 0.36 L (0.52-1.04) mg/dL Est GFR (CKD-EPI)AfAm >90 (>60 ml/min/1.73 sqM) Est GFR (CKD-EPI)NonAf >90 (>60 ml/min/1.73 sqM) Glucose 78 (74-99) mg/dL Calcium 8.2 L (8.4-10.2) mg/dL Magnesium 1.8 (1.6-2.3) mg/dL Total Bilirubin 0.4 (0.2-1.3) mg/dL AST 81 H (14-36) U/L ALT 36 H (4-34) U/L Alkaline Phosphatase 95 (38-126) U/L Troponin I (0.000-0.034) ng/mL Total Protein 6.3 (6.3-8.2) g/dL Albumin 3.9 (3.5-5.0) g/dL Serum Alcohol 262 H* mg/dL 08/13/24 Range/Units 21:07 WBC (3.8-10.6) k/uL RBC (3.80-5.40) m/uL Hgb (11.4-16.0) gm/dL Hct (34.0-46.0) % MCV (80.0-100.0) fL MCH (25.0-35.0) pg MCHC (31.0-37.0) g/dL RDW (11.5-15.5) % Plt Count (150-450) k/uL MPV Neutrophils % % Lymphocytes % % Monocytes % % Eosinophils % % Basophils % % Neutrophils # (1.3-7.7) k/uL Lymphocytes # (1.0-4.8) k/uL Monocytes # (0-1.0) k/uL Eosinophils # (0-0.7) k/uL Basophils # (0-0.2) k/uL PT (10.0-12.5) sec INR (<1.2) APTT (22.0-30.0) sec Sodium (137-145) mmol/L Potassium (3.5-5.1) mmol/L Chloride (98-107) mmol/L Carbon Dioxide (22-30) mmol/L Anion Gap mmol/L BUN (7-17) mg/dL Creatinine (0.52-1.04) mg/dL Est GFR (CKD-EPI)AfAm (>60 ml/min/1.73 sqM) Est GFR (CKD-EPI)NonAf (>60 ml/min/1.73 sqM) Glucose (74-99) mg/dL Calcium (8.4-10.2) mg/dL Magnesium (1.6-2.3) mg/dL Total Bilirubin (0.2-1.3) mg/dL AST (14-36) U/L ALT (4-34) U/L Alkaline Phosphatase (38-126) U/L Troponin I <0.012 (0.000-0.034) ng/mL Total Protein (6.3-8.2) g/dL Albumin (3.5-5.0) g/dL Serum Alcohol mg/dL Disposition Clinical Impression: Alcohol intoxication, Chest pain Disposition: HOME SELF-CARE Condition: Stable Instructions (If sedation given, give patient instructions): Chest Pain (ED) Additional Instructions: Please follow-up with your primary care provider. Return to the emergency department for new or worsening symptoms. Is patient prescribed a controlled substance at d/c from ED?: No Referrals: None,Stated [Primary Care Provider] - 1-2 days
[2024-08-13 21:15] LABS: Basophils % (A) 0 %; Eosinophils # (A) 0.1 k/uL (0-0.7); Eosinophils % (A) 1 %; HGB 12.4 gm/dL (11.4-16.0); Lymphocytes % (A) 33 %; MCH 31.8 pg (25.0-35.0); MCHC 32.7 g/dL (31.0-37.0); MCV 97.4 fL (80.0-100.0); Mean Platelet Volume 7.3; Monocytes # (A) 0.5 k/uL (0-1.0); Monocytes % (A) 9 %; Neutrophils # (A) 3.2 k/uL (1.3-7.7); Neutrophils % (A) 54 %; Platelet Count 295 k/uL (150-450); RDW 14.4 % (11.5-15.5)
[2024-08-13 21:35] LABS: INR 0.9 (<1.2); Prothrombin Time 9.9 sec (10.0-12.5)
--- NOTE | 2024-08-13 21:35 | XR ---
EXAMINATION TYPE: XR chest 2V DATE OF EXAM: 08/13/2024 9:18 PM COMPARISON: None. CLINICAL INDICATION: Female, 58 years old with history of Chest Pain; [facility] TECHNIQUE: XR chest 2V Frontal and lateral views of the chest. FINDINGS: Lungs/Pleura: There is no evidence of pleural effusion, focal consolidation, or pneumothorax. Pulmonary vascularity: Unremarkable. Heart/mediastinum: Cardiomediastinal silhouette is unremarkable. Musculoskeletal: No acute osseous pathology. Other findings: None IMPRESSION: No acute cardiopulmonary disease/process. [facility], , 08/13/2024 9:32 PM
[2024-08-13] MEDS: levETIRAcetam 500 MG TAB PO STA (21:37)
[2024-08-13] MEDS: MORPHINE SULFATE 2 MG/ML SYRINGE IVP ONE (21:38)
[2024-08-13 22:07] LABS: ALT 36 U/L (4-34); AST 81 U/L (14-36); African American GFR (CKD) >90 (>60 ml/min/1.73 sqM); Albumin 3.9 g/dL (3.5-5.0); Alkaline Phosphatase 95 U/L (38-126); Anion Gap 11 mmol/L; Blood Urea Nitrogen <2 mg/dL (7-17); Calcium 8.2 mg/dL (8.4-10.2); Carbon Dioxide 23 mmol/L (22-30); Chloride 100 mmol/L (98-107); Glucose 78 mg/dL (74-99); Magnesium 1.8 mg/dL (1.6-2.3); Non-African American GFR(CKD) >90 (>60 ml/min/1.73 sqM); Potassium 3.7 mmol/L (3.5-5.1); Sodium 134 mmol/L (137-145); Total Bilirubin 0.4 mg/dL (0.2-1.3); Total Protein 6.3 g/dL (6.3-8.2)
[2024-08-13 22:13] LABS: Alcohol 262 mg/dL
[2024-08-13 22:49] VITALS: BP 111/73; PULSE 75; TEMP 97.8
== END 2024-08-13 22:49 | disposition home or self-care (01) ==
LOC: EC 19:28
DX: R07.89 Other chest pain (principal); F10.129 Alcohol abuse with intoxication, unspecified; F17.200 Nicotine dependence, unspecified, uncomplicated; Y90.8 Blood alcohol level of 240 mg/100 ml or more
CPT/HCPCS: 36415; 93005; 80053; 83735; 84484; 85025; 85610; 85730; 71046; 99285; 96374; G0480; J2270; 80320

== ENCOUNTER 2024-08-18 23:37 | Emergency (ER) | payer OTHER ==
--- NOTE | 2024-08-19 01:26 | XR ---
EXAM: XR Chest, 2 Views CLINICAL HISTORY: ITS.REASON XR Reason: Cough/pain TECHNIQUE: Frontal and lateral views of the chest. COMPARISON: Chest x-ray of 08/13/2024. FINDINGS: Lungs: Unremarkable. No consolidative changes. Pleural space: Unremarkable. No pneumothorax. No pleural effusions. Heart: Heart is normal in size. No cardiomegaly. Mediastinum: Unremarkable. Normal mediastinal contour. Bones/joints: Osseous structures and soft tissues are unremarkable. No acute fracture. IMPRESSION: No consolidative changes or pleural effusions, unchanged.
[2024-08-19 02:59] VITALS: BP 149/90; PULSE 90; RESP 16; TEMP 97.6
--- NOTE | 2024-08-19 02:59 | ED ---
General Adult HPI - General Chief complaint: Alcohol Stated complaint: EtOH Time Seen by Provider: 08/18/24 23:40 Source: EMS Mode of arrival: EMS Limitations: no limitations - History of Present Illness Initial comments: 58-year-old female presents emergency department for alcohol intoxication. EMS were called to the house where the patient had been drinking. Patient admits to drinking alcohol but does not know why her fianc called to have her brought to the hospital. Patient denies any complaints. No injuries. No polysubstance abuse. No nausea or vomiting. Denies chest pain or difficulty breathing states that the patient has been alert for them however visibly intoxicated. She denies depression. No suicidal or homicidal ideations. No other alleviating, precipitating or modifying factors - Related Data Previous Rx's Medication Instructions Recorded Aspirin 81 mg PO DAILY 30 Days #30 tab 08/01/24 Atorvastatin [Lipitor] 40 mg PO DAILY 30 Days #30 tab 08/01/24 Losartan [Cozaar] 25 mg PO DAILY 30 Days #30 tab 08/01/24 Thiamine [Vitamin B-1] 100 mg PO DAILY 30 Days #30 tab 08/01/24 carvediloL [Coreg] 3.125 mg PO BID-W/MEALS 30 Days 08/01/24 #60 tab levETIRAcetam [Keppra] 500 mg PO Q12HR 90 Days #180 tab 08/01/24 Allergies Allergy/AdvReac Type Severity Reaction Status Date / Time Penicillins Allergy Rash/Hives/Swelling Verified 08/24/24 21:46 all over body NSAIDS (Non-Steroidal AdvReac Unknown upset Verified 08/24/24 21:46 Anti-Inflamma stomach sertraline HCl [From Zoloft] AdvReac Suicidal/Ag Verified 08/24/24 21:46 ression Review of Systems ROS Statement: Those systems with pertinent positive or pertinent negative responses have been documented in the HPI. ROS Other: All systems not noted in ROS Statement are negative. Past Medical History Past Medical History: Cancer, COPD, Liver Disease, Myocardial Infarction ([place]), Seizure Disorder, Vascular Disorder Additional Past Medical History / Comment(s): constpation, last bowel movement 4 days ago, feeling bloated,feeling of fullness, and abdominal pain, feels hungry then over eats then vomits to feel better, LAST SEIZURE - JANUARY 2021, "broken heart syndrome"., elevated liver enzymes, "dislocated disks", hx cervical cancer Last Myocardial Infarction Date:: 2019 History of Any Multi-Drug Resistant Organisms: None Reported Past Surgical History: Section, Heart Catheterization, Tubal Ligation Additional Past Surgical History / Comment(s): ORIF rt ankle/hardware later removed, exploratory lap, PAIN CLINIC PROCEDURE, BILAT CATARACTS REMOVED WITH LENS IMPLANTS, procedure to open a vein in left leg-couldn't confirm which leg, partial amputation rt hand middle finger, "procedure to remove cervical cancer" Past Anesthesia/Blood Transfusion Reactions: No Reported Reaction Past Psychological History: Anxiety, Bipolar, Depression, PTSD Smoking Status: Current every day smoker Past Alcohol Use History: Abuse, Daily, Heavy Past Drug Use History: Marijuana - Past Family History Father Family Medical History: Cancer, Prostate Disorder, Pulmonary Embolus Sister(s) Family Medical History: Cancer Brother(s) Family Medical History: Cancer Additional Family Medical History / Comment(s): colon and bladder General Exam Limitations: no limitations General appearance: alert, appears intoxicated Head exam: Present: atraumatic, normocephalic, normal inspection Eye exam: Present: normal appearance, PERRL, EOMI. Absent: scleral icterus, conjunctival injection, periorbital swelling ENT exam: Present: normal exam, mucous membranes moist Neck exam: Present: normal inspection. Absent: tenderness, meningismus, lymphadenopathy Respiratory exam: Present: normal lung sounds bilaterally. Absent: respiratory distress, wheezes, rales, rhonchi, stridor Cardiovascular Exam: Present: regular rate, normal rhythm, normal heart sounds. Absent: systolic murmur, diastolic murmur, rubs, gallop, clicks GI/Abdominal exam: Present: soft, normal bowel sounds. Absent: distended, tenderness, guarding, rebound, rigid Extremities exam: Present: normal inspection, full ROM, normal capillary refill. Absent: tenderness, pedal edema, joint swelling, calf tenderness Back exam: Present: normal inspection Neurological exam: Present: alert, oriented X3, CN II-XII intact Psychiatric exam: Present: normal affect, normal mood Skin exam: Present: warm, dry, intact, normal color. Absent: rash Course Vital Signs 08/18/24 08/19/24 23:38 02:59 Temperature 98.5 F 97.6 F Pulse Rate 86 90 Respiratory 18 16 Rate Blood Pressure 187/107 149/90 O2 Sat by Pulse 95 97 Oximetry Medical Decision Making - Medical Decision Making Was pt. sent in by a medical professional or institution (BENI Dill, OIL FIELD PUMPER, urgent care, hospital, or shelter...) When possible be specific @ -No Did you speak to anyone other than the patient for history (EMS, parent, family, police, friend...)? What history was obtained from this source @ -Spoke with EMS for history Did you review nursing and triage notes (agree or disagree)? Why? @ -I reviewed and agree with nursing and triage notes Were old charts reviewed (outside hosp., previous admission, EMS record, old EKG, old radiological studies, urgent care reports/EKG's, shelter records)? Report findings @ -No old charts were reviewed Differential Diagnosis (chest pain, altered mental status, abdominal pain women, abdominal pain men, vaginal bleeding, weakness, fever, dyspnea, syncope, headache, dizziness, GI bleed, back pain, seizure, CVA, palpatations, mental health, musculoskeletal)? @ -Alcohol intoxication, alcohol withdrawal, fall, chest pain, shortness of breath EKG interpreted by me (3pts min.). @ -Yes and demonstrates sinus rhythm with rate of 72. SC interval 150. QRS 82. QTc of 419. No acute ST segment elevations or depressions X-rays interpreted by me (1pt min.). @ -Yes which demonstrates no acute process CT interpreted by me (1pt min.). @ -None done U/S interpreted by me (1pt. min.). @ -None done What testing was considered but not performed or refused? (CT, X-rays, U/S, labs)? Why? @ -None What meds were considered but not given or refused? Why? @ -None Did you discuss the management of the patient with other professionals (professionals i.e. BENI Dill, OIL FIELD PUMPER, lab, RT, psych nurse, social media designer, keno dealer, teacher, prison officer, disease case manager)? Give summary @ -No Was smoking cessation discussed for >3mins.? @ -No Was critical care preformed (if so, how long)? @ -No Were there social determinants of health that impacted care today? How? (Homelessness, low income, unemployed, alcoholism, drug addiction, transportation, low edu. Level, literacy, decrease access to med. care, fpc, rehab)? @ -No Was there de-escalation of care discussed even if they declined (Discuss DNR or withdrawal of care, Hospice)? DNR status @ -No What co-morbidities impacted this encounter? (DM, HTN, Smoking, COPD, CAD, Cancer, CVA, ARF, Chemo, Hep., AIDS, mental health diagnosis, sleep apnea, morbid obesity)? @ -Alcohol abuse Was patient admitted / discharged? Hospital course, mention meds given and route, prescriptions, significant lab abnormalities, going to OR and other pertinent info. @ -Upon arrival patient is seen and evaluated by myself. EMS reported that the patient was having chest pain however patient adamantly denies this to me. I did complete a twelve-lead EKG and chest x-ray just in case the patient is intoxicated. She is monitored until she reaches sobriety. Continues to deny that she has any chest pain. She wants to go home at this time. I do not feel that I can hold the patient as she does demonstrate clinical sobriety and has been monitored for several hours. I recommend that she cut down her drinking. Follow-up with her doctor in 2 to 4 days and return for any new or worsening symptoms Undiagnosed new problem with uncertain prognosis? @ -No Drug Therapy requiring intensive monitoring for toxicity (Heparin, Nitro, Insulin, Cardizem)? @ -No Were any procedures done? @ -No Diagnosis/symptom? @ -Acute toxic encephalopathy, acute alcohol intoxication Acute, or Chronic, or Acute on Chronic? @ -Acute on chronic Uncomplicated (without systemic symptoms) or Complicated (systemic symptoms)? @ -Complicated Side effects of treatment? @ -No Exacerbation, Progression, or Severe Exacerbation? @ -No Poses a threat to life or bodily function? How? (Chest pain, [place], [place], pneumonia, PE, COPD, DKA, ARF, appy, cholecystitis, CVA, Diverticulitis, Homicidal, Suicidal, threat to staff... and all critical care pts) @ -No Disposition Clinical Impression: Alcohol intoxication, Acute respiratory insufficiency Disposition: HOME SELF-CARE Condition: Stable Instructions (If sedation given, give patient instructions): Alcohol Intoxication (ED) Additional Instructions: Please stop drinking alcohol. Follow up with your doctor and return for any new or worsening symptoms Is patient prescribed a controlled substance at d/c from ED?: No Referrals: None,Stated [Primary Care Provider] - 1-2 days Time of Disposition: 02:59
== END 2024-08-19 03:14 | disposition home or self-care (01) ==
LOC: EC 23:37
DX: F10.129 Alcohol abuse with intoxication, unspecified (principal); R06.89 Other abnormalities of breathing; F17.200 Nicotine dependence, unspecified, uncomplicated; Z88.0 Allergy status to penicillin; Z88.6 Allergy status to analgesic agent; Z88.8 Allergy status to other drugs, medicaments and biological substances
CPT/HCPCS: 71046; 82075; 93005; 99284

== ENCOUNTER 2024-08-24 21:26 | Emergency (ER) | payer OTHER ==
[2024-08-24 21:46] VITALS: BP 116/81; PULSE 74; RESP 18; TEMP 98
--- NOTE | 2024-08-24 21:49 | ED ---
General Adult HPI - General Chief complaint: Recheck/Abnormal Lab/Rx Stated complaint: ETOH Time Seen by Provider: 08/24/24 21:45 Source: patient, EMS Mode of arrival: EMS Limitations: no limitations - History of Present Illness Initial comments: 58-year-old female with past medical history of daily alcohol abuse who presents emergency department for alcohol intoxication. Reports that her fianc called EMS on her because she had been drinking. She does admit to this. Report from EMS was that she was having chest pain and this is why they transported her to the hospital. Patient adamantly denies that she is having chest pain or that she told them this. Patient states that she did not want to be transported however they did not give her any choice. Patient is seen multiple times per week in the emergency department for the same complaint. Patient does not want a workup at this time. She is able to speak in full sentences. States that she wants to take a cab home. She denies any symptoms to include chest pain, abdominal pain, difficulty breathing. No nausea, vomiting. Denies any injuries or falls from alcohol use. No other alleviating, precipitating or modifying factors - Related Data Previous Rx's Medication Instructions Recorded Aspirin 81 mg PO DAILY 30 Days #30 tab 08/01/24 Atorvastatin [Lipitor] 40 mg PO DAILY 30 Days #30 tab 08/01/24 Losartan [Cozaar] 25 mg PO DAILY 30 Days #30 tab 08/01/24 Thiamine [Vitamin B-1] 100 mg PO DAILY 30 Days #30 tab 08/01/24 carvediloL [Coreg] 3.125 mg PO BID-W/MEALS 30 Days 08/01/24 #60 tab levETIRAcetam [Keppra] 500 mg PO Q12HR 90 Days #180 tab 08/01/24 Allergies Allergy/AdvReac Type Severity Reaction Status Date / Time Penicillins Allergy Rash/Hives/Swelling Verified 08/24/24 21:46 all over body NSAIDS (Non-Steroidal AdvReac Unknown upset Verified 08/24/24 21:46 Anti-Inflamma stomach sertraline HCl [From Zoloft] AdvReac Suicidal/Ag Verified 08/24/24 21:46 ression Review of Systems ROS Statement: Those systems with pertinent positive or pertinent negative responses have been documented in the HPI. ROS Other: All systems not noted in ROS Statement are negative. Past Medical History Past Medical History: Cancer, COPD, Liver Disease, Myocardial Infarction ([place]), Seizure Disorder, Vascular Disorder Additional Past Medical History / Comment(s): constpation, last bowel movement 4 days ago, feeling bloated,feeling of fullness, and abdominal pain, feels hungry then over eats then vomits to feel better, LAST SEIZURE - JANUARY 2021, "broken heart syndrome"., elevated liver enzymes, "dislocated disks", hx cervical cancer Last Myocardial Infarction Date:: 2019 History of Any Multi-Drug Resistant Organisms: None Reported Past Surgical History: Section, Heart Catheterization, Tubal Ligation Additional Past Surgical History / Comment(s): ORIF rt ankle/hardware later removed, exploratory lap, PAIN CLINIC PROCEDURE, BILAT CATARACTS REMOVED WITH LENS IMPLANTS, procedure to open a vein in left leg-couldn't confirm which leg, partial amputation rt hand middle finger, "procedure to remove cervical cancer" Past Anesthesia/Blood Transfusion Reactions: No Reported Reaction Past Psychological History: Anxiety, Bipolar, Depression, PTSD Smoking Status: Current every day smoker Past Alcohol Use History: Abuse, Daily, Heavy Past Drug Use History: Marijuana - Past Family History Father Family Medical History: Cancer, Prostate Disorder, Pulmonary Embolus Sister(s) Family Medical History: Cancer Brother(s) Family Medical History: Cancer Additional Family Medical History / Comment(s): colon and bladder General Exam Limitations: no limitations General appearance: alert, appears intoxicated Head exam: Present: atraumatic, normocephalic, normal inspection Eye exam: Present: normal appearance, PERRL, EOMI. Absent: scleral icterus, conjunctival injection, periorbital swelling ENT exam: Present: normal exam, mucous membranes moist Neck exam: Present: normal inspection. Absent: tenderness, meningismus, lymphadenopathy Respiratory exam: Present: normal lung sounds bilaterally. Absent: respiratory distress, wheezes, rales, rhonchi, stridor Cardiovascular Exam: Present: regular rate, normal rhythm, normal heart sounds. Absent: systolic murmur, diastolic murmur, rubs, gallop, clicks GI/Abdominal exam: Present: soft, normal bowel sounds. Absent: distended, tenderness, guarding, rebound, rigid Extremities exam: Present: normal inspection, full ROM, normal capillary refill. Absent: tenderness, pedal edema, joint swelling, calf tenderness Back exam: Present: normal inspection Neurological exam: Present: alert, oriented X3, CN II-XII intact Psychiatric exam: Present: normal affect, normal mood Skin exam: Present: warm, dry, intact, normal color. Absent: rash Course Vital Signs 08/24/24 21:40 Temperature 98.0 F Pulse Rate 74 Respiratory 18 Rate Blood Pressure 116/81 O2 Sat by Pulse 96 Oximetry Medical Decision Making - Medical Decision Making Was pt. sent in by a medical professional or institution (, BENI, TRAILER TRUCK DRIVER, urgent care, hospital, or long-term...) When possible be specific @ -No Did you speak to anyone other than the patient for history (EMS, parent, family, police, friend...)? What history was obtained from this source @ -EMS for history Did you review nursing and triage notes (agree or disagree)? Why? @ -I reviewed and agree with nursing and triage notes Were old charts reviewed (outside hosp., previous admission, EMS record, old EKG, old radiological studies, urgent care reports/EKG's, long-term records)? Report findings @ -No old charts were reviewed Differential Diagnosis (chest pain, altered mental status, abdominal pain women, abdominal pain men, vaginal bleeding, weakness, fever, dyspnea, syncope, headache, dizziness, GI bleed, back pain, seizure, CVA, palpatations, mental health, musculoskeletal)? @ -Alcohol intoxication, malingering EKG interpreted by me (3pts min.). @ -Not completed X-rays interpreted by me (1pt min.). @ -None done CT interpreted by me (1pt min.). @ -None done U/S interpreted by me (1pt. min.). @ -None done What testing was considered but not performed or refused? (CT, X-rays, U/S, labs)? Why? @ -EKG, laboratory studies however patient was refusing all care What meds were considered but not given or refused? Why? @ -None Did you discuss the management of the patient with other professionals (professionals i.e. BENI Dill, TRAILER TRUCK DRIVER, lab, RT, psych nurse, social services technician, faculty support coordinator, teacher, intelligence officer basic, case management specialist)? Give summary @ -No Was smoking cessation discussed for >3mins.? @ -No Was critical care preformed (if so, how long)? @ -No Were there social determinants of health that impacted care today? How? (Homelessness, low income, unemployed, alcoholism, drug addiction, transportation, low edu. Level, literacy, decrease access to med. care, penitentiary, rehab)? @ -No Was there de-escalation of care discussed even if they declined (Discuss DNR or withdrawal of care, Hospice)? DNR status @ -No What co-morbidities impacted this encounter? (DM, HTN, Smoking, COPD, CAD, Cancer, CVA, ARF, Chemo, Hep., AIDS, mental health diagnosis, sleep apnea, morbid obesity)? @ -Alcohol abuse Was patient admitted / discharged? Hospital course, mention meds given and route, prescriptions, significant lab abnormalities, going to OR and other pertinent info. @ -Arrival patient seen and evaluated in triage. She is loaded off of the EMS stretcher and immediately wants to leave. States that her fianc called and she did not want to come to the hospital. She does admit to drinking. Wants to call herself a cab. States that she will not be driving. Patient is refusing all laboratory studies and imaging. Reports that she "is just wasting everyone's time". I do not feel that it is appropriate to force care upon this patient. She does have a safe ride home. I did discuss with the patient at length alcohol cessation. Patient understood this. Patient was discharged but left without receiving her paperwork. Undiagnosed new problem with uncertain prognosis? @ -No Drug Therapy requiring intensive monitoring for toxicity (Heparin, Nitro, Insulin, Cardizem)? @ -No Were any procedures done? @ -No Diagnosis/symptom? @ -Acute alcohol intoxication Acute, or Chronic, or Acute on Chronic? @ -Acute Uncomplicated (without systemic symptoms) or Complicated (systemic symptoms)? @ -Complicated Side effects of treatment? @ -No Exacerbation, Progression, or Severe Exacerbation? @ -No Poses a threat to life or bodily function? How? (Chest pain, [place], [place], pneumonia, PE, COPD, DKA, ARF, appy, cholecystitis, CVA, Diverticulitis, Homicidal, Suicidal, threat to staff... and all critical care pts) @ -No Disposition Clinical Impression: Alcohol intoxication Disposition: HOME SELF-CARE Condition: Stable Instructions (If sedation given, give patient instructions): Alcohol Intoxication (ED) Additional Instructions: PLEASE STOP DRINKING. CONSIDER REHAB. RETURN IF YOU HAVE A MEDICAL EMERGENCY. Is patient prescribed a controlled substance at d/c from ED?: No Referrals: None,Stated [Primary Care Provider] - 1-2 days Time of Disposition: 21:49
== END 2024-08-24 21:59 | disposition home or self-care (01) ==
LOC: EC 21:26
DX: F10.129 Alcohol abuse with intoxication, unspecified (principal); F17.200 Nicotine dependence, unspecified, uncomplicated; Z88.0 Allergy status to penicillin; Z88.6 Allergy status to analgesic agent; Z88.8 Allergy status to other drugs, medicaments and biological substances
CPT/HCPCS: 99284

== ENCOUNTER 2024-08-29 16:00 | Emergency (ER) | payer OTHER ==
[2024-08-29 16:11] VITALS: TEMP 98
--- NOTE | 2024-08-29 16:46 | ED ---
Chest Pain HPI - General Chief Complaint: Chest Pain Stated Complaint: Chest Pain Time Seen by Provider: 08/29/24 16:04 Source: patient Mode of arrival: EMS Limitations: altered mental status - History of Present Illness Initial Comments: Dictation was produced using [employer] dictation software. please excuse any grammatical, word or spelling errors. Chief Complaint: 58-year-old alcoholic female presents to the emergency department with chest pain History of Present Illness: Patient is 58-year-old female well-known to our emergency department for multiple visitations for a myriad of complaints mostly alcohol related issues. States that she has chest pain. Denies any radiation of symptoms. No associated diaphoresis or nausea states that she feels ill. She does report having several alcoholic drinks prior to arrival. The ROS documented in this emergency department record has been reviewed and confirmed by me. Those systems with pertinent positive or negative responses have been documented in the HPI. All other systems are other negative and/or noncontributory. - Related Data Previous Rx's Medication Instructions Recorded Aspirin 81 mg PO DAILY 30 Days #30 tab 08/01/24 Atorvastatin [Lipitor] 40 mg PO DAILY 30 Days #30 tab 08/01/24 Losartan [Cozaar] 25 mg PO DAILY 30 Days #30 tab 08/01/24 Thiamine [Vitamin B-1] 100 mg PO DAILY 30 Days #30 tab 08/01/24 carvediloL [Coreg] 3.125 mg PO BID-W/MEALS 30 Days 08/01/24 #60 tab levETIRAcetam [Keppra] 500 mg PO Q12HR 90 Days #180 tab 08/01/24 Allergies Allergy/AdvReac Type Severity Reaction Status Date / Time Penicillins Allergy Rash/Hives/Swelling Verified 08/24/24 21:46 all over body NSAIDS (Non-Steroidal AdvReac Unknown upset Verified 08/24/24 21:46 Anti-Inflamma stomach sertraline HCl [From Zoloft] AdvReac Suicidal/Ag Verified 08/24/24 21:46 ression Review of Systems ROS Statement: Those systems with pertinent positive or pertinent negative responses have been documented in the HPI. ROS Other: All systems not noted in ROS Statement are negative. EKG Findings - EKG Comments: EKG Findings:: My EKG interpretation: Ventricular rate 61, sinus rhythm,. 173, cures 90, QTc 420. No [place] prolongation, no QTC prolongation, no ST or T-wave changes noted. Overall, this EKG is unremarkable Past Medical History Past Medical History: Cancer, COPD, Liver Disease, Myocardial Infarction ([place]), Seizure Disorder, Vascular Disorder Additional Past Medical History / Comment(s): constpation, last bowel movement 4 days ago, feeling bloated,feeling of fullness, and abdominal pain, feels hungry then over eats then vomits to feel better, LAST SEIZURE - JANUARY 2021, "broken heart syndrome"., elevated liver enzymes, "dislocated disks", hx cervical cancer Last Myocardial Infarction Date:: 2019 History of Any Multi-Drug Resistant Organisms: None Reported Past Surgical History: Section, Heart Catheterization, Tubal Ligation Additional Past Surgical History / Comment(s): ORIF rt ankle/hardware later removed, exploratory lap, PAIN CLINIC PROCEDURE, BILAT CATARACTS REMOVED WITH LENS IMPLANTS, procedure to open a vein in left leg-couldn't confirm which leg, partial amputation rt hand middle finger, "procedure to remove cervical cancer" Past Anesthesia/Blood Transfusion Reactions: No Reported Reaction Past Psychological History: Anxiety, Bipolar, Depression, PTSD Smoking Status: Current every day smoker Past Alcohol Use History: Abuse, Daily, Heavy Past Drug Use History: Marijuana - Past Family History Father Family Medical History: Cancer, Prostate Disorder, Pulmonary Embolus Sister(s) Family Medical History: Cancer Brother(s) Family Medical History: Cancer Additional Family Medical History / Comment(s): colon and bladder General Exam - General Exam Comments Initial Comments: PHYSICAL EXAM: General Impression: Alert and oriented, smells of EtOH HEENT: Normocephalic atraumatic, extra-ocular movements intact, pupils equal and reactive to light bilaterally, mucous membranes moist. Cardiovascular: Heart regular rate and rhythm Chest: Able to complete full sentences, no retractions, no tachypnea Abdomen: abdomen soft, non-tender, non-distended, no organomegaly Musculoskeletal: Pulses present and equal in all extremities, no peripheral edema Motor: no focal deficits noted Neurological: CN II-XII grossly intact, no focal motor or sensory deficits noted Skin: Intact with no visualized rashes Psych: Normal affect and mood Limitations: altered mental status Course Vital Signs 08/29/24 08/29/24 08/29/24 16:05 16:10 16:37 Temperature 98 F Pulse Rate 68 98 Pulse Rate [ 65 Assistant Tennis Coach ] Respiratory 20 18 16 Rate Blood Pressure 156/91 148/90 O2 Sat by Pulse 98 99 Oximetry Chest Pain MDM - MDM Was pt. sent in by a medical professional or institution (, PA, ENGRAVING OPERATOR, urgent care, hospital, or usp...) When possible be specific @ -No Did you speak to anyone other than the patient for history (EMS, parent, family, police, friend...)? What history was obtained from this source @ -No Did you review nursing and triage notes (agree or disagree)? Why? @ -I reviewed and agree with nursing and triage notes Were old charts reviewed (outside hosp., previous admission, EMS record, old EKG, old radiological studies, urgent care reports/EKG's, usp records)? Report findings @ -No old charts were reviewed Differential Diagnosis (chest pain, altered mental status, abdominal pain women, abdominal pain men, vaginal bleeding, musculoskeletal, weakness, fever, dyspnea, syncope, headache, dizziness, GI bleed, back pain, seizure, CVA, palpatations, mental health)? @ -Differential Chest Pain: Stable Angina, Unstable Angina, STEMI, NSTEMI Aortic Dissection, Pneumothorax, Musculoskeletal, Esophageal Spasm GERD, Cholecystitis, Pancreatitis, Zoster, this is not meant to be an all-inclusive list. EKG interpreted by me (3pts min.). @ -See above X-rays interpreted by me (1pt min.). @ -Chest x-ray is nonacute CT interpreted by me (1pt min.). @ -None done U/S interpreted by me (1pt. min.). @ -None done What testing was considered but not performed or refused? (CT, X-rays, U/S, labs)? Why? @ -None What meds were considered but not given or refused? Why? @ -None Was smoking cessation discussed for >3mins.? @ -No Were there social determinants of health that impacted care today? How? (Homelessness, low income, unemployed, alcoholism, drug addiction, transportation, low edu. Level, literacy, decrease access to med. care, alf, rehab)? @ -Alcoholism Was there de-escalation of care discussed even if they declined (Discuss DNR or withdrawal of care, Hospice)? DNR status @ -No What co-morbidities impacted this encounter? (DM, HTN, Smoking, COPD, CAD, Cancer, CVA, ARF, Chemo, Hep., AIDS, mental health diagnosis, sleep apnea, morbid obesity)? @ -Alcoholism Was patient admitted / discharged? Hospital course, mention meds given and route, prescriptions, significant lab abnormalities, going to OR and other pertinent info. @ -58-year-old female presents to the emergency department with chest pain. Patient is well-known to the emergency department for multiple visitations for various complaints. Patient was admitted in July with cardiology consultation. Patient had a cardiac catheterization 2016 showing normal coronaries. Laboratory evaluation is unremarkable. Troponin is negative. Serum alcohol is 273. Patient is functional at the bedside. She is tolerating oral intake and is alert and oriented. Patient discharged. Advised follow-up with primary care doctor. Did you discuss the management of the patient with other professionals (professionals i.e. , PA, ENGRAVING OPERATOR, lab, RT, psych nurse, criminal justice social worker, collaborating supervising physician, teacher, electronic warfare officer, director of casework services)? Give summary @ -No Was critical care preformed (if so, how long)? @ -No Undiagnosed new problem with uncertain prognosis? @ -No Drug Therapy requiring intensive monitoring for toxicity (Heparin, Nitro, Insulin, Cardizem)? @ -No Were any procedures done? @ -No Diagnosis/symptom? Acute, or Chronic, or Acute on Chronic? Uncomplicated (without systemic symptoms) or Complicated (systemic symptoms)? @ -Chest pain Side effects of treatment? @ -No Exacerbation, Progression, or Severe Exacerbation? @ -No Poses a threat to life or bodily function? How? (Chest pain, [place], [place], pneumonia, PE, COPD, DKA, ARF, appy, cholecystitis, CVA, Diverticulitis, Homicidal, Suicidal, threat to staff... and all critical care pts) @ -No Disposition Clinical Impression: Chest pain Disposition: HOME SELF-CARE Condition: Fair Instructions (If sedation given, give patient instructions): Chest Pain (ED) Is patient prescribed a controlled substance at d/c from ED?: No Referrals: None,Stated [Primary Care Provider] - 1-2 days Time of Disposition: 18:20
[2024-08-29 16:51] LABS: Basophils % (A) 1 %; Eosinophils # (A) 0.1 k/uL (0-0.7); Eosinophils % (A) 1 %; HCT 45.6 % (34.0-46.0); HGB 15.3 gm/dL (11.4-16.0); Lymphocytes # (A) 2.4 k/uL (1.0-4.8); Lymphocytes % (A) 41 %; MCH 32.1 pg (25.0-35.0); MCHC 33.4 g/dL (31.0-37.0); Mean Platelet Volume 6.6; Monocytes # (A) 0.8 k/uL (0-1.0); Monocytes % (A) 13 %; Neutrophils # (A) 2.3 k/uL (1.3-7.7); Neutrophils % (A) 40 %; Platelet Count 216 k/uL (150-450); RBC 4.75 m/uL (3.80-5.40); RDW 14.2 % (11.5-15.5); WBC 5.8 k/uL (3.8-10.6)
[2024-08-29 16:56] LABS: African American GFR (CKD) >90 (>60 ml/min/1.73 sqM); Anion Gap 8 mmol/L; Blood Urea Nitrogen 3 mg/dL (7-17); Calcium 9.3 mg/dL (8.4-10.2); Carbon Dioxide 27 mmol/L (22-30); Chloride 102 mmol/L (98-107); Glucose 87 mg/dL (74-99); Non-African American GFR(CKD) >90 (>60 ml/min/1.73 sqM); Sodium 137 mmol/L (137-145)
[2024-08-29 16:58] LABS: Alcohol 273 mg/dL; Potassium 4.3 mmol/L (3.5-5.1)
--- NOTE | 2024-08-29 17:32 | XR ---
EXAMINATION TYPE: XR chest 2V DATE OF EXAM: 08/29/2024 5:23 PM COMPARISON: Previous chest radiograph 08/19/2024. CLINICAL INDICATION: Female, 58 years old with history of chest pain; [facility] TECHNIQUE: XR chest 2V Frontal and lateral views of the chest. FINDINGS: Lungs/Pleura: There is no evidence of pleural effusion, focal consolidation, or pneumothorax. Pulmonary vascularity: Unremarkable. Heart/mediastinum: Cardiomediastinal silhouette is unremarkable. Musculoskeletal: No acute osseous pathology. Other findings: None IMPRESSION: No acute cardiopulmonary disease/process. [facility], , 08/29/2024 5:30 PM
[2024-08-29 18:41] VITALS: BP 109/82; PULSE 67; RESP 18
== END 2024-08-29 18:41 | disposition home or self-care (01) ==
LOC: EC 16:00
DX: R07.9 Chest pain, unspecified (principal); F10.20 Alcohol dependence, uncomplicated; F17.200 Nicotine dependence, unspecified, uncomplicated; Z88.0 Allergy status to penicillin; Z88.6 Allergy status to analgesic agent; Z88.8 Allergy status to other drugs, medicaments and biological substances; Y90.8 Blood alcohol level of 240 mg/100 ml or more
CPT/HCPCS: 36415; 93005; 80048; 84484; 85025; 71046; 99285; G0480; 80320

== ENCOUNTER 2024-09-01 05:19 | Emergency (ER) | payer OTHER ==
[2024-09-01 05:28] VITALS: RESP 18; TEMP 98
[2024-09-01 05:47] LABS: Basophils % (A) 0 %; Eosinophils # (A) 0.1 k/uL (0-0.7); Eosinophils % (A) 1 %; HCT 42.2 % (34.0-46.0); HGB 13.9 gm/dL (11.4-16.0); Lymphocytes # (A) 2.2 k/uL (1.0-4.8); Lymphocytes % (A) 33 %; MCH 32.3 pg (25.0-35.0); MCHC 32.9 g/dL (31.0-37.0); MCV 98.2 fL (80.0-100.0); Monocytes % (A) 15 %; Neutrophils # (A) 3.1 k/uL (1.3-7.7); Neutrophils % (A) 47 %; Platelet Count 178 k/uL (150-450); RDW 14.7 % (11.5-15.5); WBC 6.5 k/uL (3.8-10.6)
--- NOTE | 2024-09-01 06:23 | ED ---
General Adult HPI - General Source: patient, EMS, RN notes reviewed Mode of arrival: EMS Limitations: no limitations <Louann Pryor - Last Filed: 09/01/24 06:22> - General Source: patient, RN notes reviewed Limitations: no limitations <Tray Alfred - Last Filed: 09/01/24 09:00> - General Chief complaint: Arrhythmia/Palpitations Stated complaint: palpitations Time Seen by Provider: 09/01/24 05:30 - History of Present Illness Initial comments: Quick [id number] female presenting to emergency department via EMS for complaints of overall not feeling well. She states that she has been experiencing nausea with no vomiting, cough with congestion and chest tightness. (Louann Pryor) Patient is a 58-year-old female presenting to the emergency department not feeling well. Patient has a difficult time describing her symptoms. Patient states she has chronic chest pain. Patient states she has this pretty much daily, no change in her chronic chest pain. Patient does have palpitations. Patient also has chronic pain throughout her body and request pain medicine. Patient states last time they gave her morphine and she liked that. Patient states she recently came back to this area and has not yet found a primary care physician. Patient states she plans on calling Dr. Arceo when she leaves here today as she has seen him in the past. Patient admits to drinking alcohol earlier. (Tray Alfred) - Related Data Previous Rx's Medication Instructions Recorded Aspirin 81 mg PO DAILY 30 Days #30 tab 08/01/24 Atorvastatin [Lipitor] 40 mg PO DAILY 30 Days #30 tab 08/01/24 Losartan [Cozaar] 25 mg PO DAILY 30 Days #30 tab 08/01/24 Thiamine [Vitamin B-1] 100 mg PO DAILY 30 Days #30 tab 08/01/24 carvediloL [Coreg] 3.125 mg PO BID-W/MEALS 30 Days 08/01/24 #60 tab levETIRAcetam [Keppra] 500 mg PO Q12HR 90 Days #180 tab 08/01/24 carvediloL [Coreg] 3.125 mg PO BID #14 tablet 09/01/24 levETIRAcetam [Keppra] 500 mg PO Q12HR #14 tab 09/01/24 Allergies Allergy/AdvReac Type Severity Reaction Status Date / Time Penicillins Allergy Rash/Hives/Swelling Verified 09/01/24 05:28 all over body NSAIDS (Non-Steroidal AdvReac Unknown upset Verified 09/01/24 05:28 Anti-Inflamma stomach sertraline HCl [From Zoloft] AdvReac Suicidal/Ag Verified 09/01/24 05:28 ression Review of Systems ROS Other: All systems not noted in ROS Statement are negative. <Louann Pryor - Last Filed: 09/01/24 06:22> ROS Other: All systems not noted in ROS Statement are negative. Constitutional: Denies: fever Eyes: Denies: eye pain ENT: Reports: congestion Cardiovascular: Reports: palpitations Endocrine: Reports: fatigue Musculoskeletal: Reports: as per HPI <Tray Alfred - Last Filed: 09/01/24 09:00> ROS Statement: Those systems with pertinent positive or pertinent negative responses have been documented in the HPI. Past Medical History Past Medical History: Cancer, COPD, Liver Disease, Myocardial Infarction ([place]), Seizure Disorder, Vascular Disorder Additional Past Medical History / Comment(s): constpation, last bowel movement 4 days ago, feeling bloated,feeling of fullness, and abdominal pain, feels hungry then over eats then vomits to feel better, LAST SEIZURE - JANUARY 2021, "broken heart syndrome"., elevated liver enzymes, "dislocated disks", hx cervical cancer Last Myocardial Infarction Date:: 2019 History of Any Multi-Drug Resistant Organisms: None Reported Past Surgical History: Section, Heart Catheterization, Tubal Ligation Additional Past Surgical History / Comment(s): ORIF rt ankle/hardware later stan rufino, exploratory lap, PAIN CLINIC PROCEDURE, BILAT CATARACTS REMOVED WITH LENS IMPLANTS, procedure to open a vein in left leg-couldn't confirm which leg, partial amputation rt hand middle finger, "procedure to remove cervical cancer" Past Anesthesia/Blood Transfusion Reactions: No Reported Reaction Past Psychological History: Anxiety, Bipolar, Depression, PTSD Smoking Status: Current every day smoker Past Alcohol Use History: Abuse, Daily, Heavy Past Drug Use History: Marijuana - Past Family History Father Family Medical History: Cancer, Prostate Disorder, Pulmonary Embolus Sister(s) Family Medical History: Cancer Brother(s) Family Medical History: Cancer Additional Family Medical History / Comment(s): colon and bladder <Louann Pryor - Last Filed: 09/01/24 06:22> General Exam Limitations: no limitations <Louann Pryor - Last Filed: 09/01/24 06:22> Limitations: no limitations General appearance: alert, in no apparent distress Head exam: Present: normocephalic Eye exam: Present: normal appearance Neck exam: Present: normal inspection Respiratory exam: Present: normal lung sounds bilaterally Cardiovascular Exam: Present: regular rate, normal rhythm, normal heart sounds Expanded Peripheral pulses: 2+: Radial (R), Radial (L), Posterior Tibialis (R), Posterior Tibialis (L) GI/Abdominal exam: Present: soft. Absent: tenderness Extremities exam: Present: normal inspection. Absent: pedal edema, calf tenderness Neurological exam: Present: alert Psychiatric exam: Present: normal affect, normal mood Skin exam: Present: normal color <Tray Alfred - Last Filed: 09/01/24 09:00> - General Exam Comments Initial Comments: Visual Physical Exam Vital signs reviewed General: Well-appearing, intoxicated, no acute distress. 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 sent in by a medical professional or institution (, BENI, LIBRARY DIRECTOR, urgent care, hospital, or prison...) When possible be specific @ -No Did you speak to anyone other than the patient for history (EMS, parent, family, police, friend...)? What history was obtained from this source @ -No Did you review nursing and triage notes (agree or disagree)? Why? @ -I reviewed and agree with nursing and triage notes Were old charts reviewed (outside hosp., previous admission, EMS record, old EKG, old radiological studies, urgent care reports/EKG's, prison records)? Report findings @ -No old charts were reviewed Differential Diagnosis (chest pain, altered mental status, abdominal pain women, abdominal pain men, vaginal bleeding, weakness, fever, dyspnea, syncope, he adache, dizziness, GI bleed, back pain, seizure, CVA, palpatations, mental health, musculoskeletal)? @ -D differential Palpitations Ventricular arrhythmias, atrial arrhythmias, myocardial infarction, anemia, thyrotoxicosis, electrolyte imbalance, hypokalemia, pulmonary embolism, pulmonary disease, drugs, alcohol, anxiety, stress.... This is not meant to be an all-inclusive list. EKG interpreted by me (3pts min.). @ -As above X-rays interpreted by me (1pt min.). @ -None done CT interpreted by me (1pt min.). @ -None done U/S interpreted by me (1pt. min.). @ -None done What testing was considered but not performed or refused? (CT, X-rays, U/S, labs)? Why? @ -None What meds were considered but not given or refused? Why? @ -None Did you discuss the management of the patient with other professionals (professionals i.e. , BENI, LIBRARY DIRECTOR, lab, RT, psych nurse, social worker health services, global commodity manager, teacher, consumer loan officer, case operator)? Give summary @ -No Was smoking cessation discussed for >3mins.? @ -No Was critical care preformed (if so, how long)? @ -No Were there social determinants of health that impacted care today? How? (Homelessness, low income, unemployed, alcoholism, drug addiction, tra nsportation, low edu. Level, literacy, decrease access to med. care, custodial, rehab)? @ -No Was there de-escalation of care discussed even if they declined (Discuss DNR or withdrawal of care, Hospice)? DNR status @ -No What co-morbidities impacted this encounter? (DM, HTN, Smoking, COPD, CAD, Cancer, CVA, ARF, Chemo, Hep., AIDS, mental health diagnosis, sleep apnea, morbid obesity)? @ -Chronic chest pain Was patient admitted / discharged? Hospital course, mention meds given and route, prescriptions, significant lab abnormalities, going to OR and other pertinent info. @ -Patient presents with nonspecific symptoms. Evaluation unremarkable. Patient reevaluated and resting comfortably in bed. Patient is unclear which medicine she is supposed to be on. Patient also needs a refill for her Keppra. Patient again states that she will follow-up with primary care physician and try to schedule appointment as soon as he leaves here. Patient is updated on results and need for close follow-up. Undiagnosed new problem with uncertain prognosis? @ -No Drug Therapy requiring intensive monitoring for toxicity (Heparin, Nitro, Insulin, Cardizem)? @ -No Were any procedures done? @ -No Diagnosis/symptom? @ -Palpitations Acute, or Chronic, or Acute on Chronic? @ -Acute Uncomplicated (without systemic symptoms) or Complicated (systemic symptoms)? @ -Default Side effects of treatment? @ -No Exacerbation, Progression, or Severe Exacerbation? @ -No Poses a threat to life or bodily function? How? (Chest pain, USA, MT, pneumonia, PE, COPD, DKA, ARF, appy, cholecystitis, CVA, Diverticulitis, Homicidal, Suicidal, threat to staff... and all critical care pts) @ -No (Tray Alfred) - Lab Data Lab Results 09/01/24 09/01/24 09/01/24 Range/Units 05:33 07:00 07:00 WBC 6.5 (3.8-10.6) k/uL RBC 4.30 (3.80-5.40) m/uL Hgb 13.9 (11.4-16.0) gm/dL Hct 42.2 (34.0-46.0) % MCV 98.2 (80.0-100.0) fL MCH 32.3 (25.0-35.0) pg MCHC 32.9 (31.0-37.0) g/dL RDW 14.7 (11.5-15.5) % Plt Count 178 (150-450) k/uL MPV 8.0 Neutrophils % 47 % Lymphocytes % 33 % Monocytes % 15 % Eosinophils % 1 % Basophils % 0 % Neutrophils # 3.1 (1.3-7.7) k/uL Lymphocytes # 2.2 (1.0-4.8) k/uL Monocytes # 1.0 (0-1.0) k/uL Eosinophils # 0.1 (0-0.7) k/uL Basophils # 0.0 (0-0.2) k/uL PT (10.0-12.5) sec INR (<1.2) APTT (22.0-30.0) sec Sodium 137 (137-145) mmol/L Potassium 4.5 (3.5-5.1) mmol/L Chloride 106 (98-107) mmol/L Carbon Dioxide 22 (22-30) mmol/L Anion Gap 9 mmol/L BUN <2 L (7-17) mg/dL Creatinine 0.42 L (0.52-1.04) mg/dL Est GFR (CKD-EPI)AfAm >90 (>60 ml/min/1.73 sqM) Est GFR (CKD-EPI)NonAf >90 (>60 ml/min/1.73 sqM) Glucose 104 H (74-99) mg/dL Calcium 9.2 (8.4-10.2) mg/dL Magnesium 1.6 (1.6-2.3) mg/dL Total Bilirubin 1.1 (0.2-1.3) mg/dL AST 62 H (14-36) U/L ALT 54 H (4-34) U/L Alkaline Phosphatase 101 (38-126) U/L Troponin I 0.021 (0.000-0.034) ng/mL Total Protein 7.0 (6.3-8.2) g/dL Albumin 4.5 (3.5-5.0) g/dL 09/01/24 Range/Units 07:52 WBC (3.8-10.6) k/uL RBC (3.80-5.40) m/uL Hgb (11.4-16.0) gm/dL Hct (34.0-46.0) % MCV (80.0-100.0) fL MCH (25.0-35.0) pg MCHC (31.0-37.0) g/dL RDW (11.5-15.5) % Plt Count (150-450) k/uL MPV Neutrophils % % Lymphocytes % % Monocytes % % Eosinophils % % Basophils % % Neutrophils # (1.3-7.7) k/uL Lymphocytes # (1.0-4.8) k/uL Monocytes # (0-1.0) k/uL Eosinophils # (0-0.7) k/uL Basophils # (0-0.2) k/uL PT 10.5 (10.0-12.5) sec INR 0.9 (<1.2) APTT 20.0 L (22.0-30.0) sec Sodium (137-145) mmol/L Potassium (3.5-5.1) mmol/L Chloride (98-107) mmol/L Carbon Dioxide (22-30) mmol/L Anion Gap mmol/L BUN (7-17) mg/dL Creatinine (0.52-1.04) mg/dL Est GFR (CKD-EPI)AfAm (>60 ml/min/1.73 sqM) Est GFR (CKD-EPI)NonAf (>60 ml/min/1.73 sqM) Glucose (74-99) mg/dL Calcium (8.4-10.2) mg/dL Magnesium (1.6-2.3) mg/dL Total Bilirubin (0.2-1.3) mg/dL AST (14-36) U/L ALT (4-34) U/L Alkaline Phosphatase (38-126) U/L Troponin I (0.000-0.034) ng/mL Total Protein (6.3-8.2) g/dL Albumin (3.5-5.0) g/dL Disposition <Louann Pryor - Last Filed: 09/01/24 06:22> Is patient prescribed a controlled substance at d/c from ED?: No Time of Disposition: 08:59 <Tray Alfred - Last Filed: 09/01/24 09:00> Clinical Impression: Palpitations Disposition: HOME SELF-CARE Condition: Stable Instructions (If sedation given, give patient instructions): Heart Palpitations (ED) Additional Instructions: Prescription for Keppra and blood pressure medication sent to pharmacy. Please do find primary care physician and follow-up in the next 1 or 2 days for recheck. Return for increased heart rate, difficulty breathing, chest pain, fevers, worsening symptoms or any other concerns. Prescriptions: carvediloL [Coreg] 3.125 mg PO BID #14 tablet levETIRAcetam [Keppra] 500 mg PO Q12HR #14 tab Referrals: None,Stated [Primary Care Provider] - 1-2 days Theodore Arceo MD [STAFF PHYSICIAN] - 1-2 days Forms: Area PCPs
[2024-09-01 08:05] LABS: INR 0.9 (<1.2); Prothrombin Time 10.5 sec (10.0-12.5)
[2024-09-01 08:22] LABS: ALT 54 U/L (4-34); African American GFR (CKD) >90 (>60 ml/min/1.73 sqM); Albumin 4.5 g/dL (3.5-5.0); Anion Gap 9 mmol/L; Blood Urea Nitrogen <2 mg/dL (7-17); Calcium 9.2 mg/dL (8.4-10.2); Carbon Dioxide 22 mmol/L (22-30); Chloride 106 mmol/L (98-107); Glucose 104 mg/dL (74-99); Non-African American GFR(CKD) >90 (>60 ml/min/1.73 sqM); Sodium 137 mmol/L (137-145); Total Bilirubin 1.1 mg/dL (0.2-1.3)
[2024-09-01 08:23] LABS: AST 62 U/L (14-36); Alkaline Phosphatase 101 U/L (38-126); Magnesium 1.6 mg/dL (1.6-2.3); Potassium 4.5 mmol/L (3.5-5.1)
[2024-09-01] MEDS: LOSARTAN 25 MG TAB PO STA (08:49)
[2024-09-01] MEDS: carvediloL 3.125 MG TAB PO STA (08:49)
[2024-09-01 09:14] VITALS: BP 133/101; PULSE 81
== END 2024-09-01 09:14 | disposition home or self-care (01) ==
LOC: EC 05:19
DX: R00.2 Palpitations (principal); F17.200 Nicotine dependence, unspecified, uncomplicated; Z88.0 Allergy status to penicillin; Z88.6 Allergy status to analgesic agent; Z88.8 Allergy status to other drugs, medicaments and biological substances
CPT/HCPCS: 36415; 80053; 83735; 84484; 85025; 85610; 85730; 93005; 99285

== ENCOUNTER 2024-09-05 11:33 | Emergency (ER) | payer OTHER ==
--- NOTE | 2024-09-05 13:33 | ED ---
General Adult HPI - General Chief complaint: Nausea/Vomiting/Diarrhea Stated complaint: LESA Time Seen by Provider: 09/05/24 11:38 Source: patient, EMS, RN notes reviewed Mode of arrival: EMS Limitations: no limitations - History of Present Illness Initial comments: 58-year-old female presents to the emergency department for evaluation of cough, muscle aches. Patient states that she was recently diagnosed with the flu and had improvement in her symptoms. This was back in June. She states that now she feels like the symptoms are back. She denies any fever, chills. Denies any shortness of breath. Endorses pain throughout her body. She does take Pray 7.5 at home. Has a history of alcoholism. - Related Data Previous Rx's Medication Instructions Recorded Aspirin 81 mg PO DAILY 30 Days #30 tab 08/01/24 levETIRAcetam [Keppra] 500 mg PO Q12HR #14 tab 09/01/24 Fluconazole [Diflucan] 150 mg PO ONCE #2 tab 09/05/24 Allergies Allergy/AdvReac Type Severity Reaction Status Date / Time Penicillins Allergy Rash/Hives/Swelling Verified 09/05/24 14:00 all over body NSAIDS (Non-Steroidal AdvReac Unknown upset Verified 09/05/24 14:00 Anti-Inflamma stomach sertraline HCl [From Zoloft] AdvReac Suicidal/Ag Verified 09/05/24 14:00 ression Review of Systems ROS Statement: Those systems with pertinent positive or pertinent negative responses have been documented in the HPI. ROS Other: All systems not noted in ROS Statement are negative. Past Medical History Past Medical History: Cancer, COPD, Liver Disease, Myocardial Infarction ([place]), Seizure Disorder, Vascular Disorder Additional Past Medical History / Comment(s): constpation, feeling bloated,feeling of fullness, and abdominal pain, feels hungry then over eats then vomits to feel better, LAST SEIZURE - JANUARY 2021, "broken heart syndrome"., elevated liver enzymes, "dislocated disks", hx cervical cancer Last Myocardial Infarction Date:: 2019 History of Any Multi-Drug Resistant Organisms: None Reported Past Surgical History: Section, Heart Catheterization, Tubal Ligation Additional Past Surgical History / Comment(s): ORIF rt ankle/hardware later removed, exploratory lap, PAIN CLINIC PROCEDURE, BILAT CATARACTS REMOVED WITH L ENS IMPLANTS, procedure to open a vein in left leg-couldn't confirm which leg, partial amputation rt hand middle finger, "procedure to remove cervical cancer" Past Anesthesia/Blood Transfusion Reactions: No Reported Reaction Past Psychological History: Anxiety, Bipolar, Depression, PTSD Smoking Status: Current every day smoker Past Alcohol Use History: Abuse, Daily, Heavy Past Drug Use History: Marijuana - Past Family History Father Family Medical History: Cancer, Prostate Disorder, Pulmonary Embolus Sister(s) Family Medical History: Cancer Brother(s) Family Medical History: Cancer Additional Family Medical History / Comment(s): colon and bladder General Exam Limitations: no limitations General appearance: alert, in no apparent distress Head exam: Present: atraumatic, normocephalic, normal inspection Eye exam: Present: normal appearance, PERRL, EOMI. Absent: scleral icterus, conjunctival injection, periorbital swelling ENT exam: Present: normal exam, mucous membranes moist Neck exam: Present: normal inspection. Absent: tenderness, meningismus, lymphadenopathy Respiratory exam: Present: normal lung sounds bilaterally. Absent: respiratory distress, wheezes, rales, rhonchi, stridor Cardiovascular Exam: Present: regular rate, normal rhythm, normal heart sounds. Absent: systolic murmur, diastolic murmur, rubs, gallop, clicks Extremities exam: Present: normal inspection, full ROM, normal capillary refill. Absent: tenderness, pedal edema, joint swelling, calf tenderness Neurological exam: Present: alert, oriented X3 Psychiatric exam: Present: normal affect, normal mood Skin exam: Present: warm, dry, intact, normal color. Absent: rash Course Vital Signs 09/05/24 09/05/24 11:38 14:30 Temperature 97.6 F 98.1 F Pulse Rate 87 73 Respiratory 22 20 Rate Blood Pressure 171/97 176/94 O2 Sat by Pulse 99 97 Oximetry Medical Decision Making - Medical Decision Making Was pt. sent in by a medical professional or institution (, PA, LIMITED RADIOLOGY TECHNICIAN, urgent care, hospital, or alf...) When possible be specific @ -No Did you speak to anyone other than the patient for history (EMS, parent, family, police, friend...)? What history was obtained from this source @ -No Did you review nursing and triage notes (agree or disagree)? Why? @ -I reviewed and agree with nursing and triage notes Were old charts reviewed (outside hosp., previous admission, EMS record, old EKG, old radiological studies, urgent care reports/EKG's, alf records)? Report findings @ -No old charts were reviewed Differential Diagnosis (chest pain, altered mental status, abdominal pain women, abdominal pain men, vaginal bleeding, weakness, fever, dyspnea, syncope, headache, dizziness, GI bleed, back pain, seizure, CVA, palpatations, mental health, musculoskeletal)? @ -Differential Weakness: Hypoglycemia, shock, sepsis, hyponatremia, anemia, infection, [place], ETOH, adverse medicine reaction, overdose, stroke, this is not meant to be an all-inclusive list. EKG interpreted by me (3pts min.). @ -EKG [id number] shows sinus rhythm rate 71, [place] 160, QRS 92, QTQTc [id number] X-rays interpreted by me (1pt min.). @ -Chest x-ray shows no acute process CT interpreted by me (1pt min.). @ -None done U/S interpreted by me (1pt. min.). @ -None done What testing was considered but not performed or refused? (CT, X-rays, U/S, labs)? Why? @ -None What meds were considered but not given or refused? Why? @ -None Did you discuss the management of the patient with other professionals (professionals i.e. , PA, LIMITED RADIOLOGY TECHNICIAN, lab, RT, psych nurse, social sciences instructor, outside b2b sales, teacher, ship's electronic warfare officer, comp field case manager)? Give summary @ -No Was smoking cessation discussed for >3mins.? @ -No Was critical care preformed (if so, how long)? @ -No Were there social determinants of health that impacted care today? How? (Homelessness, low income, unemployed, alcoholism, drug addiction, transportatio n, low edu. Level, literacy, decrease access to med. care, skilled nursing, rehab)? @ -No Was there de-escalation of care discussed even if they declined (Discuss DNR or withdrawal of care, Hospice)? DNR status @ -No What co-morbidities impacted this encounter? (DM, HTN, Smoking, COPD, CAD, Cancer, CVA, ARF, Chemo, Hep., AIDS, mental health diagnosis, sleep apnea, morbid obesity)? @ -None Was patient admitted / discharged? Hospital course, mention meds given and route, prescriptions, significant lab abnormalities, going to OR and other pertinent info. @ -Discharge. Patient presented emergency department for evaluation of cough, myalgias. Reports symptoms feel similar to when she had influenza A. Patient was tested for COVID, influenza, RSV. Was negative for these. Chest x-ray shows no acute process. Patient was provided Tylenol for pain control in the emergency department. She will be discharged home. She is understanding agreeable plan. Patient stable for discharge. Case discussed with Dr. Maldonado. Undiagnosed new problem with uncertain prognosis? @ -No Drug Therapy requiring intensive monitoring for toxicity (Heparin, Nitro, Insulin, Cardizem)? @ -No Were any procedures done? @ -No Diagnosis/symptom? @ -Viral syndrome Acute, or Chronic, or Acute on Chronic? @ -Acute Uncomplicated (without systemic symptoms) or Complicated (systemic symptoms)? @ -Uncomplicated Side effects of treatment? @ -No Exacerbation, Progression, or Severe Exacerbation? @ -No Poses a threat to life or bodily function? How? (Chest pain, USA, [place], pneumonia, PE, COPD, DKA, ARF, appy, cholecystitis, CVA, Diverticulitis, Homicidal, Suicidal, threat to staff... and all critical care pts) @ -No - Lab Data Lab Results 09/05/24 Range/Units 13:14 Influenza Type A (PCR) Not Detected (Not Detectd) Influenza Type B (PCR) Not Detected (Not Detectd) RSV (PCR) Not Detected (Not Detectd) SARS-CoV-2 (PCR) Not Detected (Not Detectd) Disposition Clinical Impression: Myalgia, URI (upper respiratory infection) Disposition: HOME SELF-CARE Condition: Stable Additional Instructions: Please follow up with your primary care provider. Return to the emergency department for new or worsening symptoms. Prescriptions: Fluconazole [Diflucan] 150 mg PO ONCE #2 tab Is patient prescribed a controlled substance at d/c from ED?: No Referrals: None,Stated [Primary Care Provider] - 1-2 days
--- NOTE | 2024-09-05 13:35 | XR ---
EXAMINATION TYPE: XR chest 2V DATE OF EXAM: 09/05/2024 CLINICAL INDICATION: Female, 58 years old with history of cough, TECHNIQUE: Frontal and lateral views of the chest are obtained. COMPARISON: None FINDINGS: There is no focal air space opacity, pleural effusion, or pneumothorax seen. The cardiac silhouette size is chest x-ray one week earlier date only within normal limits. The osseous structu res are intact. IMPRESSION: No acute pulmonary infiltrate. No significant change from recent x-ray. [facility], , 09/05/2024 1:32 PM
[2024-09-05 13:57] LABS: Influenza A Not Detected (Not Detectd); Influenza B Not Detected (Not Detectd); RSV Not Detected (Not Detectd)
[2024-09-05] MEDS: ACETAMINOPHEN TAB 325 MG TAB PO STA (14:16)
[2024-09-05 14:32] VITALS: BP 176/94; PULSE 73; RESP 20; TEMP 98.1
== END 2024-09-05 14:32 | disposition home or self-care (01) ==
LOC: EC 11:33
DX: J06.9 Acute upper respiratory infection, unspecified (principal); B34.9 Viral infection, unspecified; F17.200 Nicotine dependence, unspecified, uncomplicated; Z88.0 Allergy status to penicillin; Z88.6 Allergy status to analgesic agent; Z88.8 Allergy status to other drugs, medicaments and biological substances
CPT/HCPCS: 71046; 87636; 93005; 99285

== ENCOUNTER 2024-09-05 22:04 | Emergency (ER) | payer OTHER ==
[2024-09-05 22:12] VITALS: TEMP 98.7
--- NOTE | 2024-09-05 22:13 | ED ---
SOB HPI - General Stated Complaint: LESA Time Seen by Provider: 09/05/24 22:10 Source: RN notes reviewed, old records reviewed Mode of arrival: EMS Limitations: no limitations - History of Present Illness Initial Comments: This is a 58-year-old female well-known to this ER for evaluation of COPD patient is acutely intoxicated with mild shortness of breath patient has no travels no sick contacts no other complaints does much alcohol use today no chest pain MD Complaint: shortness of breath, cough -: days(s) Severity: mild Severity scale (1-10): 4 Quality: aching Consistency: intermittent Improves With: nothing Worsens With: exertion Known History Of: COPD Context: recent URI, anxiety, recent illness, other (alcohol intoxication) Associated Symptoms: cough Treatments Prior to Arrival: none - Related Data Previous Rx's Medication Instructions Recorded Aspirin 81 mg PO DAILY 30 Days #30 tab 08/01/24 levETIRAcetam [Keppra] 500 mg PO Q12HR #14 tab 09/01/24 Fluconazole [Diflucan] 150 mg PO ONCE #2 tab 09/05/24 Allergies Allergy/AdvReac Type Severity Reaction Status Date / Time Penicillins Allergy Rash/Hives/Swelling Verified 09/10/24 19:56 all over body NSAIDS (Non-Steroidal AdvReac Unknown upset Verified 09/10/24 19:56 Anti-Inflamma stomach sertraline HCl [From Zoloft] AdvReac Suicidal/Ag Verified 09/10/24 19:56 ression Review of Systems ROS Statement: Those systems with pertinent positive or pertinent negative responses have been documented in the HPI. ROS Other: All systems not noted in ROS Statement are negative. Past Medical History Past Medical History: Cancer, COPD, Liver Disease, Myocardial Infarction ([place]), Seizure Disorder, Vascular Disorder Additional Past Medical History / Comment(s): constpation, feeling bloated,feeling of fullness, and abdominal pain, feels hungry then over eats then vomits to feel better, LAST SEIZURE - JANUARY 2021, "broken heart syndrome"., elevated liver enzymes, "dislocated disks", hx cervical cancer Last Myocardial Infarction Date:: 2019 History of Any Multi-Drug Resistant Organisms: None Reported Past Surgical History: Section, Heart Catheterization, Tubal Ligation Additional Past Surgical History / Comment(s): ORIF rt ankle/hardware later removed, exploratory lap, PAIN CLINIC PROCEDURE, BILAT CATARACTS REMOVED WITH LENS IMPLANTS, procedure to open a vein in left leg-couldn't confirm which leg, partial amputation rt hand middle finger, "procedure to remove cervical cancer" Past Anesthesia/Blood Transfusion Reactions: No Reported Reaction Past Psychological History: Anxiety, Bipolar, Depression, PTSD Smoking Status: Current every day smoker Past Alcohol Use History: Abuse, Daily, Heavy Past Drug Use History: Marijuana - Past Family History Father Family Medical History: Cancer, Prostate Disorder, Pulmonary Embolus Sister(s) Family Medical History: Cancer Brother(s) Family Medical History: Cancer Additional Family Medical History / Comment(s): colon and bladder General Exam General appearance: alert, in no apparent distress, appears intoxicated Head exam: Present: atraumatic, normocephalic, normal inspection Eye exam: Present: normal appearance, PERRL, EOMI. Absent: scleral icterus, conjunctival injection, periorbital swelling ENT exam: Present: normal exam, mucous membranes moist Neck exam: Present: normal inspection. Absent: tenderness, meningismus, lymphadenopathy Respiratory exam: Present: normal lung sounds bilaterally. Absent: respiratory distress, wheezes, rales, rhonchi, stridor Cardiovascular Exam: Present: regular rate, normal rhythm, normal heart sounds. Absent: systolic murmur, diastolic murmur, rubs, gallop, clicks GI/Abdominal exam: Present: soft, normal bowel sounds. Absent: distended, tenderness, guarding, rebound, rigid Extremities exam: Present: normal inspection, full ROM, normal capillary refill. Absent: tenderness, pedal edema, joint swelling, calf tenderness Back exam: Present: normal inspection Neurological exam: Present: alert, oriented X3, CN II-XII intact Psychiatric exam: Present: normal affect, normal mood Skin exam: Present: warm, dry, intact, normal color. Absent: rash Course Vital Signs 09/05/24 09/05/24 09/05/24 22:07 22:16 23:01 Temperature 98.7 F Pulse Rate 91 77 Pulse Rate [ 85 Bilateral Supine Pulse Oximetery] Respiratory 18 16 Rate Blood Pressure 141/99 138/74 O2 Sat by Pulse 97 98 Oximetry - Reevaluation(s) Reevaluation #1: 09/05/24 22:12 Medical records reviewed Reevaluation #2: 09/05/24 22:12 Patient symptoms improved Patient able to ambulate in the ER here Reevaluation #3: 09/05/24 22:12 Patient informed of results questions answered Reevaluation #4: Was pt. sent in by a medical professional or institution (BENI Dill, [employer]PA[employer], urgent care, hospital, or halfway...) When possible be specific @ -no Did you speak to anyone other than the patient for history (EMS, parent, family, police, friend...)? What history was obtained from this source @ -no Did you review nursing and triage notes (agree or disagree)? Why? @ -agree Are old charts reviewed (outside hosp., previous admission, EMS record, old EKG, old radiological studies, urgent care reports/EKG's, halfway records)? Report findings @ -yes Differential Diagnosis (chest pain, altered mental status, abdominal pain women, abdominal pain men, vaginal bleeding, weakness, fever, dyspnea, syncope, headache, dizziness, GI bleed, back pain, seizure, CVA, palpatations, mental health, musculoskeletal)? @ -prior EKG interpreted by me (3pts min.). @ -yes X-rays interpreted by me (1pt min.). @ -yes negative for acute disease CT interpreted by me (1pt min.). @ -no U/S interpreted by me (1pt. min.). @ -no What testing was considered but not performed or refused? (CT, X-rays, U/S, labs)? Why? @ -none What meds were considered but not given or refused? Why? @ -none Did you discuss the management of the patient with other professionals (professionals i.e. BENI Dill, [employer] REPAIRER, lab, RT, psych nurse, social media senior associate, tree farmer, teacher, industrial relations officer, watch caser)? Give summary @ -no Was smoking cessation discussed for >3mins.? @ -no Was critical care preformed (if so, how long)? @ -no Were there social determinants of health that impacted care today? How? (Homelessness, low income, unemployed, alcoholism, drug addiction, transportation, low edu. Level, literacy, decrease access to med. care, intermediate, rehab)? @ -none Was there de-escalation of care discussed even if they declined (Discuss DNR or withdrawal of care, Hospice)? DNR status @ -no What co-morbidities impacted this encounter? (DM, HTN, Smoking, COPD, CAD, Cancer, CVA, ARF, Chemo, Hep., AIDS, mental health diagnosis, sleep apnea, morbid obesity)? @ -none Was patient admitted / discharged? Hospital course, mention meds given and route, prescriptions, significant lab abnormalities, going to OR and other pertinent info. @ - 58 female for COPD exacerbation no acute distress significant alcohol intoxication normal pulse ox no work of breathing patient can be discharged home Discharge Undiagnosed new problem with uncertain prognosis? @ -no Drug Therapy requiring intensive monitoring for toxicity (Heparin, Nitro, Insulin, Cardizem)? @ -no Were any procedures done? @ -no Diagnosis/symptom? @ -Chest pain and COPD Acute, or Chronic, or Acute on Chronic? @ -Acute Uncomplicated (without systemic symptoms) or Complicated (systemic symptoms)? @ -Complicated Side effects of treatment? @ -no Exacerbation, Progression, or Severe Exacerbation? @ -exacerbation Poses a threat to life or bodily function? How? (Chest pain, [place], [place], pneumonia, PE, COPD, DKA, ARF, appy, cholecystitis, CVA, Diverticulitis, Homicidal, Suicidal, threat to staff... and all critical care pts) @ -no Reevaluation #5: Differential Dyspnea: Coronary syndrome, arrhythmia, tamponade, asthma, COPD, pulmonary embolism, pneumonia, pneumothorax, pulmonary effusion, anaphylaxis, diabetic ketoacidosis, flailed chest, pulmonary contusion, diaphragmatic rupture, anemia, neuromuscular, this is not meant to be an all-inclusive list. Medical Decision Making - Medical Decision Making 58 female for COPD exacerbation no acute distress significant alcohol intoxication normal pulse ox no work of breathing patient can be discharged home - EKG Data -: EKG Interpreted by Me (EKG is sinus 78 [place] 161 QRS 88 QTc 410) - Radiology Data Radiology results: report reviewed, image reviewed Disposition Clinical Impression: Alcohol intoxication, Atypical chest pain, Acute exacerbation of chronic obstructive pulmonary disease Disposition: HOME SELF-CARE Condition: Fair Instructions (If sedation given, give patient instructions): Chronic Bronchitis (ED) Is patient prescribed a controlled substance at d/c from ED?: No Referrals: None,Stated [Primary Care Provider] - 1-2 days Time of Disposition: 22:30
[2024-09-05] MEDS: IPRATROPIUM-ALBUTEROL 3 ML NEB INHALATION STA (22:33)
[2024-09-05] MEDS: DEXAMETHASONE SOD PHOSPHATE 10 MG/ML 1 ML VIAL IM STA (22:37)
[2024-09-05 23:03] VITALS: BP 138/74; PULSE 77; RESP 16
--- NOTE | 2024-09-05 23:18 | XR ---
EXAM: XR Chest, 1 View CLINICAL HISTORY: ITS.REASON XR Reason: sob TECHNIQUE: Frontal view of the chest. COMPARISON: 08/29/2024 FINDINGS: Lungs: Unremarkable. No consolidation. Pleural space: Unremarkable. No pneumothorax. Heart: Unremarkable. No cardiomegaly. Mediastinum: Unremarkable. Normal mediastinal contour. Bones/joints: Unremarkable. No acute fracture. IMPRESSION: Normal chest x-ray.
== END 2024-09-05 23:03 | disposition home or self-care (01) ==
LOC: EC 22:04
DX: J44.1 Chronic obstructive pulmonary disease with (acute) exacerbation (principal); F10.129 Alcohol abuse with intoxication, unspecified; F17.200 Nicotine dependence, unspecified, uncomplicated; Z88.0 Allergy status to penicillin; Z88.8 Allergy status to other drugs, medicaments and biological substances; Z88.6 Allergy status to analgesic agent
CPT/HCPCS: 71045; 99285; 96372; J1100

== ENCOUNTER 2024-09-07 23:56 | Emergency (ER) | payer OTHER ==
[2024-09-08] MEDS: SODIUM CHLORIDE 0.9% 1,000 ML IV STA (01:02)
[2024-09-08] MEDS: ACETAMINOPHEN TAB 325 MG TAB PO STA (01:12)
[2024-09-08 01:20] LABS: Basophils % (A) 0 %; Eosinophils % (A) 0 %; HCT 41.4 % (34.0-46.0); Lymphocytes # (A) 1.9 k/uL (1.0-4.8); Lymphocytes % (A) 22 %; MCH 32.9 pg (25.0-35.0); MCHC 33.9 g/dL (31.0-37.0); MCV 97.2 fL (80.0-100.0); Mean Platelet Volume 7.3; Monocytes # (A) 0.8 k/uL (0-1.0); Monocytes % (A) 9 %; Neutrophils % (A) 68 %; Platelet Count 272 k/uL (150-450); RBC 4.26 m/uL (3.80-5.40); RDW 14.5 % (11.5-15.5); WBC 8.8 k/uL (3.8-10.6)
[2024-09-08 01:33] LABS: INR 0.9 (<1.2); Partial Thromboplastin Time 23.6 sec (22.0-30.0); Prothrombin Time 10.4 sec (10.0-12.5)
[2024-09-08 01:41] LABS: ALT 34 U/L (4-34); AST 60 U/L (14-36); African American GFR (CKD) >90 (>60 ml/min/1.73 sqM); Albumin 4.7 g/dL (3.5-5.0); Alkaline Phosphatase 74 U/L (38-126); Anion Gap 15 mmol/L; Blood Urea Nitrogen <2 mg/dL (7-17); Calcium 9.6 mg/dL (8.4-10.2); Carbon Dioxide 21 mmol/L (22-30); Chloride 98 mmol/L (98-107); Glucose 77 mg/dL (74-99); Magnesium 1.9 mg/dL (1.6-2.3); Non-African American GFR(CKD) >90 (>60 ml/min/1.73 sqM); Potassium 3.3 mmol/L (3.5-5.1); Sodium 134 mmol/L (137-145); Total Bilirubin 0.7 mg/dL (0.2-1.3); Total Protein 7.1 g/dL (6.3-8.2)
[2024-09-08 01:56] LABS: Influenza A Not Detected (Not Detectd); Influenza B Not Detected (Not Detectd); RSV Not Detected (Not Detectd)
[2024-09-08 02:18] VITALS: RESP 18
--- NOTE | 2024-09-08 02:36 | ED ---
Chest Pain HPI - General Chief Complaint: Chest Pain Stated Complaint: chest pain Time Seen by Provider: 09/08/24 00:32 Source: patient Mode of arrival: EMS Limitations: no limitations - History of Present Illness Initial Comments: 58-year-old female presenting with multiple complaints. Patient reports "I cannot get warm". She also reports that she is having chest discomfort with coughing. She has had a cough for few days. She does smoke daily. Patient also reports that she was drinking today, she drank 3 beers. No lower extremity swelling. No nausea vomiting or abdominal pain. No difficulty breathing. No fever. - Related Data Previous Rx's Medication Instructions Recorded Aspirin 81 mg PO DAILY 30 Days #30 tab 08/01/24 levETIRAcetam [Keppra] 500 mg PO Q12HR #14 tab 09/01/24 Fluconazole [Diflucan] 150 mg PO ONCE #2 tab 09/05/24 Allergies Allergy/AdvReac Type Severity Reaction Status Date / Time Penicillins Allergy Rash/Hives/Swelling Verified 09/10/24 19:56 all over body NSAIDS (Non-Steroidal AdvReac Unknown upset Verified 09/10/24 19:56 Anti-Inflamma stomach sertraline HCl [From Zoloft] AdvReac Suicidal/Ag Verified 09/10/24 19:56 ression Review of Systems ROS Statement: Those systems with pertinent positive or pertinent negative responses have been documented in the HPI. ROS Other: All systems not noted in ROS Statement are negative. Past Medical History Past Medical History: Cancer, COPD, Liver Disease, Myocardial Infarction ([place]), Seizure Disorder, Vascular Disorder Additional Past Medical History / Comment(s): constpation, feeling bloated,feeling of fullness, and abdominal pain, feels hungry then over eats then vomits to feel better, LAST SEIZURE - JANUARY 2021, "broken heart syndrome"., elevated liver enzymes, "dislocated disks", hx cervical cancer Last Myocardial Infarction Date:: 2019 History of Any Multi-Drug Resistant Organisms: None Reported Past Surgical History: Section, Heart Catheterization, Tubal Ligation Additional Past Surgical History / Comment(s): ORIF rt ankle/hardware later removed, exploratory lap, PAIN CLINIC PROCEDURE, BILAT CATARACTS REMOVED WITH LENS IMPLANTS, procedure to open a vein in left leg-couldn't confirm which leg, partial amputation rt hand middle finger, "procedure to remove cervical cancer" Past Anesthesia/Blood Transfusion Reactions: No Reported Reaction Past Psychological History: Anxiety, Bipolar, Depression, PTSD Smoking Status: Current every day smoker Past Alcohol Use History: Abuse, Daily, Heavy Past Drug Use History: Marijuana - Past Family History Father Family Medical History: Cancer, Prostate Disorder, Pulmonary Embolus Sister(s) Family Medical History: Cancer Brother(s) Family Medical History: Cancer Additional Family Medical History / Comment(s): colon and bladder General Exam Limitations: no limitations General appearance: alert, in no apparent distress Head exam: Present: atraumatic, normocephalic, normal inspection Eye exam: Present: normal appearance, EOMI Neck exam: Present: normal inspection. Absent: meningismus Respiratory exam: Present: normal lung sounds bilaterally. Absent: respiratory distress, wheezes, rales, rhonchi, stridor Cardiovascular Exam: Present: regular rate, normal rhythm, normal heart sounds. Absent: systolic murmur, diastolic murmur, rubs, gallop, clicks Extremities exam: Absent: pedal edema Neurological exam: Present: alert, oriented X3 Psychiatric exam: Present: normal affect, normal mood Skin exam: Present: warm, dry, normal color Course Vital Signs 09/08/24 09/08/24 09/08/24 00:02 01:19 02:17 Temperature 98.6 F Pulse Rate 65 60 57 L Respiratory 16 16 18 Rate Blood Pressure 141/98 123/77 O2 Sat by Pulse 95 96 98 Oximetry 09/08/24 02:44 Temperature 97.7 F Pulse Rate 55 L Respiratory 18 Rate Blood Pressure 116/66 O2 Sat by Pulse 96 Oximetry Chest Pain MDM - MDM Was pt. sent in by a medical professional or institution (, PA, ADVERTISING MANAGER, urgent care, hospital, or [facility]...) When possible be specific @ -No Did you speak to anyone other than the patient for history (EMS, parent, family, police, friend...)? What history was obtained from this source @ -No Did you review nursing and triage notes (agree or disagree)? Why? @ -I reviewed and agree with nursing and triage notes Were old charts reviewed (outside hosp., previous admission, EMS record, old EKG, old radiological studies, urgent care reports/EKG's, [facility] records)? Report findings @ -No old charts were reviewed Differential Diagnosis (chest pain, altered mental status, abdominal pain women, abdominal pain men, vaginal bleeding, weakness, fever, dyspnea, syncope, headache, dizziness, GI bleed, back pain, seizure, CVA, palpatations, mental health, musculoskeletal)? @ -[facility] Differential Chest Pain: Stable Angina, Unstable Angina, STEMI, NSTEMI Aortic Dissection, Pneumothorax, Musculoskeletal, Esophageal Spasm GERD, Cholecystitis, Pancreatitis, Zosterâ€¦ This is not meant to be an all-inclusive list. EKG interpreted by me (3pts min.). @ -EKG shows sinus rhythm ventricular rate 66. NC interval 146. QRS 84. QT 416. QTc 429 X-rays interpreted by me (1pt min.). @ -Chest x-ray shows no acute process CT interpreted by me (1pt min.). @ -None done U/S interpreted by me (1pt. min.). @ -None done What testing was considered but not performed or refused? (CT, X-rays, U/S, labs)? Why? @ -None What meds were considered but not given or refused? Why? @ -None Did you discuss the management of the patient with other professionals (professionals i.e. , PA, ADVERTISING MANAGER, lab, RT, psych nurse, social work associate, family lawyer, teacher, animal services officer, immigration case manager)? Give summary @ -No Was smoking cessation discussed for >3mins.? @ -No Was critical care preformed (if so, how long)? @ -No Were there social determinants of health that impacted care today? How? (Homelessness, low income, unemployed, alcoholism, drug addiction, transportation, low edu. Level, literacy, decrease access to med. care, longterm, rehab)? @ -No Was there de-escalation of care discussed even if they declined (Discuss DNR or withdrawal of care, Hospice)? DNR status @ -No What co-morbidities impacted this encounter? (DM, HTN, Smoking, COPD, CAD, Cancer, CVA, ARF, Chemo, Hep., AIDS, mental health diagnosis, sleep apnea, morbid obesity)? @ -None Was patient admitted / discharged? Hospital course, mention meds given and route, prescriptions, significant lab abnormalities, going to OR and other pertinent info. @ -58-year-old female presenting with chief complaint of chest pain with coughing. Patient is a smoker and has been coughing for few days. She also reports "I cannot get warm". On exam there is no lower extremity swelling. Heart and lungs are clear to auscultation. No leukocytosis or anemia. Negative troponin. Negative for influenza, RSV, COVID. EKG shows sinus rhythm with no acute ischemic changes and chest x-ray shows no acute process. Sodium 134 potassium 3.3, patient is receiving IV fluids. AST 60, patient is a daily drinker. On reassessment the patient is resting comfortably showing no acute signs of distress. She is educated on today's findings. Follow-up with PCP. Report back to ER with any new or worsening symptoms. Discussed return parameters and answered all questions. Patient conveyed verbal understanding and agreed to the plan. I discussed this case in detail with my attending Dr. Ibrahim Undiagnosed new problem with uncertain prognosis? @ -No Drug Therapy requiring intensive monitoring for toxicity (Heparin, Nitro, Insulin, Cardizem)? @ -No Were any procedures done? @ -No Diagnosis/symptom? @ -Atypical chest pain Acute, or Chronic, or Acute on Chronic? @ -Acute Uncomplicated (without systemic symptoms) or Complicated (systemic symptoms)? @ -Uncomplicated Side effects of treatment? @ -No Exacerbation, Progression, or Severe Exacerbation? @ -No Poses a threat to life or bodily function? How? (Chest pain, [place], [place], pneumonia, PE, COPD, DKA, ARF, appy, cholecystitis, CVA, Diverticulitis, Homicidal, Suicidal, threat to staff... and all critical care pts) @ -Low likelihood Disposition Clinical Impression: Atypical chest pain, Alcohol intoxication Disposition: HOME SELF-CARE Condition: Fair Instructions (If sedation given, give patient instructions): Chest Pain (ED) Additional Instructions: Follow-up with PCP. Report back to ER with any new or worsening symptoms. Is patient prescribed a controlled substance at d/c from ED?: No Referrals: None,Stated [Primary Care Provider] - 1-2 days Forms: Area PCPs Time of Disposition: 02:36
[2024-09-08 02:45] VITALS: BP 116/66; PULSE 55; TEMP 97.7
--- NOTE | 2024-09-08 03:49 | XR ---
EXAM: XR Chest, 2 Views CLINICAL HISTORY: ITS.REASON XR Reason: Chest Pain TECHNIQUE: Frontal and lateral views of the chest. COMPARISON: No relevant prior studies available. FINDINGS: Lungs: No consolidation or mass. Pleural space: No effusion. Heart: No cardiomegaly. Bones/joints: No acute findings. IMPRESSION: No acute cardiopulmonary process.
== END 2024-09-08 02:46 | disposition home or self-care (01) ==
LOC: EC 23:56
DX: F10.129 Alcohol abuse with intoxication, unspecified (principal); R07.89 Other chest pain; F17.200 Nicotine dependence, unspecified, uncomplicated; Z88.6 Allergy status to analgesic agent; Z88.8 Allergy status to other drugs, medicaments and biological substances; Z88.0 Allergy status to penicillin
CPT/HCPCS: 36415; 71046; 80053; 83735; 84484; 85025; 85610; 85730; 87636; 93005; 96360; 99285

== ENCOUNTER 2024-09-10 09:22 | Emergency (ER) | payer OTHER ==
[2024-09-10 09:33] VITALS: TEMP 98
[2024-09-10] MEDS: ACETAMINOPHEN TAB 500 MG TAB PO STA (10:02)
[2024-09-10] MEDS: LORazepam 2 MG/ML INJ IV STA (10:05)
[2024-09-10 10:07] LABS: Basophils % (A) 1 %; Eosinophils % (A) 1 %; HGB 13.5 gm/dL (11.4-16.0); Lymphocytes # (A) 1.7 k/uL (1.0-4.8); Lymphocytes % (A) 32 %; MCH 32.6 pg (25.0-35.0); MCHC 33.6 g/dL (31.0-37.0); MCV 96.8 fL (80.0-100.0); Mean Platelet Volume 7.3; Monocytes # (A) 0.7 k/uL (0-1.0); Monocytes % (A) 12 %; Neutrophils # (A) 2.7 k/uL (1.3-7.7); Neutrophils % (A) 52 %; Platelet Count 266 k/uL (150-450); RBC 4.14 m/uL (3.80-5.40); RDW 14.5 % (11.5-15.5); WBC 5.3 k/uL (3.8-10.6)
[2024-09-10 10:18] LABS: ALT 39 U/L (4-34); AST 55 U/L (14-36); African American GFR (CKD) >90 (>60 ml/min/1.73 sqM); Albumin 4.3 g/dL (3.5-5.0); Alcohol 15 mg/dL; Alkaline Phosphatase 83 U/L (38-126); Anion Gap 13 mmol/L; Blood Urea Nitrogen 4 mg/dL (7-17); Calcium 9.1 mg/dL (8.4-10.2); Carbon Dioxide 21 mmol/L (22-30); Chloride 101 mmol/L (98-107); Glucose 112 mg/dL (74-99); Lipase 100 U/L (23-300); Magnesium 1.6 mg/dL (1.6-2.3); Non-African American GFR(CKD) >90 (>60 ml/min/1.73 sqM); Potassium 3.7 mmol/L (3.5-5.1); Sodium 135 mmol/L (137-145); Total Bilirubin 0.6 mg/dL (0.2-1.3); Total Protein 6.7 g/dL (6.3-8.2)
[2024-09-10 10:24] LABS: Prothrombin Time 10.7 sec (10.0-12.5)
--- NOTE | 2024-09-10 10:28 | XR ---
Chest, 2 view. CLINICAL INDICATION: Female, 58 years old with history of Chest Pain COMPARISON: TECHNIQUE: PA and lateral views the chest are obtained. FINDINGS: The lungs are clear and there is no consolidative or interstitial opacity. There is no pleural effusion or pneumothorax. The heart, pulmonary vasculature, mediastinum and siri appear normal. The osseous structures are intact. IMPRESSION: No significant abnormality seen. No acute cardiopulmonary disease. [facility], , 09/10/2024 10:25 AM
--- NOTE | 2024-09-10 11:09 | ED ---
Chest Pain HPI - General Chief Complaint: Chest Pain Stated Complaint: chest pain Time Seen by Provider: 09/10/24 09:30 Source: patient, EMS Mode of arrival: EMS - Related Data Previous Rx's Medication Instructions Recorded Aspirin 81 mg PO DAILY 30 Days #30 tab 08/01/24 levETIRAcetam [Keppra] 500 mg PO Q12HR #14 tab 09/01/24 Fluconazole [Diflucan] 150 mg PO ONCE #2 tab 09/05/24 Allergies Allergy/AdvReac Type Severity Reaction Status Date / Time Penicillins Allergy Rash/Hives/Swelling Verified 09/10/24 09:32 all over body NSAIDS (Non-Steroidal AdvReac Unknown upset Verified 09/10/24 09:32 Anti-Inflamma stomach sertraline HCl [From Zoloft] AdvReac Suicidal/Ag Verified 09/10/24 09:32 ression Review of Systems ROS Statement: Those systems with pertinent positive or pertinent negative responses have been documented in the HPI. ROS Other: All systems not noted in ROS Statement are negative. Past Medical History Past Medical History: Cancer, COPD, Liver Disease, Myocardial Infarction ([place]), Seizure Disorder, Vascular Disorder Additional Past Medical History / Comment(s): constpation, feeling bloated,feeling of fullness, and abdominal pain, feels hungry then over eats then vomits to feel better, LAST SEIZURE - JANUARY 2021, "broken heart syndrome"., elevated liver enzymes, "dislocated disks", hx cervical cancer Last Myocardial Infarction Date:: 2019 History of Any Multi-Drug Resistant Organisms: None Reported Past Surgical History: Section, Heart Catheterization, Tubal Ligation Additional Past Surgical History / Comment(s): ORIF rt ankle/hardware later removed, exploratory lap, PAIN CLINIC PROCEDURE, BILAT CATARACTS REMOVED WITH LENS IMPLANTS, procedure to open a vein in left leg-couldn't confirm which leg, partial amputation rt hand middle finger, "procedure to remove cervical cancer" Past Anesthesia/Blood Transfusion Reactions: No Reported Reaction Past Psychological History: Anxiety, Bipolar, Depression, PTSD Smoking Status: Current every day smoker Past Alcohol Use History: Abuse, Daily, Heavy Past Drug Use History: Marijuana - Past Family History Father Family Medical History: Cancer, Prostate Disorder, Pulmonary Embolus Sister(s) Family Medical History: Cancer Brother(s) Family Medical History: Cancer Additional Family Medical History / Comment(s): colon and bladder Course Vital Signs 09/10/24 09/10/24 09/10/24 09:25 10:07 10:36 Temperature 98.0 F Pulse Rate 78 72 82 Respiratory 24 22 20 Rate Blood Pressure 131/97 169/92 130/84 O2 Sat by Pulse 99 98 96 Oximetry 09/10/24 11:50 Temperature Pulse Rate 79 Respiratory 17 Rate Blood Pressure 113/73 O2 Sat by Pulse 98 Oximetry Chest Pain MDM - MDM Was pt. sent in by a medical professional or institution (, [facility], RUNNING RIGGER, urgent care, hospital, or snf...) When possible be specific @ -[No] Did you speak to anyone other than the patient for history (EMS, parent, family, police, friend...)? What history was obtained from this source @ -[No] Did you review nursing and triage notes (agree or disagree)? Why? @ -[I reviewed and agree with nursing and triage notes] Were old charts reviewed (outside hosp., previous admission, EMS record, old EKG, old radiological studies, urgent care reports/EKG's, snf records)? Report findings @ -[No old charts were reviewed] Differential Diagnosis (chest pain, altered mental status, abdominal pain women, abdominal pain men, vaginal bleeding, weakness, fever, dyspnea, syncope, headache, dizziness, GI bleed, back pain, seizure, CVA, palpatations, mental health, musculoskeletal)? @ -[not applicable] EKG interpreted by me (3pts min.). @ -Yes and demonstrate sinus rhythm with a rate of 79. VA interval 154. QRS 79. QTc of 421. No acute ST segment elevations or depressions X-rays interpreted by me (1pt min.). @ -[None done] CT interpreted by me (1pt min.). @ -[None done] U/S interpreted by me (1pt. min.). @ -[None done] What testing was considered but not performed or refused? (CT, X-rays, U/S, labs)? Why? @ -[None] What meds were considered but not given or refused? Why? @ -[None] Did you discuss the management of the patient with other professionals (professionals i.e. , BENI, RUNNING RIGGER, lab, RT, psych nurse, mental health social worker, vice president quality, teacher, diplomatic officer, case repairer)? Give summary @ -[No] Was smoking cessation discussed for >3mins.? @ -[No] Was critical care preformed (if so, how long)? @ -[No] Were there social determinants of health that impacted care today? How? (H omelessness, low income, unemployed, alcoholism, drug addiction, transportation, low edu. Level, literacy, decrease access to med. care, half-way, rehab)? @ -[No] Was there de-escalation of care discussed even if they declined (Discuss DNR or withdrawal of care, Hospice)? DNR status @ -[No] What co-morbidities impacted this encounter? (DM, HTN, Smoking, COPD, CAD, Cancer, CVA, ARF, Chemo, Hep., AIDS, mental health diagnosis, sleep apnea, morbid obesity)? @ -[None] Was patient admitted / discharged? Hospital course, mention meds given and route, prescriptions, significant lab abnormalities, going to OR and other pertinent info. @ -[hospital course] Undiagnosed new problem with uncertain prognosis? @ -[No] Drug Therapy requiring intensive monitoring for toxicity (Heparin, Nitro, Insulin, Cardizem)? @ -[No] Were any procedures done? @ -[No] Diagnosis/symptom? @ -[default] Acute, or Chronic, or Acute on Chronic? @ -[default] Uncomplicated (without systemic symptoms) or Complicated (systemic symptoms)? @ -[default] Side effects of treatment? @ -[No] Exacerbation, Progression, or Severe Exacerbation? @ -[No] Poses a threat to life or bodily function? How? (Chest pain, [place], [place], pneumonia, PE, COPD, DKA, ARF, appy, cholecystitis, CVA, Diverticulitis, Homicidal, Suicidal, threat to staff... and all critical care pts) @ -[No] Disposition Clinical Impression: Chest pain Disposition: HOME SELF-CARE Condition: Stable Instructions (If sedation given, give patient instructions): Chest Pain (ED) Additional Instructions: Please follow-up with your primary care doctor and return for any new or worsening symptoms Is patient prescribed a controlled substance at d/c from ED?: No Referrals: None,Stated [Primary Care Provider] - 1-2 days Time of Disposition: 11:09
[2024-09-10 12:12] VITALS: BP 113/73; PULSE 79; RESP 17
== END 2024-09-10 11:50 | disposition home or self-care (01) ==
LOC: EC 09:22
DX: R07.9 Chest pain, unspecified (principal); F17.200 Nicotine dependence, unspecified, uncomplicated; Z88.6 Allergy status to analgesic agent; Z88.0 Allergy status to penicillin
CPT/HCPCS: 36415; 93005; 80053; 83690; 83735; 84484; 85025; 85610; 85730; 71046; 99285; 96374; G0480; J2060; 80320

== ENCOUNTER 2024-09-10 19:47 | Emergency (ER) | payer OTHER ==
[2024-09-10 19:56] VITALS: PULSE 75; RESP 16
--- NOTE | 2024-09-10 20:48 | ED ---
General Adult HPI - General Chief complaint: Alcohol Stated complaint: ETOH Time Seen by Provider: 09/10/24 19:49 Source: patient, EMS, RN notes reviewed Mode of arrival: EMS Limitations: no limitations - History of Present Illness Initial comments: 58-year-old female presents to the emergency department for concerns that her blood pressure is elevated. Patient states that she feels like her blood pressure is elevated although she did not take it at home. Upon arrival to the emergency department her blood pressure is within normal limits. She has no other complaints at this time. She was seen and evaluated here earlier today and had a full workup done including laboratory studies, chest x-ray which were overall unremarkable. - Related Data Previous Rx's Medication Instructions Recorded Aspirin 81 mg PO DAILY 30 Days #30 tab 08/01/24 levETIRAcetam [Keppra] 500 mg PO Q12HR #14 tab 09/01/24 Fluconazole [Diflucan] 150 mg PO ONCE #2 tab 09/05/24 Allergies Allergy/AdvReac Type Severity Reaction Status Date / Time Penicillins Allergy Rash/Hives/Swelling Verified 09/10/24 19:56 all over body NSAIDS (Non-Steroidal AdvReac Unknown upset Verified 09/10/24 19:56 Anti-Inflamma stomach sertraline HCl [From Zoloft] AdvReac Suicidal/Ag Verified 09/10/24 19:56 ression Review of Systems ROS Statement: Those systems with pertinent positive or pertinent negative responses have been documented in the HPI. ROS Other: All systems not noted in ROS Statement are negative. Past Medical History Past Medical History: Cancer, COPD, Liver Disease, Myocardial Infarction ([place]), Seizure Disorder, Vascular Disorder Additional Past Medical History / Comment(s): constpation, feeling bloated,feeling of fullness, and abdominal pain, feels hungry then over eats then vomits to feel better, LAST SEIZURE - JANUARY 2021, "broken heart syndrome"., elevated liver enzymes, "dislocated disks", hx cervical cancer Last Myocardial Infarction Date:: 2019 History of Any Multi-Drug Resistant Organisms: None Reported Past Surgical History: Section, Heart Catheterization, Tubal Ligation Additional Past Surgical History / Comment(s): ORIF rt ankle/hardware later removed, exploratory lap, PAIN CLINIC PROCEDURE, BILAT CATARACTS REMOVED WITH LENS IMPLANTS, procedure to open a vein in left leg-couldn't confirm which leg, partial amputation rt hand middle finger, "procedure to remove cervical cancer" Past Anesthesia/Blood Transfusion Reactions: No Reported Reaction Past Psychological History: Anxiety, Bipolar, Depression, PTSD Smoking Status: Current every day smoker Past Alcohol Use History: Abuse, Daily, Heavy Past Drug Use History: Marijuana - Past Family History Father Family Medical History: Cancer, Prostate Disorder, Pulmonary Embolus Sister(s) Family Medical History: Cancer Brother(s) Family Medical History: Cancer Additional Family Medical History / Comment(s): colon and bladder General Exam Limitations: no limitations General appearance: alert, appears intoxicated Head exam: Present: atraumatic, normocephalic, normal inspection Eye exam: Present: normal appearance, PERRL, EOMI. Absent: scleral icterus, conjunctival injection, periorbital swelling ENT exam: Present: normal exam, mucous membranes moist Respiratory exam: Present: normal lung sounds bilaterally. Absent: respiratory distress, wheezes, rales, rhonchi, stridor Cardiovascular Exam: Present: regular rate, normal rhythm, normal heart sounds. Absent: systolic murmur, diastolic murmur, rubs, gallop, clicks GI/Abdominal exam: Present: soft. Absent: distended, tenderness, guarding, rebound, rigid Extremities exam: Present: normal inspection, full ROM, normal capillary refill. Absent: tenderness, pedal edema, joint swelling, calf tenderness Neurological exam: Present: alert, oriented X3 Psychiatric exam: Present: normal affect, normal mood Skin exam: Present: warm, dry, intact, normal color. Absent: rash Course Vital Signs 09/10/24 09/10/24 19:50 22:23 Temperature 98.7 F 97.8 F Pulse Rate 75 75 Respiratory 16 16 Rate Blood Pressure 126/74 126/85 O2 Sat by Pulse 96 98 Oximetry Medical Decision Making - Medical Decision Making Was pt. sent in by a medical professional or institution (, PA, WASH PLANT OPERATOR, urgent care, hospital, or retirement...) When possible be specific @ -No Did you speak to anyone other than the patient for history (EMS, parent, family, police, friend...)? What history was obtained from this source @ -No Did you review nursing and triage notes (agree or disagree)? Why? @ -I reviewed and agree with nursing and triage notes Were old charts reviewed (outside hosp., previous admission, EMS record, old EKG, old radiological studies, urgent care reports/EKG's, retirement records)? Report findings @ -I reviewed the laboratory studies that were performed earlier today including a CBC, CMP, troponin labs were reviewed the chest x-ray from earlier today. Differential Diagnosis (chest pain, altered mental status, abdominal pain women, abdominal pain men, vaginal bleeding, weakness, fever, dyspnea, syncope, headache, dizziness, GI bleed, back pain, seizure, CVA, palpatations, mental health, musculoskeletal)? @ -Hypertension, alcohol intoxication, alcohol abuse, this list is not all inclusive EKG interpreted by me (3pts min.). @ -None X-rays interpreted by me (1pt min.). @ -None done CT interpreted by me (1pt min.). @ -None done U/S interpreted by me (1pt. min.). @ -None done What testing was considered but not performed or refused? (CT, X-rays, U/S, labs)? Why? @ -None What meds were considered but not given or refused? Why? @ -None Did you discuss the management of the patient with other professionals (professionals i.e. , PA, WASH PLANT OPERATOR, lab, RT, psych nurse, social service liaison, shovel operator, teacher, chief client officer, case reviewer)? Give summary @ -No Was smoking cessation discussed for >3mins.? @ -No Was critical care preformed (if so, how long)? @ -No Were there social determinants of health that impacted care today? How? (Homelessness, low income, unemployed, alcoholism, drug addiction, transportation, low edu. Level, literacy, decrease access to med. care, usp, rehab)? @ -No Was there de-escalation of care discussed even if they declined (Discuss DNR or withdrawal of care, Hospice)? DNR status @ -No What co-morbidities impacted this encounter? (DM, HTN, Smoking, COPD, CAD, Cancer, CVA, ARF, Chemo, Hep., AIDS, mental health diagnosis, sleep apnea, morbid obesity)? @ -None Was patient admitted / discharged? Hospital course, mention meds given and r oute, prescriptions, significant lab abnormalities, going to OR and other pertinent info. @ -Discharged. Patient presented to the emergency department for concerns that her blood pressure is elevated. She did not take her blood pressure at home. Patient had full workup earlier today This included laboratory studies revealing no significant leukocytosis, hemoglobin 13.5; normal coagulation studies; very mild hyponatremia with a sodium of 135, potassium within normal limits BUN/creatinine stable COVID the patient with her alcohol history. She had a negative troponin at the time. Serum alcohol is 15. Chest x-ray was obtained revealing no acute process. Patient's vital signs are stable, blood pressure within normal limits. Patient appears clinically sober and wishes to be discharged home. She will be getting a ride home. Stable at time of discharge. Case discussed with Dr. Stewart Undiagnosed new problem with uncertain prognosis? @ -No Drug Therapy requiring intensive monitoring for toxicity (Heparin, Nitro, Insulin, Cardizem)? @ -No Were any procedures done? @ -No Diagnosis/symptom? @ -Concern for elevated blood pressure Acute, or Chronic, or Acute on Chronic? @ -acute Uncomplicated (without systemic symptoms) or Complicated (systemic symptoms)? @ -uncomplicated Side effects of treatment? @ -No Exacerbation, Progression, or Severe Exacerbation? @ -No Poses a threat to life or bodily function? How? (Chest pain, [place], [place], pneumonia, PE, COPD, DKA, ARF, appy, cholecystitis, CVA, Diverticulitis, Homicidal, Suicidal, threat to staff... and all critical care pts) @ -No Disposition Clinical Impression: Blood pressure check Disposition: HOME SELF-CARE Condition: Stable Instructions (If sedation given, give patient instructions): Alcohol Intoxication (ED) Additional Instructions: Please follow up with your doctor. Return to the emergency department for new or worsening symptoms. Is patient prescribed a controlled substance at d/c from ED?: No Referrals: None,Stated [Primary Care Provider] - 1-2 days
[2024-09-10] MEDS: ONDANSETRON ODT 4 MG TAB PO STA (21:36)
[2024-09-10 22:24] VITALS: BP 126/85; TEMP 97.8
== END 2024-09-10 22:24 | disposition home or self-care (01) ==
LOC: EC 19:47
DX: Z01.30 Encounter for examination of blood pressure without abnormal findings (principal); F17.200 Nicotine dependence, unspecified, uncomplicated; Z88.0 Allergy status to penicillin; Z88.6 Allergy status to analgesic agent; Z88.8 Allergy status to other drugs, medicaments and biological substances
CPT/HCPCS: 99284

== ENCOUNTER 2024-09-15 14:38 | Observation (INO) | payer OTHER ==
[2024-09-15 14:55] LABS: Glucose,Whole Blood 120 mg/dL (70-110)
[2024-09-15] MEDS: SODIUM CHLORIDE 0.9% 1,000 ML IV ONE ×2 (15:14→17:53)
[2024-09-15] MEDS: SODIUM CHLORIDE 0.9% 500 ML 500 ML IV ONE (15:14)
[2024-09-15 15:23] LABS: Basophils # (A) 0.1 k/uL (0-0.2); Basophils % (A) 1 %; Eosinophils # (A) 0.1 k/uL (0-0.7); Eosinophils % (A) 1 %; HGB 15.4 gm/dL (11.4-16.0); Lymphocytes # (A) 2.5 k/uL (1.0-4.8); Lymphocytes % (A) 43 %; MCH 32.6 pg (25.0-35.0); MCHC 32.1 g/dL (31.0-37.0); MCV 101.4 fL (80.0-100.0); Macrocytosis Slight; Mean Platelet Volume 7.4; Monocytes # (A) 0.8 k/uL (0-1.0); Monocytes % (A) 14 %; Neutrophils # (A) 2.2 k/uL (1.3-7.7); Neutrophils % (A) 37 %; Platelet Count 323 k/uL (150-450); RBC 4.74 m/uL (3.80-5.40); RDW 15.3 % (11.5-15.5); WBC 5.8 k/uL (3.8-10.6)
[2024-09-15 15:24] LABS: Appearance,Urine Clear (Clear); Bilirubin,Urine Negative (Negative); Blood,Urine Negative (Negative); Color,Urine Colorless; Glucose,Urine (UA) Negative (Negative); Ketones,Urine Negative (Negative); Leukocyte Esterase,Urine Negative (Negative); Nitrite,Urine Negative (Negative); PH, Urine 5.5 (5.0-8.0); Protein,Urine Negative (Negative); Specific Gravity,Urine 1.003 (1.001-1.035); Urobilinogen,Urine <2.0 mg/dL (<2.0)
[2024-09-15 15:31] LABS: ALT 24 U/L (4-34); AST 45 U/L (14-36); African American GFR (CKD) >90 (>60 ml/min/1.73 sqM); Alkaline Phosphatase 81 U/L (38-126); Anion Gap 13 mmol/L; Blood Urea Nitrogen 3 mg/dL (7-17); Calcium 9.5 mg/dL (8.4-10.2); Carbon Dioxide 22 mmol/L (22-30); Chloride 103 mmol/L (98-107); Glucose 124 mg/dL (74-99); Magnesium 1.9 mg/dL (1.6-2.3); Non-African American GFR(CKD) >90 (>60 ml/min/1.73 sqM); Potassium 4.4 mmol/L (3.5-5.1); Sodium 138 mmol/L (137-145); Total Bilirubin 0.6 mg/dL (0.2-1.3); Total Protein 7.9 g/dL (6.3-8.2)
[2024-09-15 15:39] LABS: Amphetamine Screen,Urine Not Detected (NotDetected); Barbiturate Screen,Urine Not Detected (NotDetected); Benzodiazepines Screen,Urine Detected (NotDetected); Cocaine Screen,Urine Not Detected (NotDetected); Methadone Screen, Urine Not Detected (NotDetected); Opiate Screen,Urine Not Detected (NotDetected); Oxycodone Screen, Urine Not Detected (NotDetected); Phencyclidine Screen,Urine Not Detected (NotDetected); Tricyclic Antidepressant,Urine Not Detected (NotDetected); Urn Cannabinoid Scrn Detected (NotDetected)
[2024-09-15 15:52] LABS: Alcohol 313 mg/dL
--- NOTE | 2024-09-15 16:24 | ED ---
General Adult HPI - General Chief complaint: Alcohol Stated complaint: ETOH Time Seen by Provider: 09/15/24 14:50 Source: patient, EMS, RN notes reviewed, old records reviewed Mode of arrival: ambulatory Limitations: no limitations - History of Present Illness Initial comments: This is a 58-year-old female who presents to the emergency department because of decreased responsiveness. Patient is a known drinker. Patient herself has no complaints. Patient is able to answer all questions accurately currently. Patient denies any chest pain difficulty breathing shortness of breath. Patient has abdominal pain patient has nausea vomiting or diarrhea. Patient Nuys any recent fever chills or cough. Patient denies any recent injury or trauma - Related Data Previous Rx's Medication Instructions Recorded Aspirin 81 mg PO DAILY 30 Days #30 tab 08/01/24 levETIRAcetam [Keppra] 500 mg PO Q12HR #14 tab 09/01/24 Fluconazole [Diflucan] 150 mg PO ONCE #2 tab 09/05/24 Allergies Allergy/AdvReac Type Severity Reaction Status Date / Time Penicillins Allergy Rash/Hives/Swelling Verified 09/15/24 14:43 all over body NSAIDS (Non-Steroidal AdvReac Unknown upset Verified 09/15/24 14:43 Anti-Inflamma stomach sertraline HCl [From Zoloft] AdvReac Suicidal/Ag Verified 09/15/24 14:43 ression Review of Systems ROS Statement: Those systems with pertinent positive or pertinent negative responses have been documented in the HPI. ROS Other: All systems not noted in ROS Statement are negative. Past Medical History Past Medical History: Cancer, COPD, Liver Disease, Myocardial Infarction ([place]), Seizure Disorder, Vascular Disorder Additional Past Medical History / Comment(s): constpation, feeling bloated,feeling of fullness, and abdominal pain, feels hungry then over eats then vomits to feel better, LAST SEIZURE - JANUARY 2021, "broken heart syndrome"., elevated liver enzymes, "dislocated disks", hx cervical cancer Last Myocardial Infarction Date:: 2019 History of Any Multi-Drug Resistant Organisms: None Reported Past Surgical History: Section, Heart Catheterization, Tubal Ligation Additional Past Surgical History / Comment(s): ORIF rt ankle/hardware later removed, exploratory lap, PAIN CLINIC PROCEDURE, BILAT CATARACTS REMOVED WITH LENS IMPLANTS, procedure to open a vein in left leg-couldn't confirm which leg, partial amputation rt hand middle finger, "procedure to remove cervical cancer" Past Anesthesia/Blood Transfusion Reactions: No Reported Reaction Past Psychological History: Anxiety, Bipolar, Depression, PTSD Smoking Status: Current every day smoker Past Alcohol Use History: Abuse, Daily, Heavy Past Drug Use History: Marijuana - Past Family History Father Family Medical History: Cancer, Prostate Disorder, Pulmonary Embolus Sister(s) Family Medical History: Cancer Brother(s) Family Medical History: Cancer Additional Family Medical History / Comment(s): colon and bladder General Exam - General Exam Comments Initial Comments: GENERAL: Patient is well-developed and well-nourished. Patient is nontoxic and well- hydrated and is in no acute distress. Patient however does seem acutely intoxicated ENT: Neck is soft and supple. No significant lymphadenopathy is noted. Oropharynx is clear. Moist mucous membranes. Neck has full range of motion without eliciting any pain. EYES: The sclera were anicteric and conjunctiva were pink and moist. Extraocular movements were intact and pupils were equal round and reactive to light. Eyelids were unremarkable. PULMONARY: Unlabored respirations. Good breath sounds bilaterally. No audible rales rhonchi or wheezing was noted. CARDIOVASCULAR: There is a regular rate and rhythm without any murmurs gallops or rubs. ABDOMEN: Soft and nontender with normal bowel sounds. SKIN: Skin is clear with no lesions or rashes and otherwise unremarkable. NEUROLOGIC: Patient is alert and oriented x3. Cranial nerves II through XII are grossly intact. Motor and sensory are also intact. Normal speech, volume and content. Symmetrical smile. MUSCULOSKELETAL: Normal extremities with adequate strength and full range of motion. LYMPHATICS: No significant lymphadenopathy is noted PSYCHIATRIC: Normal psychiatric evaluation. Limitations: no limitations Course Vital Signs 09/15/24 14:40 Temperature 97.7 F Pulse Rate 77 Respiratory 18 Rate Blood Pressure 147/92 O2 Sat by Pulse 99 Oximetry Procedures - Chloride Protocol (Time Out) Nurse: Tiffanie Bassett Medical Decision Making - Medical Decision Making EKG is interpreted by myself. EKG shows a sinus rhythm at 72 bpm CO was under 69 QRS is 87 QT interval 388 QTc is 412. EKG shows no ST segment elevation or depression Was pt. sent in by a medical professional or institution (, PA, SWIMMING POOL ATTENDANT, urgent care, hospital, or usp...) When possible be specific @ -No Did you speak to anyone other than the patient for history (EMS, parent, family, police, friend...)? What history was obtained from this source @ -No Did you review nursing and triage notes (agree or disagree)? Why? @ -I reviewed and agree with nursing and triage notes Were old charts reviewed (outside hosp., previous admission, EMS record, old EKG, old radiological studies, urgent care reports/EKG's, usp records)? Report findings @ -No old charts were reviewed Differential Diagnosis? @ -Differential Altered Mental Status: Hypoglycemia, DKA, hypercapnia, ETOH, overdose, CO poisoning, trauma, myxedema coma, HTN encephalopathy, infection, encephalitis, psychosis, intercranial hemorrhage, hepatic encephalopathy, meningitis, CVA, this is not meant to be an all-inclusive list EKG interpreted by me (3pts min.). @ -As above X-rays interpreted by me (1pt min.). @ -None done CT interpreted by me (1pt min.). @ -None done U/S interpreted by me (1pt. min.). @ -None done What testing was considered but not performed or refused? (CT, X-rays, U/S, labs)? Why? @ -None What meds were considered but not given or refused? Why? @ -None Did you discuss the management of the patient with other professionals (professionals i.e. , PA, SWIMMING POOL ATTENDANT, lab, RT, psych nurse, protective services social worker, food service manager, teacher, correction officer supervisor, family caseworker)? Give summary @ -I spoke with sound physicians he agreed to admit the patient Was smoking cessation discussed for >3mins.? @ -No Was critical care preformed (if so, how long)? @ -No Were there social determinants of health that impacted care today? How? (Homelessness, low income, unemployed, alcoholism, drug addiction, transportation, low edu. Level, literacy, decrease access to med. care, detention, rehab)? @ -No Was there de-escalation of care discussed even if they declined (Discuss DNR or withdrawal of care, Hospice)? DNR status @ -No What co-morbidities impacted this encounter? (DM, HTN, Smoking, COPD, CAD, Cancer, CVA, ARF, Chemo, Hep., AIDS, mental health diagnosis, sleep apnea, morbid obesity)? @ -None Was patient admitted / discharged? Hospital course, mention meds given and route, prescriptions, significant lab abnormalities, going to OR and other pertinent info. @ -Patient received a liter and half of normal saline. Spoke with sound physicians he agreed admit the patient for alcohol intoxication. Patient will be put on a CIAL protocol Undiagnosed new problem with uncertain prognosis? @ -No Drug Therapy requiring intensive monitoring for toxicity (Heparin, Nitro, Insulin, Cardizem)? @ -No Were any procedures done? @ -No Diagnosis/symptom? @ -Alcohol intoxication Acute, or Chronic, or Acute on Chronic? @ -Acute Uncomplicated (without systemic symptoms) or Complicated (systemic symptoms)? @ -Complicated Side effects of treatment? @ -No Exacerbation, Progression, or Severe Exacerbation? @ -No Poses a threat to life or bodily function? How? (Chest pain, [place], [place], pneumonia, PE, COPD, DKA, ARF, appy, cholecystitis, CVA, Diverticulitis, Homicidal, Suicidal, threat to staff... and all critical care pts) @ -No - Lab Data Result diagrams: 09/15/24 15:02 09/15/24 15:02 Lab Results 09/15/24 09/15/24 09/15/24 Range/Units 14:53 15:02 15:02 WBC 5.8 (3.8-10.6) k/uL RBC 4.74 (3.80-5.40) m/uL Hgb 15.4 (11.4-16.0) gm/dL Hct 48.0 H (34.0-46.0) % MCV 101.4 H (80.0-100.0) fL MCH 32.6 (25.0-35.0) pg MCHC 32.1 (31.0-37.0) g/dL RDW 15.3 (11.5-15.5) % Plt Count 323 (150-450) k/uL MPV 7.4 Neutrophils % 37 % Lymphocytes % 43 % Monocytes % 14 % Eosinophils % 1 % Basophils % 1 % Neutrophils # 2.2 (1.3-7.7) k/uL Lymphocytes # 2.5 (1.0-4.8) k/uL Monocytes # 0.8 (0-1.0) k/uL Eosinophils # 0.1 (0-0.7) k/uL Basophils # 0.1 (0-0.2) k/uL Macrocytosis Slight Sodium 138 (137-145) mmol/L Potassium 4.4 (3.5-5.1) mmol/L Chloride 103 (98-107) mmol/L Carbon Dioxide 22 (22-30) mmol/L Anion Gap 13 mmol/L BUN 3 L (7-17) mg/dL Creatinine 0.43 L (0.52-1.04) mg/dL Est GFR (CKD-EPI)AfAm >90 (>60 ml/min/1.73 sqM) Est GFR (CKD-EPI)NonAf >90 (>60 ml/min/1.73 sqM) Glucose 124 H (74-99) mg/dL POC Glucose (mg/dL) 120 H (70-110) mg/dL POC Glu Residential Supervisor ID [facility] Krishna Calcium 9.5 (8.4-10.2) mg/dL Magnesium 1.9 (1.6-2.3) mg/dL Total Bilirubin 0.6 (0.2-1.3) mg/dL AST 45 H (14-36) U/L ALT 24 (4-34) U/L Alkaline Phosphatase 81 (38-126) U/L Total Protein 7.9 (6.3-8.2) g/dL Albumin 5.0 (3.5-5.0) g/dL Urine Color Urine Appearance (Clear) Urine pH (5.0-8.0) Ur Specific [place] (1.001-1.035) Urine Protein (Negative) Urine Glucose (UA) (Negative) Urine Ketones (Negative) Urine Blood (Negative) Urine Nitrite (Negative) Urine Bilirubin (Negative) Urine Urobilinogen (<2.0) mg/dL Ur Leukocyte Esterase (Negative) Urine Opiates Screen (NotDetected) Ur Oxycodone Screen (NotDetected) Urine Methadone Screen (NotDetected) Ur Barbiturates Screen (NotDetected) U Tricyclic Antidepress (NotDetected) Ur Phencyclidine Scrn (NotDetected) Ur Amphetamines Screen (NotDetected) U Methamphetamines Scrn (NotDetected) U Benzodiazepines Scrn (NotDetected) Urine Cocaine Screen (NotDetected) U Marijuana (THC) Screen (NotDetected) Serum Alcohol 313 H* mg/dL 09/15/24 Range/Units 15:03 WBC (3.8-10.6) k/uL RBC (3.80-5.40) m/uL Hgb (11.4-16.0) gm/dL Hct (34.0-46.0) % MCV (80.0-100.0) fL MCH (25.0-35.0) pg MCHC (31.0-37.0) g/dL RDW (11.5-15.5) % Plt Count (150-450) k/uL MPV Neutrophils % % Lymphocytes % % Monocytes % % Eosinophils % % Basophils % % Neutrophils # (1.3-7.7) k/uL Lymphocytes # (1.0-4.8) k/uL Monocytes # (0-1.0) k/uL Eosinophils # (0-0.7) k/uL Basophils # (0-0.2) k/uL Macrocytosis Sodium (137-145) mmol/L Potassium (3.5-5.1) mmol/L Chloride (98-107) mmol/L Carbon Dioxide (22-30) mmol/L Anion Gap mmol/L BUN (7-17) mg/dL Creatinine (0.52-1.04) mg/dL Est GFR (CKD-EPI)AfAm (>60 ml/min/1.73 sqM) Est GFR (CKD-EPI)NonAf (>60 ml/min/1.73 sqM) Glucose (74-99) mg/dL POC Glucose (mg/dL) (70-110) mg/dL POC Glu Residential Supervisor ID Calcium (8.4-10.2) mg/dL Magnesium (1.6-2.3) mg/dL Total Bilirubin (0.2-1.3) mg/dL AST (14-36) U/L ALT (4-34) U/L Alkaline Phosphatase (38-126) U/L Total Protein (6.3-8.2) g/dL Albumin (3.5-5.0) g/dL Urine Color Colorless Urine Appearance Clear (Clear) Urine pH 5.5 (5.0-8.0) Ur Specific [place] 1.003 (1.001-1.035) Urine Protein Negative (Negative) Urine Glucose (UA) Negative (Negative) Urine Ketones Negative (Negative) Urine Blood Negative (Negative) Urine Nitrite Negative (Negative) Urine Bilirubin Negative (Negative) Urine Urobilinogen <2.0 (<2.0) mg/dL Ur Leukocyte Esterase Negative (Negative) Urine Opiates Screen Not Detected (NotDetected) Ur Oxycodone Screen Not Detected (NotDetected) Urine Methadone Screen Not Detected (NotDetected) Ur Barbiturates Screen Not Detected (NotDetected) U Tricyclic Antidepress Not Detected (NotDetected) Ur Phencyclidine Scrn Not Detected (NotDetected) Ur Amphetamines Screen Not Detected (NotDetected) U Methamphetamines Scrn Not Detected (NotDetected) U Benzodiazepines Scrn Detected H (NotDetected) Urine Cocaine Screen Not Detected (NotDetected) U Marijuana (THC) Screen Detected H (NotDetected) Serum Alcohol mg/dL Disposition Clinical Impression: Alcohol intoxication Disposition: ADMITTED IP TO THIS HOSP Referrals: None,Stated [Primary Care Provider] - 1-2 days Time of Disposition: 16:24
[2024-09-15] MEDS ORDERED: LORazepam 0.5 MG TAB PO PRN (16:26)
[2024-09-15] MEDS ORDERED: LORazepam 2 MG/ML INJ IV PRN ×3 (16:26)
--- NOTE | 2024-09-15 17:19 | P.HPIM ---
History of Present Illness H&P Date: 09/15/24 History of Presenting Illness: Patient is a 58-year-old female with a past medical history of alcoholism with reports of excessive daily alcohol abuse, hypertension, Takotsubo's cardiomyopathy with a recovered EF of 60 to 65%., Anxiety, nicotine dependence, and previous head injury resulting in seizure disorder on Keppra. She presented to the emergency department via EMS secondary to reports of alcohol intoxication and concerns that she drink too much because she was difficult to arouse. Per documentation in chart patient drinks 4 tall boy beers today. Patient currently alert and oriented x 4 and denies any complaints. She reports 4 tall boys is not saying as she drinks much more than that usually. Patient reports she does drink "a lot of alcohol for a long time". She denies any recent falls or injuries. She denies having any lightheadedness, dizziness, changes in vision or hearing, chest pain, palpitations, shortness of breath, cough or congestion, nausea or vomiting, abdominal pain or discomfort, or experiencing any numbness/tingling/weakness/swelling in her extremities. She reports she has been taking her Keppra and her aspirin, but reports she ran out of her other "heart medicines" a couple of days ago because she could not get into see a doctor and needs a refill on her prescriptions. Upon arrival to our facility, patient underwent evaluation in the emergency department. Vital signs upon arrival show blood pressure 147/92, heart rate 77, respiratory rate 18, temp 97.7 F, and SpO2 of 99% on room air. Pleated showing normal sinus rhythm at 72 bpm with no noted T wave or ST abnormalities showing no signs of acute ischemia upon personal review and interpretation. [id number] glucose upon arrival was 120. Labs completed and reviewed. CBC showing macrocytosis with MCV of 101.4. BMP unremarkable. Blood glucose 124. Magnesium 1.9. Liver profile showing elevated AST of 45 otherwise normal findings. Urinalysis negative for blood, ketones, protein, or infection. Urine drug screen positive for benzodiazepines and marijuana. Serum alcohol level was elevated at 313. Patient admitted under services for alcohol intoxication pending withdraw. Patient states that she does drink a lot, but declines wanting assistance with placement in inpatient rehab. She reports plans to go back home with her fianc tomorrow. Review of systems: Pertinent positives and negatives as discussed in HPI, a complete review of systems was performed and all other systems are negative. Physical exam: Vital signs reviewed and stable. General: Nontoxic, no distress and appears older than stated age. Derm: Skin warm and dry, normal coloration for ethnicity. Head: Atraumatic, normocephalic and symmetric. Eyes: EOM's intact, no lid lag, and anicteric sclera Mouth: no lip lesions, mucus membranes moist Cardiovascular: regular rate and rhythm with normal S1S2, no murmur, positive posterior tibial pulses bilaterally, and cap refill < 2 seconds. Lungs: Respirations even, regular, and unlabored on room air. Lungs CTA bilaterally, no rhonchi, no rales, no wheezing, and no accessory muscle usage. Abdominal: soft, nontender to palpation, no guarding, no appreciable organomegaly Ext: ROM intact. No gross muscle atrophy, no edema, no contractures Neuro: Speech clear, face symmetrical and CN II-XII grossly intact with no noted focal neuro deficits Psych: Alert and oriented to person, place, time, and situation. Appropriate and pleasant affect. Assessment and Plan of Care: Alcohol intoxication in active alcoholic Macrocytosis, secondary to daily alcohol abuse Elevated transaminase, secondary to daily alcohol abuse -Order placed for monitoring of CIWA scores and patient to be medicated with Ativan 0.5 mg every 4 hours as needed for CIWA score of 4-5, Ativan 1 mg every 4 hours for CIWA score of 6-7, Ativan 2 mg every 3 hours CIWA score of 8-9, and Ativan 2 mg every 2 hours forr CIWA score of 10 or greater. -Continuous IV hydration with 0.9% normal saline at 75 cc/h -Thiamine 100 mg daily, and Multivitamin daily, and Folate 1 mg daily -Seizure, fall, aspiration, and elopement precautions in place. -Urine drug screen positive for benzodiazepines and marijuana -Continued close monitoring of electrolytes and replace as needed. -Telemetry monitoring. Takotsubo's cardiomyopathy with a recovered EF Hypertension Hyperlipidemia -Continue cardiac medication regimen with aspirin 81 mg daily, carvedilol 3.125 mg twice daily with meals, atorvastatin 40 mg daily, and losartan 25 mg daily. -Continue telemetry monitoring and monitor vital signs. Nicotine dependence -Recommend smoking cessation.-Order placed for nicotine patch 14 mg daily. The patient is admitted with an anticipated less than 2 midnight stay for evaluation of alcohol intoxication CODE STATUS: Full code DVT prophylaxis: Lovenox Discussed with: Patient and ED physician Anticipated discharge date: Tomorrow morning Anticipated discharge place: Home Patient was seen independently by Nurse Practitioner. This document was prepared using [employer] dictation software. Please allow for errors in agronomy instructor while rare they do occur. Pipe Burdick BILINGUAL CALL CENTER REPRESENTATIVE rendered care for this patient independently, reviewed the findings and plan as documented in the note above and agree with plan. I did not physically speak with or examine the patient on this date. Past Medical History Past Medical History: Cancer, COPD, Liver Disease, Myocardial Infarction ([place]), Seizure Disorder, Vascular Disorder Additional Past Medical History / Comment(s): constpation, feeling bloated,feeling of fullness, and abdominal pain, feels hungry then over eats then vomits to feel better, LAST SEIZURE - JANUARY 2021, "broken heart syndro me"., elevated liver enzymes, "dislocated disks", hx cervical cancer Last Myocardial Infarction Date:: 2019 History of Any Multi-Drug Resistant Organisms: None Reported Past Surgical History: Section, Heart Catheterization, Tubal Ligation Additional Past Surgical History / Comment(s): ORIF rt ankle/hardware later removed, exploratory lap, PAIN CLINIC PROCEDURE, BILAT CATARACTS REMOVED WITH LENS IMPLANTS, procedure to open a vein in left leg-couldn't confirm which leg, partial amputation rt hand middle finger, "procedure to remove cervical cancer" Past Anesthesia/Blood Transfusion Reactions: No Reported Reaction Past Psychological History: Anxiety, Bipolar, Depression, PTSD Smoking Status: Current every day smoker Past Alcohol Use History: Abuse, Daily, Heavy Past Drug Use History: Marijuana - Past Family History Father Family Medical History: Cancer, Prostate Disorder, Pulmonary Embolus Sister(s) Family Medical History: Cancer Brother(s) Family Medical History: Cancer Additional Family Medical History / Comment(s): colon and bladder Medications and Allergies Home Medications Medication Instructions Recorded Confirmed Type Aspirin 81 mg PO DAILY 30 Days #30 tab 08/01/24 09/15/24 Rx levETIRAcetam [Keppra] 500 mg PO Q12HR #14 tab 09/01/24 09/15/24 Rx Allergies Allergy/AdvReac Type Severity Reaction Status Date / Time Penicillins Allergy Rash/Hives/Swelling Verified 09/15/24 17:28 all over body NSAIDS (Non-Steroidal AdvReac Unknown upset Verified 09/15/24 17:28 Anti-Inflamma stomach sertraline HCl [From Zoloft] AdvReac Suicidal/Ag Verified 09/15/24 17:28 ression Physical Exam Vitals: Vital Signs Temp Pulse Resp BP Pulse Ox 09/15/24 14:40 97.7 F 77 18 147/92 99 Intake and Output 09/15/24 09/15/24 09/15/24 06:59 14:59 22:59 Other: Weight 44.452 kg Results CBC & Chem 7: 09/15/24 15:02 09/15/24 15:02 Labs: Abnormal Lab Results - Last 24 Hours (Table) 09/15/24 09/15/24 09/15/24 Range/Units 14:53 15:02 15:02 Hct 48.0 H (34.0-46.0) % MCV 101.4 H (80.0-100.0) fL BUN 3 L (7-17) mg/dL Creatinine 0.43 L (0.52-1.04) mg/dL Glucose 124 H (74-99) mg/dL POC Glucose (mg/dL) 120 H (70-110) mg/dL AST 45 H (14-36) U/L U Benzodiazepines Scrn (NotDetected) U Marijuana (THC) Screen (NotDetected) Serum Alcohol 313 H* mg/dL 09/15/24 Range/Units 15:03 Hct (34.0-46.0) % MCV (80.0-100.0) fL BUN (7-17) mg/dL Creatinine (0.52-1.04) mg/dL Glucose (74-99) mg/dL POC Glucose (mg/dL) (70-110) mg/dL AST (14-36) U/L U Benzodiazepines Scrn Detected H (NotDetected) U Marijuana (THC) Screen Detected H (NotDetected) Serum Alcohol mg/dL
[2024-09-15] MEDS: NICOTINE 14MG/24HR PATCH TRANSDERM STA (17:52)
[2024-09-15] MEDS: THIAMINE 100 MG/ML 2 ML VIAL IM STA (17:52)
[2024-09-15] MEDS: carvediloL 3.125 MG TAB PO SCH (17:52)
[2024-09-15] MEDS: ACETAMINOPHEN TAB 325 MG TAB PO PRN (19:46)
[2024-09-15] MEDS: levETIRAcetam 500 MG TAB PO SCH (20:54)
[2024-09-15] MEDS: ONDANSETRON 4 MG/2 ML VIAL IVP PRN (22:26)
[2024-09-15] MEDS ORDERED: LORazepam 1 MG/0.5 ML VIAL IV PRN ×2 (22:31)
[2024-09-15] MEDS: LORazepam 1 MG/0.5 ML VIAL IV PRN (22:50)
[2024-09-16 07:38] VITALS: RESP 15; TEMP 97.7
[2024-09-16 07:44] VITALS: BP 172/96; PULSE 70
[2024-09-16] MEDS: ASPIRIN 81 MG PO SCH (08:54)
[2024-09-16] MEDS: THIAMINE 100 MG TAB PO SCH (08:54)
[2024-09-16] MEDS: FOLIC ACID 1 MG TAB PO SCH (08:54)
[2024-09-16] MEDS: MULTIVITAMINS, THERA 1 EACH TAB PO SCH (08:54)
[2024-09-16] MEDS: ATORVASTATIN 40 MG TAB PO SCH (08:54)
[2024-09-16] MEDS: LOSARTAN 25 MG TAB PO SCH (08:54)
[2024-09-16] MEDS: LORazepam 1 MG TAB PO PRN (09:24)
[2024-09-16 09:49] LABS: Blood Urea Nitrogen 3.8 mg/dL (9.0-27.0); Calcium 8.3 mg/dL (8.7-10.3); Carbon Dioxide 22.8 mmol/L (21.6-31.8); Chloride 107 mmol/L (96-109); Glucose 105 mg/dL (70-110); Magnesium 1.5 mg/dL (1.5-2.4); Potassium 3.8 mmol/L (3.5-5.5); Sodium 141 mmol/L (135-145)
--- NOTE | 2024-09-16 10:09 | P.DS ---
Providers Date of admission: 09/15/24 16:25 Expected date of discharge: 09/16/24 Attending physician: Hiren Banerjee Primary care physician: Stated None Hospital Course: Discharge Diagnosis: Alcohol intoxication in active alcoholic on arrival. Patient medically sober and cleared for discharge at this time. Patient strongly encouraged to avoid further alcohol use. Patient declined assistance with placement in rehab. She was provided with outpatient resources/community resources available to her including AA meetings, counseling services, and a list of inpatient drug and alcohol rehabilitation facilities available to her if she changes her mind. Macrocytosis, secondary to daily alcohol abuse Elevated transaminase, secondary to daily alcohol abuse Takotsubo's cardiomyopathy with a recovered EF. Continue cardiac medication regimen with aspirin 81 mg daily, carvedilol 3.125 mg twice daily with meals, atorvastatin 40 mg daily, and losartan 25 mg daily. Prescriptions sent for refills as patient reports she ran out of her medications at home. Patient st kekegly encouraged to follow-up outpatient with PCP. Hypertension. Continue medication regimen with carvedilol 3.125 mg twice daily with meals and losartan 25 mg daily. Hyperlipidemia. Continue medication regimen with atorvastatin 40 mg daily. Nicotine dependence. Recommend smoking cessation. Hospital Course: Patient is a 58-year-old female with a past medical history of alcoholism with reports of excessive daily alcohol abuse, hypertension, Takotsubo's cardiomyopathy with a recovered EF of 60 to 65%., Anxiety, nicotine dependence, and previous head injury resulting in seizure disorder on Keppra. She presented to the emergency department via EMS secondary to reports of alcohol intoxication and concerns that she drink too much because she was difficult to arouse. Per documentation in chart patient drinks 4 tall boy beers today. Patient currently alert and oriented x 4 and denies any complaints. She reports 4 tall boys is not saying as she drinks much more than that usually. Patient reports she does drink "a lot of alcohol for a long time". She denies any recent falls or injuries. She denies having any lightheadedness, dizziness, changes in vision or hearing, chest pain, palpitations, shortness of breath, cough or congestion, nausea or vomiting, abdominal pain or discomfort, or experiencing any numbness/tingling/weakness/swelling in her extremities. She reports she has been taking her Keppra and her aspirin, but reports she ran out of her other "heart medicines" a couple of days ago because she could not get into see a doctor and needs a refill on her prescriptions. Upon arrival to our facility, patient underwent evaluation in the emergency department. Vital signs upon arrival show blood pressure 147/92, heart rate 77, respiratory rate 18, temp 97.7 F, and SpO2 of 99% on room air. Pleated showing normal sinus rhythm at 72 bpm with no noted T wave or ST abnormalities showing no signs of acute ischemia upon personal review and interpretation. [id number] glucose upon arrival was 120. Labs completed and reviewed. CBC showing macrocytosis with MCV of 101.4. BMP unremarkable. Blood glucose 124. Magnesium 1.9. Liver profile showing elevated AST of 45 otherwise normal findings. Urinalysis negative for blood, ketones, protein, or infection. Urine drug screen positive for benzodiazepines and marijuana. Serum alcohol level was elevated at 313. Patient admitted under services for alcohol intoxication pending withdraw. Patient states that she does drink a lot, but declines wanting assistance with placement in inpatient rehab. Patient hospitalized overnight provided with IV fluid hydration and magnesium supplement. She is clinically and medically sober at this time and optimized for discharge home. Patient strongly encouraged to avoid any and all alcohol use. Prescription sent for patient's home medications including aspirin, carvedilol, atorvastatin, losartan, and Keppra. Physical exam: Vital signs reviewed and stable. General: Nontoxic, no distress and appears older than stated age. Derm: Skin warm and dry, normal coloration for ethnicity. Head: Atraumatic, normocephalic and symmetric. Eyes: EOM's intact, no lid lag, and anicteric sclera Mouth: no lip lesions, mucus membranes moist Cardiovascular: regular rate and rhythm with normal S1S2, no murmur, positive posterior tibial pulses bilaterally, and cap refill < 2 seconds. Lungs: Respirations even, regular, and unlabored on room air. Lungs CTA bilaterally, no rhonchi, no rales, no wheezing, and no accessory muscle usage. Abdominal: soft, nontender to palpation, no guarding, no appreciable organomegaly Ext: ROM intact. No gross muscle atrophy, no edema, no contractures Neuro: Speech clear, face symmetrical and CN II-XII grossly intact with no noted focal neuro deficits Psych: Alert and oriented to person, place, time, and situation. Appropriate and pleasant affect. A total of 33 minutes of time were spent preparing this complex discharge summary. Pt was discharged on at 9:30 AM. Patient was seen independently by Nurse Practitioner. This document was prepared using [employer] dictation software. Please allow for errors in cargo broker while rare they do occur. Pipe Burdick NP rendered care for this patient independently, reviewed the findings and plan as documented in the note above. I did not physically speak with or examine the patient on this date. Patient Condition at Discharge: Stable Plan - Discharge Summary Discharge Rx Participant: Yes New Discharge Prescriptions: New carvediloL [Coreg] 3.125 mg PO BID-W/MEALS 90 Days #180 tab Folic Acid 1 mg PO DAILY 90 Days #90 tab Multivitamins, Thera [Multivitamin (formulary)] 1 each PO DAILY 90 Days #90 tab Losartan [Cozaar] 25 mg PO DAILY 90 Days #90 tab Atorvastatin [Lipitor] 40 mg PO DAILY 90 Days #90 tab Thiamine [Vitamin B-1] 100 mg PO DAILY 90 Days #90 tab Continue Aspirin 81 mg PO DAILY 90 Days #90 tab levETIRAcetam [Keppra] 500 mg PO Q12HR 90 Days #180 tab Discharge Medication List Aspirin 81 mg PO DAILY 90 Days #90 tab 09/16/24 [Rx] Atorvastatin [Lipitor] 40 mg PO DAILY 90 Days #90 tab 09/16/24 [Rx] Folic Acid 1 mg PO DAILY 90 Days #90 tab 09/16/24 [Rx] Losartan [Cozaar] 25 mg PO DAILY 90 Days #90 tab 09/16/24 [Rx] Multivitamins, Thera [Multivitamin (formulary)] 1 each PO DAILY 90 Days #90 tab 09/16/24 [Rx] Thiamine [Vitamin B-1] 100 mg PO DAILY 90 Days #90 tab 09/16/24 [Rx] carvediloL [Coreg] 3.125 mg PO BID-W/MEALS 90 Days #180 tab 09/16/24 [Rx] levETIRAcetam [Keppra] 500 mg PO Q12HR 90 Days #180 tab 09/16/24 [Rx] Follow up Appointment(s)/Referral(s): [facility] [NON-STAFF] - 1 Week Patient Instructions/Handouts: Abuse of Alcohol (DC), Alcohol Withdrawal (DC) Activity/Diet/Wound Care/Special Instructions: Activity: As tolerated. Take breaks as needed. Diet: Heart healthy and carb consistent diet. Special Instructions: Strongly recommend cessation of any and all alcohol use. Prescriptions were sent to [facility] on [address] for your cardiac medications including aspirin, atorvastatin, losartan, and carvedilol along with a new prescription for your Keppra. It is strongly recommended that you call the [facility] first thing Wednesday morning to schedule a follow-up appointment and to establish care with a primary care physician. Thank you for allowing us to participate in your care, it was truly a pleasure having you for our patient!!! Discharge/Stand Alone Forms: AA Meetings [facility], Community Resources, Outpatient Counseling, Inp Substance Abuse Facilities Discharge Disposition: HOME SELF-CARE
[2024-09-16] MEDS: MAGNESIUM OXIDE 400 MG TAB PO STA (11:06)
== END 2024-09-16 11:33 | disposition home or self-care (01) ==
LOC: EC 14:38 → 6NMEDSUR 16:25
PROVIDERS: ADMIT Student in an Organized Health Care Education/Training Program; ATTEND Student in an Organized Health Care Education/Training Program
DX: F10.229 Alcohol dependence with intoxication, unspecified (principal); I10 Essential (primary) hypertension; E78.5 Hyperlipidemia, unspecified; T44.7X6A Underdosing of beta-adrenoreceptor antagonists, initial encounter; T46.5X6A Underdosing of other antihypertensive drugs, initial encounter; T46.6X6A Underdosing of antihyperlipidemic and antiarteriosclerotic drugs, initial encounter; Z91.128 Patient's intentional underdosing of medication regimen for other reason; G40.909 Epilepsy, unspecified, not intractable, without status epilepticus; Y90.8 Blood alcohol level of 240 mg/100 ml or more; D75.89 Other specified diseases of blood and blood-forming organs; R74.01 Elevation of levels of liver transaminase levels; F17.200 Nicotine dependence, unspecified, uncomplicated; F41.9 Anxiety disorder, unspecified; Z79.82 Long term (current) use of aspirin; Z79.899 Other long term (current) drug therapy; Z88.0 Allergy status to penicillin; Z88.6 Allergy status to analgesic agent; Z88.8 Allergy status to other drugs, medicaments and biological substances; Z86.79 Personal history of other diseases of the circulatory system; Z87.828 Personal history of other (healed) physical injury and trauma
CPT/HCPCS: 96361 ×3; 96374; 96375; 96372; 99285; 36415; 80053; 80048; 83735 ×2; 85025; 81003; 80306; G0378 ×2; G0480; S4990; J2060; J3411; J2405; 80320

== ENCOUNTER 2024-09-17 22:23 | Emergency (ER) | payer OTHER ==
[2024-09-17 22:32] VITALS: RESP 18; TEMP 97.8
--- NOTE | 2024-09-17 22:54 | ED ---
Alcohol HPI - General Chief Complaint: Alcohol Stated Complaint: EOTH Time Seen by Provider: 09/17/24 22:25 Source: patient, EMS, RN notes reviewed, old records reviewed Mode of arrival: EMS Limitations: altered mental status, physical limitation - History of Present Illness Initial Comments: This is a 58-year-old female to ER for alcohol intoxication. 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) Previous Visits for Alcohol Intoxication?: Yes Associated Symptoms: denies other symptoms Treatments Prior to Arrival: none Chronic Alcohol Use: Yes - Related Data Previous Rx's Medication Instructions Recorded Aspirin 81 mg PO DAILY 90 Days #90 tab 09/16/24 Atorvastatin [Lipitor] 40 mg PO DAILY 90 Days #90 tab 09/16/24 Folic Acid 1 mg PO DAILY 90 Days #90 tab 09/16/24 Losartan [Cozaar] 25 mg PO DAILY 90 Days #90 tab 09/16/24 Multivitamins, Thera [Multivitamin 1 each PO DAILY 90 Days #90 tab 09/16/24 (formulary)] Thiamine [Vitamin B-1] 100 mg PO DAILY 90 Days #90 tab 09/16/24 carvediloL [Coreg] 3.125 mg PO BID-W/MEALS 90 Days 09/16/24 #180 tab levETIRAcetam [Keppra] 500 mg PO Q12HR 90 Days #180 tab 09/16/24 Allergies Allergy/AdvReac Type Severity Reaction Status Date / Time Penicillins Allergy Rash/Hives/Swelling Verified 09/17/24 22:31 all over body NSAIDS (Non-Steroidal AdvReac Unknown upset Verified 09/15/24 17:28 Anti-Inflamma stomach sertraline HCl [From Zoloft] AdvReac Suicidal/Ag Verified 09/15/24 17:28 ression Review of Systems ROS Statement: Those systems with pertinent positive or pertinent negative responses have been documented in the HPI. ROS Other: All systems not noted in ROS Statement are negative. Past Medical History Past Medical History: Cancer, COPD, Hypertension, Liver Disease, Myocardial Infarction ([place]), Seizure Disorder, Vascular Disorder Additional Past Medical History / Comment(s): constpation, feeling bloated,feeling of fullness, and abdominal pain, feels hungry then over eats then vomits to feel better, LAST SEIZURE - JANUARY 2021, "broken heart syndrome"., elevated liver enzymes, "dislocated disks", hx cervical cancer Last Myocardial Infarction Date:: 2019 History of Any Multi-Drug Resistant Organisms: None Reported Past Surgical History: Section, Heart Catheterization, Tubal Ligation Additional Past Surgical History / Comment(s): ORIF rt ankle/hardware later removed, exploratory lap, PAIN CLINIC PROCEDURE, BILAT CATARACTS REMOVED WITH LENS IMPLANTS, procedure to open a vein in left leg-couldn't confirm which leg, partial amputation rt hand middle finger, "procedure to remove cervical cancer" Past Anesthesia/Blood Transfusion Reactions: No Reported Reaction Past Psychological History: Anxiety, Bipolar, Depression, PTSD Smoking Status: Current every day smoker Past Alcohol Use History: Abuse, Daily, Heavy Past Drug Use History: Marijuana - Past Family History Father Family Medical History: Cancer, Prostate Disorder, Pulmonary Embolus Sister(s) Family Medical History: Cancer Brother(s) Family Medical History: Cancer Additional Family Medical History / Comment(s): colon and bladder General Exam Limitations: altered mental status General appearance: alert, appears intoxicated Head exam: Present: atraumatic, normocephalic, normal inspection Eye exam: Present: normal appearance, PERRL, EOMI. Absent: scleral icterus, conjunctival injection, periorbital swelling ENT exam: Present: normal exam, mucous membranes moist Neck exam: Present: normal inspection. Absent: tenderness, meningismus, lymphadenopathy Respiratory exam: Present: normal lung sounds bilaterally. Absent: respiratory distress, wheezes, rales, rhonchi, stridor Cardiovascular Exam: Present: regular rate, normal rhythm, normal heart sounds. Absent: systolic murmur, diastolic murmur, rubs, gallop, clicks GI/Abdominal exam: Present: soft, normal bowel sounds. Absent: distended, tenderness, guarding, rebound, rigid Extremities exam: Present: normal inspection, full ROM, normal capillary refill. Absent: tenderness, pedal edema, joint swelling, calf tenderness Back exam: Present: normal inspection Neurological exam: Present: alert, oriented X3, CN II-XII intact Psychiatric exam: Present: normal affect, normal mood Skin exam: Present: warm, dry, intact, normal color. Absent: rash Course Vital Signs 09/17/24 09/18/24 22:28 06:46 Temperature 97.8 F Pulse Rate 66 78 Respiratory 18 18 Rate Blood Pressure 138/104 126/92 O2 Sat by Pulse 94 L 96 Oximetry - Reevaluation(s) Reevaluation #1: 09/17/24 23:42 Medical records reviewed Reevaluation #2: 09/17/24 23:42 Patient symptoms unchanged Reevaluation #3: 09/17/24 23:42 Patient informed of results and questions answered Reevaluation #4: Was pt. sent in by a medical professional or institution (, [facility], VENDER, urgent care, hospital, or senior living...) When possible be specific @ -no Did you speak to anyone other than the patient for history (EMS, parent, family, police, friend...)? What history was obtained from this source @ -no Did you review nursing and triage notes (agree or disagree)? Why? @ -agree Are old charts reviewed (outside hosp., previous admission, EMS record, old EKG, old radiological studies, urgent care reports/EKG's, senior living records)? Report findings @ -yes Differential Diagnosis (chest pain, altered mental status, abdominal pain women, abdominal pain men, vaginal bleeding, weakness, fever, dyspnea, syncope, headache, dizziness, GI bleed, back pain, seizure, CVA, palpatations, mental health, musculoskeletal)? @ -prior EKG interpreted by me (3pts min.). @ -yes X-rays interpreted by me (1pt min.). @ -no CT interpreted by me (1pt min.). @ -no U/S interpreted by me (1pt. min.). @ -no What testing was considered but not performed or refused? (CT, X-rays, U/S, labs)? Why? @ -none What meds were considered but not given or refused? Why? @ -none Did you discuss the management of the patient with other professionals (professionals i.e. BENI Dill, VENDER, lab, RT, psych nurse, foster care social worker, television news reporter, teacher, neighborhood conservation officer, bilingual patient support caseworker)? Give summary @ -no Was smoking cessation discussed for >3mins.? @ -no Was critical care preformed (if so, how long)? @ -no Were there social determinants of health that impacted care today? How? (Homelessness, low income, unemployed, alcoholism, drug addiction, transportation, low edu. Level, literacy, decrease access to med. care, care home, rehab)? @ -none Was there de-escalation of care discussed even if they declined (Discuss DNR or withdrawal of care, Hospice)? DNR status @ -no What co-morbidities impacted this encounter? (DM, HTN, Smoking, COPD, CAD, Cancer, CVA, ARF, Chemo, Hep., AIDS, mental health diagnosis, sleep apnea, morbid obesity)? @ -none Was patient admitted / discharged? Hospital course, mention meds given and route, prescriptions, significant lab abnormalities, going to OR and other pertinent info. @ - 58 female to ER for severe alcohol intoxication. Patient significantly intoxicated here in the ER for discharge in the morning Discharge alcohol intoxication Undiagnosed new problem with uncertain prognosis? @ -no Drug Therapy requiring intensive monitoring for toxicity (Heparin, Nitro, Insulin, Cardizem)? @ -no Were any procedures done? @ -no Diagnosis/symptom? @ - Acute, or Chronic, or Acute on Chronic? @ -Acute Uncomplicated (without systemic symptoms) or Complicated (systemic symptoms)? @ -Complicated Side effects of treatment? @ -no Exacerbation, Progression, or Severe Exacerbation? @ -exacerbation Poses a threat to life or bodily function? How? (Chest pain, [place], MT, pneumonia, PE, COPD, DKA, ARF, appy, cholecystitis, CVA, Diverticulitis, Homicidal, Suicidal, threat to staff... and all critical care pts) @ -yes severe alcohol intoxication Medical Decision Making - Medical Decision Making 58 female to ER for severe alcohol intoxication. Patient significantly intoxicated here in the ER for discharge in the morning - Lab Data Result diagrams: 09/17/24 23:05 09/17/24 23:05 Lab Results 09/17/24 09/17/24 Range/Units 23:05 23:05 WBC 5.4 (3.8-10.6) k/uL RBC 4.47 (3.80-5.40) m/uL Hgb 14.5 (11.4-16.0) gm/dL Hct 44.3 (34.0-46.0) % MCV 99.0 (80.0-100.0) fL MCH 32.5 (25.0-35.0) pg MCHC 32.8 (31.0-37.0) g/dL RDW 14.9 (11.5-15.5) % Plt Count 290 (150-450) k/uL MPV 7.3 Neutrophils % 36 % Lymphocytes % 50 % Monocytes % 10 % Eosinophils % 2 % Basophils % 1 % Neutrophils # 1.9 (1.3-7.7) k/uL Lymphocytes # 2.7 (1.0-4.8) k/uL Monocytes # 0.5 (0-1.0) k/uL Eosinophils # 0.1 (0-0.7) k/uL Basophils # 0.0 (0-0.2) k/uL Macrocytosis Slight Sodium 141 (137-145) mmol/L Potassium 4.0 (3.5-5.1) mmol/L Chloride 105 (98-107) mmol/L Carbon Dioxide 25 (22-30) mmol/L Anion Gap 11 mmol/L BUN 4 L (7-17) mg/dL Creatinine 0.36 L (0.52-1.04) mg/dL Est GFR (CKD-EPI)AfAm >90 (>60 ml/min/1.73 sqM) Est GFR (CKD-EPI)NonAf >90 (>60 ml/min/1.73 sqM) Glucose 89 (74-99) mg/dL Calcium 9.3 (8.4-10.2) mg/dL Phosphorus 4.7 H (2.5-4.5) mg/dL Magnesium 2.0 (1.6-2.3) mg/dL Total Bilirubin 0.5 (0.2-1.3) mg/dL AST 33 (14-36) U/L ALT 20 (4-34) U/L Alkaline Phosphatase 62 (38-126) U/L Total Protein 7.0 (6.3-8.2) g/dL Albumin 4.4 (3.5-5.0) g/dL Lipase 302 H (23-300) U/L Serum Alcohol 292 H* mg/dL - Radiology Data Radiology results: report reviewed (Chest x-ray is negative for acute disease), image reviewed Disposition Clinical Impression: Alcohol intoxication, Alcohol withdrawal, Weakness Disposition: HOME SELF-CARE Condition: Fair Instructions (If sedation given, give patient instructions): Alcohol Intoxication (ED) Is patient prescribed a controlled substance at d/c from ED?: No Referrals: None,Stated [Primary Care Provider] - 1-2 days Time of Disposition: 01:00
[2024-09-17] MEDS: SODIUM CHLORIDE 0.9% 1,000 ML IV STA (23:05)
[2024-09-17 23:22] LABS: Basophils % (A) 1 %; Eosinophils # (A) 0.1 k/uL (0-0.7); Eosinophils % (A) 2 %; HCT 44.3 % (34.0-46.0); HGB 14.5 gm/dL (11.4-16.0); Lymphocytes # (A) 2.7 k/uL (1.0-4.8); Lymphocytes % (A) 50 %; MCH 32.5 pg (25.0-35.0); MCHC 32.8 g/dL (31.0-37.0); Macrocytosis Slight; Mean Platelet Volume 7.3; Monocytes # (A) 0.5 k/uL (0-1.0); Monocytes % (A) 10 %; Neutrophils # (A) 1.9 k/uL (1.3-7.7); Neutrophils % (A) 36 %; Platelet Count 290 k/uL (150-450); RBC 4.47 m/uL (3.80-5.40); RDW 14.9 % (11.5-15.5); WBC 5.4 k/uL (3.8-10.6)
[2024-09-17 23:24] LABS: ALT 20 U/L (4-34); AST 33 U/L (14-36); African American GFR (CKD) >90 (>60 ml/min/1.73 sqM); Albumin 4.4 g/dL (3.5-5.0); Alkaline Phosphatase 62 U/L (38-126); Anion Gap 11 mmol/L; Blood Urea Nitrogen 4 mg/dL (7-17); Calcium 9.3 mg/dL (8.4-10.2); Carbon Dioxide 25 mmol/L (22-30); Chloride 105 mmol/L (98-107); Glucose 89 mg/dL (74-99); Lipase 302 U/L (23-300); Non-African American GFR(CKD) >90 (>60 ml/min/1.73 sqM); Phosphorus 4.7 mg/dL (2.5-4.5); Sodium 141 mmol/L (137-145); Total Bilirubin 0.5 mg/dL (0.2-1.3)
[2024-09-17 23:29] LABS: Alcohol 292 mg/dL
--- NOTE | 2024-09-18 01:24 | XR ---
EXAM: XR Chest, 1 View CLINICAL HISTORY: ITS.REASON XR Reason: ams TECHNIQUE: Frontal view of the chest. COMPARISON: No relevant prior studies available. FINDINGS: Lungs: No consolidation or mass. Pleural space: No acute findings. Heart: Mild cardiomegaly. Bones/joints: No acute findings. IMPRESSION: No acute cardiopulmonary process.
[2024-09-18] MEDS: ACETAMINOPHEN TAB 325 MG TAB PO STA (02:02)
[2024-09-18 06:48] VITALS: BP 126/92; PULSE 78
== END 2024-09-18 06:48 | disposition home or self-care (01) ==
LOC: EC 22:23
DX: R53.1 Weakness (principal); F10.129 Alcohol abuse with intoxication, unspecified; F10.139 Alcohol abuse with withdrawal, unspecified; F17.200 Nicotine dependence, unspecified, uncomplicated; Z88.0 Allergy status to penicillin; Z88.6 Allergy status to analgesic agent; Z88.8 Allergy status to other drugs, medicaments and biological substances; Y90.8 Blood alcohol level of 240 mg/100 ml or more
CPT/HCPCS: 36415; 80053; 83690; 83735; 84100; 85025; 71045; 99284; 96360; 96361; G0480; 80320

== ENCOUNTER 2024-09-25 01:37 | Emergency (ER) | payer OTHER ==
[2024-09-25 01:44] VITALS: RESP 18; TEMP 97.7
--- NOTE | 2024-09-25 02:02 | ED ---
Chest Pain HPI - General Chief Complaint: Chest Pain Stated Complaint: ETOH Time Seen by Provider: 09/25/24 01:52 Source: EMS, RN notes reviewed, old records reviewed Mode of arrival: EMS Limitations: no limitations - History of Present Illness Initial Comments: This is a 58-year-old female to the ER for evaluation of chest pain and alcohol intoxication presenting by EMS. She is aWell-known patient to this emergency department patient has no significant new complaints here in the ER and is severely intoxicated MD Complaint: chest pain -: days(s) Onset: during rest, during exertion Pain Location: substernal, left chest Pain Radiation: LUE Severity: mild Severity scale (1-10): 5 Quality: sharp Consistency: constant Improves With: nothing Anginal Symptoms: dyspnea Treatments Prior to Arrival: none - Related Data Previous Rx's Medication Instructions Recorded Aspirin 81 mg PO DAILY 90 Days #90 tab 09/16/24 Atorvastatin [Lipitor] 40 mg PO DAILY 90 Days #90 tab 09/16/24 Folic Acid 1 mg PO DAILY 90 Days #90 tab 09/16/24 Losartan [Cozaar] 25 mg PO DAILY 90 Days #90 tab 09/16/24 Multivitamins, Thera [Multivitamin 1 each PO DAILY 90 Days #90 tab 09/16/24 (formulary)] Thiamine [Vitamin B-1] 100 mg PO DAILY 90 Days #90 tab 09/16/24 carvediloL [Coreg] 3.125 mg PO BID-W/MEALS 90 Days 09/16/24 #180 tab levETIRAcetam [Keppra] 500 mg PO Q12HR 90 Days #180 tab 09/16/24 Allergies Allergy/AdvReac Type Severity Reaction Status Date / Time Penicillins Allergy Rash/Hives/Swelling Verified 09/25/24 01:44 all over body NSAIDS (Non-Steroidal AdvReac Unknown upset Verified 09/25/24 01:44 Anti-Inflamma stomach sertraline HCl [From Zoloft] AdvReac Suicidal/Ag Verified 09/25/24 01:44 ression Review of Systems ROS Statement: Those systems with pertinent positive or pertinent negative responses have been documented in the HPI. ROS Other: All systems not noted in ROS Statement are negative. Past Medical History Past Medical History: Cancer, COPD, Hypertension, Liver Disease, Myocardial Infarction ([place]), Seizure Disorder, Vascular Disorder Additional Past Medical History / Comment(s): constpation, feeling bloated,feeling of fullness, and abdominal pain, feels hungry then over eats th en vomits to feel better, LAST SEIZURE - JANUARY 2021, "broken heart syndrome"., elevated liver enzymes, "dislocated disks", hx cervical cancer Last Myocardial Infarction Date:: 2019 History of Any Multi-Drug Resistant Organisms: None Reported Past Surgical History: Section, Heart Catheterization, Tubal Ligation Additional Past Surgical History / Comment(s): ORIF rt ankle/hardware later removed, exploratory lap, PAIN CLINIC PROCEDURE, BILAT CATARACTS REMOVED WITH LENS IMPLANTS, procedure to open a vein in left leg-couldn't confirm which leg, partial amputation rt hand middle finger, "procedure to remove cervical cancer" Past Anesthesia/Blood Transfusion Reactions: No Reported Reaction Past Psychological History: Anxiety, Bipolar, Depression, PTSD Smoking Status: Current every day smoker Past Alcohol Use History: Abuse, Daily, Heavy Past Drug Use History: Marijuana - Past Family History Father Family Medical History: Cancer, Prostate Disorder, Pulmonary Embolus Sister(s) Family Medical History: Cancer Brother(s) Family Medical History: Cancer Additional Family Medical History / Comment(s): colon and bladder General Exam Limitations: no limitations General appearance: appears intoxicated Head exam: Present: atraumatic, normocephalic, normal inspection Eye exam: Present: normal appearance, PERRL, EOMI. Absent: scleral icterus, conjunctival injection, periorbital swelling ENT exam: Present: normal exam, mucous membranes moist Neck exam: Present: normal inspection. Absent: tenderness, meningismus, lymphadenopathy Respiratory exam: Present: normal lung sounds bilaterally. Absent: respiratory distress, wheezes, rales, rhonchi, stridor Cardiovascular Exam: Present: regular rate, normal rhythm, normal heart sounds. Absent: systolic murmur, diastolic murmur, rubs, gallop, clicks GI/Abdominal exam: Present: soft, normal bowel sounds. Absent: distended, tenderness, guarding, rebound, rigid Extremities exam: Present: normal inspection, full ROM, normal capillary refill. Absent: tenderness, pedal edema, joint swelling, calf tenderness Back exam: Present: normal inspection Neurological exam: Present: alert, oriented X3, CN II-XII intact Psychiatric exam: Present: normal affect, normal mood Skin exam: Present: warm, dry, intact, normal color. Absent: rash Course Vital Signs 09/25/24 09/25/24 09/25/24 01:40 01:45 02:44 Temperature 97.7 F Pulse Rate 70 63 Pulse Rate [ 75 Right Supine Radial] Respiratory 18 18 Rate Blood Pressure 166/125 133/87 O2 Sat by Pulse 99 99 Oximetry - Reevaluation(s) Reevaluation #1: 09/25/24 03:02 Medical records reviewed Reevaluation #2: 09/25/24 03:02 Patient is in no acute distress Reevaluation #3: 09/25/24 03:02 Patient seen and results and questions answered Reevaluation #5: Differential Chest Pain: Stable Angina, Unstable Angina, STEMI, NSTEMI Aortic Dissection, Pneumothorax, Musculoskeletal, Esophageal Spasm GERD, Cholecystitis, Pancreatitis, Zoster, this is not meant to be an all-inclusive list. Chest Pain MDM - MDM 58 female chest pain evaluation normal EKG normal x-ray patient is intoxicated but will be discharged home Disposition Clinical Impression: Chest pain, Alcohol intoxication Disposition: HOME SELF-CARE Condition: Fair Instructions (If sedation given, give patient instructions): Chest Pain (ED) Is patient prescribed a controlled substance at d/c from ED?: No Referrals: Henny Angel MD [Primary Care Provider] - 1-2 days Time of Disposition: 03:00
--- NOTE | 2024-09-25 02:59 | XR ---
EXAM: XR Chest, 1 View CLINICAL HISTORY: ITS.REASON XR Reason: cp TECHNIQUE: Frontal view of the chest. COMPARISON: No relevant prior studies available. FINDINGS: Lungs: Unremarkable. No consolidation. Pleural space: Unremarkable. No pneumothorax. Heart: Unremarkable. No cardiomegaly. Mediastinum: Unremarkable. Bones/joints: Unremarkable. IMPRESSION: Normal chest x-ray.
[2024-09-25 06:05] VITALS: BP 133/87; PULSE 63
== END 2024-09-25 02:56 | disposition home or self-care (01) ==
LOC: EC 01:37
DX: R07.9 Chest pain, unspecified (principal); F10.129 Alcohol abuse with intoxication, unspecified; F17.200 Nicotine dependence, unspecified, uncomplicated; Z88.0 Allergy status to penicillin; Z88.6 Allergy status to analgesic agent; Z88.8 Allergy status to other drugs, medicaments and biological substances; Y90.9 Presence of alcohol in blood, level not specified
CPT/HCPCS: 71045; 99285

== ENCOUNTER 2024-09-29 18:49 | Emergency (ER) | payer OTHER ==
[2024-09-29 18:57] VITALS: TEMP 98.5
--- NOTE | 2024-09-29 19:11 | ED ---
General Adult HPI - General Chief complaint: Chest Pain Stated complaint: chest pain Time Seen by Provider: 09/29/24 18:55 Source: patient, EMS Mode of arrival: EMS Limitations: no limitations - History of Present Illness Initial comments: Dictation was produced using [employer] dictation software. please excuse any grammatical, word or spelling errors. Chief Complaint: 58-year-old female known to our emergency department presents for chest pain History of Present Illness: Patient is a 58-year-old female she is well-known to emergency department for multiple visitations for alcohol intoxication and chest pain. Patient states she is here for chest pain brought in by EMS. Patient admits to drinking large amounts of alcohol today. The ROS documented in this emergency department record has been reviewed and confirmed by me. Those systems with pertinent positive or negative responses have been documented in the HPI. All other systems are other negative and/or noncontributory. - Related Data Previous Rx's Medication Instructions Recorded Aspirin 81 mg PO DAILY 90 Days #90 tab 09/16/24 Atorvastatin [Lipitor] 40 mg PO DAILY 90 Days #90 tab 09/16/24 Folic Acid 1 mg PO DAILY 90 Days #90 tab 09/16/24 Losartan [Cozaar] 25 mg PO DAILY 90 Days #90 tab 09/16/24 Multivitamins, Thera [Multivitamin 1 each PO DAILY 90 Days #90 tab 09/16/24 (formulary)] Thiamine [Vitamin B-1] 100 mg PO DAILY 90 Days #90 tab 09/16/24 carvediloL [Coreg] 3.125 mg PO BID-W/MEALS 90 Days 09/16/24 #180 tab levETIRAcetam [Keppra] 500 mg PO Q12HR 90 Days #180 tab 09/16/24 Allergies Allergy/AdvReac Type Severity Reaction Status Date / Time Penicillins Allergy Rash/Hives/Swelling Verified 09/25/24 01:44 all over body NSAIDS (Non-Steroidal AdvReac Unknown upset Verified 09/25/24 01:44 Anti-Inflamma stomach sertraline HCl [From Zoloft] AdvReac Suicidal/Ag Verified 09/25/24 01:44 ression Review of Systems ROS Statement: Those systems with pertinent positive or pertinent negative responses have been documented in the HPI. ROS Other: All systems not noted in ROS Statement are negative. Past Medical History Past Medical History: Cancer, COPD, Hypertension, Liver Disease, Myocardial Infarction (AR), Seizure Disorder, Vascular Disorder Additional Past Medical History / Comment(s): constpation, feeling bloated,feeling of fullness, and abdominal pain, feels hungry then over eats then vomits to feel better, LAST SEIZURE - JANUARY 2021, "broken heart syndrome"., elevated liver enzymes, "dislocated disks", hx cervical cancer Last Myocardial Infarction Date:: 2019 History of Any Multi-Drug Resistant Organisms: None Reported Past Surgical History: Section, Heart Catheterization, Tubal Ligation Additional Past Surgical History / Comment(s): ORIF rt ankle/hardware later removed, exploratory lap, PAIN CLINIC PROCEDURE, BILAT CATARACTS REMOVED WITH LENS IMPLANTS, procedure to open a vein in left leg-couldn't confirm which leg, partial amputation rt hand middle finger, "procedure to remove cervical cancer" Past Anesthesia/Blood Transfusion Reactions: No Reported Reaction Past Psychological History: Anxiety, Bipolar, Depression, PTSD Smoking Status: Current every day smoker Past Alcohol Use History: Abuse, Daily, Heavy Past Drug Use History: Marijuana - Past Family History Father Family Medical History: Cancer, Prostate Disorder, Pulmonary Embolus Sister(s) Family Medical History: Cancer Brother(s) Family Medical History: Cancer Additional Family Medical History / Comment(s): colon and bladder General Exam - General Exam Comments Initial Comments: PHYSICAL EXAM: General Impression: Alert and oriented x3, inebriated HEENT: Normocephalic atraumatic, extra-ocular movements intact, pupils equal and reactive to light bilaterally, mucous membranes moist. Cardiovascular: Heart regular rate and rhythm Chest: Able to complete full sentences, no retractions, no tachypnea Abdomen: abdomen soft, non-tender, non-distended, no organomegaly Musculoskeletal: Pulses present and equal in all extremities, no peripheral edema Motor: no focal deficits noted Neurological: CN II-XII grossly intact, no focal motor or sensory deficits noted Skin: Intact with no visualized rashes Psych: Normal affect and mood Limitations: no limitations Course Vital Signs 09/29/24 18:51 Temperature 98.5 F Pulse Rate 77 Respiratory 16 Rate Blood Pressure 139/84 O2 Sat by Pulse 95 Oximetry EKG Findings - EKG Comments: EKG Findings:: My EKG interpretation: Ventricular rate 78, sinus rhythm,. 166, QRS 82, QTc 407. No [place] prolongation, no QTC prolongation, no ST or T-wave changes noted. Overall, this EKG is unremarkable Medical Decision Making - Medical Decision Making Was pt. sent in by a medical professional or institution (BENI Dill, JOURNEYMAN PRESS OPERATOR, urgent care, hospital, or halfway...) When possible be specific @ -No Did you speak to anyone other than the patient for history (EMS, parent, family, police, friend...)? What history was obtained from this source @ -No Did you review nursing and triage notes (agree or disagree)? Why? @ -I reviewed and agree with nursing and triage notes Were old charts reviewed (outside hosp., previous admission, EMS record, old EKG, old radiological studies, urgent care reports/EKG's, halfway records)? Report findings @ -No old charts were reviewed Differential Diagnosis (chest pain, altered mental status, abdominal pain women, abdominal pain men, vaginal bleeding, musculoskeletal, weakness, fever, dyspnea, syncope, headache, dizziness, GI bleed, back pain, seizure, CVA, palpatations, mental health)? @ -Differential Chest Pain: Stable Angina, Unstable Angina, STEMI, NSTEMI Aortic Dissection, Pneumothorax, Musculoskeletal, Esophageal Spasm GERD, Cholecystitis, Pancreatitis, Zoster, this is not meant to be an all-inclusive list. EKG interpreted by me (3pts min.). @ -See above X-rays interpreted by me (1pt min.). @ -Chest x-ray shows no acute processes CT interpreted by me (1pt min.). @ -None done U/S interpreted by me (1pt. min.). @ -None done What testing was considered but not performed or refused? (CT, X-rays, U/S, labs)? Why? @ -None What meds were considered but not given or refused? Why? @ -None Was smoking cessation discussed for >3mins.? @ -No Were there social determinants of health that impacted care today? How? (Homelessness, low income, unemployed, alcoholism, drug addiction, transportation, low edu. Level, literacy, decrease access to med. care, fpc, rehab)? @ -No Was there de-escalation of care discussed even if they declined (Discuss DNR or withdrawal of care, Hospice)? DNR status @ -No What co-morbidities impacted this encounter? (DM, HTN, Smoking, COPD, CAD, Cancer, CVA, ARF, Chemo, Hep., AIDS, mental health diagnosis, sleep apnea, m orbid obesity)? @ -None Was patient admitted / discharged? Hospital course, mention meds given and route, prescriptions, significant lab abnormalities, going to OR and other pertinent info. @ -58-year-old alcoholic female presents to the emergency department yet again for chest pain and alcohol intoxication. Patient labored at the bedside. Vital signs stable. Patient appears to be at baseline. Laboratory evaluation is unremarkable. Patient monitored in the emergency department for sobriety. 8:52 PM patient clinically sober. Discharge advised follow-up with primary care doctor. Did you discuss the management of the patient with other professionals (professionals i.e. , PA, JOURNEYMAN PRESS OPERATOR, lab, RT, psych nurse, social work associate, straight ruling machine operator, teacher, juvenile probation officer, watch case polisher)? Give summary @ -No Was critical care preformed (if so, how long)? @ -No Undiagnosed new problem with uncertain prognosis? @ -No Drug Therapy requiring intensive monitoring for toxicity (Heparin, Nitro, Insulin, Cardizem)? @ -No Were any procedures done? @ -No Diagnosis/symptom? Acute, or Chronic, or Acute on Chronic? Uncomplicated (without systemic symptoms) or Complicated (systemic symptoms)? @ -Chest pain, alcohol intoxication Side effects of treatment? @ -No Exacerbation, Progression, or Severe Exacerbation? @ -No Poses a threat to life or bodily function? How? (Chest pain, USA, AR, pneumonia, PE, COPD, DKA, ARF, appy, cholecystitis, CVA, Diverticulitis, Homicidal, Suicidal, threat to staff... and all critical care pts) @ -No - Lab Data Result diagrams: 09/29/24 18:58 09/29/24 18:58 Lab Results 09/29/24 09/29/24 09/29/24 Range/Units 18:58 18:58 18:58 WBC 5.90 (4.50-10.00) 10*3/uL RBC 4.23 (4.10-5.20) 10*6/uL Hgb 14.2 (12.0-15.0) g/dL Hct 40.7 (37.2-46.3) % MCV 96.2 (80.0-97.0) fL MCH 33.6 H (27.0-32.0) pg MCHC 34.9 (32.0-37.0) g/dL Plt Count 221 (140-440) 10*3/uL MPV 8.8 L (9.5-12.2) fL Immature Gran % (Auto) 0.3 % Neutrophils % 38.7 % Lymphocytes % 45.9 % Monocytes % 13.2 % Eosinophils % 1.2 % Basophils % 0.7 % Immature Gran # 0.02 (0.00-0.04) 10*3/uL Neutrophils # 2.28 (1.80-7.70) 10*3/uL Lymphocytes # 2.71 (0.90-5.00) 10*3/uL Monocytes # 0.78 (0.20-1.00) 10*3/uL Eosinophils # 0.07 (0.04-0.35) 10*3/uL Basophils # 0.04 (0.00-0.10) 10*3/uL Sodium 137 (137-145) mmol/L Potassium 4.3 (3.5-5.1) mmol/L Chloride 104 (98-107) mmol/L Carbon Dioxide 21 L (22-30) mmol/L Anion Gap 12 mmol/L BUN 4 L (7-17) mg/dL Creatinine 0.41 L (0.52-1.04) mg/dL Est GFR (CKD-EPI)AfAm >90 (>60 ml/min/1.73 sqM) Est GFR (CKD-EPI)NonAf >90 (>60 ml/min/1.73 sqM) Glucose 96 (74-99) mg/dL Calcium 9.2 (8.4-10.2) mg/dL Troponin I <0.012 (0.000-0.034) ng/mL Disposition Clinical Impression: Chest pain Disposition: HOME SELF-CARE Condition: Good Instructions (If sedation given, give patient instructions): Chest Pain (ED) Is patient prescribed a controlled substance at d/c from ED?: No Referrals: Henny Angel MD [STAFF PHYSICIAN] - 1-2 days Time of Disposition: 20:52
[2024-09-29 19:19] LABS: Basophils # (A) 0.04 10*3/uL (0.00-0.10); Basophils % (A) 0.7 %; Eosinophils # (A) 0.07 10*3/uL (0.04-0.35); Eosinophils % (A) 1.2 %; HCT 40.7 % (37.2-46.3); HGB 14.2 g/dL (12.0-15.0); Lymphocytes # (A) 2.71 10*3/uL (0.90-5.00); Lymphocytes % (A) 45.9 %; MCH 33.6 pg (27.0-32.0); MCHC 34.9 g/dL (32.0-37.0); MCV 96.2 fL (80.0-97.0); Mean Platelet Volume 8.8 fL (9.5-12.2); Monocytes # (A) 0.78 10*3/uL (0.20-1.00); Monocytes % (A) 13.2 %; Neutrophils # (A) 2.28 10*3/uL (1.80-7.70); Neutrophils % (A) 38.7 %; Platelet Count 221 10*3/uL (140-440); RBC 4.23 10*6/uL (4.10-5.20); RDW 14.4 % (11.5-14.5)
[2024-09-29 19:29] LABS: African American GFR (CKD) >90 (>60 ml/min/1.73 sqM); Anion Gap 12 mmol/L; Blood Urea Nitrogen 4 mg/dL (7-17); Calcium 9.2 mg/dL (8.4-10.2); Carbon Dioxide 21 mmol/L (22-30); Chloride 104 mmol/L (98-107); Glucose 96 mg/dL (74-99); Non-African American GFR(CKD) >90 (>60 ml/min/1.73 sqM); Potassium 4.3 mmol/L (3.5-5.1); Sodium 137 mmol/L (137-145)
--- NOTE | 2024-09-29 20:45 | XR ---
EXAMINATION TYPE: XR chest 1V portable DATE OF EXAM: 09/29/2024 COMPARISON: 09/25/2024 CLINICAL INDICATION: Female, 58 years old with history of chest pain; TECHNIQUE: Single frontal view of the chest is obtained. FINDINGS: There is no focal air space opacity, pleural effusion, or pneumothorax seen. The cardiac silhouette size is within normal limits. The osseous structures are intact. IMPRESSION: No acute process. [facility], , 09/29/2024 8:43 PM
[2024-09-29 21:02] VITALS: BP 113/74; PULSE 74; RESP 18
== END 2024-09-29 21:08 | disposition home or self-care (01) ==
LOC: EC 18:49
DX: R07.9 Chest pain, unspecified (principal); F10.129 Alcohol abuse with intoxication, unspecified; F17.200 Nicotine dependence, unspecified, uncomplicated; Z88.0 Allergy status to penicillin; Z88.6 Allergy status to analgesic agent; Y90.9 Presence of alcohol in blood, level not specified
CPT/HCPCS: 36415; 71045; 80048; 84484; 85025; 93005; 99285

== ENCOUNTER 2024-09-30 15:45 | Emergency (ER) | payer OTHER ==
--- NOTE | 2024-09-30 15:58 | ED ---
Chest Pain HPI - General Stated Complaint: SOB, Chest Pain Time Seen by Provider: 09/30/24 15:46 Source: RN notes reviewed, old records reviewed Mode of arrival: ambulatory Limitations: no limitations - History of Present Illness Initial Comments: This is a 58-year-old female to the ER for evaluation patient presents today for evaluation regards to weakness shortness of breath chest pain possible seizure. Patient states she has been unable to take her normal seizure medications. Patient states boyfriend called the hospitalist because she was very weak on her feet having difficulty ambulating and acting inappropriately. Patient here in the ER just complains of anxiety MD Complaint: chest pain, other (Anxiety weakness) -: hour(s) Onset: during rest, during exertion Pain Radiation: none Consistency: intermittent Improves With: nothing Worsens With: exertion Anginal Symptoms: nausea, dyspnea Other Symptoms: palpitations Treatments Prior to Arrival: none - Related Data Previous Rx's Medication Instructions Recorded Aspirin 81 mg PO DAILY 90 Days #90 tab 09/16/24 Atorvastatin [Lipitor] 40 mg PO DAILY 90 Days #90 tab 09/16/24 Folic Acid 1 mg PO DAILY 90 Days #90 tab 09/16/24 Losartan [Cozaar] 25 mg PO DAILY 90 Days #90 tab 09/16/24 Multivitamins, Thera [Multivitamin 1 each PO DAILY 90 Days #90 tab 09/16/24 (formulary)] Thiamine [Vitamin B-1] 100 mg PO DAILY 90 Days #90 tab 09/16/24 carvediloL [Coreg] 3.125 mg PO BID-W/MEALS 90 Days 09/16/24 #180 tab levETIRAcetam [Keppra] 500 mg PO Q12HR 90 Days #180 tab 09/16/24 Allergies Allergy/AdvReac Type Severity Reaction Status Date / Time Penicillins Allergy Rash/Hives/Swelling Verified 09/30/24 15:59 all over body NSAIDS (Non-Steroidal AdvReac Unknown upset Verified 09/30/24 15:59 Anti-Inflamma stomach sertraline HCl [From Zoloft] AdvReac Suicidal/Ag Verified 09/30/24 15:59 ression Review of Systems ROS Statement: Those systems with pertinent positive or pertinent negative responses have been documented in the HPI. ROS Other: All systems not noted in ROS Statement are negative. EKG Findings - EKG Comments: EKG Findings:: EKG is sinus 70 MO 177 QRS 86 QTc 410 - EKG Results: EKG: interpreted by DEDRICK Past Medical History Past Medical History: Cancer, COPD, Hypertension, Liver Disease, Myocardial Infarction (GA), Seizure Disorder, Vascular Disorder Additional Past Medical History / Comment(s): constpation, feeling bloated,feeling of fullness, and abdominal pain, feels hungry then over eats then vomits to feel better, LAST SEIZURE - JANUARY 2021, "broken heart syndrome"., elevated liver enzymes, "dislocated disks", hx cervical cancer Last Myocardial Infarction Date:: 2019 History of Any Multi-Drug Resistant Organisms: None Reported Past Surgical History: Section, Heart Catheterization, Tubal Ligation Additional Past Surgical History / Comment(s): ORIF rt ankle/hardware later removed, exploratory lap, PAIN CLINIC PROCEDURE, BILAT CATARACTS REMOVED WITH LENS IMPLANTS, procedure to open a vein in left leg-couldn't confirm which leg, partial amputation rt hand middle finger, "procedure to remove cervical cancer" Past Anesthesia/Blood Transfusion Reactions: No Reported Reaction Past Psychological History: Anxiety, Bipolar, Depression, PTSD Smoking Status: Current every day smoker Past Alcohol Use History: Abuse, Daily, Heavy Past Drug Use History: Marijuana - Past Family History Father Family Medical History: Cancer, Prostate Disorder, Pulmonary Embolus Sister(s) Family Medical History: Cancer Brother(s) Family Medical History: Cancer Additional Family Medical History / Comment(s): colon and bladder General Exam Limitations: altered mental status, physical limitation General appearance: alert, appears intoxicated Head exam: Present: atraumatic, normocephalic, normal inspection Eye exam: Present: normal appearance, PERRL, EOMI. Absent: scleral icterus, conjunctival injection, periorbital swelling ENT exam: Present: normal exam, mucous membranes moist Neck exam: Present: normal inspection. Absent: tenderness, meningismus, lymphadenopathy Respiratory exam: Present: normal lung sounds bilaterally. Absent: respiratory distress, wheezes, rales, rhonchi, stridor Cardiovascular Exam: Present: regular rate, normal rhythm, normal heart sounds. Absent: systolic murmur, diastolic murmur, rubs, gallop, clicks GI/Abdominal exam: Present: soft, normal bowel sounds. Absent: distended, tenderness, guarding, rebound, rigid Extremities exam: Present: normal inspection, full ROM, normal capillary refill. Absent: tenderness, pedal edema, joint swelling, calf tenderness Back exam: Present: normal inspection Neurological exam: Present: alert, oriented X3, CN II-XII intact Psychiatric exam: Present: normal affect, normal mood Skin exam: Present: warm, dry, intact, normal color. Absent: rash Course Vital Signs 09/30/24 09/30/24 09/30/24 15:46 16:37 16:48 Temperature 98.3 F Pulse Rate 75 75 69 Respiratory 40 H Rate Blood Pressure 137/91 O2 Sat by Pulse 97 Oximetry 09/30/24 16:57 Temperature Pulse Rate 82 Respiratory 24 Rate Blood Pressure 125/83 O2 Sat by Pulse 96 Oximetry - Reevaluation(s) Reevaluation #1: 09/30/24 17:36 Medical records reviewed Persistent ER visit for similar complaints Reevaluation #2: 09/30/24 17:36 Patient informed of results questions answered No seizure-like activity here in the ER Reevaluation #3: 09/30/24 17:36 Patient informed of results questions answered Reevaluation #4: Was pt. sent in by a medical professional or institution (, PA, TRANSFORMATION LEAD, urgent care, hospital, or jail...) When possible be specific @ -no Did you speak to anyone other than the patient for history (EMS, parent, family, police, friend...)? What history was obtained from this source @ -no Did you review nursing and triage notes (agree or disagree)? Why? @ -agree Are old charts reviewed (outside hosp., previous admission, EMS record, old EKG, old radiological studies, urgent care reports/EKG's, jail records)? Report findings @ -yes Differential Diagnosis (chest pain, altered mental status, abdominal pain women, abdominal pain men, vaginal bleeding, weakness, fever, dyspnea, syncope, headache, dizziness, GI bleed, back pain, seizure, CVA, palpatations, mental health, musculoskeletal)? @ -prior EKG interpreted by me (3pts min.). @ -yes X-rays interpreted by me (1pt min.). @ -yes negative for acute disease CT interpreted by me (1pt min.). @ -no U/S interpreted by me (1pt. min.). @ -no What testing was considered but not performed or refused? (CT, X-rays, U/S, labs)? Why? @ -none What meds were considered but not given or refused? Why? @ -none Did you discuss the management of the patient with other professionals (professionals i.e. , PA, TRANSFORMATION LEAD, lab, RT, psych nurse, social media designer, helicopter mechanic, teacher, chief information officer, porter sample case)? Give summary @ -no Was smoking cessation discussed for >3mins.? @ -no Was critical care preformed (if so, how long)? @ -no Were there social determinants of health that impacted care today? How? (Homele ssness, low income, unemployed, alcoholism, drug addiction, transportation, low edu. Level, literacy, decrease access to med. care, correction, rehab)? @ -none Was there de-escalation of care discussed even if they declined (Discuss DNR or withdrawal of care, Hospice)? DNR status @ -no What co-morbidities impacted this encounter? (DM, HTN, Smoking, COPD, CAD, Cancer, CVA, ARF, Chemo, Hep., AIDS, mental health diagnosis, sleep apnea, morbid obesity)? @ -none Was patient admitted / discharged? Hospital course, mention meds given and route, prescriptions, significant lab abnormalities, going to OR and other pertinent info. @ - Undiagnosed new problem with uncertain prognosis? @ -no Drug Therapy requiring intensive monitoring for toxicity (Heparin, Nitro, Insulin, Cardizem)? @ -no Were any procedures done? @ -no Diagnosis/symptom? @ - Acute, or Chronic, or Acute on Chronic? @ -Acute Uncomplicated (without systemic symptoms) or Complicated (systemic symptoms)? @ -Complicated Side effects of treatment? @ -no Exacerbation, Progression, or Severe Exacerbation? @ -exacerbation Poses a threat to life or bodily function? How? (Chest pain, USA, GA, pneumonia, PE, COPD, DKA, ARF, appy, cholecystitis, CVA, Diverticulitis, Homicidal, Suicidal, threat to staff... and all critical care pts) @ -yes Reevaluation #5: Differential Weakness: Hypoglycemia, shock, sepsis, hyponatremia, anemia, infection, GA, ETOH, adverse medicine reaction, overdose, stroke, this is not meant to be an all-inclusive list. Chest Pain MDM - MDM 58 female this patient will be discharged home presenting with significant alcohol intoxication, multiple ER visits this year and this month for similar. Prior inpatient hospital admission resulted in no improvement in outcome. Patient will be discharged home when capable Disposition Clinical Impression: Alcohol intoxication Disposition: HOME SELF-CARE Instructions (If sedation given, give patient instructions): Abuse of Alcohol (ED), Alcohol Use Disorder (ED) Is patient prescribed a controlled substance at d/c from ED?: No Referrals: None,Stated [Primary Care Provider] - 1-2 days Time of Disposition: 18:00
[2024-09-30 15:59] VITALS: TEMP 98.3
[2024-09-30] MEDS: IPRATROPIUM-ALBUTEROL 3 ML NEB INHALATION STA (16:37)
--- NOTE | 2024-09-30 16:40 | XR ---
EXAMINATION TYPE: XR chest 1V portable DATE OF EXAM: 09/30/2024 4:29 PM COMPARISON: Chest radiograph 09/29/2024. CLINICAL INDICATION: Female, 58 years old with history of cp; [facility] TECHNIQUE: XR chest 1V portable Frontal view of the chest. FINDINGS: Lungs/Pleura: There is no evidence of pleural effusion, focal consolidation, or pneumothorax. Pulmonary vascularity: Unremarkable. Heart/mediastinum: Cardiomediastinal silhouette is unremarkable. Musculoskeletal: No acute osseous pathology. Other findings: None IMPRESSION: No acute cardiopulmonary disease/process. [facility], , 09/30/2024 4:37 PM
[2024-09-30] MEDS: SODIUM CHLORIDE 0.9% 1,000 ML IV ONE (16:45)
[2024-09-30 16:46] LABS: Basophils # (A) 0.06 10*3/uL (0.00-0.10); Basophils % (A) 0.8 %; Eosinophils # (A) 0.03 10*3/uL (0.04-0.35); Eosinophils % (A) 0.4 %; HCT 39.6 % (37.2-46.3); HGB 14.3 g/dL (12.0-15.0); Lymphocytes # (A) 2.52 10*3/uL (0.90-5.00); Lymphocytes % (A) 33.3 %; MCH 34.5 pg (27.0-32.0); MCHC 36.1 g/dL (32.0-37.0); MCV 95.7 fL (80.0-97.0); Mean Platelet Volume 9.4 fL (9.5-12.2); Monocytes # (A) 0.95 10*3/uL (0.20-1.00); Monocytes % (A) 12.5 %; Neutrophils # (A) 3.99 10*3/uL (1.80-7.70); Neutrophils % (A) 52.7 %; Platelet Count 214 10*3/uL (140-440); RBC 4.14 10*6/uL (4.10-5.20); RDW 14.2 % (11.5-14.5); WBC 7.57 10*3/uL (4.50-10.00)
[2024-09-30] MEDS: ONDANSETRON 4 MG/2 ML VIAL IVP STA (16:46)
[2024-09-30] MEDS: levETIRAcetam IV 500 MG/5 ML VIAL IVP STA (16:49)
[2024-09-30] MEDS: SODIUM CHLORIDE 0.9% 1,000 ML IV SCH (16:56)
[2024-09-30 16:58] VITALS: RESP 24
[2024-09-30 17:03] LABS: ALT 21 U/L (4-34); AST 49 U/L (14-36); African American GFR (CKD) >90 (>60 ml/min/1.73 sqM); Albumin 4.6 g/dL (3.5-5.0); Alkaline Phosphatase 71 U/L (38-126); Anion Gap 13 mmol/L; Blood Urea Nitrogen 4 mg/dL (7-17); Calcium 9.4 mg/dL (8.4-10.2); Carbon Dioxide 22 mmol/L (22-30); Chloride 101 mmol/L (98-107); Glucose 84 mg/dL (74-99); Non-African American GFR(CKD) >90 (>60 ml/min/1.73 sqM); Potassium 4.2 mmol/L (3.5-5.1); Sodium 136 mmol/L (137-145); Total Bilirubin 0.5 mg/dL (0.2-1.3); Total Protein 7.2 g/dL (6.3-8.2)
[2024-09-30 17:10] LABS: NT-Pro-B-Type Natriuretic Pept 28 pg/mL
[2024-09-30 17:13] LABS: Alcohol 275 mg/dL
[2024-09-30 17:24] LABS: INR 0.9 (<1.2); Partial Thromboplastin Time 24.6 sec (22.0-30.0); Prothrombin Time 10.2 sec (10.0-12.5)
[2024-09-30 18:12] VITALS: BP 142/94; PULSE 85
== END 2024-09-30 18:10 | disposition home or self-care (01) ==
LOC: EC 15:45
DX: F10.129 Alcohol abuse with intoxication, unspecified (principal); F17.200 Nicotine dependence, unspecified, uncomplicated; Z88.0 Allergy status to penicillin; Z88.6 Allergy status to analgesic agent; Z88.8 Allergy status to other drugs, medicaments and biological substances; Y90.8 Blood alcohol level of 240 mg/100 ml or more
CPT/HCPCS: 36415; 94640; 93005; 83880; 80053; 82140; 83735; 84484; 85025; 85610; 85730; 71045; 99285; 96374; 96375; 96361; G0480; J2405; J1953; 80320

== ENCOUNTER 2024-10-04 15:26 | Observation (INO) | payer OTHER ==
[2024-10-04] MEDS: MORPHINE SULFATE 4 MG/ML SYRINGE IV STA (16:20)
[2024-10-04] MEDS: SODIUM CHLORIDE 0.9% 1,000 ML IV STA (16:21)
[2024-10-04 16:29] LABS: Basophils # (A) 0.03 10*3/uL (0.00-0.10); Basophils % (A) 0.7 %; Eosinophils # (A) 0.03 10*3/uL (0.04-0.35); Eosinophils % (A) 0.7 %; HCT 37.2 % (37.2-46.3); HGB 13.3 g/dL (12.0-15.0); Lymphocytes # (A) 1.97 10*3/uL (0.90-5.00); Lymphocytes % (A) 44.8 %; MCH 34.1 pg (27.0-32.0); MCHC 35.8 g/dL (32.0-37.0); MCV 95.4 fL (80.0-97.0); Mean Platelet Volume 9.3 fL (9.5-12.2); Monocytes # (A) 0.65 10*3/uL (0.20-1.00); Monocytes % (A) 14.8 %; Neutrophils # (A) 1.71 10*3/uL (1.80-7.70); Neutrophils % (A) 38.8 %; Platelet Count 186 10*3/uL (140-440); RDW 14.2 % (11.5-14.5)
[2024-10-04 16:33] LABS: Appearance,Urine Clear (Clear); Bilirubin,Urine Negative (Negative); Blood,Urine Negative (Negative); Color,Urine Colorless; Glucose,Urine (UA) Negative (Negative); Ketones,Urine Negative (Negative); Leukocyte Esterase,Urine Negative (Negative); Nitrite,Urine Negative (Negative); Protein,Urine Negative (Negative); Specific Gravity,Urine 1.003 (1.001-1.035); Urobilinogen,Urine <2.0 mg/dL (<2.0)
[2024-10-04 16:46] LABS: Prothrombin Time 10.7 sec (10.0-12.5)
[2024-10-04 16:48] LABS: ALT 10 U/L (4-34); AST 22 U/L (14-36); African American GFR (CKD) >90 (>60 ml/min/1.73 sqM); Albumin 2.6 g/dL (3.5-5.0); Alkaline Phosphatase 50 U/L (38-126); Anion Gap 8 mmol/L; Blood Urea Nitrogen 4 mg/dL (7-17); Carbon Dioxide 15 mmol/L (22-30); Chloride 114 mmol/L (98-107); Glucose 71 mg/dL (74-99); Magnesium 1.5 mg/dL (1.6-2.3); Non-African American GFR(CKD) >90 (>60 ml/min/1.73 sqM); Potassium 2.9 mmol/L (3.5-5.1); Sodium 137 mmol/L (137-145); Total Bilirubin 0.4 mg/dL (0.2-1.3); Total Protein 4.6 g/dL (6.3-8.2)
[2024-10-04 16:59] LABS: Alcohol 191 mg/dL; Calcium 6.4 mg/dL (8.4-10.2)
[2024-10-04] MEDS ORDERED: Potassium Replacement Protocol 1 EACH MISC MISCELLANE PRN (17:43)
[2024-10-04] MEDS ORDERED: LORazepam 2 MG/ML INJ IV PRN ×3 (17:44)
[2024-10-04] MEDS ORDERED: LORazepam 1 MG/0.5 ML VIAL IV PRN (17:44)
--- NOTE | 2024-10-04 17:48 | XR ---
EXAMINATION TYPE: XR chest 2V DATE OF EXAM: 10/04/2024 5:04 PM COMPARISON: Chest radiographs from 09/30/2024. CLINICAL INDICATION: Female, 58 years old with history of Chest Pain; [facility] TECHNIQUE: XR chest 2V Frontal and lateral views of the chest. FINDINGS: Lungs/Pleura: There is no evidence of pleural effusion, focal consolidation, or pneumothorax. Pulmonary vascularity: Unremarkable. Heart/mediastinum: Cardiomediastinal silhouette is unremarkable. Musculoskeletal: No acute osseous pathology. Other findings: None IMPRESSION: No acute cardiopulmonary disease/process. [facility], , 10/04/2024 5:45 PM
[2024-10-04] MEDS ORDERED: ONDANSETRON 4 MG/2 ML VIAL IVP PRN (17:59)
[2024-10-04] MEDS ORDERED: NALOXONE 0.4 MG/ML 1 ML VIAL IV PRN (17:59)
[2024-10-04] MEDS ORDERED: ACETAMINOPHEN TAB 325 MG TAB PO PRN (17:59)
--- NOTE | 2024-10-04 18:03 | ED ---
General Adult HPI - General Chief complaint: Chest Pain Stated complaint: ETOH Time Seen by Provider: 10/04/24 15:57 Source: patient, RN notes reviewed, old records reviewed Mode of arrival: ambulatory Limitations: no limitations - History of Present Illness Initial comments: Patient is a 58-year-old female who presents emergency department complaining of chronic pain. States she has generalized body pain and is asking for IV pain medications. Also states she has chest pain. Also states she was drinking alcohol. Patient is frequently in our emergency department for similar complaints. She has no other acute complaints. States she takes Percocet at home. States the pain started sometime in the last couple days. Denies any abdominal pain, nausea, vomiting. Denies any diarrhea. Presents for further evaluation at this time.Patient apparently does have a history of seizures, hypertension, Takotsubo cardiomyopathy. - Related Data Previous Rx's Medication Instructions Recorded Aspirin 81 mg PO DAILY 90 Days #90 tab 09/16/24 levETIRAcetam [Keppra] 500 mg PO Q12HR 90 Days #180 tab 09/30/24 Allergies Allergy/AdvReac Type Severity Reaction Status Date / Time Penicillins Allergy Rash/Hives/Swelling Verified 10/04/24 17:57 all over body NSAIDS (Non-Steroidal AdvReac Unknown upset Verified 10/04/24 17:57 Anti-Inflamma stomach sertraline HCl [From Zoloft] AdvReac Suicidal/Ag Verified 10/04/24 17:57 ression Review of Systems ROS Statement: Those systems with pertinent positive or pertinent negative responses have been documented in the HPI. Review of Systems: CONST: Denies fever EYES: Denies blurry vision ENT: Denies nasal congestion C/V: Endorses chest pain RESP: Denies shortness of breath GI: Denies abdominal pain : Denies dysuria SKIN: Denies rash. MSK: Endorses body pain NEURO: Denies headache ROS Other: All systems not noted in ROS Statement are negative. Past Medical History Past Medical History: Cancer, COPD, Hypertension, Liver Disease, Myocardial In farction ([place]), Seizure Disorder, Vascular Disorder Additional Past Medical History / Comment(s): constpation, feeling bloated,feeling of fullness, and abdominal pain, feels hungry then over eats then vomits to feel better, LAST SEIZURE - JANUARY 2021, "broken heart syndrome". , elevated liver enzymes, "dislocated disks", hx cervical cancer Last Myocardial Infarction Date:: 2019 History of Any Multi-Drug Resistant Organisms: None Reported Past Surgical History: Section, Heart Catheterization, Tubal Ligation Additional Past Surgical History / Comment(s): ORIF rt ankle/hardware later removed, exploratory lap, PAIN CLINIC PROCEDURE, BILAT CATARACTS REMOVED WITH LE NS IMPLANTS, procedure to open a vein in left leg-couldn't confirm which leg, partial amputation rt hand middle finger, "procedure to remove cervical cancer" Past Anesthesia/Blood Transfusion Reactions: No Reported Reaction Past Psychological History: Anxiety, Bipolar, Depression, PTSD Smoking Status: Current every day smoker Past Alcohol Use History: Abuse, Daily, Heavy Past Drug Use History: Marijuana - Past Family History Father Family Medical History: Cancer, Prostate Disorder, Pulmonary Embolus Sister(s) Family Medical History: Cancer Brother(s) Family Medical History: Cancer Additional Family Medical History / Comment(s): colon and bladder General Exam - General Exam Comments Initial Comments: General: Appears in no acute distress. Appears intoxicated with alcohol. HEAD: Normal with no signs of head trauma. EYES: PERRLA, EOMI, conjunctiva normal, no discharge. ENT: Hearing grossly intact, normal oropharynx. RESPIRATORY: Clear breath sounds bilaterally. No wheezes, rales, or rhonchi. C/V: Regular rate and rhythm. S1 and S2 auscultated, no edema, peripheral pulses 2+ and intact throughout ABD: Abd is soft, nontender, nondistended EXT: Normal range of motion, no obvious deformity SKIN: No rashes or lesions observed on exposed skin. NEURO: Alert and oriented x 4. No focal deficits. No evidence of alcohol drawl at this time. Limitations: no limitations Course Vital Signs 10/04/24 15:28 Temperature 98 F Pulse Rate 72 Respiratory 18 Rate Blood Pressure 115/82 O2 Sat by Pulse 95 Oximetry Medical Decision Making - Medical Decision Making Was pt. sent in by a medical professional or institution (, PA, TOWER WATCHMAN, urgent care, hospital, or jail...) When possible be specific @ -No Did you speak to anyone other than the patient for history (EMS, parent, family, police, friend...)? What history was obtained from this source @ -No Did you review nursing and triage notes (agree or disagree)? Why? @ -I reviewed and agree with nursing and triage notes Were old charts reviewed (outside hosp., previous admission, EMS record, old EKG, old radiological studies, urgent care reports/EKG's, jail records)? Report findings @ -Today's EKG compared with EKG from September 08, 2024 with no significant change. Differential Diagnosis (chest pain, altered mental status, abdominal pain women, abdominal pain men, vaginal bleeding, weakness, fever, dyspnea, syncope, headache, dizziness, GI bleed, back pain, seizure, CVA, palpatations, mental health, musculoskeletal)? @ -Differential Chest Pain: Stable Angina, Unstable Angina, STEMI, NSTEMI Aortic Dissection, Pneumothorax, Musculoskeletal, Esophageal Spasm GERD, Cholecystitis, Pancreatitis, Zoster, this is not meant to be an all-inclusive list. EKG interpreted by me (3pts min.). @ -As above X-rays interpreted by me (1pt min.). @ -Chest x-ray revealed no obvious acute cardiopulmonary process. CT interpreted by me (1pt min.). @ -None done U/S interpreted by me (1pt. min.). @ -None done What testing was considered but not performed or refused? (CT, X-rays, U/S, labs)? Why? @ -None What meds were considered but not given or refused? Why? @ -None Did you discuss the management of the patient with other professionals (professionals i.e. , PA, TOWER WATCHMAN, lab, RT, psych nurse, manager social responsibility, powerhouse tender, teacher, correction officer reformatory, housing case manager)? Give summary @ -I discussed the case with the admitting provider, Dr. Banerjee who accepted the admission. Was smoking cessation discussed for >3mins.? @ -No Was critical care preformed (if so, how long)? @ -No Were there social determinants of health that impacted care today? How? (Homelessness, low income, unemployed, alcoholism, drug addiction, transportation, low edu. Level, literacy, decrease access to med. care, detention, rehab)? @ -No Was there de-escalation of care discussed even if they declined (Discuss DNR or withdrawal of care, Hospice)? DNR status @ -No What co-morbidities impacted this encounter? (DM, HTN, Smoking, COPD, CAD, Can cer, CVA, ARF, Chemo, Hep., AIDS, mental health diagnosis, sleep apnea, morbid obesity)? @ -Alcohol abuse, chronic pain Was patient admitted / discharged? Hospital course, mention meds given and rout e, prescriptions, significant lab abnormalities, going to OR and other pertinent info. @ -Patient presents with chest pain, chronic pain. Drinks alcohol regularly. Presents acutely intoxicated. We will obtain cardiac workup. She was in agreement this plan. Vital signs are within acceptable limits. Given IV fluids as well as analgesia medications. She does have a remote history of Takotsubo cardiomyopathy. Vitals are within acceptable limits. Patient given aspirin, as well as IV fluids and analgesic medications. EKG showed no signs of acute ischemia. Laboratory studies returned remarkable for hypomagnesemia of 1.5, hypokalemia of 2.9, as well as an indeterminate troponin. Calcium is 6.4 but corrected calcium is improved at 7.6. On reevaluation, patient is feeling improved. Patient remains acutely intoxicated with alcohol with no evidence of alcohol drawl's. Due to electrol yte abnormalities, I did want to admit the patient for further monitoring. She was in agreement this plan. Potassium and magnesium will be replenished. With the chest pain in the setting of chronic diffuse body pain we will monitor her troponins while she is here and have cardiology evaluate the patient. She was in agreement this plan. Placed on CIWA precautions due to the history of alcohol abuse. I discussed the case with the admitting provider, Dr. Banerjee who accepted the admission. Undiagnosed new problem with uncertain prognosis? @ -No Drug Therapy requiring intensive monitoring for toxicity (Heparin, Nitro, Insulin, Cardizem)? @ -No Were any procedures done? @ -No Diagnosis/symptom? @ -Alcohol intoxication, chronic pain, chest pain, hypomagnesemia, hypokalemia Acute, or Chronic, or Acute on Chronic? @ -Acute Uncomplicated (without systemic symptoms) or Complicated (systemic symptoms)? @ -Complicated Side effects of treatment? @ -No Exacerbation, Progression, or Severe Exacerbation? @ -No Poses a threat to life or bodily function? How? (Chest pain, [place], AR, pneumonia, PE, COPD, DKA, ARF, appy, cholecystitis, CVA, Diverticulitis, Homicidal, Suicidal, threat to staff... and all critical care pts) @ -Potentially, yes - Lab Data Result diagrams: 10/04/24 16:18 10/04/24 16:18 Lab Results 10/04/24 10/04/24 10/04/24 Range/Units 16:18 16:18 16:18 WBC 4.40 L (4.50-10.00) 10*3/uL RBC 3.90 L (4.10-5.20) 10*6/uL Hgb 13.3 (12.0-15.0) g/dL Hct 37.2 (37.2-46.3) % MCV 95.4 (80.0-97.0) fL MCH 34.1 H (27.0-32.0) pg MCHC 35.8 (32.0-37.0) g/dL Plt Count 186 (140-440) 10*3/uL MPV 9.3 L (9.5-12.2) fL Immature Gran % (Auto) 0.2 % Neutrophils % 38.8 % Lymphocytes % 44.8 % Monocytes % 14.8 % Eosinophils % 0.7 % Basophils % 0.7 % Immature Gran # 0.01 (0.00-0.04) 10*3/uL Neutrophils # 1.71 L (1.80-7.70) 10*3/uL Lymphocytes # 1.97 (0.90-5.00) 10*3/uL Monocytes # 0.65 (0.20-1.00) 10*3/uL Eosinophils # 0.03 L (0.04-0.35) 10*3/uL Basophils # 0.03 (0.00-0.10) 10*3/uL PT 10.7 (10.0-12.5) sec INR 1.0 (<1.2) APTT 25.0 (22.0-30.0) sec Sodium 137 (137-145) mmol/L Potassium 2.9 L (3.5-5.1) mmol/L Chloride 114 H (98-107) mmol/L Carbon Dioxide 15 L (22-30) mmol/L Anion Gap 8 mmol/L BUN 4 L (7-17) mg/dL Creatinine 0.28 L (0.52-1.04) mg/dL Est GFR (CKD-EPI)AfAm >90 (>60 ml/min/1.73 sqM) Est GFR (CKD-EPI)NonAf >90 (>60 ml/min/1.73 sqM) Glucose 71 L (74-99) mg/dL Calcium 6.4 L* (8.4-10.2) mg/dL Magnesium 1.5 L (1.6-2.3) mg/dL Total Bilirubin 0.4 (0.2-1.3) mg/dL AST 22 (14-36) U/L ALT 10 (4-34) U/L Alkaline Phosphatase 50 (38-126) U/L Troponin I (0.000-0.034) ng/mL Total Protein 4.6 L (6.3-8.2) g/dL Albumin 2.6 L (3.5-5.0) g/dL Urine Color Urine Appearance (Clear) Urine pH (5.0-8.0) Ur Specific [place] (1.001-1.035) Urine Protein (Negative) Urine Glucose (UA) (Negative) Urine Ketones (Negative) Urine Blood (Negative) Urine Nitrite (Negative) Urine Bilirubin (Negative) Urine Urobilinogen (<2.0) mg/dL Ur Leukocyte Esterase (Negative) Serum Alcohol 191 mg/dL 10/04/24 10/04/24 Range/Units 16:18 16:18 WBC (4.50-10.00) 10*3/uL RBC (4.10-5.20) 10*6/uL Hgb (12.0-15.0) g/dL Hct (37.2-46.3) % MCV (80.0-97.0) fL MCH (27.0-32.0) pg MCHC (32.0-37.0) g/dL Plt Count (140-440) 10*3/uL MPV (9.5-12.2) fL Immature Gran % (Auto) % Neutrophils % % Lymphocytes % % Monocytes % % Eosinophils % % Basophils % % Immature Gran # (0.00-0.04) 10*3/uL Neutrophils # (1.80-7.70) 10*3/uL Lymphocytes # (0.90-5.00) 10*3/uL Monocytes # (0.20-1.00) 10*3/uL Eosinophils # (0.04-0.35) 10*3/uL Basophils # (0.00-0.10) 10*3/uL PT (10.0-12.5) sec INR (<1.2) APTT (22.0-30.0) sec Sodium (137-145) mmol/L Potassium (3.5-5.1) mmol/L Chloride (98-107) mmol/L Carbon Dioxide (22-30) mmol/L Anion Gap mmol/L BUN (7-17) mg/dL Creatinine (0.52-1.04) mg/dL Est GFR (CKD-EPI)AfAm (>60 ml/min/1.73 sqM) Est GFR (CKD-EPI)NonAf (>60 ml/min/1.73 sqM) Glucose (74-99) mg/dL Calcium (8.4-10.2) mg/dL Magnesium (1.6-2.3) mg/dL Total Bilirubin (0.2-1.3) mg/dL AST (14-36) U/L ALT (4-34) U/L Alkaline Phosphatase (38-126) U/L Troponin I 0.016 (0.000-0.034) ng/mL Total Protein (6.3-8.2) g/dL Albumin (3.5-5.0) g/dL Urine Color Colorless Urine Appearance Clear (Clear) Urine pH 6.0 (5.0-8.0) Ur Specific [place] 1.003 (1.001-1.035) Urine Protein Negative (Negative) Urine Glucose (UA) Negative (Negative) Urine Ketones Negative (Negative) Urine Blood Negative (Negative) Urine Nitrite Negative (Negative) Urine Bilirubin Negative (Negative) Urine Urobilinogen <2.0 (<2.0) mg/dL Ur Leukocyte Esterase Negative (Negative) Serum Alcohol mg/dL - EKG Data -: EKG Interpreted by Me EKG Comments: 12-lead Electrocardiogram Interpretation Note EKG was reviewed and interpreted by myself. 12-lead ECG performed at 1544 is interpreted by me as revealing normal sinus rhythm at a rate of 67 beats per minute. Draper is normal. AL interval is 165 milliseconds. QRS duration is 98 ms, QTc is 435 ms.. There were no ST or T wave abnormalities to suggest myocardial ischemia or injury. R wave progression across the precordium was satisfactory. By my interpretation this EKG is non-diagnostic for acute ischemia. Compared with EKG from September 08, 2024 with no significant change. Disposition Clinical Impression: Chronic pain, Chest pain, Hypomagnesemia, Hypokalemia, Alcohol intoxication Disposition: ADMITTED IP TO THIS HOSP Condition: Stable Time of Disposition: 17:45
[2024-10-04] MEDS: MORPHINE SULFATE 4 MG/ML SYRINGE IVP STA (18:47)
[2024-10-04] MEDS: ASPIRIN 81 MG PO STA (18:49)
[2024-10-04] MEDS: POTASSIUM CHLORIDE ER 20 MEQ TAB.ER PO SCH (18:50)
[2024-10-04] MEDS: SODIUM CHLORIDE 0.9% 1,000 ML IV SCH (18:51)
[2024-10-04] MEDS: levETIRAcetam 500 MG TAB PO SCH (21:06)
[2024-10-04] MEDS: MAGNESIUM SULFATE-D5W PMX 1 GM in DEXTROSE/WATER 1 100ML.BAG IVPB SCH (21:06)
[2024-10-04] MEDS: MORPHINE SULFATE 4 MG/ML SYRINGE IV PRN (22:38)
[2024-10-05] MEDS ORDERED: LORazepam 1 MG/0.5 ML VIAL IV PRN ×2
--- NOTE | 2024-10-05 01:43 | P.HPIM ---
History of Present Illness H&P Date: 10/04/24 Patient is a 58-year-old female with COPD, hypertension, CAD status post stent, Takostsubo with improved EF (60 to 65% on April 2024), anxiety, bipolar disorder, depression, PTSD seizure disorder history, alcohol abuse (last known drink around 11 AM, history of withdrawal with DTs) here for evaluation of chest pain. Patient reported that while she was smoking a cigarette this morning, she experienced chest pressure that was constant that radiated to her left arm and stomach with an intensity of 8 out of 10 with associated dizziness. She denied palpitations, extremity swelling, focal weakness, abdominal pain patient has stress test done in May 2023 that had normal findings. On admission: Vitals: 98 Fahrenheit, pulse rate 72, respiratory rate 18, blood pressure 115/88, O2 saturation 95% on room air Labs: WBC 4.4, hemoglobin 13.3, potassium 2.9, chloride 114, bicarb 15 BUN 4, creatinine 0.28, glucose 71, calcium 6.4, magnesium 1.5, albumin 2.6. Urinalysis unremarkable. Serum alcohol 199. Coagulation panel unremarkable.. Imaging: EKG showed sinus rhythm with a rate of 67, SD interval 165 MS, normal axis, inverted T waves in V1, no ST-T changes QTc 435 MS. Chest x-ray showed no acute cardiopulmonary process. ED documentation reviewed. 1 L bolus of normal saline and p.o. potassium given in the ED. Review of systems: Pertinent positives and negatives as discussed in HPI, a complete review of systems was performed and all other systems are negative. Social history: Tobacco: 1 pack/day for 16 years Alcohol: Drinks 4 beers daily for 20 years Recreational drugs: Smokes marijuana Travel: No recent travel Physical examination: Vital signs reviewed General: non toxic, no distress, appears at stated age, on room air Derm: no unusual rashes/lesions, warm Head: atraumatic, normocephalic, symmetric Eyes: EOMI, anicteric sclera, pupils equal round reactive to light ENT: Nose and ears atraumatic Neck: No cervical lymphadenopathy, trachea midline, supple Mouth: no lip lesion, mucus membranes moist Cardiovascular: S1S2 reg, no murmur Lungs: CTA bilateral, no rhonchi, no rales, no accessory muscle use Abdominal: soft, nondistended, nontender to palpation, no guarding Ext: muscle strength 5 out of 5 in all 4 extremities grossly, no gross muscle atrophy, no contractures, positive dorsalis pedis pulse bilateral, no edema Neuro: CN II-XI grossly intact, no gross focal neuro deficits Psych: Alert and oriented x 3, appropriate affect and mood Assessment/Plan: 58-year-old female with COPD not on home oxygen and CAD and alcohol abuse here for evaluation of chest pain rule out ACS. The patient is admitted with an anticipated less than 2 midnight stay for e valuation of chest pain and electrolyte correction Active: #. Chest pain, likely due to alcholic gastritis, r/o ACS -Cardiac monitoring -Supplemental oxygen as needed -Heart healthy diet -Trend troponin -EKG as needed -Nitroglycerin prn for chest pain. 0.4 mg PO or Nitrobid topical -Given aspirin 325 mg once in the ED -Continue with aspirin 81 mg daily -Continue lipitor 80 mg daily -Cardiology consulted -Patient has stress test done in May 2023 that had normal findings - Ideally would discharge patient if all cardiac workup is negative #. Alcohol abuse, impending withdrawal #. Hypokalemia, likely due to poor oral intake #. Hypomagnesemia, likely due to poor oral intake #. Hypocalcemia, likely due to poor oral intake -Serum alcohol 191 -Ativan per [facility] protocol - Continue potassium repletion with potassium chloride 60 mEq p.o. - Replete 3 g magnesium sulfate IV - Calcium gluconate 2g IV once - Check magnesium and ionized Ca in the morning - Counseled on alcohol cessation however patient has no intentions to quit. - Goal to discharge prior to withdrawal Chronic Conditions: #. COPD (not on home oxygen) #. Hypertension #. CAD status post stent #. Anxiety #. Bipolar disorder #. Depression #. Seizure disorder history -Resume aspirin and Keppra -Check Keppra levels F: Oral intake E: Monitor calcium, magnesium and potassium N: Heart healthy diet A: Ambulate as needed DVT ppx: Lovenox 40 mg subcu daily CODE STATUS: Full Discussed with: Patient Anticipated discharge place: Home Haleigh Garner MD PGY-1 Internal Medicine Dictation was produced using [employer] dictation software. please excuse any grammatical, word or spelling errors. I have seen and evaluated the patient today. Discussed with the resident and agree with the residents finding and plan as documented in the resident's note. 58 YO F who expresses she does not wish to stop drinking etoh Past Medical History Past Medical History: Cancer, COPD, Hypertension, Liver Disease, Myocardial Infarction ([place]), Seizure Disorder, Vascular Disorder Additional Past Medical History / Comment(s): constpation, feeling b loated,feeling of fullness, and abdominal pain, feels hungry then over eats then vomits to feel better, LAST SEIZURE - JANUARY 2021, "broken heart syndrome"., elevated liver enzymes, "dislocated disks", hx cervical cancer Last Myocardial Infarction Date:: 2019 History of Any Multi-Drug Resistant Organisms: None Reported Past Surgical History: Section, Heart Catheterization, Tubal Ligation Additional Past Surgical History / Comment(s): ORIF rt ankle/hardware later removed, exploratory lap, PAIN CLINIC PROCEDURE, BILAT CATARACTS REMOVED WITH LENS IMPLANTS, procedure to open a vein in left leg-couldn't confirm which leg, partial amputation rt hand middle finger, "procedure to remove cervical cancer" Past Anesthesia/Blood Transfusion Reactions: No Reported Reaction Past Psychological History: Anxiety, Bipolar, Depression, PTSD Smoking Status: Current every day smoker Past Alcohol Use History: Abuse, Daily, Heavy Past Drug Use History: Marijuana - Past Family History Father Family Medical History: Cancer, Prostate Disorder, Pulmonary Embolus Sister(s) Family Medical History: Cancer Brother(s) Family Medical History: Cancer Additional Family Medical History / Comment(s): colon and bladder Medications and Allergies Home Medications Medication Instructions Recorded Confirmed Type Aspirin 81 mg PO DAILY 90 Days #90 tab 09/16/24 10/04/24 Rx levETIRAcetam [Keppra] 500 mg PO Q12HR 90 Days #180 tab 09/30/24 10/04/24 Rx Allergies Allergy/AdvReac Type Severity Reaction Status Date / Time Penicillins Allergy Rash/Hives/Swelling Verified 10/04/24 17:57 all over body NSAIDS (Non-Steroidal AdvReac Unknown upset Verified 10/04/24 17:57 Anti-Inflamma stomach sertraline HCl [From Zoloft] AdvReac Suicidal/Ag Verified 10/04/24 17:57 ression Physical Exam Vitals: Vital Signs Temp Pulse Resp BP Pulse Ox 10/04/24 18:42 71 18 151/108 98 10/04/24 15:28 98 F 72 18 115/82 95 Intake and Output 10/04/24 10/04/24 10/04/24 06:59 14:59 22:59 Other: Weight 44.452 kg Results CBC & Chem 7: 10/04/24 16:18 10/04/24 16:18 Labs: Abnormal Lab Results - Last 24 Hours (Table) 10/04/24 10/04/24 Range/Units 16:18 16:18 WBC 4.40 L (4.50-10.00) 10*3/uL RBC 3.90 L (4.10-5.20) 10*6/uL MCH 34.1 H (27.0-32.0) pg MPV 9.3 L (9.5-12.2) fL Neutrophils # 1.71 L (1.80-7.70) 10*3/uL Eosinophils # 0.03 L (0.04-0.35) 10*3/uL Potassium 2.9 L (3.5-5.1) mmol/L Chloride 114 H (98-107) mmol/L Carbon Dioxide 15 L (22-30) mmol/L BUN 4 L (7-17) mg/dL Creatinine 0.28 L (0.52-1.04) mg/dL Glucose 71 L (74-99) mg/dL Calcium 6.4 L* (8.4-10.2) mg/dL Magnesium 1.5 L (1.6-2.3) mg/dL Total Protein 4.6 L (6.3-8.2) g/dL Albumin 2.6 L (3.5-5.0) g/dL
[2024-10-05] MEDS: CALCIUM GLUCONATE IN NACL 2 GM in SALINE 1 100ML.BAG IVPB ONE (02:48)
[2024-10-05 07:30] VITALS: RESP 18; TEMP 98.3
[2024-10-05 08:37] LABS: Basophils # (A) 0.02 X 10*3/uL (0.00-0.10); Basophils % (A) 0.4 %; Eosinophils # (A) 0.07 X 10*3/uL (0.04-0.35); Eosinophils % (A) 1.4 %; HCT 39.3 % (37.2-46.3); HGB 13.4 g/dL (12.0-15.0); Lymphocytes # (A) 2.14 X 10*3/uL (0.90-5.00); Lymphocytes % (A) 42.7 %; MCH 33.8 pg (27.0-32.0); MCHC 34.1 g/dL (32.0-37.0); Mean Platelet Volume 9.4 FL (9.5-12.2); Monocytes # (A) 0.98 X 10*3/uL (0.20-1.00); Monocytes % (A) 19.6 %; NRBC Per 100 WBC 0 X 10*3/uL (0.00-0.01); Neutrophils # (A) 1.78 X 10*3/uL (1.80-7.70); Neutrophils % (A) 35.5 %; Platelet Count 200 X 10*3/uL (140-440); RBC 3.97 X 10*6/uL (4.10-5.20); RDW 14.6 % (11.5-14.5); WBC 5.01 X 10*3/uL (4.50-10.00)
[2024-10-05 09:12] LABS: ALT 14 U/L (8-44); AST 25 U/L (13-35); Albumin 3.9 g/dL (3.8-4.9); Albumin/Globulin Ratio 2.17 Ratio (1.60-3.17); Alkaline Phosphatase 70 U/L (41-126); BUN/Creat Ratio 11.75 Ratio (12.00-20.00); Blood Urea Nitrogen 4.7 mg/dL (9.0-27.0); Calcium 9.7 mg/dL (8.7-10.3); Carbon Dioxide 22.2 mmol/L (21.6-31.8); Chloride 109 mmol/L (96-109); Globulin 1.8 g/dL (1.6-3.3); Glucose 93 mg/dL (70-110); Magnesium 2.9 mg/dL (1.5-2.4); Potassium 4.6 mmol/L (3.5-5.5); Sodium 139 mmol/L (135-145); Total Bilirubin 0.4 mg/dL (0.3-1.2); Total Protein 5.7 g/dL (6.2-8.2)
[2024-10-05] MEDS: ASPIRIN 81 MG PO SCH (09:48)
[2024-10-05] MEDS: ENOXAPARIN 40 MG/0.4 ML SYRINGE SQ SCH (09:48)
[2024-10-05] MEDS: PANTOPRAZOLE 40 MG/10 ML VIAL IVP SCH (09:48)
[2024-10-05] MEDS: amLODIPine 5 MG TAB PO SCH (09:50)
[2024-10-05 09:55] VITALS: BP 163/108; PULSE 75
--- NOTE | 2024-10-05 10:14 | P.CRDCN ---
History of Present Illness History of present illness: HISTORY OF PRESENT ILLNESS: This is a 58-year-old female with a past medical history significant for Takotsubo cardiomyopathy, normal coronary arteries, alcohol abuse, nicotine dependence, hypertension, and anxiety. Patient follows in the office with Dr. Olivas but has not been in the office since November 2021. We have been asked to see the patient in consultation for chest pain. Patient examined at the bedside. Patient presented to the hospital with a chief complaint of chest discomfort. Patient states she was watching TV yesterday when she started to have chest pain. She states it felt like a gorilla sitting on her chest. She states the pain came and went and was very brief. She complains of back pain this morning as well. She also complains of pain in her left leg. She states that she uses a walker to ambulate. She reports a history of asthma and COPD. She continues to smoke on a daily basis. Patient also has a history of alcohol abuse. She reports drinking at least 424 ounce beers daily. Patient was found to be acutely intoxicated on admission with an alcohol level of 191. Patient's blood pressures have been elevated with a systolic between [id number]. Patient is not taking any blood pressure medications on an outpatient basis. DIAGNOSTICS: - EKG reveals sinus mechanism with no signs of acute ischemia.. - Chest xray negative for acute process. - Laboratory data: WBC 5.01. Hemoglobin 13.4. Platelet count 200. Sodium 139. Potassium 4.6. BUN 4.7. Creatinine 0.4. Troponin negative x 3. - Current home cardiac medications include aspirin 81 mg daily - Most recent echocardiogram obtained in April 2024 revealing EF 60 to 65%, overall normal intracardiac valves. No pericardial effusion. - Cardiac catheterization history: 2017 revealing normal coronary arteries - Patient underwent dobutamine stress test in May 2023 which was negative for ischemia REVIEW OF SYSTEMS: At the time of my exam: CONSTITUTIONAL: Denies fever or chills. HEENT: Denies blurred vision, vision changes, or eye pain. Denies hemoptysis CARDIOVASCULAR: Denies chest pain. Denies orthopnea. Denies PND. Denies palpitations RESPIRATORY: Denies shortness of breath. GASTROINTESTINAL: Denies abdominal pain. Denies nausea or vomiting. HEMATOLOGIC: Denies bleeding disorders. GENITOURINARY: Denies any blood in urine. SKIN: Denies pruitis. Denies rash. PHYSICAL EXAM: VITAL SIGNS: Reviewed. GENERAL: Well-developed in no acute distress. HEENT: Head is normocephalic. Pupils are equal, round. Sclerae anicteric. Mucous membranes of the mouth are moist. Neck supple. No JVD or thyromegaly LUNGS: Respirations even and unlabored. Lungs essentially clear to auscultation bilaterally. HEART: Regular rate and rhythm. S1 and S2 heard. ABDOMEN: Soft. Nondistended. Nontender. EXTREMITIES: Normal range of motion. No clubbing or cyanosis. Peripheral pulses intact. No lower extremity edema NEUROLOGIC: Awake and alert. Oriented x 3. ASSESSMENT: Acute alcohol intoxication Chest pain, troponin negative x 3 Normal coronary arteries, per cardiac catheterization 2017 History of Takotsubo cardiomyopathy with recovered EF Seizure disorder History of alcohol abuse Hypertension Hyperlipidemia History of noncompliance Anxiety Nicotine dependence PLAN: An acute coronary event has been ruled out No need to repeat echocardiogram as this was performed in April 2024 Add amlodipine 5 mg daily for optimal blood pressure control Add Lipitor 20 mg daily Smoking cessation recommended. Patient to be referred to [place] quit line upon discharge Recommend abstinence from alcohol No plans for stress testing at this time Patient is stable for discharge from a cardiac standpoint Nurse practitioner note has been reviewed by physician. Signing provider agrees with the documented findings, assessment, and plan of care documented by ELECTRIC CELL TENDER as a scribe. Past Medical History Past Medical History: Cancer, COPD, Hypertension, Liver Disease, Myocardial Infarction ([place]), Seizure Disorder, Vascular Disorder Additional Past Medical History / Comment(s): constpation, feeling bloated,feeling of fullness, and abdominal pain, feels hungry then over eats then vomits to feel better, LAST SEIZURE - JANUARY 2021, "broken heart syndrome"., elevated liver enzymes, "dislocated disks", hx cervical cancer Last Myocardial Infarction Date:: 2019 History of Any Multi-Drug Resistant Organisms: None Reported Past Surgical History: Section, Heart Catheterization, Tubal Ligation Additional Past Surgical History / Comment(s): ORIF rt ankle/hardware later removed, exploratory lap, PAIN CLINIC PROCEDURE, BILAT CATARACTS REMOVED WITH LENS IMPLANTS, procedure to open a vein in left leg-couldn't confirm which leg, partial amputation rt hand middle finger, "procedure to remove cervical cancer" Past Anesthesia/Blood Transfusion Reactions: No Reported Reaction Past Psychological History: Anxiety, Bipolar, Depression, PTSD Smoking Status: Current every day smoker Past Alcohol Use History: Abuse, Daily, Heavy Past Drug Use History: Marijuana - Past Family History Father Family Medical History: Cancer, Prostate Disorder, Pulmonary Embolus Sister(s) Family Medical History: Cancer Brother(s) Family Medical History: Cancer Additional Family Medical History / Comment(s): colon and bladder Medications and Allergies Home Medications Medication Instructions Recorded Confirmed Type Aspirin 81 mg PO DAILY 90 Days #90 tab 09/16/24 10/04/24 Rx levETIRAcetam [Keppra] 500 mg PO Q12HR 90 Days #180 tab 09/30/24 10/04/24 Rx Allergies Allergy/AdvReac Type Severity Reaction Status Date / Time Penicillins Allergy Rash/Hives/Swelling Verified 10/04/24 17:57 all over body NSAIDS (Non-Steroidal AdvReac Unknown upset Verified 10/04/24 17:57 Anti-Inflamma stomach sertraline HCl [From Zoloft] AdvReac Suicidal/Ag Verified 10/04/24 17:57 ression Physical Exam Vitals: Vital Signs Temp Pulse Pulse Resp BP BP Pulse Ox 10/05/24 09:54 75 163/108 96 10/05/24 07:00 98.3 F 78 18 171/88 97 10/05/24 02:00 97.8 F 67 14 153/84 95 10/04/24 20:07 98.7 F 63 98 H 148/80 10/04/24 20:00 98.3 F 63 16 139/87 96 10/04/24 18:42 71 18 151/108 98 10/04/24 15:28 98 F 72 18 115/82 95 Intake and Output 10/04/24 10/05/24 10/05/24 22:59 06:59 14:59 Intake Total 1500 Output Total 100 1100 Balance -100 400 Intake: IV 1500 Sodium Chloride 0.9% 1, 1500 000 ml @ 130 mls/hr IV . Q7H42M [facility] Rx#:[id number] Output: Urine 100 1100 Other: Voiding Method External Catheter External Catheter Weight 44.452 kg Results 10/05/24 04:31 10/05/24 04:31 Cardiac Enzymes 04/23/25 04/23/25 04/23/25 Range/Units 16:18 16:18 20:36 AST 22 (14-36) U/L Troponin I 0.016 <0.012 (0.000-0.034) ng/mL 10/05/24 10/05/24 Range/Units 00:14 04:31 AST 25 (14-36) U/L Troponin I <0.012 (0.000-0.034) ng/mL Coagulation 10/04/24 Range/Units 16:18 PT 10.7 (10.0-12.5) sec APTT 25.0 (22.0-30.0) sec CBC 10/04/24 10/05/24 Range/Units 16:18 04:31 WBC 4.40 L 5.01 (4.50-10.00) 10*3/uL RBC 3.90 L 3.97 L (4.10-5.20) 10*6/uL Hgb 13.3 13.4 (12.0-15.0) g/dL Hct 37.2 39.3 (37.2-46.3) % Plt Count 186 200 (140-440) 10*3/uL Comprehensive Metabolic Panel 10/04/24 10/05/24 Range/Units 16:18 04:31 Sodium 137 139 (137-145) mmol/L Potassium 2.9 L 4.6 (3.5-5.1) mmol/L Chloride 114 H 109 (98-107) mmol/L Carbon Dioxide 15 L 22.2 (22-30) mmol/L BUN 4 L 4.7 L (7-17) mg/dL Creatinine 0.28 L 0.4 L (0.52-1.04) mg/dL Glucose 71 L 93 (74-99) mg/dL Calcium 6.4 L* 9.7 (8.4-10.2) mg/dL AST 22 25 (14-36) U/L ALT 10 14 (4-34) U/L Alkaline Phosphatase 50 70 (38-126) U/L Total Protein 4.6 L 5.7 L (6.3-8.2) g/dL Albumin 2.6 L 3.9 (3.5-5.0) g/dL Current Medications Generic Name Dose Route Start Last Admin Trade Name Freq PRN Reason Stop Dose Admin Acetaminophen 650 mg 10/04/24 17:59 Acetaminophen Tab 325 Mg Tab PO Q6HR PRN Mild Pain or Fever > 100.5 Amlodipine Besylate 5 mg 10/05/24 09:00 10/05/24 09:50 Amlodipine 5 Mg Tab PO 5 mg DAILY EDGARDO Administration Aspirin 81 mg 10/05/24 09:00 10/05/24 09:48 Aspirin 81 Mg PO 81 mg DAILY EDGARDO Administration Atorvastatin Calcium 20 mg 10/05/24 21:00 Atorvastatin 20 Mg Tab PO HS EDGARDO Enoxaparin Sodium 40 mg 10/05/24 09:00 10/05/24 09:48 Enoxaparin 40 Mg/0.4 Ml Syringe SQ 40 mg DAILY EDGARDO Administration Levetiracetam 500 mg 10/04/24 21:00 10/05/24 09:47 Levetiracetam 500 Mg Tab PO 500 mg Q12HR EDGARDO Administration Lorazepam 1 mg 10/04/24 17:44 Lorazepam 1 Mg/0.5 Ml Vial IV Q1HR PRN CIWA 10 to 15 Lorazepam 1 mg 10/05/24 00:00 Lorazepam 1 Mg/0.5 Ml Vial IV Q2HR PRN CIWA 8 or 9 Lorazepam 2 mg 10/05/24 00:00 Lorazepam 1 Mg/0.5 Ml Vial IV 10/06/24 17:44 Q10M PRN CIWA 16 or higher Miscellaneous Information 1 each 10/04/24 17:43 Potassium Replacement Protocol 1 Each Misc MISCELLANE DAILY PRN Per Protocol Protocol Morphine Sulfate 4 mg 10/04/24 17:59 10/05/24 06:45 Morphine Sulfate 4 Mg/Ml Syringe IV 4 mg Q4HR PRN Administration Severe Pain (Scale 7 to 10) Naloxone HCl 0.2 mg 10/04/24 17:59 Naloxone 0.4 Mg/Ml 1 Ml Vial IV Q2M PRN Opioid Reversal Ondansetron HCl 4 mg 10/04/24 17:59 Ondansetron 4 Mg/2 Ml Vial IVP Q8HR PRN Nausea And Vomiting Pantoprazole Sodium 40 mg 10/05/24 09:00 10/05/24 09:48 Pantoprazole 40 Mg/10 Ml Vial IVP 40 mg DAILY EDGARDO Administration Intake and Output 10/04/24 10/05/24 10/05/24 22:59 06:59 14:59 Intake Total 1500 Output Total 100 1100 Balance -100 400 Intake: IV 1500 Sodium Chloride 0.9% 1, 1500 000 ml @ 130 mls/hr IV . Q7H42M [facility] Rx#:[id number] Output: Urine 100 1100 Other: Voiding Method External Catheter External Catheter Weight 44.452 kg 10/05/24 04:31 10/05/24 04:31
--- NOTE | 2024-10-05 11:07 | P.DS ---
Providers Date of admission: 10/04/24 18:01 Expected date of discharge: 10/05/24 Attending physician: Hiren Banerjee Consults: 10/04/24 17:59 Consult Physician Routine Consulting Provider: [facility] Consult Reason/Comments: chest pain, chronic Do you want consulting provider notified?: Yes Primary care physician: Stated None Hospital Course: Discharge Diagnosis: Chest pain, acute coronary event ruled out. EKG showing normal sinus rhythm normal at 67 bpm. Chest x-ray negative for acute cardiopulmonary process. Troponins were trended resulting at 0.016, less than 0.012, less than 0.012. Cardiology evaluated made some medication changes clearing patient from cardiac perspective for discharge. Patient to follow-up outpatient with PCP in 1 to 2 days and with habilitative interventionist in 1 week Alcohol intoxication in active alcoholic on arrival. Patient medically sober and cleared for discharge at this time. Patient strongly encouraged to avoid further alcohol use. Patient declined assistance with placement in rehab. She was provided with outpatient resources/community resources available to her including AA meetings, counseling services, and a list of inpatient drug and alcohol rehabilitation facilities available to her if she changes her mind. Hypokalemia. Secondary to daily alcohol use. Replaced. Potassium on discharge 4.6. Hypomagnesemia. Secondary to daily alcohol use. Replaced. Magnesium 2.9 on discharge Hypocalcemia. Secondary to daily alcohol use/abuse. Replaced. Calcium 9.7 on discharge. Macrocytosis. Secondary to daily alcohol use. History of Takotsubo's cardiomyopathy with a recovered EF. Continue cardiac medication regimen with aspirin 81 mg daily, atorvastatin 20 mg nightly, and amlodipine 5 mg daily. Patient strongly encouraged to follow-up outpatient with PCP. Hypertension. Continue medication regimen with amlodipine 5 mg daily. Hyperlipidemia. Continue medication regimen with atorvastatin 20 mg nightly. Nicotine dependence. Recommend smoking cessation. Hospital Course: Patient is a 58-year-old female with a past medical history of alcoholism with reports of excessive daily alcohol abuse, hypertension, Takotsubo's cardiomyopathy with a recovered EF of 60 to 65%., Anxiety, nicotine dependence, and previous head injury resulting in seizure disorder on Keppra. She presented to the emergency department via EMS secondary to reports of alcohol intoxication and chest pain. Upon arrival to the facility, patient underwent evaluation in the emergency department. Vital signs upon arrival show blood pressure 115/82, heart rate 72, respiratory rate 18, temp 98.0 F, and SpO2 of 95% on room air.EKG showing normal sinus rhythm normal at 67 bpm. Chest x-ray negative for acute cardiopulmonary process. Labs completed and reviewed. CBC showing no significant abnormalities. Coagulation profile normal findings. BMP showing hypokalemia with potassium of 2.9, chloride 114, bicarb 15, and anion gap of 8. Glucose initially low at 71. Calcium 6.4. Magnesium 1.5. Liver profile normal findings with the exception of low total protein of 4.6 and albumin of 2.6. Corrected calcium of 7.5. Serum alcohol level elevated at 191. Patient admitted under services with consultation to cardiology. Calcium, potassium, and magnesium were replaced. Patient was evaluated by cardiology and started on amlodipine and atorvastatin. Troponins were trended resulting at 0.016, less than 0.012, less than 0.012. Patient was evaluated by cardiology and cleared from cardiac perspective recommending outpatient follow-up in their office in 1 to 2 weeks. Patient medically optimized and clinically sober at this time. Patient strongly encouraged and educated on the importance of alcohol cessation. She was offered assistance with placement in inpatient drug and alcohol rehabilitation facility but patient declined. Patient to follow-up with PCP in 1 to 2 days and with habilitative interventionist in 1 to 2 weeks. Physical exam: Vital signs reviewed and stable. General: Nontoxic, no distress and appears older than stated age. Derm: Skin warm and dry, normal coloration for ethnicity. Head: Atraumatic, normocephalic and symmetric. Eyes: EOM's intact, no lid lag, and anicteric sclera Mouth: no lip lesions, mucus membranes moist Cardiovascular: regular rate and rhythm with normal S1S2, no murmur, positive posterior tibial pulses bilaterally, and cap refill < 2 seconds. Lungs: Respirations even, regular, and unlabored on room air. Lungs CTA bilaterally, no rhonchi, no rales, no wheezing, and no accessory muscle usage. Abdominal: soft, nontender to palpation, no guarding, no appreciable organomegaly Ext: ROM intact. No gross muscle atrophy, no edema, no contractures Neuro: Speech clear, face symmetrical and CN II-XII grossly intact with no noted focal neuro deficits Psych: Alert and oriented to person, place, time, and situation. Appropriate and pleasant affect. A total of 33 minutes of time were spent preparing this complex discharge summary. Pt was discharged on 10/05/24 at 11:05 AM Patient was seen independently by Nurse Practitioner. This document was prepared using [employer] dictation software. Please allow for errors in linen sorter while rare they do occur. Pipe Burdick NP rendered care for this patient independently, reviewed the findings and plan as documented in the note above. I did not physically speak with or examine the patient on this date. Patient Condition at Discharge: Stable Plan - Discharge Summary Discharge Rx Participant: No New Discharge Prescriptions: New Atorvastatin [Lipitor] 20 mg PO HS 30 Days #30 tab amLODIPine [Norvasc] 5 mg PO DAILY 30 Days #30 tab Continue levETIRAcetam [Keppra] 500 mg PO Q12HR 90 Days #180 tab Aspirin 81 mg PO DAILY 90 Days #90 tab Discharge Medication List Aspirin 81 mg PO DAILY 90 Days #90 tab 09/16/24 [Rx] levETIRAcetam [Keppra] 500 mg PO Q12HR 90 Days #180 tab 09/30/24 [Rx] Atorvastatin [Lipitor] 20 mg PO HS 30 Days #30 tab 10/05/24 [Rx] amLODIPine [Norvasc] 5 mg PO DAILY 30 Days #30 tab 10/05/24 [Rx] Follow up Appointment(s)/Referral(s): Adam Olivas DO [STAFF PHYSICIAN] - 10/12/24 1:45 pm [facility] [NON-STAFF] - 1 Week Patient Instructions/Handouts: Chest Pain (DC), Abuse of Alcohol (DC), Alcohol Withdrawal (DC) Activity/Diet/Wound Care/Special Instructions: Activity: As tolerated. Take breaks as needed. Diet: Heart healthy and carb consistent diet. Special Instructions: Take all of your medications as directed and remember to keep all of your doctor's appointments and follow-up as needed. Strongly recommend cessation of any and all alcohol use. Thank you for allowing us to participate in your care, it was truly a pleasure having you for our patient!!! Discharge/Stand Alone Forms: AA Meetings [place], Blood or Platelet Transfusion, Who Do I Call?, Outpatient Counseling, Inp Substance Abuse Facilities, Area PCPs Discharge Disposition: HOME SELF-CARE
[2024-10-05] MEDS ORDERED: ATORVASTATIN 20 MG TAB PO SCH (21:00)
== END 2024-10-05 11:57 | disposition home or self-care (01) ==
LOC: EC 15:26 → 6NMEDSUR 18:01
PROVIDERS: ADMIT Student in an Organized Health Care Education/Training Program; ATTEND Student in an Organized Health Care Education/Training Program
DX: R07.89 Other chest pain (principal); F10.229 Alcohol dependence with intoxication, unspecified; E87.6 Hypokalemia; E83.42 Hypomagnesemia; I10 Essential (primary) hypertension; I25.10 Atherosclerotic heart disease of native coronary artery without angina pectoris; G40.909 Epilepsy, unspecified, not intractable, without status epilepticus; D75.89 Other specified diseases of blood and blood-forming organs; E78.5 Hyperlipidemia, unspecified; E83.51 Hypocalcemia; J44.89 Other specified chronic obstructive pulmonary disease; F41.9 Anxiety disorder, unspecified; F31.9 Bipolar disorder, unspecified; F43.10 Post-traumatic stress disorder, unspecified; M54.9 Dorsalgia, unspecified; G89.29 Other chronic pain; M79.602 Pain in left arm; M79.605 Pain in left leg; R10.9 Unspecified abdominal pain; F17.210 Nicotine dependence, cigarettes, uncomplicated; Y90.6 Blood alcohol level of 120-199 mg/100 ml; Z91.199 Patient's noncompliance with other medical treatment and regimen due to unspecified reason; Z79.82 Long term (current) use of aspirin; Z79.899 Other long term (current) drug therapy; Z88.0 Allergy status to penicillin; Z88.6 Allergy status to analgesic agent; Z88.8 Allergy status to other drugs, medicaments and biological substances; Z95.5 Presence of coronary angioplasty implant and graft; Z86.79 Personal history of other diseases of the circulatory system
CPT/HCPCS: 96376 ×3; 96361 ×3; 96365; 96366 ×2; 96372; 96375 ×2; 99285; 36415; 93005; 80053 ×2; 80177; 82330; 83735 ×2; 84484 ×2; 85025 ×2; 85610; 85730; 81003; 71046; G0378 ×2; G0480; J2270 ×2; J1650; J3475 ×2; J0613; J2470; 80320

== ENCOUNTER 2024-10-14 21:33 | Emergency (ER) | payer OTHER ==
[2024-10-14 22:06] VITALS: PULSE 84; TEMP 97.8
[2024-10-14] MEDS: ONDANSETRON ODT 4 MG TAB PO STA (22:47)
--- NOTE | 2024-10-14 23:02 | ED ---
Alcohol HPI - General Chief Complaint: Alcohol Stated Complaint: ETOH Time Seen by Provider: 10/14/24 22:05 Source: patient, EMS Mode of arrival: EMS - History of Present Illness Initial Comments: 58-year-old female who presents to the emergency with alcohol intoxication. States that her significant other called EMS. Patient had been drinking heavily tonight which is typical for her. She reports to some anxiety with some chest pressure which is also a very common complaint of the patient. Patient states that she did not want to come to the hospital but her fianc forced her. She cannot provide much history due to her intoxicated status. - Related Data Previous Rx's Medication Instructions Recorded Aspirin 81 mg PO DAILY 90 Days #90 tab 09/16/24 levETIRAcetam [Keppra] 500 mg PO Q12HR 90 Days #180 tab 09/30/24 Atorvastatin [Lipitor] 20 mg PO HS 30 Days #30 tab 10/05/24 amLODIPine [Norvasc] 5 mg PO DAILY 30 Days #30 tab 10/05/24 Allergies Allergy/AdvReac Type Severity Reaction Status Date / Time Penicillins Allergy Rash/Hives/Swelling Verified 10/04/24 17:57 all over body NSAIDS (Non-Steroidal AdvReac Unknown upset Verified 10/04/24 17:57 Anti-Inflamma stomach sertraline HCl [From Zoloft] AdvReac Suicidal/Ag Verified 10/04/24 17:57 ression Review of Systems ROS Statement: Those systems with pertinent positive or pertinent negative responses have been documented in the HPI. ROS Other: All systems not noted in ROS Statement are negative. Past Medical History Past Medical History: Cancer, COPD, Hypertension, Liver Disease, Myocardial Infarction ([place]), Seizure Disorder, Vascular Disorder Additional Past Medical History / Comment(s): constpation, feeling bloated,feeling of fullness, and abdominal pain, feels hungry then over eats then vomits to feel better, LAST SEIZURE - JANUARY 2021, "broken heart syndrome"., elevated liver enzymes, "dislocated disks", hx cervical cancer Last Myocardial Infarction Date:: 2019 History of Any Multi-Drug Resistant Organisms: None Reported Past Surgical History: Section, Heart Catheterization, Tubal Ligation Additional Past Surgical History / Comment(s): ORIF rt ankle/hardware later removed, exploratory lap, PAIN CLINIC PROCEDURE, BILAT CATARACTS REMOVED WITH LENS IMPLANTS, procedure to open a vein in left leg-couldn't confirm which leg, partial amputation rt hand middle finger, "procedure to remove cervical cancer" Past Anesthesia/Blood Transfusion Reactions: No Reported Reaction Past Psychological History: Anxiety, Bipolar, Depression, PTSD Smoking Status: Current every day smoker Past Alcohol Use History: Abuse, Daily, Heavy Past Drug Use History: Marijuana - Past Family History Father Family Medical History: Cancer, Prostate Disorder, Pulmonary Embolus Sister(s) Family Medical History: Cancer Brother(s) Family Medical History: Cancer Additional Family Medical History / Comment(s): colon and bladder General Exam Limitations: altered mental status General appearance: alert, appears intoxicated Head exam: Present: atraumatic, normocephalic, normal inspection Eye exam: Present: normal appearance, PERRL, EOMI. Absent: scleral icterus, conjunctival injection, periorbital swelling ENT exam: Present: normal exam, mucous membranes moist Neck exam: Present: normal inspection. Absent: tenderness, meningismus, lymphadenopathy Respiratory exam: Present: normal lung sounds bilaterally. Absent: respiratory distress, wheezes, rales, rhonchi, stridor Cardiovascular Exam: Present: regular rate, normal rhythm, normal heart sounds. Absent: systolic murmur, diastolic murmur, rubs, gallop, clicks Neurological exam: Present: altered Course Vital Signs 10/14/24 10/14/24 10/14/24 21:58 22:47 23:13 Temperature 97.8 F Pulse Rate 84 84 Respiratory 18 17 Rate Blood Pressure 138/90 138/90 156/95 O2 Sat by Pulse 98 97 Oximetry Medical Decision Making - Medical Decision Making Was pt. sent in by a medical professional or institution (, PA, SENIOR AGRICULTURAL ASSISTANT, urgent care, hospital, or group home...) When possible be specific @ -No Did you speak to anyone other than the patient for history (EMS, parent, family, police, friend...)? What history was obtained from this source @ -I spoke with EMS for history Did you review nursing and triage notes (agree or disagree)? Why? @ -I reviewed and agree with nursing and triage notes Were old charts reviewed (outside hosp., previous admission, EMS record, old EKG, old radiological studies, urgent care reports/EKG's, group home records)? Report findings @ -No old charts were reviewed Differential Diagnosis (chest pain, altered mental status, abdominal pain women, abdominal pain men, vaginal bleeding, weakness, fever, dyspnea, syncope, headache, dizziness, GI bleed, back pain, seizure, CVA, palpatations, mental health, musculoskeletal)? @ -Differential Chest Pain: Stable Angina, Unstable Angina, STEMI, NSTEMI Aortic Dissection, Pneumothorax, Musculoskeletal, Esophageal Spasm GERD, Cholecystitis, Pancreatitis, Zoster, this is not meant to be an all-inclusive list. EKG interpreted by me (3pts min.). @ -Yes and demonstrates sinus rhythm with a rate of 74. VT interval 175. QRS 83. QTc of 416. No acute ST segment elevations or depressions X-rays interpreted by me (1pt min.). @ -None done CT interpreted by me (1pt min.). @ -None done U/S interpreted by me (1pt. min.). @ -None done What testing was considered but not performed or refused? (CT, X-rays, U/S, labs)? Why? @ -None What meds were considered but not given or refused? Why? @ -None Did you discuss the management of the patient with other professionals (professionals i.e. DrRenetta, PA, SENIOR AGRICULTURAL ASSISTANT, lab, RT, psych nurse, clinical social work aide, blood bank custodian, teacher, agricultural loan officer, classification case manager)? Give summary @ -No Was smoking cessation discussed for >3mins.? @ -No Was critical care preformed (if so, how long)? @ -No Were there social determinants of health that impacted care today? How? (Homelessness, low income, unemployed, alcoholism, drug addiction, transportation, low edu. Level, literacy, decrease access to med. care, snf, rehab)? @ -No Was there de-escalation of care discussed even if they declined (Discuss DNR or withdrawal of care, Hospice)? DNR status @ -No What co-morbidities impacted this encounter? (DM, HTN, Smoking, COPD, CAD, Cancer, CVA, ARF, Chemo, Hep., AIDS, mental health diagnosis, sleep apnea, morbid obesity)? @ -Alcohol abuse Was patient admitted / discharged? Hospital course, mention meds given and route, prescriptions, significant lab abnormalities, going to OR and other pertinent info. @ -Upon arrival patient seen and evaluated in bed 5. Thorough history and physical exam was performed. IV access was established. Patient does perform a BAT. Twelve-lead EKG was obtained. Patient was watched in the emergency department for several hours and does sober up. Patient is requesting to go home. Patient will not be driving. She does have a safe ride home. I did stress to the patient that she needs to stop drinking. Follow-up with her doctor and return for any new or worsening symptoms Undiagnosed new problem with uncertain prognosis? @ -No Drug Therapy requiring intensive monitoring for toxicity (Heparin, Nitro, Insulin, Cardizem)? @ -No Were any procedures done? @ -No Diagnosis/symptom? @ -Acute alcohol intoxication, chronic alcohol abuse Acute, or Chronic, or Acute on Chronic? @ -Acute on chronic Uncomplicated (without systemic symptoms) or Complicated (systemic symptoms)? @ -Complicated Side effects of treatment? @ -No Exacerbation, Progression, or Severe Exacerbation? @ -No Poses a threat to life or bodily function? How? (Chest pain, USA, PA, pneumonia, PE, COPD, DKA, ARF, appy, cholecystitis, CVA, Diverticulitis, Homicidal, Suicidal, threat to staff... and all critical care pts) @ -No Disposition Clinical Impression: Alcohol intoxication Disposition: HOME SELF-CARE Condition: Stable Instructions (If sedation given, give patient instructions): Alcohol Intoxication (ED) Additional Instructions: Please stop drinking. Follow-up with your doctor. Return for any new or worsening symptoms Is patient prescribed a controlled substance at d/c from ED?: No Referrals: None,Stated [Primary Care Provider] - 1-2 days Time of Disposition: 23:02
[2024-10-14 23:14] VITALS: BP 156/95; RESP 17
== END 2024-10-14 23:14 | disposition home or self-care (01) ==
LOC: EC 21:33
DX: F10.129 Alcohol abuse with intoxication, unspecified (principal); F17.200 Nicotine dependence, unspecified, uncomplicated; Z88.0 Allergy status to penicillin; Z88.6 Allergy status to analgesic agent; Z88.8 Allergy status to other drugs, medicaments and biological substances
CPT/HCPCS: 82075; 93005; 99284

== ENCOUNTER 2024-10-26 15:09 | Emergency (ER) | payer OTHER ==
[2024-10-26 15:20] VITALS: TEMP 98.2
--- NOTE | 2024-10-26 15:47 | ED ---
General Adult HPI - General Chief complaint: Alcohol Stated complaint: ETOH Time Seen by Provider: 10/26/24 15:18 Source: patient, EMS Mode of arrival: EMS Limitations: no limitations - History of Present Illness Initial comments: Patient is a 58-year-old female well-known to this emergency department, history of alcoholism, seizure disorder, CAD, COPD presenting today for alcohol intoxication. Patient reports drinking 4 beers today. Also states that she has had intermittent sharp chest pain that has been ongoing "for a while". Located in center of her chest, states radiates down her left arm. Similar to prior episodes of chest pain that she has been seen here for. Endorses shortness of breath, anxiety. - Related Data Previous Rx's Medication Instructions Recorded Aspirin 81 mg PO DAILY 90 Days #90 tab 09/16/24 levETIRAcetam [Keppra] 500 mg PO Q12HR 90 Days #180 tab 09/30/24 Allergies Allergy/AdvReac Type Severity Reaction Status Date / Time acetaminophen [From Tylenol] Allergy Unknown Verified 10/26/24 17:00 Penicillins Allergy Rash/Hives/Swelling Verified 10/26/24 17:00 all over body NSAIDS (Non-Steroidal AdvReac Unknown upset Verified 10/26/24 17:00 Anti-Inflamma stomach sertraline HCl [From Zoloft] AdvReac Suicidal/Ag Verified 10/26/24 17:00 ression Review of Systems ROS Statement: Those systems with pertinent positive or pertinent negative responses have been documented in the HPI. ROS Other: All systems not noted in ROS Statement are negative. Past Medical History Past Medical History: Cancer, COPD, Hypertension, Liver Disease, Myocardial Infarction ([place]), Seizure Disorder, Vascular Disorder Additional Past Medical History / Comment(s): constpation, feeling bloated, feeling of fullness, and abdominal pain, feels hungry then over eats then vomits to feel better, LAST SEIZURE - JANUARY 2021, "broken heart syndrome"., elevated liver enzymes, "dislocated disks", hx cervical cancer, seizure Last Myocardial Infarction Date:: 2019 History of Any Multi-Drug Resistant Organisms: None Reported Past Surgical History: Section, Heart Catheterization, Tubal Ligation Additional Past Surgical History / Comment(s): ORIF rt ankle/hardware later removed, exploratory lap, PAIN CLINIC PROCEDURE, BILAT CATARACTS REMOVED WITH LENS IMPLANTS, procedure to open a vein in left leg-couldn't confirm which leg, partial amputation rt hand middle finger, "procedure to remove cervical cancer" Past Anesthesia/Blood Transfusion Reactions: No Reported Reaction Past Psychological History: Anxiety, Bipolar, Depression, PTSD Smoking Status: Current every day smoker Past Alcohol Use History: Abuse, Daily, Heavy Past Drug Use History: Marijuana - Past Family History Father Family Medical History: Cancer, Prostate Disorder, Pulmonary Embolus Sister(s) Family Medical History: Cancer Brother(s) Family Medical History: Cancer Additional Family Medical History / Comment(s): colon and bladder General Exam - General Exam Comments Initial Comments: PE: CONSTITUTIONAL: [no apparent distress, well appearing, visibly intoxicated] SKIN: [warm, dry, no jaundice, hives or petechiae, no diaphoresis] EYES:[ pupils are equally round, extraocular movements intact without nystagmus, clear conjunctiva, non-icteric sclera] HENT: [normocephalic, atraumatic, moist mucus membranes, oropharynx clear without exudates] NECK: , [Full range of motion, normal appearance] PULMONARY: [clear to auscultation without wheezes, rhonchi, or rales, normal excursion, no accessory muscle use and no stridor] CARDIOVASCULAR:[ regular rate, rhythm, normal S1 and S2. No appreciated murmurs, rubs or gallops. Strong radial pulses with intact distal perfusion. No lower ex tremity edema] GASTROINTESTINAL: [soft, active bowel sounds throughout, non-tender, non- distended, no palpable masses, no rebound or guarding. No hepatosplenomegaly] GENITOURINARY: MUSCULOSKELETAL: [Extremities have no gross deformity, no edema, redness, or swelling. 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 ] Respiratory 19 18 17 Rate Blood Pressure 137/86 132/86 134/90 O2 Sat by Pulse 95 93 L 95 Oximetry EKG Findings - EKG Comments: EKG Findings:: EKG reviewed, shows sinus rhythm, rate 76 bpm, intervals within acceptable limits, normal axis, no acute ST elevations or depressions when compared to prior,/no STEMI compared to EKG performed on 10/14/2024, EKG overall appears similar to prior however T wave is not upright in lead III when was down in lead III previously Medical Decision Making - Medical Decision Making On return review, patient was most recently here on 10/14/2024, she was here for contact patient, reported anxiety and chest pressure at that time as well patient was monitored until sober and discharged home Was pt. sent in by a medical professional or institution (BENI Dill, SAT ACT INSTRUCTOR, urgent care, hospital, or snf...) When possible be specific @ -[No] Did you speak to anyone other than the patient for history (EMS, parent, family, police, friend...)? What history was obtained from this source @ -[No] Did you review nursing and triage notes (agree or disagree)? Why? @ -[I reviewed and agree with nursing and triage notes] Were old charts reviewed (outside hosp., previous admission, EMS record, old EKG, old radiological studies, urgent care reports/EKG's, snf records)? Report findings @ -[Medical records reviewed]-On return review, patient was most recently here on 10/14/2024, she was here for contact patient, reported anxiety and chest pressure at that time as well patient was monitored until sober and discharged home Differential Diagnosis (chest pain, altered mental status, abdominal pain women, abdominal pain men, vaginal bleeding, weakness, fever, dyspnea, syncope, headache, dizziness, GI bleed, back pain, seizure, CVA, palpatations, mental health, musculoskeletal)? @ -[not applicable] EKG interpreted by me (3pts min.). @ -[As above] X-rays interpreted by me (1pt min.). @ -[None done] CT interpreted by me (1pt min.). @ -[None done] U/S interpreted by me (1pt. min.). @ -[None done] What testing was considered but not performed or refused? (CT, X-rays, U/S, labs)? Why? @ -[None] What meds were considered but not given or refused? Why? @ -[None] Did you discuss the management of the patient with other professionals (professionals i.e. , PA, SAT ACT INSTRUCTOR, lab, RT, psych nurse, clinical social work aide, child care center administrator, teacher, geospatial program management officer, case managers)? Give summary @ -[No] Was smoking cessation discussed for >3mins.? @ -[No] Was critical care preformed (if so, how long)? @ -[No] Were there social determinants of health that impacted care today? How? (Homelessness, low income, unemployed, alcoholism, drug addiction, transportation, low edu. Level, literacy, decrease access to med. care, nursing home, rehab)? @ -[No] Was there de-escalation of care discussed even if they declined (Discuss DNR or withdrawal of care, Hospice)? @ -[No] What co-morbidities impacted this encounter? (DM, HTN, Smoking, COPD, CAD, Cancer, CVA, ARF, Chemo, Hep., AIDS, mental health diagnosis, sleep apnea, morbid obesity)? @ -[None] Was patient admitted / discharged? Hospital course, mention meds given and route, prescriptions, significant lab abnormalities, going to OR and other pertinent info. @ -[hospital course] patient is a 58-year-old female well-known to this emergency department, history alcoholism, seizures, COPD, hypertension presenting today for alcohol intoxication. During my assessment patient also states she has chest pain and request medications for chest pain and anxiety. This is a common occurrence for the patient, as noted above was her previous complaint on 10/14/2024 as well. Obtain chest pain workup, as symptoms been ongoing for prolonged period of time, will obtain single troponin and if within normal limits anticipate discharge Undiagnosed new problem with uncertain prognosis? @ -[No] Drug Therapy requiring intensive monitoring for toxicity (Heparin, Nitro, Insulin, Cardizem)? @ -[No] Were any procedures done? @ -[No] Diagnosis/symptom? @ -[default] Acute, or Chronic, or Acute on Chronic? @ -[default] Uncomplicated (without systemic symptoms) or Complicated (systemic symptoms)? @ -[default] Side effects of treatment? @ -[No] Exacerbation, Progression, or Severe Exacerbation? @ -[No] Poses a threat to life or bodily function? How? (Chest pain, USA, AR, pneumonia, PE, COPD, DKA, ARF, appy, cholecystitis, CVA, Diverticulitis, Homicidal, Suicidal, threat to staff... and all critical care pts) @ -[No] - Lab Data Result diagrams: 10/26/24 16:35 10/26/24 16:35 Lab Results 10/26/24 10/26/24 10/26/24 Range/Units 16:35 16:35 16:35 WBC (4.50-10.00) 10*3/uL RBC (4.10-5.20) 10*6/uL Hgb (12.0-15.0) g/dL Hct (37.2-46.3) % MCV (80.0-97.0) fL MCH (27.0-32.0) pg MCHC (32.0-37.0) g/dL Plt Count (140-440) 10*3/uL MPV (9.5-12.2) fL Immature Gran % (Auto) % Neutrophils % % Lymphocytes % % Monocytes % % Eosinophils % % Basophils % % Immature Gran # (0.00-0.04) 10*3/uL Neutrophils # (1.80-7.70) 10*3/uL Lymphocytes # (0.90-5.00) 10*3/uL Monocytes # (0.20-1.00) 10*3/uL Eosinophils # (0.04-0.35) 10*3/uL Basophils # (0.00-0.10) 10*3/uL PT 10.3 (10.0-12.5) sec INR 0.9 (<1.2) APTT 24.0 (22.0-30.0) sec Sodium 135 L (137-145) mmol/L Potassium 4.0 (3.5-5.1) mmol/L Chloride 103 (98-107) mmol/L Carbon Dioxide 19 L (22-30) mmol/L Anion Gap 13 mmol/L BUN <2 L (7-17) mg/dL Creatinine 0.34 L (0.52-1.04) mg/dL Est GFR (CKD-EPI)AfAm >90 (>60 ml/min/1.73 sqM) Est GFR (CKD-EPI)NonAf >90 (>60 ml/min/1.73 sqM) Glucose 76 (74-99) mg/dL Calcium 9.6 (8.4-10.2) mg/dL Magnesium 1.6 (1.6-2.3) mg/dL Total Bilirubin 0.4 (0.2-1.3) mg/dL AST 53 H (14-36) U/L ALT 24 (4-34) U/L Alkaline Phosphatase 72 (38-126) U/L Troponin I <0.012 (0.000-0.034) ng/mL NT-Pro-B Natriuret Pep <20 pg/mL Total Protein 6.7 (6.3-8.2) g/dL Albumin 4.2 (3.5-5.0) g/dL Lipase 218 (23-300) U/L 05/15/ Range/Units 16:35 WBC 6.38 (4.50-10.00) 10*3/uL RBC 3.71 L (4.10-5.20) 10*6/uL Hgb 12.6 (12.0-15.0) g/dL Hct 34.7 L (37.2-46.3) % MCV 93.5 (80.0-97.0) fL MCH 34.0 H (27.0-32.0) pg MCHC 36.3 (32.0-37.0) g/dL Plt Count 246 (140-440) 10*3/uL MPV 8.9 L (9.5-12.2) fL Immature Gran % (Auto) 0.3 % Neutrophils % 49.8 % Lymphocytes % 34.8 % Monocytes % 12.9 % Eosinophils % 1.4 % Basophils % 0.8 % Immature Gran # 0.02 (0.00-0.04) 10*3/uL Neutrophils # 3.18 (1.80-7.70) 10*3/uL Lymphocytes # 2.22 (0.90-5.00) 10*3/uL Monocytes # 0.82 (0.20-1.00) 10*3/uL Eosinophils # 0.09 (0.04-0.35) 10*3/uL Basophils # 0.05 (0.00-0.10) 10*3/uL PT (10.0-12.5) sec INR (<1.2) APTT (22.0-30.0) sec Sodium (137-145) mmol/L Potassium (3.5-5.1) mmol/L Chloride (98-107) mmol/L Carbon Dioxide (22-30) mmol/L Anion Gap mmol/L BUN (7-17) mg/dL Creatinine (0.52-1.04) mg/dL Est GFR (CKD-EPI)AfAm (>60 ml/min/1.73 sqM) Est GFR (CKD-EPI)NonAf (>60 ml/min/1.73 sqM) Glucose (74-99) mg/dL Calcium (8.4-10.2) mg/dL Magnesium (1.6-2.3) mg/dL Total Bilirubin (0.2-1.3) mg/dL AST (14-36) U/L ALT (4-34) U/L Alkaline Phosphatase (38-126) U/L Troponin I (0.000-0.034) ng/mL NT-Pro-B Natriuret Pep pg/mL Total Protein (6.3-8.2) g/dL Albumin (3.5-5.0) g/dL Lipase (23-300) U/L Disposition Clinical Impression: Alcohol intoxication Disposition: HOME SELF-CARE Condition: Stable Instructions (If sedation given, give patient instructions): Alcohol Intoxication (ED) Additional Instructions: Every disease is a spectrum and a small chance still exists that a serious condition could develop, for this reason, please monitor yourself closely for new, changing or worsening symptoms, return of symptoms, difficulty in breathing, coughing up blood, swelling in your legs, uncontrolled pain, fever, inability to tolerate/keep down fluids or your medications, inability to follow up with outpatient providers as instructed and should you experience these s ymptoms or should you have any further concerns for your wellbeing please return to the ED or call 911 immediately. Please gradually decrease your alcohol use PLEASE call your primary care physician as soon as possible to arrange / discuss plan for followup appointment. Appointment in the next 1-3 days is strongly encouraged if possible. PLEASE let us know here before you leave if there is anything further we can do to be of any assistance. Take care and feel Better! Is patient prescribed a controlled substance at d/c from ED?: No Referrals: None,Stated [Primary Care Provider] - 1-2 days
[2024-10-26] MEDS: ASPIRIN 81 MG PO STA (16:08)
[2024-10-26] MEDS: NITROGLYCERIN SL TABS 0.4 MG TAB SUBLINGUAL STA (16:10)
[2024-10-26 16:52] LABS: Basophils # (A) 0.05 10*3/uL (0.00-0.10); Basophils % (A) 0.8 %; Eosinophils # (A) 0.09 10*3/uL (0.04-0.35); Eosinophils % (A) 1.4 %; HCT 34.7 % (37.2-46.3); HGB 12.6 g/dL (12.0-15.0); Lymphocytes # (A) 2.22 10*3/uL (0.90-5.00); Lymphocytes % (A) 34.8 %; MCHC 36.3 g/dL (32.0-37.0); MCV 93.5 fL (80.0-97.0); Mean Platelet Volume 8.9 fL (9.5-12.2); Monocytes # (A) 0.82 10*3/uL (0.20-1.00); Monocytes % (A) 12.9 %; Neutrophils # (A) 3.18 10*3/uL (1.80-7.70); Neutrophils % (A) 49.8 %; Platelet Count 246 10*3/uL (140-440); RBC 3.71 10*6/uL (4.10-5.20); RDW 13.6 % (11.5-14.5); WBC 6.38 10*3/uL (4.50-10.00)
[2024-10-26 17:01] LABS: INR 0.9 (<1.2); Prothrombin Time 10.3 sec (10.0-12.5)
[2024-10-26 17:03] LABS: ALT 24 U/L (4-34); AST 53 U/L (14-36); African American GFR (CKD) >90 (>60 ml/min/1.73 sqM); Albumin 4.2 g/dL (3.5-5.0); Alkaline Phosphatase 72 U/L (38-126); Anion Gap 13 mmol/L; Blood Urea Nitrogen <2 mg/dL (7-17); Calcium 9.6 mg/dL (8.4-10.2); Carbon Dioxide 19 mmol/L (22-30); Chloride 103 mmol/L (98-107); Glucose 76 mg/dL (74-99); Lipase 218 U/L (23-300); Magnesium 1.6 mg/dL (1.6-2.3); Non-African American GFR(CKD) >90 (>60 ml/min/1.73 sqM); Sodium 135 mmol/L (137-145); Total Bilirubin 0.4 mg/dL (0.2-1.3); Total Protein 6.7 g/dL (6.3-8.2)
[2024-10-26 17:11] LABS: NT-Pro-B-Type Natriuretic Pept <20 pg/mL
--- NOTE | 2024-10-26 17:19 | XR ---
EXAMINATION TYPE: XR chest 2V DATE OF EXAM: 10/26/2024 5:05 PM COMPARISON: Multiple radiographs, with the most recent on 10/04/2024 TECHNIQUE: XR chest 2V Frontal and lateral views of the chest. CLINICAL INDICATION:Female, 58 years old with history of Chest Pain; FINDINGS: Lungs/Pleura: There is no evidence of pleural effusion, focal consolidation, or pneumothorax. Pulmonary vascularity: Unremarkable. Heart/mediastinum: Cardiomediastinal silhouette is unremarkable. Musculoskeletal: No acute osseous pathology. IMPRESSION: No acute cardiopulmonary disease/process. [facility], , 10/26/2024 5:17 PM
[2024-10-26 19:30] VITALS: BP 151/95; PULSE 67; RESP 18
== END 2024-10-26 19:35 | disposition home or self-care (01) ==
LOC: EC 15:09
DX: F10.129 Alcohol abuse with intoxication, unspecified (principal); F17.200 Nicotine dependence, unspecified, uncomplicated; Z88.0 Allergy status to penicillin; Z88.6 Allergy status to analgesic agent; Z88.8 Allergy status to other drugs, medicaments and biological substances
CPT/HCPCS: 36415; 71046; 80053; 83690; 83735; 83880; 84484; 85025; 85610; 85730; 99285

== ENCOUNTER 2024-11-04 23:28 | Emergency (ER) | payer OTHER ==
[2024-11-04] MEDS ORDERED: ceFAZolin 2 GM in DEXTROSE 5% IN WATER 50 ML IVPB ONE (23:45)
[2024-11-04 23:55] LABS: Basophils # (A) 0.05 10*3/uL (0.00-0.10); Basophils % (A) 0.7 %; Eosinophils # (A) 0.07 10*3/uL (0.04-0.35); Eosinophils % (A) 0.9 %; HGB 13.9 g/dL (12.0-15.0); Lymphocytes # (A) 2.83 10*3/uL (0.90-5.00); Lymphocytes % (A) 37.3 %; MCHC 35.6 g/dL (32.0-37.0); MCV 92.6 fL (80.0-97.0); Mean Platelet Volume 9.5 fL (9.5-12.2); Monocytes # (A) 1.21 10*3/uL (0.20-1.00); Neutrophils % (A) 44.8 %; Platelet Count 154 10*3/uL (140-440); RBC 4.21 10*6/uL (4.10-5.20); RDW 13.1 % (11.5-14.5); WBC 7.58 10*3/uL (4.50-10.00)
--- NOTE | 2024-11-05 00:09 | ED ---
Chest Pain HPI - General Chief Complaint: Chest Pain Stated Complaint: chest pain Time Seen by Provider: 11/04/24 23:30 Source: EMS Mode of arrival: EMS Limitations: no limitations - History of Present Illness Initial Comments: Patient is 58-year-old woman here with substernal chest pain. Burning in character. The patient had been drinking. History of vomiting. MD Complaint: chest pain Onset/Timin -: hour(s) Onset: during rest Pain Location: substernal Pain Radiation: none Severity: severe Quality: aching Consistency: constant Improves With: nothing Worsens With: nothing Anginal Symptoms: nausea, vomiting Treatments Prior to Arrival: none - Related Data Home Medications Medication Instructions Recorded Confirmed levETIRAcetam [Keppra] 500 mg PO BID 11/18/24 11/18/24 Allergies Allergy/AdvReac Type Severity Reaction Status Date / Time acetaminophen [From Tylenol] Allergy Unknown Verified 11/27/24 16:24 Penicillins Allergy Rash/Hives/Swelling Verified 11/27/24 16:24 all over body NSAIDS (Non-Steroidal AdvReac Unknown upset Verified 11/27/24 16:24 Anti-Inflamma stomach sertraline HCl [From Zoloft] AdvReac Suicidal/Ag Verified 11/27/24 16:24 ression Review of Systems ROS Statement: Those systems with pertinent positive or pertinent negative responses have been documented in the HPI. ROS Other: All systems not noted in ROS Statement are negative. Constitutional: Reports: chills. Denies: fever ENT: Denies: throat pain Respiratory: Denies: cough, dyspnea Genitourinary: Reports: urgency. Denies: dysuria Musculoskeletal: Denies: back pain Skin: Denies: rash Neurological: Denies: headache, weakness EKG Findings - EKG Results: EKG: interpreted by ERMD, sinus rhythm (Rate 72 bpm), normal axis, normal QRS, normal ST/T, no acute changes - NC, Pacemaker, Normal: Normal tracing: normal tracing Past Medical History Past Medical History: Cancer, COPD, Hypertension, Liver Disease, Myocardial Infarction ([place]), Seizure Disorder, Vascular Disorder Additional Past Medical History / Comment(s): constpation, feeling bloated,feeling of fullness, and abdominal pain, feels hungry then over eats th en vomits to feel better, LAST SEIZURE - JANUARY 2021, "broken heart syndrome"., elevated liver enzymes, "dislocated disks", hx cervical cancer, seizure Last Myocardial Infarction Date:: 2019 History of Any Multi-Drug Resistant Organisms: None Reported Past Surgical History: Section, Heart Catheterization, Tubal Ligation Additional Past Surgical History / Comment(s): ORIF rt ankle/hardware later removed, exploratory lap, PAIN CLINIC PROCEDURE, BILAT CATARACTS REMOVED WITH LENS IMPLANTS, procedure to open a vein in left leg-couldn't confirm which leg, partial amputation rt hand middle finger, "procedure to remove cervical cancer" Past Anesthesia/Blood Transfusion Reactions: No Reported Reaction Past Psychological History: Anxiety, Bipolar, Depression, PTSD Smoking Status: Current every day smoker Past Alcohol Use History: Abuse, Daily, Heavy Past Drug Use History: Marijuana - Past Family History Father Family Medical History: Cancer, Prostate Disorder, Pulmonary Embolus Sister(s) Family Medical History: Cancer Brother(s) Family Medical History: Cancer Additional Family Medical History / Comment(s): colon and bladder General Exam Limitations: no limitations General appearance: alert, in no apparent distress, anxious Head exam: Present: atraumatic, normocephalic Eye exam: Present: normal appearance. Absent: scleral icterus, conjunctival injection ENT exam: Present: mucous membranes dry Neck exam: Present: normal inspection, full ROM Respiratory exam: Present: normal lung sounds bilaterally. Absent: respiratory distress, wheezes, rales, rhonchi, stridor, accessory muscle use Cardiovascular Exam: Present: regular rate, normal rhythm, normal heart sounds. Absent: systolic murmur, diastolic murmur, rubs, gallop GI/Abdominal exam: Present: soft. Absent: distended, tenderness, guarding, mass, pulsatile mass Extremities exam: Present: normal inspection. Absent: pedal edema Back exam: Present: normal inspection. Absent: CVA tenderness (R), CVA tenderness (L) Neurological exam: Present: alert Skin exam: Present: warm, dry, intact, normal color. Absent: rash Course Vital Signs 11/04/24 11/05/24 11/05/24 23:30 00:37 02:00 Temperature 98.8 F Pulse Rate 75 73 72 Respiratory 18 23 16 Rate Blood Pressure 161/96 132/83 138/91 O2 Sat by Pulse 97 98 96 Oximetry 11/05/24 03:31 Temperature 97.5 F L Pulse Rate 88 Respiratory 18 Rate Blood Pressure 135/89 O2 Sat by Pulse 96 Oximetry Chest Pain MDM - MDM The patient had chest x-ray that I interpreted as negative for acute infiltrate, pneumothorax, congestive heart failure. Was pt. sent in by a medical professional or institution (, [facility], SUMMER ANALYST, urgent care, hospital, or prison...) When possible be specific @ -[No] Did you speak to anyone other than the patient for history (EMS, parent, family, police, friend...)? What history was obtained from this source @ -[No] Did you review nursing and triage notes (agree or disagree)? Why? @ -[I reviewed and agree with nursing and triage notes] Were old charts reviewed (outside hosp., previous admission, EMS record, old EKG, old radiological studies, urgent care reports/EKG's, prison records)? Report findings @ -[No old charts were reviewed] Differential Diagnosis (chest pain, altered mental status, abdominal pain women, abdominal pain men, vaginal bleeding, weakness, fever, dyspnea, syncope, headache, dizziness, GI bleed, back pain, seizure, CVA, palpatations, mental health, musculoskeletal)? @ -[Differential Chest Pain: Stable Angina, Unstable Angina, STEMI, NSTEMI Aortic Dissection, Pneumothorax, Musculoskeletal, Esophageal Spasm GERD, Cholecystitis, Pancreatitis, Zoster, this is not meant to be an all-inclusive list. EKG interpreted by me (3pts min.). @ -[I interpreted as above] X-rays interpreted by me (1pt min.). @ -[I interpreted as above CT interpreted by me (1pt min.). @ -[None done] U/S interpreted by me (1pt. min.). @ -[None done] What testing was considered but not performed or refused? (CT, X-rays, U/S, labs)? Why? @ -[None] What meds were considered but not given or refused? Why? @ -[None] Did you discuss the management of the patient with other professionals (professionals i.e. BENI Dill, SUMMER ANALYST, lab, RT, psych nurse, rn social work, route process administrator, teacher, forest fire control officer, complex case manager)? Give summary @ -[No] Was smoking cessation discussed for >3mins.? @ -[No] Was critical care preformed (if so, how long)? @ -[No] Were there social determinants of health that impacted care today? How? (Homelessness, low income, unemployed, alcoholism, drug addiction, transportation, low edu. Level, literacy, decrease access to med. care, half-way, rehab)? @ -[No] Was there de-escalation of care discussed even if they declined (Discuss DNR or withdrawal of care, Hospice)? DNR status @ -[No] What co-morbidities impacted this encounter? (DM, HTN, Smoking, COPD, CAD, Cancer, CVA, ARF, Chemo, Hep., AIDS, mental health diagnosis, sleep apnea, morbid obesity)? @ -[None] Was patient admitted / discharged? Hospital course, mention meds given and route, prescriptions, significant lab abnormalities, going to OR and other pertinent info. @ -Patient is 58-year-old woman here with chest pain. The history and physical not typical of cardiac chest pain. The workup unremarkable. Patient is feeling better and stable for discharge with follow-up Undiagnosed new problem with uncertain prognosis? @ -[No] Drug Therapy requiring intensive monitoring for toxicity (Heparin, Nitro, Insulin, Cardizem)? @ -[No] Were any procedures done? @ -[No] Diagnosis/symptom? @ -[Acute chest pain Alcohol intoxication Acute, or Chronic, or Acute on Chronic? @ -[Acute Uncomplicated (without systemic symptoms) or Complicated (systemic symptoms)? @ -[Uncomplicated Side effects of treatment? @ -[No] Exacerbation, Progression, or Severe Exacerbation? @ -[No] Poses a threat to life or bodily function? How? (Chest pain, USA, NC, pneumonia, PE, COPD, DKA, ARF, appy, cholecystitis, CVA, Diverticulitis, Homicidal, Suicidal, threat to staff... and all critical care pts) @ -[No] All treatments are based on ideal body weight as in ED triage Disposition Clinical Impression: Chest pain, Alcohol intoxication Disposition: HOME SELF-CARE Condition: Good Instructions (If sedation given, give patient instructions): Chest Pain (ED) Is patient prescribed a controlled substance at d/c from ED?: No Referrals: None,Stated [Primary Care Provider] - 1-2 days
[2024-11-05 00:11] LABS: Prothrombin Time 10.6 sec (10.0-12.5)
[2024-11-05 00:15] LABS: ALT 22 U/L (4-34); AST 59 U/L (14-36); African American GFR (CKD) >90 (>60 ml/min/1.73 sqM); Albumin 5.2 g/dL (3.5-5.0); Alkaline Phosphatase 100 U/L (38-126); Anion Gap 18 mmol/L; Blood Urea Nitrogen <2 mg/dL (7-17); Calcium 9.7 mg/dL (8.4-10.2); Carbon Dioxide 20 mmol/L (22-30); Chloride 93 mmol/L (98-107); Glucose 80 mg/dL (74-99); Magnesium 1.8 mg/dL (1.6-2.3); Non-African American GFR(CKD) >90 (>60 ml/min/1.73 sqM); Potassium 3.5 mmol/L (3.5-5.1); Sodium 131 mmol/L (137-145); Total Bilirubin 0.8 mg/dL (0.2-1.3)
[2024-11-05] MEDS: SODIUM CHLORIDE 0.9% 500 ML 500 ML IV STA (00:24)
[2024-11-05] MEDS: LORazepam 1 MG/0.5 ML VIAL IV STA (00:29)
[2024-11-05 00:33] LABS: Partial Thromboplastin Time 21.2 sec (22.0-30.0)
[2024-11-05 00:49] LABS: Alcohol 182 mg/dL
--- NOTE | 2024-11-05 01:42 | XR ---
EXAM: XR Chest, 1 View CLINICAL HISTORY: chest pain TECHNIQUE: Frontal view of the chest. COMPARISON: 11/03/2024. FINDINGS: Lungs: No infiltrate. No atelectasis. No CHF. Pleural space: No pleural effusion. No pneumothorax. Heart: Unremarkable. No cardiomegaly. Mediastinum: Unremarkable. Normal mediastinal contour. Bones/joints: Unremarkable. No acute fracture. IMPRESSION: No acute abnormality.
[2024-11-05 03:51] VITALS: BP 135/89; PULSE 88; RESP 18; TEMP 97.5
== END 2024-11-05 03:31 | disposition home or self-care (01) ==
LOC: EC 23:28
DX: R07.89 Other chest pain (principal); F10.129 Alcohol abuse with intoxication, unspecified; F17.200 Nicotine dependence, unspecified, uncomplicated; Z88.0 Allergy status to penicillin; Z88.6 Allergy status to analgesic agent; Z88.8 Allergy status to other drugs, medicaments and biological substances
CPT/HCPCS: 99285; 96374; 96361; 36415; 93005; 80053; 83735; 84484; 85025; 85610; 85730; 71045; G0480; J2060; 80320

== ENCOUNTER 2024-11-05 23:40 | Emergency (ER) | payer OTHER ==
[2024-11-05 23:56] VITALS: TEMP 98.7
[2024-11-06 00:02] LABS: Glucose,Whole Blood 112 mg/dL (70-110)
--- NOTE | 2024-11-06 00:22 | ED ---
General Adult HPI - General Chief complaint: Anxiety Stated complaint: Not feeling well Time Seen by Provider: 11/05/24 23:43 Source: patient, EMS Mode of arrival: EMS Limitations: no limitations - History of Present Illness Initial comments: This patient is a 58-year-old woman arriving by ambulance to have evaluation for which she is describing as increasing anxiety. Patient states she is also having some chest tightness. She had been drinking and did have some vomiting tonight. States she has had previous panic attacks and this feels like when approaching. Onset/Timin -: hour(s) Location: chest Radiation: non-radiation Severity scale (1-10): 4 Quality: other (Tightness) Consistency: constant Improves with: none Worsens with: none Associated Symptoms: chest pain, nausea/vomiting Treatments Prior to Arrival: none - Related Data Home Medications Medication Instructions Recorded Confirmed levETIRAcetam [Keppra] 500 mg PO BID 11/18/24 11/18/24 Allergies Allergy/AdvReac Type Severity Reaction Status Date / Time acetaminophen [From Tylenol] Allergy Unknown Verified 11/27/24 16:24 Penicillins Allergy Rash/Hives/Swelling Verified 11/27/24 16:24 all over body NSAIDS (Non-Steroidal AdvReac Unknown upset Verified 11/27/24 16:24 Anti-Inflamma stomach sertraline HCl [From Zoloft] AdvReac Suicidal/Ag Verified 11/27/24 16:24 ression Review of Systems ROS Statement: Those systems with pertinent positive or pertinent negative responses have been documented in the HPI. ROS Other: All systems not noted in ROS Statement are negative. Constitutional: Denies: fever, chills, weakness Respiratory: Denies: cough, dyspnea Cardiovascular: Reports: chest pain. Denies: palpitations, orthopnea, edema, syncope Gastrointestinal: Reports: nausea, vomiting. Denies: abdominal pain, diarrhea, hematemesis Genitourinary: Denies: dysuria, hematuria Musculoskeletal: Denies: back pain Skin: Denies: rash Neurological: Denies: headache, weakness Psychiatric: Reports: anxiety Past Medical History Past Medical History: Cancer, COPD, Hypertension, Liver Disease, Myocardial Infarction ([place]), Seizure Disorder, Vascular Disorder Additional Past Medical History / Comment(s): constpation, feeling bloated,feeling of fullness, and abdominal pain, feels hungry then over eats then vomits to feel better, LAST SEIZURE - JANUARY 2021, "broken heart syndrome"., elevated liver enzymes, "dislocated disks", hx cervical cancer, s brandy Last Myocardial Infarction Date:: 2019 History of Any Multi-Drug Resistant Organisms: None Reported Past Surgical History: Section, Heart Catheterization, Tubal Ligation Additional Past Surgical History / Comment(s): ORIF rt ankle/hardware later removed, exploratory lap, PAIN CLINIC PROCEDURE, BILAT CATARACTS REMOVED WITH LENS IMPLANTS, procedure to open a vein in left leg-couldn't confirm which leg, partial amputation rt hand middle finger, "procedure to remove cervical cancer" Past Anesthesia/Blood Transfusion Reactions: No Reported Reaction Past Psychological History: Anxiety, Bipolar, Depression, PTSD Smoking Status: Current every day smoker Past Alcohol Use History: Abuse, Daily, Heavy Past Drug Use History: Marijuana - Past Family History Father Family Medical History: Cancer, Prostate Disorder, Pulmonary Embolus Sister(s) Family Medical History: Cancer Brother(s) Family Medical History: Cancer Additional Family Medical History / Comment(s): colon and bladder General Exam General appearance: alert, in no apparent distress, anxious Head exam: Present: atraumatic, normocephalic Eye exam: Present: normal appearance. Absent: scleral icterus, conjunctival injection ENT exam: Present: normal oropharynx Neck exam: Present: normal inspection Respiratory exam: Present: normal lung sounds bilaterally. Absent: respiratory distress, wheezes, rales, rhonchi, stridor, accessory muscle use Cardiovascular Exam: Present: regular rate, normal rhythm, normal heart sounds. Absent: systolic murmur, diastolic murmur, rubs, gallop GI/Abdominal exam: Present: soft. Absent: distended, tenderness, guarding, rebound, rigid, mass, pulsatile mass Extremities exam: Present: normal inspection, normal capillary refill. Absent: pedal edema, calf tenderness Back exam: Present: normal inspection Neurological exam: Present: alert Psychiatric exam: Present: anxious. Absent: suicidal ideation Skin exam: Present: warm, dry, intact, normal color. Absent: rash Course Vital Signs 11/05/24 11/06/24 11/06/24 23:53 01:45 02:33 Temperature 98.7 F Pulse Rate 97 85 75 Respiratory 22 16 16 Rate Blood Pressure 179/98 137/98 111/66 O2 Sat by Pulse 98 96 97 Oximetry 11/06/24 04:09 Temperature Pulse Rate 83 Respiratory 18 Rate Blood Pressure 142/99 O2 Sat by Pulse 98 Oximetry EKG Findings - EKG Results: EKG: interpreted by ERMD, sinus rhythm (Rate 95 bpm), normal axis, normal ST/T - Blocks, [place], Hypertrophy, ST Abn: AV and intraventricular conduction: right bundle branch block (fixed/intermittent, complete/incomplete) (Possible incomplete right bundle branch block) QRS axis and voltage: left axis deviation (-30 to -90) (Borderline) Medical Decision Making - Medical Decision Making The patient had chest x-ray that I interpreted as negative for acute infiltrate, pneumothorax, congestive heart failure Was pt. sent in by a medical professional or institution ([facility]I Dill, MATERIALS BRANCH CHIEF, urgent care, hospital, or jail...) When possible be specific @ -[No] Did you speak to anyone other than the patient for history (EMS, parent, family, police, friend...)? What history was obtained from this source @ -[No] Did you review nursing and triage notes (agree or disagree)? Why? @ -[I reviewed and agree with nursing and triage notes] Were old charts reviewed (outside hosp., previous admission, EMS record, old EKG, old radiological studies, urgent care reports/EKG's, jail records)? Report findings @ -[No old charts were reviewed] Differential Diagnosis (chest pain, altered mental status, abdominal pain women, abdominal pain men, vaginal bleeding, weakness, fever, dyspnea, syncope, headache, dizziness, GI bleed, back pain, seizure, CVA, palpatations, mental health, musculoskeletal)? @ -[Differential Mental Health Depression, anxiety, bipolar, psychosis, schizophrenia, borderline personality, situational depression, adjustment disorder, behavioral disorder, brain tumor, malingering, substance abuse, encephalopathy, medication reaction, dementia, hypothyroidism, degenerative neurologic disorder, lupus.... This is not meant to be all-inclusive list EKG interpreted by me (3pts min.). @ -[I interpreted as above] X-rays interpreted by me (1pt min.). @ -[I interpreted as above CT interpreted by me (1pt min.). @ -[None done] U/S interpreted by me (1pt. min.). @ -[None done] What testing was considered but not performed or refused? (CT, X-rays, U/S, labs)? Why? @ -[None] What meds were considered but not given or refused? Why? @ -[None] Did you discuss the management of the patient with other professionals (professionals i.e. , PA, MATERIALS BRANCH CHIEF, lab, RT, psych nurse, manager social responsibility, director strategic account management, teacher, conservation science officer, clinical case manager)? Give summary @ -[No] Was smoking cessation discussed for >3mins.? @ -[No] Was critical care preformed (if so, how long)? @ -[No] Were there social determinants of health that impacted care today? How? (Homelessness, low income, unemployed, alcoholism, drug addiction, transportation, low edu. Level, literacy, decrease access to med. care, intermediate, rehab)? @ -[Alcoholism Was there de-escalation of care discussed even if they declined (Discuss DNR or withdrawal of care, Hospice)? DNR status @ -[No] What co-morbidities impacted this encounter? (DM, HTN, Smoking, COPD, CAD, Cancer, CVA, ARF, Chemo, Hep., AIDS, mental health diagnosis, sleep apnea, morbid obesity)? @ -[None] Was patient admitted / discharged? Hospital course, mention meds given and route, prescriptions, significant lab abnormalities, going to OR and other p ertinent info. @ -[Patient is a 58-year-old woman presenting with anxiety. The patient is feeling better with fluids and medication. Discussed tapering her alcohol use as suspect that this contributes to her symptoms. The patient also did have mild hyponatremia she is given saline. Discussed appropriate further care and follow-up as well as return parameters Undiagnosed new problem with uncertain prognosis? @ -[No] Drug Therapy requiring intensive monitoring for toxicity (Heparin, Nitro, I nsulin, Cardizem)? @ -[No] Were any procedures done? @ -[No] Diagnosis/symptom? @ -[Acute anxiety Acute alcohol withdrawal Acute hyponatremia Acute, or Chronic, or Acute on Chronic? @ -[Acute Uncomplicated (without systemic symptoms) or Complicated (systemic symptoms)? @ -[Uncomplicated Side effects of treatment? @ -[No] Exacerbation, Progression, or Severe Exacerbation? @ -[No] Poses a threat to life or bodily function? How? (Chest pain, USA, NM, pneumonia, PE, COPD, DKA, ARF, appy, cholecystitis, CVA, Diverticulitis, Homicidal, Suicidal, threat to staff... and all critical care pts) @ -[No] All treatments are based on ideal body weight as in ED triage - Lab Data Result diagrams: 11/06/24 01:01 11/06/24 01:01 Lab Results 11/05/24 11/06/24 11/06/24 Range/Units 23:59 01:01 01:01 WBC 6.55 (4.50-10.00) 10*3/uL RBC 3.61 L (4.10-5.20) 10*6/uL Hgb 12.1 (12.0-15.0) g/dL Hct 33.4 L (37.2-46.3) % MCV 92.5 (80.0-97.0) fL MCH 33.5 H (27.0-32.0) pg MCHC 36.2 (32.0-37.0) g/dL Plt Count 146 (140-440) 10*3/uL MPV 10.1 (9.5-12.2) fL Immature Gran % (Auto) 0.6 % Neutrophils % 54.4 % Lymphocytes % 25.2 % Monocytes % 18.5 % Eosinophils % 0.5 % Basophils % 0.8 % Immature Gran # 0.04 (0.00-0.04) 10*3/uL Neutrophils # 3.57 (1.80-7.70) 10*3/uL Lymphocytes # 1.65 (0.90-5.00) 10*3/uL Monocytes # 1.21 H (0.20-1.00) 10*3/uL Eosinophils # 0.03 L (0.04-0.35) 10*3/uL Basophils # 0.05 (0.00-0.10) 10*3/uL Sodium 127 L (137-145) mmol/L Potassium 3.6 (3.5-5.1) mmol/L Chloride 95 L (98-107) mmol/L Carbon Dioxide 21 L (22-30) mmol/L Anion Gap 11 mmol/L BUN <2 L (7-17) mg/dL Creatinine 0.36 L (0.52-1.04) mg/dL Est GFR (CKD-EPI)AfAm >90 (>60 ml/min/1.73 sqM) Est GFR (CKD-EPI)NonAf >90 (>60 ml/min/1.73 sqM) Glucose 101 H (74-99) mg/dL POC Glucose (mg/dL) 112 H (70-110) mg/dL POC Glu Wire Setter ID Nenita Perkins Lactic Ac Sepsis Rflx Plasma Lactic Acid Anthony (0.7-2.0) mmol/L Calcium 9.5 (8.4-10.2) mg/dL Total Bilirubin 0.8 (0.2-1.3) mg/dL AST 54 H (14-36) U/L ALT 20 (4-34) U/L Alkaline Phosphatase 86 (38-126) U/L Troponin I (0.000-0.034) ng/mL Total Protein 7.0 (6.3-8.2) g/dL Albumin 4.5 (3.5-5.0) g/dL Serum Alcohol <10 mg/dL 11/06/24 11/06/24 11/06/24 Range/Units 01:01 01:01 01:41 WBC (4.50-10.00) 10*3/uL RBC (4.10-5.20) 10*6/uL Hgb (12.0-15.0) g/dL Hct (37.2-46.3) % MCV (80.0-97.0) fL MCH (27.0-32.0) pg MCHC (32.0-37.0) g/dL Plt Count (140-440) 10*3/uL MPV (9.5-12.2) fL Immature Gran % (Auto) % Neutrophils % % Lymphocytes % % Monocytes % % Eosinophils % % Basophils % % Immature Gran # (0.00-0.04) 10*3/uL Neutrophils # (1.80-7.70) 10*3/uL Lymphocytes # (0.90-5.00) 10*3/uL Monocytes # (0.20-1.00) 10*3/uL Eosinophils # (0.04-0.35) 10*3/uL Basophils # (0.00-0.10) 10*3/uL Sodium (137-145) mmol/L Potassium (3.5-5.1) mmol/L Chloride (98-107) mmol/L Carbon Dioxide (22-30) mmol/L Anion Gap mmol/L BUN (7-17) mg/dL Creatinine (0.52-1.04) mg/dL Est GFR (CKD-EPI)AfAm (>60 ml/min/1.73 sqM) Est GFR (CKD-EPI)NonAf (>60 ml/min/1.73 sqM) Glucose (74-99) mg/dL POC Glucose (mg/dL) (70-110) mg/dL POC Glu Wire Setter ID Lactic Ac Sepsis Rflx Y Plasma Lactic Acid Anthony 2.2 H* (0.7-2.0) mmol/L Calcium (8.4-10.2) mg/dL Total Bilirubin (0.2-1.3) mg/dL AST (14-36) U/L ALT (4-34) U/L Alkaline Phosphatase (38-126) U/L Troponin I <0.012 (0.000-0.034) ng/mL Total Protein (6.3-8.2) g/dL Albumin (3.5-5.0) g/dL Serum Alcohol mg/dL Disposition Clinical Impression: Alcohol withdrawal Disposition: HOME SELF-CARE Condition: Good Instructions (If sedation given, give patient instructions): Alcohol Withdrawal (ED) Is patient prescribed a controlled substance at d/c from ED?: Yes Referrals: None,Stated [Primary Care Provider] - 1-2 days
[2024-11-06] MEDS ORDERED: SODIUM CHLORIDE 0.9% 1,000 ML IV ONE (00:38)
[2024-11-06] MEDS: SODIUM CHLORIDE 0.9% 1,000 ML IV STA (00:57)
[2024-11-06] MEDS: LORazepam 1 MG/0.5 ML VIAL IV STA (00:57)
[2024-11-06 01:13] LABS: Basophils # (A) 0.05 10*3/uL (0.00-0.10); Basophils % (A) 0.8 %; Eosinophils # (A) 0.03 10*3/uL (0.04-0.35); Eosinophils % (A) 0.5 %; HCT 33.4 % (37.2-46.3); HGB 12.1 g/dL (12.0-15.0); Lymphocytes # (A) 1.65 10*3/uL (0.90-5.00); Lymphocytes % (A) 25.2 %; MCH 33.5 pg (27.0-32.0); MCHC 36.2 g/dL (32.0-37.0); MCV 92.5 fL (80.0-97.0); Mean Platelet Volume 10.1 fL (9.5-12.2); Monocytes # (A) 1.21 10*3/uL (0.20-1.00); Monocytes % (A) 18.5 %; Neutrophils # (A) 3.57 10*3/uL (1.80-7.70); Neutrophils % (A) 54.4 %; Platelet Count 146 10*3/uL (140-440); RBC 3.61 10*6/uL (4.10-5.20); RDW 12.9 % (11.5-14.5); WBC 6.55 10*3/uL (4.50-10.00)
[2024-11-06 01:35] LABS: Anion Gap 11 mmol/L; Blood Urea Nitrogen <2 mg/dL (7-17); Carbon Dioxide 21 mmol/L (22-30); Chloride 95 mmol/L (98-107); Glucose 101 mg/dL (74-99); Potassium 3.6 mmol/L (3.5-5.1); Sodium 127 mmol/L (137-145)
[2024-11-06 01:36] LABS: ALT 20 U/L (4-34); AST 54 U/L (14-36); African American GFR (CKD) >90 (>60 ml/min/1.73 sqM); Albumin 4.5 g/dL (3.5-5.0); Alcohol <10 mg/dL; Alkaline Phosphatase 86 U/L (38-126); Calcium 9.5 mg/dL (8.4-10.2); Non-African American GFR(CKD) >90 (>60 ml/min/1.73 sqM); Total Bilirubin 0.8 mg/dL (0.2-1.3)
[2024-11-06 04:10] VITALS: BP 142/99; PULSE 83; RESP 18
--- NOTE | 2024-11-06 06:09 | XR ---
EXAM: XR Chest, 2 Views CLINICAL HISTORY: chest pain TECHNIQUE: Frontal and lateral views of the chest. COMPARISON: 11/04/24 FINDINGS: Lungs: No evidence of airspace consolidation. No pulmonary edema. Pleural space: Unremarkable. No pneumothorax. No significant pleural effusion. Heart: Unremarkable. No cardiomegaly. Mediastinum: Unremarkable. Normal mediastinal contour. Bones/joints: Unremarkable. No acute fracture. IMPRESSION: No evidence of active cardiopulmonary abnormality.
== END 2024-11-06 04:10 | disposition home or self-care (01) ==
LOC: EC 23:40
DX: F41.9 Anxiety disorder, unspecified (principal); F10.239 Alcohol dependence with withdrawal, unspecified; E87.1 Hypo-osmolality and hyponatremia; I45.10 Unspecified right bundle-branch block; F17.200 Nicotine dependence, unspecified, uncomplicated; Z88.0 Allergy status to penicillin; Z88.6 Allergy status to analgesic agent; Z88.8 Allergy status to other drugs, medicaments and biological substances
CPT/HCPCS: 36415 ×2; 93005; 80053; 83605; 84484; 85025; 71046; 99284; 96374; 96361 ×3; G0480; J2060; 80320

== ENCOUNTER 2024-11-10 19:47 | Emergency (ER) | payer OTHER ==
[2024-11-10 19:52] VITALS: RESP 18; TEMP 98
[2024-11-10 19:52] LABS: Glucose,Whole Blood 98 mg/dL (70-110)
--- NOTE | 2024-11-10 21:37 | ED ---
Alcohol HPI - General Chief Complaint: Alcohol Stated Complaint: ETOH Time Seen by Provider: 11/10/24 20:24 Source: patient, EMS Mode of arrival: EMS - History of Present Illness Initial Comments: Patient is 58-year-old woman brought to have evaluation for alcohol intoxication. The patient states she was brought from home, she does not know who called EMS. She is denying complaints. 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 Previous Visits for Alcohol Intoxication?: Yes Recent Trauma: No Associated Symptoms: denies other symptoms Treatments Prior to Arrival: none Chronic Alcohol Use: Yes - Related Data Home Medications Medication Instructions Recorded Confirmed levETIRAcetam [Keppra] 500 mg PO BID 11/18/24 11/18/24 Allergies Allergy/AdvReac Type Severity Reaction Status Date / Time acetaminophen [From Tylenol] Allergy Unknown Verified 12/02/24 23:23 Penicillins Allergy Rash/Hives/Swelling Verified 12/02/24 23:23 all over body NSAIDS (Non-Steroidal AdvReac Unknown upset Verified 12/02/24 23:23 Anti-Inflamma stomach sertraline HCl [From Zoloft] AdvReac Suicidal/Ag Verified 12/02/24 23:23 ression Review of Systems ROS Statement: Those systems with pertinent positive or pertinent negative responses have been documented in the HPI. ROS Other: All systems not noted in ROS Statement are negative. Constitutional: Denies: fever, weakness Eyes: Denies: vision change Respiratory: Denies: cough, dyspnea Cardiovascular: Denies: chest pain, palpitations, edema, syncope Gastrointestinal: Denies: abdominal pain, vomiting, diarrhea Genitourinary: Denies: dysuria, hematuria Musculoskeletal: Denies: back pain Skin: Denies: rash Neurological: Denies: headache Past Medical History Past Medical History: Cancer, COPD, Hypertension, Liver Disease, Myocardial Infarction ([place]), Seizure Disorder, Vascular Disorder Additional Past Medical History / Comment(s): constpation, feeling bloated,feeling of fullness, and abdominal pain, feels hungry then over eats then vomits to feel better, LAST SEIZURE - JANUARY 2021, "broken heart syndrome"., elevated liver enzymes, "dislocated disks", hx cervical cancer, seizure Last Myocardial Infarction Date:: 2019 History of Any Multi-Drug Resistant Organisms: None Reported Past Surgical History: Section, Heart Catheterization, Tubal Ligation Additional Past Surgical History / Comment(s): ORIF rt ankle/hardware later removed, exploratory lap, PAIN CLINIC PROCEDURE, BILAT CATARACTS REMOVED WITH LENS IMPLANTS, procedure to open a vein in left leg-couldn't confirm which leg, partial amputation rt hand middle finger, "procedure to remove cervical cancer" Past Anesthesia/Blood Transfusion Reactions: No Reported Reaction Past Psychological History: Anxiety, Bipolar, Depression, PTSD Smoking Status: Current every day smoker Past Alcohol Use History: Abuse, Daily, Heavy Past Drug Use History: Marijuana - Past Family History Father Family Medical History: Cancer, Prostate Disorder, Pulmonary Embolus Sister(s) Family Medical History: Cancer Brother(s) Family Medical History: Cancer Additional Family Medical History / Comment(s): colon and bladder General Exam General appearance: alert, in no apparent distress, appears intoxicated Head exam: Present: atraumatic, normocephalic Eye exam: Present: normal appearance. Absent: scleral icterus, conjunctival injection ENT exam: Present: normal oropharynx Neck exam: Present: normal inspection Respiratory exam: Present: normal lung sounds bilaterally. Absent: respiratory distress, wheezes, rales, rhonchi Cardiovascular Exam: Present: regular rate, normal rhythm, normal heart sounds. Absent: systolic murmur, diastolic murmur, rubs, gallop GI/Abdominal exam: Present: soft. Absent: distended, tenderness, guarding, rebound Extremities exam: Present: normal inspection, normal capillary refill. Absent: pedal edema Back exam: Present: normal inspection. Absent: CVA tenderness (R), CVA tenderness (L) Neurological exam: Present: alert Psychiatric exam: Absent: suicidal ideation Skin exam: Present: warm, dry, intact, normal color. Absent: rash Course Vital Signs 11/10/24 11/10/24 19:49 21:52 Temperature 98.0 F Pulse Rate 75 67 Respiratory 18 18 Rate Blood Pressure 141/93 126/79 O2 Sat by Pulse 95 95 Oximetry Medical Decision Making - Medical Decision Making Patient is a 58-year-old woman here by ambulance evaluation for intoxication. The patient observed and does appear stable for discharge. Discussed return parameters. Was pt. sent in by a medical professional or institution (, PA, CARPENTER'S ASSISTANT, urgent care, hospital, or alf...) When possible be specific @ -[No] Did you speak to anyone other than the patient for history (EMS, parent, family, police, friend...)? What history was obtained from this source @ -[No] Did you review nursing and triage notes (agree or disagree)? Why? @ -[I reviewed and agree with nursing and triage notes] Were old charts reviewed (outside hosp., previous admission, EMS record, old EKG, old radiological studies, urgent care reports/EKG's, alf records)? Report findings @ -[No old charts were reviewed] Differential Diagnosis (chest pain, altered mental status, abdominal pain women, abdominal pain men, vaginal bleeding, weakness, fever, dyspnea, syncope, headache, dizziness, GI bleed, back pain, seizure, CVA, palpatations, mental health, musculoskeletal)? @ -[Differential Mental Health Depression, anxiety, bipolar, psychosis, schizophrenia, borderline personality, situational depression, adjustment disorder, behavioral disorder, brain tumor, malingering, substance abuse, encephalopathy, medication reaction, dementia, hypothyroidism, degenerative neurologic disorder, lupus.... This is not meant to be all-inclusive list EKG interpreted by me (3pts min.). @ -[As above] X-rays interpreted by me (1pt min.). @ -[None done] CT interpreted by me (1pt min.). @ -[None done] U/S interpreted by me (1pt. min.). @ -[None done] What testing was considered but not performed or refused? (CT, X-rays, U/S, labs)? Why? @ -[None] What meds were considered but not given or refused? Why? @ -[None] Did you discuss the management of the patient with other professionals (professionals i.e. , PA, CARPENTER'S ASSISTANT, lab, RT, psych nurse, psychosocial rehabilitation counselor, mechanical artist, teacher, loan officer assistant, family preservation caseworker)? Give summary @ -[No] Was smoking cessation discussed for >3mins.? @ -[No] Was critical care preformed (if so, how long)? @ -[No] Were there social determinants of health that impacted care today? How? (Homelessness, low income, unemployed, alcoholism, drug addiction, transportation, low edu. Level, literacy, decrease access to med. care, care home, rehab)? @ -[Alcohol abuse Was there de-escalation of care discussed even if they declined (Discuss DNR or withdrawal of care, Hospice)? DNR status @ -[No] What co-morbidities impacted this encounter? (DM, HTN, Smoking, COPD, CAD, Cancer, CVA, ARF, Chemo, Hep., AIDS, mental health diagnosis, sleep apnea, morbid obesity)? @ -[None] Was patient admitted / discharged? Hospital course, mention meds given and route, prescriptions, significant lab abnormalities, going to OR and other pertinent info. @ -[ As above Undiagnosed new problem with uncertain prognosis? @ -[No] Drug Therapy requiring intensive monitoring for toxicity (Heparin, Nitro, Insulin, Cardizem)? @ -[No] Were any procedures done? @ -[No] Diagnosis/symptom? @ -[Acute alcohol intoxication Acute, or Chronic, or Acute on Chronic? @ -Acute Uncomplicated (without systemic symptoms) or Complicated (systemic symptoms)? @ -[Uncomplicated Side effects of treatment? @ -[No] Exacerbation, Progression, or Severe Exacerbation? @ -[No] Poses a threat to life or bodily function? How? (Chest pain, [place], [place], pneumonia, PE, COPD, DKA, ARF, appy, cholecystitis, CAcute alcohol intoxicationrticulitis, Homicidal, Suicidal, threat to staff... and all critical care pts) @ -[No] All treatments are based on ideal body weight as in ED triage - Lab Data Lab Results 11/10/24 Range/Units 19:51 POC Glucose (mg/dL) 98 (70-110) mg/dL POC Glu Hand Etcher Helper ID Burgess Gonzalez Disposition Clinical Impression: Alcohol withdrawal Disposition: HOME SELF-CARE Condition: Good Instructions (If sedation given, give patient instructions): Alcohol Withdrawal (ED) Is patient prescribed a controlled substance at d/c from ED?: No Referrals: Vipin Vo [NON-STAFF] - Ruth Vo [NON-STAFF] - Theodore Arceo MD [Primary Care Provider] - 1-2 days Forms: AA Meetings Ruth Mccormick, Outpatient Counseling, Inp Substance Abuse Facilities
[2024-11-10] MEDS: chlordiazePOXIDE 25 MG CAP PO STA (21:52)
[2024-11-10 21:55] VITALS: BP 126/79; PULSE 67
== END 2024-11-10 21:55 | disposition home or self-care (01) ==
LOC: EC 19:47
DX: F10.239 Alcohol dependence with withdrawal, unspecified (principal); F17.200 Nicotine dependence, unspecified, uncomplicated; Z88.6 Allergy status to analgesic agent; Z88.0 Allergy status to penicillin; Z88.8 Allergy status to other drugs, medicaments and biological substances
CPT/HCPCS: 36415; 99284

== ENCOUNTER 2024-11-13 20:00 | Emergency (ER) | payer OTHER ==
[2024-11-13 20:09] VITALS: RESP 18; TEMP 97.1
--- NOTE | 2024-11-13 20:19 | ED ---
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) Previous Visits for Alcohol Intoxication?: Yes Recent Trauma: Yes Associated Symptoms: denies other symptoms Treatments Prior to Arrival: none Chronic Alcohol Use: Yes - Related Data Home Medications Medication Instructions Recorded Confirmed levETIRAcetam [Keppra] 500 mg PO BID 11/18/24 11/18/24 Allergies Allergy/AdvReac Type Severity Reaction Status Date / Time acetaminophen [From Tylenol] Allergy Unknown Verified 11/27/24 16:24 Penicillins Allergy Rash/Hives/Swelling Verified 11/27/24 16:24 all over body NSAIDS (Non-Steroidal AdvReac Unknown upset Verified 11/27/24 16:24 Anti-Inflamma stomach sertraline HCl [From Zoloft] AdvReac Suicidal/Ag Verified 11/27/24 16:24 ression Review of Systems ROS Statement: Those systems with pertinent positive or pertinent negative responses have been documented in the HPI. ROS Other: All systems not noted in ROS Statement are negative. Past Medical History Past Medical History: Cancer, COPD, Hypertension, Liver Disease, Myocardial Infarction ([place]), Seizure Disorder, Vascular Disorder Additional Past Medical History / Comment(s): constpation, feeling bloated,feeling of fullness, and abdominal pain, feels hungry then over eats then vomits to feel better, LAST SEIZURE - JANUARY 2021, "broken heart syndrome"., elevated liver enzymes, "dislocated disks", hx cervical cancer, seizure Last Myocardial Infarction Date:: 2019 History of Any Multi-Drug Resistant Organisms: None Reported Past Surgical History: Section, Heart Catheterization, Tubal Ligation Additional Past Surgical History / Comment(s): ORIF rt ankle/hardware later removed, exploratory lap, PAIN CLINIC PROCEDURE, BILAT CATARACTS REMOVED WITH LE NS IMPLANTS, procedure to open a vein in left leg-couldn't confirm which leg, partial amputation rt hand middle finger, "procedure to remove cervical cancer" Past Anesthesia/Blood Transfusion Reactions: No Reported Reaction Past Psychological History: Anxiety, Bipolar, Depression, PTSD Smoking Status: Current every day smoker Past Alcohol Use History: Abuse, Daily, Heavy Past Drug Use History: Marijuana - Past Family History Father Family Medical History: Cancer, Prostate Disorder, Pulmonary Embolus Sister(s) Family Medical History: Cancer Brother(s) Family Medical History: Cancer Additional Family Medical History / Comment(s): colon and bladder General Exam General appearance: alert, in no apparent distress Head exam: Present: atraumatic, normocephalic, normal inspection Eye exam: Present: normal appearance, PERRL, EOMI. Absent: scleral icterus, conjunctival injection, periorbital swelling ENT exam: Present: normal exam, mucous membranes moist Neck exam: Present: normal inspection. Absent: tenderness, meningismus, lymphadenopathy Respiratory exam: Present: normal lung sounds bilaterally. Absent: respiratory distress, wheezes, rales, rhonchi, stridor Cardiovascular Exam: Present: regular rate, normal rhythm, normal heart sounds. Absent: systolic murmur, diastolic murmur, rubs, gallop, clicks GI/Abdominal exam: Present: soft, normal bowel sounds. Absent: distended, tenderness, guarding, rebound, rigid Extremities exam: Present: normal inspection, full ROM, normal capillary refill. Absent: tenderness, pedal edema, joint swelling, calf tenderness Back exam: Present: normal inspection Neurological exam: Present: alert, oriented X3, CN II-XII intact Psychiatric exam: Present: normal affect, normal mood Skin exam: Present: warm, dry, intact, normal color. Absent: rash Course Vital Signs 11/13/24 11/13/24 20:04 21:40 Temperature 97.1 F L Pulse Rate 74 70 Respiratory 18 18 Rate Blood Pressure 137/90 136/84 O2 Sat by Pulse 97 99 Oximetry - Reevaluation(s) Reevaluation #1: Medical records reviewed Reevaluation #2: Patient symptoms improved Reevaluation #3: Patient informed of results and questions answered Reevaluation #4: 11/27/24 22:38 Was pt. sent in by a medical professional or institution (, PA, WORSHIP LEADER, urgent care, hospital, or shelter...) When possible be specific @ -no Did you speak to anyone other than the patient for history (EMS, parent, family, police, friend...)? What history was obtained from this source @ -no Did you review nursing and triage notes (agree or disagree)? Why? @ -agree Are old charts reviewed (outside hosp., previous admission, EMS record, old EKG, old radiological studies, urgent care reports/EKG's, shelter records)? Report findings @ -yes Differential Diagnosis (chest pain, altered mental status, abdominal pain women, abdominal pain men, vaginal bleeding, weakness, fever, dyspnea, syncope, headache, dizziness, GI bleed, back pain, seizure, CVA, palpatations, mental health, musculoskeletal)? @ -prior EKG interpreted by me (3pts min.). @ -no X-rays interpreted by me (1pt min.). @ -no CT interpreted by me (1pt min.). @ -no U/S interpreted by me (1pt. min.). @ -no What testing was considered but not performed or refused? (CT, X-rays, U/S, labs)? Why? @ -none What meds were considered but not given or refused? Why? @ -none Did you discuss the management of the patient with other professionals (professionals i.e. , PA, WORSHIP LEADER, lab, RT, psych nurse, rn social work, box coverer hand, teacher, earth science technical officer, casework manager)? Give summary @ -no Was smoking cessation discussed for >3mins.? @ -no Was critical care preformed (if so, how long)? @ -no Were there social determinants of health that impacted care today? How? (Homelessness, low income, unemployed, alcoholism, drug addiction, transportation, low edu. Level, literacy, decrease access to med. care, retirement, rehab)? @ -none Was there de-escalation of care discussed even if they declined (Discuss DNR or withdrawal of care, Hospice)? DNR status @ -no What co-morbidities impacted this encounter? (DM, HTN, Smoking, COPD, CAD, Cancer, CVA, ARF, Chemo, Hep., AIDS, mental health diagnosis, sleep apnea, morbid obesity)? @ -none Was patient admitted / discharged? Hospital course, mention meds given and route, prescriptions, significant lab abnormalities, going to OR and other pertinent info. @ - 58 female to the ER for acute alcohol intoxication, sobering up throughout ER stay anxiety is resolved patient can be discharged home Discharged Undiagnosed new problem with uncertain prognosis? @ -no Drug Therapy requiring intensive monitoring for toxicity (Heparin, Nitro, Insulin, Cardizem)? @ -no Were any procedures done? @ -no Diagnosis/symptom? @ -Alcohol intoxication Acute, or Chronic, or Acute on Chronic? @ -Acute Uncomplicated (without systemic symptoms) or Complicated (systemic symptoms)? @ -Complicated Side effects of treatment? @ -no Exacerbation, Progression, or Severe Exacerbation? @ -exacerbation Poses a threat to life or bodily function? How? (Chest pain, [place], [place], pneumonia, PE, COPD, DKA, ARF, appy, cholecystitis, CVA, Diverticulitis, Homicidal, Suicidal, threat to staff... and all critical care pts) @ -yes alcohol abuse Reevaluation #5: Differential Mental Health Depression, anxiety, bipolar, psychosis, schizophrenia, borderline personality, situational depression, adjustment disorder, behavioral disorder, brain tumor, malingering, substance abuse, encephalopathy, medication reaction, dementia, hypothyroidism, degenerative neurologic disorder, lupus.... This is not meant to be all-inclusive list Medical Decision Making - Medical Decision Making 58 female to ER with anxiety and alcohol intoxication. Patient is in no acute distress here in the ER awake and alert and asking to be discharged Disposition Clinical Impression: Altered mental status, Alcohol intoxication Disposition: HOME SELF-CARE Condition: Fair Instructions (If sedation given, give patient instructions): Alcohol Intoxication (ED) Is patient prescribed a controlled substance at d/c from ED?: No Referrals: Vipin Vo [NON-STAFF] - As Soon As Possible Theodore Arceo MD [Primary Care Provider] - 1-2 days Forms: AA Linda Mccormick, Outpatient Counseling, In Substance Abuse Facilities
[2024-11-13 21:44] VITALS: BP 136/84; PULSE 70
== END 2024-11-13 21:44 | disposition home or self-care (01) ==
LOC: EC 20:00
DX: R41.82 Altered mental status, unspecified (principal); F10.129 Alcohol abuse with intoxication, unspecified; F17.200 Nicotine dependence, unspecified, uncomplicated; Z88.0 Allergy status to penicillin; Z88.6 Allergy status to analgesic agent; Z88.8 Allergy status to other drugs, medicaments and biological substances; Y90.9 Presence of alcohol in blood, level not specified
CPT/HCPCS: 99284

== ENCOUNTER 2024-11-15 18:21 | Emergency (ER) | payer OTHER ==
--- NOTE | 2024-11-15 18:25 | ED ---
Chest Pain HPI - General Stated Complaint: Chest pain/ETOH Time Seen by Provider: 11/15/24 18:35 - History of Present Illness Initial Comments: 58 year old female presents to the emergency department reporting chest pain and alcohol intoxication. Patient well-known to the ER for multiple visits for same complaint. Patient presents stating that she has substernal chest pain. She cannot provide much history as she is significantly intoxicated. States her fianc called EMS. - Related Data Home Medications Medication Instructions Recorded Confirmed levETIRAcetam [Keppra] 500 mg PO BID 11/18/24 11/18/24 Allergies Allergy/AdvReac Type Severity Reaction Status Date / Time acetaminophen [From Tylenol] Allergy Unknown Verified 12/09/24 23:18 Penicillins Allergy Rash/Hives/Swelling Verified 12/09/24 23:18 all over body NSAIDS (Non-Steroidal AdvReac Unknown upset Verified 12/09/24 23:18 Anti-Inflamma stomach sertraline HCl [From Zoloft] AdvReac Suicidal/Ag Verified 12/09/24 23:18 ression Review of Systems ROS Statement: Those systems with pertinent positive or pertinent negative responses have been documented in the HPI. ROS Other: All systems not noted in ROS Statement are negative. Past Medical History Past Medical History: Cancer, COPD, Hypertension, Liver Disease, Myocardial Infarction ([place]), Seizure Disorder, Vascular Disorder Additional Past Medical History / Comment(s): constpation, feeling bloate d,feeling of fullness, and abdominal pain, feels hungry then over eats then vomits to feel better, LAST SEIZURE - JANUARY 2021, "broken heart syndrome"., elevated liver enzymes, "dislocated disks", hx cervical cancer, seizure Last Myocardial Infarction Date:: 2019 History of Any Multi-Drug Resistant Organisms: None Reported Past Surgical History: Section, Heart Catheterization, Tubal Ligation Additional Past Surgical History / Comment(s): ORIF rt ankle/hardware later removed, exploratory lap, PAIN CLINIC PROCEDURE, BILAT CATARACTS REMOVED WITH LENS IMPLANTS, procedure to open a vein in left leg-couldn't confirm which leg, partial amputation rt hand middle finger, "procedure to remove cervical cancer" Past Anesthesia/Blood Transfusion Reactions: No Reported Reaction Past Psychological History: Anxiety, Bipolar, Depression, PTSD Smoking Status: Current every day smoker Past Alcohol Use History: Abuse, Daily, Heavy Past Drug Use History: Marijuana - Past Family History Father Family Medical History: Cancer, Prostate Disorder, Pulmonary Embolus Sister(s) Family Medical History: Cancer Brother(s) Family Medical History: Cancer Additional Family Medical History / Comment(s): colon and bladder General Exam Limitations: altered mental status General appearance: alert, appears intoxicated Head exam: Present: atraumatic, normocephalic, normal inspection Eye exam: Present: normal appearance, PERRL, EOMI. Absent: scleral icterus, conjunctival injection, periorbital swelling ENT exam: Present: normal exam, mucous membranes moist Neck exam: Present: normal inspection. Absent: tenderness, meningismus, lymphadenopathy Respiratory exam: Present: normal lung sounds bilaterally. Absent: respiratory distress, wheezes, rales, rhonchi, stridor Cardiovascular Exam: Present: regular rate, normal rhythm, normal heart sounds. Absent: systolic murmur, diastolic murmur, rubs, gallop, clicks GI/Abdominal exam: Present: soft, normal bowel sounds. Absent: distended, tenderness, guarding, rebound, rigid Extremities exam: Present: normal inspection, full ROM, normal capillary refill. Absent: tenderness, pedal edema, joint swelling, calf tenderness Back exam: Present: normal inspection Neurological exam: Present: alert, oriented X3, CN II-XII intact Psychiatric exam: Present: normal affect, normal mood Skin exam: Present: warm, dry, intact, normal color. Absent: rash Course Vital Signs 11/15/24 18:31 Temperature 98.2 F Pulse Rate 82 Respiratory 20 Rate Blood Pressure 134/96 O2 Sat by Pulse 95 Oximetry Chest Pain MDM - MDM Was pt. sent in by a medical professional or institution (, PA, DIRECTOR OF GROUP SALES, urgent care, hospital, or usp...) When possible be specific @ -No Did you speak to anyone other than the patient for history (EMS, parent, family, police, friend...)? What history was obtained from this source @ -Spoke with EMS for history Did you review nursing and triage notes (agree or disagree)? Why? @ -I reviewed and agree with nursing and triage notes Were old charts reviewed (outside hosp., previous admission, EMS record, old EKG, old radiological studies, urgent care reports/EKG's, usp records)? Report findings @ -No old charts were reviewed Differential Diagnosis (chest pain, altered mental status, abdominal pain women, abdominal pain men, vaginal bleeding, weakness, fever, dyspnea, syncope, headache, dizziness, GI bleed, back pain, seizure, CVA, palpatations, mental health, musculoskeletal)? @ -Differential Chest Pain: Stable Angina, Unstable Angina, STEMI, NSTEMI Aortic Dissection, Pneumothorax, Musculoskeletal, Esophageal Spasm GERD, Cholecystitis, Pancreatitis, Zoster, this is not meant to be an all-inclusive list. EKG interpreted by me (3pts min.). @ -Ordered but not completed X-rays interpreted by me (1pt min.). @ -None done CT interpreted by me (1pt min.). @ -None done U/S interpreted by me (1pt. min.). @ -None done What testing was considered but not performed or refused? (CT, X-rays, U/S, labs)? Why? @ -EKG however patient left without it being completed What meds were considered but not given or refused? Why? @ -None Did you discuss the management of the patient with other professionals (professionals i.e. , PA, DIRECTOR OF GROUP SALES, lab, RT, psych nurse, social service director, embossing press operator apprentice, teacher, veterans service officer, hospice case manager)? Give summary @ -No Was smoking cessation discussed for >3mins.? @ -No Was critical care preformed (if so, how long)? @ -No Were there social determinants of health that impacted care today? How? (Homelessness, low income, unemployed, alcoholism, drug addiction, transportation, low edu. Level, literacy, decrease access to med. care, usp, rehab)? @ -No Was there de-escalation of care discussed even if they declined (Discuss DNR or withdrawal of care, Hospice)? DNR status @ -No What co-morbidities impacted this encounter? (DM, HTN, Smoking, COPD, CAD, Cancer, CVA, ARF, Chemo, Hep., AIDS, mental health diagnosis, sleep apnea, morbid obesity)? @ -Chronic alcohol use Was patient admitted / discharged? Hospital course, mention meds given and route, prescriptions, significant lab abnormalities, going to OR and other pertinent info. @ -Upon arrival patient seen and evaluated in [facility]. I did order an EKG and a bat. Patient does leave the emergency department before EKG is performed. Undiagnosed new problem with uncertain prognosis? @ -No Drug Therapy requiring intensive monitoring for toxicity (Heparin, Nitro, Insulin, Cardizem)? @ -No Were any procedures done? @ -No Diagnosis/symptom? @ -Acute chest pain, acute alcohol intoxication Acute, or Chronic, or Acute on Chronic? @ -Acute Uncomplicated (without systemic symptoms) or Complicated (systemic symptoms)? @ -Complicated Side effects of treatment? @ -No Exacerbation, Progression, or Severe Exacerbation? @ -No Poses a threat to life or bodily function? How? (Chest pain, [place], [place], pneumonia, PE, COPD, DKA, ARF, appy, cholecystitis, CVA, Diverticulitis, Homicidal, Suicidal, threat to staff... and all critical care pts) @ -Unknown Disposition Clinical Impression: Chest pain, Alcohol intoxication Disposition: HOME SELF-CARE Condition: Stable Instructions (If sedation given, give patient instructions): Chest Pain (ED) Additional Instructions: STOP DRINKING ALCOHOL. Is patient prescribed a controlled substance at d/c from ED?: No Referrals: Theodore Arceo MD [Primary Care Provider] - 1-2 days
[2024-11-15 18:34] VITALS: BP 134/96; PULSE 82; RESP 20; TEMP 98.2
== END 2024-11-15 21:38 | disposition home or self-care (01) ==
LOC: EC 18:21
DX: R07.9 Chest pain, unspecified (principal); F10.129 Alcohol abuse with intoxication, unspecified; F17.200 Nicotine dependence, unspecified, uncomplicated; Z88.0 Allergy status to penicillin; Z88.6 Allergy status to analgesic agent; Z88.8 Allergy status to other drugs, medicaments and biological substances; Y90.9 Presence of alcohol in blood, level not specified
CPT/HCPCS: 82075; 93005; 99285

== ENCOUNTER 2024-11-16 20:02 | Emergency (ER) | payer OTHER ==
[2024-11-16 20:09] VITALS: TEMP 97.9
--- NOTE | 2024-11-16 20:32 | ED ---
Alcohol HPI - General Chief Complaint: Alcohol Stated Complaint: ETOH Time Seen by Provider: 11/16/24 20:04 Source: patient, EMS Mode of arrival: EMS Limitations: no limitations - History of Present Illness Initial Comments: 58-year-old female presents to the emergency department with alcohol abuse. States to me that her fianc called EMS. Patient has a history of daily alcohol abuse. She denies any issues when she sees me. Patient is visibly intoxicated. Denies any injuries. No chest pain today or shortness of breath. No nausea or vomiting. Patient states that she wants to get sober. No other alleviating, precipitating or modifying factors - Related Data Home Medications Medication Instructions Recorded Confirmed levETIRAcetam [Keppra] 500 mg PO BID 11/18/24 11/18/24 Allergies Allergy/AdvReac Type Severity Reaction Status Date / Time acetaminophen [From Tylenol] Allergy Unknown Verified 12/09/24 23:18 Penicillins Allergy Rash/Hives/Swelling Verified 12/09/24 23:18 all over body NSAIDS (Non-Steroidal AdvReac Unknown upset Verified 12/09/24 23:18 Anti-Inflamma stomach sertraline HCl [From Zoloft] AdvReac Suicidal/Ag Verified 12/09/24 23:18 ression Review of Systems ROS Statement: Those systems with pertinent positive or pertinent negative responses have been documented in the HPI. ROS Other: All systems not noted in ROS Statement are negative. Past Medical History Past Medical History: Cancer, COPD, Hypertension, Liver Disease, Myocardial Infarction ([place]), Seizure Disorder, Vascular Disorder Additional Past Medical History / Comment(s): constpation, feeling bloated,feeling of fullness, and abdominal pain, feels hungry then over eats then vomits to feel better, LAST SEIZURE - JANUARY 2021, "broken heart syndrome"., elevated liver enzymes, "dislocated disks", hx cervical cancer, seizure Last Myocardial Infarction Date:: 2019 History of Any Multi-Drug Resistant Organisms: None Reported Past Surgical History: Section, Heart Catheterization, Tubal Ligation Additional Past Surgical History / Comment(s): ORIF rt ankle/hardware later removed, exploratory lap, PAIN CLINIC PROCEDURE, BILAT CATARACTS REMOVED WITH LENS IMPLANTS, procedure to open a vein in left leg-couldn't confirm which leg, partial amputation rt hand middle finger, "procedure to remove cervical cancer" Past Anesthesia/Blood Transfusion Reactions: No Reported Reaction Past Psychological History: Anxiety, Bipolar, Depression, PTSD Smoking Status: Current every day smoker Past Alcohol Use History: Abuse, Daily, Heavy Past Drug Use History: Marijuana - Past Family History Father Family Medical History: Cancer, Prostate Disorder, Pulmonary Embolus Sister(s) Family Medical History: Cancer Brother(s) Family Medical History: Cancer Additional Family Medical History / Comment(s): colon and bladder General Exam Limitations: no limitations General appearance: alert, appears intoxicated Head exam: Present: atraumatic, normocephalic, normal inspection Eye exam: Present: normal appearance, PERRL, EOMI. Absent: scleral icterus, conjunctival injection, periorbital swelling ENT exam: Present: normal exam, mucous membranes moist Neck exam: Present: normal inspection. Absent: tenderness, meningismus, lymphadenopathy Respiratory exam: Present: normal lung sounds bilaterally. Absent: respiratory distress, wheezes, rales, rhonchi, stridor Cardiovascular Exam: Present: regular rate, normal rhythm, normal heart sounds. Absent: systolic murmur, diastolic murmur, rubs, gallop, clicks GI/Abdominal exam: Present: soft, normal bowel sounds. Absent: distended, tenderness, guarding, rebound, rigid Extremities exam: Present: normal inspection, full ROM, normal capillary refill. Absent: tenderness, pedal edema, joint swelling, calf tenderness Back exam: Present: normal inspection Neurological exam: Present: alert, oriented X3, CN II-XII intact Psychiatric exam: Present: normal affect, normal mood Skin exam: Present: warm, dry, intact, normal color. Absent: rash Course Vital Signs 11/16/24 11/16/24 20:03 21:33 Temperature 97.9 F Pulse Rate 82 68 Respiratory 18 16 Rate Blood Pressure 162/87 140/76 O2 Sat by Pulse 97 97 Oximetry Medical Decision Making - Medical Decision Making Was pt. sent in by a medical professional or institution (, PA, ELIGIBILITY MANAGER, urgent care, hospital, or skilled nursing...) When possible be specific @ -No Did you speak to anyone other than the patient for history (EMS, parent, family, police, friend...)? What history was obtained from this source @ -Spoke with EMS for history Did you review nursing and triage notes (agree or disagree)? Why? @ -I reviewed and agree with nursing and triage notes Were old charts reviewed (outside hosp., previous admission, EMS record, old EKG, old radiological studies, urgent care reports/EKG's, skilled nursing records)? Report findings @ -No old charts were reviewed Differential Diagnosis (chest pain, altered mental status, abdominal pain women, abdominal pain men, vaginal bleeding, weakness, fever, dyspnea, syncope, headache, dizziness, GI bleed, back pain, seizure, CVA, palpatations, mental health, musculoskeletal)? @ -Alcohol intoxication, chest pain, shortness of breath, depression EKG interpreted by me (3pts min.). @ -Not done X-rays interpreted by me (1pt min.). @ -None done CT interpreted by me (1pt min.). @ -None done U/S interpreted by me (1pt. min.). @ -None done What testing was considered but not performed or refused? (CT, X-rays, U/S, labs)? Why? @ -None What meds were considered but not given or refused? Why? @ -None Did you discuss the management of the patient with other professionals (professionals i.e. , PA, ELIGIBILITY MANAGER, lab, RT, psych nurse, rn social services, alto singer, teacher, space operations officer, manager of case)? Give summary @ -No Was smoking cessation discussed for >3mins.? @ -No Was critical care preformed (if so, how long)? @ -No Were there social determinants of health that impacted care today? How? (Homelessness, low income, unemployed, alcoholism, drug addiction, transportation, low edu. Level, literacy, decrease access to med. care, fdc, rehab)? @ -No Was there de-escalation of care discussed even if they declined (Discuss DNR or withdrawal of care, Hospice)? DNR status @ -No What co-morbidities impacted this encounter? (DM, HTN, Smoking, COPD, CAD, Cancer, CVA, ARF, Chemo, Hep., AIDS, mental health diagnosis, sleep apnea, morbid obesity)? @ -Alcohol abuse Was patient admitted / discharged? Hospital course, mention meds given and route, prescriptions, significant lab abnormalities, going to OR and other pertinent info. @ -Upon arrival patient seen and evaluated in room 12. Thorough history and physical exam was performed. Patient is allowed to sober up in the emergency department. We do call her safe will ride when she is clinically sober. I did give her all of the information for rehab. Patient discharged in stable condition Undiagnosed new problem with uncertain prognosis? @ -No Drug Therapy requiring intensive monitoring for toxicity (Heparin, Nitro, Insulin, Cardizem)? @ -No Were any procedures done? @ -No Diagnosis/symptom? @ -Acute alcohol intoxication, chronic alcoholism Acute, or Chronic, or Acute on Chronic? @ -Acute on chronic Uncomplicated (without systemic symptoms) or Complicated (systemic symptoms)? @ -Complicated Side effects of treatment? @ -No Exacerbation, Progression, or Severe Exacerbation? @ -No Poses a threat to life or bodily function? How? (Chest pain, [place], [place], pneumonia, PE, COPD, DKA, ARF, appy, cholecystitis, CVA, Diverticulitis, Homicidal, Suicidal, threat to staff... and all critical care pts) @ -No Disposition Clinical Impression: Alcohol intoxication Disposition: HOME SELF-CARE Condition: Stable Instructions (If sedation given, give patient instructions): Alcohol Intoxication (ED) Additional Instructions: STOP DRINKING. YOU NEED TO TAKE YOURSELF TO REHAB Is patient prescribed a controlled substance at d/c from ED?: No Referrals: Theodore Arceo MD [Primary Care Provider] - 1-2 days Time of Disposition: 20:32
[2024-11-16 21:34] VITALS: BP 140/76; PULSE 68; RESP 16
== END 2024-11-16 21:34 | disposition home or self-care (01) ==
LOC: EC 20:02
DX: F10.129 Alcohol abuse with intoxication, unspecified (principal); F17.200 Nicotine dependence, unspecified, uncomplicated; Z88.6 Allergy status to analgesic agent; Z88.0 Allergy status to penicillin; Z88.8 Allergy status to other drugs, medicaments and biological substances
CPT/HCPCS: 82075; 99284

== ENCOUNTER 2024-11-17 18:51 | Observation (INO) | payer OTHER ==
--- NOTE | 2024-11-17 19:49 | ED ---
General Adult HPI - General Chief complaint: Alcohol Stated complaint: etoh Time Seen by Provider: 11/17/24 18:55 Source: patient, EMS, RN notes reviewed, old records reviewed Mode of arrival: EMS Limitations: altered mental status - History of Present Illness Initial comments: This is a 58-year-old female presents to the emergency department end to me she complained that she is anxious. I asked if she had chest pain she denied it however it was documented in the nursing notes that the patient did state earlier that she had some chest pain. Patient denies any difficulty breathing or palpitations. Patient has any fever chills. Patient states she is anxious because she is going to go to rehab on Wednesday. Patient denies any injury or trauma. - Related Data Previous Rx's Medication Instructions Recorded Aspirin 81 mg PO DAILY 90 Days #90 tab 09/16/24 levETIRAcetam [Keppra] 500 mg PO Q12HR 90 Days #180 tab 09/30/24 chlordiazePOXIDE HCl [Librium] 25 mg PO TID 3 Days #9 capsule 11/06/24 Allergies Allergy/AdvReac Type Severity Reaction Status Date / Time acetaminophen [From Tylenol] Allergy Unknown Verified 11/14/24 19:56 Penicillins Allergy Rash/Hives/Swelling Verified 11/14/24 19:56 all over body NSAIDS (Non-Steroidal AdvReac Unknown upset Verified 11/14/24 19:56 Anti-Inflamma stomach sertraline HCl [From Zoloft] AdvReac Suicidal/Ag Verified 11/14/24 19:56 ression Review of Systems ROS Statement: Those systems with pertinent positive or pertinent negative responses have been documented in the HPI. ROS Other: All systems not noted in ROS Statement are negative. Past Medical History Past Medical History: Cancer, COPD, Hypertension, Liver Disease, Myocardial Infarction ([place]), Seizure Disorder, Vascular Disorder Additional Past Medical History / Comment(s): constpation, feeling bloated,feeling of fullness, and abdominal pain, feels hungry then over eats then vomits to feel better, LAST SEIZURE - JANUARY 2021, "broken heart syndrome"., elevated liver enzymes, "dislocated disks", hx cervical cancer, etoh abuse Last Myocardial Infarction Date:: 2019 History of Any Multi-Drug Resistant Organisms: None Reported Past Surgical History: Section, Heart Catheterization, Tubal Ligation Additional Past Surgical History / Comment(s): ORIF rt ankle/hardware later removed, exploratory lap, PAIN CLINIC PROCEDURE, BILAT CATARACTS REMOVED WITH LENS IMPLANTS, procedure to open a vein in left leg-couldn't confirm which leg, partial amputation rt hand middle finger, "procedure to remove cervical cancer" Past Anesthesia/Blood Transfusion Reactions: No Reported Reaction Past Psychological History: Anxiety, Bipolar, Depression, PTSD Smoking Status: Current every day smoker Past Alcohol Use History: Abuse, Daily, Heavy Past Drug Use History: Marijuana - Past Family History Father Family Medical History: Cancer, Prostate Disorder, Pulmonary Embolus Sister(s) Family Medical History: Cancer Brother(s) Family Medical History: Cancer Additional Family Medical History / Comment(s): colon and bladder General Exam - General Exam Comments Initial Comments: GENERAL: Patient is well-developed and well-nourished. Patient is nontoxic and well-h ydrated and is in no acute distress. Patient appears intoxicated ENT: Neck is soft and supple. No significant lymphadenopathy is noted. Oropharynx is clear. Moist mucous membranes. Neck has full range of motion without eliciting any pain. EYES: The sclera were anicteric and conjunctiva were pink and moist. Extraocular movements were intact and pupils were equal round and reactive to light. Eyelids were unremarkable. PULMONARY: Unlabored respirations. Good breath sounds bilaterally. No audible rales rhonchi or wheezing was noted. CARDIOVASCULAR: There is a regular rate and rhythm without any murmurs gallops or rubs. ABDOMEN: Soft and nontender with normal bowel sounds. SKIN: Skin is clear with no lesions or rashes and otherwise unremarkable. NEUROLOGIC: Patient is alert and oriented x3. Cranial nerves II through XII are grossly intact. Motor and sensory are also intact. Normal speech, volume and content. Symmetrical smile. MUSCULOSKELETAL: Normal extremities with adequate strength and full range of motion. LYMPHATICS: No significant lymphadenopathy is noted PSYCHIATRIC: Normal psychiatric evaluation. Limitations: altered mental status Course Vital Signs 11/17/24 18:53 Temperature 98.5 F Pulse Rate 98 Respiratory 18 Rate Blood Pressure 143/76 O2 Sat by Pulse 97 Oximetry Medical Decision Making - Medical Decision Making EKG is interpreted by myself and EKG shows a sinus rhythm at 68 bpm FL 169 QRS of 86 QT of 408 QTc is 425. Patient's EKG shows no ST segment elevation or depression. Was pt. sent in by a medical professional or institution ([facility], [facility], urgent care, hospital, or usp...) When possible be specific @ -No Did you speak to anyone other than the patient for history (EMS, parent, family, police, friend...)? What history was obtained from this source @ -No Did you review nursing and triage notes (agree or disagree)? Why? @ -I reviewed and agree with nursing and triage notes Were old charts reviewed (outside hosp., previous admission, EMS record, old EKG, old radiological studies, urgent care reports/EKG's, usp records)? Report findings @ -No old charts were reviewed Differential Diagnosis? @ -Differential Chest Pain: Stable Angina, Unstable Angina, STEMI, NSTEMI Aortic Dissection, Pneumothorax, Musculoskeletal, Esophageal Spasm GERD, Cholecystitis, Pancreatitis, Zoster, this is not meant to be an all-inclusive list. EKG interpreted by me (3pts min.). @ -As above X-rays interpreted by me (1pt min.). @ -Chest x-ray shows no acute abnormality CT interpreted by me (1pt min.). @ -None done U/S interpreted by me (1pt. min.). @ -None done What testing was considered but not performed or refused? (CT, X-rays, U/S, labs)? Why? @ -None What meds were considered but not given or refused? Why? @ -None Did you discuss the management of the patient with other professionals (professionals i.e. [facility], [facility], lab, RT, psych nurse, sexual assault social worker, specialty food products supervisor, te acher, patrol community service officer, pillowcase folder)? Give summary @ -I spoke with Dr. Arceo he agreed to admit the patient Was smoking cessation discussed for >3mins.? @ -No Was critical care preformed (if so, how long)? @ -No Were there social determinants of health that impacted care today? How? (Homelessness, low income, unemployed, alcoholism, drug addiction, transportation, low edu. Level, literacy, decrease access to med. care, [facility], rehab)? @ -No Was there de-escalation of care discussed even if they declined (Discuss DNR or withdrawal of care, Hospice)? DNR status @ -No What co-morbidities impacted this encounter? (DM, HTN, Smoking, COPD, CAD, Cancer, CVA, ARF, Chemo, Hep., AIDS, mental health diagnosis, sleep apnea, morbid obesity)? @ -None Was patient admitted / discharged? Hospital course, mention meds given and route, prescriptions, significant lab abnormalities, going to OR and other pert inent info. @ -Patient complained of chest pain to the nursing staff and so she will be kept overnight to rule out. Patient also was intoxicated so we put on a Ativan protocol for withdrawal Undiagnosed new problem with uncertain prognosis? @ -No Drug Therapy requiring intensive monitoring for toxicity (Heparin, Nitro, Insulin, Cardizem)? @ -No Were any procedures done? @ -No Diagnosis/symptom? @ -Wrist pain Acute, or Chronic, or Acute on Chronic? @ -Acute Uncomplicated (without systemic symptoms) or Complicated (systemic symptoms)? @ -Comp Side effects of treatment? @ -No Exacerbation, Progression, or Severe Exacerbation? @ -No Poses a threat to life or bodily function? How? (Chest pain, [place], [place], pneumonia, PE, COPD, DKA, ARF, appy, cholecystitis, CVA, Diverticulitis, Homicidal, Suicidal, threat to staff... and all critical care pts) @ -Yes this can lead to an OK and endorgan dysfunction Diagnosis/symptom? @ -Alcohol intoxication Acute, or Chronic, or Acute on Chronic? @ -Acute Uncomplicated (without systemic symptoms) or Complicated (systemic symptoms)? @ -Complicated Side effects of treatment? @ -None Exacerbation, Progression, or Severe Exacerbation] @ -No Poses a threat to life or bodily function? @ -Yes this can lead to withdrawal symptoms and seizure and possible - Lab Data Result diagrams: 11/17/24 20:06 11/17/24 20:06 Lab Results 11/17/24 11/17/24 11/17/24 Range/Units 20:06 20:06 20:11 WBC 4.27 L (4.50-10.00) 10*3/uL RBC 4.27 (4.10-5.20) 10*6/uL Hgb 14.0 (12.0-15.0) g/dL Hct 39.9 (37.2-46.3) % MCV 93.4 (80.0-97.0) fL MCH 32.8 H (27.0-32.0) pg MCHC 35.1 (32.0-37.0) g/dL Plt Count 318 (140-440) 10*3/uL MPV 9.1 L (9.5-12.2) fL Immature Gran % (Auto) 0.2 % Neutrophils % 34.7 % Lymphocytes % 42.4 % Monocytes % 20.1 % Eosinophils % 1.2 % Basophils % 1.4 % Immature Gran # 0.01 (0.00-0.04) 10*3/uL Neutrophils # 1.48 L (1.80-7.70) 10*3/uL Lymphocytes # 1.81 (0.90-5.00) 10*3/uL Monocytes # 0.86 (0.20-1.00) 10*3/uL Eosinophils # 0.05 (0.04-0.35) 10*3/uL Basophils # 0.06 (0.00-0.10) 10*3/uL Sodium 140 (137-145) mmol/L Potassium 3.8 (3.5-5.1) mmol/L Chloride 104 (98-107) mmol/L Carbon Dioxide 23 (22-30) mmol/L Anion Gap 13 mmol/L BUN 4 L (7-17) mg/dL Creatinine 0.43 L (0.52-1.04) mg/dL Est GFR (CKD-EPI)AfAm >90 (>60 ml/min/1.73 sqM) Est GFR (CKD-EPI)NonAf >90 (>60 ml/min/1.73 sqM) Glucose 82 (74-99) mg/dL Calcium 8.6 (8.4-10.2) mg/dL Magnesium 1.7 (1.6-2.3) mg/dL Total Bilirubin 0.5 (0.2-1.3) mg/dL AST 61 H (14-36) U/L ALT 21 (4-34) U/L Alkaline Phosphatase 82 (38-126) U/L Troponin I <0.012 (0.000-0.034) ng/mL Total Protein 6.5 (6.3-8.2) g/dL Albumin 4.1 (3.5-5.0) g/dL Lipase 125 (23-300) U/L Serum Alcohol 281 H* mg/dL Disposition Clinical Impression: Alcohol intoxication, Chest pain Disposition: ADMITTED IP TO THIS HOSP Referrals: Theodore Arceo MD [Primary Care Provider] - 1-2 days Forms: [facility], Outpatient Counseling, In Substance Abuse Facilities Time of Disposition: 21:06
[2024-11-17 20:19] LABS: Basophils # (A) 0.06 10*3/uL (0.00-0.10); Basophils % (A) 1.4 %; Eosinophils # (A) 0.05 10*3/uL (0.04-0.35); Eosinophils % (A) 1.2 %; HCT 39.9 % (37.2-46.3); Lymphocytes # (A) 1.81 10*3/uL (0.90-5.00); Lymphocytes % (A) 42.4 %; MCH 32.8 pg (27.0-32.0); MCHC 35.1 g/dL (32.0-37.0); MCV 93.4 fL (80.0-97.0); Mean Platelet Volume 9.1 fL (9.5-12.2); Monocytes # (A) 0.86 10*3/uL (0.20-1.00); Monocytes % (A) 20.1 %; Neutrophils # (A) 1.48 10*3/uL (1.80-7.70); Neutrophils % (A) 34.7 %; Platelet Count 318 10*3/uL (140-440); RBC 4.27 10*6/uL (4.10-5.20); RDW 13.8 % (11.5-14.5); WBC 4.27 10*3/uL (4.50-10.00)
[2024-11-17] MEDS: SODIUM CHLORIDE 0.9% 1,000 ML IV ONE (20:22)
[2024-11-17 21:01] LABS: ALT 21 U/L (4-34); AST 61 U/L (14-36); African American GFR (CKD) >90 (>60 ml/min/1.73 sqM); Albumin 4.1 g/dL (3.5-5.0); Alkaline Phosphatase 82 U/L (38-126); Anion Gap 13 mmol/L; Blood Urea Nitrogen 4 mg/dL (7-17); Calcium 8.6 mg/dL (8.4-10.2); Carbon Dioxide 23 mmol/L (22-30); Chloride 104 mmol/L (98-107); Glucose 82 mg/dL (74-99); Lipase 125 U/L (23-300); Magnesium 1.7 mg/dL (1.6-2.3); Non-African American GFR(CKD) >90 (>60 ml/min/1.73 sqM); Potassium 3.8 mmol/L (3.5-5.1); Sodium 140 mmol/L (137-145); Total Bilirubin 0.5 mg/dL (0.2-1.3); Total Protein 6.5 g/dL (6.3-8.2)
[2024-11-17 21:04] LABS: Alcohol 281 mg/dL
[2024-11-17] MEDS ORDERED: NITROGLYCERIN SL TABS 0.4 MG TAB SUBLINGUAL PRN (21:06)
[2024-11-17] MEDS ORDERED: LORazepam 1 MG/0.5 ML VIAL IV PRN ×3 (21:08)
[2024-11-17] MEDS: ASPIRIN 81 MG PO STA (21:30)
[2024-11-17] MEDS: levETIRAcetam 500 MG TAB PO STA (22:57)
[2024-11-17] MEDS: LORazepam 1 MG TAB PO PRN (22:57)
[2024-11-17] MEDS: NITROGLYCERIN OINT 1 INCH/GM PACKET TOPICAL SCH (23:55)
--- NOTE | 2024-11-18 10:09 | P.HPIM ---
History of Present Illness H&P Date: 11/18/24 Zuri Santo, is a 58-year-old female presented to [facility] emergency room with a chief complaint of chest pain. Patient had evidence of alcohol intoxication on presentation. She was evaluated in the emergency room vital examination on presentation revealed a temperature of 98.5 pulse 98 respiration 18 blood pressure 143/76 pulse ox 97% on room air Laboratory data reveals white blood count of 4.27 hemoglobin 14.0 platelet count 318 BUN 4 creatinine 0.43 AST 61 ALT 21 alkaline phosphatase 82 troponin 0.012 serum alcohol level 281 lipase 125 Testing in the emergency room revealed EKG revealed sinus rhythm with right ventricular conduction delay. Chest x-ray was done on this visit however patient was in emergency room 3 days prior and she had a chest x-ray on 11/14/2024 which revealed no acute pulmonary process. Patient was admitted to medical floor for further evaluation and treatment, cardiology consultation was requested in regard to chest pain. Past medical history is significant for history of head trauma as a teenager, history of seizure disorder, history of hypertension, history of hyperlipidemia, patient denies any previous history of coronary artery disease angioplasty or stent placement she denies any previous history of congestive heart failure On review of systems patient is alert slightly confused in no apparent distress, there is no fever or chills no headache or dizziness no chest pain at rest no shortness of breath no cough no nausea or vomiting no abdominal pain no diarrhea no blood in the stools no burning with urination no frequency or urgency and no hematuria. Past Medical History Past Medical History: Cancer, COPD, Hypertension, Liver Disease, Myocardial Infarction ([place]), Seizure Disorder, Vascular Disorder Additional Past Medical History / Comment(s): constpation, feeling bloated,feeling of fullness, and abdominal pain, feels hungry then over eats then vomits to feel better, LAST SEIZURE - JANUARY 2021, "broken heart syndrome"., elevated liver enzymes, "dislocated disks", hx cervical cancer, etoh abuse Last Myocardial Infarction Date:: 2019 History of Any Multi-Drug Resistant Organisms: None Reported Past Surgical History: Section, Heart Catheterization, Tubal Ligation Additional Past Surgical History / Comment(s): ORIF rt ankle/hardware later stan rufino, exploratory lap, PAIN CLINIC PROCEDURE, BILAT CATARACTS REMOVED WITH LENS IMPLANTS, procedure to open a vein in left leg-couldn't confirm which leg, partial amputation rt hand middle finger, "procedure to remove cervical cancer" Past Anesthesia/Blood Transfusion Reactions: No Reported Reaction Past Psychological History: Anxiety, Bipolar, Depression, PTSD Smoking Status: Current every day smoker Past Alcohol Use History: Abuse, Daily, Heavy Past Drug Use History: Marijuana - Past Family History Father Family Medical History: Cancer, Prostate Disorder, Pulmonary Embolus Sister(s) Family Medical History: Cancer Brother(s) Family Medical History: Cancer Additional Family Medical History / Comment(s): colon and bladder Medications and Allergies Home Medications Medication Instructions Recorded Confirmed Type Aspirin 81 mg PO DAILY 90 Days #90 tab 09/16/24 10/26/24 Rx levETIRAcetam [Keppra] 500 mg PO Q12HR 90 Days #180 tab 09/30/24 10/26/24 Rx chlordiazePOXIDE HCl [Librium] 25 mg PO TID 3 Days #9 capsule 11/06/24 Rx Allergies Allergy/AdvReac Type Severity Reaction Status Date / Time acetaminophen [From Tylenol] Allergy Unknown Verified 11/14/24 19:56 Penicillins Allergy Rash/Hives/Swelling Verified 11/14/24 19:56 all over body NSAIDS (Non-Steroidal AdvReac Unknown upset Verified 11/14/24 19:56 Anti-Inflamma stomach sertraline HCl [From Zoloft] AdvReac Suicidal/Ag Verified 11/14/24 19:56 ression Physical Exam Vitals: Vital Signs Temp Pulse Resp BP Pulse Ox 11/18/24 08:27 70 16 11/18/24 05:01 97.9 F 95 18 145/80 96 11/17/24 22:59 99 18 127/90 98 11/17/24 18:53 98.5 F 98 18 143/76 97 Intake and Output 11/17/24 11/18/24 11/18/24 22:59 06:59 14:59 Other: Weight 47.627 kg In general patient is alert and oriented x 3 in no distress HEENT head normocephalic and atraumatic Neck is supple no JVD no goiter no lymphadenopathy no carotid bruit Chest examination is clear to auscultation no crackles no wheezing Cardiac exam reveals regular heart sounds S1 and S2 no gallops no murmurs Abdomen is soft nontender no organomegaly with normal bowel sounds Extremity exam reveals no edema no cyanosis or clubbing Neurological examination reveals no gross focal deficits Results CBC & Chem 7: 11/17/24 20:06 11/17/24 20:06 Labs: Abnormal Lab Results - Last 24 Hours (Table) 11/17/24 11/17/24 Range/Units 20:06 20:06 WBC 4.27 L (4.50-10.00) 10*3/uL MCH 32.8 H (27.0-32.0) pg MPV 9.1 L (9.5-12.2) fL Neutrophils # 1.48 L (1.80-7.70) 10*3/uL BUN 4 L (7-17) mg/dL Creatinine 0.43 L (0.52-1.04) mg/dL AST 61 H (14-36) U/L Serum Alcohol 281 H* mg/dL Assessment and Plan Plan: Episode of chest pain Alcohol intoxication Underlying history of hypertension History of hyperlipidemia Underlying history of seizure disorder Remote history of head trauma Underlying history of tobacco abuse Chronic history of excessive alcohol use At this time patient was seen and examined Medications reviewed and reordered Serial EKG and cardiac enzymes ordered EchoCardiogram ordered cardiology consultation requested Patient was counseled in length in regard to alcohol and smoking cessation
[2024-11-18] MEDS: levETIRAcetam 500 MG TAB PO SCH (10:15)
[2024-11-18] MEDS: ASPIRIN 325 MG TAB PO SCH (10:15)
--- NOTE | 2024-11-18 12:36 | CA ---
Transthoracic Echo Report Name: Zuri Santo Age: 58 Gender: F : 1965 Exam Date: 11/18/2024 10:30 Exam Location: [place] [facility] Ht (in): 60 Wt (lb): 105 Ordering Physician: Theodore Arceo MD Attending/Referring Phys: Lens Blocker Margarita Figueroa RDCS Procedure CPT: Indications: Chest Pain, Cardiomyopathy, unspecified Cardiac Hx: Technical Quality: Good Contrast 1: N/A Total Dose (mL): Contrast 2: Total Dose (mL): MEASUREMENTS (Male / Female) Normal Values 2D ECHO LV Diastolic Diameter PLAX 4.0 cm 4.2 - 5.9 / 3.9 - 5.3 cm LV Systolic Diameter PLAX 3.0 cm IVS Diastolic Thickness 1.1 cm 0.6 - 1.0 / 0.6 - 0.9 cm LVPW Diastolic Thickness 1.0 cm 0.6 - 1.0 / 0.6 - 0.9 cm LV Relative Wall Thickness 0.5 RV Internal Dim ED PLAX 2.8 cm LA Systolic Diameter LX 3.1 cm 3.0 - 4.0 / 2.7 - 3.8 cm LV Diastolic Volume MOD 4C 67.1 cm??? LV Systolic Volume MOD 4C 24.4 cm??? LV Ejection Fraction MOD 4C 63.7 % LV Cardiac Index MOD 4C 1982.6 cm???/min???m??? LV Diastolic Length 4C 7.8 cm LV Systolic Length 4C 6.3 cm LV Diastolic Volume MOD 2C 73.9 cm??? LV Systolic Volume MOD 2C 29.6 cm??? LV Ejection Fraction MOD 2C 60.0 % LV Cardiac Index MOD 2C 2057.8 cm???/min???m??? LV Diastolic Length 2C 8.1 cm LV Systolic Length 2C 6.3 cm LA Volume 46.1 cm??? 18 - 58 / 22 - 52 cm??? LA Volume Index 32.4 cm???/m??? 16 - 28 cm???/m??? M-MODE Aortic Root Diameter MM 2.9 cm AV Cusp Separation MM 2.1 cm DOPPLER AV Peak Velocity 155.2 cm/s AV Peak Gradient 9.6 mmHg MV Area PHT 4.2 cm??? Mitral E Point Velocity 98.2 cm/s Mitral A Point Velocity 69.1 cm/s Mitral E to A Ratio 1.4 MV Deceleration Time 182.1 ms Right Atrial Pressure 5.0 mmHg FINDINGS Left Ventricle Left ventricular ejection fraction is estimated at 55-60 %. Left ventricular cavity size normal. Mildly increased septal wall thickness. Normal left ventricular wall motion. Right Ventricle Normal right ventricular size. Unable to estimate the right ventricular systolic pressure. Right Atrium Mild right atrial dilatation. No right atrial thrombus or mass seen. Negative agitated saline bubble study for right to left shunt. Left Atrium Mildly increased left atrial volume. No left atrial thrombus or mass present. Mitral Valve Structurally normal mitral valve. No evidence for mitral valve prolapse. No mitral stenosis. Mild mitral regurgitation. Aortic Valve Trileaflet aortic valve. No aortic valve stenosis or regurgitation. Tricuspid Valve Structurally normal tricuspid valve. No tricuspid stenosis, regurgitation or prolapse. Pulmonic Valve Structurally normal pulmonic valve. No pulmonic regurgitation. Pericardium No pericardial effusion. Aorta Normal size aortic root and proximal ascending aorta. CONCLUSIONS LVEF 55% Normal RV size and systolic function Mild biatrial dilatation. No evidence of [id number] intracardiac shunting on bubble study Mild mitral regurgitation Previewed by: Dr Hugo Brito (Electronically Signed) Final Date: 18 November 2024 12:35
[2024-11-18 12:56] LABS: Chol/HDL Ratio 1.71 Ratio; LDL Cholesterol,Calculated 66.4 mg/dL (0.0-131.0)
--- NOTE | 2024-11-18 15:12 | P.CRDCN ---
History of Present Illness Consult date: 11/18/24 History of present illness: HISTORY OF PRESENTING ILLNESS: Patient is known to Dr. Olivas. She was last seen by Dr. Contreras 09/2024. Prior history of Takotsubo cardiomyopathy. In 09/2024 she was seen for substernal chest pressure which was atypical in nature. She was rule out of ACS. On last admission she was alcohol intoxicated, we added amlodipine 5 mg and Lipitor 20 mg. She was cleared from cardiology. This time she presents with very similar complaints. On admission she is positive for EtOH levels being high. Her description of chest pain is very atypical. She describes it as pressure-like sensation. She is also asking for some pain medications to ease it. She is a poor historian. She does have history of seizure disorder hypertension dyslipidemia medication noncompliance. She also smokes and uses alcohol regularly. Echo from this admission shows EF 55%, mild biatrial dilatation, no evidence of left to right intracardiac shunting on bubble study, mild MR EKG shows normal sinus rhythm Prior heart catheter in 2017 was nonrevealing REVIEW OF SYSTEMS: 14 point review of system is negative except what is mentioned above in HPI. PHYSICAL EXAMINATION: Neck: Brisk carotid upstroke, no jugular venous distention. Lungs: Clear to auscultation. Heart: Regular rate and rhythm, S1-S2, , no murmur or rub. Abdomen: Soft nontender, positive bowel sounds. Extremities: No edema, intact distal pulses. Neuro: Alert, oritented, no focal deficits. Detailed neuro exam was not performed. ASSESSMENT: # Atypical chest pain, less likely cardiac, rule out of ACS # Alcohol intoxication EtOH level 281 # Tobacco smoking # History of seizure disorder # History of Takotsubo cardiomyopathy. Currently normal LVEF PLAN: Would recommend aspirin 81 mg, Lipitor 40 mg, amlodipine 5 mg daily, Coreg 3.125 mg twice daily Recommend supportive care for alcohol use. Check for liver functions, alcohol related medical problems like manage esophagus, gastritis etc Nutritional supplementation with iron B12 folate recommended Obtain lipids, NT-proBNP, A1c Recommend outpatient follow-up. Once not under the effect of alcohol consider repeating cardiac stress testing Cardiology team will sign off Hugo Brito MD, FACC, RPVI Thank you for allowing [facility] to participate in this patient's care. Feel free to reach out in case of any followup questions. Past Medical History Past Medical History: Cancer, COPD, Hypertension, Liver Disease, Myocardial Infarction ([place]), Seizure Disorder, Vascular Disorder Additional Past Medical History / Comment(s): constpation, feeling bloated,feeling of fullness, and abdominal pain, feels hungry then over eats then vomits to feel better, LAST SEIZURE - JANUARY 2021, "broken heart syndrome"., elevated liver enzymes, "dislocated disks", hx cervical cancer, etoh abuse Last Myocardial Infarction Date:: 2019 History of Any Multi-Drug Resistant Organisms: None Reported Past Surgical History: Section, Heart Catheterization, Tubal Ligation Additional Past Surgical History / Comment(s): ORIF rt ankle/hardware later re moved, exploratory lap, PAIN CLINIC PROCEDURE, BILAT CATARACTS REMOVED WITH LENS IMPLANTS, procedure to open a vein in left leg-couldn't confirm which leg, partial amputation rt hand middle finger, "procedure to remove cervical cancer" Past Anesthesia/Blood Transfusion Reactions: No Reported Reaction Past Psychological History: Anxiety, Bipolar, Depression, PTSD Smoking Status: Current every day smoker Past Alcohol Use History: Abuse, Daily, Heavy Past Drug Use History: Marijuana - Past Family History Father Family Medical History: Cancer, Prostate Disorder, Pulmonary Embolus Sister(s) Family Medical History: Cancer Brother(s) Family Medical History: Cancer Additional Family Medical History / Comment(s): colon and bladder Medications and Allergies Home Medications Medication Instructions Recorded Confirmed Type levETIRAcetam [Keppra] 500 mg PO BID 11/18/24 11/18/24 History Allergies Allergy/AdvReac Type Severity Reaction Status Date / Time acetaminophen [From Tylenol] Allergy Unknown Verified 11/18/24 10:35 Penicillins Allergy Rash/Hives/Swelling Verified 11/18/24 10:35 all over body NSAIDS (Non-Steroidal AdvReac Unknown upset Verified 11/18/24 10:35 Anti-Inflamma stomach sertraline HCl [From Zoloft] AdvReac Suicidal/Ag Verified 11/18/24 10:35 ression Physical Exam Vitals: Vital Signs Temp Pulse Pulse Resp BP BP Pulse Ox 11/18/24 15:05 98 11/18/24 14:55 98 F 69 18 168/90 97 11/18/24 14:34 98.4 F 63 18 171/96 99 11/18/24 12:17 69 16 11/18/24 10:11 94 16 150/99 95 11/18/24 08:27 70 16 11/18/24 05:01 97.9 F 95 18 145/80 96 11/17/24 22:59 99 18 127/90 98 11/17/24 18:53 98.5 F 98 18 143/76 97 FiO2 11/18/24 15:05 21 11/18/24 14:55 11/18/24 14:34 11/18/24 12:17 11/18/24 10:11 11/18/24 08:27 11/18/24 05:01 11/17/24 22:59 11/17/24 18:53 Results 11/17/24 20:06 11/17/24 20:06 Cardiac Enzymes 11/17/24 11/17/24 11/17/24 Range/Units 20:06 20:11 22:30 AST 61 H (14-36) U/L Troponin I <0.012 <0.012 (0.000-0.034) ng/mL 11/18/24 Range/Units 05:59 AST (14-36) U/L Troponin I <0.012 (0.000-0.034) ng/mL Lipids 11/18/24 Range/Units 05:59 Triglycerides 73.00 (0.00-149.00) mg/dL Cholesterol 195.00 (0.00-200.00) mg/dL HDL Cholesterol 114.00 H (40.00-60.00) mg/dL Cholesterol/HDL Ratio 1.71 Ratio CBC 11/17/24 Range/Units 20:06 WBC 4.27 L (4.50-10.00) 10*3/uL RBC 4.27 (4.10-5.20) 10*6/uL Hgb 14.0 (12.0-15.0) g/dL Hct 39.9 (37.2-46.3) % Plt Count 318 (140-440) 10*3/uL Comprehensive Metabolic Panel 11/17/24 Range/Units 20:06 Sodium 140 (137-145) mmol/L Potassium 3.8 (3.5-5.1) mmol/L Chloride 104 (98-107) mmol/L Carbon Dioxide 23 (22-30) mmol/L BUN 4 L (7-17) mg/dL Creatinine 0.43 L (0.52-1.04) mg/dL Glucose 82 (74-99) mg/dL Calcium 8.6 (8.4-10.2) mg/dL AST 61 H (14-36) U/L ALT 21 (4-34) U/L Alkaline Phosphatase 82 (38-126) U/L Total Protein 6.5 (6.3-8.2) g/dL Albumin 4.1 (3.5-5.0) g/dL Current Medications Generic Name Dose Route Start Last Admin Trade Name Freq PRN Reason Stop Dose Admin Acetaminophen 650 mg 11/18/24 13:35 Acetaminophen Tab 325 Mg Tab PO Q6HR PRN Fever and/ or Pain Aspirin 325 mg 11/18/24 09:00 11/18/24 10:15 Aspirin 325 Mg Tab PO 325 mg DAILY EDGARDO Administration Levetiracetam 500 mg 11/18/24 10:15 11/18/24 10:15 Levetiracetam 500 Mg Tab PO 500 mg Q12HR EDGARDO Administration Lorazepam 1 mg 11/17/24 21:08 Lorazepam 1 Mg/0.5 Ml Vial IV Q1HR PRN CIWA 10 to 15 Lorazepam 1 mg 11/17/24 21:08 Lorazepam 1 Mg/0.5 Ml Vial IV Q2HR PRN CIWA 8 or 9 Lorazepam 2 mg 11/17/24 21:08 Lorazepam 1 Mg/0.5 Ml Vial IV 11/19/24 21:09 Q10M PRN CIWA 16 or higher Lorazepam 1 mg 11/17/24 21:08 11/18/24 05:11 Lorazepam 1 Mg Tab PO 1 mg Q4HR PRN Administration Ciwa 6 To 7 Nitroglycerin 0.4 mg 11/17/24 21:06 Nitroglycerin Sl Tabs 0.4 Mg Tab SUBLINGUAL Q5M PRN Chest Pain Nitroglycerin 1 inch 11/18/24 00:00 11/18/24 13:23 Nitroglycerin Oint 1 Inch/Gm Packet TOPICAL Not Given Q6HR EDGARDO 11/17/24 20:06 11/17/24 20:06
--- NOTE | 2024-11-18 16:38 | XR ---
EXAMINATION TYPE: XR chest 2V DATE OF EXAM: 11/18/2024 4:00 PM CLINICAL INDICATION:Female, 58 years old with history of Substernal chest pressure; [facility] COMPARISON: Chest radiograph 11/14/2024 TECHNIQUE: XR chest 2V Frontal view of the chest. FINDINGS: Lungs/Pleura: There is no evidence of pleural effusion, focal consolidation, or pneumothorax. Pulmonary vascularity: Unremarkable. Heart/mediastinum: Cardiomediastinal silhouette is unremarkable. Musculoskeletal: No acute osseous pathology. IMPRESSION: No acute cardiopulmonary disease/process. [facility], , 11/18/2024 4:35 PM
[2024-11-18] MEDS ORDERED: hydrALAZINE HCL 20 MG/ML 1 ML VIAL IVP PRN (17:19)
[2024-11-18] MEDS: amLODIPine 5 MG TAB PO SCH (17:41)
[2024-11-18] MEDS: carvediloL 3.125 MG TAB PO SCH (17:46)
--- NOTE | 2024-11-18 18:22 | CT ---
EXAMINATION TYPE: CT angio chest DATE OF EXAM: 11/18/2024 6:11 PM COMPARISON: None. CLINICAL INDICATION: Female, 58 years old with history of cp and elevated D DIMER, Positive dimer, TECHNIQUE: CT of the chest is performed on a spiral scan at 2 mm thick sections. Study is performed with intravenous contrast timed for evaluation for pulmonary embolism. This will limit additional po rtions of the evaluation. 10mm MIP images reconstructed by the technologist are reviewed on the comp uter in the coronal and sagittal planes. Contrast used:52 mL of Isovue 370 with IV Contrast, (none if empty) Oral contrast used: (none if empty) CT DLP: 143.1 mGycm, Automated exposure control for dose reduction was used. FINDINGS: No persistent filling defects are evident to suggest an acute pulmonary embolism. No mediastinal or hilar adenopathy enlarged by CT criteria is evident. The ascending aorta diameter at the level of the main pulmonary artery is 3.3 cm. The main pulmonary artery diameter at the bifurcation is 2.0 cm. Lung windows are clear. Mild coronary artery calcifications present. Limited CT sections were through the upper abdomen. Upper abdomen appears unremarkable. IMPRESSION: 1. Acute pulmonary embolism. 2. No acute pulmonary process. [facility], , 11/18/2024 6:19 PM
[2024-11-18] MEDS: CYCLOBENZAPRINE 5 MG TAB PO PRN (18:23)
[2024-11-18 19:30] VITALS: BP 182/86; PULSE 86; RESP 20; TEMP 98.2
[2024-11-18] MEDS: ATORVASTATIN 40 MG TAB PO SCH (20:44)
[2024-11-18] MEDS: ACETAMINOPHEN TAB 325 MG TAB PO PRN (20:44)
[2024-11-19] MEDS ORDERED: ASPIRIN 81 MG PO SCH (09:00)
--- NOTE | 2024-11-19 09:16 | P.DS ---
Providers Date of admission: 11/17/24 21:06 Expected date of discharge: 11/19/24 Attending physician: Theodore Arceo Primary care physician: Theodore Arceo [place] Hospital Course: Diagnosis on discharge: Episode of chest pain Alcohol intoxication Underlying history of hypertension History of hyperlipidemia Underlying history of seizure disorder Remote history of head trauma Underlying history of tobacco abuse Chronic history of excessive alcohol use Hospital course: Zuri Santo, is a 58-year-old female presented to [facility] emergency room with a chief complaint of chest pain. Patient had evidence of alcohol intoxication on presentation. She was evaluated in the emergency room vital examination on presentation revealed a temperature of 98.5 pulse 98 respiration 18 blood pressure 143/76 pulse ox 97% on room air Laboratory data reveals white blood count of 4.27 hemoglobin 14.0 platelet count 318 BUN 4 creatinine 0.43 AST 61 ALT 21 alkaline phosphatase 82 troponin 0.012 serum alcohol level 281 lipase 125 Testing in the emergency room revealed EKG revealed sinus rhythm with right ventricular conduction delay. Chest x-ray was done on this visit however marcelina gold was in emergency room 3 days prior and she had a chest x-ray on 11/14/2024 which revealed no acute pulmonary process. Patient was admitted to medical floor for further evaluation and treatment, ca rdiology consultation was requested in regard to chest pain. Past medical history is significant for history of head trauma as a teenager, history of seizure disorder, history of hypertension, history of hyperlipidemia, patient denies any previous history of coronary artery disease angioplasty or stent placement she denies any previous history of congestive heart failure On review of systems patient is alert slightly confused in no apparent distress, there is no fever or chills no headache or dizziness no chest pain at rest no shortness of breath no cough no nausea or vomiting no abdominal pain no diarrhea no blood in the stools no burning with urination no frequency or urgency and no hematuria. On 11/19/2024 patient was seen and examined on 11/18/2024 she had an elevated D- dimer, CT angiogram of the chest was done and revealed no evidence of pulmonary embolism, patient decided to leave the hospital AGAINST MEDICAL ADVICE shortly afterward. Will follow in the office in the next few days Patient Condition at Discharge: Fair Plan - Discharge Summary New Discharge Prescriptions: No Action levETIRAcetam [Keppra] 500 mg PO BID Discharge Medication List levETIRAcetam [Keppra] 500 mg PO BID 11/18/24 [History] Follow up Appointment(s)/Referral(s): Theodore Arceo MD [Primary Care Provider] - 1-2 days Discharge/Stand Alone Forms: [facility], Outpatient Counseling, In Substance Abuse Facilities Discharge Disposition: LEFT AGAINST MEDICAL ADVICE
== END 2024-11-18 21:55 | disposition left against medical advice (07) ==
LOC: EC 18:51 → 6NMEDSUR 21:06
PROVIDERS: ADMIT Internal Medicine; ATTEND Internal Medicine
DX: R07.89 Other chest pain (principal); F10.129 Alcohol abuse with intoxication, unspecified; E78.5 Hyperlipidemia, unspecified; F17.200 Nicotine dependence, unspecified, uncomplicated; I25.2 Old myocardial infarction; F31.9 Bipolar disorder, unspecified; F41.9 Anxiety disorder, unspecified; G40.909 Epilepsy, unspecified, not intractable, without status epilepticus; I10 Essential (primary) hypertension; J44.9 Chronic obstructive pulmonary disease, unspecified; Z53.29 Procedure and treatment not carried out because of patient's decision for other reasons; Z88.6 Allergy status to analgesic agent; Z88.0 Allergy status to penicillin; Z88.8 Allergy status to other drugs, medicaments and biological substances; Z79.82 Long term (current) use of aspirin; Z79.899 Other long term (current) drug therapy; Z85.41 Personal history of malignant neoplasm of cervix uteri; Z91.148 Patient's other noncompliance with medication regimen for other reason; Y90.8 Blood alcohol level of 240 mg/100 ml or more
CPT/HCPCS: 96360; 99285; 36415; 94760; 93005 ×2; 93306; 85379; 80061; 80053; 83690; 83735; 84484 ×2; 85025; 71046; 71275; G0378 ×2; G0480; Q9967; 80320

== ENCOUNTER 2024-11-19 20:55 | Emergency (ER) | payer OTHER ==
--- NOTE | 2024-11-19 21:32 | ED ---
General Adult HPI - General Chief complaint: Chest Pain Stated complaint: chest pain Time Seen by Provider: 11/19/24 20:57 Source: patient, RN notes reviewed Mode of arrival: EMS - History of Present Illness Initial comments: 58-year-old female presents to the emergency department for chest discomfort. Patient has been seen multiple times for this complaint. Patient just left AMA from the hospital yesterday for the same complaint. She had negative troponins at that time. She denies any new symptoms. She states that her boyfriend called the ambulance today but she is not entirely sure why. - Related Data Home Medications Medication Instructions Recorded Confirmed levETIRAcetam [Keppra] 500 mg PO BID 11/18/24 11/18/24 Allergies Allergy/AdvReac Type Severity Reaction Status Date / Time acetaminophen [From Tylenol] Allergy Unknown Verified 11/19/24 21:03 Penicillins Allergy Rash/Hives/Swelling Verified 11/19/24 21:03 all over body NSAIDS (Non-Steroidal AdvReac Unknown upset Verified 11/19/24 21:03 Anti-Inflamma stomach sertraline HCl [From Zoloft] AdvReac Suicidal/Ag Verified 11/19/24 21:03 ression Review of Systems ROS Statement: Those systems with pertinent positive or pertinent negative responses have been documented in the HPI. ROS Other: All systems not noted in ROS Statement are negative. Past Medical History Past Medical History: Cancer, COPD, Hypertension, Liver Disease, Myocardial Infarction ([place]), Seizure Disorder, Vascular Disorder Additional Past Medical History / Comment(s): constpation, feeling bloated,f eeling of fullness, and abdominal pain, feels hungry then over eats then vomits to feel better, LAST SEIZURE - JANUARY 2021, "broken heart syndrome"., elevated liver enzymes, "dislocated disks", hx cervical cancer, etoh abuse Last Myocardial Infarction Date:: 2019 History of Any Multi-Drug Resistant Organisms: None Reported Past Surgical History: Section, Heart Catheterization, Tubal Ligation Additional Past Surgical History / Comment(s): ORIF rt ankle/hardware later removed, exploratory lap, PAIN CLINIC PROCEDURE, BILAT CATARACTS REMOVED WITH LENS IMPLANTS, procedure to open a vein in left leg-couldn't confirm which leg, partial amputation rt hand middle finger, "procedure to remove cervical cancer" Past Anesthesia/Blood Transfusion Reactions: No Reported Reaction Past Psychological History: Anxiety, Bipolar, Depression, PTSD Smoking Status: Current every day smoker Past Alcohol Use History: Abuse, Daily, Heavy Past Drug Use History: Marijuana - Past Family History Father Family Medical History: Cancer, Prostate Disorder, Pulmonary Embolus Sister(s) Family Medical History: Cancer Brother(s) Family Medical History: Cancer Additional Family Medical History / Comment(s): colon and bladder General Exam Limitations: no limitations General appearance: alert, in no apparent distress, appears intoxicated Head exam: Present: atraumatic, normocephalic, normal inspection Eye exam: Present: normal appearance, PERRL, EOMI. Absent: scleral icterus, conjunctival injection, periorbital swelling ENT exam: Present: normal exam, mucous membranes moist Neck exam: Present: normal inspection. Absent: tenderness, meningismus, lymphadenopathy Respiratory exam: Present: normal lung sounds bilaterally. Absent: respiratory distress, wheezes, rales, rhonchi, stridor Cardiovascular Exam: Present: regular rate, normal rhythm, normal heart sounds. Absent: systolic murmur, diastolic murmur, rubs, gallop, clicks GI/Abdominal exam: Present: soft. Absent: distended, tenderness, guarding, rebound, rigid Extremities exam: Present: normal inspection, full ROM, normal capillary refill. Absent: tenderness, pedal edema, joint swelling, calf tenderness Back exam: Present: normal inspection Neurological exam: Present: alert, oriented X3 Psychiatric exam: Present: normal affect, normal mood Skin exam: Present: warm, dry, intact, normal color. Absent: rash Course Vital Signs 11/19/24 11/19/24 20:59 22:31 Temperature 98.3 F 98.4 F Pulse Rate 78 82 Respiratory 18 16 Rate Blood Pressure 130/95 111/53 O2 Sat by Pulse 98 99 Oximetry Medical Decision Making - Medical Decision Making Was pt. sent in by a medical professional or institution (, PA, CONSTRUCTION SALES MANAGER, urgent care, hospital, or skilled nursing...) When possible be specific @ -No Did you speak to anyone other than the patient for history (EMS, parent, family, police, friend...)? What history was obtained from this source @ -No Did you review nursing and triage notes (agree or disagree)? Why? @ -I reviewed and agree with nursing and triage notes Were old charts reviewed (outside hosp., previous admission, EMS record, old EKG, old radiological studies, urgent care reports/EKG's, skilled nursing records)? Report findings @ -No old charts were reviewed Differential Diagnosis (chest pain, altered mental status, abdominal pain women, abdominal pain men, vaginal bleeding, weakness, fever, dyspnea, syncope, headache, dizziness, GI bleed, back pain, seizure, CVA, palpatations, mental health, musculoskeletal)? @ -Differential Chest Pain: Stable Angina, Unstable Angina, STEMI, NSTEMI Aortic Dissection, Pneumothorax, Musculoskeletal, Esophageal Spasm GERD, Cholecystitis, Pancreatitis, Zoster, this is not meant to be an all-inclusive list. EKG interpreted by me (3pts min.). @ -EKG@2105 shows sinus rhythm rate 80, MA 180, QRS 83, QTQTc 431 X-rays interpreted by me (1pt min.). @ -Chest x-ray reveals no acute process CT interpreted by me (1pt min.). @ -None done U/S interpreted by me (1pt. min.). @ -None done What testing was considered but not performed or refused? (CT, X-rays, U/S, labs)? Why? @ -None What meds were considered but not given or refused? Why? @ -None Did you discuss the management of the patient with other professionals (professionals i.e. , PA, CONSTRUCTION SALES MANAGER, lab, RT, psych nurse, social work assistant, cataract lens generator, teacher, aeronautical engineering officer, oil field caser)? Give summary @ -No Was smoking cessation discussed for >3mins.? @ -No Was critical care preformed (if so, how long)? @ -No Were there social determinants of health that impacted care today? How? (Homelessness, low income, unemployed, alcoholism, drug addiction, transportation, low edu. Level, literacy, decrease access to med. care, alf, rehab)? @ -No Was there de-escalation of care discussed even if they declined (Discuss DNR or withdrawal of care, Hospice)? DNR status @ -No What co-morbidities impacted this encounter? (DM, HTN, Smoking, COPD, CAD, Cancer, CVA, ARF, Chemo, Hep., AIDS, mental health diagnosis, sleep apnea, morbid obesity)? @ -None Was patient admitted / discharged? Hospital course, mention meds given and route, prescriptions, significant lab abnormalities, going to OR and other pertinent info. @ -Discharge. Patient presented the emergency department via EMS. Patient states that her boyfriend called the ambulance although she is not exactly sure why. EKG was performed along with a chest x-ray revealing no acute process. Patient would like to be discharged home. She was provided a ride home. Case discussed with Dr. Stewart Undiagnosed new problem with uncertain prognosis? @ -No Drug Therapy requiring intensive monitoring for toxicity (Heparin, Nitro, Insulin, Cardizem)? @ -No Were any procedures done? @ -No Diagnosis/symptom? @ -Alcohol intoxication Acute, or Chronic, or Acute on Chronic? @ -Acute Uncomplicated (without systemic symptoms) or Complicated (systemic symptoms)? @ -Uncomplicated Side effects of treatment? @ -No Exacerbation, Progression, or Severe Exacerbation? @ -No Poses a threat to life or bodily function? How? (Chest pain, [place], [place], pneumonia, PE, COPD, DKA, ARF, appy, cholecystitis, CVA, Diverticulitis, Homicidal, Suicidal, threat to staff... and all critical care pts) @ -No Disposition Clinical Impression: Alcohol intoxication Disposition: HOME SELF-CARE Condition: Stable Is patient prescribed a controlled substance at d/c from ED?: No Referrals: Theodore Arceo MD [Primary Care Provider] - 1-2 days
[2024-11-19] MEDS: SODIUM CHLORIDE 0.9% 1,000 ML IV ONE (21:37)
[2024-11-19 22:32] VITALS: BP 111/53; PULSE 82; RESP 16; TEMP 98.4
--- NOTE | 2024-11-19 22:52 | XR ---
EXAMINATION TYPE: XR chest 2V DATE OF EXAM: 11/19/2024 9:46 PM COMPARISON: 11/18/2024 CLINICAL INDICATION: Female, 58 years old with history of pain, TECHNIQUE: XR chest 2V view(s) obtained. FINDINGS: The heart size is normal. The pulmonary vasculature is normal. The lungs are clear. IMPRESSION: 1. No acute pulmonary process. [facility], , 11/19/2024 10:49 PM
== END 2024-11-19 22:31 | disposition home or self-care (01) ==
LOC: EC 20:55
DX: F10.129 Alcohol abuse with intoxication, unspecified (principal); F17.200 Nicotine dependence, unspecified, uncomplicated; Z88.0 Allergy status to penicillin; Z88.6 Allergy status to analgesic agent
CPT/HCPCS: 71046; 93005; 96360; 99285

== ENCOUNTER 2024-11-25 21:30 | Emergency (ER) | payer OTHER ==
[2024-11-25 21:46] VITALS: RESP 18
--- NOTE | 2024-11-25 21:46 | ED ---
Chest Pain HPI - General Stated Complaint: Chest pain Time Seen by Provider: 11/25/24 21:32 - History of Present Illness Initial Comments: This patient is 58-year-old woman who presents to have evaluation of substernal chest pain. Patient had been drinking earlier. She went to bed. She states that she woke up with burning substernal pain. Patient states that her boyfriend then called EMS. The patient not having associated symptoms. Symptoms have improved. MD Complaint: chest pain -: minutes(s) Onset: awoke with symptoms Pain Location: substernal Pain Radiation: none Severity: moderate Quality: other (Burning) Consistency: now resolved Improves With: nothing Worsens With: nothing Treatments Prior to Arrival: none - Related Data Home Medications Medication Instructions Recorded Confirmed levETIRAcetam [Keppra] 500 mg PO BID 11/18/24 11/18/24 Allergies Allergy/AdvReac Type Severity Reaction Status Date / Time acetaminophen [From Tylenol] Allergy Unknown Verified 12/09/24 23:18 Penicillins Allergy Rash/Hives/Swelling Verified 12/09/24 23:18 all over body NSAIDS (Non-Steroidal AdvReac Unknown upset Verified 12/09/24 23:18 Anti-Inflamma stomach sertraline HCl [From Zoloft] AdvReac Suicidal/Ag Verified 12/09/24 23:18 ression Review of Systems ROS Statement: Those systems with pertinent positive or pertinent negative responses have been documented in the HPI. ROS Other: All systems not noted in ROS Statement are negative. Constitutional: Denies: fever, chills Respiratory: Denies: cough, dyspnea Cardiovascular: Reports: chest pain. Denies: palpitations, orthopnea, edema, syncope Gastrointestinal: Denies: abdominal pain, vomiting, diarrhea Genitourinary: Denies: dysuria, hematuria Musculoskeletal: Denies: back pain Skin: Denies: rash Neurological: Denies: headache, weakness EKG Findings - EKG Results: EKG: interpreted by DEDRICK, sinus rhythm (Rate 74 bpm), normal axis, normal QRS, normal ST/T, no acute changes Past Medical History Past Medical History: Cancer, COPD, Hypertension, Liver Disease, Myocardial Infarction ([place]), Seizure Disorder, Vascular Disorder Additional Past Medical History / Comment(s): constpation, feeling bloated,feeling of fullness, and abdominal pain, feels hungry then over eats then vomits to feel better, LAST SEIZURE - JANUARY 2021, "broken heart syndrome"., elevated liver enzymes, "dislocated disks", hx cervical cancer, etoh abuse Last Myocardial Infarction Date:: 2019 History of Any Multi-Drug Resistant Organisms: None Reported Past Surgical History: Section, Heart Catheterization, Tubal Ligation Additional Past Surgical History / Comment(s): ORIF rt ankle/hardware later removed, exploratory lap, PAIN CLINIC PROCEDURE, BILAT CATARACTS REMOVED WITH LENS IMPLANTS, procedure to open a vein in left leg-couldn't confirm which leg, partial amputation rt hand middle finger, "procedure to remove cervical cancer" Past Anesthesia/Blood Transfusion Reactions: No Reported Reaction Past Psychological History: Anxiety, Bipolar, Depression, PTSD Smoking Status: Current every day smoker Past Alcohol Use History: Abuse, Daily, Heavy Past Drug Use History: Marijuana - Past Family History Father Family Medical History: Cancer, Prostate Disorder, Pulmonary Embolus Sister(s) Family Medical History: Cancer Brother(s) Family Medical History: Cancer Additional Family Medical History / Comment(s): colon and bladder General Exam General appearance: alert, in no apparent distress Head exam: Present: atraumatic, normocephalic Eye exam: Present: normal appearance, nystagmus. Absent: scleral icterus, conjunctival injection Neck exam: Present: normal inspection Respiratory exam: Present: normal lung sounds bilaterally. Absent: respiratory distress, wheezes, rales, rhonchi, stridor, accessory muscle use Cardiovascular Exam: Present: regular rate, normal rhythm, normal heart sounds. Absent: systolic murmur, diastolic murmur, rubs, gallop GI/Abdominal exam: Present: soft. Absent: distended, tenderness, guarding, rebound, rigid, organomegaly, mass Extremities exam: Present: normal inspection, normal capillary refill. Absent: pedal edema, calf tenderness Back exam: Present: normal inspection. Absent: vertebral tenderness Neurological exam: Present: alert Skin exam: Present: warm, dry, intact, normal color. Absent: rash Course Vital Signs 11/25/24 11/25/24 11/26/24 21:43 23:46 01:45 Temperature 98 F Pulse Rate 95 71 71 Respiratory 18 18 18 Rate Blood Pressure 133/95 120/78 122/81 O2 Sat by Pulse 98 97 97 Oximetry 11/26/24 04:51 Temperature 97.9 F Pulse Rate 66 Respiratory 18 Rate Blood Pressure 127/88 O2 Sat by Pulse 99 Oximetry Chest Pain MDM - MDM The patient had chest x-ray that I interpreted as negative for acute infiltrate, pneumothorax, congestive heart failure Was pt. sent in by a medical professional or institution (, BENI, [facility], urgent care, hospital, or jail...) When possible be specific @ -[No] Did you speak to anyone other than the patient for history (EMS, parent, family, police, friend...)? What history was obtained from this source @ -[No] Did you review nursing and triage notes (agree or disagree)? Why? @ -[I reviewed and agree with nursing and triage notes] Were old charts reviewed (outside hosp., previous admission, EMS record, old EKG, old radiological studies, urgent care reports/EKG's, jail records)? Report findings @ -[No old charts were reviewed] Differential Diagnosis (chest pain, altered mental status, abdominal pain women, abdominal pain men, vaginal bleeding, weakness, fever, dyspnea, syncope, headache, dizziness, GI bleed, back pain, seizure, CVA, palpatations, mental health, musculoskeletal)? @ -[Differential Chest Pain: Stable Angina, Unstable Angina, STEMI, NSTEMI Aortic Dissection, Pneumothorax, Musculoskeletal, Esophageal Spasm GERD, Cholecystitis, Pancreatitis, Zoster, this is not meant to be an all-inclusive list. EKG interpreted by me (3pts min.). @ -[I interpreted as above] X-rays interpreted by me (1pt min.). @ -[I interpreted as above CT interpreted by me (1pt min.). @ -[None done] U/S interpreted by me (1pt. min.). @ -[None done] What testing was considered but not performed or refused? (CT, X-rays, U/S, labs)? Why? @ -[None] What meds were considered but not given or refused? Why? @ -[None] Did you discuss the management of the patient with other professionals (professionals i.e. BENI Dill, [employer]RINE CLEANER, lab, RT, psych nurse, social service director, vest finisher, teacher, booking police officer, wrapper caser)? Give summary @ -[No] Was smoking cessation discussed for >3mins.? @ -[No] Was critical care preformed (if so, how long)? @ -[No] Were there social determinants of health that impacted care today? How? (Homelessness, low income, unemployed, alcoholism, drug addiction, transportation, low edu. Level, literacy, decrease access to med. care, custodial, rehab)? @ -[No] Was there de-escalation of care discussed even if they declined (Discuss DNR or withdrawal of care, Hospice)? DNR status @ -[No] What co-morbidities impacted this encounter? (DM, HTN, Smoking, COPD, CAD, Cancer, CVA, ARF, Chemo, Hep., AIDS, mental health diagnosis, sleep apnea, morbid obesity)? @ -[Alcohol abuse Was patient admitted / discharged? Hospital course, mention meds given and route, prescriptions, significant lab abnormalities, going to OR and other pertinent info. @ -[Patient is 58-year-old woman here for substernal chest pain that woke her from sleep. History and physical consistent with element of reflux. The patient's lab workup is unremarkable. Her symptoms have resolved. The patient to have close follow-up. Discussed return parameters. Undiagnosed new problem with uncertain prognosis? @ -[No] Drug Therapy requiring intensive monitoring for toxicity (Heparin, Nitro, Insulin, Cardizem)? @ -[No] Were any procedures done? @ -[No] Diagnosis/symptom? @ -[Acute chest pain Acute, or Chronic, or Acute on Chronic? @ -[Acute Uncomplicated (without systemic symptoms) or Complicated (systemic symptoms)? @ -[Uncomplicated Side effects of treatment? @ -[No] Exacerbation, Progression, or Severe Exacerbation? @ -[No] Poses a threat to life or bodily function? How? (Chest pain, [place], [place], pneumonia, PE, COPD, DKA, ARF, appy, cholecystitis, CVA, Diverticulitis, Homicidal, Suicidal, threat to staff... and all critical care pts) @ -[No] All treatments are based on ideal body weight as in ED triage Disposition Clinical Impression: Alcohol intoxication Disposition: HOME SELF-CARE Condition: Good Instructions (If sedation given, give patient instructions): Alcohol Intoxication (ED) Is patient prescribed a controlled substance at d/c from ED?: No Referrals: Theodore Arceo MD [Primary Care Provider] - 1-2 days
--- NOTE | 2024-11-25 21:55 | XR ---
EXAMINATION TYPE: XR chest 1V portable DATE OF EXAM: 11/25/2024 9:50 PM COMPARISON: Chest radiographs from 11/19/2024. CLINICAL INDICATION: Female, 58 years old with history of chest pain; [facility] TECHNIQUE: XR chest 1V portable Frontal view of the chest. FINDINGS: Lungs/Pleura: There is no evidence of pleural effusion, focal consolidation, or pneumothorax. Pulmonary vascularity: Unremarkable. Heart/mediastinum: Cardiomediastinal silhouette is unremarkable. Musculoskeletal: No acute osseous pathology. IMPRESSION: No acute cardiopulmonary disease/process. [facility], , 11/25/2024 9:53 PM
[2024-11-25 22:10] LABS: Basophils # (A) 0.06 10*3/uL (0.00-0.10); Basophils % (A) 0.8 %; Eosinophils # (A) 0.06 10*3/uL (0.04-0.35); Eosinophils % (A) 0.8 %; HCT 38.5 % (37.2-46.3); HGB 13.6 g/dL (12.0-15.0); Lymphocytes # (A) 3.28 10*3/uL (0.90-5.00); Lymphocytes % (A) 42.9 %; MCH 32.6 pg (27.0-32.0); MCHC 35.3 g/dL (32.0-37.0); MCV 92.3 fL (80.0-97.0); Mean Platelet Volume 9.7 fL (9.5-12.2); Monocytes # (A) 1.11 10*3/uL (0.20-1.00); Monocytes % (A) 14.5 %; Neutrophils # (A) 3.11 10*3/uL (1.80-7.70); Neutrophils % (A) 40.6 %; Platelet Count 199 10*3/uL (140-440); RBC 4.17 10*6/uL (4.10-5.20); RDW 14.4 % (11.5-14.5); WBC 7.65 10*3/uL (4.50-10.00)
[2024-11-25 22:26] LABS: ALT 32 U/L (4-34); African American GFR (CKD) >90 (>60 ml/min/1.73 sqM); Albumin 4.8 g/dL (3.5-5.0); Anion Gap 15 mmol/L; Blood Urea Nitrogen 3 mg/dL (7-17); Calcium 9.2 mg/dL (8.4-10.2); Carbon Dioxide 17 mmol/L (22-30); Chloride 105 mmol/L (98-107); Glucose 90 mg/dL (74-99); Non-African American GFR(CKD) >90 (>60 ml/min/1.73 sqM); Sodium 137 mmol/L (137-145); Total Bilirubin 0.6 mg/dL (0.2-1.3); Total Protein 7.4 g/dL (6.3-8.2)
[2024-11-25 22:27] LABS: INR 0.9 (<1.2); Prothrombin Time 9.8 sec (10.0-12.5)
[2024-11-25] MEDS: chlordiazePOXIDE 25 MG CAP PO STA (22:31)
[2024-11-25 22:41] LABS: Alcohol 236 mg/dL; Potassium 4.2 mmol/L (3.5-5.1)
[2024-11-25 22:42] LABS: AST 70 U/L (14-36); Alkaline Phosphatase 77 U/L (38-126); Magnesium 1.7 mg/dL (1.6-2.3)
[2024-11-25 23:04] LABS: Partial Thromboplastin Time 20.6 sec (22.0-30.0)
[2024-11-26 04:54] VITALS: BP 127/88; PULSE 66; TEMP 97.9
== END 2024-11-26 05:20 | disposition home or self-care (01) ==
LOC: EC 21:30
DX: F10.129 Alcohol abuse with intoxication, unspecified (principal); F17.200 Nicotine dependence, unspecified, uncomplicated; Z88.0 Allergy status to penicillin; Z88.6 Allergy status to analgesic agent; Z88.8 Allergy status to other drugs, medicaments and biological substances; Y90.9 Presence of alcohol in blood, level not specified
CPT/HCPCS: 36415; 93005; 80053; 83735; 84484; 85025; 85610; 85730; 71045; 99285; G0480; 80320

== ENCOUNTER 2024-11-27 16:17 | Emergency (ER) | payer OTHER ==
--- NOTE | 2024-11-27 17:04 | ED ---
General Adult HPI - General Chief complaint: Alcohol Stated complaint: ETOH Time Seen by Provider: 11/27/24 16:20 Source: patient, EMS, RN notes reviewed Mode of arrival: EMS Limitations: no limitations - History of Present Illness Initial comments: Patient is a 58-year-old female present to the emergency department with concerns for alcohol. Patient states she does drink frequently and had at least 4 tall drinks today. Patient states this causes her to have discomfort. Patient states this is chronic discomfort that she has daily. No change from her chronic symptoms. Patient requests medication to help her relax. - Related Data Home Medications Medication Instructions Recorded Confirmed levETIRAcetam [Keppra] 500 mg PO BID 11/18/24 11/18/24 Allergies Allergy/AdvReac Type Severity Reaction Status Date / Time acetaminophen [From Tylenol] Allergy Unknown Verified 11/27/24 16:24 Penicillins Allergy Rash/Hives/Swelling Verified 11/27/24 16:24 all over body NSAIDS (Non-Steroidal AdvReac Unknown upset Verified 11/27/24 16:24 Anti-Inflamma stomach sertraline HCl [From Zoloft] AdvReac Suicidal/Ag Verified 11/27/24 16:24 ression Review of Systems ROS Statement: Those systems with pertinent positive or pertinent negative responses have been documented in the HPI. ROS Other: All systems not noted in ROS Statement are negative. Constitutional: Denies: fever Eyes: Denies: eye pain ENT: Denies: ear pain Respiratory: Denies: dyspnea Past Medical History Past Medical History: Cancer, COPD, Hypertension, Liver Disease, [place]ocardial Infarction ([place]), Seizure Disorder, Vascular Disorder Additional Past Medical History / Comment(s): constpation, feeling bloated,feeling of fullness, and abdominal pain, feels hungry then over eats then vomits to feel better, LAST SEIZURE - JANUARY 2021, "broken heart syndrome "., elevated liver enzymes, "dislocated disks", hx cervical cancer, etoh abuse Last Myocardial Infarction Date:: 2019 History of Any Multi-Drug Resistant Organisms: None Reported Past Surgical History: Section, Heart Catheterization, Tubal Ligation Additional Past Surgical History / Comment(s): ORIF rt ankle/hardware later removed, exploratory lap, PAIN CLINIC PROCEDURE, BILAT CATARACTS REMOVED WITH LENS IMPLANTS, procedure to open a vein in left leg-couldn't confirm which leg, partial amputation rt hand middle finger, "procedure to remove cervical cancer" Past Anesthesia/Blood Transfusion Reactions: No Reported Reaction Past Psychological History: Anxiety, Bipolar, Depression, PTSD Smoking Status: Current every day smoker Past Alcohol Use History: Abuse, Daily, Heavy Past Drug Use History: Marijuana - Past Family History Father Family Medical History: Cancer, Prostate Disorder, Pulmonary Embolus Sister(s) Family Medical History: Cancer Brother(s) Family Medical History: Cancer Additional Family Medical History / Comment(s): colon and bladder General Exam Limitations: no limitations General appearance: alert, in no apparent distress Head exam: Present: normocephalic Eye exam: Present: normal appearance Neck exam: Present: normal inspection Respiratory exam: Present: normal lung sounds bilaterally Cardiovascular Exam: Present: regular rate, normal rhythm Expanded Peripheral pulses: 2+: Radial (R), Radial (L), Posterior Tibialis (R), Posterior Tibialis (L) GI/Abdominal exam: Present: soft. Absent: tenderness Extremities exam: Present: normal inspection. Absent: pedal edema, calf tenderness Neurological exam: Present: alert Psychiatric exam: Present: normal affect, normal mood Skin exam: Present: normal color Course Vital Signs 11/27/24 16:19 Temperature 98.2 F Pulse Rate 75 Respiratory 16 Rate Blood Pressure 137/94 O2 Sat by Pulse 97 Oximetry EKG Findings - EKG Results: EKG: interpreted by DEDRICK, sinus rhythm, normal axis, normal QRS, normal ST/T Medical Decision Making - Medical Decision Making Was pt. sent in by a medical professional or institution (, PA, [facility], urgent care, hospital, or long-term...) When possible be specific @ -No Did you speak to anyone other than the patient for history (EMS, parent, family, police, friend...)? What history was obtained from this source @ -No Did you review nursing and triage notes (agree or disagree)? Why? @ -I reviewed and agree with nursing and triage notes Were old charts reviewed (outside hosp., previous admission, EMS record, old EKG, old radiological studies, urgent care reports/EKG's, long-term records)? Report findings @ -No old charts were reviewed Differential Diagnosis (chest pain, altered mental status, abdominal pain women, abdominal pain men, vaginal bleeding, weakness, fever, dyspnea, syncope, headache, dizziness, GI bleed, back pain, seizure, CVA, palpatations, mental he alth, musculoskeletal)? @ -Differential Chest Pain: Stable Angina, Unstable Angina, STEMI, NSTEMI Aortic Dissection, Pneumothorax, Musculoskeletal, Esophageal Spasm GERD, Cholecystitis, Pancreatitis, Zoster, this is not meant to be an all-inclusive list. Differential Dizziness: Benign paroxysmal positional Vertigo, Meniere's disease, otitis media, acoustic neuroma, vertebrobasilar insufficiency, cerebellar stroke, encephalitis, hypovolemic, arrhythmia, coronary artery syndrome, anemia, this is not meant to be an all-inclusive list EKG interpreted by me (3pts min.). @ -As above X-rays interpreted by me (1pt min.). @ -None done CT interpreted by me (1pt min.). @ -None done U/S interpreted by me (1pt. min.). @ -None done What testing was considered but not performed or refused? (CT, X-rays, U/S, labs)? Why? @ -None What meds were considered but not given or refused? Why? @ -None Did you discuss the management of the patient with other professionals (professionals i.e. , PA, BRIM ROUNDER, lab, RT, psych nurse, community mental health social worker, emergency detail driver, teacher, psychological operations officer, case filler)? Give summary @ -No Was smoking cessation discussed for >3mins.? @ -No Was critical care preformed (if so, how long)? @ -No Were there social determinants of health that impacted care today? How? (Homelessness, low income, unemployed, alcoholism, drug addiction, transportation, low edu. Level, literacy, decrease access to med. care, long-term, rehab)? @ -No Was there de-escalation of care discussed even if they declined (Discuss DNR or withdrawal of care, Hospice)? DNR status @ -No What co-morbidities impacted this encounter? (DM, HTN, Smoking, COPD, CAD, Cancer, CVA, ARF, Chemo, Hep., AIDS, mental health diagnosis, sleep apnea, morbid obesity)? @ -None Was patient admitted / discharged? Hospital course, mention meds given and route, prescriptions, significant lab abnormalities, going to OR and other pertinent info. @ -Patient with chronic problems with alcohol and chronic pain presents with chronic symptoms. Patient denies any new symptoms. Patient reevaluated. Patient refuses any further testing and requesting discharge home. Patient symptoms have improved. Patient is alert and oriented. Steady gait. Undiagnosed new problem with uncertain prognosis? @ -No Drug Therapy requiring intensive monitoring for toxicity (Heparin, Nitro, Insulin, Cardizem)? @ -No Were any procedures done? @ -No Diagnosis/symptom? @ -Alcohol Acute, or Chronic, or Acute on Chronic? @ -Acute on chronic Uncomplicated (without systemic symptoms) or Complicated (systemic symptoms)? @ -Complicated with chronic chest pain Side effects of treatment? @ -No Exacerbation, Progression, or Severe Exacerbation? @ -No Poses a threat to life or bodily function? How? (Chest pain, [place], [place], pneumonia, PE, COPD, DKA, ARF, appy, cholecystitis, CVA, Diverticulitis, Homicidal, Suicidal, threat to staff... and all critical care pts) @ -No Disposition Clinical Impression: Alcohol abuse Disposition: HOME SELF-CARE Condition: Stable Instructions (If sedation given, give patient instructions): Chest Pain (ED), Alcohol Intoxication (ED) Additional Instructions: Please follow-up with your doctor tomorrow. Discontinue alcohol use. Return for chest pain, worsening or changing symptoms or other concerns. Is patient prescribed a controlled substance at d/c from ED?: No Referrals: Theodore Arceo MD [Primary Care Provider] - 1-2 days Time of Disposition: 19:39
[2024-11-27 20:13] VITALS: BP 130/86; PULSE 70; RESP 15; TEMP 98
== END 2024-11-27 20:12 | disposition home or self-care (01) ==
LOC: EC 16:17
DX: F10.10 Alcohol abuse, uncomplicated (principal); F17.200 Nicotine dependence, unspecified, uncomplicated; Z88.0 Allergy status to penicillin; Z88.6 Allergy status to analgesic agent; Z88.8 Allergy status to other drugs, medicaments and biological substances
CPT/HCPCS: 93005; 99284

== ENCOUNTER 2024-11-29 19:36 | Emergency (ER) | payer OTHER ==
[2024-11-29 19:46] VITALS: BP 160/94; PULSE 86; RESP 18; TEMP 98.2
--- NOTE | 2024-11-29 19:57 | ED ---
General Adult HPI - General Chief complaint: Recheck/Abnormal Lab/Rx Stated complaint: ETOH Time Seen by Provider: 11/29/24 19:37 Source: patient, EMS, RN notes reviewed Mode of arrival: EMS Limitations: no limitations - History of Present Illness Initial comments: 58-year-old female presents emergency department via EMS chief complaint of wanting her blood pressure checked. Patient has been seen almost daily in the emergency department for similar complaints including chest pain blood pressure issues and alcohol abuse. Patient states that she did drink some alcohol today but not much she is awake alert and orientated. Patient is able to ambulate. Patient denies any chest pain headache dizziness back pain. She states she is attempting to get to rehab. - Related Data Home Medications Medication Instructions Recorded Confirmed levETIRAcetam [Keppra] 500 mg PO BID 11/18/24 11/18/24 Allergies Allergy/AdvReac Type Severity Reaction Status Date / Time acetaminophen [From Tylenol] Allergy Unknown Verified 11/29/24 19:45 Penicillins Allergy Rash/Hives/Swelling Verified 11/29/24 19:45 all over body NSAIDS (Non-Steroidal AdvReac Unknown upset Verified 11/29/24 19:45 Anti-Inflamma stomach sertraline HCl [From Zoloft] AdvReac Suicidal/Ag Verified 11/29/24 19:45 ression Review of Systems ROS Statement: Those systems with pertinent positive or pertinent negative responses have been documented in the HPI. ROS Other: All systems not noted in ROS Statement are negative. Past Medical History Past Medical History: Cancer, COPD, Hypertension, Liver Disease, Myocardial Infarction ([place]), Seizure Disorder, Vascular Disorder Additional Past Medical History / Comment(s): constpation, feeling bloated,feeling of fullness, and abdominal pain, feels hungry then over eats then vomits to feel better, LAST SEIZURE - JANUARY 2021, "broken heart syndrome"., elevated liver enzymes, "dislocated disks", hx cervical cancer, etoh abuse Last Myocardial Infarction Date:: 2019 History of Any Multi-Drug Resistant Organisms: None Reported Past Surgical History: Section, Heart Catheterization, Tubal Ligation Additional Past Surgical History / Comment(s): ORIF rt ankle/hardware later removed, exploratory lap, PAIN CLINIC PROCEDURE, BILAT CATARACTS REMOVED WITH LENS IMPLANTS, procedure to open a vein in left leg-couldn't confirm which leg, partial amputation rt hand middle finger, "procedure to remove cervical cancer" Past Anesthesia/Blood Transfusion Reactions: No Reported Reaction Past Psychological History: Anxiety, Bipolar, Depression, PTSD Smoking Status: Current every day smoker Past Alcohol Use History: Abuse, Daily, Heavy Past Drug Use History: Marijuana - Past Family History Father Family Medical History: Cancer, Prostate Disorder, Pulmonary Embolus Sister(s) Family Medical History: Cancer Brother(s) Family Medical History: Cancer Additional Family Medical History / Comment(s): colon and bladder General Exam Limitations: no limitations General appearance: alert, in no apparent distress Head exam: Present: atraumatic, normocephalic, normal inspection Eye exam: Present: normal appearance, PERRL, EOMI. Absent: scleral icterus, conjunctival injection, periorbital swelling ENT exam: Present: normal exam, normal oropharynx, mucous membranes moist Neck exam: Present: normal inspection, full ROM. Absent: tenderness, meningismus, lymphadenopathy Respiratory exam: Present: normal lung sounds bilaterally. Absent: respiratory distress, wheezes, rales, rhonchi, stridor Cardiovascular Exam: Present: regular rate, normal rhythm, normal heart sounds. Absent: systolic murmur, diastolic murmur, rubs, gallop, clicks GI/Abdominal exam: Present: soft, normal bowel sounds. Absent: distended, tenderness, guarding, rebound, rigid Neurological exam: Present: alert, oriented X3, CN II-XII intact, reflexes normal. Absent: motor sensory deficit Skin exam: Present: warm, dry, intact, normal color. Absent: rash Course Vital Signs 11/29/24 19:40 Temperature 98.2 F Pulse Rate 86 Respiratory 18 Rate Blood Pressure 160/94 O2 Sat by Pulse 95 Oximetry EKG Findings - EKG Comments: EKG Findings:: Rhythm rate of 81 SD 177 QRS 88 QT/QTc 366/403 - EKG Results: EKG: interpreted by CORE[facility]D Medical Decision Making - Medical Decision Making Was pt. sent in by a medical professional or institution (, PA, CLOSING AGENT, urgent care, hospital, or snf...) When possible be specific @ -No Did you speak to anyone other than the patient for history (EMS, parent, family, police, friend...)? What history was obtained from this source @ -No Did you review nursing and triage notes (agree or disagree)? Why? @ -I reviewed and agree with nursing and triage notes Were old charts reviewed (outside hosp., previous admission, EMS record, old EKG, old radiological studies, urgent care reports/EKG's, snf records)? Report findings @ -No old charts were reviewed Differential Diagnosis (chest pain, altered mental status, abdominal pain women, abdominal pain men, vaginal bleeding, weakness, fever, dyspnea, syncope, head ache, dizziness, GI bleed, back pain, seizure, CVA, palpatations, mental health, musculoskeletal)? @ -Alcohol abuse alcohol intoxication hypertension anxiety EKG interpreted by me (3pts min.). @ -As above X-rays interpreted by me (1pt min.). @ -None done CT interpreted by me (1pt min.). @ -None done U/S interpreted by me (1pt. min.). @ -None done What testing was considered but not performed or refused? (CT, X-rays, U/S, labs)? Why? @ -None What meds were considered but not given or refused? Why? @ -None Did you discuss the management of the patient with other professionals (professionals i.e. , PA, CLOSING AGENT, lab, RT, psych nurse, social work program coordinator, coal hauler operator, teacher, licensed loan officer, classification case manager)? Give summary @ -No Was smoking cessation discussed for >3mins.? @ -No Was critical care preformed (if so, how long)? @ -No Were there social determinants of health that impacted care today? How? (Homelessness, low income, unemployed, alcoholism, drug addiction, transportation, low edu. Level, literacy, decrease access to med. care, intermediate, rehab)? @ -No Was there de-escalation of care discussed even if they declined (Discuss DNR or withdrawal of care, Hospice)? DNR status @ -No What co-morbidities impacted this encounter? (DM, HTN, Smoking, COPD, CAD, Cancer, CVA, ARF, Chemo, Hep., AIDS, mental health diagnosis, sleep apnea, morbid obesity)? @ -Alcohol abuse Was patient admitted / discharged? Hospital course, mention meds given and route, prescriptions, significant lab abnormalities, going to OR and other pertinent info. @ -Discharge patient has no signs distress. Patient will be discharged in stable condition with follow-up PCP and advised to go to alcohol rehab. Undiagnosed new problem with uncertain prognosis? @ -No Drug Therapy requiring intensive monitoring for toxicity (Heparin, Nitro, Insulin, Cardizem)? @ -No Were any procedures done? @ -No Diagnosis/symptom? @ -Alcohol abuse hypertension Acute, or Chronic, or Acute on Chronic? @ -acute Uncomplicated (without systemic symptoms) or Complicated (systemic symptoms)? @ -uncomplicated Side effects of treatment? @ -No Exacerbation, Progression, or Severe Exacerbation? @ -No Poses a threat to life or bodily function? How? (Chest pain, [place], [place], pneumonia, PE, COPD, DKA, ARF, appy, cholecystitis, CVA, Diverticulitis, Homicidal, Suicidal, threat to staff... and all critical care pts) @ -No Disposition Clinical Impression: Alcohol abuse, Hypertension Disposition: HOME SELF-CARE Condition: Stable Additional Instructions: Please return to the Emergency Department if symptoms worsen or any other concerns. Is patient prescribed a controlled substance at d/c from ED?: No Referrals: Theodore Arceo MD [Primary Care Provider] - 1-2 days Time of Disposition: 19:57
== END 2024-11-29 20:09 | disposition home or self-care (01) ==
LOC: EC 19:36
DX: F10.10 Alcohol abuse, uncomplicated (principal); I10 Essential (primary) hypertension; F17.200 Nicotine dependence, unspecified, uncomplicated; Z88.0 Allergy status to penicillin; Z88.6 Allergy status to analgesic agent; Z88.8 Allergy status to other drugs, medicaments and biological substances
CPT/HCPCS: 93005; 99284

== ENCOUNTER 2024-12-01 20:42 | Emergency (ER) | payer OTHER ==
[2024-12-01 20:52] VITALS: RESP 18; TEMP 98.2
--- NOTE | 2024-12-01 21:15 | ED ---
Seizure HPI - General Chief Complaint: Seizure Stated Complaint: ETOH Time Seen by Provider: 12/01/24 21:09 Source: patient, EMS, RN notes reviewed Mode of arrival: EMS - History of Present Illness Initial Comments: 58-year-old female with history of alcohol use disorder well-known to the emergency department presenting for multiple complaints. States she had several drinks this afternoon and began to experience some chest discomfort and shortness of breath. Patient has been seen almost daily for similar complaints and has had several negative workups. States she is currently planning on getting into rehab - Related Data Home Medications Medication Instructions Recorded Confirmed levETIRAcetam [Keppra] 500 mg PO BID 11/18/24 11/18/24 Allergies Allergy/AdvReac Type Severity Reaction Status Date / Time acetaminophen [From Tylenol] Allergy Unknown Verified 11/29/24 19:45 Penicillins Allergy Rash/Hives/Swelling Verified 11/29/24 19:45 all over body NSAIDS (Non-Steroidal AdvReac Unknown upset Verified 11/29/24 19:45 Anti-Inflamma stomach sertraline HCl [From Zoloft] AdvReac Suicidal/Ag Verified 11/29/24 19:45 ression Review of Systems ROS Statement: Those systems with pertinent positive or pertinent negative responses have been documented in the HPI. ROS Other: All systems not noted in ROS Statement are negative. Past Medical History Past Medical History: Cancer, COPD, Hypertension, Liver Disease, Myocardial Infarction ([place]), Seizure Disorder, Vascular Disorder Additional Past Medical History / Comment(s): constpation, feeling bloated,feeling of fullness, and abdominal pain, feels hungry then over eats then vomits to feel better, LAST SEIZURE - JANUARY 2021, "broken heart syndrome"., elevated liver enzymes, "dislocated disks", hx cervical cancer, etoh abuse Last Myocardial Infarction Date:: 2019 History of Any Multi-Drug Resistant Organisms: None Reported Past Surgical History: Section, Heart Catheterization, Tubal Ligation Additional Past Surgical History / Comment(s): ORIF rt ankle/hardware later stan rufino, exploratory lap, PAIN CLINIC PROCEDURE, BILAT CATARACTS REMOVED WITH LENS IMPLANTS, procedure to open a vein in left leg-couldn't confirm which leg, partial amputation rt hand middle finger, "procedure to remove cervical cancer" Past Anesthesia/Blood Transfusion Reactions: No Reported Reaction Past Psychological History: Anxiety, Bipolar, Depression, PTSD Smoking Status: Current every day smoker Past Alcohol Use History: Abuse, Daily, Heavy Past Drug Use History: Marijuana - Past Family History Father Family Medical History: Cancer, Prostate Disorder, Pulmonary Embolus Sister(s) Family Medical History: Cancer Brother(s) Family Medical History: Cancer Additional Family Medical History / Comment(s): colon and bladder General Exam General appearance: alert, in no apparent distress Head exam: Present: atraumatic, normocephalic, normal inspection Eye exam: Present: normal appearance, PERRL, EOMI. Absent: scleral icterus, conjunctival injection, periorbital swelling Respiratory exam: Present: normal lung sounds bilaterally. Absent: respiratory distress, wheezes, rales, rhonchi, stridor Cardiovascular Exam: Present: regular rate, normal rhythm, normal heart sounds. Absent: systolic murmur, diastolic murmur, rubs, gallop, clicks GI/Abdominal exam: Present: soft, normal bowel sounds. Absent: distended, tenderness, guarding, rebound, rigid Neurological exam: Present: alert, oriented X3 Psychiatric exam: Present: normal affect, normal mood. Absent: homicidal ideation, suicidal ideation Skin exam: Present: warm, dry, intact, normal color. Absent: rash Course Vital Signs 12/01/24 20:44 Temperature 98.2 F Pulse Rate 92 Respiratory 18 Rate Blood Pressure 165/116 O2 Sat by Pulse 98 Oximetry Medical Decision Making - Medical Decision Making Was pt. sent in by a medical professional or institution (, PA, E COMMERCE RETAILER, urgent care, hospital, or retirement...) When possible be specific @ -No Did you speak to anyone other than the patient for history (EMS, parent, family, police, friend...)? What history was obtained from this source @ -No Did you review nursing and triage notes (agree or disagree)? Why? @ -I reviewed and agree with nursing and triage notes Were old charts reviewed (outside hosp., previous admission, EMS record, old EKG, old radiological studies, urgent care reports/EKG's, retirement records)? Report findings @ -Previous ER charts reviewed including lab work and EKGs which are unremarkable Differential Diagnosis (chest pain, altered mental status, abdominal pain women, abdominal pain men, vaginal bleeding, weakness, fever, dyspnea, syncope, headache, dizziness, GI bleed, back pain, seizure, CVA, palpatations, mental health, musculoskeletal)? @ -Alcohol use disorder, alcohol intoxication, alcohol withdrawal, anxiety EKG interpreted by me (3pts min.). @ -As above X-rays interpreted by me (1pt min.). @ -None done CT interpreted by me (1pt min.). @ -None done U/S interpreted by me (1pt. min.). @ -None done What testing was considered but not performed or refused? (CT, X-rays, U/S, labs)? Why? @ -None What meds were considered but not given or refused? Why? @ -None Did you discuss the management of the patient with other professionals (professionals i.e. , PA, E COMMERCE RETAILER, lab, RT, psych nurse, director of social work, corporate lawyer, teacher, strategic debriefing officer, rn field case manager)? Give summary @ -No Was smoking cessation discussed for >3mins.? @ -No Was critical care preformed (if so, how long)? @ -No Were there social determinants of health that impacted care today? How? (Homelessness, low income, unemployed, alcoholism, drug addiction, transportation, low edu. Level, literacy, decrease access to med. care, snf, rehab)? @ -No Was there de-escalation of care discussed even if they declined (Discuss DNR or withdrawal of care, Hospice)? DNR status @ -No What co-morbidities impacted this encounter? (DM, HTN, Smoking, COPD, CAD, Cancer, CVA, ARF, Chemo, Hep., AIDS, mental health diagnosis, sleep apnea, morbid obesity)? @ -None Was patient admitted / discharged? Hospital course, mention meds given and route, prescriptions, significant lab abnormalities, going to OR and other pertinent info. @ -Discharge. 58-year-old female well-known to the emergency department presenting for multiple complaints including chest pain after having several alcoholic drinks this afternoon. Patient has been seen almost daily for same complaints and has had negative workups. Patient is alert and oriented and has a steady gait. EKG reveals normal sinus rhythm with no acute ST changes. Patient is planning on going to rehab for alcohol use disorder. States she would like to be discharged so she can be with her boyfriend. Patient will be provided with a cab. Appropriate return precautions and follow-up care discussed. Case was discussed with my ED attending Dr. Ibrahim. Undiagnosed new problem with uncertain prognosis? @ -No Drug Therapy requiring intensive monitoring for toxicity (Heparin, Nitro, Insulin, Cardizem)? @ -No Were any procedures done? @ -No Diagnosis/symptom? @ -Acute alcohol intoxication Acute, or Chronic, or Acute on Chronic? @ -Acute Uncomplicated (without systemic symptoms) or Complicated (systemic symptoms)? @ -Uncomplicated Side effects of treatment? @ -No Exacerbation, Progression, or Severe Exacerbation? @ -No Poses a threat to life or bodily function? How? (Chest pain, [place], [place], pneumonia, PE, COPD, DKA, ARF, appy, cholecystitis, CVA, Diverticulitis, Homicidal, Suicidal, threat to staff... and all critical care pts) @ -Unlikely at this time - EKG Data -: EKG Interpreted by Me EKG Comments: EKG reveals normal sinus rhythm with no acute ST changes. Ventricular rate 69 bpm, AL interval 173, QRS duration 99, QT/QTc 413/432 Disposition Clinical Impression: Alcohol intoxication Disposition: HOME SELF-CARE Condition: Stable Additional Instructions: Follow-up with your PCP. Please return to the Emergency Department if symptoms worsen or any other concerns. Is patient prescribed a controlled substance at d/c from ED?: No Referrals: Theodore Arceo MD [Primary Care Provider] - 1-2 days Time of Disposition: 22:04
[2024-12-01 22:11] VITALS: BP 127/87; PULSE 89
== END 2024-12-01 22:22 | disposition home or self-care (01) ==
LOC: EC 20:42
DX: F10.129 Alcohol abuse with intoxication, unspecified (principal); F17.200 Nicotine dependence, unspecified, uncomplicated; Z88.0 Allergy status to penicillin; Z88.6 Allergy status to analgesic agent; Z88.8 Allergy status to other drugs, medicaments and biological substances; Y90.9 Presence of alcohol in blood, level not specified
CPT/HCPCS: 93005; 99285

== ENCOUNTER 2024-12-02 23:19 | Emergency (ER) | payer OTHER ==
--- NOTE | 2024-12-03 00:11 | ED ---
Alcohol HPI - General Chief Complaint: Alcohol Stated Complaint: ETOH Time Seen by Provider: 12/02/24 23:22 Source: patient, EMS, RN notes reviewed, old records reviewed Mode of arrival: EMS Limitations: no limitations - History of Present Illness Initial Comments: This is 58 female to the ER for evaluation of anxiety and alcohol intoxication. Patient is well-known to this facility initially comes to the emergency department on a daily basis. 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 Previous Visits for Alcohol Intoxication?: Yes Recent Trauma: Yes Associated Symptoms: denies other symptoms Treatments Prior to Arrival: other Chronic Alcohol Use: Yes - Related Data Home Medications Medication Instructions Recorded Confirmed levETIRAcetam [Keppra] 500 mg PO BID 11/18/24 11/18/24 Allergies Allergy/AdvReac Type Severity Reaction Status Date / Time acetaminophen [From Tylenol] Allergy Unknown Verified 12/02/24 23:23 Penicillins Allergy Rash/Hives/Swelling Verified 12/02/24 23:23 all over body NSAIDS (Non-Steroidal AdvReac Unknown upset Verified 12/02/24 23:23 Anti-Inflamma stomach sertraline HCl [From Zoloft] AdvReac Suicidal/Ag Verified 12/02/24 23:23 ression Review of Systems ROS Statement: Those systems with pertinent positive or pertinent negative responses have been documented in the HPI. ROS Other: All systems not noted in ROS Statement are negative. Past Medical History Past Medical History: Cancer, COPD, Hypertension, Liver Disease, Myocardial Infarction ([place]), Seizure Disorder, Vascular Disorder Additional Past Medical History / Comment(s): constpation, feeling bloated,feeling of fullness, and abdominal pain, feels hungry then over eats then vomits to feel better, LAST SEIZURE - JANUARY 2021, "broken heart syndrome"., elevated liver enzymes, "dislocated disks", hx cervical cancer, etoh abuse Last Myocardial Infarction Date:: 2019 History of Any Multi-Drug Resistant Organisms: None Reported Past Surgical History: Section, Heart Catheterization, Tubal Ligation Additional Past Surgical History / Comment(s): ORIF rt ankle/hardware later removed, exploratory lap, PAIN CLINIC PROCEDURE, BILAT CATARACTS REMOVED WITH LENS IMPLANTS, procedure to open a vein in left leg-couldn't confirm which leg, partial amputation rt hand middle finger, "procedure to remove cervical cancer" Past Anesthesia/Blood Transfusion Reactions: No Reported Reaction Past Psychological History: Anxiety, Bipolar, Depression, PTSD Smoking Status: Current every day smoker Past Alcohol Use History: Abuse, Daily, Heavy Past Drug Use History: Marijuana - Past Family History Father Family Medical History: Cancer, Prostate Disorder, Pulmonary Embolus Sister(s) Family Medical History: Cancer Brother(s) Family Medical History: Cancer Additional Family Medical History / Comment(s): colon and bladder General Exam General appearance: alert, in no apparent distress, appears intoxicated, anxious Head exam: Present: atraumatic, normocephalic, normal inspection Eye exam: Present: normal appearance, PERRL, EOMI. Absent: scleral icterus, conjunctival injection, periorbital swelling ENT exam: Present: normal exam, mucous membranes moist Neck exam: Present: normal inspection. Absent: tenderness, meningismus, lymphadenopathy Respiratory exam: Present: normal lung sounds bilaterally. Absent: respiratory distress, wheezes, rales, rhonchi, stridor Cardiovascular Exam: Present: regular rate, normal rhythm, normal heart sounds. Absent: systolic murmur, diastolic murmur, rubs, gallop, clicks GI/Abdominal exam: Present: soft, normal bowel sounds. Absent: distended, tenderness, guarding, rebound, rigid Extremities exam: Present: normal inspection, full ROM, normal capillary refill. Absent: tenderness, pedal edema, joint swelling, calf tenderness Back exam: Present: normal inspection Neurological exam: Present: alert, oriented X3, CN II-XII intact Psychiatric exam: Present: normal affect, normal mood Skin exam: Present: warm, dry, intact, normal color. Absent: rash Course Vital Signs 12/02/24 23:23 Temperature 98.3 F Pulse Rate 78 Respiratory 18 Rate Blood Pressure 145/88 O2 Sat by Pulse 98 Oximetry - Reevaluation(s) Reevaluation #1: 12/03/24 00:31 Medical records reviewed Reevaluation #2: 12/03/24 00:31 Patient is in no acute distress able to ambulate appropriately awake and alert would like to go home Reevaluation #3: 12/03/24 00:31 Patient informed of results questions answered Reevaluation #4: Was pt. sent in by a medical professional or institution (, PA, CASHIER OFFICE, urgent care, hospital, or residential...) When possible be specific @ -no Did you speak to anyone other than the patient for history (EMS, parent, family, police, friend...)? What history was obtained from this source @ -no Did you review nursing and triage notes (agree or disagree)? Why? @ -agree Are old charts reviewed (outside hosp., previous admission, EMS record, old EKG, old radiological studies, urgent care reports/EKG's, residential records)? Report findings @ -yes Differential Diagnosis (chest pain, altered mental status, abdominal pain women, abdominal pain men, vaginal bleeding, weakness, fever, dyspnea, syncope, headache, dizziness, GI bleed, back pain, seizure, CVA, palpatations, mental health, musculoskeletal)? @ -prior EKG interpreted by me (3pts min.). @ -yes X-rays interpreted by me (1pt min.). @ -yes negative for acute disease CT interpreted by me (1pt min.). @ -no U/S interpreted by me (1pt. min.). @ -no What testing was considered but not performed or refused? (CT, X-rays, U/S, labs)? Why? @ -none What meds were considered but not given or refused? Why? @ -none Did you discuss the management of the patient with other professionals (professionals i.e. , PA, CASHIER OFFICE, lab, RT, psych nurse, social work msw, thermodynamics professor, teacher, radiation officer, case worker)? Give summary @ -no Was smoking cessation discussed for >3mins.? @ -no Was critical care preformed (if so, how long)? @ -no Were there social determinants of health that impacted care today? How? (Homelessness, low income, unemployed, alcoholism, drug addiction, transportation, low edu. Level, literacy, decrease access to med. care, senior living, rehab)? @ -none Was there de-escalation of care discussed even if they declined (Discuss DNR or withdrawal of care, Hospice)? DNR status @ -no What co-morbidities impacted this encounter? (DM, HTN, Smoking, COPD, CAD, Cancer, CVA, ARF, Chemo, Hep., AIDS, mental health diagnosis, sleep apnea, morbid obesity)? @ -none Was patient admitted / discharged? Hospital course, mention meds given and route, prescriptions, significant lab abnormalities, going to OR and other pertinent info. @ - Undiagnosed new problem with uncertain prognosis? @ -no Drug Therapy requiring intensive monitoring for toxicity (Heparin, Nitro, Insulin, Cardizem)? @ -no Were any procedures done? @ -no Diagnosis/symptom? @ - Acute, or Chronic, or Acute on Chronic? @ -Acute Uncomplicated (without systemic symptoms) or Complicated (systemic symptoms)? @ -Complicated Side effects of treatment? @ -no Exacerbation, Progression, or Severe Exacerbation? @ -exacerbation Poses a threat to life or bodily function? How? (Chest pain, [place], [place], pneumonia, PE, COPD, DKA, ARF, appy, cholecystitis, CVA, Diverticulitis, Homicidal, Suicidal, threat to staff... and all critical care pts) @ -yes Reevaluation #5: Differential Altered Mental Status: Hypoglycemia, DKA, hypercapnia, ETOH, overdose, CO poisoning, trauma, myxedema coma, HTN encephalopathy, infection, encephalitis, psychosis, intercranial h emorrhage, hepatic encephalopathy, meningitis, CVA, this is not meant to be an all-inclusive list Medical Decision Making - Medical Decision Making 58 female for alcohol intoxication with anxiety. Symptoms resolved here in the ER feels well and would like to be discharged home Disposition Clinical Impression: Anxiety, Alcohol intoxication Disposition: HOME SELF-CARE Condition: Fair Instructions (If sedation given, give patient instructions): Alcohol Intoxication (ED) Is patient prescribed a controlled substance at d/c from ED?: No Referrals: Theodore Arceo MD [Primary Care Provider] - 1-2 days Time of Disposition: 01:00
[2024-12-03 00:36] VITALS: TEMP 97.5
[2024-12-03] MEDS: LORazepam 1 MG TAB PO STA ×2 (01:27→02:10)
[2024-12-03 02:29] VITALS: BP 114/70; PULSE 70; RESP 18
== END 2024-12-03 02:29 | disposition home or self-care (01) ==
LOC: EC 23:19
DX: F10.129 Alcohol abuse with intoxication, unspecified (principal); F41.9 Anxiety disorder, unspecified; F17.200 Nicotine dependence, unspecified, uncomplicated; Z88.0 Allergy status to penicillin; Z88.6 Allergy status to analgesic agent; Z88.8 Allergy status to other drugs, medicaments and biological substances; Y90.9 Presence of alcohol in blood, level not specified
CPT/HCPCS: 99283

== ENCOUNTER 2024-12-08 20:00 | Emergency (ER) | payer OTHER ==
[2024-12-08 20:14] VITALS: RESP 16
--- NOTE | 2024-12-08 20:23 | ED ---
General Adult HPI - General Chief complaint: Recheck/Abnormal Lab/Rx Stated complaint: Chest Pain Time Seen by Provider: 12/08/24 20:13 Source: patient Mode of arrival: EMS Limitations: no limitations - History of Present Illness Initial comments: Dictation was produced using [employer] dictation software. please excuse any grammatical, word or spelling errors. Chief Complaint: 58-year-old female well-known to the emergency department for alcohol intoxication presents with chest pain History of Present Illness: Patient 58-year-old female presents to the emergency department for chest pain. Patient is well-known to the emergency department for alcohol abuse. Patient frequents the ER. States that she had some chest pain earlier. Has undergone extensive chest pain workup on multiple occasions in the past. Most recently she was admitted earlier this month with cardiology consultation. Acute coronary syndrome was ruled out patient was discharged. Patient requesting to go home. States that she did have some mild chest pain earlier. The ROS documented in this emergency department record has been reviewed and confirmed by me. Those systems with pertinent positive or negative responses have been documented in the HPI. All other systems are other negative and/or noncontributory. - Related Data Home Medications Medication Instructions Recorded Confirmed levETIRAcetam [Keppra] 500 mg PO BID 11/18/24 11/18/24 Allergies Allergy/AdvReac Type Severity Reaction Status Date / Time acetaminophen [From Tylenol] Allergy Unknown Verified 12/08/24 20:13 Penicillins Allergy Rash/Hives/Swelling Verified 12/08/24 20:13 all over body NSAIDS (Non-Steroidal AdvReac Unknown upset Verified 12/08/24 20:13 Anti-Inflamma stomach sertraline HCl [From Zoloft] AdvReac Suicidal/Ag Verified 12/08/24 20:13 ression Review of Systems ROS Statement: Those systems with pertinent positive or pertinent negative responses have been documented in the HPI. ROS Other: All systems not noted in ROS Statement are negative. Past Medical History Past Medical History: Cancer, COPD, Hypertension, Liver Disease, Myocardial Infarction ([place]), Seizure Disorder, Vascular Disorder Additional Past Medical History / Comment(s): constpation, feeling bloated,feeling of fullness, and abdominal pain, feels hungry then over eats then vomits to feel better, LAST SEIZURE - JANUARY 2021, "broken heart syndrome"., elevated liver enzymes, "dislocated disks", hx cervical cancer, etoh abuse Last Myocardial Infarction Date:: 2019 History of Any Multi-Drug Resistant Organisms: None Reported Past Surgical History: Section, Heart Catheterization, Tubal Ligation Additional Past Surgical History / Comment(s): ORIF rt ankle/hardware later removed, exploratory lap, PAIN CLINIC PROCEDURE, BILAT CATARACTS REMOVED WITH L ENS IMPLANTS, procedure to open a vein in left leg-couldn't confirm which leg, partial amputation rt hand middle finger, "procedure to remove cervical cancer" Past Anesthesia/Blood Transfusion Reactions: No Reported Reaction Past Psychological History: Anxiety, Bipolar, Depression, PTSD Smoking Status: Current every day smoker Past Alcohol Use History: Abuse, Daily, Heavy Past Drug Use History: Marijuana - Past Family History Father Family Medical History: Cancer, Prostate Disorder, Pulmonary Embolus Sister(s) Family Medical History: Cancer Brother(s) Family Medical History: Cancer Additional Family Medical History / Comment(s): colon and bladder General Exam - General Exam Comments Initial Comments: PHYSICAL EXAM: General Impression: Alert and oriented x3, not in acute distress HEENT: Normocephalic atraumatic, extra-ocular movements intact, pupils equal and reactive to light bilaterally, mucous membranes moist. Cardiovascular: Heart regular rate and rhythm Chest: Able to complete full sentences, no retractions, no tachypnea Abdomen: abdomen soft, non-tender, non-distended, no organomegaly Musculoskeletal: Pulses present and equal in all extremities, no peripheral edema Motor: no focal deficits noted Neurological: CN II-XII grossly intact, no focal motor or sensory deficits noted Skin: Intact with no visualized rashes Psych: Normal affect and mood Limitations: no limitations Course Vital Signs 12/08/24 20:11 Temperature 98.1 F Pulse Rate 82 Respiratory 16 Rate Blood Pressure 125/77 O2 Sat by Pulse 97 Oximetry EKG Findings - EKG Comments: EKG Findings:: My EKG interpretation: Ventricular rate 77, sinus rhythm, RI 170, QRS 96, QTc 406. No RI prolongation, no QTC prolongation, no ST or T-wave changes noted. Overall, this EKG is unremarkable Medical Decision Making - Medical Decision Making Was pt. sent in by a medical professional or institution (, PA, INSURANCE ADVISER, urgent care, hospital, or long-term...) When possible be specific @ -No Did you speak to anyone other than the patient for history (EMS, parent, family, police, friend...)? What history was obtained from this source @ -No Did you review nursing and triage notes (agree or disagree)? Why? @ -I reviewed and agree with nursing and triage notes Were old charts reviewed (outside hosp., previous admission, EMS record, old EKG, old radiological studies, urgent care reports/EKG's, long-term records)? Report findings @ -Chart review was performed. Patient has had multiple workups for chest pain historically over the last several months. Dating back all the way to December 2022 has not had a positive troponin. Patient has had several cardiac workups with no life-threatening acute cardiopulmonary process. Differential Diagnosis (chest pain, altered mental status, abdominal pain women, abdominal pain men, vaginal bleeding, musculoskeletal, weakness, fever, dyspnea, syncope, headache, dizziness, GI bleed, back pain, seizure, CVA, palpatations, mental health)? @ -Differential Chest Pain: Stable Angina, Unstable Angina, STEMI, NSTEMI Aortic Dissection, Pneumothorax, Musculoskeletal, Esophageal Spasm GERD, Cholecystitis, Pancreatitis, Zoster, this is not meant to be an all-inclusive list. EKG interpreted by me (3pts min.). @ -See above X-rays interpreted by me (1pt min.). @ -None done CT interpreted by me (1pt min.). @ -None done U/S interpreted by me (1pt. min.). @ -None done What testing was considered but not performed or refused? (CT, X-rays, U/S, labs)? Why? @ -None What meds were considered but not given or refused? Why? @ -None Was smoking cessation discussed for >3mins.? @ -No Were there social determinants of health that impacted care today? How? (Homelessness, low income, unemployed, alcoholism, drug addiction, transportation, low edu. Level, literacy, decrease access to med. care, usp, rehab)? @ -No Was there de-escalation of care discussed even if they declined (Discuss DNR or withdrawal of care, Hospice)? DNR status @ -No What co-morbidities impacted this encounter? (DM, HTN, Smoking, COPD, CAD, Cancer, CVA, ARF, Chemo, Hep., AIDS, mental health diagnosis, sleep apnea, morbid obesity)? @ -None Was patient admitted / discharged? Hospital course, mention meds given and route, prescriptions, significant lab abnormalities, going to OR and other pertinent info. @ -58-year-old female well-known to the emergency department for alcohol intoxication and frequent visitations for chest pain. Vital signs stable. Patient well-appearing appears to be at her baseline. I had seen and evaluated this patient in multiple occasions. Patient has had multiple cardiac workups with no positive findings. Patient stable counseled on appropriate use of EMS and ER services. Patient discharge vies follow-up with primary care doctor Did you discuss the management of the patient with other professionals (professionals i.e. , PA, INSURANCE ADVISER, lab, RT, psych nurse, adoption social worker, commutator undercutter, teacher, geological technical officer, continuous pillowcase cutter)? Give summary @ -No Was critical care preformed (if so, how long)? @ -No Undiagnosed new problem with uncertain prognosis? @ -No Drug Therapy requiring intensive monitoring for toxicity (Heparin, Nitro, Insulin, Cardizem)? @ -No Were any procedures done? @ -No Diagnosis/symptom? Acute, or Chronic, or Acute on Chronic? Uncomplicated (without systemic symptoms) or Complicated (systemic symptoms)? @ -Chest pain Side effects of treatment? @ -No Exacerbation, Progression, or Severe Exacerbation? @ -No Poses a threat to life or bodily function? How? (Chest pain, [place], [place], pneumonia, PE, COPD, DKA, ARF, appy, cholecystitis, CVA, Diverticulitis, Homicidal, Suicidal, threat to staff... and all critical care pts) @ -No Disposition Clinical Impression: Chest pain Disposition: HOME SELF-CARE Condition: Good Instructions (If sedation given, give patient instructions): Chest Pain (ED) Is patient prescribed a controlled substance at d/c from ED?: No Referrals: Theodore Arceo MD [Primary Care Provider] - 1-2 days Time of Disposition: 20:22
[2024-12-08 20:27] VITALS: BP 126/78; PULSE 68; TEMP 98.7
== END 2024-12-08 20:26 | disposition home or self-care (01) ==
LOC: EC 20:00
DX: R07.9 Chest pain, unspecified (principal); F10.129 Alcohol abuse with intoxication, unspecified; F17.200 Nicotine dependence, unspecified, uncomplicated; Z88.0 Allergy status to penicillin; Z88.6 Allergy status to analgesic agent; Z88.8 Allergy status to other drugs, medicaments and biological substances
CPT/HCPCS: 99284

== ENCOUNTER 2024-12-13 16:51 | Emergency (ER) | payer OTHER ==
--- NOTE | 2024-12-13 17:26 | ED ---
General Adult HPI - General Chief complaint: Alcohol Stated complaint: ETOH Time Seen by Provider: 12/13/24 16:52 Source: patient, EMS, RN notes reviewed Mode of arrival: EMS Limitations: no limitations - History of Present Illness Initial comments: 58-year-old female presenting to the emergency department for alcohol intoxication. Patient admits to drinking alcohol. Patient has no complaints. Patient believes her fianc called EMS again however is unclear why he keeps doing this. Patient states she plans on going to rehab tomorrow. - Related Data Home Medications Medication Instructions Recorded Confirmed levETIRAcetam [Keppra] 500 mg PO BID 11/18/24 11/18/24 Allergies Allergy/AdvReac Type Severity Reaction Status Date / Time acetaminophen [From Tylenol] Allergy Unknown Verified 12/13/24 16:56 Penicillins Allergy Rash/Hives/Swelling Verified 12/13/24 16:56 all over body NSAIDS (Non-Steroidal AdvReac Unknown upset Verified 12/13/24 16:56 Anti-Inflamma stomach sertraline HCl [From Zoloft] AdvReac Suicidal/Ag Verified 12/13/24 16:56 ression Review of Systems ROS Statement: Those systems with pertinent positive or pertinent negative responses have been documented in the HPI. ROS Other: All systems not noted in ROS Statement are negative. Constitutional: Denies: fever Eyes: Denies: eye pain Respiratory: Denies: dyspnea Cardiovascular: Denies: chest pain Gastrointestinal: Denies: abdominal pain Musculoskeletal: Denies: back pain Neurological: Denies: weakness Past Medical History Past Medical History: Cancer, COPD, Hypertension, Liver Disease, Myocardial Infarction ([place]), Seizure Disorder, Vascular Disorder Additional Past Medical History / Comment(s): constpation, feeling bloated,feeling of fullness, and abdominal pain, feels hungry then over eats then vomits to feel better, LAST SEIZURE - JANUARY 2021, "broken heart syndrome"., elevated liver enzymes, "dislocated disks", hx cervical cancer, etoh abuse Last Myocardial Infarction Date:: 2019 History of Any Multi-Drug Resistant Organisms: None Reported Past Surgical History: Section, Heart Catheterization, Tubal Ligation Additional Past Surgical History / Comment(s): ORIF rt ankle/hardware later removed, exploratory lap, PAIN CLINIC PROCEDURE, BILAT CATARACTS REMOVED WITH LENS IMPLANTS, procedure to open a vein in left leg-couldn't confirm which leg, partial amputation rt hand middle finger, "procedure to remove cervical cancer" Past Anesthesia/Blood Transfusion Reactions: No Reported Reaction Past Psychological History: Anxiety, Bipolar, Depression, PTSD Smoking Status: Current every day smoker Past Alcohol Use History: Abuse, Daily, Heavy Past Drug Use History: Marijuana - Past Family History Father Family Medical History: Cancer, Prostate Disorder, Pulmonary Embolus Sister(s) Family Medical History: Cancer Brother(s) Family Medical History: Cancer Additional Family Medical History / Comment(s): colon and bladder General Exam Limitations: no limitations General appearance: alert, in no apparent distress Head exam: Present: atraumatic Eye exam: Present: normal appearance Neck exam: Present: normal inspection. Absent: tenderness Respiratory exam: Present: normal lung sounds bilaterally Cardiovascular Exam: Present: regular rate, normal rhythm GI/Abdominal exam: Present: soft. Absent: tenderness Extremities exam: Present: normal inspection Neurological exam: Present: alert, oriented X3. Absent: motor sensory deficit Psychiatric exam: Present: normal affect, normal mood Skin exam: Present: normal color Course Vital Signs 12/13/24 12/13/24 16:53 18:25 Temperature 97.4 F L Pulse Rate 83 65 Respiratory 20 18 Rate Blood Pressure 142/106 112/73 O2 Sat by Pulse 98 96 Oximetry Medical Decision Making - Medical Decision Making Was pt. sent in by a medical professional or institution (BENI Dill, [employer], urgent care, hospital, or longterm...) When possible be specific @ -No Did you speak to anyone other than the patient for history (EMS, parent, family, police, friend...)? What history was obtained from this source @ -No Did you review nursing and triage notes (agree or disagree)? Why? @ -I reviewed and agree with nursing and triage notes Were old charts reviewed (outside hosp., previous admission, EMS record, old EKG, old radiological studies, urgent care reports/EKG's, longterm records)? Report findings @ -No old charts were reviewed Differential Diagnosis (chest pain, altered mental status, abdominal pain women, abdominal pain men, vaginal bleeding, weakness, fever, dyspnea, syncope, headache, dizziness, GI bleed, back pain, seizure, CVA, palpatations, mental health, musculoskeletal)? @ -Differential Altered Mental Status: Hypoglycemia, DKA, hypercapnia, ETOH, overdose, CO poisoning, trauma, myxedema coma, HTN encephalopathy, infection, encephalitis, psychosis, intercranial hemorrhage, hepatic encephalopathy, meningitis, CVA, this is not meant to be an all-inclusive list EKG interpreted by me (3pts min.). @ -As above X-rays interpreted by me (1pt min.). @ -None done CT interpreted by me (1pt min.). @ -None done U/S interpreted by me (1pt. min.). @ -None done What testing was considered but not performed or refused? (CT, X-rays, U/S, labs)? Why? @ -None What meds were considered but not given or refused? Why? @ -None Did you discuss the management of the patient with other professionals (professionals i.e. , PA, [employer], lab, RT, psych nurse, social insurance specialist, project manager retail, teacher, physics technical officer, classification case manager)? Give summary @ -No Was smoking cessation discussed for >3mins.? @ -No Was critical care preformed (if so, how long)? @ -No Were there social determinants of health that impacted care today? How? (Homelessness, low income, unemployed, alcoholism, drug addiction, transportation, low edu. Level, literacy, decrease access to med. care, fdc, rehab)? @ -No Was there de-escalation of care discussed even if they declined (Discuss DNR or withdrawal of care, Hospice)? DNR status @ -No What co-morbidities impacted this encounter? (DM, HTN, Smoking, COPD, CAD, Cancer, CVA, ARF, Chemo, Hep., AIDS, mental health diagnosis, sleep apnea, morbid obesity)? @ -None Was patient admitted / discharged? Hospital course, mention meds given and route, prescriptions, significant lab abnormalities, going to OR and other pertinent info. @ -Patient presents to emergency department with concerns with alcohol intoxication. Patient admits to drinking frequently. Patient on reevaluation is alert and oriented x 3. Patient does demonstrate steady gait. Patient refuses to stay in the hospital. Patient is receptive to leaving via cab Undiagnosed new problem with uncertain prognosis? @ -No Drug Therapy requiring intensive monitoring for toxicity (Heparin, Nitro, Insuli n, Cardizem)? @ -No Were any procedures done? @ -No Diagnosis/symptom? @ -Alcohol intoxication Acute, or Chronic, or Acute on Chronic? @ -Acute on chronic Uncomplicated (without systemic symptoms) or Complicated (systemic symptoms)? @ -Default Side effects of treatment? @ -No Exacerbation, Progression, or Severe Exacerbation? @ -No Poses a threat to life or bodily function? How? (Chest pain, [place], [place], pneumonia, PE, COPD, DKA, ARF, appy, cholecystitis, CVA, Diverticulitis, Homicidal, Suicidal, threat to staff... and all critical care pts) @ -No Disposition Clinical Impression: Alcohol intoxication Disposition: HOME SELF-CARE Condition: Stable Instructions (If sedation given, give patient instructions): Alcohol Intoxication (ED) Additional Instructions: Follow-up with rehab tomorrow as planned. Discontinue alcohol use. Return for confusion, weakness, worsening symptoms or other concerns. Please do follow-up with your primary care physician in the next couple of days for recheck. Is patient prescribed a controlled substance at d/c from ED?: No Referrals: Theodore Arceo MD [Primary Care Provider] - 1-2 days Time of Disposition: 19:00
[2024-12-13] MEDS: THIAMINE 100 MG/ML 2 ML VIAL IM STA (17:36)
[2024-12-13 18:27] VITALS: RESP 18
[2024-12-13 19:09] VITALS: BP 119/78; PULSE 72; TEMP 97.7
== END 2024-12-13 19:09 | disposition home or self-care (01) ==
LOC: EC 16:51
DX: F10.129 Alcohol abuse with intoxication, unspecified (principal); F17.200 Nicotine dependence, unspecified, uncomplicated; Z88.0 Allergy status to penicillin; Z88.6 Allergy status to analgesic agent; Z88.8 Allergy status to other drugs, medicaments and biological substances; Y90.9 Presence of alcohol in blood, level not specified
CPT/HCPCS: 99283; 96372; J3411

== ENCOUNTER 2024-12-14 19:16 | Emergency (ER) | payer OTHER ==
[2024-12-14 19:34] VITALS: BP 146/88; PULSE 71; RESP 18; TEMP 97.7
--- NOTE | 2024-12-14 19:41 | ED ---
Alcohol HPI - General Source: patient, EMS, RN notes reviewed Mode of arrival: EMS Limitations: no limitations <Alona Moya - Last Filed: 12/14/24 19:40> <Sarah Vega - Last Filed: 12/15/24 00:47> - General Chief Complaint: Alcohol Stated Complaint: ETOH Time Seen by Provider: 12/14/24 19:40 - History of Present Illness Initial Comments: Quick [id number] female presenting for alcohol intoxication. States "I am going to rehab". No other complaints at this time. (Alona Moya) 58-year-old female well-known to the emergency department who presents today stating that she wants to go to rehab. Patient has known history of alcoholism. She has been seen in the emergency department several times for alcohol intoxication. Patient reports that she wants information in regards to rehab however patient has been provided with this information several times including twice by myself. Patient does admit to drinking several tall boys tonight. Denies any chest pain. No vomiting. No other alleviating, precipitating modifying factors (Sarah Vega) - Related Data Home Medications Medication Instructions Recorded Confirmed levETIRAcetam [Keppra] 500 mg PO BID 11/18/24 11/18/24 Allergies Allergy/AdvReac Type Severity Reaction Status Date / Time acetaminophen [From Tylenol] Allergy Unknown Verified 12/13/24 16:56 Penicillins Allergy Rash/Hives/Swelling Verified 12/13/24 16:56 all over body NSAIDS (Non-Steroidal AdvReac Unknown upset Verified 12/13/24 16:56 Anti-Inflamma stomach sertraline HCl [From Zoloft] AdvReac Suicidal/Ag Verified 12/13/24 16:56 ression Review of Systems ROS Other: All systems not noted in ROS Statement are negative. <Alona Moya - Last Filed: 12/14/24 19:40> ROS Other: All systems not noted in ROS Statement are negative. <Sarah Vega - Last Filed: 12/15/24 00:47> ROS Statement: Those systems with pertinent positive or pertinent negative responses have been documented in the HPI. Past Medical History Past Medical History: Cancer, COPD, Hypertension, Liver Disease, Myocardial Infarction ([place]), Seizure Disorder, Vascular Disorder Additional Past Medical History / Comment(s): constpation, feeling bloated,feeling of fullness, and abdominal pain, feels hungry then over eats then vomits to feel better, LAST SEIZURE - JANUARY 2021, "broken heart syndrome"., elevated liver enzymes, "dislocated disks", hx cervical cancer, etoh abuse Last Myocardial Infarction Date:: 2019 History of Any Multi-Drug Resistant Organisms: None Reported Past Surgical History: Section, Heart Catheterization, Tubal Ligation Additional Past Surgical History / Comment(s): ORIF rt ankle/hardware later removed, exploratory lap, PAIN CLINIC PROCEDURE, BILAT CATARACTS REMOVED WITH LENS IMPLANTS, procedure to open a vein in left leg-couldn't confirm which leg, partial amputation rt hand middle finger, "procedure to remove cervical cancer" Past Anesthesia/Blood Transfusion Reactions: No Reported Reaction Past Psychological History: Anxiety, Bipolar, Depression, PTSD Smoking Status: Current every day smoker Past Alcohol Use History: Abuse, Daily, Heavy Past Drug Use History: Marijuana - Past Family History Father Family Medical History: Cancer, Prostate Disorder, Pulmonary Embolus Sister(s) Family Medical History: Cancer Brother(s) Family Medical History: Cancer Additional Family Medical History / Comment(s): colon and bladder <Alona Moya - Last Filed: 12/14/24 19:40> General Exam Limitations: no limitations <Alona Moya - Last Filed: 12/14/24 19:40> General appearance: alert, appears intoxicated Head exam: Present: atraumatic, normocephalic, normal inspection Eye exam: Present: normal appearance, PERRL, EOMI. Absent: scleral icterus, conjunctival injection, periorbital swelling ENT exam: Present: normal exam, mucous membranes moist Neck exam: Present: normal inspection. Absent: tenderness, meningismus, lymphadenopathy Respiratory exam: Present: normal lung sounds bilaterally. Absent: respiratory distress, wheezes, rales, rhonchi, stridor Cardiovascular Exam: Present: regular rate, normal rhythm, normal heart sounds. Absent: systolic murmur, diastolic murmur, rubs, gallop, clicks GI/Abdominal exam: Present: soft, normal bowel sounds. Absent: distended, tenderness, guarding, rebound, rigid Extremities exam: Present: normal inspection, full ROM, normal capillary refill. Absent: tenderness, pedal edema, joint swelling, calf tenderness Back exam: Present: normal inspection Neurological exam: Present: alert, oriented X3, CN II-XII intact Psychiatric exam: Present: normal affect, normal mood Skin exam: Present: warm, dry, intact, normal color. Absent: rash <Sarah Vega - Last Filed: 12/15/24 00:47> - General Exam Comments Initial Comments: Visual Physical Exam Vital signs reviewed General: Well-appearing, nontoxic, no acute distress. Head: Normocephalic, atraumatic Eyes: PERRLA, EOMI ENT: Airway patent Chest: Nonlabored breathing Skin: No visual rash, normal skin tone Neuro: Alert and oriented 3 Musculoskeletal: No gross abnormalities (Alona Moya) Course Vital Signs 12/14/24 19:33 Temperature 97.7 F Pulse Rate 71 Respiratory 18 Rate Blood Pressure 146/88 O2 Sat by Pulse 97 Oximetry Medical Decision Making <Alona Moya - Last Filed: 12/14/24 19:40> <Sarah Vega - Last Filed: 12/15/24 00:47> - Medical Decision Making I completed the quick note portion of this chart signed Alona Moya PA-C (Alona Moya) Was pt. sent in by a medical professional or institution (, PA, CAMP HOUSEKEEPER, urgent care, hospital, or halfway...) When possible be specific @ -No Did you speak to anyone other than the patient for history (EMS, parent, family, police, friend...)? What history was obtained from this source @ -Spoke with EMS for history Did you review nursing and triage notes (agree or disagree)? Why? @ -I reviewed and agree with nursing and triage notes Were old charts reviewed (outside hosp., previous admission, EMS record, old EKG, old radiological studies, urgent care reports/EKG's, halfway records)? Report findings @ -No old charts were reviewed Differential Diagnosis (chest pain, altered mental status, abdominal pain women, abdominal pain men, vaginal bleeding, weakness, fever, dyspnea, syncope, headache, dizziness, GI bleed, back pain, seizure, CVA, palpatations, mental health, musculoskeletal)? @ -Differential Altered Mental Status: Hypoglycemia, DKA, hypercapnia, ETOH, overdose, CO poisoning, trauma, myxedema coma, HTN encephalopathy, infection, encephalitis, psychosis, intercranial hemorrhage, hepatic encephalopathy, meningitis, CVA, this is not meant to be an all-inclusive list EKG interpreted by me (3pts min.). @ -Not done X-rays interpreted by me (1pt min.). @ -None done CT interpreted by me (1pt min.). @ -None done U/S interpreted by me (1pt. min.). @ -None done What testing was considered but not performed or refused? (CT, X-rays, U/S, labs)? Why? @ -None What meds were considered but not given or refused? Why? @ -None Did you discuss the management of the patient with other professionals (professionals i.e. , PA, CAMP HOUSEKEEPER, lab, RT, psych nurse, oncology social work, utilization review rn, teacher, command and control officer, manager of case management)? Give summary @ -No Was smoking cessation discussed for >3mins.? @ -No Was critical care preformed (if so, how long)? @ -No Were there social determinants of health that impacted care today? How? (Homelessness, low income, unemployed, alcoholism, drug addiction, transportation, low edu. Level, literacy, decrease access to med. care, nursing home, rehab)? @ -No Was there de-escalation of care discussed even if they declined (Discuss DNR or withdrawal of care, Hospice)? DNR status @ -No What co-morbidities impacted this encounter? (DM, HTN, Smoking, COPD, CAD, Cancer, CVA, ARF, Chemo, Hep., AIDS, mental health diagnosis, sleep apnea, morbid obesity)? @ -Alcohol abuse Was patient admitted / discharged? Hospital course, mention meds given and route, prescriptions, significant lab abnormalities, going to OR and other pertinent info. @ -Upon arrival patient seen and evaluated in the waiting room. Patient is intoxicated and asking to go to rehab. I did inform the patient once again that she has to go to rehab on her own accord. We did recommend that the patient's stop drinking and follow-up with her doctor who may also assist her. Patient was discharged when she was clinically sober and a cab Undiagnosed new problem with uncertain prognosis? @ -No Drug Therapy requiring intensive monitoring for toxicity (Heparin, Nitro, Insulin, Cardizem)? @ -No Were any procedures done? @ -No Diagnosis/symptom? @ -Acute alcohol intoxication, chronic alcohol abuse Acute, or Chronic, or Acute on Chronic? @ -Acute on chronic Uncomplicated (without systemic symptoms) or Complicated (systemic symptoms)? @ -Complicated Side effects of treatment? @ -No Exacerbation, Progression, or Severe Exacerbation? @ -No Poses a threat to life or bodily function? How? (Chest pain, [place], [place], pneumonia, PE, COPD, DKA, ARF, appy, cholecystitis, CVA, Diverticulitis, Homicidal, Suicidal, threat to staff... and all critical care pts) @ -No (Sarah Vega) Disposition <Alona Moya - Last Filed: 12/14/24 19:40> Is patient prescribed a controlled substance at d/c from ED?: No Time of Disposition: 20:22 <Sarah Vega - Last Filed: 12/15/24 00:47> Clinical Impression: Alcohol intoxication Disposition: HOME SELF-CARE Condition: Stable Instructions (If sedation given, give patient instructions): Alcohol Intoxication (ED) Additional Instructions: You need to take yourself to rehab. We cannot admit you to rehab from the hospital. Referrals: Theodore Arceo MD [Primary Care Provider] - 1-2 days
== END 2024-12-14 20:53 | disposition home or self-care (01) ==
LOC: EC 19:16
DX: F10.129 Alcohol abuse with intoxication, unspecified (principal); F17.200 Nicotine dependence, unspecified, uncomplicated; Z88.0 Allergy status to penicillin; Z88.6 Allergy status to analgesic agent; Z88.8 Allergy status to other drugs, medicaments and biological substances
CPT/HCPCS: 99283

== ENCOUNTER 2024-12-16 20:40 | Emergency (ER) | payer OTHER ==
[2024-12-16 20:47] VITALS: RESP 16
--- NOTE | 2024-12-16 21:16 | ED ---
Anxiety HPI - General Chief Complaint: Anxiety Stated Complaint: Anxiety, ETOH Time Seen by Provider: 12/16/24 20:42 Source: patient, EMS, RN notes reviewed, old records reviewed Mode of arrival: EMS Limitations: altered mental status - History of Present Illness Initial Comments: This is a 38-year-old female to the ER for evaluation of severe anxiety severe anxiety over going to [facility] today. Concern for withdrawal with stopping drinking MD Complaint: anxiety -: hour(s) Symptoms: palpitations Place: home Previous History of Same: Yes Severity: mild Quality: constant Provoking factors: none known Improves With: nothing Worsens With: nothing Associated symptoms: palpitations - Related Data Home Medications: Home Medications Medication Instructions Recorded Confirmed levETIRAcetam [Keppra] 500 mg PO BID 11/18/24 11/18/24 Allergies/Adverse Reactions: Allergies Allergy/AdvReac Type Severity Reaction Status Date / Time acetaminophen [From Tylenol] Allergy Unknown Verified 12/13/24 16:56 Penicillins Allergy Rash/Hives/Swelling Verified 12/13/24 16:56 all over body NSAIDS (Non-Steroidal AdvReac Unknown upset Verified 12/13/24 16:56 Anti-Inflamma stomach sertraline HCl [From Zoloft] AdvReac Suicidal/Ag Verified 12/13/24 16:56 ression Review of Systems ROS Statement: Those systems with pertinent positive or pertinent negative responses have been documented in the HPI. ROS Other: All systems not noted in ROS Statement are negative. Past Medical History Past Medical History: Cancer, COPD, Hypertension, Liver Disease, Myocardial Infarction (SC), Seizure Disorder, Vascular Disorder Additional Past Medical History / Comment(s): constpation, feeling bloated,feeling of fullness, and abdominal pain, feels hungry then over eats then vomits to feel better, LAST SEIZURE - JANUARY 2021, "broken heart syndrome"., elevated liver enzymes, "dislocated disks", hx cervical cancer, etoh abuse Last Myocardial Infarction Date:: 2019 History of Any Multi-Drug Resistant Organisms: None Reported Past Surgical History: Section, Heart Catheterization, Tubal Ligation Additional Past Surgical History / Comment(s): ORIF rt ankle/hardware later removed, exploratory lap, PAIN CLINIC PROCEDURE, BILAT CATARACTS REMOVED WITH LENS IMPLANTS, procedure to open a vein in left leg-couldn't confirm which leg, partial amputation rt hand middle finger, "procedure to remove cervical cancer" Past Anesthesia/Blood Transfusion Reactions: No Reported Reaction Past Psychological History: Anxiety, Bipolar, Depression, PTSD Smoking Status: Current every day smoker Past Alcohol Use History: Abuse, Daily, Heavy Past Drug Use History: Marijuana - Past Family History Father Family Medical History: Cancer, Prostate Disorder, Pulmonary Embolus Sister(s) Family Medical History: Cancer Brother(s) Family Medical History: Cancer Additional Family Medical History / Comment(s): colon and bladder General Exam Limitations: no limitations General appearance: appears intoxicated Head exam: Present: atraumatic, normocephalic, normal inspection Eye exam: Present: normal appearance, PERRL, EOMI. Absent: scleral icterus, conjunctival injection, periorbital swelling ENT exam: Present: normal exam, mucous membranes moist Neck exam: Present: normal inspection. Absent: tenderness, meningismus, lympha denopathy Respiratory exam: Present: normal lung sounds bilaterally. Absent: respiratory distress, wheezes, rales, rhonchi, stridor Cardiovascular Exam: Present: regular rate, normal rhythm, normal heart sounds. Absent: systolic murmur, diastolic murmur, rubs, gallop, clicks GI/Abdominal exam: Present: soft, normal bowel sounds. Absent: distended, tenderness, guarding, rebound, rigid Extremities exam: Present: normal inspection, full ROM, normal capillary refill. Absent: tenderness, pedal edema, joint swelling, calf tenderness Back exam: Present: normal inspection Neurological exam: Present: alert, oriented X3, CN II-XII intact Psychiatric exam: Present: normal affect, normal mood Skin exam: Present: warm, dry, intact, normal color. Absent: rash Course Vital Signs 12/16/24 20:44 Temperature 97.8 F Pulse Rate 80 Respiratory 16 Rate Blood Pressure 138/97 O2 Sat by Pulse 98 Oximetry - Reevaluation(s) Reevaluation #1: 12/16/24 21:18 Medical records reviewed Reevaluation #2: 12/16/24 21:18 Patient symptoms improved Reevaluation #3: 12/16/24 21:18 Patient informed of results questions answered Reevaluation #4: Was pt. sent in by a medical professional or institution (, PA, SERVICE EMPLOYEE, urgent care, hospital, or assisted...) When possible be specific @ -no Did you speak to anyone other than the patient for history (EMS, parent, family, police, friend...)? What history was obtained from this source @ -no Did you review nursing and triage notes (agree or disagree)? Why? @ -agree Are old charts reviewed (outside hosp., previous admission, EMS record, old EKG, old radiological studies, urgent care reports/EKG's, assisted records)? Report findings @ -yes Differential Diagnosis (chest pain, altered mental status, abdominal pain women, abdominal pain men, vaginal bleeding, weakness, fever, dyspnea, syncope, headache, dizziness, GI bleed, back pain, seizure, CVA, palpatations, mental health, musculoskeletal)? @ -prior EKG interpreted by me (3pts min.). @ -yes X-rays interpreted by me (1pt min.). @ -yes negative for acute disease CT interpreted by me (1pt min.). @ -no U/S interpreted by me (1pt. min.). @ -no What testing was considered but not performed or refused? (CT, X-rays, U/S, labs)? Why? @ -none What meds were considered but not given or refused? Why? @ -none Did you discuss the management of the patient with other professionals (professionals i.e. , PA, SERVICE EMPLOYEE, lab, RT, psych nurse, group social worker, candy rolling machine operator, teacher, complaint evaluation officer, bilingual case manager)? Give summary @ -no Was smoking cessation discussed for >3mins.? @ -no Was critical care preformed (if so, how long)? @ -no Were there social determinants of health that impacted care today? How? (Homelessness, low income, unemployed, alcoholism, drug addiction, transportation, low edu. Level, literacy, decrease access to med. care, prison, rehab)? @ -none Was there de-escalation of care discussed even if they declined (Discuss DNR or withdrawal of care, Hospice)? DNR status @ -no What co-morbidities impacted this encounter? (DM, HTN, Smoking, COPD, CAD, Cancer, CVA, ARF, Chemo, Hep., AIDS, mental health diagnosis, sleep apnea, morbid obesity)? @ -none Was patient admitted / discharged? Hospital course, mention meds given and route, prescriptions, significant lab abnormalities, going to OR and other pertinent info. @ - Undiagnosed new problem with uncertain prognosis? @ -no Drug Therapy requiring intensive monitoring for toxicity (Heparin, Nitro, Insulin, Cardizem)? @ -no Were any procedures done? @ -no Diagnosis/symptom? @ - Acute, or Chronic, or Acute on Chronic? @ -Acute Uncomplicated (without systemic symptoms) or Complicated (systemic symptoms)? @ -Complicated Side effects of treatment? @ -no Exacerbation, Progression, or Severe Exacerbation? @ -exacerbation Poses a threat to life or bodily function? How? (Chest pain, USA, SC, pneumonia, PE, COPD, DKA, ARF, appy, cholecystitis, CVA, Diverticulitis, Homicidal, Suicidal, threat to staff... and all critical care pts) @ -yes Medical Decision Making - Medical Decision Making 58 female concern for alcohol withdrawal going to [facility] tomorrow, patient has stopped drinking for 3 hours. Very anxious here in the ER but in no signs of acute alcohol withdrawal or DTs Disposition Clinical Impression: Acute anxiety Disposition: HOME SELF-CARE Condition: Fair Instructions (If sedation given, give patient instructions): Generalized Anxiety Disorder (ED) Is patient prescribed a controlled substance at d/c from ED?: No Referrals: Theodore Arceo MD [Primary Care Provider] - 1-2 days Time of Disposition: 21:00
[2024-12-16 21:27] VITALS: BP 128/85; PULSE 66; TEMP 98
[2024-12-16] MEDS: LORazepam 1 MG TAB PO STA (21:27)
== END 2024-12-16 21:31 | disposition home or self-care (01) ==
LOC: EC 20:40
DX: F41.9 Anxiety disorder, unspecified (principal); F17.200 Nicotine dependence, unspecified, uncomplicated; Z88.0 Allergy status to penicillin; Z88.6 Allergy status to analgesic agent; Z88.8 Allergy status to other drugs, medicaments and biological substances
CPT/HCPCS: 99283

== ENCOUNTER 2024-12-17 00:31 | Emergency (ER) | payer OTHER ==
--- NOTE | 2024-12-17 01:18 | ED ---
Recheck HPI - General Chief Complaint: Recheck/Abnormal Lab/Rx Stated Complaint: ETOH Time Seen by Provider: 12/17/24 01:12 Source: EMS Mode of arrival: EMS Limitations: no limitations - History of Present Illness Initial Comments: 58-year-old female well-known to our ER presenting for evaluation. Patient reports that she is not sure who called 911 to bring her here. She reports that she just wants to go home and go to bed. She was seen here earlier today. History of alcohol use disorder and states that she wants to go to rehab. She showing no signs of distress and is resting comfortably on evaluation. No complaints. - Related Data Home Medications Medication Instructions Recorded Confirmed levETIRAcetam [Keppra] 500 mg PO BID 11/18/24 11/18/24 Allergies Allergy/AdvReac Type Severity Reaction Status Date / Time acetaminophen [From Tylenol] Allergy Unknown Verified 12/17/24 00:37 Penicillins Allergy Rash/Hives/Swelling Verified 12/17/24 00:37 all over body NSAIDS (Non-Steroidal AdvReac Unknown upset Verified 12/17/24 00:37 Anti-Inflamma stomach sertraline HCl [From Zoloft] AdvReac Suicidal/Ag Verified 12/17/24 00:37 ression Review of Systems ROS Statement: Those systems with pertinent positive or pertinent negative responses have been documented in the HPI. ROS Other: All systems not noted in ROS Statement are negative. Past Medical History Past Medical History: Cancer, COPD, Hypertension, Liver Disease, Myocardial Infarction (MD), Seizure Disorder, Vascular Disorder Additional Past Medical History / Comment(s): constpation, feeling bloated,feeling of fullness, and abdominal pain, feels hungry then over eats then vomits to feel better, LAST SEIZURE - JANUARY 2021, "broken heart syndrome"., elevated liver enzymes, "dislocated disks", hx cervical cancer, etoh abuse Last Myocardial Infarction Date:: 2019 History of Any Multi-Drug Resistant Organisms: None Reported Past Surgical History: Section, Heart Catheterization, Tubal Ligation Additional Past Surgical History / Comment(s): ORIF rt ankle/hardware later removed, exploratory lap, PAIN CLINIC PROCEDURE, BILAT CATARACTS REMOVED WITH LENS IMPLANTS, procedure to open a vein in left leg-couldn't confirm which leg, partial amputation rt hand middle finger, "procedure to remove cervical cancer" Past Anesthesia/Blood Transfusion Reactions: No Reported Reaction Past Psychological History: Anxiety, Bipolar, Depression, PTSD Smoking Status: Current every day smoker Past Alcohol Use History: Abuse, Daily, Heavy Past Drug Use History: Marijuana - Past Family History Father Family Medical History: Cancer, Prostate Disorder, Pulmonary Embolus Sister(s) Family Medical History: Cancer Brother(s) Family Medical History: Cancer Additional Family Medical History / Comment(s): colon and bladder General Exam Limitations: no limitations General appearance: alert, in no apparent distress Head exam: Present: atraumatic, normocephalic, normal inspection Eye exam: Present: normal appearance, EOMI Neck exam: Present: normal inspection. Absent: meningismus Respiratory exam: Absent: respiratory distress Cardiovascular Exam: Present: regular rate Neurological exam: Present: alert, oriented X3 Psychiatric exam: Present: normal affect, normal mood Skin exam: Present: warm, dry, normal color Course Vital Signs 12/17/24 00:32 Temperature 97.9 F Pulse Rate 79 Respiratory 18 Rate O2 Sat by Pulse 96 Oximetry Medical Decision Making - Medical Decision Making Was pt. sent in by a medical professional or institution (Dr. PA, WATERSHED PROGRAM MANAGER, urgent care, hospital, or retirement...) When possible be specific @ -No Did you speak to anyone other than the patient for history (EMS, parent, family, police, friend...)? What history was obtained from this source @ -No Did you review nursing and triage notes (agree or disagree)? Why? @ -I reviewed and agree with nursing and triage notes Were old charts reviewed (outside hosp., previous admission, EMS record, old EKG, old radiological studies, urgent care reports/EKG's, retirement records)? Report findings @ -No old charts were reviewed Differential Diagnosis (chest pain, altered mental status, abdominal pain women, abdominal pain men, vaginal bleeding, weakness, fever, dyspnea, syncope, headache, dizziness, GI bleed, back pain, seizure, CVA, palpatations, mental health, musculoskeletal)? @ -Not applicable EKG interpreted by me (3pts min.). @ -As above X-rays interpreted by me (1pt min.). @ -None done CT interpreted by me (1pt min.). @ -None done U/S interpreted by me (1pt. min.). @ -None done What testing was considered but not performed or refused? (CT, X-rays, U/S, labs)? Why? @ -None What meds were considered but not given or refused? Why? @ -None Did you discuss the management of the patient with other professionals (professionals i.e. , PA, WATERSHED PROGRAM MANAGER, lab, RT, psych nurse, rn social work, shipbuilding draftsperson, teacher, staff readiness officer, leather case finisher)? Give summary @ -No Was smoking cessation discussed for >3mins.? @ -No Was critical care preformed (if so, how long)? @ -No Were there social determinants of health that impacted care today? How? (Homelessness, low income, unemployed, alcoholism, drug addiction, transportation, low edu. Level, literacy, decrease access to med. care, senior care, rehab)? @ -No Was there de-escalation of care discussed even if they declined (Discuss DNR or withdrawal of care, Hospice)? DNR status @ -No What co-morbidities impacted this encounter? (DM, HTN, Smoking, COPD, CAD, Cancer, CVA, ARF, Chemo, Hep., AIDS, mental health diagnosis, sleep apnea, morbid obesity)? @ -None Was patient admitted / discharged? Hospital course, mention meds given and route, prescriptions, significant lab abnormalities, going to OR and other pertinent info. @ -58-year-old female well-known to our ER. She states that she does not know why she is here and she does not want to be here. Patient is able to ambulate and answer questions appropriately, she is clinically sober. States that she wants to go to rehab, provided with list of local AA meetings and inpatient rehab facilities. Eager for discharge. Her fianc will come bring her home. Follow-up with PCP. My attending is Dr. Ibrahim Undiagnosed new problem with uncertain prognosis? @ -No Drug Therapy requiring intensive monitoring for toxicity (Heparin, Nitro, Insulin, Cardizem)? @ -No Were any procedures done? @ -No Diagnosis/symptom? @ -Alcohol use disorder Acute, or Chronic, or Acute on Chronic? @ -Chronic Uncomplicated (without systemic symptoms) or Complicated (systemic symptoms)? @ -Uncomplicated Side effects of treatment? @ -No Exacerbation, Progression, or Severe Exacerbation? @ -No Disposition Clinical Impression: Alcohol use disorder Disposition: HOME SELF-CARE Condition: Fair Additional Instructions: Follow-up with PCP Is patient prescribed a controlled substance at d/c from ED?: No Referrals: Theodore Arceo MD [Primary Care Provider] - 1-2 days Forms: AA Meetings [facility] Time of Disposition: 01:18
[2024-12-17 01:46] VITALS: BP 127/84; PULSE 84; RESP 16; TEMP 98
== END 2024-12-17 01:46 | disposition home or self-care (01) ==
LOC: EC 00:31
DX: F10.10 Alcohol abuse, uncomplicated (principal); Y90.9 Presence of alcohol in blood, level not specified; F17.200 Nicotine dependence, unspecified, uncomplicated; Z88.0 Allergy status to penicillin; Z88.6 Allergy status to analgesic agent; Z88.8 Allergy status to other drugs, medicaments and biological substances
CPT/HCPCS: 99283

== ENCOUNTER 2024-12-17 19:58 | Emergency (ER) | payer OTHER ==
[2024-12-17 20:04] VITALS: RESP 18
--- NOTE | 2024-12-17 20:05 | ED ---
Psych HPI - General Chief Complaint: Psychiatric Symptoms Stated Complaint: Chest pain Time Seen by Provider: 12/17/24 20:04 Source: patient, EMS, RN notes reviewed, old records reviewed Mode of arrival: EMS Limitations: no limitations, altered mental status - History of Present Illness Initial Comments: This is a 58-year-old female to ER for evaluation, patient presents for psychiatric evaluation depression found to have acute alcohol intoxication, patient has no other significant complaints MD Complaint: feels depressed, other (Acute alcohol intoxication) Associated Psychiatric Symptoms: depression History of same: Yes Quality: constant Improves With: none Worsens With: none Associated Symptoms: denies other symptoms Treatments Prior to Arrival: none - Related Data Home Medications Medication Instructions Recorded Confirmed levETIRAcetam [Keppra] 500 mg PO BID 11/18/24 11/18/24 Allergies Allergy/AdvReac Type Severity Reaction Status Date / Time acetaminophen [From Tylenol] Allergy Unknown Verified 12/26/24 14:46 Penicillins Allergy Rash/Hives/Swelling Verified 12/26/24 14:46 all over body NSAIDS (Non-Steroidal AdvReac Unknown upset Verified 12/26/24 14:46 Anti-Inflamma stomach sertraline HCl [From Zoloft] AdvReac Suicidal/Ag Verified 12/26/24 14:46 ression Review of Systems ROS Statement: Those systems with pertinent positive or pertinent negative responses have been documented in the HPI. ROS Other: All systems not noted in ROS Statement are negative. Past Medical History Past Medical History: Cancer, COPD, Hypertension, Liver Disease, Myocardial Infarction (SC), Seizure Disorder, Vascular Disorder Additional Past Medical History / Comment(s): constpation, feeling bloated,feeling of fullness, and abdominal pain, feels hungry then over eats then vomits to feel better, LAST SEIZURE - JANUARY 2021, "broken heart syndrome"., elevated liver enzymes, "dislocated disks", hx cervical cancer, etoh abuse Last Myocardial Infarction Date:: 2019 History of Any Multi-Drug Resistant Organisms: None Reported Past Surgical History: Section, Heart Catheterization, Tubal Ligation Additional Past Surgical History / Comment(s): ORIF rt ankle/hardware later removed, exploratory lap, PAIN CLINIC PROCEDURE, BILAT CATARACTS REMOVED WITH LENS IMPLANTS, procedure to open a vein in left leg-couldn't confirm which leg, partial amputation rt hand middle finger, "procedure to remove cervical cancer" Past Anesthesia/Blood Transfusion Reactions: No Reported Reaction Past Psychological History: Anxiety, Bipolar, Depression, PTSD Smoking Status: Current every day smoker Past Alcohol Use History: Abuse, Daily, Heavy Past Drug Use History: Marijuana - Past Family History Father Family Medical History: Cancer, Prostate Disorder, Pulmonary Embolus Sister(s) Family Medical History: Cancer Brother(s) Family Medical History: Cancer Additional Family Medical History / Comment(s): colon and bladder General Exam Limitations: no limitations General appearance: appears intoxicated Head exam: Present: atraumatic, normocephalic, normal inspection Eye exam: Present: normal appearance, PERRL, EOMI. Absent: scleral icterus, conjunctival injection, periorbital swelling ENT exam: Present: normal exam, mucous membranes moist Neck exam: Present: normal inspection. Absent: tenderness, meningismus, lymphadenopathy Respiratory exam: Present: normal lung sounds bilaterally. Absent: respiratory distress, wheezes, rales, rhonchi, stridor Cardiovascular Exam: Present: regular rate, normal rhythm, normal heart sounds. Absent: systolic murmur, diastolic murmur, rubs, gallop, clicks GI/Abdominal exam: Present: soft, normal bowel sounds. Absent: distended, tenderness, guarding, rebound, rigid Extremities exam: Present: normal inspection, full ROM, normal capillary refill. Absent: tenderness, pedal edema, joint swelling, calf tenderness Back exam: Present: normal inspection Neurological exam: Present: alert, oriented X3, CN II-XII intact Psychiatric exam: Present: normal affect, normal mood Skin exam: Present: warm, dry, intact, normal color. Absent: rash Course Vital Signs 12/17/24 12/17/24 20:00 21:54 Temperature 97.8 F 97.6 F Pulse Rate 74 80 Respiratory 18 18 Rate Blood Pressure 125/89 130/80 O2 Sat by Pulse 97 97 Oximetry - Reevaluation(s) Reevaluation #1: Medical records reviewed Reevaluation #2: Patient's symptoms improved Reevaluation #3: Patient informed of results questions answered Reevaluation #4: Was pt. sent in by a medical professional or institution (, PA, AIRCRAFT REFUELER, urgent care, hospital, or detention...) When possible be specific @ -no Did you speak to anyone other than the patient for history (EMS, parent, family, police, friend...)? What history was obtained from this source @ -no Did you review nursing and triage notes (agree or disagree)? Why? @ -agree Are old charts reviewed (outside hosp., previous admission, EMS record, old EKG, old radiological studies, urgent care reports/EKG's, detention records)? Report findings @ -yes Differential Diagnosis (chest pain, altered mental status, abdominal pain women, abdominal pain men, vaginal bleeding, weakness, fever, dyspnea, syncope, headache, dizziness, GI bleed, back pain, seizure, CVA, palpatations, mental health, musculoskeletal)? @ -prior EKG interpreted by me (3pts min.). @ -no X-rays interpreted by me (1pt min.). @ -no CT interpreted by me (1pt min.). @ -no U/S interpreted by me (1pt. min.). @ -no What testing was considered but not performed or refused? (CT, X-rays, U/S, labs)? Why? @ -none What meds were considered but not given or refused? Why? @ -none Did you discuss the management of the patient with other professionals (professionals i.e. , PA, AIRCRAFT REFUELER, lab, RT, psych nurse, social contact worker, mechanical and auto body car checker, teacher, conservation officer, case mgr)? Give summary @ -no Was smoking cessation discussed for >3mins.? @ -no Was critical care preformed (if so, how long)? @ -no Were there social determinants of health that impacted care today? How? (Homele ssness, low income, unemployed, alcoholism, drug addiction, transportation, low edu. Level, literacy, decrease access to med. care, [facility]ci, rehab)? @ -none Was there de-escalation of care discussed even if they declined (Discuss DNR or withdrawal of care, Hospice)? DNR status @ -no What co-morbidities impacted this encounter? (DM, HTN, Smoking, COPD, CAD, Cancer, CVA, ARF, Chemo, Hep., AIDS, mental health diagnosis, sleep apnea, morbid obesity)? @ -none Was patient admitted / discharged? Hospital course, mention meds given and route, prescriptions, significant lab abnormalities, going to OR and other pertinent info. @ - 58 female for acute psychiatric evaluation, patient seen and evaluated here in the ER refusing to evaluation refusing stated patient is intoxicated denies suicidal or homicidal Discharge Undiagnosed new problem with uncertain prognosis? @ -no Drug Therapy requiring intensive monitoring for toxicity (Heparin, Nitro, Insulin, Cardizem)? @ -no Were any procedures done? @ -no Diagnosis/symptom? @ -Acute alcohol intoxication Acute, or Chronic, or Acute on Chronic? @ -Acute Uncomplicated (without systemic symptoms) or Complicated (systemic symptoms)? @ -Complicated Side effects of treatment? @ -no Exacerbation, Progression, or Severe Exacerbation? @ -exacerbation Poses a threat to life or bodily function? How? (Chest pain, USA, SC, pneumonia, PE, COPD, DKA, ARF, appy, cholecystitis, CVA, Diverticulitis, Homicidal, Suicidal, threat to staff... and all critical care pts) @ -no Reevaluation #5: Differential Mental Health Depression, anxiety, bipolar, psychosis, schizophrenia, borderline personality, situational depression, adjustment disorder, behavioral disorder, brain tumor, malingering, substance abuse, encephalopathy, medication reaction, dementia, hypothyroidism, degenerative neurologic disorder, lupus.... This is not meant to be all-inclusive list Medical Decision Making - Medical Decision Making 58 female for acute psychiatric evaluation, patient seen and evaluated here in the ER refusing to evaluation refusing stated patient is intoxicated denies suicidal or homicidal Disposition Clinical Impression: Adjustment reaction of adult life, Alcohol intoxication, Acute anxiety Disposition: HOME SELF-CARE Condition: Fair Instructions (If sedation given, give patient instructions): Anxiety (ED) Is patient prescribed a controlled substance at d/c from ED?: No Referrals: Theodore Arceo MD [Primary Care Provider] - 1-2 days Time of Disposition: 21:30
[2024-12-17 21:56] VITALS: BP 130/80; PULSE 80; TEMP 97.6
== END 2024-12-17 21:56 | disposition home or self-care (01) ==
LOC: EC 19:58
DX: F43.22 Adjustment disorder with anxiety (principal); F10.129 Alcohol abuse with intoxication, unspecified; F17.200 Nicotine dependence, unspecified, uncomplicated; Z88.0 Allergy status to penicillin; Z88.6 Allergy status to analgesic agent; Y90.9 Presence of alcohol in blood, level not specified
CPT/HCPCS: 99285

== ENCOUNTER 2024-12-24 21:36 | Emergency (ER) | payer OTHER ==
[2024-12-24 22:14] VITALS: BP 134/84; PULSE 73; RESP 18; TEMP 97.9
--- NOTE | 2024-12-24 23:24 | ED ---
Alcohol HPI - General Chief Complaint: Recheck/Abnormal Lab/Rx Stated Complaint: chest pain Time Seen by Provider: 12/24/24 22:05 Source: EMS, RN notes reviewed, old records reviewed Mode of arrival: EMS Limitations: altered mental status (ETOH) - History of Present Illness Initial Comments: This is a 58 female well known to the ED co ETOH intoxication, anxiety and multiple complaints, when told she is going to the waiting room she prefers discharge. 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 Previous Visits for Alcohol Intoxication?: Yes Recent Trauma: Yes Treatments Prior to Arrival: none Chronic Alcohol Use: Yes - Related Data Home Medications Medication Instructions Recorded Confirmed levETIRAcetam [Keppra] 500 mg PO BID 11/18/24 11/18/24 Allergies Allergy/AdvReac Type Severity Reaction Status Date / Time acetaminophen [From Tylenol] Allergy Unknown Verified 12/24/24 22:10 Penicillins Allergy Rash/Hives/Swelling Verified 12/24/24 22:10 all over body NSAIDS (Non-Steroidal AdvReac Unknown upset Verified 12/24/24 22:10 Anti-Inflamma stomach sertraline HCl [From Zoloft] AdvReac Suicidal/Ag Verified 12/24/24 22:10 ression Review of Systems ROS Statement: Those systems with pertinent positive or pertinent negative responses have been documented in the HPI. ROS Other: All systems not noted in ROS Statement are negative. Past Medical History Past Medical History: Cancer, COPD, Hypertension, Liver Disease, Myocardial Infarction ([place]), Seizure Disorder, Vascular Disorder Additional Past Medical History / Comment(s): constpation, feeling bloated,feeling of fullness, and abdominal pain, feels hungry then over eats then vomits to feel better, LAST SEIZURE - JANUARY 2021, "broken heart syndrome"., elevated liver enzymes, "dislocated disks", hx cervical cancer, etoh abuse Last Myocardial Infarction Date:: 2019 History of Any Multi-Drug Resistant Organisms: None Reported Past Surgical History: Section, Heart Catheterization, Tubal Ligation Additional Past Surgical History / Comment(s): ORIF rt ankle/hardware later removed, exploratory lap, PAIN CLINIC PROCEDURE, BILAT CATARACTS REMOVED WITH LENS IMPLANTS, procedure to open a vein in left leg-couldn't confirm which leg, partial amputation rt hand middle finger, "procedure to remove cervical cancer" Past Anesthesia/Blood Transfusion Reactions: No Reported Reaction Past Psychological History: Anxiety, Bipolar, Depression, PTSD Smoking Status: Current every day smoker Past Alcohol Use History: Abuse, Daily, Heavy Past Drug Use History: Marijuana - Past Family History Father Family Medical History: Cancer, Prostate Disorder, Pulmonary Embolus Sister(s) Family Medical History: Cancer Brother(s) Family Medical History: Cancer Additional Family Medical History / Comment(s): colon and bladder General Exam General appearance: alert, in no apparent distress Head exam: Present: atraumatic, normocephalic, normal inspection Eye exam: Present: normal appearance, PERRL, EOMI. Absent: scleral icterus, conjunctival injection, periorbital swelling ENT exam: Present: normal exam, mucous membranes moist Neck exam: Present: normal inspection. Absent: tenderness, meningismus, lymphadenopathy Respiratory exam: Present: normal lung sounds bilaterally. Absent: respiratory distress, wheezes, rales, rhonchi, stridor Cardiovascular Exam: Present: regular rate, normal rhythm, normal heart sounds. Absent: systolic murmur, diastolic murmur, rubs, gallop, clicks GI/Abdominal exam: Present: soft, normal bowel sounds. Absent: distended, tenderness, guarding, rebound, rigid Extremities exam: Present: normal inspection, full ROM, normal capillary refill. Absent: tenderness, pedal edema, joint swelling, calf tenderness Back exam: Present: normal inspection Neurological exam: Present: alert, oriented X3, CN II-XII intact Psychiatric exam: Present: normal affect, normal mood Skin exam: Present: warm, dry, intact, normal color. Absent: rash Course Vital Signs 12/24/24 22:08 Temperature 97.9 F Pulse Rate 73 Respiratory 18 Rate Blood Pressure 134/84 O2 Sat by Pulse 98 Oximetry - Reevaluation(s) Reevaluation #1: 12/24/24 23:23 Medical records reviewed Reevaluation #2: 12/24/24 23:24 Patient eloped prior to discharge instructions Reevaluation #3: 12/24/24 23:24 Patient informed of results questions answered Reevaluation #4: Was pt. sent in by a medical professional or institution (, PA, POWERPLANT OPERATOR, urgent care, hospital, or halfway...) When possible be specific @ -no Did you speak to anyone other than the patient for history (EMS, parent, family, police, friend...)? What history was obtained from this source @ -no Did you review nursing and triage notes (agree or disagree)? Why? @ -agree Are old charts reviewed (outside hosp., previous admission, EMS record, old EKG, old radiological studies, urgent care reports/EKG's, halfway records)? Report findings @ -yes Differential Diagnosis (chest pain, altered mental status, abdominal pain women, abdominal pain men, vaginal bleeding, weakness, fever, dyspnea, syncope, headache, dizziness, GI bleed, back pain, seizure, CVA, palpatations, mental health, musculoskeletal)? @ -prior EKG interpreted by me (3pts min.). @ -yes X-rays interpreted by me (1pt min.). @ -yes negative for acute disease CT interpreted by me (1pt min.). @ -no U/S interpreted by me (1pt. min.). @ -no What testing was considered but not performed or refused? (CT, X-rays, U/S, labs)? Why? @ -none What meds were considered but not given or refused? Why? @ -none Did you discuss the management of the patient with other professionals (professionals i.e. , PA, POWERPLANT OPERATOR, lab, RT, psych nurse, social services counselor, dehydration plant operator, teacher, business practices officer, clinical case manager)? Give summary @ -no Was smoking cessation discussed for >3mins.? @ -no Was critical care preformed (if so, how long)? @ -no Were there social determinants of health that impacted care today? How? (Homelessness, low income, unemployed, alcoholism, drug addiction, transportation, low edu. Level, literacy, decrease access to med. care, shelter, rehab)? @ -none Was there de-escalation of care discussed even if they declined (Discuss DNR or withdrawal of care, Hospice)? DNR status @ -no What co-morbidities impacted this encounter? (DM, HTN, Smoking, COPD, CAD, Cancer, CVA, ARF, Chemo, Hep., AIDS, mental health diagnosis, sleep apnea, morbid obesity)? @ -none Was patient admitted / discharged? Hospital course, mention meds given and route, prescriptions, significant lab abnormalities, going to OR and other pertinent info. @ - Undiagnosed new problem with uncertain prognosis? @ -no Drug Therapy requiring intensive monitoring for toxicity (Heparin, Nitro, Insulin, Cardizem)? @ -no Were any procedures done? @ -no Diagnosis/symptom? @ - Acute, or Chronic, or Acute on Chronic? @ -Acute Uncomplicated (without systemic symptoms) or Complicated (systemic symptoms)? @ -Complicated Side effects of treatment? @ -no Exacerbation, Progression, or Severe Exacerbation? @ -exacerbation Poses a threat to life or bodily function? How? (Chest pain, USA, [place], pneumonia, PE, COPD, DKA, ARF, appy, cholecystitis, CVA, Diverticulitis, Homicidal, Suicidal, threat to staff... and all critical care pts) @ -yes Medical Decision Making - Medical Decision Making 58 female to ER for evaluation, patient presents for alcohol intoxication, informed of waiting room placement, prefers taking a cab home and discharged without evaluation or further treatment. Patient is discharged home Disposition Clinical Impression: Alcohol intoxication Disposition: HOME SELF-CARE Condition: Fair Instructions (If sedation given, give patient instructions): Alcohol Intoxication (ED) Is patient prescribed a controlled substance at d/c from ED?: No Referrals: Theodore Arceo MD [Primary Care Provider] - 1-2 days
== END 2024-12-24 22:46 | disposition home or self-care (01) ==
LOC: EC 21:36
DX: F10.129 Alcohol abuse with intoxication, unspecified (principal); F17.200 Nicotine dependence, unspecified, uncomplicated; Z88.0 Allergy status to penicillin; Z88.6 Allergy status to analgesic agent; Z88.8 Allergy status to other drugs, medicaments and biological substances; Y90.9 Presence of alcohol in blood, level not specified
CPT/HCPCS: 99284

== ENCOUNTER 2024-12-26 14:43 | Emergency (ER) | payer OTHER ==
[2024-12-26 14:46] VITALS: BP 117/65; PULSE 79; RESP 18
[2024-12-26 15:14] VITALS: TEMP 98
--- NOTE | 2024-12-26 16:02 | ED ---
Alcohol HPI - General Chief Complaint: Alcohol Stated Complaint: ETOH Time Seen by Provider: 12/26/24 16:01 Source: patient, EMS Mode of arrival: EMS Limitations: altered mental status (intoxicated) - History of Present Illness Initial Comments: 58-year-old female presenting to ER via EMS for evaluation of elevated blood pressure. Patient states at home she felt her blood pressure was elevated which prompted her to call EMS. She states she did not check her blood pressure prior to calling EMS. She states she was feeling anxious at that time. Patient admits to consuming a approximately 2-3 beers prior to arrival. She denies any other drug use. She denies any dizziness, lightheadedness, chest pain, shortness of breath, headache, double blurry vision, paresthesias of bilateral or lower extremity. Patient is requesting discharge upon examination. - Related Data Home Medications Medication Instructions Recorded Confirmed levETIRAcetam [Keppra] 500 mg PO BID 11/18/24 11/18/24 Allergies Allergy/AdvReac Type Severity Reaction Status Date / Time acetaminophen [From Tylenol] Allergy Unknown Verified 12/26/24 14:46 Penicillins Allergy Rash/Hives/Swelling Verified 12/26/24 14:46 all over body NSAIDS (Non-Steroidal AdvReac Unknown upset Verified 12/26/24 14:46 Anti-Inflamma stomach sertraline HCl [From Zoloft] AdvReac Suicidal/Ag Verified 12/26/24 14:46 ression Review of Systems ROS Statement: Those systems with pertinent positive or pertinent negative responses have been documented in the HPI. ROS Other: All systems not noted in ROS Statement are negative. Past Medical History Past Medical History: Cancer, COPD, Hypertension, Liver Disease, Myocardial Infarction ([place]), Seizure Disorder, Vascular Disorder Additional Past Medical History / Comment(s): constpation, feeling bloated,feeling of fullness, and abdominal pain, feels hungry then over eats then vomits to feel better, LAST SEIZURE - JANUARY 2021, "broken heart syndrome"., elevated liver enzymes, "dislocated disks", hx cervical cancer, etoh abuse Last Myocardial Infarction Date:: 2019 History of Any Multi-Drug Resistant Organisms: None Reported Past Surgical History: Section, Heart Catheterization, Tubal Ligation Additional Past Surgical History / Comment(s): ORIF rt ankle/hardware later removed, exploratory lap, PAIN CLINIC PROCEDURE, BILAT CATARACTS REMOVED WITH LENS IMPLANTS, procedure to open a vein in left leg-couldn't confirm which leg, partial amputation rt hand middle finger, "procedure to remove cervical cancer" Past Anesthesia/Blood Transfusion Reactions: No Reported Reaction Past Psychological History: Anxiety, Bipolar, Depression, PTSD Smoking Status: Current every day smoker Past Alcohol Use History: Abuse, Daily, Heavy Past Drug Use History: Marijuana - Past Family History Father Family Medical History: Cancer, Prostate Disorder, Pulmonary Embolus Sister(s) Family Medical History: Cancer Brother(s) Family Medical History: Cancer Additional Family Medical History / Comment(s): colon and bladder General Exam Limitations: no limitations General appearance: alert, in no apparent distress, appears intoxicated Respiratory exam: Present: normal lung sounds bilaterally. Absent: respiratory distress, wheezes, rales, rhonchi, stridor Cardiovascular Exam: Present: regular rate, normal rhythm, normal heart sounds. Absent: systolic murmur, diastolic murmur, rubs, gallop, clicks GI/Abdominal exam: Present: soft, normal bowel sounds. Absent: distended, tenderness, guarding, rebound, rigid Neurological exam: Present: alert, oriented X3, CN II-XII intact Skin exam: Present: warm, dry, intact, normal color. Absent: rash Course Vital Signs 12/26/24 14:44 Temperature 98.0 F Pulse Rate 79 Respiratory 18 Rate Blood Pressure 117/65 O2 Sat by Pulse 98 Oximetry Medical Decision Making - Medical Decision Making Was pt. sent in by a medical professional or institution (, PA, BATCH UNIT TREATER, urgent care, hospital, or skilled nursing...) When possible be specific @ -No Did you speak to anyone other than the patient for history (EMS, parent, family, police, friend...)? What history was obtained from this source @ -No Did you review nursing and triage notes (agree or disagree)? Why? @ -I reviewed and agree with nursing and triage notes Were old charts reviewed (outside hosp., previous admission, EMS record, old EKG, old radiological studies, urgent care reports/EKG's, skilled nursing records)? Report findings @ -Prior ER visits. Differential Diagnosis (chest pain, altered mental status, abdominal pain women, abdominal pain men, vaginal bleeding, weakness, fever, dyspnea, syncope, head ache, dizziness, GI bleed, back pain, seizure, CVA, palpatations, mental health, musculoskeletal)? @ -[Alcohol intoxication, alcohol withdrawal, hypertension, hypertensive emergency... This list is not meant to be all-inclusive EKG interpreted by me (3pts min.). @ -None done X-rays interpreted by me (1pt min.). @ -[None done CT interpreted by me (1pt min.). @ -None done U/S interpreted by me (1pt. min.). @ -None done What testing was considered but not performed or refused? (CT, X-rays, U/S, labs)? Why? @ -EKG and chest x-ray refused by patient who eloped from the ER prior to completion of these. What meds were considered but not given or refused? Why? @ -None Did you discuss the management of the patient with other professionals (professionals i.e. Dr., PA, BATCH UNIT TREATER, lab, RT, psych nurse, school social worker, business lawyer, teacher, special loan officer, director of casework)? Give summary @ -No Was smoking cessation discussed for >3mins.? @ -No Was critical care preformed (if so, how long)? @ -No Were there social determinants of health that impacted care today? How? (Homelessness, low income, unemployed, alcoholism, drug addiction, transportation, low edu. Level, literacy, decrease access to med. care, nursing home, rehab)? @ -No Was there de-escalation of care discussed even if they declined (Discuss DNR or withdrawal of care, Hospice)? DNR status @ -No What co-morbidities impacted this encounter? (DM, HTN, Smoking, COPD, CAD, Cancer, CVA, ARF, Chemo, Hep., AIDS, mental health diagnosis, sleep apnea, morbid obesity)? @ -Alcoholism Was patient admitted / discharged? Hospital course, mention meds given and route, prescriptions, significant lab abnormalities, going to OR and other pertinent info. @ -Discharge. 59-year-old female well-known to the emergency department presenting to the ER for evaluation of elevated blood pressure. Upon arrival patient's blood pressure 117/65 vitals otherwise within acceptable limits. On exam patient is AxO x 3 but does appear intoxicated. Patient is requesting discharge as she reports she has no other complaints. BAT 0.136. Patient denies SI or HI. EKG and chest x-ray considered however patient refused. Patient was observed emergency department until clinically sober. Patient is agreeable. Patient eloped from ER prior to completion of observation. Case discussed with ED attending of . Undiagnosed new problem with uncertain prognosis? @ -No Drug Therapy requiring intensive monitoring for toxicity (Heparin, Nitro, Insulin, Cardizem)? @ -No Were any procedures done? @ -No Diagnosis/symptom? @ -Alcohol intoxication Acute, or Chronic, or Acute on Chronic? @ -Acute Uncomplicated (without systemic symptoms) or Complicated (systemic symptoms)? @ -Uncomplicated Side effects of treatment? @ -No Exacerbation, Progression, or Severe Exacerbation? @ -No Poses a threat to life or bodily function? How? (Chest pain, [place], [place], pneumonia, PE, COPD, DKA, ARF, appy, cholecystitis, CVA, Diverticulitis, Homicidal, Suicidal, threat to staff... and all critical care pts) @ -No Disposition Clinical Impression: Alcohol intoxication Disposition: HOME SELF-CARE Condition: Stable Instructions (If sedation given, give patient instructions): Alcohol Intoxication (ED) Additional Instructions: I highly recommend you stop consuming alcohol. Follow-up closely with PCP. Return to the ER for any new or worsening concerns. Is patient prescribed a controlled substance at d/c from ED?: No Referrals: Theodore Arceo MD [Primary Care Provider] - 1-2 days Time of Disposition: 16:28
== END 2024-12-26 16:50 | disposition home or self-care (01) ==
LOC: EC 14:43
DX: F10.129 Alcohol abuse with intoxication, unspecified (principal); F17.200 Nicotine dependence, unspecified, uncomplicated; Z88.0 Allergy status to penicillin; Z88.6 Allergy status to analgesic agent; Z88.8 Allergy status to other drugs, medicaments and biological substances; Y90.9 Presence of alcohol in blood, level not specified
CPT/HCPCS: 82075; 99284

== ENCOUNTER 2024-12-30 13:36 | Emergency (ER) | payer OTHER ==
[2024-12-30 13:44] VITALS: RESP 18; TEMP 98.2
--- NOTE | 2024-12-30 14:04 | ED ---
General Adult HPI - General Chief complaint: Alcohol Stated complaint: ETOH Time Seen by Provider: 12/30/24 13:39 Source: EMS Mode of arrival: EMS Limitations: altered mental status - History of Present Illness Initial comments: Dictation was produced using [employer] dictation software. please excuse any grammatical, word or spelling errors. Chief Complaint: 58-year-old female well-known to the emergency department for chest pain and alcohol intoxication presents with alcohol intoxication and chest pain History of Present Illness: Patient is a 58-year-old female presents to the emergency department with alcohol intoxication and chest pain. Patient is well- known to the emergency department for frequent visitations for the after mentioned complaints. States that she has some substernal chest pain worse whenever she swallows. Patient states that she has an appointment with rehab tomorrow. States that she has chest pain not associated radiation. No associated nausea or diaphoresis. Patient states that she is hungry and she would like some to eat. The ROS documented in this emergency department record has been reviewed and confirmed by me. Those systems with pertinent positive or negative responses have been documented in the HPI. All other systems are other negative and/or noncontributory. - Related Data Home Medications Medication Instructions Recorded Confirmed levETIRAcetam [Keppra] 500 mg PO BID 11/18/24 11/18/24 Allergies Allergy/AdvReac Type Severity Reaction Status Date / Time acetaminophen [From Tylenol] Allergy Unknown Verified 12/26/24 14:46 Penicillins Allergy Rash/Hives/Swelling Verified 12/26/24 14:46 all over body NSAIDS (Non-Steroidal AdvReac Unknown upset Verified 12/26/24 14:46 Anti-Inflamma stomach sertraline HCl [From Zoloft] AdvReac Suicidal/Ag Verified 12/26/24 14:46 ression Review of Systems ROS Statement: Those systems with pertinent positive or pertinent negative responses have been documented in the HPI. ROS Other: All systems not noted in ROS Statement are negative. Past Medical History Past Medical History: Cancer, COPD, Hypertension, Liver Disease, Myocardial Infarction ([place]), Seizure Disorder, Vascular Disorder Additional Past Medical History / Comment(s): constpation, feeling bloated,feeling of fullness, and abdominal pain, feels hungry then over eats then vomits to feel better, LAST SEIZURE - JANUARY 2021, "broken heart syndr ome"., elevated liver enzymes, "dislocated disks", hx cervical cancer, etoh abuse Last Myocardial Infarction Date:: 2019 History of Any Multi-Drug Resistant Organisms: None Reported Past Surgical History: Section, Heart Catheterization, Tubal Ligation Additional Past Surgical History / Comment(s): ORIF rt ankle/hardware later removed, exploratory lap, PAIN CLINIC PROCEDURE, BILAT CATARACTS REMOVED WITH LENS IMPLANTS, procedure to open a vein in left leg-couldn't confirm which leg, partial amputation rt hand middle finger, "procedure to remove cervical cancer" Past Anesthesia/Blood Transfusion Reactions: No Reported Reaction Past Psychological History: Anxiety, Bipolar, Depression, PTSD Smoking Status: Current every day smoker Past Alcohol Use History: Abuse, Daily, Heavy Past Drug Use History: Marijuana - Past Family History Father Family Medical History: Cancer, Prostate Disorder, Pulmonary Embolus Sister(s) Family Medical History: Cancer Brother(s) Family Medical History: Cancer Additional Family Medical History / Comment(s): colon and bladder General Exam - General Exam Comments Initial Comments: PHYSICAL EXAM: General Impression: Alert and oriented x3, not in acute distress HEENT: Normocephalic atraumatic, extra-ocular movements intact, pupils equal and reactive to light bilaterally, mucous membranes moist. Cardiovascular: Heart regular rate and rhythm Chest: Able to complete full sentences, no retractions, no tachypnea Abdomen: abdomen soft, non-tender, non-distended, no organomegaly Musculoskeletal: Pulses present and equal in all extremities, no peripheral edema Motor: no focal deficits noted Neurological: CN II-XII grossly intact, no focal motor or sensory deficits noted Skin: Intact with no visualized rashes Psych: Normal affect and mood Limitations: altered mental status Course Vital Signs 12/30/24 13:40 Temperature 98.2 F Pulse Rate 70 Respiratory 18 Rate Blood Pressure 142/99 O2 Sat by Pulse 98 Oximetry EKG Findings - EKG Comments: EKG Findings:: My EKG interpretation: Ventricular rate 65, sinus rhythm,. 178, QRS 89, QTc 420. No AK prolongation, no QTC prolongation, no ST or T-wave changes noted. EKG compared to December 08, 2024 showing no changes. Overall, this EKG is unremarkable Medical Decision Making - Medical Decision Making Was pt. sent in by a medical professional or institution (Dr., PA, CARDIOLOGY CONSULTANT, urgent care, hospital, or snf...) When possible be specific @ -No Did you speak to anyone other than the patient for history (EMS, parent, family, police, friend...)? What history was obtained from this source @ -No Did you review nursing and triage notes (agree or disagree)? Why? @ -I reviewed and agree with nursing and triage notes Were old charts reviewed (outside hosp., previous admission, EMS record, old EKG, old radiological studies, urgent care reports/EKG's, snf records)? Report findings @ -No old charts were reviewed Differential Diagnosis (chest pain, altered mental status, abdominal pain women, abdominal pain men, vaginal bleeding, musculoskeletal, weakness, fever, dyspnea, syncope, headache, dizziness, GI bleed, back pain, seizure, CVA, palpatations, mental health)? @ -Differential Chest Pain: Stable Angina, Unstable Angina, STEMI, NSTEMI Aortic Dissection, Pneumothorax, Musculoskeletal, Esophageal Spasm GERD, Cholecystitis, Pancreatitis, Zoster, this is not meant to be an all-inclusive list. EKG interpreted by me (3pts min.). @ -See above X-rays interpreted by me (1pt min.). @ -Chest x-ray is nonacute CT interpreted by me (1pt min.). @ -None done U/S interpreted by me (1pt. min.). @ -None done What testing was considered but not performed or refused? (CT, X-rays, U/S, labs)? Why? @ -None What meds were considered but not given or refused? Why? @ -None Was smoking cessation discussed for >3mins.? @ -No Were there social determinants of health that impacted care today? How? (Homelessness, low income, unemployed, alcoholism, drug addiction, transportation, low edu. Level, literacy, decrease access to med. care, shelter, rehab)? @ -No Was there de-escalation of care discussed even if they declined (Discuss DNR or withdrawal of care, Hospice)? DNR status @ -No What co-morbidities impacted this encounter? (DM, HTN, Smoking, COPD, CAD, Cancer, CVA, ARF, Chemo, Hep., AIDS, mental health diagnosis, sleep apnea, mo rbid obesity)? @ -None Was patient admitted / discharged? Hospital course, mention meds given and r oute, prescriptions, significant lab abnormalities, going to OR and other pertinent info. @ -58-year-old female chest pain alcohol toxic issue. Laboratory evaluation obtained. Labs unremarkable. Troponin is negative. Chest x-ray is nonacute. Patient discharged. Did you discuss the management of the patient with other professionals (professionals i.e. , PA, CARDIOLOGY CONSULTANT, lab, RT, psych nurse, geriatric social work professor, security screener, teacher, administrative hearing officer, employment case manager)? Give summary @ -No Was critical care preformed (if so, how long)? @ -No Undiagnosed new problem with uncertain prognosis? @ -No Drug Therapy requiring intensive monitoring for toxicity (Heparin, Nitro, Insulin, Cardizem)? @ -No Were any procedures done? @ -No Diagnosis/symptom? Acute, or Chronic, or Acute on Chronic? Uncomplicated (wi thout systemic symptoms) or Complicated (systemic symptoms)? @ -Chest pain, alcohol intoxication Side effects of treatment? @ -No Exacerbation, Progression, or Severe Exacerbation? @ -No Poses a threat to life or bodily function? How? (Chest pain, USA, [place], pneumonia, PE, COPD, DKA, ARF, appy, cholecystitis, CVA, Diverticulitis, Homicidal, Suicidal, threat to staff... and all critical care pts) @ -No - Lab Data Result diagrams: 12/30/24 14:18 12/30/24 15:12 Lab Results 12/30/24 12/30/24 12/30/24 Range/Units 14:18 14:18 15:12 WBC 5.27 (4.50-10.00) 10*3/uL RBC 4.25 (4.10-5.20) 10*6/uL Hgb 13.3 (12.0-15.0) g/dL Hct 38.5 (37.2-46.3) % MCV 90.6 (80.0-97.0) fL MCH 31.3 (27.0-32.0) pg MCHC 34.5 (32.0-37.0) g/dL Plt Count 210 (140-440) 10*3/uL MPV 9.4 L (9.5-12.2) fL Immature Gran % (Auto) 0.6 % Neutrophils % 37.2 % Lymphocytes % 43.8 % Monocytes % 16.5 % Eosinophils % 1.1 % Basophils % 0.8 % Immature Gran # 0.03 (0.00-0.04) 10*3/uL Neutrophils # 1.96 (1.80-7.70) 10*3/uL Lymphocytes # 2.31 (0.90-5.00) 10*3/uL Monocytes # 0.87 (0.20-1.00) 10*3/uL Eosinophils # 0.06 (0.04-0.35) 10*3/uL Basophils # 0.04 (0.00-0.10) 10*3/uL PT 9.8 L (10.0-12.5) sec INR 0.9 (<1.2) APTT 22.6 (22.0-30.0) sec Sodium (137-145) mmol/L Potassium (3.5-5.1) mmol/L Chloride (98-107) mmol/L Carbon Dioxide (22-30) mmol/L Anion Gap mmol/L BUN (7-17) mg/dL Creatinine (0.52-1.04) mg/dL Est GFR (CKD-EPI)AfAm (>60 ml/min/1.73 sqM) Est GFR (CKD-EPI)NonAf (>60 ml/min/1.73 sqM) Glucose (74-99) mg/dL Calcium (8.4-10.2) mg/dL Magnesium (1.6-2.3) mg/dL Total Bilirubin (0.2-1.3) mg/dL AST (14-36) U/L ALT (4-34) U/L Alkaline Phosphatase (38-126) U/L Troponin I 0.021 (0.000-0.034) ng/mL Total Protein (6.3-8.2) g/dL Albumin (3.5-5.0) g/dL 12/30/24 Range/Units 15:12 WBC (4.50-10.00) 10*3/uL RBC (4.10-5.20) 10*6/uL Hgb (12.0-15.0) g/dL Hct (37.2-46.3) % MCV (80.0-97.0) fL MCH (27.0-32.0) pg MCHC (32.0-37.0) g/dL Plt Count (140-440) 10*3/uL MPV (9.5-12.2) fL Immature Gran % (Auto) % Neutrophils % % Lymphocytes % % Monocytes % % Eosinophils % % Basophils % % Immature Gran # (0.00-0.04) 10*3/uL Neutrophils # (1.80-7.70) 10*3/uL Lymphocytes # (0.90-5.00) 10*3/uL Monocytes # (0.20-1.00) 10*3/uL Eosinophils # (0.04-0.35) 10*3/uL Basophils # (0.00-0.10) 10*3/uL PT (10.0-12.5) sec INR (<1.2) APTT (22.0-30.0) sec Sodium 138 (137-145) mmol/L Potassium 5.4 H (3.5-5.1) mmol/L Chloride 103 (98-107) mmol/L Carbon Dioxide 20 L (22-30) mmol/L Anion Gap 15 mmol/L BUN 2 L (7-17) mg/dL Creatinine 0.33 L (0.52-1.04) mg/dL Est GFR (CKD-EPI)AfAm >90 (>60 ml/min/1.73 sqM) Est GFR (CKD-EPI)NonAf >90 (>60 ml/min/1.73 sqM) Glucose 80 (74-99) mg/dL Calcium 9.5 (8.4-10.2) mg/dL Magnesium 1.7 (1.6-2.3) mg/dL Total Bilirubin 1.1 (0.2-1.3) mg/dL AST 69 H (14-36) U/L ALT 39 H (4-34) U/L Alkaline Phosphatase 90 (38-126) U/L Troponin I (0.000-0.034) ng/mL Total Protein 8.1 (6.3-8.2) g/dL Albumin 5.0 (3.5-5.0) g/dL Disposition Clinical Impression: Chest pain Disposition: HOME SELF-CARE Condition: Fair Instructions (If sedation given, give patient instructions): Alcohol Intoxication (ED) Is patient prescribed a controlled substance at d/c from ED?: No Referrals: Theodore Arceo MD [Primary Care Provider] - 1-2 days Time of Disposition: 16:40
[2024-12-30 14:22] LABS: Basophils # (A) 0.04 10*3/uL (0.00-0.10); Basophils % (A) 0.8 %; Eosinophils # (A) 0.06 10*3/uL (0.04-0.35); Eosinophils % (A) 1.1 %; HCT 38.5 % (37.2-46.3); HGB 13.3 g/dL (12.0-15.0); Lymphocytes # (A) 2.31 10*3/uL (0.90-5.00); Lymphocytes % (A) 43.8 %; MCH 31.3 pg (27.0-32.0); MCHC 34.5 g/dL (32.0-37.0); MCV 90.6 fL (80.0-97.0); Monocytes # (A) 0.87 10*3/uL (0.20-1.00); Monocytes % (A) 16.5 %; Neutrophils # (A) 1.96 10*3/uL (1.80-7.70); Neutrophils % (A) 37.2 %; Platelet Count 210 10*3/uL (140-440); RBC 4.25 10*6/uL (4.10-5.20); RDW 15.9 % (11.5-14.5); WBC 5.27 10*3/uL (4.50-10.00)
[2024-12-30 14:32] LABS: INR 0.9 (<1.2); Partial Thromboplastin Time 22.6 sec (22.0-30.0); Prothrombin Time 9.8 sec (10.0-12.5)
[2024-12-30 15:56] LABS: ALT 39 U/L (4-34); African American GFR (CKD) >90 (>60 ml/min/1.73 sqM); Albumin 5.0 g/dL (3.5-5.0); Anion Gap 15 mmol/L; Blood Urea Nitrogen 2 mg/dL (7-17); Calcium 9.5 mg/dL (8.4-10.2); Carbon Dioxide 20 mmol/L (22-30); Chloride 103 mmol/L (98-107); Glucose 80 mg/dL (74-99); Non-African American GFR(CKD) >90 (>60 ml/min/1.73 sqM); Sodium 138 mmol/L (137-145); Total Protein 8.1 g/dL (6.3-8.2)
[2024-12-30 16:08] LABS: AST 69 U/L (14-36); Alkaline Phosphatase 90 U/L (38-126); Magnesium 1.7 mg/dL (1.6-2.3); Potassium 5.4 mmol/L (3.5-5.1)
--- NOTE | 2024-12-30 16:39 | XR ---
EXAMINATION TYPE: XR chest 2V DATE OF EXAM: 12/30/2024 4:33 PM COMPARISON: Chest radiograph 11/25/2024. CLINICAL INDICATION: Female, 58 years old with history of Chest Pain; [facility] TECHNIQUE: XR chest 2V Frontal and lateral views of the chest. FINDINGS: Lungs/Pleura: There is no evidence of pleural effusion, focal consolidation, or pneumothorax. Pulmonary vascularity: Unremarkable. Heart/mediastinum: Cardiomediastinal silhouette is unremarkable. Musculoskeletal: No acute osseous pathology. Other findings: None IMPRESSION: No acute cardiopulmonary disease/process. [facility], , 12/30/2024 4:37 PM
[2024-12-30 16:49] VITALS: BP 135/84; PULSE 64
== END 2024-12-30 16:49 | disposition home or self-care (01) ==
LOC: EC 13:36
DX: R07.9 Chest pain, unspecified (principal); F17.200 Nicotine dependence, unspecified, uncomplicated; Z88.0 Allergy status to penicillin; Z88.6 Allergy status to analgesic agent; Z88.8 Allergy status to other drugs, medicaments and biological substances; Y90.9 Presence of alcohol in blood, level not specified
CPT/HCPCS: 36415; 71046; 80053; 83735; 84484; 85025; 85610; 85730; 93005; 99284

== ENCOUNTER 2025-01-01 22:59 | Emergency (ER) | payer OTHER ==
--- NOTE | 2025-01-01 23:05 | ED ---
Alcohol HPI - General Stated Complaint: ETOH Time Seen by Provider: 01/01/25 23:00 Source: RN notes reviewed, old records reviewed Mode of arrival: EMS Limitations: altered mental status - History of Present Illness Initial Comments: This is a 59-year-old female coming in for anxiety states she is going to rehab mild concern for stopping drinking, no chest pain or shortness of breath currently. 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) Previous Visits for Alcohol Intoxication?: Yes Recent Trauma: Yes Associated Symptoms: denies other symptoms Treatments Prior to Arrival: none Chronic Alcohol Use: Yes - Related Data Home Medications Medication Instructions Recorded Confirmed levETIRAcetam [Keppra] 500 mg PO BID 11/18/24 11/18/24 Allergies Allergy/AdvReac Type Severity Reaction Status Date / Time acetaminophen [From Tylenol] Allergy Unknown Verified 12/26/24 14:46 Penicillins Allergy Rash/Hives/Swelling Verified 12/26/24 14:46 all over body NSAIDS (Non-Steroidal AdvReac Unknown upset Verified 12/26/24 14:46 Anti-Inflamma stomach sertraline HCl [From Zoloft] AdvReac Suicidal/Ag Verified 12/26/24 14:46 ression Review of Systems ROS Statement: Those systems with pertinent positive or pertinent negative responses have been documented in the HPI. ROS Other: All systems not noted in ROS Statement are negative. Past Medical History Past Medical History: Cancer, COPD, Hypertension, Liver Disease, Myocardial Infarction ([place]), Seizure Disorder, Vascular Disorder Additional Past Medical History / Comment(s): constpation, feeling bloated,feeling of fullness, and abdominal pain, feels hungry then over eats then vomits to feel better, LAST SEIZURE - JANUARY 2021, "broken heart syndrome"., elevated liver enzymes, "dislocated disks", hx cervical cancer, etoh abuse Last Myocardial Infarction Date:: 2019 History of Any Multi-Drug Resistant Organisms: None Reported Past Surgical History: Section, Heart Catheterization, Tubal Ligation Additional Past Surgical History / Comment(s): ORIF rt ankle/hardware later removed, exploratory lap, PAIN CLINIC PROCEDURE, BILAT CATARACTS REMOVED WITH LENS IMPLANTS, procedure to open a vein in left leg-couldn't confirm which leg, partial amputation rt hand middle finger, "procedure to remove cervical cancer" Past Anesthesia/Blood Transfusion Reactions: No Reported Reaction Past Psychological History: Anxiety, Bipolar, Depression, PTSD Smoking Status: Current every day smoker Past Alcohol Use History: Abuse, Daily, Heavy Past Drug Use History: Marijuana - Past Family History Father Family Medical History: Cancer, Prostate Disorder, Pulmonary Embolus Sister(s) Family Medical History: Cancer Brother(s) Family Medical History: Cancer Additional Family Medical History / Comment(s): colon and bladder General Exam General appearance: appears intoxicated Head exam: Present: atraumatic, normocephalic, normal inspection Eye exam: Present: normal appearance, PERRL, EOMI. Absent: scleral icterus, conjunctival injection, periorbital swelling ENT exam: Present: normal exam, mucous membranes moist Neck exam: Present: normal inspection. Absent: tenderness, meningismus, lymphadenopathy Respiratory exam: Present: normal lung sounds bilaterally. Absent: respiratory distress, wheezes, rales, rhonchi, stridor Cardiovascular Exam: Present: regular rate, normal rhythm, normal heart sounds. Absent: systolic murmur, diastolic murmur, rubs, gallop, clicks GI/Abdominal exam: Present: soft, normal bowel sounds. Absent: distended, tenderness, guarding, rebound, rigid Extremities exam: Present: normal inspection, full ROM, normal capillary refill. Absent: tenderness, pedal edema, joint swelling, calf tenderness Back exam: Present: normal inspection Neurological exam: Present: alert, oriented X3, CN II-XII intact Psychiatric exam: Present: normal affect, normal mood Skin exam: Present: warm, dry, intact, normal color. Absent: rash Course Vital Signs 01/01/25 23:07 Temperature 97.7 F Pulse Rate 101 H Respiratory 17 Rate Blood Pressure 113/84 O2 Sat by Pulse 96 Oximetry - Reevaluation(s) Reevaluation #1: 01/01/25 23:35 Medical records reviewed Reevaluation #2: 01/01/25 23:35 Patient symptoms improved here in the ER Reevaluation #3: 01/01/25 23:35 Patient informed of results questions answered Reevaluation #4: Was pt. sent in by a medical professional or institution (, PA, SUPPLY CHAIN DESIGN MANAGER, urgent care, hospital, or [facility]...) When possible be specific @ -no Did you speak to anyone other than the patient for history (EMS, parent, family, police, friend...)? What history was obtained from this source @ -no Did you review nursing and triage notes (agree or disagree)? Why? @ -agree Are old charts reviewed (outside hosp., previous admission, EMS record, old EKG, old radiological studies, urgent care reports/EKG's, [facility] records)? Report findings @ -yes Differential Diagnosis (chest pain, altered mental status, abdominal pain women, abdominal pain men, vaginal bleeding, weakness, fever, dyspnea, syncope, headache, dizziness, GI bleed, back pain, seizure, CVA, palpatations, mental health, musculoskeletal)? @ -prior EKG interpreted by me (3pts min.). @ -yes X-rays interpreted by me (1pt min.). @ -yes negative for acute disease CT interpreted by me (1pt min.). @ -no U/S interpreted by me (1pt. min.). @ -no What testing was considered but not performed or refused? (CT, X-rays, U/S, labs)? Why? @ -none What meds were considered but not given or refused? Why? @ -none Did you discuss the management of the patient with other professionals (professionals i.e. , PA, SUPPLY CHAIN DESIGN MANAGER, lab, RT, psych nurse, health care social worker, rim fire charger operator, teacher, corporation officer, medical case manager)? Give summary @ -no Was smoking cessation discussed for >3mins.? @ -no Was critical care preformed (if so, how long)? @ -no Were there social determinants of health that impacted care today? How? (Homelessness, low income, unemployed, alcoholism, drug addiction, transportation, low edu. Level, literacy, decrease access to med. care, longterm, rehab)? @ -none Was there de-escalation of care discussed even if they declined (Discuss DNR or withdrawal of care, Hospice)? DNR status @ -no What co-morbidities impacted this encounter? (DM, HTN, Smoking, COPD, CAD, Cancer, CVA, ARF, Chemo, Hep., AIDS, mental health diagnosis, sleep apnea, morbid obesity)? @ -none Was patient admitted / discharged? Hospital course, mention meds given and route, prescriptions, significant lab abnormalities, going to OR and other pertinent info. @ - Undiagnosed new problem with uncertain prognosis? @ -no Drug Therapy requiring intensive monitoring for toxicity (Heparin, Nitro, Insulin, Cardizem)? @ -no Were any procedures done? @ -no Diagnosis/symptom? @ - Acute, or Chronic, or Acute on Chronic? @ -Acute Uncomplicated (without systemic symptoms) or Complicated (systemic symptoms)? @ -Complicated Side effects of treatment? @ -no Exacerbation, Progression, or Severe Exacerbation? @ -exacerbation Poses a threat to life or bodily function? How? (Chest pain, [place], [place], pneumonia, PE, COPD, DKA, ARF, appy, cholecystitis, CVA, Diverticulitis, Homicidal, Suicidal, threat to staff... and all critical care pts) @ -yes Reevaluation #5: Differential Altered Mental Status: Hypoglycemia, DKA, hypercapnia, ETOH, overdose, CO poisoning, trauma, myxedema coma, HTN encephalopathy, infection, encephalitis, psychosis, intercranial hemorrhage, hepatic encephalopathy, meningitis, CVA, this is not meant to be an all-inclusive list Medical Decision Making - Medical Decision Making 59 female to ER for alcohol intoxication, concern for alcohol withdrawal, no signs of acute withdrawal here in the ER patient can be discharged home Disposition Clinical Impression: Alcohol abuse, Alcohol intoxication Disposition: HOME SELF-CARE Condition: Fair Instructions (If sedation given, give patient instructions): Alcohol Intoxication (ED) Is patient prescribed a controlled substance at d/c from ED?: No Referrals: Theodore Arceo MD [Primary Care Provider] - 1-2 days Time of Disposition: 23:55
[2025-01-02 00:36] VITALS: BP 118/79; PULSE 96; RESP 19; TEMP 97.8
== END 2025-01-02 00:36 | disposition home or self-care (01) ==
LOC: EC 22:59
DX: F10.129 Alcohol abuse with intoxication, unspecified (principal); F17.200 Nicotine dependence, unspecified, uncomplicated; Z88.6 Allergy status to analgesic agent; Z88.0 Allergy status to penicillin; Z88.8 Allergy status to other drugs, medicaments and biological substances
CPT/HCPCS: 99284

== ENCOUNTER 2025-01-04 03:28 | Emergency (ER) | payer OTHER ==
[2025-01-04 03:37] VITALS: RESP 18
[2025-01-04] MEDS: ONDANSETRON ODT 4 MG TAB PO STA (04:39)
[2025-01-04] MEDS: LORazepam 1 MG TAB PO STA (04:39)
[2025-01-04] MEDS: FAMOTIDINE 20 MG TAB PO STA (04:39)
--- NOTE | 2025-01-04 04:47 | ED ---
General Adult HPI - General Chief complaint: Nausea/Vomiting/Diarrhea Stated complaint: Withdrawal Time Seen by Provider: 01/04/25 03:37 Source: patient, EMS Mode of arrival: EMS Limitations: no limitations - History of Present Illness Initial comments: This patient is a 59-year-old woman with history of chronic alcohol use and history of previous seizures. She presents with the complaint that she is not feeling well. She states that she had been drinking. She is having some nausea, vomiting, and some burning epigastric discomfort. She states she was unable to keep down her Keppra. The patient states she plans to go to rehab tomorrow and would like some medication to feel better. -: hour(s) Location: abdomen Quality: burning Consistency: constant Improves with: none Worsens with: none Associated Symptoms: nausea/vomiting, other (Anxiety) - Related Data Home Medications Medication Instructions Recorded Confirmed levETIRAcetam [Keppra] 500 mg PO BID 11/18/24 11/18/24 Allergies Allergy/AdvReac Type Severity Reaction Status Date / Time acetaminophen [From Tylenol] Allergy Unknown Verified 01/03/25 20:56 Penicillins Allergy Rash/Hives/Swelling Verified 01/03/25 20:56 all over body NSAIDS (Non-Steroidal AdvReac Unknown upset Verified 01/03/25 20:56 Anti-Inflamma stomach sertraline HCl [From Zoloft] AdvReac Suicidal/Ag Verified 01/03/25 20:56 ression Review of Systems ROS Statement: Those systems with pertinent positive or pertinent negative responses have been documented in the HPI. ROS Other: All systems not noted in ROS Statement are negative. Constitutional: Denies: fever, chills, weakness Eyes: Denies: vision change Respiratory: Denies: cough, dyspnea Cardiovascular: Denies: chest pain, palpitations, edema Gastrointestinal: Reports: abdominal pain, nausea, vomiting. Denies: diarrhea, constipation, hematemesis, melena, hematochezia Genitourinary: Denies: dysuria Musculoskeletal: Denies: back pain Skin: Denies: rash Neurological: Denies: headache, weakness, numbness Psychiatric: Reports: anxiety. Denies: depression, suicidal thoughts Past Medical History Past Medical History: Cancer, COPD, Hypertension, Liver Disease, Myocardial Infarction ([place]), Seizure Disorder, Vascular Disorder Additional Past Medical History / Comment(s): constpation, feeling blo ated,feeling of fullness, and abdominal pain, feels hungry then over eats then vomits to feel better, LAST SEIZURE - JANUARY 2021, "broken heart syndrome"., elevated liver enzymes, "dislocated disks", hx cervical cancer, etoh abuse Last Myocardial Infarction Date:: 2019 History of Any Multi-Drug Resistant Organisms: None Reported Past Surgical History: Section, Heart Catheterization, Tubal Ligation Additional Past Surgical History / Comment(s): ORIF rt ankle/hardware later removed, exploratory lap, PAIN CLINIC PROCEDURE, BILAT CATARACTS REMOVED WITH LENS IMPLANTS, procedure to open a vein in left leg-couldn't confirm which leg, partial amputation rt hand middle finger, "procedure to remove cervical cancer" Past Anesthesia/Blood Transfusion Reactions: No Reported Reaction Past Psychological History: Anxiety, Bipolar, Depression, PTSD Smoking Status: Current every day smoker Past Alcohol Use History: Abuse, Daily, Heavy Past Drug Use History: Marijuana - Past Family History Father Family Medical History: Cancer, Prostate Disorder, Pulmonary Embolus Sister(s) Family Medical History: Cancer Brother(s) Family Medical History: Cancer Additional Family Medical History / Comment(s): colon and bladder General Exam Limitations: no limitations General appearance: alert, in no apparent distress, anxious Head exam: Present: atraumatic, normocephalic Eye exam: Present: normal appearance. Absent: scleral icterus, conjunctival injection, nystagmus ENT exam: Present: normal oropharynx Neck exam: Present: normal inspection, full ROM Respiratory exam: Present: normal lung sounds bilaterally. Absent: respiratory distress, wheezes, rales, rhonchi, stridor, accessory muscle use Cardiovascular Exam: Present: regular rate, normal rhythm, normal heart sounds. Absent: systolic murmur, diastolic murmur, rubs, gallop GI/Abdominal exam: Present: soft. Absent: distended, tenderness, guarding, rebound, rigid, mass Extremities exam: Present: normal inspection, normal capillary refill. Absent: pedal edema, calf tenderness Back exam: Present: normal inspection. Absent: CVA tenderness (R), CVA tenderness (L) Neurological exam: Present: alert Psychiatric exam: Present: anxious. Absent: suicidal ideation Skin exam: Present: warm, dry, intact, normal color. Absent: rash Course Vital Signs 01/04/25 01/04/25 03:33 05:27 Temperature 98.4 F 98.3 F Pulse Rate 95 78 Respiratory 18 18 Rate Blood Pressure 156/86 151/90 O2 Sat by Pulse 97 97 Oximetry Medical Decision Making - Medical Decision Making Was pt. sent in by a medical professional or institution (, BENI, PLASTIC SURGERY COORDINATOR, urgent care, hospital, or snf...) When possible be specific @ -[No] Did you speak to anyone other than the patient for history (EMS, parent, family, police, friend...)? What history was obtained from this source @ -[No] Did you review nursing and triage notes (agree or disagree)? Why? @ -[I reviewed and agree with nursing and triage notes] Were old charts reviewed (outside hosp., previous admission, EMS record, old EKG, old radiological studies, urgent care reports/EKG's, snf records)? Report findings @ -[No old charts were reviewed] Differential Diagnosis (chest pain, altered mental status, abdominal pain women, abdominal pain men, vaginal bleeding, weakness, fever, dyspnea, syncope, headache, dizziness, GI bleed, back pain, seizure, CVA, palpatations, mental health, musculoskeletal)? @ -[Differential Mental Health Depression, anxiety, bipolar, psychosis, schizophrenia, borderline personality, situational depression, adjustment disorder, behavioral disorder, brain tumor, malingering, substance abuse, encephalopathy, medication reaction, dementia, hypothyroidism, degenerative neurologic disorder, lupus.... This is not meant to be all-inclusive list EKG interpreted by me (3pts min.). @ -[As above] X-rays interpreted by me (1pt min.). @ -[None done] CT interpreted by me (1pt min.). @ -[None done] U/S interpreted by me (1pt. min.). @ -[None done] What testing was considered but not performed or refused? (CT, X-rays, U/S, labs)? Why? @ -[None] What meds were considered but not given or refused? Why? @ -[None] Did you discuss the management of the patient with other professionals (professionals i.e. BENI Dill, PLASTIC SURGERY COORDINATOR, lab, RT, psych nurse, renal social worker, roll former, teacher, chief resource officer, upper caser)? Give summary @ -[No] Was smoking cessation discussed for >3mins.? @ -[No] Was critical care preformed (if so, how long)? @ -[No] Were there social determinants of health that impacted care today? How? (Homelessness, low income, unemployed, alcoholism, drug addiction, transportation, low edu. Level, literacy, decrease access to med. care, correction, rehab)? @ -[No] Was there de-escalation of care discussed even if they declined (Discuss DNR or withdrawal of care, Hospice)? DNR status @ -[No] What co-morbidities impacted this encounter? (DM, HTN, Smoking, COPD, CAD, Cancer, CVA, ARF, Chemo, Hep., AIDS, mental health diagnosis, sleep apnea, morbid obesity)? @ -[None] Was patient admitted / discharged? Hospital course, mention meds given and route, prescriptions, significant lab abnormalities, going to OR and other pertinent info. @ -[Patient is a 59-year-old woman here with a constellation of complaints related to drinking. She clinically appears to have element of gastritis. She is given medication for nausea, vomiting and she also was given dose of her anticonvulsant medicine. She tolerated these and was feeling somewhat better. Patient discharged to go to alcohol rehabilitation tomorrow as she plans Undiagnosed new problem with uncertain prognosis? @ -[No] Drug Therapy requiring intensive monitoring for toxicity (Heparin, Nitro, Insulin, Cardizem)? @ -[No] Were any procedures done? @ -[No] Diagnosis/symptom? @ -[Alcohol abuse , chronic acute gastritis Acute, or Chronic, or Acute on Chronic? @ -[Acute Uncomplicated (without systemic symptoms) or Complicated (systemic symptoms)? @ -Uncomplicated Side effects of treatment? @ -[No] Exacerbation, Progression, or Severe Exacerbation? @ -[No] Poses a threat to life or bodily function? How? (Chest pain, [place], [place], pneumonia, PE, COPD, DKA, ARF, appy, cholecystitis, CVA, Diverticulitis, Homicidal, Suicidal, threat to staff... and all critical care pts) @ -[No] All treatments are based on ideal body weight as in ED triage Disposition Clinical Impression: Alcohol withdrawal Disposition: HOME SELF-CARE Condition: Fair Instructions (If sedation given, give patient instructions): Alcohol Withdrawal (ED) Is patient prescribed a controlled substance at d/c from ED?: No Referrals: Theodore Arceo MD [STAFF PHYSICIAN] - 1-2 days
[2025-01-04] MEDS: levETIRAcetam 500 MG TAB PO STA (05:26)
[2025-01-04 05:29] VITALS: BP 151/90; PULSE 78; TEMP 98.3
== END 2025-01-04 05:43 | disposition home or self-care (01) ==
LOC: EC 03:28
DX: F10.939 Alcohol use, unspecified with withdrawal, unspecified (principal); F17.200 Nicotine dependence, unspecified, uncomplicated; Z88.0 Allergy status to penicillin; Z88.6 Allergy status to analgesic agent; Z88.8 Allergy status to other drugs, medicaments and biological substances; Y90.9 Presence of alcohol in blood, level not specified
CPT/HCPCS: 99284